=== PATIENT | male | born 1955 | race Caucasian/White ===

== ENCOUNTER 2019-11-06 08:37 | Emergency (ER) | payer SELFPAY ==
[2019-11-06] MEDS ORDERED: IPRATROPIUM BROM 0.5MG/2.5ML ONE (09:12)
[2019-11-06] MEDS ORDERED: METHYLPREDNISOLONE 40 MG INJ ONE (09:12)
[2019-11-06] MEDS ORDERED: ALBUTEROL 2.5 MG/3 ML NEB SOL ONE (09:12)
[2019-11-06 09:13] LABS: Absolute Lymphocytes (CBC) 1.4 K/uL (0.7-4.9); Basophils % 0.8 % (0-1.3); Hematocrit 47.2 % (39.6-49.0); Lymphocytes % 19.1 % (15.3-44.8); MPV 7.5 fL (7.6-11.3); RBC Red Blood Cell Count 4.44 M/uL (4.33-5.43)
--- NOTE | 2019-11-06 09:26 | RAD REPORT ---
EXAM DESCRIPTION: RAD - Chest Single View - 11/06/2019 9:17 am CLINICAL HISTORY: SOB Chest pain. COMPARISON: CHEST PA AND LAT 2 VIEW dated 12/08/2010; CHEST PA AND LAT 2 VIEW dated 08/25/2004 FINDINGS: Portable technique limits examination quality. Increased left basilar lung opacities are present suspicious for infiltrate/ pneumonia. The heart is normal in size. No displaced fractures.Followup films until clear is recommended.
[2019-11-06 09:38] LABS: ALT/SGPT 23 U/L (12-78); AST/SGOT 19 U/L (15-37); Albumin 3.7 g/dL (3.4-5.0); Alkaline Phosphatase 77 U/L (45-117); BUN Blood Urea Nitrogen 6 mg/dL (7-18); Bicarbonate 28 mmol/L (21-32); Bilirubin Direct 0.2 mg/dL (0-0.2); Bilirubin Total 0.5 mg/dL (0.2-1.0); Glucose Level 93 mg/dL (74-106); Magnesium 2.2 mg/dL (1.8-2.4); NT PRO-BNP 504 pg/mL (<125); Potassium 4.1 mmol/L (3.5-5.1); Protein, Total 7.1 g/dL (6.4-8.2); Sodium Level 136 mmol/L (136-145); Troponin (Emerg Dept Use Only) < 0.02 ng/mL (0.0-0.045)
--- NOTE | 2019-11-06 11:23 | EDPHYS ---
Physician Documentation [facility] Name: Randolph Mckeon Age: 64 yrs Sex: Male : 1955 Arrival Date: 11/06/2019 Time: 08:40 Bed 5 Private MD: Bill Leal ED Physician Severo Nielsen HPI: 11/05 08:55 This 64 yrs old Male presents to ER via Ambulatory with complaints of cp Breathing Difficulty. 08:55 The patient has shortness of breath at rest, with light activity. cp 08:55 Onset: The symptoms/episode began/occurred 3 month(s) ago. cp 08:55 Duration: The symptoms are intermittent. cp 08:55 The patient's shortness of breath is aggravated by exertion. Associated signs and cp symptoms: Pertinent negatives: chest pain, productive cough, diaphoresis, fever, hemoptysis, vomiting. Severity of symptoms: in the emergency department the symptoms are unchanged despite home interventions. Historical: - Allergies: 08:52 No Known Allergies; iw - Home Meds: 08:52 None [Active]; iw - PMHx: 08:52 None; iw - PSHx: 08:52 left foot; Hernia repair; iw - Immunization history:: Adult Immunizations not up to date. - Social history:: Smoking status: Patient reports the use of cigarette tobacco products, smokes one pack cigarettes per day. ROS: 09:00 Constitutional: Negative for body aches, chills, fever, poor PO intake. cp 09:00 Eyes: Negative for injury, pain, redness, and discharge. cp 09:00 Cardiovascular: Negative for chest pain, edema, palpitations. cp 09:00 Respiratory: Positive for shortness of breath, at rest. Negative for cough, hemoptysis, wheezing. 09:00 ENT: Negative for drainage from ear(s), ear pain, sore throat, difficulty swallowing, cp difficulty handling secretions. 09:00 Abdomen/GI: Negative for abdominal pain, nausea, vomiting, and diarrhea, constipation, black/tarry stool, rectal bleeding. 09:00 Back: Negative for pain at rest, pain with movement, radiated pain. 09:00 : Negative for urinary symptoms. 09:00 Skin: Negative for rash. 09:00 Neuro: Negative for altered mental status, dizziness, headache, syncope, weakness. 09:00 All other systems are negative. Exam: 09:05 Constitutional: The patient appears in no acute distress, alert, awake, cp non-diaphoretic, non-toxic, well developed, well nourished. 09:05 Head/Face: Normocephalic, atraumatic. cp 09:05 Eyes: Periorbital structures: appear normal, Conjunctiva: normal, no exudate, no injection, Sclera: no appreciated abnormality, Lids and lashes: appear normal, bilaterally. 09:05 ENT: External ear(s): are unremarkable, Ear canal(s): are normal, clear, TM's: bulging, is not appreciated, bilaterally, dullness, bilaterally, erythema, is not appreciated, bilaterally, Nose: is normal, Mouth: Lips: moist, Oral mucosa: moist, Posterior pharynx: is normal, airway is patent, no erythema, no exudate. 09:05 Neck: ROM/movement: is normal, is supple, without pain, no range of motions limitations, no nuchal rigidity. 09:05 Chest/axilla: Inspection: normal, Palpation: is normal, no crepitus, no tenderness. 09:05 Cardiovascular: Rate: normal, Rhythm: regular, Heart sounds: murmur, not appreciated, Edema: is not appreciated, JVD: is not appreciated. 09:05 Respiratory: the patient does not display signs of respiratory distress, Respirations: normal, no use of accessory muscles, no retractions, labored breathing, is not present, Breath sounds: decreased breath sounds, that are mild, throughout, stridor, is not appreciated, wheezing: that is mild, is heard diffusely. 09:05 Abdomen/GI: Inspection: abdomen appears normal, Palpation: abdomen is soft and non-tender, in all quadrants. 09:05 Back: pain, is absent, ROM is normal. 09:05 Skin: no rash present. 09:05 Neuro: Orientation: to person, place \T\ time. Mentation: is normal, Cerebellar function: is grossly normal, Motor: moves all fours, strength is normal, Sensation: is normal. 10:13 ECG was reviewed by the Attending Physician. cp Vital Signs: 08:50 BP 174 / 95; Pulse 97; Resp 18 S; Temp 98.2; Pulse Ox 100% on R/A; Weight 81.65 kg; iw Height 5 ft. 11 in. (180.34 cm); Pain 0/10; 09:33 BP 168 / 94; Pulse 92; Resp 16; Pulse Ox 96% on R/A; hb 10:10 BP 163 / 91; Pulse 95; Resp 18; Pulse Ox 95% on R/A; bp 11:04 BP 152 / 89; Pulse 96; Resp 17; Pulse Ox 94% ; bp 11:37 BP 159 / 86; Pulse 100; Resp 17; Temp 98.5; Pulse Ox 94% ; bp 08:50 Body Mass Index 25.10 (81.65 kg, 180.34 cm) iw MDM: 08:48 Patient medically screened. cp 09:00 Differential diagnosis: asthma, Bronchitis CHF exacerbation, Chronic Obstructive cp Pulmonary Disease pneumonia, Pneumothorax pulmonary edema, Pulmonary Embolism Unstable Angina. 11:21 Data reviewed: vital signs, nurses notes, lab test result(s), EKG, radiologic studies, cp plain films, and as a result, I will discharge patient. 11:21 Test interpretation: by ED physician or midlevel provider: ECG. 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 11:21 Response to treatment: the patient's symptoms have markedly improved after treatment, cp and as a result, I will discharge patient. 11/05 08:52 Order name: Basic Metabolic Panel; Complete Time: 09:48 cp 11/05 09:48 Interpretation: Normal except: BUN 6; GFR 89. cp 11/05 08:52 Order name: CBC with Diff cp 11/05 09:48 Interpretation: Normal except: MCV 106.3; MCH 36.4; MPV 7.5. cp 11/05 08:52 Order name: LFT's; Complete Time: 09:48 cp 11/05 08:52 Order name: Magnesium; Complete Time: 09:48 cp 11/05 08:52 Order name: NT PRO-BNP; Complete Time: 09:48 cp 11/05 09:48 Interpretation: Abnormal: NT PRO-BNP 504. 11/05 08:52 Order name: Troponin (emerg Dept Use Only); Complete Time: 09:48 cp 11/05 09:48 Interpretation: TROPED < 0.02; Reviewed. 11/05 08:52 Order name: XRAY Chest (1 view); Complete Time: 09:59 cp 11/05 08:52 Order name: EKG; Complete Time: 08:53 cp 11/05 08:52 Order name: Cardiac monitoring; Complete Time: 09:04 cp 11/05 08:52 Order name: EKG - Nurse/Tech; Complete Time: 10:10 cp 11/05 08:52 Order name: IV Saline Lock; Complete Time: 09:14 cp 11/05 10:16 Order name: D-Dimer; Complete Time: 11:15 cp 11/05 11:15 Interpretation: Reviewed. 11/05 08:52 Order name: Labs collected and sent; Complete Time: 09:14 11/05 08:52 Order name: O2 Per Protocol; Complete Time: 09:04 cp 11/05 08:52 Order name: O2 Sat Monitoring; Complete Time: 09:04 cp EC:13 Rate is 93 beats/min. Rhythm is regular. TN interval is normal. QRS interval is normal. cp QT interval is normal. Interpreted by me. Reviewed by me. Administered Medications: 09:10 Drug: Albuterol - atroVENT (3:1) (2.5 mg - 0.5 mg) 3 ml Route: Nebulizer; bp 10:09 Follow up: Response: Marked relief of symptoms bp 09:10 Drug: SOLU-Medrol 80 mg Route: IVP; Site: right forearm; bp 10:09 Follow up: Response: No adverse reaction bp Disposition: 14:13 Co-signature as Attending Physician, Severo Nielsen MD. rn Disposition: 11/06/19 11:22 Discharged to Home. Impression: Shortness of breath. - Condition is Stable. - Discharge Instructions: Shortness of Breath, Aspirin and Your Heart. - Prescriptions for Prednisone 20 mg Oral Tablet - take 2 tablet by ORAL route once daily for 5 days; 10 tablet. Zithromax Z- Se 250 mg Oral Tablet - take 1 tablet by ORAL route as directed for 5 days Day 1 - take two (2) tablets one time. Day 2, 3, 4 , 5 take one (1) tablet once daily.; 6 tablet. Albuterol Sulfate 90 mcg/actuation - inhale 1-2 puff by INHALATION route every 4-6 hours; 1 Inhaler. - Medication Reconciliation Form, Thank You Letter, Antibiotic Education, Prescription Opioid Use form. - Follow up: Bill Leal MD; When: 2 - 3 days; Reason: Recheck today's complaints. - Problem is new. - Symptoms have improved. Signatures: Dispatcher [employer] EDLeela Cartwright, RN RN iw Severo Nielsen MD MD rn Eligio Thomas PA PA cp Sanchez Sweet RN RN bp Corrections: (The following items were deleted from the chart) 10:00 09:57 Test interpretation: by ED physician or midlevel provider: plain radiologic cp studies, chest xray negative for infiltrates, cp 11:39 11:22 11/06/2019 11:22 Discharged to Home. Impression: Shortness of breath. Condition bp is Stable. Forms are Medication Reconciliation Form, Thank You Letter, Antibiotic Education, Prescription Opioid Use. Follow up: Bill Leal; When: 2 - 3 days; Reason: Recheck today's complaints. Problem is new. Symptoms have improved. cp
--- NOTE | 2019-11-06 11:23 | ER ---
Nurse's Notes [facility] Name: Randolph Mckeon Age: 64 yrs Sex: Male : 1955 Arrival Date: 11/06/2019 Time: 08:40 Bed 5 Private MD: Bill Leal Diagnosis: Shortness of breath Presentation: 11/05 08:50 Chief complaint: Patient states: has had diff breathing for 3 months, smokes 1 ppd, no iw hx of COPD, +cough, no fever. Coronavirus screen: The patient has NOT traveled to a country currently being monitored by the [facility] within the last 14 days. Proceed with normal triage procedures. The patient has NOT had contact with any known and/or suspected case of coronavirus. Proceed with normal triage procedures. Ebola Screen: Patient negative for fever greater than or equal to 101.5 degrees Fahrenheit, and additional compatible Ebola Virus Disease symptoms Patient denies exposure to infectious person. Patient denies travel to an Ebola-affected area in the 21 days before illness onset. No symptoms or risks identified at this time. Initial Sepsis Screen: Does the patient meet any 2 criteria? No. Patient's initial sepsis screen is negative. Does the patient have a suspected source of infection? No. Patient's initial sepsis screen is negative. Risk Assessment: Do you want to hurt yourself or someone else? Patient reports no desire to harm self or others. 08:50 Method Of Arrival: Ambulatory iw 08:50 Acuity: YANNICK 3 iw Triage Assessment: 08:50 General: Appears in no apparent distress. comfortable, Behavior is cooperative, bp appropriate for age, anxious. Pain: Denies pain. EENT: No deficits noted. Neuro: No deficits noted. Cardiovascular: No deficits noted. Respiratory: Reports shortness of breath Airway is patent Respiratory effort is even, unlabored, Onset: The symptoms/episode began/occurred at an unknown time. the patient has mild shortness of breath. GI: No signs and/or symptoms were reported involving the gastrointestinal system. : No signs and/or symptoms were reported regarding the genitourinary system. Derm: No deficits noted. Musculoskeletal: No deficits noted. Historical: - Allergies: 08:52 No Known Allergies; iw - Home Meds: 08:52 None [Active]; iw - PMHx: 08:52 None; iw - PSHx: 08:52 left foot; Hernia repair; iw - Immunization history:: Adult Immunizations not up to date. - Social history:: Smoking status: Patient reports the use of cigarette tobacco products, smokes one pack cigarettes per day. Screenin:02 Abuse screen: Denies threats or abuse. Denies injuries from another. Nutritional hb screening: No deficits noted. Tuberculosis screening: No symptoms or risk factors identified. Fall Risk None identified. Assessment: 08:50 General: SEE TRIAGE NOTE. Cardiovascular: Rhythm is sinus rhythm. Respiratory: Airway bp is patent Respiratory effort is even, unlabored, Respiratory pattern is regular, symmetrical, Breath sounds are coarse bilaterally. 10:10 Reassessment: ALL CURRENT ORDERS COMPLETED, NO ACUTE S/S NOTED AT THIS TIME. bp 10:25 Reassessment: ADD'L LABS DRAWN AND SENT. RESULTS PENDING. bp 11:05 Reassessment: PT RESP COARSE TO AUSCULTATION. RESULTS PENDING FOR FURTHER ORDERS. bp 11:38 Reassessment: PT D/C HOME AMBULATORY WITH FAMILY, DX WITH DYSPNEA. bp Vital Signs: 08:50 BP 174 / 95; Pulse 97; Resp 18 S; Temp 98.2; Pulse Ox 100% on R/A; Weight 81.65 kg; iw Height 5 ft. 11 in. (180.34 cm); Pain 0/10; 09:33 BP 168 / 94; Pulse 92; Resp 16; Pulse Ox 96% on R/A; hb 10:10 BP 163 / 91; Pulse 95; Resp 18; Pulse Ox 95% on R/A; bp 11:04 BP 152 / 89; Pulse 96; Resp 17; Pulse Ox 94% ; bp 11:37 BP 159 / 86; Pulse 100; Resp 17; Temp 98.5; Pulse Ox 94% ; bp 08:50 Body Mass Index 25.10 (81.65 kg, 180.34 cm) iw ED Course: 08:40 Patient arrived in ED. ag5 08:40 Bill Leal MD is Private Physician. ag5 08:45 Eligio Thomas PA is PHCP. cp 08:45 Severo Nielsen MD is Attending Physician. cp 08:52 Triage completed. iw 08:52 Arm band placed on. iw 09:03 Patient has correct armband on for positive identification. Bed in low position. Call bp light in reach. Side rails up X2. 09:04 Inserted saline lock: 20 gauge in right forearm, using aseptic technique. Blood bp collected. 09:14 Sanchez Sweet, RN is Primary Nurse. bp 09:19 XRAY Chest (1 view) In Process Unspecified. EDMS 11:22 Bill Leal MD is Referral Physician. cp 11:38 No provider procedures requiring assistance completed. IV discontinued, intact, bp bleeding controlled, No redness/swelling at site. Pressure dressing applied. Administered Medications: 09:10 Drug: Albuterol - atroVENT (3:1) (2.5 mg - 0.5 mg) 3 ml Route: Nebulizer; bp 10:09 Follow up: Response: Marked relief of symptoms bp 09:10 Drug: SOLU-Medrol 80 mg Route: IVP; Site: right forearm; bp 10:09 Follow up: Response: No adverse reaction bp Outcome: 11:22 Discharge ordered by MD. cp 11:38 Discharged to home ambulatory, with family. bp 11:38 Condition: stable 11:38 Discharge instructions given to patient, family, Instructed on discharge instructions, follow up and referral plans. medication usage, benefits of quitting smoking, Demonstrated understanding of instructions, follow-up care, medications, Prescriptions given X 3. 11:39 Patient left the ED. bp Signatures: Dispatcher [employer] EDLeela Cartwright RN RN iw Page, Corey, PA PA cp Baxter, Heather, Sanchez Cordero RN, RN RN Suha Sharp ag5
[2019-11-06 11:55] VITALS: O2SAT 94
[2019-11-06 11:56] VITALS: BP 159/86; TEMP 98.5
[2019-11-06 12:11] LABS: Blood Morphology Comment NOTED (NOT SEEN); Macrocytosis 2+; Platelet Estimate ADEQ; Urine White Blood Cell Casts OK
--- NOTE | 2019-11-06 14:11 | EKG ---
Test Date: 2019-11-06 Test Time: 10:04:09 [employer] Field Supervisor: DOROTHY MEASUREMENT RESULTS: Intervals: Rate: 93 MI: 160 QRSD: 98 QT: 366 QTc: 455 [place]: P: 77 MI: 160 QRS: 55 T: 65 INTERPRETIVE STATEMENTS: Normal sinus rhythm Incomplete right bundle branch block Borderline ECG Compared to ECG 12/08/2010 12:27:02 Incomplete right bundle-branch block now present Sinus bradycardia no longer present Electronically Signed On 11-06-19 14:10:21 CDT by Tarik Mota
== END 2019-11-06 11:39 | disposition home or self-care (01) ==
LOC: ER 08:37
DX: R06.02 Shortness of breath (principal); F17.210 Nicotine dependence, cigarettes, uncomplicated
CPT/HCPCS: 36415; 71045; 80048; 80076; 83735; 83880; 84484; 85025; 85379; 93005; 94640; 96374; 99285; J2920

== ENCOUNTER 2019-11-27 08:46 | Emergency (ER) | payer SELFPAY ==
[2019-11-27] MEDS ORDERED: ALBUTEROL 2.5 MG/3 ML NEB SOL ONE (09:09)
[2019-11-27] MEDS ORDERED: IPRATROPIUM BROM 0.5MG/2.5ML ONE (09:09)
[2019-11-27] MEDS ORDERED: METHYLPREDNISOLONE 125 MG INJ ONE (09:09)
[2019-11-27 09:29] LABS: Basophils % 0.5 % (0-1.3); Hematocrit 47.6 % (39.6-49.0); MPV 7.5 fL (7.6-11.3); RBC Red Blood Cell Count 4.55 M/uL (4.33-5.43)
[2019-11-27 09:31] LABS: Protime INR 0.97
--- NOTE | 2019-11-27 09:34 | RAD REPORT ---
EXAM DESCRIPTION: RAD - Chest Single View - 11/27/2019 9:23 am CLINICAL HISTORY: SOB Chest pain. COMPARISON: Chest Single View dated 11/06/2019; CHEST PA AND LAT 2 VIEW dated 12/08/2010; CHEST PA AND LAT 2 VIEW dated 08/25/2004 FINDINGS: Portable technique limits examination quality. Emphysematous changes are present. No focal infiltrate detected. The heart is normal in size. No disp laced fractures. IMPRESSION: Emphysema.
[2019-11-27 09:47] LABS: ALT/SGPT 23 U/L (12-78); AST/SGOT 12 U/L (15-37); Albumin 3.8 g/dL (3.4-5.0); Alkaline Phosphatase 74 U/L (45-117); BUN Blood Urea Nitrogen 6 mg/dL (7-18); Bicarbonate 33 mmol/L (21-32); Bilirubin Direct 0.1 mg/dL (0-0.2); Bilirubin Total 0.4 mg/dL (0.2-1.0); Glucose Level 111 mg/dL (74-106); Magnesium 1.9 mg/dL (1.8-2.4); NT PRO-BNP 262 pg/mL (<125); Potassium 4.7 mmol/L (3.5-5.1); Protein, Total 6.8 g/dL (6.4-8.2); Sodium Level 138 mmol/L (136-145); Troponin (Emerg Dept Use Only) < 0.02 ng/mL (0.0-0.045)
[2019-11-27] MEDS ORDERED: LEVALBUTEROL 1.25 MG/3 ML NEB ONE (11:34)
--- NOTE | 2019-11-27 11:54 | EDPHYS ---
Physician Documentation [facility] Name: Randolph Mckeon Age: 64 yrs Sex: Male : 1955 Arrival Date: 11/27/2019 Time: 08:47 Bed 20 Private MD: Bill Leal ED Physician Eligio Amador HPI: 11/26 09:06 This 64 yrs old Male presents to ER via Wheelchair with complaints of pm1 Shortness Of Breath. 09:06 The patient has shortness of breath with light activity. Onset: The symptoms/episode pm1 began/occurred 4 month(s) ago. Duration: The symptoms are continuous, and are unchanged since they started, Was seen here on 11/06/2019 and reports that he feels about the same since then. Followed up with his PCP Dr. Cooper and was prescribed blood pressure medications. Has an inhaler but has not been using it. 09:06 Associated signs and symptoms: Pertinent positives: non-productive cough, Pertinent pm1 negatives: chest pain, diaphoresis, dizziness, fever, nausea, vomiting. Severity of symptoms: in the emergency department the symptoms are unchanged Pain is currently a 0 / 10. Historical: - Allergies: 09:00 No Known Allergies; ph - PMHx: 09:00 Hypertension; COPD; ph - Immunization history:: Adult Immunizations unknown. - Social history:: Smoking status: Patient reports the use of cigarette tobacco products, smokes one pack cigarettes per day. ROS: 09:31 Constitutional: Negative for fever, chills, and weight loss, ENT: Negative for injury, pm1 pain, and discharge, Neck: Negative for injury, pain, and swelling, Cardiovascular: Negative for chest pain, palpitations, and edema. 09:31 Abdomen/GI: Negative for abdominal pain, nausea, vomiting, diarrhea, and constipation, Back: Negative for injury and pain, MS/Extremity: Negative for injury and deformity, Skin: Negative for injury, rash, and discoloration, Neuro: Negative for headache, weakness, numbness, tingling, and seizure. 09:31 Respiratory: Positive for cough, shortness of breath, Negative for sputum production. 09:31 All other systems are negative. Exam: 09:31 Constitutional: This is a well developed, well nourished patient who is awake, alert, pm1 and in no acute distress. Head/Face: Normocephalic, atraumatic. Neck: Trachea midline, no thyromegaly or masses palpated, and no cervical lymphadenopathy. Supple, full range of motion without nuchal rigidity, or vertebral point tenderness. No Meningismus. Chest/axilla: Normal chest wall appearance and motion. Nontender with no deformity. No lesions are appreciated. Cardiovascular: Regular rate and rhythm with a normal S1 and S2. No gallops, murmurs, or rubs. Normal PMI, no JVD. No pulse deficits. 09:31 Abdomen/GI: Soft, non-tender, with normal bowel sounds. No distension or tympany. No guarding or rebound. No evidence of tenderness throughout. Back: No spinal tenderness. No costovertebral tenderness. Full range of motion. Skin: Warm, dry with normal turgor. Normal color with no rashes, no lesions, and no evidence of cellulitis. MS/ Extremity: Pulses equal, no cyanosis. Neurovascular intact. Full, normal range of motion. 09:31 Respiratory: the patient does not display signs of respiratory distress, Respirations: no acute changes, is not noted, Breath sounds: wheezin:31 Neuro: Exam negative for acute changes, Orientation: is normal, Mentation: is normal, Motor: is normal, moves all fours. Vital Signs: 08:54 BP 192 / 104; Pulse 95; Resp 28; Temp 97.4; Pulse Ox 98% on R/A; Weight 88.45 kg; ph Height 5 ft. 11 in. (180.34 cm); Pain 0/10; 10:00 BP 178 / 109; Pulse 86; Resp 24; Pulse Ox 97% on R/A; ph 11:00 BP 195 / 104; Pulse 100; Resp 24; Pulse Ox 96% on R/A; ph 12:00 BP 179 / 108; Pulse 106; Resp 23; Temp 97.8; Pulse Ox 97% on R/A; ph 08:54 Body Mass Index 27.20 (88.45 kg, 180.34 cm) ph 11:00 pt states that he did not take BP medication this morning ph MDM: 08:50 Patient medically screened. pm1 10:15 Data reviewed: vital signs. pm1 11:25 Data interpreted: Pulse oximetry: on room air is 98 %. Interpretation: normal. pm1 11:51 ED course: Patient without pneumonia that was present in prior ER visit. Patient pm1 symptoms improved with breathing treatment and steroids in the ER. Therefore will discharge the patient to follow up with PCP and infirmary attendant . 11:51 Counseling: I had a detailed discussion with the patient and/or guardian regarding: the pm1 historical points, exam findings, and any diagnostic results supporting the discharge/admit diagnosis, lab results, radiology results, the need for outpatient follow up, for definitive care, a infirmary attendant, to return to the emergency department if symptoms worsen or persist or if there are any questions or concerns that arise at home. 11/26 08:58 Order name: Basic Metabolic Panel; Complete Time: 09:49 pm1 11/26 08:58 Order name: CBC with Diff; Complete Time: 09:30 pm1 11/26 08:58 Order name: LFT's; Complete Time: 09:49 pm1 11/26 08:58 Order name: Magnesium; Complete Time: 09:49 pm1 11/26 08:58 Order name: NT PRO-BNP; Complete Time: 09:49 pm1 11/26 08:58 Order name: PT-INR; Complete Time: 09:35 pm1 11/26 08:58 Order name: Troponin (emerg Dept Use Only); Complete Time: 09:49 pm1 11/26 08:58 Order name: XRAY Chest (1 view); Complete Time: 09:35 pm1 11/26 08:58 Order name: EKG; Complete Time: 08:58 pm1 11/26 09:31 Order name: Procalcitonin; Complete Time: 10:59 pm1 11/26 09:31 Order name: Lactate; Complete Time: 10:53 pm1 11/26 08:58 Order name: Cardiac monitoring; Complete Time: 09:11 pm1 11/26 08:58 Order name: EKG - Nurse/Tech; Complete Time: 09:19 pm1 11/26 08:58 Order name: IV Saline Lock; Complete Time: 09:11 pm1 11/26 08:58 Order name: Labs collected and sent; Complete Time: 09:11 pm1 11/26 08:58 Order name: O2 Per Protocol; Complete Time: 09:11 pm1 11/26 08:58 Order name: O2 Sat Monitoring; Complete Time: 09:11 pm1 Administered Medications: 09:10 Drug: SOLU-Medrol 125 mg Route: IVP; Site: right antecubital; ph 10:00 Follow up: Response: No adverse reaction ph 09:37 Drug: Albuterol - atroVENT (3:1) (2.5 mg - 0.5 mg) 3 ml Route: Nebulizer; ph 10:00 Follow up: Response: No adverse reaction ph 11:34 Drug: Xopenex 1.25 mg Route: Inhalation; ph 12:00 Follow up: Response: No adverse reaction ph Disposition: 13:21 Co-signature as Attending Physician, Eligio Amador MD I agree with the assessment and [facility] plan of care. 13:21 Co-signature as Attending Physician, Eligio Amador MD I agree with the assessment and [facility] plan of care. Disposition: 11/27/19 11:53 Discharged to Home. Impression: Chronic obstructive pulmonary disease with (acute) exacerbation - emphysema. - Condition is Stable. - Discharge Instructions: Chronic Obstructive Pulmonary Disease Exacerbation. - Prescriptions for Prednisone 20 mg Oral Tablet - take 3 tablet by ORAL route once daily for 5 days; 15 tablet. Zithromax Z- Se 250 mg Oral Tablet - take 1 tablet by ORAL route as directed for 5 days Day 1 - take two (2) tablets one time. Day 2, 3, 4 , 5 take one (1) tablet once daily.; 6 tablet. Albuterol Sulfate 90 mcg/actuation - inhale 1-2 puff by INHALATION route every 4-6 hours; 1 Inhaler. - Work release form, Medication Reconciliation Form, Thank You Letter, Antibiotic Education, Prescription Opioid Use form. - Follow up: Cooper Holt; When: 2 - 3 days; Reason: Recheck today's complaints, Continuance of care, Re-evaluation by your physician. - Problem is new. - Symptoms have improved. Signatures: Dispatcher [employer] EDEligio Angel MD MD cha Hall, Patricia, RN RN ph Dev Leger, HU DEALERSHIP MANAGER pm1 Corrections: (The following items were deleted from the chart) 12:47 11:53 11/27/2019 11:53 Discharged to Home. Impression: Chronic obstructive pulmonary ph disease with (acute) exacerbation - emphysema. Condition is Stable. Discharge Instructions: Chronic Obstructive Pulmonary Disease Exacerbation. Prescriptions for Prednisone 20 mg Oral Tablet - take 3 tablet by ORAL route once daily for 5 days; 15 tablet, Zithromax Z-Se 250 mg Oral Tablet - take 1 tablet by ORAL route as directed for 5 days Day 1 - take two (2) tablets one time. Day 2, 3, 4 , 5 take one (1) tablet once daily.; 6 tablet, Albuterol Sulfate 90 mcg/actuation - inhale 1-2 puff by INHALATION route every 4-6 hours; 1 Inhaler. and Forms are Medication Reconciliation Form, Thank You Letter, Antibiotic Education, Prescription Opioid Use. Follow up: Cooper Holt; When: 2 - 3 days; Reason: Recheck today's complaints, Continuance of care, Re-evaluation by your physician. Problem is new. Symptoms have improved. pm1
--- NOTE | 2019-11-27 11:54 | ER ---
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 Coronavirus screen: Patient reports a cough. Patient reports shortness of breath or difficulty breathing. Patient denies measured and/or subjective temperature greater than 100.4F prior to today's visit. Patient denies travel on a cruise ship or to a country the [facility] currently lists as an affected area. Patient denies contact with known and/or suspected case of COVID-19. Ebola Screen: No symptoms or risks identified at this time. Initial Sepsis Screen: Does the patient meet any 2 criteria? Does the patient have a suspected source of infection? Yes: Productive cough/pneumonia. Risk Assessment: Do you want to hurt yourself or someone else? Patient reports no desire to harm self or others. Onset of symptoms was November 27, 2019. 08:54 Method Of Arrival: Wheelchair ph 08:54 Acuity: YANNICK 2 ph Triage Assessment: 14:17 Respiratory: ph Historical: - Allergies: 09:00 No Known Allergies; ph - PMHx: 09:00 Hypertension; COPD; ph - Immunization history:: Adult Immunizations unknown. - Social history:: Smoking status: Patient reports the use of cigarette tobacco products, smokes one pack cigarettes per day. Screenin:01 Abuse screen: Denies threats or abuse. Denies injuries from another. Nutritional ph screening: No deficits noted. Tuberculosis screening: No symptoms or risk factors identified. Fall Risk None identified. Assessment: 09:30 General: Appears in no apparent distress. uncomfortable, Behavior is calm, cooperative, ph appropriate for age, Denies fever, chills. Pain: Denies pain. Neuro: Level of Consciousness is awake, alert, obeys commands, Oriented to person, place, time, situation. Cardiovascular: Rhythm is sinus rhythm. Respiratory: Reports shortness of breath at rest Airway is patent Respiratory effort is with nasal flaring, using tripod position, Respiratory pattern is tachypnea Breath sounds with wheezes in mediastinum, right upper lobe and left upper lobe. GI: No signs and/or symptoms were reported involving the gastrointestinal system. Derm: Skin is intact, Skin is diaphoretic, Skin is flushed. Musculoskeletal: Circulation, motion, and sensation intact. Range of motion: intact in all extremities. 10:30 Reassessment: Patient appears in no apparent distress at this time. Patient and/or ph family updated on plan of care and expected duration. Pain level reassessed. 11:30 Reassessment: Patient appears in no apparent distress at this time. Patient and/or ph family updated on plan of care and expected duration. Pain level reassessed. Pt reports that SOB has slightly improved, wheezing noted to have improved, pt remains tachypneic. 12:30 Reassessment: Patient appears in no apparent distress at this time. No changes from ph previously documented assessment. Patient and/or family updated on plan of care and expected duration. Pain level reassessed. Pt remains tachypneic but states that he feels okay going home, instructed pt to return to ED if symptoms worsen and to follow up w/ it telecom technician. Vital Signs: 08:54 BP 192 / 104; Pulse 95; Resp 28; Temp 97.4; Pulse Ox 98% on R/A; Weight 88.45 kg; ph Height 5 ft. 11 in. (180.34 cm); Pain 0/10; 10:00 BP 178 / 109; Pulse 86; Resp 24; Pulse Ox 97% on R/A; ph 11:00 BP 195 / 104; Pulse 100; Resp 24; Pulse Ox 96% on R/A; ph 12:00 BP 179 / 108; Pulse 106; Resp 23; Temp 97.8; Pulse Ox 97% on R/A; ph 08:54 Body Mass Index 27.20 (88.45 kg, 180.34 cm) ph 11:00 pt states that he did not take BP medication this morning ED Course: 08:47 Patient arrived in ED. mr 08:47 Bill Leal MD is Private Physician. mr 08:50 Marinas, Dev, PALLETISER OPERATOR is PHCP. pm1 08:50 Eligio Amador MD is Attending Physician. pm1 08:54 Akilah Rivers RN is Primary Nurse. ph 08:59 Triage completed. ph 09:01 Arm band placed on Patient placed in an exam room. ph 09:01 Patient has correct armband on for positive identification. Placed in gown. Bed in low ph position. Call light in reach. Side rails up X 1. Pulse ox on. NIBP on. Door closed. Noise minimized. 09:11 Initial lab(s) drawn, by me, sent to lab. Inserted saline lock: 18 gauge in right dh3 forearm, using aseptic technique. Blood collected. 09:24 XRAY Chest (1 view) In Process Unspecified. EDMS 11:53 Cooper Holt MD is Referral Physician. pm1 12:45 No provider procedures requiring assistance completed. IV discontinued, intact, ph bleeding controlled, No redness/swelling at site. Pressure dressing applied. Administered Medications: 09:10 Drug: SOLU-Medrol 125 mg Route: IVP; Site: right antecubital; ph 10:00 Follow up: Response: No adverse reaction ph 09:37 Drug: Albuterol - atroVENT (3:1) (2.5 mg - 0.5 mg) 3 ml Route: Nebulizer; ph 10:00 Follow up: Response: No adverse reaction ph 11:34 Drug: Xopenex 1.25 mg Route: Inhalation; ph 12:00 Follow up: Response: No adverse reaction ph Outcome: 11:53 Discharge ordered by MD. pm1 12:47 Patient left the ED. ph 12:47 Discharged to home ambulatory. ph 12:47 Condition: improved 12:47 Discharge instructions given to patient, Instructed on discharge instructions, follow up and referral plans. medication usage, Demonstrated understanding of instructions, follow-up care, medications, Prescriptions given X 3. Signatures: Dispatcher [employer] EDDE Nidhi Díaz Akilah Rivers, SAMEER RN ph Dev Leger, HU PALLETISER OPERATOR pm1 Lydia Pretty 3 Corrections: (The following items were deleted from the chart) 14:15 12:30 Reassessment: Patient appears in no apparent distress at this time. No changes ph from previously documented assessment. Patient and/or family updated on plan of care and expected duration. Pain level reassessed. ph
[2019-11-27 13:32] VITALS: BP 192/104; TEMP 97.4; O2SAT 98
--- NOTE | 2019-11-27 16:48 | EKG ---
Test Date: 2019-11-27 Test Time: 09:23:59 Container Maker: PH MEASUREMENT RESULTS: Intervals: Rate: 86 IA: 168 QRSD: 82 QT: 368 QTc: 440 [place]: P: 75 IA: 168 QRS: 56 T: 36 INTERPRETIVE STATEMENTS: Normal sinus rhythm Possible Left atrial enlargement Borderline ECG Compared to ECG 11/06/2019 10:04:09 Incomplete right bundle-branch block no longer present Electronically Signed On 11-27-19 16:47:18 CDT by John Marie
== END 2019-11-27 12:47 | disposition home or self-care (01) ==
LOC: ER 08:46
DX: J43.9 Emphysema, unspecified (principal); I10 Essential (primary) hypertension; F17.210 Nicotine dependence, cigarettes, uncomplicated
CPT/HCPCS: 36415; 71045; 80048; 80076; 83605; 83735; 83880; 84145; 84484; 85025; 85610; 93005; 94640; 96374; 99285; J2930

== ENCOUNTER 2020-10-26 16:06 | Inpatient (IN) | payer BC, SELFPAY ==
--- NOTE | 2020-10-26 17:09 | EDPHYS ---
Physician Documentation [facility] Name: Randolph Mkceon Age: 65 yrs Sex: Male : 1955 Arrival Date: 10/26/2020 Time: 16:06 Bed 8 Private MD: ED Physician Eligio Amador HPI: 10/26 16:45 This 65 yrs old Male presents to ER via EMS with complaints of Breathing kamar Difficulty. 16:45 The patient has shortness of breath at rest, with light activity. Onset: The kamar symptoms/episode began/occurred 2 day(s) ago. Duration: The symptoms are continuous, and are steadily getting worse. The patient's shortness of breath is aggravated by coughing, exertion, light activity, supine position. Associated signs and symptoms: Pertinent positives: non-productive cough, dizziness. Severity of symptoms: At their worst the symptoms were moderate in the emergency department the symptoms are unchanged. The patient has not experienced similar symptoms in the past. Historical: - Allergies: 16:21 No Known Allergies; bp - Home Meds: 16:21 Unable to obtain [Active]; bp - PMHx: 16:21 COPD; Hypertension; bp - Immunization history:: Adult Immunizations up to date. - Social history:: Smoking status: Patient denies any tobacco usage or history of. - Family history:: not pertinent. ROS: 16:45 Constitutional: Negative for fever, chills, and weight loss, Eyes: Negative for injury, kamar pain, redness, and discharge, ENT: Negative for injury, pain, and discharge, Neck: Negative for injury, pain, and swelling, Cardiovascular: Negative for chest pain, palpitations, and edema, Abdomen/GI: Negative for abdominal pain, nausea, vomiting, diarrhea, and constipation, Back: Negative for injury and pain, : Negative for injury, bleeding, discharge, and swelling, Skin: Negative for injury, rash, and discoloration, Neuro: Negative for headache, weakness, numbness, tingling, and seizure, Psych: Negative for depression, anxiety, suicide ideation, homicidal ideation, and hallucinations, Allergy/Immunology: Negative for hives, rash, and allergies, Endocrine: Negative for neck swelling, polydipsia, polyuria, polyphagia, and marked weight changes, Hematologic/Lymphatic: Negative for swollen nodes, abnormal bleeding, and unusual bruising. 16:45 Respiratory: Positive for cough, shortness of breath, at rest. wheezing, inspiratory, expiratory. Exam: 16:45 Constitutional: This is a well developed, well nourished patient who is awake, alert, kamar and in no acute distress. Head/Face: Normocephalic, atraumatic. Eyes: Pupils equal round and reactive to light, extra-ocular motions intact. Lids and lashes normal. Conjunctiva and sclera are non-icteric and not injected. Cornea within normal limits. Periorbital areas with no swelling, redness, or edema. ENT: Nares patent. No nasal discharge, no septal abnormalities noted. Tympanic membranes are normal and external auditory canals are clear. Oropharynx with no redness, swelling, or masses, exudates, or evidence of obstruction, uvula midline. Mucous membranes moist. Neck: Trachea midline, no thyromegaly or masses palpated, and no cervical lymphadenopathy. Supple, full range of motion without nuchal rigidity, or vertebral point tenderness. No Meningismus. Chest/axilla: Normal chest wall appearance and motion. Nontender with no deformity. No lesions are appreciated. Cardiovascular: Regular rate and rhythm with a normal S1 and S2. No gallops, murmurs, or rubs. Normal PMI, no JVD. No pulse deficits. Abdomen/GI: Soft, non-tender, with normal bowel sounds. No distension or tympany. No guarding or rebound. No evidence of tenderness throughout. Back: No spinal tenderness. No costovertebral tenderness. Full range of motion. Male : Normal genitalia with no discharge or lesions. Skin: Warm, dry with normal turgor. Normal color with no rashes, no lesions, and no evidence of cellulitis. Neuro: Awake and alert, GCS 15, oriented to person, place, time, and situation. Cranial nerves II-XII grossly intact. Motor strength 5/5 in all extremities. Sensory grossly intact. Cerebellar exam normal. Normal gait. Psych: Awake, alert, with orientation to person, place and time. Behavior, mood, and affect are within normal limits. 16:45 Respiratory: moderate respiratory distress is noted, Respirations: labored breathing, that is mild, Breath sounds: bronchial sounds, rhonchi, wheezing: inspiratory expiratory Respiratory rate: 18 16:45 Musculoskeletal/extremity: Extremities: swelling, ROM: full active range of motion, full passive range of motion, Circulation is intact in all extremities. Sensation intact. Compartment Syndrome exam of affected extremity: is normal. Weight bearing: able to fully bear weight, DVT Exam: no pain, no tenderness, negative Homans' sign noted on exam, no appreciated bluish discoloration, no erythema, no increased warmth, swelling. 17:08 ECG was reviewed by the Attending Physician. kamar Vital Signs: 16:11 BP 171 / 100; Pulse 102; Resp 16; Temp 98.6; Pulse Ox 100% on 15% Nebulizer Mask; bp 18:15 BP 142 / 97; Pulse 96; Resp 24; Pulse Ox 97% on 3 lpm NC; bp 20:00 BP 149 / 93; Pulse 98; Resp 22; Pulse Ox 100% ; ea 21:00 BP 123 / 73; Pulse 98; Resp 22; Pulse Ox 100% ; ea 22:00 BP 131 / 94; Pulse 107; Resp 27; Pulse Ox 97% ; rv 23:00 BP 138 / 81; Pulse 96; Resp 24; Pulse Ox 100% ; ea 10/27 22:49 BP 117 / 71; Pulse 98; Resp 20; Pulse Ox 98% on 2 lpm NC; ea MDM: 03 16:23 Patient medically screened. kamar 16:49 Differential diagnosis: asthma, Bronchitis Chronic Obstructive Pulmonary Disease kamar pneumonia, Pneumothorax pulmonary edema, Pulmonary Embolism reactive airway disease, Sepsis. Antibiotic administration: Zosyn. The patient's Wells Deep Vein Thrombosis Score was calculated as follows: Heart Rate >100 BPM (1.5 Pts) Total Score: 0-2 Pts- Low Risk. The patient's pulmonary embolism risk score was calculated as follows: the patients heart rate is greater than 100 beats per minute (1.5 Pts) Total Score: 0-2 points. This patient was found to be at low risk for a pulmonary embolism by using the Well's assessment criteria. Immunization status: Influenza vaccine: Data reviewed: vital signs, nurses notes, old medical records, lab test result(s), EKG, radiologic studies, plain films. Data interpreted: night monitor: rate is 102 beats/min, Pulse oximetry: on room air is 95 %. Test interpretation: by ED physician or midlevel provider: ECG, plain radiologic studies. Counseling: I had a detailed discussion with the patient and/or guardian regarding: the historical points, exam findings, and any diagnostic results supporting the discharge/admit diagnosis, lab results, radiology results, the need for further work-up and treatment in the hospital. 10/26 16:45 Order name: Basic Metabolic Panel [facility] 10/26 16:45 Order name: CBC with Diff [facility] 10/26 16:45 Order name: LFT's; Complete Time: 19:56 [facility] 10/26 16:45 Order name: Magnesium; Complete Time: 19:56 [facility] 10/26 16:45 Order name: NT PRO-BNP; Complete Time: 19:56 [facility] 10/26 16:45 Order name: PT-INR; Complete Time: 19:56 [facility] 10/26 16:45 Order name: Troponin (emerg Dept Use Only); Complete Time: 19:56 [facility] 10/26 16:46 Order name: Basic Metabolic Panel; Complete Time: 19:56 [facility] 10/26 16:46 Order name: CBC with Automated Diff; Complete Time: 19:56 [facility] 10/26 16:47 Order name: Blood Culture [facility] 10/26 19:58 Order name: Urine Osmolality [facility] 10/26 19:58 Order name: Osmolality, Serum; Complete Time: 22:10 [facility] 10/26 19:58 Order name: Urine Sodium Random; Complete Time: 01:20 [facility] 10/26 19:58 Order name: Osmolality, Urine [facility] 10/26 20:34 Order name: Alcohol Level; Complete Time: 22:10 [facility] 10/26 20:37 Order name: Uric Acid; Complete Time: 22:10 [facility] 10/26 20:37 Order name: TSH; Complete Time: 22:10 [facility] 10/26 20:37 Order name: Cortisol; Complete Time: 22:10 [facility] 10/26 21:26 Order name: SARS-COV-2 RT PCR; Complete Time: 22:10 [facility] 10/26 22:41 Order name: BMP la1 10/26 23:43 Order name: Basic Metabolic Panel; Complete Time: 01:19 [facility] 10/27 05:42 Order name: CBC with Automated Diff [facility] 10/27 09:05 Order name: Comprehensive Metabolic Panel [facility] 10/27 09:05 Order name: Phosphorus [facility] 10/27 09:05 Order name: Lipid Profile [facility] 10/27 09:05 Order name: Magnesium [facility] 10/27 09:57 Order name: Gram Stain--Aerobic Bottle [facility] 10/27 12:24 Order name: Gram Stain--Aerobic Bottle [facility] 10/26 16:45 Order name: XRAY Chest (1 view) [facility] 10/26 16:45 Order name: EKG; Complete Time: 16:47 kamar 10/26 16:45 Order name: Cardiac monitoring; Complete Time: 17:03 kamar 10/26 16:45 Order name: EKG - Nurse/Tech; Complete Time: 17:03 kamar 10/26 16:45 Order name: IV Saline Lock; Complete Time: 18:40 kamar 10/26 16:45 Order name: Labs collected and sent; Complete Time: 18:40 kamar 10/26 16:45 Order name: O2 Per Protocol; Complete Time: 16:59 kamar 10/26 16:45 Order name: O2 Sat Monitoring; Complete Time: 16:59 kamar 10/26 16:45 Order name: IV Saline Lock - Large Bore; Complete Time: 18:38 kamar 10/26 19:13 Order name: RAD; Complete Time: 19:56 [facility] 10/26 20:17 Order name: Seizure Precautions; Complete Time: 01:20 ea 10/26 20:37 Order name: Garza; Complete Time: 23:03 kamar 10/26 21:04 Order name: Misc. Order: REPEAT BMP AT 2300; Complete Time: 01:19 la1 10/27 17:49 Order name: Urinalysis [facility] 10/27 17:49 Order name: UR SODIUM [facility] 10/27 17:49 Order name: UR POTASSIUM [facility] 10/27 18:09 Order name: Basic Metabolic Panel [facility] 10/27 18:44 Order name: Urine Microscopic Only [facility] 10/27 21:58 Order name: Gram Stain--Anaerobic Bottle ED[facility] EC:08 Rate is 98 beats/min. Rhythm is regular. QRS [place] is Normal. AK interval is normal. QRS kamar interval is normal. QT interval is normal. No Q waves. T waves are Normal. No ST changes noted. Clinical impression: Abnormal EKG without significant change and No evidence of ischemia. Administered Medications: 18:34 Drug: NS 0.9% 1000 ml Route: IV; Rate: 75 ml/hr; Site: right forearm; ca1 22:29 Follow up: IV Status: Infusion continued ea 18:35 Drug: SOLU-Medrol 125 mg Route: IVP; Site: right forearm; ca1 22:30 Follow up: Response: No adverse reaction ea 18:39 Drug: Xopenex 3.75 mg Route: Inhalation; ca1 18:39 Drug: AtroVENT Aerosol 0.5 mg Route: Inhalation; ca1 18:39 Drug: Zosyn 3.375 grams Route: IVPB; Infused Over: 60 mins; Site: right forearm; ca1 22:29 Follow up: Response: No adverse reaction; IV Status: Completed infusion ea 20:23 Not Given (Duplicate Order): Banana Bag - (NS 0.9% 1000 ml, foLIC Acid 1 mg, Thiamine kamar 100 mg, Multivitamin 1 amp) IV at calculated rate once 20:52 Drug: NS 0.9% 500 ml Route: IV; Rate: bolus; Site: left hand; ea 22:29 Follow up: Response: No adverse reaction; IV Status: Completed infusion; IV Intake: ea 500ml 20:52 Drug: Thiamine 100 mg Route: IV; Rate: 1 bolus; Site: left hand; ea 22:29 Follow up: IV Status: Completed infusion ea 20:52 Drug: Banana Bag - (NS 0.9% 1000 ml, foLIC Acid 1 mg, Thiamine 100 mg, Multivitamin 1 ea amp) Route: IV; Rate: 100 ml/hr; Site: left hand; 22:29 Follow up: Response: No adverse reaction; IV Status: Completed infusion ea 21:15 Drug: Xopenex 2.5 mg Route: Inhalation; rv Disposition: 10/26/20 17:08 Hospitalization ordered by Chandler Nielsen for Inpatient Admission. Preliminary diagnosis are Chronic obstructive pulmonary disease with (acute) exacerbation, Tobacco abuse counseling, Tobacco use, Hypo-osmolality and hyponatremia, Alcohol abuse, Hyperkalemia. - Bed requested for Telemetry/MedSurg (Inpatient). - Status is Inpatient Admission. ea - Condition is Fair. - Problem is new. - Symptoms have improved. Signatures: Dispatcher [employer] EDMS Eligio Amador MD MD cha Attema, Lee, THIRD COOK-C THIRD COOK-Cla1 Cheryle Razo, RN SAMEER cg Sangeeta Mane RN RN ea Peltier, Brian RN Rogerio Hunt RN RN rv Shanice Agarwal RN RN ca1 Corrections: (The following items were deleted from the chart) 20:27 17:08 Hospitalization Ordered by Chandler Nielsen MD for Inpatient Admission. Preliminary kamar diagnosis is Chronic obstructive pulmonary disease with (acute) exacerbation; Tobacco abuse counseling; Tobacco use. Bed requested for Telemetry/MedSurg (Inpatient). Status is Inpatient Admission. Condition is Fair. Problem is new. Symptoms have improved. kamar 20:33 16:47 BLOOD CULTURE*+[id number].BRZ ordered. [facility] EDMS 20:47 20:27 10/26/2020 17:08 Hospitalization Ordered by Chandler Nielsen MD for Inpatient kamar Admission. Preliminary diagnosis is Chronic obstructive pulmonary disease with (acute) exacerbation; Tobacco abuse counseling; Tobacco use; Hypo-osmolality and hyponatremia; Alcohol abuse. Bed requested for Telemetry/MedSurg (Inpatient). Status is Inpatient Admission. Condition is Fair. Problem is new. Symptoms have improved. [facility] 22:50 20:47 10/26/2020 17:08 Hospitalization Ordered by Chandler Nielsen MD for Inpatient cg Admission. Preliminary diagnosis is Chronic obstructive pulmonary disease with (acute) exacerbation; Tobacco abuse counseling; Tobacco use; Hypo-osmolality and hyponatremia; Alcohol abuse; Hyperkalemia. Bed requested for Intensive Care Unit. Status is Inpatient Admission. Condition is Fair. Problem is new. Symptoms have improved. kamar 10/27 22:06 03 22:50 10/26/2020 17:08 Hospitalization Ordered by Chandler Nielsen MD for Inpatient cg Admission. Preliminary diagnosis is Chronic obstructive pulmonary disease with (acute) exacerbation; Tobacco abuse counseling; Tobacco use; Hypo-osmolality and hyponatremia; Alcohol abuse; Hyperkalemia. Bed requested for [facility] ER HOLD. Status is Inpatient Admission. Condition is Fair. Problem is new. Symptoms have improved. 10/27 22:50 22:06 10/26/2020 17:08 Hospitalization Ordered by Chandler Nielsen MD for Inpatient ea Admission. Preliminary diagnosis is Chronic obstructive pulmonary disease with (acute) exacerbation; Tobacco abuse counseling; Tobacco use; Hypo-osmolality and hyponatremia; Alcohol abuse; Hyperkalemia. Bed requested for Telemetry/MedSurg (Inpatient). Status is Inpatient Admission. Condition is Fair. Problem is new. Symptoms have improved. cg
--- NOTE | 2020-10-26 17:09 | ER ---
Nurse's Notes [facility] Name: Randolph Mckeon Age: 65 yrs Sex: Male : 1955 Arrival Date: 10/26/2020 Time: 16:06 Bed 8 Private MD: Diagnosis: Chronic obstructive pulmonary disease with (acute) exacerbation;Tobacco abuse counseling;Tobacco use;Hypo-osmolality and hyponatremia;Alcohol abuse;Hyperkalemia Presentation: 10/26 16:11 Chief complaint: EMS states: SOB. Coronavirus screen: At this time, the client does not bp indicate any symptoms associated with coronavirus-19. Ebola Screen: No symptoms or risks identified at this time. Initial Sepsis Screen: Does the patient meet any 2 criteria? No. Patient's initial sepsis screen is negative. Does the patient have a suspected source of infection? Yes: Productive cough/pneumonia. Risk Assessment: Do you want to hurt yourself or someone else? Patient reports no desire to harm self or others. Onset of symptoms is unknown. 16:11 Method Of Arrival: EMS: [facility] bp 16:11 Acuity: YANNICK 2 bp 16:11 Care prior to arrival: Medication(s) given: Albuterol Neb x 2. bp Triage Assessment: 16:11 General: Appears distressed, uncomfortable, unkempt, Behavior is cooperative, bp appropriate for age, anxious. Pain: Denies pain. EENT: No deficits noted. Neuro: Level of Consciousness is awake, alert, obeys commands, Oriented to person, place, time, situation, Appropriate for age. Cardiovascular: No deficits noted. Respiratory: Reports shortness of breath at rest Onset: The symptoms/episode began/occurred at an unknown time. the patient has moderate shortness of breath. GI: No signs and/or symptoms were reported involving the gastrointestinal system. : No signs and/or symptoms were reported regarding the genitourinary system. Derm: No deficits noted. Musculoskeletal: Swelling present in right leg and left leg. Historical: - Allergies: 16:21 No Known Allergies; bp - Home Meds: 16:21 Unable to obtain [Active]; bp - PMHx: 16:21 COPD; Hypertension; bp - Immunization history:: Adult Immunizations up to date. - Social history:: Smoking status: Patient denies any tobacco usage or history of. - Family history:: not pertinent. Screenin:30 Abuse screen: Denies threats or abuse. Denies injuries from another. Nutritional bp screening: No deficits noted. Tuberculosis screening: No symptoms or risk factors identified. Fall Risk None identified. Assessment: 16:15 General: SEE TRIAGE NOTE. bp 18:15 Cardiovascular: Rhythm is sinus rhythm. Respiratory: Airway is patent Respiratory bp effort is labored, Breath sounds with crackles bilaterally. 19:50 General: Appears in no apparent distress. Behavior is cooperative, quiet. Pain: Denies ea pain. Neuro: Level of Consciousness is obeys commands, Oriented to person. Cardiovascular: Patient's skin is warm and dry. 19:50 General: Appears unkempt. Respiratory: Airway is patent Respiratory effort is even, ea labored, Respiratory pattern is tachypnea. Derm: Skin is pink, warm \T\ dry. 21:50 Reassessment: Patient and/or family updated on plan of care and expected duration. Pain ea level reassessed. 23:24 Reassessment: Patient and/or family updated on plan of care and expected duration. Pain ea level reassessed. Pt resting with eyes closed, respirations even, tachypneic. Pt arouses with loud verbal stimulus. 10/27 22:47 Reassessment: Patient and/or family updated on plan of care and expected duration. Pain ea level reassessed. Patient is alert, oriented x 3, equal unlabored respirations, skin warm/dry/pink. Report called to receiving nurse. Pt admitted to second floor, pt left ED via stretcher per desktop technician. Pt tolerating well. Vital Signs: 10/26 16:11 BP 171 / 100; Pulse 102; Resp 16; Temp 98.6; Pulse Ox 100% on 15% Nebulizer Mask; bp 18:15 BP 142 / 97; Pulse 96; Resp 24; Pulse Ox 97% on 3 lpm NC; bp 20:00 BP 149 / 93; Pulse 98; Resp 22; Pulse Ox 100% ; ea 21:00 BP 123 / 73; Pulse 98; Resp 22; Pulse Ox 100% ; ea 22:00 BP 131 / 94; Pulse 107; Resp 27; Pulse Ox 97% ; rv 23:00 BP 138 / 81; Pulse 96; Resp 24; Pulse Ox 100% ; ea 10/27 22:49 BP 117 / 71; Pulse 98; Resp 20; Pulse Ox 98% on 2 lpm NC; ea ED Course: 10/26 16:06 Patient arrived in ED. am2 16:11 Sanchez Sweet, SAEMER is Primary Nurse. bp 16:11 Arm band placed on. bp 16:18 Triage completed. bp 16:23 Eligio Amador MD is Attending Physician. kamar 17:07 Chandler Nielsen MD is Hospitalizing Provider. kamar 18:29 Inserted saline lock: 20 gauge in right forearm, using aseptic technique. Blood mt collected. 18:30 Patient has correct armband on for positive identification. Bed in low position. Call bp light in reach. Side rails up X2. 18:30 First set of blood cultures drawn by me. mt 23:24 Patient admitted, IV remains in place. ea 23:24 No provider procedures requiring assistance completed. ea Administered Medications: 18:34 Drug: NS 0.9% 1000 ml Route: IV; Rate: 75 ml/hr; Site: right forearm; ca1 22:29 Follow up: IV Status: Infusion continued ea 18:35 Drug: SOLU-Medrol 125 mg Route: IVP; Site: right forearm; ca1 22:30 Follow up: Response: No adverse reaction ea 18:39 Drug: Xopenex 3.75 mg Route: Inhalation; ca1 18:39 Drug: AtroVENT Aerosol 0.5 mg Route: Inhalation; ca1 18:39 Drug: Zosyn 3.375 grams Route: IVPB; Infused Over: 60 mins; Site: right forearm; ca1 22:29 Follow up: Response: No adverse reaction; IV Status: Completed infusion ea 20:23 Not Given (Duplicate Order): Banana Bag - (NS 0.9% 1000 ml, foLIC Acid 1 mg, Thiamine kamar 100 mg, Multivitamin 1 amp) IV at calculated rate once 20:52 Drug: NS 0.9% 500 ml Route: IV; Rate: bolus; Site: left hand; ea 22:29 Follow up: Response: No adverse reaction; IV Status: Completed infusion; IV Intake: ea 500ml 20:52 Drug: Thiamine 100 mg Route: IV; Rate: 1 bolus; Site: left hand; ea 22:29 Follow up: IV Status: Completed infusion ea 20:52 Drug: Banana Bag - (NS 0.9% 1000 ml, foLIC Acid 1 mg, Thiamine 100 mg, Multivitamin 1 ea amp) Route: IV; Rate: 100 ml/hr; Site: left hand; 22:29 Follow up: Response: No adverse reaction; IV Status: Completed infusion ea 21:15 Drug: Xopenex 2.5 mg Route: Inhalation; rv Intake: 22:29 IV: 500ml; Total: 500ml. ea Outcome: 17:08 Decision to Hospitalize by Provider. kamar 23:24 Admitted to ER Hold. Please see [facility] for further documentation. ea 23:24 Condition: stable 23:24 Instructed on the need for admit. 10/27 22:50 Patient left the ED. ea Signatures: Robert Hines, RN RN Eligio Boo MD MD cha Moreno, Amanda am2 Thompson AleSangeeta Treviño mt RN RN Sanchez Salazar, RN RN Rogerio Rose, RN RN rv Shanice Agarwal RN RN ca1 Corrections: (The following items were deleted from the chart) 10/26 18:39 18:38 Inserted saline lock: 20 gauge in right forearm, using aseptic technique. Blood mt collected. mt 23:06 20:21 Patient : Time of 20:19 Pronounced by Eligio swan ea 23:28 21:00 BP 138 / 81; Pulse 96bpm; Resp 24bpm; Pulse Ox 100%; ea ea
[2020-10-26] MEDS ORDERED: IPRATROPIUM BROM 0.5MG/2.5ML ONE (18:43)
[2020-10-26] MEDS ORDERED: METHYLPREDNISOLONE 125 MG INJ ONE (18:43)
[2020-10-26] MEDS ORDERED: PIPER/TAZO/NS 3.375gm 3.375 GM/100 ML BAG ONE (18:43)
[2020-10-26] MEDS ORDERED: NA CHLORIDE 0.9% 1,000 ML ONE ×2 (18:43→20:42)
[2020-10-26] MEDS ORDERED: LEVALBUTEROL 1.25 MG/3 ML NEB ONE ×2 (18:43→21:32)
[2020-10-26 18:47] LABS: Absolute Lymphocytes (CBC) 0.5 K/uL (0.7-4.9); Basophils % 0.2 % (0-1.3); Hematocrit 48.2 % (39.6-49.0); MPV 7.7 fL (7.6-11.3); RBC Red Blood Cell Count 4.72 M/uL (4.33-5.43)
[2020-10-26 18:57] LABS: Protime INR 0.97
--- NOTE | 2020-10-26 19:12 | RAD REPORT ---
EXAM DESCRIPTION: RAD - Chest Single View - 10/26/2020 6:55 pm CLINICAL HISTORY: Cough;COPD COMPARISON: AP chest November 2019 TECHNIQUE: AP portable chest image was obtained 10/26/2020 6:55 pm . FINDINGS: Lung volumes are low. No peripheral mass or consolidation. Interstitial pattern is accentu ated by low lung volumes. No significant failure or volume overload. Heart and vasculature are normal . No measurable pleural effusion and no pneumothorax. No acute bony abnormality seen. No acute aortic finding. Air density below the right hemidiaphragm on 1 of the two views is believed to be colonic i nterposition between the liver and diaphragm. IMPRESSION: Limited portable study without acute cardiopulmonary finding. 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 No history that would indicate abdominal symptoms.
[2020-10-26 19:14] LABS: ALT/SGPT 47 U/L (12-78); Albumin 3.2 g/dL (3.4-5.0); Alkaline Phosphatase 92 U/L (45-117); BUN Blood Urea Nitrogen 5 mg/dL (7-18); Bicarbonate 32 mmol/L (21-32); Bilirubin Direct 0.4 mg/dL (0-0.2); Bilirubin Total 1.1 mg/dL (0.2-1.0); Glucose Level 109 mg/dL (74-106); NT PRO-BNP 2043 pg/mL (<125); Troponin (Emerg Dept Use Only) < 0.02 ng/mL (0.0-0.045)
[2020-10-26 19:16] LABS: AST/SGOT 60 U/L (15-37); Potassium 5.2 mmol/L (3.5-5.1)
[2020-10-26 19:17] LABS: Magnesium 1.9 mg/dL (1.8-2.4); Sodium Level 114 mmol/L (136-145)
[2020-10-26] MEDS ORDERED: MULTIVITAMINS 10 ML VIAL (INJ) IV ONE (20:42)
[2020-10-26] MEDS ORDERED: THIAMINE 200 MG/2 ML INJ ONE (20:42)
[2020-10-26] MEDS ORDERED: NA CHLORIDE 0.9% 500 ML ONE (20:42)
[2020-10-26] MEDS ORDERED: FOLIC ACID 5 MG/ML VIAL ONE (20:43)
[2020-10-26 21:40] LABS: Thyroid Stimulating Hormone 0.983 uIU/mL (0.360-3.740)
--- NOTE | 2020-10-26 22:18 | P.HP ---
Certification for Inpatient Patient admitted to: Inpatient With expected LOS: >2 Midnights Patient will require the following post-hospital care: None Practitioner: I am a practitioner with admitting privileges, knowledge of patient current condition, hospital course, and medical plan of care. Services: Services provided to patient in accordance with Admission requirements found in Title 42 Section 412.3 of the Code of Federal Regulations <Rob Cooper - Last Filed: 10/26/20 22:13> Patient History Date of Service: 10/26/20 Primary Care Provider: Dr. Leal Reason for admission: Hypontaremia, COPD exacerbation History of Present Illness: 65-year-old male with history of hypertension, COPD, alcohol abuse presents emergency room for shortness of breath. Patient reports increasing shortness of breath over the course of the last few days. At home the patient takes trilogy for his COPD, reports that he used to be on amlodipine but is not taking his medication for last few months. Patient also admits to drinking daily averaging approximately 1 box of wine every day or 2. Patient evaluated in the emergency department found to be significantly dyspneic, tachypneic with expiratory wheezing refractory to initial steroids, breathing treatments. Labs significant for sodium 114 potassium 5.2, chloride 77 serum osmolality 248 LFTs AST mildly elevated to 60 BNP 2043 chest x-ray significant for low lung volumes without significant overload pattern due to the significant hyponatremia case was discussed with nephrology while patient is in the emergency department recommended continuation of banana bag at 100 cc/hour and repeat BMP in 3 hr, this is currently pending. Due to significant hyponatremia, risk for alcohol withdrawal with seizures patient be admitted to the ICU for close monitoring. 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 - Family History Family History: Reviewed- Non-Contributory - Social History Smoking Status: Current every day smoker Counseled patient to stop smoking for: less than 10 minutes Smoking therapy provided: Yes Alcohol use: Yes CD- Drugs: No Caffeine use: Yes Place of Residence: Home <Rob Cooper - Last Filed: 10/26/20 22:13> Date of Service: 10/27/20 <Chandler Nielsen - Last Filed: 10/27/20 12:18> Review of Systems 10-point ROS is otherwise unremarkable Respiratory: Cough, Shortness of Breath, SOB with Excertion, Sputum, Wheezing, As per HPI <Rob Cooper - Last Filed: 10/26/20 22:13> Physical Examination - Physical Exam General: Alert, In no apparent distress, Oriented x3 HEENT: Atraumatic, PERRLA, Other, EOMI, Sclerae nonicteric Neck: Supple, 2+ carotid pulse no bruit, No LAD, Without JVD or thyroid abnormality Respiratory: Other (Dyspnea, tachypnea, expiratory wheezing) Cardiovascular: Regular rate/rhythm, Normal S1 S2 Gastrointestinal: Normal bowel sounds, No tenderness Musculoskeletal: No tenderness Integumentary: No rashes Neurological: Normal speech, Normal strength at 5/5 x4 extr, Normal tone, Normal affect - Studies Laboratory Data (last 24 hrs) 10/26/20 18:30: Uric Acid 3.0 L 10/26/20 18:30: PT 11.2, INR 0.97 10/26/20 18:30: WBC 7.50, Hgb 16.4, Hct 48.2, Plt Count 156 10/26/20 18:30: Sodium 114 L*, Potassium 5.2 H, BUN 5 L, Creatinine 0.64, Glucose 109 H, Magnesium 1.9, Total Bilirubin 1.1 H, AST 60 H, ALT 47, Alkaline Phosphatase 92 <Rob Cooper - Last Filed: 10/26/20 22:13> - Studies Laboratory Data (last 24 hrs) 10/26/20 18:30: Uric Acid 3.0 L 10/26/20 18:30: PT 11.2, INR 0.97 10/26/20 18:30: WBC 7.50, Hgb 16.4, Hct 48.2, Plt Count 156 10/26/20 18:30: Sodium 114 L*, Potassium 5.2 H, BUN 5 L, Creatinine 0.64, Glucose 109 H, Magnesium 1.9, Total Bilirubin 1.1 H, AST 60 H, ALT 47, Alkaline Phosphatase 92 <Chandler Nielsen - Last Filed: 10/27/20 12:18> Assessment and Plan - Plan Assessment Dyspnea secondary to COPD exacerbation Hyponatremia likely secondary to alcohol abuse Alcohol abuse Hypertension Tobacco abuse Plan Dyspnea secondary to COPD exacerbation: Continue with IV steroids, scheduled nebs, inhalers. Blood cultures obtained in the emergency department will follow up on these. Patient currently not requiring any supplemental oxygen, will check daily room air saturations. DVT prophylaxis Lovenox 40 mg subcutaneous once daily. Hyponatremia likely secondary to alcohol abuse: Case discussed with nephrology, continue with banana bag at 100 cc/hour at this time, repeat chemistry at 11:00 p.m. and will call nephrology with results for further instructions. Likely related to alcohol abuse and also likely chronic in nature. Appreciate further input from nephrology. Alcohol abuse: Patient reports drinking significant amount of wine daily, will continue with alcohol withdrawal scale q.4h p.r.n., p.r.n. Ativan. Patient reports he is not drinking in the past and does not have any withdrawal symptoms, provide schedule Ativan if patient begins to experience symptoms of alcohol withdrawal. Hypertension: Continue with Norvasc 10 mg p.o. daily. Tobacco abuse: Discussed need for tobacco cessation, provide patient with Nicoderm patch. Discharge Plan: Home Plan to discharge in: 72 Hours - Advance Directives Does patient have a Living Will: No Does patient have a Durable POA for Healthcare: No - Code Status/Comfort Care Code Status Assessed: Yes (Full code) Time Spent Managing Pts Care (In Minutes): 55 <Rob Cooper - Last Filed: 10/26/20 22:13> - Plan Plan of care reviewed as noted above by Rob Cooper. acute hypoxemic respiratory failure secondary to acute on chronic COPD exacerbation monitor for alcohol withdrawal <Chandler Nielsen - Last Filed: 10/27/20 12:18>
[2020-10-26 23:31] LABS: BUN Blood Urea Nitrogen 5 mg/dL (7-18); Bicarbonate 31 mmol/L (21-32); Glucose Level 132 mg/dL (74-106)
[2020-10-26 23:42] LABS: Potassium 4.4 mmol/L (3.5-5.1); Sodium Level 117 mmol/L (136-145)
[2020-10-26 23:45] VITALS: BMI 50.8
[2020-10-26] MEDS ORDERED: ONDANSETRON 4 MG/2 ML VIAL IV PRN (23:54)
[2020-10-26] MEDS ORDERED: LORazepam 2 MG/ML VIAL IV PRN (23:54)
[2020-10-26] MEDS ORDERED: FLUMAZENIL 0.1 MG/ML (5 mL VIAL) IV PRN (23:54)
[2020-10-27] MEDS ORDERED: IPRATROPIUM BROM 0.5MG/2.5ML ONE ×4 (00:42→14:45)
[2020-10-27] MEDS ORDERED: METHYLPREDNISOLONE 40 MG INJ ONE ×2 (00:43→09:06)
[2020-10-27] MEDS: IPRATROPIUM BROM 0.5MG/2.5ML NEB SCH ×4 (01:00→20:00)
[2020-10-27] MEDS: ALBUTEROL 2.5 MG/3 ML NEB SOL NEB SCH ×4 (01:00→20:00)
[2020-10-27] MEDS: METHYLPREDNISOLONE 40 MG INJ IV SCH ×3 (01:00→17:00)
[2020-10-27] MEDS ORDERED: ALBUTEROL 2.5 MG/3 ML NEB SOL ONE ×3 (01:10→14:45)
[2020-10-27 05:38] LABS: Absolute Lymphocytes (CBC) 0.1 K/uL (0.7-4.9); Basophils % 0.5 % (0-1.3); Hematocrit 44.6 % (39.6-49.0); Lymphocytes % 2.5 % (15.3-44.8); MPV 7.9 fL (7.6-11.3); RBC Red Blood Cell Count 4.29 M/uL (4.33-5.43)
[2020-10-27] MEDS: AMLODIPINE 10 MG TAB PO SCH (09:00)
[2020-10-27] MEDS: NICOTINE 21 MG/PAT TD SCH (09:00)
[2020-10-27] MEDS: FOLIC ACID 1 MG, MULTIVITAMINS INJ 10 ML, THIAMINE HCL 100 MG in NA CHLORIDE 0.9% 1,000 ML IV SCH (09:00)
[2020-10-27] MEDS: ENOXAPARIN 40 MG/0.4 ML SQ SCH (09:00)
[2020-10-27 09:05] LABS: ALT/SGPT 43 U/L (12-78); AST/SGOT 46 U/L (15-37); Albumin 2.9 g/dL (3.4-5.0); Alkaline Phosphatase 79 U/L (45-117); BUN Blood Urea Nitrogen 6 mg/dL (7-18); Bicarbonate 30 mmol/L (21-32); Bilirubin Total 0.7 mg/dL (0.2-1.0); Glucose Level 124 mg/dL (74-106); HDL Cholesterol 91 mg/dL (40-60); LDL Cholesterol, Calculated 18 (<130); Magnesium 1.9 mg/dL (1.8-2.4); Phosphorus 2.7 mg/dL (2.5-4.9); Potassium 4.4 mmol/L (3.5-5.1); Protein, Total 5.4 g/dL (6.4-8.2); Sodium Level 122 mmol/L (136-145)
[2020-10-27] MEDS ORDERED: NICOTINE 21 MG/PAT TD ONE (09:05)
[2020-10-27] MEDS ORDERED: AMLODIPINE 10 MG TAB ONE (09:05)
[2020-10-27] MEDS ORDERED: ENOXAPARIN 40 MG/0.4 ML SQ ONE (09:06)
[2020-10-27] MEDS ORDERED: MAGNESIUM SULFATE 1 gm IVPB 1 GM/100 ML BAG IV ONE ×2 (11:00→11:35)
[2020-10-27] MEDS: D5W 1,000 ML IV SCH (11:00)
--- NOTE | 2020-10-27 11:28 | CON ---
Date of Consultation: 10/27/2020 Additional Consulting Physician: Mr. Rivas, Nurse Practitioner. Reason For Consultation: Hyponatremia. History Of Present Illness: This is a pleasant 65-year-old gentleman with significant past medical h istory of COPD, hypertension, seizure, the patient came to the hospital because of altered mental sta tus and shortness of breath. Primary workup for the patient found to have COPD exacerbation and the patient also found to have hyponatremia. For that reason, we have been consulted. Upon presentation , sodium was 114. The patient was started on IV fluid, rates to 122. The patient apparently used to be on diuretic, has been stopped more than 2 months. The patient did not take any of his blood pres sure medications for almost a few weeks. The patient also mentioned that he used to have seizures, a dmitted to [facility] before for that, but never has been place on seizure medications . Reviewing the record for the patient back in November 2019, sodium within normal limits 138. The pat ient's workup; TSH within normal limits, urine sodium was on the lower side and uric acid 2. The pat ient admits that he is drinking 1 box of wine every 2-3 days. The patient denied taking any nonsteroidal. As I mentioned, no blood pressure medication or diuretic for at least a few weeks. Past Medical History: Includes; 1.COPD. 2.Hypertension. 3.Seizure. 4.Alcohol abuse. Past Surgical History: Includes hernia repair. Family History: Positive for hypertension. Social History: Active smoker, active alcohol. Denied drugs abuse. Review of Systems: Head and Neck: No red eye. No ear pain. GI: No nausea. No vomiting. : No polyuria. No dysuria. No hematuria. Department Traffic Freight Router: Not applicable. Respiratory: Has shortness of breath. Has cough. Cardiovascular: No chest pain. Endocrine: No polydipsia. Skin: No rash. Neuro: Has seizure history, no activity currently. Musculoskeletal: Generalized fatigue and weakness. Physical Examination: Vital Signs: When I saw the patient; blood pressure 152/87, earlier it was 108/61, pulse 105, afebri le. The patient had good urine output. Chest: Faint crackles bilateral. Heart: S1, S2. Regular. Abdomen: Soft, nontender. Extremities: No edema. Neurological: Alert, oriented x3. No focal. Laboratory Data: Back in November 2019; sodium 138. Yesterday, October 26 at 6 o'clock; sodium 114, potas sium 5.2, chloride 77, bicarb 32, BUN 5, creatinine 0.6, calcium 8.2, lactic acid 1.7, uric acid of 3 . Serum osmolality 248. Albumin 3.2. Then after at 10 o'clock, which was after 4 hours; sodium 117 , potassium 4.4, chloride 80, BUN 5, creatinine 0.6, calcium 7.6. Today in the morning around 8 o'cl ock, which is in the period of 14 hours; sodium 122, potassium 4.4, chloride 85, bicarb 30, BUN 6, cr eatinine 0.7, calcium 8. TSH 0.9, cortisol level 51. Urinalysis; urine osmolality 493, urine sodium of 30. Current Medications: The patient on include flumazenil, amlodipine 10, lorazepam, Zofran, banana bag . Assessment And Plan: 1.Hyponatremia secondary to beer potomania. Supported with low uric acid, low sodium in the urine. Acceptable correction on the last 14 hours. We need to slow it down to prevent the over correction for the patient. I am going to go ahead and change IV fluid to D5 at 50 mL and normal saline of 50 t o slow the correction. We will repeat lab in 6 hours from now. 2.Adrenal insufficiency/hypothyroidism has been ruled out. 3.Hypertension. I agree with amlodipine. We will follow up. 4.Seizure, stable. We will request the record. 5.Hypomagnesemia. We will supplement. Thank you Mr. Rivas for allowing us to participate in the care of your patient. Time spent examining the patient [id number], discussing with the patient, discussing with [facility] and ER with hospitalist 75 minutes. RIGO Voice ID: [id number] Report ID: [id number]
[2020-10-27] MEDS ORDERED: D5W 1,000 ML IV ONE (11:34)
--- NOTE | 2020-10-27 12:24 | P.PN ---
Subjective Date of Service: 10/27/20 Primary Care Provider: Dr. Leal Chief Complaint: Hypontaremia, COPD exacerbation Subjective: Improving (feeling slightly better, still with some SOB, wheezing, hypoxic) Review of Systems 10-point ROS is otherwise unremarkable Physical Examination - Vital Signs Temperature: 97.8 F Blood Pressure: 152/87 Pulse: 105 Respirations: 16 Pulse Ox (%): 95 - Studies Laboratory Data (last 24 hrs) 10/26/20 18:30: Uric Acid 3.0 L 10/26/20 18:30: PT 11.2, INR 0.97 10/26/20 18:30: WBC 7.50, Hgb 16.4, Hct 48.2, Plt Count 156 10/26/20 18:30: Sodium 114 L*, Potassium 5.2 H, BUN 5 L, Creatinine 0.64, Glucose 109 H, Magnesium 1.9, Total Bilirubin 1.1 H, AST 60 H, ALT 47, Alkaline Phosphatase 92 Assessment & Plan Physician Review Additional Text: Physical Exam General: alert, NAD HEENT: normal conjunctiva, sclera anicteric Pulm: mild labored breathing, diffuse expiratory wheeze CV: RRR, no murmur Abd: soft, NTND Ext: no rash, no edema Problem List: acute hypoxic rsspiratory failure secondary to acute on chronic COPD exacerbation Hyponatremia likely secondary to alcohol abuse Alcohol abuse Hypertension Tobacco abuse -continue IV steroids, nebs, inhalers. f/u cultures. daily room air sats. -nephrology consulted for assistance with hyponatremia - had normal sodium last year - on banana bag @100cc/hr -monitor for alcohol withdrawal - he stated he doesn't get withdrawal symptoms -continue home medications as appropriate -nicotine patch ordered -wean O2 as tolerated VTE: lovenox Code: full Dispo: anticipate dc home in ~2days Time Spent Managing Pts Care (In Minutes): 35
[2020-10-27] MEDS ORDERED: METHYLPREDNISOLONE 125 MG INJ ONE (17:32)
[2020-10-27 17:46] LABS: Urine Appearance CLEAR; Urine Bilirubin NEGATIVE (NEG); Urine Blood 3+ (NEG); Urine Color YELLOW; Urine Glucose TRACE (NEG); Urine Protein NEGATIVE (NEG); Urine Urobilinogen 0.2 mg/dL (0.2-1.0); Urine pH 6.5 (5.0-7.0)
[2020-10-27 17:49] LABS: Urine Microscopic Reflex ORDER UMIC
[2020-10-27 18:09] LABS: BUN Blood Urea Nitrogen 8 mg/dL (7-18); Bicarbonate 29 mmol/L (21-32); Glucose Level 168 mg/dL (74-106); Potassium 4.8 mmol/L (3.5-5.1); Sodium Level 124 mmol/L (136-145)
[2020-10-27 18:44] LABS: Urine Bacteria 20-50 /HPF (NONE SEEN)
[2020-10-28] MEDS: METHYLPREDNISOLONE 40 MG INJ IV SCH ×3 (00:39→17:00)
[2020-10-28] MEDS: IPRATROPIUM BROM 0.5MG/2.5ML NEB SCH ×4 (00:45→19:35)
[2020-10-28] MEDS: ALBUTEROL 2.5 MG/3 ML NEB SOL NEB SCH ×4 (00:45→19:35)
[2020-10-28 04:38] LABS: Absolute Lymphocytes (CBC) 0.2 K/uL (0.7-4.9); Basophils % 0.2 % (0-1.3); Hematocrit 45.6 % (39.6-49.0); Lymphocytes % 3.3 % (15.3-44.8); MPV 7.5 fL (7.6-11.3); RBC Red Blood Cell Count 4.34 M/uL (4.33-5.43)
[2020-10-28 04:53] LABS: ALT/SGPT 43 U/L (12-78); AST/SGOT 43 U/L (15-37); Albumin 3.1 g/dL (3.4-5.0); Alkaline Phosphatase 69 U/L (45-117); BUN Blood Urea Nitrogen 7 mg/dL (7-18); Bicarbonate 37 mmol/L (21-32); Bilirubin Total 0.5 mg/dL (0.2-1.0); Glucose Level 141 mg/dL (74-106); Magnesium 2.6 mg/dL (1.8-2.4); Phosphorus 2.6 mg/dL (2.5-4.9); Potassium 4.6 mmol/L (3.5-5.1); Sodium Level 131 mmol/L (136-145)
[2020-10-28] MEDS: D5W 1,000 ML IV SCH ×3 (05:41→17:31)
[2020-10-28 06:53] LABS: Blood Morphology Comment NOTED (NOT SEEN); Macrocytosis 1+; Platelet Estimate DECR
[2020-10-28] MEDS: FOLIC ACID 1 MG, MULTIVITAMINS INJ 10 ML, THIAMINE HCL 100 MG in NA CHLORIDE 0.9% 1,000 ML IV SCH (09:00)
[2020-10-28] MEDS: NICOTINE 21 MG/PAT TD SCH (11:33)
[2020-10-28] MEDS: ENOXAPARIN 40 MG/0.4 ML SQ SCH (11:33)
[2020-10-28] MEDS: AMLODIPINE 10 MG TAB PO SCH (11:34)
[2020-10-28 11:45] LABS: BUN Blood Urea Nitrogen 7 mg/dL (7-18); Bicarbonate 39 mmol/L (21-32); Glucose Level 122 mg/dL (74-106); Potassium 4.3 mmol/L (3.5-5.1); Sodium Level 132 mmol/L (136-145)
[2020-10-28] MEDS ORDERED: TAMSULOSIN 0.4 MG SR CAP PO ONE (12:14)
--- NOTE | 2020-10-28 12:16 | P.PN ---
Subjective Date of Service: 10/28/20 Primary Care Provider: Dr. Leal Chief Complaint: Hypontaremia, COPD exacerbation Subjective: Improving (feels he is breathing more comfortably, still with wheeze and unsteadiness with walking) Review of Systems 10-point ROS is otherwise unremarkable Physical Examination - Vital Signs Temperature: 98.4 F Blood Pressure: 152/71 Pulse: 91 Respirations: 18 Pulse Ox (%): 94 Assessment & Plan Physician Review Additional Text: Physical Exam General: alert, NAD HEENT: normal conjunctiva, sclera anicteric Pulm: mild labored breathing, diffuse expiratory wheeze, on 2L NC CV: RRR, no murmur Abd: soft, NTND Ext: no rash, trace edema villa in place Problem List: acute hypoxic rsspiratory failure secondary to acute on chronic COPD exacerbation Hyponatremia likely secondary to alcohol abuse Alcohol abuse Hypertension Tobacco abuse -continue IV steroids, nebs, inhalers. f/u cultures. daily room air sats. pulm consulted -nephrology consulted for assistance with hyponatremia - had normal sodium last year - on D5 now -monitor for alcohol withdrawal - he stated he doesn't get withdrawal symptoms -nicotine patch ordered -wean O2 as tolerated -patient not very forthcoming with past medical history / medications -does endorse some urinary symptoms - issues with starting/stopping stream, incontinence at times - over past few months, stopped taking a medication "a long time ago", unsure of what name -villa placed in ED, start flomax 3/8 - void trial possibly tomorrow VTE: lovenox Code: full Dispo: anticipate dc home in ~1-2days Time Spent Managing Pts Care (In Minutes): 35
[2020-10-28] MEDS ORDERED: INFLUENZA VACCINE (for 3y+) 0.5 ML DOSE IMVAC ONE (15:00)
--- NOTE | 2020-10-28 17:02 | P.CNS ---
Date of Consult: 10/28/20 Primary Care Provider: Dr. Leal Chief Complaint: Hypontaremia, COPD exacerbation History of Present Illness: patient is a cyst 65 years of age with a history of hypertension COPD alcohol abuse admitted to the hospital with progressive dyspnea the past 2-3 days he drinks a box of wine a week is compliant with his trilogy he is doing much better hypernatremia has been corrected patient is hypoxic continues to smoke Allergies No Known Allergies Allergy (Unverified 10/26/20 23:41) Home Medications: Albuterol Inhaler [Ventolin Inhaler] 2 puff IH Q6H PRN 10/28/20 Amlodipine [Norvasc] 10 mg PO DAILY 10/28/20 Fluticasone/Umeclidin/Vilanter [Trelegy Ellipta 100-62.5-25] 1 each IH DAILY 10/28/20 Prednisone [Sterapred Ds] 10 mg PO DAILY 10/28/20 Triamterene 37.5 mg PO DAILY 10/28/20 - Past Medical/Surgical History -: COPD -: Hypertension -: Alcohol abuse -: Hernia repair Psychosocial/ Personal History: 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 - Social History Smoking Status: Current every day smoker Alcohol use: Yes CD- Drugs: No Caffeine use: Yes Place of Residence: Home Review of Systems General: Weakness Respiratory: Shortness of Breath Physical Examination Temp Pulse Resp BP Pulse Ox 98.3 F 92 H 18 145/69 H 94 10/28/20 16:00 10/28/20 16:00 10/28/20 16:00 10/28/20 16:00 10/28/20 16:00 General: Alert, Oriented x3 Respiratory: Expiratory wheezes Cardiovascular: Regular rate/rhythm - Problems (1) COPD exacerbation Current Visit: Yes Status: Acute Plan: patient is 65 years of age with a history of COPD admitted with an exacerbation is still continues to smoke admitted with hyponatremia which is resolved vital signs stable patient is hypoxic is to continue with the trilogy at prednisone (2) Alcohol abuse Current Visit: Yes Status: Acute Plan: patient admitted with hypernatremia and S resolved continues to smoke and drink excessively no significant changes on his chest x-ray
--- NOTE | 2020-10-28 22:46 | PN ---
Date of Progress Note: 10/28/2020 Chief Complaint: Hyponatremia. History Of Present Illness: The patient is a 65-year-old man with past medical history of COPD, hypertension, seizure. The patient is admitted to the hospital for COPD exacerbation. He was found to have severe hyponatremia. Upon presentation, sodium level was 114. The patient subsequently was started on IV fluids and sodium level raised to 122. Recently, sodium stabilized and the patient was switched to hypotonic fluids to prevent overly rapid correction. Review of Systems: The patient is complaining of cough. Denies wheezing. Physical Examination: Lungs: Diminished breath sounds at bases. Heart: S1, S2. Abdomen: Soft, benign. Extremities: No edema. Impression And Plan: 1. Hypernatremia, hypoosmolar, multifactorial. The patient has beer potomania. The patient will continue fluid with IV infusion. Plan is to monitor electrolytes and adjust specific treatment. Workup is initiated to rule out adrenal insufficiency. 2. Hypertension. Continue amlodipine. 3. Hypomagnesemia. Continue supplementation. CHELO/NORA Voice ID: [id number] Report ID: [id number] MTDD
[2020-10-28 22:47] LABS: BUN Blood Urea Nitrogen 9 mg/dL (7-18); Bicarbonate 37 mmol/L (21-32); Glucose Level 140 mg/dL (74-106); Potassium 4.6 mmol/L (3.5-5.1); Sodium Level 127 mmol/L (136-145)
[2020-10-28] MEDS ORDERED: NA CHLORIDE 0.9% 1,000 ML IV SCH (23:45)
[2020-10-29] MEDS: METHYLPREDNISOLONE 40 MG INJ IV SCH ×3 (00:30→17:14)
[2020-10-29] MEDS: ALBUTEROL 2.5 MG/3 ML NEB SOL NEB SCH ×4 (02:15→19:52)
[2020-10-29] MEDS: IPRATROPIUM BROM 0.5MG/2.5ML NEB SCH ×4 (02:15→19:52)
[2020-10-29 06:34] LABS: Absolute Lymphocytes (CBC) 0.2 K/uL (0.7-4.9); Basophils % 0.1 % (0-1.3); Hematocrit 41.3 % (39.6-49.0); Lymphocytes % 4.2 % (15.3-44.8); MPV 7.5 fL (7.6-11.3); RBC Red Blood Cell Count 3.96 M/uL (4.33-5.43)
[2020-10-29 07:21] LABS: ALT/SGPT 48 U/L (12-78); AST/SGOT 39 U/L (15-37); Albumin 2.8 g/dL (3.4-5.0); Alkaline Phosphatase 56 U/L (45-117); BUN Blood Urea Nitrogen 8 mg/dL (7-18); Bicarbonate 37 mmol/L (21-32); Bilirubin Total 0.4 mg/dL (0.2-1.0); Glucose Level 132 mg/dL (74-106); Magnesium 2.4 mg/dL (1.8-2.4); Phosphorus 3.1 mg/dL (2.5-4.9); Potassium 4.4 mmol/L (3.5-5.1); Protein, Total 5.5 g/dL (6.4-8.2); Sodium Level 131 mmol/L (136-145)
[2020-10-29] MEDS: HOME MED 1 EA UNK (Fluticasone/Umeclidin/Vilanter [Trelegy Ellipta 100-62.5-25] Blst.W.Dev IH SCH (09:00)
[2020-10-29] MEDS: FOLIC ACID 1 MG, MULTIVITAMINS INJ 10 ML, THIAMINE HCL 100 MG in NA CHLORIDE 0.9% 1,000 ML IV SCH (09:00)
[2020-10-29] MEDS ORDERED: AMLODIPINE 10 MG TAB PO SCH (09:00)
[2020-10-29] MEDS: ENOXAPARIN 40 MG/0.4 ML SQ SCH (09:11)
[2020-10-29] MEDS: AMLODIPINE 10 MG TAB PO SCH (09:12)
[2020-10-29] MEDS: TAMSULOSIN 0.4 MG SR CAP PO SCH (09:12)
[2020-10-29] MEDS: NICOTINE 21 MG/PAT TD SCH (09:13)
[2020-10-29] MEDS ORDERED: NA CHLORIDE 0.9% 1,000 ML IV SCH (10:00)
[2020-10-29 12:22] LABS: Urine Appearance CLEAR; Urine Bilirubin NEGATIVE (NEG); Urine Blood 2+ (NEG); Urine Color YELLOW; Urine Glucose NEGATIVE (NEG); Urine Protein NEGATIVE (NEG); Urine Specific Gravity <=1.005 (1.005-1.030); Urine Urobilinogen 0.2 mg/dL (0.2-1.0)
[2020-10-29 12:26] LABS: Urine Microscopic Reflex ORDER UMIC
[2020-10-29 12:47] LABS: Urine Bacteria <20 /HPF (NONE SEEN); Urine RBC 20-50 /HPF (NONE SEEN)
--- NOTE | 2020-10-29 14:25 | P.PN ---
Subjective Date of Service: 10/29/20 Primary Care Provider: Dr. Leal Chief Complaint: Hypontaremia, COPD exacerbation Patient has no complain today. He is tolerating diet. He stated he ambulated in the hallway twice today. He desired to go home. Physical Examination - Vital Signs Temperature: 98.4 F Blood Pressure: 166/81 Pulse: 92 Respirations: 18 Pulse Ox (%): 95 - Physical Exam General: Alert, In no apparent distress HEENT: Mucous membr. moist/pink Neck: Supple Respiratory: Clear to auscultation bilaterally, Normal air movement Cardiovascular: No edema, Regular rate/rhythm, Normal S1 S2 Gastrointestinal: Normal bowel sounds, Soft and benign, Non-distended Musculoskeletal: No swelling, No tenderness Integumentary: No rashes Neurological: Normal strength at 5/5 x4 extr Assessment And Plan Physician Review Additional Text: Problem List: acute hypoxic rsspiratory failure secondary to acute on chronic COPD exacerbation Hyponatremia likely secondary to alcohol abuse Alcohol abuse Hypertension Tobacco abuse -continue nebs, inhalers. f/u cultures. daily room air sats. Transition to oral prednisone. -nephrology consulted for assistance with hyponatremia - sodium level improved. -monitor for alcohol withdrawal - he stated he doesn't get withdrawal symptoms -cultures are pending. -nicotine patch ordered -wean O2 as tolerated -villa placed in ED, start flomax 10/28. -Voiding trial prior to discharge. VTE: lovenox Code: full Dispo: Home with home health.
[2020-10-29 16:30] LABS: Urine Appearance CLEAR; Urine Bilirubin NEGATIVE (NEG); Urine Blood 2+ (NEG); Urine Color YELLOW; Urine Glucose TRACE (NEG); Urine Microscopic Reflex ORDER UMIC; Urine Protein NEGATIVE (NEG); Urine pH 7.5 (5.0-7.0)
[2020-10-29] MEDS: MAXZIDE (HCTZ 25/TRIAMTERENE 37.5MG) TAB PO SCH (17:13)
[2020-10-29 17:14] LABS: Urine Bacteria 20-50 /HPF (NONE SEEN); Urine RBC <5 /HPF (NONE SEEN)
--- NOTE | 2020-10-29 19:24 | PN ---
Date of Progress Note: 10/29/2020 Subjective: The patient was admitted with hyponatremia secondary to beer potomania. The patient was started on IV hydration. Sodium close to normal. The patient is feeling better. Objective: Vital Signs: Blood pressure 166/81, pulse of 92, afebrile. The patient had good urine o utput of 4500, negative of 900. Chest: Clear to auscultation. Heart: S1, S2 regular. Abdomen: Soft, nontender. Extremities: No edema. Neurologic: Alert. No focality. Laboratory Data: WBC 5.6, H and H 13.7/41.3, platelet of 137. Sodium 131, potassium 4.4, bicarb 37, BUN 8, creatinine 0.5, calcium 8.1, phosphorus 3.1, magnesium 2.4. Current Medications: The patient on include, 1.Albuterol. 2.Nicotine patch. 3.Flomax. 4.Amlodipine 10. 5.Flumazenil. 6.Breathing treatment. 7.Folic acid. 8.Solu-Medrol. Assessment And Plan: 1.Hyponatremia secondary to beer potomania, recovered, accurate correction. I am going to go ahead and discontinue normal saline. Continue banana bag. Continue fluid restriction. 2.Hypertension, not controlled. Add Inderal. 3.Alcohol intoxication, as by primary. 4.Chronic obstructive pulmonary disease with exacerbation as by Pulmonary. Time spent discussing with the patient, discussed with staff, face-to- face examining the patient, discussed with the other subspecialty including Pulmonary and hospitalist , 45 minutes. RIGO Voice ID: [id number] Report ID: [id number]
[2020-10-29] MEDS: PROPRANOLOL HCL 10 MG TAB PO SCH (21:26)
[2020-10-30] MEDS: METHYLPREDNISOLONE 40 MG INJ IV SCH ×2 (02:00→10:19)
[2020-10-30] MEDS: ALBUTEROL 2.5 MG/3 ML NEB SOL NEB SCH ×4 (02:24→19:40)
[2020-10-30] MEDS: IPRATROPIUM BROM 0.5MG/2.5ML NEB SCH ×2 (02:24→08:18)
[2020-10-30 03:37] LABS: Absolute Lymphocytes (CBC) 0.3 K/uL (0.7-4.9); Basophils % 0.1 % (0-1.3); Hematocrit 42.5 % (39.6-49.0); Lymphocytes % 5.5 % (15.3-44.8); MPV 7.1 fL (7.6-11.3)
[2020-10-30 03:45] LABS: Albumin 2.9 g/dL (3.4-5.0); BUN Blood Urea Nitrogen 12 mg/dL (7-18); Bicarbonate 37 mmol/L (21-32); Glucose Level 129 mg/dL (74-106); Phosphorus 4.5 mg/dL (2.5-4.9); Potassium 4.5 mmol/L (3.5-5.1); Sodium Level 131 mmol/L (136-145)
[2020-10-30] MEDS: FOLIC ACID 1 MG, MULTIVITAMINS INJ 10 ML, THIAMINE HCL 100 MG in NA CHLORIDE 0.9% 1,000 ML IV SCH (09:00)
[2020-10-30] MEDS: HOME MED 1 EA UNK (Fluticasone/Umeclidin/Vilanter [Trelegy Ellipta 100-62.5-25] Blst.W.Dev IH SCH (09:00)
[2020-10-30] MEDS: AMLODIPINE 10 MG TAB PO SCH (10:17)
[2020-10-30] MEDS: TAMSULOSIN 0.4 MG SR CAP PO SCH (10:18)
[2020-10-30] MEDS: PROPRANOLOL HCL 10 MG TAB PO SCH ×2 (10:18→22:14)
[2020-10-30] MEDS: MAXZIDE (HCTZ 25/TRIAMTERENE 37.5MG) TAB PO SCH (10:18)
[2020-10-30] MEDS: ENOXAPARIN 40 MG/0.4 ML SQ SCH (10:19)
[2020-10-30] MEDS: NICOTINE 21 MG/PAT TD SCH (10:21)
--- NOTE | 2020-10-30 10:49 | RAD REPORT ---
EXAM DESCRIPTION: US - Liver Only - 10/30/2020 9:52 am CLINICAL HISTORY: Alcohol liver disease Abdominal pain COMPARISON: No comparisons FINDINGS: The liver demonstrates diffuse fatty infiltration.No focal liver lesion or intrahepatic bi liary dilatation.No evidence of portal vein thrombosis. IMPRESSION: Fatty liver.
--- NOTE | 2020-10-30 11:42 | RAD REPORT ---
EXAM DESCRIPTION: RAD - Chest Single View - 10/30/2020 11:31 am CLINICAL HISTORY: COPD Chest pain. COMPARISON: Chest Single View dated 10/26/2020; Chest Single View dated 11/27/2019; Chest Single View da lata 11/06/2019; CHEST PA AND LAT 2 VIEW dated 12/08/2010; Liver Only dated 10/30/2020 FINDINGS: Portable technique limits examination quality. Left lung base is hazy likely related to a small infiltrate or pleural effusion. The lungs are otherw ise underinflated with mild vascular prominence. The heart is upper limit normal in size.
--- NOTE | 2020-10-30 12:04 | P.PN ---
Subjective Date of Service: 10/30/20 Primary Care Provider: Dr. Leal Chief Complaint: Hypontaremia, COPD exacerbation Patient has no complain today. He is tolerating diet. Patient able to stand and side stepping with physical therapy. He desaturated to 88% on room air at rest. Physical Examination - Vital Signs Temperature: 98.3 F Blood Pressure: 175/81 Pulse: 65 Respirations: 17 Pulse Ox (%): 97 - Physical Exam General: Alert, In no apparent distress HEENT: Mucous membr. moist/pink Neck: Supple Respiratory: Normal air movement, Expiratory wheezes (Bilateral) Cardiovascular: No edema, Regular rate/rhythm, Normal S1 S2 Gastrointestinal: Normal bowel sounds, Soft and benign, Non-distended, No tenderness Musculoskeletal: No swelling, No tenderness Integumentary: No rashes Neurological: Normal strength at 5/5 x4 extr, Cranial nerves 3-12 intact Assessment And Plan Physician Review Additional Text: Problem List: acute hypoxic rsspiratory failure secondary to acute on chronic COPD exacerbation Hyponatremia likely secondary to alcohol abuse Enterococcus bacteremia UTI. Alcohol abuse Hypertension Tobacco abuse -continue nebs, inhalers. f/u cultures. daily room air sats. -continue IV steroid. -nephrology consulted for assistance with hyponatremia - sodium level improved. -no symptoms or signs of alcohol withdrawal. -Blood culture: Enterococcus faecalis. -IV Levaquin -Repeat blood culture -follow urine culture result. -nicotine patch. -wean O2 as tolerated -villa placed in ED, continue flomax 10/28. Urology follow up as outpatient. -Voiding trial prior to discharge. -continue PT. VTE: lovenox Code: full Dispo: Home with home health.
--- NOTE | 2020-10-30 12:54 | P.PN ---
Subjective Date of Service: 10/30/20 Primary Care Provider: Dr. Leal Chief Complaint: Hypontaremia, COPD exacerbation Subjective: Improving (Patient is doing much better breathing has improved) Review of Systems General: Weakness Respiratory: Shortness of Breath Physical Examination - Vital Signs Temperature: 98.3 F Blood Pressure: 175/81 Pulse: 65 Respirations: 17 Pulse Ox (%): 97 - Physical Exam General: Alert, In no apparent distress, Oriented x3 Respiratory: Clear to auscultation bilaterally, Diminished Assessment & Plan - Problems (Diagnosis) (1) COPD exacerbation Current Visit: Yes Status: Acute Plan: Patient is doing much better Enterococcus bacteremia change to IV ampicillin labs reviewed hypernatremia corrected patient has a Garza catheter this could needed least 2 weeks of IV antibiotic blood pressure elevated he was placed a possible urinary retention to discuss with Urology regarding continued use of Garza catheter add Brovana change to a p.r.n. Atrovent blood pressure is still elevated (2) Alcohol abuse Current Visit: Yes Status: Acute Plan: Hypernatremia resolved
[2020-10-30] MEDS ORDERED: Levofloxacin 750mg IV 750 MG/150 ML BAG IV SCH (13:00)
[2020-10-30] MEDS: IPRATROPIUM BROM 0.5MG/2.5ML NEB PRN (13:10)
--- NOTE | 2020-10-30 13:46 | PN ---
Date of Progress Note: 10/30/2020 Subjective: The patient was admitted with hyponatremia secondary to beer potomania. The patient's a fter IV fluid kidney function stabilized, sodium normalized on the lower side. Physical Examination: Vital Signs: Blood pressure 178/81, pulse of 65, afebrile. Chest: Wheezing bilateral. Heart: S1, S2. Systolic murmur. Abdomen: Soft, nontender. Extremities: Trace edema. Neurologic: Alert. No focality. Laboratory Data: WBC 5.5, H and H 14.4/42.5. Sodium 131, potassium 4.5, bicarb 37, BUN 12, creatini ne 0.6, calcium 8.3, phosphorus 4.5. Current Medications: The patient on include Flomax, Lovenox, amlodipine 10, Inderal 10 b.i.d., loraz epam, thiamin, banana bag. Assessment And Plan: 1.Hyponatremia secondary to beer potomania. I am going to maintain the patient on current fluid and we will continue to monitor. I will get chest x-ray to evaluate the fluid status for the patient an d to decide if the patient needs a dose of Lasix. 2.Hypertension, not controlled. Yesterday, we added Inderal. I am going to start the patient on li sinopril and we will follow up. 3.Alcohol intoxication. Follow up with primary. 4.Chronic obstructive pulmonary disease exacerbation as by Pulmonary. ALEX/NORA Voice ID: [id number] Report ID: [id number]
[2020-10-30] MEDS ORDERED: AMPICILLIN SODIUM 1 GM/VIAL IVPB SCH (18:00)
[2020-10-30] MEDS: AMPICILLIN SODIUM 1 GM in NA CHLORIDE 0.9% 100 ML IVPB SCH (18:16)
[2020-10-30] MEDS: ARFORMOTEROL TARTRATE 15 MCG/2 ML VIAL.NEB NEB SCH (19:40)
[2020-10-30] MEDS: predniSONE 20 MG TAB PO SCH (22:14)
[2020-10-31] MEDS: AMPICILLIN SODIUM 1 GM in NA CHLORIDE 0.9% 100 ML IVPB SCH ×4 (01:16→16:30)
[2020-10-31] MEDS: ALBUTEROL 2.5 MG/3 ML NEB SOL NEB SCH ×4 (02:05→20:00)
[2020-10-31 03:51] LABS: Albumin 3.3 g/dL (3.4-5.0); BUN Blood Urea Nitrogen 11 mg/dL (7-18); Bicarbonate 40 mmol/L (21-32); Glucose Level 103 mg/dL (74-106); Phosphorus 3.8 mg/dL (2.5-4.9); Potassium 4.5 mmol/L (3.5-5.1); Sodium Level 131 mmol/L (136-145)
[2020-10-31] MEDS: Levofloxacin500mg IV 500 MG/100 ML BAG IV SCH (08:59)
[2020-10-31] MEDS: FOLIC ACID 1 MG, MULTIVITAMINS INJ 10 ML, THIAMINE HCL 100 MG in NA CHLORIDE 0.9% 1,000 ML IV SCH (08:59)
[2020-10-31] MEDS: HOME MED 1 EA UNK (Fluticasone/Umeclidin/Vilanter [Trelegy Ellipta 100-62.5-25] Blst.W.Dev IH SCH (09:00)
[2020-10-31] MEDS: MAXZIDE (HCTZ 25/TRIAMTERENE 37.5MG) TAB PO SCH (09:03)
[2020-10-31] MEDS: ENOXAPARIN 40 MG/0.4 ML SQ SCH (09:03)
[2020-10-31] MEDS: NICOTINE 21 MG/PAT TD SCH (09:03)
[2020-10-31] MEDS: AMLODIPINE 10 MG TAB PO SCH (09:04)
[2020-10-31] MEDS: predniSONE 20 MG TAB PO SCH ×2 (09:04→21:12)
[2020-10-31] MEDS: TAMSULOSIN 0.4 MG SR CAP PO SCH (09:04)
[2020-10-31] MEDS: lisinopriL 20 MG TAB PO SCH (09:04)
[2020-10-31] MEDS: PROPRANOLOL HCL 10 MG TAB PO SCH ×2 (09:06→21:12)
[2020-10-31] MEDS ORDERED: VANCOMYCIN/NS 1 gm 1 GM/250 ML BAG IVPB SCH (10:00)
[2020-10-31] MEDS: ARFORMOTEROL TARTRATE 15 MCG/2 ML VIAL.NEB NEB SCH ×2 (10:25→20:00)
[2020-10-31] MEDS ORDERED: VANCOMYCIN 2 GM in NA CHLORIDE 0.9% 500 ML IVPB SCH (11:00)
--- NOTE | 2020-10-31 12:03 | P.PN ---
Subjective Date of Service: 10/31/20 Primary Care Provider: Dr. Leal Chief Complaint: Hypontaremia, COPD exacerbation Patient has no complain today. He is tolerating diet. No symptoms or signs of alcohol withdrawal. Multiple Blood culture growing Staph hominis. Patient also has enterococcus ba cteremia and UTI. Physical Examination - Vital Signs Temperature: 96.8 F Blood Pressure: 139/86 Pulse: 71 Respirations: 20 Pulse Ox (%): 97 - Physical Exam General: Alert, In no apparent distress, Oriented x3 HEENT: Mucous membr. moist/pink Neck: JVD not distended Respiratory: Clear to auscultation bilaterally, Normal air movement Cardiovascular: No edema, Regular rate/rhythm, Normal S1 S2 Gastrointestinal: Soft and benign, Non-distended, No tenderness Musculoskeletal: No swelling, No tenderness Integumentary: No rashes Neurological: Normal speech, Cranial nerves 3-12 intact, Other (No focal motor deficit) - Studies Microbiology Data (last 24 hrs): 10/26/20 18:47 Blood - Blood Aerobic Blood Culture - Final Staph Hominis 10/26/20 18:47 Blood - Blood Blood Culture Gram Stain - Final 10/26/20 18:47 Blood - Blood Anaerobic Blood Culture - Final Staph Hominis 10/26/20 18:47 Blood - Blood Gram Stain - Final 10/26/20 18:30 Blood - Blood Aerobic Blood Culture - Final Staph Hominis Enterococcus Faecalis 10/26/20 18:30 Blood - Blood Blood Culture Gram Stain - Final 10/26/20 18:30 Blood - Blood Anaerobic Blood Culture - Final Staph Hominis Enterococcus Faecalis 10/26/20 18:30 Blood - Blood Gram Stain - Final Assessment And Plan Physician Review Additional Text: Problem List: acute hypoxic rsspiratory failure secondary to acute on chronic COPD exacerbation Hyponatremia likely secondary to alcohol abuse Enterococcus bacteremia Staph hominis bacteremia Enterococcus UTI Alcohol abuse Hypertension Tobacco abuse -continue nebs, inhalers. Daily room air sats. -continue IV steroid. -nephrology consulted for assistance with hyponatremia - sodium level improved. -no symptoms or signs of alcohol withdrawal. -continue IV Levaquin to cover staph hominis. IV Ampicillin to treat enterococcus. -Follow repeat blood culture. -ID consult -nicotine patch. -wean O2 as tolerated -villa placed in ED, continue flomax 3/8. Urology follow up as outpatient. -Voiding trial prior to discharge. -continue PT. VTE: lovenox Code: full Dispo: Home with home health.
--- NOTE | 2020-10-31 14:01 | P.CNS ---
Date of Consult: 10/31/20 Primary Care Provider: Dr. Leal Chief Complaint: Hypontaremia, COPD exacerbation History of Present Illness: The patient is a 65-year-old male with past medical history of hypertension, COPD, alcohol abuse who presented to the emergency room due to shortness of breath and COPD exacerbation. Patient states that he has had increasing shortness of breath the past few days. He is dose trilogy at home and manages COPD. Patient also abuses alcohol and reports that at home he drinks approximately 1-2 bottle of wine daily. In the ED the patient was found to be significantly hypoxic with expiratory wheezing refractory to initial steroids and breathing treatment. Blood cultures were taken and they grew Staph hominin the patient also grew Enterococcus faecali in his urine. Based off of the sensitivity testing the patient will continue on IV ampicillin and Levaquin. Patient denies nausea, vomiting, diarrhea, chest pain. He states he is still having some shortness of breath, and utilizing 2 L of oxygen via nasal cannula with q4hr nebulized breathing treatments. 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 - Social History Smoking Status: Current every day smoker Alcohol use: Yes CD- Drugs: No Caffeine use: Yes Place of Residence: Home Review of Systems 10-point ROS is otherwise unremarkable Physical Examination Temp Pulse Resp BP Pulse Ox 96.8 F 71 20 139/86 97 10/31/20 12:03 10/31/20 12:03 10/31/20 12:03 10/31/20 12:03 10/31/20 12:03 General: Alert, In no apparent distress HEENT: Atraumatic, Normocephalic Neck: Supple, 2+ carotid pulse no bruit Respiratory: Expiratory wheezes Cardiovascular: No edema, Regular rate/rhythm Gastrointestinal: Normal bowel sounds, Non-distended Musculoskeletal: No clubbing, No swelling Integumentary: No rashes, No breakdown, No significant lesion 10/26/20 18:47 Blood - Blood Aerobic Blood Culture - Final Staph Hominis 10/26/20 18:47 Blood - Blood Blood Culture Gram Stain - Final 10/26/20 18:47 Blood - Blood Anaerobic Blood Culture - Final Staph Hominis 10/26/20 18:47 Blood - Blood Gram Stain - Final 10/26/20 18:30 Blood - Blood Aerobic Blood Culture - Final Staph Hominis Enterococcus Faecalis 10/26/20 18:30 Blood - Blood Blood Culture Gram Stain - Final 10/26/20 18:30 Blood - Blood Anaerobic Blood Culture - Final Staph Hominis Enterococcus Faecalis 10/26/20 18:30 Blood - Blood Gram Stain - Final Conclusions/Impression: Assessment -bacteremia -UTI -COPD exacerbation Plan: -blood cultures grew Staph hominis sensitive to levaqin. Repeat blood cultures ordered today, continue antibiotic therapy 2 weeks after negative blood culture. Can place patient on p.o. ampicillin prior to discharge. -urine grew Enterococcus faecalis sensitive to ampicillin. -continue IV Levaquin and ampicillin. After negative blood culture continue Levaquin for 2 weeks. For UTI continue ampicillin for 7-10 days. -medical management per primary team -plan of care discussed with Dr. Vera Thank you for consultation
--- NOTE | 2020-10-31 19:35 | PN ---
Date of Progress Note: 10/31/2020 Subjective: The patient was admitted with hyponatremia, alcohol intoxication and was found to have b eer potomania. After hydration kidney function improved. Sodium normalized. Objective: Vital Signs: When I saw the patient, blood pressure 139/86, pulse of 71, afebrile. Chest: Clear to auscultation. Heart: S1, S2, regular. Abdomen: Soft, nontender. Extremities: No edema. Neurologic: Alert. No focality. Laboratory Data: WBC 5.5, H and H 14.4/42. Sodium 131, potassium 4.5, bicarb 40, BUN 11, creatinine 0.6, calcium 8.7, phosphorus 3.8, albumin 3.3. Current Medications: The patient on include, 1.Ampicillin. 2.Nicotine. 3.Flomax. 4.Lovenox. 5.Inderal. 6.Lisinopril. 7.Amlodipine. 8.Prednisone. Assessment And Plan: 1.Hyponatremia, secondary to beer potomania, recovered, resolved, stable. We will continue to monit or. 2.Hypertension, currently controlled, optimal. Continue current medication with lisinopril and Inde ral. 3.Urinary tract infection with urosepsis and bacteremia secondary to Enterococcus faecalis. Given t he sensitivity, I am going to go ahead and add Levaquin to cover. 4.Bacteremia, secondary to Staph hominis and Enterococcus faecalis, add Levaquin. We will follow up . Time spent examining the patient face to face, placing orders, discussing the case with nursing and discussing with the hospitalist 45 minutes. RIGO Voice ID: [id number] Report ID: [id number]
[2020-11-01] MEDS: AMPICILLIN SODIUM 1 GM in NA CHLORIDE 0.9% 100 ML IVPB SCH ×4 (00:14→18:53)
[2020-11-01] MEDS: ALBUTEROL 2.5 MG/3 ML NEB SOL NEB SCH ×4 (01:50→19:20)
[2020-11-01 06:27] LABS: Absolute Lymphocytes (CBC) 0.6 K/uL (0.7-4.9); Basophils % 0.1 % (0-1.3); Hematocrit 46.2 % (39.6-49.0); Lymphocytes % 8.2 % (15.3-44.8); MPV 7.2 fL (7.6-11.3); RBC Red Blood Cell Count 4.41 M/uL (4.33-5.43)
[2020-11-01 06:28] LABS: BUN Blood Urea Nitrogen 17 mg/dL (7-18); Bicarbonate 39 mmol/L (21-32); Glucose Level 117 mg/dL (74-106); Phosphorus 5.1 mg/dL (2.5-4.9); Potassium 4.4 mmol/L (3.5-5.1); Sodium Level 131 mmol/L (136-145)
[2020-11-01] MEDS: ARFORMOTEROL TARTRATE 15 MCG/2 ML VIAL.NEB NEB SCH ×2 (07:35→19:20)
[2020-11-01] MEDS: Levofloxacin500mg IV 500 MG/100 ML BAG IV SCH (08:00)
[2020-11-01] MEDS: HOME MED 1 EA UNK (Fluticasone/Umeclidin/Vilanter [Trelegy Ellipta 100-62.5-25] Blst.W.Dev IH SCH (09:00)
[2020-11-01 09:23] LABS: Blood Morphology Comment NOT SEEN (NOT SEEN); Platelet Estimate ADEQ; White Blood Cell Scan OK (OK)
[2020-11-01] MEDS: FOLIC ACID 1 MG, MULTIVITAMINS INJ 10 ML, THIAMINE HCL 100 MG in NA CHLORIDE 0.9% 1,000 ML IV SCH (09:58)
[2020-11-01] MEDS: PROPRANOLOL HCL 10 MG TAB PO SCH ×2 (09:59→21:01)
[2020-11-01] MEDS: lisinopriL 20 MG TAB PO SCH (09:59)
[2020-11-01] MEDS: MAXZIDE (HCTZ 25/TRIAMTERENE 37.5MG) TAB PO SCH (09:59)
[2020-11-01] MEDS: predniSONE 20 MG TAB PO SCH ×2 (10:00→21:01)
[2020-11-01] MEDS: NICOTINE 21 MG/PAT TD SCH (10:00)
[2020-11-01] MEDS: TAMSULOSIN 0.4 MG SR CAP PO SCH (10:00)
[2020-11-01] MEDS: AMLODIPINE 10 MG TAB PO SCH (10:00)
[2020-11-01] MEDS: ENOXAPARIN 40 MG/0.4 ML SQ SCH (10:01)
--- NOTE | 2020-11-01 14:01 | P.PN ---
Subjective Date of Service: 11/01/20 Primary Care Provider: Dr. Leal Chief Complaint: Hypontaremia, COPD exacerbation Subjective a 65 y/o man with HX of Alcohol abuse , admitted with COPD exacerbation and alcohol toxicity today sodium stable 131 will start salt tablet fluid restriction will dc HCTZ/triamterene Physical exam general: Awake and alert , NAD Neck; Supple, No elevated JVD hear: RRR, normal S1,2 no murmur or rub Chest: CTAB, no rales or wheezes Abdomen: Soft , Nt Extremities No edema or ulcer A/P Hyponatremia stable due to poor osmol intake fluid restriction will dc HCTZ will start salt tablets Alcohol toxicity monitor for withdrwala COPD exacerbation cot inhalers Bacteremia, secondary to Staph hominis and Enterococcus faecalis, Cont Abx Total time spent 45 min Physical Examination - Vital Signs Temperature: 97.2 F Blood Pressure: 109/65 Pulse: 71 Respirations: 19 Pulse Ox (%): 97
--- NOTE | 2020-11-01 14:42 | P.PN ---
Subjective Date of Service: 11/01/20 Primary Care Provider: Dr. Leal Chief Complaint: Hypontaremia, COPD exacerbation Patient seen and examine st bedside with no acute complaints. Repeat blood cultures show no growth as of yet. Remains afebrile with no leukocytosis. Review of Systems 10-point ROS is otherwise unremarkable Physical Examination - Vital Signs Temperature: 97.2 F Blood Pressure: 109/65 Pulse: 71 Respirations: 19 Pulse Ox (%): 97 - Physical Exam Other Physical/Emotional Findings: General: Alert, In no apparent distress. HEENT: Atraumatic, Normocephalic. Neck: Supple, 2+ carotid pulse no bruit. Respiratory: Expiratory wheezes. Cardiovascular: No edema, Regular rate/rhythm. Gastrointestinal: Normal bowel sounds, Non-distended. Musculoskeletal: No clubbing, No swelling. Integumentary: No rashes, No breakdown, No significant lesion Assessment And Plan - Plan Antibioitcs: levaqin start: 10/31 stop: 11/14 Indication: bacteremia Ampicillin start: 10/30 Stop: 11/06 Indication: UTI Assessment -bacteremia -UTI -COPD exacerbation Plan: -blood cultures grew Staph hominis sensitive to levaqin. Repeat blood cultures on 10/31 showed no growth, continue antibiotic therapy 2 weeks after negative blood culture. Can place patient on p.o. levaqin prior to discharge. -urine grew Enterococcus faecalis sensitive to ampicillin. -continue IV Levaquin and ampicillin. After negative blood culture continue Levaquin for 2 weeks. For UTI continue ampicillin for 7-10 days. -medical management per primary team -plan of care discussed with Dr. Vera Thank you for consultation Physician Review Additional Text: Problem List: acute hypoxic rsspiratory failure secondary to acute on chronic COPD exacerbation Hyponatremia likely secondary to alcohol abuse Enterococcus bacteremia Staph hominis bacteremia Enterococcus UTI Alcohol abuse Hypertension Tobacco abuse -continue nebs, inhalers. Daily room air sats. -continue IV steroid. -nephrology consulted for assistance with hyponatremia - sodium level improved. -no symptoms or signs of alcohol withdrawal. -continue IV Levaquin to cover staph hominis. IV Ampicillin to treat enterococcus. -Follow repeat blood culture. -ID consult -nicotine patch. -wean O2 as tolerated -villa placed in ED, continue flomax 10/28. Urology follow up as outpatient. -Voiding trial prior to discharge. -continue PT. VTE: lovenox Code: full Dispo: Home with home health.
--- NOTE | 2020-11-01 15:11 | P.PN ---
Subjective Date of Service: 11/01/20 Primary Care Provider: Dr. Leal Chief Complaint: Hypontaremia, COPD exacerbation Patient has no new complain He is tolerating diet. No symptoms or signs of alcohol withdrawal. Physical Examination - Vital Signs Temperature: 97.2 F Blood Pressure: 109/65 Pulse: 71 Respirations: 19 Pulse Ox (%): 97 - Physical Exam General: Alert, In no apparent distress HEENT: Mucous membr. moist/pink Respiratory: Clear to auscultation bilaterally, Normal air movement Cardiovascular: Regular rate/rhythm, Normal S1 S2, Edema (Bilateral lower extremities) Gastrointestinal: Soft and benign, Non-distended, No tenderness Musculoskeletal: No swelling Integumentary: No rashes Neurological: Normal strength at 5/5 x4 extr, Cranial nerves 3-12 intact Other Physical/Emotional Findings: General: Alert, In no apparent distress. HEENT: Atraumatic, Normocephalic. Neck: Supple, 2+ carotid pulse no bruit. Respiratory: Expiratory wheezes. Cardiovascular: No edema, Regular rate/rhythm. Gastrointestinal: Normal bowel sounds, Non-distended. Musculoskeletal: No clubbing, No swelling. Integumentary: No rashes, No breakdown, No significant lesion Assessment And Plan Physician Review Additional Text: Problem List: acute hypoxic rsspiratory failure secondary to acute on chronic COPD exacerbation Hyponatremia likely secondary to alcohol abuse Enterococcus bacteremia Staph hominis bacteremia Enterococcus UTI Alcohol abuse Hypertension Tobacco abuse BPH -continue nebs, inhalers. -continue oral steroid. -nephrology following for hyponatremia. Sodium level has been stable at 131 -no symptoms or signs of alcohol withdrawal. -continue IV Levaquin to cover staph hominis. IV Ampicillin to treat enterococcus. -Repeat blood culture: no growth to date. -ID is following. -nicotine patch. -wean O2 as tolerated -villa placed in ED, continue flomax 10/28. Urology follow up as outpatient. -Voiding trial in 2 weeks. -continue PT. VTE: lovenox Code: full Dispo: [facility] rehab.
[2020-11-01] MEDS: SODIUM CHLORIDE 1 GM TAB PO SCH (17:04)
[2020-11-01] MEDS: FOLIC ACID 1 MG TABLET PO SCH (17:04)
[2020-11-01] MEDS: THIAMINE HCL 100 MG TABLET PO SCH (17:05)
[2020-11-02] MEDS: ALBUTEROL 2.5 MG/3 ML NEB SOL NEB SCH ×4 (01:20→19:15)
[2020-11-02] MEDS: AMPICILLIN SODIUM 1 GM in NA CHLORIDE 0.9% 100 ML IVPB SCH ×4 (02:25→17:56)
[2020-11-02] MEDS: ARFORMOTEROL TARTRATE 15 MCG/2 ML VIAL.NEB NEB SCH ×2 (07:22→19:15)
[2020-11-02] MEDS: HOME MED 1 EA UNK (Fluticasone/Umeclidin/Vilanter [Trelegy Ellipta 100-62.5-25] Blst.W.Dev IH SCH (09:00)
[2020-11-02] MEDS: Levofloxacin500mg IV 500 MG/100 ML BAG IV SCH (10:22)
[2020-11-02] MEDS: AMLODIPINE 10 MG TAB PO SCH (10:23)
[2020-11-02] MEDS: PROPRANOLOL HCL 10 MG TAB PO SCH ×2 (10:24→21:08)
[2020-11-02] MEDS: THIAMINE HCL 100 MG TABLET PO SCH (10:24)
[2020-11-02] MEDS: NICOTINE 21 MG/PAT TD SCH ×2 (10:24→10:26)
[2020-11-02] MEDS: TAMSULOSIN 0.4 MG SR CAP PO SCH (10:24)
[2020-11-02] MEDS: SODIUM CHLORIDE 1 GM TAB PO SCH ×2 (10:25→17:55)
[2020-11-02] MEDS: FOLIC ACID 1 MG TABLET PO SCH ×2 (10:25→10:26)
[2020-11-02] MEDS: predniSONE 20 MG TAB PO SCH ×2 (10:25→21:08)
[2020-11-02] MEDS: lisinopriL 20 MG TAB PO SCH (10:25)
[2020-11-02] MEDS: ENOXAPARIN 40 MG/0.4 ML SQ SCH (10:26)
--- NOTE | 2020-11-02 12:30 | P.PN ---
Subjective Date of Service: 11/02/20 Primary Care Provider: Dr. Leal Chief Complaint: Hypontaremia, COPD exacerbation Patient has no new complain No symptoms or signs of alcohol withdrawal. He is tolerating physical therapy Physical Examination - Vital Signs Temperature: 97.1 F Blood Pressure: 117/74 Pulse: 74 Respirations: 18 Pulse Ox (%): 97 - Physical Exam General: Alert, In no apparent distress, Oriented x3 HEENT: Mucous membr. moist/pink Neck: JVD not distended Respiratory: Clear to auscultation bilaterally, Normal air movement Cardiovascular: No edema, Regular rate/rhythm, Normal S1 S2 Gastrointestinal: Soft and benign, Non-distended, No tenderness Musculoskeletal: No swelling, No tenderness Integumentary: No rashes Neurological: Normal strength at 5/5 x4 extr, Cranial nerves 3-12 intact Other Physical/Emotional Findings: General: Alert, In no apparent distress. HEENT: Atraumatic, Normocephalic. Neck: Supple, 2+ carotid pulse no bruit. Respiratory: Expiratory wheezes. Cardiovascular: No edema, Regular rate/rhythm. Gastrointestinal: Normal bowel sounds, Non-distended. Musculoskeletal: No clubbing, No swelling. Integumentary: No rashes, No breakdown, No significant lesion Assessment And Plan Physician Review Additional Text: Problem List: acute hypoxic rsspiratory failure secondary to acute on chronic COPD exacerbation Hyponatremia likely secondary to alcohol abuse Enterococcus bacteremia Staph hominis bacteremia Enterococcus UTI Alcohol abuse Hypertension Tobacco abuse BPH -patient is doing better. -continue nebs, inhalers. -continue oral steroid. -nephrology following for hyponatremia. Sodium level has been stable at 131 -no symptoms or signs of alcohol withdrawal. -continue IV Levaquin to cover staph hominis. IV Ampicillin to treat e nterococcus. -Repeat blood culture: no growth to date. -ID is following. -nicotine patch. -wean O2 as tolerated -villa placed in ED, continue flomax 10/28. Urology follow up as outpatient. -Voiding trial in 2 weeks. -continue PT. VTE: lovenox Code: full Dispo: Awaiting for placement in SNF rehab.
--- NOTE | 2020-11-02 17:50 | P.PN ---
Subjective Date of Service: 11/02/20 Primary Care Provider: Dr. Leal Chief Complaint: Hypontaremia, COPD exacerbation Subjective a 65 y/o man with HX of Alcohol abuse , admitted with COPD exacerbation and alcohol toxicity today sodium stable 131 cont salt tablets discharge plan as per primary team Physical exam general: Awake and alert , NAD Neck; Supple, No elevated JVD hear: RRR, normal S1,2 no murmur or rub Chest: CTAB, no rales or wheezes Abdomen: Soft , Nt Extremities No edema or ulcer A/P Hyponatremia stable due to poor osmol intake fluid restriction will dc HCTZ will start salt tablets Alcohol toxicity monitor for withdrawal COPD exacerbation cot inhalers Bacteremia, secondary to Staph hominis and Enterococcus faecalis, Cont Abx Total time spent 45 min Physical Examination - Vital Signs Temperature: 97.5 F Blood Pressure: 88/54 Pulse: 89 Respirations: 17 Pulse Ox (%): 93 - Physical Exam Other Physical/Emotional Findings: General: Alert, In no apparent distress. HEENT: Atraumatic, Normocephalic. Neck: Supple, 2+ carotid pulse no bruit. Respiratory: Expiratory wheezes. Cardiovascular: No edema, Regular rate/rhythm. Gastrointestinal: Normal bowel sounds, Non-distended. Musculoskeletal: No cl ubbing, No swelling. Integumentary: No rashes, No breakdown, No significant lesion
[2020-11-03] MEDS: AMPICILLIN SODIUM 1 GM in NA CHLORIDE 0.9% 100 ML IVPB SCH ×4 (00:09→17:02)
[2020-11-03] MEDS: ALBUTEROL 2.5 MG/3 ML NEB SOL NEB SCH ×5 (01:15→19:45)
[2020-11-03 06:14] LABS: Absolute Lymphocytes (CBC) 0.6 K/uL (0.7-4.9); Basophils % 0.5 % (0-1.3); Hematocrit 43.8 % (39.6-49.0); Lymphocytes % 7.8 % (15.3-44.8); MPV 7.2 fL (7.6-11.3); RBC Red Blood Cell Count 4.19 M/uL (4.33-5.43)
[2020-11-03] MEDS: ARFORMOTEROL TARTRATE 15 MCG/2 ML VIAL.NEB NEB SCH ×3 (06:30→19:45)
[2020-11-03 06:53] LABS: BUN Blood Urea Nitrogen 15 mg/dL (7-18); Bicarbonate 37 mmol/L (21-32); Glucose Level 120 mg/dL (74-106); Potassium 4.8 mmol/L (3.5-5.1); Sodium Level 134 mmol/L (136-145)
[2020-11-03] MEDS: HOME MED 1 EA UNK (Fluticasone/Umeclidin/Vilanter [Trelegy Ellipta 100-62.5-25] Blst.W.Dev IH SCH (09:00)
[2020-11-03] MEDS: TAMSULOSIN 0.4 MG SR CAP PO SCH ×2 (09:44→09:49)
[2020-11-03] MEDS: Levofloxacin500mg IV 500 MG/100 ML BAG IV SCH (09:44)
[2020-11-03] MEDS: THIAMINE HCL 100 MG TABLET PO SCH (09:45)
[2020-11-03] MEDS: ENOXAPARIN 40 MG/0.4 ML SQ SCH (09:45)
[2020-11-03] MEDS: SODIUM CHLORIDE 1 GM TAB PO SCH (09:46)
[2020-11-03] MEDS: predniSONE 20 MG TAB PO SCH ×2 (09:46→20:35)
[2020-11-03] MEDS: lisinopriL 20 MG TAB PO SCH (09:49)
[2020-11-03] MEDS: PROPRANOLOL HCL 10 MG TAB PO SCH ×2 (09:49→20:33)
[2020-11-03] MEDS: AMLODIPINE 10 MG TAB PO SCH (09:50)
--- NOTE | 2020-11-03 11:59 | P.PN ---
Subjective Date of Service: 11/03/20 Primary Care Provider: Dr. Leal Chief Complaint: Hypontaremia, COPD exacerbation Patient has no new complain. Physical Examination - Vital Signs Temperature: 97.1 F Blood Pressure: 115/68 Pulse: 85 Respirations: 18 Pulse Ox (%): 96 - Physical Exam General: Alert, In no apparent distress, Oriented x3 Neck: Supple, JVD not distended Respiratory: Clear to auscultation bilaterally, Normal air movement Cardiovascular: No edema, Regular rate/rhythm, Normal S1 S2 Gastrointestinal: Soft and benign, Non-distended, No tenderness Musculoskeletal: No swelling, No tenderness Integumentary: No rashes, No erythema Neurological: Other (No focal motor deficit) Urinary: Villa catheter Other Physical/Emotional Findings: General: Alert, In no apparent distress. HEENT: Atraumatic, Normocephalic. Neck: Supple, 2+ carotid pulse no bruit. Respiratory: Expiratory wheezes. Cardiovascular: No edema, Regular rate/rhythm. Gastrointestinal: Normal bowel sounds, Non-distended. Musculoskeletal: No clubbing, No swelling. Integumentary: No rashes, No breakdown, No significant lesion Assessment And Plan Physician Review Additional Text: Problem List: acute hypoxic rsspiratory failure secondary to acute on chronic COPD exacerbation Hyponatremia likely secondary to alcohol abuse Enterococcus bacteremia Staph hominis bacteremia Enterococcus UTI Alcohol abuse Hypertension Tobacco abuse BPH -clinically improved. -continue nebs, inhalers. -continue oral steroid. -nephrology following for hyponatremia. Sodium level improved to 136. -no symptoms or signs of alcohol withdrawal. -continue IV Levaquin to cover staph hominis. IV Ampicillin to treat enterococcus. -transition to oral antibiotics on discharged -Repeat blood culture: no growth to date. -ID is following. -nicotine patch. -wean O2 as tolerated -villa placed in ED, continue flomax 10/28. Urology follow up as outpatient. -Voiding trial in 2 weeks. -continue PT. VTE: lovenox Code: full Dispo: Awaiting for placement in SNF rehab.
--- NOTE | 2020-11-03 12:58 | P.PN ---
Subjective Date of Service: 11/03/20 Primary Care Provider: Dr. Leal Chief Complaint: Hypontaremia, COPD exacerbation Subjective a 65 y/o man with HX of Alcohol abuse , admitted with COPD exacerbation and alcohol toxicity today sodium improved to 134 will reduce salt to 1gm daily discharge plan as per primary team Physical exam general: Awake and alert , NAD Neck; Supple, No elevated JVD hear: RRR, normal S1,2 no murmur or rub Chest: CTAB, no rales or wheezes Abdomen: Soft , Nt Extremities No edema or ulcer A/P Hyponatremia stable due to poor osmol intake fluid restriction off HCTZ cont salt tablets Alcohol toxicity monitor for withdrawal COPD exacerbation cot inhalers Bacteremia, secondary to Staph hominis and Enterococcus faecalis, Cont Abx Total time spent 45 min Physical Examination - Vital Signs Temperature: 97.1 F Blood Pressure: 115/68 Pulse: 85 Respirations: 18 Pulse Ox (%): 96 - Physical Exam Other Physical/Emotional Findings: General: Alert, In no apparent distress. HEENT: Atraumatic, Normocephalic. Neck: Supple, 2+ carotid pulse no bruit. Respiratory: Expiratory wheezes. Cardiovascular: No edema, Regular rate/rhythm. Gastrointestinal: Normal bowel sounds, Non-distended. Musculoskeletal: No clubbing, No swelling. Integumentary: No rashes, No breakdown, No significant lesion
[2020-11-04] MEDS: AMPICILLIN SODIUM 1 GM in NA CHLORIDE 0.9% 100 ML IVPB SCH ×5 (00:07→23:31)
[2020-11-04] MEDS: ALBUTEROL 2.5 MG/3 ML NEB SOL NEB SCH ×4 (02:00→20:10)
[2020-11-04] MEDS: PROPRANOLOL HCL 10 MG TAB PO SCH ×2 (07:32→21:33)
[2020-11-04] MEDS: ENOXAPARIN 40 MG/0.4 ML SQ SCH (07:32)
[2020-11-04] MEDS: AMLODIPINE 10 MG TAB PO SCH (07:32)
[2020-11-04] MEDS: lisinopriL 20 MG TAB PO SCH (07:32)
[2020-11-04] MEDS: FOLIC ACID 1 MG TABLET PO SCH (07:32)
[2020-11-04] MEDS: THIAMINE HCL 100 MG TABLET PO SCH (07:33)
[2020-11-04] MEDS: Levofloxacin500mg IV 500 MG/100 ML BAG IV SCH (07:33)
[2020-11-04] MEDS: SODIUM CHLORIDE 1 GM TAB PO SCH (07:33)
[2020-11-04] MEDS: NICOTINE 21 MG/PAT TD SCH (07:33)
[2020-11-04] MEDS: TAMSULOSIN 0.4 MG SR CAP PO SCH (07:33)
[2020-11-04] MEDS: predniSONE 20 MG TAB PO SCH ×2 (07:34→21:33)
[2020-11-04] MEDS: HOME MED 1 EA UNK (Fluticasone/Umeclidin/Vilanter [Trelegy Ellipta 100-62.5-25] Blst.W.Dev IH SCH (09:00)
[2020-11-04] MEDS: ARFORMOTEROL TARTRATE 15 MCG/2 ML VIAL.NEB NEB SCH ×2 (09:40→20:10)
--- NOTE | 2020-11-04 15:00 | P.PN ---
Subjective Date of Service: 11/04/20 Primary Care Provider: Dr. Leal Chief Complaint: Hypontaremia, COPD exacerbation Patient has no new complain. Blood sugar levels within acceptable range. Patient maintained on 2 L oxygen by nasal cannula. Physical Examination - Vital Signs Temperature: 97.3 F Blood Pressure: 148/75 Pulse: 81 Respirations: 21 Pulse Ox (%): 98 - Physical Exam General: Alert, In no apparent distress HEENT: Mucous membr. moist/pink Neck: JVD not distended Respiratory: Clear to auscultation bilaterally, Normal air movement, Diminished Cardiovascular: No edema, Regular rate/rhythm, Normal S1 S2 Gastrointestinal: Normal bowel sounds, Soft and benign, Non-distended, No tenderness Musculoskeletal: No swelling, No tenderness Integumentary: No rashes Neurological: Normal strength at 5/5 x4 extr Other Physical/Emotional Findings: General: Alert, In no apparent distress. HEENT: Atraumatic, Normocephalic. Neck: Supple, 2+ carotid pulse no bruit. Respiratory: Expiratory wheezes. Cardiovascular: No edema, Regular rate/rhythm. Gastrointestinal: Normal bowel sounds, Non-distended. Musculoskeletal: No clubbing, No swelling. Integumentary: No rashes, No breakdown, No significant lesion Assessment And Plan Physician Review Additional Text: Problem List: acute hypoxic rsspiratory failure secondary to acute on chronic COPD exacerbation Hyponatremia likely secondary to alcohol abuse Enterococcus bacteremia Staph hominis bacteremia Enterococcus UTI Alcohol abuse Hypertension Tobacco abuse BPH -clinically improved. -continue nebs, inhalers. -continue oral steroid. -nephrology following for hyponatremia. Sodium level improved to 136. -no symptoms or signs of alcohol withdrawal. -continue IV Levaquin to cover staph hominis. IV Ampicillin to treat enterococcus. Discharged with oral Levaquin and oral ampicillin per ID recommendation. -Repeat blood culture: no growth to date. -ID is following. -nicotine patch. -wean O2 as tolerated -villa placed in ED, continue flomax 10/28. Urology follow up as outpatient. -Voiding trial in 2 weeks. -continue PT. VTE: lovenox Code: full Dispo: Awaiting for placement in SNF rehab.
[2020-11-04] MEDS ORDERED: NA CHLORIDE 0.9% 250 ML ONE (23:37)
[2020-11-05] MEDS: ALBUTEROL 2.5 MG/3 ML NEB SOL NEB SCH ×4 (01:25→20:40)
--- NOTE | 2020-11-05 02:58 | PN ---
Date of Progress Note: 11/04/2020 Chief Complaint: Hyponatremia and COPD exacerbation. History Of Present Illness: The patient is a 65-year-old man with history of alcohol abuse. He was admitted for COPD exacerbation and alcohol toxicity. The patient was found to have hyponatremia. So dium level has been improving gradually and yesterday was 134 and plan was reduce sodium chloride tab lets to 1 g a day. Review of Systems: Denies PND or orthopnea. Physical Examination: Lungs: Diminished breath sounds at bases. Heart: S1, S2. Abdomen: Soft, benign. Extremities: No edema. Impression And Plan: 1.Hyponatremia. Sodium level overall is improving. Fluid restriction was started. The patient can not take HCTZ due to risk of progressively worse hyponatremia. 2.Alcohol toxicity. Monitor for withdrawal. Continue to monitor magnesium and phosphorus. Magnesi um replacement. 3.Chronic obstructive pulmonary disease exacerbation, on antibiotics. 4.Bacteremia secondary to Staphylococcus hominis and Enterococcus faecalis. The patient will contin ue antibiotics. CHELO/MODL Voice ID: [id number] Report ID: [id number]
[2020-11-05] MEDS: AMPICILLIN SODIUM 1 GM in NA CHLORIDE 0.9% 100 ML IVPB SCH ×4 (05:02→23:27)
[2020-11-05 06:17] LABS: Absolute Lymphocytes (CBC) 0.7 K/uL (0.7-4.9); Basophils % 0.3 % (0-1.3); Hematocrit 41.9 % (39.6-49.0); Lymphocytes % 6.6 % (15.3-44.8); MPV 7.3 fL (7.6-11.3); RBC Red Blood Cell Count 3.97 M/uL (4.33-5.43)
[2020-11-05 06:31] LABS: BUN Blood Urea Nitrogen 14 mg/dL (7-18); Bicarbonate 35 mmol/L (21-32); Glucose Level 175 mg/dL (74-106); Magnesium 2.4 mg/dL (1.8-2.4); Potassium 4.4 mmol/L (3.5-5.1); Sodium Level 138 mmol/L (136-145)
[2020-11-05] MEDS: Levofloxacin500mg IV 500 MG/100 ML BAG IV SCH (07:55)
[2020-11-05] MEDS: THIAMINE HCL 100 MG TABLET PO SCH (07:56)
[2020-11-05] MEDS: NICOTINE 21 MG/PAT TD SCH (07:56)
[2020-11-05] MEDS: PROPRANOLOL HCL 10 MG TAB PO SCH ×2 (07:56→20:26)
[2020-11-05] MEDS: AMLODIPINE 10 MG TAB PO SCH (07:56)
[2020-11-05] MEDS: predniSONE 20 MG TAB PO SCH ×2 (07:56→20:27)
[2020-11-05] MEDS: lisinopriL 20 MG TAB PO SCH (07:57)
[2020-11-05] MEDS: ENOXAPARIN 40 MG/0.4 ML SQ SCH (07:57)
[2020-11-05] MEDS: FOLIC ACID 1 MG TABLET PO SCH (07:57)
[2020-11-05] MEDS: SODIUM CHLORIDE 1 GM TAB PO SCH (07:57)
[2020-11-05] MEDS: ARFORMOTEROL TARTRATE 15 MCG/2 ML VIAL.NEB NEB SCH ×2 (08:00→20:40)
[2020-11-05] MEDS: HOME MED 1 EA UNK (Fluticasone/Umeclidin/Vilanter [Trelegy Ellipta 100-62.5-25] Blst.W.Dev IH SCH (09:00)
--- NOTE | 2020-11-05 13:53 | P.PN ---
Subjective Date of Service: 11/05/20 Primary Care Provider: Dr. Leal Chief Complaint: Hypontaremia, COPD exacerbation Patient seen and examine st bedside with no acute complaints. He is stating he is feeling a little congested. Remains afebrile, no leukocytosis. Review of Systems 10-point ROS is otherwise unremarkable Physical Examination - Vital Signs Temperature: 97.3 F Blood Pressure: 114/61 Pulse: 98 Respirations: 20 Pulse Ox (%): 97 - Physical Exam Other Physical/Emotional Findings: General: Alert, In no apparent distress. HEENT: Atraumatic, Normocephalic. Neck: Supple, 2+ carotid pulse no bruit. Respiratory: Expiratory wheezes. Cardiovascular: No edema, Regular rate/rhythm. Gastrointestinal: Normal bowel sounds, Non-distended. Musculoskeletal: No clubbing, No swelling. Integumentary: No rashes, No breakdown, No significant lesion Assessment And Plan - Plan Antibioitcs: levaqin start: 10/31 stop: 11/14 Indication: bacteremia Ampicillin start: 10/30 Stop: 11/06 Indication: UTI Assessment -bacteremia -UTI -COPD exacerbation Plan: -blood cultures grew Staph hominis sensitive to levaqin. Repeat blood cultures on 10/31 showed no growth, continue antibiotic therapy 2 weeks after negative blood culture. Can place patient on p.o. levaqin prior to discharge. -urine grew Enterococcus faecalis sensitive to ampicillin. -continue IV Levaquin and ampicillin. After negative blood culture continue Levaquin for 2 weeks. For UTI continue ampicillin for 7-10 days. -medical management per primary team -plan of care discussed with Dr. Vera Thank you for consultation
--- NOTE | 2020-11-05 16:50 | P.PN ---
Subjective Date of Service: 11/05/20 Primary Care Provider: Dr. Leal Chief Complaint: Hypontaremia, COPD exacerbation Subjective: No new changes (doing well, still needing O2, with wheeze, otherwise without complaints) Review of Systems 10-point ROS is otherwise unremarkable Physical Examination - Vital Signs Temperature: 97.3 F Blood Pressure: 114/61 Pulse: 98 Respirations: 20 Pulse Ox (%): 97 - Physical Exam Other Physical/Emotional Findings: General: Alert, In no apparent distress. HEENT: Atraumatic, Normocephalic. Neck: Supple, 2+ carotid pulse no bruit. Respiratory: Expiratory wheezes. Cardiovascular: No edema, Regular rate/rhythm. Gastrointestinal: Normal bowel sounds, Non-distended. Musculoskeletal: No clubbing, No swelling. Integumentary: No rashes, No breakdown, No significant lesion Assessment & Plan Physician Review Additional Text: Physical Exam General: Alert, In no apparent distress HEENT: Mucous membr. moist/pink, sclera anicteric, normal conjunctiva Pulm: mild expiratory wheeze bilaterally, nonlabored respirations on O2 CV: RRR, no edema Abd: soft, NTND Ext: no edema, no rash Neuro: normal affect, str: 5/5 x 4 extremities Problem List: acute hypoxic rsspiratory failure secondary to acute on chronic COPD exacerbation Hyponatremia likely secondary to alcohol abuse Enterococcus bacteremia Staph hominis bacteremia Enterococcus UTI Alcohol abuse Hypertension Tobacco abuse BPH -clinically improved. with some mild wheeze this morning -continue nebs, inhalers. continue oral steroid. -wean O2 as tolerated -nephrology following for hyponatremia. Sodium level improved -no symptoms or signs of alcohol withdrawal. -continue IV Levaquin to cover staph hominis. IV Ampicillin to treat enter ococcus. Discharged with oral Levaquin and oral ampicillin per ID recommendation. -Repeat blood culture: no growth to date. ID following -Garza placed in ED, continue flomax 10/28. Urology follow up as outpatient. Voiding trial in 2 weeks. -continue PT VTE: lovenox Code: full Dispo: Awaiting for placement in SNF rehab. can discharge once approved Time Spent Managing Pts Care (In Minutes): 35
--- NOTE | 2020-11-06 02:02 | PN ---
Date of Progress Note: 11/05/2020 Chief Complaint: Hyponatremia, hypoosmolar state associated with COPD exacerbation. History Of Present Illness: The patient has multiple medical problems. He is a 65-year-old man with history of alcohol abuse. He was admitted for COPD exacerbation and alcohol toxicity. He was found to have hyponatremia. Sodium level was below 120. The patient had severe hyponatremia, which was t reated with fluid replacement. Currently, the patient is on sodium chloride tablets 1 g per day and fluid restriction. Sodium level has improved. Plan is to hold sodium chloride tablets and advance p .o. fluid intake. Review of Systems: Denies PND or orthopnea. Physical Examination: Lungs: Diminished breath sounds at bases. Heart: S1, S2. Abdomen: Soft, benign. Extremities: No edema. Impression And Plan: 1.Hyponatremia, hypoosmolar. Sodium level is improving gradually. Fluid restriction is adjusted. The patient cannot take HCTZ due to risk of progressively worse hyponatremia. Monitor magnesium and phosphorus level in view of alcohol toxicity history. Monitor for withdrawal. The patient will cont inue magnesium and phosphorus replacement. 2.Chronic obstructive pulmonary disease exacerbation, on antibiotics. 3.Bacteremia secondary to Staphylococcus hominis and Enterococcus faecalis. The patient will contin ue antibiotics. EB/MODL Voice ID: [id number] Report ID: [id number]
[2020-11-06] MEDS: ALBUTEROL 2.5 MG/3 ML NEB SOL NEB SCH ×4 (02:38→20:00)
[2020-11-06] MEDS: AMPICILLIN SODIUM 1 GM in NA CHLORIDE 0.9% 100 ML IVPB SCH ×3 (05:15→17:59)
[2020-11-06] MEDS ORDERED: NA CHLORIDE 0.9% 500 ML ONE (05:28)
[2020-11-06 06:29] LABS: BUN Blood Urea Nitrogen 13 mg/dL (7-18); Bicarbonate 37 mmol/L (21-32); Glucose Level 124 mg/dL (74-106); Magnesium 2.3 mg/dL (1.8-2.4); Potassium 4.7 mmol/L (3.5-5.1); Sodium Level 138 mmol/L (136-145)
[2020-11-06] MEDS: ARFORMOTEROL TARTRATE 15 MCG/2 ML VIAL.NEB NEB SCH ×2 (07:30→20:05)
[2020-11-06] MEDS: ENOXAPARIN 40 MG/0.4 ML SQ SCH (08:54)
[2020-11-06] MEDS: TAMSULOSIN 0.4 MG SR CAP PO SCH (08:54)
[2020-11-06] MEDS: Levofloxacin500mg IV 500 MG/100 ML BAG IV SCH (08:54)
[2020-11-06] MEDS: lisinopriL 20 MG TAB PO SCH (08:54)
[2020-11-06] MEDS: predniSONE 20 MG TAB PO SCH ×2 (08:54→21:44)
[2020-11-06] MEDS: THIAMINE HCL 100 MG TABLET PO SCH (08:55)
[2020-11-06] MEDS: PROPRANOLOL HCL 10 MG TAB PO SCH ×2 (08:55→21:44)
[2020-11-06] MEDS: FOLIC ACID 1 MG TABLET PO SCH (08:55)
[2020-11-06] MEDS: HOME MED 1 EA UNK (Fluticasone/Umeclidin/Vilanter [Trelegy Ellipta 100-62.5-25] Blst.W.Dev IH SCH (09:00)
[2020-11-06] MEDS: AMLODIPINE 10 MG TAB PO SCH (09:00)
[2020-11-06] MEDS: NICOTINE 21 MG/PAT TD SCH (09:00)
--- NOTE | 2020-11-06 11:50 | P.PN ---
Subjective Date of Service: 11/06/20 Primary Care Provider: Dr. Leal Chief Complaint: Hypontaremia, COPD exacerbation Patient seen and examine st bedside with no acute complaints. Still complains of SOB and dyspnea. States that at home he uses trilogy inhaler-please restart. Review of Systems 10-point ROS is otherwise unremarkable Physical Examination - Vital Signs Temperature: 97.4 F Blood Pressure: 154/77 Pulse: 82 Respirations: 18 Pulse Ox (%): 97 Assessment And Plan - Plan Physical Exam: General: Alert, In no apparent distress HEENT: Atraumatic, Normocephalic Neck: Supple, 2+ carotid pulse no bruit Respiratory: Expiratory wheezes Cardiovascular: No edema, Regular rate/rhythm Gastrointestinal: Normal bowel sounds, Non-distended Musculoskeletal: No clubbing, No swelling Integumentary: No rashes, No breakdown, No significant lesion Antibioitcs: levaqin start: 10/31 stop: 11/14 Indication: bacteremia Ampicillin start: 10/30 Stop: 11/06 Indication: UTI Assessment -bacteremia -UTI -COPD exacerbation Plan: -blood cultures grew Staph hominis sensitive to levaqin. Repeat blood cultures on 10/31 showed no growth, continue antibiotic therapy 2 weeks after negative blood culture. Can place patient on p.o. levaqin prior to discharge. -urine grew Enterococcus faecalis sensitive to ampicillin. -continue IV Levaquin and ampicillin. After negative blood culture continue Levaquin for 2 weeks. For UTI continue ampicillin for 7-10 days. -patient still complains of SOB-pulm following -medical management per primary team -plan of care discussed with Dr. Vera Thank you for consultation
--- NOTE | 2020-11-06 14:11 | P.PN ---
Subjective Date of Service: 11/06/20 Primary Care Provider: Dr. Leal Chief Complaint: Hypontaremia, COPD exacerbation Subjective: No new changes (doing well, breathing comfortably on 2L NC. still with occasional slight wheeze. has not had Trelegy inhaler) Review of Systems 10-point ROS is otherwise unremarkable Physical Examination - Vital Signs Temperature: 97.5 F Blood Pressure: 138/79 Pulse: 71 Respirations: 19 Pulse Ox (%): 98 Assessment & Plan Physician Review Additional Text: Physical Exam General: Alert, In no apparent distress HEENT: Mucous membr. moist/pink, sclera anicteric, normal conjunctiva Pulm: mild expiratory wheeze bilaterally, nonlabored respirations on 2L NC CV: RRR, no edema Abd: soft, NTND Ext: no edema, no rash Neuro: normal affect Problem List: acute hypoxic rsspiratory failure secondary to acute on chronic COPD exacerbation Hyponatremia likely secondary to alcohol abuse Enterococcus bacteremia Staph hominis bacteremia Enterococcus UTI Alcohol abuse Hypertension Tobacco abuse BPH -clinically improved. with some mild wheeze -continue nebs, inhalers. continue oral steroid. -wean O2 as tolerated -nephrology following for hyponatremia. Sodium level improved, avoid HCTZ -no symptoms or signs of alcohol withdrawal. -switch levaquin from IV to PO to cover staph hominis. IV Ampicillin to treat enterococcus. Discharge with oral Levaquin and oral ampicillin per ID recommendation. -Repeat blood culture: no growth to date. ID following -Garza placed in ED, continue flomax 10/28. Urology follow up as outpatient. Voiding trial in 2 weeks. -patient to have family member bring trelegy inhaler -continue PT VTE: lovenox Code: full Dispo: Awaiting for placement in SNF rehab. can discharge once approved Time Spent Managing Pts Care (In Minutes): 35
[2020-11-06] MEDS: IPRATROPIUM BROM 0.5MG/2.5ML NEB PRN (20:05)
--- NOTE | 2020-11-06 22:19 | PN ---
Date of Progress Note: 11/06/2020 Subjective: The patient was admitted with acute kidney injury secondary to prerenal, hyponatremia secondary to beer potomania. The patient had cellulitis and UTI. The patient was started on antibiotic, started on IV hydration after IV fluid, sodium had been normalized. Physical Examination: Vital Signs: When I saw the patient, blood pressure 124/75, pulse of 77, afebrile. Chest: Clear to auscultation. Heart: S1, S2. Systolic murmur. Abdomen: Soft, nontender. Extremities: Trace edema. Neurologic: Alert. No focality. Faint tremor at in Upper ext . Laboratory Data: sodium 138, potassium 4.7, bicarb 37, BUN 13, creatinine 0.5. Current Medications: Include, 1. Inderal. 2. Lisinopril. 3. Spironolactone. Assessment And Plan: 1. Hyponatremia secondary to beer potomania, recovered, resolved, off IV fluid. We will continue to monitor the patient. 2. Hypertension, controlled, optimal. Continue current treatment. 3. Hypokalemia. Status post supplement, resolved. 4. Alcohol intoxication. Continue current treatment. We will follow up with the primary. 5. Deconditioning. Continue PT, OT. time spent examined the patient face to face s discussed with the patient placed order discussing the case with other body team member including nurses , discussing with other specialist include a hospitalist 45 min RIGO Voice ID: [id number] Report ID: [id number] MTDD
[2020-11-06 22:32] LABS: Urine Appearance CLOUDY; Urine Bilirubin NEGATIVE (NEG); Urine Blood 3+ (NEG); Urine Color DK YELLOW; Urine Glucose NEGATIVE (NEG); Urine Protein 1+ (NEG)
[2020-11-06 22:36] LABS: Urine Microscopic Reflex ORDER UMIC
[2020-11-07] MEDS: ALBUTEROL 2.5 MG/3 ML NEB SOL NEB SCH ×4 (02:05→20:10)
[2020-11-07 02:07] LABS: Urine Bacteria <20 /HPF (NONE SEEN); Urine RBC >50 /HPF (NONE SEEN); Urine Urothelial Cells <5 /HPF (NONE SEEN)
[2020-11-07] MEDS: AMPICILLIN SODIUM 1 GM in NA CHLORIDE 0.9% 100 ML IVPB SCH ×5 (05:21→18:00)
[2020-11-07] MEDS: ENOXAPARIN 40 MG/0.4 ML SQ SCH ×2 (09:00→10:14)
[2020-11-07] MEDS: HOME MED 1 EA UNK (Fluticasone/Umeclidin/Vilanter [Trelegy Ellipta 100-62.5-25] Blst.W.Dev IH SCH (09:00)
[2020-11-07] MEDS: ARFORMOTEROL TARTRATE 15 MCG/2 ML VIAL.NEB NEB SCH ×2 (09:10→20:20)
[2020-11-07] MEDS: IPRATROPIUM BROM 0.5MG/2.5ML NEB PRN ×3 (09:10→20:10)
[2020-11-07] MEDS: levoFLOXacin 500 MG TAB PO SCH (10:13)
[2020-11-07] MEDS: TAMSULOSIN 0.4 MG SR CAP PO SCH (10:13)
[2020-11-07] MEDS: AMLODIPINE 10 MG TAB PO SCH (10:13)
[2020-11-07] MEDS: PROPRANOLOL HCL 10 MG TAB PO SCH ×2 (10:13→20:53)
[2020-11-07] MEDS: NICOTINE 21 MG/PAT TD SCH (10:13)
[2020-11-07] MEDS: lisinopriL 20 MG TAB PO SCH (10:14)
[2020-11-07] MEDS: THIAMINE HCL 100 MG TABLET PO SCH (10:14)
[2020-11-07] MEDS: FOLIC ACID 1 MG TABLET PO SCH (10:14)
[2020-11-07] MEDS: predniSONE 20 MG TAB PO SCH ×2 (10:14→20:54)
--- NOTE | 2020-11-07 11:23 | P.PN ---
Subjective Date of Service: 11/07/20 Primary Care Provider: Dr. Leal Chief Complaint: Hypontaremia, COPD exacerbation Patient seen and examine st bedside with no acute complaints.patient completed course of ampicillin for UTI on 11/06. repeat urine culture pending. Review of Systems 10-point ROS is otherwise unremarkable Physical Examination - Vital Signs Temperature: 97.7 F Blood Pressure: 133/79 Pulse: 75 Respirations: 18 Pulse Ox (%): 97 - Studies Laboratory Last Values WBC 7.50 K/uL (4.3-10.9) 10/26/20 18:30 RBC 4.72 M/uL (4.33-5.43) 10/26/20 18:30 Hgb 16.4 g/dL (13.6-17.9) 10/26/20 18:30 Hct 48.2 % (39.6-49.0) 10/26/20 18:30 MCV 102.0 fL (80-100) H 10/26/20 18:30 MCH 34.7 pg (27.0-35.0) 10/26/20 18:30 MCHC 34.1 g/dL (32.0-36.0) 10/26/20 18:30 RDW 14.5 % (12.1-15.2) 10/26/20 18:30 Plt Count 156 K/uL (152-406) 10/26/20 18:30 MPV 7.7 fL (7.6-11.3) 10/26/20 18:30 Neutrophils % 84.9 % (41.7-73.7) H 10/26/20 18:30 Lymphocytes % 7.0 % (15.3-44.8) L 10/26/20 18:30 Monocytes % 7.7 % (3.3-12.3) 10/26/20 18:30 Eosinophils % 0.2 % (0-4.4) 10/26/20 18:30 Basophils % 0.2 % (0-1.3) 10/26/20 18:30 Absolute Neutrophils 6.4 K/uL (1.8-8.0) 10/26/20 18:30 Absolute Lymphocytes 0.5 K/uL (0.7-4.9) L 10/26/20 18:30 Absolute Monocytes 0.6 K/uL (0.1-1.3) 10/26/20 18:30 Absolute Eosinophils 0.0 K/uL (0-0.5) 10/26/20 18:30 Absolute Basophils 0.0 K/uL (0-0.5) 10/26/20 18:30 PT 11.2 SECONDS (9.5-12.5) 10/26/20 18:30 INR 0.97 10/26/20 18:30 Sodium 114 mmol/L (136-145) L* 10/26/20 18:30 Potassium 5.2 mmol/L (3.5-5.1) H 10/26/20 18:30 Chloride 77 mmol/L (98-107) L* 10/26/20 18:30 Carbon Dioxide 32 mmol/L (21-32) 10/26/20 18:30 BUN 5 mg/dL (7-18) L 10/26/20 18:30 Creatinine 0.64 mg/dL (0.55-1.3) 10/26/20 18:30 Estimated GFR > 90 mL/min (=/>90) 10/26/20 18:30 Glucose 109 mg/dL (74-106) H 10/26/20 18:30 Serum Osmolality 248 mOsm/kg (280-301) L 10/26/20 20:22 Uric Acid 3.0 mg/dL (3.5-7.2) L 10/26/20 18:30 Calcium 8.2 mg/dL (8.5-10.1) L 10/26/20 18:30 Magnesium 1.9 mg/dL (1.8-2.4) 10/26/20 18:30 Total Bilirubin 1.1 mg/dL (0.2-1.0) H 10/26/20 18:30 Direct Bilirubin 0.4 mg/dL (0-0.2) H 10/26/20 18:30 AST 60 U/L (15-37) H 10/26/20 18:30 ALT 47 U/L (12-78) 10/26/20 18:30 Alkaline Phosphatase 92 U/L (45-117) 10/26/20 18:30 Rapid Troponin I < 0.02 ng/mL (0.0-0.045) 10/26/20 18:30 NT-Pro-B Natriuret Pep 2043 pg/mL (<125) H 10/26/20 18:30 Serum Total Protein 6.0 g/dL (6.4-8.2) L 10/26/20 18:30 Albumin 3.2 g/dL (3.4-5.0) L 10/26/20 18:30 Globulin 2.8 g/dL (2.3-3.5) 10/26/20 18:30 Albumin/Globulin Ratio 1.1 (1.1-1.8) 10/26/20 18:30 TSH 0.983 uIU/mL (0.360-3.740) 10/26/20 18:30 Cortisol 51.52 ug/dL (SEE COMMENT) 10/26/20 20:22 Plasma/Serum Alcohol < 10 mg/dL (<10) 10/26/20 18:30 SARS-CoV-2 RNA (RT-PCR) Negative (NEGATIVE) 10/26/20 18:36 Assessment And Plan - Plan Physical Exam: General: Alert, In no apparent distress HEENT: Atraumatic, Normocephalic Neck: Supple, 2+ carotid pulse no bruit Respiratory: Expiratory wheezes Cardiovascular: No edema, Regular rate/rhythm Gastrointestinal: Normal bowel sounds, Non-distended Musculoskeletal: No clubbing, No swelling Integumentary: No rashes, No breakdown, No significant lesion Antibioitcs: levaqin start: 10/31 stop: 11/14 Indication: bacteremia Ampicillin start: 10/30 Stop: 11/06 Indication: UTI Assessment -bacteremia -UTI -COPD exacerbation Plan: -blood cultures grew Staph hominis sensitive to levaqin. Repeat blood cultures on 10/31 showed no growth, continue antibiotic therapy 2 weeks after negative blood culture. Can place patient on p.o. levaqin prior to discharge. -urine grew Enterococcus faecalis sensitive to ampicillin. Ptient has completed course of antibiotic-repeat urine culture pending. -continue IV Levaquin and ampicillin. After negative blood culture continue Levaquin for 2 weeks. For UTI continue ampicillin for 7-10 days. -patient still complains of SOB-pulm following -medical management per primary team -plan of care discussed with Dr. Vera Thank you for consultation
--- NOTE | 2020-11-07 18:09 | P.PN ---
Subjective Date of Service: 11/07/20 Primary Care Provider: Dr. Leal Chief Complaint: Hypontaremia, COPD exacerbation Subjective: No new changes (with chas hematuria overnight, blood-tinged, denies any pain. otherwise feels the same. family still haven't dropped off trelegy inhaler) Review of Systems 10-point ROS is otherwise unremarkable Physical Examination - Vital Signs Temperature: 97.8 F Blood Pressure: 119/65 Pulse: 90 Respirations: 19 Pulse Ox (%): 95 - Physical Exam Other Physical/Emotional Findings: General: Alert, In no apparent distress. HEENT: Atraumatic, Normocephalic. Neck: Supple, 2+ carotid pulse no bruit. Respiratory: Expiratory wheezes. Cardiovascular: No edema, Regular rate/rhythm. Gastrointestinal: Normal bowel sounds, Non-distended. Musculoskeletal: No clubbing, No swelling. Integumentary: No rashes, No breakdown, No significant lesion Assessment & Plan Physician Review Additional Text: Physical Exam General: Alert, In no apparent distress HEENT: Mucous membr. moist/pink, sclera anicteric, normal conjunctiva Pulm: mild expiratory wheeze bilaterally, nonlabored respirations on 2L NC CV: RRR, no edema Abd: soft, NTND Ext: no edema, no rash Neuro: normal affect Villa in place, red tinged urine in bag, clear in catheter Problem List: acute hypoxic rsspiratory failure secondary to acute on chronic COPD exacerbation Hyponatremia likely secondary to alcohol abuse Enterococcus bacteremia Staph hominis bacteremia Enterococcus UTI Alcohol abuse Hypertension Tobacco abuse BPH -clinically improved. with some mild wheeze, continue nebs, inhalers. continue oral steroid. -wean O2 as tolerated -nephrology following for hyponatremia. Sodium level improved, avoid HCTZ -no symptoms or signs of alcohol withdrawal. -switch levaquin from IV to PO to cover staph hominis. IV Ampicillin to treat enterococcus. Discharge with oral Levaquin and oral ampicillin per ID recommendation. -Repeat blood culture: no growth to date. ID following -Villa placed in ED, continue flomax 10/28. Urology follow up as outpatient. Voiding trial in 2 weeks. -Hematuria - likely from villa/trauma vs UTI, clear urine in tubing, hold lovenox -patient to have family member bring trelegy inhaler -continue PT VTE: lovenox Code: full Dispo: Awaiting for placement in SNF rehab. can discharge once approved Time Spent Managing Pts Care (In Minutes): 35
--- NOTE | 2020-11-07 22:57 | P.PN ---
Subjective Date of Service: 11/08/20 Primary Care Provider: Dr. Leal Chief Complaint: Hypontaremia, COPD exacerbation Physical Examination - Vital Signs Temperature: 97.7 F Blood Pressure: 118/61 Pulse: 98 Respirations: 18 Pulse Ox (%): 98 - Physical Exam Other Physical/Emotional Findings: General: Alert, In no apparent distress. HEENT: Atraumatic, Normocephalic. Neck: Supple, 2+ carotid pulse no bruit. Respiratory: Expiratory wheezes. Cardiovascular: No edema, Regular rate/rhythm. Gastrointestinal: Normal bowel sounds, Non-distended. Musculoskeletal: No clubbing, No swelling. Integumentary: No rashes, No breakdown, No significant lesion Assessment And Plan - Plan # Hyponatremia Resolved [place] po fluid intake # Enterococcus UTI/bacteremia; Staph hominis bacteremia Cont antibiotics # Acute COPD exacerbation Improving Mngt per other services # Htn Cont current regimen Physician Review Additional Text: Physical Exam General: Alert, In no apparent distress HEENT: Mucous membr. moist/pink, sclera anicteric, normal conjunctiva Pulm: mild expiratory wheeze bilaterally, nonlabored respirations on 2L NC CV: RRR, no edema Abd: soft, NTND Ext: no edema, no rash Neuro: normal affect Villa in place, red tinged urine in bag, clear in catheter Problem List: acute hypoxic rsspiratory failure secondary to acute on chronic COPD exacerbat ion Hyponatremia likely secondary to alcohol abuse Enterococcus bacteremia Staph hominis bacteremia Enterococcus UTI Alcohol abuse Hypertension Tobacco abuse BPH -clinically improved. with some mild wheeze, continue nebs, inhalers. continue oral steroid. -wean O2 as tolerated -nephrology following for hyponatremia. Sodium level improved, avoid HCTZ -no symptoms or signs of alcohol withdrawal. -switch levaquin from IV to PO to cover staph hominis. IV Ampicillin to treat enterococcus. Discharge with oral Levaquin and oral ampicillin per ID recommendation. -Repeat blood culture: no growth to date. ID following -Villa placed in ED, continue flomax 10/28. Urology follow up as outpatient. Voiding trial in 2 weeks. -Hematuria - likely from villa/trauma vs UTI, clear urine in tubing, hold lovenox -patient to have family member bring trelegy inhaler -continue PT VTE: lovenox Code: full Dispo: Awaiting for placement in SNF rehab. can discharge once approved
[2020-11-08] MEDS: AMPICILLIN SODIUM 1 GM in NA CHLORIDE 0.9% 100 ML IVPB SCH ×4 (00:38→18:00)
[2020-11-08] MEDS: ALBUTEROL 2.5 MG/3 ML NEB SOL NEB SCH ×4 (02:07→19:40)
[2020-11-08 07:01] LABS: Absolute Lymphocytes (CBC) 1.1 K/uL (0.7-4.9); Basophils % 0.5 % (0-1.3); Hematocrit 40.5 % (39.6-49.0); Lymphocytes % 8.7 % (15.3-44.8)
[2020-11-08 07:20] LABS: ALT/SGPT 60 U/L (12-78); AST/SGOT 14 U/L (15-37); BUN Blood Urea Nitrogen 15 mg/dL (7-18); Bicarbonate 35 mmol/L (21-32); Bilirubin Total 0.2 mg/dL (0.2-1.0); Glucose Level 153 mg/dL (74-106); Magnesium 2.4 mg/dL (1.8-2.4); Potassium 4.6 mmol/L (3.5-5.1); Protein, Total 5.7 g/dL (6.4-8.2); Sodium Level 136 mmol/L (136-145)
[2020-11-08 07:23] LABS: Alkaline Phosphatase ND U/L (45-117)
[2020-11-08] MEDS: HOME MED 1 EA UNK (Fluticasone/Umeclidin/Vilanter [Trelegy Ellipta 100-62.5-25] Blst.W.Dev IH SCH (09:00)
[2020-11-08] MEDS: ARFORMOTEROL TARTRATE 15 MCG/2 ML VIAL.NEB NEB SCH ×2 (09:03→19:50)
[2020-11-08] MEDS: FOLIC ACID 1 MG TABLET PO SCH (10:18)
[2020-11-08] MEDS: levoFLOXacin 500 MG TAB PO SCH (10:18)
[2020-11-08] MEDS: lisinopriL 20 MG TAB PO SCH (10:18)
[2020-11-08] MEDS: THIAMINE HCL 100 MG TABLET PO SCH (10:18)
[2020-11-08] MEDS: AMLODIPINE 10 MG TAB PO SCH (10:18)
[2020-11-08] MEDS: TAMSULOSIN 0.4 MG SR CAP PO SCH (10:19)
[2020-11-08] MEDS: PROPRANOLOL HCL 10 MG TAB PO SCH ×2 (10:19→21:15)
[2020-11-08] MEDS: predniSONE 20 MG TAB PO SCH ×2 (10:19→21:15)
[2020-11-08] MEDS: NICOTINE 21 MG/PAT TD SCH (10:19)
--- NOTE | 2020-11-08 12:59 | P.PN ---
Subjective Date of Service: 11/09/20 Primary Care Provider: Dr. Leal Chief Complaint: Hypontaremia, COPD exacerbation Subjective: No new changes Physical Examination - Vital Signs Temperature: 97.1 F Blood Pressure: 111/69 Pulse: 87 Respirations: 16 Pulse Ox (%): 97 - Physical Exam General: In no apparent distress HEENT: Atraumatic, Normocephalic Neck: Supple, Without JVD or thyroid abnormality Respiratory: Clear to auscultation bilaterally Cardiovascular: No murmurs Gastrointestinal: Soft and benign, Non-distended Musculoskeletal: No clubbing Integumentary: No rashes Neurological: Normal tone Other Physical/Emotional Findings: General: Alert, In no apparent distress. HEENT: Atraumatic, Normocephalic. Neck: Supple, 2+ carotid pulse no bruit. Respiratory: Expiratory wheezes. Cardiovascular: No edema, Regular rate/rhythm. Gastrointestinal: Normal bowel sounds, Non-distended. Musculoskeletal: No clubbing, No swelling. Integumentary: No rashes, No breakdown, No significant lesion Assessment And Plan - Plan # Hyponatremia Resolved Cont liberal po fluid intake # Enterococcus UTI/bacteremia; Staph hominis bacteremia On antibiotics # Acute COPD exacerbation Improving Mngt per other services # Htn Cont current regimen # Dispo Ok to dc today F/u in renal clinic Physician Review Additional Text: Physical Exam General: Alert, In no apparent distress HEENT: Mucous membr. moist/pink, sclera anicteric, normal conjunctiva Pulm: mild expiratory wheeze bilaterally, nonlabored respirations on 2L NC CV: RRR, no edema Abd: soft, NTND Ext: no edema, no rash Neuro: normal affect Villa in place, red tinged urine in bag, clear in catheter Problem List: acute hypoxic rsspiratory failure secondary to acute on chronic COPD exacerbation Hyponatremia likely secondary to alcohol abuse Enterococcus bacteremia Staph hominis bacteremia Enterococcus UTI Alcohol abuse Hypertension Tobacco abuse BPH -clinically improved. with some mild wheeze, continue nebs, inhalers. continue oral steroid. -wean O2 as tolerated -nephrology following for hyponatremia. Sodium level improved, avoid HCTZ -no symptoms or signs of alcohol withdrawal. -switch levaquin from IV to PO to cover staph hominis. IV Ampicillin to treat enterococcus. Discharge with oral Levaquin and oral ampicillin per ID recommendation. -Repeat blood culture: no growth to date. ID following -Villa placed in ED, continue flomax 10/28. Urology follow up as outpatient. Voiding trial in 2 weeks. -Hematuria - likely from villa/trauma vs UTI, clear urine in tubing, hold lovenox -patient to have family member bring trelegy inhaler -continue PT VTE: lovenox Code: full Dispo: Awaiting for placement in SNF rehab. can discharge once approved
[2020-11-08] MEDS: IPRATROPIUM BROM 0.5MG/2.5ML NEB PRN ×2 (14:04→19:40)
--- NOTE | 2020-11-08 16:33 | P.PN ---
Subjective Date of Service: 11/08/20 Primary Care Provider: Dr. Leal Chief Complaint: Hypontaremia, COPD exacerbation Subjective: No new changes (Family brought trelegy inhaler, feels he is breathing a little bit better) Review of Systems 10-point ROS is otherwise unremarkable Physical Examination - Vital Signs Temperature: 97.1 F Blood Pressure: 111/69 Pulse: 87 Respirations: 16 Pulse Ox (%): 97 - Physical Exam Other Physical/Emotional Findings: General: Alert, In no apparent distress. HEENT: Atraumatic, Normocephalic. Neck: Supple, 2+ carotid pulse no bruit. Respiratory: Expiratory wheezes. Cardiovascular: No edema, Regular rate/rhythm. Gastrointestinal: Normal bowel sounds, Non-distended. Musculoskeletal: No clubbing, No swelling. Integumentary: No rashes, No breakdown, No significant lesion Assessment & Plan Physician Review Additional Text: Physical Exam General: Alert, In no apparent distress HEENT: Mucous membr. moist/pink, sclera anicteric, normal conjunctiva Pulm: mild expiratory wheeze bilaterally, nonlabored respirations on 2L NC CV: RRR, no edema Abd: soft, NTND Ext: no edema, no rash Villa in place, red tinged urine in bag Problem List: acute hypoxic rsspiratory failure secondary to acute on chronic COPD exacerbation Hyponatremia likely secondary to alcohol abuse Enterococcus bacteremia Staph hominis bacteremia Enterococcus UTI Alcohol abuse Hypertension Tobacco abuse BPH -clinically improved. with some mild wheeze, continue nebs, inhalers. continue oral steroid. -wean O2 as tolerated -nephrology following for hyponatremia. Sodium level improved, avoid HCTZ -no symptoms or signs of alcohol withdrawal. -switched levaquin from IV to PO to cover staph hominis. IV Ampicillin to treat enterococcus. Discharge with oral Levaquin and oral ampicillin per ID recommendation. -Repeat blood culture: no growth to date. ID following -Villa placed in ED, continue flomax 10/28. Urology follow up as outpatient. Voiding trial in 2 weeks. -Hematuria - likely from villa/trauma vs UTI, hold lovenox -continue home trelegy inhaler -continue PT VTE: lovenox Code: full Dispo: Awaiting for placement in SNF rehab. can discharge once approved patient unsafe to discharge home, very debilitated Time Spent Managing Pts Care (In Minutes): 35
[2020-11-09] MEDS: AMPICILLIN SODIUM 1 GM in NA CHLORIDE 0.9% 100 ML IVPB SCH ×4 (00:45→18:24)
[2020-11-09] MEDS: ALBUTEROL 2.5 MG/3 ML NEB SOL NEB SCH ×4 (02:30→19:50)
[2020-11-09 05:36] LABS: BUN Blood Urea Nitrogen 15 mg/dL (7-18); Bicarbonate 36 mmol/L (21-32); Glucose Level 130 mg/dL (74-106); Phosphorus 4.3 mg/dL (2.5-4.9); Potassium 4.8 mmol/L (3.5-5.1); Sodium Level 137 mmol/L (136-145)
[2020-11-09] MEDS: IPRATROPIUM BROM 0.5MG/2.5ML NEB PRN ×2 (08:15→13:35)
[2020-11-09] MEDS: ARFORMOTEROL TARTRATE 15 MCG/2 ML VIAL.NEB NEB SCH ×2 (08:15→19:50)
[2020-11-09] MEDS: HOME MED 1 EA UNK (Fluticasone/Umeclidin/Vilanter [Trelegy Ellipta 100-62.5-25] Blst.W.Dev IH SCH (09:00)
[2020-11-09] MEDS: AMLODIPINE 10 MG TAB PO SCH (10:02)
[2020-11-09] MEDS: NICOTINE 21 MG/PAT TD SCH (10:02)
[2020-11-09] MEDS: predniSONE 20 MG TAB PO SCH ×2 (10:02→20:54)
[2020-11-09] MEDS: FOLIC ACID 1 MG TABLET PO SCH (10:02)
[2020-11-09] MEDS: PROPRANOLOL HCL 10 MG TAB PO SCH ×2 (10:02→20:53)
[2020-11-09] MEDS: lisinopriL 20 MG TAB PO SCH (10:02)
[2020-11-09] MEDS: THIAMINE HCL 100 MG TABLET PO SCH (10:03)
[2020-11-09] MEDS: TAMSULOSIN 0.4 MG SR CAP PO SCH (10:03)
[2020-11-09] MEDS: levoFLOXacin 500 MG TAB PO SCH (10:03)
--- NOTE | 2020-11-09 13:31 | P.PN ---
Subjective Date of Service: 11/09/20 Primary Care Provider: Dr. Leal Chief Complaint: Hypontaremia, COPD exacerbation Subjective: No new changes (feels he is breathing better now that he has been using his Trelegy inhaler for 3 days Urine is clearing up, no longer blood- tinged) Review of Systems 10-point ROS is otherwise unremarkable Physical Examination - Vital Signs Temperature: 97.7 F Blood Pressure: 113/70 Pulse: 77 Respirations: 20 Pulse Ox (%): 96 - Physical Exam Other Physical/Emotional Findings: General: Alert, In no apparent distress. HEENT: Atraumatic, Normocephalic. Neck: Supple, 2+ carotid pulse no bruit. Respiratory: Expiratory wheezes. Cardiovascular: No edema, Regular rate/rhythm. Gastrointestinal: Normal bowel sounds, Non-distended. Musculoskeletal: No clubbing, No swelling. Integumentary: No rashes, No breakdown, No significant lesion Assessment & Plan Physician Review Additional Text: Physical Exam General: Alert, In no apparent distress HEENT: sclera anicteric, normal conjunctiva Pulm: mild expiratory wheeze bilaterally, nonlabored respirations on 2L NC CV: RRR, no edema Abd: soft, NTND Ext: no edema, no rash Villa in place, urine yellow, no blood seen Problem List: acute hypoxic rsspiratory failure secondary to acute on chronic COPD exacerbation Hyponatremia likely secondary to alcohol abuse Enterococcus bacteremia Staph hominis bacteremia Enterococcus UTI Alcohol abuse Hypertension Tobacco abuse BPH -clinically improved. with some mild wheeze, continue nebs, inhalers. continue oral steroid. -wean O2 as tolerated -nephrology following for hyponatremia. Sodium level improved, avoid HCTZ -no symptoms or signs of alcohol withdrawal. -continue Levaquin to cover staph hominis. IV Ampicillin to treat enterococcus. Discharge with oral Levaquin and oral ampicillin per ID recommendation. -Repeat blood culture: no growth to date. ID following -Villa placed in ED, continue flomax 10/28. Urology follow up as outpatient. Voiding trial in 2 weeks. -Hematuria - likely from villa/trauma vs UTI, resolved after holding Lovenox -continue home trelegy inhaler -continue PT VTE: SCDs Code: full Dispo: Awaiting for placement in SNF rehab. can discharge once approved patient unsafe to discharge home, very debilitated Time Spent Managing Pts Care (In Minutes): 35
[2020-11-10] MEDS: AMPICILLIN SODIUM 1 GM in NA CHLORIDE 0.9% 100 ML IVPB SCH ×4 (00:55→17:31)
[2020-11-10] MEDS: ALBUTEROL 2.5 MG/3 ML NEB SOL NEB SCH ×4 (02:05→19:15)
[2020-11-10] MEDS: IPRATROPIUM BROM 0.5MG/2.5ML NEB PRN (08:20)
[2020-11-10] MEDS: ARFORMOTEROL TARTRATE 15 MCG/2 ML VIAL.NEB NEB SCH ×2 (08:20→19:15)
[2020-11-10] MEDS: HOME MED 1 EA UNK (Fluticasone/Umeclidin/Vilanter [Trelegy Ellipta 100-62.5-25] Blst.W.Dev IH SCH (09:00)
[2020-11-10] MEDS: FOLIC ACID 1 MG TABLET PO SCH (09:39)
[2020-11-10] MEDS: TAMSULOSIN 0.4 MG SR CAP PO SCH (09:39)
[2020-11-10] MEDS: lisinopriL 20 MG TAB PO SCH (09:39)
[2020-11-10] MEDS: NICOTINE 21 MG/PAT TD SCH (09:39)
[2020-11-10] MEDS: levoFLOXacin 500 MG TAB PO SCH (09:39)
[2020-11-10] MEDS: PROPRANOLOL HCL 10 MG TAB PO SCH ×2 (09:40→20:55)
[2020-11-10] MEDS: predniSONE 20 MG TAB PO SCH ×2 (09:40→20:55)
[2020-11-10] MEDS: THIAMINE HCL 100 MG TABLET PO SCH (09:40)
[2020-11-10] MEDS: AMLODIPINE 10 MG TAB PO SCH (09:40)
--- NOTE | 2020-11-10 14:59 | P.PN ---
Subjective Date of Service: 11/10/20 Primary Care Provider: Dr. Leal Chief Complaint: Hypontaremia, COPD exacerbation Subjective: No new changes (no acute events. doing well. villa clear, breathing better) Review of Systems 10-point ROS is otherwise unremarkable Physical Examination - Vital Signs Temperature: 97.7 F Blood Pressure: 115/59 Pulse: 75 Respirations: 20 Pulse Ox (%): 98 - Physical Exam Other Physical/Emotional Findings: . Assessment & Plan Physician Review Additional Text: Physical Exam General: Alert, In no apparent distress HEENT: sclera anicteric, normal conjunctiva Pulm: mild expiratory wheeze bilaterally, nonlabored respirations on 2L NC CV: RRR, no edema Abd: soft, NTND Ext: no edema, no rash Villa in place, urine yellow Problem List: acute hypoxic rsspiratory failure secondary to acute on chronic COPD exacerbation Hyponatremia likely secondary to alcohol abuse Enterococcus bacteremia Staph hominis bacteremia Enterococcus UTI Alcohol abuse Hypertension Tobacco abuse BPH -clinically improved. with some mild wheeze, continue nebs, inhalers. continue oral steroid. -wean O2 as tolerated -nephrology was consulted for hyponatremia. Sodium level improved, avoid HCTZ / resolved -no symptoms or signs of alcohol withdrawal. -continue Levaquin to cover staph hominis. Ampicillin to treat enterococcus. Discharge with oral Levaquin and oral ampicillin per ID recommendation. 2 week course since negative culture -Villa placed in ED, continue flomax 10/28. Urology follow up as outpatient. Voiding trial in 2 weeks. -Hematuria - likely from villa/trauma vs UTI, resolved after holding Lovenox -continue home trelegy inhaler -continue PT VTE: SCDs Code: full Dispo: Awaiting for placement in SNF rehab. can discharge once approved patient unsafe to discharge home, very debilitated Time Spent Managing Pts Care (In Minutes): 35
[2020-11-11] MEDS: AMPICILLIN SODIUM 1 GM in NA CHLORIDE 0.9% 100 ML IVPB SCH ×2 (00:29→06:36)
[2020-11-11] MEDS: ALBUTEROL 2.5 MG/3 ML NEB SOL NEB SCH ×4 (02:05→19:25)
[2020-11-11] MEDS: ARFORMOTEROL TARTRATE 15 MCG/2 ML VIAL.NEB NEB SCH ×2 (08:30→19:25)
[2020-11-11] MEDS: HOME MED 1 EA UNK (Fluticasone/Umeclidin/Vilanter [Trelegy Ellipta 100-62.5-25] Blst.W.Dev IH SCH (09:00)
[2020-11-11] MEDS: NICOTINE 21 MG/PAT TD SCH (09:18)
[2020-11-11] MEDS: levoFLOXacin 500 MG TAB PO SCH (09:19)
[2020-11-11] MEDS: PROPRANOLOL HCL 10 MG TAB PO SCH ×2 (09:19→20:54)
[2020-11-11] MEDS: FOLIC ACID 1 MG TABLET PO SCH (09:19)
[2020-11-11] MEDS: THIAMINE HCL 100 MG TABLET PO SCH (09:19)
[2020-11-11] MEDS: TAMSULOSIN 0.4 MG SR CAP PO SCH (09:20)
[2020-11-11] MEDS: predniSONE 20 MG TAB PO SCH ×2 (09:20→20:55)
[2020-11-11] MEDS: lisinopriL 20 MG TAB PO SCH (09:20)
--- NOTE | 2020-11-11 12:08 | P.PN ---
Subjective Date of Service: 11/11/20 Primary Care Provider: Dr. Leal Chief Complaint: Hypontaremia, COPD exacerbation Patient seen and examine st bedside with no acute complaints. Repeat urine culture negative. Denies any acute complaints. Review of Systems 10-point ROS is otherwise unremarkable Physical Examination - Vital Signs Temperature: 97.6 F Blood Pressure: 123/76 Pulse: 91 Respirations: 18 Pulse Ox (%): 97 - Physical Exam Other Physical/Emotional Findings: . - Studies Laboratory Last Values WBC 7.50 K/uL (4.3-10.9) 10/26/20 18:30 RBC 4.72 M/uL (4.33-5.43) 10/26/20 18:30 Hgb 16.4 g/dL (13.6-17.9) 10/26/20 18:30 Hct 48.2 % (39.6-49.0) 10/26/20 18:30 MCV 102.0 fL (80-100) H 10/26/20 18:30 MCH 34.7 pg (27.0-35.0) 10/26/20 18:30 MCHC 34.1 g/dL (32.0-36.0) 10/26/20 18:30 RDW 14.5 % (12.1-15.2) 10/26/20 18:30 Plt Count 156 K/uL (152-406) 10/26/20 18:30 MPV 7.7 fL (7.6-11.3) 10/26/20 18:30 Neutrophils % 84.9 % (41.7-73.7) H 10/26/20 18:30 Lymphocytes % 7.0 % (15.3-44.8) L 10/26/20 18:30 Monocytes % 7.7 % (3.3-12.3) 10/26/20 18:30 Eosinophils % 0.2 % (0-4.4) 10/26/20 18:30 Basophils % 0.2 % (0-1.3) 10/26/20 18:30 Absolute Neutrophils 6.4 K/uL (1.8-8.0) 10/26/20 18:30 Absolute Lymphocytes 0.5 K/uL (0.7-4.9) L 10/26/20 18:30 Absolute Monocytes 0.6 K/uL (0.1-1.3) 10/26/20 18:30 Absolute Eosinophils 0.0 K/uL (0-0.5) 10/26/20 18:30 Absolute Basophils 0.0 K/uL (0-0.5) 10/26/20 18:30 PT 11.2 SECONDS (9.5-12.5) 10/26/20 18:30 INR 0.97 10/26/20 18:30 Sodium 114 mmol/L (136-145) L* 10/26/20 18:30 Potassium 5.2 mmol/L (3.5-5.1) H 10/26/20 18:30 Chloride 77 mmol/L (98-107) L* 10/26/20 18:30 Carbon Dioxide 32 mmol/L (21-32) 10/26/20 18:30 BUN 5 mg/dL (7-18) L 10/26/20 18:30 Creatinine 0.64 mg/dL (0.55-1.3) 10/26/20 18:30 Estimated GFR > 90 mL/min (=/>90) 10/26/20 18:30 Glucose 109 mg/dL (74-106) H 10/26/20 18:30 Serum Osmolality 248 mOsm/kg (280-301) L 10/26/20 20:22 Uric Acid 3.0 mg/dL (3.5-7.2) L 10/26/20 18:30 Calcium 8.2 mg/dL (8.5-10.1) L 10/26/20 18:30 Magnesium 1.9 mg/dL (1.8-2.4) 10/26/20 18:30 Total Bilirubin 1.1 mg/dL (0.2-1.0) H 10/26/20 18:30 Direct Bilirubin 0.4 mg/dL (0-0.2) H 10/26/20 18:30 AST 60 U/L (15-37) H 10/26/20 18:30 ALT 47 U/L (12-78) 10/26/20 18:30 Alkaline Phosphatase 92 U/L (45-117) 10/26/20 18:30 Rapid Troponin I < 0.02 ng/mL (0.0-0.045) 10/26/20 18:30 NT-Pro-B Natriuret Pep 2043 pg/mL (<125) H 10/26/20 18:30 Serum Total Protein 6.0 g/dL (6.4-8.2) L 10/26/20 18:30 Albumin 3.2 g/dL (3.4-5.0) L 10/26/20 18:30 Globulin 2.8 g/dL (2.3-3.5) 10/26/20 18:30 Albumin/Globulin Ratio 1.1 (1.1-1.8) 10/26/20 18:30 TSH 0.983 uIU/mL (0.360-3.740) 10/26/20 18:30 Cortisol 51.52 ug/dL (SEE COMMENT) 10/26/20 20:22 Plasma/Serum Alcohol < 10 mg/dL (<10) 10/26/20 18:30 SARS-CoV-2 RNA (RT-PCR) Negative (NEGATIVE) 10/26/20 18:36 Assessment And Plan - Plan Physical Exam: General: Alert, In no apparent distress HEENT: Atraumatic, Normocephalic Neck: Supple, 2+ carotid pulse no bruit Respiratory: Expiratory wheezes Cardiovascular: No edema, Regular rate/rhythm Gastrointestinal: Normal bowel sounds, Non-distended Musculoskeletal: No clubbing, No swelling Integumentary: No rashes, No breakdown, No significant lesion Antibioitcs: levaqin start: 10/31 stop: 11/14 Indication: bacteremia Ampicillin start: 10/30 Stop: 11/06 Indication: UTI Assessment -bacteremia -UTI -COPD exacerbation Plan: -blood cultures grew Staph hominis and Enterococcus faecalis sensitive to levaqin. Repeat blood cultures on 10/31 showed no growth, continue antibiotic therapy 2 weeks after negative blood culture. Can place patient on p.o. levaqin prior to discharge. -urine grew Enterococcus faecalis sensitive to ampicillin. Ptient has completed course of antibiotic-repeat urine culture pending. -continue IV Levaquin and ampicillin. After negative blood culture continue Levaquin for 2 weeks. For UTI continue ampicillin for 7-10 days. -patient still complains of SOB-pulm following -medical management per primary team -plan of care discussed with Dr. Vera Thank you for consultation
--- NOTE | 2020-11-11 16:55 | P.PN ---
Subjective Date of Service: 11/11/20 Primary Care Provider: Dr. Leal Chief Complaint: Hypontaremia, COPD exacerbation Subjective: No new changes (No significant new changes, patient stable, without complaints, no blood in urine) Review of Systems 10-point ROS is otherwise unremarkable Physical Examination - Vital Signs Temperature: 97.3 F Blood Pressure: 104/63 Pulse: 91 Respirations: 18 Pulse Ox (%): 95 - Physical Exam Other Physical/Emotional Findings: . Assessment & Plan Physician Review Additional Text: Physical Exam General: Alert, In no apparent distress HEENT: sclera anicteric, normal conjunctiva Pulm: mild expiratory wheeze bilaterally, nonlabored respirations on 2L NC CV: RRR, no edema Abd: soft, NTND Ext: no edema, no rash Villa in place, urine yellow Problem List: acute hypoxic rsspiratory failure secondary to acute on chronic COPD exacerbation Hyponatremia likely secondary to alcohol abuse Enterococcus bacteremia Staph hominis bacteremia Enterococcus UTI Alcohol abuse Hypertension Tobacco abuse BPH henaturia, resolved -clinically improved. continues with some mild wheeze, continue nebs, inhalers. continue oral steroid. -wean O2 as tolerated -nephrology was consulted for hyponatremia. Sodium level improved, avoid HCTZ / resolved -no symptoms or signs of alcohol withdrawal. -continue Levaquin to cover staph hominis/enterococcus. Discharge with oral Levaquin per ID recommendation. 2 week course since negative culture -Villa placed in ED, continue flomax 10/28. Urology follow up as outpatient. Voiding trial in 2 weeks. -Hematuria - villa/trauma vs recurrent / resistant UTI, Hgb stable, repeat UA, resolved after discontinuation of lovenox, continue SCDs -continue home trelegy inhaler -continue PT VTE: SCDs Code: full Dispo: Awaiting for placement in SNF rehab. can discharge once approved patient unsafe to discharge home, very debilitated although no insurance auth was obtained, pt would not have been discharged last week due to the new onset chas hematuria in setting of undergoing treatment for UTI and urinary retention. Time Spent Managing Pts Care (In Minutes): 35
[2020-11-11] MEDS: IPRATROPIUM BROM 0.5MG/2.5ML NEB PRN (19:25)
--- NOTE | 2020-11-11 22:16 | PN ---
Date of Progress Note: 11/11/2020 Chief Complaint: Hyponatremia, COPD exacerbation, urinary retention, bladder outlet obstruction. Subjective: The patient came to the hospital and was found to have severe hyponatremia. Subsequentl y, he was treated with IV fluids and sodium chloride tablet. Hypernatremia has improved and resolved . The patient has history of alcohol intake and magnesium level was evaluated, phosphorus was checke d, and the patient received replacement for electrolyte abnormalities. He was found to have enteroco ccus post UTI and Staph hominis bacteremia, and he remains on antibiotics. Review of Systems: Denies PND or orthopnea. Physical Examination: Lungs: Diminished breath sounds at bases. Heart: S1, S2. Abdomen: Soft, benign. Extremities: No edema. Impression And Plan: 1.Hypertension. Continue current medication. 2.Hyponatremia. Sodium level has improved and stabilized. 3.Acute chronic obstructive pulmonary disease exacerbation. Continue inhalers. 4.Enterococcus bacteremia and Staph hominis bacteremia. Continue antibiotics. 5.Bladder outlet obstruction. Plan is to remove catheter and check bladder ultrasound to rule out u rinary retention. CHELO/THIAGOL Voice ID: [id number] Report ID: [id number]
[2020-11-12] MEDS: IPRATROPIUM BROM 0.5MG/2.5ML NEB PRN (02:45)
[2020-11-12] MEDS: ALBUTEROL 2.5 MG/3 ML NEB SOL NEB SCH ×4 (02:45→19:40)
[2020-11-12] MEDS: ARFORMOTEROL TARTRATE 15 MCG/2 ML VIAL.NEB NEB SCH ×2 (07:52→19:40)
[2020-11-12] MEDS: HOME MED 1 EA UNK (Fluticasone/Umeclidin/Vilanter [Trelegy Ellipta 100-62.5-25] Blst.W.Dev IH SCH (09:00)
[2020-11-12] MEDS: NICOTINE 21 MG/PAT TD SCH (09:00)
[2020-11-12] MEDS: ENOXAPARIN 40 MG/0.4 ML SQ SCH (09:00)
[2020-11-12] MEDS: predniSONE 20 MG TAB PO SCH ×2 (09:33→20:49)
[2020-11-12] MEDS: lisinopriL 20 MG TAB PO SCH (09:33)
[2020-11-12] MEDS: PROPRANOLOL HCL 10 MG TAB PO SCH ×2 (09:33→20:49)
[2020-11-12] MEDS: THIAMINE HCL 100 MG TABLET PO SCH (09:33)
[2020-11-12] MEDS: FOLIC ACID 1 MG TABLET PO SCH (09:33)
[2020-11-12] MEDS: TAMSULOSIN 0.4 MG SR CAP PO SCH (09:34)
[2020-11-12] MEDS: levoFLOXacin 500 MG TAB PO SCH (09:34)
--- NOTE | 2020-11-12 10:53 | P.PN ---
Subjective Date of Service: 11/12/20 Primary Care Provider: Dr. Leal Chief Complaint: Hypontaremia, COPD exacerbation Patient seen and examine st bedside with no acute complaints. Awaiting repeat CBC. Normal vital signs. Review of Systems 10-point ROS is otherwise unremarkable Physical Examination - Vital Signs Temperature: 97.0 F Blood Pressure: 107/68 Pulse: 65 Respirations: 19 Pulse Ox (%): 96 - Physical Exam Other Physical/Emotional Findings: . - Studies Active Medications Albuterol Sulfate (Albuterol 2.5 Mg/3 Ml Neb Yudith) 2.5 mg NEB [id number] [facility] Last Admin: 11/12/20 07:52 Dose: 2.5 mg Documented by: Arformoterol Tartrate (Arformoterol Tartrate 15 Mcg/2 Ml Vial.Neb) 15 mcg NEB BIDRESP [facility] Last Admin: 11/12/20 07:52 Dose: 15 mcg Documented by: Enoxaparin Sodium (Enoxaparin 40 Mg/0.4 Ml) 40 mg SQ DAILY [facility] Last Admin: 11/12/20 09:00 Dose: 40 mg Documented by: Flumazenil (Flumazenil 0.1 Mg/Ml (5 Ml Vial)) 0.2 mg IV 1X PRN PRN Reason: RESP <8,STUPOROUS/UNAROUSABLE Folic Acid (Folic Acid 1 Mg Tablet) 1 mg PO DAILY [facility] Last Admin: 11/12/20 09:33 Dose: 1 mg Documented by: Home Med (Fluticasone/Umeclidin/Vilanter [Trelegy Ellipta 100-62.5-25]) 1 each IH DAILY [facility] Last Admin: 11/12/20 09:00 Dose: 1 each Documented by: Ipratropium [place] (Ipratropium Brom 0.5mg/2.5ml) 0.5 mg NEB Q6HP PRN PRN Reason: SHORTNESS OF BREATH Last Admin: 11/12/20 02:45 Dose: 0.5 mg Documented by: Levofloxacin (Levofloxacin 500 Mg Tab) 500 mg PO DAILY [facility]; Protocol Last Admin: 11/12/20 09:34 Dose: 500 mg Documented by: Lisinopril (Lisinopril 20 Mg Tab) 20 mg PO DAILY [facility] Last Admin: 11/12/20 09:33 Dose: 20 mg Documented by: Nicotine (Nicotine 21 Mg/Pat) 21 mg TD DAILY [facility] Last Admin: 11/12/20 09:00 Dose: 21 mg Documented by: Ondansetron HCl (Ondansetron 4 Mg/2 Ml Vial) 4 mg IV Q6HP PRN PRN Reason: NAUSEA / VOMITING Prednisone (Prednisone 20 Mg Tab) 20 mg PO BID [facility] Last Admin: 11/12/20 09:33 Dose: 20 mg Documented by: Propranolol HCl (Propranolol Hcl 10 Mg Tab) 10 mg PO BID [facility] Last Admin: 11/12/20 09:33 Dose: 10 mg Documented by: Tamsulosin HCl (Tamsulosin 0.4 Mg Sr Cap) 0.4 mg PO DAILY [facility] Last Admin: 11/12/20 09:34 Dose: 0.4 mg Documented by: Thiamine HCl (Thiamine Hcl 100 Mg Tablet) 100 mg PO DAILY [facility] Last Admin: 11/12/20 09:33 Dose: 100 mg Documented by: Assessment And Plan - Plan Physical Exam: General: Alert, In no apparent distress HEENT: Atraumatic, Normocephalic Neck: Supple, 2+ carotid pulse no bruit Respiratory: Expiratory wheezes Cardiovascular: No edema, Regular rate/rhythm Gastrointestinal: Normal bowel sounds, Non-distended Musculoskeletal: No clubbing, No swelling Integumentary: No rashes, No breakdown, No significant lesion Antibioitcs: levaqin start: 10/31 stop: 11/14 Indication: bacteremia Ampicillin start: 10/30 Stop: 11/06 Indication: UTI Assessment -bacteremia -UTI -COPD exacerbation Plan: -blood cultures grew Staph hominis and Enterococcus faecalis sensitive to levaqin. Repeat blood cultures on 10/31 showed no growth, continue antibiotic therapy 2 weeks after negative blood culture. Can place patient on p.o. levaqin prior to discharge. -urine grew Enterococcus faecalis sensitive to ampicillin. Ptient has completed course of antibiotic-repeat urine culture pending. -continue IV Levaquin and ampicillin. After negative blood culture continue Levaquin for 2 weeks. For UTI continue ampicillin for 7-10 days. -patient still complains of SOB-pulm following -medical management per primary team -plan of care discussed with Dr. Vera Thank you for consultation
[2020-11-12 11:27] LABS: Absolute Lymphocytes (CBC) 1.2 K/uL (0.7-4.9); Basophils % 0.3 % (0-1.3); Hematocrit 38.9 % (39.6-49.0); Lymphocytes % 10.6 % (15.3-44.8); MPV 7.4 fL (7.6-11.3); RBC Red Blood Cell Count 3.78 M/uL (4.33-5.43)
--- NOTE | 2020-11-12 14:57 | P.PN ---
Subjective Date of Service: 11/12/20 Primary Care Provider: Dr. Leal Chief Complaint: Hypontaremia, COPD exacerbation Patient has no new complain. Villa catheter is out. Patient states he is voiding without difficulty. Patient maintained on 2 L oxygen by nasal cannula. He stated he ambulated with physical therapy in the hallway today. Physical Examination - Vital Signs Temperature: 97.1 F Blood Pressure: 112/74 Pulse: 76 Respirations: 19 Pulse Ox (%): 97 - Physical Exam General: Alert, In no apparent distress HEENT: Mucous membr. moist/pink Neck: Supple, JVD not distended Respiratory: Diminished (Bilateral) Cardiovascular: No edema, Regular rate/rhythm, Normal S1 S2 Gastrointestinal: Soft and benign, Non-distended Musculoskeletal: No erythema Neurological: Normal strength at 5/5 x4 extr, Cranial nerves 3-12 intact Other Physical/Emotional Findings: . Assessment And Plan Physician Review Additional Text: Physical Exam General: Alert, In no apparent distress HEENT: sclera anicteric, normal conjunctiva Pulm: mild expiratory wheeze bilaterally, nonlabored respirations on 2L NC CV: RRR, no edema Abd: soft, NTND Ext: no edema, no rash Villa in place, urine yellow Problem List: acute hypoxic rsspiratory failure secondary to acute on chronic COPD exacerbation Hyponatremia likely secondary to alcohol abuse Enterococcus bacteremia Staph hominis bacteremia Enterococcus UTI Alcohol abuse Hypertension Tobacco abuse BPH henaturia, resolved -clinically improved. continue nebs, inhalers. continue oral steroid. -wean O2 as tolerated -nephrology was consulted for hyponatremia. Hyponatremia resolved, avoid HCTZ. -no symptoms or signs of alcohol withdrawal. -continue Levaquin to cover staph hominis/enterococcus. Discharge with oral Levaquin per ID recommendation. 2 week course since negative culture -Villa placed in ED, continue flomax 10/28. Villa catheter removed and patient is voiding without difficulty. Urology follow up as outpatient. -Hematuria - villa/trauma vs recurrent / resistant UTI, Hgb stable, repeat UA is negative. Hematuria has resolved. continue SCDs for DVT prophylaxis -continue home trelegy inhaler -continue PT VTE: SCDs Code: full Dispo: Awaiting for placement in SNF rehab. can discharge once approved
--- NOTE | 2020-11-12 16:11 | PN ---
Date of Progress Note: 11/12/2020 Subjective: The patient was admitted with acute kidney injury, hyponatremia, beer potomania, treated, recovered. Deconditioning. Waiting for placement. Physical Examination: Vital Signs: Blood pressure 112/74, pulse of 76, afebrile. Chest: Clear to auscultation. Heart: S1, S2. Regular. Abdomen: Soft, nontender. Extremity: Trace edema. Neuro: Alert. No focality. Laboratory Data: H and H 12.8/38.9. Sodium 137, potassium 4.8, bicarb 36, BUN 15, creatinine 0.6, calcium 8.2, phosphorus 4.3. Current Medications: The patient on include albuterol, nicotine patch, lisinopril, Inderal, folic acid, Zofran, prednisone, thiamin. Assessment And Plan: 1. Acute kidney injury secondary to prerenal, recovered, resolved. 2. Hypernatremia secondary to beer potomania, resolved. 3. Alcohol intoxication as by primary. 4. Deconditioning. Continue PT/OT. ALEX/NORA Voice ID: [id number] Report ID: [id number] [facility]
[2020-11-13] MEDS: ALBUTEROL 2.5 MG/3 ML NEB SOL NEB SCH ×4 (02:20→19:35)
[2020-11-13 05:54] LABS: BUN Blood Urea Nitrogen 21 mg/dL (7-18); Bicarbonate 34 mmol/L (21-32); Glucose Level 139 mg/dL (74-106); Magnesium 2.5 mg/dL (1.8-2.4); Potassium 4.7 mmol/L (3.5-5.1); Sodium Level 137 mmol/L (136-145)
[2020-11-13] MEDS: ARFORMOTEROL TARTRATE 15 MCG/2 ML VIAL.NEB NEB SCH ×2 (07:28→19:35)
[2020-11-13] MEDS: lisinopriL 20 MG TAB PO SCH (08:54)
[2020-11-13] MEDS: THIAMINE HCL 100 MG TABLET PO SCH (08:54)
[2020-11-13] MEDS: NICOTINE 21 MG/PAT TD SCH (08:54)
[2020-11-13] MEDS: FOLIC ACID 1 MG TABLET PO SCH (08:54)
[2020-11-13] MEDS: PROPRANOLOL HCL 10 MG TAB PO SCH ×2 (08:55→20:34)
[2020-11-13] MEDS: ENOXAPARIN 40 MG/0.4 ML SQ SCH (08:55)
[2020-11-13] MEDS: TAMSULOSIN 0.4 MG SR CAP PO SCH (08:55)
[2020-11-13] MEDS: levoFLOXacin 500 MG TAB PO SCH (08:55)
[2020-11-13] MEDS: predniSONE 20 MG TAB PO SCH ×2 (08:56→20:34)
[2020-11-13] MEDS: HOME MED 1 EA UNK (Fluticasone/Umeclidin/Vilanter [Trelegy Ellipta 100-62.5-25] Blst.W.Dev IH SCH (09:00)
--- NOTE | 2020-11-13 12:50 | PN ---
Date of Progress Note: 11/13/2020 Subjective: The patient was admitted with acute kidney injury, hyponatremia. Physical Examination: Vital Signs: Blood pressure 118/71, pulse of 86, afebrile. Chest: Clear to auscultation. Heart: S1, S2. Regular. Abdomen: Soft, nontender. Extremity: No edema. Neuro: Alert. No focality. Laboratory Data: WBC 11.8, H and H 12.8/38.9. Sodium 137, potassium 4.7, bicarb 34, BUN 21, creatinine 0.7, calcium 8.4, phosphorus 4, magnesium 2.5. Current Medications: The patient on include; 1. Lovenox. 2. Flomax. 3. Lisinopril. 4. Inderal. 5. Folic acid. 6. Prednisone. 7. Thiamin. Assessment And Plan: 1. Acute kidney injury secondary to prerenal, recovered, resolved. 2. Rhabdomyolysis, resolved. 3. Hyponatremia secondary to beer potomania, resolved. 4. Hypertension, controlled, optimal. Continue current medications. 5. Alcohol intoxication as by primary. 6. Deconditioning. Continue PT/OT. 7. Hypomagnesemia, status post supplement. time spent examined the patient face to face s discussed with the patient placed order discussing the case with other environmental field team member including nurses , discussing with other specialist include a hospitalist 45 min RIGO Voice ID: [id number] Report ID: [id number]
--- NOTE | 2020-11-13 14:19 | P.PN ---
Subjective Date of Service: 11/13/20 Primary Care Provider: Dr. Leal Chief Complaint: Hypontaremia, COPD exacerbation Patient seen and examine st bedside with no acute complaints. Slight leukocyosis-WBC of 11.8 on 10/15. Repeat CBC ordered-continue levaquin. Repeat UA ordered. Review of Systems 10-point ROS is otherwise unremarkable Physical Examination - Vital Signs Temperature: 97.4 F Blood Pressure: 108/63 Pulse: 80 Respirations: 20 Pulse Ox (%): 96 - Physical Exam Other Physical/Emotional Findings: . - Studies Laboratory Last Values WBC 7.50 K/uL (4.3-10.9) 10/26/20 18:30 RBC 4.72 M/uL (4.33-5.43) 10/26/20 18:30 Hgb 16.4 g/dL (13.6-17.9) 10/26/20 18:30 Hct 48.2 % (39.6-49.0) 10/26/20 18:30 MCV 102.0 fL (80-100) H 10/26/20 18:30 MCH 34.7 pg (27.0-35.0) 10/26/20 18:30 MCHC 34.1 g/dL (32.0-36.0) 10/26/20 18:30 RDW 14.5 % (12.1-15.2) 10/26/20 18:30 Plt Count 156 K/uL (152-406) 10/26/20 18:30 MPV 7.7 fL (7.6-11.3) 10/26/20 18:30 Neutrophils % 84.9 % (41.7-73.7) H 10/26/20 18:30 Lymphocytes % 7.0 % (15.3-44.8) L 10/26/20 18:30 Monocytes % 7.7 % (3.3-12.3) 10/26/20 18:30 Eosinophils % 0.2 % (0-4.4) 10/26/20 18:30 Basophils % 0.2 % (0-1.3) 10/26/20 18:30 Absolute Neutrophils 6.4 K/uL (1.8-8.0) 10/26/20 18:30 Absolute Lymphocytes 0.5 K/uL (0.7-4.9) L 10/26/20 18:30 Absolute Monocytes 0.6 K/uL (0.1-1.3) 10/26/20 18:30 Absolute Eosinophils 0.0 K/uL (0-0.5) 10/26/20 18:30 Absolute Basophils 0.0 K/uL (0-0.5) 10/26/20 18:30 PT 11.2 SECONDS (9.5-12.5) 10/26/20 18:30 INR 0.97 10/26/20 18:30 Sodium 114 mmol/L (136-145) L* 10/26/20 18:30 Potassium 5.2 mmol/L (3.5-5.1) H 10/26/20 18:30 Chloride 77 mmol/L (98-107) L* 10/26/20 18:30 Carbon Dioxide 32 mmol/L (21-32) 10/26/20 18:30 BUN 5 mg/dL (7-18) L 10/26/20 18:30 Creatinine 0.64 mg/dL (0.55-1.3) 10/26/20 18:30 Estimated GFR > 90 mL/min (=/>90) 10/26/20 18:30 Glucose 109 mg/dL (74-106) H 10/26/20 18:30 Serum Osmolality 248 mOsm/kg (280-301) L 10/26/20 20:22 Uric Acid 3.0 mg/dL (3.5-7.2) L 10/26/20 18:30 Calcium 8.2 mg/dL (8.5-10.1) L 10/26/20 18:30 Magnesium 1.9 mg/dL (1.8-2.4) 10/26/20 18:30 Total Bilirubin 1.1 mg/dL (0.2-1.0) H 10/26/20 18:30 Direct Bilirubin 0.4 mg/dL (0-0.2) H 10/26/20 18:30 AST 60 U/L (15-37) H 10/26/20 18:30 ALT 47 U/L (12-78) 10/26/20 18:30 Alkaline Phosphatase 92 U/L (45-117) 10/26/20 18:30 Rapid Troponin I < 0.02 ng/mL (0.0-0.045) 10/26/20 18:30 NT-Pro-B Natriuret Pep 2043 pg/mL (<125) H 10/26/20 18:30 Serum Total Protein 6.0 g/dL (6.4-8.2) L 10/26/20 18:30 Albumin 3.2 g/dL (3.4-5.0) L 10/26/20 18:30 Globulin 2.8 g/dL (2.3-3.5) 10/26/20 18:30 Albumin/Globulin Ratio 1.1 (1.1-1.8) 10/26/20 18:30 TSH 0.983 uIU/mL (0.360-3.740) 10/26/20 18:30 Cortisol 51.52 ug/dL (SEE COMMENT) 10/26/20 20:22 Plasma/Serum Alcohol < 10 mg/dL (<10) 10/26/20 18:30 SARS-CoV-2 RNA (RT-PCR) Negative (NEGATIVE) 10/26/20 18:36 Assessment And Plan - Plan Physical Exam: General: Alert, In no apparent distress HEENT: Atraumatic, Normocephalic Neck: Supple, 2+ carotid pulse no bruit Respiratory: Expiratory wheezes Cardiovascular: No edema, Regular rate/rhythm Gastrointestinal: Normal bowel sounds, Non-distended Musculoskeletal: No clubbing, No swelling Integumentary: No rashes, No breakdown, No significant lesion Antibioitcs: levaqin start: 10/31 stop: 11/14 Indication: bacteremia Ampicillin start: 10/30 Stop: 11/06 Indication: UTI Assessment -bacteremia -UTI -COPD exacerbation -macrocytic anemia Plan: -blood cultures grew Staph hominis and Enterococcus faecalis sensitive to levaqin. Repeat blood cultures on 10/31 showed no growth, continue antibiotic therapy 2 weeks after negative blood culture. Can place patient on p.o. levaqin prior to discharge. -urine grew Enterococcus faecalis sensitive to ampicillin. Patient has completed course of antibiotic-repeat urine culture pending. -continue IV Levaquin and ampicillin. After negative blood culture continue Levaquin for 2 weeks. -macrocytic anemia-likely due to alcohol use. Consider supplementation with B12 and folate. -patient still complains of SOB-pulm following -medical management per primary team -plan of care discussed with Dr. Vera Thank you for consultation
[2020-11-13 15:06] LABS: Absolute Lymphocytes (CBC) 0.7 K/uL (0.7-4.9); Basophils % 0.7 % (0-1.3); Hematocrit 40.5 % (39.6-49.0); Lymphocytes % 5.9 % (15.3-44.8); MPV 7.5 fL (7.6-11.3); RBC Red Blood Cell Count 3.91 M/uL (4.33-5.43)
[2020-11-13 15:31] LABS: BUN Blood Urea Nitrogen 18 mg/dL (7-18); Bicarbonate 36 mmol/L (21-32); Glucose Level 90 mg/dL (74-106); Potassium 5.5 mmol/L (3.5-5.1); Sodium Level 136 mmol/L (136-145)
--- NOTE | 2020-11-13 16:35 | P.DS ---
Admission Date: 10/26/20 Discharge Date: 11/13/20 Primary Care Provider: Dr. Leal Disposition: TRANSFER TO ASSISTED Discharge Condition: FAIR Reason for Admission: Hypontaremia, COPD exacerbation Consultations: Pulmonary-Dr. Holt. - Problems (1) Acute respiratory failure with hypoxia Current Visit: Yes Status: Acute (2) Gram-positive bacteremia Current Visit: Yes Status: Acute (3) BPH (benign prostatic hyperplasia) Current Visit: Yes Status: Acute (4) Acute urinary retention Current Visit: Yes Status: Acute (5) Alcohol abuse Current Visit: Yes Status: Acute (6) COPD exacerbation Current Visit: Yes Status: Acute (7) Hyponatremia Current Visit: Yes Status: Acute (8) Enterococcus UTI Current Visit: Yes Status: Acute Brief History of Present Illness: 65-year-old gentleman with a history of COPD, chronic alcohol abuse presented to the emergency department with a complaint of progressive shortness of breath and wheezing over 3 days duration. Patient reports noncompliance with his medications for a 3 months but stated he uses nebulizers without any improvement. Patient noted to be wheezing and dyspneic in the ED. Chest x-ray demonstrated low lung volumes. Blood work showed hyponatremia with a sodium of 114, BNP elevated. Alcohol level was less than 10. Patient diagnosis COPD exacerbation and hyponatremia and admitted for further management. Hospital Course: Patient admitted to the medical floor and started on banana bag for chronic alcoholism. He was also placed on CIWA for possible alcohol withdrawal. He was also treated for COPD exacerbation with IV steroids, antibiotics and scheduled nebs. Patient was seen by pulmonary-Dr. Holt who assisted with management. Who was eventually put on Brovana and his Trelegy continued during the hospital stay. Patient also seen by nephrology for hyponatremia. He was given normal saline briefly and then also put on sodium tablets. Patient sodium level improved significantly with these measures after which the normal saline and sodium tablets were discontinued. He also developed acute urinary retention. Patient reports prior history of terminal dribbing, hesitancy and poor stream suggesting BPH symptoms. He was placed on tamsulosin and Garza catheter inserted because he was unable to void. Garza catheter was removed 2 weeks after insertion. Patient is now able to void freely. He was debilitated from his illness and initially needed significant assistance with transfer. Patient seen by PT, he underwent PT session and now able to ambulate with support. His blood culture grew Staph hominis, urine culture enterococcus. Patient completed antibiotic treatment for both organisms. He was treated with ampicillin for the enterococcus and Levaquin for the Staph hominis. He completed more than 2 weeks of Levaquin. Patient has improved clinically. He did not experience any symptoms of alcohol withdrawal. He is deemed clinically stable for discharge. Patient has been accepted to skilled rehab. Vital Signs/Physical Exam: Temp Pulse Resp BP Pulse Ox 97.4 F 80 20 108/63 96 11/13/20 14:19 11/13/20 14:19 11/13/20 14:19 11/13/20 14:19 11/13/20 14:19 General: Alert, In no apparent distress, Oriented x3 HEENT: Mucous membr. moist/pink Neck: Supple Respiratory: Clear to auscultation bilaterally, Normal air movement Cardiovascular: No edema, Regular rate/rhythm, Normal S1 S2 Gastrointestinal: Normal bowel sounds, Soft and benign, Non-distended Musculoskeletal: No swelling, No tenderness Integumentary: No rashes Neurological: Normal strength at 5/5 x4 extr, Cranial nerves 3-12 intact Other Physical/Emotional Findings: . Laboratory Data at Discharge: WBC 11.70 K/uL (4.3-10.9) H 11/13/20 14:37 Hgb 13.3 g/dL (13.6-17.9) L 11/13/20 14:37 Hct 40.5 % (39.6-49.0) 11/13/20 14:37 Plt Count 201 K/uL (152-406) 11/13/20 14:37 PT 11.2 SECONDS (9.5-12.5) 10/26/20 18:30 INR 0.97 10/26/20 18:30 Sodium 136 mmol/L (136-145) 11/13/20 14:37 Potassium 5.5 mmol/L (3.5-5.1) H 11/13/20 14:37 BUN 18 mg/dL (7-18) 11/13/20 14:37 Creatinine 0.62 mg/dL (0.55-1.3) 11/13/20 14:37 Glucose 90 mg/dL (74-106) 11/13/20 14:37 Uric Acid 3.0 mg/dL (3.5-7.2) L 10/26/20 18:30 Phosphorus 4.0 mg/dL (2.5-4.9) 11/13/20 05:24 Magnesium 2.5 mg/dL (1.8-2.4) H 11/13/20 05:24 Total Bilirubin 0.2 mg/dL (0.2-1.0) 11/08/20 06:39 AST 14 U/L (15-37) L 11/08/20 06:39 ALT 60 U/L (12-78) 11/08/20 06:39 Alkaline Phosphatase ND 11/08/20 06:39 Triglycerides 59 mg/dL (<150) 10/27/20 08:18 Cholesterol 121 mg/dL (<200) 10/27/20 08:18 HDL Cholesterol 91 mg/dL (40-60) H 10/27/20 08:18 Cholesterol/HDL Ratio 1.33 10/27/20 08:18 Home Medications: Amlodipine [Norvasc*] 10 mg PO DAILY 10/28/20 Fluticasone/Umeclidin/Vilanter [Trelegy Ellipta 100-62.5-25] 1 each IH DAILY 10/28/20 Ampicillin Trihydrate [Omnipen Cap] 1,000 mg PO Q6H #56 cap 11/04/20 Arformoterol Tartrate [Brovana] 15 mcg NEB BIDRESP vial.neb 11/04/20 Ipratropium Neb [Atrovent*] 0.5 mg NEB Q6HP PRN amp 11/04/20 Nicotine [Nicoderm*] 21 mg TD DAILY patch.td24 11/04/20 Propranolol [Inderal*] 10 mg PO BID tab 11/04/20 Tamsulosin [Flomax*] 0.4 mg PO DAILY cap 11/04/20 Thiamine HCl [Vitamin B-1*] 100 mg PO DAILY tablet 11/04/20 lisinopriL [Prinivil*] 20 mg PO DAILY tab 11/04/20 Arformoterol Tartrate [Brovana] 15 mcg NEB BIDRESP vial.neb 11/13/20 New Medications: Ampicillin Trihydrate [Omnipen Cap] 1,000 mg PO Q6H #56 cap Diet: AHA Activity: Fall precautions Followup: NONE,NONE [Primary Care Provider] - Hayden Lea [ACTIVE - CAN ADMIT] - (Within 2 weeks.) Time spent managing pt's care (in minutes): 40
[2020-11-13] MEDS ORDERED: SOD POLYSTYREN SUL 15 GM/60 ML UCUP PO ONE (17:00)
[2020-11-13 20:35] VITALS: BP 117/72
[2020-11-13 21:11] VITALS: TEMP 97.8
[2020-11-14 02:15] VITALS: O2SAT 95
== END 2020-11-13 21:33 | DRG 190 ==
LOC: ER 16:06 → ERHOLD 21:13 → 2ND 10-27 23:32
PROVIDERS: ADMIT Hospitalist; ATTEND Internal Medicine
DX: J44.1 Chronic obstructive pulmonary disease with (acute) exacerbation (principal); J96.01 Acute respiratory failure with hypoxia; E87.1 Hypo-osmolality and hyponatremia; N39.0 Urinary tract infection, site not specified; R78.81 Bacteremia; N17.9 Acute kidney failure, unspecified; M62.82 Rhabdomyolysis; E87.0 Hyperosmolality and hypernatremia; F10.139 Alcohol abuse with withdrawal, unspecified; I10 Essential (primary) hypertension; E87.6 Hypokalemia; N40.0 Benign prostatic hyperplasia without lower urinary tract symptoms; D53.9 Nutritional anemia, unspecified; E83.42 Hypomagnesemia; F10.129 Alcohol abuse with intoxication, unspecified; F17.200 Nicotine dependence, unspecified, uncomplicated; B95.7 Other staphylococcus as the cause of diseases classified elsewhere; B95.2 Enterococcus as the cause of diseases classified elsewhere; R33.9 Retention of urine, unspecified; R31.9 Hematuria, unspecified; R56.9 Unspecified convulsions; Z71.6 Tobacco abuse counseling; Z91.14 Patient's other noncompliance with medication regimen; Z79.52 Long term (current) use of systemic steroids; Z79.899 Other long term (current) drug therapy; Z20.822 Contact with and (suspected) exposure to COVID-19
CPT/HCPCS: 36415; 71045; 76705; 80048; 80053; 80061; 80069; 80076; 80202; 80320; 81003; 81015; 82533; 82947; 83735; 83880; 83930; 83935; 84100; 84132; 84300; 84443; 84484; 84550; 85025; 85610; 87040; 87077; 87086; 87088; 87186; 87205; 93005; 94640; 97110; 97112; 97116; 97161; 97530; 99285; J0290; J1650; J2543; J2920; J2930; J3370; J3411; J3475; J7030; J7040; J7050; J7512; J7605; U0003

== ENCOUNTER 2021-07-12 15:42 | Inpatient (IN) | payer BC ==
[2021-07-12] MEDS ORDERED: LEVALBUTEROL 1.25 MG/3 ML NEB ONE ×3 (15:45→18:06)
[2021-07-12] MEDS ORDERED: ALBUTEROL 2.5 MG/3 ML NEB SOL ONE ×2 (15:47→21:49)
[2021-07-12] MEDS ORDERED: IPRATROPIUM BROM 0.5MG/2.5ML ONE ×2 (15:48→21:49)
[2021-07-12] MEDS ORDERED: METHYLPREDNISOLONE 125 MG INJ ONE (16:04)
[2021-07-12 16:19] LABS: Protime INR 1.04
[2021-07-12 16:26] LABS: Basophils % 0.4 % (0-1.3); Hematocrit 43.8 % (39.6-49.0); MPV 7.2 fL (7.6-11.3); RBC Red Blood Cell Count 4.42 M/uL (4.33-5.43)
[2021-07-12 16:32] LABS: ALT/SGPT 36 U/L (12-78); AST/SGOT 49 U/L (15-37); Albumin 3.8 g/dL (3.4-5.0); Alkaline Phosphatase 79 U/L (45-117); BUN Blood Urea Nitrogen 5 mg/dL (7-18); Bicarbonate 32 mmol/L (21-32); Bilirubin Direct 0.3 mg/dL (0-0.2); Bilirubin Total 0.7 mg/dL (0.2-1.0); Glucose Level 94 mg/dL (74-106); Protein, Total 6.8 g/dL (6.4-8.2)
[2021-07-12 16:35] LABS: NT PRO-BNP 507 pg/mL (<125); Sodium Level 115 mmol/L (136-145); Troponin (Emerg Dept Use Only) < 0.02 ng/mL (0.0-0.045)
[2021-07-12 16:46] LABS: SARS-COV-2 RT PCR NEGATIVE (NEGATIVE)
--- NOTE | 2021-07-12 17:11 | RAD REPORT ---
EXAM DESCRIPTION: RAD - Chest Single View - 07/12/2021 4:55 pm CLINICAL HISTORY: SOB Chest pain. COMPARISON: Chest Single View dated 10/30/2020; Chest Single View dated 10/26/2020; Chest Single View d ated 11/27/2019; Chest Single View dated 11/06/2019 FINDINGS: Portable technique limits examination quality. Mild bilateral pulmonary opacities are present most compatible with pulmonary edema and viral infecti on. The heart is size upper limit of normal in size. No displaced fractures.
--- NOTE | 2021-07-12 17:59 | ER ---
Nurse's Notes [facility] Name: Randolph Mckeon Age: 66 yrs Sex: Male : 1955 Arrival Date: 07/12/2021 Time: 15:45 Bed 20 [facility] MD: Diagnosis: Hypo-osmolality and hyponatremia;COPD/ Chronic obstructive pulmonary disease with (acute) exacerbation;Hypoxemia Presentation: 07/12 15:45 Chief complaint: Patient states: SOB that began today. HX of COPD. Coronavirus screen: ss Client denies travel out of the [place] in the last 14 days. Client presents with at least one sign or symptom that may indicate coronavirus-19. Standard/surgical mask placed on the client. Provider contacted for isolation considerations. Ebola Screen: Patient denies exposure to infectious person. Patient denies travel to an Ebola-affected area in the 21 days before illness onset. Initial Sepsis Screen: Does the patient meet any 2 criteria? RR > 20 per min. No. Patient's initial sepsis screen is negative. Does the patient have a suspected source of infection? No. Patient's initial sepsis screen is negative. Risk Assessment: Do you want to hurt yourself or someone else? Patient reports no desire to harm self or others. Onset of symptoms was July 12, 2021. 15:45 Method Of Arrival: Wheelchair 15:45 Acuity: YANNICK 3 ss Historical: - Allergies: 15:54 No Known Allergies; ss - Home Meds: 15:54 Albuterol Inhl [Active]; Trilogy INH [Active]; ss - PMHx: 15:54 COPD; Hypertension; ss - Immunization history:: Client reports having NOT received the Covid vaccine. - Social history:: Smoking status: Patient reports the use of cigarette tobacco products, smokes one pack cigarettes per day. Screenin:58 Abuse screen: Denies threats or abuse. Denies injuries from another. Nutritional sl2 screening: No deficits noted. Tuberculosis screening: No symptoms or risk factors identified. Never had TB. Possible symptoms: None Risk factors: None. Fall Risk None identified. No fall in past 12 months (0 pts). No secondary diagnosis (0 pts). No IV (0 pts). Ambulatory Aid- None/Bed Rest/Nurse Assist (0 pts). Gait- Normal/Bed Rest/Wheelchair (0 pts) Mental Status- Oriented to own ability (0 pts). Total Pedro Fall Scale indicates No Risk (0-24 pts). Assessment: 15:58 General: Appears uncomfortable, well developed, Behavior is cooperative, anxious, sl2 Reports shortness of breath. Pain: Denies pain. Neuro: No deficits noted. Cardiovascular: No deficits noted. Cardiovascular: Capillary refill < 3 seconds Rhythm is regular. Respiratory: Reports shortness of breath at rest on exertion cough that is non-productive, persistent states h/o of COPD Airway is patent Trachea midline Respiratory effort is even, unlabored, Respiratory pattern is regular, symmetrical, Breath sounds are diminished bilaterally. Breath sounds with wheezes bilaterally. GI: No deficits noted. No signs and/or symptoms were reported involving the gastrointestinal system. : No deficits noted. No signs and/or symptoms were reported regarding the genitourinary system. EENT: No deficits noted. No signs and/or symptoms were reported regarding the EENT system. Derm: No deficits noted. No signs and/or symptoms reported regarding the dermatologic system. Musculoskeletal: No deficits noted. No signs and/or symptoms reported regarding the musculoskeletal system. 18:40 Reassessment: Patient placed on BiPAP I = 12, E = 5, Rate = 12, FIO2 = 35. sl2 Vital Signs: 15:45 BP 190 / 95; Pulse 76; Resp 23; Temp 98.0(O); Pulse Ox 87% on R/A; Height 5 ft. 11 in. ss (180.34 cm); Pain 0/10; 16:20 BP 172 / 82; Pulse 79; Resp 18; Temp 98.2; Pulse Ox 97% on 4 lpm NC; sl2 17:15 BP 166 / 74; Pulse 95; Resp 24; Temp 98.4; Pulse Ox 95% on 4 lpm NC; sl2 17:45 BP 159 / 72; Pulse 77; Resp 22; Pulse Ox 96% on 4 lpm NC; sl2 17:45 BP 159 / 72; Pulse 80; Resp 18; Pulse Ox 96% on 4 lpm NC; sl2 18:15 BP 166 / 78; Pulse 81; Resp 18; Pulse Ox 96% on 4 lpm NC; sl2 19:15 BP 153 / 99; Pulse 78; Resp 18; Pulse Ox 97% on BiPAP; sl2 21:02 BP 148 / 83; Pulse 94; Resp 27; Temp 97.8; Pulse Ox 95% on 35% BiPAP; cc4 21:02 BP 148 / 83; Pulse 94; Resp 27; Temp 97.8(A); Pulse Ox 95% on 35% BiPAP; cc4 ED Course: 15:45 Patient arrived in ED. ds1 15:46 Eligio Thomas PA is PHCP. cp 15:46 Severo Nielsen MD is Attending Physician. cp 15:50 COVID swab sent to lab. Flu and/or RSV swab sent to lab. mh5 15:50 Patient has correct armband on for positive identification. Bed in low position. Call [facility] light in reach. Side rails up X 1. Warm blanket given. residential monitor on. Pulse ox on. NIBP on. 15:54 Triage completed. ss 15:54 Arm band placed on right wrist. ss 15:58 Velvet Sarmiento, RN is Primary Nurse. sl2 15:58 No provider procedures requiring assistance completed. 2 16:06 COVID-19/FLU A+B Sent. 5 16:06 Magnesium Sent. 5 16:06 NT PRO-BNP Sent. 5 16:06 CBC with Automated Diff Sent. 5 16:06 Liver (Hepatic) Function Sent. 5 16:06 Basic Metabolic Panel Sent. 5 16:06 Basic Metabolic Panel Sent. 5 16:06 CBC with Diff Sent. 5 16:06 LFT's Sent. 5 16:06 Magnesium Sent. 5 16:06 NT PRO-BNP Sent. 5 16:06 XRAY Chest (1 view) Sent. 5 16:07 PT-INR Sent. 5 16:07 Troponin (emerg Dept Use Only) Sent. 5 16:07 Initial lab(s) drawn, by al, sent to lab. Inserted saline lock: 18 gauge in right 5 forearm, using aseptic technique. Blood collected. 16:54 XRAY Chest (1 view) In Process Unspecified. EDMS 17:57 Timoteo Fischer is Hospitalizing Provider. cp 18:40 Garza cath inserted, using sterile technique, 16 Fr., by me, balloon inflated, to 5 gravity drainage. 19:14 BIPAP Sent. sl2 21:30 Patient admitted, IV remains in place. bb Administered Medications: 15:56 Drug: Albuterol - atroVENT (ipratropium) (3:1) (2.5 mg - 0.5 mg) 3 ml Route: Nebulizer; sl2 18:24 Follow up: Response: No adverse reaction sl2 16:05 Drug: SOLU-Medrol (methylPrednisoLONE) 125 mg Route: IVP; Site: right antecubital; sl2 18:23 Follow up: Response: No adverse reaction sl2 18:24 Follow up: Response: No adverse reaction sl2 17:55 CANCELLED (Physician Discretion): NS 0.9% 1000 ml IV at 75 ml/hr continuous cp 18:08 Drug: Xopenex (levalbuterol) (3) 1.25 mg Route: Inhalation; sl2 19:31 Follow up: Response: No adverse reaction sl2 18:08 Drug: Lasix (furosemide) 40 mg Route: IVP; Site: right antecubital; sl2 18:23 Follow up: Response: No adverse reaction sl2 19:31 Follow up: Response: No adverse reaction sl2 18:22 Drug: Magnesium Sulfate 1 grams Route: IVPB; Infused Over: 1 hrs; Site: right sl2 antecubital; 19:32 Follow up: Response: No adverse reaction; IV Status: Completed infusion; IV Intake: sl2 100ml 19:16 CANCELLED (Other Intervention Used): Banana Bag - (NS 0.9% 1000 ml, foLIC Acid 1 mg, la1 Thiamine 100 mg, Multivitamin 1 amp) IV at calculated rate once 20:46 Drug: Banana Bag - (NS 0.9% 1000 ml, foLIC Acid 1 mg, Thiamine 100 mg, Multivitamin 1 bb amp) Route: IV; Rate: 40 ml/hr; Site: right forearm; 21:29 Follow up: IV Status: Infusion continued upon admission bb 21:09 Drug: Thiamine 100 mg Route: IV; Rate: calculated rate; Site: right forearm; bb 21:29 Follow up: IV Status: Infusion continued upon admission bb 21:09 Drug: foLIC Acid 1 mg Route: IVPB; Site: right forearm; bb 21:29 Follow up: IV Status: Infusion continued upon admission bb Intake: 19:32 IV: 100ml; Total: 100ml. sl2 Output: 21:30 Urine: 1750ml (Garza); Total: 1750ml. bb Outcome: 17:59 Decision to Hospitalize by Provider. cp 21:29 Admitted to ICU accompanied by nurse, via stretcher, room 26, with oxygen, with chart, adán Report called to receiving RN 21:29 Condition: stable 21:29 Instructed on the need for admit. 21:30 Patient left the ED. adán Signatures: Dispatcher [employer] EDNY OmalleyNohemi rush ds1 Mely Langston RN RN bb Anna Delgado, RN RN ss Eligio Thomas PA PA Arin Kramer [facility] Terri Braga, RN RN cc4 Velvet Sarmiento, RN RN sl2 Rob Cooper [facility]
--- NOTE | 2021-07-12 18:00 | EDPHYS ---
Physician Documentation [facility] Name: Randolph Mckeon Age: 66 yrs Sex: Male : 1955 Arrival Date: 07/12/2021 Time: 15:45 Bed 20 Private MD: ED Physician Severo Nielsen HPI: 07/11 15:55 This 66 yrs old Male presents to ER via Wheelchair with complaints of COPD Exacerbation.cp 07/12 15:55 The patient or guardian reports cough, that is intermittent, difficulty breathing. cp 15:55 Onset: The symptoms/episode began/occurred today. Associated signs and symptoms: cp Pertinent positives: general weakness, Pertinent negatives: chest pain, diarrhea, fever, sore throat, vomiting. Severity of symptoms: in the emergency department the symptoms are unchanged despite home interventions. Historical: - Allergies: 15:54 No Known Allergies; ss - Home Meds: 15:54 Albuterol Inhl [Active]; Trilogy INH [Active]; ss - PMHx: 15:54 COPD; Hypertension; ss - Immunization history:: Client reports having NOT received the Covid vaccine. - Social history:: Smoking status: Patient reports the use of cigarette tobacco products, smokes one pack cigarettes per day. ROS: 15:58 Constitutional: Negative for body aches, chills, fever, poor PO intake. cp 15:58 Eyes: Negative for injury, pain, redness, and discharge. cp 15:58 ENT: Negative for ear pain, sore throat, difficulty swallowing, difficulty handling secretions. 15:58 Cardiovascular: Negative for chest pain, palpitations. 15:58 Respiratory: Positive for shortness of breath, at rest. wheezing. 15:58 Abdomen/GI: Negative for abdominal pain, nausea, vomiting, and diarrhea. 15:58 Neuro: Positive for weakness, Negative for altered mental status, headache, numbness. 15:58 All other systems are negative. Exam: 16:05 Constitutional: The patient appears alert, awake, non-diaphoretic, non-toxic, well cp developed, well nourished, in obvious distress, mildly distressed. 16:05 Head/Face: Normocephalic, atraumatic. cp 16:05 Eyes: Periorbital structures: appear normal, Pupils: equal, round, and reactive to light and accomodation, Extraocular movements: intact throughout, Conjunctiva: normal, no exudate, no injection, Sclera: no appreciated abnormality, Lids and lashes: appear normal, bilaterally. 16:05 ENT: External ear(s): are unremarkable, Nose: is normal, Mouth: Lips: moist, Oral mucosa: pink and intact, moist, Posterior pharynx: Airway: no evidence of obstruction, patent. 16:05 Neck: ROM/movement: is normal, is supple, without pain, no range of motions limitations, no meningismus, no nuchal rigidity. 16:05 Chest/axilla: Inspection: normal, Palpation: is normal, no crepitus, no tenderness. 16:05 Cardiovascular: Rate: normal, Rhythm: regular, Edema: ankle edema, that is mild, JVD: is not appreciated. 16:05 Respiratory: mild respiratory distress is noted, Respirations: labored breathing, that is mild, shallow respirations, that is mild, Breath sounds: stridor, is not appreciated, wheezing: that is moderate, is heard diffusely. 16:05 Abdomen/GI: Inspection: abdomen appears normal, Bowel sounds: active, all quadrants, Palpation: 16:05 Back: pain, is absent, ROM is normal. 16:05 Skin: cellulitis, is not appreciated, no rash present. 16:05 Neuro: Orientation: to person, place \T\ time. Mentation: is normal, Motor: moves all fours, general weakness with no focal deficits, Sensation: is normal, Gait: is unsteady. 21:18 ECG was reviewed by the Attending Physician. cp Vital Signs: 15:45 BP 190 / 95; Pulse 76; Resp 23; Temp 98.0(O); Pulse Ox 87% on R/A; Height 5 ft. 11 in. ss (180.34 cm); Pain 0/10; 16:20 BP 172 / 82; Pulse 79; Resp 18; Temp 98.2; Pulse Ox 97% on 4 lpm NC; sl2 17:15 BP 166 / 74; Pulse 95; Resp 24; Temp 98.4; Pulse Ox 95% on 4 lpm NC; sl2 17:45 BP 159 / 72; Pulse 77; Resp 22; Pulse Ox 96% on 4 lpm NC; sl2 17:45 BP 159 / 72; Pulse 80; Resp 18; Pulse Ox 96% on 4 lpm NC; sl2 18:15 BP 166 / 78; Pulse 81; Resp 18; Pulse Ox 96% on 4 lpm NC; sl2 19:15 BP 153 / 99; Pulse 78; Resp 18; Pulse Ox 97% on BiPAP; sl2 21:02 BP 148 / 83; Pulse 94; Resp 27; Temp 97.8; Pulse Ox 95% on 35% BiPAP; cc4 21:02 BP 148 / 83; Pulse 94; Resp 27; Temp 97.8(A); Pulse Ox 95% on 35% BiPAP; cc4 MDM: 15:49 Patient medically screened. cp 17:50 Physician consultation: nephrology consult wants patient to be given Lasix 40 mg now cp and repeat at 0000. Fluid restriction of 1200 and admit to ICU. 18:00 Data reviewed: vital signs, nurses notes, lab test result(s), EKG, radiologic studies, cp plain films. 18:00 Test interpretation: by ED physician or midlevel provider: ECG, plain radiologic cp studies. Counseling: I had a detailed discussion with the patient and/or guardian regarding: the historical points, exam findings, and any diagnostic results supporting the discharge/admit diagnosis, lab results, radiology results, the need for further work-up and treatment in the hospital. Physician consultation: Rob Cooper was called at 18:00, was contacted at 18:00, regarding admission, to the ICU, patient's condition. 07/12 15:49 Order name: Basic Metabolic Panel cp 07/12 15:49 Order name: CBC with Diff cp 07/12 15:49 Order name: LFT's cp 07/12 15:49 Order name: Magnesium cp 07/12 15:49 Order name: NT PRO-BNP cp 07/12 15:49 Order name: PT-INR; Complete Time: 16:40 cp 07/12 15:49 Order name: Troponin (emerg Dept Use Only); Complete Time: 16:40 cp 07/12 15:50 Order name: Basic Metabolic Panel; Complete Time: 16:40 EDMS 07/12 15:50 Order name: CBC with Automated Diff; Complete Time: 16:40 EDMS 07/12 15:50 Order name: Liver (Hepatic) Function; Complete Time: 16:40 EDMS 07/12 15:50 Order name: Magnesium; Complete Time: 16:40 EDMS 11/20 15:50 Order name: NT PRO-BNP; Complete Time: 16:40 EDMS 07/12 15:49 Order name: XRAY Chest (1 view); Complete Time: 17:52 cp 07/12 16:04 Order name: COVID-19/FLU A+B; Complete Time: 16:48 EDMS 07/12 16:48 Interpretation: Reviewed. 07/12 17:59 Order name: ABG; Complete Time: 19:13 07/12 17:59 Order name: Urine Osmolality; Complete Time: 20:48 la1 07/12 17:59 Order name: Osmolality, Serum; Complete Time: 20:48 la1 07/12 17:59 Order name: TSH; Complete Time: 20:48 la1 07/12 17:59 Order name: Cortisol; Complete Time: 20:48 la1 07/12 17:59 Order name: Urine Sodium Random; Complete Time: 19:13 la1 07/12 17:59 Order name: Urine Potassium Random; Complete Time: 19:[facility] 07/12 18:00 Order name: Uric Acid; Complete Time: 20:48 la 07/12 18:24 Order name: BIPAP 07/12 15:49 Order name: EKG; Complete Time: 15:50 07/12 15:49 Order name: Cardiac monitoring; Complete Time: 15:51 07/12 15:49 Order name: EKG - Nurse/Tech; Complete Time: 15:51 07/12 15:49 Order name: IV Saline Lock; Complete Time: 16:06 07/12 15:49 Order name: Labs collected and sent; Complete Time: 16:07 07/12 15:49 Order name: O2 Per Protocol; Complete Time: 15:51 cp 07/12 15:49 Order name: O2 Sat Monitoring; Complete Time: 15:51 07/12 17:56 Order name: Garza: to measure urine output; Complete Time: 18:24 07/12 18:20 Order name: CONS Physician Consult EDMS EC:18 Rate is 97 beats/min. Rhythm is regular. OK interval is normal. QRS interval is normal. cp QT interval is normal. T waves are Inverted in lead aVR. Interpreted by me. Reviewed by me. Administered Medications: 15:56 Drug: Albuterol - atroVENT (ipratropium) (3:1) (2.5 mg - 0.5 mg) 3 ml Route: Nebulizer; sl2 18:24 Follow up: Response: No adverse reaction sl2 16:05 Drug: SOLU-Medrol (methylPrednisoLONE) 125 mg Route: IVP; Site: right antecubital; sl2 18:23 Follow up: Response: No adverse reaction sl2 18:24 Follow up: Response: No adverse reaction sl2 17:55 CANCELLED (Physician Discretion): NS 0.9% 1000 ml IV at 75 ml/hr continuous cp 18:08 Drug: Xopenex (levalbuterol) (3) 1.25 mg Route: Inhalation; sl2 19:31 Follow up: Response: No adverse reaction sl2 18:08 Drug: Lasix (furosemide) 40 mg Route: IVP; Site: right antecubital; sl2 18:23 Follow up: Response: No adverse reaction sl2 19:31 Follow up: Response: No adverse reaction sl2 18:22 Drug: Magnesium Sulfate 1 grams Route: IVPB; Infused Over: 1 hrs; Site: right sl2 antecubital; 19:32 Follow up: Response: No adverse reaction; IV Status: Completed infusion; IV Intake: sl2 100ml 19:16 CANCELLED (Other Intervention Used): Banana Bag - (NS 0.9% 1000 ml, foLIC Acid 1 mg, la1 Thiamine 100 mg, Multivitamin 1 amp) IV at calculated rate once 20:46 Drug: Banana Bag - (NS 0.9% 1000 ml, foLIC Acid 1 mg, Thiamine 100 mg, Multivitamin 1 bb amp) Route: IV; Rate: 40 ml/hr; Site: right forearm; 21:29 Follow up: IV Status: Infusion continued upon admission bb 21:09 Drug: Thiamine 100 mg Route: IV; Rate: calculated rate; Site: right forearm; bb 21:29 Follow up: IV Status: Infusion continued upon admission bb 21:09 Drug: foLIC Acid 1 mg Route: IVPB; Site: right forearm; bb 21:29 Follow up: IV Status: Infusion continued upon admission bb Disposition: 07/13 07:56 Co-signature as Attending Physician, Severo Nielsen MD I agree with the assessment and rn plan of care. Attestation: The patient's history, exam findings, diagnostics, and a summary of any interventions or procedures was reviewed in detail with Eligio GANN. Disposition Summary: 07/12/21 17:59 Hospitalization Ordered Hospitalization Status: Inpatient Admission cp Provider: Timoteo Fischer cp Condition: Stable cp Problem: new cp Symptoms: have improved cp Bed/Room Type: Standard cp Location: [facility] ER HOLD(07/12/21 19:40) mw Room Assignment: ERHOLD-(07/12/21 19:40) Diagnosis - Hypo-osmolality and hyponatremia cp - COPD/ Chronic obstructive pulmonary disease with (acute) exacerbation cp - Hypoxemia cp Forms: - Medication Reconciliation Form cp - SBAR form cp Signatures: Dispatcher [employer] EDMS Carrie Swenson RN RN mw Ballard, Brenda RN RN Severo Montalvo MD MD rn Smirch, Shelby, RN RN ss Attema, Lee, [facility] Eligio Thomas PA PA cp Landell, Sophia, RN RN sl2 Corrections: (The following items were deleted from the chart) 07/12 16:04 15:50 Influenza Screen (A \T\ B)+BA.LAB.BRZ ordered. EDMS EDMS 16:04 15:50 CORONAVIRUS+MR.LAB.BRZ ordered. EDMS EDMS 17:55 16:47 NS 0.9% 1000 ml IV at 75 ml/hr continuous ordered. cp cp 19:16 19:16 Banana Bag - (Multivitamin 1 amp, NS 0.9% 1000 ml, Thiamine 100 mg, foLIC Acid 1 la1 mg) IV at calculated rate once ordered. la1 19:40 17:59 Intensive Care Unit cp mw 19:40 17:59 cp mw
[2021-07-12] MEDS ORDERED: FUROSEMIDE 20 MG/ 2ML VIAL ONE (18:06)
[2021-07-12] MEDS ORDERED: MAGNESIUM SULFATE 1 gm IVPB 1 GM/100 ML BAG IV ONE (18:16)
[2021-07-12 18:22] LABS: Arterial Blood Carboxyhemoglob 3.9 % (0-1.5); Blood Gas Oxyhemoglobin 89.7 % (94-97); Blood O2 Saturation 94.2 % (92-98.5)
--- NOTE | 2021-07-12 19:10 | P.HP ---
Certification for Inpatient Patient admitted to: Inpatient With expected LOS: >2 Midnights Patient will require the following post-hospital care: None Practitioner: I am a practitioner with admitting privileges, knowledge of patient current condition, hospital course, and medical plan of care. Services: Services provided to patient in accordance with Admission requirements found in Title 42 Section 412.3 of the Code of Federal Regulations Patient History Date of Service: 07/12/21 Primary Care Provider: Dr. Leal Reason for admission: Hyponatremia, COPD exacerbation History of Present Illness: 66-year-old male with history of COPD, BPH, alcohol abuse who has previously been treated for hyponatremia presents emergency department for shortness of breath. Patient reports breathing became much worse over the course of the last 24 hours. Patient does admit to smoking a pack per day and also drinking approximately half a gallon of wine per day. Patient was found to be hypoxic on room air with saturations in the high 80s still wheezing after multiple rounds of nebulizer treatments. Further evaluation revealed labs significant for sodium 115 potassium 5 chloride 75 CO2 32 BNP 507 ABG pH 7.33 PCO2 60.9 PO2 77.5 on oxygen patient was placed on BiPAP nephrology was consulted who recommended a dose of Lasix IV followed by fluid restriction with repeat labs in 6 hours. Will admit for hyponatremia, acute on chronic hypoxic hypercapnic respiratory failure Allergies No Known Allergies Allergy (Unverified 10/26/20 23:41) Home Medications: Amlodipine [Norvasc*] 10 mg PO DAILY 10/28/20 Fluticasone/Umeclidin/Vilanter [Trelegy Ellipta 100-62.5-25] 1 each IH DAILY 10/28/20 Ampicillin Trihydrate [Omnipen Cap] 1,000 mg PO Q6H #56 cap 11/04/20 Arformoterol Tartrate [Brovana] 15 mcg NEB BIDRESP vial.neb 11/04/20 Ipratropium Neb [Atrovent*] 0.5 mg NEB Q6HP PRN amp 11/04/20 Nicotine [Nicoderm*] 21 mg TD DAILY patch.td24 11/04/20 Propranolol [Inderal*] 10 mg PO BID tab 11/04/20 Tamsulosin [Flomax*] 0.4 mg PO DAILY cap 11/04/20 Thiamine HCl [Vitamin B-1*] 100 mg PO DAILY tablet 11/04/20 lisinopriL [Prinivil*] 20 mg PO DAILY tab 11/04/20 Arformoterol Tartrate [Brovana] 15 mcg NEB BIDRESP vial.neb 11/13/20 - Past Medical/Surgical History -: COPD -: Hypertension -: Alcohol abuse -: Hyponatremia -: Hernia repair Psychosocial/ Personal History: 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 - Family History Family History: Reviewed- Non-Contributory - Social History Smoking Status: Current every day smoker Counseled patient to stop smoking for: less than 10 minutes Smoking therapy provided: Yes Alcohol use: Yes CD- Drugs: No Caffeine use: Yes Place of Residence: Home Review of Systems 10-point ROS is otherwise unremarkable General: Weakness, Malaise Respiratory: Cough, Shortness of Breath, SOB with Excertion, Wheezing Physical Examination - Physical Exam General: Alert, In no apparent distress, Oriented x3, Disheveled, Obese HEENT: Atraumatic, PERRLA, Mucous membr. moist/pink, EOMI, Sclerae nonicteric Neck: Supple, 2+ carotid pulse no bruit, No LAD, Without JVD or thyroid abnormality Respiratory: Diminished, Expiratory wheezes Cardiovascular: Regular rate/rhythm, Normal S1 S2, Edema (1+ nonpitting edema bilateral lower extremities) Gastrointestinal: Normal bowel sounds, No tenderness Musculoskeletal: No tenderness Integumentary: No rashes Neurological: Normal gait, Normal speech, Normal strength at 5/5 x4 extr, Normal tone, Normal affect - Studies Laboratory Data (last 24 hrs) 07/12/21 16:00: PT 12.0, INR 1.04 07/12/21 16:00: WBC 7.30, Hgb 15.1, Hct 43.8, Plt Count 224 07/12/21 16:00: Sodium 115 L*, Potassium 5.0, BUN 5 L, Creatinine 0.60, Glucose 94, Magnesium 2.0 D, Total Bilirubin 0.7, AST 49 H, ALT 36, Alkaline Phosphatase 79 Assessment and Plan - Plan Assessment: Acute on chronic hypoxic hypercapnic respiratory failure secondary to COPD with exacerbation Hyponatremia Alcohol abuse Hypomagnesemia Plan: Acute on chronic hypoxic hypercapnic respiratory failure secondary to COPD with exacerbation: BiPAP at this time, scheduled nebs, IV steroids, ICS. Pulmonology consult in place. Supplemental oxygen as needed. Anticipate clinical improvement over the course the next 2 to 3 days. Hyponatremia: Case discussed with nephrology, recommendation was for initial dose of Lasix in the emergency department followed by fluid restriction, repeat labs in 6 hours and every 6 hours after that. Will work in conjunction with managing patient's sodium not to overcorrect. Seizure precautions. Admit to ICU until sodium improves and stabilizes Alcohol abuse: Patient reports to me that he drinks approximately half a gallon of wine per day last drink was this morning 07/12/2021. EtOH withdrawal assessments in place, as needed Ativan. Will provide with IV thiamine as well. Hypomagnesemia: Protocol in place. DVT PPX: Lovenox Code status: Full Discharge Plan: Home Plan to discharge in: Greater than 2 days - Advance Directives Does patient have a Living Will: No Does patient have a Durable POA for Healthcare: No - Code Status/Comfort Care Code Status Assessed: Yes (Full code) Critical Care: No Time Spent Managing Pts Care (In Minutes): 55
[2021-07-12 19:48] LABS: Uric Acid 3.5 mg/dL (3.5-7.2)
[2021-07-12] MEDS ORDERED: MULTIVITAMINS 10 ML VIAL (INJ) IV ONE (20:06)
[2021-07-12] MEDS ORDERED: NA CHLORIDE 0.9% 1,000 ML ONE (20:06)
[2021-07-12] MEDS ORDERED: THIAMINE 200 MG/2 ML INJ ONE ×2 (20:06→20:57)
[2021-07-12] MEDS ORDERED: FOLIC ACID 5 MG/ML VIAL ONE ×2 (20:07→20:59)
[2021-07-12] MEDS ORDERED: NA CHLORIDE 0.9% 50 ML ONE (21:00)
[2021-07-12] MEDS ORDERED: ONDANSETRON 4 MG/2 ML VIAL IV PRN (21:22)
[2021-07-12] MEDS: DULERA 200/5 (MOMETASONE/FORMOTEROL) INHALER IH SCH (21:22)
[2021-07-12] MEDS ORDERED: ACETAMINOPHEN 500 MG TAB PO PRN (21:22)
[2021-07-12] MEDS: IPRATROPIUM BROM 0.5MG/2.5ML NEB SCH (21:22)
[2021-07-12] MEDS: ALBUTEROL 2.5 MG/3 ML NEB SOL NEB SCH (21:36)
[2021-07-12] MEDS: NICOTINE 14 MG/PAT TD SCH (22:00)
[2021-07-12] MEDS ORDERED: NICOTINE 21 MG/PAT TD ONE (22:04)
[2021-07-13 00:22] LABS: Urine Appearance CLEAR (Clear); Urine Bilirubin NEGATIVE (Negative); Urine Blood 2+ (Negative); Urine Color YELLOW (Yellow); Urine Glucose NEGATIVE (Negative); Urine Specific Gravity <1.005 (1.005-1.030)
[2021-07-13 00:23] LABS: Urine Bacteria <20 /HPF (NONE SEEN); Urine Microscopic Reflex ORDER UMIC; Urine Protein NEGATIVE (Negative); Urine Urobilinogen 0.2 mg/dL (0.2-1.0)
[2021-07-13 01:15] LABS: BUN Blood Urea Nitrogen 5 mg/dL (7-18); Bicarbonate 33 mmol/L (21-32); Glucose Level 150 mg/dL (74-106); Potassium 4.8 mmol/L (3.5-5.1); Sodium Level 120 mmol/L (136-145)
[2021-07-13 01:23] LABS: Urine Blood 2+ (Negative); Urine Glucose Negative (Negative); Urine Protein Negative (Negative); Urine Specific Gravity <=1.005 (1.005-1.030)
[2021-07-13] MEDS ORDERED: IPRATROPIUM BROM 0.5MG/2.5ML ONE ×4 (02:12→20:00)
[2021-07-13] MEDS ORDERED: ALBUTEROL 2.5 MG/3 ML NEB SOL ONE ×2 (02:12→07:40)
[2021-07-13] MEDS: ALBUTEROL 2.5 MG/3 ML NEB SOL NEB SCH ×2 (02:15→07:44)
[2021-07-13] MEDS: IPRATROPIUM BROM 0.5MG/2.5ML NEB SCH ×4 (02:15→20:00)
[2021-07-13] MEDS ORDERED: METHYLPREDNISOLONE 40 MG INJ ONE ×3 (04:31→21:12)
[2021-07-13 04:34] LABS: Absolute Lymphocytes (CBC) 0.4 K/uL (0.7-4.9); Basophils % 0.1 % (0-1.3); Hematocrit 44.1 % (39.6-49.0); Lymphocytes % 5.6 % (15.3-44.8); RBC Red Blood Cell Count 4.41 M/uL (4.33-5.43)
[2021-07-13] MEDS: METHYLPREDNISOLONE 40 MG INJ IV SCH ×4 (04:34→21:14)
[2021-07-13 04:53] LABS: BUN Blood Urea Nitrogen 6 mg/dL (7-18); Bicarbonate 32 mmol/L (21-32); Glucose Level 144 mg/dL (74-106); Potassium 4.8 mmol/L (3.5-5.1)
[2021-07-13 04:55] LABS: Sodium Level 119 mmol/L (136-145)
[2021-07-13 05:01] LABS: Magnesium 2.1 mg/dL (1.8-2.4)
[2021-07-13] MEDS ORDERED: NACHLORIDE 0.45% 1,000 ML IV SCH ×2 (08:00→10:59)
[2021-07-13] MEDS ORDERED: THIAMINE HCL 100 MG TABLET ONE (08:23)
[2021-07-13] MEDS ORDERED: ENOXAPARIN 40 MG/0.4 ML SQ ONE (08:23)
[2021-07-13] MEDS ORDERED: NACHLORIDE 0.45% 1,000 ML IV ONE (08:24)
[2021-07-13] MEDS: ENOXAPARIN 40 MG/0.4 ML SQ SCH (08:26)
[2021-07-13] MEDS ORDERED: FOLIC ACID 1 MG, MULTIVITAMINS INJ 10 ML, THIAMINE HCL 100 MG in NA CHLORIDE 0.9% 1,000 ML IV SCH (09:00)
[2021-07-13] MEDS ORDERED: THIAMINE HCL 100 MG TABLET PO SCH (09:00)
[2021-07-13] MEDS: DULERA 200/5 (MOMETASONE/FORMOTEROL) INHALER IH SCH ×2 (10:24→21:14)
[2021-07-13] MEDS: NICOTINE 14 MG/PAT TD SCH (10:25)
--- NOTE | 2021-07-13 10:57 | P.CNS ---
Date of Consult: 07/13/21 Primary Care Provider: Dr. Leal Chief Complaint: Hyponatremia, COPD exacerbation History of Present Illness: Patient is 66 years of age with a history of COPD alcohol abuse was recently discharged admitted again worse to the preceding 24 hr he still continues to smoke and drink heavily was found to be hypoxic has oxygen at home is compliant with his therapy he is doing much better Patient was severely hyponatremia Allergies No Known Allergies Allergy (Unverified 10/26/20 23:41) Home Medications: Amlodipine [Norvasc*] 10 mg PO DAILY 10/28/20 Fluticasone/Umeclidin/Vilanter [Trelegy Ellipta 100-62.5-25] 1 each IH DAILY 10/28/20 Ampicillin Trihydrate [Omnipen Cap] 1,000 mg PO Q6H #56 cap 11/04/20 Arformoterol Tartrate [Brovana] 15 mcg NEB BIDRESP vial.neb 11/04/20 Ipratropium Neb [Atrovent*] 0.5 mg NEB Q6HP PRN amp 11/04/20 Nicotine [Nicoderm*] 21 mg TD DAILY patch.td24 11/04/20 Propranolol [Inderal*] 10 mg PO BID tab 11/04/20 Tamsulosin [Flomax*] 0.4 mg PO DAILY cap 11/04/20 Thiamine HCl [Vitamin B-1*] 100 mg PO DAILY tablet 11/04/20 lisinopriL [Prinivil*] 20 mg PO DAILY tab 11/04/20 Arformoterol Tartrate [Brovana] 15 mcg NEB BIDRESP vial.neb 11/13/20 - Past Medical/Surgical History -: COPD -: Hypertension -: Alcohol abuse -: Hyponatremia -: Hernia repair Psychosocial/ Personal History: 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 - Social History Smoking Status: Current every day smoker Alcohol use: Yes CD- Drugs: No Caffeine use: Yes Place of Residence: Home Review of Systems 10-point ROS is otherwise unremarkable General: Weakness Respiratory: Shortness of Breath Physical Examination Temp Pulse Resp BP Pulse Ox 98.2 F 97 H 20 135/90 95 07/13/21 04:00 07/13/21 04:00 07/13/21 04:00 07/13/21 04:00 07/13/21 04:00 General: Alert, In no apparent distress, Oriented x3 Respiratory: Expiratory wheezes Cardiovascular: Regular rate/rhythm Gastrointestinal: Normal bowel sounds, Soft and benign Laboratory Data (last 24 hrs) 07/12/21 19:00: Phosphorus 3.1 07/12/21 19:00: Uric Acid 3.5 07/12/21 16:00: PT 12.0, INR 1.04 07/12/21 16:00: WBC 7.30, Hgb 15.1, Hct 43.8, Plt Count 224 07/12/21 16:00: Sodium 115 L*, Potassium 5.0, BUN 5 L, Creatinine 0.60, Glucose 94, Magnesium 2.0 D, Total Bilirubin 0.7, AST 49 H, ALT 36, Alkaline Phosphatase 79 - Problems (1) Hyponatremia Current Visit: No Status: Acute Plan: Patient is 66 years of age admitted with yet again severe hyponatremia patient's thyroid function is normal serum cortisol level is elevated urine sodium is less than 20 his probably hypovolemic labs pending patient is an alcoholic increase IV fluids 2D echocardiogram with Doppler doubt a SIADH patent patient's urinary sodium is low serum osmolalities relatively low (2) COPD exacerbation Current Visit: No Status: Acute Plan: Patient has underlying presume severe COPD he is compliant with his inhalers at home oxygenation satisfactory mildly hypercapnic can Dc BiPAP titrate O2 to sat of 90%
[2021-07-13 12:30] LABS: Potassium 4.7 mmol/L (3.5-5.1)
[2021-07-13] MEDS ORDERED: D5W 1,000 ML IV SCH (13:00)
[2021-07-13] MEDS ORDERED: DESMOPRESSIN 4 MCG/ML AMP SQ ONE (13:00)
[2021-07-13] MEDS ORDERED: D5W 1,000 ML IV ONE ×2 (13:14→18:14)
[2021-07-13] MEDS: D5W 1,000 ML IV SCH ×3 (13:15→23:00)
--- NOTE | 2021-07-13 13:41 | P.PN ---
Subjective Date of Service: 07/13/21 Primary Care Provider: Dr. Leal Chief Complaint: Hyponatremia, COPD exacerbation Patient seen on BiPAP. He states his shortness of breath has improved. His sodium level also improving slowly. He denies any chest pain. No recorded fever. Physical Examination - Vital Signs Temperature: 98.8 F Blood Pressure: 147/73 Pulse: 97 Respirations: 24 Pulse Ox (%): 93 - Physical Exam General: Alert, In no apparent distress HEENT: Other (BiPAP) Neck: JVD not distended Respiratory: Diminished, Expiratory wheezes (Bilateral) Cardiovascular: No edema, Normal S1 S2, Other (Tachycardia) Gastrointestinal: Soft and benign, Non-distended, No tenderness Musculoskeletal: No swelling Integumentary: Other (Scattered bruises on bilateral upper and lower limbs) Neurological: Normal strength at 5/5 x4 extr, Cranial nerves 3-12 intact - Studies Laboratory Data (last 24 hrs) 07/12/21 19:00: Phosphorus 3.1 07/12/21 19:00: Uric Acid 3.5 07/12/21 16:00: PT 12.0, INR 1.04 07/12/21 16:00: WBC 7.30, Hgb 15.1, Hct 43.8, Plt Count 224 07/12/21 16:00: Sodium 115 L*, Potassium 5.0, BUN 5 L, Creatinine 0.60, Glucose 94, Magnesium 2.0 D, Total Bilirubin 0.7, AST 49 H, ALT 36, Alkaline Phosphatase 79 Assessment And Plan - Current Problems (Diagnosis) (1) Acute respiratory failure with hypoxia Current Visit: No Status: Acute (2) Alcohol abuse Current Visit: No Status: Acute (3) COPD exacerbation Current Visit: No Status: Acute (4) Hyponatremia Current Visit: No Status: Acute (5) Acute diastolic heart failure Current Visit: Yes Status: Acute (6) Hypertension Current Visit: Yes Status: Acute - Plan Nephrology is following for hyponatremia treatment. Wean off BiPAP as tolerated. Continue treatment for COPD exacerbation with IV steroids, scheduled bronchodilators, IV antibiotics. Checks x-ray shows possible vascular congestion.. Patient given a dose of IV Lasix in the ED. CIWA for alcohol withdrawal Start banana bag once hyponatremia is adequately controlled. IV Lasix as needed Pulmonary input appreciated.
[2021-07-13 16:17] LABS: BUN Blood Urea Nitrogen 12 mg/dL (7-18); Bicarbonate 33 mmol/L (21-32); Glucose Level 173 mg/dL (74-106); Potassium 4.7 mmol/L (3.5-5.1); Sodium Level 122 mmol/L (136-145)
[2021-07-13] MEDS ORDERED: ALBUMIN HUMAN 25% 0 ML IV ONE (18:13)
[2021-07-13] MEDS ORDERED: AMPICILLIN/SULBACTAM 3GM/VIAL ONE (18:13)
[2021-07-13 22:43] LABS: BUN Blood Urea Nitrogen 12 mg/dL (7-18); Bicarbonate 35 mmol/L (21-32); Glucose Level 148 mg/dL (74-106); Potassium 4.9 mmol/L (3.5-5.1); Sodium Level 123 mmol/L (136-145)
[2021-07-14] MEDS ORDERED: IPRATROPIUM BROM 0.5MG/2.5ML ONE ×4 (01:19→19:44)
[2021-07-14] MEDS: IPRATROPIUM BROM 0.5MG/2.5ML NEB SCH ×4 (01:25→19:45)
[2021-07-14] MEDS ORDERED: D5W 1,000 ML IV ONE (01:42)
[2021-07-14] MEDS: D5W 1,000 ML IV SCH (04:00)
[2021-07-14 05:14] LABS: Absolute Lymphocytes (CBC) 0.5 K/uL (0.7-4.9); Basophils % 0.3 % (0-1.3); Hematocrit 41.4 % (39.6-49.0); Lymphocytes % 4.5 % (15.3-44.8); RBC Red Blood Cell Count 4.08 M/uL (4.33-5.43)
[2021-07-14 05:34] LABS: Blood Morphology Comment NOTED (NOT SEEN); Platelet Estimate ADEQ
[2021-07-14 05:57] LABS: BUN Blood Urea Nitrogen 10 mg/dL (7-18); Bicarbonate 34 mmol/L (21-32); Glucose Level 148 mg/dL (74-106); Magnesium 2.3 mg/dL (1.8-2.4); Phosphorus 3.2 mg/dL (2.5-4.9); Potassium 5.1 mmol/L (3.5-5.1); Sodium Level 121 mmol/L (136-145)
[2021-07-14] MEDS ORDERED: ALBUTEROL 2.5 MG/3 ML NEB SOL ONE (08:07)
[2021-07-14] MEDS: ALBUTEROL 2.5 MG/3 ML NEB SOL NEB PRN ×2 (08:10→13:25)
[2021-07-14] MEDS ORDERED: METHYLPREDNISOLONE 40 MG INJ ONE ×2 (08:11→20:42)
[2021-07-14] MEDS ORDERED: THIAMINE 200 MG/2 ML INJ ONE (08:11)
[2021-07-14] MEDS ORDERED: ENOXAPARIN 40 MG/0.4 ML SQ ONE (08:12)
[2021-07-14] MEDS: ENOXAPARIN 40 MG/0.4 ML SQ SCH (08:28)
[2021-07-14] MEDS: NICOTINE 14 MG/PAT TD SCH (08:28)
[2021-07-14] MEDS: METHYLPREDNISOLONE 40 MG INJ IV SCH ×2 (08:29→21:00)
[2021-07-14] MEDS: THIAMINE 200 MG/2 ML INJ IVP SCH (08:30)
[2021-07-14] MEDS: DULERA 200/5 (MOMETASONE/FORMOTEROL) INHALER IH SCH ×2 (08:30→21:00)
[2021-07-14] MEDS ORDERED: D5W 1,000 ML IV SCH (08:30)
[2021-07-14] MEDS ORDERED: FOLIC ACID 5 MG/ML VIAL IVP SCH (09:00)
[2021-07-14] MEDS: PROPRANOLOL HCL 10 MG TAB PO SCH ×2 (09:23→21:00)
[2021-07-14] MEDS: NICOTINE 21 MG/PAT TD SCH (09:24)
[2021-07-14] MEDS ORDERED: TAMSULOSIN 0.4 MG SR CAP ONE (10:13)
[2021-07-14] MEDS ORDERED: AMLODIPINE 10 MG TAB ONE (10:13)
[2021-07-14] MEDS ORDERED: lisinopriL 20 MG TAB ONE (10:13)
[2021-07-14] MEDS: lisinopriL 20 MG TAB PO SCH (10:15)
[2021-07-14] MEDS: TAMSULOSIN 0.4 MG SR CAP PO SCH (10:16)
[2021-07-14] MEDS: AMLODIPINE 10 MG TAB PO SCH (10:16)
[2021-07-14] MEDS: FOLIC ACID 1 MG in NA CHLORIDE 0.9% 50 ML IV SCH (10:17)
[2021-07-14 12:12] LABS: BUN Blood Urea Nitrogen 9 mg/dL (7-18); Bicarbonate 36 mmol/L (21-32); Glucose Level 133 mg/dL (74-106); Potassium 4.8 mmol/L (3.5-5.1); Sodium Level 121 mmol/L (136-145)
--- NOTE | 2021-07-14 12:36 | CON ---
Date of Consultation: 07/13/2021 Chief Complaint: Hyponatremia, hypoosmolar. The patient was found to have severe hyponatremia. Sod ium level was 115. Nephrology consultation was requested. History Of Present Illness: The patient has multiple medical problems including history of COPD, BPH , alcohol abuse. The patient was previously treated for hyponatremia when he presented to the emerge ncy room for shortness of breath. The patient came to the hospital yesterday and reported difficulty with ambulation, he became short of breath, the patient is on BiPAP and he has history of alcohol ab use as well as tobacco abuse. He drinks approximately half a gallon of wine per day. The patient de nies nausea, vomiting, melena, hematemesis. Denies tremors or syncope. The patient was found to hav e hypoxemia, saturation was in high 80s. He had some wheezing and was treated with nebulizers and AB G was done showing pH 7.33, pCO2 of 60.9, pO2 was 77.5. He was placed on oxygen and subsequently on BiPAP. BNP was 507. Sodium level was 115. The patient received IV Lasix for volume control and flu id overload. The patient had lower extremity edema. Medications: Amlodipine, , NicoDerm, propranolol, fluticasone, tamsulosin, thiamine, lisin opril, Brovana. Past Medical History: COPD, hypertension, alcohol abuse, history of hyponatremia, . Family History: No kidney disease in the family. Social History: Tobacco, active tobacco smoker. Alcohol, active alcohol intake with significant fadumo unt of alcohol per day intake. Review of Systems: Respiratory: Cough, shortness of breath with wheezing. Genitourinary: Denies lower urinary tract symptoms. Extremities: Has lower extremity edema. Gastrointestinal: Denies nausea, vomiting, melena, hematemesis. Cardiovascular: Denies chest pain or palpitations. Physical Examination: General: Alert. The patient is not in acute distress. Eyes: Anicteric sclerae. EOMI. Ears, Nose, Mouth, and Throat: Oral mucosa moist. No pallor. Neck: Supple. No bruits. Lungs: Few wheezes. Heart: S1, S2. No pericardial friction or rub. GI: Abdomen obese, soft, nontender. Extremities: Edema slightly in the legs. Laboratory Data: Sodium on admission 115, potassium 5.0, BUN 5, creatinine 0.6, glucose 94, magnesiu m 2.0, 79. Impression: Hyponatremia, hypoosmolar, due to alcohol withdrawal assessment. Plan: 1.Hyponatremia. Plan is to monitor electrolytes and treatment. Accordingly, the patient was starte d on normal saline with . Continue to monitor urine electrolytes and BMP protei n intake. 2.Fluid overload. The patient rem Lasix. Monitor fluid balance. CHELO/MODL Voice ID: [id number] Report ID: [id number]
--- NOTE | 2021-07-14 14:51 | ECHO ---
HEIGHT: 5 ft 11 in WEIGHT: 280 lb 0 oz DATE OF STUDY: 07/14/[address]: Cooper Holt MD 2-DIMENSIONAL: YES M.MODE: YES DOPPLER: YES COLOR FLOW: YES TDS: YES PORTABLE: NO DEFINITY: NO BUBBLE STUDY: NO DIAGNOSIS: RESPIRATORY FAILURE CARDIAC HISTORY: CATHERIZATION: NO SURGERY: NO PROSTHETIC VALVE: NO PACEMAKER: NO MEASUREMENTS (cm) DIASTOLIC (NORMALS) SYSTOLIC (NORMALS) IVSd 1.1 (0.6-1.2) LA Diam 2.9 (1.9-4.0) LVEF 60-65% LVIDd 4.7 (3.5-5.7) LVIDs 2.4 (2.0-3.5) %FS 48% LVPWd 1.1 (0.6-1.2) Ao Diam 3.6 (2.0-3.7) 2 DIMENSIONAL ASSESSMENT: RIGHT ATRIUM: NORMAL LEFT ATRIUM: NORMAL RIGHT VENTRICLE: NORMAL LEFT VENTRICLE: NORMAL TRICUSPID VALVE: NORMAL MITRAL VALVE: NORMAL PULMONIC VALVE: NORMAL AORTIC VALVE: NORMAL PERICARDIAL EFFUSION: NONE AORTIC ROOT: NORMAL LEFT VENTRICULAR WALL MOTION: NORMAL DOPPLER/COLOR FLOW: NORMAL COMMENTS: NORMAL LEFT VENTRICULAR EJECTION FRACTION 60-65%. NORMAL WALL MOTION. TECHNOLOGIST: [place] BENITO
--- NOTE | 2021-07-14 17:01 | P.PN ---
Subjective Date of Service: 07/14/21 Primary Care Provider: Dr. Leal Chief Complaint: Hyponatremia, COPD exacerbation Patient weaned off BiPAP and tolerating oxygen by nasal cannula. Sodium level decreased slightly from yesterday. Patient reports intermittent shortness of breath. Physical Examination - Vital Signs Temperature: 98.3 F Blood Pressure: 120/62 Pulse: 61 Respirations: 20 Pulse Ox (%): 99 - Physical Exam General: Alert, In no apparent distress, Obese HEENT: Mucous membr. moist/pink Neck: JVD not distended Respiratory: Diminished, Expiratory wheezes (Bilateral) Cardiovascular: No edema, Regular rate/rhythm, Normal S1 S2 Gastrointestinal: Normal bowel sounds, Soft and benign, Non-distended, No tenderness Musculoskeletal: No swelling, No tenderness Integumentary: No rashes, No cyanosis Neurological: Normal speech, Normal strength at 5/5 x4 extr, Cranial nerves 3-12 intact Assessment And Plan - Current Problems (Diagnosis) (1) Acute respiratory failure with hypoxia Current Visit: No Status: Acute (2) Alcohol abuse Current Visit: No Status: Acute (3) COPD exacerbation Current Visit: No Status: Acute (4) Hyponatremia Current Visit: No Status: Acute (5) Acute diastolic heart failure Current Visit: Yes Status: Acute (6) Hypertension Current Visit: Yes Status: Acute - Plan Nephrology is following for hyponatremia treatment. Patient weaned off BiPAP. Continue treatment for COPD exacerbation with IV steroids, scheduled bronchodilators, IV antibiotics. Chest x-ray shows possible vascular congestion.. Patient given a dose of IV Lasix in the ED. Lasix on hold due to hyponatremia. Continue CIWA for alcohol withdrawal Start banana bag once hyponatremia is adequately controlled. Pulmonary is following.
[2021-07-14] MEDS ORDERED: LORazepam 2 MG/ML VIAL IV PRN (17:02)
[2021-07-14] MEDS ORDERED: FLUMAZENIL 0.1 MG/ML (5 mL VIAL) IV PRN (17:02)
[2021-07-14 17:03] LABS: BUN Blood Urea Nitrogen 10 mg/dL (7-18); Bicarbonate 38 mmol/L (21-32); Glucose Level 135 mg/dL (74-106); Potassium 5.3 mmol/L (3.5-5.1); Sodium Level 124 mmol/L (136-145)
[2021-07-14] MEDS ORDERED: LORazepam 2 MG/ML VIAL ONE ×2 (17:25→21:26)
[2021-07-14] MEDS: LORazepam 2 MG/ML VIAL IV SCH ×2 (17:28→22:00)
[2021-07-14] MEDS ORDERED: ARFORMOTEROL TARTRATE 15 MCG/2 ML VIAL.NEB ONE (19:44)
[2021-07-14] MEDS: ARFORMOTEROL TARTRATE 15 MCG/2 ML VIAL.NEB NEB SCH (19:45)
[2021-07-14 22:30] LABS: BUN Blood Urea Nitrogen 12 mg/dL (7-18); Bicarbonate 38 mmol/L (21-32); Glucose Level 160 mg/dL (74-106); Potassium 4.8 mmol/L (3.5-5.1); Sodium Level 125 mmol/L (136-145)
[2021-07-15] MEDS ORDERED: LORazepam 2 MG/ML VIAL ONE ×3 (01:03→21:51)
[2021-07-15] MEDS ORDERED: ALBUTEROL 2.5 MG/3 ML NEB SOL ONE (01:55)
[2021-07-15] MEDS: ALBUTEROL 2.5 MG/3 ML NEB SOL NEB PRN (01:55)
[2021-07-15] MEDS ORDERED: IPRATROPIUM BROM 0.5MG/2.5ML ONE ×4 (01:55→18:13)
[2021-07-15] MEDS: IPRATROPIUM BROM 0.5MG/2.5ML NEB SCH ×5 (01:55→20:00)
[2021-07-15] MEDS: LORazepam 2 MG/ML VIAL IV SCH ×3 (01:59→09:41)
--- NOTE | 2021-07-15 02:01 | PN ---
Date of Progress Note: 07/14/2021 Chief Complaint: Hyponatremia, hypo-osmolar. Subjective: Patient was found to have severe hyponatremia. On arrival to the hospital, sodium level was 115. The patient has multiple medical problems. He presented with complaints of shortness of b reath and generalized weakness. He had severe leg edema. He was started on BiPAP for hypoxemic resp iratory failure. SPO2 was in 80s. The patient had ABG which showed pH 7.3, pCO2 of 60.9, PO2 of 77. 5. BNP was 507. The patient received Lasix for congestive heart failure and fluid overload. He had electrolytes and it showed sodium of 115. The patient was started on protocol for alcohol withdrawa l and received banana bag as well. The patient has fluid overload and volume is in better control. He developed polyuria and received D DAVP to gradually correct sodium level and overly rapid correction. Sodium level has impr merary gradually. The patient required IV fluids with D5W. Review of Systems: Patient denies fever or chills. Objective: Lungs: Diminished breath sounds. Heart: S1, S2. Abdomen: Soft, benign extremities. Extremities: Edema present, overall improved. Lab Work: Chemistries on July 12 at 1600, sodium 115, potassium 5.0, chloride 75, BUN 5, creat inine 0.6, serum osmolality 237, calcium 8.5, uric acid 3.5, magnesium 2.0. Urine sodium 77 and urin e osmolality 193. BNP is 507. Impression And Plan: 1.Hyponatremia, hypo-osmolality. Sodium level is improving gradually. The patient will require tiffanie se monitoring of electrolytes and adjustment of fluid. Currently, he is off IV and urine output will be checked, and in case polyuria, he may require adjustment treatment in form of IV fluids with dext chaz, with hypotonic fluid, and with DDAVP. Recent sodium level is 124, potassium 5.3, chloride 88, BUN 10, creatinine 0.73, and test was done on July 14, at 1630. 2.Mild hyperkalemia, evaluate renal panel in 6 hours. Continue current treatment with thiamine for alcohol withdrawal. Further recommendation for alcohol withdrawal from primary team. 3.Sodium level is gradually improving. The patient is advancing with p.o. intake. Monitor renal pa kimberly and adjust treatment accordingly. Hyponatremia in this particular case is multiple an d contributory factor is low-salt diet and alcohol intake, which is as well as there is so me element of SIADH. CHELO/NORA Voice ID: [id number] Report ID: [id number]
[2021-07-15 04:33] LABS: Absolute Lymphocytes (CBC) 0.5 K/uL (0.7-4.9); Basophils % 0.3 % (0-1.3); Hematocrit 42.7 % (39.6-49.0); Lymphocytes % 6.7 % (15.3-44.8); MPV 6.9 fL (7.6-11.3); RBC Red Blood Cell Count 4.14 M/uL (4.33-5.43)
[2021-07-15 04:50] LABS: BUN Blood Urea Nitrogen 12 mg/dL (7-18); Bicarbonate 40 mmol/L (21-32); Glucose Level 128 mg/dL (74-106); Magnesium 2.6 mg/dL (1.8-2.4); Phosphorus 4.5 mg/dL (2.5-4.9); Potassium 5.5 mmol/L (3.5-5.1); Sodium Level 126 mmol/L (136-145)
--- NOTE | 2021-07-15 07:08 | P.PN ---
Subjective Date of Service: 07/15/21 Primary Care Provider: Dr. Leal Chief Complaint: Hyponatremia, COPD exacerbation Subjective: Other (In acute respi distress) Physical Examination - Vital Signs Temperature: 98.2 F Blood Pressure: 113/95 Pulse: 89 Respirations: 12 Pulse Ox (%): 93 - Physical Exam General: Other (appears as his stated age) HEENT: Normocephalic, Other (+bipap) Neck: Supple, JVD not distended Respiratory: Other (symmetric chest expansion) Cardiovascular: No rubs, No murmurs Gastrointestinal: Soft and benign Musculoskeletal: Swelling Integumentary: No warmth Neurological: Other (AMS) Lymphatics: No axilla or inguinal lymphadenopathy Urinary: Garza catheter External genitalia: Deferred Rectal: Deferred Assessment And Plan - Plan 1. Hyponatremia 2/2 high ADH state. Sodium level plateaued at 126. Tolvaptan 15 mg po x 1 now. 2. Hyperkalemia. Acidosis correction via bipap, shld improve serum K level. 3. Respiratory acidosis + metabolic acidosis. On bipap. F/u repeat ABG. 4. Acute respi failure 2/2 COPD exacerbation + diastolic CHF. Aggravated by ativan use. Respi support per other services. 5. Htn. Cont current BP med regimen. 6. Alcohol withdrawal. Mngt per primary team.
[2021-07-15] MEDS ORDERED: HOME MED 1 EA UNK (Fluticasone/Umeclidin/Vilanter [Trelegy Ellipta 100-62.5-25] Blst.W.Dev IH SCH (09:00)
[2021-07-15] MEDS: DULERA 200/5 (MOMETASONE/FORMOTEROL) INHALER IH SCH ×2 (09:00→20:45)
[2021-07-15] MEDS ORDERED: NICOTINE 21 MG/PAT TD ONE (09:33)
[2021-07-15] MEDS ORDERED: THIAMINE 200 MG/2 ML INJ ONE (09:33)
[2021-07-15] MEDS ORDERED: AMLODIPINE 10 MG TAB ONE (09:33)
[2021-07-15] MEDS ORDERED: METHYLPREDNISOLONE 40 MG INJ ONE ×3 (09:33→21:11)
[2021-07-15] MEDS ORDERED: lisinopriL 20 MG TAB ONE (09:33)
[2021-07-15] MEDS ORDERED: TAMSULOSIN 0.4 MG SR CAP ONE (09:33)
[2021-07-15] MEDS ORDERED: ENOXAPARIN 40 MG/0.4 ML SQ ONE (09:34)
[2021-07-15] MEDS: NICOTINE 21 MG/PAT TD SCH (09:38)
[2021-07-15] MEDS: PROPRANOLOL HCL 10 MG TAB PO SCH ×2 (09:39→20:44)
[2021-07-15] MEDS: AMLODIPINE 10 MG TAB PO SCH (09:39)
[2021-07-15] MEDS: THIAMINE 200 MG/2 ML INJ IVP SCH (09:39)
[2021-07-15] MEDS: TAMSULOSIN 0.4 MG SR CAP PO SCH (09:39)
[2021-07-15] MEDS: METHYLPREDNISOLONE 40 MG INJ IV SCH ×2 (09:40→20:45)
[2021-07-15] MEDS: ENOXAPARIN 40 MG/0.4 ML SQ SCH (09:40)
[2021-07-15] MEDS: lisinopriL 20 MG TAB PO SCH (09:40)
[2021-07-15] MEDS ORDERED: ARFORMOTEROL TARTRATE 15 MCG/2 ML VIAL.NEB ONE ×2 (09:40→18:13)
[2021-07-15] MEDS: ARFORMOTEROL TARTRATE 15 MCG/2 ML VIAL.NEB NEB SCH ×3 (09:42→20:00)
[2021-07-15 10:45] LABS: Arterial Blood Carboxyhemoglob 1.2 % (0-1.5); Blood Gas Oxyhemoglobin 95.6 % (94-97); Blood O2 Saturation 97.8 % (92-98.5)
[2021-07-15] MEDS: FOLIC ACID 1 MG in NA CHLORIDE 0.9% 50 ML IV SCH (11:05)
[2021-07-15 12:28] LABS: Arterial Blood Carboxyhemoglob 1.4 % (0-1.5); Blood Gas Oxyhemoglobin 86.4 % (94-97); Blood O2 Saturation 88.4 % (92-98.5)
--- NOTE | 2021-07-15 12:49 | P.PN ---
Subjective Date of Service: 07/15/21 Primary Care Provider: Dr. Leal Chief Complaint: Hyponatremia, COPD exacerbation Physical Examination - Vital Signs Temperature: 98.3 F Blood Pressure: 150/83 Pulse: 84 Respirations: 24 Pulse Ox (%): 96 Assessment & Plan - Problems (Diagnosis) (1) Hyponatremia Current Visit: No Status: Acute Plan: Patient is 66 years of age admitted with yet again severe hyponatremia patient's thyroid function is normal serum cortisol level is elevated urine sodium is less than 20 his probably hypovolemic labs pending patient is an alcoholic increase IV fluids 2D echocardiogram with Doppler doubt a SIADH patent patient's urinary sodium is low serum osmolalities relatively low (2) COPD exacerbation Current Visit: No Status: Acute Plan: Patient has underlying presume severe COPD he is compliant with his inhalers at home oxygenation satisfactory mildly hypercapnic can Dc BiPAP titrate O2 to sat of 90%
[2021-07-15 15:37] LABS: Arterial Blood Carboxyhemoglob 1.5 % (0-1.5); Blood Gas Oxyhemoglobin 90.6 % (94-97); Blood O2 Saturation 92.9 % (92-98.5)
--- NOTE | 2021-07-15 15:39 | P.PN ---
Date of Service: 07/15/21 Subjective: Slightly difficult to arouse this morning, nursing reports patient received Ativan 45 minutes prior to my arrival. States he has had some intermittent alcohol withdrawal symptoms last night/overnight. Gets agitated and pulls at lines/nasal cannula at times. Frequently pulling off his pulse oximeter ROS: 10 point ROS difficult to fully obtain Physical Exam General: Slightly difficult to arouse this morning, answers yes/no HEENT: Mucous membr. Dry Respiratory: Diminished, bilateral expiratory wheeze, crackles, on nasal cannula Cardiovascular: Regular rate/rhythm, trace to 1+ edema bilaterally Gastrointestinal: soft, nondistended Musculoskeletal: No swelling, No tenderness Integumentary: No rashes Problem List Acute hypoxemic respiratory failure with hypercarbia, secondary to COPD exacerbation and diastolic CHF exacerbation Acute on chronic COPD Acute on chronic diastolic CHF Hyponatremia History of alcohol abuse, with withdrawal symptoms Hypertension Nephrology is following for hyponatremia treatment. Considering tolvaptan for patient Patient was weaned off BiPAP yesterday, concern he may need to be placed back on BiPAP. Unclear if due to COPD versus overmedication from Ativan Continue treatment for COPD exacerbation with IV steroids, scheduled bronchodilators, IV antibiotics. Pulmonology consulted Chest x-ray shows possible vascular congestion.. Patient given a dose of IV Lasix in the ED. Lasix on hold due to hyponatremia. Continue CIWA for alcohol withdrawal. Discontinue scheduled Ativan, continue with PRN banana bag ordered Check ABG, likely needs BiPAP Dispo: continue ICU level of care, dc in a few days Time Spent Managing Pts Care (In Minutes): 35
[2021-07-15] MEDS ORDERED: TOLVAPTAN 15 MG TABLET PO ONE (16:00)
--- NOTE | 2021-07-15 16:18 | P.PN ---
Subjective Date of Service: 07/16/21 Primary Care Provider: Dr. Leal Chief Complaint: resp failure Subjective: Worsening (PT condition worseend today became unresponive and hypercapneic/ Receiving ativan) Patient's condition deteriorated developed significant hypercapnia was stabilized on BiPAP he is unresponsive blood gases have improved Review of Systems is unable to be obtained Physical Examination - Vital Signs Temperature: 98.3 F Blood Pressure: 150/83 Pulse: 84 Respirations: 24 Pulse Ox (%): 96 - Physical Exam General: Unresponsive Respiratory: Clear to auscultation bilaterally, Diminished Assessment & Plan - Problems (Diagnosis) (1) Hyponatremia Current Visit: No Status: Acute Plan: Hyponatremia is improving (2) COPD exacerbation Current Visit: No Status: Acute Plan: Respiratory failure be side effect of medication he became very hypercapnic stable on BiPAP labs reviewed
--- NOTE | 2021-07-15 16:45 | RAD REPORT ---
EXAM DESCRIPTION: RAD - Chest Single View - 07/15/2021 4:29 pm CLINICAL HISTORY: hypoxia, hypercarbia COMPARISON: Portable chest July 12 TECHNIQUE: AP portable chest image was obtained 07/15/2021 4:29 pm . FINDINGS: Lung volumes are low. Interstitial opacification is present similar to comparison. No dens e mass or consolidation. Low lung volumes accentuate lung markings. Left costophrenic angle blunting is more likely technical than any significant pleural fluid component. Heart and vasculature are normal. No pneumothorax. No acute bony abnormality seen. No acute aortic f indings suspected. IMPRESSION: Limited shallow inspiration film showing lung base atelectasis and a prominent interstit ial pattern matching comparison. No significant change from comparison.
[2021-07-15] MEDS: LORazepam 2 MG/ML VIAL IV PRN (21:45)
[2021-07-16] MEDS ORDERED: LORazepam 2 MG/ML VIAL ONE ×2 (00:03→05:09)
[2021-07-16] MEDS: LORazepam 2 MG/ML VIAL IV PRN ×2 (00:25→05:16)
[2021-07-16] MEDS ORDERED: IPRATROPIUM BROM 0.5MG/2.5ML ONE ×4 (02:14→19:29)
[2021-07-16] MEDS: IPRATROPIUM BROM 0.5MG/2.5ML NEB SCH ×4 (02:15→19:30)
[2021-07-16 05:16] VITALS: BMI 39.0
[2021-07-16 05:23] LABS: Absolute Lymphocytes (CBC) 0.5 K/uL (0.7-4.9); Basophils % 0.2 % (0-1.3); Hematocrit 45.4 % (39.6-49.0); Lymphocytes % 4.2 % (15.3-44.8); RBC Red Blood Cell Count 4.48 M/uL (4.33-5.43)
[2021-07-16 05:39] LABS: ALT/SGPT 38 U/L (12-78); AST/SGOT 49 U/L (15-37); Albumin 3.3 g/dL (3.4-5.0); Alkaline Phosphatase 62 U/L (45-117); BUN Blood Urea Nitrogen 13 mg/dL (7-18); Bicarbonate 40 mmol/L (21-32); Bilirubin Total 0.4 mg/dL (0.2-1.0); Glucose Level 116 mg/dL (74-106); Magnesium 2.4 mg/dL (1.8-2.4); Phosphorus 3.3 mg/dL (2.5-4.9); Potassium 4.9 mmol/L (3.5-5.1); Protein, Total 6.4 g/dL (6.4-8.2); Sodium Level 129 mmol/L (136-145)
[2021-07-16] MEDS ORDERED: FUROSEMIDE 40 MG/4 ML VIAL IV STA (06:07)
--- NOTE | 2021-07-16 06:08 | P.PN ---
Subjective Date of Service: 07/16/21 Primary Care Provider: Dr. Leal Chief Complaint: Hyponatremia, COPD exacerbation Subjective: Other (Reports able to eat more & drink more fluids.) Physical Examination - Vital Signs Temperature: 82 F Blood Pressure: 158/98 Pulse: 89 Respirations: 25 Pulse Ox (%): 99 - Physical Exam General: Other (Appears as his stated age) HEENT: Atraumatic, Normocephalic Neck: Supple, JVD not distended Respiratory: Other (Symmetric chest expansion) Cardiovascular: No rubs, No murmurs Gastrointestinal: Soft and benign Musculoskeletal: No clubbing Integumentary: No warmth Neurological: Other (+lethargy) Urinary: Other (No bladder distention) External genitalia: Deferred Rectal: Deferred Assessment And Plan - Plan 1. Hyponatremia 2/2 high ADH state. Sodium level improved to 129. Received Tolvaptan. Monitor. 2. Hyperkalemia. Improved. Acidosis correction via bipap, shld improve serum K level. Monitor. 3. Respiratory acidosis + metabolic acidosis. O2 support prn. Respi mngt per other services. 4. Acute respi failure 2/2 COPD exacerbation + diastolic CHF. Aggravated by ativan use. Respi support per other services. 5. Htn. Cont current BP med regimen. 6. Alcohol withdrawal. Mngt per primary team.
[2021-07-16] MEDS ORDERED: FUROSEMIDE 40 MG/4 ML VIAL ONE (06:14)
--- NOTE | 2021-07-16 08:15 | EKG ---
Test Date: 2021-07-12 Test Time: 21:08:35 Security Operations Manager: HAM MEASUREMENT RESULTS: Intervals: Rate: 97 SD: 190 QRSD: 88 QT: 362 QTc: 459 Milmay: P: 59 SD: 190 QRS: 32 T: 54 INTERPRETIVE STATEMENTS: Sinus rhythm with premature supraventricular complexes and premature ventricular complexes or fusion complexes Possible Left atrial enlargement RSR' or QR pattern in V1 suggests right ventricular conduction delay Anterior infarct, age undetermined Abnormal ECG Compared to ECG 10/26/2020 16:59:05 Atrial premature complex(es) now present Fusion complex(es) now present RSR' in V1 or V2 now present Myocardial infarct finding now present Electronically Signed On 07-16-21 08:04:37 STOCK LETTERER by John Marie
[2021-07-16] MEDS ORDERED: ARFORMOTEROL TARTRATE 15 MCG/2 ML VIAL.NEB ONE ×2 (08:22→19:29)
[2021-07-16] MEDS: ARFORMOTEROL TARTRATE 15 MCG/2 ML VIAL.NEB NEB SCH ×2 (08:24→19:30)
[2021-07-16] MEDS ORDERED: THIAMINE 200 MG/2 ML INJ ONE (08:49)
[2021-07-16] MEDS ORDERED: lisinopriL 10 MG TAB ONE (08:49)
[2021-07-16] MEDS ORDERED: AMLODIPINE 10 MG TAB ONE (08:49)
[2021-07-16] MEDS ORDERED: TAMSULOSIN 0.4 MG SR CAP ONE (08:49)
[2021-07-16] MEDS ORDERED: METHYLPREDNISOLONE 40 MG INJ ONE (08:49)
[2021-07-16] MEDS ORDERED: NICOTINE 21 MG/PAT TD ONE (08:49)
[2021-07-16] MEDS ORDERED: ENOXAPARIN 40 MG/0.4 ML SQ ONE (08:50)
[2021-07-16] MEDS ORDERED: lisinopriL 20 MG TAB ONE (08:53)
[2021-07-16] MEDS: NICOTINE 21 MG/PAT TD SCH (08:54)
[2021-07-16] MEDS: THIAMINE 200 MG/2 ML INJ IVP SCH (08:55)
[2021-07-16] MEDS: FOLIC ACID 1 MG in NA CHLORIDE 0.9% 50 ML IV SCH (08:55)
[2021-07-16] MEDS: TAMSULOSIN 0.4 MG SR CAP PO SCH (08:55)
[2021-07-16] MEDS: AMLODIPINE 10 MG TAB PO SCH (08:56)
[2021-07-16] MEDS: METHYLPREDNISOLONE 40 MG INJ IV SCH (08:56)
[2021-07-16] MEDS: lisinopriL 20 MG TAB PO SCH (08:56)
[2021-07-16] MEDS: ENOXAPARIN 40 MG/0.4 ML SQ SCH (08:57)
[2021-07-16] MEDS: DULERA 200/5 (MOMETASONE/FORMOTEROL) INHALER IH SCH ×2 (08:59→20:47)
[2021-07-16] MEDS: PROPRANOLOL HCL 10 MG TAB PO SCH ×2 (09:05→20:47)
--- NOTE | 2021-07-16 15:00 | P.PN ---
Date of Service: 07/16/21 Subjective: Patient alert and oriented this morning, requesting for the BiPAP to be taken off. States he is feeling better, more like his usual self Nursing staff report patient has been pulling at BiPAP mask and pulse oximeter overnight. Without confusion, he knows what he is doing, just does not want them on Denies pain, no nausea/vomiting, no new complaints ROS: 10 point ROS otherwise negative Physical Exam General: AAOx3, NAD HEENT: Mucous membr. Dry, BIPAP mask in place Respiratory: Bilateral expiratory wheeze, on BiPAP, mildly labored respirations Cardiovascular: Regular rate/rhythm, trace edema bilaterally in lower extremities Gastrointestinal: soft, nondistended, nontender Musculoskeletal: No swelling, No tenderness Integumentary: No rashes Problem List Acute hypoxemic respiratory failure with hypercarbia, secondary to COPD exacerbation and diastolic CHF exacerbation Acute on chronic COPD Acute on chronic diastolic CHF Hyponatremia History of alcohol abuse, with withdrawal symptoms Hypertension Nephrology is following for hyponatremia treatment. Tolvaptan ordered yesterday Patient was initially weaned off BiPAP, however he became more lethargic, and ABG was consistent with hypercarbia. Patient significant improvement after being on BiPAP Pulmonology consulted, will discuss further today. Suspect patient may be able to be transitioned to nasal cannula Continue treatment for COPD exacerbation: IV steroids, bronchodilators Chest x-ray shows possible vascular congestion.. Patient given a dose of IV Lasix in the ED. Lasix on hold due to hyponatremia. Continue CIWA for alcohol withdrawal. Discontinue scheduled Ativan on 07/15, continue with PRN Dispo: continue ICU level of care, possibly downgraded in the next 24 hours. Anticipate DC home in 2-3 days Time Spent Managing Pts Care (In Minutes): 35
[2021-07-16] MEDS ORDERED: LORazepam 2 MG/ML VIAL IV SCH (18:00)
[2021-07-16] MEDS: predniSONE 20 MG TAB PO SCH (20:47)
[2021-07-17] MEDS: IPRATROPIUM BROM 0.5MG/2.5ML NEB SCH ×4 (01:15→20:05)
[2021-07-17 06:19] LABS: Absolute Lymphocytes (CBC) 1.5 K/uL (0.7-4.9); Basophils % 0.3 % (0-1.3); Hematocrit 47.7 % (39.6-49.0); Lymphocytes % 18.4 % (15.3-44.8); MPV 6.9 fL (7.6-11.3); RBC Red Blood Cell Count 4.65 M/uL (4.33-5.43)
[2021-07-17 06:40] LABS: Albumin 3.3 g/dL (3.4-5.0); Bilirubin Total 0.4 mg/dL (0.2-1.0); Magnesium 2.5 mg/dL (1.8-2.4); Phosphorus 3.8 mg/dL (2.5-4.9); Potassium 4.2 mmol/L (3.5-5.1); Protein, Total 6.4 g/dL (6.4-8.2)
--- NOTE | 2021-07-17 06:41 | P.PN ---
Subjective Date of Service: 07/17/21 Primary Care Provider: Dr. Leal Chief Complaint: Hyponatremia, COPD exacerbation Subjective: No new changes Physical Examination - Vital Signs Temperature: 97.3 F Blood Pressure: 138/76 Pulse: 72 Respirations: 18 Pulse Ox (%): 99 - Physical Exam General: In no apparent distress HEENT: Atraumatic, Normocephalic Neck: Supple, JVD not distended Respiratory: Clear to auscultation bilaterally Cardiovascular: No rubs, No murmurs Gastrointestinal: Soft and benign, Non-distended Musculoskeletal: No clubbing Integumentary: No warmth Neurological: Normal speech, Normal tone Lymphatics: No axilla or inguinal lymphadenopathy Urinary: Other (No bladder distention) External genitalia: Deferred Rectal: Deferred Assessment And Plan - Plan 1. Hyponatremia 2/2 high ADH state. Sodium level improved to 133. Advised on maintainging adeq po solid food intake tid. No more fluid restriction. Plan to remove villa catheter tomorrow 2. Hyperkalemia. Improved. Acidosis correction via bipap, shld improve serum K level. Monitor. 3. Respiratory acidosis + metabolic acidosis. O2 support prn. Respi mngt per other services. F/u repeat ABG. 4. Acute respi failure 2/2 COPD exacerbation + diastolic CHF. Aggravated by ativan use. Respi support per other services. 5. Htn. Cont current BP med regimen. 6. Alcohol withdrawal. Mngt per primary team. 7. Debility. OOB w/ PT/OT
--- NOTE | 2021-07-17 06:44 | P.PN ---
Date of Service: 07/17/21 Subjective: Transferred out of ICU yesterday to telemetry No acute events Feels as though he is breathing better, labs are improving No new complaints Overnight does not like wearing BiPAP mask, and will remove it at times ROS: 10 point ROS otherwise negative Physical Exam General: AAOx3, NAD HEENT: Mucous membr. Dry, normal conjunctiva Respiratory: Bilateral expiratory wheeze, on 2 L nasal cannula, mildly labored respirations Cardiovascular: Regular rate/rhythm, trace edema bilaterally in lower extremities Gastrointestinal: soft, nondistended, nontender Musculoskeletal: No swelling, No tenderness Integumentary: No rashes Problem List Acute hypoxemic respiratory failure with hypercarbia, secondary to COPD exacerbation and diastolic CHF exacerbation Acute on chronic COPD Acute on chronic diastolic CHF Hyponatremia History of alcohol abuse, with withdrawal symptoms Hypertension Nephrology is following for hyponatremia treatment. Tolvaptan given on 07/15 Patient was initially weaned off BiPAP, however he became more lethargic, and ABG was consistent with hypercarbia. Patient significant improvement after being on BiPAP Unfortunately patient does not find a BiPAP mask comfortable and frequently takes it off. Pulmonology consulted Patient transitioned successfully to nasal cannula yesterday, BiPAP overnight with frequently pulling off of the mask. Suspect patient has some sleep apnea undiagnosed. Would likely benefit from noninvasive ventilator at home Discussed with pulmonology, will obtain room air ABG to evaluate if needs/qualifies for NIV Continue treatment for COPD exacerbation: steroids, bronchodilators Chest x-ray shows possible vascular congestion.. Patient given a dose of IV Lasix in the ED. Lasix on hold due to hyponatremia. Continue CIWA for alcohol withdrawal. Discontinued scheduled Ativan on 07/15, continue with PRN Dispo: Downgraded to medical floor on 07/16, anticipate will be ready for discharge home in the next 24-48 hours. The need to evaluate if he qualifie s/needs will need to be set up for a noninvasive ventilator Time Spent Managing Pts Care (In Minutes): 35
--- NOTE | 2021-07-17 07:13 | RAD REPORT ---
EXAM DESCRIPTION: Kira Single View07/17/2021 6:43 am CLINICAL HISTORY: Hypoxia COMPARISON: July 15, 2021 FINDINGS: A few areas of subsegmental atelectasis within the lung bases. There may be a minimal inte rstitial pulmonary edema present Upper lobes appear clear. Heart is borderline enlarged
[2021-07-17] MEDS: ARFORMOTEROL TARTRATE 15 MCG/2 ML VIAL.NEB NEB SCH ×2 (08:05→20:05)
[2021-07-17] MEDS: lisinopriL 20 MG TAB PO SCH (09:00)
[2021-07-17] MEDS: PROPRANOLOL HCL 10 MG TAB PO SCH ×2 (09:00→21:00)
[2021-07-17] MEDS: AMLODIPINE 10 MG TAB PO SCH (09:00)
[2021-07-17] MEDS: predniSONE 20 MG TAB PO SCH ×2 (09:15→21:01)
[2021-07-17] MEDS: FOLIC ACID 1 MG in NA CHLORIDE 0.9% 50 ML IV SCH (09:15)
[2021-07-17] MEDS: TAMSULOSIN 0.4 MG SR CAP PO SCH (09:15)
[2021-07-17] MEDS: NICOTINE 21 MG/PAT TD SCH (09:16)
[2021-07-17] MEDS: ENOXAPARIN 40 MG/0.4 ML SQ SCH (09:18)
[2021-07-17] MEDS: THIAMINE 200 MG/2 ML INJ IVP SCH (10:17)
[2021-07-17] MEDS ORDERED: MORPHINE 2 MG/ML SYR IV PRN (19:37)
[2021-07-18] MEDS: IPRATROPIUM BROM 0.5MG/2.5ML NEB SCH ×3 (02:05→13:50)
[2021-07-18 05:01] LABS: ALT/SGPT 37 U/L (12-78); AST/SGOT 16 U/L (15-37); Albumin 3.1 g/dL (3.4-5.0); Alkaline Phosphatase 46 U/L (45-117); BUN Blood Urea Nitrogen 18 mg/dL (7-18); Bicarbonate 40 mmol/L (21-32); Bilirubin Total 0.3 mg/dL (0.2-1.0); Glucose Level 119 mg/dL (74-106); Magnesium 2.2 mg/dL (1.8-2.4); Phosphorus 3.1 mg/dL (2.5-4.9); Potassium 4.8 mmol/L (3.5-5.1); Protein, Total 5.7 g/dL (6.4-8.2); Sodium Level 134 mmol/L (136-145)
--- NOTE | 2021-07-18 06:04 | P.PN ---
Subjective Date of Service: 07/18/21 Primary Care Provider: Dr. Leal Chief Complaint: Hyponatremia, COPD exacerbation Subjective: Other (Reports no SOB) Physical Examination - Vital Signs Temperature: 97.8 F Blood Pressure: 136/69 Pulse: 69 Respirations: 18 Pulse Ox (%): 96 - Physical Exam General: Other (Appears as his stated age) HEENT: Atraumatic, Normocephalic Neck: Supple, JVD not distended Respiratory: Other (Symmetric chest expansion) Cardiovascular: No rubs, No murmurs Gastrointestinal: Soft and benign, Non-distended Musculoskeletal: No clubbing Integumentary: No warmth Neurological: Normal speech, Normal tone Lymphatics: No axilla or inguinal lymphadenopathy Urinary: Other (No bladder distention) External genitalia: Deferred Rectal: Deferred Assessment And Plan - Plan 1. Hyponatremia 2/2 high ADH state. Sodium level improved to 134. Advised on maintainging adeq po solid food intake tid. No fluid restriction. Remove villa catheter today. 2. Hyperkalemia. Improved. Acidosis correction via bipap, shld improve serum K level. Monitor. 3. Respiratory acidosis + metabolic acidosis. O2 support prn. Respi mngt per other services. F/u repeat ABG. 4. Acute respi failure 2/2 COPD exacerbation + diastolic CHF. Aggravated by ativan use. Respi support per other services. 5. Htn. Cont current BP med regimen. 6. Alcohol withdrawal. Mngt per primary team. 7. Debility. OOB w/ PT/OT
--- NOTE | 2021-07-18 06:36 | P.PN ---
Date of Service: 07/18/21 Subjective: no acute events feels better. breathing more comfortably, on 2L NC BIPAP overnight ABG on room air done yesterday didnt ambulate further after yesterday morning - was feeling unsteady ROS: 10 point ROS otherwise negative Physical Exam General: AAOx3, NAD HEENT: Mucous membr. Dry, normal conjunctiva Respiratory: Bilateral expiratory wheeze, on 2 L nasal cannula, non labored respirations Cardiovascular: Regular rate/rhythm, trace edema bilaterally in lower extremities Gastrointestinal: soft, nondistended, nontender Musculoskeletal: No swelling, No tenderness Integumentary: No rashes Problem List Acute hypoxemic respiratory failure with hypercarbia, secondary to COPD exacerbation and diastolic CHF exacerbation Acute on chronic COPD Acute on chronic diastolic CHF Hyponatremia History of alcohol abuse, with withdrawal symptoms Hypertension Nephrology is following for hyponatremia treatment. Tolvaptan given on 07/15 Patient was initially weaned off BiPAP, however he became more lethargic, and ABG was consistent with hypercarbia. Patient significant improvement after being on BiPAP Unfortunately patient does not find a BiPAP mask comfortable and frequently takes it off. did better last night Pulmonology consulted Patient transitioned successfully to nasal cannula during day on 07/16. BiPAP overnight with frequently pulling off of the mask. Suspect patient has some sleep apnea undiagnosed. Would likely benefit from noninvasive ventilator at home Discussed with pulmonology, awaiting results of room air ABG to evaluate if needs/qualifies for NIV Continue treatment for COPD exacerbation: steroids, bronchodilators Chest x-ray shows possible vascular congestion.. Patient given a dose of IV Lasix in the ED. Lasix on hold due to hyponatremia. Continue CIWA for alcohol withdrawal. Discontinued scheduled Ativan on 07/15, continue with PRN dc villa catheter today PT ordered - patient reported some unsteadiness yesterday. Hasnt ambulated much since admission, and did have some BP measurements on lower end which may be contributing. will check orthostatics Dispo: Downgraded to medical floor on 07/16, anticipate will be ready for discharge home in the next 24-48 hours. The need to evaluate if he qualifies/needs will need to be set up for a noninvasive ventilator Time Spent Managing Pts Care (In Minutes): 35
[2021-07-18] MEDS: ALBUTEROL 2.5 MG/3 ML NEB SOL NEB PRN ×2 (07:35→13:50)
[2021-07-18] MEDS: ARFORMOTEROL TARTRATE 15 MCG/2 ML VIAL.NEB NEB SCH (07:35)
[2021-07-18] MEDS: PROPRANOLOL HCL 10 MG TAB PO SCH (09:00)
[2021-07-18] MEDS ORDERED: THIAMINE HCL 100 MG TABLET PO SCH (09:00)
[2021-07-18] MEDS: AMLODIPINE 10 MG TAB PO SCH (09:00)
[2021-07-18] MEDS: lisinopriL 20 MG TAB PO SCH (09:00)
[2021-07-18] MEDS ORDERED: FAMOTIDINE 20 MG TAB PO SCH (09:00)
[2021-07-18] MEDS ORDERED: FOLIC ACID 1 MG TABLET PO SCH (09:00)
[2021-07-18] MEDS: TAMSULOSIN 0.4 MG SR CAP PO SCH (09:13)
[2021-07-18] MEDS: predniSONE 20 MG TAB PO SCH (09:14)
[2021-07-18] MEDS: NICOTINE 21 MG/PAT TD SCH (09:14)
[2021-07-18] MEDS: ENOXAPARIN 40 MG/0.4 ML SQ SCH (09:16)
--- NOTE | 2021-07-18 10:29 | P.PN ---
Subjective Date of Service: 07/18/21 Primary Care Provider: Dr. Leal Chief Complaint: COPD exacerbation Patient is doing well his patient is doing well he is alert oriented responsive cooperative now wants to go home refusing to wear CPAP or BiPAP Review of Systems General: Weakness Respiratory: Shortness of Breath Physical Examination - Vital Signs Temperature: 97.6 F Blood Pressure: 117/63 Pulse: 87 Respirations: 20 Pulse Ox (%): 100 - Physical Exam General: Alert, Oriented x3 Respiratory: Expiratory wheezes Cardiovascular: No edema, Regular rate/rhythm Assessment & Plan - Problems (Diagnosis) (1) Hyponatremia Current Visit: No Status: Acute Plan: Resolved (2) COPD exacerbation Current Visit: No Status: Acute Plan: Patient is chronic respiratory patient has chronic respiratory failure he is doing much better plan to discharge home on low-dose prednisone 10 mg twice a day he has Trelegy and albuterol at home follow-up with me in 2 weeks refusing BiPAP
[2021-07-18 15:06] VITALS: O2SAT 95
--- NOTE | 2021-07-18 19:40 | P.DS ---
Admission Date: 07/12/21 Discharge Date: 07/18/21 Primary Care Provider: Dr. Leal Disposition: ROUTINE DISCHARGE Discharge Condition: FAIR Reason for Admission: COPD exacerbation Consultations: Pulmonology - Dr. Holt Nephrology - Dr. Payan Procedures: CXR (07/12): Mild bilateral pulmonary opacities are present most compatible with pulmonary edema and viral infection. The heart is size upper limit of normal in size. No displaced fractures. CXR (07/15): FINDINGS: Lung volumes are low. Interstitial opacification is present similar t o comparison. No dense mass or consolidation. Low lung volumes accentuate lung markings. Left costophrenic angle blunting is more likely technical than any significant pleural fluid component. Heart and vasculature are normal. No pneumothorax. No acute bony abnormality seen. No acute aortic findings suspected. IMPRESSION: Limited shallow inspiration film showing lung base atelectasis and a prominent interstitial pattern matching comparison. No significant change from comparison. CXR (07/17): FINDINGS: A few areas of subsegmental atelectasis within the lung bases. There may be a minimal interstitial pulmonary edema present Upper lobes appear clear. Heart is borderline enlarged Echo (07/14): normal LVEF: 50-65%. normal wall motion Problem List Acute Hyponatremia secondary to high ADH state Acute hypoxemic respiratory failure with hypercarbia, secondary to COPD exacerbation and diastolic CHF exacerbation Acute on chronic COPD Acute on chronic diastolic CHF History of alcohol abuse, with withdrawal symptoms Hypertension Brief History of Present Illness: Admitted for hyponatremia, acute on chronic hypoxic hypercapnic respiratory failure 66yo M, PMH: COPD, BPH, Alchol abuse, prior hyponatremia. Presented to ED with progressive SOB with sudden worsening over the last 24hrs. Patient does admit to smoking a pack per day and also drinking approximately half a gallon of wine per day. Patient was found to be hypoxic on room air with saturations in the high 8 0s still wheezing after multiple rounds of nebulizer treatments. Further evaluation revealed labs significant for sodium 115 potassium 5 chloride 75 CO2 32 BNP 507 ABG pH 7.33 PCO2 60.9 PO2 77.5 on oxygen patient was placed on BiPAP nephrology was consulted who recommended a dose of Lasix IV followed by fluid restriction with repeat labs in 6 hours. Hospital Course: Patient with significant hyponatremia, and required treatment with Lasix and eventual Samsca per nephrology recommendations. He had gradual improvement/correction of his hyponatremia. He initially had alcohol withdrawal symptoms and was given benzodiazepines. Possibility of the benzodiazepines/alcohol withdrawal, likely undiagnosed ELAINE, and severe chronic COPD led to patient being significantly hypercarbic. This improved significantly with the use of BiPAP. Pulmonology was consulted, patient continued with improvement. He is undergoing evaluation for noninvasive ventilator at home, but stated he would not use it and did not want 1. Pulmonology recommended that he follow-up in their office, to consider possibility of using a noninvasive ventilator in the near future. Patient did not ambulate much early in hospitalization secondary to hypoxia, withdrawal, medication. Once improved, he did report some unsteadiness in his gait. PT was consulted and he was able to walk ~40 feet with his walker. PT recommended some continued home PT if agreeable. Discharged home to resume medications as previously prescribed, as well as a taper with prednisone. Strongly advised to abstain from alcohol and smoking. Patient did not want any smoking cessation treatment. Vital Signs/Physical Exam: Physical Exam General: AAOx3, NAD HEENT: normal conjunctiva, sclera anicteric Respiratory: mild b/l expiratory wheeze. nonlabored respirations on 3L NC Cardiovascular: Regular rate/rhythm, trace edema bilaterally in lower extremities Gastrointestinal: soft, nondistended, nontender Musculoskeletal: No swelling, No tenderness Integumentary: No rashes Temp Pulse Resp BP Pulse Ox 98.2 F 73 20 136/67 100 07/18/21 16:00 07/18/21 16:00 07/18/21 16:00 07/18/21 12:00 07/18/21 16:00 Laboratory Data at Discharge: WBC 8.20 K/uL (4.3-10.9) D 07/17/21 06:02 Hgb 15.9 g/dL (13.6-17.9) 07/17/21 06:02 Hct 47.7 % (39.6-49.0) 07/17/21 06:02 Plt Count 197 K/uL (152-406) 07/17/21 06:02 PT 12.0 SECONDS (9.5-12.5) 07/12/21 16:00 INR 1.04 07/12/21 16:00 Sodium 134 mmol/L (136-145) L 07/18/21 04:17 Potassium 4.8 mmol/L (3.5-5.1) 07/18/21 04:17 BUN 18 mg/dL (7-18) 07/18/21 04:17 Creatinine 0.78 mg/dL (0.55-1.3) 07/18/21 04:17 Glucose 119 mg/dL (74-106) H 07/18/21 04:17 Uric Acid 3.5 mg/dL (3.5-7.2) 07/12/21 19:00 Phosphorus Cancelled 07/18/21 05:00 Magnesium Cancelled 07/18/21 05:00 Total Bilirubin 0.3 mg/dL (0.2-1.0) 07/18/21 04:17 AST 16 U/L (15-37) 07/18/21 04:17 ALT 37 U/L (12-78) 07/18/21 04:17 Alkaline Phosphatase 46 U/L (45-117) 07/18/21 04:17 Troponin I < 0.02 ng/mL (0.0-0.045) 07/17/21 19:58 Triglycerides 50 mg/dL (<150) 07/13/21 04:11 Cholesterol 135 mg/dL (<200) 07/13/21 04:11 HDL Cholesterol 70 mg/dL (40-60) H 07/13/21 04:11 Cholesterol/HDL Ratio 1.93 07/13/21 04:11 Home Medications: Amlodipine [Norvasc*] 10 mg PO DAILY 10/28/20 Fluticasone/Umeclidin/Vilanter [Trelegy Ellipta 100-62.5-25] 1 each IH DAILY 10/28/20 Arformoterol Tartrate [Brovana] 15 mcg NEB BIDRESP vial.neb 11/04/20 Ipratropium Neb [Atrovent*] 0.5 mg NEB Q6HP PRN amp 11/04/20 Nicotine [Nicoderm*] 21 mg TD DAILY patch.td24 11/04/20 Propranolol [Inderal*] 10 mg PO BID tab 11/04/20 Tamsulosin [Flomax*] 0.4 mg PO DAILY cap 11/04/20 Thiamine HCl [Vitamin B-1*] 100 mg PO DAILY tablet 11/04/20 lisinopriL [Prinivil*] 20 mg PO DAILY tab 11/04/20 Arformoterol Tartrate [Brovana] 15 mcg NEB BIDRESP vial.neb 11/13/20 predniSONE [Deltasone*] 10 mg PO SEECOM 14 Days #21 tab 07/18/21 New Medications: predniSONE [Deltasone*] 10 mg PO SEECOM 14 Days #21 tab Physician Discharge Instructions: Found to have low sodium and COPD exacerbation. Improved with correction of your sodium by removing some fluid. Breathing further improved with steroids, inhalers, and using BIPAP. You are discharged home to continue prednisone 10 mg twice daily for 1 week then 10 mg daily. Follow-up with Dr. Holt in 2 weeks Your CO2 (carbon dioxide) was noted to be significantly high and improved with B IPAP. This was due to your COPD and possibly undiagnosed sleep apnea. Please continue to consider using BIPAP if needed at home. Follow up with Dr. Holt. As discussed to lower your risk of further episodes of this, strongly recommend to stop drinking alcohol and stop smoking. Diet: AHA Activity: Ad kate Followup: NONE,NONE [Primary Care Provider] - Time spent managing pt's care (in minutes): 45
[2021-07-18 23:20] VITALS: BP 136/69; TEMP 97.8
== END 2021-07-18 16:06 | disposition home or self-care (01) | DRG 640 ==
LOC: ER 15:42 → ERHOLD 19:19 → 2ND 07-17 00:59
PROVIDERS: ADMIT Internal Medicine; ATTEND Internal Medicine
PROC: 5A09457 Assistance with Respiratory Ventilation, 24-96 Consecutive Hours, Continuous Positive Airway Pressure (ICD-10-PCS; principal; 2021-07-12)
DX: E87.1 Hypo-osmolality and hyponatremia (principal); J96.22 Acute and chronic respiratory failure with hypercapnia; J96.21 Acute and chronic respiratory failure with hypoxia; I50.33 Acute on chronic diastolic (congestive) heart failure; J44.1 Chronic obstructive pulmonary disease with (acute) exacerbation; F10.139 Alcohol abuse with withdrawal, unspecified; E87.4 Mixed disorder of acid-base balance; E83.42 Hypomagnesemia; I11.0 Hypertensive heart disease with heart failure; E87.5 Hyperkalemia; G47.30 Sleep apnea, unspecified; F17.210 Nicotine dependence, cigarettes, uncomplicated; Z20.822 Contact with and (suspected) exposure to COVID-19
CPT/HCPCS: 0240U; 36415; 51702; 71045; 80048; 80053; 80061; 80076; 81003; 81015; 82533; 82805; 83735; 83880; 83930; 83935; 84100; 84132; 84300; 84443; 84484; 84550; 85025; 85610; 87086; 87088; 93005; 93306; 94640; 94660; 94760; 97116; 97161; 97530; 99285; J0295; J1650; J1940; J2597; J2920; J2930; J3411; J3475; J7030; J7512; J7605; J7606; J8499; P9047

== ENCOUNTER 2021-11-11 07:52 | Inpatient (IN) | payer BC ==
[2021-11-11] MEDS ORDERED: LEVALBUTEROL 1.25 MG/3 ML NEB ONE (08:17)
[2021-11-11] MEDS ORDERED: MAGNESIUM SULFATE 1 gm IVPB 1 GM/100 ML BAG IV ONE (08:17)
[2021-11-11 08:39] LABS: Absolute Lymphocytes (CBC) 0.6 K/uL (0.7-4.9); Hematocrit 46.9 % (39.6-49.0); Lymphocytes % 5.6 % (15.3-44.8); MPV 6.9 fL (7.6-11.3); RBC Red Blood Cell Count 4.81 M/uL (4.33-5.43)
[2021-11-11 08:42] LABS: Protime INR 1.08
--- NOTE | 2021-11-11 08:46 | RAD REPORT ---
EXAM DESCRIPTION: RAD - Chest Single View - 11/11/2021 8:13 am CLINICAL HISTORY: DYSPNEA COMPARISON: Portable 07/17/2021 TECHNIQUE: AP portable chest image was obtained 11/11/2021 8:13 am . FINDINGS: Lung volumes are low. Bibasilar opacification is present similar to the prior study. This is more likely scarring and atelectasis rather than infiltrate. No dense consolidation suspected. Sig nificant failure or volume overload are not suspected. Heart and vasculature are normal. No measurable pleural effusion and no pneumothorax. No acute bony abnormality seen. No acute aortic findings suspected. IMPRESSION: Bibasilar lung opacification favored to be scarring or atelectasis rather than infiltrat e. No failure or volume overload suspected.
[2021-11-11 09:12] LABS: Blood Gas Oxyhemoglobin 90.6 % (94-97); Blood O2 Saturation 97.4 % (92-98.5)
[2021-11-11 09:22] LABS: SARS-COV-2 RT PCR NEGATIVE (NEGATIVE)
[2021-11-11 11:16] LABS: BUN Blood Urea Nitrogen 7 mg/dL (7-18); Bicarbonate 26 mmol/L (21-32); Glucose Level 108 mg/dL (74-106); NT PRO-BNP 520 pg/mL (<125); Potassium 4.9 mmol/L (3.5-5.1)
[2021-11-11 11:28] LABS: Sodium Level 114 mmol/L (136-145)
--- NOTE | 2021-11-11 11:31 | ER ---
Nurse's Notes [facility] Name: Randolph Mckeon Age: 66 yrs Sex: Male : 1955 Arrival Date: 11/11/2021 Time: 07:55 Bed 16 Private MD: Diagnosis: COPD/ Chronic obstructive pulmonary disease with (acute) exacerbation;Hypo-osmolality and hyponatremia Presentation: 11/11 07:56 Chief complaint: Patient states: pt presented ED with shortness of breath x 4days. [place] Coronavirus screen: Vaccine status: Patient reports being unvaccinated. Ebola Screen: Patient denies travel to an Ebola-affected area in the 21 days before illness onset. Initial Sepsis Screen: Does the patient meet any 2 criteria? RR > 20 per min. HR > 90 bpm. Yes Does the patient have a suspected source of infection? No. Patient's initial sepsis screen is negative. Risk Assessment: Do you want to hurt yourself or someone else? Patient reports no desire to harm self or others. Onset of symptoms was November 11, 2021. 07:56 Method Of Arrival: EMS: [facility] 07:56 Acuity: YANNICK 2 [place] Historical: - Allergies: 07:58 No Known Allergies; [place] - Home Meds: 07:58 Albuterol Inhl [Active]; Trilogy INH [Active]; [place] - PMHx: 07:58 COPD; Hypertension; [place] - PSHx: 07:58 None; [place]burn - Immunization history:: Adult Immunizations up to date. - Social history:: Smoking status: Patient reports the use of cigarette tobacco products, smokes one-half pack cigarettes per day. - Family history:: not pertinent. - Hospitalizations: : The patient was recently seen at [facility]. Screenin:09 Abuse screen: Denies threats or abuse. Denies injuries from another. Nutritional ic1 screening: No deficits noted. Tuberculosis screening: No symptoms or risk factors identified. Fall Risk No fall in past 12 months (0 pts). Secondary diagnosis (15 points) IV access (20 points). Ambulatory Aid- None/Bed Rest/Nurse Assist (0 pts). Gait- Weak (10 pts.). Mental Status- Oriented to own ability (0 pts). Total Pedro Fall Scale indicates Low Risk Score (25-44 pts). Side Rails Up X 2 Placed close to Nursing Station Frequent Obs/Assesments occuring Family Present and informed to notify staff if they need to leave bedside. Assessment: 08:09 General: Appears distressed, uncomfortable, Behavior is calm, cooperative, anxious. ic1 Pain: Denies pain. Neuro: Level of Consciousness is awake, alert, Oriented to person, place, situation. Cardiovascular: Denies chest pain, Rhythm is sinus tachycardia. Respiratory: Reports shortness of breath Airway is patent Trachea midline Respiratory effort is labored, Respiratory pattern is regular. GI: No deficits noted. : No deficits noted. EENT: No deficits noted. Derm: No deficits noted. Musculoskeletal: No deficits noted. 08:55 Reassessment: Patient states symptoms have not improved. Pt breathing unchanged from ic1 prior assessment. Pt appears to be posturing bue and ble. MD Morales notified and RT paged to place pt on bipap. Pt placed on non-rebreather until bipap is placed. O2 sats of 95%. . 09:06 Reassessment: Pt placed on bipap by RT. LOC decreased from arrival. RT at bedside ic1 obtaining ABG. 09:56 Reassessment: Pt clothing removed and placed in gown. Pt toleratd cleaning. Remains on ic1 bipap. MD at bedside re-evaluating. 19:30 General: Appears distressed, uncomfortable. Neuro: Level of Consciousness is confused, ke1 Oriented to none eyes closed , unable to speeak. Cardiovascular: Heart tones S1 S2 Capillary refill < 3 seconds. Respiratory: Patient placed on BiPAP: FiO2%: 40. GI: Abdomen is obese. : Garza in place. Derm: Skin redness groin area. Musculoskeletal: Range of motion: intact in all extremities. Vital Signs: 07:56 BP 199 / 98; Pulse 100; Resp 24; Pulse Ox 100% on 4 lpm NC; Weight 97.52 kg; Height 5 blackburn ft. 11 in. (180.34 cm); 08:09 BP 194 / 109; Pulse 96; Resp 22; Pulse Ox 98% on 4 lpm NC; ic1 08:45 BP 178 / 94; Pulse 96; Resp 26; Pulse Ox 95% on 4 lpm NC; ic1 09:22 BP 137 / 90; Pulse 89; Resp 20; Pulse Ox 100% on BiPAP; ic1 10:21 BP 177 / 73; Pulse 94; Resp 20; Temp 97.8(T); Pulse Ox 90% ; ic1 11:14 BP 166 / 84; Pulse 87; Resp 20; Pulse Ox 100% on BiPAP; ic1 07:56 Body Mass Index 29.99 (97.52 kg, 180.34 cm) ED Course: 07:55 Patient arrived in ED. ic1 07:56 Severo Nielsen MD is Attending Physician. rn 07:58 Triage completed. [place] 08:08 Sonali Verdin, SAMEER is Primary Nurse. ic1 08:09 No provider procedures requiring assistance completed. Inserted saline lock: 20 gauge ic1 in left hand, using aseptic technique. Blood collected. 08:09 Initial lab(s) drawn, by ED staff, sent to lab. EKG done, by ED staff, reviewed by [facility] Severo Nielsen MD COVID swab sent to lab. Flu and/or RSV swab sent to lab. 08:09 Patient has correct armband on for positive identification. Bed in low position. Call mh5 light in reach. Side rails up X2. Warm blanket given. monitor technician on. Pulse ox on. NIBP on. 08:11 BMP Sent. ic1 08:11 Basic Metabolic Panel Sent. ic1 08:13 XRAY CXR (1 view) In Process Unspecified. EDMS 08:22 Blood Culture Sent. ic1 08:22 Lactate Sent. ic1 09:55 Head of bed elevated. Turned to left side. Door closed. Lights dimmed. ic1 11:30 Juanita Giron MD is Hospitalizing Provider. rn 12:01 BIPAP Sent. ic1 20:19 Arm band placed on. ke1 20:20 Patient admitted, IV remains in place. ke1 Administered Medications: 08:21 Dru grams of (Magnesium Sulfate 1 grams, NS 0.9% 50 ml) Route: IVPB; Infused Over: ic1 1 hrs; Site: right hand; 08:22 Drug: Xopenex (levalbuterol) (3) 1.25 mg Route: Inhalation; ic1 12:01 Drug: NS 0.9% 1000 ml Route: IV; Rate: 75 ml/hr; Site: left hand; ic1 Outcome: 11:31 Decision to Hospitalize by Provider. rn 20:14 Admitted to ICU accompanied by nurse. ke1 20:18 Condition: stable ke1 20:18 Instructed on Patient unable to comprehend instructions 20:31 Patient left the ED. tw5 Signatures: Dispatcher [employer] EDSevero Moreira MD MD rn Martinez, Maria Mary Bhat tw5 Au-StagerAlysia RN RN ha Creggett, Iesha, RN RN ic1 Alva London RN RN ke1 Corrections: (The following items were deleted from the chart) 10:22 10:21 BP 177 / 73; Pulse 94bpm; Resp 20bpm; Pulse Ox 90%; ic1 ic1
--- NOTE | 2021-11-11 11:32 | EDPHYS ---
Physician Documentation [facility] Name: Randolph Mckeon Age: 66 yrs Sex: Male : 1955 Arrival Date: 11/11/2021 Time: 07:55 Bed 16 Private MD: ED Physician Severo Nielsen HPI: 11/11 08:04 This 66 yrs old Male presents to ER via EMS with complaints of dyspnea. rn 08:04 The patient has shortness of breath at rest, with light activity. Onset: The rn symptoms/episode began/occurred 4 day(s) ago. Duration: The symptoms are intermittent. The patient's shortness of breath is aggravated by coughing, exertion, light activity, is alleviated by inhaler, rest, application of supplemental oxygen. Associated signs and symptoms: Pertinent positives: non-productive cough, Pertinent negatives: fever, hemoptysis. Severity of symptoms: At their worst the symptoms were moderate in the emergency department the symptoms have improved. The patient has experienced similar episodes in the past. The patient has been recently seen by a physician:. Pt reports 4 days of sob, worse with exertion, improves for short period of time with albuterol, no fever, no hemoptysis. No chest pain. . Historical: - Allergies: 07:58 No Known Allergies; blackburn - Home Meds: 07:58 Albuterol Inhl [Active]; Trilogy INH [Active]; blackburn - PMHx: 07:58 COPD; Hypertension; blackburn - PSHx: 07:58 None; blackburn - Immunization history:: Adult Immunizations up to date. - Social history:: Smoking status: Patient reports the use of cigarette tobacco products, smokes one-half pack cigarettes per day. - Family history:: not pertinent. - Hospitalizations: : The patient was recently seen at [facility]. ROS: 08:04 Constitutional: Negative for fever, chills, and weight loss, Eyes: Negative for injury, rn pain, redness, and discharge, Neck: Negative for injury, pain, and swelling, Cardiovascular: Negative for chest pain, palpitations, + leg swelling Respiratory: + cough and sob Abdomen/GI: Negative for abdominal pain, nausea, vomiting, diarrhea, and constipation, Back: Negative for injury and pain, MS/Extremity: Negative for injury and deformity, Skin: Negative for injury, rash, and discoloration, Neuro: Negative for headache, numbness, tingling, and seizure. Exam: 08:04 Constitutional: Overweight male, flushed skin, mild tachypnea Head/Face: rn Normocephalic, atraumatic. Eyes: Periorbital areas with no swelling, redness, or edema. ENT: No stridor Cardiovascular: Regular rate and rhythm. No pulse deficits. Respiratory: + mild tachypnea with inspiratory and expiratory wheezing, no retractions. Abdomen/GI: soft, non-tender Skin: Warm, dry MS/ Extremity: Pulses equal, no cyanosis. Neurovascular intact. Full, normal range of motion. Equal circumference. 1+ edema bilateral lower ext Neuro: Awake and alert, GCS 15 Vital Signs: 07:56 BP 199 / 98; Pulse 100; Resp 24; Pulse Ox 100% on 4 lpm NC; Weight 97.52 kg; Height 5 blackburn ft. 11 in. (180.34 cm); 08:09 BP 194 / 109; Pulse 96; Resp 22; Pulse Ox 98% on 4 lpm NC; ic1 08:45 BP 178 / 94; Pulse 96; Resp 26; Pulse Ox 95% on 4 lpm NC; ic1 09:22 BP 137 / 90; Pulse 89; Resp 20; Pulse Ox 100% on BiPAP; ic1 10:21 BP 177 / 73; Pulse 94; Resp 20; Temp 97.8(T); Pulse Ox 90% ; ic1 11:14 BP 166 / 84; Pulse 87; Resp 20; Pulse Ox 100% on BiPAP; ic1 07:56 Body Mass Index 29.99 (97.52 kg, 180.34 cm) blackburn MDM: 07:56 Patient medically screened. rn 09:10 ED course: Called to bedside, patient with increased respiratory difficulty and rn cramping of upper extremities, is following commands, wheezing seems more severe and tachypneic. Placed on BIPAP and ABG ordered. . 10:49 ED course: Pt improving on BIPAP, much more alert and states feels better. . rn 11:29 Differential diagnosis: Anemia Anxiety Reaction Bronchitis Chronic Obstructive rn Pulmonary Disease Myocardial Infarction pneumonia, Pneumothorax pulmonary edema, reactive airway disease. Data reviewed: vital signs, nurses notes, lab test result(s), EKG, radiologic studies, plain films, and as a result, I will admit patient. Counseling: I had a detailed discussion with the patient and/or guardian regarding: the historical points, exam findings, and any diagnostic results supporting the discharge/admit diagnosis, lab results, radiology results, the need for further work-up and treatment in the hospital. Response to treatment: the patient's symptoms have markedly improved after treatment, and as a result, I will admit patient. 16:51 ED course: Notified by pharmacy that patient needs a more proximal IV for hypertonic rn saline that Dr. Payan ordered, RN placed 18g AC IV. Told her to check with Dr. Payan and pharmacy if ok to use. . 11/11 07:58 Order name: BMP rn 11/11 07:58 Order name: Blood Culture Adult (2) rn 11/11 07:58 Order name: CBC with Diff; Complete Time: 08:53 rn 11/11 07:58 Order name: NT PRO-BNP; Complete Time: 11:28 11/11 07:58 Order name: PT-INR; Complete Time: 08:53 rn 11/11 07:58 Order name: Ptt, Activated; Complete Time: 08:53 rn 11/11 07:58 Order name: Troponin High Sensitivity; Complete Time: 11:28 rn 11/11 07:58 Order name: COVID-19/FLU A+B (Document "Date of Onset" if Symptomatic); Complete Time: rn 09:35 11/11 07:58 Order name: Lactate; Complete Time: 10:48 rn 11/11 07:58 Order name: Basic Metabolic Panel; Complete Time: 11:28 EDRI 11/11 07:58 Order name: Blood Culture EDRI 11/11 08:58 Order name: ABG; Complete Time: 09:35 rn 11/11 13:02 Order name: NT PRO-BNP; Complete Time: 17:44 EDMS 11/11 13:02 Order name: Basic Metabolic Panel EDRI 11/11 07:58 Order name: XRAY CXR (1 view); Complete Time: 08:53 rn 11/11 13:02 Order name: Basic Metabolic Panel; Complete Time: 07:06 EDRI 11/11 13:02 Order name: Lipid Profile EDRI 11/11 13:02 Order name: Lipid Profile; Complete Time: 07:06 EDRI 11/11 13:03 Order name: CBC with Automated Diff EDRI 11/11 13:03 Order name: CBC with Automated Diff; Complete Time: 07:06 EDRI 11/11 13:03 Order name: Urinalysis [facility] 11/11 13:53 Order name: Hemoglobin A1c; Complete Time: 14:31 EDRI 11/11 14:38 Order name: ABG Arterial Blood Gas; Complete Time: 14:51 [facility] 11/11 14:49 Order name: Urine Drug Screen; Complete Time: 14:51 [facility] 11/11 16:19 Order name: Osmolality, Serum; Complete Time: 17:44 EDRI 11/11 16:23 Order name: Electrolytes; Complete Time: 17:44 EDRI 11/11 16:23 Order name: Uric Acid; Complete Time: 17:44 [facility] 11/11 16:23 Order name: Phosphorus; Complete Time: 17:44 [facility] 11/11 16:23 Order name: Albumin; Complete Time: 17:44 [facility] 11/11 16:23 Order name: Magnesium; Complete Time: 17:44 [facility] 11/11 07:58 Order name: EKG; Complete Time: 07:58 11/11 07:58 Order name: Cardiac monitoring; Complete Time: 08:08 rn 11/11 07:58 Order name: EKG - Nurse/Tech; Complete Time: 08:08 rn 11/11 07:58 Order name: IV Saline Lock; Complete Time: 08:11 rn 11/11 07:58 Order name: Labs collected and sent 11/11 07:58 Order name: O2 Per Protocol; Complete Time: 08:11 rn 11/11 07:58 Order name: O2 Sat Monitoring; Complete Time: 08:11 rn 11/11 08:16 Order name: Labs - recollect needed: recollect all labs; Complete Time: 08:26 11/11 08:58 Order name: BIPAP 11/11 12:59 Order name: CONS Physician Consult [facility] 11/11 13:03 Order name: Heart Healthy [facility] 11/11 15:32 Order name: Labs - recollect needed: recollect serum osmolality 11/11 20:30 Order name: CT; Complete Time: 07:06 EDMS Administered Medications: 08:21 Dru grams of (Magnesium Sulfate 1 grams, NS 0.9% 50 ml) Route: IVPB; Infused Over: ic1 1 hrs; Site: right hand; 08:22 Drug: Xopenex (levalbuterol) (3) 1.25 mg Route: Inhalation; ic1 12:01 Drug: NS 0.9% 1000 ml Route: IV; Rate: 75 ml/hr; Site: left hand; ic1 Disposition: 11:29 Critical Care:. rn Disposition Summary: 11/11/21 11:31 Hospitalization Ordered Hospitalization Status: Inpatient Admission rn Provider: Juanita Giron rn Condition: Stable rn Problem: an acute exacerbation rn Symptoms: have improved rn Bed/Room Type: Standard rn Location: Intensive Care Unit(11/11/21 19:50) cg Room Assignment: 5-(11/11/21 19:50) cg Diagnosis - COPD/ Chronic obstructive pulmonary disease with (acute) exacerbation rn - Hypo-osmolality and hyponatremia rn Forms: - Medication Reconciliation Form rn - SBAR form qa internship time excluding procedures: 11:29 Critical care time: Bedside Care: 35 minutes, Consultation: 5 minutes. Total time: 40 rn minutes Signatures: Dispatcher [employer] Jenny Jara Irene, RN RN iw Severo Nielsen MD MD rn Garcia, Cindy, RN RN cg CareyStageAlysia mckoy RN RN Sonali Grimaldo RN RN ic1 Corrections: (The following items were deleted from the chart) 14:37 11:31 Telemetry/MedSurg (Inpatient) rn iw 14:37 11:31 rn iw 19:50 14:37 BR ER HOLD iw cg 19:50 14:37 ERHOLD- cg
[2021-11-11] MEDS ORDERED: NA CHLORIDE 0.9% 1,000 ML ONE (11:59)
[2021-11-11] MEDS ORDERED: ACETAMINOPHEN 500 MG TAB PO PRN (12:58)
[2021-11-11] MEDS ORDERED: ONDANSETRON 4 MG/2 ML VIAL IV PRN (12:58)
[2021-11-11] MEDS ORDERED: ZOLPIDEM TARTRATE 5 MG TABLET PO PRN (12:58)
[2021-11-11] MEDS ORDERED: LABETALOL 20 MG/4ML SYRINGE IV PRN ×2 (13:05→15:24)
[2021-11-11] MEDS ORDERED: HYDROCODONE/APAP 5/325 MG TAB PO PRN (13:07)
[2021-11-11] MEDS ORDERED: GUAIFENESIN/DM 5 ML UCUP PO PRN (13:22)
--- NOTE | 2021-11-11 13:23 | P.HP ---
Certification for Inpatient With expected LOS: >2 Midnights Patient will require the following post-hospital care: None Practitioner: I am a practitioner with admitting privileges, knowledge of patient current condition, hospital course, and medical plan of care. Services: Services provided to patient in accordance with Admission requirements found in Title 42 Section 412.3 of the Code of Federal Regulations <Vern Preston - Last Filed: 11/11/21 16:00> Patient History Date of Service: 11/11/21 Reason for admission: SOB History of Present Illness: Patient is a 66-year-old male with a past medical history significant for COPD, hypertension, BPH, nicotine dependence, alcohol abuse who presents with complaint of shortness of breath has been ongoing for the past 4 days. Patient is currently confused and does not answer questions. Per medical record patient reported associated signs and symptoms of cough. Patient also indicated that he tried using his home medications but symptoms were not relieved appropriately. No other signs and symptoms were reported.. Symptoms are aggravated by exertion and relieved by nothing. Patient decided to present to the hospital due to worsening symptoms. 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 - Family History Family History: Reviewed- Non-Contributory - Social History Smoking Status: Current every day smoker Counseled patient to stop smoking for: more than 10 minutes Smoking therapy provided: Yes Patient receptive to therapy: No Alcohol use: Yes CD- Drugs: No Caffeine use: Yes <Vern Preston - Last Filed: 11/11/21 16:00> Date of Service: 11/12/21 <Juanita Giron - Last Filed: 11/13/21 08:14> Allergies No Known Allergies Allergy (Unverified 10/26/20 23:41) Home Medications: Amlodipine [Norvasc*] 10 mg PO DAILY 10/28/20 Fluticasone/Umeclidin/Vilanter [Trelegy Ellipta 100-62.5-25] 1 each IH DAILY 10/28/20 Arformoterol Tartrate [Brovana] 15 mcg NEB BIDRESP vial.neb 11/04/20 Ipratropium Neb [Atrovent*] 0.5 mg NEB Q6HP PRN amp 11/04/20 Nicotine [Nicoderm*] 21 mg TD DAILY patch.td24 11/04/20 Propranolol [Inderal*] 10 mg PO BID tab 11/04/20 Tamsulosin [Flomax*] 0.4 mg PO DAILY cap 11/04/20 Thiamine HCl [Vitamin B-1*] 100 mg PO DAILY tablet 11/04/20 lisinopriL [Prinivil*] 20 mg PO DAILY tab 11/04/20 Arformoterol Tartrate [Brovana] 15 mcg NEB BIDRESP vial.neb 11/13/20 predniSONE [Deltasone*] 10 mg PO SEECOM 14 Days #21 tab 07/18/21 Review of Systems is unable to be obtained <Vern Preston - Last Filed: 11/11/21 16:00> Physical Examination - Physical Exam General: Alert, Oriented x1 HEENT: PERRLA Neck: Supple Respiratory: Expiratory wheezes, Inspiratory wheezes Cardiovascular: Regular rate/rhythm, Edema Capillary refill: <2 Seconds Gastrointestinal: Normal bowel sounds Musculoskeletal: No clubbing, No tenderness Integumentary: Other (Scrotal excoriation ) Neurological: Normal strength at 5/5 x4 extr, Normal affect Lymphatics: No axilla or inguinal lymphadenopathy External genitalia: Other (Scrotal excoriation ) - Studies Laboratory Data (last 24 hrs) 11/11/21 10:30: Sodium 114 L*, Potassium 4.9, BUN 7, Creatinine 0.57, Glucose 108 H 11/11/21 08:27: PT 11.9, INR 1.08, APTT 37.1 H 11/11/21 08:27: WBC 11.50 H, Hgb 16.0, Hct 46.9, Plt Count 229 <Vern Preston - Last Filed: 11/11/21 16:00> - Studies Microbiology Data (last 24 hrs): 11/11/21 08:19 Blood - Blood Blood Culture Gram Stain - Final <Juanita Giron - Last Filed: 11/13/21 08:14> Assessment and Plan - Plan --Acute on chronic COPD exacerbation. Patient started on steroids, nebulizer treatment with albuterol and Atrovent. Continue BiPAP therapy. --Acute on chronic respiratory failure with hypoxia. Continue current treatment regimen. --Respiratory acidosis. Continue BiPAP therapy. --Hyponatremia. Likely secondary to alcohol abuse. Has a history of hyponatremia. Nephrology consulted. Will await further recommendation from industrial gas servicer.. --Acute encephalopathy. Patient alert and oriented x1. CT head pending. Continue supportive care. --Alcohol abuse. Patient placed on thiamine\multivitamin\folic acid and Ativan as needed. CIWA protocol. --Hypertensive urgency. Continue home medications and labetalol as needed. --Elevated BNP. Patient placed on Lasix. Continue supportive care. --BPH. Continue Flomax. --Nicotine dependence. Patient placed on tobacco cessation. Will be counseled on cessation when fully alert. --Class I obesity. Likely secondary to excess calories intake. Patient be counseled on diet and exercise therapy when appropriate. --DVT prophylaxis with Lovenox subQ. Discharge Plan: Home Plan to discharge in: 72 Hours - Advance Directives Does patient have a Living Will: No Does patient have a Durable POA for Healthcare: No - Code Status/Comfort Care Code Status Assessed: Yes Code Status: Full Code Critical Care: Yes <Vern Preston - Last Filed: 11/11/21 16:00> Date of Service: 11/12/21 Subjective: HPI as mentioned above Physical Examination: Vitals: Afebrile vital signs are stable Physical exam: Cardiovascular: Within normal limits. Lungs: Within normal limits Abdomen: Within normal limits Neuro: Awake, alert, oriented to person place and time Assessment: 1. COPD exacerbation 2. DTs Plan: 1. Continue with current plan of care as mentioned above <Juanita Giron - Last Filed: 11/13/21 08:14>
[2021-11-11] MEDS: LORazepam 2 MG/ML VIAL IV PRN (13:31)
[2021-11-11] MEDS: ALBUTEROL 2.5 MG/3 ML NEB SOL NEB SCH ×2 (14:06→19:30)
[2021-11-11] MEDS: IPRATROPIUM BROM 0.5MG/2.5ML NEB SCH ×2 (14:06→19:30)
--- NOTE | 2021-11-11 14:06 | P.CNS ---
Date of Consult: 11/11/21 Reason for Consult: Hyponatremia Requesting Physician: Severo Nielsen Chief Complaint: SOB History of Present Illness: 66M w/ PMHx of Htn, COPD, BPH, ETOH abuse, chronic cig smoker & obesity who p/w SOB & acute encephalopathy found to have hyponatremia w/ serum Na 114. He developed seizure in the ED & received hypertonic saline IV w/ resolution of seizure. Allergies No Known Allergies Allergy (Unverified 10/26/20 23:41) Home Medications: Amlodipine [Norvasc*] 10 mg PO DAILY 10/28/20 Fluticasone/Umeclidin/Vilanter [Trelegy Ellipta 100-62.5-25] 1 each IH DAILY 10/28/20 Arformoterol Tartrate [Brovana] 15 mcg NEB BIDRESP vial.neb 11/04/20 Ipratropium Neb [Atrovent*] 0.5 mg NEB Q6HP PRN amp 11/04/20 Nicotine [Nicoderm*] 21 mg TD DAILY patch.td24 11/04/20 Propranolol [Inderal*] 10 mg PO BID tab 11/04/20 Tamsulosin [Flomax*] 0.4 mg PO DAILY cap 11/04/20 Thiamine HCl [Vitamin B-1*] 100 mg PO DAILY tablet 11/04/20 lisinopriL [Prinivil*] 20 mg PO DAILY tab 11/04/20 Arformoterol Tartrate [Brovana] 15 mcg NEB BIDRESP vial.neb 11/13/20 predniSONE [Deltasone*] 10 mg PO SEECOM 14 Days #21 tab 07/18/21 - Past Medical/Surgical History -: COPD -: Hypertension -: Alcohol abuse -: Hyponatremia -: Hernia repair Psychosocial/ Personal History: 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 - Social History Smoking Status: Current every day smoker Alcohol use: Yes CD- Drugs: No Caffeine use: Yes Review of Systems Other: Unable to obtain d/t AMS Physical Examination General: Other (Appears acutely ill) HEENT: Atraumatic, Normocephalic, Other (+bipap) Neck: Supple, JVD not distended Respiratory: Other (symmetric chest expansion) Cardiovascular: No rubs, No murmurs Gastrointestinal: Soft and benign, No guarding Musculoskeletal: No clubbing, Swelling Integumentary: No warmth Neurological: Other (Obtunded) Lymphatics: No axilla or inguinal lymphadenopathy Urinary: Other (no bladder distention) External genitalia: Deferred Rectal: Deferred Laboratory Data (last 24 hrs) 11/11/21 10:30: Sodium 114 L*, Potassium 4.9, BUN 7, Creatinine 0.57, Glucose 108 H 11/11/21 08:27: PT 11.9, INR 1.08, APTT 37.1 H 11/11/21 08:27: WBC 11.50 H, Hgb 16.0, Hct 46.9, Plt Count 229 Conclusions/Impression: # Hypotonic, chronic, symptomatic, severe hyponatremia 2/2 low solute intake/beer potomania, prerenal state, & high ADH state from acute respiratory issues Serum Na on adm 114 BUN borderline low, serum uric acid not low, true SIADH or SLN unlikely Admit to ICU Serum osm 248, low F/u serum & urine osm, random urine Na + K, serum uric acid BNP chronically elevated. Avoid/minimize Na-containing IV fluid. Dc NS gtt. Resume IVF via LR gtt if urine Na low. Give tolvaptan when awake to swallow tab Add Ure-na po bid if po intake remains poor Received hypertonic saline today for seizure. If he develops another seizure, give another dose of hypertonic saline 3% 100 cc over 10 mins. Repeat dose up to 3x total as needed, to raise serum Na to 118-120 range. Insert PICC in case he needs hypertonic saline again Avoid/minimize Benzo Avoid Trazodone Monitor I/O Check lytes q4h # Acute respiratory failure probably 2/2 COPD exacerbation +/- CHF, aggravated by accelerated htn +Cig smoker, +obesity ABG on 11/11 showed primary respi acidosis Give lasix BiPAP prn BP control. SBP goal < 160. Labetalol 10 mg IV q4h prn & Hydralazine 10 mg IV q4h prn for SBP > 160. # Alcohol abuse +Fatty liver on imaging [facility] protocol # Htn IV labetalol prn, IV hydralazine prn as above Resume po BP meds once able to
[2021-11-11 14:37] LABS: Arterial Blood Carboxyhemoglob 4.1 % (0-1.5); Blood Gas Oxyhemoglobin 90.6 % (94-97); Blood O2 Saturation 95.5 % (92-98.5)
[2021-11-11 14:48] LABS: Barbiturates NEGATIVE (NEGATIVE); Benzodiazepines NEGATIVE (NEGATIVE); Cocaine NEGATIVE (NEGATIVE); METHAMPHETAM NEGATIVE (NEGATIVE); Methadone NEGATIVE (NEGATIVE); Opiates NEGATIVE (NEGATIVE); Phencyclidine NEGATIVE (NEGATIVE); THC Cannibis NEGATIVE (NEGATIVE)
[2021-11-11] MEDS ORDERED: FUROSEMIDE 20 MG/ 2ML VIAL ONE (15:00)
[2021-11-11] MEDS: FUROSEMIDE 20 MG/ 2ML VIAL IV SCH (15:18)
[2021-11-11] MEDS ORDERED: HYDRALAZINE HCL 20 MG/ML VIAL IV PRN (15:24)
[2021-11-11] MEDS ORDERED: NA CHLORIDE 3% 500 ML ONE (15:33)
[2021-11-11 16:21] LABS: Albumin 3.7 g/dL (3.4-5.0); Magnesium 1.9 mg/dL (1.8-2.4); Phosphorus 3.7 mg/dL (2.5-4.9); Uric Acid 5.2 mg/dL (3.5-7.2)
[2021-11-11] MEDS: METHYLPREDNISOLONE 40 MG INJ IV SCH (17:00)
[2021-11-11] MEDS ORDERED: HYDRALAZINE HCL 20 MG/ML VIAL ONE (17:08)
[2021-11-11] MEDS: NA CHLORIDE 3% 500 ML IV SCH ×4 (17:44→20:14)
[2021-11-11] MEDS ORDERED: NA CHLORIDE 3% 500 ML IV SCH (18:00)
[2021-11-11] MEDS ORDERED: IPRATROPIUM BROM 0.5MG/2.5ML ONE (19:33)
[2021-11-11] MEDS ORDERED: ALBUTEROL 2.5 MG/3 ML NEB SOL ONE (19:33)
--- NOTE | 2021-11-11 20:29 | RAD REPORT ---
EXAM DESCRIPTION: CT - Head Brain Wo Cont - 11/11/2021 7:55 pm CLINICAL HISTORY: Alteration of awareness/confusion COMPARISON: None TECHNIQUE: Computed axial tomography of the head was obtained. IV contrast was not requested. All CT scans are performed using dose optimization technique as appropriate and may include automated exposure control or mA/KV adjustment according to patient size. FINDINGS: An intracranial bleed is not seen . The ventricles are normal in caliber. No extra-axial fluid collection is noted. Mild to moderate cerebral atrophy. Beam hardening artifact limits evaluation of the posterior fossa Fluid within the sinuses/ mastoids is not seen. IMPRESSION: No acute intracranial abnormality is seen. If patient's symptoms persist MRI of the bra in would be recommended.
[2021-11-11] MEDS: NYSTATIN PWDR 100000 UNIT/GM TOP SCH (21:00)
[2021-11-11] MEDS: PROPRANOLOL HCL 10 MG TAB PO SCH (21:00)
[2021-11-11] MEDS ORDERED: NA CHLORIDE 3% 100 ML IV PRN (21:00)
[2021-11-11 21:54] LABS: Urine Appearance Clear (Clear); Urine Blood 3+ (Negative); Urine Color Yellow (Yellow); Urine Glucose Negative (Negative); Urine Protein 1+ (Negative); Urine Specific Gravity 1.025 (1.005-1.030)
[2021-11-11 21:57] LABS: Urine Bilirubin NEGATIVE (Negative); Urine Microscopic Reflex ORDER UMIC
[2021-11-11 22:08] LABS: Urine Bacteria <20 /HPF (NONE SEEN); Urine Mucus LIGHT /HPF (NONE SEEN); Urine RBC 20-50 /HPF (NONE SEEN)
[2021-11-11] MEDS ORDERED: D5W IV ONE (23:00)
[2021-11-11] MEDS ORDERED: THIAMINE HCL IV ONE (23:00)
[2021-11-11] MEDS ORDERED: THIAMINE 200 MG/2 ML INJ IVP STA (23:08)
[2021-11-11] MEDS ORDERED: THIAMINE 200 MG/2 ML INJ ONE (23:32)
[2021-11-12] MEDS ORDERED: D5W 1,000 ML IV SCH (01:00)
[2021-11-12] MEDS: ALBUTEROL 2.5 MG/3 ML NEB SOL NEB SCH ×4 (02:00→20:15)
[2021-11-12] MEDS: IPRATROPIUM BROM 0.5MG/2.5ML NEB SCH ×4 (02:00→20:15)
[2021-11-12] MEDS: METHYLPREDNISOLONE 40 MG INJ IV SCH ×3 (04:05→19:11)
[2021-11-12 04:56] LABS: Absolute Lymphocytes (CBC) 0.7 K/uL (0.7-4.9); Hematocrit 44.1 % (39.6-49.0); Lymphocytes % 6.5 % (15.3-44.8); MPV 7.3 fL (7.6-11.3); RBC Red Blood Cell Count 4.62 M/uL (4.33-5.43)
[2021-11-12 05:17] LABS: ALT/SGPT 28 U/L (12-78); AST/SGOT 25 U/L (15-37); Albumin 3.3 g/dL (3.4-5.0); Alkaline Phosphatase 83 U/L (45-117); BUN Blood Urea Nitrogen 10 mg/dL (7-18); Bicarbonate 33 mmol/L (21-32); Bilirubin Direct 0.3 mg/dL (0-0.2); Bilirubin Total 0.7 mg/dL (0.2-1.0); Glucose Level 96 mg/dL (74-106); HDL Cholesterol 55 mg/dL (40-60); LDL Cholesterol, Calculated 49 (<130); Magnesium 1.9 mg/dL (1.8-2.4); Phosphorus 3.6 mg/dL (2.5-4.9); Potassium 4.6 mmol/L (3.5-5.1); Protein, Total 5.9 g/dL (6.4-8.2); Sodium Level 120 mmol/L (136-145)
[2021-11-12] MEDS ORDERED: Ringers Lactate 1,000 ML IV SCH ×2 (07:00)
[2021-11-12] MEDS: ENOXAPARIN 40 MG/0.4 ML SQ SCH (08:49)
[2021-11-12] MEDS: PROPRANOLOL HCL 10 MG TAB PO SCH ×2 (08:49→21:00)
[2021-11-12] MEDS: AMLODIPINE 10 MG TAB PO SCH (08:49)
[2021-11-12] MEDS: FOLIC ACID 1 MG TABLET PO SCH (08:49)
[2021-11-12] MEDS: THIAMINE HCL 100 MG TABLET PO SCH (08:50)
[2021-11-12] MEDS: FUROSEMIDE 20 MG/ 2ML VIAL IV SCH ×2 (08:50→19:10)
[2021-11-12] MEDS: MULTIVITAMIN TAB PO SCH (08:50)
[2021-11-12] MEDS: TAMSULOSIN 0.4 MG SR CAP PO SCH (08:50)
[2021-11-12] MEDS: lisinopriL 20 MG TAB PO SCH (08:50)
[2021-11-12] MEDS: Fluticasone/Umeclidin/Vilanter [Trelegy Ellipta 100-62.5-25] Blst.W.Dev IH SCH (08:51)
[2021-11-12] MEDS: NYSTATIN PWDR 100000 UNIT/GM TOP SCH ×2 (09:21→21:20)
[2021-11-12] MEDS ORDERED: MAGNESIUM SULFATE 1 gm IVPB 1 GM/100 ML BAG IV ONE (11:25)
[2021-11-12] MEDS: NA CHLORIDE 0.9% 1,000 ML IV SCH (12:01)
--- NOTE | 2021-11-12 12:20 | PN ---
Date of Progress Note: 11/12/2021 Subjective: The patient was admitted with hyponatremia secondary to beer potomania. It was significant hyponatremia complicated with seizure. The patient mentioned that he also had seizure 2 weeks ago. The patient today more awake. The patient received hypertonic saline. Sodium has raised appropriately to 121, currently down to 120. The patient is fully awake. Physical Examination: Vital Signs: Blood pressure 113/56, pulse of 84, afebrile. The patient had urine output of 3200, negative of 2300. Chest: Clear to auscultation. Heart: S1, S2. Regular. Tachycardic. Abdomen: Soft, nontender. No organomegaly. No ascites. Extremity: Plus edema. Neuro: Alert, oriented x3. No focal. Laboratory Data: WBC 10.9, H and H 15.1/44.1, platelet of 199. Sodium 120, potassium 4.6, bicarb 33, chloride 83, BUN 10, creatinine 0.6, calcium 8.5, phosphorus 3.6, magnesium 1.9. Albumin 3.3. Corrected calcium is 9.1. Cortisol still pending. Urine electrolyte is still pending. Current Medications: The patient on include; 1. Nystatin. 2. Flomax. 3. Amlodipine 10 mg. 4. Lisinopril 20. 5. Inderal 10 b.i.d. 6. Ambien. 7. LR 75 per hour. 8. Multivitamin. Assessment And Plan: 1. Hyponatremia secondary to beer potomania, superimposed with prerenal, depletion. I am going to start the patient on normal saline at 75 per hour. We will repeat chemistry 4 hours after that and we will follow up the correction. I am going to go ahead and send for cortisol and TSH and follow up urine electrolyte. 2. Hypertension, controlled, optimal. Continue current medication. 3. Hypomagnesemia. We will supplement. 4. Alcohol intoxication as above. 5. Seizure secondary to hyponatremia, alcohol intoxication. We will follow up with primary. time spent exam the patient face to face, reviewing the date radiology and lab , placing order , discussing the case with nursing staff and with hospitalist 45 min RIGO Voice ID: [id number] Report ID: [id number] [facility] HE[facility] NETWORKMikki
[2021-11-12 12:43] LABS: Urine Appearance Clear (Clear); Urine Bilirubin Negative (Negative); Urine Blood 2+ (Negative); Urine Color Yellow (Yellow); Urine Glucose Negative (Negative); Urine Protein Negative (Negative)
[2021-11-12 12:44] LABS: Urine Microscopic Reflex ORDER UMIC
[2021-11-12 12:52] LABS: Urine Bacteria NONE SEEN /HPF (NONE SEEN); Urine RBC 20-50 /HPF (NONE SEEN)
--- NOTE | 2021-11-12 13:32 | RAD REPORT ---
EXAM DESCRIPTION: XR Chest, 1 View CLINICAL HISTORY: The patient is 66 years old and is Male; PICC placement TECHNIQUE: Frontal view of the chest. COMPARISON: No relevant prior studies available. FINDINGS: Lungs: Scattered interstitial and airspace opacities bilaterally. Pleural space: Blunting of the left costophrenic angle which may indicate left pleural effusion. No pneumothorax. Heart: Unremarkable. Mediastinum: Unremarkable. Bones/joints: Unremarkable. Tubes, lines and devices: Right PICC with tip in the SVC near the cavoatrial junction. IMPRESSION: 1. Right PICC with tip in the SVC near the cavoatrial junction. 2. Scattered interstitial and airspace opacities bilaterally. 3. Blunting of the left costophrenic angle which may indicate left pleural effusion. Electronically signed by: Aníbal Tse MD 11/12/2021 12:42 AM CDT Due to temporary technical issues with the PACS/Fluency reporting system, reports are being signed by the in house radiologist without review as a courtesy to ensure prompt reporting. The interpreting r adiologist is fully responsible for the content of the report.
[2021-11-12] MEDS ORDERED: PNEUMOCOCCAL VACCINE 0.5 ML IMVAC ONE (18:00)
[2021-11-12] MEDS ORDERED: INFLUENZA VACCINE (for 6+ mo) 0.5 ML DOSE IMVAC ONE (18:00)
[2021-11-12 20:04] LABS: BUN Blood Urea Nitrogen 16 mg/dL (7-18); Bicarbonate 35 mmol/L (21-32); Glucose Level 123 mg/dL (74-106); Sodium Level 121 mmol/L (136-145)
[2021-11-12 20:06] LABS: Potassium 4.9 mmol/L (3.5-5.1)
[2021-11-13] MEDS: METHYLPREDNISOLONE 40 MG INJ IV SCH ×3 (01:07→16:57)
[2021-11-13] MEDS: NA CHLORIDE 0.9% 1,000 ML IV SCH (01:07)
[2021-11-13] MEDS: ALBUTEROL 2.5 MG/3 ML NEB SOL NEB SCH ×4 (01:50→19:40)
[2021-11-13] MEDS: IPRATROPIUM BROM 0.5MG/2.5ML NEB SCH ×4 (01:50→19:40)
[2021-11-13 05:41] LABS: Albumin 3.4 g/dL (3.4-5.0); BUN Blood Urea Nitrogen 13 mg/dL (7-18); Bicarbonate 37 mmol/L (21-32); Glucose Level 132 mg/dL (74-106); Magnesium 2.1 mg/dL (1.8-2.4); Phosphorus 3.8 mg/dL (2.5-4.9); Potassium 4.9 mmol/L (3.5-5.1); Sodium Level 124 mmol/L (136-145); Thyroid Stimulating Hormone 0.665 uIU/mL (0.360-3.740)
--- NOTE | 2021-11-13 07:48 | EKG ---
Test Date: 2021-11-11 Test Time: 08:04:03 Carbon Lamp Cleaner: CRYSTAL MEASUREMENT RESULTS: Intervals: Rate: 98 IA: 216 QRSD: 94 QT: 356 QTc: 454 [place]: P: 68 IA: 216 QRS: 41 T: 61 INTERPRETIVE STATEMENTS: Sinus rhythm with 1st degree AV block with occasional premature ventricular complexes Right atrial enlargement Incomplete right bundle branch block Borderline ECG Compared to ECG 11/11/2021 07:59:17 Ventricular premature complex(es) now present First degree AV block now present Atrial premature complex(es) no longer present Aberrant conduction of supraventricular beat(s) no longer present Electronically Signed On 11-13-21 07:41:58 CDT by John Marie
--- NOTE | 2021-11-13 07:48 | EKG ---
Test Date: 2021-11-11 Test Time: 07:59:17 Die Cutter Diamond: CRYSTAL MEASUREMENT RESULTS: Intervals: Rate: 97 [place]: 202 QRSD: 94 QT: 354 QTc: 449 [place]: P: 61 [place]: 202 QRS: 31 T: 61 INTERPRETIVE STATEMENTS: Sinus rhythm with premature atrial complexes with aberrant conduction Possible Left atrial enlargement Incomplete right bundle branch block Borderline ECG Compared to ECG 07/17/2021 20:16:57 Sinus tachycardia no longer present Electronically Signed On 11-13-21 07:41:59 CDT by John Marie
[2021-11-13] MEDS: Fluticasone/Umeclidin/Vilanter [Trelegy Ellipta 100-62.5-25] Blst.W.Dev IH SCH (08:42)
[2021-11-13] MEDS: lisinopriL 20 MG TAB PO SCH (08:49)
[2021-11-13] MEDS: AMLODIPINE 10 MG TAB PO SCH (08:49)
[2021-11-13] MEDS: FOLIC ACID 1 MG TABLET PO SCH (08:50)
[2021-11-13] MEDS: PROPRANOLOL HCL 10 MG TAB PO SCH ×2 (08:50→20:18)
[2021-11-13] MEDS: ENOXAPARIN 40 MG/0.4 ML SQ SCH (08:50)
[2021-11-13] MEDS: MULTIVITAMIN TAB PO SCH (08:50)
[2021-11-13] MEDS: THIAMINE HCL 100 MG TABLET PO SCH (08:50)
[2021-11-13] MEDS: TAMSULOSIN 0.4 MG SR CAP PO SCH (08:50)
[2021-11-13] MEDS: NYSTATIN PWDR 100000 UNIT/GM TOP SCH ×2 (08:51→20:21)
[2021-11-13] MEDS: FUROSEMIDE 20 MG/ 2ML VIAL IV SCH ×2 (08:52→16:57)
--- NOTE | 2021-11-13 14:53 | PN ---
Date of Progress Note: 11/13/2021 Subjective: Patient was admitted with hyponatremia, seizure secondary to beer potomania. Patient up on arrival to the hospital sodium was 114. Patient was treated with hypertonic. Yesterday, we reach ed to 121, today up to 124. Patient is more awake. No tremor. Physical Examination: Vital Signs: Blood pressure 150/68, pulse of 96. Patient had good urine output of 3100, negative of 1200. Chest: Faint rales on the left base. Heart: S1, S2. Systolic murmur. Abdomen: Soft, nontender. Extremities: Venous stasis change both lower extremities. Laboratory Data: WBC 10.9, H and H 15.1/44.1. Sodium 124, potassium 4.9, bicarb 37, BUN 13, creatin ine 0.6, calcium 8.3. Phosphorus 3.8. Albumin 3.4. Current Medications: The patient is on include: 1.Nystatin. 2.Flomax. 3.Lovenox. 4.Amlodipine. 5.Lisinopril 20 daily. 6.Inderal. 7.Lasix 40 b.i.d. 8.Solu-Medrol. Assessment And Plan: 1.Severe hyponatremia complicated with seizure secondary to beer potomania, improving, appropriate r ise. I am going to go ahead and discontinue IV fluid. We will send for uric acid and chemistry. We will start the patient on salt tablet, continue current dose of Lasix and we will follow up improvem ent. Okay from the renal standpoint to be moved to the floor. 2.Hypertension, controlled, optimal. Continue current medication. 3.Hypomagnesemia. We will continue supplement. 4.Alcohol intoxication. Follow up with the primary. 5.Seizure secondary to alcohol intoxication/hyponatremia, recover. We will follow up with primary. 6.Slight over volume. Continue diuresis. Discontinue IV fluid. MA/MODL Voice ID: [id number] Report ID: [id number]
[2021-11-13] MEDS: SODIUM CHLORIDE 1 GM TAB PO SCH (16:57)
[2021-11-13] MEDS ORDERED: METHYLPREDNISOLONE 125 MG INJ IV SCH (18:00)
[2021-11-13] MEDS ORDERED: METHYLPREDNISOLONE 40 MG INJ IV ONE (20:00)
[2021-11-14] MEDS: LORazepam 2 MG/ML VIAL IV PRN (00:51)
[2021-11-14] MEDS: IPRATROPIUM BROM 0.5MG/2.5ML NEB SCH ×4 (02:00→20:00)
[2021-11-14] MEDS: ALBUTEROL 2.5 MG/3 ML NEB SOL NEB SCH ×4 (02:00→20:00)
[2021-11-14] MEDS ORDERED: METHYLPREDNISOLONE 125 MG INJ IV SCH (02:00)
[2021-11-14 05:51] LABS: Absolute Lymphocytes (CBC) 0.3 K/uL (0.7-4.9); Hematocrit 47.2 % (39.6-49.0); Lymphocytes % 4.6 % (15.3-44.8); MPV 7.5 fL (7.6-11.3); RBC Red Blood Cell Count 4.74 M/uL (4.33-5.43)
--- NOTE | 2021-11-14 06:02 | P.PN ---
Subjective Date of Service: 11/14/21 Chief Complaint: SOB Subjective: Other (reports he is feeling very weak.) Physical Examination - Vital Signs Temperature: 97.0 F Blood Pressure: 104/92 Pulse: 74 Respirations: 17 Pulse Ox (%): 96 - Physical Exam General: In no apparent distress HEENT: Atraumatic, Normocephalic Neck: Supple, JVD not distended Respiratory: Other (symmetric chest expansion) Cardiovascular: No rubs, No murmurs Gastrointestinal: Soft and benign, No guarding Musculoskeletal: No clubbing Integumentary: No warmth Neurological: Normal speech, Normal tone Lymphatics: No axilla or inguinal lymphadenopathy Urinary: Other (no bladder distention) External genitalia: Deferred Rectal: Deferred - Studies Microbiology Data (last 24 hrs): 11/11/21 08:19 Blood - Blood Blood Culture Gram Stain - Final Assessment And Plan - Plan # Hypotonic, chronic, symptomatic, severe hyponatremia 2/2 low solute intake/beer potomania, prerenal state, & high ADH state from acute respiratory issues Serum Na on adm 114, improved to 129 today BNP chronically elevated. Avoid/minimize Na-containing IV fluid or NaCl tabs. Give tolvaptan tomorrow if serum Na remains < 130 Add Ure-na po bid if po intake remains poor Received hypertonic saline for seizure Avoid/minimize Benzo Avoid Trazodone. May give ambien prn for insomnia. Monitor I/O Check lytes q4h # Acute respiratory failure probably 2/2 COPD exacerbation +/- CHF, aggravated by accelerated htn +Cig smoker, +obesity Repeat ABG on 11/14 showed primary chronic respi acidosis + metabolic alkalosis pH wnl. No indication for bicarb therapy. BiPAP prn BP control # Alcohol abuse +Fatty liver on imaging [facility] protocol # Htn BP controlled Continue current medication regimen
[2021-11-14 06:04] LABS: Albumin 3.2 g/dL (3.4-5.0); BUN Blood Urea Nitrogen 18 mg/dL (7-18); Glucose Level 137 mg/dL (74-106); Phosphorus 4.1 mg/dL (2.5-4.9); Sodium Level 128 mmol/L (136-145); Uric Acid 6.1 mg/dL (3.5-7.2)
[2021-11-14 06:05] LABS: Potassium 4.7 mmol/L (3.5-5.1)
[2021-11-14 06:06] LABS: Bicarbonate 43 mmol/L (21-32); Magnesium 2.2 mg/dL (1.8-2.4)
[2021-11-14 06:23] LABS: ALT/SGPT 31 U/L (12-78); Albumin 3.2 g/dL (3.4-5.0); Alkaline Phosphatase 68 U/L (45-117); BUN Blood Urea Nitrogen 18 mg/dL (7-18); Bilirubin Total 0.4 mg/dL (0.2-1.0); Glucose Level 137 mg/dL (74-106); NT PRO-BNP 511 pg/mL (<125); Sodium Level 129 mmol/L (136-145)
[2021-11-14 06:26] LABS: AST/SGOT 16 U/L (15-37); Potassium 4.7 mmol/L (3.5-5.1)
[2021-11-14 06:27] LABS: Magnesium 2.2 mg/dL (1.8-2.4)
[2021-11-14 06:29] LABS: Bicarbonate 42 mmol/L (21-32)
--- NOTE | 2021-11-14 07:24 | P.PN ---
Subjective Date of Service: 11/12/21 Patient still pretty tachypneic. Still requiring BiPAP at night. Mentation is improving. Continue to monitor closely Review of Systems 10-point ROS is otherwise unremarkable Physical Examination - Vital Signs Temperature: 97.0 F Blood Pressure: 152/91 Pulse: 74 Respirations: 20 Pulse Ox (%): 94 - Physical Exam General: Alert, In no apparent distress, Oriented x3 Respiratory: Diminished, Expiratory wheezes Cardiovascular: Regular rate/rhythm, Normal S1 S2, No murmurs Gastrointestinal: Normal bowel sounds, Soft and benign, Non-distended, No tenderness Musculoskeletal: No clubbing, No swelling, No tenderness Neurological: Normal speech, Normal tone, Normal affect Lymphatics: No axilla or inguinal lymphadenopathy - Studies Microbiology Data (last 24 hrs): 11/11/21 08:19 Blood - Blood Blood Culture Gram Stain - Final Medications List Reviewed: Yes Assessment & Plan - Problems (Diagnosis) (1) Acute exacerbation of COPD with asthma Current Visit: Yes Status: Acute (2) Acute diastolic heart failure Current Visit: No Status: Acute (3) Acute respiratory failure with hypoxia Current Visit: No Status: Acute (4) Alcohol abuse Current Visit: No Status: Acute (5) BPH (benign prostatic hyperplasia) Current Visit: No Status: Acute - Plan Plan: 1. Continue with albuterol and Atrovent nebs 2. Continue with IV steroids 3. BIPAP support 4. Pulmonary consultation if symptoms worsens 5. Librium as needed 6. Repeat chest x-ray in the morning 7. GI and DVT prophylaxis Discharge Plan: Home Plan to discharge in: Greater than 2 days - Advance Directives Does patient have a Living Will: No Does patient have a Durable POA for Healthcare: No - Code Status/Comfort Care Code Status: Full Code Critical Care: Yes Time Spent Managing PTS Care (In Minutes): 45
--- NOTE | 2021-11-14 07:26 | P.PN ---
Date of Service: 11/13/21 Subjective Patient is much more awake and alert. Oxygenation improved and he is down to 3 L. Review of Systems 10-point ROS is otherwise unremarkable Physical Examination - Vital Signs Reviewed - Physical Exam General: Alert, In no apparent distress, Oriented x3 Respiratory: Diminished, Expiratory wheezes Cardiovascular: Regular rate/rhythm, Normal S1 S2, No murmurs Gastrointestinal: Normal bowel sounds, Soft and benign, Non-distended, No tenderness Musculoskeletal: No clubbing, No swelling, No tenderness Neurological: Normal speech, Normal tone, Normal affect Assessment & Plan - Problems (Diagnosis) (1) Acute exacerbation of COPD with asthma Current Visit: Yes Status: Acute (2) Acute diastolic heart failure Current Visit: No Status: Acute (3) Acute respiratory failure with hypoxia Current Visit: No Status: Acute (4) Alcohol abuse Current Visit: No Status: Acute (5) BPH (benign prostatic hyperplasia) Current Visit: No Status: Acute - Plan 1. Continue with albuterol and Atrovent nebs 2. Continue with IV steroids 3. BIPAP support 4. Pulmonary consultation if symptoms worsens 5. Librium as needed 6. Repeat chest x-ray in the morning 7. GI and DVT prophylaxis Discharge Plan: Home Plan to discharge in: Greater than 2 days - Advance Directives Does patient have a Living Will: No Does patient have a Durable POA for Healthcare: No - Code Status/Comfort Care Code Status: Full Code Critical Care: Yes Time Spent Managing PTS Care (In Minutes): 45
--- NOTE | 2021-11-14 07:28 | P.PN ---
Date of Service: 11/14/21 Subjective Patient is feeling better. Weaned off of BiPAP support and on nasal cannula. Continue weaning down the oxygen. He does seem a little bit confused. Review of Systems 10-point ROS is otherwise unremarkable Physical Examination - Vital Signs Reviewed - Physical Exam General: Alert, In no apparent distress, Oriented x3 Respiratory: Diminished, Expiratory wheezes Cardiovascular: Regular rate/rhythm, Normal S1 S2, No murmurs Gastrointestinal: Normal bowel sounds, Soft and benign, Non-distended, No tenderness Musculoskeletal: No clubbing, No swelling, No tenderness Neurological: Normal speech, Normal tone, Normal affect Assessment & Plan - Problems (Diagnosis) (1) Acute exacerbation of COPD with asthma Current Visit: Yes Status: Acute (2) Acute diastolic heart failure Current Visit: No Status: Acute (3) Acute respiratory failure with hypoxia Current Visit: No Status: Acute (4) Alcohol abuse Current Visit: No Status: Acute (5) BPH (benign prostatic hyperplasia) Current Visit: No Status: Acute - Plan 1. Continue with albuterol and Atrovent nebs 2. Continue with IV steroids 3. BIPAP support prn; on 3L nasal cannula 4. Pulmonary consultation if symptoms worsens 5. Librium scheduled 6. GI and DVT prophylaxis Discharge Plan: Home Plan to discharge in: Greater than 2 days - Advance Directives Does patient have a Living Will: No Does patient have a Durable POA for Healthcare: No - Code Status/Comfort Care Code Status: Full Code Critical Care: Yes Time Spent Managing PTS Care (In Minutes): 45
--- NOTE | 2021-11-14 07:47 | RAD REPORT ---
EXAM DESCRIPTION: Kira Single View11/14/2021 6:33 am CLINICAL HISTORY: Chest pain COMPARISON: November 12, 2022 FINDINGS: Mild bibasilar atelectasis mildly improved. Upper lobes appear clear. Heart remains enlarg ed
[2021-11-14] MEDS: chlordiazePOXIDE HCl 5 MG CAP PO SCH ×3 (08:41→18:10)
[2021-11-14] MEDS: THIAMINE HCL 100 MG TABLET PO SCH ×2 (08:41→22:28)
[2021-11-14] MEDS: predniSONE 20 MG TAB PO SCH ×2 (08:42→22:27)
[2021-11-14] MEDS: ENOXAPARIN 40 MG/0.4 ML SQ SCH (08:42)
[2021-11-14] MEDS: lisinopriL 20 MG TAB PO SCH (08:43)
[2021-11-14] MEDS: AMLODIPINE 10 MG TAB PO SCH (08:43)
[2021-11-14] MEDS: TAMSULOSIN 0.4 MG SR CAP PO SCH (08:43)
[2021-11-14] MEDS: SODIUM CHLORIDE 1 GM TAB PO SCH ×2 (08:43→16:10)
[2021-11-14] MEDS: FOLIC ACID 1 MG TABLET PO SCH (08:43)
[2021-11-14] MEDS: MULTIVITAMIN TAB PO SCH (08:43)
[2021-11-14] MEDS: FUROSEMIDE 20 MG/ 2ML VIAL IV SCH (08:45)
[2021-11-14] MEDS: PROPRANOLOL HCL 10 MG TAB PO SCH ×2 (08:46→22:27)
[2021-11-14] MEDS: NYSTATIN PWDR 100000 UNIT/GM TOP SCH ×2 (08:52→22:29)
[2021-11-14] MEDS: Fluticasone/Umeclidin/Vilanter [Trelegy Ellipta 100-62.5-25] Blst.W.Dev IH SCH (09:00)
--- NOTE | 2021-11-14 10:30 | P.CNS ---
Date of Consult: 11/14/21 Reason for Consult: COPD exacerbation Chief Complaint: SOB History of Present Illness: Patient is 66 years of age well-known to ct history of COPD admitted with worsening dyspnea he still continues to smoke heavily mated with hypoxemia hypercarbia is doing much better Compliant with his inhalers Allergies No Known Allergies Allergy (Unverified 10/26/20 23:41) Home Medications: Amlodipine [Norvasc*] 10 mg PO DAILY 10/28/20 Fluticasone/Umeclidin/Vilanter [Trelegy Ellipta 100-62.5-25] 1 each IH DAILY 10/28/20 Arformoterol Tartrate [Brovana] 15 mcg NEB BIDRESP vial.neb 11/04/20 Ipratropium Neb [Atrovent*] 0.5 mg NEB Q6HP PRN amp 11/04/20 Nicotine [Nicoderm*] 21 mg TD DAILY patch.td24 11/04/20 Propranolol [Inderal*] 10 mg PO BID tab 11/04/20 Tamsulosin [Flomax*] 0.4 mg PO DAILY cap 11/04/20 Thiamine HCl [Vitamin B-1*] 100 mg PO DAILY tablet 11/04/20 lisinopriL [Prinivil*] 20 mg PO DAILY tab 11/04/20 Arformoterol Tartrate [Brovana] 15 mcg NEB BIDRESP vial.neb 11/13/20 predniSONE [Deltasone*] 10 mg PO SEECOM 14 Days #21 tab 07/18/21 - Past Medical/Surgical History Diabetic: No -: COPD -: Hypertension -: Alcohol abuse -: Hyponatremia -: Hernia repair Psychosocial/ Personal History: 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 - Social History Smoking Status: Current every day smoker Alcohol use: Yes CD- Drugs: No Caffeine use: Yes Review of Systems Respiratory: Cough, Shortness of Breath Physical Examination Temp Pulse Resp BP Pulse Ox 97.0 F 77 17 130/60 95 11/14/21 08:00 11/14/21 10:00 11/14/21 10:00 11/14/21 10:00 11/14/21 10:00 General: Alert, Oriented x3, Mild distress Respiratory: Expiratory wheezes Cardiovascular: Regular rate/rhythm, Normal S1 S2, Edema - Problems (1) COPD with exacerbation Current Visit: Yes Status: Acute Plan: Patient is 66 years of age well-known to me history of alcohol abuse smokes heavily admitted with an exacerbation hypoxemia hypercarbia vital signs oxygenation stable bicarbonate elevated doing a little better stable to be transferred to the floor change her to a combination of spironolactone and Diamox
[2021-11-14] MEDS: acetaZOLAMIDE 250 MG TAB PO SCH ×2 (12:02→22:28)
[2021-11-14 13:01] LABS: Blood Gas Oxyhemoglobin 63.4 % (94-97); Blood O2 Saturation 64.6 % (92-98.5)
[2021-11-14] MEDS: SPIRONOLACTONE 25 MG TABLET PO SCH (22:27)
[2021-11-15] MEDS: chlordiazePOXIDE HCl 5 MG CAP PO SCH ×4 (01:22→18:19)
[2021-11-15] MEDS: IPRATROPIUM BROM 0.5MG/2.5ML NEB SCH ×4 (01:30→19:45)
[2021-11-15] MEDS: ALBUTEROL 2.5 MG/3 ML NEB SOL NEB SCH ×4 (01:30→19:45)
[2021-11-15 06:00] LABS: Albumin 3.1 g/dL (3.4-5.0); BUN Blood Urea Nitrogen 24 mg/dL (7-18); Glucose Level 86 mg/dL (74-106); Magnesium 2.2 mg/dL (1.8-2.4); Potassium 3.9 mmol/L (3.5-5.1); Sodium Level 132 mmol/L (136-145)
[2021-11-15 06:01] LABS: Bicarbonate 42 mmol/L (21-32)
[2021-11-15] MEDS ORDERED: POTASSIUM CL SA 10 MEQ TAB PO ONE ×2 (09:00)
[2021-11-15] MEDS: Fluticasone/Umeclidin/Vilanter [Trelegy Ellipta 100-62.5-25] Blst.W.Dev IH SCH (09:00)
[2021-11-15] MEDS: SODIUM CHLORIDE 1 GM TAB PO SCH ×2 (09:00→17:00)
[2021-11-15] MEDS: FOLIC ACID 1 MG TABLET PO SCH (10:00)
[2021-11-15] MEDS: TAMSULOSIN 0.4 MG SR CAP PO SCH (10:00)
[2021-11-15] MEDS: acetaZOLAMIDE 250 MG TAB PO SCH ×2 (10:00→22:10)
[2021-11-15] MEDS: PROPRANOLOL HCL 10 MG TAB PO SCH ×2 (10:00→21:00)
[2021-11-15] MEDS: ENOXAPARIN 40 MG/0.4 ML SQ SCH (10:00)
[2021-11-15] MEDS: SPIRONOLACTONE 25 MG TABLET PO SCH ×2 (10:00→21:17)
[2021-11-15] MEDS: lisinopriL 20 MG TAB PO SCH (10:00)
[2021-11-15] MEDS: NYSTATIN PWDR 100000 UNIT/GM TOP SCH ×2 (10:00→20:12)
[2021-11-15] MEDS: MULTIVITAMIN TAB PO SCH (10:00)
[2021-11-15] MEDS: THIAMINE HCL 100 MG TABLET PO SCH ×2 (10:00→20:12)
[2021-11-15] MEDS: predniSONE 20 MG TAB PO SCH ×2 (10:00→20:12)
[2021-11-15] MEDS: AMLODIPINE 10 MG TAB PO SCH (10:00)
--- NOTE | 2021-11-15 17:56 | PN ---
Date of Progress Note: 11/15/2021 Subjective: The patient was admitted with alcohol intoxication, hyponatremia with seizure secondary to potomania. Physical Examination: Vital Signs: Blood pressure 124/66, pulse of 77, afebrile. The patient had good urine output of 350 0, negative of 1500. Chest: Faint rales bilateral base. Heart: S1, S2. Regular. Abdomen: Soft, nontender. Extremities: Trace edema. Neurologic: Alert, pleasantly confused. No focality. Mild tremor. Laboratory Data: WBC 6.4, H and H 15.5/47.2. Sodium 132, potassium 3.9, bicarb 42, BUN 24, creatini ne 0.7, calcium 8.5, phosphorus 3, magnesium 2.2, albumin 3.1, corrected calcium 9.3. Current Medications: The patient on include; 1.Amlodipine 10 mg. 2.Lisinopril 20. 3.Inderal 10 b.i.d. 4.Spironolactone. 5.Cholecalciferol. 6.Acetazolamide. 7.Zofran. 8.Hydrocodone. 9.Salt tablet. 10.KCl. 11.Multivitamin. Assessment And Plan: 1.Acute kidney injury secondary to prerenal, recovered, resolved. 2.Hyponatremia secondary to beer potomania. The patient improving significantly on current regimen. We will continue salt tablet and the diuresis. 3.Hypertension, controlled, optimal. I am going to continue current blood pressure medication and w e will follow up. 4.Hypokalemia, hypomagnesemia. The patient was started on spironolactone, currently normalized. ALEX/NORA Voice ID: [id number] Report ID: [id number]
[2021-11-15] MEDS ORDERED: NA CHLORIDE 0.9% 500 ML IV ONE (19:57)
[2021-11-16] MEDS: chlordiazePOXIDE HCl 5 MG CAP PO SCH ×5 (00:28→21:36)
[2021-11-16] MEDS: IPRATROPIUM BROM 0.5MG/2.5ML NEB SCH ×4 (01:45→20:20)
[2021-11-16] MEDS: ALBUTEROL 2.5 MG/3 ML NEB SOL NEB SCH ×4 (01:45→20:20)
[2021-11-16 05:03] LABS: BUN Blood Urea Nitrogen 20 mg/dL (7-18); Bicarbonate 40 mmol/L (21-32); Glucose Level 145 mg/dL (74-106); Magnesium 2.3 mg/dL (1.8-2.4); Phosphorus 2.2 mg/dL (2.5-4.9)
[2021-11-16 05:44] LABS: Potassium 4.5 mmol/L (3.5-5.1); Sodium Level 135 mmol/L (136-145)
[2021-11-16] MEDS: POTASS/SODIUM PHOSPHATE 1 PKT POWD.PACK PO SCH ×3 (06:15→09:59)
[2021-11-16] MEDS: ENOXAPARIN 40 MG/0.4 ML SQ SCH (08:44)
[2021-11-16] MEDS: acetaZOLAMIDE 250 MG TAB PO SCH ×2 (08:44→21:34)
[2021-11-16] MEDS: TAMSULOSIN 0.4 MG SR CAP PO SCH (08:44)
[2021-11-16] MEDS: THIAMINE HCL 100 MG TABLET PO SCH ×2 (08:44→21:34)
[2021-11-16] MEDS: SPIRONOLACTONE 25 MG TABLET PO SCH ×2 (08:44→21:35)
[2021-11-16] MEDS: AMLODIPINE 10 MG TAB PO SCH (08:45)
[2021-11-16] MEDS: NYSTATIN PWDR 100000 UNIT/GM TOP SCH ×2 (08:45→21:00)
[2021-11-16] MEDS: lisinopriL 20 MG TAB PO SCH (08:45)
[2021-11-16] MEDS: predniSONE 20 MG TAB PO SCH ×2 (08:45→21:36)
[2021-11-16] MEDS: FOLIC ACID 1 MG TABLET PO SCH (08:45)
[2021-11-16] MEDS: MULTIVITAMIN TAB PO SCH (08:45)
[2021-11-16] MEDS: SODIUM CHLORIDE 1 GM TAB PO SCH ×2 (08:46→17:00)
[2021-11-16] MEDS: Fluticasone/Umeclidin/Vilanter [Trelegy Ellipta 100-62.5-25] Blst.W.Dev IH SCH (08:46)
[2021-11-16] MEDS: PROPRANOLOL HCL 10 MG TAB PO SCH ×2 (08:50→21:00)
[2021-11-16] MEDS ORDERED: FUROSEMIDE 40 MG/4 ML VIAL IV ONE (13:41)
--- NOTE | 2021-11-16 13:58 | P.PN ---
Date of Service: 11/15/21 Subjective Patient is improving; clinical symptoms are better. Review of Systems 10-point ROS is otherwise unremarkable Physical Examination - Vital Signs Reviewed - Physical Exam General: Alert, In no apparent distress, Oriented x3 Respiratory: Clear bilaterally except for crackles Cardiovascular: Regular rate/rhythm, Normal S1 S2, No murmurs Gastrointestinal: Normal bowel sounds, Soft and benign, Non-distended, No tenderness Musculoskeletal: No clubbing, No swelling, No tenderness Neurological: no focal deficits Assessment & Plan - Problems (Diagnosis) (1) Acute exacerbation of COPD with asthma Current Visit: Yes Status: Acute (2) Acute diastolic heart failure Current Visit: No Status: Acute (3) Acute respiratory failure with hypoxia Current Visit: No Status: Acute (4) Alcohol abuse Current Visit: No Status: Acute (5) BPH (benign prostatic hyperplasia) Current Visit: No Status: Acute - Plan Continue with POC as mentioned below: 1. Continue with albuterol and Atrovent nebs 2. Continue with IV steroids 3. Wean on 3L nasal cannula 4. Pulmonary consultation if symptoms worsens 5. Librium scheduled 6. GI and DVT prophylaxis Discharge Plan: Home Plan to discharge in: Greater than 2 days - Advance Directives Does patient have a Living Will: No Does patient have a Durable POA for Healthcare: No - Code Status/Comfort Care Code Status: Full Code Critical Care: Yes Time Spent Managing PTS Care (In Minutes): 45
--- NOTE | 2021-11-16 14:13 | P.PN ---
Date of Service: 11/16/21 Subjective Patient is doing better. Patient needs to start getting out of bed and ambulating. Diuresed a little bit more by nephrology. Recent echocardiogram with no significant abnormalities. Possible diastolic heart failure. Continue with strict blood pressure control Review of Systems 10-point ROS is otherwise unremarkable Physical Examination - Vital Signs Reviewed - Physical Exam General: Alert, In no apparent distress, Oriented x3 Respiratory: Clear bilaterally except for crackles Cardiovascular: Regular rate/rhythm, Normal S1 S2, No murmurs Gastrointestinal: Normal bowel sounds, Soft and benign, Non-distended, No tenderness Musculoskeletal: No clubbing, No swelling, No tenderness Neurological: no focal deficits Assessment & Plan - Problems (Diagnosis) (1) Acute exacerbation of COPD with asthma Current Visit: Yes Status: Acute (2) Acute diastolic heart failure Current Visit: No Status: Acute (3) Acute respiratory failure with hypoxia Current Visit: No Status: Acute (4) Alcohol abuse Current Visit: No Status: Acute (5) BPH (benign prostatic hyperplasia) Current Visit: No Status: Acute - Plan Continue with POC as mentioned below: 1. Continue with albuterol and Atrovent nebs 2. Continue with IV steroids 3. Wean on 3L nasal cannula 4. Pulmonary consultation if symptoms worsens 5. Librium scheduled; decreased 3 times daily 6. Continue with strict blood pressure control 7. GI and DVT prophylaxis Discharge Plan: Home Plan to discharge in: Greater than 2 days - Advance Directives Does patient have a Living Will: No Does patient have a Durable POA for Healthcare: No - Code Status/Comfort Care Code Status: Full Code Critical Care: Yes Time Spent Managing PTS Care (In Minutes): 45
--- NOTE | 2021-11-16 16:13 | PN ---
Date of Progress Note: 11/16/2021 Subjective: The patient was admitted with alcohol intoxication. The patient had acute kidney injury secondary to prerenal, had severe hyponatremia with seizure. The patient was treated with hypertonic, then salt tablet, weaned from salt tablet yesterday. Physical Examination: Vital Signs: Blood pressure 123/70, pulse of 90, afebrile. The patient had good urine output, voiding. Chest: Crackles bilateral. Heart: S1, S2. Regular. Abdomen: Soft, nontender. Extremities: Plus edema. Neurologic: Alert. No focality. Laboratory Data: WBC 6.4, H and H 15.5/47.2. Sodium 135, potassium 4.5, bicarb 40, BUN 20, creatinine 0.8, calcium 8.4, phosphorus 2.2, magnesium 2.3, albumin 3, corrected calcium 9.2. Current Medications: The patient on include; 1. Albuterol. 2. Nystatin. 3. Lovenox. 4. Amlodipine 10. 5. Lisinopril 20. 6. Inderal. 7. Spironolactone 25 b.i.d. 8. Ambien. 9. tylenol 10. Ipratropium. 11. Prednisone. 12. KCl. Assessment And Plan: 1. Hyponatremia secondary to beer potomania, recovered, resolved. I am going to keep holding the salt tablet for the patient. We will go ahead and give a single dose of Lasix today to establish better volume control. 2. Hypertension, controlled, optimal with the presence of severe pulmonary hypertension, history of chronic obstructive pulmonary disease, obstructive sleep apnea, and hypokalemia. Continue spironolactone. 3. Metabolic alkalosis secondary to hypercapnic respiratory acidosis. The patient was started on Diamox. Continue spironolactone. 4. Edema secondary to body habit, pulmonary hypertension. Continue spironolactone, single dose of Lasix. 5. Hypertension, controlled, optimal. Continue current treatment. 6. Alcohol intoxication as by primary. ALEX/NORA Voice ID: [id number] Report ID: [id number] [facility] SYSTEM[facility]ik[facility]
[2021-11-17] MEDS: ALBUTEROL 2.5 MG/3 ML NEB SOL NEB SCH ×4 (01:35→19:25)
[2021-11-17] MEDS: IPRATROPIUM BROM 0.5MG/2.5ML NEB SCH ×4 (01:35→19:25)
[2021-11-17 03:45] LABS: Albumin 2.8 g/dL (3.4-5.0); Magnesium 2.3 mg/dL (1.8-2.4); Phosphorus 2.6 mg/dL (2.5-4.9)
[2021-11-17 05:08] VITALS: BMI 34.2
[2021-11-17] MEDS: chlordiazePOXIDE HCl 5 MG CAP PO SCH ×3 (05:45→22:25)
[2021-11-17] MEDS: SODIUM CHLORIDE 1 GM TAB PO SCH ×2 (08:00→17:00)
[2021-11-17] MEDS: Fluticasone/Umeclidin/Vilanter [Trelegy Ellipta 100-62.5-25] Blst.W.Dev IH SCH (09:00)
[2021-11-17] MEDS: lisinopriL 20 MG TAB PO SCH (09:00)
[2021-11-17] MEDS: PROPRANOLOL HCL 10 MG TAB PO SCH ×2 (09:00→22:02)
--- NOTE | 2021-11-17 09:06 | P.PN ---
Subjective Date of Service: 11/19/21 Chief Complaint: SOB Subjective: No new changes, Improving Physical Examination - Vital Signs Temperature: 97 F Blood Pressure: 100/55 Pulse: 95 Respirations: 16 Pulse Ox (%): 98 - Physical Exam General: Alert, Oriented x3 HEENT: Atraumatic, Normocephalic Neck: Supple Respiratory: Normal air movement Cardiovascular: Regular rate/rhythm, Normal S1 S2 Gastrointestinal: Soft and benign Neurological: Normal speech, Cranial nerves 3-12 intact - Studies Microbiology Data (last 24 hrs): 11/11/21 08:19 Blood - Blood Aerobic Blood Culture - Final 11/11/21 08:19 Blood - Blood Blood Culture Gram Stain - Final 11/11/21 08:19 Blood - Blood Anaerobic Blood Culture - Final No growth in 5 days. 11/11/21 08:00 Blood - Blood Aerobic Blood Culture - Final No growth in 5 days. 11/11/21 08:00 Blood - Blood Anaerobic Blood Culture - Final No growth in 5 days. Medications List Reviewed: Yes Assessment And Plan - Plan COPD Physical deconditioning Alcohol abuse Hypertension Plan: Presently patient is still significantly deconditioned. We will continue physical therapy. Continue alcohol withdrawal protocol management with Librium. We will continue to follow symptomatology. We will continue breathing treatment for respiratory issues. We will monitor vital signs per unit protocol and continue antihypertensive medications
[2021-11-17] MEDS: predniSONE 20 MG TAB PO SCH ×2 (10:00→20:39)
[2021-11-17] MEDS: AMLODIPINE 10 MG TAB PO SCH (10:00)
[2021-11-17] MEDS: TAMSULOSIN 0.4 MG SR CAP PO SCH (10:00)
[2021-11-17] MEDS: ENOXAPARIN 40 MG/0.4 ML SQ SCH (10:00)
[2021-11-17] MEDS: FOLIC ACID 1 MG TABLET PO SCH (10:00)
[2021-11-17] MEDS: MULTIVITAMIN TAB PO SCH (10:00)
[2021-11-17] MEDS: NYSTATIN PWDR 100000 UNIT/GM TOP SCH ×2 (10:00→20:40)
[2021-11-17] MEDS: acetaZOLAMIDE 250 MG TAB PO SCH ×2 (10:00→20:39)
[2021-11-17] MEDS: THIAMINE HCL 100 MG TABLET PO SCH ×2 (10:00→20:39)
[2021-11-17] MEDS: SPIRONOLACTONE 25 MG TABLET PO SCH ×2 (10:00→20:39)
[2021-11-18] MEDS: ALBUTEROL 2.5 MG/3 ML NEB SOL NEB SCH ×4 (01:30→20:10)
[2021-11-18] MEDS: IPRATROPIUM BROM 0.5MG/2.5ML NEB SCH ×4 (01:30→20:10)
--- NOTE | 2021-11-18 02:59 | PN ---
Date of Progress Note: 11/17/2021 Chief Complaint: Acute kidney injury. Subjective: The patient presented to the hospital with altered mental status and he was found to have a seizure. The patient was admitted for alcohol intoxication. He was found to have acute kidney injury, nonoliguric secondary to prerenal azotemia, complicated by severe hyponatremia with seizure. The patient was treated with hypertonic sodium chloride infusion. Subsequently, he was on sodium chloride tablet and completed sodium chloride tablet. Review of Systems: Denies new complaints. Physical Examination: Lungs: Clear to auscultation bilaterally. Heart: S1, S2. Abdomen: Soft, benign. Extremities: 1+ edema. Impression And Plan: 1. Hyponatremia, gradually improved with current treatment. The patient already completed sodium chloride tablet. Continue to monitor electrolytes. The patient will continue potassium supplements. 2. Hypertension, on lisinopril. Monitor renal function. Blood pressure is in acceptable control. The patient has complicated history of severe pulmonary hypertension, obstructive pulmonary disease, and obstructive sleep apnea. Continue spironolactone and monitor potassium and magnesium levels. 3. Metabolic alkalosis associated with hypercapnic respiratory acidosis in setting of hypoventilation syndrome. Hypercapnic respiratory acidosis as a primary disorder, he patient will have treatment with Diamox. 4. Edema. Adjust diuretics. Monitor electrolytes closely. EB/MODArnulfo Voice ID: [id number] Report ID: [id number] [facility]
[2021-11-18] MEDS: chlordiazePOXIDE HCl 5 MG CAP PO SCH ×3 (05:19→21:01)
--- NOTE | 2021-11-18 06:49 | P.PN ---
Subjective Date of Service: 11/19/21 Chief Complaint: SOB Subjective: No new changes, Improving Physical Examination - Vital Signs Temperature: 97.1 F Blood Pressure: 120/59 Pulse: 60 Respirations: 16 Pulse Ox (%): 97 - Physical Exam General: Alert, In no apparent distress, Oriented x3 HEENT: Normocephalic Respiratory: Expiratory wheezes Cardiovascular: Regular rate/rhythm, Normal S1 S2 Gastrointestinal: Soft and benign Neurological: Normal speech, Cranial nerves 3-12 intact - Studies Microbiology Data (last 24 hrs): 11/11/21 08:19 Blood - Blood Aerobic Blood Culture - Final 11/11/21 08:19 Blood - Blood Blood Culture Gram Stain - Final 11/11/21 08:19 Blood - Blood Anaerobic Blood Culture - Final No growth in 5 days. Medications List Reviewed: Yes Assessment And Plan - Plan COPD Physical deconditioning Alcohol abuse Hypertension Plan: patient is still significantly deconditioned. We will continue physical therapy as tolerated. Continue alcohol withdrawal protocol management with Librium. We will continue to follow symptomatology. We will continue breathing treatment for respiratory issues. We will monitor vital signs per unit protocol and continue antihypertensive medications Case management to assist with posthospitalization placement for rehabilitation.
[2021-11-18] MEDS: PROPRANOLOL HCL 10 MG TAB PO SCH ×2 (09:00→20:53)
[2021-11-18] MEDS: NYSTATIN PWDR 100000 UNIT/GM TOP SCH ×2 (09:00→20:54)
[2021-11-18] MEDS: AMLODIPINE 10 MG TAB PO SCH (09:00)
[2021-11-18] MEDS: lisinopriL 20 MG TAB PO SCH (09:00)
[2021-11-18] MEDS: Fluticasone/Umeclidin/Vilanter [Trelegy Ellipta 100-62.5-25] Blst.W.Dev IH SCH (09:00)
[2021-11-18] MEDS: SPIRONOLACTONE 25 MG TABLET PO SCH ×2 (09:55→20:52)
[2021-11-18] MEDS: ENOXAPARIN 40 MG/0.4 ML SQ SCH (09:55)
[2021-11-18] MEDS: THIAMINE HCL 100 MG TABLET PO SCH ×2 (09:56→20:52)
[2021-11-18] MEDS: MULTIVITAMIN TAB PO SCH (09:57)
[2021-11-18] MEDS: predniSONE 20 MG TAB PO SCH (09:57)
[2021-11-18] MEDS: acetaZOLAMIDE 250 MG TAB PO SCH ×2 (09:58→20:52)
[2021-11-18] MEDS: FOLIC ACID 1 MG TABLET PO SCH (09:58)
[2021-11-18] MEDS: TAMSULOSIN 0.4 MG SR CAP PO SCH (09:58)
--- NOTE | 2021-11-18 12:52 | P.PN ---
Subjective Date of Service: 11/18/21 Chief Complaint: COPD exacerbation Subjective: Improving (Patient is improving sickle therapy ordered) Review of Systems General: Weakness Respiratory: Shortness of Breath Physical Examination - Vital Signs Temperature: 97.1 F Blood Pressure: 120/62 Pulse: 72 Respirations: 20 Pulse Ox (%): 98 - Physical Exam General: Alert, Oriented x3, Mild distress Respiratory: Clear to auscultation bilaterally, Diminished Cardiovascular: No edema, Regular rate/rhythm - Studies Medications List Reviewed: Yes Assessment And Plan - Current Problems (Diagnosis) (1) COPD with exacerbation Current Visit: Yes Status: Acute Plan: Patient admitted with COPD exacerbation oxygenation and vital signs stable chemistries reviewed medication list reviewed discharge planning
--- NOTE | 2021-11-18 14:27 | PN ---
Date of Progress Note: 11/18/2021 Subjective: The patient was admitted with alcohol intoxication. The patient developed hyponatremia with beer potomania complicated with seizure. The patient managed with 3% and then salt tablet. Abraham t tablet has been discontinued for the last 4 days. Sodium maintained. Physical Examination: Vital Signs: Blood pressure 119/58, pulse of 65, afebrile. The patient had good urine output of 140 0. Chest: Decreased entry bilateral base. Heart: S1, S2. Regular. Abdomen: Morbidly obese. Could not appreciate any organomegaly. Extremities: Trace edema. Neuro: Alert. No focality. Laboratory Data: WBC 6.4, H and H 15.5/47.2. Sodium 137, potassium 4, bicarb 38, BUN 22, creatinine 0.9, calcium 8.6. Phosphorus 2.6, magnesium 2.3. Current Medications: The patient on include nystatin, albuterol, Lovenox, amlodipine 10, lisinopril 20, Inderal, spironolactone, chlordiazepoxide, acetazolamide. ABG; pH 7.55, CO2 75. Assessment And Plan: 1.Hyponatremia secondary to beer potomania, recovered, resolved. Keep holding normal salt tablet. 2.Contraction alkalosis secondary to over diuresis. I am going to hold the Lasix, hold the acetazol amide and we will give the patient 250 of normal saline. We will repeat the chest x-ray for better e valuation of the fluid status and we will follow up. 3.Hypertension, controlled optimal. Continue current medication. 4.Hypokalemia, resolved on spironolactone and on supplement. 5.Hypercapnic respiratory failure. We will follow up with Pulmonary. ALEX/THIAGOL Voice ID: [id number] Report ID: [id number]
[2021-11-18] MEDS: predniSONE 10 MG TAB PO SCH (20:53)
[2021-11-19] MEDS: IPRATROPIUM BROM 0.5MG/2.5ML NEB SCH ×4 (01:40→20:05)
[2021-11-19] MEDS: ALBUTEROL 2.5 MG/3 ML NEB SOL NEB SCH ×4 (01:40→20:05)
[2021-11-19] MEDS: chlordiazePOXIDE HCl 5 MG CAP PO SCH ×3 (05:21→22:30)
--- NOTE | 2021-11-19 08:05 | P.PN ---
Subjective Date of Service: 11/20/21 Chief Complaint: SOB Subjective: No new changes, Improving Physical Examination - Vital Signs Temperature: 97.1 F Blood Pressure: 120/59 Pulse: 60 Respirations: 16 Pulse Ox (%): 97 - Physical Exam General: Alert, In no apparent distress HEENT: Atraumatic, Normocephalic Respiratory: Clear to auscultation bilaterally Cardiovascular: Regular rate/rhythm, Normal S1 S2 Gastrointestinal: Soft and benign - Studies Medications List Reviewed: Yes Assessment And Plan - Plan COPD Physical deconditioning Alcohol abuse Hypertension Plan: Patient is still significantly deconditioned. We will continue physical therapy as tolerated. Continue alcohol withdrawal protocol management with Librium. We will continue to follow symptomatology. We will continue breathing treatment for respiratory issues. We will monitor vital signs per unit protocol and continue antihypertensive medications Case management to assist with posthospitalization placement for rehabilitation.
[2021-11-19] MEDS: TAMSULOSIN 0.4 MG SR CAP PO SCH (08:56)
[2021-11-19] MEDS: ENOXAPARIN 40 MG/0.4 ML SQ SCH (08:56)
[2021-11-19] MEDS: FOLIC ACID 1 MG TABLET PO SCH (08:56)
[2021-11-19] MEDS: acetaZOLAMIDE 250 MG TAB PO SCH ×2 (08:58→21:56)
[2021-11-19] MEDS: SPIRONOLACTONE 25 MG TABLET PO SCH ×2 (09:00→20:48)
[2021-11-19] MEDS: PROPRANOLOL HCL 10 MG TAB PO SCH ×2 (09:00→22:30)
[2021-11-19] MEDS: lisinopriL 20 MG TAB PO SCH (09:00)
[2021-11-19] MEDS: NYSTATIN PWDR 100000 UNIT/GM TOP SCH ×2 (09:00→20:48)
[2021-11-19] MEDS: Fluticasone/Umeclidin/Vilanter [Trelegy Ellipta 100-62.5-25] Blst.W.Dev IH SCH (09:00)
[2021-11-19] MEDS: AMLODIPINE 10 MG TAB PO SCH (09:00)
[2021-11-19] MEDS: MULTIVITAMIN TAB PO SCH (09:02)
[2021-11-19] MEDS: predniSONE 10 MG TAB PO SCH ×2 (09:02→20:47)
[2021-11-19] MEDS: THIAMINE HCL 100 MG TABLET PO SCH ×2 (09:07→20:50)
--- NOTE | 2021-11-19 13:04 | PN ---
Date of Progress Note: 11/19/2021 Subjective: The patient was admitted with hyponatremia complicated with seizure secondary to beer po tomania. The patient was started on hypertonic saline, then switched to salt tablet. Salt tablet wa s discontinued. The patient was given couple of dose of Lasix. The patient maintained very well. T he patient off salt tablet. Physical Examination: Vital Signs: Blood pressure 116/58, pulse of 59, afebrile. The patient had good urine output of 140 0, negative of 300. Chest: Clear to auscultation. Heart: S1, S2. Regular. Abdomen: Soft, nontender. Extremity: Trace edema. Neuro: Alert. No focality. No tremor. Laboratory Data: WBC 6.4, H and H 15.5/47.2. Sodium 137, potassium 4, bicarb 38, BUN 22, creatinine 0.9, calcium 8.6, phosphorus 2.6, magnesium 2.3, albumin 2.8. Corrected calcium is 9.5. Current Medications: The patient on include; 1.Nystatin. 2.Flomax. 3.Lovenox. 4.Amlodipine. 5.Lisinopril 20. 6.Inderal 10 b.i.d. 7.Spironolactone 25 b.i.d. 8.Tylenol. 9.Acetazolamide. 10.Folic acid. 11.Prednisone. 12.Thiamin. Assessment And Plan: 1.Hyponatremia secondary to beer potomania, recovered, resolved. 2.Hypomagnesemia, status post supplement, resolved. 3.Seizure secondary to hyponatremia. We will follow up with primary. 4.Alcohol intoxication as by primary. 5.Hypertension, controlled, optimal. Continue current treatment. 6.Deconditioning. Continue PT/OT. ALEX/MODL Voice ID: [id number] Report ID: [id number]
[2021-11-20] MEDS: IPRATROPIUM BROM 0.5MG/2.5ML NEB SCH ×4 (01:35→19:40)
[2021-11-20] MEDS: ALBUTEROL 2.5 MG/3 ML NEB SOL NEB SCH ×4 (01:35→19:40)
[2021-11-20] MEDS: chlordiazePOXIDE HCl 5 MG CAP PO SCH ×3 (05:04→22:52)
[2021-11-20] MEDS: SPIRONOLACTONE 25 MG TABLET PO SCH ×2 (08:44→21:00)
[2021-11-20] MEDS: acetaZOLAMIDE 250 MG TAB PO SCH (08:44)
[2021-11-20] MEDS: MULTIVITAMIN TAB PO SCH (08:44)
[2021-11-20] MEDS: AMLODIPINE 10 MG TAB PO SCH (08:44)
[2021-11-20] MEDS: THIAMINE HCL 100 MG TABLET PO SCH ×2 (08:44→21:04)
[2021-11-20] MEDS: PROPRANOLOL HCL 10 MG TAB PO SCH ×2 (08:45→21:00)
[2021-11-20] MEDS: predniSONE 10 MG TAB PO SCH ×2 (08:45→21:04)
[2021-11-20] MEDS: ENOXAPARIN 40 MG/0.4 ML SQ SCH (08:45)
[2021-11-20] MEDS: lisinopriL 20 MG TAB PO SCH (08:45)
[2021-11-20] MEDS: TAMSULOSIN 0.4 MG SR CAP PO SCH (08:46)
[2021-11-20] MEDS: FOLIC ACID 1 MG TABLET PO SCH (08:46)
[2021-11-20] MEDS: NYSTATIN PWDR 100000 UNIT/GM TOP SCH ×2 (08:46→21:00)
[2021-11-20] MEDS: Fluticasone/Umeclidin/Vilanter [Trelegy Ellipta 100-62.5-25] Blst.W.Dev IH SCH (08:47)
--- NOTE | 2021-11-20 15:26 | PN ---
Date of Progress Note: 11/20/2021 Subjective: The patient was admitted with hyponatremia secondary to beer potomania complicated with seizure. The patient was treated with hypertonic, then salt tablet, recovered, currently off salt ta blet for almost a week, maintaining good sodium level. The patient waiting for placement. Physical Examination: Vital Signs: Blood pressure 125/58, pulse of 84, afebrile. The patient had good urine output of 220 0. Chest: Clear to auscultation. Heart: S1, S2. Regular. Abdomen: Soft, nontender. Extremity: No edema. Only venous stasis change. Neurologic: Alert. No tremor. Laboratory Data: WBC 6.4, H and H 15.5/47.2. Sodium 137, potassium 4, bicarb 38, BUN 22, creatinine 0.9, calcium 8.6, phosphorus 2.6, magnesium 2.3, albumin 2.8. Corrected calcium is 9.5. Current Medications: The patient on include; 1.Flomax. 2.Lovenox. 3.Amlodipine. 4.Hydralazine. 5.Lisinopril 20 daily. 6.Inderal 10 b.i.d. 7.Spironolactone 25 b.i.d. 8.Acetazolamide. 9.Multivitamin. 10.Thiamin. Assessment And Plan: 1.Hyponatremia secondary to beer potomania, recovered, resolved. Keep current management of salt ta blet of hypertonic. We will continue to monitor the patient. 2.Hypertension, controlled, optimal. Continue current treatment. 3.Hypomagnesemia, status post supplement, resolved. 4.Seizure secondary to hyponatremia. We will follow up with primary. 5.Alcohol dependent, intoxication. We will follow up with primary. ALEX/NORA Voice ID: [id number] Report ID: [id number]
[2021-11-20] MEDS ORDERED: NA CHLORIDE 0.9% 500 ML IV ONE (21:09)
--- NOTE | 2021-11-20 21:52 | P.PN ---
Subjective Date of Service: 11/20/21 Chief Complaint: SOB Subjective: No new changes, Improving Physical Examination - Vital Signs Temperature: 97.1 F Blood Pressure: 120/59 Pulse: 60 Respirations: 16 Pulse Ox (%): 97 - Physical Exam General: Alert, Oriented x3 HEENT: Atraumatic, Normocephalic Neck: Supple Respiratory: Clear to auscultation bilaterally Cardiovascular: Regular rate/rhythm, Normal S1 S2 Gastrointestinal: Soft and benign - Studies Medications List Reviewed: Yes Assessment And Plan - Plan COPD Physical deconditioning Alcohol abuse Hypertension Plan: Patient is still significantly deconditioned. We will continue physical therapy as tolerated. Continue alcohol withdrawal protocol management with Librium. We will continue to follow symptomatology. We will continue breathing treatment for respiratory issues. We will monitor vital signs per unit protocol and continue antihypertensive medications Case management to assist with posthospitalization placement for rehabilitation.
[2021-11-21] MEDS: ALBUTEROL 2.5 MG/3 ML NEB SOL NEB SCH ×4 (01:30→19:45)
[2021-11-21] MEDS: IPRATROPIUM BROM 0.5MG/2.5ML NEB SCH ×4 (01:30→19:45)
[2021-11-21 05:06] LABS: Magnesium 2.3 mg/dL (1.8-2.4); Phosphorus 4.9 mg/dL (2.5-4.9); Potassium 5.5 mmol/L (3.5-5.1)
[2021-11-21] MEDS: chlordiazePOXIDE HCl 5 MG CAP PO SCH ×3 (05:32→22:39)
--- NOTE | 2021-11-21 07:26 | P.PN ---
Subjective Date of Service: 11/21/21 Chief Complaint: SOB Subjective: Other (No new complaints.) Physical Examination - Vital Signs Temperature: 97.9 F Blood Pressure: 126/60 Pulse: 83 Respirations: 19 Pulse Ox (%): 93 - Physical Exam General: In no apparent distress HEENT: Atraumatic, Normocephalic Neck: Supple, JVD not distended Respiratory: Clear to auscultation bilaterally Cardiovascular: No rubs, No murmurs Gastrointestinal: Soft and benign, No guarding Musculoskeletal: No clubbing, No warmth Neurological: Normal tone Urinary: Other (No bladder distention) External genitalia: Deferred Rectal: Deferred - Studies Medications List Reviewed: Yes Assessment And Plan - Plan # Hypotonic, chronic, symptomatic, severe hyponatremia 2/2 low solute intake/beer potomania, prerenal state, & high ADH state from acute respiratory issues Serum Na on adm 114, improved to 132 today BNP chronically elevated. Avoid/minimize Na-containing IV fluid or NaCl tabs. Advised on aded po solid food intake tid Avoid/minimize Benzo Avoid Trazodone. May give ambien prn for insomnia. # Hyperkalemia Lasix 80 mg IV x 1 # Acute respiratory failure probably 2/2 COPD exacerbation +/- CHF, aggravated by accelerated htn +Cig smoker, +obesity BiPAP prn BP control # Alcohol abuse +Fatty liver on imaging ETOH cessation advised # Htn BP controlled Continue current medication regimen
[2021-11-21] MEDS ORDERED: FUROSEMIDE 40 MG/4 ML VIAL IV ONE (08:32)
[2021-11-21] MEDS: Fluticasone/Umeclidin/Vilanter [Trelegy Ellipta 100-62.5-25] Blst.W.Dev IH SCH (09:00)
[2021-11-21] MEDS: PROPRANOLOL HCL 10 MG TAB PO SCH ×2 (10:00→22:38)
[2021-11-21] MEDS: predniSONE 10 MG TAB PO SCH (10:00)
[2021-11-21] MEDS: MULTIVITAMIN TAB PO SCH (10:00)
[2021-11-21] MEDS: SPIRONOLACTONE 25 MG TABLET PO SCH ×2 (10:01→22:38)
[2021-11-21] MEDS: lisinopriL 20 MG TAB PO SCH (10:01)
[2021-11-21] MEDS: FOLIC ACID 1 MG TABLET PO SCH (10:01)
[2021-11-21] MEDS: TAMSULOSIN 0.4 MG SR CAP PO SCH (10:01)
[2021-11-21] MEDS: AMLODIPINE 10 MG TAB PO SCH (10:01)
[2021-11-21] MEDS: THIAMINE HCL 100 MG TABLET PO SCH ×2 (10:02→22:55)
[2021-11-21] MEDS: ENOXAPARIN 40 MG/0.4 ML SQ SCH (10:02)
[2021-11-21] MEDS: NYSTATIN PWDR 100000 UNIT/GM TOP SCH ×2 (10:03→22:57)
--- NOTE | 2021-11-21 13:52 | P.PN ---
Subjective Date of Service: 11/21/21 Chief Complaint: SOB COPD exacerbation Subjective: Improving (Patient is improving condition stable planning to transfer to a [place] [facility]) Review of Systems General: Weakness Respiratory: Shortness of Breath Physical Examination - Vital Signs Temperature: 97.4 F Blood Pressure: 114/61 Pulse: 77 Respirations: 15 Pulse Ox (%): 94 - Physical Exam General: Alert, Oriented x3 Neck: Supple Respiratory: Clear to auscultation bilaterally, Diminished Cardiovascular: Regular rate/rhythm, Normal S1 S2 - Studies Medications List Reviewed: Yes Assessment And Plan - Current Problems (Diagnosis) (1) COPD with exacerbation Current Visit: Yes Status: Acute Plan: Patient admitted with COPD exacerbation doing well and to transfer back to the [place] [facility] labs all reviewed potassium mildly elevated probably from hemolysis vital signs stable oxygen requirements are also stable cultures are negative plan from for discharge as soon as we have acceptance from the [place] [facility] Covid test is also pending reduce dose of prednisone to 10 mg daily resume Trelegy at home
--- NOTE | 2021-11-21 14:33 | P.DS ---
Admission Date: 11/11/21 Discharge Date: 11/21/21 Disposition: TRANSFER TO [facility] Discharge Condition: FAIR Reason for Admission: SOB COPD exacerbation - Problems (1) COPD with exacerbation Current Visit: Yes Status: Acute Brief History of Present Illness: Patient is 66 years of age well-known to me history of COPD admitted with worsening dyspnea he still continues to smoke heavily mated with hypoxemia hypercarbia is doing much better Compliant with his inhalers Hospital Course: Patient did well during the course of his stay required intermittent BiPAP the time of discharge patient was stable see my today's progress note he is to follow-up with me in 2 weeks Vital Signs/Physical Exam: Temp Pulse Resp BP Pulse Ox 97.4 F 77 15 114/61 94 11/21/21 13:52 11/21/21 13:52 11/21/21 13:52 11/21/21 13:52 11/21/21 13:52 Laboratory Data at Discharge: WBC 6.40 K/uL (4.3-10.9) D 11/14/21 05:00 Hgb 15.5 g/dL (13.6-17.9) 11/14/21 05:00 Hct 47.2 % (39.6-49.0) 11/14/21 05:00 Plt Count 206 K/uL (152-406) 11/14/21 05:00 PT 11.9 SECONDS (9.5-12.5) 11/11/21 08:27 INR 1.08 11/11/21 08:27 APTT 37.1 SECONDS (24.3-36.9) H 11/11/21 08:27 Sodium 132 mmol/L (136-145) L 11/21/21 04:30 Potassium 5.5 mmol/L (3.5-5.1) H 11/21/21 04:30 BUN 32 mg/dL (7-18) H 11/21/21 04:30 Creatinine 1.18 mg/dL (0.55-1.3) 11/21/21 04:30 Glucose 124 mg/dL (74-106) H 11/21/21 04:30 Uric Acid 6.1 mg/dL (3.5-7.2) 11/14/21 05:00 Phosphorus 4.9 mg/dL (2.5-4.9) 11/21/21 04:30 Magnesium 2.3 mg/dL (1.8-2.4) 11/21/21 04:30 Total Bilirubin 0.4 mg/dL (0.2-1.0) 11/14/21 05:00 AST 16 U/L (15-37) 11/14/21 05:00 ALT 31 U/L (12-78) 11/14/21 05:00 Alkaline Phosphatase 68 U/L (45-117) 11/14/21 05:00 Triglycerides 74 mg/dL (<150) 11/12/21 04:39 Cholesterol 119 mg/dL (<200) 11/12/21 04:39 HDL Cholesterol 55 mg/dL (40-60) 11/12/21 04:39 Cholesterol/HDL Ratio 2.16 11/12/21 04:39 Home Medications: Amlodipine [Norvasc*] 10 mg PO DAILY 10/28/20 Fluticasone/Umeclidin/Vilanter [Trelegy Ellipta 100-62.5-25] 1 each IH DAILY 10/28/20 Arformoterol Tartrate [Brovana] 15 mcg NEB BIDRESP vial.neb 11/04/20 Ipratropium Neb [Atrovent*] 0.5 mg NEB Q6HP PRN amp 11/04/20 Nicotine [Nicoderm*] 21 mg TD DAILY patch.td24 11/04/20 Propranolol [Inderal*] 10 mg PO BID tab 11/04/20 Tamsulosin [Flomax*] 0.4 mg PO DAILY cap 11/04/20 Thiamine HCl [Vitamin B-1*] 100 mg PO DAILY tablet 11/04/20 lisinopriL [Prinivil*] 20 mg PO DAILY tab 11/04/20 predniSONE [Deltasone*] 10 mg PO SEECOM 14 Days #21 tab 07/18/21 Physician Discharge Instructions: Patient to follow-up with me in 2 weeks Diet: Regular Followup: NONE,NONE [Primary Care Provider] -
[2021-11-21 15:03] VITALS: O2SAT 94
[2021-11-21] MEDS ORDERED: NA CHLORIDE 0.9% 250 ML IV PRN (22:36)
[2021-11-21] MEDS ORDERED: ALBUTEROL 2.5 MG/3 ML NEB SOL NEB ONE (23:30)
[2021-11-21] MEDS ORDERED: NA CHLORIDE 0.9% 500 ML IV ONE (23:32)
[2021-11-22 00:06] VITALS: TEMP 97.6
[2021-11-22] MEDS: IPRATROPIUM BROM 0.5MG/2.5ML NEB SCH (02:00)
[2021-11-22] MEDS: ALBUTEROL 2.5 MG/3 ML NEB SOL NEB SCH (02:00)
[2021-11-22 06:17] VITALS: BP 96/54
[2021-11-22] MEDS ORDERED: predniSONE 10 MG TAB PO SCH (09:00)
== END 2021-11-22 02:30 | DRG 190 ==
LOC: ER 07:52 → ERHOLD 12:53 → 3RD-ICU 20:07 → 4TH 11-14 11:00 → 2ND 11-14 17:27
PROVIDERS: ADMIT Internal Medicine Nephrology; ATTEND Internal Medicine Sleep Medicine
PROC: 5A09557 Assistance with Respiratory Ventilation, Greater than 96 Consecutive Hours, Continuous Positive Airway Pressure (ICD-10-PCS; principal; 2021-11-11)
PROC: 02HV33Z Insertion of Infusion Device into Superior Vena Cava, Percutaneous Approach (ICD-10-PCS; 2021-11-11)
DX: J44.1 Chronic obstructive pulmonary disease with (acute) exacerbation (principal); J96.21 Acute and chronic respiratory failure with hypoxia; I50.31 Acute diastolic (congestive) heart failure; G93.40 Encephalopathy, unspecified; E87.1 Hypo-osmolality and hyponatremia; E87.2 Acidosis; N17.9 Acute kidney failure, unspecified; E87.3 Alkalosis; I11.0 Hypertensive heart disease with heart failure; N40.0 Benign prostatic hyperplasia without lower urinary tract symptoms; K76.0 Fatty (change of) liver, not elsewhere classified; I16.0 Hypertensive urgency; E83.42 Hypomagnesemia; E87.6 Hypokalemia; I27.20 Pulmonary hypertension, unspecified; J45.909 Unspecified asthma, uncomplicated; F17.210 Nicotine dependence, cigarettes, uncomplicated; F10.229 Alcohol dependence with intoxication, unspecified; E66.01 Morbid (severe) obesity due to excess calories; R56.9 Unspecified convulsions; Z68.34 Body mass index [BMI] 34.0-34.9, adult; Z79.899 Other long term (current) drug therapy; Z79.52 Long term (current) use of systemic steroids; Z23 Encounter for immunization; Z20.822 Contact with and (suspected) exposure to COVID-19
CPT/HCPCS: 0240U; 36415; 36569; 70450; 71045; 80048; 80051; 80053; 80061; 80069; 80076; 80307; 81003; 81015; 82040; 82533; 82805; 82947; 83036; 83605; 83735; 83880; 83930; 83935; 84100; 84132; 84145; 84295; 84300; 84443; 84484; 84550; 85025; 85610; 85730; 87040; 87086; 87088; 87205; 93005; 94660; 94760; 96374; 97110; 97116; 97161; 97530; 99285; J0360; J1650; J1940; J2920; J2930; J3411; J3475; J7030; J7040; J7050; J7131; J7512; U0003

== ENCOUNTER 2021-11-22 06:28 | Inpatient (IN) | payer BC ==
[2021-11-22 06:46] LABS: Arterial Blood Carboxyhemoglob 0.9 % (0-1.5); Blood Gas Oxyhemoglobin 89.6 % (94-97); Blood O2 Saturation 91.4 % (92-98.5)
[2021-11-22] MEDS ORDERED: IPRATROPIUM BROM 0.5MG/2.5ML ONE ×2 (06:48→06:50)
[2021-11-22] MEDS ORDERED: NA CHLORIDE 0.9% 1,000 ML ONE ×2 (06:48→07:41)
[2021-11-22] MEDS ORDERED: METHYLPREDNISOLONE 125 MG INJ ONE (06:48)
[2021-11-22] MEDS ORDERED: ALBUTEROL 2.5 MG/3 ML NEB SOL ONE ×2 (06:48→06:50)
[2021-11-22 07:15] LABS: Hematocrit 43.7 % (39.6-49.0); Lymphocytes % 8.8 % (15.3-44.8); MPV 7.6 fL (7.6-11.3); RBC Red Blood Cell Count 4.44 M/uL (4.33-5.43)
[2021-11-22 07:24] LABS: ALT/SGPT 24 U/L (12-78); AST/SGOT 5 U/L (15-37); Alkaline Phosphatase 51 U/L (45-117); BUN Blood Urea Nitrogen 51 mg/dL (7-18); Bicarbonate 33 mmol/L (21-32); Bilirubin Total 0.2 mg/dL (0.2-1.0); Glucose Level 168 mg/dL (74-106); Magnesium 2.1 mg/dL (1.8-2.4); NT PRO-BNP 328 pg/mL (<125); Potassium 4.6 mmol/L (3.5-5.1); Protein, Total 5.6 g/dL (6.4-8.2); Sodium Level 132 mmol/L (136-145); Troponin High Sensitivity 17.8 pg/mL (<58.9)
[2021-11-22 07:27] LABS: Bilirubin Direct < 0.1 mg/dL (0-0.2)
[2021-11-22 07:40] LABS: Protime INR 0.89
[2021-11-22] MEDS ORDERED: HYDROCORTISONE SUC 100 MG INJ ONE (07:41)
[2021-11-22] MEDS ORDERED: MAGNESIUM SULFATE 1 gm IVPB 1 GM/100 ML BAG IV ONE (07:41)
--- NOTE | 2021-11-22 08:05 | ER ---
Nurse's Notes [facility] Name: Randolph Mckeon Age: 66 yrs Sex: Male : 1955 Arrival Date: 11/22/2021 Time: 06:28 Bed 4 Private MD: Diagnosis: COPD/ Chronic obstructive pulmonary disease with (acute) exacerbation;Hypotension, unspecified;Hypoxemia Presentation: 11/22 06:28 Chief complaint: EMS states: "we were called out for hypoxia and low blood pressure. as6 when we got there pt was 88% RA and blood pressures of 90s over 60s". Coronavirus screen: Client presents with at least one sign or symptom that may indicate coronavirus-19. Standard/surgical mask placed on the client. Provider contacted for isolation considerations. Ebola Screen: No symptoms or risks identified at this time. Initial Sepsis Screen: Does the patient meet any 2 criteria? RR > 20 per min. Mean Arterial Pressure (MAP) < 65. Does the patient have a suspected source of infection? Yes: Productive cough/pneumonia. Risk Assessment: Do you want to hurt yourself or someone else? Patient reports no desire to harm self or others. Onset of symptoms was November 22, 2021. Care prior to arrival: Medication(s) given: Albuterol Neb x 1, Atrovent Neb x 1. 06:28 Method Of Arrival: EMS: [facility] as6 06:28 Acuity: YANNICK 2 as6 Historical: - PMHx: 06:35 COPD; Hypertension; as6 - Immunization history:: Adult Immunizations unknown. - Social history:: Smoking status: Patient/guardian denies using tobacco. Screenin:09 Abuse screen: Denies threats or abuse. Denies injuries from another. Nutritional as6 screening: No deficits noted. Tuberculosis screening: No symptoms or risk factors identified. Fall Risk Fall in past 12 months (25 points). Secondary diagnosis (15 points) dementia, IV access (20 points). Ambulatory Aid- None/Bed Rest/Nurse Assist (0 pts). Mental Status- Oriented to own ability (0 pts). Total Pedro Fall Scale indicates High Risk Score (45 or more points). Fall prevention measures have been instituted. Side Rails Up X 2 Frequent Obs/Assessments Occuring As available patient and family educated on Fall Prevention Program and Strategies. Assessment: 06:59 General: Appears uncomfortable, obese, unkempt, Behavior is cooperative, restless. as6 Pain: Denies pain. Neuro: Level of Consciousness is awake, alert, obeys commands, Oriented to person, place. Cardiovascular: Pulses are palpable in BLE. Respiratory: Airway is patent Trachea midline Respiratory effort is labored, Respiratory pattern is hyperventilation Patient placed on BiPAP: Breath sounds with wheezes bilaterally. Vital Signs: 06:24 BP 80 / 49; Pulse 100; Resp 22; jg9 06:28 BP 80 / 49; Pulse 106; Resp 31 S; Temp 98.5(O); Pulse Ox 97% on 3 lpm NC; Weight 81.65 as6 kg (R); Height 5 ft. 10 in. (177.80 cm) (R); Pain 0/10; 06:30 BP 81 / 50; Pulse 101; Resp 28; Pulse Ox 97% on BiPAP; jg9 07:02 BP 88 / 54; Pulse 100; Resp 27; Pulse Ox 97% on BiPAP; jg9 08:03 BP 104 / 61; Pulse 93; Resp 27; Pulse Ox 93% on BiPAP; jg9 09:00 BP 110 / 65; Pulse 92; Resp 26 S; Pulse Ox 94% on BiPAP; jg9 10:30 BP 102 / 57; Pulse 89; Resp 24 S; Pulse Ox 90% on BiPAP; jg9 06:28 Body Mass Index 25.83 (81.65 kg, 177.80 cm) as6 ED Course: 06:28 Patient arrived in ED. as6 06:31 Javier Brooks MD is Attending Physician. 7 06:35 Triage completed. as6 06:35 Arm band placed on. as6 06:43 Gerardo Chiang, SAMEER is Primary Nurse. as6 06:50 Initial lab(s) drawn, by me, sent to lab. First set of blood cultures drawn by me. as6 COVID swab sent to lab. Inserted saline lock: 20 gauge in left wrist, using aseptic technique. Blood collected. 06:51 Procalcitonin Sent. as6 06:51 Lactate Sent. as6 06:51 Basic Metabolic Panel Sent. as6 06:51 CBC with Diff Sent. as6 06:51 LFT's Sent. as6 06:51 Magnesium Sent. as6 06:51 NT PRO-BNP Sent. as6 06:51 PT-INR Sent. as6 06:51 Troponin HS Sent. as6 06:53 XRAY Chest (1 view) In Process Unspecified. EDMS 07:10 Placed in gown. Bed in low position. Call light in reach. Side rails up X2. Cardiac as6 monitor on. Pulse ox on. NIBP on. 07:15 Attending Physician role handed off by Javier Brooks MD rn 07:15 Severo Nielsen MD is Attending Physician. rn 07:22 Lab(s) recollected, by me, sent to lab. Second set of blood cultures drawn by me. dh3 Inserted saline lock: 20 gauge in left antecubital area, using aseptic technique. Blood collected. 08:04 Chandler Nielsen MD is Hospitalizing Provider. rn 08:09 Resting quietly. jg9 10:58 BIPAP Sent. jg9 10:59 No provider procedures requiring assistance completed. Patient admitted, IV remains in jg9 place. Administered Medications: 06:54 Drug: Albuterol 2.5 mg Route: Inhalation; as6 10:58 Follow up: Response: No adverse reaction jg9 06:54 Drug: AtroVENT (ipratropium) Aerosol 0.5 mg Route: Inhalation; as6 10:58 Follow up: Response: No adverse reaction jg9 06:54 Drug: NS 0.9% 1000 ml Route: IV; Rate: 125 ml/hr; Site: left hand; as6 06:54 Drug: SOLU-Medrol (methylPrednisoLONE) 125 mg Route: IVP; Site: left hand; as6 07:03 Follow up: Response: No adverse reaction blackburn 07:44 Drug: NS 0.9% 1000 ml Route: IV; Rate: 1000 ml; Site: left upper arm; blackburn 07:44 Drug: Magnesium Sulfate 1 grams Route: IVPB; Infused Over: 1 hrs; Site: left upper arm; blackbrun 10:57 Follow up: Response: No adverse reaction; IV Status: Completed infusion jg9 07:44 Drug: Solu-CORTEF (hyrdoCORTISONE) 100 mg Route: IVP; Site: left upper arm; blackburn 07:45 Follow up: Response: No adverse reaction blackburn Outcome: 08:05 Decision to Hospitalize by Provider. rn 11:00 Condition: improved jg9 11:34 Admitted to Tele accompanied by nurse, accompanied by tech, via stretcher, room 231, blackburn with oxygen, on monitor. 11:34 Instructed on the need for admit. 11:35 Patient left the ED. blackburn Signatures: Dispatcher [employer] EDMS Severo Nielsen MD MD rn Herrera, Deanna 3 Javier Brooks MD MD 7 Gerardo Chiang RN RN as6 Sushma Perez RN RN jg9 Au-StagerAlysia RN RN blackburn Corrections: (The following items were deleted from the chart) 08:09 07:04 BP 81 / 51; Pulse 101bpm; Resp 28bpm; Pulse Ox 97% BiPAP; blackburn jg9
--- NOTE | 2021-11-22 08:05 | EDPHYS ---
Physician Documentation [facility] Name: Randolph Mckeon Age: 66 yrs Sex: Male : 1955 Arrival Date: 11/22/2021 Time: 06:28 Bed 4 Private MD: ED Physician Severo Nielsen HPI: 11/22 06:39 This 66 yrs old Male presents to ER via EMS with complaints of Shortness of breath. mh7 06:39 The patient has shortness of breath at rest. Onset: The symptoms/episode began/occurred mh7 last night. Duration: The symptoms are continuous, and are steadily getting worse. The patient's shortness of breath is aggravated by nothing, is alleviated by nothing. Associated signs and symptoms: Pertinent negatives: chest pain, non-productive cough, productive cough, diaphoresis, dizziness, fever, hemoptysis, loss of consciousness, nausea, numbness in extremities, visual changes, vomiting. Severity of symptoms: At their worst the symptoms were moderate last night, in the emergency department the symptoms have improved moderately. The patient has been recently been admitted at [facility], was discharged yesterday. Historical: - PMHx: 06:35 COPD; Hypertension; as6 - Immunization history:: Adult Immunizations unknown. - Social history:: Smoking status: Patient/guardian denies using tobacco. ROS: 06:39 Constitutional: Negative for fever, chills, and weight loss, Eyes: Negative for injury, mh7 pain, redness, and discharge, ENT: Negative for injury, pain, and discharge, Neck: Negative for injury, pain, and swelling, Cardiovascular: Negative for chest pain, palpitations, and edema, Abdomen/GI: Negative for abdominal pain, nausea, vomiting, diarrhea, and constipation, Back: Negative for injury and pain, : Negative for injury, bleeding, discharge, and swelling, MS/Extremity: Negative for injury and deformity, Skin: Negative for injury, rash, and discoloration, Neuro: Negative for headache, weakness, numbness, tingling, and seizure, Psych: Negative for depression, anxiety, suicide ideation, homicidal ideation, and hallucinations, Allergy/Immunology: Negative for hives, rash, and allergies, Endocrine: Negative for neck swelling, polydipsia, polyuria, polyphagia, and marked weight changes, Hematologic/Lymphatic: Negative for swollen nodes, abnormal bleeding, and unusual bruising. Exam: 06:39 Head/Face: Normocephalic, atraumatic. Eyes: Pupils equal round and reactive to light, mh7 extra-ocular motions intact. Lids and lashes normal. Conjunctiva and sclera are non-icteric and not injected. Cornea within normal limits. Periorbital areas with no swelling, redness, or edema. Neck: Trachea midline, no thyromegaly or masses palpated, and no cervical lymphadenopathy. Supple, full range of motion without nuchal rigidity, or vertebral point tenderness. No Meningismus. Chest/axilla: Normal chest wall appearance and motion. Nontender with no deformity. No lesions are appreciated. 06:39 Abdomen/GI: Soft, non-tender, with normal bowel sounds. No distension or tympany. No guarding or rebound. No evidence of tenderness throughout. Back: No spinal tenderness. No costovertebral tenderness. Full range of motion. Skin: Warm, dry with normal turgor. Normal color with no rashes, no lesions, and no evidence of cellulitis. MS/ Extremity: Pulses equal, no cyanosis. Neurovascular intact. Full, normal range of motion. 06:39 Constitutional: The patient appears alert, awake, in obvious distress, mildly distressed. 06:39 Cardiovascular: Rate: tachycardic, Rhythm: regular, Pulses: no pulse deficits are appreciated, Heart sounds: normal, normal S1and S2, Edema: is not appreciated, JVD: is not appreciated. 06:39 Respiratory: mild respiratory distress is noted, Respirations: prolonged exhalation, that is moderate, tachypnea, that is mild, Breath sounds: rhonchi, that are moderate, are heard diffusely, wheezing: expiratory that is moderate, is heard diffusely, Respiratory rate: 30 06:39 Neuro: Orientation: appropriate for stated age, Mentation: appropriate for stated age, mh7 Memory: appropriate for stated age, Cranial nerves: grossly normal, Cerebellar function: is grossly normal, Motor: is normal, Sensation: is normal, Gait: not tested. seizure activity, is not displayed by the patient, Abnormal movements: there are no abnormal movements. Vital Signs: 06:24 BP 80 / 49; Pulse 100; Resp 22; jg9 06:28 BP 80 / 49; Pulse 106; Resp 31 S; Temp 98.5(O); Pulse Ox 97% on 3 lpm NC; Weight 81.65 as6 kg (R); Height 5 ft. 10 in. (177.80 cm) (R); Pain 0/10; 06:30 BP 81 / 50; Pulse 101; Resp 28; Pulse Ox 97% on BiPAP; jg9 07:02 BP 88 / 54; Pulse 100; Resp 27; Pulse Ox 97% on BiPAP; jg9 08:03 BP 104 / 61; Pulse 93; Resp 27; Pulse Ox 93% on BiPAP; jg9 09:00 BP 110 / 65; Pulse 92; Resp 26 S; Pulse Ox 94% on BiPAP; jg9 10:30 BP 102 / 57; Pulse 89; Resp 24 S; Pulse Ox 90% on BiPAP; jg9 06:28 Body Mass Index 25.83 (81.65 kg, 177.80 cm) as6 MDM: 07:03 Transition of care: After a detail discussion of the patient's case, care is 7 transferred to Chandler Nielsen MD. 07:21 Patient medically screened. rn 07:59 Differential diagnosis: Chronic Obstructive Pulmonary Disease pneumonia, Pneumothorax rn pulmonary edema, Sepsis. Data reviewed: vital signs, nurses notes, lab test result(s), EKG, radiologic studies. 08:04 Counseling: I had a detailed discussion with the patient and/or guardian regarding: the rn historical points, exam findings, and any diagnostic results supporting the discharge/admit diagnosis, lab results, radiology results, the need for further work-up and treatment in the hospital. Response to treatment: the patient's symptoms have mildly improved after treatment, and as a result, I will admit patient. Admission orders: after a detailed discussion of the patient's condition and case, the admit orders are written by me. 08:20 ED course: BP improving after IV fluid bolus and steroids.. rn 11/22 06:35 Order name: Basic Metabolic Panel; Complete Time: 07: [facility] 11/22 06:35 Order name: CBC with Diff; Complete Time: 07: [facility] 11/22 06:35 Order name: LFT's; Complete Time: 07: [facility] 11/22 06:35 Order name: Magnesium; Complete Time: 07: [facility] 11/22 06:35 Order name: NT PRO-BNP; Complete Time: 07:31 [facility] 11/22 06:35 Order name: PT-INR; Complete Time: 07:54 [facility] 11/22 06:35 Order name: Troponin HS; Complete Time: 07:31 [facility] 11/22 06:35 Order name: Arterial Blood Gas; Complete Time: 07:01 [facility] 11/22 06:37 Order name: Blood Culture Adult (2) [facility] 11/22 06:37 Order name: Lactate; Complete Time: 07:31 [facility] 11/22 06:37 Order name: Procalcitonin; Complete Time: 07:54 [facility] 11/22 06:51 Order name: COVID-19/FLU A+B (Document "Date of Onset" if Symptomatic); Complete Time: as6 19:05 02 09:35 Order name: Basic Metabolic Panel [facility] 11/22 09:35 Order name: Basic Metabolic Panel [facility] 11/22 06:35 Order name: XRAY Chest (1 view); Complete Time: 19:05 [facility] 11/22 06:35 Order name: EKG; Complete Time: 06:35 [facility] 11/22 06:35 Order name: BIPAP [facility] 11/22 09:33 Order name: CONS Physician Consult [facility] 11/22 09:35 Order name: Physical Therapy Consult [facility] 11/22 09:35 Order name: CBC with Automated Diff EDMS 11/22 09:35 Order name: CBC with Automated Diff MS 11/22 09:35 Order name: Magnesium EDMS 11/22 09:35 Order name: Magnesium MS 11/22 06:35 Order name: Cardiac monitoring; Complete Time: 06:36 [facility] 11/22 06:35 Order name: EKG - Nurse/Tech; Complete Time: 06:42 [facility] 11/22 06:35 Order name: IV Saline Lock; Complete Time: 06:42 [facility] 11/22 06:35 Order name: Labs collected and sent; Complete Time: 06:51 [facility] 11/22 06:35 Order name: O2 Per Protocol; Complete Time: 06:36 [facility] 11/22 06:35 Order name: O2 Sat Monitoring; Complete Time: 06:36 [facility] 11/22 07:09 Order name: Labs - recollect needed: hemolyzed and short; Complete Time: 07:31 04/02 09:35 Order name: Heart Healthy EDMO Administered Medications: 06:54 Drug: Albuterol 2.5 mg Route: Inhalation; as6 10:58 Follow up: Response: No adverse reaction jg9 06:54 Drug: AtroVENT (ipratropium) Aerosol 0.5 mg Route: Inhalation; as6 10:58 Follow up: Response: No adverse reaction jg9 06:54 Drug: NS 0.9% 1000 ml Route: IV; Rate: 125 ml/hr; Site: left hand; as6 06:54 Drug: SOLU-Medrol (methylPrednisoLONE) 125 mg Route: IVP; Site: left hand; as6 07:03 Follow up: Response: No adverse reaction [place] 07:44 Drug: NS 0.9% 1000 ml Route: IV; Rate: 1000 ml; Site: left upper arm; [place] 07:44 Drug: Magnesium Sulfate 1 grams Route: IVPB; Infused Over: 1 hrs; Site: left upper arm; [place] 10:57 Follow up: Response: No adverse reaction; IV Status: Completed infusion jg9 07:44 Drug: Solu-CORTEF (hyrdoCORTISONE) 100 mg Route: IVP; Site: left upper arm; [place] 07:45 Follow up: Response: No adverse reaction [place] Disposition: 08:04 Critical Care:. 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 Total time: 35 rn minutes Signatures: Dispatcher [employer] [facility] Severo Nielsen MD MD rn Botello, Elizabeth eb Holmes, Maurice, MD MD mh7 Gerardo Chiang RN RN as6 Alysia Sadler RN Sushma Schneider RN jg9 Corrections: (The following items were deleted from the chart) 10:49 08:05 rn eb
[2021-11-22 08:57] LABS: SARS-COV-2 RT PCR NEGATIVE (NEGATIVE)
--- NOTE | 2021-11-22 09:40 | P.HP ---
Certification for Inpatient Patient admitted to: Inpatient With expected LOS: >2 Midnights Practitioner: I am a practitioner with admitting privileges, knowledge of patient current condition, hospital course, and medical plan of care. Services: Services provided to patient in accordance with Admission requirements found in Title 42 Section 412.3 of the Code of Federal Regulations Patient History Date of Service: 11/22/21 Reason for admission: hypotension, hypoxia History of Present Illness: 66yo M, PMH: COPD, HTN who was recently discharged overnight to SNF returns to ED due to being found hypotensive and hypoxic at SNF. BP: 80/50. Patient states he feels ok, no significant change in breathing or how he feels compared to when he left the hospital. Denies any changes since discharge. Does seem to be mildly confused - denies having to wear O2. However, review of EMR shows patient was requiriing 3-3.5L NC on day of discharge. Unclear if patient was on room air or on oxygen at SNF. CXR without any acute findings. Lab work unchanged. ED physician requests admission for further management. Patient was placed on BIPAP in the ER. Allergies No Known Allergies Allergy (Unverified 10/26/20 23:41) Home Medications: Amlodipine [Norvasc*] 10 mg PO DAILY 10/28/20 Fluticasone/Umeclidin/Vilanter [Trelegy Ellipta 100-62.5-25] 1 each IH DAILY 10/28/20 Arformoterol Tartrate [Brovana] 15 mcg NEB BIDRESP vial.neb 11/04/20 Ipratropium Neb [Atrovent*] 0.5 mg NEB Q6HP PRN amp 11/04/20 Nicotine [Nicoderm*] 21 mg TD DAILY patch.td24 11/04/20 Propranolol [Inderal*] 10 mg PO BID tab 11/04/20 Tamsulosin [Flomax*] 0.4 mg PO DAILY cap 11/04/20 Thiamine HCl [Vitamin B-1*] 100 mg PO DAILY tablet 11/04/20 lisinopriL [Prinivil*] 20 mg PO DAILY tab 11/04/20 predniSONE [Deltasone*] 10 mg PO SEECOM 14 Days #21 tab 07/18/21 - Past Medical/Surgical History Diabetic: No -: COPD -: Hypertension -: Alcohol abuse -: Hyponatremia -: Hernia repair Psychosocial/ Personal History: 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 - Social History Smoking Status: Former smoker Alcohol use: Yes CD- Drugs: No Caffeine use: Yes Review of Systems 10-point ROS is otherwise unremarkable Physical Examination - Physical Exam General: Alert, In no apparent distress, Oriented x3 HEENT: Sclerae nonicteric Respiratory: Expiratory wheezes, Other (on BIPAP) Cardiovascular: No edema, Regular rate/rhythm Gastrointestinal: Soft and benign, Non-distended, No tenderness Musculoskeletal: No erythema Integumentary: No rashes, No significant lesion Neurological: Normal speech, Normal affect - Studies Laboratory Data (last 24 hrs) 11/22/21 07:22: PT 9.8, INR 0.89 11/22/21 06:44: WBC 11.3 H D, Hgb 14.3, Hct 43.7, Plt Count 174 11/22/21 06:44: Sodium 132 L, Potassium 4.6, BUN 51 H, Creatinine 1.43 H, Glucose 168 H, Magnesium 2.1, Total Bilirubin 0.2, AST 5 L, ALT 24, Alkaline Phosphatase 51 Assessment and Plan - Advance Directives Does patient have a Living Will: No Does patient have a Durable POA for Healthcare: No Physician Review Additional Text: Problem List acute on chronic hypoxemic respiratory failure secondary to COPD exacerbation Hypotension, h/o hypertension ELIANE Hyponatremia, chronic h/o alcohol dependence nicotine dependence BPH patient recently discharged overnight to SNF hypoxic and hypotensive, sent back to ED; BP: 80/50 suspect symptoms secondary to hypotension / volume depletion BP improving in ED with IV fluid Patient feels the same as when he was discharged, denies any distress hypoxic in 80s on oxygen; pulm consulted placed on BIPAP on ED, wean as tolerated to 3-4L NC he was wearing at discharge ELIANE, suspect prerenal / hypovolemia, s/p bolus in ED, monitor closely, hold anti-hypertensives, IVF as needed nephrology consulted continue home thiamine, flomax VTE: lovenox Code: full Dispo: anticipate dc back to SNF in 1-2 days Time Spent Managing Pts Care (In Minutes): 60
--- NOTE | 2021-11-22 10:04 | RAD REPORT ---
EXAM DESCRIPTION: RAD - Chest Single View - 11/22/2021 8:50 am CLINICAL HISTORY: SOB COMPARISON: Portable 11/14/2021, 11/12/2021 and 07/17/2021 TECHNIQUE: AP portable chest image was obtained 11/22/2021 8:50 am. FINDINGS: Lung volumes are low accentuating baseline interstitial pattern. Nodular density overlies the right lung base and right hemidiaphragm. This could be part of the lung base atelectasis process. Focal mass at the lung bases cannot be excluded. There has been variable appearance to the right zeyad g base on the multiple limited prior studies. Follow up two view chest exam is recommended when the p atient can have optimal inspiration. Alternatively, CT chest imaging can be performed. Heart and vasculature are normal. No measurable pleural effusion and no pneumothorax. No acute bony a bnormality seen. No acute aortic findings suspected. Right base findings telephoned to Dr Nielsen 9:59 a.m.. IMPRESSION: Nodular right lung base finding needs follow up with either two view chest or CT chest. No acute infiltrate or pulmonary edema.
--- NOTE | 2021-11-22 11:22 | P.CNS ---
Date of Consult: 11/22/21 Reason for Consult: renal failure Requesting Physician: Chandler Nielsen Chief Complaint: hypotension, hypoxia History of Present Illness: 66M w/ PMHx of Htn, COPD, & ETOH abuse who was dc yesterday from hospital after hospital stay for COPD exacerbation w/ hyponatremia, who was found hypotensive & hypoxic at the snf, now readmitted for further eval & mngt. He is referred to Nephrology for ELIANE w/ SCr on adm at 1.4. He received IV fluids & BP now stable. Allergies No Known Allergies Allergy (Unverified 10/26/20 23:41) Home Medications: Amlodipine [Norvasc*] 10 mg PO DAILY 10/28/20 Fluticasone/Umeclidin/Vilanter [Trelegy Ellipta 100-62.5-25] 1 each IH DAILY 10/28/20 Arformoterol Tartrate [Brovana] 15 mcg NEB BIDRESP vial.neb 11/04/20 Ipratropium Neb [Atrovent*] 0.5 mg NEB Q6HP PRN amp 11/04/20 Nicotine [Nicoderm*] 21 mg TD DAILY patch.td24 11/04/20 Propranolol [Inderal*] 10 mg PO BID tab 11/04/20 Tamsulosin [Flomax*] 0.4 mg PO DAILY cap 11/04/20 Thiamine HCl [Vitamin B-1*] 100 mg PO DAILY tablet 11/04/20 lisinopriL [Prinivil*] 20 mg PO DAILY tab 11/04/20 predniSONE [Deltasone*] 10 mg PO SEECOM 14 Days #21 tab 07/18/21 - Past Medical/Surgical History Diabetic: No -: COPD -: Hypertension -: Alcohol abuse -: Hyponatremia -: Hernia repair Psychosocial/ Personal History: 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 - Social History Smoking Status: Current every day smoker Alcohol use: Yes CD- Drugs: No Caffeine use: Yes Review of Systems General: Weakness Eyes: Unremarkable ENT: Unremarkable Respiratory: Shortness of Breath Cardiovascular: Other (hypotension) Gastrointestinal: Unremarkable Genitourinary: Unremarkable Musculoskeletal: Unremarkable Integumentary: Unremarkable Neurological: Confusion Lymphatics: Unremarkable Physical Examination General: In no apparent distress HEENT: Atraumatic, Normocephalic Neck: Supple, JVD not distended Respiratory: Other (symmetric chest expansion) Cardiovascular: No rubs, No murmurs Gastrointestinal: Soft and benign Musculoskeletal: No clubbing Integumentary: No warmth Neurological: Normal speech, Normal tone Lymphatics: No axilla or inguinal lymphadenopathy Urinary: Other (no bladder distention) External genitalia: Deferred Rectal: Deferred Laboratory Data (last 24 hrs) 11/22/21 07:22: PT 9.8, INR 0.89 11/22/21 06:44: WBC 11.3 H D, Hgb 14.3, Hct 43.7, Plt Count 174 11/22/21 06:44: Sodium 132 L, Potassium 4.6, BUN 51 H, Creatinine 1.43 H, Glucose 168 H, Magnesium 2.1, Total Bilirubin 0.2, AST 5 L, ALT 24, Alkaline Phosphatase 51 Conclusions/Impression: # ELIANE 2/2 hypotension/ischemic ATN +/- prerenal state Baseline SCr 0.6 to 0.9 as of 11/17/21 SCr 1.4 on adm F/u random urine chem & upcr IV/PO hydration # Hypotonic, chronic, symptomatic, severe hyponatremia 2/2 low solute intake/beer potomania, prerenal state, & high ADH state from acute respiratory issues Serum Na 132 on adm BNP chronically elevated. Avoid/minimize Na-containing IV fluid or NaCl tabs. Advised on adeq po solid food intake tid If po solid food intake is poor, add Ure-Na 30g po bid Avoid/minimize Benzo Avoid Trazodone. May give ambien prn for insomnia. [place] po fluid intake # Recurrent acute respiratory failure 2/2 COPD exacerbation +/- CHF +Cig smoker, +obesity BiPAP, O2 suppl prn # Hypotension likely 2/2 volume depletion BP improved w/ IV fluid Hold BP meds [place] po fluid intake Monitor # Alcohol abuse +Fatty liver on imaging ETOH cessation advised
[2021-11-22] MEDS: IPRATROPIUM BROM 0.5MG/2.5ML NEB SCH ×2 (14:16→20:00)
[2021-11-22] MEDS: ALBUTEROL 2.5 MG/3 ML NEB SOL NEB SCH ×2 (14:16→20:00)
[2021-11-22] MEDS: ENOXAPARIN 40 MG/0.4 ML SQ SCH (14:22)
[2021-11-22] MEDS: TAMSULOSIN 0.4 MG SR CAP PO SCH (14:22)
[2021-11-22 16:16] VITALS: BMI 25.8
[2021-11-22] MEDS: ARFORMOTEROL TARTRATE 15 MCG/2 ML VIAL.NEB NEB SCH (20:00)
[2021-11-22] MEDS: METHYLPREDNISOLONE 40 MG INJ IV SCH (20:44)
[2021-11-23] MEDS: ALBUTEROL 2.5 MG/3 ML NEB SOL NEB SCH ×4 (02:15→20:20)
[2021-11-23] MEDS: IPRATROPIUM BROM 0.5MG/2.5ML NEB SCH ×4 (02:15→20:20)
--- NOTE | 2021-11-23 05:34 | P.PN ---
Subjective Date of Service: 11/23/21 Chief Complaint: hypotension, hypoxia Subjective: No new changes Physical Examination - Vital Signs Temperature: 97.8 F Blood Pressure: 123/70 Pulse: 93 Respirations: 18 Pulse Ox (%): 91 - Physical Exam General: Other (appears as his stated age) HEENT: Atraumatic, Normocephalic Neck: Supple, JVD not distended Respiratory: Other (symmetric chest expansion) Cardiovascular: No rubs, No murmurs Gastrointestinal: Soft and benign, No guarding Musculoskeletal: No clubbing Integumentary: No warmth Neurological: Normal tone Urinary: Other (no bladder distention) External genitalia: Deferred Rectal: Deferred - Studies Laboratory Data (last 24 hrs) 11/22/21 07:22: PT 9.8, INR 0.89 11/22/21 06:44: WBC 11.3 H D, Hgb 14.3, Hct 43.7, Plt Count 174 11/22/21 06:44: Sodium 132 L, Potassium 4.6, BUN 51 H, Creatinine 1.43 H, Glucose 168 H, Magnesium 2.1, Total Bilirubin 0.2, AST 5 L, ALT 24, Alkaline Phosphatase 51 Assessment And Plan - Plan # ELIANE 2/2 hypotension/ischemic ATN +/- prerenal state Baseline SCr 0.6 to 0.9 as of 11/17/21 SCr 1.4 on adm, improved to 0.8 today Urine chem no longer prerenal +Min proteinuria 0.3g Dc IV fluid Encouraged [place] po fluid intake # Hypotonic, chronic, symptomatic, severe hyponatremia 2/2 low solute intake/beer potomania, prerenal state, & high ADH state from acute respiratory issues Serum Na 132 on adm BNP chronically elevated. Avoid/minimize Na-containing IV fluid or NaCl tabs. Advised on adeq po solid food intake tid If po solid food intake is poor, add Ure-Na 30g po bid Avoid/minimize Benzo Avoid Trazodone. May give ambien prn for insomnia. [place] po fluid intake # Borderline hyperkalemia Give Lasix 40 mg IV x 1 # Recurrent acute respiratory failure 2/2 COPD exacerbation +/- CHF +Cig smoker, +obesity ABG on 11/22 showed primary chronic respi acidosis, +hypoxia BiPAP, O2 suppl prn OOB several times daily Incentive spirometry q2h when awake # Hypotension likely 2/2 volume depletion BP improved w/ IV fluid Hold BP meds [place] po fluid intake Monitor # Alcohol abuse +Fatty liver on imaging ETOH cessation advised
[2021-11-23 06:00] LABS: Absolute Lymphocytes (CBC) 0.5 K/uL (0.7-4.9); Hematocrit 44.1 % (39.6-49.0); Lymphocytes % 4.6 % (15.3-44.8); MPV 7.5 fL (7.6-11.3); RBC Red Blood Cell Count 4.51 M/uL (4.33-5.43)
[2021-11-23 06:06] LABS: BUN Blood Urea Nitrogen 28 mg/dL (7-18); Bicarbonate 33 mmol/L (21-32); Glucose Level 143 mg/dL (74-106); Magnesium 2.4 mg/dL (1.8-2.4); Potassium 5.2 mmol/L (3.5-5.1); Sodium Level 137 mmol/L (136-145)
[2021-11-23 06:32] LABS: UR PROTEIN 6.5 mg/dL (<11.9); Urine Protein/Creatinine Ratio 0.3 ratio (<0.15)
--- NOTE | 2021-11-23 06:54 | P.PN ---
Date of Service: 11/23/21
[2021-11-23 06:58] LABS: Platelet Estimate ADEQ; White Blood Cell Scan OK (OK)
[2021-11-23 06:59] LABS: Blood Morphology Comment NOT SEEN (NOT SEEN)
[2021-11-23] MEDS: ARFORMOTEROL TARTRATE 15 MCG/2 ML VIAL.NEB NEB SCH ×2 (07:45→20:20)
[2021-11-23] MEDS ORDERED: INFLUENZA VACCINE (for 6+ mo) 0.5 ML DOSE IMVAC ONE (08:00)
[2021-11-23] MEDS ORDERED: PNEUMOCOCCAL VACCINE 0.5 ML IMVAC ONE (08:00)
[2021-11-23] MEDS: TAMSULOSIN 0.4 MG SR CAP PO SCH (08:30)
[2021-11-23] MEDS: NICOTINE 21 MG/PAT TD SCH (08:31)
[2021-11-23] MEDS: METHYLPREDNISOLONE 40 MG INJ IV SCH ×2 (08:31→20:32)
[2021-11-23] MEDS: THIAMINE HCL 100 MG TABLET PO SCH (08:31)
[2021-11-23] MEDS: ENOXAPARIN 40 MG/0.4 ML SQ SCH (08:32)
[2021-11-23] MEDS: HOME MED 1 EA UNK (Fluticasone/Umeclidin/Vilanter [Trelegy Ellipta 100-62.5-25] Blst.W.Dev IH SCH (08:32)
[2021-11-23] MEDS ORDERED: FUROSEMIDE 40 MG/4 ML VIAL IV STA (09:52)
[2021-11-23 12:06] LABS: BUN Blood Urea Nitrogen 25 mg/dL (7-18); Bicarbonate 35 mmol/L (21-32); Glucose Level 127 mg/dL (74-106); Potassium 5.3 mmol/L (3.5-5.1); Sodium Level 135 mmol/L (136-145)
--- NOTE | 2021-11-23 20:53 | P.PN ---
Subjective Date of Service: 11/23/21 Chief Complaint: COPD Subjective: Improving (Doign well no new complaints) Review of Systems Unremarkable Physical Examination - Vital Signs Temperature: 98.4 F Blood Pressure: 128/61 Pulse: 114 Respirations: 18 Pulse Ox (%): 90 - Physical Exam General: Alert, In no apparent distress, Oriented x3 Respiratory: Expiratory wheezes Cardiovascular: No edema, Normal pulses Assessment And Plan - Current Problems (Diagnosis) (1) COPD exacerbation Current Visit: No Status: Acute (2) SHAWANDA inhibitor nephrotoxicity Current Visit: Yes Status: Acute Plan: Stop Shawanda causing hyperkalemia and renal failure - Plan Readmission with COPD. Stable right now. Likely SHAWANDA nephrotoxicity/ Plan for DC am Avoid SHAWANDA. Replace with Norvasc/ Meds and las reiewed. Potassium elevated repeeat K/ Change to PO pred and pland for dischare am
[2021-11-23] MEDS: predniSONE 20 MG TAB PO SCH (20:55)
[2021-11-24] MEDS: IPRATROPIUM BROM 0.5MG/2.5ML NEB SCH ×4 (02:00→20:25)
[2021-11-24] MEDS: ALBUTEROL 2.5 MG/3 ML NEB SOL NEB SCH ×4 (02:00→20:25)
[2021-11-24] MEDS: ARFORMOTEROL TARTRATE 15 MCG/2 ML VIAL.NEB NEB SCH ×2 (08:49→20:25)
[2021-11-24] MEDS: HOME MED 1 EA UNK (Fluticasone/Umeclidin/Vilanter [Trelegy Ellipta 100-62.5-25] Blst.W.Dev IH SCH (09:00)
[2021-11-24] MEDS: NICOTINE 21 MG/PAT TD SCH (10:15)
[2021-11-24] MEDS: THIAMINE HCL 100 MG TABLET PO SCH (10:15)
[2021-11-24] MEDS: TAMSULOSIN 0.4 MG SR CAP PO SCH (10:15)
[2021-11-24] MEDS: ENOXAPARIN 40 MG/0.4 ML SQ SCH (10:15)
[2021-11-24] MEDS: predniSONE 20 MG TAB PO SCH ×2 (10:15→22:13)
--- NOTE | 2021-11-24 11:17 | EKG ---
Test Date: 2021-11-22 Test Time: 06:42:40 Clinical Assoc: MEASUREMENT RESULTS: Intervals: Rate: 103 SC: 160 QRSD: 88 QT: 338 QTc: 442 [place]: P: 62 SC: 160 QRS: 38 T: 54 INTERPRETIVE STATEMENTS: Sinus tachycardia with frequent premature ventricular complexes Otherwise normal ECG Compared to ECG 11/11/2021 08:04:03 Sinus rhythm no longer present First degree AV block no longer present Atrial abnormality no longer present Incomplete right bundle-branch block no longer present Electronically Signed On 11-24-21 11:12:56 CDT by John Marie
--- NOTE | 2021-11-24 14:25 | P.PN ---
Subjective Date of Service: 11/24/21 Chief Complaint: COPD Patient has no new complaint. He states he feels well. He is generally weak and needing assistance with transfers. Physical Examination - Vital Signs Temperature: 96.8 F Blood Pressure: 141/71 Pulse: 91 Respirations: 16 Pulse Ox (%): 95 Assessment And Plan - Plan Physical Exam General: Alert, Oriented x3, NAD HEENT: Sclerae nonicteric Neck: Supple, No LAD Respiratory: Clear to auscultation bilaterally, Normal air movement Cardiovascular: No edema, Regular rate/rhythm Gastrointestinal: Soft and benign, Non-distended. Integumentary: No rashes, No significant lesion Neurological: Normal speech, Normal strength at 5/5 x4 extr, Normal affect, mild hand tremors Problem List acute on chronic hypoxemic respiratory failure secondary to COPD exacerbation Hypotension, h/o hypertension ELIANE Hyponatremia, chronic h/o alcohol dependence nicotine dependence BPH Plan: Bounce back from SNF same day of discharge due to hypotension. Blood pressure has been stable since readmitted. Hypotension likely secondary to volume depletion with associated ELIANE. ELIANE resolved. hypoxic in 80s on oxygen on arrival. Status post BiPAP. Patient currently tolerating oxygen by nasal cannula. Pulmonary is following. nephrology is following continue home thiamine, flomax. Patient tolerating physical therapy. Continue PT He is stable for transfer back to SNF.
[2021-11-24 14:32] LABS: Potassium 4.7 mmol/L (3.5-5.1)
[2021-11-25] MEDS: ALBUTEROL 2.5 MG/3 ML NEB SOL NEB SCH ×4 (01:35→20:20)
[2021-11-25] MEDS: IPRATROPIUM BROM 0.5MG/2.5ML NEB SCH ×4 (01:35→20:20)
--- NOTE | 2021-11-25 02:17 | PN ---
Date of Progress Note: 11/24/2021 Chief Complaint: Acute kidney injury secondary to hypotension causing prerenal azotemia and ischemic ATN. Subjective: Renal function has improved. Serum creatinine baseline was ranging previously and from 0.6-0.9. On admission serum creatinine was up to 1.4, and has improved to 0.8. Review of Systems: The patient denies complaints. Objective: Lungs: Clear to auscultation bilaterally. Heart: S1, S2. Abdomen: Soft. Benign. Extremities: No edema. Impression And Plan: 1.Acute kidney injury secondary to prerenal azotemia, nonoliguric acute tubular necrosis. The patie nt was found to have hyponatremia with sodium of 132. This may be due to congestive heart failure. The patient may benefit from diuretic. Continue to monitor electrolytes. 2.Acute kidney injury has resolved. Monitor renal function and continue to avoid nonsteroidal anti- inflammatory medication. The patient was found to have severe hyponatremia due to low salt intake, b eer potomania, and congestive heart failure picture. The patient will continue p.o. fluid restrictio n. The patient was started on a high protein intake to facilitate treatment of hyponatremia. The axel nunn also has treatment with Ure-Na 30 g p.o. b.i.d. Plan is to avoid trazodone. The patient may h ave Ambien as needed for insomnia. As far as fluid intake, the patient currently is well hydrated an d he does not need p.o. fluid restriction. Hyponatremia primarily was due to low salt intake and t at this point is adjusted to avoid electrolyte deficits. The patient had beer potomania. Alcohol cessation was advised by Primary Team. The patient was found to have fatty liver on imaging, which is likely secondary to alcohol. EB/MODL Voice ID: [id number] Report ID: [id number]
[2021-11-25 05:46] LABS: Hematocrit 48.2 % (39.6-49.0); Lymphocytes % 11.9 % (15.3-44.8); MPV 7.6 fL (7.6-11.3); RBC Red Blood Cell Count 4.87 M/uL (4.33-5.43)
[2021-11-25 06:00] LABS: BUN Blood Urea Nitrogen 20 mg/dL (7-18); Bicarbonate 38 mmol/L (21-32); Glucose Level 98 mg/dL (74-106); Potassium 5.2 mmol/L (3.5-5.1); Sodium Level 134 mmol/L (136-145)
[2021-11-25] MEDS: ARFORMOTEROL TARTRATE 15 MCG/2 ML VIAL.NEB NEB SCH ×2 (08:48→20:20)
[2021-11-25] MEDS: HOME MED 1 EA UNK (Fluticasone/Umeclidin/Vilanter [Trelegy Ellipta 100-62.5-25] Blst.W.Dev IH SCH (09:00)
[2021-11-25] MEDS: NICOTINE 21 MG/PAT TD SCH (09:00)
[2021-11-25] MEDS: THIAMINE HCL 100 MG TABLET PO SCH (10:29)
[2021-11-25] MEDS: predniSONE 20 MG TAB PO SCH ×2 (10:29→20:54)
[2021-11-25] MEDS: TAMSULOSIN 0.4 MG SR CAP PO SCH (10:29)
[2021-11-25] MEDS: ENOXAPARIN 40 MG/0.4 ML SQ SCH (10:30)
--- NOTE | 2021-11-25 17:24 | PN ---
Date of Progress Note: 11/25/2021 Subjective: The patient was admitted with hyponatremia secondary to beer potomania, recovered, resol vanessa. The patient was transferred to [facility], developed hypotension, so for that reason, the pat ient transferred back. Physical Examination: Vital Signs: When I saw the patient; blood pressure 121/77, pulse of 91. Chest: Clear to auscultation. Heart: S1, S2. Regular. Abdomen: Soft, nontender. Extremity: Trace edema. Neurologic: Alert. No focal. Laboratory Data: WBC 8.4, H and H 15.9/48.2. Sodium 134, potassium 5.2, bicarb 38, BUN 20, creatini ne 0.8, calcium 8.9, magnesium 2.1. Assessment And Plan: 1.Hyponatremia secondary to beer potomania. Off salt tablet. We will continue to monitor. 2.Marginal hyperkalemia. No symptoms. We will monitor. 3.Hypotension, currently the patient off all blood pressure medications. Blood pressure has been st able. We will follow up. 4.Acute kidney injury secondary to prerenal, recovered, resolved. 5.Alcohol intoxication as by primary. 6.Hypotension, possible secondary to Flomax. I am going to go ahead and hold the Flomax and we will follow up. ALEX/NORA Voice ID: [id number] Report ID: [id number]
--- NOTE | 2021-11-25 19:30 | P.PN ---
Subjective Date of Service: 11/25/21 Chief Complaint: COPD Patient has no new complaint. He states he feels well. He walked about 150 feet with with a walker during physical therapy today. Physical Examination - Vital Signs Temperature: 97.7 F Blood Pressure: 117/70 Pulse: 89 Respirations: 20 Pulse Ox (%): 97 Assessment And Plan - Plan Physical Exam General: Alert, Oriented x3, NAD HEENT: Sclerae nonicteric Neck: Supple, No LAD Respiratory: Clear to auscultation bilaterally, Normal air movement Cardiovascular: No edema, Regular rate/rhythm Gastrointestinal: Soft and benign, Non-distended. Integumentary: No rashes, No significant lesion Neurological: Normal speech, Normal strength at 5/5 x4 extr, Normal affect, mild hand tremors Problem List acute on chronic hypoxemic respiratory failure secondary to COPD exacerbation Hypotension, h/o hypertension ELIANE Hyponatremia, chronic h/o alcohol dependence nicotine dependence BPH Plan: Blood pressure has been stable since readmitted. Hypotension likely secondary to volume depletion with associated ELIANE. ELIANE resolved. Hypoxic in 80s on oxygen on arrival. Status post BiPAP. Currently stable on oxygen by nasal cannula. Pulmonary is following. Nephrology is following. Continue home thiamine, flomax. Patient tolerating physical therapy and progressively improving in functional status. Continue PT He is stable for transfer back to SNF.
[2021-11-26] MEDS: IPRATROPIUM BROM 0.5MG/2.5ML NEB SCH ×3 (01:40→15:05)
[2021-11-26] MEDS: ALBUTEROL 2.5 MG/3 ML NEB SOL NEB SCH ×3 (01:40→15:05)
[2021-11-26 05:53] LABS: Absolute Lymphocytes (CBC) 1.1 K/uL (0.7-4.9); Hematocrit 43.9 % (39.6-49.0); MPV 7.2 fL (7.6-11.3); RBC Red Blood Cell Count 4.46 M/uL (4.33-5.43)
[2021-11-26 06:07] LABS: BUN Blood Urea Nitrogen 22 mg/dL (7-18); Bicarbonate 38 mmol/L (21-32); Glucose Level 115 mg/dL (74-106); Potassium 4.3 mmol/L (3.5-5.1); Sodium Level 136 mmol/L (136-145)
[2021-11-26] MEDS: ARFORMOTEROL TARTRATE 15 MCG/2 ML VIAL.NEB NEB SCH (08:08)
[2021-11-26] MEDS: NICOTINE 21 MG/PAT TD SCH (09:00)
[2021-11-26] MEDS: HOME MED 1 EA UNK (Fluticasone/Umeclidin/Vilanter [Trelegy Ellipta 100-62.5-25] Blst.W.Dev IH SCH (09:00)
[2021-11-26] MEDS: THIAMINE HCL 100 MG TABLET PO SCH (10:55)
[2021-11-26] MEDS: ENOXAPARIN 40 MG/0.4 ML SQ SCH (10:55)
[2021-11-26] MEDS: predniSONE 20 MG TAB PO SCH (10:55)
[2021-11-26 13:45] VITALS: BP 131/70; TEMP 97.6
--- NOTE | 2021-11-26 14:56 | P.DS ---
Admission Date: 11/22/21 Discharge Date: 11/26/21 Disposition: TRANSFER TO [facility] Discharge Condition: FAIR Reason for Admission: COPD Brief History of Present Illness: 66yo M, PMH: COPD, HTN who was recently discharged overnight to SNF returned to ED due to being found hypotensive and hypoxic at SNF. BP: 80/50. Patient stated he felt ok, no significant change in breathing or how he feels compared to when he left the hospital. Review of EMR showed patient was requiring 3-3.5L NC on day of discharge. Unclear if patient was on room air or on oxygen at SNF. CXR without any acute findings. Lab work unchanged. Patient was placed on BiPAP and admitted for further management. Hospital Course: Problem List Acute on chronic hypoxemic respiratory failure secondary to COPD exacerbation Hypotension, h/o hypertension ELIANE Hyponatremia, chronic h/o alcohol dependence nicotine dependence BPH Plan: Blood pressure was stable since readmission Hypotension likely secondary to volume depletion with associated ELIANE. ELIANE resolved. Hypoxic in 80s on oxygen on arrival. Status post BiPAP. Currently stable on oxygen by nasal cannula. Seen and evaluated by pulmonary and nephrology Continued home dose thiamine and flomax. Patient was awake and alert during the hospital stay. He tolerated physical therapy and he is progressively improving in functional status. He is stable for transfer back to SNF. Vital Signs/Physical Exam: Temp Pulse Resp BP Pulse Ox 97.6 F 82 18 131/70 98 11/26/21 12:00 11/26/21 12:00 11/26/21 12:00 11/26/21 12:00 11/26/21 12:00 General: Alert, In no apparent distress, Oriented x3 HEENT: Mucous membr. moist/pink Neck: Supple, JVD not distended Respiratory: Clear to auscultation bilaterally, Normal air movement, Diminished Cardiovascular: Regular rate/rhythm, Normal S1 S2 Capillary refill: <2 Seconds Gastrointestinal: Soft and benign, Non-distended, No tenderness Musculoskeletal: No swelling Integumentary: No rashes Neurological: Normal strength at 5/5 x4 extr Laboratory Data at Discharge: WBC 8.5 K/uL (4.3-10.9) 11/26/21 05:24 Hgb 14.4 g/dL (13.6-17.9) 11/26/21 05:24 Hct 43.9 % (39.6-49.0) 11/26/21 05:24 Plt Count 252 K/uL (152-406) 11/26/21 05:24 PT 9.8 SECONDS (9.5-12.5) 11/22/21 07:22 INR 0.89 11/22/21 07:22 Sodium 136 mmol/L (136-145) 11/26/21 05:24 Potassium 4.3 mmol/L (3.5-5.1) 11/26/21 05:24 BUN 22 mg/dL (7-18) H 11/26/21 05:24 Creatinine 0.78 mg/dL (0.55-1.3) 11/26/21 05:24 Glucose 115 mg/dL (74-106) H 11/26/21 05:24 Magnesium 2.1 mg/dL (1.8-2.4) 11/24/21 20:24 Total Bilirubin 0.2 mg/dL (0.2-1.0) 11/22/21 06:44 AST 5 U/L (15-37) L 11/22/21 06:44 ALT 24 U/L (12-78) 11/22/21 06:44 Alkaline Phosphatase 51 U/L (45-117) 11/22/21 06:44 Home Medications: Amlodipine [Norvasc*] 10 mg PO DAILY 10/28/20 Fluticasone/Umeclidin/Vilanter [Trelegy Ellipta 100-62.5-25] 1 each IH DAILY 10/28/20 Ipratropium Neb [Atrovent*] 0.5 mg NEB Q6HP PRN amp 11/04/20 Nicotine [Nicoderm*] 21 mg TD DAILY patch.td24 11/04/20 Propranolol [Inderal*] 10 mg PO BID tab 11/04/20 Tamsulosin [Flomax*] 0.4 mg PO DAILY cap 11/04/20 Thiamine HCl [Vitamin B-1*] 100 mg PO DAILY tablet 11/04/20 predniSONE [Deltasone*] 10 mg PO SEECOM 14 Days #21 tab 07/18/21 Amlodipine [Norvasc*] 10 mg PO DAILY #30 tab 11/23/21 New Medications: Amlodipine [Norvasc*] 10 mg PO DAILY #30 tab Physician Discharge Instructions: Patient to discontinue lisinopril and and on low-dose amlodipine instead Diet: ADA Activity: Ad kate Followup: NONE,NONE [Primary Care Provider] - Time spent managing pt's care (in minutes): 38
--- NOTE | 2021-11-26 15:00 | PN ---
Subjective: The patient doing well. No event. The patient had readmission because of hypotension. Physical Examination: Vital Signs: When I saw the patient; blood pressure 116/62, pulse of 93, afebrile. The patient had good urine output. Chest: Clear to auscultation. Heart: S1, S2 regular. Abdomen: Soft, nontender. Extremity: Trace edema. Neurologic: Alert. No focality. No tremor. Laboratory Data: Sodium 136, potassium 4.3, bicarb 38, BUN 22, creatinine 0.7. Current Medications: The patient on include albuterol, nicotine, Lovenox, prednisone, and thiamine. Assessment And Plan: 1.Hyponatremia secondary to beer potomania, resolved. Off Lasix. Off salt tablet. We will continu e to monitor. 2.Hyperkalemia, status post treatment, resolved. 3.Hypertension. The patient had hypotension yesterday. We discontinued Flomax. Blood pressure sta bilized. We will continue holding Flomax. Hold blood pressure medications. 4.Deconditioning as by primary. Continue PT/OT. 5.Alcohol intoxication. Follow up with primary. RIGO Voice ID: [id number] Report ID: [id number]
[2021-11-26 15:49] VITALS: O2SAT 94
== END 2021-11-26 17:53 | DRG 190 ==
LOC: ER 06:28 → ERHOLD 09:31 → 2ND 10:53
PROVIDERS: ADMIT Hospitalist; ATTEND Hospitalist
PROC: 5A09357 Assistance with Respiratory Ventilation, Less than 24 Consecutive Hours, Continuous Positive Airway Pressure (ICD-10-PCS; principal; 2021-11-22)
DX: J44.1 Chronic obstructive pulmonary disease with (acute) exacerbation (principal); J96.21 Acute and chronic respiratory failure with hypoxia; N17.0 Acute kidney failure with tubular necrosis; E87.1 Hypo-osmolality and hyponatremia; I95.9 Hypotension, unspecified; I10 Essential (primary) hypertension; N40.0 Benign prostatic hyperplasia without lower urinary tract symptoms; F10.21 Alcohol dependence, in remission; E86.9 Volume depletion, unspecified; E87.5 Hyperkalemia; L89.321 Pressure ulcer of left buttock, stage 1; F17.210 Nicotine dependence, cigarettes, uncomplicated; Z23 Encounter for immunization; Z20.822 Contact with and (suspected) exposure to COVID-19
CPT/HCPCS: 0240U; 36415; 71045; 80048; 80076; 82570; 82805; 83605; 83735; 83880; 83935; 84132; 84145; 84156; 84300; 84484; 85025; 85610; 87040; 90471; 90732; 93005; 94010; 94640; 94660; 94760; 97116; 97161; 97530; 99285; J1650; J1720; J1940; J2920; J2930; J3475; J7030; J7512; J7605; Q2035; U0003

== ENCOUNTER 2022-01-07 09:58 | Emergency (ER) | payer BC ==
[2022-01-07 12:03] LABS: Absolute Lymphocytes (CBC) 1.5 K/uL (0.7-4.9); Hematocrit 46.4 % (39.6-49.0); Lymphocytes % 19.5 % (15.3-44.8); MPV 7.7 fL (7.6-11.3); RBC Red Blood Cell Count 4.88 M/uL (4.33-5.43)
--- NOTE | 2022-01-07 12:04 | RAD REPORT ---
EXAM DESCRIPTION: Kira Single View01/07/2022 11:10 am CLINICAL HISTORY: Shortness of breath COMPARISON: 2020 FINDINGS: Chronic left basilar lung opacities. Colon abuts the right hemidiaphragm. Lungs appear clear of acute infiltrate. Heart probably is normal size
[2022-01-07 12:09] LABS: Protime INR 1.15
[2022-01-07 12:22] LABS: Albumin 3.7 g/dL (3.4-5.0); Bilirubin Direct 0.3 mg/dL (0-0.2); Bilirubin Total 1.1 mg/dL (0.2-1.0); Potassium 4.2 mmol/L (3.5-5.1); Protein, Total 6.8 g/dL (6.4-8.2); Troponin High Sensitivity 8.2 pg/mL (<58.9)
[2022-01-07] MEDS ORDERED: NA CHLORIDE 0.9% 250 ML ONE (12:49)
[2022-01-07] MEDS ORDERED: IPRATROPIUM BROM 0.5MG/2.5ML ONE (12:49)
[2022-01-07] MEDS ORDERED: METHYLPREDNISOLONE 125 MG INJ ONE (12:49)
[2022-01-07] MEDS ORDERED: ALBUTEROL 2.5 MG/3 ML NEB SOL ONE (12:49)
--- NOTE | 2022-01-07 13:40 | RAD REPORT ---
EXAM DESCRIPTION: CT - Head Brain Wo Cont - 01/07/2022 1:26 pm CLINICAL HISTORY: general weakness COMPARISON: Head Brain Wo Cont dated 11/11/2021 TECHNIQUE: All CT scans are performed using dose optimization technique as appropriate and may inclu de automated exposure control or mA/KV adjustment according to patient size. FINDINGS: No intracranial hemorrhage, hydrocephalus or extra-axial fluid collection.No areas of brai n edema or evidence of midline shift. Cerebral atrophy with chronic small vessel ischemic changes. The paranasal sinuses and mastoids are clear. The calvarium is intact. IMPRESSION: No acute intracranial abnormality.
[2022-01-07 15:16] LABS: Urine Blood Negative (Negative); Urine Glucose Negative (Negative); Urine Protein Trace (Negative)
--- NOTE | 2022-01-07 15:29 | EDPHYS ---
Physician Documentation [facility] Name: Randolph Mckeon Age: 66 yrs Sex: Male : 1955 Arrival Date: 01/07/2022 Time: 09:59 Bed 10 Private MD: Bill Leal ED Physician Song Herrera HPI: 01/07 11:15 This 66 yrs old Male presents to ER via Ambulatory with complaints of low sodium. cp 11:15 The patient's problem is reported as weakness, that is generalized. cp 11:15 Onset: The symptoms/episode began/occurred gradually. Duration: The episode is cp continuous. Associated signs and symptoms: Pertinent positives: shortness of breath, Pertinent negatives: abdominal pain, chest pain, confusion, diaphoresis, diarrhea, dizziness, headache, vomiting. Patient's baseline: Neuro: alert and fully oriented, Motor: no deficits, Ambulation: walks without assistance, Speech: normal, The patient has a previous history of hyponatremia. 11:15 Patient reports he was hospitalized here at [facility] several weeks ago for low sodium and cp is having similar symptoms. Historical: - Allergies: 10:06 No Known Allergies; ap3 - Home Meds: 10:06 amlodipine oral [Active]; Metoprolol Tartrate Oral [Active]; tamsulosin oral [Active]; ap3 - PMHx: 10:06 COPD; Hypertension; ap3 - Immunization history:: Client reports having NOT received the Covid vaccine. Pneumococcal vaccine is up to date, Flu vaccine is up to date. - Social history:: Smoking status: Patient reports the use of cigarette tobacco products, smokes one pack cigarettes per day. Patient uses alcohol, occasionally. ROS: 11:20 Constitutional: Negative for body aches, chills, fever, poor PO intake. cp 11:20 Eyes: Negative for injury, pain, redness, and discharge. cp 11:20 ENT: Negative for drainage from ear(s), ear pain, sore throat, difficulty swallowing, difficulty handling secretions. 11:20 Cardiovascular: Negative for chest pain, edema, palpitations. 11:20 Respiratory: Positive for shortness of breath, Negative for cough, wheezing. 11:20 Abdomen/GI: Negative for abdominal pain, nausea, vomiting, and diarrhea. 11:20 Neuro: Positive for weakness, Negative for altered mental status, dizziness, headache, syncope. 11:20 All other systems are negative. Exam: 11:25 Constitutional: The patient appears in no acute distress, alert, awake, cp non-diaphoretic, non-toxic, well developed, well nourished. 11:25 Head/Face: Normocephalic, atraumatic. cp 11:25 Eyes: Periorbital structures: appear normal, Pupils: equal, round, and reactive to light and accomodation, Extraocular movements: intact throughout, Conjunctiva: normal, no exudate, no injection, Sclera: no appreciated abnormality, Lids and lashes: appear normal, bilaterally. 11:25 ENT: External ear(s): are unremarkable, Nose: is normal, Mouth: Lips: moist, Oral mucosa: pink and intact, moist, Posterior pharynx: Airway: no evidence of obstruction, patent. 11:25 Neck: ROM/movement: is normal, is supple, without pain, no range of motions limitations. 11:25 Chest/axilla: Inspection: normal. 11:25 Cardiovascular: Rate: normal, Rhythm: regular, Edema: is not appreciated, JVD: is not appreciated. 11:25 Respiratory: the patient does not display signs of respiratory distress, Respirations: normal, no use of accessory muscles, no retractions, labored breathing, is not present, Breath sounds: are clear throughout, no decreased breath sounds, no stridor, no wheezing. 11:25 Abdomen/GI: Inspection: abdomen appears normal, Palpation: abdomen is soft and non-tender, in all quadrants. 11:25 Back: pain, is absent, ROM is normal. 11:25 Skin: cellulitis, is not appreciated, no rash present. 11:25 Neuro: Orientation: to person, place \T\ time. Mentation: able to follow commands, slow to respond, Motor: moves all fours, strength is normal, Sensation: no obvious gross deficits. 13:40 ECG was reviewed by the Attending Physician. cp 13:45 Radiologist reports: no acute findings cp Vital Signs: 10:04 BP 127 / 67; Pulse 60; Resp 17; Temp 97.7; Pulse Ox 95% on R/A; Weight 95.25 kg; Height ap3 5 ft. 11 in. (180.34 cm); 10:04 Body Mass Index 29.29 (95.25 kg, 180.34 cm) ap3 MDM: 11:30 Differential diagnosis: CVA, metabolic disorder, drug effects, UTI, electrolyte cp abnormality. 12:33 Patient medically screened. 15:28 Data reviewed: vital signs, nurses notes, lab test result(s), EKG, radiologic studies, cp CT scan, plain films. 15:28 Test interpretation: by ED physician or midlevel provider: ECG, plain radiologic cp studies. Counseling: I had a detailed discussion with the patient and/or guardian regarding: the historical points, exam findings, and any diagnostic results supporting the discharge/admit diagnosis, lab results, radiology results, the need for outpatient follow up, a family practitioner, to return to the emergency department if symptoms worsen or persist or if there are any questions or concerns that arise at home. Response to treatment: the patient's symptoms have markedly improved after treatment, and as a result, I will discharge patient. 01/07 10:50 Order name: Basic Metabolic Panel; Complete Time: 12:34 01/07 12:34 Interpretation: Normal except: NA 133; CL 97. 01/07 10:50 Order name: CBC with Diff; Complete Time: 12:34 01/07 15:24 Interpretation: Reviewed. 01/07 10:50 Order name: LFT's; Complete Time: 12:34 01/07 12:34 Interpretation: Normal except: AST 6; BILIT 1.1; BILID 0.3. 01/07 10:50 Order name: Magnesium; Complete Time: 12:34 cp 01/07 10:50 Order name: NT PRO-BNP; Complete Time: 12:34 01/07 12:35 Interpretation: NT PRO-BNP 339; Reviewed. 01/07 10:50 Order name: PT-INR; Complete Time: 12:34 cp 01/07 12:35 Interpretation: Normal except: PT 12.7. 01/07 10:50 Order name: Troponin HS; Complete Time: 12:34 cp 01/07 15:24 Interpretation: Reviewed. 01/07 10:50 Order name: XRAY Chest (1 view); Complete Time: 12:34 cp 01/07 12:36 Order name: Urine Microscopic Only; Complete Time: 14:09 cp 01/07 13:08 Order name: CT Head Brain wo Cont; Complete Time: 13:41 01/07 13:41 Interpretation: Report reviewed. 01/07 15:16 Order name: Urine Dipstick-Ancillary; Complete Time: 15:22 EDKS 01/07 15:22 Interpretation: Normal except: UPROT Trace; U NIT Positive; UESTR Trace. cp 01/07 15:45 Order name: Urine Culture EDKS 01/07 10:50 Order name: EKG; Complete Time: 10:50 cp 01/07 10:50 Order name: Cardiac monitoring; Complete Time: 12:51 cp 01/07 10:50 Order name: EKG - Nurse/Tech; Complete Time: 13:56 01/07 10:50 Order name: IV Saline Lock; Complete Time: 11:56 01/07 10:50 Order name: Labs collected and sent; Complete Time: 11:56 01/07 10:50 Order name: O2 Per Protocol; Complete Time: 12:50 01/07 10:50 Order name: O2 Sat Monitoring; Complete Time: 12:50 01/07 12:36 Order name: Urine Dipstick-Ancillary (obtain specimen); Complete Time: 15:18 cp EC:40 Rate is 58 beats/min. Rhythm is regular. OK interval is normal. QRS interval is normal. cp QT interval is normal. T waves are Inverted in lead aVR. Interpreted by me. Reviewed by me. Administered Medications: 12:48 Drug: SOLU-Medrol (methylPrednisoLONE) 125 mg Route: IVP; Site: right antecubital; ss 13:55 Follow up: Response: No adverse reaction ss 12:50 Drug: NS 0.9% 250 ml Route: IV; Rate: bolus; Site: right antecubital; ss 13:55 Follow up: IV Status: Completed infusion; IV Intake: 250ml ss 12:51 Drug: Albuterol 2.5 mg Route: Inhalation; ss 12:51 Drug: AtroVENT (ipratropium) Aerosol 0.5 mg Route: Inhalation; ss 15:35 Drug: Rocephin - (cefTRIAXone) 1 grams Route: IVPB; Infused Over: 30 mins; Site: right jb4 antecubital; 16:05 Follow up: Response: No adverse reaction; IV Status: Completed infusion jb4 Disposition: 17:04 Co-signature as Attending Physician, Song BOLTON was immediately available on-site ms3 in the Emergency Department for consultation in the care of the patient.. Disposition Summary: 01/07/22 15:28 Discharge Ordered Location: Home cp Problem: new cp Symptoms: have improved cp Condition: Stable cp Diagnosis - COPD/ Chronic obstructive pulmonary disease with (acute) exacerbation cp - UTI/ Urinary tract infection, site not specified cp Followup: cp - With: Bill Leal MD - When: 2 - 3 days - Reason: Recheck today's complaints Discharge Instructions: - Discharge Summary Sheet cp - Urinary Tract Infection, Adult cp - Chronic Obstructive Pulmonary Disease Exacerbation cp Forms: - Medication Reconciliation Form cp - Thank You Letter cp - Antibiotic Education cp - Prescription Opioid Use cp Prescriptions: - Prednisone 20 mg Oral Tablet - take 2 tablets by ORAL route once daily for 5 days; 10 tablet; Refills: 0, cp Product Selection Permitted - levofloxacin 500 mg Oral Tablet - take 1 tablet by ORAL route once daily for 10 days; 10 tablet; Refills: 0, cp Product Selection Permitted Signatures: Dispatcher [employer] EDMS Anna Delgado RN RN ss Eligio Thomas PA PA cp Nilson Harding RN RN jb4 Susan Watt RN RN ap3 Song Herrera DO DO ms3 Corrections: (The following items were deleted from the chart) 01/08 14:09 01/07 11:15 The patient has been recently been admitted at [facility], was discharged last week, diagnosed with hyponatremia, cp
--- NOTE | 2022-01-07 15:29 | ER ---
Nurse's Notes [facility] Name: Randolph Mckeon Age: 66 yrs Sex: Male : 1955 Arrival Date: 01/07/2022 Time: 09:59 Bed 10 Private MD: Bill Leal Diagnosis: COPD/ Chronic obstructive pulmonary disease with (acute) exacerbation;UTI/ Urinary tract infection, site not specified Presentation: 01/07 10:04 Chief complaint: Patient states: he was here a few weeks ago for low sodium, and ap3 reports feeling the same now as he did then. patient reports feeling weak, short of breath and just "unwell". Coronavirus screen: At this time, the client does not indicate any symptoms associated with coronavirus-19. Ebola Screen: No symptoms or risks identified at this time. Initial Sepsis Screen: Does the patient meet any 2 criteria? No. Patient's initial sepsis screen is negative. Does the patient have a suspected source of infection? No. Patient's initial sepsis screen is negative. Risk Assessment: Do you want to hurt yourself or someone else? Patient reports no desire to harm self or others. Onset of symptoms was January 07, 2022. 10:04 Method Of Arrival: Ambulatory ap3 10:04 Acuity: YANNICK 3 ap3 Triage Assessment: 10:06 General: Appears in no apparent distress. Behavior is calm, cooperative. Pain: Denies ap3 pain. Neuro: Level of Consciousness is awake, alert, obeys commands, Oriented to person, place, time, situation, Reports weakness in generalized. Cardiovascular: Patient's skin is warm and dry. Respiratory: Airway is patent Respiratory effort is even, unlabored. Historical: - Allergies: 10:06 No Known Allergies; ap3 - Home Meds: 10:06 amlodipine oral [Active]; Metoprolol Tartrate Oral [Active]; tamsulosin oral [Active]; ap3 - PMHx: 10:06 COPD; Hypertension; ap3 - Immunization history:: Client reports having NOT received the Covid vaccine. Pneumococcal vaccine is up to date, Flu vaccine is up to date. - Social history:: Smoking status: Patient reports the use of cigarette tobacco products, smokes one pack cigarettes per day. Patient uses alcohol, occasionally. Screenin:07 Abuse screen: Denies threats or abuse. Nutritional screening: No deficits noted. ap3 Tuberculosis screening: No symptoms or risk factors identified. 14:56 Fall Risk None identified. ss Assessment: 13:56 Reassessment: Patient appears in no apparent distress at this time. Patient and/or ss family updated on plan of care and expected duration. Pain level reassessed. Patient is alert, oriented x 3, equal unlabored respirations, skin warm/dry/pink. 14:56 Reassessment: awaiting for patient to provide urine sample. ss 16:18 Reassessment: Patient appears in no apparent distress at this time. Patient and/or jb4 family updated on plan of care and expected duration. Pain level reassessed. Patient is alert, oriented x 3, equal unlabored respirations, skin warm/dry/pink. Vital Signs: 10:04 BP 127 / 67; Pulse 60; Resp 17; Temp 97.7; Pulse Ox 95% on R/A; Weight 95.25 kg; Height ap3 5 ft. 11 in. (180.34 cm); 10:04 Body Mass Index 29.29 (95.25 kg, 180.34 cm) ap3 ED Course: 09:59 Patient arrived in ED. am2 09:59 Bill Leal MD is Private Physician. am2 10:05 Triage completed. ap3 10:07 Arm band placed on left wrist. ap3 10:08 Eligio Thomas PA is PHCP. cp 10:08 Song Herrera DO is Attending Physician. cp 11:09 XRAY Chest (1 view) In Process Unspecified. EDMS 11:56 Inserted saline lock: 22 gauge in right forearm, using aseptic technique. Blood zm collected. 11:56 Basic Metabolic Panel Sent. zm 11:56 CBC with Diff Sent. zm 11:56 LFT's Sent. zm 11:56 Magnesium Sent. zm 11:56 NT PRO-BNP Sent. zm 11:57 PT-INR Sent. zm 11:57 Troponin HS Sent. zm 12:39 Anna Delgado, SAMEER is Primary Nurse. ss 13:28 CT Head Brain wo Cont In Process Unspecified. EDMS 15:22 Urine Microscopic Only Sent. zm 15:28 Bill Leal MD is Referral Physician. cp 16:18 Patient has correct armband on for positive identification. Bed in low position. Call jb4 light in reach. 16:18 No provider procedures requiring assistance completed. IV discontinued, intact, jb4 bleeding controlled, No redness/swelling at site. Pressure dressing applied. Administered Medications: 12:48 Drug: SOLU-Medrol (methylPrednisoLONE) 125 mg Route: IVP; Site: right antecubital; ss 13:55 Follow up: Response: No adverse reaction ss 12:50 Drug: NS 0.9% 250 ml Route: IV; Rate: bolus; Site: right antecubital; ss 13:55 Follow up: IV Status: Completed infusion; IV Intake: 250ml ss 12:51 Drug: Albuterol 2.5 mg Route: Inhalation; ss 12:51 Drug: AtroVENT (ipratropium) Aerosol 0.5 mg Route: Inhalation; ss 15:35 Drug: Rocephin - (cefTRIAXone) 1 grams Route: IVPB; Infused Over: 30 mins; Site: right jb4 antecubital; 16:05 Follow up: Response: No adverse reaction; IV Status: Completed infusion jb4 Medication: 10:07 VIS not applicable for this client. ap3 Intake: 13:55 IV: 250ml; Total: 250ml. ss Outcome: 15:28 Discharge ordered by MD. cp 16:18 Discharged to home via wheelchair, with family. jb4 16:18 Condition: stable 16:18 Discharge instructions given to patient, Instructed on discharge instructions, follow up and referral plans. medication usage, Demonstrated understanding of instructions, follow-up care, medications, Prescriptions given X 2. 16:20 Patient left the ED. jb4 Addendum: 01/12/2022 08:46 Addendum: Culture Results: Positive urine culture. No further action required. Bacteria i w sensitive to prescribed antibiotic. Signatures: Dispatcher [employer] EDMS Leela Sanchez RN RN Anna Delgado RN RN ss Eligio Thomas PA PA cp Nilson Harding RN RN jb4 Susan Watts Amanda, RN RN ap3 Mirela Forrest
[2022-01-07] MEDS ORDERED: NA CHLORIDE 0.9% 50 ML ONE (15:31)
[2022-01-07] MEDS ORDERED: CEFTRIAXONE 1000 MG/VIAL ONE (15:31)
[2022-01-07 15:43] LABS: Urine Bacteria 20-50 /HPF (NONE SEEN); Urine RBC <5 /HPF (NONE SEEN)
[2022-01-07 16:32] VITALS: BP 127/67; TEMP 97.7; O2SAT 95
--- NOTE | 2022-01-08 07:38 | EKG ---
Test Date: 2022-01-07 Test Time: 13:37:56 Java Developer With Security Clearance: LUIS MEASUREMENT RESULTS: Intervals: Rate: 58 WY: 172 QRSD: 84 QT: 420 QTc: 412 [place]: P: 78 WY: 172 QRS: 50 T: 67 INTERPRETIVE STATEMENTS: Sinus bradycardia Biatrial enlargement Abnormal ECG Compared to ECG 11/22/2021 06:42:40 Atrial abnormality now present Sinus tachycardia no longer present Ventricular premature complex(es) no longer present Electronically Signed On 01-08-22 07:37:06 CDT by John Marie
== END 2022-01-07 16:20 | disposition home or self-care (01) ==
LOC: ER 09:58
DX: J44.1 Chronic obstructive pulmonary disease with (acute) exacerbation (principal); N39.0 Urinary tract infection, site not specified; I10 Essential (primary) hypertension; F17.210 Nicotine dependence, cigarettes, uncomplicated
CPT/HCPCS: 96365; 96367; 93005; 87088; 85025; 87086; 80048; 36415; 83735; 85610; 80076; 87077; 87186; 84484; 83880; 70450; 71045; 96375; 99284; J7050; J2930; 81003; 81015

== ENCOUNTER 2022-09-16 00:46 | Inpatient (IN) | payer OTHER, BC ==
[2022-09-16 01:15] LABS: Arterial Blood Carboxyhemoglob 4.8 % (0-1.5); Blood Gas Oxyhemoglobin 91.8 % (94-97); Blood O2 Saturation 97.6 % (92-98.5)
[2022-09-16] MEDS ORDERED: METHYLPREDNISOLONE 125 MG INJ ONE (01:37)
[2022-09-16] MEDS ORDERED: LEVALBUTEROL 1.25 MG/3 ML NEB ONE (01:37)
[2022-09-16] MEDS ORDERED: IPRATROPIUM BROM 0.5MG/2.5ML ONE ×2 (01:37→18:08)
[2022-09-16] MEDS ORDERED: MAGNESIUM SULFATE 1 gm IVPB 1 GM/100 ML BAG IV ONE (01:37)
[2022-09-16] MEDS ORDERED: NA CHLORIDE 0.9% 500 ML ONE ×2 (01:37→02:34)
[2022-09-16 01:52] LABS: Absolute Lymphocytes (CBC) 1.4 K/uL (0.7-4.9); Hematocrit 45.3 % (39.6-49.0); Lymphocytes % 12.7 % (15.3-44.8); MCV 89.1 fL (80-100); MPV 7.2 fL (7.6-11.3); RBC Red Blood Cell Count 5.08 M/uL (4.33-5.43)
[2022-09-16 01:56] LABS: Protime INR 0.99
[2022-09-16 01:57] LABS: Urine Blood Negative (Negative); Urine Glucose Negative (Negative); Urine Protein 2+ (Negative); Urine Specific Gravity 1.025 (1.005-1.030)
[2022-09-16 02:09] LABS: Albumin 3.9 g/dL (3.4-5.0); Bilirubin Total 0.9 mg/dL (0.2-1.0); Protein, Total 7.1 g/dL (6.4-8.2); Troponin High Sensitivity 8.4 pg/mL (<58.9)
--- NOTE | 2022-09-16 02:20 | EDPHYS ---
Physician Documentation [facility] Name: Randolph Mckeon Age: 67 yrs Sex: Male : 1955 Arrival Date: 09/16/2022 Time: 00:47 Bed 6 Private MD: ED Physician Severo Nielsen HPI: 09/16 01:22 This 67 yrs old Male presents to ER via EMS with complaints of Breathing Difficulty. rn 01:22 The patient has shortness of breath at rest. Onset: The symptoms/episode began/occurred rn today. Duration: The symptoms are continuous. The patient's shortness of breath is aggravated by coughing, exertion, is alleviated by application of supplemental oxygen. Associated signs and symptoms: Pertinent positives: non-productive cough, Pertinent negatives: chest pain, fever, hemoptysis. Severity of symptoms: At their worst the symptoms were moderate in the emergency department the symptoms are unchanged. The patient has experienced similar episodes in the past. The patient has not recently seen a physician. Historical: - Allergies: 01:05 No Known Allergies; kd3 - Home Meds: 01:05 tamsulosin Oral [Active]; Metoprolol Tartrate Oral [Active]; amlodipine [Active]; kd3 - PMHx: 01:05 COPD; Hypertension; kd3 - Immunization history:: Adult Immunizations unknown. - Social history:: Smoking status: Patient reports the use of cigarette tobacco products. - Family history:: not pertinent. - Hospitalizations: : No recent hospitalization is reported. ROS: 01:22 Constitutional: Negative for fever, chills, and weight loss, Eyes: Negative for injury, rn pain, redness, and discharge, Cardiovascular: Negative for chest pain, palpitations, and edema, Respiratory: Negative for pleuritic chest pain Abdomen/GI: Negative for abdominal pain, nausea, vomiting, diarrhea, and constipation, MS/Extremity: Negative for injury and deformity, Skin: Negative for injury, rash, and discoloration, Neuro: Negative for headache, weakness, numbness, tingling, and seizure. Exam: 01:22 Constitutional: This is a well developed, well nourished patient who is somnolent, rn with moderate resp distress and diaphoresis Head/Face: Normocephalic, atraumatic. ENT: NO stridor Cardiovascular: Regular rate and rhythm. No pulse deficits. Respiratory: + moderate tachypnea, with poor inspiratory air flow Abdomen/GI: Soft, non-tender Skin: Diaphoretic MS/ Extremity: Pulses equal, no cyanosis. Neuro: Somnolent, awakens to voice 01:50 ECG was reviewed by the Attending Physician. rn Vital Signs: 01:02 BP 178 / 93; Pulse 86; Resp 16; Temp 97.8(A); Pulse Ox 100% on BiPAP; kd3 01:41 BP 165 / 90; Pulse 78; Resp 19; Pulse Ox 100% on BiPAP; kd3 MDM: 00:51 Patient medically screened. rn 02:18 Differential diagnosis: Anemia Bronchitis Chronic Obstructive Pulmonary Disease rn Myocardial Infarction pneumonia, Pneumothorax pulmonary edema, reactive airway disease, Sepsis. Data reviewed: vital signs, nurses notes, lab test result(s), EKG, radiologic studies, plain films, and as a result, I will admit patient. Management of patient was discussed with the following: Hospitalist: Management and plan for admission discussed with hospitalist. Independent interpretation of the following test(s) in the Emergency Department X-Ray: My interpretation is CXR show interstitial prominence, no pneumonia. Care significantly affected by the following chronic conditions: Hypertension, Chronic Obstructive Pulmonary Disease. Counseling: I had a detailed discussion with the patient and/or guardian regarding: the historical points, exam findings, and any diagnostic results supporting the discharge/admit diagnosis, lab results, radiology results, the need for further work-up and treatment in the hospital. 09/16 00:55 Order name: Blood Culture Adult (2) rn 09/16 00:55 Order name: CBC with Diff; Complete Time: 02:17 rn 09/16 00:55 Order name: CMP; Complete Time: : rn 09/16 00:55 Order name: Lactate w/ 2H reflex if indic.; Complete Time: :17 rn 09/16 00:55 Order name: Protime (+inr); Complete Time: :17 rn 09/16 00:55 Order name: Ptt, Activated; Complete Time: :17 rn 09/16 00:55 Order name: Urine Culture rn 09/16 00:55 Order name: Urine Microscopic Only; Complete Time: 03:11 rn 09/16 00:55 Order name: ABG; Complete Time: 01:47 rn 09/16 00:55 Order name: COVID-19/FLU A+B; Complete Time: 02:39 rn 09/16 00:55 Order name: BNP; Complete Time: 02:17 rn 09/16 00:55 Order name: Troponin High Sensitivity; Complete Time: 02:17 rn 09/16 01:57 Order name: Urine Dipstick-Ancillary; Complete Time: 02:17 EDMS 09/16 04:00 Order name: ABG rn 09/16 00:55 Order name: Chest Single View XRAY rn 09/16 04:00 Order name: CT Head Brain wo Cont rn 09/16 04:08 Order name: Glucose, Ancillary Testing EDMS 09/16 05:30 Order name: UR POTASSIUM EDMS 09/16 05:30 Order name: UR SODIUM EDMS 09/16 05:39 Order name: Osmolality, Urine EDMS 09/16 05:40 Order name: Osmolality, Serum EDMS 09/16 05:44 Order name: Uric Acid EDMS 09/16 05:47 Order name: Basic Metabolic Panel EDMS 09/16 06:22 Order name: ABG Arterial Blood Gas EDMS 09/16 12:22 Order name: CT EDMS 09/16 13:08 Order name: Basic Metabolic Panel EDMS 09/16 18:47 Order name: Basic Metabolic Panel EDMS 09/16 00:55 Order name: EKG; Complete Time: 00:58 rn 09/16 00:55 Order name: Accucheck; Complete Time: 02:23 rn 09/16 00:55 Order name: Cardiac monitoring; Complete Time: 01:42 rn 09/16 00:55 Order name: Cath; Complete Time: 01:42 rn 09/16 00:55 Order name: EKG - Nurse/Tech; Complete Time: 01:42 rn 09/16 00:55 Order name: IV Saline Lock - Large Bore; Complete Time: 01:42 rn 09/16 00:55 Order name: Labs collected and sent; Complete Time: 01:43 rn 09/16 00:55 Order name: O2 Per Protocol; Complete Time: 01:43 rn 09/16 00:55 Order name: O2 Sat Monitoring; Complete Time: 01:43 rn 09/16 00:55 Order name: Urine Dipstick-Ancillary (obtain specimen); Complete Time: 02:07 rn 09/16 00:55 Order name: Vital Signs; Complete Time: 01:41 rn EC:50 Rate is 80 beats/min. Rhythm is regular. QRS [place] is Normal. UT interval is normal. QRS rn interval is normal. QT interval is normal. No Q waves. T waves are Normal. No ST changes noted. Clinical impression: NSR w/ Non-specific ST/T Changes. Interpreted by me. Reviewed by me. Administered Medications: 01:42 Drug: SOLU-Medrol (methylPrednisoLONE) 125 mg Route: IVP; Site: left antecubital; kd3 01:42 Drug: NS 0.9% 500 ml Route: IV; Rate: bolus; Site: left antecubital; kd3 02:22 Follow up: IV Status: Completed infusion; IV Intake: 500ml kd3 01:51 Drug: Xopenex (levalbuterol) (3) 1.25 mg Route: Inhalation; kd3 01:51 Drug: AtroVENT (ipratropium) Aerosol 0.5 mg Route: Inhalation; kd3 01:51 Drug: Magnesium Sulfate 1 grams Route: IVPB; Infused Over: 1 hrs; Site: left kd3 antecubital; 02:35 Drug: NS 0.9% 500 ml Route: IV; Rate: bolus; Site: left antecubital; kd3 Disposition: 02:18 Critical Care:. rn Disposition Summary: 09/16/22 02:20 Hospitalization Ordered Hospitalization Status: Inpatient Admission rn Provider: Timoteo Fischer rn Condition: Stable rn Problem: an acute exacerbation rn Symptoms: have improved rn Bed/Room Type: Standard rn Location: Telemetry/MedSurg (Inpatient)(09/16/22 20:29) cg Room Assignment: [facility](09/16/22 20:44) Diagnosis - COPD/ Chronic obstructive pulmonary disease with (acute) exacerbation rn - Hypoxemia rn - Hypo-osmolality and hyponatremia rn Forms: - Medication Reconciliation Form rn - SBAR form event planning intern time excluding procedures: 02:18 Critical care time: Bedside Care: 35 minutes, Consultation: 5 minutes. Total time: 40 rn minutes Signatures: Dispatcher [employer] EDMS Severo Nielsen MD MD rn Garcia, Cindy RN RN Emily Matamoros RN RN janeth3 Velvet Haynes PA-C PAEma sb4 Corrections: (The following items were deleted from the chart) 02:39 02:20 Telemetry/MedSurg (Inpatient) rn cg 02: 02:20 rn cg 20: 02:39 BR ER HOLD cg cg 20: 02: ERHOLD- cg cg 20: 20:29 cg cg
--- NOTE | 2022-09-16 02:20 | ER ---
Nurse's Notes [facility] Name: Randolph Mckeon Age: 67 yrs Sex: Male : 1955 Arrival Date: 09/16/2022 Time: 00:47 Bed 6 Private MD: Diagnosis: COPD/ Chronic obstructive pulmonary disease with (acute) exacerbation;Hypoxemia;Hypo-osmolality and hyponatremia Presentation: 09/16 01:02 Chief complaint: Patient states: PT is from home. The called for shortness of kd3 breath and says that "he has been like this for 3 hours". He is normally on home oxygen with a history of COPD. PT was in the low 70's on arrival. Albuterol/ Atrovent treatment and 125 of solu medrol given in route and pt improved to 91%. Ebola Screen: No symptoms or risks identified at this time. Initial Sepsis Screen: Does the patient meet any 2 criteria? No. Patient's initial sepsis screen is negative. Does the patient have a suspected source of infection? No. Patient's initial sepsis screen is negative. Risk Assessment: Do you want to hurt yourself or someone else? Patient reports no desire to harm self or others. Onset of symptoms was September 16, 2022. 01:02 Method Of Arrival: EMS: [facility] kd3 01:02 Acuity: YANNICK 3 kd3 Triage Assessment: 01:05 General: Appears uncomfortable, Behavior is listless. General: Behavior is. Pain: kd3 Denies pain. Neuro: Level of Consciousness is Oriented to person. Cardiovascular:. Respiratory: Reports shortness of breath Airway is patent Trachea midline Respiratory effort is labored, Respiratory pattern is symmetrical, Onset: The symptoms/episode began/occurred the patient has severe shortness of breath. Historical: - Allergies: 01:05 No Known Allergies; kd3 - Home Meds: 01:05 tamsulosin Oral [Active]; Metoprolol Tartrate Oral [Active]; amlodipine [Active]; kd3 - PMHx: 01:05 COPD; Hypertension; kd3 - Immunization history:: Adult Immunizations unknown. - Social history:: Smoking status: Patient reports the use of cigarette tobacco products. - Family history:: not pertinent. - Hospitalizations: : No recent hospitalization is reported. Screenin:[address] [facility] ED Fall Risk Assessment (Adult) History of falling in the last 3 months, kd3 including since admission No falls in past 3 months (0 pts) Confusion or Disorientation No (0 pts) Intoxicated or Sedated No (0 pts) Impaired Gait No (0 pts) Mobility Assist Device Used No (0 pt) Altered Elimination No (0 pt) Score/Fall Risk Level 0 - 2 = Low Risk. Abuse screen: Denies threats or abuse. Denies injuries from another. Nutritional screening: No deficits noted. Tuberculosis screening: No symptoms or risk factors identified. Assessment: 01:07 Cardiovascular: Rhythm is sinus rhythm. kd3 21:18 Reassessment: report given to SAMEER Talavera. mb9 Vital Signs: 01:02 BP 178 / 93; Pulse 86; Resp 16; Temp 97.8(A); Pulse Ox 100% on BiPAP; kd3 01:41 BP 165 / 90; Pulse 78; Resp 19; Pulse Ox 100% on BiPAP; kd3 ED Course: 00:47 Patient arrived in ED. ja2 00:51 Severo Nielsen MD is Attending Physician. rn 01:02 Emily Santos RN is Primary Nurse. kd3 01:05 Triage completed. kd3 01:05 Arm band placed on right wrist. kd3 01:11 Chest Single View XRAY In Process Unspecified. EDMS 01:42 Troponin High Sensitivity Sent. kd3 01:42 BNP Sent. kd3 01:42 COVID-19/FLU A+B Sent. kd3 01:43 Blood Culture Adult (2) Sent. kd3 01:43 CBC with Diff Sent. kd3 01:43 CMP Sent. kd3 01:43 Lactate w/ 2H reflex if indic. Sent. kd3 01:43 Protime (+inr) Sent. kd3 01:43 Ptt, Activated Sent. kd3 02:19 Timoteo Fischer is Hospitalizing Provider. rn 21:17 No provider procedures requiring assistance completed. Patient admitted, IV remains in mb9 place. Administered Medications: :42 Drug: SOLU-Medrol (methylPrednisoLONE) 125 mg Route: IVP; Site: left antecubital; kd3 01:42 Drug: NS 0.9% 500 ml Route: IV; Rate: bolus; Site: left antecubital; kd3 02:22 Follow up: IV Status: Completed infusion; IV Intake: 500ml kd3 01:51 Drug: Xopenex (levalbuterol) (3) 1.25 mg Route: Inhalation; kd3 01:51 Drug: AtroVENT (ipratropium) Aerosol 0.5 mg Route: Inhalation; kd3 01:51 Drug: Magnesium Sulfate 1 grams Route: IVPB; Infused Over: 1 hrs; Site: left kd3 antecubital; 02:35 Drug: NS 0.9% 500 ml Route: IV; Rate: bolus; Site: left antecubital; kd3 Intake: 02:22 IV: 500ml; Total: 500ml. kd3 Outcome: 02:20 Decision to Hospitalize by Provider. rn 20:31 Admitted to ER Hold. Please see [facility] for further documentation. 20:31 Condition: improved 20:31 Instructed on the need for admit, Demonstrated understanding of instructions. 21:18 Patient left the ED. mb9 Signatures: Dispatcher [employer] EDLatoya Leal RN RN kl Nieto, Roman, MD MD rn Alexander, Jessica ja2 Doucette, Kyli, RN RN kd3 Breneman, Mary Beth, RN RN mb9
[2022-09-16 02:24] LABS: SARS-COV-2 RT PCR NEGATIVE (NEGATIVE)
--- NOTE | 2022-09-16 02:40 | P.HP ---
Certification for Inpatient Patient admitted to: Inpatient With expected LOS: >2 Midnights Patient will require the following post-hospital care: None Practitioner: I am a practitioner with admitting privileges, knowledge of patient current condition, hospital course, and medical plan of care. Services: Services provided to patient in accordance with Admission requirements found in Title 42 Section 412.3 of the Code of Federal Regulations Patient History Date of Service: 09/16/22 Primary Care Provider: Laverne Reason for admission: COPD Exacerbation History of Present Illness: Patient is a 67-year-old male with history of morbid obesity, COPD, alcohol abuse, hypertension, and hyponatremia who was brought to the emergency department due to acute respiratory distress. Patient was found to have oxygen saturation of 70% on room air. He was placed on oxygen and given IV Solu-Medrol and bronchodilator treatment by EMS. ABG done in the ED demonstrated respiratory acidosis with pH of 7.3 and CO2 retention with PCO2 of 73. Patient put on BiPAP and given additional bronchodilator treatment, IV solumedrol, magnesium, and IV fluids. Chest x-ray showed "Prominent interstitial markings which may represent chronic changes and/or interstitial edema as well as Peribronchial thickening." He was also found to have a sodium of 118 and chloride of 73. Patient is admitted for further management. Allergies No Known Allergies Allergy (Verified 08/10/22 05:06) Home medications list reviewed: Yes Home Medications: Fluticasone/Umeclidin/Vilanter [Trelegy Ellipta 100-62.5-25] 1 each IH DAILY 10/28/20 Propranolol [Inderal*] 10 mg PO BID tab 11/04/20 Tamsulosin [Flomax*] 0.4 mg PO DAILY cap 11/04/20 Amlodipine [Norvasc*] 10 mg PO DAILY #30 tab 11/23/21 Albuterol Sulfate [Albuterol Sulfate Hfa] 2 inhaler IH Q4H PRN 08/10/22 - Past Medical/Surgical History Diabetic: No -: COPD -: Hypertension -: Alcohol abuse -: Hyponatremia -: Hernia repair Psychosocial/ Personal History: Patient is . He lives at [facility]. - Family History Family History: Reviewed- Non-Contributory - Social History Smoking Status: Current every day smoker Alcohol use: Yes CD- Drugs: No Caffeine use: Yes Place of Residence: [place] Review of Systems 10-point ROS is otherwise unremarkable Respiratory: Cough, Shortness of Breath Physical Examination - Vital Signs Temperature: 97.8 F Blood Pressure: 165/90 Pulse: 78 Respirations: 19 Pulse Ox (%): 100 (bipap) - Physical Exam General: Oriented x2, Confused HEENT: Atraumatic, PERRLA, EOMI, Sclerae nonicteric Neck: Supple, 2+ carotid pulse no bruit Respiratory: Expiratory wheezes Cardiovascular: Regular rate/rhythm, Normal S1 S2 Gastrointestinal: Normal bowel sounds, No tenderness Musculoskeletal: No tenderness Integumentary: No rashes Neurological: Abnormal speech, Abnormal affect - Studies Laboratory Data (last 24 hrs) 09/16/22 01:30: PT 10.9, INR 0.99, APTT 28.1 09/16/22 01:30: Sodium 118 L*, Potassium 4.0, BUN 6 L, Creatinine 0.69 L, Glucose 147 H, Total Bilirubin 0.9, AST 14 L, ALT 21, Alkaline Phosphatase 76 09/16/22 01:30: WBC 10.60, Hgb 15.4, Hct 45.3, Plt Count 232 Assessment and Plan - Problems (Diagnosis) (1) Acute respiratory failure with hypoxia and hypercapnia Current Visit: Yes Status: Acute (2) Alcohol abuse Current Visit: Yes Status: Chronic (3) COPD with exacerbation Current Visit: Yes Status: Acute (4) Hyponatremia Current Visit: Yes Status: Acute (5) Chronic diastolic heart failure Current Visit: Yes Status: Chronic (6) Hypertension Current Visit: Yes Status: Chronic Qualifiers: Hypertension type: primary hypertension Qualified Code(s): I10 - Essential (primary) hypertension (7) Metabolic encephalopathy Current Visit: Yes Status: Acute - Plan Patient is admitted for further management of acute on chronic hypoxic respiratory failure secondary to COPD. Continue BiPAP, titrate and wean to NC as tolerated. Known history of hyponatremia secondary to low solute intake/beer potomania. Has seized in the past and required hypertonic saline. Currently alert and oriented x 2, could be secondary to hyponatremia and/or hypercapnia. Head CT is pending. Check serum osmolality, urine osmolality, uric acid, urine sodium, urine potassium. BMP q6h. Nephrology consult. Watch for alcohol withdrawal and start CIWA as needed. Tobacco cessation. Nicoderm patch if needed. Monitor and replete electrolytes pre protocol. Reconcile and continue home medications. Lovenox for VTE prophylaxis. Full code. Discharge Plan: [facility] Plan to discharge in: Greater than 2 days - Advance Directives Does patient have a Living Will: No Does patient have a Durable POA for Healthcare: No - Code Status/Comfort Care Code Status Assessed: Yes Code Status: Full Code Physician Review: Patient Assessed, Agree with Above Assessment and Plan Critical Care: No Time Spent Managing Pts Care (In Minutes): 50
[2022-09-16 03:08] LABS: Renal Epithelial <5 /HPF (None Seen); Transitional Epithelial <5 /HPF (None Seen); Urine Bacteria None Seen /HPF (<20); Urine RBC <5 /HPF (None Seen)
[2022-09-16] MEDS ORDERED: ALBUTEROL 2.5 MG/3 ML NEB SOL NEB PRN (04:08)
[2022-09-16] MEDS ORDERED: ACETAMINOPHEN 500 MG TAB PO PRN (04:08)
[2022-09-16] MEDS ORDERED: ONDANSETRON 4 MG/2 ML VIAL IV PRN (04:08)
[2022-09-16 05:46] LABS: Potassium 4.5 mmol/L (3.5-5.1)
[2022-09-16 06:21] LABS: Arterial Blood Carboxyhemoglob 3.3 % (0-1.5); Blood Gas Oxyhemoglobin 90.8 % (94-97); Blood O2 Saturation 95.1 % (92-98.5)
[2022-09-16] MEDS: ENOXAPARIN 40 MG/0.4 ML SQ SCH (09:00)
[2022-09-16] MEDS ORDERED: ENOXAPARIN 40 MG/0.4 ML SQ ONE (12:15)
--- NOTE | 2022-09-16 12:22 | RAD REPORT ---
EXAM DESCRIPTION: CT Head Without Intravenous Contrast CLINICAL HISTORY: The patient is 67 years old and is Male; [facility] MAIN TECHNIQUE: Axial computed tomography images of the head/brain without intravenous contrast. Sagitt al and coronal reformatted images were created and reviewed. This CT exam was performed using one o r more of the following dose reduction techniques: automated exposure control, adjustment of the mA and/or kV according to patient size, and/or use of iterative reconstruction technique. COMPARISON: 01/07/2022 CT head without contrast FINDINGS: BRAIN: Moderate global cerebral atrophy with commensurate sulcal and ventricular enlarg ement. Microangiopathic white matter changes. No extra-axial fluid collection. No intracranial hemorrhage. No transtentorial herniation. No focal diaz-white matter differentiation abnormality. MIDLINE SHIFT: No midline shift. VENTRICLES: See above. BONES/JOINTS: Remote right nasal bone fracture. No fracture of the calvarium or visualized facial bones. SOFT TISSUES: Unremarkable. SINUSES: Unremarkable as visualized. No acute sinusitis. MASTOID AIR CELLS: Unremarkable as visualized. No mastoid effusion. IMPRESSION: 1. No acute intracranial abnormality. 2. Chronic and senescent changes. Electronically signed by: Jj George MD 09/16/2022 4:47 AM RU[employer] LEAGUE FOOTBALLER Due to temporary technical issues with the PACS/Fluency reporting system, reports are being signed by the in house radiologists without review as a courtesy to insure prompt reporting. The interpreting radiologist is fully responsible for the content of the report.
--- NOTE | 2022-09-16 12:35 | CON ---
Date of Consultation: 09/16/2022 Reason For Consultation: Hyponatremia. History Of Present Illness: This is a 67-year-old gentleman with significant past medical history of COPD, hypertension, seizure, alcohol abuse, recurrent hyponatremia. The patient came to the [facility] complaining from shortness of breath, found to have over volume and respiratory failure. The patie nt was placed on BiPAP. The patient denied taking any nonsteroidal. The patient is still taking his diuresis according to him. Past Medical History: Includes; 1.ETOH abuse. 2.COPD. 3.Hypertension. 4.Recurrent hyponatremia. Social History: Active smoker, active alcohol. Denied drug abuse. Allergies: NO KNOWN DRUGS ALLERGY. Past Surgical History: Noncontributory. Home Medications: Include Lasix, amlodipine, breathing treatment, nicotine, Flomax, lisinopril. Current Medications: In the hospital include Tylenol, albuterol, Zofran, Solu-Medrol. Review of Systems: Head and Neck: No red eye. No ear pain. GI: No nausea. No vomiting. : No polyuria. No dysuria. No hematuria. Loop Tender: Not applicable. Respiratory: Has shortness of breath. Cardiovascular: No chest pain. Endocrine: No polydipsia. Skin: No rash. Physical Examination: Vital Signs: When I saw the patient; blood pressure of 165/90, pulse of 78. Chest: Crackles bilateral. Heart: S1, S2. Systolic murmur. Abdomen: Soft, nontender. Extremities: Trace edema. Neurologic: Alert. No focality. Laboratory Data: Hemoglobin 16.4. Sodium 128, potassium 4.5, bicarb of 33, creatinine 0.7, BUN of 7 , calcium 8.1. ABG; pH 7.32, CO2 of 69, O2 86. Assessment And Plan: 1.Hyponatremia, mostly dilutional secondary to over volume. The patient had echocardiogram before w ith normal ejection fraction, but currently urine sodium elevated in the effect of diuresis and his u saul acid is low. I am going to go ahead and start the patient on Lasix and we will monitor the patie nt. We will repeat TSH and cortisol and we will follow up. We will place the patient on fluid restr iction. 2.Acidosis secondary to hypercapnic respiratory failure. Continue BiPAP. Follow up with Pulmonary. 3.Hypertension, controlled. We will utilize blood pressure for more diuresis. 4.Respiratory failure secondary to over volume/chronic obstructive pulmonary disease exacerbation. We will follow up with Pulmonary. We will try to establish better volume control with diuresis. Thank you, Dr. Fischer for allowing us to participate in the care of your patient. Time spent examining the patient [id number], reviewing the data and Radiology, placing order, discu ssing the case with the patient, discussing the case with the sales team leader including ER and hospitalis t more than 65 minutes. RIGO Voice ID: [id number] Report ID: [id number]
[2022-09-16 12:59] LABS: Potassium 4.8 mmol/L (3.5-5.1)
--- NOTE | 2022-09-16 13:07 | RAD REPORT ---
EXAM DESCRIPTION: RAD - Chest Single View - 09/16/2022 1:09 am CLINICAL HISTORY: The patient is 67 years old and is Male; COPD TECHNIQUE: Frontal view of the chest. COMPARISON: No relevant prior studies available. FINDINGS: Lungs: Prominent interstitial markings which may represent chronic changes and/or inters titial edema. Peribronchial thickening. Pleural space: Unremarkable. No pneumothorax. Heart: Unremarkable. Mediastinum: Unremarkable. Bones/joints: Unremarkable. IMPRESSION: 1. Prominent interstitial markings which may represent chronic changes and/or intersti tial edema. 2. Peribronchial thickening. Electronically signed by: Aníbal Tse MD 09/16/2022 1:19 AM HOTEL DIRECTOR Due to temporary technical issues with the PACS/Fluency reporting system, reports are being signed by the in house radiologists without review as a courtesy to insure prompt reporting. The interpreting radiologist is fully responsible for the content of the report.
[2022-09-16] MEDS: FUROSEMIDE 40 MG/4 ML VIAL IV SCH (17:00)
[2022-09-16] MEDS ORDERED: FUROSEMIDE 40 MG/4 ML VIAL ONE (17:13)
[2022-09-16] MEDS ORDERED: ALBUTEROL 2.5 MG/3 ML NEB SOL ONE (18:07)
[2022-09-16] MEDS: ALBUTEROL 2.5 MG/3 ML NEB SOL NEB PRN (18:12)
[2022-09-16] MEDS: IPRATROPIUM BROM 0.5MG/2.5ML NEB PRN (18:12)
[2022-09-16 18:27] LABS: Potassium 4.4 mmol/L (3.5-5.1)
--- NOTE | 2022-09-16 18:31 | P.PN ---
Date of Service: 09/16/22 Patient seen and examined. He is awake and alert. He is weaning off BiPAP to oxygen by nasal cannula. Overall clinically improved. Diagnosis: COPD exacerbation. Metabolic alkalosis Hyponatremia Hypochloremia Plan: Nephrology input appreciated. Patient started on IV Lasix. Monitor electrolytes closely. Patient weaned off BiPAP. Bronchodilators. Wean oxygen as tolerated.
[2022-09-17 00:58] LABS: Potassium 4.4 mmol/L (3.5-5.1)
[2022-09-17] MEDS: IPRATROPIUM BROM 0.5MG/2.5ML NEB PRN ×4 (01:10→19:25)
[2022-09-17] MEDS: ALBUTEROL 2.5 MG/3 ML NEB SOL NEB PRN ×4 (01:10→19:25)
[2022-09-17 03:57] LABS: Absolute Lymphocytes (CBC) 1.1 K/uL (0.7-4.9); Hematocrit 41.9 % (39.6-49.0); Lymphocytes % 6.5 % (15.3-44.8); MCV 90.3 fL (80-100); MPV 7.7 fL (7.6-11.3); RBC Red Blood Cell Count 4.64 M/uL (4.33-5.43)
[2022-09-17 04:11] LABS: Albumin 3.5 g/dL (3.4-5.0); Magnesium 2.3 mg/dL (1.6-2.4); Phosphorus 2.8 mg/dL (2.5-4.9); Potassium 4.1 mmol/L (3.5-5.1)
[2022-09-17 05:49] LABS: UR SODIUM < 15 mmol/L (27-287)
[2022-09-17 05:54] LABS: Specific Gravity 1.007 (1.005-1.030); Urine Bacteria <20 /HPF (<20); Urine Bilirubin NEGATIVE (Negative); Urine Blood Negative (Negative); Urine Clarity Clear (Clear); Urine Color Light-Yellow (Yellow); Urine Glucose NEGATIVE (Negative); Urine Protein NEGATIVE (Negative); Urine RBC None Seen /HPF (None Seen); Urine Urobilinogen Normal (Normal)
[2022-09-17] MEDS: FUROSEMIDE 40 MG/4 ML VIAL IV SCH (08:33)
[2022-09-17] MEDS: ENOXAPARIN 40 MG/0.4 ML SQ SCH (08:34)
--- NOTE | 2022-09-17 11:19 | PN ---
Date of Progress Note: 09/17/2022 Subjective: The patient was admitted with over volume, COPD exacerbation, severe hyponatremia. The patient was started on diuresis. The patient today more awake. Shortness of breath has been subside d. Physical Examination: Vital Signs: Blood pressure 154/79, pulse of 67, afebrile. The patient had good urine output. Chest: Still crackles bilateral more prominent on the left. Heart: S1, S2. Systolic murmur. Abdomen: Morbidly obese. Could not appreciate any organomegaly. Extremities: No ulcer. Trace edema. Neurologic: Alert. No focality. Laboratory Data: Chest x-ray, cardiomegaly. Hemoglobin 13.9, WBC 17.3. Sodium 130, potassium 4.1, bicarb 38, BUN 14, creatinine 0.8. Calcium 8.6, magnesium 2.8, phosphorus 2.8. Urinalysis, urine so dium less than 15. Current Medications: The patient on Lasix 40 b.i.d., Lovenox, Tylenol, Zofran. Assessment And Plan: 1.Hyponatremia, dilutional, looked to me acute with recurrent hyponatremia. We have over correction of 12 point and less than 24 hours. I am going to go ahead and hold the Lasix. We will start the p atient on D5. We will monitor the patient. 2.Hypertension, controlled, optimal. Continue current treatment. 3.Respiratory failure secondary to COPD/cardiorenal, currently normal volume with over correction. I am going to switch and place the patient on D5. 4.Acidosis secondary to hypercapnic respiratory failure. Acidosis has been resolved. 5.Alcohol intoxication, as by the primary. ALEX/THIAGOL Voice ID: [id number] Report ID: [id number]
[2022-09-17] MEDS: D5W 1,000 ML IV SCH (13:23)
--- NOTE | 2022-09-17 16:02 | P.PN ---
Subjective Date of Service: 09/17/22 Primary Care Provider: Laverne Chief Complaint: COPD Exacerbation Patient has clinically improved and currently tolerating 2 L of oxygen by nasal cannula. He has no new complain. Physical Examination - Vital Signs Temperature: 98.0 F Blood Pressure: 132/73 Pulse: 85 Respirations: 18 Pulse Ox (%): 95 Assessment And Plan - Current Problems (Diagnosis) (1) Metabolic alkalosis Current Visit: Yes Status: Acute (2) Acute respiratory failure with hypoxia and hypercapnia Current Visit: Yes Status: Acute (3) COPD with exacerbation Current Visit: Yes Status: Acute (4) Hyponatremia Current Visit: Yes Status: Acute (5) Metabolic encephalopathy Current Visit: Yes Status: Acute (6) Chronic diastolic heart failure Current Visit: Yes Status: Chronic - Plan Physical Exam General: Oriented x3, not in acute distress Neck: Supple, no elevated JVD. Respiratory: Clear to auscultation bilaterally. Diminished breath sounds Cardiovascular: Regular rate/rhythm, Normal S1 S2 Gastrointestinal: Normal bowel sounds, No tenderness Musculoskeletal: No tenderness Integumentary: No rashes Neurological: No focal motor deficit. Plan: Patient rapidly improved with treatment for COPD over 24 hours. Currently tolerating oxygen by nasal cannula. Continue bronchodilators. Added p.o. prednisone. Seen by nephrology and patient started on IV Lasix. Metabolic alkalosis, hyponatremia and hypochloremia management per nephrology. Patient was just discharged from rehab. PT consult. Monitor intake and output.
[2022-09-17] MEDS: predniSONE 20 MG TAB PO SCH (17:49)
[2022-09-17] MEDS: TAMSULOSIN 0.4 MG SR CAP PO SCH (17:49)
[2022-09-17] MEDS: PROPRANOLOL HCL 10 MG TAB PO SCH (21:52)
[2022-09-18] MEDS: D5W 1,000 ML IV SCH ×2 (00:20→02:23)
[2022-09-18] MEDS: IPRATROPIUM BROM 0.5MG/2.5ML NEB PRN ×2 (02:15→08:40)
[2022-09-18] MEDS: ALBUTEROL 2.5 MG/3 ML NEB SOL NEB PRN ×2 (02:15→08:40)
[2022-09-18 03:40] LABS: Hematocrit 41.1 % (39.6-49.0); Lymphocytes % 7.1 % (15.3-44.8); MCV 92.5 fL (80-100); MPV 7.6 fL (7.6-11.3); RBC Red Blood Cell Count 4.45 M/uL (4.33-5.43)
[2022-09-18 03:53] LABS: Albumin 3.2 g/dL (3.4-5.0); Phosphorus 3.9 mg/dL (2.5-4.9); Potassium 4.4 mmol/L (3.5-5.1)
[2022-09-18] MEDS: PROPRANOLOL HCL 10 MG TAB PO SCH ×2 (08:53→20:44)
[2022-09-18] MEDS: predniSONE 20 MG TAB PO SCH (08:53)
[2022-09-18] MEDS: TAMSULOSIN 0.4 MG SR CAP PO SCH (08:53)
[2022-09-18] MEDS: ENOXAPARIN 40 MG/0.4 ML SQ SCH (08:53)
--- NOTE | 2022-09-18 12:22 | P.CNS ---
Date of Consult: 09/18/22 Primary Care Provider: Laverne Chief Complaint: COPD Exacerbation History of Present Illness: Patient is 67 years of age and alcoholic heavy smoker COPD recurrent admissions for hyponatremia brought again here for with respiratory distress he was mildly hyponatremic hypoxic bicarbonate is also elevated stable right now slight cough and congestion Allergies No Known Allergies Allergy (Verified 09/16/22 22:13) Home Medications: Fluticasone/Umeclidin/Vilanter [Trelegy Ellipta 100-62.5-25] 1 each IH DAILY 10/28/20 Propranolol [Inderal*] 10 mg PO BID tab 11/04/20 Tamsulosin [Flomax*] 0.4 mg PO DAILY cap 11/04/20 Albuterol Sulfate [Albuterol Sulfate Hfa] 2 inhaler IH Q4H PRN 08/10/22 - Past Medical/Surgical History Diabetic: No -: COPD -: Hypertension -: Alcohol abuse -: Hyponatremia -: Hernia repair Psychosocial/ Personal History: Patient is . He lives at [facility]. - Social History Smoking Status: Current every day smoker Alcohol use: Yes CD- Drugs: No Caffeine use: Yes Place of Residence: [place] Review of Systems 10-point ROS is otherwise unremarkable General: Weakness Respiratory: Cough, Shortness of Breath Physical Examination Temp Pulse Resp BP Pulse Ox 98.5 F 77 18 125/65 97 09/18/22 08:53 09/18/22 08:53 09/18/22 08:53 09/18/22 08:53 09/18/22 08:53 General: Alert, Oriented x3 Respiratory: Expiratory wheezes Cardiovascular: No edema, Regular rate/rhythm, Normal S1 S2 - Problems (1) COPD with exacerbation Current Visit: Yes Status: Acute Plan: Patient is 67 years of age recurrent hospital admission he has underlying COPD heavy smoker alcoholic history of chronic hyponatremia seen by nephrology bicarb is elevated secondary to his CO2 retention hypoxic hypercarbic white count mildly elevated I suspect is from the steroids chest x-ray low lung volumes patient has refused to quit drinking and smoking is currently stable for discharge probably do better off of some Diamox daily
--- NOTE | 2022-09-18 12:39 | P.PN ---
Subjective Date of Service: 09/18/22 Primary Care Provider: Laverne Chief Complaint: COPD Exacerbation Subjective: No new changes Physical Examination - Vital Signs Temperature: 98.5 F Blood Pressure: 125/65 Pulse: 77 Respirations: 18 Pulse Ox (%): 97 - Physical Exam General: Other (chronically ill appearing) HEENT: Atraumatic, Normocephalic Neck: Supple Respiratory: Other (symmetric chest expansion) Cardiovascular: No rubs, No murmurs Gastrointestinal: Soft and benign, No guarding Musculoskeletal: Swelling (BLE) Integumentary: No warmth Neurological: Normal tone Urinary: Other (No bladder distention) External genitalia: Deferred Rectal: Deferred - Studies Microbiology Data (last 24 hrs): 09/16/22 01:53 Catheterized Urine [place] Count - Final No growth. 09/16/22 01:53 Catheterized Urine - Final No growth. Assessment And Plan - Plan # Hypotonic, chronic, symptomatic, severe hyponatremia 2/2 low solute intake/beer potomania, prerenal state, & high ADH state from acute respiratory issues Serum Na 129 Repeat urine chem on 09/18 +high BNP chronically elevated. Avoid/minimize Na-containing IV fluid or NaCl tabs. Advised on adeq po solid food intake tid If po solid food intake is poor, add Ure-Na 30g po bid Avoid/minimize Benzo Avoid Trazodone. May give ambien prn for insomnia. [place] po fluid intake # Recurrent acute respiratory failure 2/2 COPD exacerbation +/- CHF +Cig smoker, +obesity ABG on 09/16 showed primary chronic respi acidosis BiPAP, O2 suppl prn OOB several times daily Incentive spirometry q2h when awake # Htn Cont current med regimen Physician Review: Patient Assessed, Agree with Above Assessment and Plan
[2022-09-18] MEDS: THIAMINE HCL 100 MG TABLET PO SCH ×2 (13:06→20:44)
--- NOTE | 2022-09-18 13:23 | EKG ---
Test Date: 2022-09-16 Test Time: 00:54:32 Hot Bread Baker: LIAN MEASUREMENT RESULTS: Intervals: Rate: 80 MO: 200 QRSD: 90 QT: 392 QTc: 452 [place]: P: 68 MO: 200 QRS: 52 T: 62 INTERPRETIVE STATEMENTS: Normal sinus rhythm Possible Left atrial enlargement RSR' or QR pattern in V1 suggests right ventricular conduction delay Borderline ECG Compared to ECG 08/09/2022 13:06:42 RSR' in V1 or V2 now present Sinus tachycardia no longer present Incomplete right bundle-branch block no longer present Myocardial infarct finding no longer present Electronically Signed On 09-18-22 13:17:59 JAVA GOLDEN GATE DEVELOPER by Curtis Sotelo
[2022-09-18] MEDS: IPRATROPIUM BROM 0.5MG/2.5ML NEB SCH ×2 (13:44→20:40)
--- NOTE | 2022-09-18 17:32 | P.PN ---
Subjective Date of Service: 09/18/22 Primary Care Provider: Laverne Chief Complaint: COPD Exacerbation Patient is doing much better today. He denies any shortness of breath. Oxygen saturation is stable on 2 L oxygen by nasal cannula. Physical Examination - Vital Signs Temperature: 98.4 F Blood Pressure: 134/74 Pulse: 83 Respirations: 18 Pulse Ox (%): 94 - Studies Microbiology Data (last 24 hrs): 09/16/22 01:53 Catheterized Urine [place] Count - Final No growth. 09/16/22 01:53 Catheterized Urine - Final No growth. Assessment And Plan - Current Problems (Diagnosis) (1) Metabolic alkalosis Current Visit: Yes Status: Acute (2) Acute respiratory failure with hypoxia and hypercapnia Current Visit: Yes Status: Acute (3) COPD with exacerbation Current Visit: Yes Status: Acute (4) Hyponatremia Current Visit: Yes Status: Acute (5) Metabolic encephalopathy Current Visit: Yes Status: Acute (6) Chronic diastolic heart failure Current Visit: Yes Status: Chronic - Plan Physical Exam General: Oriented x3, not in acute distress Neck: Supple, no elevated JVD. Respiratory: Clear to auscultation bilaterally. Diminished breath sounds Cardiovascular: Regular rate/rhythm, Normal S1 S2 Gastrointestinal: Normal bowel sounds, No tenderness Musculoskeletal: No tenderness Integumentary: No rashes Neurological: No focal motor deficit. Plan: Patient rapidly improved with treatment for COPD over 24 hours. Hyponatremia improved, sodium stable around 130. Currently tolerating oxygen by nasal cannula. Wean oxygen to maintain SaO2 between 90 to 92% Continue bronchodilators. Continue p.o. prednisone. Nephrology is following. Lasix discontinued. Patient being hydrated with normal saline Metabolic alkalosis, hyponatremia and hypochloremia management per nephrology. Patient was just discharged from rehab. Patient evaluated by PT who recommended skilled rehab. Social service consulted to evaluate his eligibility for skilled rehab. Monitor intake and output.
[2022-09-18] MEDS: NICOTINE 21 MG/PAT TD SCH (21:00)
[2022-09-19] MEDS: IPRATROPIUM BROM 0.5MG/2.5ML NEB SCH ×4 (01:15→20:20)
[2022-09-19] MEDS: D5W 1,000 ML IV SCH ×2 (03:00→17:41)
[2022-09-19 05:04] LABS: Absolute Lymphocytes (CBC) 1.9 K/uL (0.7-4.9); Lymphocytes % 13.7 % (15.3-44.8); MCV 92.2 fL (80-100); MPV 7.7 fL (7.6-11.3); RBC Red Blood Cell Count 4.23 M/uL (4.33-5.43)
[2022-09-19 05:38] LABS: Albumin 3.2 g/dL (3.4-5.0); Magnesium 2.1 mg/dL (1.6-2.4); Phosphorus 3.7 mg/dL (2.5-4.9); Potassium 4.3 mmol/L (3.5-5.1)
[2022-09-19] MEDS: ENOXAPARIN 40 MG/0.4 ML SQ SCH (08:11)
[2022-09-19] MEDS: TAMSULOSIN 0.4 MG SR CAP PO SCH (08:13)
[2022-09-19] MEDS: THIAMINE HCL 100 MG TABLET PO SCH ×2 (08:13→20:38)
[2022-09-19] MEDS: predniSONE 20 MG TAB PO SCH (08:13)
[2022-09-19] MEDS: NICOTINE 21 MG/PAT TD SCH (08:14)
[2022-09-19] MEDS: PROPRANOLOL HCL 10 MG TAB PO SCH ×2 (09:00→20:38)
--- NOTE | 2022-09-19 13:15 | P.PN ---
Subjective Date of Service: 09/19/22 Primary Care Provider: Laverne Chief Complaint: COPD Exacerbation Patient denies any complaint He denies any shortness of breath. He is not orthopneic. Physical Examination - Vital Signs Temperature: 98.5 F Blood Pressure: 131/68 Pulse: 79 Respirations: 18 Pulse Ox (%): 97 - Studies Microbiology Data (last 24 hrs): 09/16/22 01:53 Catheterized Urine [place] Count - Final No growth. 09/16/22 01:53 Catheterized Urine - Final No growth. Assessment And Plan - Current Problems (Diagnosis) (1) Metabolic alkalosis Current Visit: Yes Status: Acute (2) Acute respiratory failure with hypoxia and hypercapnia Current Visit: Yes Status: Acute (3) COPD with exacerbation Current Visit: Yes Status: Acute (4) Hyponatremia Current Visit: Yes Status: Acute (5) Metabolic encephalopathy Current Visit: Yes Status: Acute (6) Chronic diastolic heart failure Current Visit: Yes Status: Chronic - Plan Physical Exam General: Oriented x3, not in acute distress Neck: Supple, no elevated JVD. Respiratory: Mild scattered bilateral rhonchi, diminished breath sounds Cardiovascular: Regular rate/rhythm, Normal S1 S2 Gastrointestinal: Normal bowel sounds, No tenderness Musculoskeletal: No tenderness Integumentary: No rashes Neurological: No focal motor deficit. Plan: Patient rapidly improved with treatment for COPD over 24 hours. Hyponatremia improved, sodium stable around 129. Currently tolerating oxygen by nasal cannula. Wean oxygen to maintain SaO2 between 90 to 92% Continue bronchodilators. Continue p.o. prednisone. Nephrology is following. Lasix discontinued. Metabolic alkalosis, hyponatremia and hypochloremia management per nephrology. Patient was just discharged from rehab. Patient evaluated by PT who recommended skilled rehab. Social service consulted to evaluate his eligibility for skilled rehab. Monitor intake and output.
--- NOTE | 2022-09-19 14:19 | P.PN ---
Subjective Date of Service: 09/19/22 Primary Care Provider: Laverne Chief Complaint: COPD Exacerbation Subjective: No new changes Physical Examination - Vital Signs Temperature: 98.5 F Blood Pressure: 131/68 Pulse: 79 Respirations: 18 Pulse Ox (%): 97 - Physical Exam General: Other (appears as his stated age) HEENT: Atraumatic, Normocephalic Neck: Supple Respiratory: Other (symmetric chest expansion) Cardiovascular: No rubs, No murmurs Gastrointestinal: Soft and benign Musculoskeletal: Swelling Integumentary: No warmth Neurological: Normal tone Urinary: Other (no bladder distention) External genitalia: Deferred Rectal: Deferred Assessment And Plan - Plan # Hypotonic, chronic, symptomatic, severe hyponatremia 2/2 low solute intak e/beer potomania, prerenal state, & high ADH state from acute respiratory issues Serum Na remains at 129 Repeat urine chem on 09/18 +high BNP chronically elevated. Avoid/minimize Na-containing IV fluid or NaCl tabs. Advised on adeq po solid food intake tid If po solid food intake is poor, add Ure-Na 30g po bid Avoid/minimize Benzo Avoid Trazodone. May give ambien prn for insomnia. [place] po fluid intake # Recurrent acute respiratory failure 2/2 COPD exacerbation +/- CHF +Cig smoker, +obesity ABG on 09/16 showed primary chronic respi acidosis BiPAP, O2 suppl prn OOB several times daily Incentive spirometry q2h when awake # Htn Cont current med regimen Physician Review: Patient Assessed, Agree with Above Assessment and Plan
[2022-09-19] MEDS: ALBUTEROL 2.5 MG/3 ML NEB SOL NEB PRN (20:20)
[2022-09-19] MEDS: DIPHENHYDRAMINE 25 MG TAB/CAP PO PRN (20:39)
--- NOTE | 2022-09-19 22:11 | RAD REPORT ---
EXAM DESCRIPTION: [place] Single View09/19/2022 9:56 pm CLINICAL HISTORY: Shortness of breath COMPARISON: September 16, 2022 FINDINGS: A few areas of subsegmental atelectasis within the lung bases. Upper lobes appear clear The heart appears borderline enlarged
[2022-09-19 22:12] LABS: Arterial Blood Carboxyhemoglob 1.3 % (0-1.5); Blood Gas Oxyhemoglobin 94.5 % (94-97); Blood O2 Saturation 96.9 % (92-98.5)
[2022-09-19] MEDS ORDERED: FUROSEMIDE 20 MG/ 2ML VIAL IV ONE (22:37)
[2022-09-20] MEDS: IPRATROPIUM BROM 0.5MG/2.5ML NEB SCH ×4 (02:00→19:50)
[2022-09-20 04:29] LABS: Albumin 3.1 g/dL (3.4-5.0); Magnesium 2.2 mg/dL (1.6-2.4); Phosphorus 3.2 mg/dL (2.5-4.9); Potassium 4.6 mmol/L (3.5-5.1)
[2022-09-20] MEDS: THIAMINE HCL 100 MG TABLET PO SCH ×2 (09:25→22:29)
[2022-09-20] MEDS: NICOTINE 21 MG/PAT TD SCH (09:25)
[2022-09-20] MEDS: predniSONE 20 MG TAB PO SCH (09:26)
[2022-09-20] MEDS: ENOXAPARIN 40 MG/0.4 ML SQ SCH (09:26)
[2022-09-20] MEDS: PROPRANOLOL HCL 10 MG TAB PO SCH ×2 (09:26→22:28)
[2022-09-20] MEDS: TAMSULOSIN 0.4 MG SR CAP PO SCH (09:26)
[2022-09-20] MEDS: ALBUTEROL 2.5 MG/3 ML NEB SOL NEB PRN ×2 (09:47→19:50)
--- NOTE | 2022-09-20 10:54 | P.PN ---
Subjective Date of Service: 09/20/22 Primary Care Provider: Laverne Chief Complaint: COPD Exacerbation Patient reports shortness of breath last night. He was placed on BiPAP. Repeat chest x-ray last night was unremarkable. He denies any shortness of breath. He is not orthopneic. Physical Examination - Vital Signs Temperature: 98.5 F Blood Pressure: 131/65 Pulse: 79 Respirations: 18 Pulse Ox (%): 97 Assessment And Plan - Current Problems (Diagnosis) (1) Metabolic alkalosis Current Visit: Yes Status: Acute (2) Acute respiratory failure with hypoxia and hypercapnia Current Visit: Yes Status: Acute (3) COPD with exacerbation Current Visit: Yes Status: Acute (4) Hyponatremia Current Visit: Yes Status: Acute (5) Metabolic encephalopathy Current Visit: Yes Status: Acute (6) Chronic diastolic heart failure Current Visit: Yes Status: Chronic - Plan Physical Exam General: Oriented x3, not in acute distress Neck: Supple, no elevated JVD. Respiratory: Mild scattered bilateral rhonchi, diminished breath sounds Cardiovascular: Regular rate/rhythm, Normal S1 S2 Gastrointestinal: Normal bowel sounds, No tenderness Musculoskeletal: No tenderness Integumentary: No rashes Neurological: No focal motor deficit. Plan: Patient ended up on BiPAP last night. Currently doing well and saturating at 97%. Wean off BIPAP to oxygen by nasal cannula. Maintain SaO2 between 90 to 92% Hyponatremia improved, sodium stable around 129. Continue bronchodilators. Continue p.o. prednisone. Nephrology is following. Lasix discontinued. Metabolic alkalosis, hyponatremia and hypochloremia management per nephrology. IV fluid discontinued due to dyspnea last night. Chest x-ray unremarkable. Patient evaluated by PT who recommended skilled rehab. Social service consulted to evaluate his eligibility for skilled rehab.
--- NOTE | 2022-09-20 15:52 | P.PN ---
Subjective Date of Service: 09/20/22 Primary Care Provider: Laverne Chief Complaint: COPD Exacerbation Subjective: Other (Had increased SOB last night. Much more comfortable looking today.) Physical Examination - Vital Signs Temperature: 98.3 F Blood Pressure: 108/61 Pulse: 76 Respirations: 20 Pulse Ox (%): 90 - Physical Exam General: Other (chronically ill appearing) HEENT: Atraumatic, Normocephalic Neck: Supple Respiratory: Other (symmetric chest expansion) Cardiovascular: No rubs, No murmurs Gastrointestinal: Soft and benign, No guarding Musculoskeletal: No clubbing, Swelling Integumentary: No warmth Neurological: Normal tone Urinary: Other (No bladder distention) External genitalia: Deferred Rectal: Deferred Assessment And Plan - Plan # Hypotonic, chronic, symptomatic, severe hyponatremia 2/2 low solute intake/beer potomania, prerenal state, & high ADH state from acute respiratory issues Serum Na remains at 129 Repeat urine chem on 09/18 +high BNP chronically elevated. Avoid/minimize Na-containing IV fluid or NaCl tabs. Start Dmeclocycline 150 mg po bid, plan moth exterminator. Monitor BUN & LFT. Advised on adeq po solid food intake tid If po solid food intake is poor, add Ure-Na 30g po bid Avoid/minimize Benzo Avoid Trazodone. May give ambien prn for insomnia. [place] po fluid intake # Recurrent acute respiratory failure 2/2 COPD exacerbation +/- CHF +Cig smoker, +obesity ABG on 09/16 showed primary chronic respi acidosis BiPAP, O2 suppl prn OOB several times daily Incentive spirometry q2h when awake # Htn Cont current med regimen Physician Review: Patient Assessed, Agree with Above Assessment and Plan
[2022-09-20] MEDS: DEMECLOCYCLINE HCL 150 MG TABLET PO SCH ×2 (16:09→22:28)
[2022-09-20] MEDS: DIPHENHYDRAMINE 25 MG TAB/CAP PO PRN (22:28)
[2022-09-21] MEDS: IPRATROPIUM BROM 0.5MG/2.5ML NEB SCH ×4 (02:00→19:20)
[2022-09-21 05:04] LABS: Albumin 2.8 g/dL (3.4-5.0); Magnesium 2.2 mg/dL (1.6-2.4); Potassium 4.5 mmol/L (3.5-5.1)
[2022-09-21 06:33] VITALS: BMI 29.8
[2022-09-21] MEDS: NICOTINE 21 MG/PAT TD SCH (08:41)
[2022-09-21] MEDS: ENOXAPARIN 40 MG/0.4 ML SQ SCH (08:42)
[2022-09-21] MEDS: PROPRANOLOL HCL 10 MG TAB PO SCH ×2 (08:43→20:05)
[2022-09-21] MEDS: THIAMINE HCL 100 MG TABLET PO SCH ×2 (08:43→20:05)
[2022-09-21] MEDS: TAMSULOSIN 0.4 MG SR CAP PO SCH (08:43)
[2022-09-21] MEDS: predniSONE 20 MG TAB PO SCH (08:43)
[2022-09-21] MEDS: DEMECLOCYCLINE HCL 150 MG TABLET PO SCH ×3 (08:43→20:05)
--- NOTE | 2022-09-21 14:29 | P.PN ---
Subjective Date of Service: 09/21/22 Primary Care Provider: Laverne Chief Complaint: COPD Exacerbation Patient has no new complain. He is currently maintained on 3 L oxygen by nasal cannula. Physical Examination - Vital Signs Temperature: 98.2 F Blood Pressure: 124/58 Pulse: 75 Respirations: 18 Pulse Ox (%): 94 - Studies Microbiology Data (last 24 hrs): 09/16/22 01:41 Blood - Blood Aerobic Blood Culture - Final No growth in 5 days. 09/16/22 01:41 Blood - Blood Anaerobic Blood Culture - Final No growth in 5 days. 09/16/22 01:30 Blood - Blood Aerobic Blood Culture - Final No growth in 5 days. 09/16/22 01:30 Blood - Blood Anaerobic Blood Culture - Final No growth in 5 days. Assessment And Plan - Current Problems (Diagnosis) (1) Metabolic alkalosis Current Visit: Yes Status: Acute (2) Acute respiratory failure with hypoxia and hypercapnia Current Visit: Yes Status: Acute (3) COPD with exacerbation Current Visit: Yes Status: Acute (4) Hyponatremia Current Visit: Yes Status: Acute (5) Metabolic encephalopathy Current Visit: Yes Status: Acute (6) Chronic diastolic heart failure Current Visit: Yes Status: Chronic - Plan Physical Exam General: Oriented x3, not in acute distress Neck: Supple, no elevated JVD. Respiratory: Mild scattered bilateral rhonchi, diminished breath sounds Cardiovascular: Regular rate/rhythm, Normal S1 S2 Gastrointestinal: Normal bowel sounds, No tenderness Musculoskeletal: No tenderness Integumentary: No rashes Neurological: No focal motor deficit. Plan: Stable on oxygen by nasal cannula Titrate oxygen to maintain SaO2 between 90 to 92% Hyponatremia improved. Continue bronchodilators. Continue p.o. prednisone. Nephrology is following. Lasix discontinued. Metabolic alkalosis, hyponatremia and hypochloremia management per nephrology. Repeat chest x-ray 09/19 unremarkable. Hypochloremia and hyponatremia appears to be chronic. Patient evaluated by PT who recommended rehab. Social service consulted to evaluate for inpatient rehab.
--- NOTE | 2022-09-21 20:19 | P.PN ---
Date of Service: 09/22/22 Subjective: ROS: A complete review of systems was performed and is negative except as mentioned above Physical Exam: Gen: alert, oriented HEENT: normal conjunctiva, sclera anicteric CV: regular rate & rhythm, no edema Pulm: bilateral wheeze, on NC Abd: soft, non-tender, non-distended Neuro: arousable, moves all extremities vitals reviewed Problem List Acute respiratory failure with hypoxia and hypercapnia Metabolic alkalosis Metabolic encephalopathy acute on chronic COPD with exacerbation acute on chronic hyponatremia Chronic diastolic CHF HTN weaned off bipap, now stable on oxygen by nasal cannula; pulm consulted Titrate oxygen to maintain SaO2 between 90 to 92% Hyponatremia, hypochloremia, metabolic alkalosis improving nephrology consulted; h/o alcohol dependence, suspect secondary to low solute intake/beer potomaina, prerenal, and high ADH state secondary to acute respiratory issues recommend avoidance/minimizing salt tabs / Na containing fluid, chronically elevated BNP Started Dmeclocycline 150 mg po bid, 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 Monitor BUN & LFT. avoid trazodone; give ambien if needed for insomnia hypochloremia, chronic Continue bronchodilators. Continue p.o. prednisone. Nephrology is following. Lasix discontinued. Patient evaluated by PT who recommended rehab. VTE: lovenox Code: full Dispo: Social service consulted to evaluate for inpatient rehab.
--- NOTE | 2022-09-21 22:53 | PN ---
Date of Progress Note: 09/21/2022 Chief Complaint: Hyponatremia, severe. Subjective: Patient denies complaints today. Denies fever, chills, nausea, vomiting. Physical Examination: Lungs: Clear to auscultation bilaterally. Heart: S1, S2. Abdomen: Soft. Extremities: Slight edema in both ankles. Impression And Plan: 1.Hyponatremia. Patient presented to the hospital with severe hyponatremia. Sodium level was 119. Patient has history of beer potomania developed hyponatremia secondary to low solute intake. Patien t was found to have prerenal state and high ADH related state in setting of acute respiratory issues. Patient currently is on demeclocycline 150 mg twice a day. Sodium level has been stable over last 48 hours. Patient was advised to consume solid food with protein intake. Recommendation was previou sly made to avoid trazodone. Patient was treated with IV fluids at this point due to elevated BNP. Plan is to avoid IV infusion, sodium chloride tablet due to the risk of congestive heart failure exac erbation and worsening of the anasarca. 2.Hypertension. Continue current regimen. EB/MODL Voice ID: [id number] Report ID: [id number]
[2022-09-22] MEDS: IPRATROPIUM BROM 0.5MG/2.5ML NEB SCH ×3 (01:30→13:59)
[2022-09-22 03:59] LABS: Lymphocytes % 10.8 % (15.3-44.8); MCV 92.1 fL (80-100); MPV 7.8 fL (7.6-11.3); RBC Red Blood Cell Count 3.91 M/uL (4.33-5.43)
[2022-09-22 04:13] LABS: Potassium 4.7 mmol/L (3.5-5.1)
[2022-09-22] MEDS: DEMECLOCYCLINE HCL 150 MG TABLET PO SCH ×2 (09:57→14:43)
[2022-09-22] MEDS: ENOXAPARIN 40 MG/0.4 ML SQ SCH (09:57)
[2022-09-22] MEDS: THIAMINE HCL 100 MG TABLET PO SCH (09:57)
[2022-09-22] MEDS: NICOTINE 21 MG/PAT TD SCH (09:58)
[2022-09-22] MEDS: predniSONE 20 MG TAB PO SCH (09:58)
[2022-09-22] MEDS: PROPRANOLOL HCL 10 MG TAB PO SCH (09:58)
[2022-09-22] MEDS: TAMSULOSIN 0.4 MG SR CAP PO SCH (10:01)
[2022-09-22 14:38] VITALS: O2SAT 94
[2022-09-22 16:22] VITALS: BP 126/66; TEMP 97.3
--- NOTE | 2022-09-22 17:18 | P.DS ---
Admission Date: 09/16/22 Discharge Date: 09/22/22 Primary Care Provider: Laverne Disposition: TRANSFER TO INPATIENT REHAB Reason for Admission: COPD Exacerbation Consultations: Pulmonology Nephrology - Ora Lew Brief History of Present Illness: 67-year-old male with history of morbid obesity, COPD, alcohol abuse, hypertension, and hyponatremia who was brought to the emergency department due to acute respiratory distress. Patient was found to have oxygen saturation of 70% on room air. He was placed on oxygen and given IV Solu-Medrol and bronchodilator treatment by EMS. ABG done in the ED demonstrated respiratory acidosis with pH of 7.3 and CO2 retention with PCO2 of 73. Patient put on BiPAP and given additional bronchodilator treatment, IV solumedrol, magnesium, and IV fluids. Chest x-ray showed "Prominent interstitial markings which may represent chronic changes and/or interstitial edema as well as Peribronchial thickening." He was also found to have a sodium of 118 and chloride of 73. Patient is admitted for further management. Hospital Course: Problem List Acute respiratory failure with hypoxia and hypercapnia acute on chronic COPD with exacerbation Metabolic alkalosis Metabolic encephalopathy acute on chronic hyponatremia Chronic diastolic CHF HTN Patient improved with increased fluid intake, prednisone, bonrchodilators, and oxygen supplementation. Pulmonology and Nephrology consulted. Hyponatremia had further improvement after initiation of demeclcycline - to continue for foreseeable future. Rehab to consult Nephrology to continue assistance. 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 Monitor BUN & LFT. avoid trazodone; give ambien if needed for insomnia Patient was evaluated by PT/OT and recommended to continue working at inpatient rehab. Deemed stable for discharge to inpatient rehab. Vital Signs/Physical Exam: Temp Pulse Resp BP Pulse Ox 97.3 F 68 14 126/66 93 09/22/22 16:00 09/22/22 16:00 09/22/22 16:00 09/22/22 16:00 09/22/22 16:00 General: Alert, In no apparent distress HEENT: EOMI, Sclerae nonicteric Respiratory: Diminished Cardiovascular: Regular rate/rhythm, Edema (trace) Gastrointestinal: Soft and benign, Non-distended, No tenderness Musculoskeletal: No tenderness Integumentary: No rashes, No significant lesion Neurological: Normal speech, Normal affect Laboratory Data at Discharge: WBC 8.80 K/uL (4.3-10.9) 09/22/22 03:25 Hgb 11.7 g/dL (13.6-17.9) L 09/22/22 03:25 Hct 36.0 % (39.6-49.0) L 09/22/22 03:25 Plt Count 104 K/uL (152-406) L 09/22/22 03:25 PT 10.9 SECONDS (9.5-12.5) 09/16/22 01:30 INR 0.99 09/16/22 01:30 APTT 28.1 SECONDS (24.3-36.9) 09/16/22 01:30 Sodium 134 mmol/L (136-145) L 09/22/22 03:25 Potassium 4.7 mmol/L (3.5-5.1) 09/22/22 03:25 BUN 14 mg/dL (7-18) 09/22/22 03:25 Creatinine 0.54 mg/dL (0.70-1.30) L 09/22/22 03:25 Glucose 106 mg/dL (74-106) 09/22/22 03:25 Uric Acid 4.4 mg/dL (3.5-7.2) 09/16/22 05:17 Phosphorus 3.0 mg/dL (2.5-4.9) 09/21/22 03:02 Magnesium 2.2 mg/dL (1.6-2.4) 09/21/22 03:02 Total Bilirubin 0.9 mg/dL (0.2-1.0) 09/16/22 01:30 AST 14 U/L (15-37) L 09/16/22 01:30 ALT 21 U/L (16-61) 09/16/22 01:30 Alkaline Phosphatase 76 U/L (45-117) 09/16/22 01:30 Home Medications: Fluticasone/Umeclidin/Vilanter [Trelegy Ellipta 100-62.5-25] 1 each IH DAILY 03/08/21 Propranolol [Inderal*] 10 mg PO BID tab 11/04/20 Tamsulosin [Flomax*] 0.4 mg PO DAILY cap 11/04/20 Albuterol Sulfate [Albuterol Sulfate Hfa] 2 inhaler IH Q4H PRN 08/10/22 Time spent managing pt's care (in minutes): 45
--- NOTE | 2022-09-23 00:17 | PN ---
Date of Progress Note: 09/22/2022 Chief Complaint: Hyponatremia, severe. Subjective: The patient has multiple medical problems and he presented to the hospital because of ge neralized weakness and he was found to have severe hyponatremia. Review of Systems: Today he denies fever, chills, nausea, or vomiting. Physical Examination: Lungs: Clear to auscultation bilaterally. Heart: S1, S2. Abdomen: Soft. Extremities: Slight edema in both ankles. Impression And Plan: 1.Hyponatremia. The patient presented to the hospital with severe hyponatremia. Sodium level was 1 19. The patient has history of beer potomania and developed hyponatremia secondary to low solute int wilfredo and poor water intake. The patient was found to have prerenal state and high ADH related state i n setting of acute respiratory issue. The patient currently is on demeclocycline 150 mg twice a day. Sodium level has stabilized over last 48 hours. The patient was advised to consume solid foods wit h adequate protein intake. Recommendation was previously made to avoid trazodone. The patient was t reated with IV fluids at this point and due to elevated BNP, IV fluids were stopped and patient will continue sodium chloride tablet. The patient will avoid sodium chloride tablet due to risk of conges tive heart failure exacerbation and worsening of anasarca. 2.Hypertension. Continue current regimen. CHELO/MODL Voice ID: [id number] Report ID: [id number]
== END 2022-09-22 16:57 | DRG 640 ==
LOC: ER 00:46 → ERHOLD 02:34 → 4TH 21:12
PROVIDERS: ADMIT Internal Medicine; ATTEND Hospitalist
PROC: 5A09557 Assistance with Respiratory Ventilation, Greater than 96 Consecutive Hours, Continuous Positive Airway Pressure (ICD-10-PCS; principal; 2022-09-16)
DX: E87.1 Hypo-osmolality and hyponatremia (principal); G93.41 Metabolic encephalopathy; J96.01 Acute respiratory failure with hypoxia; J96.02 Acute respiratory failure with hypercapnia; J44.1 Chronic obstructive pulmonary disease with (acute) exacerbation; I50.32 Chronic diastolic (congestive) heart failure; E87.4 Mixed disorder of acid-base balance; I11.0 Hypertensive heart disease with heart failure; E87.8 Other disorders of electrolyte and fluid balance, not elsewhere classified; E66.9 Obesity, unspecified; F10.129 Alcohol abuse with intoxication, unspecified; F17.210 Nicotine dependence, cigarettes, uncomplicated; Z68.29 Body mass index [BMI] 29.0-29.9, adult; Z79.899 Other long term (current) drug therapy; Z20.822 Contact with and (suspected) exposure to COVID-19
CPT/HCPCS: 0240U; 36415; 70450; 71045; 80048; 80053; 80069; 81001; 81003; 81015; 82805; 82947; 83605; 83735; 83880; 83930; 83935; 84132; 84300; 84484; 84550; 85025; 85610; 85730; 87040; 87086; 87088; 93005; 94640; 94660; 94760; 96361; 96374; 96375; 97116; 97161; 97530; 99285; J1650; J1940; J2930; J3475; J7040; J7512; J7613; J7614; J7644

== ENCOUNTER 2022-09-22 13:16 | Inpatient (IN) | payer OTHER, BC ==
[2022-09-22] MEDS ORDERED: ALBUTEROL INHALER 60 PUFF/8 GM IH PRN (18:39)
[2022-09-22] MEDS ORDERED: DIPHENHYDRAMINE 25 MG TAB/CAP PO PRN (18:53)
[2022-09-22] MEDS ORDERED: HOME MED 1 EA UNK [ALBUTEROL INHALER 60 PUFF/8 GM] IH PRN (19:01)
[2022-09-22] MEDS: PROPRANOLOL HCL 10 MG TAB PO SCH (21:05)
[2022-09-22] MEDS: DEMECLOCYCLINE HCL 150 MG TABLET PO SCH (21:05)
[2022-09-22] MEDS: APIXABAN 2.5 MG TABLET PO SCH (21:05)
[2022-09-22] MEDS: THIAMINE HCL 100 MG TABLET PO SCH (21:05)
[2022-09-23 00:17] LABS: Specific Gravity < 1.005 (1.005-1.030); Urine Bacteria <20 /HPF (<20); Urine Bilirubin NEGATIVE (Negative); Urine Blood Trace (Negative); Urine Clarity Clear (Clear); Urine Color Colorless (Yellow); Urine Glucose NEGATIVE (Negative); Urine Protein NEGATIVE (Negative); Urine RBC <5 /HPF (None Seen); Urine Urobilinogen Normal (Normal); Urine pH 6.5 (5.0-7.0)
[2022-09-23 05:39] LABS: Absolute Lymphocytes (CBC) 1.4 K/uL (0.7-4.9); Hematocrit 35.7 % (39.6-49.0); Lymphocytes % 24.7 % (15.3-44.8); MCV 91.9 fL (80-100); MPV 7.5 fL (7.6-11.3); RBC Red Blood Cell Count 3.89 M/uL (4.33-5.43)
[2022-09-23 05:55] LABS: Albumin 2.6 g/dL (3.4-5.0); Magnesium 2.1 mg/dL (1.6-2.4); Potassium 4.4 mmol/L (3.5-5.1); Prealbumin 11.2 mg/dL (20-40)
[2022-09-23] MEDS: TRELEGY ELLIPTA IH SCH (08:00)
[2022-09-23] MEDS: ALBUTEROL 2.5 MG/3 ML NEB SOL NEB PRN ×4 (08:35→19:40)
[2022-09-23] MEDS: IPRATROPIUM BROM 0.5MG/2.5ML NEB PRN ×4 (08:35→19:40)
[2022-09-23] MEDS: THIAMINE HCL 100 MG TABLET PO SCH ×2 (08:55→20:11)
[2022-09-23] MEDS: APIXABAN 2.5 MG TABLET PO SCH ×2 (08:55→20:11)
[2022-09-23] MEDS: NICOTINE 21 MG/PAT TD SCH (08:55)
[2022-09-23] MEDS: predniSONE 20 MG TAB PO SCH (08:56)
[2022-09-23] MEDS: PROPRANOLOL HCL 10 MG TAB PO SCH ×2 (08:56→20:10)
[2022-09-23] MEDS: TAMSULOSIN 0.4 MG SR CAP PO SCH (08:56)
[2022-09-23] MEDS: DEMECLOCYCLINE HCL 150 MG TABLET PO SCH ×3 (09:56→20:11)
[2022-09-23] MEDS: guaiFENesin 100 MG/5 ML UCUP PO PRN (20:12)
--- NOTE | 2022-09-23 20:44 | HP ---
Date of Admission: 09/22/2022 Time Of Service: 12 noon. Chief Complaint: Very short of breath and now much improved. History Of Present Illness: Mr. Mckeon is a 67-year-old patient with multiple medical problems inclu ding chronic obstructive pulmonary disease, alcohol abuse, hypertension, who came to [facility] with acute respiratory distress on 09/16/2022. He had oxygen saturation of 70% on room air and p H of 7.3 on ABG with CO2 retention. He was treated with BiPAP, IV Solu-Medrol, bronchodilators, magn esium, and subsequent nebulizer treatment. His imaging studies showed pulmonary interstitial marking s which may represent chronic changes or interstitial edema, as well as peribronchial thickening. Hi s sodium was down to 118, chloride 73. It was felt that he was retaining free water, likely related to his chronic alcohol use and he was managed for that. He also was confused with altered mental sta tus and had a CT scan of the head which was done. The CT scan showed no acute ischemic or hemorrhagi c change and the etiology for his altered mental status was noted to be metabolic given his significa nt electrolyte abnormalities, hypoxia, and hypercapnia. The patient also was diagnosed with respirat ory acidosis and again put on ventilation, which did help to improve his course. It should be noted that his respiratory rate on the when he came in was 38 and by the dropped to 30 and his wh ite blood cell count improved from 17,000 on the , until the , it was 13,700, and then, on , 8800. Due to his hospitalization, respiratory distress, altered mental status with metabolic encephalopathy. The patient became significantly debilitated and required moderate assistance for b ed mobilization, transfers, and performing activities of daily living, in addition to ambulating. As a result of his multiple medical problems requiring physician attendance on a daily basis along with aggressive physical, occupational, and speech therapy, it was determined that he would be a more rachel ropriate candidate for inpatient rehabilitation instead of going to a snf facility with a lower level of care. Therefore, he was admitted to the inpatient rehabilitation unit. Past Medical History: COPD, hypertension, alcohol abuse, hyponatremia. Past Surgical History: Hernia repair. Allergies: NO KNOWN DRUG ALLERGIES. Medications: At home, Trelegy Ellipta 100/62.5/25 one inhaled daily, Inderal 10 mg daily, Flomax 0.4 mg daily, Norvasc 10 mg daily, albuterol nebulizer 2 puffs every 4 hours as needed. Family History: Noncontributory. Social History: The patient smokes cigarettes daily. He currently resides in a local intermediate. Drinks alcohol as well. Review of Systems: Aside from shortness of breath, some fatigue with ambulation, improving confusion. He has no very re cent fevers or chills. No rash. No psychiatric issues. No active dermatological complaints. Physical Examination: Vital Signs: Blood pressure 124/65, pulse of 69, respiratory rate 18, temperature 97, oxygen saturat ion 95% on 2 L. General: Mr. Mckeon is resting comfortably. He is in no acute distress. Does have some mild bruisi ng of the arms where he has had multiple IVs in place. Otherwise, he is atraumatic. Sclerae anicter ic. Oropharynx is moist. Neck: Supple. Chest: Clear. Abdomen: Soft but moderately obese. Extremities: No significant edema, cyanosis, or clubbing. Neurologic: Alert and oriented to situation and person. He does follow commands with no significant difficulty. Cranial nerves show no focal deficits. Motor, mild diffuse weakness 4+ upper lower ext remities. Sensation, stocking-glove loss to light touch, temperature. Reflexes depressed in upper a nd lower extremities. Coordination is slow, but intact. Laboratory Studies: White blood cell count 5.6, hemoglobin 11.7, platelets 117. His INR 0.99. Alia ria blood gas on , pH 7.4, PCO2 58, PO2 93.5. Sodium 134, potassium 4.4, chloride 92, carbon di oxide 40, BUN 12, creatinine 0.55, glucose 91, calcium 8.4, albumin 2.6. Pre-albumin 11.2. Imaging Studies: His chest x-ray from 09/19/2022 showed a few areas of segmental atelectasis with matthew ng base, upper lobes were clear. Heart appears borderline enlarged. Current Level Of Functioning: Currently, Mr. Mckeon was able to ambulate 250 feet with 5 standing br eaks to improve tolerance with the rolling walker also covered 150 feet in a wheelchair with bilatera l lower extremities. He did perform functional ambulation again with the occupational therapist 250 feet with contact guard assistance of a rolling walker with 3 rest breaks. Did donning and doffing o f clothes independently. Rehabilitation And Medical Assessment And Plan: Mr. Mckeon is a 67-year-old patient admitted to the rehabilitation unit with a metabolic encephalopathy that is resolving. He has multiple medical probl ems. He came with acute respiratory failure and that is now significantly improved. He has CO2 rete ntion that has improved. He had hypoxia that has much improved. He had hyponatremia that is also im proving and he has history of alcohol abuse. He is not having any evidence of alcohol withdrawal and he did receive thiamine and folic acid and is currently on 200 mg twice daily of thiamine. His rehabilitation impairment category 03, brain dysfunction nontraumatic, and his rehabilitation imp airment group is nontraumatic 02.1. His etiologic diagnosis is metabolic encephalopathy and active c omorbidities are the acute respiratory failure, COPD, hypertension, hypoxic hypercapnia, metabolic en cephalopathy, obesity, and diastolic congestive heart failure. Plan: 1.He left physical and occupational therapy 3-1/2 hours, 5 of 7 days. 2.Will have Eliquis 2.5 mg twice daily for DVT prophylaxis. 3.Continue nebulizers for respiratory failure which is improving. 4.Continue Inderal as stated. 5.Continue Flomax for benign prostatic hypertrophy. 6.Continue thiamine for alcohol withdrawal. Active Comorbidities Present On Admission: As noted above, the comorbidities include COPD, hypertens ion, metabolic encephalopathy, congestive heart failure, acute respiratory failure which are now stab ly managed. Impact Of Comorbidities: Given the patient's alcohol history, he has a possibility of an alcohol wit hdrawal event such as a seizure. He will be watched for. He will have thiamine, folic acid, and alba zodiazepines if appropriate. He did receive BiPAP when he came in initially. At this point, he is ventilating well. If need be t hat can be reinstituted. His blood pressure also will be managed actively. Risk for deep vein throm bosis also managed actively. Rehab Plan: As noted, he will have 3-1/2 hours of physical and occupational therapy 5 of 7 days. Th e patient has a good understanding of reason for admission to the inpatient rehabilitation unit. He has a great potential to make improvement in the disciplines of both physical and occupational therap y to become independent with his ADLs and transfers, mobilization, as well as his cognition and speec h. If need be, additional services will be requested, such as respiratory, nutritional, wound care, and psychiatric. Given his complex medical condition and his state of functioning, it was determined that he would best be served as in inpatient rehabilitation unit rather than on lower level of care. Barriers To Discharge: No significant barriers to discharge. Length Of Stay: 10 days. Disposition: Expected to be home. Prognosis: Good. Rehabilitation Goals: To become independent with upper and lower body dressing. Transferring to celina wer, toilet, and ambulating at least 250 feet with modified independence and to independent, up and d own at least 10 steps with modified independent to independent. I acknowledge that I have personally performed a full physical examination on Mr. Mckeon within 24 ho urs of his admission to the inpatient rehabilitation unit and determined that he is able to tolerate the above course of treatment at the level of intensity required for the period of time as designated . A detailed individualized plan for his care will be completed by hospital day #4 based on his pre-admission screen, admission history and physical and therapy evaluations. EL Voice ID: [id number]
[2022-09-24] MEDS: ALBUTEROL 2.5 MG/3 ML NEB SOL NEB PRN ×3 (01:20→19:10)
[2022-09-24] MEDS: IPRATROPIUM BROM 0.5MG/2.5ML NEB PRN ×3 (01:20→19:10)
[2022-09-24 05:46] LABS: Absolute Lymphocytes (CBC) 1.8 K/uL (0.7-4.9); Hematocrit 36.7 % (39.6-49.0); Lymphocytes % 25.1 % (15.3-44.8); MCV 91.4 fL (80-100); MPV 7.4 fL (7.6-11.3); RBC Red Blood Cell Count 4.01 M/uL (4.33-5.43)
[2022-09-24 06:09] LABS: Albumin 2.7 g/dL (3.4-5.0); Magnesium 2.1 mg/dL (1.6-2.4); Potassium 4.2 mmol/L (3.5-5.1); Prealbumin 15.2 mg/dL (20-40)
[2022-09-24] MEDS: APIXABAN 2.5 MG TABLET PO SCH ×2 (07:38→19:52)
[2022-09-24] MEDS: PROPRANOLOL HCL 10 MG TAB PO SCH ×2 (07:38→19:52)
[2022-09-24] MEDS: NICOTINE 21 MG/PAT TD SCH (07:40)
[2022-09-24] MEDS: TAMSULOSIN 0.4 MG SR CAP PO SCH (07:41)
[2022-09-24] MEDS: THIAMINE HCL 100 MG TABLET PO SCH ×2 (07:41→19:52)
[2022-09-24] MEDS: predniSONE 20 MG TAB PO SCH (07:41)
[2022-09-24] MEDS: TRELEGY ELLIPTA IH SCH (07:41)
--- NOTE | 2022-09-24 08:54 | P.RH.PN ---
Estimated Length of Stay: 10 Expected Discharge Date: 10/02/22 Discharge Disposition Plan: Home Family Support: Yes Senior Care Goal: Mobility, Transfers, Self Care Vital Signs: Last Vital Signs Temp 97.7 F 09/24/22 07:09 Pulse 60 09/24/22 07:38 Resp 17 09/24/22 07:09 BP 130/71 09/24/22 07:38 Pulse Ox 97 09/24/22 07:09 Laboratory: Laboratory Last Values WBC 7.00 K/uL (4.3-10.9) 09/24/22 05:16 RBC 4.01 M/uL (4.33-5.43) L 09/24/22 05:16 Hgb 12.3 g/dL (13.6-17.9) L 09/24/22 05:16 Hct 36.7 % (39.6-49.0) L 09/24/22 05:16 MCV 91.4 fL (80-100) 09/24/22 05:16 MCH 30.6 pg (27.0-35.0) 09/24/22 05:16 MCHC 33.5 g/dL (32.0-36.0) 09/24/22 05:16 RDW 14.1 % (12.1-15.2) 09/24/22 05:16 Plt Count 136 K/uL (152-406) L 09/24/22 05:16 MPV 7.4 fL (7.6-11.3) L 09/24/22 05:16 Total Counted Cancelled 09/23/22 05:15 Neutrophils % 58.6 % (41.7-73.7) 09/24/22 05:16 Lymphocytes % 25.1 % (15.3-44.8) 09/24/22 05:16 Monocytes % 14.2 % (3.3-12.3) H 09/24/22 05:16 Eosinophils % 1.4 % (0-4.4) 09/24/22 05:16 Basophils % 0.7 % (0-1.3) 09/24/22 05:16 Megakaryocytes % Cancelled 09/23/22 05:15 Absolute Neutrophils 4.1 K/uL (1.8-8.0) 09/24/22 05:16 Segmented Neutrophils Cancelled 09/23/22 05:15 Band Neutrophils Cancelled 09/23/22 05:15 Absolute Lymphocytes 1.8 K/uL (0.7-4.9) 09/24/22 05:16 Lymphocytes Cancelled 09/23/22 05:15 Monocytes Cancelled 09/23/22 05:15 Absolute Monocytes 1.0 K/uL (0.1-1.3) 09/24/22 05:16 Eosinophils Cancelled 09/23/22 05:15 Absolute Eosinophils 0.1 K/uL (0-0.5) 09/24/22 05:16 Basophils Cancelled 09/23/22 05:15 Absolute Basophils 0.1 K/uL (0-0.5) 09/24/22 05:16 Metamyelocytes Cancelled 09/23/22 05:15 Myelocytes Cancelled 09/23/22 05:15 Promyelocytes Cancelled 09/23/22 05:15 Nucleated RBCs Cancelled 09/23/22 05:15 Hypersegmented Neuts Cancelled 09/23/22 05:15 Hypogranular Neuts Cancelled 09/23/22 05:15 Atypical Lymphocytes Cancelled 09/23/22 05:15 Reactive Lymphocytes Cancelled 09/23/22 05:15 Lymphoblasts Cancelled 09/23/22 05:15 Blast Cells Cancelled 09/23/22 05:15 Immature Blood Cells Cancelled 09/23/22 05:15 Plasma Cells Cancelled 09/23/22 05:15 Smudge Cells Cancelled 09/23/22 05:15 Toxic Granulation Cancelled 09/23/22 05:15 Dohle Bodies Cancelled 09/23/22 05:15 Pelger-Huet Cells Cancelled 09/23/22 05:15 Luis Rods Cancelled 09/23/22 05:15 Platelet Estimate Cancelled 09/23/22 05:15 Clumped Platelets Cancelled 09/23/22 05:15 Giant Platelets Cancelled 09/23/22 05:15 Polychromasia Cancelled 09/23/22 05:15 Hypochromasia Cancelled 09/23/22 05:15 Poikilocytosis Cancelled 09/23/22 05:15 Basophilic Stippling Cancelled 09/23/22 05:15 Anisocytosis Cancelled 09/23/22 05:15 Microcytosis Cancelled 09/23/22 05:15 Macrocytosis Cancelled 09/23/22 05:15 Spherocytes Cancelled 09/23/22 05:15 Sickle Cells Cancelled 09/23/22 05:15 Target Cells Cancelled 09/23/22 05:15 Tear Drop Cells Cancelled 09/23/22 05:15 Ovalocytes Cancelled 09/23/22 05:15 Stomatocytes Cancelled 09/23/22 05:15 Garcia-Lakeline Bodies Cancelled 09/23/22 05:15 Burnham Cells Cancelled 09/23/22 05:15 Spur Cells Cancelled 09/23/22 05:15 Rouleaux Cancelled 09/23/22 05:15 Cold Agglutinates Cancelled 09/23/22 05:15 Other Red Blood Cells Cancelled 09/23/22 05:15 Unidentified Cells Cancelled 09/23/22 05:15 Schistocytes Cancelled 09/23/22 05:15 Morphology Comment Cancelled 09/23/22 05:15 Sodium 135 mmol/L (136-145) L 09/24/22 05:16 Potassium 4.2 mmol/L (3.5-5.1) 09/24/22 05:16 Chloride 91 mmol/L (98-107) L 09/24/22 05:16 Carbon Dioxide 40 mmol/L (21-32) H 09/24/22 05:16 Anion Gap 8.2 mEq/L (5.0-15.0) 09/24/22 05:16 BUN 14 mg/dL (7-18) 09/24/22 05:16 Creatinine 0.61 mg/dL (0.70-1.30) L 09/24/22 05:16 Est GFR (CKD-EPI) 107 ml/min (=/>90) 09/24/22 05:16 Glucose 100 mg/dL (74-106) 09/24/22 05:16 Calcium 8.9 mg/dL (8.5-10.1) 09/24/22 05:16 Magnesium 2.1 mg/dL (1.6-2.4) 09/24/22 05:16 Albumin 2.7 g/dL (3.4-5.0) L 09/24/22 05:16 Prealbumin 15.2 mg/dL (20-40) L 09/24/22 05:16 Urine Color Colorless (Yellow) 09/22/22 23:30 Urine Clarity Clear (Clear) 09/22/22 23:30 Urine pH 6.5 (5.0-7.0) 09/22/22 23:30 Ur Specific [place] < 1.005 (1.005-1.030) L 09/22/22 23:30 Glucose (UA)(Auto) Negative (Negative) 09/22/22 23:30 Urine Ketones Negative (Negative) 09/22/22 23:30 Urine Blood Trace (Negative) H 09/22/22 23:30 Urine Nitrite Negative (Negative) 09/22/22 23:30 Urine Bilirubin Negative (Negative) 09/22/22 23:30 Urine Urobilinogen Normal (Normal) 09/22/22 23:30 Ur Leukocyte Esterase 25 Teddy/uL (Negative) H 09/22/22 23:30 Urine RBC <5 /HPF (None Seen) 09/22/22 23:30 Urine Red Cell Clumps Cancelled 09/22/22 21:10 Urine WBC <5 /HPF (<5) 09/22/22 23:30 Urine WBC Clumps Cancelled 09/22/22 21:10 Ur Squamous Epith Cells None seen /HPF (None Seen) 09/22/22 23:30 U Non-Squamous Epi Cells Cancelled 09/22/22 21:10 Ur Transition Epith Cell Cancelled 09/22/22 21:10 Ur Renal Epithelial Cell Cancelled 09/22/22 21:10 Calcium Carbonate Cryst Cancelled 09/22/22 21:10 Calcium Oxalate Crystal Cancelled 09/22/22 21:10 Leucine Crystals Cancelled 09/22/22 21:10 Cystine Crystals Cancelled 09/22/22 21:10 Uric Acid Crystals Cancelled 09/22/22 21:10 Triple Phos Crystals Cancelled 09/22/22 21:10 Tyrosine Crystals Cancelled 09/22/22 21:10 Unidentified Crystals Cancelled 09/22/22 21:10 Amorphous Crystals Cancelled 09/22/22 21:10 Urine Bacteria <20 /HPF (<20) 09/22/22 23:30 Hyaline Casts Cancelled 09/22/22 21:10 Granular Casts Cancelled 09/22/22 21:10 Waxy Casts Cancelled 09/22/22 21:10 RBC Casts Cancelled 09/22/22 21:10 WBC Casts Cancelled 09/22/22 21:10 Urine Mucus Cancelled 09/22/22 21:10 Urine Trichomonas Cancelled 09/22/22 21:10 Ur Yeast w Hyphae Cancelled 09/22/22 21:10 Urine Yeast (Budding) Cancelled 09/22/22 21:10 Urine Sperm Cancelled 09/22/22 21:10 Ur Oval Fat Bodies Cancelled 09/22/22 21:10 Urine Culture Reflexed Not needed 09/22/22 23:30 Urine Total Protein Negative (Negative) 09/22/22 23:30 Urine Ascorbic Acid Cancelled 09/22/22 21:10 Urine Fat Cancelled 09/22/22 21:10 SARS-CoV-2 Rap RNA(RT-PCR) Negative (NEGATIVE) 09/23/22 04:30 Weight: 220 lb 4.8 oz Wound Present: No Closed Surgical Incision Present: No Negative Pressure Wound Therapy Present: No Physician Update: His labs were reviewed and are stable. Mild generalized weakness. Walking 250' with CGA. Minimum assistance with ADLs. Summary: Patient's care plan and rn long term care goals have been reviewed and revised as necessary. Please see the Rehabilitation Signature page for all necessary signatures.
[2022-09-24] MEDS: DEMECLOCYCLINE HCL 150 MG TABLET PO SCH ×3 (10:09→19:53)
[2022-09-24] MEDS: guaiFENesin 100 MG/5 ML UCUP PO PRN (15:17)
[2022-09-24] MEDS: ENSURE ENLIVE 237 ML CAN PO SCH (19:53)
[2022-09-25] MEDS ORDERED: FE SULF/FA/VIT B COMP & C TAB PO SCH (08:00)
[2022-09-25] MEDS: TRELEGY ELLIPTA IH SCH (08:00)
[2022-09-25] MEDS: APIXABAN 2.5 MG TABLET PO SCH ×2 (09:20→19:55)
[2022-09-25] MEDS: THIAMINE HCL 100 MG TABLET PO SCH ×2 (09:20→19:56)
[2022-09-25] MEDS: PROPRANOLOL HCL 10 MG TAB PO SCH ×2 (09:20→19:56)
[2022-09-25] MEDS: TAMSULOSIN 0.4 MG SR CAP PO SCH (09:20)
[2022-09-25] MEDS: predniSONE 20 MG TAB PO SCH (09:21)
[2022-09-25] MEDS: NICOTINE 21 MG/PAT TD SCH (09:21)
[2022-09-25] MEDS: ENSURE ENLIVE 237 ML CAN PO SCH ×2 (09:23→19:56)
[2022-09-25] MEDS: DEMECLOCYCLINE HCL 150 MG TABLET PO SCH ×2 (09:49→16:12)
[2022-09-25] MEDS: ALBUTEROL 2.5 MG/3 ML NEB SOL NEB PRN ×2 (14:18→20:35)
[2022-09-25] MEDS: IPRATROPIUM BROM 0.5MG/2.5ML NEB PRN ×2 (14:18→20:35)
[2022-09-25] MEDS: guaiFENesin 100 MG/5 ML UCUP PO PRN (20:30)
[2022-09-26] MEDS: ACETAMINOPHEN 500 MG TAB PO PRN ×2 (01:26→10:21)
[2022-09-26] MEDS: TRELEGY ELLIPTA IH SCH (08:00)
[2022-09-26] MEDS: guaiFENesin 100 MG/5 ML UCUP PO PRN (08:09)
[2022-09-26] MEDS: APIXABAN 2.5 MG TABLET PO SCH ×2 (08:17→19:29)
[2022-09-26] MEDS: PROPRANOLOL HCL 10 MG TAB PO SCH ×2 (08:17→19:30)
[2022-09-26] MEDS: TAMSULOSIN 0.4 MG SR CAP PO SCH (08:17)
[2022-09-26] MEDS: predniSONE 20 MG TAB PO SCH (08:17)
[2022-09-26] MEDS: NICOTINE 21 MG/PAT TD SCH (08:18)
[2022-09-26] MEDS: ENSURE ENLIVE 237 ML CAN PO SCH ×2 (08:18→19:30)
[2022-09-26] MEDS: THIAMINE HCL 100 MG TABLET PO SCH ×2 (08:19→19:29)
[2022-09-26] MEDS: IPRATROPIUM BROM 0.5MG/2.5ML NEB PRN ×3 (09:10→20:55)
[2022-09-26] MEDS: ALBUTEROL 2.5 MG/3 ML NEB SOL NEB PRN ×3 (09:10→20:55)
[2022-09-26] MEDS: LIDOCAINE 4% PATCH TOP SCH (10:21)
[2022-09-27] MEDS: TRELEGY ELLIPTA IH SCH (08:00)
[2022-09-27] MEDS: LIDOCAINE 4% PATCH TOP SCH (08:13)
[2022-09-27] MEDS: APIXABAN 2.5 MG TABLET PO SCH ×2 (08:14→19:24)
[2022-09-27] MEDS: NICOTINE 21 MG/PAT TD SCH (08:14)
[2022-09-27] MEDS: PROPRANOLOL HCL 10 MG TAB PO SCH ×2 (08:17→19:24)
[2022-09-27] MEDS: predniSONE 20 MG TAB PO SCH (08:17)
[2022-09-27] MEDS: THIAMINE HCL 100 MG TABLET PO SCH ×2 (08:17→19:24)
[2022-09-27] MEDS: TAMSULOSIN 0.4 MG SR CAP PO SCH (08:17)
[2022-09-27] MEDS: ALBUTEROL 2.5 MG/3 ML NEB SOL NEB PRN ×3 (09:03→20:27)
[2022-09-27] MEDS: IPRATROPIUM BROM 0.5MG/2.5ML NEB PRN ×3 (09:03→19:20)
[2022-09-27] MEDS: ENSURE ENLIVE 237 ML CAN PO SCH ×2 (09:11→19:24)
[2022-09-28] MEDS: TAMSULOSIN 0.4 MG SR CAP PO SCH (07:13)
[2022-09-28] MEDS: APIXABAN 2.5 MG TABLET PO SCH ×2 (07:13→19:29)
[2022-09-28] MEDS: ACETAMINOPHEN 500 MG TAB PO PRN (07:13)
[2022-09-28] MEDS: THIAMINE HCL 100 MG TABLET PO SCH ×2 (07:14→19:29)
[2022-09-28] MEDS: TRELEGY ELLIPTA IH SCH (07:15)
[2022-09-28] MEDS: LIDOCAINE 4% PATCH TOP SCH (08:40)
[2022-09-28] MEDS: PROPRANOLOL HCL 10 MG TAB PO SCH ×2 (08:40→19:29)
[2022-09-28] MEDS: NICOTINE 21 MG/PAT TD SCH (08:40)
[2022-09-28] MEDS: predniSONE 20 MG TAB PO SCH (08:41)
[2022-09-28] MEDS: ENSURE ENLIVE 237 ML CAN PO SCH ×2 (09:00→19:30)
[2022-09-28] MEDS: ALBUTEROL 2.5 MG/3 ML NEB SOL NEB PRN (12:45)
[2022-09-28] MEDS: IPRATROPIUM BROM 0.5MG/2.5ML NEB PRN (12:45)
--- NOTE | 2022-09-29 01:17 | PN ---
Date of Progress Note: 09/28/2022 [facility]-Pt[facility] Progress Note Visit Time Of Service: 12 p.m. Subjective: Mr. Mckeon reports doing well. He denies any significant problems such as pain and any issues of type of alcohol withdrawal symptoms such as tachycardia, confusion, or disorientation. He has no issues with bowel movements and urination. No other complaints. Review of Systems: No fevers, chills, nausea, vomiting, myalgias, arthralgias, rash, or weight change. Physical Examination: Vital Signs: Blood pressure 132/64, pulse 62, respiratory rate 16, temperature 97.4, and oxygen satu ration 98% on room air. Weight 217 pounds, height 5 feet 11 inches, BMI 30.3. General: Mr. Mckeon is in bed, in the Pain Therapy sessions. He has no complaints. HEENT: He is normocephalic, atraumatic. Sclerae anicteric. Oropharynx is pink and moist. Neck: Supple. Chest: Clear. Heart: Regular. Extremities: No edema or cyanosis. Neurologic: No focal findings in terms of motor, coordination, or sensory examination. Laboratory Studies: No new laboratory studies. X-ray/imaging: No new x-ray or imaging. Medications: Tylenol 500 mg every 4 hours, albuterol nebulizer 2.5 mg every 6 hours, Eliquis 2.5 mg twice daily, Benadryl 50 mg at bedtime, guaifenesin 200 mg 4 times daily as needed for cough, ipratro pium nebulizer 0.5 mg every 6 hours as needed, lidocaine patch to the right knee daily, nicotine patc h 21 mg daily, Ensure Enlive 237 mL twice daily, prednisone 10 mg daily, Inderal 10 mg twice daily, F huong 0.4 mg daily, and thiamine 200 mg twice daily. Current Level Of Functioning: Currently, Mr. Mckeon was able to ambulate on multiple surfaces both i nside and outside the hospital. He did cover 500 feet twice, another 175 feet twice and 125 feet twi ce with standby assistance with emphasis on upright posture. He did have 2 L of oxygen via nasal can nula and did take some rest breaks. He also ascended and descended 15 steps twice with both handrail s independently and mobilized a wheelchair 200 feet with upper extremity strength for stamina and did that independently. He completed shower, dressing, toileting, and hygiene independently and use of the toilet again independently and the urinal independently as well and he did have 2 L of oxygen by nasal cannula with 96% above oxygenation. All ADLs completed during this session and again doing neela quate with 2 L of oxygen above 96% saturation. Assessment: Mr. Mckeon is a 67-year-old patient is in the rehabilitation unit with metabolic encepha lopathy that is resolving very well. He has debility, also resolving very well. He had hypoxia and hypercapnia that has not resolved. He had hyponatremia resolving and also alcohol abuse and he has n ot had any evidence of withdrawal and he is on thiamine and folic acid. His diastolic congestive hea rt failure is very well managed at this point. No evidence of any exacerbation. Plan: 1.Continue physical and occupational therapy as noted for 3.5 hours, 5 to 7 days. 2.Continue Eliquis 2.5 mg twice daily for DVT prophylaxis. 3.Continue with Flomax for prostatic hypertrophy. 4.Continue with thiamine for alcohol withdrawal. 5.Continue with nebulizers for COPD. 6.Continue oxygen 2 L via nasal cannula. Comorbidities That Continue To Impact Rehabilitation: At this point, his comorbid conditions are sta ble and well managed and do not inhibit his ability to excel in therapy and do very well with the goa l of independence for his ability to perform upper and lower body dressing, transferring, showering, toileting, and ambulating over 500 feet independently up and down 15 steps i ndependently. LB/MODL Voice ID: [id number] Report ID: [id number]
[2022-09-29] MEDS: LIDOCAINE 4% PATCH TOP SCH (07:35)
[2022-09-29] MEDS: NICOTINE 21 MG/PAT TD SCH (07:54)
[2022-09-29] MEDS: ENSURE ENLIVE 237 ML CAN PO SCH ×2 (07:55→19:47)
[2022-09-29] MEDS: PROPRANOLOL HCL 10 MG TAB PO SCH ×2 (07:57→19:47)
[2022-09-29] MEDS: TAMSULOSIN 0.4 MG SR CAP PO SCH (07:57)
[2022-09-29] MEDS: THIAMINE HCL 100 MG TABLET PO SCH ×2 (07:57→19:47)
[2022-09-29] MEDS: APIXABAN 2.5 MG TABLET PO SCH ×2 (07:57→19:47)
[2022-09-29] MEDS: predniSONE 10 MG TAB PO SCH (07:58)
[2022-09-29] MEDS: TRELEGY ELLIPTA IH SCH (07:58)
[2022-09-29] MEDS: ALBUTEROL 2.5 MG/3 ML NEB SOL NEB PRN (09:30)
[2022-09-29] MEDS: IPRATROPIUM BROM 0.5MG/2.5ML NEB PRN (09:30)
--- NOTE | 2022-09-29 21:29 | PN ---
Date of Progress Note: 09/29/2022 Time Of Service: 12:30 p.m. Subjective: Mr. Mckeon is doing well. He has no new complaints except there is some mild pain in th e right lateral knee and a pain patch is helping him with that. He was ambulating at the time I saw the patient. Review of Systems: No fevers, chills, nausea, vomiting. Again, mild pain at the corner of his right knee that is manage d and he actually had walked over 250 feet at that time. Physical Examination: Vital Signs: Blood pressure 125/62, pulse 70, respiratory rate of 16, temperature 97.6, oxygen satur ation 96%. He had 2 L via nasal cannula while ambulating. General: Mr. Mckeon is normocephalic, atraumatic. HEENT: Sclerae anicteric. Oropharynx is pink and moist. Neck: Supple. Chest: Clear. Heart: Regular. Extremities: Show no edema, cyanosis, or clubbing. Neurological: Has no focal neurological deficits. Laboratory Studies: No new laboratory studies. X-ray imaging: No new x-ray imaging. Medications: Remain unchanged. As noted, he has 2.5 mg Eliquis twice daily for DVT prophylaxis. Ba s nicotine patch and thiamine along with Inderal as well. Current Level Of Functioning: Today, he ambulated 500 feet twice, another 350 feet once, another 100 feet once with standby assistance using a rolling walker. He ascended and descended 15 steps twice with bilateral handrails independently. He self mobilized wheelchair 250 feet with upper extremities to improve strength. He made excellent progress with physical and occupational therapy towards independence with upper bod y and lower body dressing, transferring to toilet and tub along with showering, performing activities of daily living, and ambulates now over 500 feet with independence, up and down 15 steps with indepe ndence. Assessment: Mr. Mckeon is a 67-year-old patient in the rehabilitation unit with metabolic encephalop athy, which has resolved very well. He has also debility and is resolving very well. He had hypoxia and hypercapnia that has also resolved. Hyponatremia has resolved. He has no evidence of alcohol w ithdrawal and he is being treated for that. Plan: 1.Continue with physical and occupational therapy 3-1/2 hours 5-7 days. 2.Eliquis 2.5 mg twice daily for DVT prophylaxis. 3.Flomax for prostate hypertrophy. 4.Thiamine and folic acid for alcohol withdrawal. 5.Nebulizers for COPD. He also has 2 L of oxygen for his COPD. Comorbidities That Continue To Impact His Rehabilitation: At this point, he has no comorbidities marnie t stop him from thriving and doing very well. He does have some right knee pain managed with a pain patch. LB/MODL Voice ID: [id number] Report ID: [id number]
[2022-09-30] MEDS: NICOTINE 21 MG/PAT TD SCH (06:55)
[2022-09-30] MEDS: LIDOCAINE 4% PATCH TOP SCH (06:56)
[2022-09-30] MEDS: APIXABAN 2.5 MG TABLET PO SCH (07:33)
[2022-09-30] MEDS: TAMSULOSIN 0.4 MG SR CAP PO SCH (07:33)
[2022-09-30] MEDS: PROPRANOLOL HCL 10 MG TAB PO SCH (07:33)
[2022-09-30] MEDS: THIAMINE HCL 100 MG TABLET PO SCH (07:33)
[2022-09-30] MEDS: predniSONE 10 MG TAB PO SCH (07:33)
[2022-09-30] MEDS: ENSURE ENLIVE 237 ML CAN PO SCH (07:34)
[2022-09-30 07:35] VITALS: BP 118/70
[2022-09-30] MEDS: TRELEGY ELLIPTA IH SCH (07:35)
[2022-09-30 07:36] VITALS: TEMP 97.6
[2022-09-30 09:52] VITALS: O2SAT 99
[2022-09-30] MEDS: ALBUTEROL 2.5 MG/3 ML NEB SOL NEB PRN (11:35)
[2022-09-30] MEDS: IPRATROPIUM BROM 0.5MG/2.5ML NEB PRN (11:35)
== END 2022-09-30 15:15 | disposition home health service (06) | DRG 947 ==
LOC: 5TH 17:13
PROVIDERS: ADMIT Psychiatry & Neurology Neurology with Special Qualifications in Child Neurology; ATTEND Psychiatry & Neurology Neurology with Special Qualifications in Child Neurology
DX: R53.81 Other malaise (principal); G93.41 Metabolic encephalopathy; J96.02 Acute respiratory failure with hypercapnia; J96.01 Acute respiratory failure with hypoxia; E87.1 Hypo-osmolality and hyponatremia; J44.9 Chronic obstructive pulmonary disease, unspecified; F10.10 Alcohol abuse, uncomplicated; I10 Essential (primary) hypertension; F17.210 Nicotine dependence, cigarettes, uncomplicated; I11.0 Hypertensive heart disease with heart failure; I50.9 Heart failure, unspecified; Z20.822 Contact with and (suspected) exposure to COVID-19
CPT/HCPCS: 36415; 80048; 81001; 82040; 83735; 84134; 85025; 92523; 94640; 97110; 97112; 97116; 97124; 97162; 97165; 97530; 97542; J2001; J7512; J7613; J7644; U0003

== ENCOUNTER 2022-10-20 10:14 | Emergency (ER) | payer OTHER, BC ==
[2022-10-20 12:03] LABS: Absolute Lymphocytes (CBC) 1.4 K/uL (0.7-4.9); Hematocrit 41.9 % (39.6-49.0); Lymphocytes % 8.3 % (15.3-44.8); MCV 91.9 fL (80-100); RBC Red Blood Cell Count 4.56 M/uL (4.33-5.43)
--- NOTE | 2022-10-20 12:10 | RAD REPORT ---
EXAM DESCRIPTION: US - Extrem Venous W Compress Mitchel - 10/20/2022 11:14 am CLINICAL HISTORY: Swelling COMPARISON: None. TECHNIQUE: Real-time sonographic evaluation of the bilateral lower extremity deep venous systems was performed. FINDINGS: Normal compressibility, flow augmentation, phasic flow and spontaneous flow is identified in both the left and right lower extremity deep venous systems. No intraluminal filling defects seen. IMPRESSION: No DVT in either lower extremity.
--- NOTE | 2022-10-20 12:14 | RAD REPORT ---
EXAM DESCRIPTION: RADChest Single View10/20/2022 11:28 am CLINICAL HISTORY: SOB COMPARISON: Chest Single View dated 09/19/2022; Chest Single View dated 09/16/2022; Chest Single View dated 08/11/2022; Chest Single View dated 08/09/2022 TECHNIQUE: Portable AP view of the chest. FINDINGS: Developing left basilar streaky airspace opacities. No pneumothorax or effusion. The cardi omediastinal contours are unremarkable. IMPRESSION: Left basilar developing streaky opacities, could reflect early pneumonia.
[2022-10-20 12:19] LABS: Potassium 4.1 mmol/L (3.5-5.1)
[2022-10-20] MEDS ORDERED: CEFTRIAXONE 1000 MG/VIAL ONE (13:09)
--- NOTE | 2022-10-20 13:38 | EDPHYS ---
Physician Documentation [facility] Name: Randolph Mckeon Age: 67 yrs Sex: Male : 1955 Arrival Date: 10/20/2022 Time: 10:16 Bed 17 Private MD: ED Physician Song Herrera HPI: 10/20 10:36 This 67 yrs old Male presents to ER via Wheelchair with complaints of Breathing jmm Difficulty, Leg Swelling. 10:36 The patient has shortness of breath at rest. Onset: The symptoms/episode began/occurred jmm gradually, today. Is a 67-year-old male with history of COPD and hypertension the presents emerged department with complaints of lower extremity swelling and difficulty breathing. Patient was recently released from the hospital due to hyponatremia and difficulty breathing about a week ago. Denies fever. Denies abdominal pain. Denies chest pain. Historical: - Allergies: 10:34 No Known Allergies; vg1 - Home Meds: 10:34 Amlodipine [Active]; tamsulosin Oral [Active]; Lasix Oral [Active]; vg1 - PMHx: 10:34 COPD; Hypertension; vg1 - Immunization history:: Client reports having NOT received the Covid vaccine. - Social history:: Smoking status: Patient reports the use of cigarette tobacco products, smokes one pack cigarettes per day. ROS: 10:36 Constitutional: Negative for fever, chills, and weight loss, Cardiovascular: Negative jmm for chest pain, palpitations, and edema. 10:36 Respiratory: Positive for shortness of breath. 10:36 MS/extremity: Positive for swelling. 10:36 All other systems are negative. Exam: 10:36 Constitutional: This is a well developed, well nourished patient who is awake, alert, jmm and in no acute distress. Head/Face: atraumatic. Eyes: EOMI, no conjunctival erythema appreciated ENT: Moist Mucus Membranes Neck: Trachea midline, Supple Chest/axilla: Normal chest wall appearance and motion. Cardiovascular: Regular rate and rhythm. No edema appreciated Respiratory: Normal respirations, no respiratory distress appreciated Abdomen/GI: Non distended Back: Normal ROM Skin: General appearance color normal 10:36 Musculoskeletal/extremity: Edema noted bilaterally, full dorsalis pedis pulse, compartments are soft, neurovascular intact. 10:36 Skin: Appearance: Color: normal in color. 10:36 Neuro: Orientation: is normal, Mentation: is normal, Memory: is normal. 10:36 Psych: Behavior/mood is pleasant, cooperative. Vital Signs: 10:30 BP 124 / 63; Pulse 69; Resp 24; Temp 98.4(TE); Pulse Ox 94% on R/A; Weight 100.24 kg; vg1 Height 5 ft. 11 in. (180.34 cm); Pain 3/10; 11:57 BP 117 / 64; Pulse 76; Resp 18; Pulse Ox 95% ; ko1 13:40 BP 120 / 77; Pulse 84; Resp 20; Pulse Ox 95% on R/A; ko1 10:30 Body Mass Index 30.82 (100.24 kg, 180.34 cm) vg1 MDM: 10:36 Patient medically screened. m 13:36 Differential diagnosis: pneumonia, copd, acute mi. Data reviewed: vital signs, nurses [facility] notes, lab test result(s), radiologic studies. 16:33 ED course: Patient is alert nontoxic in appearance in the ED. No signs respiratory jm distress. Will treat with oral antibiotics. Patient otherwise given strict return precautions. patient understood and agrees with the plan of care. . 10/20 10:37 Order name: Basic Metabolic Panel; Complete Time: 12:19 [facility] 10/20 10:37 Order name: CBC with Diff; Complete Time: 12:08 [facility] 10/20 10:37 Order name: NT PRO-BNP; Complete Time: 12:19 [facility] 10/20 10:37 Order name: Troponin HS; Complete Time: 12:19 [facility] 10/20 10:37 Order name: XRAY Chest (1 view); Complete Time: 12:17 [facility] 10/20 10:37 Order name: EKG; Complete Time: 10:38 [facility] 10/20 10:37 Order name: Cardiac monitoring; Complete Time: 11:40 [facility] 10/20 10:37 Order name: EKG - Nurse/Tech; Complete Time: 11:53 [facility] 10/20 10:37 Order name: IV Saline Lock; Complete Time: 11:52 [facility] 10/20 10:37 Order name: Labs collected and sent; Complete Time: 11:52 [facility] 10/20 10:37 Order name: O2 Per Protocol; Complete Time: 11:40 [facility] 10/20 10:37 Order name: O2 Sat Monitoring; Complete Time: 11:40 [facility] 10/20 10:37 Order name: US Extremity Venous W Compression Mitchel; Complete Time: 12:17 [facility] 10/20 12:18 Order name: Lactate w/ 2H reflex if indic.; Complete Time: 13:22 [facility] 10/20 12:18 Order name: Blood Culture Adult (2) [facility] Administered Medications: 13:11 Drug: Rocephin (cefTRIAXone) 1 grams Route: IV; Rate: calculated rate; Site: right ko1 forearm; 13:35 Follow up: Response: No adverse reaction ko1 13:38 Drug: LevaQUIN (levofloxacin) 750 mg Route: PO; ko1 Disposition: 13:47 Co-signature as Attending Physician, Song Herrera DO I was immediately available on-site ms3 in the Emergency Department for consultation in the care of the patient. Disposition Summary: 10/20/22 13:37 Discharge Ordered Location: Home [facility] Condition: Stable [facility] Diagnosis - Edema, unspecified jmm - Pneumonia [facility] Followup: [facility] - With: Private Physician - When: 2 - 3 days - Reason: Recheck today's complaints, Continuance of care, Re-evaluation by your physician Discharge Instructions: - Discharge Summary Sheet jmm - Community-Acquired Pneumonia, Adult jm - Peripheral Edema jm - Hospital-Acquired Pneumonia [facility] Forms: - Medication Reconciliation Form [facility] - Thank You Letter m - Antibiotic Education jmm - Prescription Opioid Use [facility] Prescriptions: - levofloxacin 750 mg Oral Tablet - take 1 tablet by ORAL route once daily 9 days Take your first dose tomorrow. [facility] You were given your daily dose in the Emergency Room.; 9 tablet; Refills: 0, Product Selection Permitted Signatures: Dispatcher [employer] EDArian Jenkins PA PA jmm Garcia, Victoria, RN RN vg1 Song Herrera DO DO ms3 Uzma Tidwell RN RN ko1
--- NOTE | 2022-10-20 13:38 | ER ---
Nurse's Notes [facility] Name: Randolph Mckeon Age: 67 yrs Sex: Male : 1955 Arrival Date: 10/20/2022 Time: 10:16 Bed 17 Private MD: Diagnosis: Edema, unspecified;Pneumonia Presentation: 10/20 10:30 Chief complaint: Patient states: Was told by home health nurse to come to ED due to vg1 auscultating lungs and heard 'wheezing'. Pt stated SOB, swelling SINDY legs, and gain 4lbs in a week. Denies chest pain. Coronavirus screen: Vaccine status: Patient reports being unvaccinated. Client denies travel out of the [place] in the last 14 days. Ebola Screen: Patient negative for fever greater than or equal to 101.5 degrees Fahrenheit, and additional compatible Ebola Virus Disease symptoms. Initial Sepsis Screen: Does the patient meet any 2 criteria? RR > 20 per min. Does the patient have a suspected source of infection? No. Patient's initial sepsis screen is negative. Risk Assessment: Do you want to hurt yourself or someone else? Patient reports no desire to harm self or others. Onset of symptoms was October 20, 2022. 10:30 Method Of Arrival: Wheelchair vg1 10:30 Acuity: YANNICK 3 vg1 Triage Assessment: 10:34 General: Appears in no apparent distress. uncomfortable, Behavior is calm, cooperative. vg1 Pain: Complains of pain in right leg and left leg Pain currently is 3 out of 10 on a pain scale. Neuro: Level of Consciousness is awake, alert, obeys commands, Oriented to person, place, time, situation. Respiratory: Reports shortness of breath at rest on exertion Onset: The symptoms/episode began/occurred gradually, the patient has mild shortness of breath. Historical: - Allergies: 10:34 No Known Allergies; vg1 - Home Meds: 10:34 Amlodipine [Active]; tamsulosin Oral [Active]; Lasix Oral [Active]; vg1 - PMHx: 10:34 COPD; Hypertension; vg1 - Immunization history:: Client reports having NOT received the Covid vaccine. - Social history:: Smoking status: Patient reports the use of cigarette tobacco products, smokes one pack cigarettes per day. Screenin:[facility] ED Fall Risk Assessment (Adult) History of falling in the last 3 months, vg1 including since admission No falls in past 3 months (0 pts) Confusion or Disorientation No (0 pts) Intoxicated or Sedated No (0 pts) Impaired Gait Yes (1 pt) Mobility Assist Device Used Yes (1 pt) Altered Elimination No (0 pt) Score/Fall Risk Level 0 - 2 = Low Risk Oriented to surroundings, Maintained a safe environment, Educated pt \T\ family on fall prevention, incl call for assistance when getting out of bed, Assessed \T\ reinforced patient's understanding of fall precautions. Abuse screen: Denies threats or abuse. Denies injuries from another. Nutritional screening: No deficits noted. Tuberculosis screening: No symptoms or risk factors identified. Assessment: 11:55 General: Appears in no apparent distress. comfortable, Behavior is calm, cooperative, ko1 appropriate for age. Pain: Denies pain. Neuro: No deficits noted. Cardiovascular: Rhythm is regular Parent/caregiver reports patient has had shortness of breath. Respiratory: Airway is patent Respiratory effort is even, labored, Respiratory pattern is tachypnea Breath sounds with crackles bilaterally. Breath sounds with wheezes bilaterally. GI: No deficits noted. : No deficits noted. EENT: No deficits noted. Derm: No deficits noted. Musculoskeletal: No deficits noted. Vital Signs: 10:30 BP 124 / 63; Pulse 69; Resp 24; Temp 98.4(TE); Pulse Ox 94% on R/A; Weight 100.24 kg; vg1 Height 5 ft. 11 in. (180.34 cm); Pain 3/10; 11:57 BP 117 / 64; Pulse 76; Resp 18; Pulse Ox 95% ; ko1 13:40 BP 120 / 77; Pulse 84; Resp 20; Pulse Ox 95% on R/A; ko1 10:30 Body Mass Index 30.82 (100.24 kg, 180.34 cm) vg1 ED Course: 10:16 Patient arrived in ED. am2 10:17 Arian Ramos PA is PHCP. belkis 10:17 Song Herrera DO is Attending Physician. jmm 10:34 Triage completed. vg1 10:34 Arm band placed on. vg1 11:16 US Extremity Venous W Compression Sindy In Process Unspecified. EDMS 11:29 XRAY Chest (1 view) In Process Unspecified. EDMS 11:39 Uzma Tidwell, RN is Primary Nurse. ko1 11:52 Basic Metabolic Panel Sent. ko1 11:52 CBC with Diff Sent. ko1 11:52 NT PRO-BNP Sent. ko1 11:52 Troponin HS Sent. ko1 11:53 Inserted saline lock: 20 gauge in right forearm, using aseptic technique. Blood ss collected. 11:55 Patient has correct armband on for positive identification. Bed in low position. Call ko1 light in reach. Side rails up X 1. Client placed on continuous cardiac and pulse oximetry monitoring. NIBP monitoring applied. site monitor on. Warm blanket given. Pillow given. 11:55 No provider procedures requiring assistance completed. ko1 12:55 Lactate w/ 2H reflex if indic. Sent. ko1 12:55 Blood Culture Adult (2) Sent. ko1 13:51 IV discontinued, intact, bleeding controlled, No redness/swelling at site. Pressure ko1 dressing applied. Administered Medications: 13:11 Drug: Rocephin (cefTRIAXone) 1 grams Route: IV; Rate: calculated rate; Site: right ko1 forearm; 13:35 Follow up: Response: No adverse reaction ko1 13:38 Drug: LevaQUIN (levofloxacin) 750 mg Route: PO; ko1 Medication: 10:36 VIS not applicable for this client. vg1 Outcome: 13:37 Discharge ordered by . hemant 13:51 Discharged to home ambulatory, with family. ko1 13:51 Condition: improved 13:51 Discharge instructions given to patient, family, Instructed on discharge instructions, follow up and referral plans. medication usage, Demonstrated understanding of instructions, follow-up care, medications, Prescriptions given X 1. 13:52 Patient left the ED. ko1 Signatures: Dispatcher [employer] EDMS Arian Ramos PA PA jmm Smirch, Shelby, Susan Garcia RN, Victoria, RN RN vg1 Uzma Tidwell, RN RN ko1
[2022-10-20] MEDS ORDERED: levoFLOXacin 750 MG TAB ONE (13:41)
[2022-10-20 14:54] VITALS: TEMP 98.4
[2022-10-20 15:04] VITALS: O2SAT 95
[2022-10-20 15:09] VITALS: BP 120/77
--- NOTE | 2022-10-21 11:17 | EKG ---
Test Date: 2022-10-20 Test Time: 11:55:41 Fixed Route Bus Operator: CASEY Rich MEASUREMENT RESULTS: Intervals: Rate: 73 PA: 166 QRSD: 94 QT: 384 QTc: 423 [place]: P: 35 PA: 166 QRS: 45 T: 64 INTERPRETIVE STATEMENTS: Normal sinus rhythm Normal ECG Compared to ECG 09/16/2022 00:54:32 No significant changes Electronically Signed On 10-21-22 11:15:28 EPITAXIAL REACTOR OPERATOR by Curtis Sotelo
== END 2022-10-20 13:52 | disposition home or self-care (01) ==
LOC: ER 10:14
DX: J18.9 Pneumonia, unspecified organism (principal); R60.9 Edema, unspecified; I10 Essential (primary) hypertension; J44.9 Chronic obstructive pulmonary disease, unspecified; F17.210 Nicotine dependence, cigarettes, uncomplicated
CPT/HCPCS: 36415; 71045; 80048; 83605; 83880; 84484; 85025; 87040; 93005; 93970

== ENCOUNTER 2022-10-27 09:11 | Inpatient (IN) | payer OTHER, BC ==
[2022-10-27 10:05] LABS: Hematocrit 40.7 % (39.6-49.0); Lymphocytes % 6.6 % (15.3-44.8); MCV 91.6 fL (80-100); MPV 7.5 fL (7.6-11.3); RBC Red Blood Cell Count 4.44 M/uL (4.33-5.43)
[2022-10-27 10:10] LABS: Protime INR 1.07
[2022-10-27] MEDS ORDERED: IPRATROPIUM BROM 0.5MG/2.5ML ONE (10:15)
[2022-10-27] MEDS ORDERED: NA CHLORIDE 0.9% 1,000 ML ONE (10:15)
[2022-10-27] MEDS ORDERED: LEVALBUTEROL 1.25 MG/3 ML NEB ONE (10:15)
[2022-10-27] MEDS ORDERED: METHYLPREDNISOLONE 125 MG INJ ONE (10:15)
[2022-10-27] MEDS ORDERED: FAMOTIDINE 20 MG/2 ML VIAL IV ONE (10:16)
[2022-10-27 10:42] LABS: SARS-COV-2 RT PCR NEGATIVE (NEGATIVE)
[2022-10-27 10:47] LABS: Albumin 3.6 g/dL (3.4-5.0); Bilirubin Direct 0.2 mg/dL (0-0.2); Bilirubin Total 0.6 mg/dL (0.2-1.0); Magnesium 2.2 mg/dL (1.6-2.4); Potassium 4.2 mmol/L (3.5-5.1); Protein, Total 7.2 g/dL (6.4-8.2); Troponin High Sensitivity 5.5 pg/mL (<58.9)
[2022-10-27] MEDS ORDERED: Levofloxacin500mg IV 500 MG/100 ML BAG IV ONE (10:58)
[2022-10-27] MEDS ORDERED: ENOXAPARIN 40 MG/0.4 ML SQ ONE (10:58)
--- NOTE | 2022-10-27 11:11 | RAD REPORT ---
EXAM DESCRIPTION: Kira Single View10/27/2022 10:30 am CLINICAL HISTORY: Chest pain COMPARISON: October 12, 2022 FINDINGS: Mild bibasilar lung opacities Upper lobes appear clear. Heart is mildly enlarged IMPRESSION: Mild bibasilar lung opacities may represent atelectasis or pneumonia
[2022-10-27 12:11] LABS: Blood Gas Oxyhemoglobin 89.6 % (94-97); Blood O2 Saturation 93.4 % (92-98.5)
[2022-10-27] MEDS ORDERED: ACETAMINOPHEN 325 MG TABLET PO PRN (13:52)
[2022-10-27] MEDS ORDERED: ONDANSETRON 4 MG/2 ML VIAL IV PRN (13:55)
[2022-10-27] MEDS: IPRATROPIUM BROM 0.5MG/2.5ML NEB SCH ×2 (14:00→19:50)
[2022-10-27] MEDS: ALBUTEROL 2.5 MG/3 ML NEB SOL NEB SCH ×2 (14:00→19:50)
--- NOTE | 2022-10-27 14:22 | P.HP ---
Certification for Inpatient Patient admitted to: Inpatient With expected LOS: >2 Midnights Patient will require the following post-hospital care: None Practitioner: I am a practitioner with admitting privileges, knowledge of patient current condition, hospital course, and medical plan of care. Services: Services provided to patient in accordance with Admission requirements found in Title 42 Section 412.3 of the Code of Federal Regulations Patient History Date of Service: 10/27/22 Reason for admission: Shortness of breath History of Present Illness: Patient is a 67-year-old male with a past medical history significant for COPD, hypertension, BPH, nicotine dependence, alcohol abuse who presents with complaint of shortness of breath that has been ongoing for the past 5 days. Patient reported that he was discharged from the hospital last week with antibiotics after being treated for pneumonia. Patient reports compliance with discharge medication. Patient reported that he is on home O2 therapy at 2 L/min as needed. Patient reported that he has been having shortness of breath since when he was discharged from the hospital and shortness of breath became worse yesterday. Patient reported associated signs and symptoms of lightheadedness, chest tightness, bilateral lower extremity edema and cough. Patient denies any other signs or symptoms. Symptoms are aggravated or relieved by nothing. Patient decided to present to the hospital due to worsening symptoms. Allergies No Known Allergies Allergy (Verified 09/28/22 15:22) Home Medications: Fluticasone/Umeclidin/Vilanter [Trelegy Ellipta 100-62.5-25] 1 each IH DAILY 10/28/20 Propranolol [Inderal*] 10 mg PO BID tab 11/04/20 Tamsulosin [Flomax*] 0.4 mg PO DAILY cap 11/04/20 Albuterol Sulfate [Albuterol Sulfate Hfa] 2 inhaler IH Q4H PRN 08/10/22 Lidocaine 4% Patch [Lidoderm 5% Patch*] 1 patch TOP DAILY patch 09/30/22 Thiamine HCl [Vitamin B-1*] 200 mg PO BID #60 09/30/22 Trelegy Ellipta 100-62.5-25 1 inh IH DAILY 09/30/22 predniSONE [Deltasone*] 10 mg PO DAILY #30 tab 09/30/22 - Past Medical/Surgical History Diabetic: No -: COPD -: Hypertension -: Alcohol abuse -: Hyponatremia -: Hernia repair Psychosocial/ Personal History: Patient is . He lives at [facility]. - Family History Father -: Heart disease Brother -: Lung disease - Social History Smoking Status: Current every day smoker Counseled patient to stop smoking for: less than 10 minutes Smoking therapy provided: Yes Patient receptive to therapy: Yes Alcohol use: Yes CD- Drugs: No Caffeine use: Yes Place of Residence: Home Review of Systems General: Unremarkable Eyes: Unremarkable ENT: Unremarkable Respiratory: Cough, Shortness of Breath, Other (Chest tightness) Cardiovascular: Light Headedness Gastrointestinal: Unremarkable Genitourinary: Unremarkable Musculoskeletal: Pedal edema Integumentary: Unremarkable Neurological: Unremarkable Lymphatics: Unremarkable Physical Examination - Physical Exam General: Alert, In no apparent distress, Oriented x3 HEENT: Atraumatic, Normocephalic, PERRLA, Mucous membr. moist/pink, EOMI, Sclerae nonicteric Neck: Supple, 2+ carotid pulse no bruit, No LAD, Without JVD or thyroid abnormality Respiratory: Diminished Cardiovascular: Normal pulses, Normal S1 S2, Edema Capillary refill: <2 Seconds Gastrointestinal: Normal bowel sounds, Soft and benign, No tenderness Musculoskeletal: No clubbing, No contractures, No erythema, No tenderness Integumentary: No rashes, No significant lesion, No warmth Neurological: Normal speech, Normal tone, Normal affect Lymphatics: No axilla or inguinal lymphadenopathy - Studies Laboratory Data (last 24 hrs) 10/27/22 09:50: PT 11.8, INR 1.07 10/27/22 09:50: WBC 14.60 H, Hgb 13.3 L, Hct 40.7, Plt Count 302 10/27/22 09:50: Sodium 135 L, Potassium 4.2, BUN 11, Creatinine 0.93, Glucose 118 H, Magnesium 2.2, Total Bilirubin 0.6, AST 6 L, ALT 16, Alkaline Phosphatase 80 Assessment and Plan - Plan .--Acute on chronic COPD exacerbation. Patient started on nebulizer treatment with albuterol and Atrovent. Continue O2 therapy. --Pneumonia. Noted on imaging. Continue antibiotics and current treatment regimen. Pulmonology consulted. Will await further recommendations. --Acute on chronic respiratory failure with hypoxia. Continue current treatment regimen. Further management per production superintendent. --Alcohol abuse. Patient placed on thiamine\multivitamin\folic acid and Ativan as needed. CIWA protocol. --- Leukocytosis. Likely secondary to pneumonia. Blood cultures pending. Continue antibiotics. --BPH. Continue home medication. --Nicotine dependence. Patient placed on tobacco cessation and counseled on tobacco cessation --Class I obesity. Likely secondary to excess calories intake. Patient be counseled on diet and exercise therapy when appropriate. --DVT prophylaxis with Lovenox subQ. Discharge Plan: Home Plan to discharge in: Greater than 2 days - Advance Directives Does patient have a Living Will: No Does patient have a Durable POA for Healthcare: No - Code Status/Comfort Care Code Status Assessed: Yes Physician Review: Patient Assessed, Agree with Above Assessment and Plan Critical Care: No
[2022-10-27] MEDS: ENOXAPARIN 40 MG/0.4 ML SQ SCH (15:00)
[2022-10-27 16:18] LABS: Magnesium 1.9 mg/dL (1.6-2.4); Phosphorus 2.3 mg/dL (2.5-4.9); Thyroid Stimulating Hormone 0.42 uIU/mL (0.358-3.740)
--- NOTE | 2022-10-27 17:31 | EKG ---
Test Date: 2022-10-27 Test Time: 09:41:33 Apple Peeler Operator: SHERI MEASUREMENT RESULTS: Intervals: Rate: 68 MS: 170 QRSD: 92 QT: 388 QTc: 412 [place]: P: 31 MS: 170 QRS: 32 T: 53 INTERPRETIVE STATEMENTS: Normal sinus rhythm Normal ECG Compared to ECG 10/20/2022 11:55:41 No significant changes Electronically Signed On 10-27-22 17:30:41 FRONT END LOADER OPERATOR by Curtis Sotelo
[2022-10-27] MEDS: NICOTINE 21 MG/PAT TD SCH (18:57)
[2022-10-27] MEDS ORDERED: LORazepam 2 MG/ML VIAL IV PRN (19:31)
[2022-10-27 19:57] LABS: Specific Gravity 1.017 (1.005-1.030); Urine Bacteria None Seen /HPF (<20); Urine Bilirubin NEGATIVE (Negative); Urine Blood Negative (Negative); Urine Clarity Clear (Clear); Urine Color Light-Yellow (Yellow); Urine Glucose NEGATIVE (Negative); Urine Mucus Slight /HPF (None Seen); Urine Protein TRACE (Negative); Urine RBC <5 /HPF (None Seen); Urine Urobilinogen Normal (Normal); Urine pH 5.5 (5.0-7.0)
[2022-10-27 22:40] VITALS: BMI 31.3
[2022-10-27] MEDS: HYDROCODONE/APAP 5/325 MG TAB PO PRN (22:43)
[2022-10-28] MEDS: IPRATROPIUM BROM 0.5MG/2.5ML NEB SCH ×4 (01:35→21:03)
[2022-10-28] MEDS: ALBUTEROL 2.5 MG/3 ML NEB SOL NEB SCH ×4 (01:35→21:03)
[2022-10-28 06:14] LABS: Absolute Lymphocytes (CBC) 0.9 K/uL (0.7-4.9); Lymphocytes % 5.7 % (15.3-44.8); MCV 90.9 fL (80-100); MPV 7.2 fL (7.6-11.3); RBC Red Blood Cell Count 3.96 M/uL (4.33-5.43)
[2022-10-28 06:33] LABS: Potassium 3.9 mmol/L (3.5-5.1)
[2022-10-28] MEDS: NICOTINE 21 MG/PAT TD SCH (08:20)
[2022-10-28] MEDS: MULTIVITAMIN TAB PO SCH (08:21)
[2022-10-28] MEDS: FOLIC ACID 1 MG TABLET PO SCH (08:21)
[2022-10-28] MEDS: THIAMINE HCL 100 MG TABLET PO SCH (08:21)
[2022-10-28] MEDS: ENOXAPARIN 40 MG/0.4 ML SQ SCH (08:21)
[2022-10-28] MEDS: ASPIRIN 81 MG CHEWABLE TABLET PO SCH (08:21)
[2022-10-28] MEDS ORDERED: LORAZEPAM 1 MG TABLET PO PRN (08:31)
[2022-10-28] MEDS ORDERED: POTASSIUM CL SA 10 MEQ TAB PO ONE (09:00)
[2022-10-28] MEDS: predniSONE 20 MG TAB PO SCH ×2 (09:08→20:21)
--- NOTE | 2022-10-28 12:08 | P.CNS ---
Date of Consult: 10/28/22 Reason for Consult: COPD exacerbation Chief Complaint: Shortness of breath History of Present Illness: Patient is 67 years of age recurrent hospital admissions active smoker alcoholic admitted with worsening dyspnea hypoxic hypercapnic denies any fever chills compliant with his inhalers Allergies No Known Allergies Allergy (Verified 09/28/22 15:22) Home Medications: Fluticasone/Umeclidin/Vilanter [Trelegy Ellipta 100-62.5-25] 1 each IH DAILY 10/28/20 Propranolol [Inderal*] 10 mg PO BID tab 11/04/20 Tamsulosin [Flomax*] 0.4 mg PO DAILY cap 11/04/20 Albuterol Sulfate [Albuterol Sulfate Hfa] 2 inhaler IH Q4H PRN 08/10/22 Lidocaine 4% Patch [Lidoderm 5% Patch*] 1 patch TOP DAILY patch 09/30/22 Thiamine HCl [Vitamin B-1*] 200 mg PO BID #60 09/30/22 Trelegy Ellipta 100-62.5-25 1 inh IH DAILY 09/30/22 predniSONE [Deltasone*] 10 mg PO DAILY #30 tab 09/30/22 - Past Medical/Surgical History Diabetic: No -: COPD -: Hypertension -: Alcohol abuse -: Hyponatremia -: Hernia repair Psychosocial/ Personal History: Patient is . He lives at [facility]. - Family History Father Medical History: Heart disease Brother Medical History: Lung disease - Social History Smoking Status: Current every day smoker Alcohol use: Yes CD- Drugs: No Caffeine use: Yes Place of Residence: Home Review of Systems 10-point ROS is otherwise unremarkable General: Weakness Respiratory: Cough, Shortness of Breath Physical Examination Temp Pulse Resp BP Pulse Ox 97.7 F 89 16 123/69 95 10/28/22 08:00 10/28/22 08:00 10/28/22 08:00 10/28/22 08:00 10/28/22 08:00 General: Alert, In no apparent distress, Oriented x3 Respiratory: Clear to auscultation bilaterally, Diminished, Friction rub Cardiovascular: Regular rate/rhythm, Normal S1 S2 - Problems (1) Chronic respiratory failure with hypoxia and hypercapnia Current Visit: Yes Status: Acute Plan: Patient has chronic respiratory failure secondary to COPD continues to smoke hypoxic hypercarbic and will benefit from a noninvasive ventilator to prevent hospital admissions White count is mildly elevated chest x-ray shows some i nterstitial changes COPD currently his vital signs are stable have started him on steroids plan to discharge tomorrow on prednisone 10 mg twice a day for a week then 10 mg once a day levofloxacin continue with Trelegy counseled again to stop drinking stable for discharge
--- NOTE | 2022-10-28 12:15 | RAD REPORT ---
EXAM DESCRIPTION: RAD - Chest Single View - 10/28/2022 11:05 am CLINICAL HISTORY: pneumonia Chest pain. COMPARISON: Chest Single View dated 10/27/2022; Chest Single View dated 10/20/2022; Chest Single View d ated 09/19/2022; Chest Single View dated 09/16/2022 FINDINGS: Portable technique limits examination quality. Bibasilar lung opacities are again seen, which have progressed somewhat in the right base. The heart is normal in size. No displaced fractures. IMPRESSION: Mild worsening has occurred of bibasilar lung opacities, particularly on the right.
[2022-10-28] MEDS: levoFLOXacin 750 MG TAB PO SCH (13:21)
[2022-10-29] MEDS: IPRATROPIUM BROM 0.5MG/2.5ML NEB SCH ×4 (02:18→19:40)
[2022-10-29] MEDS: ALBUTEROL 2.5 MG/3 ML NEB SOL NEB SCH ×4 (02:18→19:40)
[2022-10-29 06:45] LABS: Absolute Lymphocytes (CBC) 0.9 K/uL (0.7-4.9); Hematocrit 38.6 % (39.6-49.0); Lymphocytes % 6.6 % (15.3-44.8); MCV 92.5 fL (80-100); MPV 7.7 fL (7.6-11.3); RBC Red Blood Cell Count 4.17 M/uL (4.33-5.43)
--- NOTE | 2022-10-29 08:00 | RAD REPORT ---
EXAM DESCRIPTION: RADChest Single View10/29/2022 5:37 am CLINICAL HISTORY: pneumonia COMPARISON: Chest Single View dated 10/28/2022; Chest Single View dated 10/27/2022; Chest Single View da lata 10/20/2022; Chest Single View dated 09/19/2022 TECHNIQUE: Portable AP view of the chest. FINDINGS: The lungs are clear.Stable mild left more than right basilar atelectasis. No pneumothorax or effusion. The cardiomediastinal contours are unremarkable. IMPRESSION: No acute cardiopulmonary process.
[2022-10-29 08:43] LABS: Albumin 3.3 g/dL (3.4-5.0); Bilirubin Total 0.2 mg/dL (0.2-1.0); Magnesium 2.4 mg/dL (1.6-2.4); Potassium 4.5 mmol/L (3.5-5.1); Protein, Total 6.4 g/dL (6.4-8.2)
[2022-10-29] MEDS: NICOTINE 21 MG/PAT TD SCH (09:00)
[2022-10-29] MEDS: MULTIVITAMIN TAB PO SCH (09:00)
[2022-10-29] MEDS: predniSONE 20 MG TAB PO SCH ×2 (09:00→21:10)
[2022-10-29] MEDS: ENOXAPARIN 40 MG/0.4 ML SQ SCH (09:00)
[2022-10-29] MEDS: ASPIRIN 81 MG CHEWABLE TABLET PO SCH (09:00)
[2022-10-29] MEDS: FOLIC ACID 1 MG TABLET PO SCH (09:00)
[2022-10-29] MEDS: THIAMINE HCL 100 MG TABLET PO SCH (09:00)
[2022-10-29] MEDS: levoFLOXacin 750 MG TAB PO SCH (09:00)
[2022-10-29] MEDS ORDERED: BUPIVACAINE 0.25% PF 10 ML VIAL ONE (14:17)
[2022-10-29] MEDS ORDERED: LIDOCAINE 1% W/EPI 1:100,000 10 ML VIAL ONE (14:17)
[2022-10-29] MEDS ORDERED: Ringers Lactate 1,000 ML IV ONE (14:58)
[2022-10-29] MEDS ORDERED: CEFAZOLIN SODIUM 2 GM/VIAL ONE (15:06)
[2022-10-29] MEDS ORDERED: LIDOCAINE 2% MPF 5 ML VIAL ONE (16:07)
[2022-10-29] MEDS ORDERED: propofoL 200 MG/20 ML VIAL IV ONE (16:07)
[2022-10-29] MEDS ORDERED: MIDAZOLAM HCL 2 MG/2 ML INJ ONE (16:08)
[2022-10-29] MEDS ORDERED: LIDOCAINE 1.5% W/EPI AMP 5 ML ONE (16:12)
--- NOTE | 2022-10-29 16:47 | CON ---
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 He was discharged from the hospital last week with antibiotics being prescribed for pneumonia. He was taki ng medications and presented back to the hospital with similar symptoms of lightheadedness, chest tig htness, bilateral lower extremity edema, cough, and as such he was admitted with the above-stated com plaints. During his admission and treatment at the hospital, he was found to have a significant larg e left lower extremity lesion and concerning for skin cancer. As such, I was consulted to see the axel nunn for this issue. Past Medical History: Significant for COPD, hypertension, BPH, nicotine dependence, alcohol abuse, h yponatremia. Past Surgical History: Includes hernia repair. Social History: He lives at [facility]. He is . He smokes cigarettes actively still. He drinks alcohol recreationally. Review of Systems: Ten-point review of systems other than HPI, denies. Physical Examination: General: At the time of my examination; he is awake, alert, oriented. Psychiatric: Appropriate, conversive. HEENT: He is normocephalic. Sclerae anicteric. Mucous membranes moist. Oropharynx clear. Neck: Supple without JVD. Chest: Expansion and excursion. Cardiovascular: Regular rate and rhythm. Pulmonary: Clear to auscultation bilaterally. Abdomen: Soft. Extremities: Focused examination of left lower extremity shows that he has a left lower extremity sk in lesion approximately 0.5 cm in size. It is exophytic, concerning for a malignancy, possibly basal cell cancer. There are no other skin changes associated. Laboratory Data: He had a laboratory exam, which revealed a white blood cell count of 14.1, hemoglob in 12.4, hematocrit 38.6, platelet count was 186. His coags showed a PT 11.8, INR 1.07. His chemistry technical officer ry was 137 sodium, potassium 4.5, chloride 97, carbon dioxide 39, BUN was 14, creatinine 0.8, glucose is 122, AST 5, ALT 14, alkaline phosphatase is 66. His troponin high sensitivity was 5.5. He had s erology, which showed negative influenza and COVID negative. Assessment And Plan: This is a 67-year-old male, who presents with a skin lesion of the lower extrem ity concerning for skin cancer. I have explained the risks, benefits, and alternatives of wide local excision of the skin lesion including, but not limited to bleeding, infection, damage to surrounding tissues, injury to nerves, need for ongoing wound care, possible need for additional surgery to get additional margins. The patient agrees to proceed as indicated. Thank you for this interesting consult. KATHERIN/NORA Voice ID: [id number] Report ID: [id number]
--- NOTE | 2022-10-29 16:54 | P.OP ---
Preoperative diagnosis: LEFT Lower Extremity Skin Cancer Postoperative diagnosis: LEFT Lower Extremity Skin Cancer Primary procedure: Wide local excision of LEFT Lower Extremity Skin Cancer Anesthesia: MAC + Local Estimated blood loss: <2cc Specimen: skin lesion - Findings: 3cm x 2 cm skin cancer Complications: None Transferred to: Recovery Room Condition: Good
--- NOTE | 2022-10-29 17:11 | OP ---
Date of Procedure: 10/29/2022 Surgeon: Maciej Wright MD, Preoperative Diagnosis: LEFT lower extremity skin cancer. Postoperative Diagnosis: LEFT lower extremity skin cancer. Procedure Performed: Wide local excision of left lower extremity skin cancer. Anesthesia: MAC plus local with 1% lidocaine with epinephrine and 1.5% lidocaine with epinephrine. Specimen: Skin lesion of left lower extremity consistent with skin cancer. Short stitch, superior, long lateral. Findings: A 3 cm x 2 cm skin cancer of the left lower extremity. Complications: None. Disposition: The patient was transferred to the recovery room in good condition. Procedure In Detail: After informed consent was obtained, the patient was brought to the operating r oom, prepped and draped in the usual sterile fashion after adequate anesthesia was achieved. I kris cated an area with a 1 cm margin circumferentially around 3 cm x 2 cm lesion of the left lower extrem ity. I elongated an elliptical type fashion the superior and inferior ends of this to allow for more of elliptical appearance. I then anesthetized the area with lidocaine with epinephrine as described above circumferentially around. I then used a 15 blade down to dissect down through subcutaneous ti ssues into the adipose plane. I then dissected circumferentially and removed this in its entirety af ter placing a marking stitch short superior, long lateral. It was sent off for pathologic examinatio n. At this point, the area was copiously irrigated. Hemostasis was achieved with electrocautery. I then reapproximated loosely the superior and inferior ends using 2-0 nylon suture, but the middle po rtion of the incision was left partially open and packed with Vashe-soaked Kerlix and a sterile dress ing placed over top. The patient tolerated the procedure well without evidence of complication and t ransferred to PACU in good condition. All counts were correct at the end of the case. TK/MODL Voice ID: [id number] Report ID: [id number]
[2022-10-30] MEDS: IPRATROPIUM BROM 0.5MG/2.5ML NEB SCH ×2 (01:55→08:00)
[2022-10-30] MEDS: ALBUTEROL 2.5 MG/3 ML NEB SOL NEB SCH ×2 (01:55→08:00)
[2022-10-30] MEDS: HYDROCODONE/APAP 5/325 MG TAB PO PRN (08:24)
[2022-10-30] MEDS: NICOTINE 21 MG/PAT TD SCH (08:25)
[2022-10-30] MEDS: THIAMINE HCL 100 MG TABLET PO SCH (08:25)
[2022-10-30] MEDS: ASPIRIN 81 MG CHEWABLE TABLET PO SCH (08:25)
[2022-10-30] MEDS: ENOXAPARIN 40 MG/0.4 ML SQ SCH (08:25)
[2022-10-30] MEDS: levoFLOXacin 750 MG TAB PO SCH (08:25)
[2022-10-30] MEDS: MULTIVITAMIN TAB PO SCH (08:25)
[2022-10-30] MEDS: FOLIC ACID 1 MG TABLET PO SCH (08:25)
[2022-10-30] MEDS: predniSONE 20 MG TAB PO SCH (08:26)
[2022-10-30 08:44] VITALS: BP 112/73; TEMP 96.9
[2022-10-30 09:26] VITALS: O2SAT 97
--- NOTE | 2022-10-30 10:43 | P.PN ---
Subjective Date of Service: 10/28/22 Subjective: No new changes, No C/O voiced, Improving Review of Systems 10-point ROS is otherwise unremarkable Physical Examination - Vital Signs Temperature: 96.9 F Blood Pressure: 112/73 Pulse: 89 Respirations: 18 Pulse Ox (%): 97 - Physical Exam General: Alert, In no apparent distress, Oriented x3 Respiratory: Diminished Cardiovascular: Regular rate/rhythm, Normal S1 S2, No murmurs Gastrointestinal: Normal bowel sounds, Soft and benign, Non-distended, No tenderness Musculoskeletal: No clubbing, No swelling, No tenderness Neurological: Sensation intact, Cranial nerves 3-12 intact - Studies Medications List Reviewed: Yes Assessment & Plan - Problems (Diagnosis) (1) Acute respiratory failure with hypoxia and hypercapnia Current Visit: No Status: Acute (2) BPH (benign prostatic hyperplasia) Current Visit: No Status: Acute (3) COPD with exacerbation Current Visit: No Status: Acute (4) Chronic respiratory failure Current Visit: No Status: Acute (5) Alcohol abuse Current Visit: No Status: Chronic (6) Chronic diastolic heart failure Current Visit: No Status: Chronic (7) Hypertension Current Visit: No Status: Chronic Qualifiers: Hypertension type: primary hypertension Qualified Code(s): I10 - Essential (primary) hypertension - Advance Directives Does patient have a Living Will: No Does patient have a Durable POA for Healthcare: No Physician Review: Patient Assessed, Agree with Above Assessment and Plan
== END 2022-10-30 12:15 | disposition home health service (06) | DRG 193 ==
LOC: ER 09:11 → ERHOLD 13:51 → 4TH 18:07
PROVIDERS: ADMIT Hospitalist; ATTEND Hospitalist
PROC: 0HBLXZZ Excision of Left Lower Leg Skin, External Approach (ICD-10-PCS; principal; 2022-10-29 15:00)
DX: J18.9 Pneumonia, unspecified organism (principal); J96.21 Acute and chronic respiratory failure with hypoxia; J96.22 Acute and chronic respiratory failure with hypercapnia; J44.1 Chronic obstructive pulmonary disease with (acute) exacerbation; J44.0 Chronic obstructive pulmonary disease with (acute) lower respiratory infection; I50.32 Chronic diastolic (congestive) heart failure; I11.0 Hypertensive heart disease with heart failure; F10.10 Alcohol abuse, uncomplicated; N40.0 Benign prostatic hyperplasia without lower urinary tract symptoms; C44.92 Squamous cell carcinoma of skin, unspecified; E66.9 Obesity, unspecified; F17.200 Nicotine dependence, unspecified, uncomplicated; Z63.5 Disruption of family by separation and divorce; Z99.81 Dependence on supplemental oxygen; Z79.52 Long term (current) use of systemic steroids; Z68.31 Body mass index [BMI] 31.0-31.9, adult; Z79.899 Other long term (current) drug therapy; Z20.822 Contact with and (suspected) exposure to COVID-19
CPT/HCPCS: 0240U; 36415; 71045; 80048; 80053; 80076; 81001; 82805; 83605; 83735; 83880; 84100; 84439; 84443; 84484; 85025; 85610; 87040; 88305; 93005; 96361; 96365; 96366; 96372; 96375; 99285; J1650; J2001; J2250; J2704; J2930; J7030; J7120; J7512; J7613; J7614; J7644

== ENCOUNTER 2022-11-10 13:13 | Observation (INO) | payer OTHER, BC ==
[2022-11-10] MEDS ORDERED: IPRATROPIUM BROM 0.5MG/2.5ML ONE ×2 (13:43→20:19)
[2022-11-10] MEDS ORDERED: METHYLPREDNISOLONE 125 MG INJ ONE (13:43)
[2022-11-10] MEDS ORDERED: LEVALBUTEROL 1.25 MG/3 ML NEB ONE ×2 (13:43→16:46)
[2022-11-10] MEDS ORDERED: NA CHLORIDE 0.9% 1,000 ML ONE (13:44)
[2022-11-10] MEDS ORDERED: Levofloxacin500mg IV 500 MG/100 ML BAG IV ONE (13:44)
[2022-11-10 14:19] LABS: Absolute Lymphocytes (CBC) 1.6 K/uL (0.7-4.9); Hematocrit 40.4 % (39.6-49.0); Lymphocytes % 8.6 % (15.3-44.8); MCV 92.9 fL (80-100); MPV 7.4 fL (7.6-11.3); Protime INR 1.06; RBC Red Blood Cell Count 4.35 M/uL (4.33-5.43)
[2022-11-10 14:21] LABS: Specific Gravity 1.008 (1.005-1.030); Urine Bilirubin NEGATIVE (Negative); Urine Blood Negative (Negative); Urine Clarity Clear (Clear); Urine Color Colorless (Yellow); Urine Glucose NEGATIVE (Negative); Urine Protein NEGATIVE (Negative); Urine Urobilinogen Normal (Normal); Urine pH 7.5 (5.0-7.0)
[2022-11-10 14:45] LABS: Potassium 4.1 mEq/L (3.5-5.1)
[2022-11-10 14:46] LABS: Albumin 3.4 g/dL (3.4-5.0); Bilirubin Direct 0.2 mg/dL (0-0.2); Magnesium 2.1; Protein, Total 6.8 g/dL (6.4-8.2); Troponin High Sensitivity 6.1 (<58.9)
--- NOTE | 2022-11-10 15:30 | RAD REPORT ---
EXAM DESCRIPTION: US - Extrem Venous W Compress Mitchel - 11/10/2022 3:23 pm CLINICAL HISTORY: Pain;Swelling Bilateral leg edema and swelling. COMPARISON: <Comparisons> TECHNIQUE: Real-time sonographic interrogation of the left and right lower extremity deep venous sys tems was performed. FINDINGS: Normal compressibility, flow augmentation, phasic flow and spontaneous flow is identified in both the left and right lower extremity deep venous systems. IMPRESSION: No sonographic evidence of left or right lower extremity deep venous thrombosis.
--- NOTE | 2022-11-10 15:58 | ER ---
Nurse's Notes [facility] Name: Randolph Mckeon Age: 67 yrs Sex: Male : 1955 Arrival Date: 11/10/2022 Time: 13:16 Bed 14 Private MD: Diagnosis: COPD/ Chronic obstructive pulmonary disease with (acute) exacerbation;Dyspnea;Hypoxemia Presentation: 11/10 13:24 Chief complaint: EMS states: picked patient up from home for difficulty breathing that kr3 is worse than normal, home health also wanted someone to check the wound on the left lower limb as he had a cyst removed last week. Coronavirus screen: Vaccine status: Patient reports being unvaccinated. Ebola Screen: Patient denies travel to an Ebola-affected area in the 21 days before illness onset. Initial Sepsis Screen: Does the patient meet any 2 criteria? No. Patient's initial sepsis screen is negative. Does the patient have a suspected source of infection? No. Patient's initial sepsis screen is negative. Risk Assessment: Do you want to hurt yourself or someone else? Patient reports no desire to harm self or others. Onset of symptoms was November 10, 2022. 13:24 Method Of Arrival: EMS kr3 13:24 Acuity: YANNICK 3 kr3 Triage Assessment: 13:31 General: Appears in no apparent distress. comfortable, Behavior is calm, cooperative, kr3 appropriate for age. Pain:. Neuro: Level of Consciousness is awake, alert, obeys commands, Oriented to person, place, time, situation. Cardiovascular: Patient's skin is warm and dry. Respiratory: Airway is patent Respiratory effort is even, unlabored, Respiratory pattern is regular, symmetrical. GI: No signs and/or symptoms were reported involving the gastrointestinal system. : No signs and/or symptoms were reported regarding the genitourinary system. Derm: No signs and/or symptoms reported regarding the dermatologic system. Musculoskeletal: No signs and/or symptoms reported regarding the musculoskeletal system. Historical: - Allergies: 13:30 No Known Allergies; kr3 - Home Meds: 13:30 Amlodipine [Active]; Lasix Oral [Active]; Metoprolol Tartrate Oral [Active]; kr3 - PMHx: 13:30 COPD; Hypertension; Pneumonia; kr3 - PSHx: 13:30 cyst removal on lower left limb; kr3 - Immunization history:: Adult Immunizations up to date. - Social history:: Smoking status: Patient reports the use of cigarette tobacco products, smokes one pack cigarettes per day. - Family history:: not pertinent. Screenin:07 [facility] ED Fall Risk Assessment (Adult) History of falling in the last 3 months, kr3 including since admission No falls in past 3 months (0 pts) Confusion or Disorientation No (0 pts) Intoxicated or Sedated No (0 pts) Impaired Gait No (0 pts) Mobility Assist Device Used No (0 pt) Altered Elimination No (0 pt) Score/Fall Risk Level 0 - 2 = Low Risk Oriented to surroundings, Maintained a safe environment, Educated pt \T\ family on fall prevention, incl call for assistance when getting out of bed, Assessed \T\ reinforced patient's understanding of fall precautions, Hourly rounding (assess needs \T\ fall precautionary measures) done. Abuse screen: Denies threats or abuse. Nutritional screening: No deficits noted. Tuberculosis screening: No symptoms or risk factors identified. Assessment: 14:30 Reassessment: Patient appears in no apparent distress at this time. Patient and/or kr3 family updated on plan of care and expected duration. Pain level reassessed. 15:30 Reassessment: Patient appears in no apparent distress at this time. Patient and/or kr3 family updated on plan of care and expected duration. Pain level reassessed. 16:30 Reassessment: Patient appears in no apparent distress at this time. Patient and/or kr3 family updated on plan of care and expected duration. Pain level reassessed. 17:30 Reassessment: Patient appears in no apparent distress at this time. Patient and/or kr3 family updated on plan of care and expected duration. Pain level reassessed. 18:30 Reassessment: Patient appears in no apparent distress at this time. Patient and/or kr3 family updated on plan of care and expected duration. Pain level reassessed. Vital Signs: 13:24 BP 119 / 76; Pulse 82; Resp 24; Temp 98.9; Pulse Ox 98% on 1.5 lpm NC; Weight 99.79 kg; kr3 Height 5 ft. 11 in. ; 16:30 BP 98 / 68; Pulse 86; Resp 20; Pulse Ox 99% on 2 lpm NC; kr3 17:30 BP 126 / 81; Pulse 89; Resp 20; Pulse Ox 97% 2 lpm ; kr3 18:30 BP 123 / 77; Pulse 86; Resp 20; Pulse Ox 95% on 2 lpm NC; kr3 21:30 BP 138 / 74; Pulse 83; Resp 18; Pulse Ox 97% on 2 lpm NC; ll3 13:24 Body Mass Index 30.68 (99.79 kg, 180.34 cm) kr3 ED Course: 13:16 Patient arrived in ED. kamar 13:17 Eligio Amador MD is Attending Physician. kamar 13:23 Dyana Gonzalez, SAMEER is Primary Nurse. kr3 13:30 Triage completed. kr3 13:30 Placed in gown. Bed in low position. Call light in reach. kr3 13:32 Arm band placed on right wrist. Patient placed in an exam room, on a stretcher. kr3 14:17 Inserted saline lock: 20 gauge in right forearm, using aseptic technique. ,using kr3 aseptic technique. completed by RN student from Blood collected. 15:25 US Extremity Venous W Compression Mitchel In Process Unspecified. EDMS 15:47 XRAY Chest (1 view) In Process Unspecified. EDMS 15:56 Juanita Giron MD is Hospitalizing Provider. kamar 16:09 Hospitalizing Provider role handed off by Juanita Giron MD kamar 16:09 Timoteo Fischer is Hospitalizing Provider. kamar 19:08 No provider procedures requiring assistance completed. kr3 22:08 Patient admitted, IV remains in place. ll3 Administered Medications: 15:10 Drug: Levalbuterol Inhalation 3.75 mg Route: Inhalation; kr3 19:36 Follow up: Response: No adverse reaction kr3 15:20 Drug: MethylPrednisoLONE IVP 125 mg Route: IVP; Site: right antecubital; kr3 19:36 Follow up: Response: No adverse reaction kr3 16:00 Drug: levofloxacin IVPB 500 mg Volume: 100 ml; Route: IVPB; Infused Over: 60 mins; kr3 Site: right antecubital; 19:36 Follow up: Response: No adverse reaction; IV Status: Completed infusion; IV Intake: kr3 100ml 16:35 Drug: Ipratropium Inhalation Aerosol 0.5 mg Route: Inhalation; kr3 19:36 Follow up: Response: No adverse reaction kr3 17:07 Drug: NS 0.9% IV 1000 ml Route: IV; Rate: 125 ml/hr; Site: right antecubital; kr3 19:35 Follow up: Response: No adverse reaction; IV Status: Completed infusion; IV Intake: kr3 100ml 17:07 Drug: Levalbuterol Inhalation 2.5 mg Route: Inhalation; kr3 19:37 Follow up: Response: No adverse reaction kr3 18:11 Drug: Cefepime IVPB 2 grams Route: IVPB; Rate: 200 ml/hr; Infused Over: 30 mins; Site: iw right forearm; Medication: 19:09 VIS not applicable for this client. kr3 Intake: 19:35 IV: 100ml; Total: 100ml. kr3 19:36 IV: 100ml; Total: 200ml. kr3 Outcome: 15:57 Decision to Hospitalize by Provider. [facility] 19:08 Admitted to kr3 19:08 Admitted to Med/surg 19:08 Condition: stable 19:08 Condition: stable 19:08 Instructed on the need for admit. 22:08 Admitted to Tele accompanied by tech, via wheelchair, room 406, with chart, Report ll3 called to SAMEER Suarez 22:08 Condition: stable 22:08 Instructed on the need for admit, Demonstrated understanding of instructions. 22:08 Patient left the ED. ll3 Signatures: Dispatcher [employer] EDEligio Angel MD MD cha Williams, Irene, RN Santy Small RN RN ll3 Dyana Gonzalez RN RN kr3 Corrections: (The following items were deleted from the chart) 14:18 14:17 Inserted saline lock: 20 gauge in right forearm, using aseptic technique. Blood kr3 collected. kr3
--- NOTE | 2022-11-10 15:58 | EDPHYS ---
Physician Documentation [facility] Name: Randolph Mckeon Age: 67 yrs Sex: Male : 1955 Arrival Date: 11/10/2022 Time: 13:16 Bed 14 Private MD: ED Physician Eligio Amador HPI: 11/10 15:38 This 67 yrs old Male presents to ER via EMS with complaints of copd kamar exacerbation, hypoxia, worsening. 15:38 The patient has shortness of breath at rest, with light activity. Onset: The kamar symptoms/episode began/occurred 2 day(s) ago. Duration: The symptoms are continuous, and are steadily getting worse. The patient's shortness of breath has no apparent modifying factors. The patient or guardian reports airway noise, cough, difficulty breathing, flu symptoms, arthralgias, low-grade fever, myalgias. Modifying factors: The symptoms are alleviated by nothing. the symptoms are aggravated by activity, lying flat, talking. Associated signs and symptoms: The patient has no apparent associated signs or symptoms. Associated signs and symptoms: Pertinent positives: non-productive cough, dizziness. Severity of symptoms: At their worst the symptoms were mild moderate in the emergency department the symptoms are unchanged. The patient or guardian reports hoarse voice. The patient or guardian reports. Historical: - Allergies: 13:30 No Known Allergies; kr3 - Home Meds: 13:30 Amlodipine [Active]; Lasix Oral [Active]; Metoprolol Tartrate Oral [Active]; kr3 - PMHx: 13:30 COPD; Hypertension; Pneumonia; kr3 - PSHx: 13:30 cyst removal on lower left limb; kr3 - Immunization history:: Adult Immunizations up to date. - Social history:: Smoking status: Patient reports the use of cigarette tobacco products, smokes one pack cigarettes per day. - Family history:: not pertinent. ROS: 15:38 Constitutional: Negative for fever, chills, and weight loss, Eyes: Negative for injury, kamar pain, redness, and discharge, ENT: Negative for injury, pain, and discharge, Neck: Negative for injury, pain, and swelling, Cardiovascular: Negative for chest pain, palpitations, and edema, Abdomen/GI: Negative for abdominal pain, nausea, vomiting, diarrhea, and constipation, Back: Negative for injury and pain, : Negative for injury, bleeding, discharge, and swelling, MS/Extremity: Negative for injury and deformity, Skin: Negative for injury, rash, and discoloration, Neuro: Negative for headache, weakness, numbness, tingling, and seizure, Psych: Negative for depression, anxiety, suicide ideation, homicidal ideation, and hallucinations, Allergy/Immunology: Negative for hives, rash, and allergies, Endocrine: Negative for neck swelling, polydipsia, polyuria, polyphagia, and marked weight changes, Hematologic/Lymphatic: Negative for swollen nodes, abnormal bleeding, and unusual bruising. 15:38 Cardiovascular: Positive for palpitations. 15:38 Respiratory: Positive for cough, "sounds productive", dyspnea on exertion, shortness of breath, at rest. wheezing, inspiratory, expiratory. 15:38 MS/extremity: Negative for swelling, tenderness. Exam: 15:38 Constitutional: This is a well developed, well nourished patient who is awake, alert, kamar and in no acute distress. Head/Face: Normocephalic, atraumatic. Eyes: Pupils equal round and reactive to light, extra-ocular motions intact. Lids and lashes normal. Conjunctiva and sclera are non-icteric and not injected. Cornea within normal limits. Periorbital areas with no swelling, redness, or edema. ENT: Nares patent. No nasal discharge, no septal abnormalities noted. Tympanic membranes are normal and external auditory canals are clear. Oropharynx with no redness, swelling, or masses, exudates, or evidence of obstruction, uvula midline. Mucous membranes moist. Neck: Trachea midline, no thyromegaly or masses palpated, and no cervical lymphadenopathy. Supple, full range of motion without nuchal rigidity, or vertebral point tenderness. No Meningismus. Chest/axilla: Normal chest wall appearance and motion. Nontender with no deformity. No lesions are appreciated. Cardiovascular: Regular rate and rhythm with a normal S1 and S2. No gallops, murmurs, or rubs. Normal PMI, no JVD. No pulse deficits. Abdomen/GI: Soft, non-tender, with normal bowel sounds. No distension or tympany. No guarding or rebound. No evidence of tenderness throughout. Back: No spinal tenderness. No costovertebral tenderness. Full range of motion. Male : Normal genitalia with no discharge or lesions. Skin: Warm, dry with normal turgor. Normal color with no rashes, no lesions, and no evidence of cellulitis. MS/ Extremity: Pulses equal, no cyanosis. Neurovascular intact. Full, normal range of motion. Neuro: Awake and alert, GCS 15, oriented to person, place, time, and situation. Cranial nerves II-XII grossly intact. Motor strength 5/5 in all extremities. Sensory grossly intact. Cerebellar exam normal. Normal gait. Psych: Awake, alert, with orientation to person, place and time. Behavior, mood, and affect are within normal limits. 15:38 Respiratory: mild respiratory distress is noted, moderate respiratory distress is noted, Respirations: labored breathing, that is mild, Breath sounds: bronchial sounds, that are mild, decreased breath sounds, that are moderate, rhonchi, that are mild, stridor, is not appreciated, wheezing: inspiratory expiratory is heard diffusely. 15:57 ECG was reviewed by the Attending Physician. [facility] Vital Signs: 13:24 BP 119 / 76; Pulse 82; Resp 24; Temp 98.9; Pulse Ox 98% on 1.5 lpm NC; Weight 99.79 kg; kr3 Height 5 ft. 11 in. ; 16:30 BP 98 / 68; Pulse 86; Resp 20; Pulse Ox 99% on 2 lpm NC; kr3 17:30 BP 126 / 81; Pulse 89; Resp 20; Pulse Ox 97% 2 lpm ; kr3 18:30 BP 123 / 77; Pulse 86; Resp 20; Pulse Ox 95% on 2 lpm NC; kr3 21:30 BP 138 / 74; Pulse 83; Resp 18; Pulse Ox 97% on 2 lpm NC; ll3 13:24 Body Mass Index 30.68 (99.79 kg, 180.34 cm) kr3 MDM: 13:16 Patient medically screened. kamar 13:17 Patient medically screened. [facility] 15:38 Differential diagnosis: Anemia asthma, Bronchitis CHF exacerbation, Chronic Obstructive kamar Pulmonary Disease bronchitis, flu, URI, pneumonia, pulmonary edema, Pulmonary Embolism reactive airway disease, Sepsis Unstable Angina. Antibiotic administration: Maxipime and Levaquin given. Differential Diagnosis: Obstructed Airway Bronchitis Influenza Upper Respiratory Infection Sinusitis Pharyngitis Asthma Exacerbation Viral Syndrome Pneumonia. Immunization status: Pneumococcal vaccine: within last 5 years. Influenza vaccine: within last 5 years. Data reviewed: vital signs, nurses notes, lab test result(s), EKG, radiologic studies, plain films. Consideration of Admission/Observation Patient was admitted/placed on observation. I considered the following discharge prescriptions or medication management in the emergency department Medications were administered in the Emergency Department. See MAR. Independent interpretation of the following test(s) in the Emergency Department EKG: See my EKG interpretation above. Test considered but Not performed: CT: ct chest ro pe. Care significantly affected by the following chronic conditions: Diabetes, Hypertension, Chronic Obstructive Pulmonary Disease. Counseling: I had a detailed discussion with the patient and/or guardian regarding: the historical points, exam findings, and any diagnostic results supporting the discharge/admit diagnosis, the presence of at least one elevated blood pressure reading (>120/80) during this emergency department visit, lab results, the need for further work-up and treatment in the hospital. 11/10 13:20 Order name: Basic Metabolic Panel; Complete Time: 19:34 kamar 11/10 13:20 Order name: CBC with Diff; Complete Time: 15:34 kamar 11/10 13:20 Order name: LFT's; Complete Time: 19:34 kamar 11/10 13:20 Order name: Magnesium; Complete Time: 19:34 kamar 11/10 13:20 Order name: NT PRO-BNP; Complete Time: 19:34 kamar 11/10 13:20 Order name: PT-INR; Complete Time: 15:34 kamar 11/10 13:20 Order name: Troponin HS; Complete Time: 19:34 kamar 11/10 13:20 Order name: Blood Culture Adult (2) [facility] 11/10 13:20 Order name: Lipase; Complete Time: 19:34 kamar 11/10 13:20 Order name: Lactate w/ 2H reflex if indic.; Complete Time: 19:34 kamar 11/10 13:20 Order name: Urinalysis (UA w/ reflexes); Complete Time: 15:34 kamar 11/10 15:35 Order name: ABG; Complete Time: 19:34 kamar 11/10 16:59 Order name: SARS RAPID; Complete Time: 19:34 kr3 11/10 18:20 Order name: Magnesium EDMS 11/10 18:20 Order name: Phosphorus EDMS 11/10 18:20 Order name: Urinalysis w/ reflexes EDMS 11/10 18:20 Order name: Basic Metabolic Panel EDNM 11/10 18:20 Order name: Basic Metabolic Panel EDNM 11/10 18:20 Order name: CBC with Automated Diff EDMS 11/10 18:20 Order name: CBC with Automated Diff EDMS 11/10 13:20 Order name: XRAY Chest (1 view); Complete Time: 19:34 [facility] 11/10 13:42 Order name: US Extremity Venous W Compression Mitchel; Complete Time: 15:34 [facility] 11/10 13:20 Order name: EKG; Complete Time: 13:21 [facility] 11/10 18:20 Order name: Heart Healthy EDNM 11/10 13:20 Order name: Cardiac monitoring; Complete Time: 14:52 [facility] 11/10 13:20 Order name: EKG - Nurse/Tech; Complete Time: 14:52 [facility] 11/10 13:20 Order name: IV Saline Lock; Complete Time: 14:52 [facility] 11/10 13:20 Order name: Labs collected and sent; Complete Time: 14:52 [facility] 11/10 13:20 Order name: O2 Per Protocol; Complete Time: 14:52 [facility] 11/10 13:20 Order name: O2 Sat Monitoring; Complete Time: 14:52 [facility] EC:57 Rate is 81 beats/min. Rhythm is regular. QRS [place] is Normal. PA interval is normal. QRS kamar interval is normal. QT interval is normal. No Q waves. T waves are Normal. No ST changes noted. Clinical impression: NSR w/ Non-specific ST/T Changes and No evidence of ischemia. Interpreted by me. Reviewed by me. Administered Medications: 15:10 Drug: Levalbuterol Inhalation 3.75 mg Route: Inhalation; kr3 19:36 Follow up: Response: No adverse reaction kr3 15:20 Drug: MethylPrednisoLONE IVP 125 mg Route: IVP; Site: right antecubital; kr3 19:36 Follow up: Response: No adverse reaction kr3 16:00 Drug: levofloxacin IVPB 500 mg Volume: 100 ml; Route: IVPB; Infused Over: 60 mins; kr3 Site: right antecubital; 19:36 Follow up: Response: No adverse reaction; IV Status: Completed infusion; IV Intake: kr3 100ml 16:35 Drug: Ipratropium Inhalation Aerosol 0.5 mg Route: Inhalation; kr3 19:36 Follow up: Response: No adverse reaction kr3 17:07 Drug: NS 0.9% IV 1000 ml Route: IV; Rate: 125 ml/hr; Site: right antecubital; kr3 19:35 Follow up: Response: No adverse reaction; IV Status: Completed infusion; IV Intake: kr3 100ml 17:07 Drug: Levalbuterol Inhalation 2.5 mg Route: Inhalation; kr3 19:37 Follow up: Response: No adverse reaction kr3 18:11 Drug: Cefepime IVPB 2 grams Route: IVPB; Rate: 200 ml/hr; Infused Over: 30 mins; Site: iw right forearm; Disposition Summary: 11/10/22 15:57 Hospitalization Ordered Hospitalization Status: Inpatient Admission kmaar Location: Telemetry/MedSurg (Inpatient) kamar Condition: Fair kamar Problem: new kamar Symptoms: have improved kamar Bed/Room Type: Standard kamar Provider: Timoteo Fischer(11/10/22 16:09) kamar Room Assignment: [facility](11/10/22 20:14) cg Diagnosis - COPD/ Chronic obstructive pulmonary disease with (acute) exacerbation kamar - Dyspnea kamar - Hypoxemia kamar Forms: - Medication Reconciliation Form kamar - SBAR form kamar Signatures: Dispatcher [employer] EDEligio Angel MD MD cha Williams, Irene, RN RN iw Cheryle Razo RN RN cg Dyana Gonzalez RN RN carol ann3 Velvet Haynes PA-C PA-C sb4 Corrections: (The following items were deleted from the chart) 16:09 15:57 Juanita Giron cha kamar 20:14 15:57 kamar
[2022-11-10 16:00] LABS: Arterial Blood Carboxyhemoglob 3.9 % (0-1.5); Blood Gas Oxyhemoglobin 91.6 % (94-97); Blood O2 Saturation 96.5 % (92-98.5)
--- NOTE | 2022-11-10 16:00 | RAD REPORT ---
EXAM DESCRIPTION: RAD - Chest Single View - 11/10/2022 3:45 pm CLINICAL HISTORY: COPD Chest pain. COMPARISON: <Comparisons> FINDINGS: Portable technique limits examination quality. Mild atelectasis is present both lung bases. The lungs are otherwise clear. The heart is normal in si ze. No displaced fractures.
[2022-11-10] MEDS ORDERED: NA CHLORIDE 0.9% 100 ML ONE (16:46)
[2022-11-10] MEDS ORDERED: CEFEPIME 2 GM VIAL ONE (16:46)
[2022-11-10 17:40] LABS: SARS-CoV-2 Antigen Rapid Res Negative (Negative)
[2022-11-10] MEDS ORDERED: ACETAMINOPHEN 325 MG TABLET PO PRN (18:09)
[2022-11-10] MEDS ORDERED: HYDROCODONE/APAP 10/325 TAB PO PRN (18:09)
[2022-11-10] MEDS ORDERED: ONDANSETRON 4 MG/2 ML VIAL IV PRN (18:13)
--- NOTE | 2022-11-10 18:22 | P.HP ---
Certification for Inpatient Patient admitted to: Inpatient With expected LOS: >2 Midnights Patient will require the following post-hospital care: None Practitioner: I am a practitioner with admitting privileges, knowledge of patient current condition, hospital course, and medical plan of care. Services: Services provided to patient in accordance with Admission requirements found in Title 42 Section 412.3 of the Code of Federal Regulations Patient History Date of Service: 11/10/22 Reason for admission: Shortness of breath and left lower extremity wound. History of Present Illness: Patient is a 67-year-old male with a past medical history significant for COPD, hypertension, nicotine dependence who presents with complaint of shortness of breath and left lower extremity wound with possible infection. Patient reported that he has been having shortness of breath for the past 2 days. Patient reported that she recently had a cyst removed from his left lower extremity and home health nurse has been performing wound care on the wound. Patient reported that home health nurse informed him to go to the ER due to possibility of infection on left lower extremity wound.. Patient reported associated signs and symptoms of cough, dizziness, headache and chest tightness. Patient denies any other signs and symptoms. Symptoms are aggravated or relieved by nothing. Patient decided to present to the hospital for medical evaluation. Of note, patient uses home O2 therapy at night and as needed. Allergies No Known Allergies Allergy (Verified 09/28/22 15:22) Home Medications: Fluticasone/Umeclidin/Vilanter [Trelegy Ellipta 100-62.5-25] 1 each IH DAILY 10/28/20 Propranolol [Inderal*] 10 mg PO BID tab 11/04/20 Tamsulosin [Flomax*] 0.4 mg PO DAILY cap 11/04/20 Albuterol Sulfate [Albuterol Sulfate Hfa] 2 inhaler IH Q4H PRN 08/10/22 Lidocaine 4% Patch [Lidoderm 5% Patch*] 1 patch TOP DAILY patch 09/30/22 Thiamine HCl [Vitamin B-1*] 200 mg PO BID #60 09/30/22 Trelegy Ellipta 100-62.5-25 1 inh IH DAILY 09/30/22 predniSONE [Deltasone*] 10 mg PO DAILY #30 tab 09/30/22 Albuterol Neb [Proventil 0.083% Neb Soln] 2.5 mg NEB [id number] #60 amp 10/30/22 Hydrocodone 5/APAP 325 [[place] 5/325*] 1 tab PO Q6H PRN #30 tab 10/30/22 Ipratropium Neb [Atrovent*] 0.5 mg NEB [id number] #60 amp 10/30/22 Thiamine HCl [Vitamin B-1*] 100 mg PO DAILY #30 tab 10/30/22 levoFLOXacin [Levaquin*] 750 mg PO DAILY #5 tab 10/30/22 predniSONE [Prednisone*] 20 mg PO BID #11 tab 10/30/22 - Past Medical/Surgical History Diabetic: No -: COPD -: Hypertension -: Alcohol abuse -: Hyponatremia -: Hernia repair Psychosocial/ Personal History: Patient is . He lives at [facility]. - Family History Father -: Heart disease Brother -: Lung disease - Social History Smoking Status: Heavy Tobacco smoker (>10 cigarettes/day) Counseled patient to stop smoking for: less than 10 minutes Smoking therapy provided: Yes Patient receptive to therapy: Yes Alcohol use: Yes CD- Drugs: No Caffeine use: Yes Place of Residence: Home Review of Systems General: Unremarkable Eyes: Unremarkable ENT: Unremarkable Respiratory: Cough, Shortness of Breath, Other (Chest tightness) Cardiovascular: Unremarkable Gastrointestinal: Unremarkable Genitourinary: Unremarkable Musculoskeletal: Unremarkable Integumentary: Other (LLE wound) Neurological: Other (Headache, dizziness) Lymphatics: Unremarkable Physical Examination - Physical Exam General: Alert, In no apparent distress, Oriented x3, Cooperative HEENT: Atraumatic, PERRLA, Mucous membr. moist/pink, EOMI, Sclerae nonicteric Neck: Supple, 2+ carotid pulse no bruit, No LAD, Without JVD or thyroid abnormality Respiratory: Diminished, Expiratory wheezes Cardiovascular: No edema, Regular rate/rhythm, Normal S1 S2 Capillary refill: <2 Seconds Gastrointestinal: Normal bowel sounds, Soft and benign, Non-distended, No tenderness Musculoskeletal: No clubbing, No tenderness Integumentary: No rashes, Other (LLE wound) Neurological: Normal speech, Normal tone, Normal affect Lymphatics: No axilla or inguinal lymphadenopathy - Studies Laboratory Data (last 24 hrs) 11/10/22 14:00: PT 11.7, INR 1.06 11/10/22 14:00: WBC 18.60 H, Hgb 13.5 L, Hct 40.4, Plt Count 253 11/10/22 14:00: Sodium 132 L, Potassium 4.1, BUN 14, Creatinine 0.99, Glucose 109 H, Magnesium 2.1, Total Bilirubin 1.0, AST 5 L, ALT 13 L, Alkaline Phosphatase 60, Lipase 63 Assessment and Plan - Plan --Acute on chronic COPD exacerbation. Chest Xray indicates Mild atelectasis is present both lung bases. The lungs are otherwise clear. The heart is normal in size. No displaced fractures Patient placed on steroids, neb treatment with albuterol\Atrovent. Continue O2 therapy. --Acute on chronic respiratory failure with hypoxia. Continue current treatment regimen. --Left lower extremity wound infection. Doppler ultrasound negative for DVT. Wound care consult initiated. Wound cultures pending. Patient placed on antibiotics. --Acute pain. We will manage pain with current pain medication regimen. --Hypertension. Stable. Continue home medications. -- Leukocytosis. WBC- 18.6. Likely steroid-induced versus left lower extremity wound infection. Blood cultures and wound cultures pending. Continue antibiotics. We will continue to monitor WBC. -- Headache. Tylenol as needed. --Anemia of chronic disease. H&H stable. We will continue monitor hemoglobin and transfuse if less than 7.0. -- BPH. Continue home medication. --Nicotine dependence. Patient placed on nicotine patch and counseled on tobacco cessation. ----DVT prophylaxis with Lovenox subQ. Discharge Plan: Home Plan to discharge in: Greater than 2 days - Advance Directives Does patient have a Living Will: No Does patient have a Durable POA for Healthcare: No - Code Status/Comfort Care Code Status Assessed: Yes Physician Review: Patient Assessed, Agree with Above Assessment and Plan Critical Care: No
[2022-11-10 20:09] LABS: Phosphorus 2.8 mg/dL (2.5-4.9)
[2022-11-10] MEDS: IPRATROPIUM BROM 0.5MG/2.5ML NEB SCH (20:15)
[2022-11-10] MEDS: ALBUTEROL 2.5 MG/3 ML NEB SOL NEB SCH (20:15)
[2022-11-10] MEDS ORDERED: ALBUTEROL 2.5 MG/3 ML NEB SOL ONE (20:19)
[2022-11-10] MEDS: VANCOMYCIN 1.75 GM in NA CHLORIDE 0.9% 500 ML IVPB SCH (23:19)
[2022-11-10] MEDS: ENOXAPARIN 40 MG/0.4 ML SQ SCH (23:20)
[2022-11-10 23:52] VITALS: BMI 30.7
[2022-11-11] MEDS: CEFEPIME 1 GM in NA CHLORIDE 0.9% 100 ML IV SCH ×2 (01:11→07:52)
[2022-11-11] MEDS: METHYLPREDNISOLONE 40 MG INJ IV SCH ×2 (01:11→07:55)
[2022-11-11] MEDS: IPRATROPIUM BROM 0.5MG/2.5ML NEB SCH ×2 (02:50→08:33)
[2022-11-11] MEDS: ALBUTEROL 2.5 MG/3 ML NEB SOL NEB SCH ×2 (02:50→08:33)
[2022-11-11 07:10] LABS: Absolute Lymphocytes (CBC) 0.6 K/uL (0.7-4.9); Hematocrit 37.1 % (39.6-49.0); Lymphocytes % 4.6 % (15.3-44.8); MCV 93.9 fL (80-100); MPV 7.4 fL (7.6-11.3); RBC Red Blood Cell Count 3.95 M/uL (4.33-5.43)
[2022-11-11 07:25] LABS: Potassium 4.6 mEq/L (3.5-5.1)
[2022-11-11] MEDS: VANCOMYCIN 1.75 GM in NA CHLORIDE 0.9% 500 ML IVPB SCH (07:52)
[2022-11-11] MEDS: ENOXAPARIN 40 MG/0.4 ML SQ SCH (07:53)
[2022-11-11 08:28] LABS: Blood Morphology Comment NOT SEEN (NOT SEEN); Platelet Estimate ADEQ; White Blood Cell Scan OK (OK)
[2022-11-11] MEDS ORDERED: NICOTINE 21 MG/PAT TD SCH (09:00)
[2022-11-11] MEDS ORDERED: ASPIRIN 81 MG CHEWABLE TABLET PO SCH (09:00)
[2022-11-11 10:00] VITALS: O2SAT 98
[2022-11-11 12:11] VITALS: BP 121/58; TEMP 96.9
--- NOTE | 2022-11-11 12:41 | P.DS ---
Admission Date: 11/10/22 Discharge Date: 11/11/22 Disposition: DC HOME/HOME HEALTH CARE Discharge Condition: FAIR Reason for Admission: Shortness of breath and left lower extremity wound. - Problems (1) Wound of left lower extremity Current Visit: Yes Status: Acute (2) COPD exacerbation Current Visit: No Status: Acute (3) COPD with exacerbation Current Visit: No Status: Acute (4) Chronic respiratory failure with hypoxia and hypercapnia Current Visit: No Status: Acute (5) Chronic diastolic heart failure Current Visit: No Status: Chronic Brief History of Present Illness: Patient is a 67-year-old male with a past medical history significant for COPD, hypertension, nicotine dependence who presents with complaint of shortness of breath and left lower extremity wound with possible infection. Patient reported shortness of breath for 2 days. Patient reported that he recently had a cyst removed from his left lower extremity and home health nurse has been performing wound care on the wound. Patient reported that home health nurse informed him to go to the ER due to possibility of infection on left lower extremity wound.. Patient reported associated signs and symptoms of cough, dizziness, headache and chest tightness. Chest x-ray on presentation showed mild bilateral atelectasis. Patient was hospitalized for further management. Hospital Course: Patient admitted and started on IV antibiotics. Wound was evaluated by wound care team team and noted wound is clean, no cellulitis and no concern for infection. He was given routine bronchodilators and started on IV steroid. Patient noted to be at baseline respiratory carias. He is discharged with oral prednisone for COPD. Wound care team recommended patient to continue previous wound care. Vital Signs/Physical Exam: Temp Pulse Resp BP Pulse Ox 96.9 F 86 19 121/58 L 97 11/11/22 12:00 11/11/22 12:00 11/11/22 12:00 11/11/22 12:00 11/11/22 12:00 General: Alert, In no apparent distress, Oriented x3 HEENT: Mucous membr. moist/pink Neck: JVD not distended Respiratory: Clear to auscultation bilaterally, Normal air movement Cardiovascular: No edema, Regular rate/rhythm, Normal S1 S2 Gastrointestinal: Normal bowel sounds, Soft and benign, Non-distended Musculoskeletal: No swelling Integumentary: Other (Sutured wound-left leg, central portion gaped wound packed, no surrounding erythema.) Laboratory Data at Discharge: WBC 12.40 thou/uL (4.3-10.9) H 11/11/22 06:59 Hgb 12.1 g/dL (13.6-17.9) L D 11/11/22 06:59 Hct 37.1 % (39.6-49.0) L 11/11/22 06:59 Plt Count 180 thou/uL (152-406) D 11/11/22 06:59 PT 11.7 SECONDS (9.5-12.5) 11/10/22 14:00 INR 1.06 11/10/22 14:00 Sodium 134 mEq/L (136-145) L 11/11/22 06:59 Potassium 4.6 mEq/L (3.5-5.1) 11/11/22 06:59 BUN 15 mg/dL (7-18) 11/11/22 06:59 Creatinine 0.81 mg/dL (0.70-1.30) 11/11/22 06:59 Glucose 194 mg/dL (74-106) H 11/11/22 06:59 Phosphorus 2.8 mg/dL (2.5-4.9) 11/10/22 19:32 Magnesium 2.0 11/10/22 19:32 Total Bilirubin 1.0 mg/dL (0.2-1.0) 11/10/22 14:00 AST 5 U/L (15-37) L 11/10/22 14:00 ALT 13 U/L (16-61) L 11/10/22 14:00 Alkaline Phosphatase 60 U/L (45-117) 11/10/22 14:00 Lipase 63 U/L (13-75) 11/10/22 14:00 Home Medications: Fluticasone/Umeclidin/Vilanter [Trelegy Ellipta 100-62.5-25] 1 each IH DAILY 10/28/20 Propranolol [Inderal*] 10 mg PO BID tab 11/04/20 Tamsulosin [Flomax*] 0.4 mg PO DAILY cap 11/04/20 Albuterol Sulfate [Albuterol Sulfate Hfa] 2 inhaler IH Q4H PRN 08/10/22 Lidocaine 4% Patch [Lidoderm 5% Patch*] 1 patch TOP DAILY patch 09/30/22 Trelegy Ellipta 100-62.5-25 1 inh IH DAILY 09/30/22 Albuterol Neb [Proventil 0.083% Neb Soln] 2.5 mg NEB [id number] #60 amp 10/30/22 Hydrocodone 5/APAP 325 [[place] 5/325*] 1 tab PO Q6H PRN #30 tab 10/30/22 Ipratropium Neb [Atrovent*] 0.5 mg NEB [id number] #60 amp 10/30/22 Thiamine HCl [Vitamin B-1*] 100 mg PO DAILY #30 tab 10/30/22 predniSONE [Deltasone] 20 mg PO DAILY #5 tab 11/11/22 New Medications: predniSONE [Deltasone] 20 mg PO DAILY #5 tab Diet: AHA Activity: Ad kate Followup: NONE,NONE [Primary Care Provider] - 1 Week
--- NOTE | 2022-11-11 17:24 | EKG ---
Test Date: 2022-11-10 Test Time: 14:02:48 Group Therapy Counselor: FLORA MEASUREMENT RESULTS: Intervals: Rate: 81 NH: 164 QRSD: 76 QT: 334 QTc: 387 [place]: P: 59 NH: 164 QRS: 26 T: 57 INTERPRETIVE STATEMENTS: Sinus rhythm with marked sinus arrhythmia Possible Left atrial enlargement Borderline ECG Compared to ECG 10/27/2022 09:41:33 No significant changes Electronically Signed On 11-11-22 17:21:42 CDT by Curtis Sotelo
== END 2022-11-11 15:31 | disposition home or self-care (01) ==
LOC: ER 13:13 → ERHOLD 18:08 → INTOOBSV 18:08 → 4TH 20:30
PROVIDERS: ADMIT Internal Medicine; ATTEND Internal Medicine
DX: J44.1 Chronic obstructive pulmonary disease with (acute) exacerbation (principal); J98.11 Atelectasis; J96.22 Acute and chronic respiratory failure with hypercapnia; J96.21 Acute and chronic respiratory failure with hypoxia; I50.32 Chronic diastolic (congestive) heart failure; S81.802A Unspecified open wound, left lower leg, initial encounter; L08.9 Local infection of the skin and subcutaneous tissue, unspecified; X58.XXXA Exposure to other specified factors, initial encounter; I10 Essential (primary) hypertension; D72.829 Elevated white blood cell count, unspecified; R51.9 Headache, unspecified; D63.1 Anemia in chronic kidney disease; N40.0 Benign prostatic hyperplasia without lower urinary tract symptoms; F17.210 Nicotine dependence, cigarettes, uncomplicated; Z71.6 Tobacco abuse counseling; Z20.822 Contact with and (suspected) exposure to COVID-19; Z98.890 Other specified postprocedural states
CPT/HCPCS: 93005; 87040 ×2; 85025 ×2; 80048 ×2; 36415 ×2; 83735 ×2; 84100; 85610; 80076; 83605; 81003; 84484; 83690; 83880; 71045; 93970; 94640; 82805; 87811; J7614 ×2; J7613 ×3; J7644 ×4; J1650 ×2; J0692 ×3; J2930; J7040 ×2; J7030; J2920 ×2; G0378

== ENCOUNTER 2022-12-18 19:45 | Emergency (ER) | payer OTHER, BC ==
[2022-12-18] MEDS ORDERED: ACETAMINOPHEN 500 MG TAB ONE (20:22)
[2022-12-18] MEDS ORDERED: IBUPROFEN 400 MG TAB ONE (20:23)
[2022-12-18] MEDS ORDERED: NA CHLORIDE 0.9% 1,000 ML ONE (20:23)
[2022-12-18] MEDS ORDERED: ALBUTEROL 2.5 MG/3 ML NEB SOL ONE ×2 (20:23→22:34)
[2022-12-18] MEDS ORDERED: IPRATROPIUM BROM 0.5MG/2.5ML ONE ×2 (20:23→22:35)
[2022-12-18 20:35] LABS: Arterial Blood Carboxyhemoglob 3.2 % (0-1.5); Blood Gas Oxyhemoglobin 89.4 % (94-97); Blood O2 Saturation 93.4 % (92-98.5)
--- NOTE | 2022-12-18 20:37 | RAD REPORT ---
EXAM DESCRIPTION: Kira Single View12/18/2022 8:28 pm CLINICAL HISTORY: Shortness of breath COMPARISON: November 24, 2022 FINDINGS: Lingular atelectasis unchanged. Elevation left hemidiaphragm Right lung appears clear. Heart is mildly enlarged
[2022-12-18 20:58] LABS: Absolute Lymphocytes (CBC) 1.2 K/uL (0.7-4.9); Hematocrit 36.1 % (39.6-49.0); Lymphocytes % 8.9 % (15.3-44.8); MCV 89.9 fL (80-100); MPV 7.6 fL (7.6-11.3); RBC Red Blood Cell Count 4.01 M/uL (4.33-5.43)
[2022-12-18 21:02] LABS: Protime INR 1.25
[2022-12-18 21:12] LABS: Albumin 2.9 g/dL (3.4-5.0); Bilirubin Direct 0.1 mg/dL (0-0.2); Bilirubin Total 0.3 mg/dL (0.2-1.0); Magnesium 1.8 mg/dL (1.6-2.4); Potassium 4.2 mEq/L (3.5-5.1); Protein, Total 6.8 g/dL (6.4-8.2); Troponin High Sensitivity 5.9 pg/mL (<58.9)
[2022-12-18] MEDS ORDERED: NA CHLORIDE 0.9% 100 ML ONE (21:26)
[2022-12-18] MEDS ORDERED: VANCOMYCIN 1 GM/VIAL ONE (21:26)
[2022-12-18] MEDS ORDERED: NA CHLORIDE 0.9% 250 ML ONE (21:26)
[2022-12-18] MEDS ORDERED: PIPERACIL/TAZO 3.375 GM VIAL IV ONE (21:27)
--- NOTE | 2022-12-19 00:38 | EDPHYS ---
Physician Documentation [facility] Name: Randolph Mckeon Age: 67 yrs Sex: Male : 1955 Arrival Date: 12/18/2022 Time: 19:45 Bed 7 Private MD: ED Physician Jose Ye HPI: 12/19 00:39 This 67 yrs old Male presents to ER via EMS with complaints of dyspnea. sp4 12/18 20:05 67-year-old male presents with EMS for complaint of worsening shortness of breath since sp4 this morning, patient has history of COPD, active smoker, oxygen dependent at home 2 L [id number].. 22:13 . sp4 22:26 . sp4 22:31 67-year-old male with past medical history of COPD, hypertension, BPH, tobacco use, sp4 diastolic heart failure, alcohol abuse presents to the emergency department with complaint of worsening dyspnea associated with wheezing. EMS administered Solu-Medrol and albuterol nebulized prior to arrival. Patient is febrile on presentation. Patient reported generalized weakness, worsening dyspnea at home but denied fever. . Patient was admitted here on 11/24/2022 for diarrhea, inguinal hernia, COPD, chronic respiratory failure with hypercapnia, and bilateral lower extremity wounds. Admitting physician was Dr. Timoteo Fischer.. Occasions include fluticasone, propranolol, tamsulosin, albuterol, Trelegy, albuterol, hydrocodone, ipratropium, thiamine, prednisone. Historical: - Allergies: 20:04 No Known Allergies; jb4 - Home Meds: 20:04 Amlodipine [Active]; Lasix Oral [Active]; Metoprolol Tartrate Oral [Active]; tamsulosin jb4 Oral [Active]; - PMHx: 20:04 COPD; Hypertension; Pneumonia; jb4 - PSHx: 20:04 cyst removal on lower left limb; jb4 - Immunization history:: Adult Immunizations up to date. - Social history:: Smoking status: Patient reports the use of cigarette tobacco products. - Family history:: not pertinent. ROS: 22:31 Constitutional: Negative for fever, chills, and weight loss, positive reported sp4 generalized weakness, dyspnea, fatigue Eyes: Negative for injury, pain, redness, and discharge, ENT: Negative for injury, pain, and discharge, Neck: Negative for injury, pain, and swelling, Cardiovascular: Negative for chest pain, palpitations, and edema, Respiratory: Positive for shortness of breath, wheezing, dyspnea, oxygen dependence, negative pleuritic chest pain Abdomen/GI: Negative for abdominal pain, nausea, vomiting, diarrhea, and constipation, Back: Negative for injury and pain, : Negative for injury, bleeding, discharge, and swelling, MS/Extremity: Negative for injury and deformity, Skin: Negative for injury, rash, and discoloration, Neuro: Negative for headache, weakness, numbness, tingling, and seizure, Psych: Negative for depression, anxiety, Allergy/Immunology: Negative for hives, rash, and allergies Endocrine: Negative for neck swelling, polydipsia, polyuria, polyphagia, and weight changes Hematologic/Lymphatic: Negative for swollen nodes, abnormal bleeding, and unusual bruising Exam: 21:09 ECG was reviewed by the Attending Physician. EKG time 2056. sp4 22:31 Constitutional: This is a well developed, well nourished patient who is awake, alert, sp4 patient has chronic ill appearance, but nontoxic, acute dyspnea, on oxygen with active breathing treatment, generalized physical debility and multiple bilateral lower extremities skin ulcers. Head/Face: Normocephalic, atraumatic. Eyes: Pupils equal round and reactive to light, extra-ocular motions intact. Lids and lashes normal. Conjunctiva and sclera are not injected. Cornea within normal limits. Periorbital areas with no swelling, redness, or edema. ENT: Nares patent. No nasal discharge, no septal abnormalities noted. Tympanic membranes are normal and external auditory canals are clear. Oropharynx with no redness, swelling, or masses, exudates, or evidence of obstruction, uvula midline. Mucous membranes moist. Neck: Trachea midline, no thyromegaly or masses palpated, and no cervical lymphadenopathy. Supple, full range of motion without nuchal rigidity, or vertebral point tenderness. No Meningismus. Chest/axilla: Normal chest wall appearance and motion. Nontender with no deformity. No lesions are appreciated. Cardiovascular: Regular rate and rhythm with a normal S1 and S2. No gallops, murmurs, or rubs. Normal PMI, no JVD. No pulse deficits. Respiratory: Lungs have equal breath sounds bilaterally, patient has bilateral expiratory wheezes, dyspnea, tachypnea, mild respiratory distress. Breath sounds are not diminished, negative crackles Abdomen/GI: Soft, non-tender, with normal bowel sounds. No distension or tympany. No guarding or rebound. No evidence of tenderness throughout. Back: No spinal tenderness. No costovertebral tenderness. Skin: Warm, dry with normal turgor. Normal color with no rashes, no lesions, and no evidence of cellulitis. MS/ Extremity: Pulses equal, no cyanosis. Neurovascular intact. Full, normal range of motion. Neuro: Awake and alert, GCS 15, oriented to person, place, time, and situation. Cranial nerves II-XII grossly intact. Motor strength 5/5 in all extremities. Sensory grossly intact. Psych: Awake, alert, with orientation to person, place and time. Behavior, mood, and affect are within normal limits Vital Signs: 20:05 BP 129 / 70; Pulse 80; Resp 26; Temp 101; Pulse Ox 100% on Nebulizer Mask; Weight 97.07 jb4 kg (R); Height 5 ft. 11 in. (R); Pain 0/10; 21:42 BP 95 / 59; Pulse 79; Resp 28; Temp 98.7(O); Pulse Ox 94% on 2 lpm NC; jb4 22:25 BP 96 / 62; Pulse 76; Resp 28; Pulse Ox 94% on 2 lpm NC; jb4 23:45 BP 92 / 60; Pulse 74; Resp 26; Pulse Ox 95% on 2 lpm NC; jb4 12/19 00:30 BP 102 / 72; Pulse 73; Resp 28; Pulse Ox 94% on 2 lpm NC; jb4 02:00 BP 119 / 66; Pulse 73; Resp 23; Temp 97.6(TE); Pulse Ox 100% on Nebulizer Mask; jb4 12/18 20:05 Body Mass Index 29.85 (97.07 kg, 180.34 cm) 4 12/18 20:05 Pain Scale: Adult jb4 MDM: 12/18 20:36 Patient medically screened. sp4 22:31 Data reviewed: vital signs, nurses notes, EMS record, old medical records, lab test sp4 result(s), EKG, radiologic studies, CT scan, plain films. 12/19 00:36 Differential Diagnosis altered mental status, sepsis, flu. Consideration of sp4 Admission/Observation Patient was admitted/placed on observation. Escalation of care including admission/observation considered. Management of patient was discussed with the following: Door Tender: [facility] admitting hospitalist. ED course: Patient CT chest has revealed aneurysmal dilatation of ascending thoracic aorta measuring 4.2 x 4.3 cm, extensive calcification of aortic valve, no evidence of aortic dissection, moderate to severe compressive atelectasis at the left lung base moderate size left pleural fluid collection with secondary compressive atelectasis in the left lower lung field, pleural calcification on the left consistent with loculated left pleural effusion with secondary compressive atelectasis. At this time secondary to loculated pleural effusion patient warrants transfer for higher level of care.. 12/18 20:06 Order name: BMP; Complete Time: 22:22 [facility] 12/18 20:06 Order name: Blood Culture Adult (2) [facility] 12/18 20:06 Order name: CBC with Diff; Complete Time: 22:22 [facility] 12/18 20:06 Order name: CPK; Complete Time: 22:22 [facility] 12/18 20:06 Order name: D-Dimer; Complete Time: 22:22 [facility] 12/18 20:06 Order name: Hepatic Function; Complete Time: 22:22 [facility] 12/18 20:06 Order name: Lipase; Complete Time: 22:22 [facility] 12/18 20:06 Order name: Magnesium; Complete Time: 22:22 [facility] 12/18 20:06 Order name: NT PRO-BNP; Complete Time: 22:22 [facility] 12/18 20:06 Order name: PT-INR; Complete Time: 22:22 [facility] 12/18 20:06 Order name: Ptt, Activated; Complete Time: 22:22 [facility] 12/18 20:06 Order name: Troponin HS; Complete Time: 22:22 [facility] 12/18 20:06 Order name: ABG; Complete Time: 20:48 12/18 20:08 Order name: Procalcitonin; Complete Time: 22:22 [facility] 12/18 20:08 Order name: Lactate w/ 2H reflex if indic.; Complete Time: 22:22 [facility] 12/18 20:09 Order name: COVID-19 SARS RT PCR; Complete Time: 22:22 [facility] 12/18 20:09 Order name: Influenza Screen (a \T\ B); Complete Time: 22:22 [facility] 12/18 20:06 Order name: XRAY CXR (1 view); Complete Time: 20:48 [facility] 12/18 22:26 Order name: CT Chest W/ Con [facility] 12/18 20:06 Order name: Call RT [facility] 12/18 20:06 Order name: EKG; Complete Time: 20:07 [facility] 12/18 20:06 Order name: Cardiac monitoring; Complete Time: 20:17 [facility] 12/18 20:06 Order name: EKG - Nurse/Tech; Complete Time: 21:00 [facility] 12/18 20:06 Order name: IV Saline Lock; Complete Time: 20:51 [facility] 12/18 20:06 Order name: Labs collected and sent; Complete Time: 20:51 [facility] 12/18 20:06 Order name: O2 Per Protocol; Complete Time: 20:17 [facility] 12/18 20:06 Order name: O2 Sat Monitoring; Complete Time: 20:17 EC/28 21:09 Rate is 79 beats/min. Rhythm is regular, Normal Sinus Rhythm. QRS [place] is Normal. ID sp4 interval is normal. QRS interval is normal. QT interval is normal. T waves are Normal. No ST changes noted. Clinical impression: No evidence of ischemia. Interpreted by me. Administered Medications: 20:30 Drug: DuoNeb Nebulize (3:1) (2.5 mg - 0.5 mg) 3 ml Route: Nebulizer; 4 20:30 Drug: Acetaminophen PO 1000 mg Route: PO; jb4 21:30 Follow up: Response: No adverse reaction; Marked relief of symptoms jb4 20:30 Drug: Ibuprofen PO 800 mg Route: PO; jb4 21:30 Follow up: Response: No adverse reaction; Marked relief of symptoms 4 20:30 Drug: NS 0.9% IV 1000 ml Route: IV; Rate: 125 ml/hr; Site: right forearm; jb4 12/19 02:41 Follow up: IV Status: Infusion continued upon transfer 4 12/18 20:39 Not Given (Patient Refused): Ondansetron IVP 4 mg IVP once; over 2 minutes jb4 21:42 Drug: Piperacillin-Tazobactam IVPB 3.375 grams Route: IVPB; Infused Over: 60 mins; jb4 Site: right forearm; 22:42 Follow up: Response: No adverse reaction; IV Status: Completed infusion; IV Intake: jb4 100ml 21:42 Drug: vancoMYCIN IVPB 1 grams Route: IVPB; Infused Over: 2 hrs; Site: left forearm; jb4 23:42 Follow up: Response: No adverse reaction; IV Status: Completed infusion; IV Intake: jb4 250ml 22:30 Drug: DuoNeb Nebulize (3:1) (2.5 mg - 0.5 mg) 3 ml Route: Nebulizer; as6 23:00 Follow up: Response: No adverse reaction; Marked relief of symptoms jb4 12/19 01:22 Drug: DuoNeb Nebulize (3:1) (2.5 mg - 0.5 mg) 3 ml Route: Nebulizer; jb4 02:40 Follow up: Response: No adverse reaction; Marked relief of symptoms jb4 01:34 Drug: Albumin IVPB 50 grams Volume: 100 ml; Route: IVPB; Site: right forearm; jb4 02:40 Follow up: IV Status: Infusion continued upon transfer jb4 Disposition Summary: 12/19/22 00:37 Transfer Ordered Transfer Location: [facility] sp4 Reason: Higher level of care sp4 Condition: Fair sp4 Problem: new sp4 Symptoms: have improved sp4 Accepting Physician: [facility] admitting hospitalist(12/19/22 02:44) jb4 Diagnosis - COPD with acute exacerbation, hypoxemia, hypercarbia, loculated left pleural sp4 effusion, left lung empyema, small pericardial effusion, Forms: - Medication Reconciliation Form sp4 - SBAR form sp4 Signatures: Dispatcher [employer] EDRob Prescott, SENIOR RESEARCH ASSOCIATE-C SENIOR RESEARCH ASSOCIATE-Cla1 Nilson Harding RN RN jb4 Gerardo Chiang RN RN as6 Jose Ye MD MD sp4 Corrections: (The following items were deleted from the chart) 00:37 [facility] admitting hospitalist sp4 jb4
--- NOTE | 2022-12-19 00:38 | ER ---
Nurse's Notes [facility] Name: Randolph Mckeon Age: 67 yrs Sex: Male : 1955 Arrival Date: 12/18/2022 Time: 19:45 Bed 7 Private MD: Diagnosis: COPD with acute exacerbation, hypoxemia, hypercarbia, loculated left pleural effusion, left lung empyema, small pericardial effusion, Presentation: 12/18 20:02 Chief complaint: EMS states: Pt was here 3 weeks ago for pneumonia. Today called EMS jb4 for SOB. 90% on RA upon EMS arrival. Was given A:A 1:1 and 125mg of Solu-Medrol ia 20g RFA. Coronavirus screen: Client presents with at least one sign or symptom that may indicate coronavirus-19. Provider contacted for isolation considerations. Ebola Screen: No symptoms or risks identified at this time. Initial Sepsis Screen: Does the patient meet any 2 criteria? RR > 20 per min. Temp <36.0*C (96.8*F)) or > 38.3*C (100.9*F). Yes Does the patient have a suspected source of infection? Yes: Skin breakdown/wound. Risk Assessment: Do you want to hurt yourself or someone else? Patient reports no desire to harm self or others. Onset of symptoms was December 18, 2022. Transition of care: patient was not received from another setting of care. 20:02 Method Of Arrival: EMS: [facility] jb4 20:02 Acuity: YANNICK 3 jb4 Historical: - Allergies: 20:04 No Known Allergies; jb4 - Home Meds: 20:04 Amlodipine [Active]; Lasix Oral [Active]; Metoprolol Tartrate Oral [Active]; tamsulosin jb4 Oral [Active]; - PMHx: 20:04 COPD; Hypertension; Pneumonia; jb4 - PSHx: 20:04 cyst removal on lower left limb; jb4 - Immunization history:: Adult Immunizations up to date. - Social history:: Smoking status: Patient reports the use of cigarette tobacco products. - Family history:: not pertinent. Screenin:00 [facility] ED Fall Risk Assessment (Adult) History of falling in the last 3 months, jb4 including since admission No falls in past 3 months (0 pts) Confusion or Disorientation No (0 pts) Score/Fall Risk Level 0 - 2 = Low Risk Oriented to surroundings, Maintained a safe environment. Abuse screen: Denies threats or abuse. Nutritional screening: No deficits noted. Tuberculosis screening: No symptoms or risk factors identified. Assessment: 20:00 General: Appears in no apparent distress. uncomfortable, Behavior is calm, cooperative. jb4 Pain: Denies pain. Neuro: Level of Consciousness is awake, alert, obeys commands, Oriented to person, place, time, situation. Cardiovascular: Patient's skin is warm and dry. Respiratory: Airway is patent Respiratory effort is even, labored, Respiratory pattern is symmetrical, tachypnea. GI: No signs and/or symptoms were reported involving the gastrointestinal system. : No signs and/or symptoms were reported regarding the genitourinary system. EENT: No signs and/or symptoms were reported regarding the EENT system. Derm: Skin is intact, Skin is pink, warm \T\ dry. 21:45 Reassessment: Patient appears in no apparent distress at this time. Patient and/or jb4 family updated on plan of care and expected duration. Pain level reassessed. Respiratory: Airway is patent Respiratory effort is even, labored, Respiratory pattern is symmetrical, tachypnea. 23:00 Reassessment: Patient appears in no apparent distress at this time. No changes from jb4 previously documented assessment. Patient and/or family updated on plan of care and expected duration. Pain level reassessed. 12/19 00:00 Reassessment: Pt resting in bed with no s/s of pain or distress noted. Respirations are jb4 tachypneic and unlabored. 01:01 Reassessment: Patient appears in no apparent distress at this time. No changes from jb4 previously documented assessment. Patient and/or family updated on plan of care and expected duration. Pain level reassessed. Vital Signs: 12/18 20:05 BP 129 / 70; Pulse 80; Resp 26; Temp 101; Pulse Ox 100% on Nebulizer Mask; Weight 97.07 jb4 kg (R); Height 5 ft. 11 in. (R); Pain 0/10; 21:42 BP 95 / 59; Pulse 79; Resp 28; Temp 98.7(O); Pulse Ox 94% on 2 lpm NC; jb4 22:25 BP 96 / 62; Pulse 76; Resp 28; Pulse Ox 94% on 2 lpm NC; jb4 23:45 BP 92 / 60; Pulse 74; Resp 26; Pulse Ox 95% on 2 lpm NC; jb4 12/19 00:30 BP 102 / 72; Pulse 73; Resp 28; Pulse Ox 94% on 2 lpm NC; jb4 02:00 BP 119 / 66; Pulse 73; Resp 23; Temp 97.6(TE); Pulse Ox 100% on Nebulizer Mask; jb4 12/18 20:05 Body Mass Index 29.85 (97.07 kg, 180.34 cm) jb4 12/18 20:05 Pain Scale: Adult jb4 ED Course: 12/18 20:00 Patient has correct armband on for positive identification. Bed in low position. Call jb4 light in reach. Side rails up X 1. Client placed on continuous cardiac and pulse oximetry monitoring. NIBP monitoring applied. 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 20:02 Patient arrived in ED. jb4 20:04 Triage completed. jb4 20:04 Jose Ye MD is Attending Physician. sp4 20:07 Arm band placed on right wrist. jb4 20:30 XRAY CXR (1 view) In Process Unspecified. EDMS 21:05 Inserted saline lock: 18 gauge in left forearm, using aseptic technique. Blood jb4 collected. 21:05 First set of blood cultures drawn by tx. jb4 21:30 Nilson Harding, SAMEER is Primary Nurse. jb4 23:34 CT Chest W/ Con In Process Unspecified. EDMS 12/19 00:18 Initiated transfer to [facility], spoke with Cierra Diaz. wm 01:27 Pt accepted for transfer by Dr. Spaulding \T\ 0104 per Cierra Diaz. wm 02:43 No provider procedures requiring assistance completed. Patient transferred, IV remains jb4 in place. Administered Medications: 12/18 20:30 Drug: DuoNeb Nebulize (3:1) (2.5 mg - 0.5 mg) 3 ml Route: Nebulizer; jb4 20:30 Drug: Acetaminophen PO 1000 mg Route: PO; jb4 21:30 Follow up: Response: No adverse reaction; Marked relief of symptoms jb4 20:30 Drug: Ibuprofen PO 800 mg Route: PO; jb4 21:30 Follow up: Response: No adverse reaction; Marked relief of symptoms jb4 20:30 Drug: NS 0.9% IV 1000 ml Route: IV; Rate: 125 ml/hr; Site: right forearm; jb4 12/19 02:41 Follow up: IV Status: Infusion continued upon transfer jb4 12/18 20:39 Not Given (Patient Refused): Ondansetron IVP 4 mg IVP once; over 2 minutes jb4 21:42 Drug: Piperacillin-Tazobactam IVPB 3.375 grams Route: IVPB; Infused Over: 60 mins; jb4 Site: right forearm; 22:42 Follow up: Response: No adverse reaction; IV Status: Completed infusion; IV Intake: jb4 100ml 21:42 Drug: vancoMYCIN IVPB 1 grams Route: IVPB; Infused Over: 2 hrs; Site: left forearm; jb4 23:42 Follow up: Response: No adverse reaction; IV Status: Completed infusion; IV Intake: jb4 250ml 22:30 Drug: DuoNeb Nebulize (3:1) (2.5 mg - 0.5 mg) 3 ml Route: Nebulizer; as6 23:00 Follow up: Response: No adverse reaction; Marked relief of symptoms jb4 12/19 01:22 Drug: DuoNeb Nebulize (3:1) (2.5 mg - 0.5 mg) 3 ml Route: Nebulizer; jb4 02:40 Follow up: Response: No adverse reaction; Marked relief of symptoms jb4 01:34 Drug: Albumin IVPB 50 grams Volume: 100 ml; Route: IVPB; Site: right forearm; jb4 02:40 Follow up: IV Status: Infusion continued upon transfer jb4 Medication: 02:44 VIS not applicable for this client. jb4 Intake: 12/18 22:42 IV: 100ml; Total: 100ml. jb4 23:42 IV: 250ml; Total: 350ml. jb4 Outcome: 12/19 00:37 ER care complete, transfer ordered by MD. flores 02:43 Transferred by ground EMS to [facility], Transfer form completed. jb4 X-rays sent w/ patient. 02:43 Condition: stable 02:43 Discharge instructions given to patient, Instructed on the need for transfer, Demonstrated understanding of instructions. 02:44 Patient left the ED. jb4 Signatures: Dispatcher [employer] EDMS Nilson Harding RN RN jb4 Eileen Nagel Ashby, RN RN as6 Jose Ye MD MD sp4 Corrections: (The following items were deleted from the chart) 12/18 20:07 20:02 Initial Sepsis Screen: Does the patient meet any 2 criteria? Temp <36.0*C jb4 (96.8*F)) or > 38.3*C (100.9*F). Yes jb4
[2022-12-19] MEDS ORDERED: IPRATROPIUM BROM 0.5MG/2.5ML ONE (01:22)
[2022-12-19] MEDS ORDERED: ALBUTEROL 2.5 MG/3 ML NEB SOL ONE (01:25)
[2022-12-19] MEDS ORDERED: ALBUMIN HUMAN 25% 200 ML IV ONE (01:30)
[2022-12-19 02:57] VITALS: BP 119/66; TEMP 97.6; O2SAT 100
--- NOTE | 2022-12-19 15:18 | EKG ---
Test Date: 2022-12-18 Test Time: 20:57:29 Applications Support Lead: MEASUREMENT RESULTS: Intervals: Rate: 79 NE: 182 QRSD: 94 QT: 370 QTc: 424 Strang: P: 49 NE: 182 QRS: 20 T: 49 INTERPRETIVE STATEMENTS: Normal sinus rhythm Nonspecific T wave abnormality Abnormal ECG Compared to ECG 11/10/2022 14:02:48 T-wave abnormality now present Sinus arrhythmia no longer present Electronically Signed On 12-19-22 15:17:09 CDT by Curtis Sotelo
--- NOTE | 2022-12-20 15:54 | RAD REPORT ---
EXAM DESCRIPTION: CT - Thorax W/ Con - 12/19/2022 7:29 am CLINICAL HISTORY: COPD.. TECHNIQUE: 5 mm axial images of the thorax were obtained with intravenous contrast. Coronal and sagi ttal reformatted images were obtained. COMPARISON: None. DOSE OPTIMIZATION: This facility uses dose optimization techniques as appropriate to perform exams, i ncluding at least one of the following techniques: 1. Automated exposure control. 2. Adjustment of the mA and/or kV according to patient size (this includes techniques or standardized protocols for targeted exams where dose is matched to the indication/reason for exam, i.e. extremiti es or head). 3. Use of iterative reconstructive technique. FINDINGS: Lung Zaidi: There are no acute infiltrates. There is mild dependent atelectasis in the right lung base. There is moderately severe compressive atelectasis in the left lung base. Mediastinal Structures: There is aneurysmal dilatation of the ascending thoracic aorta measuring 4.2 x 4.3 cm. There are extensive calcifications about the aortic valve. There is no evidence of aortic dissection. There is mild atherosclerotic disease about the thoracic aorta. There is a small pericardial effusion. There is evidence of coronary arterial disease. Pleural Space: There is a moderate-sized loculated left pleural fluid collection with secondary compr essive atelectasis of the left lower lung field. There are pleural calcifications on the left. Axillae: Normal. Upper Abdomen: No significant abnormality. Bony Structures: No suspicious lesions. IMPRESSION: 1. Extensive aortic valve calcifications with aneurysmal dilatation of the ascending tho racic aorta. Consider aortic valve stenosis. 2. Small pericardial effusion. 3. Coronary arterial disease. 4. Moderate-sized loculated pleural fluid collection on the left with secondary compressive atelectas is. Electronically signed by: Christiano Tovar MD 12/18/2022 11:55 PM CDT Due to temporary technical issues with the PACS/Fluency reporting system, reports are being signed by the in house radiologists without review as a courtesy to insure prompt reporting. The interpreting radiologist is fully responsible for the content of the report.
== END 2022-12-19 02:44 | disposition short-term general hospital (02) ==
LOC: ER 19:45
DX: J44.1 Chronic obstructive pulmonary disease with (acute) exacerbation (principal); R09.02 Hypoxemia; R06.89 Other abnormalities of breathing; J90 Pleural effusion, not elsewhere classified; I31.39 Other pericardial effusion (noninflammatory); J86.9 Pyothorax without fistula; I10 Essential (primary) hypertension; F17.210 Nicotine dependence, cigarettes, uncomplicated; Z20.822 Contact with and (suspected) exposure to COVID-19; Z99.81 Dependence on supplemental oxygen
CPT/HCPCS: 93005; 87040 ×2; 85025; 80048; 36415; 83735; 82550; 85610; 85379; 80076; 83605; 85730; 84484; 83690; 84145; 83880; 87804 ×2; 71260; 71045; 82805; U0003; Q9967; J2543; J7613 ×3; J7644 ×3; P9047; J7050; J7030; 94640; 99285

== ENCOUNTER 2022-12-31 14:33 | Emergency (ER) | payer OTHER, BC ==
--- OUTSIDE RECORDS SUMMARY | 2022-12-31 14:37 | XMS REPORT | Continuity of Care Document ---
:1955 Author Organization [facility] t Address [address] [place] [address] [place] [id number] Care Team Providers Name Role Phone ADRIAN OROPEZA Attending Clinician Unavailable Jasson ZULUAGA, Wesley Matias Attending Clinician Stacey Oneil MD Attending Clinician Jose Enrique ZULUAGA, Adrian Quinones Attending Clinician [phone] WESLEY MENDOZA Attending Clinician Unavailable Lucas Klein MD Attending Clinician Sheikh MARGARETH, Keo Patton Attending Clinician KEO MADSEN Attending Clinician Unavailable WESLEY MENDOZA Admitting Clinician Unavailable Payers Payer Name Policy Type Policy Number Effective Date Expiration Date S regan MEDICARE A B [id number] 2022 00:00:00 BCBS INDEMNITY NM [id number] 2022 OS 00:00:00 MEDICARE PART A [id number] 2022 \\T\\ B - MEDICARE 00:00:00 PAR PLAN - [id number] 2022 INDEMNITY - BCBS 00:00:00 Problems Condition Condition Condition Status Onset Resolution Last Treating Co mments Source Name Details Category Date Date Treatment Clinician Date COPD COPD Disease Recurre [facility]ce 12-28 Audrey kes on on 00:00: Medical 00 Center Colon Colon Disease Active [facility] polyp polyp -08 [facility] Shortness Shortness Disease Active [facility] of breath of breath 12-19 [facility] 00:00: Medical Center Allergies, Adverse Reactions, Alerts Allergy Allergy Status Severity Reaction(s) Onset Inactive Treating Comm ents Source Name Type Date Date Clinician NO KNOWN Allergy Active [facility] Social History Social Habit Start Date Stop Date Quantity Comments Source History of tobacco Passive smoker [facility] use [facility] History [facility] Transport Non-Med Medical Center Alcohol intake 2022-12-25 2022-12-25 Ex-drinker [facility] 00:[facility]00 00:00:00 (finding) Medical Center Exposure to 2022-12-09 2022-12-[address] [facility] SARS-CoV-2 (event) 00:00:00 03:57:00 Med[facility] Tobacco use and 2022-12-19 2022-12-19 Sm[address] [facility] exposure 00:00:00 00:00:00 non-user Medical Center Cigarettes smoked 2022-12-19 2022-12-[address] [facility] current (pack per 00:00:00 00:00:00 Medical Center day) - Reported Cigarette 2022-12-19 2022-12-[address] [facility] pack-years 00:00:00 00:00:00 Medical Center History [facility] 2022-12-19 2022-12-[address] [facility] Transport Med 00:00:00 00:00:[address] History [facility] 2022-12-19 2022-12-[address] [facility] Housing Unable to 00:00:00 00:00:00 Medical Center Pay History [facility] 2022-12-19 2022-12-[address] [facility] Housing Places 00:00:00 00:00:00 Medical Ce nter Lived History [facility] 2022-12-19 2022-12-[address] [facility] Housing Homeless 00:00:00 00:00:00 Medical Center Last Year Sex Assigned At [address] Audrey kes 00:00:00 00:00:00 Medical Center Smoking Status Start Date Stop Date Source Smokes tobacco daily 2022-12-19 00:00:00 [facility] Medications Ordered Filled Start Stop Current Ordering Indication Dosage Frequency Signature Comments Components Source Medication Medication Date Date Medication? Clinician (SIG) Name Name amLODIPine 2022-0 Yes 5mg QD Take 1 [facility] (NORVASC) 5 5-08 tablet (5 [facility] MG tablet 12:54: mg total) Med ical 02 by mouth Center in the morning. tamsulosin 2022-0 Yes .4mg QD Take 1 [facility] (FLOMAX) 5-08 capsule [facility] 0.4 mg Cap 12:54: (0.4 mg Medi [place] 24 hr 02 total) by Center capsule mouth in the morning. potassium 2022-0 Yes 10meq QD Take 1 [facility] chloride 5-08 tablet (10 [facility] (KLOR-CON-M 12:54: mEq total) Medical ) 10 MEQ CR 02 by mouth Cent er tablet in the morning. fluticasone 0 Yes Inhale by C [facility] -umeclidin- 5-08 mouth via [facility] es vilanter 12:54: inhaler. Medic al (Trelegy 02 Center Ellipta) 200-62.5-25 mcg DsDv propranoloL 2022-0 2022- No 10mg Q.5D Take [address] (INDERAL) 5-08 05-08 tablet (10 [facility] 10 MG 10:58: 00:00 mg total) Medica l tablet 47 :00 by mouth Center in the morning and 1 tablet (10 mg total) before bedtime. albuterol 2022-0 2022- No 1.25mg Take [address] (ACCUNEB) -08 05-08 (1.25 mg [facility]ukes 1.25 mg/3 10:58: 00:00 total) by Me dical mL 47 :00 nebulizati [address] [facility] nebulizer on every 6 solution (six) hours as needed for Wheezing. metoprolol 2022-0 Yes 12.5mg Q.5D Take 0.[address] tartrate 5-08 tablets [facility] (LOPRESSOR) 00:00: (12.5 mg Me dical 25 MG 00 total) by Center tablet mouth in the morning and 0.5 tablets (12.5 mg total) before bedtime. apixaban 2022-0 Yes 5mg Q.5D Take [address] (ELIQUIS) 5 5-08 tablet (5 [facility] mg Tab 00:00: mg total) Medica l tablet 00 by mouth Center in the morning and 1 tablet (5 mg total) before bedtime. albuterol 3-0 Yes 1.25mg Take [address] (ACCUNEB) 5-08 (1.25 mg [facility] 1.25 mg/3 00:00: total) by Med ical mL 00 nebulizati Center nebulizer on every 6 solution (six) hours as needed for Wheezing. amLODIPine 2023-0 Yes 5mg QD Take 1 [facility] (NORVASC) 5 5-01 tablet (5 [facility] MG tablet 15:55: mg total) Med ical 45 by mouth Center in the morning. tamsulosin 2023-0 Yes .4mg QD Take 1 [facility] (FLOMAX) 5- capsule [facility] 0.4 mg Cap 15:55: (0.4 mg Medi [place] 24 hr 45 total) by Center capsule mouth in the morning. potassium 3-0 Yes 10meq QD Take 1 [facility] chloride 5-01 tablet (10 [facility] (KLOR-CON-M 15:55: mEq total) Medical ) 10 MEQ CR 45 by mouth Cent er tablet in the morning. propranoloL 2023-0 Yes 10mg Q.5D Take [address] (INDERAL) 5-01 tablet (10 Luke s 10 MG 15:55: mg total) Medical tablet 45 by mouth Center in the morning and 1 tablet (10 mg total) before bedtime. fluticasone 2022-0 Yes Inhale by C HI [facility] -umeclidin- 5 mouth via [place] vilanter 15:55: inhaler. Medic al (Trelegy 45 Center Ellipta) 200-62.5-25 mcg DsDv albuterol 2022-0 Yes 1.25mg Take [address] (ACCUNEB) 5-01 (1.25 mg [facility]ukes 1.25 mg/3 15:55: total) by Med ical mL 45 nebulizati Center nebulizer on every 6 solution (six) hours as needed for Wheezing. Vital Signs Vital Name Observation Time Observation Value Comments Source HEIGHT 2022-12-19 06:46:00 180.3 cm WEIGHT 2022-12-19 06:46:00 97.7 kg HEIGHT 2022-12-19 06:46:00 180.3 cm WEIGHT 2022-12-19 06:46:00 97.7 kg HEIGHT 2022-12-19 06:46:00 180.3 cm WEIGHT 2022-12-19 06:46:00 97.7 kg Systolic blood 2022-12-28 11:00:00 115 mm[Hg] [facility] Diastolic blood 2022-12-28 11:00:00 74 mm[Hg] [facility] Heart rate 2022-12-28 11:00:00 65 /min [facility] Body temperature 2022-12-28 11:00:[address] [facility] Respiratory rate 2022-12-28 11:00:00 20 /min [facility] Oxygen saturation in 2022-12-28 11:00:00 100 /min [facility] Arterial blood by Medical Ce nter Pulse oximetry Systolic blood 2022-12-28 07:00:00 117 mm[Hg] [facility] Diastolic blood 2022-12-28 07:00:00 65 mm[Hg] [facility] Heart rate 2022-12-28 07:00:00 62 /min [facility] Body temperature 2022-12-28 07:00:[address] [facility] Respiratory rate 2022-12-28 07:00:00 20 /min [facility] Oxygen saturation in 2022-12-28 07:00:00 98 /min [facility] Arterial blood by Medical Ce nter Pulse oximetry Body height 2022-12-19 06:46:00 180.3 cm [facility] Body weight 2022-12-19 06:46:00 97.7 kg [facility] BMI 2022-12-19 06:46:00 30.04 kg/m2 [facility] Procedures Procedure Date / Time Performed Performing Clinician Sourc e CBC W/PLT COUNT & AUTO 2022-12-28 04:14:00 Adrian Oropeza [facility] DIFFERENTIAL [facility] MAGNESIUM 2022-12-28 04:14:00 Adrian Oropeza [facility] BASIC METABOLIC PANEL 2022-12-28 04:14:00 Jose Enrique, [facility] CBC W/PLT COUNT & AUTO 2022-12-28 04:14:00 Jose Enrique, [facility] S alessia [facility] HIGH SENSITIVITY 2022-12-27 00:19:00 Jose Enrique, [facility] s TROPONIN I [facility] BASIC METABOLIC PANEL 2022-12-27 00:19:00 Jose Enrique, [facility] CBC W/PLT COUNT & AUTO 2022-12-27 00:19:00 Jose Enrique, [facility] S [facility] MAGNESIUM 2022-12-27 00:19:00 Jose Enrique, [facility] TSH/FREE T4 IF INDICATED 2022-12-27 00:19:00 Jose Enrique, [facility] CBC W/PLT COUNT & AUTO 2022-12-27 00:19:00 Jose Enrique, [facility] S [facility] HIGH SENSITIVITY 2022-12-26 13:48:00 Jose Enrique, [facility] s TROPONIN I [facility] ECG 12-LEAD 2022-12-26 12:37:14 Unknown, Hl7 [facility] ECG 12-LEAD 2022-12-26 12:37:14 Unknown, 7 [facility] ECG 12-LEAD 2022-12-26 12:36:52 Jose Enrique, [facility] ECG 12-LEAD 2022-12-26 12:36:52 Unknown, Hl7 [facility] ECG 12-LEAD 2022-12-26 12:36:52 Unknown, 7 [facility] CBC W/PLT COUNT & AUTO 2022-12-26 02:27:00 Jose Enrique, [facility] S [facility] BASIC METABOLIC PANEL 2022-12-26 02:27:00 Jose Enrique, [facility] MAGNESIUM 2022-12-26 02:27:00 Jose Enrique, [facility] CBC W/PLT COUNT & AUTO 2022-12-26 02:27:00 Jose Enrique, [facility] S t [facility] REPORT OF PROCEDURE - 2022-12-25 14:41:41 Sheikh [facility] ENDOSCOPY [facility] TISSUE EXAM 2022-12-25 14:10:00 Sheikh [facility] COLONOSCOPY, WITH 2022-12-25 13:28:00 Madsen [facility] POLYPECTOMY [facility] CBC W/PLT COUNT & AUTO 2022-12-25 04:11:00 Jose Enrique, [facility] S t [facility] BASIC METABOLIC PANEL 2022-12-25 04:11:00 Jose Enrique, [facility] MAGNESIUM 2022-12-25 04:11:00 [facility], [facility] CBC W/PLT COUNT & AUTO 2022-12-25 04:11:00 [facility], [facility] S [facility] POCT-GLUCOSE METER 2022-12-24 12:01:00 [facility], [facility] CBC W/PLT COUNT & AUTO 2022-12-24 03:55:00 Jose Enrique, [facility] S t [facility] BASIC METABOLIC PANEL 2022-12-24 03:55:00 [facility], [facility] MAGNESIUM 2022-12-24 03:55:00 Jose Enrique, [facility] CBC W/PLT COUNT & AUTO 2022-12-24 03:55:00 Jose Enrique, [facility] S t [facility] CBC W/PLT COUNT & AUTO 2022-12-23 04:33:00 Jose Enrique, [facility] S t [facility] BASIC METABOLIC PANEL 2022-12-23 04:33:00 Jose Enrique, [facility] MAGNESIUM 2022-12-23 04:33:00 Jose Enrique, [facility] CBC W/PLT COUNT & AUTO 2022-12-23 04:33:00 Jose Enrique, [facility] P.E.T./CT SKULL BASE TO 2022-12-22 16:11:00 ThadStacey [facility] MID-THIGH [facility] POCT-GLUCOSE METER 2022-12-22 13:52:00 [facility], [facility] US CHEST 2022-12-22 11:37:00 [facility], [facility] CBC W/PLT COUNT & AUTO 2022-12-22 03:04:00 [facility], [facility] BASIC METABOLIC PANEL 2022-12-22 03:04:00 [facility], [facility] MAGNESIUM 2022-12-22 03:04:00 [facility], [facility] CBC W/PLT COUNT & AUTO 2022-12-22 03:04:00 [facility], [facility] PROTHROMBIN TIME/INR 2022-12-21 14:29:00 Rubia Brooks [facility] 2D ECHO W/ DOPPLER 2022-12-21 12:19:12 Wesley Mendoza [facility] (CW/PW/COLOR) [facility] CBC W/PLT COUNT & AUTO 2022-12-21 08:40:00 [facility], [facility] CBC W/PLT COUNT & AUTO 2022-12-21 08:40:00 [facility], [facility] BASIC METABOLIC PANEL 2022-12-21 08:40:00 [facility], [facility] MAGNESIUM 2022-12-21 08:40:00 [facility] VANCOMYCIN LEVEL, TROUGH 2022-12-20 09:34:00 Chalo, [facility] MRSA SCREEN 2022-12-19 12:58:00 Chalo, [facility] XR CHEST 1 VIEW PORTABLE 2022-12-19 12:50:[address] [facility] / BEDSIDE Medical [facility] ABORH, MANUAL 2022-12-19 06:31:00 Francis, Sindy Arlen [facility] TYPE AND SCREEN, 2022-12-19 06:03:00 Wesley Mendoza [facility] AUTOMATED [facility] CBC W/PLT COUNT & AUTO 2022-12-19 06:03:00 Wesley Mendoza [facility] DIFFERENTIAL [facility] VANCOMYCIN LEVEL, RANDOM 2022-12-19 06:03:[address] [facility] CBC W/PLT COUNT & AUTO 2022-12-19 06:03:00 Wesley Mendoza [facility] DIFFERENTIAL [facility] BASIC METABOLIC PANEL 2022-12-19 06:03:00 Wesley Mendoza [facility] MAGNESIUM 2022-12-19 06:03:[address] [facility] PHOSPHORUS 2022-12-19 06:03:[address] [facility] OSMOLALITY, SERUM 2022-12-19 06:03:00 Wesley Mendoza [facility] EKG-SCANNED 2022-12-19 00:00:00 Provider, Default [facility] es [facility] Plan of Care Planned Activity Planned Date Details Comments Source Future Scheduled 2032-12-25 Screening for malignant [facility] Test 00:00:00 neoplasm of colon Medical Ce nter (procedure) [code = 008893278] Future Scheduled 2032-12-25 Screening for malignant [facility] Test 00:00:00 neoplasm of colon Medical Ce nter (procedure) [code = 591715043] Future Scheduled 2032-12-25 Screening for malignant [facility] Test 00:00:00 neoplasm of colon Medical Ce nter (procedure) [code = 820093732] Future Scheduled 2032-12-25 Screening for malignant [facility] Test 00:00:00 neoplasm of colon Medical Ce nter (procedure) [code = 803643850] Future Scheduled 2022-08-[address] [facility] Test 00:00:00 (12+) [code = Medical Center DEPRESSION SCREENING (12+)] Future Scheduled 2022-08-23 FALLS RISK SCREENING [facility] Test 00:00:00 [code = FALLS RISK Medical C enter SCREENING] Future Scheduled 2022-08-[address] [facility] Test 00:00:00 (12+) [code = Medical Center DEPRESSION SCREENING (12+)] Future Scheduled 2022-08-23 FALLS RISK SCREENING [facility] Test 00:00:00 [code = FALLS RISK Medical C enter SCREENING] Future Scheduled [address] [facility] Test 00:00:00 aneurysm screening Medical C enter (procedure) [code = 406775690] Future Scheduled [address] [facility] Test 00:00:00 aneurysm screening Medical C enter (procedure) [code = 014754751] Future Scheduled 2022-02-20 Medicare IPPE (WELCOME [facility] 00:00:00 TO MEDICARE) [code = Medical Center Medicare IPPE (WELCOME TO MEDICARE)] Future Scheduled 2022-02-20 Medicare IPPE (WELCOME [facility] 00:00:00 TO MEDICARE) [code = Medical Center Medicare IPPE (WELCOME TO MEDICARE)] Future Scheduled 2007 Screening for malignant [facility] Test 00:00:00 neoplasm of lung Medical Gerardo ter (procedure) [code = 166832251] Future Scheduled 2007 SHINGLES VACCINES ([address] [facility] Test 00:00:00 2) [code = [facility] VACCINES (1 of 2)] Future Scheduled 2007 Screening for malignant [facility] Test 00:00:00 neoplasm of lung Medical Gerardo ter (procedure) [code = 903826779] Future Scheduled 2007 SHINGLES VACCINES ([address] [facility] Test 00:00:00 2) [code = [facility] VACCINES (1 of 2)] Future Scheduled 1992 Lipid panel (procedure) [facility] Test 00:00:00 [code = 53210440] Medical Ce nter Future Scheduled 1992 Lipid panel (procedure) [facility] Test 00:00:00 [code = 86809202] Medical Ce nter Future Scheduled 1976 DTAP/TDAP/TD VACCINES [facility] 00:00:00 (1 - Tdap) [code = Medical C enter DTAP/TDAP/TD VACCINES (1 - Tdap)] Future Scheduled 1976 DTAP/TDAP/TD VACCINES [facility] 00:00:00 (1 - Tdap) [code = Medical C enter DTAP/TDAP/TD VACCINES (1 - Tdap)] Future Scheduled 1975 HEPATITIS C SCREENING [facility] 00:00:00 [code = HEPATITIS C Medical Center SCREENING] Future Scheduled 1975 HEPATITIS C SCRE[facility]ING [facility] 00:00:00 [code = HEPATITIS C Medical Center SCREENING] Future Scheduled [address] [facility] Test 00:00:00 Counseling and Medical Cente r Screening (12+) [code = Tobacco Cessation Counseling and Screening (12+)] Future Scheduled [address] [facility] Test 00:00:00 Counseling and Medical Cente r Screening (12+) [code = Tobacco Cessation Counseling and Screening (12+)] Future Scheduled 1957 COVID-19 VACCINE (#1) [facility] 00:00:00 [code = COVID-[address] VACCINE (#1)] Future Scheduled 1955 COVID-19 VACCINE (#1) [facility] 00:00:00 [code = COVID-[address] VACCINE (#1)] Future Scheduled 1957 CT Colonography (combo) [facility] Test 00:00:00 [code = CT Colonography [facility] Center (combo)] Future Scheduled 1957 Screening for malignant [facility] Test 00:00:00 neoplasm of colon Medical Ce nter (procedure) [code = 002497789] Future Scheduled 1957 Screening for malignant [facility] Test 00:00:00 neoplasm of colon Medical Ce nter (procedure) [code = 703546502] Future Scheduled 1955 Sigmoidoscopy [code = [facility] 00:00:00 Sigmoidoscopy] Medical Cente r Future Scheduled 1957 CT Colonography (combo) [facility] Test 00:00:00 [code = CT Colonography Medi [facility] Center (combo)] Future Scheduled 1957 Screening for malignant [facility] Test 00:00:00 neoplasm of colon Medical Ce nter (procedure) [code = 034955319] Future Scheduled 1957 Screening for malignant [facility] Test 00:00:00 neoplasm of colon Medical Ce nter (procedure) [code = 435549966] Future Scheduled 1955 Sigmoidoscopy [code = [facility] 00:00:00 Sigmoidoscopy] Medical Cente r Encounters Start End Encounter Admission Attending Care Care Encounter Source Date/Time Date/Time Type Type Clinicians Facility Department ID 2022-12-19 2022-12-28 Inpatient ER [facility] [id number] [facility] 03:40:00 12:53:00 [facility] 2022-12-19 2022-12-28 [facility] Wesley Mendoza [facility] [id number] 03:40:00 12:53:00 Encounter Stacey Oneil [facility] 2022-12-26 2022-12-26 Orders [facility] [id number] 00:00:00 00:00:00 [facility] 2022-12-26 2022-12-26 Orders [facility] [id number] 00:00:00 00:00:00 [facility] 2022-12-25 2022-12-25 Anesthesia Latoya [facility] [id number] 13:28:00 14:53:00 Event [facility] 2022-12-25 2022-12-25 Anesthesia Latoya [facility] [id number] 13:28:00 14:53:00 Event [facility] 2022-12-25 2022-12-25 Surgery Sheikh [facility] [id number] 13:00:00 14:00:00 [facility] 2022-12-25 2022-12-25 Surgery Sheikh [facility] [id number] 13:00:00 14:00:00 [facility] 2022-12-252022-12-25 Outpatient SAMANTHA MADSEN [facility] [id number] [facility] 08:24:33 08:24:33 KEO bee of Medicin e 2022-12-19 2022-12-19 Travel [facility] [id number] [facility] 00:[facility]00 00:00:00 [facility] 2022-12-19 2022-12-19 Travel [facility] [id number] [facility] 00:[facility] 00:00:00 [facility] Results Test Description Test Time Test Comments Results Result Comments Source Tissue Exam 2022-12-28 13:49:30 Test Item Value Reference Range Interpretation Comme nts Case Report (test code = 104) Surgical Pathology Report Case: [id number] Authorizing Provider: Keo Madsen MD Collected: 12/25/2022 02:10 PM Ordering Location: [address] Received: 12/25/2022 04:33 PM Service Pathologist: Triston Armstrong MD Specimens: A) - Polyp, Colon - Transverse, polyp via hot snare B) - Polyp, Colon - Sigmoid, polyp via hot snare C) - Rectal, polyp via hot snare DIAGNOSIS (test code = 3220) b4xusTZjMJMhx2cdIFGdoNDvFtCkZjTzApSlUb p fjPTtYStszePaYTsuuNdrLZNfAGWbMX7qxIfjkH b2sVfcDITgflQ3tUAgPKwjr8apFPH5h7keqswhY ZNmRIfdFc1jpVKoyUleJnOiQISdUDy3iO15VBVb tR2tdIBvPXg5CIXaoDUpgbAbUpHmUXCjwPGnbMD 8LEKdLA9ffbqeIVlmLHlrWDUhtzE9XWNsxIApM0 DpREBkTB8ijjwxLGH5JNivKHKgYST8XfAcAEIau 2Fxtkx6LiAcnLTyBXmxiLGprznjfxBoXPCxNJBT YA5HLJOODrZSZ6IHCrKFHPVNP6jZYKJCSN4ZLBr fhMMkOZNlMiGdUDKBSDqOGkSBLEHNG32XSFAyxn piMXCwEo4qZ06DZ53cJZEDG27CLEWmVSKPPNtNS YVLG70ZRgjtSICknNTiKT7INLDKEZQAAXQQYZ7R UUCsgVOdHHJoicUOTqRELDISDA4iCZJEDPqHTIX RY74DGdsvHVFcaMKhLH4QTNXWIA4EPYlAU0YOVD TEBH0RUSBykMYunEkxsyXbDYxdq4XbKWcfROBdH F0hjYpbCVGnJN9wCAWnT0bkmC9wqcn9RhQgRTKy RgX6ZIPlgoA2Mjf1USNfZJxfk4vch7MoEXStLRm 4sDwwDwNsCXHhf5iatyGoQkOqZJBwVXQtMLHpcZ VwX694z0pwa0hmofLauNB1DCPxPKE8XZfdrjAjb gY6OXhicVEgCuX2PDgsbnGwHYfrriYhuhIdQio8 UDAdF143MYZ6pUdsk3upZRR4RCVoIWYjNuEuQh2 ieWMjD745BYOqHEFEZIHxqPq6ZSPqchKotcQvgX UQl091P948v2sjQXGofrCteTfCgnasj9vaN204J TIvoEQwzvBbQuYrPRTecAJelLS5FSMdSQ7bkdbq IJekVUhfQSVlcrX5EDNsgXQqF3QtZBUoQV2aehn gPWD4TRkhNYGjGDB9FkXlTPSmo6Tgetx5ViIscr 3fxp38RAR7t3JciWkaCZP2CIP8FeRrHr4giQShA MOtTB9qOiYpkODlYVZgsp06zAxlAPifBHM6FKNy sjJls8Ubg3nnAoOpehMsO8xmP7TxCLLxPFPfNTZ jTuAwuzCkm0Rid2SrgWCoxLv3q5vwFWVzJRSvwP pfq8iiXHN5WSOjfWEfR9mkoI1qBZCcKV2nxkxjs 4wbEAtpRXiyWNAwcRL2zeI9XJPbmTHmK2WbbX7h EHXvKTamCXKgugc6UwLsLu1gtTKfpHxgZLdkZtg wYWdlXHBnbmNvbnRccGduZGVjXHBsYWluXHBsYW luXGYwXGZzMjRccWxcbGFuZzEwMzNcaGljaFxmM BvyHvNeQDJvCVelI0mdBmOfMwEtKqt7FQNnbPDj TVSuVnp6DZSxrFYrSZLJnUwnxX0sWMChnQgmeG8 mvSA8PEMshaXkoCATpL5iQZFRjG5uTuH5JVMgFn o1XFD3DuPyjGYrnK1= COMMENT (test code = 3356) w8ocqKGsWOIfwRFuBPUtBMrkonZjVQQacHBxM9Y snpcoSZqaPP7hBP4tdYiawEEohONaBJLgNoPsb5 fzy199lYLej3xoPPFSnjjgpBu8pVnwA29aj1R9X pxtC34vgHYqJQR9BECcJVHdvTZdWLIdYMX2RMAn gTOgU6ksTSJeNQ7abmgzZSifGBksNOBalIW6JWL eoPEgX2NuMUVjBFezKHBxksb0CoTtDm7xeVKekX gfOLszVSBjLUTvUVstNJDqIxIxQH1xu6Tez9J4U DAqhV1stRH9MQEencM1sEC3XYHlLRwdVFO6 CPT Code(s) (test code = 2522) a9wosZFvKTSmxVTbLILvETffhfLsFQNvjZSh Z3B drpykGSqvPR7xKA2hjXohxRFqoCKnBLCzIsFlp1 bjd299dZMfh4sbXLKOmhkimUe1jVzqP17bi6C4I jflT10uwMYzBBM1HTEoVIIpvIDnLDNoNCY2IJEr vVNvN3wgCLBjXA1silufGKzpJNfvKLVdwNT9ERZ bbATpD7YhWXKnFGinFKOraov0YxOhWo9ijSKisB ihIVotLHHuAKQfXOwlSTKlMfOmFHbyZAJ3P9zuL XJ9 GROSS DESCRIPTION (test code = b3yqrJDjWZUwnJFWZNUmKILlWF5fnHivhNp4 cGd [id number]) qOKCjxqK2rSGqVBjub5xxRVW2u4rrguKTDxgjWQ VtHQ4bMIkaIPJwSS0zJfMyOBOuDhWmHRKflUNpa sSbRhUsQJPoeIUupAH9NONlTH0lithrXVtpNJtt BRXxkgI6QBAglRUsS9LxEUZaHR8aqbxmWHZ3CDE NFnavSk9bgJSjhOvyGuXtKzNzTHMsGGVoAHAqqW tzXMDcROn2dJ4SWbdtL43dq4I2Ppb4LCRnWAPsN 0WgQS1pOZOyaDUvQ86LZlmxFCU4TTEUQfqdSsre mKzpw5FdyVHfTCPuZBmgrEHmQJScFWJpKQcsCyN JNlPvCnW4Afh2AJZ4PyT5CLc9EUJQKQIgQJA4XG atAoY3GPp9HASrTE4iCWzcmKPwKHtcVdcsFWlgA 389MCzfQHTiX3GaY9EzONliVsJiHUfnTQIiALTn XVjkDTLdE7ECXWXrWNA6Wef2PIZiXHz1LPcpE5C KVPXhEZF7MDR4AyIaEhS0PBt7KXLUYy0vYoT0PL U2MAK0LUP7TMDbYSputIWdTWtqm5LrEbGbNVDwE KfboqD2XBBxjcTuLQrkgRjusB2eXzHbWdUTTkGR o5z7hYzcS35fh87nMWWDgqPyz1ObdzFoOJEttgE EIlunZHGqCJ7SZSBkRNagXICsEpOkvHJjZ9weQB CzQ59uf9SEt9WdZQ7EKVz4glVgmnqxyA7jGHMgh uBbHXopS7WyHEXpAvZcCdIhSLo8HWEcgO2lEd9i mZPvoI1foFPaDYrlFDQ5nKGcELTjsRwsjwHcrgB fUA3mFGVcRZDcC3SdDXFhL95eYJIboS1jKRSkYG 9mHVViy1a2vAflI23fe22ykEfiETHgFNi5UvUaJ R8pmeWax0OzTbhfnGU7TzJrt16ppQI9tsUqHeNt BKZaekCxb7I9KUOvl4K9RGQxldRekNOpdNWdVIV ziHIahbverDVccZ8sKD3jHTOyZJgyEUmoGVM7KK B2YAGkmTUtz5qmilygd0gfG2rpPDDfJTR4Vm7gz HYmDNJojjK3p0NwTKoaSJVkThpeAQKcCIllbWTv JW2BNAKsZjOyWAEuE6vzUMYfDW6LJCNtICzxuwM cPP8SPTCxiLTOSNW7ON3cVHchBWDwR8ShP4Ejyg I1UTKwpgGBOugfUftwvNpin9XcdDPzCTUsHGjmp ZYtNGCrTLIhPXglLeNDNfQmYmG2Lrk4NZC2QeG8 LCi3OLLDQyMwTqLfIzEeMMc8HmJxSVa4IOq0TKe WDgO5Bxm4Nlq2GmScQAG6NgGxFJp0KVKmKSujbu YbCDkhJqebLIvuY90ijONhWMhtXuGkLAfefHgsI XYaRHL9RA1BNb7cAZ1ugCAsOZOjhG2aDC2cQ4bm dV8iJYjeUDRdZPavwPJkRXZRJanuiWFhsoxflVX lfAlemwBmVHFwvMLVSWL4QZ8iWFSOOlazcMAyNP LceRldHUbfeC4yBDLzDcZcLUKiE4tsCmArUJ6LL AVgLGvozmYzRBIkH3BhrbRrXBehMBDovc1qqUba YRboWrZxMVShf9v0rYPvPIXzXU53C9DawgImLRn gbWVkaWNhbCByZWNvcmQgbnVtYmVyIGFuZCIgcG 2hvRAfTMHvrF2eMVX9UnXdRBweTVOfuDupz7myG UAxi0EjcMLmW89ta2cbkCFck6OfDaK8VR9oi99r dMC0nISbgPOvSxUhQ65cegGgaIDrj6DmdD3tFUP qIZDhUMRkDMPeeAMspwXqwxHqmNQopADtdH6jua Qti28kZUuzmBYbHUKhGSQrlSJhsXP0JFOavD7rg B53nbSdaaQLZW7iuBHrIX7KADBmWQwssScfNMEt FLMGHspwKPYxXGocf6DcRJrfnEnuZOSzCqPdHTi rF4NoYJUgHiXqQPcvIZSmT43ws3VUl9Kph6voeK gps8ZpeTNlHH9ndHSyCI7Eu5axWHMhsIExSFT0F Zlxl9hyJGohMVM3OMMqZuTrZVQySS9GGdMsROb6 Avk9YKEvFDl0RXd0CF7OOpBkPEMmBPBgCaS9NaY uXXf7HAstQQ8IGBadXXxzOeP6TEC7QGfeMqEhHZ AsVpWiBRVfBYAdDFwduJYxNM5tlTnbGREqHCXpC FL4GJDmgEIDj7LtSPSpRYaVWvUWEXB5URkysHCo ZB9UDXZigkPtMPtdeWycnF6wrZFgF9jfKmVmWgt lcGljTmVzdERvYzEgDQpcbHRycGFyXGxpbjBccm usGUsyYmYrGBDwsFCNl6BrMGMZGdeahtLlGBBfo cLJSzyrIyQaGCDgF5hjKjIjLTmFYNYwyIGyJYFb zjJrv0PaUQhfqdPfIINbhYWaYQtepJthyGH2ySV muFBvBS7mSRRqIXCtL3BfWWJjQ76aFEHhcW9uMC SdEY8dRWTuDRD6XRmowY1biGFyFkunqNY6ZjTkc 63rfOK4dcZeKiWqCCBmuwSoCUJcnNvhFEVtkQjv OD9jDDC8dsdyRhTkGfDjcLHzPbkafGOhJilzO76 gQXLbYSFjkBm2fHRvJFF9HZ5th42myOY4aIAosF FpYpBfH84vvaHhPkWrLNuqTPOjiNssTFhdQPbhw 0NcCIxnZEZfPUNbXVW1zJCxg0WnN4xzJU5koDBd ZR85nTSjcWmaz7JkmQv3xPCmTOFcTZCwwCcdn9K 6KMMwiqHWDjfrXFRvJTxMAOY0uP0gWPQwMWR5BR IltiCAZwOjJwCLsZYljDSbQTKyIXnpJU57c2dlJ RVtCCaODrvlDCBep8k0eWafaS8yYHNhP9JoCF2p EUCihgkmjZZsMHU2hC9rHWBmSFXbvjOJDupvEHB qVLwRgY1tCJYnTsgvusbjLRTEOYdXB5WDODurPI TaCYhhH0NrDOQqdXSgGW9KRSAcfqFUWpcyPIUhA ZXyeWZHm3FcZZWKAhsfXfCgLcBiWsJUJuzpaHta ViWmvJHmGnQ4BUUecJElPEB1BG2tcIhmLFYuI7P nS1BvcnJ2DUNjszMMKlohBNOzQF0MhT== MICROSCOPIC DESCRIPTION (test code = t8sysWUdXSXesYChRDNrENtdupExNJ BxfCTtX8I 3371) apovoZWscDK8kNO2vzRueeSOenAFuYWXjIdOsj3 aap223zMMjh9umYYBDbjtayHa2mLwoT38wi2Q5F zufG19quGNcWNJ1VHEyAKNyhIPmZNGhHKW5LQVn uAPiS0srWURrYW3habufCRxzZZgfLUSzxYQ7XKP gxGMqS6WwQBYkUBztXAMoelr6CiYeJu4bcRFatZ yuCFpqOWRaRXSoGRrbZTRvAwPqYEhcxb9vY66af WMgYXNzZXNzbWVudCBzdWJzdGFudGlhdGVzIHRo XSTpEr18HSTyxBScde8xcIUvMDklFUO9 Gross assessment was performed at (test [facility] enter, code = 2777) Department of Pathology, [address] [place] [address], Technical component was performed at [facility] er, (test code = 2778) Department of Pathology, [address] [place] [address], Professional component was performed at [facility] enter, (test code = 2779) Department of Pathology, [address] [place] [address], [facility] [id number] 13:49:30Surgical Pathology Report Case: [id number] Authorizing Provider: Keo Madsen MD Collected: 12/25/2022 02:10 PM Ordering Location: [address] Received: 12/25/2022 04:33 PM Service Pathologist: Triston Armstrong MD Specimens: A) - Polyp, Colon - Transverse, polyp via hot snare B) - Polyp,Colon - Sigmoid, polyp via hot snare C) - Rectal, polyp via hot snare A. COLON, TRANSVERSE, POLYPECTOMY: - TUBULAR ADENOMAB. COLON, SIGMOID, POLYPECTOMY: -TUBULAR ADENOMAC. RECTUM, POLYPECTOMY: -TUBULOVILLOUS ADENOMA Signing Pathologist Direct Phone Line: [phone] signed by Triston Armstrong MD on 12/28/2022 at 1:49 PMEndoscopy report was reviewed. [id number]. Polyp, Colon - TransverseReceived in formalin labeled with patient's name, medical record number and "polyp, colon- transverse biopsy" consists of 2 loo soft tissue fragment measuring up to 1.3 cm in greatest dimension, which are submitted in toto in A1.B. Polyp, Colon - SigmoidReceived in formalin labeled with patient's name, medical record number and" polyp, colon-sigmoid biopsy" consists of 3 loo soft tissue fragment measuring upto 0.9 cm in greatest dimension, which are submitted in toto in B1.C. RectalReceived in formalin labeled with patient name, medical record number and "rectal polyp biopsy" consists of a loo sessile polyp measuring 1.3 x 0.9 x 0.9 cm, and multiple loo soft tissue fragments. The polyp is inked green andthe specimen is entirely submitted as follows:Section code:C1: Smaller fragmentsC2: 1 polyp, inked green, serial sectioned LAYLA Bowling (ASCP) Microscopic assessment substantiates the above diagnosis. [facility], Department of Pathology, [address] [place] [address], [facility], [address] [place] [address], [facility], [address] [place] [address], [place] [address], BJODE METABOLIC [id number] 04:54:17 Test Item Value Reference Range Interpretation Comments SODIUM (BEAKER) 139 meq/L 136-145 (test code = 381) POTASSIUM 4.7 meq/L 3.5-5.1 (BEAKER) (test code = 379) CHLORIDE (BEAKER) 97 meq/L 98-107 L (test code = 382) CO2 (BEAKER) 35 meq/L 22-29 H (test code = 355) BLOOD UREA 13 mg/dL 7-21 NITROGEN (BEAKER) (test code = 354) CREATININE 0.72 mg/dL 0.57-1.25 (BEAKER) (test code = 358) GLUCOSE RANDOM 98 mg/dL 70-105 (BEAKER) (test code = 652) CALCIUM (BEAKER) 9.2 mg/dL 8.4-10.2 (test code = 697) EGFR (BEAKER) 101 Interpretatio n of eGFR (test code = mL/min/1.73 values Stage De scription 1092) sq m Result G1 Ally l or high >=90 G2 Mildly decreased 60-89 G3a Mildl y to moderately 45-5 9 G3b Moderately to s everely 30-44 G4 Severl y decreased 15-29 G5 Kidney failure <15Reported eGF R is based on the CKD-EPI 2020 equation that d oes not use a race coefficientEsti mated GFR is not as accur ate as Creatinine Mariann bosch in predicting glom erular filtration rate . Estimated GFR is not appl icable for dialysis patien ts Bookkeeping Assistant ID - [id number] 04:54:17 Test Item Value Reference Range Interpretation Comments MAGNESIUM (BEAKER) (test code = 1.8 mg/dL 1.6-2.6 627) Bookkeeping Assistant ID - MARCOCBC W/PLT COUNT & AUTO [id number] 04:36:31 Test Item Value Reference Range Interpretation Comments WHITE BLOOD CELL COUNT (BEAKER) 12.6 K/ L 3.5-10.5 H (test code = 775) RED BLOOD CELL COUNT (BEAKER) 3.80 M/ L 4.63-6.08 L (test code = 761) HEMOGLOBIN (BEAKER) (test code = 11.4 GM/DL 13.7-17.5 L 410) HEMATOCRIT (BEAKER) (test code = 36.3 % 40.1-51.0 L 411) MEAN CORPUSCULAR VOLUME (BEAKER) 96 fL 79-92 H (test code = 753) MEAN CORPUSCULAR HEMOGLOBIN 30.0 pg 25.7-32.2 (BEAKER) (test code = 751) MEAN CORPUSCULAR HEMOGLOBIN CONC 31.4 GM/DL 32.3-36.5 L (BEAKER) (test code = 752) RED CELL DISTRIBUTION WIDTH 13.7 % 11.6-14.4 (BEAKER) (test code = 412) PLATELET COUNT (BEAKER) (test 229 K/CU MM 150-450 code = 756) MEAN PLATELET VOLUME (BEAKER) 9.2 fL 9.4-12.4 L (test code = 754) NUCLEATED RED BLOOD CELLS 0 /100 WBC 0-0 (BEAKER) (test code = 413) NEUTROPHILS RELATIVE PERCENT 74 % (BEAKER) (test code = 429) LYMPHOCYTES RELATIVE PERCENT 13 % (BEAKER) (test code = 430) MONOCYTES RELATIVE PERCENT 10 % (BEAKER) (test code = 431) EOSINOPHILS RELATIVE PERCENT 2 % (BEAKER) (test code = 432) BASOPHILS RELATIVE PERCENT 0 % (BEAKER) (test code = 437) NEUTROPHILS ABSOLUTE COUNT 9.35 K/ L 1.78-5.38 H (BEAKER) (test code = 670) LYMPHOCYTES ABSOLUTE COUNT 1.65 K/ L 1.32-3.57 (BEAKER) (test code = 414) MONOCYTES ABSOLUTE COUNT (BEAKER) 1.25 K/ L 0.30-0.82 H (test code = 415) EOSINOPHILS ABSOLUTE COUNT 0.19 K/ L 0.04-0.54 (BEAKER) (test code = 416) BASOPHILS ABSOLUTE COUNT (BEAKER) 0.05 K/ L 0.01-0.08 (test code = 417) IMMATURE GRANULOCYTES-RELATIVE 1.00 % 0.00-1.00 PERCENT (BEAKER) (test code = 2801) TSH/FREE T4 IF [id number] 01:46:24 Test Item Value Reference Range Interpretation Comments THYROID STIMULATING HORMONE 1.450 uIU/mL 0.350-4.940 (BEAKER) (test code = 772) Bookkeeping Assistant ID - BSHIGH SENSITIVITY TROPONIN [id number] 01:25:31 Test Item Value Reference Range Interpretation Comments HIGH SENSITIVITY TROPONIN I (test 62 pg/ml <=35 H code = 0996575) Bookkeeping Assistant ID - BSThe INSTALLER [employer] STAT High Sensitivity Troponin-I results should be used in conjunctionwith other diagnostic information such as ECG, clinical observations and information, and patient symptoms to aid in the diagnosis of SC.BASIC METABOLIC [id number] 01:20:36 Test Item Value Reference Range Interpretation Comments SODIUM (BEAKER) 137 meq/L 136-145 (test code = 381) POTASSIUM 4.4 meq/L 3.5-5.1 (BEAKER) (test code = 379) CHLORIDE (BEAKER) 96 meq/L 98-107 L (test code = 382) CO2 (BEAKER) 37 meq/L 22-29 H (test code = 355) BLOOD UREA 14 mg/dL 7-21 NITROGEN (BEAKER) (test code = 354) CREATININE 0.86 mg/dL 0.57-1.25 (BEAKER) (test code = 358) GLUCOSE RANDOM 102 mg/dL 70-105 (BEAKER) (test code = 652) CALCIUM (BEAKER) 8.7 mg/dL 8.4-10.2 (test code = 697) EGFR (BEAKER) 97 Interpretatio n of eGFR (test code = mL/min/1.73 values Stage De scription 1092) sq m Result G1 Ally l or high >=90 G2 Mildly decreased 60-89 G3a Mildl y to moderately 45-5 9 G3b Moderately to s everely 30-44 G4 Severl y decreased 15-29 G5 Kidney failure <15Reported eGF R is based on the CKD-EPI 2021 equation that d oes not use a race coefficientEsti mated GFR is not as accur ate as Creatinine Mariann bosch in predicting glom erular filtration rate . Estimated GFR is not appl icable for dialysis patien ts Bookkeeping Assistant ID - [id number] 01:20:36 Test Item Value Reference Range Interpretation Comments MAGNESIUM (BEAKER) (test code = 1.9 mg/dL 1.6-2.6 627) Bookkeeping Assistant ID - BSCBC W/PLT COUNT & AUTO [id number] 00:30:47 Test Item Value Reference Range Interpretation Comments WHITE BLOOD CELL COUNT (BEAKER) 13.0 K/ L 3.5-10.5 H (test code = 775) RED BLOOD CELL COUNT (BEAKER) 4.44 M/ L 4.63-6.08 L (test code = 761) HEMOGLOBIN (BEAKER) (test code = 12.9 GM/DL 13.7-17.5 L 410) HEMATOCRIT (BEAKER) (test code = 41.4 % 40.1-51.0 411) MEAN CORPUSCULAR VOLUME (BEAKER) 93 fL 79-92 H (test code = 753) MEAN CORPUSCULAR HEMOGLOBIN 29.1 pg 25.7-32.2 (BEAKER) (test code = 751) MEAN CORPUSCULAR HEMOGLOBIN CONC 31.2 GM/DL 32.3-36.5 L (BEAKER) (test code = 752) RED CELL DISTRIBUTION WIDTH 13.5 % 11.6-14.4 (BEAKER) (test code = 412) PLATELET COUNT (BEAKER) (test 294 K/CU MM 150-450 code = 756) MEAN PLATELET VOLUME (BEAKER) 8.8 fL 9.4-12.4 L (test code = 754) NUCLEATED RED BLOOD CELLS 0 /100 WBC 0-0 (BEAKER) (test code = 413) NEUTROPHILS RELATIVE PERCENT 67 % (BEAKER) (test code = 429) LYMPHOCYTES RELATIVE PERCENT 21 % (BEAKER) (test code = 430) MONOCYTES RELATIVE PERCENT 9 % (BEAKER) (test code = 431) EOSINOPHILS RELATIVE PERCENT 1 % (BEAKER) (test code = 432) BASOPHILS RELATIVE PERCENT 0 % (BEAKER) (test code = 437) NEUTROPHILS ABSOLUTE COUNT 8.74 K/ L 1.78-5.38 H (BEAKER) (test code = 670) LYMPHOCYTES ABSOLUTE COUNT 2.67 K/ L 1.32-3.57 (BEAKER) (test code = 414) MONOCYTES ABSOLUTE COUNT (BEAKER) 1.21 K/ L 0.30-0.82 H (test code = 415) EOSINOPHILS ABSOLUTE COUNT 0.17 K/ L 0.04-0.54 (BEAKER) (test code = 416) BASOPHILS ABSOLUTE COUNT (BEAKER) 0.05 K/ L 0.01-0.08 (test code = 417) IMMATURE GRANULOCYTES-RELATIVE 1.20 % 0.00-1.00 H PERCENT (BEAKER) (test code = 2801) HIGH SENSITIVITY TROPONIN [id number] 14:26:01 Test Item Value Reference Range Interpretation Comments HIGH SENSITIVITY TROPONIN I (test 84 pg/ml <=35 H code = 8041271) Bookkeeping Assistant ID - BSThe INSTALLER [employer] STAT High Sensitivity Troponin-I results should be used in conjunctionwith other diagnostic information such as ECG, clinical observations and information, and patient symptoms to aid in the diagnosis of SC.BASIC METABOLIC [id number] 03:40:20 Test Item Value Reference Range Interpretation Comments SODIUM (BEAKER) 139 meq/L 136-145 (test code = 381) POTASSIUM 4.4 meq/L 3.5-5.1 (BEAKER) (test code = 379) CHLORIDE (BEAKER) 98 meq/L 98-107 (test code = 382) CO2 (BEAKER) 39 meq/L 22-29 H (test code = 355) BLOOD UREA 11 mg/dL 7-21 NITROGEN (BEAKER) (test code = 354) CREATININE 0.71 mg/dL 0.57-1.25 (BEAKER) (test code = 358) GLUCOSE RANDOM 111 mg/dL 70-105 H (BEAKER) (test code = 652) CALCIUM (BEAKER) 8.9 mg/dL 8.4-10.2 (test code = 697) EGFR (BEAKER) 102 Interpretatio n of eGFR (test code = mL/min/1.73 values Stage De scription 1092) sq m Result G1 Ally l or high >=90 G2 Mildly decreased 60-89 G3a Mildl y to moderately 45-5 9 G3b Moderately to s everely 30-44 G4 Severl y decreased 15-29 G5 Kidney failure <15Reported eGF R is based on the CKD-EPI 2020 equation that d oes not use a race coefficientEsti mated GFR is not as accur ate as Creatinine Mariann bosch in predicting glom erular filtration rate . Estimated GFR is not appl icable for dialysis patien ts Bookkeeping Assistant ID - [id number] 03:40:20 Test Item Value Reference Range Interpretation Comments MAGNESIUM (BEAKER) (test code = 2.0 mg/dL 1.6-2.6 627) Bookkeeping Assistant ID - BSCBC W/PLT COUNT & AUTO [id number] 02:36:41 Test Item Value Reference Range Interpretation Comments WHITE BLOOD CELL COUNT (BEAKER) 10.6 K/ L 3.5-10.5 H (test code = 775) RED BLOOD CELL COUNT (BEAKER) 3.83 M/ L 4.63-6.08 L (test code = 761) HEMOGLOBIN (BEAKER) (test code = 11.5 GM/DL 13.7-17.5 L 410) HEMATOCRIT (BEAKER) (test code = 36.0 % 40.1-51.0 L 411) MEAN CORPUSCULAR VOLUME (BEAKER) 94 fL 79-92 H (test code = 753) MEAN CORPUSCULAR HEMOGLOBIN 30.0 pg 25.7-32.2 (BEAKER) (test code = 751) MEAN CORPUSCULAR HEMOGLOBIN CONC 31.9 GM/DL 32.3-36.5 L (BEAKER) (test code = 752) RED CELL DISTRIBUTION WIDTH 13.3 % 11.6-14.4 (BEAKER) (test code = 412) PLATELET COUNT (BEAKER) (test 292 K/CU MM 150-450 code = 756) MEAN PLATELET VOLUME (BEAKER) 8.5 fL 9.4-12.4 L (test code = 754) NUCLEATED RED BLOOD CELLS 0 /100 WBC 0-0 (BEAKER) (test code = 413) NEUTROPHILS RELATIVE PERCENT 71 % (BEAKER) (test code = 429) LYMPHOCYTES RELATIVE PERCENT 18 % (BEAKER) (test code = 430) MONOCYTES RELATIVE PERCENT 9 % (BEAKER) (test code = 431) EOSINOPHILS RELATIVE PERCENT 1 % (BEAKER) (test code = 432) BASOPHILS RELATIVE PERCENT 0 % (BEAKER) (test code = 437) NEUTROPHILS ABSOLUTE COUNT 7.47 K/ L 1.78-5.38 H (BEAKER) (test code = 670) LYMPHOCYTES ABSOLUTE COUNT 1.91 K/ L 1.32-3.57 (BEAKER) (test code = 414) MONOCYTES ABSOLUTE COUNT (BEAKER) 0.94 K/ L 0.30-0.82 H (test code = 415) EOSINOPHILS ABSOLUTE COUNT 0.10 K/ L 0.04-0.54 (BEAKER) (test code = 416) BASOPHILS ABSOLUTE COUNT (BEAKER) 0.03 K/ L 0.01-0.08 (test code = 417) IMMATURE GRANULOCYTES-RELATIVE 1.20 % 0.00-1.00 H PERCENT (BEAKER) (test code = 2801) [id number] 05:25:43 Test Item Value Reference Range Interpretation Comments MAGNESIUM (BEAKER) (test code = 2.1 mg/dL 1.6-2.6 627) Bookkeeping Assistant ID - MMBASIC METABOLIC [id number] 05:25:42 Test Item Value Reference Range Interpretation Comments SODIUM (BEAKER) 137 meq/L 136-145 (test code = 381) POTASSIUM 4.4 meq/L 3.5-5.1 (BEAKER) (test code = 379) CHLORIDE (BEAKER) 96 meq/L 98-107 L (test code = 382) CO2 (BEAKER) 33 meq/L 22-29 H (test code = 355) BLOOD UREA 8 mg/dL 7-21 NITROGEN (BEAKER) (test code = 354) CREATININE 0.73 mg/dL 0.57-1.25 (BEAKER) (test code = 358) GLUCOSE RANDOM 78 mg/dL 70-105 (BEAKER) (test code = 652) CALCIUM (BEAKER) 9.9 mg/dL 8.4-10.2 (test code = 697) EGFR (BEAKER) 101 Interpretatio n of eGFR (test code = mL/min/1.73 values Stage De scription 1092) sq m Result G1 Ally l or high >=90 G2 Mildly decreased 60-89 G3a Mildl y to moderately 45-5 9 G3b Moderately to s everely 30-44 G4 Severl y decreased 15-29 G5 Kidney failure <15Reported eGF R is based on the CKD-EPI 2021 equation that d oes not use a race coefficientEsti mated GFR is not as accur ate as Creatinine Mariann bosch in predicting glom erular filtration rate . Estimated GFR is not appl icable for dialysis patien ts Bookkeeping Assistant ID - MMCBC W/PLT COUNT & AUTO [id number] 05:11:30 Test Item Value Reference Range Interpretation Comments WHITE BLOOD CELL COUNT (BEAKER) 11.2 K/ L 3.5-10.5 H (test code = 775) RED BLOOD CELL COUNT (BEAKER) 4.64 M/ L 4.63-6.08 (test code = 761) HEMOGLOBIN (BEAKER) (test code = 13.5 GM/DL 13.7-17.5 L 410) HEMATOCRIT (BEAKER) (test code = 43.2 % 40.1-51.0 411) MEAN CORPUSCULAR VOLUME (BEAKER) 93 fL 79-92 H (test code = 753) MEAN CORPUSCULAR HEMOGLOBIN 29.1 pg 25.7-32.2 (BEAKER) (test code = 751) MEAN CORPUSCULAR HEMOGLOBIN CONC 31.3 GM/DL 32.3-36.5 L (BEAKER) (test code = 752) RED CELL DISTRIBUTION WIDTH 13.1 % 11.6-14.4 (BEAKER) (test code = 412) PLATELET COUNT (BEAKER) (test 415 K/CU MM 150-450 code = 756) MEAN PLATELET VOLUME (BEAKER) 9.0 fL 9.4-12.4 L (test code = 754) NUCLEATED RED BLOOD CELLS 0 /100 WBC 0-0 (BEAKER) (test code = 413) NEUTROPHILS RELATIVE PERCENT 63 % (BEAKER) (test code = 429) LYMPHOCYTES RELATIVE PERCENT 26 % (BEAKER) (test code = 430) MONOCYTES RELATIVE PERCENT 8 % (BEAKER) (test code = 431) EOSINOPHILS RELATIVE PERCENT 1 % (BEAKER) (test code = 432) BASOPHILS RELATIVE PERCENT 0 % (BEAKER) (test code = 437) NEUTROPHILS ABSOLUTE COUNT 7.09 K/ L 1.78-5.38 H (BEAKER) (test code = 670) LYMPHOCYTES ABSOLUTE COUNT 2.89 K/ L 1.32-3.57 (BEAKER) (test code = 414) MONOCYTES ABSOLUTE COUNT (BEAKER) 0.91 K/ L 0.30-0.82 H (test code = 415) EOSINOPHILS ABSOLUTE COUNT 0.12 K/ L 0.04-0.54 (BEAKER) (test code = 416) BASOPHILS ABSOLUTE COUNT (BEAKER) 0.05 K/ L 0.01-0.08 (test code = 417) IMMATURE GRANULOCYTES-RELATIVE 1.60 % 0.00-1.00 H PERCENT (BEAKER) (test code = 2801) POC-Glucose [id number] 12:12:31 Test Item Value Reference Range Interpretation Comments POC-Glucose Meter (test 114 mg/dL 70-110 H : TE STED AT [facility] code = 1538) [address] [facility], [address]: Bookkeeping Assistant/Techni jordyn ID = [id number] for Tyree Bernal ie Lab Interpretation (test Abnormal code = 32516-5) [facility]-Glucose [id number] 12:12:31 Test Item Value Reference Range Interpretation Comments POC-Glucose Meter (test 114 mg/dL 70-110 H : TE STED AT [facility] code = 1538) [address] [facility], [address]: Bookkeeping Assistant/Techni jordyn ID = [id number] for GabeTameka lrss ie Lab Interpretation (test Abnormal code = 20083-0) [facility]-GLUCOSE [id number] 12:12:31 Test Item Value Reference Range Interpretation Comments POC-GLUCOSE METER 114 mg/dL 70-110 H : TESTED A T [facility] [address] (BEAKER) (test [facility] = [facility], 1538) [address]: Bookkeeping Assistant/Techni jordyn ID = [id number] for Jorgito Adrienne rodriguez BASIC METABOLIC [id number] 04:44:44 Test Item Value Reference Range Interpretation Comments SODIUM (BEAKER) 139 meq/L 136-145 (test code = 381) POTASSIUM 4.6 meq/L 3.5-5.1 (BEAKER) (test code = 379) CHLORIDE (BEAKER) 96 meq/L 98-107 L (test code = 382) CO2 (BEAKER) 36 meq/L 22-29 H (test code = 355) BLOOD UREA 11 mg/dL 7-21 NITROGEN (BEAKER) (test code = 354) CREATININE 0.69 mg/dL 0.57-1.25 (BEAKER) (test code = 358) GLUCOSE RANDOM 84 mg/dL 70-105 (BEAKER) (test code = 652) CALCIUM (BEAKER) 9.2 mg/dL 8.4-10.2 (test code = 697) EGFR (BEAKER) 102 Interpretatio n of eGFR (test code = mL/min/1.73 values Stage De scription 1092) sq m Result G1 Ally l or high >=90 G2 Mildly decreased 60-89 G3a Mildl y to moderately 45-5 9 G3b Moderately to s everely 30-44 G4 Severl y decreased 15-29 G5 Kidney failure <15Reported eGF R is based on the CKD-EPI 2021 equation that d oes not use a race coefficientEsti mated GFR is not as accur ate as Creatinine Mariann bosch in predicting glom erular filtration rate . Estimated GFR is not appl icable for dialysis patien ts Bookkeeping Assistant ID - [id number] 04:44:44 Test Item Value Reference Range Interpretation Comments MAGNESIUM (BEAKER) (test code = 2.1 mg/dL 1.6-2.6 627) Bookkeeping Assistant ID - [facility] W/PLT COUNT & AUTO [id number] 04:17:52 Test Item Value Reference Range Interpretation Comments WHITE BLOOD CELL COUNT (BEAKER) 11.5 K/ L 3.5-10.5 H (test code = 775) RED BLOOD CELL COUNT (BEAKER) 4.11 M/ L 4.63-6.08 L (test code = 761) HEMOGLOBIN (BEAKER) (test code = 12.3 GM/DL 13.7-17.5 L 410) HEMATOCRIT (BEAKER) (test code = 38.7 % 40.1-51.0 L 411) MEAN CORPUSCULAR VOLUME (BEAKER) 94 fL 79-92 H (test code = 753) MEAN CORPUSCULAR HEMOGLOBIN 29.9 pg 25.7-32.2 (BEAKER) (test code = 751) MEAN CORPUSCULAR HEMOGLOBIN CONC 31.8 GM/DL 32.3-36.5 L (BEAKER) (test code = 752) RED CELL DISTRIBUTION WIDTH 13.0 % 11.6-14.4 (BEAKER) (test code = 412) PLATELET COUNT (BEAKER) (test 383 K/CU MM 150-450 code = 756) MEAN PLATELET VOLUME (BEAKER) 8.8 fL 9.4-12.4 L (test code = 754) NUCLEATED RED BLOOD CELLS 0 /100 WBC 0-0 (BEAKER) (test code = 413) NEUTROPHILS RELATIVE PERCENT 65 % (BEAKER) (test code = 429) LYMPHOCYTES RELATIVE PERCENT 22 % (BEAKER) (test code = 430) MONOCYTES RELATIVE PERCENT 10 % (BEAKER) (test code = 431) EOSINOPHILS RELATIVE PERCENT 1 % (BEAKER) (test code = 432) BASOPHILS RELATIVE PERCENT 1 % (BEAKER) (test code = 437) NEUTROPHILS ABSOLUTE COUNT 7.41 K/ L 1.78-5.38 H (BEAKER) (test code = 670) LYMPHOCYTES ABSOLUTE COUNT 2.56 K/ L 1.32-3.57 (BEAKER) (test code = 414) MONOCYTES ABSOLUTE COUNT (BEAKER) 1.12 K/ L 0.30-0.82 H (test code = 415) EOSINOPHILS ABSOLUTE COUNT 0.14 K/ L 0.04-0.54 (BEAKER) (test code = 416) BASOPHILS ABSOLUTE COUNT (BEAKER) 0.06 K/ L 0.01-0.08 (test code = 417) IMMATURE GRANULOCYTES-RELATIVE 1.50 % 0.00-1.00 H PERCENT (BEAKER) (test code = 2801) U/S, [id number] 15:17:00Laterality?->LeftReason for exam:->Known left plefLabs to be Ordered:->CytologyLabs to be Ordered:- >Glucose+LDH+ProteinLabs to be Ordered:->Body Fluid Culture (w/Gram Stain, C\\T\\S)Labs to be Ordered:->Cell CountLabs to be Ordered:->Fungal Culture [facility] : 1955 Sex: MFINAL REPORT Ultrasound of the chest CLINICAL HISTORY: Evaluate pleural effusionfor thoracentesis. DISCUSSION: Sonographic evaluation of the left chest was performed to evaluate for possible thoracentesis. Only a trace amount of left-sided pleural effusion is identified. IMPRESSION:Minimal left-sided pleural effusion, insufficient for safe thoracentesis. Signed: Ede Richards MDReport Verified Date/Time: 12/23/2022 15:17:37 Reading Location: [facility] [id number] Ultrasound Reading Room BASIC METABOLIC [id number] 08:42:27 Test Item Value Reference Range Interpretation Comments SODIUM (BEAKER) 139 meq/L 136-145 (test code = 381) POTASSIUM 4.7 meq/L 3.5-5.1 Specimen slight ly (BEAKER) (test hemolyzed code = 379) CHLORIDE (BEAKER) 97 meq/L 98-107 L (test code = 382) CO2 (BEAKER) > meq/L 22-29 HH (test code = 355) BLOOD UREA 15 mg/dL 7-21 NITROGEN (BEAKER) (test code = 354) CREATININE 0.79 mg/dL 0.57-1.25 Specimen slight ly (BEAKER) (test hemolyzed code = 358) GLUCOSE RANDOM 96 mg/dL 70-105 (BEAKER) (test code = 652) CALCIUM (BEAKER) 8.6 mg/dL 8.4-10.2 (test code = 697) EGFR (BEAKER) 99 Interpretatio n of eGFR (test code = mL/min/1.73 values Stage De scription 1092) sq m Result G1 Ally l or high >=90 G2 Mildly decreased 60-89 G3a Mild ly to moderately 45-5 9 G3b Moderately to s everely 30-44 G4 Severl y decreased 15-29 G5 Kidney failure <15Reported eGF R is based on the CKD-EPI 2020 equation that d oes not use a race coefficientEsti mated GFR is not as accur ate as Creatinine Mariann bosch in predicting glom erular filtration rate . Estimated GFR is not appl icable for dialysis patien ts [id number] 08:36:30 Test Item Value Reference Range Interpretation Comments MAGNESIUM (BEAKER) 2.1 mg/dL 1.6-2.6 Specimen slightly (test code = 627) hemolyzed CBC W/PLT COUNT & AUTO [id number] 04:56:56 Test Item Value Reference Range Interpretation Comments WHITE BLOOD CELL COUNT (BEAKER) 10.9 K/ L 3.5-10.5 H (test code = 775) RED BLOOD CELL COUNT (BEAKER) 3.99 M/ L 4.63-6.08 L (test code = 761) HEMOGLOBIN (BEAKER) (test code = 11.8 GM/DL 13.7-17.5 L 410) HEMATOCRIT (BEAKER) (test code = 37.9 % 40.1-51.0 L 411) MEAN CORPUSCULAR VOLUME (BEAKER) 95 fL 79-92 H (test code = 753) MEAN CORPUSCULAR HEMOGLOBIN 29.6 pg 25.7-32.2 (BEAKER) (test code = 751) MEAN CORPUSCULAR HEMOGLOBIN CONC 31.1 GM/DL 32.3-36.5 L (BEAKER) (test code = 752) RED CELL DISTRIBUTION WIDTH 12.6 % 11.6-14.4 (BEAKER) (test code = 412) PLATELET COUNT (BEAKER) (test 369 K/CU MM 150-450 code = 756) MEAN PLATELET VOLUME (BEAKER) 8.7 fL 9.4-12.4 L (test code = 754) NUCLEATED RED BLOOD CELLS 0 /100 WBC 0-0 (BEAKER) (test code = 413) NEUTROPHILS RELATIVE PERCENT 66 % (BEAKER) (test code = 429) LYMPHOCYTES RELATIVE PERCENT 21 % (BEAKER) (test code = 430) MONOCYTES RELATIVE PERCENT 10 % (BEAKER) (test code = 431) EOSINOPHILS RELATIVE PERCENT 1 % (BEAKER) (test code = 432) BASOPHILS RELATIVE PERCENT 0 % (BEAKER) (test code = 437) NEUTROPHILS ABSOLUTE COUNT 7.28 K/ L 1.78-5.38 H (BEAKER) (test code = 670) LYMPHOCYTES ABSOLUTE COUNT 2.26 K/ L 1.32-3.57 (BEAKER) (test code = 414) MONOCYTES ABSOLUTE COUNT (BEAKER) 1.10 K/ L 0.30-0.82 H (test code = 415) EOSINOPHILS ABSOLUTE COUNT 0.11 K/ L 0.04-0.54 (BEAKER) (test code = 416) BASOPHILS ABSOLUTE COUNT (BEAKER) 0.03 K/ L 0.01-0.08 (test code = 417) IMMATURE GRANULOCYTES-RELATIVE 1.50 % 0.00-1.00 H PERCENT (ANSELMO) (test code = 2801) PET/CT, SKULL BASE TO MID-THIGH [id number] 19:39:00Reason for Exam:->To rule out mesothelioma [facility] 1955 Sex: MFINAL REPORT EXAMINATION: FDG-PET/CT, 12/19/2022 3:40 AM CLINICAL HISTORY: 67-year-old male, rule out mesothelioma. COMPARISON: No recent study available for comparison. TECHNIQUE:Radiopharmaceutical: F-18 FluorodeoxyglucoseAdministered activity: 12.0 mCiRoute of administration: Intr avenously via the left antecubital veinLocalization time: 105 minutesScan extent: Skull base to the proximal thighsAdditional imaging: NoneSerum blood glucose: 138 mg/dlCPT Code: 40663 FINDINGS:Head and Neck: No suspicious FDG avid cervical lymph nodes. Chest: No suspicious FDG avid thoracic lymph nodes. There are atelectatic changes within the lingula and right lung base. There is a small left-sidedpleural effusion associated with low-level uptake. Abdomen and Pelvis: Left kidney is absent. There is an approximately 4.2 cm photopenic hypodense lesion arising from/abutting the upper pole of the right kidney. No suspicious focal FDG avid hepatic or adrenal lesion. No suspicious FDG avid abdominal or pelvic lymph nodes. There is an approximately 1.1 cm soft tissue nodularity along the right posterolateral aspect of the rectum associated with intense uptake SUV 8.5. Musculoskeletal: Nonspecific mild diffuse uptake within the marrow with SUV 4.8 (above hepatic uptake SUV 3.7). This limits evaluation for underlying lesions if any. IMPRESSION: 1. FDG avid soft tissue nodule along the right posterolateral aspect of the rectum, recommend further assessment with a colonoscopy.2. Small left-sided exudative pleural effusion. Signed: Ted Guillen Verified Date/Time: 12/22/2022 19:39:47 POCT-GLUCOSE [id number] 14:04:02 Test Item Value Reference Range Interpretation Comments POC-GLUCOSE METER 138 mg/dL 70-110 H : TESTED A T BSC 6720 (BEAKER) (test code = KENNA Olga [facility], 1538) [address]38[address]: Bookkeeping Assistant/Techni jordyn ID = [id number] for Nyla Perla MRSA [id number] 09:59:55 Test Item Value Reference Range Interpretation Comments Result (test code = 6463-4) [facility] [id number] 09:59:55 Test Item Value Reference Range Interpretation Comments Result (test code = 6463-4) No [facility] [id number] 09:59:55 Test Item Value Reference Range Interpretation Comments CULTURE (BEAKER) (test code No MRSA isolated = 1095) [id number] 04:05:59 Test Item Value Reference Range Interpretation Comments MAGNESIUM (BEAKER) (test code = 2.1 mg/dL 1.6-2.6 627) Bookkeeping Assistant ID - OSCAR WBASIC METABOLIC [id number] 04:05:58 Test Item Value Reference Range Interpretation Comments SODIUM (BEAKER) 139 meq/L 136-145 (test code = 381) POTASSIUM 4.3 meq/L 3.5-5.1 (BEAKER) (test code = 379) CHLORIDE (BEAKER) 95 meq/L 98-107 L (test code = 382) CO2 (BEAKER) 38 meq/L 22-29 H (test code = 355) BLOOD UREA 11 mg/dL 7-21 NITROGEN (BEAKER) (test code = 354) CREATININE 0.72 mg/dL 0.57-1.25 (BEAKER) (test code = 358) GLUCOSE RANDOM 91 mg/dL 70-105 (BEAKER) (test code = 652) CALCIUM (BEAKER) 9.9 mg/dL 8.4-10.2 (test code = 697) EGFR (BEAKER) 101 Interpretatio n of eGFR (test code = mL/min/1.73 values Stage De scription 1092) sq m Result G1 Ally l or high >=90 G2 Mildly decreased 60-89 G3a Mildl y to moderately 45-5 9 G3b Moderately to s everely 30-44 G4 Severl y decreased 15-29 G5 Kidney failure <15Reported eGF R is based on the CKD-EPI 2020 equation that d oes not use a race coefficientEsti mated GFR is not as accur ate as Creatinine Mariann hiro in predicting glom erular filtration rate . Estimated GFR is not appl icable for dialysis patien ts Bookkeeping Assistant ID - OSCAR WCBC W/PLT COUNT & AUTO [id number] 03:46:41 Test Item Value Reference Range Interpretation Comments WHITE BLOOD CELL COUNT (BEAKER) 9.7 K/ L 3.5-10.5 (test code = 775) RED BLOOD CELL COUNT (BEAKER) 4.16 M/ L 4.63-6.08 L (test code = 761) HEMOGLOBIN (BEAKER) (test code = 12.2 GM/DL 13.7-17.5 L 410) HEMATOCRIT (BEAKER) (test code = 39.4 % 40.1-51.0 L 411) MEAN CORPUSCULAR VOLUME (BEAKER) 95 fL 79-92 H (test code = 753) MEAN CORPUSCULAR HEMOGLOBIN 29.3 pg 25.7-32.2 (BEAKER) (test code = 751) MEAN CORPUSCULAR HEMOGLOBIN CONC 31.0 GM/DL 32.3-36.5 L (BEAKER) (test code = 752) RED CELL DISTRIBUTION WIDTH 12.4 % 11.6-14.4 (BEAKER) (test code = 412) PLATELET COUNT (BEAKER) (test 400 K/CU MM 150-450 code = 756) MEAN PLATELET VOLUME (BEAKER) 8.8 fL 9.4-12.4 L (test code = 754) NUCLEATED RED BLOOD CELLS 0 /100 WBC 0-0 (BEAKER) (test code = 413) NEUTROPHILS RELATIVE PERCENT 72 % (BEAKER) (test code = 429) LYMPHOCYTES RELATIVE PERCENT 17 % (BEAKER) (test code = 430) MONOCYTES RELATIVE PERCENT 10 % (BEAKER) (test code = 431) EOSINOPHILS RELATIVE PERCENT 0 % (BEAKER) (test code = 432) BASOPHILS RELATIVE PERCENT 0 % (BEAKER) (test code = 437) NEUTROPHILS ABSOLUTE COUNT 7.00 K/ L 1.78-5.38 H (BEAKER) (test code = 670) LYMPHOCYTES ABSOLUTE COUNT 1.60 K/ L 1.32-3.57 (BEAKER) (test code = 414) MONOCYTES ABSOLUTE COUNT (BEAKER) 0.96 K/ L 0.30-0.82 H (test code = 415) EOSINOPHILS ABSOLUTE COUNT 0.03 K/ L 0.04-0.54 L (BEAKER) (test code = 416) BASOPHILS ABSOLUTE COUNT (BEAKER) 0.02 K/ L 0.01-0.08 (test code = 417) IMMATURE GRANULOCYTES-RELATIVE 1.10 % 0.00-1.00 H PERCENT (BEAKER) (test code = 2801) 2D Echo W/Doppler(CW/PW/Color)2022-12-21 16:31:48Ejection [facility]SLEH [facility](CW/PW/Color)2022-12-21 16:31:48Ejection FractionSLEH ECHO [facility]LAB [id number] 14:53:12 Test Item Value Reference Range Interpretation Comments PROTIME (BEAKER) (test code = 13.8 seconds 11.9-14.2 759) INR (BEAKER) (test code = 370) 1.12 <=5.90 RECOMMENDED COUMADIN/WARFARIN INR THERAPY RANGESSTANDARD DOSE: 2.0 - 3.0 Includes: PROPHYLAXIS for venous thrombosis, systemic embolization; TREATMENT for venous thrombosis and/or pulmonary embolus.HIGH RISK: Target INR is 2.5-3.5 for patients with mechanical heart valves.[id number] 13:28:03 Test Item Value Reference Range Interpretation Comments MAGNESIUM (BEAKER) (test code = 2.0 mg/dL 1.6-2.6 627) Bookkeeping Assistant ID - JSBASI METABOLIC [id number] 13:28:02 Test Item Value Reference Range Interpretation Comments SODIUM (BEAKER) 139 meq/L 136-145 (test code = 381) POTASSIUM 4.1 meq/L 3.5-5.1 (BEAKER) (test code = 379) CHLORIDE (BEAKER) 97 meq/L 98-107 L (test code = 382) CO2 (BEAKER) 36 meq/L 22-29 H (test code = 355) BLOOD UREA 13 mg/dL 7-21 NITROGEN (BEAKER) (test code = 354) CREATININE 0.79 mg/dL 0.57-1.25 (BEAKER) (test code = 358) GLUCOSE RANDOM 118 mg/dL 70-105 H (BEAKER) (test code = 652) CALCIUM (BEAKER) 9.1 mg/dL 8.4-10.2 (test code = 697) EGFR (BEAKER) 99 Interpretatio n of eGFR (test code = mL/min/1.73 values Stage De scription 1092) sq m Result G1 Ally l or high >=90 G2 Mildly decreased 60-89 G3a Mildl y to moderately 45-5 9 G3b Moderately to s everely 30-44 G4 Severl y decreased 15-29 G5 Kidney failure <15Reported eGF R is based on the CKD-EPI 2020 equation that d oes not use a race coefficientEsti mated GFR is not as accur ate as Creatinine Mariann bosch in predicting glom erular filtration rate . Estimated GFR is not appl icable for dialysis patien ts Bookkeeping Assistant ID - JSCBC W/PLT COUNT & AUTO [id number] 08:50:17 Test Item Value Reference Range Interpretation Comments WHITE BLOOD CELL COUNT (BEAKER) 9.5 K/ L 3.5-10.5 (test code = 775) RED BLOOD CELL COUNT (BEAKER) 4.00 M/ L 4.63-6.08 L (test code = 761) HEMOGLOBIN (BEAKER) (test code = 11.8 GM/DL 13.7-17.5 L 410) HEMATOCRIT (BEAKER) (test code = 38.4 % 40.1-51.0 L 411) MEAN CORPUSCULAR VOLUME (BEAKER) 96 fL 79-92 H (test code = 753) MEAN CORPUSCULAR HEMOGLOBIN 29.5 pg 25.7-32.2 (BEAKER) (test code = 751) MEAN CORPUSCULAR HEMOGLOBIN CONC 30.7 GM/DL 32.3-36.5 L (BEAKER) (test code = 752) RED CELL DISTRIBUTION WIDTH 12.6 % 11.6-14.4 (BEAKER) (test code = 412) PLATELET COUNT (BEAKER) (test 363 K/CU MM 150-450 code = 756) MEAN PLATELET VOLUME (BEAKER) 8.6 fL 9.4-12.4 L (test code = 754) NUCLEATED RED BLOOD CELLS 0 /100 WBC 0-0 (BEAKER) (test code = 413) NEUTROPHILS RELATIVE PERCENT 72 % (BEAKER) (test code = 429) LYMPHOCYTES RELATIVE PERCENT 18 % (BEAKER) (test code = 430) MONOCYTES RELATIVE PERCENT 8 % (BEAKER) (test code = 431) EOSINOPHILS RELATIVE PERCENT 1 % (BEAKER) (test code = 432) BASOPHILS RELATIVE PERCENT 0 % (BEAKER) (test code = 437) NEUTROPHILS ABSOLUTE COUNT 6.86 K/ L 1.78-5.38 H (BEAKER) (test code = 670) LYMPHOCYTES ABSOLUTE COUNT 1.75 K/ L 1.32-3.57 (BEAKER) (test code = 414) MONOCYTES ABSOLUTE COUNT (BEAKER) 0.75 K/ L 0.30-0.82 (test code = 415) EOSINOPHILS ABSOLUTE COUNT 0.05 K/ L 0.04-0.54 (BEAKER) (test code = 416) BASOPHILS ABSOLUTE COUNT (BEAKER) 0.03 K/ L 0.01-0.08 (test code = 417) IMMATURE GRANULOCYTES-RELATIVE 0.90 % 0.00-1.00 PERCENT (BEAKER) (test code = 2801) VANCOMYCIN LEVEL, [id number] 11:00:53 Test Item Value Reference Range Interpretation Comments VANCOMYCIN TROUGH (BEAKER) (test 15.2 ug/mL 10.0-20.0 code = 522) Bookkeeping Assistant ID - EDRAD, CHEST, 1 VIEW, NON [id number] 13:55:00Reason for exam:- >evaluate reported loculated pleural effusion, leftShould this be performed at the bedside?->Yes [facility] : 1955 Sex: MFINAL REPORT EXAMINATION: RAD, CHEST, 1 VIEW, NON DEPT. INDICATION: [id number] with left loculated pleural effusion. COMPARISON: None. FINDINGS:The cardiac silhouette is normal in size. The thoracic vasculature is within normal limits. Mild bibasilar atelectasis. Small left pleural effusion. No pneumothorax. No acute osseous abnormality. Visualized soft tissues are unremarkable. IMPRESSION:Small left pleural effusion. Signed: Rubia Lipscomb [facility] Verified Date/Time: 12/19/2022 13:55:56 Reading Location: [facility] C013X Ortho Consult Reading Room OSMOLALITY, [id number] 07:27:48 Test Item Value Reference Range Interpretation Comments OSMOLALITY, SERUM (BEAKER) (test 282 mOsm/kg 275-295 code = 615) BASIC METABOLIC [id number] 07:16:16 Test Item Value Reference Range Interpretation Comments SODIUM (BEAKER) 133 meq/L 136-145 L (test code = 381) POTASSIUM 4.1 meq/L 3.5-5.1 (BEAKER) (test code = 379) CHLORIDE (BEAKER) 91 meq/L 98-107 L (test code = 382) CO2 (BEAKER) 32 meq/L 22-29 H (test code = 355) BLOOD UREA 12 mg/dL 7-21 NITROGEN (BEAKER) (test code = 354) CREATININE 0.92 mg/dL 0.57-1.25 (BEAKER) (test code = 358) GLUCOSE RANDOM 201 mg/dL 70-105 H (BEAKER) (test code = 652) CALCIUM (BEAKER) 9.4 mg/dL 8.4-10.2 (test code = 697) EGFR (BEAKER) 93 Interpretatio n of eGFR (test code = mL/min/1.73 values Stage De scription 1092) sq m Result G1 Ally l or high >=90 G2 Mildly decreased 60-89 G3a Mildl y to moderately 45-5 9 G3b Moderately to s everely 30-44 G4 Severl y decreased 15-29 G5 Kidne y failure <15Reported eGF R is based on the CKD-EPI 202 equation that d oes not use a race coefficientEsti mated GFR is not as accur ate as Creatinine Mariann hiro in predicting glom erular filtration rate . Estimated GFR is not appl icable for dialysis patien ts Bookkeeping Assistant ID - [id number] 07:16:16 Test Item Value Reference Range Interpretation Comments MAGNESIUM (BEAKER) (test code = 1.9 mg/dL 1.6-2.6 627) Bookkeeping Assistant ID - [id number] 07:16:16 Test Item Value Reference Range Interpretation Comments PHOSPHORUS (BEAKER) (test code = 4.2 mg/dL 2.3-4.7 604) Bookkeeping Assistant ID - MMVANCOMYCIN LEVEL, [id number] 07:15:55 Test Item Value Reference Range Interpretation Comments VANCOMYCIN RANDOM (BEAKER) (test 9.4 ug/mL code = 523) Reference Range: No NormalsOperator ID - MMCBC W/PLT COUNT & AUTO [id number] 06:38:56 Test Item Value Reference Range Interpretation Comments WHITE BLOOD CELL COUNT (BEAKER) 7.6 K/ L 3.5-10.5 (test code = 775) RED BLOOD CELL COUNT (BEAKER) 3.59 M/ L 4.63-6.08 L (test code = 761) HEMOGLOBIN (BEAKER) (test code = 10.7 GM/DL 13.7-17.5 L 410) HEMATOCRIT (BEAKER) (test code = 32.8 % 40.1-51.0 L 411) MEAN CORPUSCULAR VOLUME (BEAKER) 91 fL 79-92 (test code = 753) MEAN CORPUSCULAR HEMOGLOBIN 29.8 pg 25.7-32.2 (BEAKER) (test code = 751) MEAN CORPUSCULAR HEMOGLOBIN CONC 32.6 GM/DL 32.3-36.5 (BEAKER) (test code = 752) RED CELL DISTRIBUTION WIDTH 12.6 % 11.6-14.4 (BEAKER) (test code = 412) PLATELET COUNT (BEAKER) (test 337 K/CU MM 150-450 code = 756) MEAN PLATELET VOLUME (BEAKER) 9.1 fL 9.4-12.4 L (test code = 754) NUCLEATED RED BLOOD CELLS 0 /100 WBC 0-0 (BEAKER) (test code = 413) NEUTROPHILS RELATIVE PERCENT 91 % (BEAKER) (test code = 429) LYMPHOCYTES RELATIVE PERCENT 7 % (BEAKER) (test code = 430) MONOCYTES RELATIVE PERCENT 2 % (BEAKER) (test code = 431) EOSINOPHILS RELATIVE PERCENT 0 % (BEAKER) (test code = 432) BASOPHILS RELATIVE PERCENT 0 % (BEAKER) (test code = 437) NEUTROPHILS ABSOLUTE COUNT 6.95 K/ L 1.78-5.38 H (BEAKER) (test code = 670) LYMPHOCYTES ABSOLUTE COUNT 0.51 K/ L 1.32-3.57 L (BEAKER) (test code = 414) MONOCYTES ABSOLUTE COUNT (BEAKER) 0.12 K/ L 0.30-0.82 L (test code = 415) EOSINOPHILS ABSOLUTE COUNT 0.00 K/ L 0.04-0.54 L (BEAKER) (test code = 416) BASOPHILS ABSOLUTE COUNT (BEAKER) 0.01 K/ L 0.01-0.08 (test code = 417) IMMATURE GRANULOCYTES-RELATIVE 0.50 % 0.00-1.00 PERCENT (BEAKER) (test code = 6671)
[2022-12-31] MEDS ORDERED: METHYLPREDNISOLONE 125 MG INJ ONE (15:01)
[2022-12-31 15:05] LABS: Absolute Lymphocytes (CBC) 1.6 K/uL (0.7-4.9); Hematocrit 38.4 % (39.6-49.0); Lymphocytes % 15.5 % (15.3-44.8); MCV 91.7 fL (80-100); MPV 7.9 fL (7.6-11.3); RBC Red Blood Cell Count 4.18 M/uL (4.33-5.43)
--- NOTE | 2022-12-31 15:50 | RAD REPORT ---
EXAM DESCRIPTION: RAD - Chest Single View - 12/31/2022 3:27 pm CLINICAL HISTORY: COPD COMPARISON: Chest Single View dated 12/18/2022; Chest Single View dated 11/24/2022; Chest Single View d ated 11/10/2022; Chest Single View dated 10/29/2022; Thorax W/ Con dated 12/18/2022 FINDINGS: Lines: None. Lungs: Similar elevation of left hemidiaphragm and likely underlying atelectasis. Mild prominence of the pulmonary interstitium. Pleural: Known left pleural effusion is unchanged. Cardiac: The heart size is within normal limits. Mediastinum: Within normal limits. Bones: No acute fractures. Other: None IMPRESSION: No acute cardiopulmonary disease. Known loculated left pleural effusion and likely under lying atelectasis is not significantly changed.
[2022-12-31 16:25] LABS: Albumin 3.1 g/dL (3.4-5.0); Bilirubin Total 0.3 mg/dL (0.2-1.0); Potassium 3.8 mEq/L (3.5-5.1); Protein, Total 6.4 g/dL (6.4-8.2); Troponin High Sensitivity 7.4 pg/mL (<58.9)
--- NOTE | 2022-12-31 17:27 | RAD REPORT ---
EXAM DESCRIPTION: CT - Chest Abdomen W Con - 12/31/2022 4:58 pm CLINICAL HISTORY: Chest and abdomen pain. pleural effusion COMPARISON: Thorax W/ Con dated 12/18/2022; Abdomen Pelvis W Contrast dated 11/24/2022; Stone Protoco l dated 08/11/2022 TECHNIQUE: Approximately 100 mL nonionic IV contrast was administered to the patient. CT scan of the chest and abdomen was obtained with IV contrast. All CT scans are performed using dose optimization technique as appropriate and may include automated exposure control or mA/KV adjustment according to patient size. FINDINGS: The lungs are clear.Small left pleural effusion. Pleural-based calcifications in the left lower lung may be from prior pleurodesis. Basilar scarring.No intrathoracic adenopathy.Aortic valve c alcifications. Ectatic descending thoracic aorta Too small characterize low-density lesion left hepatic lobe is likely benign. Gallbladder is unremark able. The spleen is unremarkable. The right adrenal glands unremarkable. The left adrenal gland has a small myelolipoma. No bowel obstruction, free air, free fluid or abscess. Normal appendix. No pathologic lymphadenopath y in the abdomen or pelvis. Right upper pole renal cyst. Right lower pole renal cyst. Absent left kid janette. No hydronephrosis. Moderate stool in the colon. Atherosclerosis. No worrisome osseous finding. IMPRESSION: Small left pleural effusion without significant change compared with 12/18/2022. No new acute findings identified.
--- NOTE | 2022-12-31 18:56 | EDPHYS ---
Physician Documentation [facility] Name: Randolph Mckeon Age: 67 yrs Sex: Male : 1955 Arrival Date: 12/31/2022 Time: 14:33 Bed 18 Private MD: ED Physician Gurpreet Arshad HPI: 12/31 16:13 This 67 yrs old Male presents to ER via EMS with complaints of Shortness Of Breath. rt 16:13 Patient was seen here in the ED about 2 weeks ago, diagnosed with a loculated pleural rt effusion and subsequently sent to [facility] for further evaluation where he was admitted for about 9 days per his report. States that he did an ultrasound there which revealed a loculated pleural effusion which was not big enough to drain, states that since discharge on Wednesday, he had significantly worsening dyspnea. Denies chest pain. Denies other acute complaints at this time. Symptoms are moderate severity, no other aggravating or alleviating factors.. Historical: - Allergies: 14:36 No Known Allergies; ll1 - PMHx: 14:36 COPD; Hypertension; Pneumonia; CHF; ll1 - PSHx: 14:36 cyst removal on lower left limb; ll1 - Immunization history:: Adult Immunizations up to date. - Social history:: Smoking status: Patient reports the use of cigarette tobacco products, smokes one-half pack cigarettes per day. - Family history:: not pertinent. ROS: 16:13 Constitutional: Negative for fever, chills, and weight loss, Eyes: Negative for injury, rt pain, redness, and discharge, Cardiovascular: Negative for chest pain, palpitations, and edema, Abdomen/GI: Negative for abdominal pain, nausea, vomiting, diarrhea, and constipation, Skin: Negative for injury, rash, and discoloration, Neuro: Negative for headache, weakness, numbness, tingling, and seizure, Psych: Negative for depression, anxiety, suicide ideation, homicidal ideation, and hallucinations. 16:13 Respiratory: Positive for cough, shortness of breath. Exam: 16:13 Constitutional: This is a well developed, well nourished patient who is awake, alert, rt and in no acute distress. Head/Face: Normocephalic, atraumatic. Chest/axilla: Normal chest wall appearance and motion. Nontender with no deformity. No lesions are appreciated. Cardiovascular: Regular rate and rhythm with a normal S1 and S2. No gallops, murmurs, or rubs. Normal PMI, no JVD. No pulse deficits. Abdomen/GI: Soft, non-tender, with normal bowel sounds. No distension or tympany. No guarding or rebound. No evidence of tenderness throughout. Skin: Warm, dry with normal turgor. Normal color with no rashes, no lesions, and no evidence of cellulitis. MS/ Extremity: Pulses equal, no cyanosis. Neurovascular intact. Full, normal range of motion. Neuro: Awake and alert, GCS 15, oriented to person, place, time, and situation. Cranial nerves II-XII grossly intact. Motor strength 5/5 in all extremities. Sensory grossly intact. Cerebellar exam normal. Normal gait. Psych: Awake, alert, with orientation to person, place and time. Behavior, mood, and affect are within normal limits. 16:13 Respiratory: Wheezes heard on the left lung mccartney, no respiratory distress. Vital Signs: 14:37 BP 109 / 67; Pulse 66; Resp 20; Temp 97.7; Pulse Ox 95% on R/A; ll1 15:43 BP 127 / 57; Pulse 67; Pulse Ox 99% on R/A; ll1 16:30 BP 127 / 91; Pulse 86; ll1 18:44 BP 109 / 63; Pulse 57; Resp 18; Pulse Ox 99% ; ll1 MDM: 14:37 Patient medically screened. rt 19:10 Differential diagnosis: Pneumonia, pneumothorax, CHF, pleural effusion. Data reviewed: rt vital signs, nurses notes, lab test result(s), EKG, radiologic studies. Consideration of Admission/Observation Escalation of care including admission/observation considered. Discussed the case with shipping and receiving clerk on-call, states that he knows the patient well, states that as the effusion is not worsening, that he has no hypoxia, no indications for admission to the hospital, we will follow-up patient as an outpatient.. Management of patient was discussed with the following: Healthcare Consultant: pulmonology. I considered the following discharge prescriptions or medication management in the emergency department Medications were administered in the Emergency Department. See MAR. Counseling: I had a detailed discussion with the patient and/or guardian regarding: the historical points, exam findings, and any diagnostic results supporting the discharge/admit diagnosis, lab results, radiology results, the need for outpatient follow up. 12/31 14:40 Order name: CBC with Diff; Complete Time: 15:53 rt 12/31 14:40 Order name: CMP; Complete Time: 16:28 rt 12/31 14:40 Order name: Troponin High Sensitivity; Complete Time: 16:28 rt 12/31 14:40 Order name: BNP; Complete Time: 16:28 rt 12/31 14:40 Order name: Chest Single View XRAY; Complete Time: 15:53 rt 12/31 16:08 Order name: CT Chest Abdomen W/ Contrast; Complete Time: 17:28 rt 12/31 15:07 Order name: Labs - recollect needed: green top please; Complete Time: 15:21 em1 Administered Medications: 15:02 Drug: MethylPrednisoLONE IVP 125 mg Route: IVP; Site: right antecubital; ll1 15:56 Follow up: Response: No adverse reaction ll1 Disposition Summary: 12/31/22 18:55 Discharge Ordered Location: Home rt Problem: an ongoing problem rt Symptoms: are unchanged rt Condition: Stable rt Diagnosis - Pleural effusion, not elsewhere classified rt Followup: rt - With: Cooper Holt MD - When: 2 - 3 days - Reason: Discharge Instructions: - Discharge Summary Sheet rt - Pleural Effusion rt Forms: - Medication Reconciliation Form rt - Thank You Letter rt - Antibiotic Education rt - Prescription Opioid Use rt Signatures: Dispatcher [employer] Javier García em1 La Peters, RN RN ll1 Gurpreet Arshad MD MD rt
--- NOTE | 2022-12-31 18:56 | ER ---
Nurse's Notes [facility] Name: Randolph Mckeon Age: 67 yrs Sex: Male : 1955 Arrival Date: 12/31/2022 Time: 14:33 Bed 18 Private MD: Diagnosis: Pleural effusion, not elsewhere classified Presentation: 12/31 14:35 Chief complaint: Patient states: SOB started today. Released Wednesday from hospital in [address] for pneumonia. EMS states: [facility]SS. Coronavirus screen: Client denies travel out of the [place] in the last 14 days. At this time, the client does not indicate any symptoms associated with coronavirus-19. Ebola Screen: Patient denies travel to an Ebola-affected area in the 21 days before illness onset. Initial Sepsis Screen: Does the patient meet any 2 criteria? No. Patient's initial sepsis screen is negative. Does the patient have a suspected source of infection? Yes: Productive cough/pneumonia. Risk Assessment: Do you want to hurt yourself or someone else? Patient reports no desire to harm self or others. Onset of symptoms was December 31, 2022. 14:35 Method Of Arrival: EMS [facility] 14:35 Acuity: YANNICK 3 [facility] Triage Assessment: 14:36 General: Appears uncomfortable, ill, Behavior is calm, cooperative, appropriate for [facility] age. Pain: Denies pain. Respiratory: Reports shortness of breath on exertion Onset: The symptoms/episode began/occurred yesterday, the patient has mild shortness of breath. Historical: - Allergies: 14:36 No Known Allergies; ll1 - PMHx: 14:36 COPD; Hypertension; Pneumonia; CHF; ll1 - PSHx: 14:36 cyst removal on lower left limb; ll1 - Immunization history:: Adult Immunizations up to date. - Social history:: Smoking status: Patient reports the use of cigarette tobacco products, smokes one-half pack cigarettes per day. - Family history:: not pertinent. Screenin:41 [facility] ED Fall Risk Assessment (Adult) Score/Fall Risk Level 0 - 2 = Low Risk [facility] Oriented to surroundings, Maintained a safe environment, Educated pt \T\ family on fall prevention, incl call for assistance when getting out of bed, Hourly rounding (assess needs \T\ fall precautionary measures) done. Abuse screen: Denies threats or abuse. Nutritional screening: No deficits noted. Tuberculosis screening: No symptoms or risk factors identified. Assessment: 15:02 Reassessment: No changes from previously documented assessment. Patient and/or family ll1 updated on plan of care and expected duration. Pain level reassessed. Patient is alert, oriented x 3, equal unlabored respirations, skin warm/dry/pink. 15:21 Reassessment: No changes from previously documented assessment. Patient and/or family ll1 updated on plan of care and expected duration. Pain level reassessed. 15:41 Respiratory: Airway is patent Respiratory effort is even, unlabored, Breath sounds with ll1 wheezes in left posterior upper lobe. 15:57 Reassessment: No changes from previously documented assessment. labs being re drawn ll1 again by lab. 17:04 Reassessment: No changes from previously documented assessment. back from CT. ll1 18:55 Reassessment: No changes from previously documented assessment. Patient and/or family kd3 updated on plan of care and expected duration. Pain level reassessed. Patient is alert, oriented x 3, equal unlabored respirations, skin warm/dry/pink. 19:20 Cardiovascular: Rhythm is regular. kd3 Vital Signs: 14:37 BP 109 / 67; Pulse 66; Resp 20; Temp 97.7; Pulse Ox 95% on R/A; ll1 15:43 BP 127 / 57; Pulse 67; Pulse Ox 99% on R/A; ll1 16:30 BP 127 / 91; Pulse 86; ll1 18:44 BP 109 / 63; Pulse 57; Resp 18; Pulse Ox 99% ; ll1 ED Course: 14:34 Patient arrived in ED. ll1 14:36 Triage completed. ll1 14:37 Gurpreet Arshad MD is Attending Physician. rt 14:37 Arm band placed on Patient placed in an exam room, on a stretcher. ll1 14:43 La Peters, SAMEER is Primary Nurse. ll1 14:55 Inserted saline lock: 20 gauge in right antecubital area, using aseptic technique. ll1 Blood collected. 15:29 Chest Single View XRAY In Process Unspecified. EDMS 15:41 Patient has correct armband on for positive identification. Bed in low position. Call ll1 light in reach. Side rails up X 1. Client placed on continuous cardiac and pulse oximetry monitoring. NIBP monitoring applied. 15:42 No provider procedures requiring assistance completed. ll1 17:00 CT Chest Abdomen W/ Contrast In Process Unspecified. EDMS 18:55 Cooper Holt MD is Referral Physician. rt 19:21 IV discontinued, intact, bleeding controlled, No redness/swelling at site. Pressure kd3 dressing applied. Administered Medications: 15:02 Drug: MethylPrednisoLONE IVP 125 mg Route: IVP; Site: right antecubital; ll1 15:56 Follow up: Response: No adverse reaction ll1 Medication: 15:42 VIS not applicable for this client. ll1 Outcome: 18:55 Discharge ordered by MD. rt 19:20 Discharged to home via wheelchair. kd3 19:20 Condition: stable 19:20 Discharge instructions given to patient, Instructed on discharge instructions, follow up and referral plans. Demonstrated understanding of instructions, follow-up care. 19:21 Patient left the ED. kd3 Signatures: Dispatcher [employer] EDNC La Peters RN RN ll1 Emily Santos RN RN kd3 Gurpreet Arshad MD MD rt Corrections: (The following items were deleted from the chart) 14:38 14:35 Chief complaint: Patient states: SOB started today. Released Wednesday from hospital [facility] in [place]. EMS states: [facility]
[2022-12-31 19:41] VITALS: TEMP 97.7
[2022-12-31 19:46] VITALS: O2SAT 99
[2022-12-31 19:48] VITALS: BP 109/63
== END 2022-12-31 19:21 | disposition home or self-care (01) ==
LOC: ER 14:33
DX: J90 Pleural effusion, not elsewhere classified (principal); I50.9 Heart failure, unspecified; I10 Essential (primary) hypertension; J44.9 Chronic obstructive pulmonary disease, unspecified; F17.210 Nicotine dependence, cigarettes, uncomplicated
CPT/HCPCS: 85025; 36415; 84484; 80053; 83880; 74160; 71260; 71045; 96374; 99284; Q9967; J2930

== ENCOUNTER 2023-02-22 12:17 | Observation (INO) | payer OTHER, BC ==
--- OUTSIDE RECORDS SUMMARY | 2023-02-22 12:21 | XMS REPORT | Continuity of Care Document ---
:1955 Author Organization [facility] t Address [address] [facility] [address] [place] [id number] Care Team Providers Name Role Phone ADRIAN OROPEZA Attending Clinician Unavailable Jasson ZULUAGA, Wesley Matias Attending Clinician Thad ZULUAGA, Stacey Attending Clinician Jose Enrique ZULUAGA, Adrian Quinones Attending Clinician [phone] Latoya ZULUAGA, Lucas Attending Clinician Sheikh MARGARETH, Keo Patton Attending Clinician WESLEY MENDOZA Admitting Clinician Unavailable Payers Payer Name Policy Type Policy Number Effective Date Expiration Date jaswantce MEDICARE A B [id number] 2022 00:00:00 [place] [id number] 2022 OS 00:00:00 Problems Condition Condition Condition Status Onset Resolution Last Treating Co mments Source Name Details Category Date Date Treatment Clinician Date COPD COPD Disease Recurre [facility]ce 12-28 Audrey kes on on 00:00: Medical 00 [place] Colon Colon Disease Active [facility] polyp [facility] 00 [place] Shortness Shortness Disease Active [facility] breath of breath -[facility] 00:00: Medical 00 Center Allergies, Adverse Reactions, Alerts Allergy Allergy Status Severity Reaction(s) Onset Inactive Treating Comm ents Source Name Type Date Date Clinician NO KNOWN Allergy Active [facility] Social History Social Habit Start Date Stop Date Quantity Comments Source History of tobacco Passive smoker [facility] use [facility] History [facility]-Med Medical [facility] Alcohol intake 2022-12-25 2022-12-25 Ex-drinker [facility] 00:[facility]00 00:00:00 (finding) Medical Center Exposure to 2022-12-09 2022-12-[address] [facility] SARS-CoV-2 (event) 00:00:00 03:57:00 Medica [facility] Cigarettes smoked 2022-12-19 2022-12-[address] [facility] current (pack per 00:00:00 00:00:00 Medical Center day) - Reported Cigarette 2022-12-19 2022-12-[address] [facility] pack-years 00:00:00 00:00:00 Medical Center Tobacco use and 2022-12-19 2022-12-[address] [facility] exposure 00:00:00 00:00:00 non-user Medical Center History [facility] 2022-12-19 2022-12-[address] [facility] Transport Med 00:00:00 00:00:[address] History [facility] 2022-12-19 2022-12-[address] [facility] Housing Unable to 00:00:00 00:00:00 Medical Center Pay History [facility] 2022-12-19 2022-12-[address] [facility] Housing Places 00:00:00 00:00:00 Medical Ce nter Lived History [facility] 2022-12-19 2022-12-[address] [facility] Housing Homeless 00:00:00 00:00:00 Medical Center Last Year Sex Assigned At [address] [facility] kes 00:00:00 00:00:00 Medical Center Smoking Status Start Date Stop Date Source Smokes tobacco daily 2022-12-19 00:00:00 [facility] Medications Ordered Filled Start Stop Current Ordering Indication Dosage Frequency Signature Comments Components Source Medication Medication Date Date Medication? Clinician (SIG) Name Name amLODIPine Yes 5mg QD Take 1 [facility] [...] Cent er tablet in the morning. fluticasone 2022-0 Yes Inhale by C HI [...] by Me dical mL 47 :00 nebulizati [place] nebulizer on every 6 solution (six) hours as needed for Wheezing. metoprolol 2022-0 Yes 12.5mg Q.5D Take 0.[address] tartrate 5-08 tablets [facility] (LOPRESSOR) 00:00: (12.5 mg Me dical 25 MG 00 total) by Center tablet mouth in the morning and 0.5 tablets (12.5 mg total) before bedtime. apixaban 3-0 Yes 5mg Q.5D Take [address] [...] solution (six) hours as needed for Wheezing. propranoloL 2022-0 Yes 10mg Q.5D Take [address] [...] 1.25mg Take [address] (ACCUNEB) - (1.25 mg [facility] 1.25 mg/3 15:55: total) by Med ical mL 45 nebulizati Center nebulizer on every 6 solution (six) hours as needed for Wheezing. amLODIPine 2022-0 Yes 5mg QD Take 1 [facility] (NORVASC) 5 - tablet (5 [facility] MG tablet 15:55: [...] mouth Cent er tablet in the morning. Vital Signs Vital Name Observation Time Observation Value Comments Source HEIGHT 2022-12-19 06:46:00 180.3 cm WEIGHT 2022-12-19 06:46:00 97.7 kg HEIGHT 2022-12-19 06:46:00 180.3 cm WEIGHT 2022-12-19 06:46:00 97.7 kg Systolic blood 2022-12-28 11:00:00 115 mm[Hg] [facility] pressure [facility] Center Diastolic blood 2022-12-28 11:00:00 74 mm[Hg] [facility] Heart rate 2022-12-28 11:00:00 65 /min [facility] Body temperature 2022-12-28 11:00:00 36.28 Mirian [facility] Respiratory rate 2022-12-28 11:00:00 20 /min [facility] Oxygen saturation in 2022-12-28 11:00:00 100 /min [facility] Arterial blood by Medical Ce nter Pulse oximetry Systolic blood 2022-12-28 07:00:00 117 mm[Hg] [facility] Diastolic blood 2022-12-28 07:00:00 65 mm[Hg] [facility] Heart rate 2022-12-28 07:00:00 62 /min [facility] Body temperature 2022-12-28 07:00:00 36.61 [facility] Respiratory rate 2022-12-28 07:00:00 20 /min [facility] Oxygen saturation in 2022-12-28 07:00:00 98 /min [facility] Arterial blood by Medical Ce nter Pulse oximetry Body height 2022-12-19 06:46:00 180.3 cm [facility] Body weight 2022-12-19 06:46:00 97.7 kg [facility] BMI 2022-12-19 06:46:00 30.04 kg/m2 [facility] Procedures Procedure Date / Time Performed Performing Clinician Sour e CBC W/PLT COUNT & AUTO 2022-12-28 04:14:00 Jose Enrique, [facility] MAGNESIUM 2022-12-28 04:14:[address] [facility] BASIC METABOLIC PANEL 2022-12-28 04:14:[address] [facility] CBC W/PLT COUNT & AUTO 2022-12-28 04:14:00 Jose Enrique [facility] HIGH SENSITIVITY 2022-12-27 00:19:00 [facility] s TROPONIN I [facility] BASIC METABOLIC PANEL 2022-12-27 00:19:00 [facility] AUTO 2022-12-27 00:19:00 Jose Enrique, [facility] S t [facility] MAGNESIUM 2022-12-27 00:19:00 Jose Enrique, [facility] TSH/FREE T4 IF INDICATED 2022-12-27 00:19:00 Jose Enrique, [facility] CBC W/PLT COUNT & AUTO 2022-12-27 00:19:00 Jose Enrique, Adrian [facility] S alessia [facility] HIGH SENSITIVITY 2022-12-26 13:48:00 Jose Enrique, [facility] s TROPONIN I [facility] ECG 12-LEAD 2022-12-26 12:37:14 Unknown, H[facility] ECG 12-LEAD 2022-12-26 12:36:52 Jose Enrique, [facility] ECG 12-LEAD 2022-12-26 12:36:52 Unknown, Hl7 [facility] CBC W/PLT COUNT & AUTO 2022-12-26 02:27:00 Jose Enrique, [facility] S [facility] BASIC METABOLIC PANEL 2022-12-26 02:27:00 Jose Enrique, [facility] MAGNESIUM 2022-12-26 02:27:00 Jose Enrique, [facility] CBC W/PLT COUNT & AUTO 2022-12-26 02:27:00 Jose Enrique, [facility] S alessia [facility] REPORT OF PROCEDURE - 2022-12-25 14:41:41 Keo Heredia [facility] ENDOSCOPY [facility] TISSUE EXAM 2022-12-25 14:10:00 Keo Heredia [facility] COLONOSCOPY, WITH 2022-12-25 13:28:[address] [facility] POLYPECTOMY [facility] CBC W/PLT COUNT & AUTO 2022-12-25 04:11:00 Jose Enrique, [facility] S t [facility] BASIC METABOLIC PANEL 2022-12-25 04:11:00 Jose Enrique, [facility] MAGNESIUM 2022-12-25 04:11:00 Jose Enrique, [facility] CBC W/PLT COUNT & AUTO 2022-12-25 04:11:00 Jose Enrique, [facility] Layla [facility] POCT-GLUCOSE METER 2022-12-24 12:01:00 Jose Enrique, [facility] CBC W/PLT COUNT & AUTO 2022-12-24 03:55:00 Jose Enrique, [facility] BASIC METABOLIC PANEL 2022-12-24 03:55:00 Jose Enrique, [facility] MAGNESIUM 2022-12-24 03:55:00 Jose Enrique, [facility] CBC W/PLT COUNT & AUTO 2022-12-24 03:55:00 [facility], [facility] CBC W/PLT COUNT & AUTO 2022-12-23 04:33:00 Jose Enrique, [facility] BASIC METABOLIC PANEL 2022-12-23 04:33:00 Jose Enrique, [facility] MAGNESIUM 2022-12-23 04:33:00 [facility], [facility] CBC W/PLT COUNT & AUTO 2022-12-23 04:33:00 [facility], [facility] P.E.T./CT SKULL BASE TO 2022-12-22 16:11:00 ThadStacey [facility] MID-THIGH [facility] POCT-GLUCOSE METER 2022-12-22 13:52:00 Jose Enrique, [facility] US CHEST 2022-12-22 11:37:00 Jose Enrique, [facility] CBC W/PLT COUNT & AUTO 2022-12-22 03:04:00 Jose Enrique, [facility] BASIC METABOLIC PANEL 2022-12-22 03:04:00 Jose Enrique, [facility] MAGNESIUM 2022-12-22 03:04:00 Jose Enrique, [facility] CBC W/PLT COUNT & AUTO 2022-12-22 03:04:00 Jose Enrique, [facility] PROTHROMBIN TIME/INR 2022-12-21 14:29:00 Rubia Brooks [facility] 2D ECHO W/ DOPPLER 2022-12-21 12:19:12 Wesley Mendoza [facility] (CW/PW/COLOR) [facility] CBC W/PLT COUNT & AUTO 2022-12-21 08:40:00 Jose Enrique, [facility] CBC W/PLT COUNT & AUTO 2022-12-21 08:40:00 [facility], [facility] BASIC METABOLIC PANEL 2022-12-21 08:40:00 [facility], [facility] MAGNESIUM 2022-12-21 08:40:00 [facility], [facility] VANCOMYCIN LEVEL, TROUGH 2022-12-20 09:34:00 Chalo, [facility] MRSA SCREEN 2022-12-19 12:58:00 Chalo [facility] XR CHEST 1 VIEW PORTABLE 2022-12-19 12:50:[address] [facility] ABORH, MANUAL 2022-12-19 06:31:00 Sindy Blanco [facility] TYPE AND SCREEN, 2022-12-19 06:03:00 Wesley Mendoza [facility] AUTOMATED [facility] CBC W/PLT COUNT & AUTO 2022-12-19 06:03:00 Wesley Mendoza [facility] VANCOMYCIN LEVEL, RANDOM 2022-12-19 06:03:00 Wesley Mendoza [facility] CBC W/PLT COUNT & AUTO 2022-12-19 06:03:00 Wesley Mendoza [facility] BASIC METABOLIC PANEL 2022-12-19 06:03:00 Wesley Mendoza [facility] MAGNESIUM 2022-12-19 06:03:00 Wesley Mendoza [facility] PHOSPHORUS 2022-12-19 06:03:00 Wesley Mendoza [facility] OSMOLALITY, SERUM 2022-12-19 06:03:00 Wesley Mendoza [facility] S t [facility] EKG-SCANNED 2022-12-19 00:00:00 Provider, Jarek [facility] es Scanning [facility] Plan of Care Planned Activity Planned Date Details Comments Source Future Scheduled 2032-12-25 Screening for malignant [facility] Test 00:00:00 neoplasm of colon Medical Ce nter (procedure) [code = 802931261] Future Scheduled 2032-12-25 Screening for malignant [facility] Test 00:00:00 neoplasm of colon Medical Ce nter (procedure) [code = 137080322] Future Scheduled 2032-12-25 Screening for malignant [facility] Test 00:00:00 neoplasm of colon Medical Ce nter (procedure) [code = 944508739] Future Scheduled 2032-12-25 Screening for malignant [facility] Test 00:00:00 neoplasm of colon Medical Ce nter (procedure) [code = 750046710] Future Scheduled 2022-08-[address] [...] screening Medical C enter (procedure) [code = 890650466] Future Scheduled [address] [facility] Test 00:00:00 aneurysm screening Medical C enter (procedure) [code = 172673540] Future Scheduled 2022-02-20 Medicare IPPE (WELCOME C [...] lung Medical Gerardo ter (procedure) [code = 835352488] Future Scheduled 2007 SHINGLES VACCINES ([address] [facility] Test 00:00:00 2) [code = SHINGLES Medical Center VACCINES (1 of 2)] Future Scheduled 2007 Screening for malignant [facility] Test 00:00:00 neoplasm of lung Medical Gerardo ter (procedure) [code = 769386250] Future Scheduled 2007 SHINGLES VACCINES ([address] [facility] Test 00:00:00 2) [code = SHINGLES [facility] Center VACCINES (1 of 2)] Future Scheduled 1992 Lipid panel (procedure) [facility] Test 00:00:00 [code = 16542493] Medical Ce nter Future Scheduled 1992 Lipid panel (procedure) [facility] Test 00:00:00 [code = 40670229] Medical Ce nter Future Scheduled 1976 DTAP/TDAP/TD [...] Test 00:00:00 [code = CT Colon[facility] (combo)] Future Scheduled 1957 Screening for malignant [facility] Test 00:00:00 neoplasm of colon Medical Ce nter (procedure) [code = 914648798] Future Scheduled 1957 Screening for malignant [facility] Test 00:00:00 neoplasm of colon Medical Ce nter (procedure) [code = 534425037] Future Scheduled 1955 Sigmoidoscopy [code = [facility] Test 00:00:00 Sigmoidoscopy] Medical Cente r Future Scheduled 1957 CT Colonography (combo) [facility] Test 00:00:00 [code = CT Colon[facility] (combo)] Future Scheduled 1957 Screening for malignant [facility] Test 00:00:00 neoplasm of colon Medical Ce nter (procedure) [code = 400221837] Future Scheduled 1957 Screening for malignant [facility] Test 00:00:00 neoplasm of colon Medical Ce nter (procedure) [code = 502034589] Future Scheduled 1955 Sigmoidoscopy [code = [facility] Test 00:00:00 Sigmoidoscopy] Medical Cente r Encounters Start End Encounter Admission Attending Care Care Encounter Source Date/Time Date/Time Type Type Clinicians Facility Department ID 2022-12-19 2022-12-28 Inpatient ER [facility] [id number] [facility] 03:40:00 12:53:00 ADRIAN 2022-12-19 2022-12-[address] [facility] [id number] 03:40[facility]00 12:53:00 [facility]22-[facility]-26 2022-12-[address] [facility] [id number] 00:00:00 00:00:[address] [facility] 2022-12-25 2022-12-25 An[address]hesia Klein, [facility] [id number] 13:28:00 14:53:[address] [facility] 2022-12-25 2022-12-25 [facility] [id number] 13:00:00 14:00:00 Keo Patton [facility] 2022-12-19 2022-12-19 Travel [facility] [id number] [facility] 00:[facility]:00 [facility] Results Test Description Test Time Test Comments Results Result Comments Source Tissue Exam 2022-12-28 13:49:30 Test Item Value Reference Range Interpretation Comme nts Case Report (test code = 104) Surgical Pathology Report Case: [id number] Authorizing Provider: Keo Heredia MD Collected: 12/25/2022 02:10 PM Ordering Location: [address] Received: 12/25/2022 04:33 PM Service Pathologist: Triston Armstrong MD Specimens: A) - Polyp, Colon - Transverse, polyp via hot snare B) - Polyp, Colon - Sigmoid, polyp via hot snare C) - Rectal, polyp via hot snare DIAGNOSIS (test code = 3220) r5ycsJKoZJRmf7nxHFDkdXBdXbKdHkImXyVhVp p jgGTjDEynfsQnJBakiUlaLEXfBUZnWZ4dgXhsqY g4oPqeIEKdmoL2hMQqCOojc6gbMPB0m7jtyqpwQ UGdDWnfIw0qiZYrnJzoLnEgJIJjLMd0eH10RIEd mF9nyQZgHDs0HPBpaLDeiyYmWmUrOYQasPJnuPH 7AIXcPZ5knubjGWuvDEbfTSDyqsE8ILDlqJUgZ7 IyYVAsIS0jsnjiYEV4WEnfFGAoVZG9ChZnKHSyp 4Vtlna0GcClmZEaBTvlcCApouvnjeBvYLRjYOAP VB9AATTNMhRUK1LEDqNTLRCML1jRCZHZCR2TJPx wtMXwLORpBlWwBYHIJFdDQtWVGOIUR65GTQUfew zuFEAhCf6kZ56XV38uHTATE75UUPSrMGPYRHlQR PTIC54JEubqOEHxjSQcEP3FJEVDXUUXGICAXB9V YHXowSYmKCVopiGWSaKOVSFELC6uKTXWOIjCIAE LO47WZmccFKFpaEHkNN1LKSEUOZ6IGLmUV3GELZ QUQC9UAZMzwFEcmCltjcViMNdne4HiKColJGByL I7lmTvuLYTwMR2mLLXtB2abyE7amnm8MyPkAOMp JbE4VSTethS8Lki5DYEqCXmfv6ztf0EoXUUeOYl 7aMptHhVvDPSzf7eqzwNzXoIvOQIgNNEjECBtbF YoB991s3dax4giflRxgDP8BXFjWMQ2BRpkxtKoa dT9SOsjcTIxBtX0WTvdtrVmGBunukYlhiHxOzk9 JFZbY607LTZ6zGijw1vtJFO2ZUFrMUMqVeXaEq5 emTKnM140LSYcUHDKQVOnuHy3XCApqoAwuqFwuL UWj642F537t1esAOPmzyUkqGxSyazwl7pbQ439O CSjhMPlwjHdYtXnZVYazYRlhAQ7EKGjGM0fnmto KMqyFPvxHLOqtgD4NHGweOQfO2DeUUSlLS1nljq gWJT0INnxFIUeYFL8FqXwYLMav3Pttyn4ZoHxub 9ogd10KJQ1k8PpfQtnVGX1CTP7GfZnZa3eaMYdC XYnRD9sGuWigYFaLSQjvh31cUhiMLvzRTA1UMPi guChm3Ord7wjEjAeecUaK2yoV6SiIRZtALHtCDL sCoLgfuJlo4Dfz4YxjXRwuHx8q3rqJEClQFWfuY tre1peOWW2JAWewEIbB6nkoO2jCUKaXB7iwyhyr 5ryQDtcVFdeLPJcjJL2kxI2VNVrvLHiB7FphB3h QSRpTPrkKLFjduz7KsYgOa9kdJXjbHwpVKtfGam wYWdlXHBnbmNvbnRccGduZGVjXHBsYWluXHBsYW luXGYwXGZzMjRccWxcbGFuZzEwMzNcaGljaFxmM IokUhMwSEXyOOztS0tlQcKyVpZtSns9OUTtjMBt XBZzTky8UPFjpBDuZQWByWiwoE8sUQOtlJtxjB6 puOU2LFEoxeOujIKZoU3pNUFRtU9lLaH8ULKpLn t8KTH6DhYooETxoB7= COMMENT (test code = 3359) t2lokJRsXMJhsWEsJUXpVIevrsLrTMDjmSIcY4W zdvfuAWmhUK5mGC7xfYayoYUqcYTrHHNeBzJhb1 ryt119fTOni7kkRSRYxlwrnZb6hMizC44tf6U6I nchS04lvMVaPLJ7HCHqPFIitXZzMQUhDLS7XNZc eWAeQ4cxVCUmBX1ldevyGVnnTOivKOHglTZ0PDL xwAImV6WkJLKwOYasGLKyhvh7NnOnKg6yiGBsqO lmFQehZXIfUTEpENfcIFKnLxFyFT0ts0Fkz2P7L RPzfH0oaMM1JPOprlF8mMV0KYUqBUymNBM0 CPT Code(s) (test code = 3357) f9mecAVnGQRfeVFvEGVgVEgsfuAdOCAprCBz Z3B yubkbJBioIS8oXE7utZqriVFngQKaYQMdYvDrn6 mac173xBBpa8flVOAXqdogkMp4lGlpY69fk9E2B tlaB13kbCOtXLN2JGTqTEPikWAwETVsTHN3APQa aNYsH5peHYOoMR9wiobjAVghKTmdQYOcdTR0PXL tcPBeN1VqWWHsDCfwXDSslfk7XlGvHh2lwAHftH kjIHtnBCTeCLQvXPbvMDQpFqGpABajUJA5F5hqQ XJ9 GROSS DESCRIPTION (test code = t7qmuZLjDHGrwJYHYDLhNLSfRE9hrEihiOj4 cGd [id number]) jVNJijlS7jASgFIafm0gnBSM9j1typdDEYlulGE DgLK1kFBquAKPeLA0nSlYrDKToYoIcLXXyfDYhq pAoJaWdWVBsuFNwqYI2EHOgMJ2vjvbqMMlnUYcz SHNfukU3SCZsnXBsW9BnKLJpHV9pfztdHXO3UNK RFkuqXs2ioLNqkZbtIaPfJeOcYCPtUZQqCXWglS puNWNyZQw8gV6WRwodU60nt6A8Bdn8PRSnAOWpE 5SlQN2wSZIbtQNlK79LXmjhZCY1PZSEKkpgYpfq yElgt4RllBExAAJzQBqpoFDnJFIyIGWiRUkpFiF GMrKiMvM6Ppp0TNG0GzN0KHi7GXKRJKPqAQN1KW xvYgW7GFg2GWArHI4aVAblxYAyJBtlAdmyQMbbU 355MWekJHTtL6McN5GaAZqoWvLlZMjeUXCdIUXa INfcWXHzE1SZQCHwUBW4Gzp5MNWpZCz0TDzeT5A OXHEnGOD6OVB0ZqIrEtP8VKc2LBEOHv8iMyU1GL S5KKD9ZZM3KUGlMDoerLOtGJnpy5UfYgUdNDEnC SrpveK6UPQsysIdFIdsfLsiqP7zVdHyKbPVTlCQ o8g6kHtqO84jd86oPBLSmqNvn5TudvHfRWQuwkQ FUhyyJUWoPX0EJFPhAWhsIWYcHpKrrXRzZ2mlHD NtB81yv2ZKw2XhDD9ROIm9fyXwkuzmyT3zAIQmy mRcDJgnN7FySGWwHnVsRgPdGLv5XZPycV6pDn4s vCFpuP4aqXYxUHfqUFJ1qZVzEBKruAqnirDyrjD gGO7vNKNnQEVsU8JcFXTfL40cDREexV5fUSTmMU 8oVSHvg7q7lHosB04iv87dzPgbJWTcGIl9ArAaG C4orrKiv0McObyzcPA4JcFqe72emTF2niRrVjJa CDHnpuHsd5N2ENDjx5J4AMOxgvDdjQFfyEAiAXM atAPcyrfoaHVwvD8uIF7fBILpCPxbJXqyZGN4JP I3FXDklETuv3xuqsxqb9wtY6jsBEEaPFL9Ed7yl KNiNCTygvW9r9AcKDzbWICqNxdaYILxGEagbCOv MF4RHSPmZuVnKQLwX4rpZMPpDQ7YJZDcWGrwrgM uVR4WZZMwbVMZKAP9ZM3mQPanIJCtU4HoS5Htvz H4AXGwmoVUHagvRlmgyUisq3SzkAAlTKKzMIqzm GWaMPFxHDIyFHeaNzRCWmQpBwJ7Dvn7JMB1FdE6 HZx7YPJOCnCdDpJuGbPzTUj4RpSbUOs2ZGo7WYo JGjD5Yzj7Xmu5QdDsWMQ8ZoTeYYp3HQOeJOtjoi KhNWtcJvqcZRlyW69ezTYoSJudTcOkKXyfmLbwL NKiWIM2OE4LCy0uRD8jxJDsLHXmcY3gXF1sV8kb pX7wLTvzLMYgAHsuuKSxPFYNFypcvARwimnxiZX mpVvdtkKnICRikBPBDTW1DY1pQZDBZmyogLGbYH DrkRpeMYumsO8oJJOlBsEkETNcU8grSgZoUM6LF AUtXWxhliRnYBYbY7IadxMnLWapIEPmar7ucTgi WIoeNvLcUSFlb4f7hDDnTDWkBH81Q4LavlYxDAo gbWVkaWNhbCByZWNvcmQgbnVtYmVyIGFuZCIgcG 5hzIWgAJQrzO5qMWK1UxImHIwbPXSrhHhft5duG BBvs3MhnSSnV99pu9gpiYWxe0LjOxA2MI9hi34h qFP2uXApbZCqGoMhH75ljgEtzKYms0DpqU0eBNR gPOXzPKNaTIIuyHZtjoGkzuBtiLYhgVFgeL8cse Wdz38bGGfnnNLlPTPeZXDyuHFtpTA8NYBneG0im B98mxAyfwLGYM2ynPAwDN2WTVZwKWfqtBcgNSYt TPIFKgllAPQlEWztg4DeMUxbpYagPJQkFuToSUd kV3GrXQLhMyQlXXrfMOQpG86cr8CIy0Gyo7krwJ wyd4MnrZFhVR3xbDLqEG7Af9nmSYWjmSIhHIY6B Rlid0yhLOsuXGA6VPEjAzZaZMTvDW0CWyJpAZy8 Vcm2ZSHzVHz2BQz0QV4EFfKfIAVcDPXjWaX5NeP kEJw4PFwuNE6ZLDfyRAtsPfJ7QRJ0ODzaKuObMK SyMcFnTZLdOGZrLCszjDZmJK6zaHqePJDvCIPkZ EU9BQHibIQMz1FtXINxRVoECbWBEKF8URmalLXn VZ9KPHKlziJdHFspsRpigQ9faKPxA7xsMtAvEol lcGljTmVzdERvYzEgDQpcbHRycGFyXGxpbjBccm kxXDejCfLyCTRlxYFGt3AfZKQRRirmucKuKNImi pNSEgpjAhTfEYUoK7sjGmSmNIlSLIKusVIwGDFm iqUom4IbHCjtsrKqXRDvoGSbRGyjoGvouGG2wIG ezJTsES3tXYJjFTAzG8DbBCJxP12aBRNbrD3bSI WgSJ6fKLBsBDD9GAmtaM4wjJKnPrwhuOH6XiQly 77feIB4rgUrPdJnCKHqxhVuGAMynTngYSGugBsn DC3rKFN6phvuFjBjVsCxfPUzSuwecABnRqvaM19 uDGHuZQDueAa5tUJbCOY0PV4fl69inVW5zGAswO BxPbSsK14oseOnSwKkWIouMUEffDyaEJzvQJmuh 0NhXKzqSVBrGNPpHTJ1rLXvl8HnZ4jjEU7mrVJw QY75vOJfiUamw1VldXc6oPJpHPWmBHAzsZfqv1O 7RRBceuZUNgtxYFDqLVoDQDM9oV2nDCCeONE4QB LljvBASyBsJtONaANyuYTtWDYgJTruWE70u7anV JCxGEuWLtfvPVUms3y8cJelgF4xTZAuQ7ExEM9k KGOsqvbudUMaFFB4sZ5yUCExPZBlaiCOZfcfUWV bNPdBvI0uGZCcGrurwwjsUPHLKVoAK6UBNZalRB UnUKfnE0LiJRYzwSSlQG8UIKFhgoMFVxksAQTjF FDnfHDIt8OlQQASDljvSdCqOnIbQiVHOtfjqNct QjTwySTbKwI8RZXozVWlBRE9ZS7hhNspEZIqO4O cI3TwpvU0TAEmiiBTWdywRGRxEV4LfY== MICROSCOPIC DESCRIPTION (test code = o8qldUUyVQPnzLOcBBRgQBfvfeJoRI AunHXmY3O 3371) elutrSRyhFM6sWZ8ekQwxpVMksFCoPPBwPvOsu0 vsq115fNGms8odABEIvbsxwTm9oPfkR10ic3I0M ykyV43xxIXhVUC6MJNhISGhnHOxLZWcGKO7ZFPf xODcC2nmAEMfDU6uesspUWwgGQrcVDCxiXG6RRZ gnQWjU2WjIVNvVJwqJYZnbsh0HaFiRq7udZLsjZ kiDDzhHKWyGPXiCCfjANWmOsJfXAtcas5eV83se WMgYXNzZXNzbWVudCBzdWJzdGFudGlhdGVzIHRo ZDBuDs81APMtyMLhmt8njVSrPUogDVD0 Gross assessment was performed at ([facility], code = 2777) Department of Pathology, [address] [place] [id number], Technical component was performed at [facility] er, (test code = 2778) Department of Pathology, [address] [place] [id number], Professional component was performed at [facility] enter, (test code = 2779) Department of Pathology, [address] [place] [id number], [facility] [id number] 13:49:30Surgical Pathology Report Case: [id number] Authorizing Provider: Keo Heredia MD Collected: 12/25/2022 02:10 PM Ordering Location: [address] Received: 12/25/2022 04:33 PM Service Pathologist: Triston Armstrong MD Specimens: A) - Polyp, Colon - Transverse, polyp via hot snare B) - Polyp,Colon - Sigmoid, polyp via hot snare C) - Rectal, polyp via hot snare A. COLON, TRANSVERSE, POLYPECTOMY: - TUBULAR ADENOMAB. COLON, SIGMOID, POLYPECTOMY: -TUBULAR ADENOMAC. RECTUM, POLYPECTOMY: -TUBULOVILLOUS ADENOMA Signing Pathologist Direct Phone Line: [phone] signed by Triston Armstrong MD on 12/28/2022 at 1:49 PMEndoscopy report was reviewed. [id number]. Polyp, Colon - TransverseReceived in formalin labeled with patient's name, medical record number and "polyp, colon- transverse biopsy"consists of 2 loo soft tissue fragment measuring up to 1.3 cm in greatest dimension, which are submitted in toto in A1.B. Polyp, Colon - SigmoidReceived in formalin labeled with patient's name, medicalrecord number and" polyp, colon-sigmoid biopsy" consists of 3 loo soft tissue fragment measuring up to 0.9 cm in greatest dimension, which are submitted in toto in B1.C. RectalReceived in formalin labeled with patient name, medical record number and "rectal polyp biopsy" consists of a loo sessile polyp measuring 1.3 x 0.9 x 0.9 cm, and multiple loo soft tissue fragments. The polyp is inked green and the specimen is entirely submitted as follows:Section code:C1: Smaller fragmentsC2: 1 polyp, inked green, serial sectioned LAYLA Bowling (ASCP) Microscopic assessment substantiates the above diagnosis. [facility], Department of Pathology, [address] [place] [address], [facility], [address] [place] [address], [facility], [facility], [address] [place] [address], ITTFY MET[employer]IC [id number] 04:54:17 Test Item Value Reference Range Interpretation [...] not appl icable for dialysis patien ts Web Application Tester ID - [id number] 04:54:17 Test Item Value Reference Range Interpretation Comments MAGNESIUM (BEAKER) (test code = 1.8 mg/dL 1.6-2.6 627) Web Application Tester ID - MARCOCBC W/PLT COUNT & AUTO [id number] 04:36:31 Test Item Value Reference Range Interpretation [...] (test code = 2801) TSH/FREE T4 IF [id number] 01:46:24 Test Item Value Reference Range Interpretation Comments THYROID STIMULATING HORMONE 1.450 uIU/mL 0.350-4.940 (BEAKER) (test code = 772) Web Application Tester ID - BSHIGH SENSITIVITY TROPONIN [id number] 01:25:31 Test Item Value Reference Range Interpretation Comments HIGH SENSITIVITY TROPONIN I (test 62 pg/ml <=35 H code = 1853269) Web Application Tester ID - BSThe LEATHER STITCHER STAT High Sensitivity Troponin-I results should be used in conjunctionwith other diagnostic information such as ECG, clinical observations and information, and patient symptoms to aid in the diagnosis of LA.BASIC METABOLIC [id number] 01:20:36 Test Item Value Reference Range Interpretation [...] not appl icable for dialysis patien ts Web Application Tester ID - [id number] 01:20:36 Test Item Value Reference Range Interpretation Comments MAGNESIUM (BEAKER) (test code = 1.9 mg/dL 1.6-2.6 627) Web Application Tester ID - BSCBC W/PLT COUNT & AUTO [id number] 00:30:47 Test Item Value Reference Range Interpretation [...] (test code = 2801) HIGH SENSITIVITY TROPONIN [id number] 14:26:01 Test Item Value Reference Range Interpretation Comments HIGH SENSITIVITY TROPONIN I (test 84 pg/ml <=35 H code = 0281158) Web Application Tester ID - BSThe LEATHER STITCHER STAT High Sensitivity Troponin-I results should be used in conjunctionwith other diagnostic information such as ECG, clinical observations and information, and patient symptoms to aid in the diagnosis of LA.BASIC METABOLIC [id number] 03:40:20 Test Item Value Reference Range Interpretation [...] not appl icable for dialysis patien ts Web Application Tester ID - [id number] 03:40:20 Test Item Value Reference Range Interpretation Comments MAGNESIUM (BEAKER) (test code = 2.0 mg/dL 1.6-2.6 627) Web Application Tester ID - BSCBC W/PLT COUNT & AUTO [id number] 02:36:41 Test Item Value Reference Range Interpretation [...] H PERCENT (BEAKER) (test code = 2801) [id number] 05:25:43 Test Item Value Reference Range Interpretation Comments MAGNESIUM (BEAKER) (test code = 2.1 mg/dL 1.6-2.6 627) Web Application Tester ID - MMBASIC METABOLIC [id number] 05:25:42 Test Item Value Reference Range Interpretation [...] not appl icable for dialysis patien ts Web Application Tester ID - MMCBC W/PLT COUNT & AUTO [id number] 05:11:30 Test Item Value Reference Range Interpretation [...] PERCENT (BEAKER) (test code = 2801) POC-Glucose [id number] 12:12:31 Test Item Value Reference Range Interpretation Comments POC-Glucose Meter (test 114 mg/dL 70-110 H : TE STED AT [facility] code = 1538) [address] [facility], [address]: Web Application Tester/Techni jordyn ID = [id number] for Tyree Bernal ie Lab Interpretation (test Abnormal code = 30661-6) [facility]-Glucose [id number] 12:12:31 Test Item Value Reference Range Interpretation Comments POC-Glucose Meter (test 114 mg/dL 70-110 H : TE STED AT [facility] code = 1538) [address] [facility], 7[address] 30: Web Application Tester/Techni jordyn ID = [id number] for Tyree Bernal ie Lab Interpretation (test Abnormal code = 96910-6) [facility]-GLUCOSE [id number] 12:12:31 Test Item Value Reference Range Interpretation Comments POC-GLUCOSE METER 114 mg/dL 70-110 H : TESTED A T [facility] 6720 (BEAKER) (test code = [facility] Olga [facility], 1538) [address]: Web Application Tester/Techni jordyn ID = [id number] for Adrienne Man BASIC METABOLIC [id number] 04:44:44 Test Item Value Reference Range Interpretation [...] not appl icable for dialysis patien ts Web Application Tester ID - [id number] 04:44:44 Test Item Value Reference Range Interpretation Comments MAGNESIUM (BEAKER) (test code = 2.1 mg/dL 1.6-2.6 627) Web Application Tester ID - MMCBC W/PLT COUNT & AUTO [id number] 04:17:52 Test Item Value Reference Range Interpretation [...] PERCENT (BEAKER) (test code = 2801) U/S, [id number] 15:17:00Laterality?->LeftReason for exam:->Known left plefLabs to be Ordered:->CytologyLabs to be Ordered:- >Glucose+LDH+ProteinLabs to be Ordered:->Body Fluid Culture (w/Gram Stain, C\\T\\S)Labs to be Ordered:->Cell CountLabs to be Ordered:->Fungal Culture [facility] 1955 Sex: MFINAL REPORT Ultrasound of the chest CLINICAL HISTORY: Evaluate pleural effusionfor thoracentesis. DISCUSSION: Sonographic evaluation of the left chest was performed to evaluate for possible thoracentesis. Only a trace amount of left-sided pleural effusion is identified. IMPRESSION:Minimal left-sided pleural effusion, insufficient for safe thoracentesis. Signed: Ede Richards MDReport Verified Date/Time: 12/23/2022 15:17:37 Reading Location: [address] Ultrasound Reading Room BASI METABOLIC [id number] 08:42:27 Test Item Value Reference Range Interpretation [...] is not appl icable for dialysis patien edwin [id number] 08:36:30 Test Item Value Reference Range Interpretation Comments MAGNESIUM (BEAKER) 2.1 mg/dL 1.6-2.6 Specimen slightly (test code = 627) hemolyzed CBC W/PLT COUNT & AUTO [id number] 04:56:56 Test Item Value Reference Range Interpretation [...] H PERCENT (BEAKER) (test code = 2801) PET/CT, SKULL BASE TO MID-THIGH [id number] 19:39:00Reason for Exam:->To rule out mesothelioma [facility] 1955 Sex: MFINAL REPORT EXAMINATION: FDG-PET/CT, 12/19/2022 3:40 AM CLINICAL HISTORY: 67-year-old male, rule out mesothelioma. COMPARISON: No recent study available for comparison. TECHNIQUE:Radiopharmaceutical: F-18 FluorodeoxyglucoseAdministered activity: 12.0 mCiRoute of administration: Intr avenously via the left antecubital veinLocalization time: 105 minutesScan extent: Skull base to the proximal thighsAdditional imaging: NoneSerum blood glucose: 138 mg/dlCPT Code: 57161 FINDINGS:Head and Neck: No suspicious FDG avid [...] left-sided exudative pleural effusion. Signed: Ted Guillen MDReport Verified Date/Time: 12/22/2022 19:39:47 POCT-GLUCOSE [id number] 14:04:02 Test Item Value Reference Range Interpretation Comments POC-GLUCOSE METER 138 mg/dL 70-110 H : TESTED A T [facility] 6720 (BEAKER) (test code = [facility], 1538) [address]: Web Application Tester/Techni jordyn ID = [id number] for Nyla Perla MRSA [id number] 09:59:55 Test Item Value Reference Range Interpretation Comments Result (test code = 6463-4) No MRSA isolated [facility] [id number] 09:59:55 Test Item Value Reference Range Interpretation Comments Result (test code = 6463-4) No MRSA isolated [facility] [id number] 09:59:55 Test Item Value Reference Range Interpretation Comments CULTURE (BEAKER) (test code No MRSA isolated = 1095) [id number] 04:05:59 Test Item Value Reference Range Interpretation Comments MAGNESIUM (BEAKER) (test code = 2.1 mg/dL 1.6-2.6 627) Web Application Tester ID - OSCAR WBASIC METABOLIC [id number] 04:05:58 Test Item Value Reference Range Interpretation [...] not appl icable for dialysis patien ts Web Application Tester ID - OSCAR WCBC W/PLT COUNT & AUTO [id number] 03:46:41 Test Item Value Reference Range Interpretation [...] Echo W/Doppler(CW/PW/Color)2022-12-21 16:31:48Ejection FractionSLEH ECHO [facility] Echo W/Doppler(CW/PW/Color)2022-12-21 16:31:48Ejection FractionSLE ECHO [id number] 14:53:12 Test Item Value Reference Range Interpretation Comments PROTIME (BEAKER) (test code = 13.8 seconds 11.9-14.2 759) INR (BEAKER) (test code = 370) 1.12 <=5.90 RECOMMENDED COUMADIN/WARFARIN INR THERAPY RANGESSTANDARD DOSE: 2.0 - 3.0 Includes: PROPHYLAXIS for venous thrombosis, systemic embolization; TREATMENT for venous thrombosis and/or pulmonary embolus.HIGH RISK: Target INR is 2.5-3.5 for patients with mechanical heart valves.[id number] 13:28:03 Test Item Value Reference Range Interpretation Comments MAGNESIUM (BEAKER) (test code = 2.0 mg/dL 1.6-2.6 627) Web Application Tester ID - JSBASIC METABOLIC [id number] 13:28:02 Test Item Value Reference Range Interpretation [...] not appl icable for dialysis patien ts Web Application Tester ID - JSCBC W/PLT COUNT & AUTO [id number] 08:50:17 Test Item Value Reference Range Interpretation [...] (BEAKER) (test code = 2801) VANCOMYCIN LEVEL, [id number] 11:00:53 Test Item Value Reference Range Interpretation Comments VANCOMYCIN TROUGH (BEAKER) (test 15.2 ug/mL 10.0-20.0 code = 522) Web Application Tester ID - EDRAD, CHEST, 1 VIEW, NON [id number] 13:55:00Reason for exam:- >evaluate reported loculated pleural effusion, leftShould this be performed at the bedside?->Yes [facility] 1955 Sex: MFINAL REPORT EXAMINATION: RAD, CHEST, 1 VIEW, NON DEPT. INDICATION: 67-year-old male with left loculated pleural effusion. COMPARISON: None. FINDINGS:The cardiac silhouette is normal in size. The thoracic vasculature is within normal limits. Mild bibasilar atelectasis. Small left pleural effusion. No pneumothorax. No acute osseous abnormality. Visualized soft tissues are unremarkable. IMPRESSION:Small left pleural effusion. Signed: Rubia [facility] Verified Date/Time: 12/19/2022 13:55:56 Reading Location: [facility] C013X Ortho Consult Reading Room OSMOLALITY, [id number] 07:27:48 Test Item Value Reference Range Interpretation Comments OSMOLALITY, SERUM (BEAKER) (test 282 mOsm/kg 275-295 code = 615) BASIC METABOLIC [id number] 07:16:16 Test Item Value Reference Range Interpretation [...] not appl icable for dialysis patien ts Web Application Tester ID - [id number] 07:16:16 Test Item Value Reference Range Interpretation Comments MAGNESIUM (BEAKER) (test code = 1.9 mg/dL 1.6-2.6 627) Web Application Tester ID - [id number] 07:16:16 Test Item Value Reference Range Interpretation Comments PHOSPHORUS (BEAKER) (test code = 4.2 mg/dL 2.3-4.7 604) Web Application Tester ID - MMVANCOMYCIN LEVEL, [id number] 07:15:55 Test Item Value Reference Range Interpretation Comments VANCOMYCIN RANDOM (BEAKER) (test 9.4 ug/mL code = 523) Reference Range: No NormalsOperator ID - MMCBC W/PLT COUNT & AUTO [id number] 06:38:56 Test Item Value Reference Range Interpretation [...] % 0.00-1.00 PERCENT (BEAKER) (test code = 1811)
[2023-02-22 12:57] LABS: Absolute Lymphocytes (CBC) 2.3 K/uL (0.7-4.9); Lymphocytes % 16.6 % (15.3-44.8); MCV 88.9 fL (80-100); MPV 8.9 fL (7.6-11.3); RBC Red Blood Cell Count 4.84 M/uL (4.33-5.43)
[2023-02-22 13:23] LABS: Albumin 3.9 g/dL (3.4-5.0); Bilirubin Direct 0.2 mg/dL (0-0.2); Bilirubin Indirect, Calculated 0.7 mg/dL (0.2-0.8); Bilirubin Total 0.9 mg/dL (0.2-1.0); Magnesium 2.2 mg/dL (1.6-2.4); Potassium 3.8 mEq/L (3.5-5.1); Protein, Total 7.2 g/dL (6.4-8.2); Thyroid Stimulating Hormone 1.16 uIU/mL (0.358-3.740); Troponin High Sensitivity 8.6 pg/mL (<58.9)
--- NOTE | 2023-02-22 13:45 | RAD REPORT ---
EXAM DESCRIPTION: RAD - Chest Single View - 02/22/2023 1:33 pm CLINICAL HISTORY: bradycardia Chest pain. COMPARISON: Chest Single View dated 12/31/2022; Chest Single View dated 12/18/2022; Chest Single View dated 11/24/2022; Chest Single View dated 11/10/2022 FINDINGS: Portable technique limits examination quality. Mild interstitial pulmonary edema seen. Small left pleural effusion. The heart is mildly enlarged in size. No displaced fractures. IMPRESSION: Mild CHF.
--- NOTE | 2023-02-22 14:03 | EDPHYS ---
Physician Documentation [facility] Name: Randolph Mckeon Age: 67 yrs Sex: Male : 1955 Arrival Date: 02/22/2023 Time: 12:17 Bed 2 Private MD: ED Physician Gurpreet Arshad HPI: 02/22 13:10 This 67 yrs old Male presents to ER via EMS with complaints of low heart rate. rt 13:10 Patient presents to the ED with reported low heart rates. Patient reports having rt lightheadedness today as well as a chest tightness. Patient states that he checked his heart rate this morning, noted that it was 37 bpm. Of note, the patient had a stress test yesterday. He denies other acute complaints at this time. Patient does take metoprolol. Symptoms are moderate severity, no other aggravating or alleviating factors.. Historical: - Allergies: 12:24 No Known Allergies; kc6 - PMHx: 12:24 CHF; COPD; Hypertension; Pneumonia; kc6 - PSHx: 12:24 cyst removal on lower left limb; kc6 - Immunization history:: Client reports having NOT received the Covid vaccine. Flu vaccine is not up to date. - Social history:: Smoking status: Patient reports the use of cigarette tobacco products, smokes one pack cigarettes per day. - Family history:: not pertinent. ROS: 13:10 Constitutional: Negative for fever, chills, and weight loss, Eyes: Negative for injury, rt pain, redness, and discharge, Respiratory: Negative for shortness of breath, cough, wheezing, and pleuritic chest pain, Abdomen/GI: Negative for abdominal pain, nausea, vomiting, diarrhea, and constipation, MS/Extremity: Negative for injury and deformity, Skin: Negative for injury, rash, and discoloration, Psych: Negative for depression, anxiety, suicide ideation, homicidal ideation, and hallucinations. 13:10 Cardiovascular: Positive for Chest tightness, negative for over pain, deep. 13:10 Neuro: Positive for near syncope, Negative for altered mental status. Exam: 13:10 Constitutional: This is a well developed, well nourished patient who is awake, alert, rt and in no acute distress. Head/Face: Normocephalic, atraumatic. Chest/axilla: Normal chest wall appearance and motion. Nontender with no deformity. No lesions are appreciated. Cardiovascular: Regular rate and rhythm with a normal S1 and S2. No gallops, murmurs, or rubs. Normal PMI, no JVD. No pulse deficits. Respiratory: Lungs have equal breath sounds bilaterally, clear to auscultation and percussion. No rales, rhonchi or wheezes noted. No increased work of breathing, no retractions or nasal flaring. Abdomen/GI: Soft, non-tender, with normal bowel sounds. No distension or tympany. No guarding or rebound. No evidence of tenderness throughout. Skin: Warm, dry with normal turgor. Normal color with no rashes, no lesions, and no evidence of cellulitis. MS/ Extremity: Pulses equal, no cyanosis. Neurovascular intact. Full, normal range of motion. Neuro: Awake and alert, GCS 15, oriented to person, place, time, and situation. Cranial nerves II-XII grossly intact. Motor strength 5/5 in all extremities. Sensory grossly intact. Cerebellar exam normal. Normal gait. Psych: Awake, alert, with orientation to person, place and time. Behavior, mood, and affect are within normal limits. 13:10 ECG was reviewed by the Attending Physician. Vital Signs: 12:22 BP 126 / 60; Pulse 63; Resp 21 S; Temp 98(O); Pulse Ox 99% on R/A; Weight 99.79 kg (R); kc6 Height 5 ft. 11 in. (R); Pain 0/10; 13:19 BP 122 / 58; Pulse 63; Resp 21; Pulse Ox 96% on R/A; kc6 14:25 BP 103 / 59; Pulse 66; Resp 16 S; Pulse Ox 99% on R/A; kc6 16:20 BP 109 / 64; Pulse 63; Resp 18 S; Pulse Ox 93% on R/A; kc6 12:22 Body Mass Index 30.68 (99.79 kg, 180.34 cm) [facility] 12:22 Pain Scale: Adult kc6 MDM: 12:19 Patient medically screened. rt 14:03 Differential Diagnosis Bradycardia due to beta-sloan, heart block, electrolyte rt disturbance, hypothyroidism. Data reviewed: vital signs, nurses notes, lab test result(s), EKG, radiologic studies. Consideration of Admission/Observation Patient was admitted/placed on observation. Management of patient was discussed with the following: Lead Athlete: Recommends holding metoprolol and observation in the hospital. Counseling: I had a detailed discussion with the patient and/or guardian regarding: the historical points, exam findings, and any diagnostic results supporting the discharge/admit diagnosis, lab results, the need for further work-up and treatment in the hospital. 02/22 12:27 Order name: Basic Metabolic Panel; Complete Time: 13:40 rt 02/22 12:27 Order name: CBC with Diff; Complete Time: 13:40 rt 02/22 12:27 Order name: LFT's; Complete Time: 13:40 rt 02/22 12:27 Order name: Magnesium; Complete Time: 13:40 rt 02/22 12:27 Order name: NT PRO-BNP; Complete Time: 13:40 rt 02/22 12:27 Order name: Troponin HS; Complete Time: 13:40 rt 02/22 12:27 Order name: TSH; Complete Time: 13:40 rt 02/22 14:49 Order name: Magnesium EDTX 02/22 14:49 Order name: Phosphorus EDMS 02/22 14:49 Order name: T4 Free EDMS 02/22 14:49 Order name: Thyroid Stimulating Hormone EDMS 02/22 14:49 Order name: Urinalysis w/ reflexes EDMS 02/22 14:49 Order name: Basic Metabolic Panel EDMS 02/22 14:49 Order name: Basic Metabolic Panel EDMS 02/22 14:49 Order name: CBC with Automated Diff EDMS 02/22 14:49 Order name: CBC with Automated Diff EDMS 02/22 14:49 Order name: NT PRO-BNP EDMS 02/22 14:49 Order name: NT PRO-BNP EDMS 02/22 12:27 Order name: XRAY Chest (1 view); Complete Time: 13:49 rt 02/22 12:27 Order name: EKG; Complete Time: 12:28 rt 02/22 14:49 Order name: Heart Healthy EDMS 02/22 12:27 Order name: Cardiac monitoring; Complete Time: 12:34 rt 02/22 12:27 Order name: EKG - Nurse/Tech; Complete Time: 12:34 rt 02/22 12:27 Order name: IV Saline Lock; Complete Time: 12:34 rt 02/22 12:27 Order name: Labs collected and sent; Complete Time: 12:34 rt 02/22 12:27 Order name: O2 Per Protocol; Complete Time: :34 rt 02/22 12:27 Order name: O2 Sat Monitoring; Complete Time: :34 rt EC:10 Rate is 63 beats/min. Rhythm is regular, Sinus Rhythm with Has PVC every third rt heartbeat. QRS [place] is Normal. [place] interval is normal. QRS interval is normal. QT interval is normal. No Q waves. Interpreted by me. Administered Medications: No medications were administered Disposition Summary: 02/22/23 14:02 Hospitalization Ordered Hospitalization Status: Observation rt Provider: Timoteo Fischer rt Location: Telemetry/MedSurg (observation) rt Condition: Stable rt Problem: new rt Symptoms: have improved rt Bed/Room Type: Standard rt Room Assignment: 405(02/22/23 15:30) dw Diagnosis - Symptomatic Bradycardia rt Forms: - Medication Reconciliation Form rt - SBAR form rt Signatures: Dispatcher [employer] Sally Aleman RN RN Rosemarie Burgess RN RN kc6 Gurpreet Arshad MD MD rt Corrections: (The following items were deleted from the chart) 15:30 14:02 rt dw
--- NOTE | 2023-02-22 14:03 | ER ---
Nurse's Notes [facility] Name: Randolph Mckeon Age: 67 yrs Sex: Male : 1955 Arrival Date: 02/22/2023 Time: 12:17 Bed 2 Private MD: Diagnosis: Symptomatic Bradycardia Presentation: 02/22 12:22 Chief complaint: EMS states: pt checked his heart rate via pulse ox today and noticed kc6 it was in the 40's. pt denies \E\chest pain, reports feeling lightheaded. pt states he had a stress test done yesterday, results pending. Coronavirus screen: At this time, the client does not indicate any symptoms associated with coronavirus-19. Ebola Screen: No symptoms or risks identified at this time. Initial Sepsis Screen: Does the patient meet any 2 criteria? No. Patient's initial sepsis screen is negative. Does the patient have a suspected source of infection? No. Patient's initial sepsis screen is negative. Risk Assessment: Do you want to hurt yourself or someone else? Patient reports no desire to harm self or others. Onset of symptoms was February 22, 2023. 12:22 Method Of Arrival: EMS: [facility] kc6 12:22 Acuity: YANNICK 3 kc6 Triage Assessment: 12:24 General: Appears in no apparent distress. comfortable, Behavior is calm, cooperative, kc6 appropriate for age. Pain: Denies pain. Neuro: Reports dizziness, lightheadedness. Cardiovascular: Heart tones S1 S2 present Capillary refill < 3 seconds. Respiratory: Airway is patent Trachea midline Respiratory effort is even, unlabored, Respiratory pattern is regular, symmetrical. GI: No signs and/or symptoms were reported involving the gastrointestinal system. : No signs and/or symptoms were reported regarding the genitourinary system. Derm: No signs and/or symptoms reported regarding the dermatologic system. Skin is intact, Skin is pink, warm \T\ dry. Musculoskeletal: No signs and/or symptoms reported regarding the musculoskeletal system. Circulation, motion, and sensation intact. Capillary refill < 3 seconds, Range of motion: intact in all extremities. Historical: - Allergies: 12:24 No Known Allergies; kc6 - PMHx: 12:24 CHF; COPD; Hypertension; Pneumonia; kc6 - PSHx: 12:24 cyst removal on lower left limb; kc6 - Immunization history:: Client reports having NOT received the Covid vaccine. Flu vaccine is not up to date. - Social history:: Smoking status: Patient reports the use of cigarette tobacco products, smokes one pack cigarettes per day. - Family history:: not pertinent. Screenin:26 [facility] ED Fall Risk Assessment (Adult) History of falling in the last 3 months, kc6 including since admission No falls in past 3 months (0 pts) Confusion or Disorientation No (0 pts) Intoxicated or Sedated No (0 pts) Impaired Gait No (0 pts) Mobility Assist Device Used No (0 pt) Altered Elimination No (0 pt) Score/Fall Risk Level 0 - 2 = Low Risk Oriented to surroundings, Maintained a safe environment, Educated pt \T\ family on fall prevention, incl call for assistance when getting out of bed, Assessed \T\ reinforced patient's understanding of fall precautions, Hourly rounding (assess needs \T\ fall precautionary measures) done. Abuse screen: Denies threats or abuse. Denies injuries from another. Nutritional screening: No deficits noted. Tuberculosis screening: No symptoms or risk factors identified. Assessment: 12:24 Reassessment: please see triage assessment. kc6 13:24 Reassessment: Patient appears in no apparent distress at this time. No changes from kc6 previously documented assessment. Patient and/or family updated on plan of care and expected duration. Pain level reassessed. Patient is alert, oriented x 3, equal unlabored respirations, skin warm/dry/pink. 14:25 Reassessment: Patient appears in no apparent distress at this time. No changes from kc6 previously documented assessment. Patient and/or family updated on plan of care and expected duration. Pain level reassessed. Patient is alert, oriented x 3, equal unlabored respirations, skin warm/dry/pink. 15:25 Reassessment: Patient appears in no apparent distress at this time. No changes from kc6 previously documented assessment. Patient and/or family updated on plan of care and expected duration. Pain level reassessed. Patient is alert, oriented x 3, equal unlabored respirations, skin warm/dry/pink. 16:20 Reassessment: Patient appears in no apparent distress at this time. No changes from kc6 previously documented assessment. Patient and/or family updated on plan of care and expected duration. Pain level reassessed. Patient is alert, oriented x 3, equal unlabored respirations, skin warm/dry/pink. Vital Signs: 12:22 BP 126 / 60; Pulse 63; Resp 21 S; Temp 98(O); Pulse Ox 99% on R/A; Weight 99.79 kg (R); kc6 Height 5 ft. 11 in. (R); Pain 0/10; 13:19 BP 122 / 58; Pulse 63; Resp 21; Pulse Ox 96% on R/A; kc6 14:25 BP 103 / 59; Pulse 66; Resp 16 S; Pulse Ox 99% on R/A; kc6 16:20 BP 109 / 64; Pulse 63; Resp 18 S; Pulse Ox 93% on R/A; kc6 12:22 Body Mass Index 30.68 (99.79 kg, 180.34 cm) kc6 12:22 Pain Scale: Adult [facility] ED Course: 12:18 Patient arrived in ED. em1 12:19 Gurpreet Arshad MD is Attending Physician. rt 12:24 Triage completed. kc6 12:24 Arm band placed on. kc6 12:25 Maintain EMS IV. Dressing intact. Good blood return noted. Site clean \T\ dry. Gauge \T\ sean 6 site: 22G L Wrsit. 12:26 Patient has correct armband on for positive identification. Bed in low position. Call [facility] light in reach. Side rails up X 1. 12:34 Rosemarie Whaley RN is Primary Nurse. kc 13:35 XRAY Chest (1 view) In Process Unspecified. EDMS 14:02 Timoteo Fischer is Hospitalizing Provider. rt 16:45 No provider procedures requiring assistance completed. Patient admitted, IV remains in [facility] place. Administered Medications: No medications were administered Medication: 16:46 VIS not applicable for this client. kc Outcome: 14:02 Decision to Hospitalize by Provider. rt 16:45 Admitted to Med/surg accompanied by tech, via wheelchair, room 405, with chart, Report kc called to SAMEER Albarran 16:45 Condition: stable 16:45 Instructed on the need for admit. 16:46 Patient left the ED. [facility] Signatures: Dispatcher [employer] EDMS Javier Forrest em1 Rosemarie Whaley RN RN kc Turkington, Gurpreet, MD MD rt
[2023-02-22] MEDS ORDERED: ACETAMINOPHEN 325 MG TABLET PO PRN (14:39)
[2023-02-22] MEDS ORDERED: HYDROCODONE/APAP 10/325 TAB PO PRN (14:39)
[2023-02-22] MEDS ORDERED: ONDANSETRON 4 MG/2 ML VIAL IV PRN (14:46)
--- NOTE | 2023-02-22 15:05 | P.HP ---
Certification for Inpatient Patient admitted to: Observation With expected LOS: <2 Midnights Patient will require the following post-hospital care: None Practitioner: I am a practitioner with admitting privileges, knowledge of patient current condition, hospital course, and medical plan of care. Services: Services provided to patient in accordance with Admission requirements found in Title 42 Section 412.3 of the Code of Federal Regulations Patient History Date of Service: 02/22/23 Reason for admission: Dizziness History of Present Illness: Patient is a 67-year-old male with a past medical history significant for COPD, hypertension, nicotine dependence, paroxysmal A-fib who presents with complaint of dizziness that has been ongoing for the past 4 days. Patient reported that he normally feels dizzy whenever he gets up or changes position. Patient reported associated signs and symptoms of near syncope, headache, cough, chest tightness and palpitations. Patient denies any other signs and symptoms. Symptoms are aggravated or relieved by nothing. Patient decided to present to the hospital for medical evaluation. Of note, patient reported that when he checked his pulse oximetry, his heart rate was 37. Allergies No Known Allergies Allergy (Verified 09/28/22 15:22) Home Medications: Fluticasone/Umeclidin/Vilanter [Trelegy Ellipta 100-62.5-25] 1 each IH DAILY 10/28/20 Propranolol [Inderal*] 10 mg PO BID tab 11/04/20 Tamsulosin [Flomax*] 0.4 mg PO DAILY cap 11/04/20 Albuterol Sulfate [Albuterol Sulfate Hfa] 2 inhaler IH Q4H PRN 08/10/22 Lidocaine 4% Patch [Lidoderm 5% Patch*] 1 patch TOP DAILY patch 09/30/22 Trelegy Ellipta 100-62.5-25 1 inh IH DAILY 09/30/22 Albuterol Neb [Proventil 0.083% Neb Soln] 2.5 mg NEB [id number] #60 amp 10/30/22 Hydrocodone 5/APAP 325 [[place] 5/325*] 1 tab PO Q6H PRN #30 tab 10/30/22 Ipratropium Neb [Atrovent*] 0.5 mg NEB [id number] #60 amp 10/30/22 Thiamine HCl [Vitamin B-1*] 100 mg PO DAILY #30 tab 10/30/22 Amlodipine [Norvasc] 10 mg PO DAILY 02/22/23 Apixaban [Eliquis] 5 mg PO BID 02/22/23 Furosemide [Lasix] 80 mg PO DAILY 02/22/23 Metoprolol Tartrate 25 mg PO DAILY 02/22/23 Potassium Chloride 20 meq PO DAILY 02/22/23 Spironolactone 25 mg PO DAILY 02/22/23 predniSONE [Prednisone*] 10 mg PO DAILY 02/22/23 - Past Medical/Surgical History Diabetic: No -: COPD -: Hypertension -: Alcohol abuse -: Hyponatremia -: Diastolic CHF -: Hernia repair -: left leg wound Psychosocial/ Personal History: Patient is . He lives at home and has home health. - Family History Father -: Heart disease Brother -: Lung disease - Social History Smoking Status: Current every day smoker Smoking therapy provided: Yes Patient receptive to therapy: Yes Alcohol use: Yes CD- Drugs: No Caffeine use: Yes Place of Residence: Home Review of Systems General: Unremarkable Eyes: Unremarkable ENT: Unremarkable Respiratory: Cough Cardiovascular: Chest Pain, Palpitations Gastrointestinal: Unremarkable Genitourinary: Unremarkable Musculoskeletal: Unremarkable Integumentary: Unremarkable Neurological: Other (Dizziness, GALLEGOS, Near Syncope) Physical Examination - Physical Exam General: Alert, In no apparent distress, Oriented x3, Cooperative HEENT: Atraumatic, PERRLA, Mucous membr. moist/pink, EOMI, Sclerae nonicteric Neck: Supple, 2+ carotid pulse no bruit, No LAD, Without JVD or thyroid abnormality Respiratory: Diminished Cardiovascular: No edema, Normal S1 S2 Capillary refill: <2 Seconds Gastrointestinal: Normal bowel sounds, Non-distended, No tenderness Musculoskeletal: No clubbing, No swelling, No tenderness Integumentary: No rashes Neurological: Normal speech, Normal strength at 5/5 x4 extr, Normal tone, Normal affect Lymphatics: No axilla or inguinal lymphadenopathy - Studies Laboratory Data (last 24 hrs) 02/22/23 12:33: WBC 14.00 H, Hgb 13.6, Hct 43.0, Plt Count 219 02/22/23 12:33: Sodium 137, Potassium 3.8, BUN 24 H, Creatinine 1.10, Glucose 96, Magnesium 2.2, Total Bilirubin 0.9, AST 11 L, ALT 17, Alkaline Phosphatase 60 Assessment and Plan - Plan --Symptomatic bradycardia. Nursing Technician consulted. Patient reported that he had a carotid Doppler done in the oil field pipeline supervisor office. Cardiology indicated no need for echocardiogram. Recommended to hold off on metoprolol and observe pat ient overnight. Telemetry to monitor for any malignant arrhythmia. Will await further recommendation from oil field pipeline supervisor. -- Acute on chronic diastolic CHF exacerbation. Chest x-ray indicates mild CHF. BNP-796. Continue diuresis with Lasix. Daily weight and strict I/O. --COPD. Stable. Continue home medications. --Hypertension. Patient currently hypotensive. We will hold off on BP meds. . -- Leukocytosis. WBC- 14.00 . Likely steroid-induced. We will continue to monitor WBC. -- Headache. Tylenol as needed. -- BPH. Continue home medication. --Nicotine dependence. Patient placed on nicotine patch and counseled on tobacco cessation. --Paroxysmal atrial fibrillation. Continue Eliquis. --DVT prophylaxis with Eliquis Discharge Plan: Home Plan to discharge in: 48 Hours - Advance Directives Does patient have a Living Will: No Does patient have a Durable POA for Healthcare: No - Code Status/Comfort Care Code Status Assessed: Yes Physician Review: Patient Assessed, Agree with Above Assessment and Plan Critical Care: No
[2023-02-22 15:55] LABS: Thyroid Stimulating Hormone 0.805 uIU/mL (0.358-3.740)
[2023-02-22 16:20] LABS: Magnesium 2.1 mg/dL (1.6-2.4)
[2023-02-22] MEDS: FUROSEMIDE 40 MG/4 ML VIAL IV SCH (17:09)
[2023-02-22 17:36] VITALS: BMI 30.7
[2023-02-22 18:12] LABS: Specific Gravity 1.009 (1.005-1.030); Urine Bilirubin NEGATIVE (Negative); Urine Blood Negative (Negative); Urine Clarity Clear (Clear); Urine Color Light-Yellow (Yellow); Urine Glucose NEGATIVE (Negative); Urine Protein NEGATIVE (Negative); Urine Urobilinogen Normal (Normal); Urine pH 5.5 (5.0-7.0)
[2023-02-22] MEDS: IPRATROPIUM BROM 0.5MG/2.5ML NEB SCH (19:45)
[2023-02-22] MEDS: ALBUTEROL 2.5 MG/3 ML NEB SOL NEB SCH (19:45)
[2023-02-22] MEDS: APIXABAN 5 MG TABLET PO SCH (21:20)
[2023-02-23] MEDS: ALBUTEROL 2.5 MG/3 ML NEB SOL NEB SCH ×3 (01:20→14:25)
[2023-02-23] MEDS: IPRATROPIUM BROM 0.5MG/2.5ML NEB SCH ×3 (01:20→14:25)
[2023-02-23 05:47] LABS: Absolute Lymphocytes (CBC) 1.7 K/uL (0.7-4.9); Hematocrit 39.7 % (39.6-49.0); Lymphocytes % 17.4 % (15.3-44.8); MCV 88.3 fL (80-100); MPV 8.4 fL (7.6-11.3); RBC Red Blood Cell Count 4.49 M/uL (4.33-5.43)
[2023-02-23 06:06] LABS: Potassium 3.7 mEq/L (3.5-5.1)
--- NOTE | 2023-02-23 07:41 | P.PN ---
Date of Service: 02/23/23 Subjective: HR between 30-40s yesterday, improving (60s) intermittently feels lightheaded after getting up; Recently had metoprolol changed in last ~1 month no chest pain, breathing slowly improving ROS: 10 point ROS as noted above, otherwise negative Physical Exam: GEN: Alert, oriented, NAD HEENT: Normal conjunctiva, sclera anicteric CV: Regular rate and rhythm, trace-1+ edema Pulm: Nonlabored respirations on 2L NC at rest, diminished at bases b/l ABD: Soft, nontender, nondistended MSK: No joint tenderness Integumentary: No rashes Neuro: Normal speech, normal affect vitals reviewed Problem List: Bradycardia Acute on chronic diastolic CHF exacerbation COPD Hypertension Headache BPH Nicotine dependence Paroxysmal A-fib Bradycardia Recently seen at [facility] ~1 month ago Patient reported that he had a carotid Doppler done in the exercise equipment repair technician office; +Stress test done last Wednesday. Cardiology indicated no need for echocardiogram. Legal Associate consulted hold off on metoprolol monitor on telemetry Acute on chronic diastolic CHF exacerbation only uses oxygen at home during the night CXR (02/22): mild CHF BNP: 796 Continue Lasix nebs as needed Leukocytosis likely steroid-induced. - improved COPD Stable. Continue home medications Hypertension. Patient currently hypotensive. We will hold off on BP meds. Headache. Tylenol as needed. BPH. Continue home medication - flomax Nicotine dependence. Patient placed on nicotine patch and counseled on tobacco cessation. Paroxysmal A-fib Continue Eliquis. VTE: Home eliquis Code: Full Dispo: Home
[2023-02-23] MEDS: FUROSEMIDE 40 MG/4 ML VIAL IV SCH ×2 (08:53→16:42)
[2023-02-23] MEDS: APIXABAN 5 MG TABLET PO SCH (08:54)
[2023-02-23] MEDS ORDERED: POTASSIUM CL SA 10 MEQ TAB PO ONE (09:00)
[2023-02-23] MEDS ORDERED: ENOXAPARIN 40 MG/0.4 ML SQ SCH (09:00)
[2023-02-23] MEDS ORDERED: TRELEGY ELLIPTA IH SCH (09:00)
[2023-02-23] MEDS ORDERED: ASPIRIN 81 MG CHEWABLE TABLET PO SCH (09:00)
[2023-02-23] MEDS ORDERED: NICOTINE 21 MG/PAT TD SCH (09:00)
[2023-02-23] MEDS ORDERED: TAMSULOSIN 0.4 MG SR CAP PO SCH (09:00)
[2023-02-23 10:23] VITALS: O2SAT 95
[2023-02-23 12:49] VITALS: BP 109/65; TEMP 97.7
--- NOTE | 2023-02-23 16:13 | P.DS ---
Admission Date: 02/22/23 Discharge Date: 02/23/23 Disposition: ROUTINE DISCHARGE Discharge Condition: GOOD Reason for Admission: Dizziness Consultations: Cardiology - Dr. Sotelo Brief History of Present Illness: 67yo M, PMH: COPD, HTN, CHF, paroxysmal Afib, nicotine dependence. Presented to ED due to dizziness/lightheadedness that has been ongoing for the past 4 days. Symptoms occurred 15-20 feet after getting up from sitting or laying position. Severe enough to feel as though he was almost going to pass out. Symptoms are aggravated or relieved by nothing. Patient decided to present to the hospital for medical evaluation. Of note, patient reported that when he checked his pulse oximetry, his heart rate was 37. Hospital Course: Problem List: Bradycardia Acute on chronic diastolic CHF exacerbation COPD, chronic Hypertension Headache BPH Nicotine dependence Paroxysmal A-fib Patient presented with lightheadedness and heart rate down to the 30s. Labwork was rather unremarkable, Chest x-ray noted some slight pulmonary edema consistent with mild CHF exacerbation. His metoprolol was discontinued and he was monitored on telemetry. He did well, was feeling better, and his heart rate was stable in the 60s. Blood pressure was low-normal ~100-120 systolic. If he feels lightheaded again, to check his blood pressure, if remaining low 100s, to stop amlodipine and follow up with his doctor. Cardiology, Dr. Sotelo was consulted and evaluated the patient. Patient was deemed stable for discharge home. He was instructed to show up to Dr. Sotelo's office tomorrow morning (02/24) for a 9am appointment to see Dr. Sotelo and get his echocardiogram done. Dr. Sotelo recommended stopping metoprolol. Otherwise continue home medications as previously prescribed. Physical Exam: GEN: Alert, oriented, NAD HEENT: Normal conjunctiva, sclera anicteric CV: Regular rate and rhythm, trace edema Pulm: Nonlabored respirations at rest, diminished at bases b/l ABD: Soft, nontender, nondistended Neuro: Normal speech, normal affect Vital Signs/Physical Exam: Temp Pulse Resp BP Pulse Ox 97.7 F 64 16 109/65 94 02/23/23 12:00 02/23/23 12:00 02/23/23 12:00 02/23/23 12:00 02/23/23 12:00 Laboratory Data at Discharge: WBC 9.60 thou/uL (4.3-10.9) 02/23/23 05:32 Hgb 12.8 g/dL (13.6-17.9) L 02/23/23 05:32 Hct 39.7 % (39.6-49.0) 02/23/23 05:32 Plt Count 190 thou/uL (152-406) 02/23/23 05:32 Sodium 135 mEq/L (136-145) L 02/23/23 05:32 Potassium 3.7 mEq/L (3.5-5.1) 02/23/23 05:32 BUN 26 mg/dL (7-18) H 02/23/23 05:32 Creatinine 1.01 mg/dL (0.70-1.30) 02/23/23 05:32 Glucose 112 mg/dL (74-106) H 02/23/23 05:32 Phosphorus 4.0 mg/dL (2.5-4.9) 02/22/23 15:18 Magnesium 2.1 mg/dL (1.6-2.4) 02/22/23 15:18 Total Bilirubin 0.9 mg/dL (0.2-1.0) 02/22/23 12:33 AST 11 U/L (15-37) L 02/22/23 12:33 ALT 17 U/L (16-61) 02/22/23 12:33 Alkaline Phosphatase 60 U/L (45-117) 02/22/23 12:33 Home Medications: Tamsulosin [Flomax*] 0.4 mg PO DAILY cap 11/04/20 Trelegy Ellipta 100-62.5-25 1 inh IH DAILY 09/30/22 Amlodipine [Norvasc*] 10 mg PO DAILY 02/22/23 Apixaban [Eliquis] 5 mg PO BID 02/22/23 Furosemide [Lasix] 80 mg PO DAILY 02/22/23 Potassium Chloride 20 meq PO DAILY 02/22/23 Spironolactone 25 mg PO DAILY 02/22/23 predniSONE [Prednisone*] 10 mg PO DAILY 02/22/23 Physician Discharge Instructions: Patient presented with lightheadedness and heart rate down to the 30s. Labwork was rather unremarkable, Chest x-ray noted some slight pulmonary edema consistent with mild CHF exacerbation. His metoprolol was discontinued and he was monitored on telemetry. He did well, was feeling better, and his heart rate was stable in the 60s. Blood pressure was low-normal ~100-120 systolic. If he feels lightheaded again, to check his blood pressure, if remaining low 100s, to stop amlodipine and follow up with his doctor. Cardiology, Dr. Sotelo was consulted and evaluated the patient. Patient was deemed stable for discharge home. He was instructed to show up to Dr. Sotelo's office tomorrow morning (02/24) for a 9am appointment to see Dr. Sotelo and get his echocardiogram done. Dr. Sotelo recommended stopping metoprolol. Otherwise continue home medications as previously prescribed. Followup: NONE,NONE [Primary Care Provider] - Curtis Sotelo MD [ACTIVE - CAN ADMIT] - (you have a scheduled apointment with the at 9am tomorrow 02/24) Time spent managing pt's care (in minutes): 45
--- NOTE | 2023-02-23 16:16 | CON ---
Date of Consultation: 02/23/2023 Reason For Consultation: Near syncope. History Of Present Illness: A 67-year-old male with history of COPD, hypertension, paroxysmal atrial fibrillation, presented with dizziness and near syncope. He was on metoprolol, was some bradycardic , heart rate as low as mid 30s and blood pressure was low. Since hospitalization, no further dizzy e pisodes. We stopped the metoprolol and his heart rate went up nicely. The patient, however, was com plaining of having intermittent chest pain. No active chest pain at this moment, and his heart enzym es are negative. He had a stress test in my office this past Wednesday and I do not have access to the results yet. Past Medical History: As outlined above in the HPI. Medications: Refer to reconciliation sheet for detailed list. Allergies: NO KNOWN DRUG ALLERGIES. Family History: No premature coronary artery disease or cancer. Social History: He is an active smoker. Does not drink or use any drugs. Review of Systems: All systems reviewed and they were negative except what mentioned in HPI. Physical Examination: Vital Signs: Reviewed. Head and Neck: Pupils are equal, reactive to light. Intact eye movements. No JVD. No cervical lym phadenopathy. Neck is supple. Thyroid is not enlarged. Lungs: Clear to auscultation bilaterally. No rhonchi, rales, or crackles. No accessory muscle use. Heart: Regular rate and rhythm. No extra sounds. Abdomen: Soft, nontender. Bowel sounds positive. No organomegaly. No masses or hernia. No rigidi ty or rebound. Extremities: No edema, clubbing, cyanosis. Intact pulses. Skin: No rash. Neurologic: Alert, awake, oriented x3. No acute focal deficits appreciated. Lymph Nodes: No cervical or axillary lymphadenopathy. Investigations: BUN is 26, creatinine 1. Hemoglobin is 12.8. Assessment/recommendation: 1.Bradycardia likely due to metoprolol. This was stopped and his heart rate is back up and he is as ymptomatic. I will continue Eliquis. If we need to restart beta-sloan, it has to be on a much low er dose, and if he does not tolerate that in the future, especially if goes into atrial fibrillation, then he will need a pacemaker as a backup. 2.Congestive heart failure, chronic and he is euvolemic. Please discontinue IV Lasix and put him on oral 40 mg daily and monitor. In fact, since he has been chest pain free, patient can be released a nd have him follow up with me in the office tomorrow. We will go over the stress test results and ma ke a plan accordingly, but please check 1 troponin before his discharge. 3.Active smoker. He was counseled to quit . SR/MODL Voice ID: [id number] Report ID: [id number]
--- NOTE | 2023-02-24 12:36 | EKG ---
Test Date: 2023-02-22 Test Time: 12:38:10 Open Die Inspector: AM MEASUREMENT RESULTS: Intervals: Rate: 65 MI: 186 QRSD: 86 QT: 400 QTc: 416 [place]: P: 49 MI: 186 QRS: 47 T: 44 INTERPRETIVE STATEMENTS: Sinus rhythm with premature atrial complexes with aberrant conduction Otherwise normal ECG Compared to ECG 12/18/2022 20:57:29 Atrial premature complex(es) now present Aberrant conduction of supraventricular beat(s) now present T-wave abnormality no longer present Electronically Signed On 02-24-23 12:33:39 CDT by Curtis Sotelo
== END 2023-02-23 17:27 | disposition home or self-care (01) ==
LOC: ER 12:17 → ERHOLD 14:38 → 4TH 16:20
PROVIDERS: ADMIT Internal Medicine; ATTEND Hospitalist
DX: R00.1 Bradycardia, unspecified (principal); I50.33 Acute on chronic diastolic (congestive) heart failure; I48.0 Paroxysmal atrial fibrillation; J44.9 Chronic obstructive pulmonary disease, unspecified; I10 Essential (primary) hypertension; F17.210 Nicotine dependence, cigarettes, uncomplicated; D72.829 Elevated white blood cell count, unspecified; R51.9 Headache, unspecified; N40.0 Benign prostatic hyperplasia without lower urinary tract symptoms
CPT/HCPCS: 85025 ×2; 80048 ×2; 36415; 83735 ×2; 84100; 80076; 84443 ×2; 81003; 84484; 84439; 83880 ×2; 71045; 94760; 99285; J1940 ×3; J7613 ×4; J7644 ×4; 93005; G0378

== ENCOUNTER 2023-06-09 12:17 | Observation (INO) | payer OTHER, BC ==
--- OUTSIDE RECORDS SUMMARY | 2023-06-09 12:25 | XMS REPORT | Continuity of Care Document ---
:1955 Author Organization [facility] t Address [address] [place] [address] [place] [id number] Care Team Providers Name Role Phone ADRIAN OROPEZA Attending Clinician Unavailable Jasson ZULUAGA, Wesley Matias Attending Clinician Thad ZULUAGA, Stacey Attending Clinician Jose Enrique ZULUAGA, Adrian Quinones Attending Clinician [phone] Latoya ZULUAGA, Lucas Attending Clinician Sheikh MARGARETH, Keo Patton Attending Clinician WESLEY MENDOZA Admitting Clinician Unavailable Payers Payer Name Policy Type Policy Number Effective Date Expiration Date S regan MEDICARE A B [id number] 2022 00:00:00 [place] [id number] 2022 OS 00:00:00 Problems Condition Condition Condition Status Onset Resolution Last Treating Co mments Source Name Details Category Date Date Treatment Clinician Date COPD COPD Disease Recurre [facility] exacerb[facility] nce 12-28 Audrey kes on on 00:00: Medical 00 [place] Colon Colon Disease Active [facility] polyp polyp -08 [facility] 00 [place] Shortness Shortness Disease Active [facility] of breath of breath -29 [facility] 00:00: Medical 00 Center Allergies, Adverse Reactions, Alerts Allergy Allergy Status Severity Reaction(s) Onset Inactive Treating Comm ents Source Name Type Date Date Clinician NO KNOWN Allergy Active [facility] Social History Social Habit Start Date Stop Date Quantity Comments Source History of tobacco Passive smoker [facility] use [facility] Center History [facility] Transport Non-Med Medical Center Alcohol intake 2022-12-25 2022-12-25 Ex-drinker [facility] 00:[facility]00 00:00:00 (finding) Medical Center Exposure to 2022-12-09 2022-12-[address] [facility] SARS-CoV-2 (event) 00:00:00 03:57:00 Medica [facility] Cigarettes smoked 2022-12-19 2022-12-[address] [facility] current (pack per 00:00:00 00:00:00 Medical Center day) - Reported Cigarette 2022-12-19 2022-12-[address] [facility] pack-years 00:00:00 00:00:00 Medical Center Tobacco use and 2022-12-19 2022-12-[address] [facility] exposure 00:00:00 00:00:00 non-user Medical Center History [facility] 2022-12-19 2022-12-[address] [facility] Transport Med 00:00:00 00:00:[address] History [facility] 2022-12-19 2022-12-[address] [facility] Housing Unable to 00:00:00 00:00:00 Medical Center Pay History [facility] 2022-12-19 2022-12-[address] [facility] Housing Places 00:00:00 00:00:00 Medical Ce nter Lived History [facility] 2022-12-19 2022-12-[address] [facility] Housing Homeless 00:00:00 00:00:00 Medical Center Last Year Sex Assigned At [address] Aud[facility] kes 00:00:00 00:00:00 Medical Center Smoking Status Start Date Stop Date Source Smokes tobacco daily 2022-12-19 00:00:00 [facility] Medications Ordered Filled Start Stop Current [...] Center capsule mouth in the morning. potassium 2023-0 Yes 10meq QD Take 1 [facility] chloride 5-08 tablet (10 [facility] (KLOR-CON-M 12:54: mEq total) Medical ) 10 MEQ CR 02 by mouth Cent er tablet in the morning. fluticasone 2023-0 Yes Inhale by [facility] -umeclidin- 5-08 mouth via Sandy es vilanter 12:54: inhaler. Medic al (Trelegy 02 [place] Ellipta) 200-62.5-25 mcg DsDv amLODIPine 2023-0 Yes 5mg QD Take 1 [...] Center capsule mouth in the morning. potassium 2023-0 Yes 10meq QD Take 1 [facility] chloride 5-08 tablet (10 [facility] (KLOR-CON-M 12:54: mEq total) Medical ) 10 MEQ CR 02 by mouth Cent er tablet in the morning. fluticasone 2023-0 Yes Inhale by [facility] -umeclidin- 5-08 mouth via [facility] vilanter 12:54: inhaler. Medic al (Trelegy 02 [place] Ellipta) 200-62.5-25 mcg DsDv albuterol 2023-0 2023- No 1.25mg Take [address] (ACCUNEB) 12-28 05-08 (1.25 mg [facility] 1.25 mg/3 10:58: 00:00 total) by Ga dical mL 47 :00 nebulizati Center nebulizer on every 6 solution (six) hours as needed for Wheezing. propranoloL 2023-0 2023- No 10mg Q.5D Take [address] (INDERAL) 5-08 05-08 tablet (10 Sandy es 10 MG 10:58: 00:00 mg total) Medica l tablet 47 :00 by mouth Center in the morning and 1 tablet (10 mg total) before bedtime. albuterol 2023-0 2023- No 1.25mg Take [address] (ACCUNEB) 5-08 05-08 (1.25 mg [facility] 1.25 mg/3 10:58: 00:00 total) by Me dical mL 47 :00 nebulizati Center nebulizer on every 6 solution (six) hours as needed for Wheezing. propranoloL 2023-0 2023- No 10mg Q.5D Take [address] (INDERAL) 5-08 05-08 tablet (10 [facility] es 10 MG 10:58: 00:00 mg total) Medica l tablet 47 :00 by mouth Center in the morning and 1 tablet (10 mg total) before bedtime. metoprolol 2023-0 Yes 12.5mg Q.5D Take 0.[address] tartrate 5-08 tablets [facility] (LOPRESSOR) 00:00: (12.5 mg Me dical 25 MG 00 total) by Center tablet mouth in the morning and 0.5 tablets (12.5 mg total) before bedtime. apixaban 2023-0 Yes 5mg Q.5D Take [address] [...] (six) hours as needed for Wheezing. metoprolol 2023-0 Yes 12.5mg Q.5D Take 0.[address] tartrate 5-08 tablets [facility] (LOPRESSOR) 00:00: (12.5 mg Me dical 25 MG 00 total) by Center tablet mouth in the morning and 0.5 tablets (12.5 mg total) before bedtime. apixaban 2023-0 Yes 5mg Q.5D Take [address] (ELIQUIS) 5 5-08 tablet (5 [facility] mg Tab 00:00: mg total) Medica l tablet 00 by mouth Center in the morning and 1 tablet (5 mg total) before bedtime. albuterol 2022-0 Yes 1.25mg Take [address] (ACCUNEB) 5-08 (1.25 mg [facility] 1.25 mg/3 00:00: total) by Med ical mL 00 nebulizati Center nebulizer on every 6 solution (six) hours as needed for Wheezing. amLODIPine 3-0 Yes 5mg QD Take 1 [facility]I S [...] QD Take 1 [facility] t chloride 5- tablet (10 [facility] (KLOR-CON-M 15:55: mEq total) Medical ) 10 MEQ CR 45 by mouth Cent er tablet in the morning. propranoloL 2022-0 Yes 10mg Q.5D Take [address] (INDERAL) 5- tablet (10 Luke s 10 MG 15:55: mg total) Medical tablet 45 by mouth Center in the morning and 1 tablet (10 mg total) before bedtime. fluticasone 2022-0 Yes Inhale by C [facility] -umeclidin- 12-21 mouth via [place] [facility] vilanter 15:55: inhaler. [...] kg Systolic blood 2022-12-28 11:00:00 115 mm[Hg] [facility] Diastolic blood 2022-12-28 11:00:00 74 mm[Hg] [facility] Heart rate 2022-12-28 11:00:00 65 /min [facility] Body temperature 2022-12-28 11:00:00 36.28 Mirian [facility] Respiratory rate 2022-12-28 11:00:00 20 /min [facility] Oxygen saturation in 2022-12-28 11:00:00 100 /min [facility] Arterial blood by Medical Ce nter Pulse oximetry Systolic blood 2022-12-28 07:00:00 117 mm[Hg] [facility] Diastolic blood 2022-12-28 07:00:00 65 mm[Hg] [facility] Heart rate 2022-12-28 07:00:00 62 /min [facility] Body temperature 2022-12-28 07:00:00 36.61 Mirian [facility] Respiratory rate 2022-12-28 07:00:00 20 /min [facility] Oxygen saturation in 2022-12-28 07:00:00 98 /min [facility] Arterial blood by Medical Ce nter Pulse oximetry Body height 2022-12-19 06:46:00 180.3 cm [facility] Body weight 2022-12-19 06:46:00 97.7 kg [facility] BMI 2022-12-19 06:46:00 30.04 kg/m2 [facility] Procedures Procedure Date / Time Performed Performing Clinician Sour e CBC W/PLT COUNT & AUTO 2022-12-28 04:14:00 Jose Enrique [facility] DIFFERENTIAL [facility] MAGNESIUM 2022-12-28 04:14:00 Jose Enrique [facility] BASIC METABOLIC PANEL 2022-12-28 04:14:00 [facility] CBC W/PLT COUNT & AUTO 2022-12-28 04:14:00 Jose Enrique, [facility] S t [facility] HIGH SENSITIVITY 2022-12-27 00:19:00 Jose Enrique, [facility] s TROPONIN I [facility] BASIC METABOLIC PANEL 2022-12-27 00:19:00 Jose Enrique, [facility] CBC W/PLT COUNT & AUTO 2022-12-27 00:19:00 Jose Enrique, [facility] S t [facility] MAGNESIUM 2022-12-27 00:19:00 Jose Enrique, [facility] TSH/FREE T4 IF INDICATED 2022-12-27 00:19:00 Jose Enrique, [facility] CBC W/PLT COUNT & AUTO 2022-12-27 00:19:00 Jose Enrique, [facility] S [facility] HIGH SENSITIVITY 2022-12-26 13:48:00 Jose Enrique, [facility] s TROPONIN I [facility] ECG 12-LEAD 2022-12-26 12:37:14 Unknown, [facility] ECG 12-LEAD 2022-12-26 12:36:52 Jose Enrique, [facility] ECG 12-LEAD 2022-12-26 12:36:52 Unknown, [facility] CBC W/PLT COUNT & AUTO 2022-12-26 02:27:00 Jose Enrique, [facility] S [facility] BASIC METABOLIC PANEL 2022-12-26 02:27:00 Jose Enrique, [facility] MAGNESIUM 2022-12-26 02:27:00 Jose Enrique, [facility] CBC W/PLT COUNT & AUTO 2022-12-26 02:27:00 Jose Enrique, [facility] S [facility] REPORT OF PROCEDURE - 2022-12-25 14:41:41 Keo Heredia [facility] TISSUE EXAM 2022-12-25 14:10:00 Heredia, [facility] COLONOSCOPY, WITH 2022-12-25 13:28:00 Sheikh [facility] POLYPECTOMY [facility] CBC W/PLT COUNT & AUTO 2022-12-25 04:11:00 [facility], [facility] BASIC METABOLIC PANEL 2022-12-25 04:11:00 [facility], [facility] MAGNESIUM 2022-12-25 04:11:00 [facility], [facility] CBC W/PLT COUNT & AUTO 2022-12-25 04:11:00 [facility], [facility] POCT-GLUCOSE METER 2022-12-24 12:01:00 [facility], [facility] CBC W/PLT COUNT & AUTO 2022-12-24 03:55:00 [facility], [facility] BASIC METABOLIC PANEL 2022-12-24 03:55:00 [facility], [facility] MAGNESIUM 2022-12-24 03:55:00 [facility], [facility] CBC W/PLT COUNT & AUTO 2022-12-24 03:55:00 [facility], [facility] CBC W/PLT COUNT & AUTO 2022-12-23 04:33:00 [facility], [facility] BASIC METABOLIC PANEL 2022-12-23 04:33:00 [facility], [facility] MAGNESIUM 2022-12-23 04:33:00 [facility], [facility] CBC W/PLT COUNT & AUTO 2022-12-23 04:33:00 [facility], [facility] P.E.T./CT SKULL BASE TO 2022-12-22 16:11:00 Stacey Oneil [facility] MID-THIGH [facility] POCT-GLUCOSE METER 2022-12-22 13:52:00 Jose Enrique, [facility] US CHEST 2022-12-22 11:37:00 Jose Enrique, [facility] CBC W/PLT COUNT & AUTO 2022-12-22 03:04:00 Jose Enrique, [facility] BASIC METABOLIC PANEL 2022-12-22 03:04:00 Jose Enrique, [facility] MAGNESIUM 2022-12-22 03:04:00 Jose Enrique, [facility] CBC W/PLT COUNT & AUTO 2022-12-22 03:04:00 Jose Enrique, [facility] PROTHROMBIN TIME/INR 2022-12-21 14:29:00 Rubia Brooks [facility] 2D ECHO W/ DOPPLER 2022-12-21 12:19:12 Wesley Mendoza [facility] (CW/PW/COLOR) [facility] 2D ECHO W/ DOPPLER 2022-12-21 12:19:12 Wesley Mendoza [facility] (CW/PW/COLOR) [facility] CBC W/PLT COUNT & AUTO 2022-12-21 08:40:00 Jose Enrique, [facility] CBC W/PLT COUNT & AUTO 2022-12-21 08:40:00 Jose Enrique, [facility] BASIC METABOLIC PANEL 2022-12-21 08:40:00 [facility], [facility] MAGNESIUM 2022-12-21 08:40:00 [facility], [facility] VANCOMYCIN LEVEL, TROUGH 2022-12-20 09:34:00 Chalo, [facility] MRSA SCREEN 2022-12-19 12:58:[address] [facility] XR CHEST 1 VIEW PORTABLE 2022-12-19 12:50:00 Inocente Sebastian [facility] / BEDSIDE Medical [place] ABORH, MANUAL 2022-12-19 06:31:00 Sindy Blacno [facility] TYPE AND SCREEN, 2022-12-19 06:03:00 Wesley Mendoza [facility] CBC W/PLT COUNT & AUTO 2022-12-19 06:03:00 Wesley Mendoza [facility] VANCOMYCIN LEVEL, RANDOM 2022-12-19 06:03:00 Wesley Mendoza [facility] CBC W/PLT COUNT & AUTO 2022-12-19 06:03:00 Wesley Mendoza [facility] BASIC METABOLIC PANEL 2022-12-19 06:03:00 Wesley Mendoza [facility] MAGNESIUM 2022-12-19 06:03:00 Wesley Mendoza [facility] PHOSPHORUS 2022-12-19 06:03:00 Wesley Mendoza [facility] OSMOLALITY, SERUM 2022-12-19 06:03:00 Wesley Mendoza [facility] S [facility] EKG-SCANNED 2022-12-19 00:00:00 Provider, Jarek [facility]3] es [facility] Plan of Care Planned Activity Planned Date Details Comments Source Future Scheduled 2032-12-25 Screening for malignant [facility] Test 00:00:00 neoplasm of colon Medical Ce nter (procedure) [code = 984931742] Future Scheduled 2032-12-25 Screening for malignant [facility] Test 00:00:00 neoplasm of colon Medical Ce nter (procedure) [code = 448909844] Future Scheduled 2032-12-25 Screening for malignant [facility] Test 00:00:00 neoplasm of colon Medical Ce nter (procedure) [code = 462771309] Future Scheduled 2032-12-25 Screening for malignant [facility] Test 00:00:00 neoplasm of colon Medical Ce nter (procedure) [code = 273899688] Future Scheduled 2032-12-25 Screening for malignant [facility] Test 00:00:00 neoplasm of colon Medical Ce nter (procedure) [code = 492674446] Future Scheduled 2032-12-25 Screening for malignant [facility] Test 00:00:00 neoplasm of colon Medical Ce nter (procedure) [code = 136308829] Future Scheduled 2023-04-23 Influenza Vaccine (#1) [facility] 00:00:00 [code = Influenza Medical Ce nter Vaccine (#1)] Future Scheduled 2023-02-[address] [facility] Test 00:00:00 WELLNESS (YEAR 2 or Medical Center FIRST YEAR if no IPPE) [code = MEDICARE ANNUAL WELLNESS (YEAR 2 or FIRST YEAR if no IPPE)] Future Scheduled 2022-08-[address] [...] screening Medical C enter (procedure) [code = 618882603] Future Scheduled [address] [facility] Test 00:00:00 aneurysm screening Medical C enter (procedure) [code = 717729062] Future Scheduled [address] [facility] Test 00:00:00 aneurysm screening Medical C enter (procedure) [code = 575612790] Future Scheduled 2022-02-20 Medicare IPPE (WELCOME C [...] lung Medical [facility] (procedure) [code = 681895214] Future Scheduled 2007 SHINGLES VACCINES ([address] [facility] Test 00:00:00 2) [code = SHINGLES Medical Center VACCINES (1 of 2)] Future Scheduled 2007 Screening for malignant [facility] Test 00:00:00 neoplasm of lung Medical Gerardo ter (procedure) [code = 512389624] Future Scheduled 2007 SHINGLES VACCINES ([address] [facility] Test 00:00:00 2) [code = SHINGLES Medical Center VACCINES (1 of 2)] Future Scheduled 2007 Screening for malignant [facility] Test 00:00:00 neoplasm of lung Medical Gerardo ter (procedure) [code = 014080887] Future Scheduled 2007 SHINGLES VACCINES ([address] [facility] Test 00:00:00 2) [code = SHINGLES Medical Center VACCINES (1 of 2)] Future Scheduled 1992 Lipid panel (procedure) [facility] Test 00:00:00 [code = 65436927] Medical Ce nter Future Scheduled 1992 Lipid panel (procedure) [facility] Test 00:00:00 [code = 99405757] Medical Ce nter Future Scheduled 1976 DTAP/TDAP/TD [...] Lukes Test 00:00:00 [code = HEPATITIS C [facility] SCREENING] Future Scheduled 1969 Tobacco Cessation [...] [facility]ukes Test 00:00:00 [code = CT Colonography [facility] (combo)] Future Scheduled 1957 Screening for malignant [facility] Test 00:00:00 neoplasm of colon Medical Ce nter (procedure) [code = 792611354] Future Scheduled 1957 Screening for malignant [facility] Test 00:00:00 neoplasm of colon Medical Ce nter (procedure) [code = 509267887] Future Scheduled 1955 Sigmoidoscopy [code = [facility] 00:[facility]:00 Sigmoidoscopy] Medical Cente r Future Scheduled 1957 CT Colonography (combo) [facility] Test 00:00:00 [code = CT Colonography Medi [facility] (combo)] Future Scheduled 1957 Screening for malignant [facility] Test 00:00:00 neoplasm of colon Medical Ce nter (procedure) [code = 029894809] Future Scheduled 1957 Screening for malignant [facility] Test 00:00:00 neoplasm of colon Medical Ce nter (procedure) [code = 514967163] Future Scheduled 1955 Sigmoidoscopy [code = [facility] Test 00:00:00 Sigmoidoscopy] Medical Cente r Future Scheduled 1957 CT Colonography (combo) [facility] Test 00:00:00 [code = CT Colonography [facility] (combo)] Future Scheduled 1957 Screening for malignant [facility] Test 00:00:00 neoplasm of colon Medical Ce nter (procedure) [code = 288929637] Future Scheduled 1957 Screening for malignant [facility] Test 00:00:00 neoplasm of colon Medical Ce nter (procedure) [code = 881215112] Future Scheduled 1955 Sigmoidoscopy [code = [facility] 00:00:00 Sigmoidoscopy] Medical Cente r Encounters Start End Encounter Admission Attending Care Care Encounter Source Date/Time Date/Time Type Type Clinicians Facility Department ID 2022-12-19 2022-12-28 Inpatient ER [facility] [id number] [facility] 03:40:00 12:53:00 [facility] 2022-12-19 2022-12-28 Hospital ER Wesley Mendoza [facility] [id number] [facility] [facility] 03:40:00 12:53:[address] [facility] 2022-12-26 2022-12-26 Orders [facility] [id number] 00:00:00 00:00:00 Only [facility] 2022-12-25 2022-12-25 Anesthesia Latoya [facility] [id number] 13:28:00 14:53:00 Event Lucas [facility] 2022-12-25 2022-12-25 Surgery Sheikh [facility] [id number] 13:00:00 14:00:00 Keoyoandy Patton [facility] 2022-12-19 2022-12-19 Travel [facility] [id number] [facility] 00:00:00 00:00:00 [facility] Results Test Description Test Time Test Comments Results Result Comments Source Tissue Exam 2022-12-28 13:49:30 Test Item Value Reference Range Interpretation Comme nts Case Report (test code = 104) Surgical Pathology Report Case: [id number] Authorizing Provider: Keo Heredia MD Collected: 12/25/2022 02:10 PM Ordering Location: [address] Received: 12/25/2022 04:33 PM Service Pathologist: Triston Armstrong MD Specimens: A) - Polyp, Colon - Transverse, polyp via hot snare B) - Polyp, Colon - Sigmoid, polyp via hot snare C) - Rectal, polyp via hot snare DIAGNOSIS (test code = 3220) [id number]yIaGpUxCdCzOq p rlDQxZWwfhzKbNXlefQxdRAAqPRXwBM0ghFsrzI z5yPacOJDiwlM4cTZdIAzhn3rtQKI6a3glsdqrE BZhHYrvTf6yiVFrkHbdDpFcPDOhOIp7iY12AMQl sY1fvNQhDWs3HFSqkRDscdYdKpYgQLLuyEHriVD 2PHOiVX3hparfOHhbXUxlEAHceoI2BDPbxIPoS7 XhOFRhHU2vchfuBLK5CJgcICKbUVB9FpZpCWJhx 4Cxqmm0GrDjsOOjIVbssANadkjixpKyDPRbKKQI GW3QXYKEEbXWH2HWOdSZXYNNR2zYIVOAYD5TGPy qySNgZXItXcTjCAIIOKiMToDXZHMHK19OQCQttm eyKBFaFm0aO15JM33aJMSRK48DCPIqRZYLXKxDZ PFTQ29DKujaAXCocWDuRL4SVTPVMGDDVALXEO4W NLOczKYwPLRujhGSAbROENLTUJ9aZKUSRJhISUH LL51TDvvnBOEhtPZzVT8LFDWRXI4RXDiPQ0EMXK OPCE0ZYOSsvKWhgQuhlfPiFFolr7AzJQthNKSwS A2duGulVQDdFH6uSDUpQ4utlI3itfs4DjPpEMHl JvU2AAHctsN1Btv2TVAeYYuaq0iho1FhICRqCVy 7aLdmMfSzZBDpn8mteeSeMpFnWLFoZDZxUXBeyP QyA339s7jac3ukitDieSK0VGNaWQJ3ZTkadqRdl xX1LDjbqMLjWaI6MYviocViAExkvdXhjoOhOlq8 BNDfR436TSO5cMbbs2yxVFI5AZWhOTKzAfGwXj6 whRBwT702YPPrYRSUXKUilNp5KIDbkeJdhgNpbH RVj158W314t9xiWVQzqcTivPrWtaurr9hvT197D FFdwPBserFbWvNfTDWyuMBiiDA4ZSTtIW1jrksk AZetJFykWLLqmsG8QDBceOFvF0YyELFyCV5bhkb xXSX4PMslOISxUCU4QsUmHLSsj1Ywgow6AvMtea 6fvy30VDC1s6AviHfoDPY7NTT9DpIaYh3byCBhG OXwAF1rPuXroKGmEDZtzf36qCviVZgcHSV6DWVp leVqf1Icd0nuDbRgfyUqX2uiV6QkFFUoNIEsOHG sJoMtuwAau6Xlk3NacDSveXe2s6ohULJjEDDxoB xdx6tfFSU5ZCEsdXWqF6grrU5vZRVjCX2qezshx 7slCVonKPhyZQGktYN4gkA9CEKsfVJhE9XqwE0x LGWqNIvrAJFnbxk7PfYuDn1lxDDjuSrwATyvSjj wYWdlXHBnbmNvbnRccGduZGVjXHBsYWluXHBsYW luXGYwXGZzMjRccWxcbGFuZzEwMzNcaGljaFxmM JvcWpPfTCMjZXqeN4taFtNnBjYhFhu9NJHleHMl SMZcQwp5PJAkrKSpZGXWwAsuqK1eGQGpwOupuP2 irBQ5SEIqqmMjlRFAaK1tXFAXcC6xUaQ3VASeZc e0AZP4JtKrzFXvaB2= COMMENT (test code = 3358) k5zxkOJmUJThlYGaJLVxATpwofDlCGAklJGgA7W zuownHNrvVQ9aTX2fpCfusXBkcKIgHYWlLlEmf1 wve958hNCuy2btTGZSivrckKl9zRjaL37zy2T6A lxsV32luHWoILD4MPErMHJgtJYxBEDdATE5JYSe xPZeQ1fgOEDbKL0uzizyUNdaRBcbHTYcpLP7EHM ouPNwZ4HhKATrSHfrWFOzhap3PgWtEj5geDBclB kgZFbnCACfLXTlCYpeOHLzWrYaFK9ij1Nut8F9D DKdzO2ccDJ6PXRmdjZ1mCP3WWTjULbuGNU2 CPT Code(s) (test code = 4090) o8nqrQQkWVFbbWVfHBNhNElsuaHiUTUkhVDq Z3B rugteCAwpKM9mLM1ilExsoURjqLHrPEPhLbQux0 ixq773sMDoy8zoSBEEhymodYw3mSouH31zu0W4V gwiS87wyPFiIUS7KZWkMTUclFSuJPSxJCQ0QSCu kWKnT6uoMASgMP4rgxmwIKbfARwyHULobHO5WGB xgUToD1HhGKSxWQwnENRtdfo4UpNyOf6ygYGobX ydHFhiVCHaEHNgDLosKHZaDhHpBNirAAA0N5pyX XJ9 GROSS DESCRIPTION (test code = [id number]QhyuAh6 d [id number]) eJBPtsuB9hPZqFTiss7opRYX1d5avaqVMDsnfOF FdHO2nBYwsDSRyVH1pSjIdUNFqHyHmOIIfkKFxp vGbZnGmBEQvmDAfvPR6LHGsNZ2vfhkmMFztNXcv ZDTjixC5HFHesYExN8IwAOEdRX6gzibfCZM6VBK FGwmySf7iySBoxZmjLlXwHlFbKPXcWTJtRJEqnS nzICWgJPc4mE4ZLazfD09pp9Q7Grm4UCDxHQPrW 9FtGK7cWODjiCBwN77UGerzPKV1OBWTHiycOylf uSirt2QktYZtGKGzBLmpiOOpYVJaUOMfNThpTxL PCmTlIqV8Oqu1UWI5RxJ5EHk6JFVZYOHeUGZ1IU whJuG2MEx8BDQqSJ3sHKvubQIkOWouZxwaAZzuQ 236HZkgHLUzD9AwV3JvBBeyGgAlKCaiPDAbWNIv YIolUSGrP9ICADSuKTJ5Eac1FHNnDBc6ROaoT1I XTUCgQDK0PRS1GlXcNrF4WVb3UGNYSe1lToV1SW K4ACE7CMC9CGYiTUjkdPWmSGmtn3JgLfXgPJSpE XnztoA4NSLwqeJmFRoaoGdpyD2nBaKeIlOGCqBO o0t3aRlzL98ya28uXEYAjjQyp6KimfIbKVHeauU VLkmiZXBnFV9NLWZmUYilKZVmCdMoySLlN4ovWV VdS24ya7ZLw5HpNN9UZMq6ibJdzotnoJ7tTIHoe rJtRXihO2PyDHDrOyIbLyNdKAm0KBGbmQ4kAa2e nISobR9muPZeERmyKCD5yXPdSZCcvPzncpSjzfC oMJ5bLCSoVNZaX3MnUELoX46jISUdfI2bMTIeIY 6mTEMdv0m9xViqM27kw52tsOxyZTDfDBi0SnJnI K9bmsCfn8XtBreinIH6WdSda73ztNJ5nmOfPvUb AULeauHsb5P1EHSzv3U9XCHuckLtxDXdxHXxDLF idGQcsbcfuQEvuQ6wUK1mVEYgZGydRHehCEM4LN G2GUSmzXTqj6fqzfsbx2kqV7paREDvPPS9Xw2gj CFuYWTmhkJ5z4BaMLzsIZIfKpfdLGGwYAxffRFt XH3FQZYxPgRbZRReS0ayHUJcBB8BCXHtDFuvdmO pKB9OZNBznMGJLJE4WG5tUXiqBEEpN8MoH7Seae L9UJXiuaYWZcceXmgbaXqzg1TfcTDjCOWxADatd WDkKFZjHUIgATgyBkIIKaRbFrY3Yff0UUV5RbA8 PKc8AGUJDeJxZfHyWcYmHKx3IcEdBHb7HWp1CQd TZkN2Sdt3Qbb3XcMyLJP7GpOzGEb3JQZwAYgkkd PxATukMtacSCxnI80lhAMaSIotIzNiZDxqsHnpF BVxXPJ7OK4BJc0wFF8jxJWvQLTyfL4vXF7wJ0na sT3sKTtiQUEfEFkuhNPhJNIPXkrwdPPdkxwexRH oiFyxdvJfNPVhkCKIJDY2KB7hZZYFKsrfuFBjOQ LvvMpgPGstnM9nTGEkKfCrLKOhR9qcQkXbNH1PG PObKUukulLfYIBnU6WdsrYxUJoyTLFizs8tpSqk LZpjJsAfCIXdb7y7aPDkEQKtYN66Z3RvpxYrARf gbWVkaWNhbCByZWNvcmQgbnVtYmVyIGFuZCIgcG 3kcKOtTPOniZ1qSBD6TpItCOpfUBYreRcnf9vpC GHkp2DwjMEsK36gb3yyaCRpv0JiVbR1WQ7ep39a pVL9mJAyiGCnYsDnL51tlqTeaMMyw1YzzQ1cIXI hNGVoPSBhFTEcvCSlvmYferVzxJWhjQVczJ0eyw Iyx45hAKjyuMMvXOGuRKVerZSojLD8LXPzfD3tw S91gkRvhdLJXQ5xjGEwJI5LZYFkIHbjrXmvKXDb JXVODvdvVYWgKIinw6CbUZpfpChsMOBoQhRyGLv dV7MoVFYhFzBiOVezCOXmX45uz0STr7Pyv2qfiA wws7SomHZxJF0dfCBkCQ0Oq7ygEXOdfMIcKBG3X Tpca5fgTOayIQY7ZRTeHyWfBXTuSO8BVzQgETz1 Fsx8VOBeBKw3RNx0OV6ATfYvTDQoMMIsQxD3QkE bRZq9ZGuxFJ8NTVacVSzeNwN6FDT4DMheFzTxJT XnQdJdJLPlDNVdNTupaHNfDH2geXcoJAMyRLGfO SO6RMFncKMHe1WvPQIdUOkVEjFPGDV3GJgiaLSr CG4NQOHlykEyJYxspLrwcS1teGQwW5sxHqDxZgh lcGljTmVzdERvYzEgDQpcbHRycGFyXGxpbjBccm ugLZssLiUpJIAppIHSq6OcIYKGMitqxkKsYESid qOSPpaeMeYnGLMyV3mdAcJeNNbCKZNsdHAiUJYc clLli6HxIAgoduByGJHyiGGpVMakbKlouXM5nRK inOIcLT8lBCQgRHXtQ8BrFHEyO36pQCKaeJ9aSE MkUY0fFPYsUFL0UZqazQ6czLIdXjzwaJJ2QsAbm 06nhNH1rwBcHfOjCWAnhnGkBOGnsUqwXBNjkCqc IX5pGZM6nrnjUkUzFcBzkJLaFrjvpENlUjydG38 qTQZkMFJcnYu6eCKdSUE1EB2mz20xfMN6oTPtiT VaTlPtD97xaiSnWbBdNJgsSCHfkYmnXKefQIcbi 1PfKPrcDZOqWBWbKDX5dSMwa9EvP5iyIU5unZRk IC95vVOtfRehh1TltNe4nLGbZSArIHCnrLyxk8P 3IRFuasJVCjdmTQZeHCwFOPI2mF0nEBOoEEE9OK TreqKHSpLhQtZVwCEirYMnEFTuQBseJV26k6tjC NFgADdSJksjKTIdo3k2lOvpaW0dYSIqF5ArAV0u IBPnyclrxSQrHVQ9cR0xRUVmOFYdxlRTLfuaXEC pRWqGkG2vXBRsRelingvoAWGSEQnGO2HRSNviAS ZeOJcnI6XiVXRpoERtQZ1XRCTzjnDMAnpkTIPsY WQdsMJDo0YrNGEMMlcfVwZhUrGoKwURXnsjeBoc EhDnbJPtQiY5JYYmqMRbJNH4CW7joAybYWEgN5I mW6DavdX3HURfpuCRCzggPKHpAV1RhH== MICROSCOPIC DESCRIPTION (test code = u8aekXXuGDBiuJUcISYfIJtxzqHnRT TwyCUhM8K 3371) daremLHkuEP4aJR9fyUcnePPpiUWuKHLmDbDww4 kbs090wSXcl5efFQAXojdrnGq8xLesJ26rk9H2R tswZ57skBEmCCV5VZXwQQPenOUjPYVjIKV5SCYp dXKmN4wiKGZhXY1ccllkORzuYQhzCVAywGP2KIY dqPNxN0LtAWMpSFpqKCBqwcm7NwUxBw8zdWDswT qkRErhQTBnSQRhBZubWAHcAkMtJYveii9xB39wb WMgYXNzZXNzbWVudCBzdWJzdGFudGlhdGVzIHRo YVGdSi73VPDftZEwio3jlTAtOLorZLV2 Gross assessment was performed at (test [facility] enter, code = 2777) Department of Pathology, [address] [place] [address], Technical component was performed at [facility] er, (test code = 2778) Department of Pathology, [address] [place] [address] 19[address], Professional component was performed at [facility] enter, (test code = 2779) Department of Pathology, [address] [place] [address], [facility] HospitalTissue [id number] 13:49:30 Test Item Value Reference Range Interpretation Comments Case Report (test code Surgical Pathology = 104) Report Case: [id number] Authorizing Provider: Keo Heredia MD Collected: 12/25/2022 02:10 PM Ordering Location: [address] Received: 12/25/2022 04:33 PM Service Pathologist: Triston Armstrong MD Specimens: A) - Polyp, Colon - Transverse, polyp via hot snare B) - Polyp, Colon - Sigmoid, polyp via hot snare C) - Rectal, polyp via hot snare DIAGNOSIS (test code = x3aegJFtCOUfh6qaMPHttS 3220) FuZzEwMzNcZnRuYmpcdWMx IHtccnRmMVxlcGljMTAyMD EvSV1owZertAo1kInaEOVd tzR3iGEhHLalo2uvYPA5r3 nobtwvDTTjKGghKo3xrWNg lOfyXbLnAAHjGOk9fE17LK YvcD6tnKJyFHd4JRMgdTFr ytWnFjLfIXNsfFEzvKJ3ZJ DfQA9uaerkRElgUXwlRINd zqQ5ZBHoxQTgI9JgGVFaAO 0rpjvwVNX7KBqdEXOeKRC2 QcYfFRJzt9Gvkbj4UeJxbA FyZFxwbGFpblxmczIwIEEu JURUNU0JLSFKKtAML6BAEa TJSFRBZ3dXMQQZKS1KRWij cGFyXHRhYiAtVFVCVUxBUi KNQTBJI01VPEHnmbjlETFt Xw8yD16HM97mZUCWE95OIN NgPZFOKDaOQJQFK16MHuvk RUMvyTQzON4QVUUSUMXZPD WGWJ8VMOUpqQRlHESpcrMB OuKHGPJRPX9jKLZQXQpDXV ERS45DTssfHFZgoZSwOB8T ZVVWNE7BVYgGM3YCYYCCOO 5PTUFccGFyfXtccnRmMVxz j1YqKGfxRPPlKK2epDqdFY WaEW2eBKBeX8vifS4lgmm8 FuLeLWRaQdG7MLHcvtR6De s8XXXbNWcxc4lhd5CiIIUx DWd4rSpbZvHpVQWyn6kzsm BcZmNoYXJzZXQwIEFyaWFs E297j9jvc1lizxJnzAV6IV HmVZF4DGyinrPhwwI2ODof jSOvCsE6OWdnwcPoFKemrr IhteFeSap5CLLcQ417IQL4 xLdie1vfHKT8VCZqXJGxEn UyYa1isFFrL287ZGQeDBTU MALxyOu3FCErefSnydKmjV XTw620W981m4psMJInysPc rWqMdfyme5rgJ575BVRipF VydzEyMjQwXHBhcGVyaDE1 BVJcKK4rlxsjHCqeJQbeTJ CoptP9AIMxzDPeE6CmYSGg XW9dklwcIBQ1HOqsKFNaQJ K6XlPgKMPeg9Hykdw6VzBw km3mns04ZVM4m6SqnUkxPS O3MQN0MvFuAv4zlYLfTEZq LF9rRhNakQXsZLLxhc86lY quHFvzOOL1QMQkhfUvl3Ti z4efReLtucRlZ0qxH2WcQG HwCJZbZRUpIrSjqeEel1Md f7CfjCUlzPw0w6iqUACfMJ NrkRfrx3poACR9HKJyqIAg D2wkfZ2iQQUmFD9yaghfa5 vnROlsHDdoQLPobJE9ehD4 XYWndXCnF2ZwyJ3mNIFeAY flDJLjukp4DsBxOk9faLKv eTcyMFxzYmtwYWdlXHBnbm NvbnRccGduZGVjXHBsYWlu XHBsYWluXGYwXGZzMjRccW xcbGFuZzEwMzNcaGljaFxm VXsrIaYvPWExTNzzG2sqDg YrKlLeHnx9OUUjaRCyDWOz Hgf1RPHygKKzUXADhIbxlG 8fKGZwbTmuyP3pkIE9EJNm hyDgtNORoM2eZRINwI9nHt D1PUPsUfe3JKS9UqXlaCSi fX0= COMMENT (test code = a3qpmWEoGHEadQWwHEJdRI 3359) oxzxJzROGdeOZdZ1Idhyzv MHlaFR1bVA5ixIbhiNLoeR WnGCZxXfCdw3hnv981pCPt n7ydTYMHxshucBn7zEnjX6 1ph7A2JrcpB94wuPIoHRE6 AFViUQCfzQHsRDNnTOT4ZN AkfQJmH4kfKFGoST0phkku BFlmOHzwEYFfnZT1WHNduL PmK1BwSTMdLBagWPUfglt9 JzAoBn8zyWXwgVcmPDewNR IoVDIsDIwnXPLdLpGsNK7t p2Vue9K8TMMwzW6puZM1MJ KnpkR0hAF4PEGzWJmtYQH5 CPT Code(s) (test code w7nduCFoXQAabUFrRFLaJF = 3357) pmviNpTNGhsSOtU5Rodkkl TThpRZ5qQZ8npRutcOTsjV EfWPOrLqUny5ymy239mRTq z3ilCNKTbvywvQz0kRqfF4 2wf2Y9PbayU28jaPIlKRU9 XKMmFFMenUBmHZRaEAH5JS HatTTpX8flWPCwGO8jinhj DWhmCPkoWMQnhJC5GTPmqK WjI2UmBFYsKVziLIEehws9 LmKqYl0syVTxnTrkHXicZN JkXHBsYWluXGZzMjAgODgz HXF1N5tjITK6 GROSS DESCRIPTION (test e6zmeKCqYQMnhUEHGZSlMH code = [id number]) YrKA6qsMbofTj5cZsgPZFi lrW0fCMkWUess4sqNTG8h3 ztueIADkbgQRBhUQ5mQOmb JSXtXX3rWzPcGLBhHuRhTO BhcGVydzEyMjQwXHBhcGVy kPS8AKJnIB8scojmYPefKV boXPIfozL2MBCuuCDlH0Me JROnAP9mrjhvKBA9RXIURa qhDi5nxLLbbUwyAzEdYqIb YXJzZXQwXGZuaWwgQXJpYW l9bG9NAtgmB65sv2D6Iah5 ASHbAMAgK2YlVO7jPQLspH DaT75RYlstUUG3DUVKZyds BrszwJnto5JwkKObPLCtLJ xcaWQgNTEwMDAgXFxkYiBP CeJxTmC1Jxp9DKP2TnN7DZ f2RBYAOOMoXRU8WAdkZlH7 ABs4OGQvGN8bXMpqbKOmFT xcTksaDAjxK703ZEduUHRs Q4OnQ0NgNJvpUuCbJRynWF UoNDOmUBzbHRTgH6QCRFYu IJL4Ipc5WTSgHPw5WSxwP6 VWASUpRLJ4KMJ5QdDrTuZ4 IXz8THSBLi8oPvU3ZMB3YP K2GIG3MCQgSHeqxGNeHDbw a7DbAhFqJOPzPGjjuaC2EM AuatYtVXuwbJkpgS4fUeVd ZdYCCuSEg0f4aPfqA84gk6 1hOMQGmnMnj5KldqVwMZRw viSQEbqbFJNvNZ0PMRNwJI vwLYFyAtBepHUvA6vbUSBi J48kf4ENm9ClAD5OSMz2ti LneytvbZ0iOMNuisNsSNse D1OnLVElJpYyWeHeOIa4GU VotE2gCs6bmHYreO2ekHSj WDntVMQ2iBReIVTgfAddaa SdzmXvJP9sVCVbRTSzM1Lh HOPnY77bSWNlkV7sVMBpUQ 5jXDFkp1w0oIofE78xy50g pQhyVGHgURf0DpTkYD9sov Lwi6PdWxpmtAR5LcSse61f iAG4xmJvJtViTZSznpSns0 V6KWTof2W4SZNhhnRrdMFl dCBtZWFzdXJpbmcgdXAgdG 8gHO7kCLMrNQufBGfvBOO8 KPQ8TPZvzUMzg4dewlfrk1 vxJ3tpDWCkTOK0Ee8vsVRf YSNlsgV3a9JnHDtfDJOuMq xtPKBaVBeziZOsZW0FEXSl YzLmXJSwO0vgMMBlZC7GGL UvNHxiqtPiFU8FKPUidUZK QPF0VE3uOJauFBOpZ5XhQ0 WvnhV7UKTgguYNCpvcRxbh uKqmv9YqyCAsDREaXWyprP QgNTEwMDIgXFxkYiBPVlIg XkC5Ccp4KQN2CjT4WXd8DX QHFwOgXaYfLsTfUPu7McQe LCa9YPi7DLjWFeU8Shc2Cw h7EuWwZYB7TeEuABe5KBWc XFxzcyAzIFxcZmwgXFxuY3 1ccGFyZFxzYjEwNVxlcGlj JQAzMUV8FE2JXk7xTW2keI JqZMDplT8zOA0gY6gfkL6s ZFxwYXIgDQpccGFyZCANCl xwbGFpblxsdHJjaFxmczIy PAWtzYMZTKS7NF5jKNWIDm lhmOIaOBXuqWyfQOvymG7h MVAmHuSdCFPsB6dyMkYqPQ 9VDPArGQtvbzMrBZTaD2Ao hxVnODqsMGMcnb3pjGoeOB uaFgHvGIZeu2b9ePSgLEAd PU42Y5OsrxCnFDvciIYnoI NhbCByZWNvcmQgbnVtYmVy KXNqCVVvnS5kkYEoKRLnjT 5yDMJ6ClAeDJucWFWssWdt r9rdETWqz9MxtQYaK41kx7 sxoHNds2YbErP3TM3aw92n sOZ0xUWrzVTeWzDmY31ada VhbIVzy0ErbM6mGNCbUTHd IDAuOSBjbSBpbiBncmVhdG TkzOJxvL2ijdLzy03iEZgo pPIiVENkSNLdvTHllNG2UP XsaJ2sgF57qtOtkfBHUT7y aYSzBY4UPUAjBVermRkxMW RsNBPFDvwgNIHfXOayq4Oj MFxlcGljWHNhMzAgDQpcY2 VmKRDuOaAqPLjtELNzK26q z7LJl7Idj5mqfKuzd0WoeA ZdRB4heBOtCC7Lb3dyKXDs wKPvLMD1UQisi8exUXjqWB C5CCLqLjOhVELeYA9XXlIk RDm3Xlt7INLeIRp3ZTi1NP 6PQvXnDATyWEXmHwS7XrMh TNk8NJmtBJ7UOHdlPKmjSw X5AHM9FAdqItCxHWShMfNu UUKzESRtMJnfaEOwVT0nwP dgJMAqFKGrRVB4FVZfaFNR k4IjRRBqOFxZDyYFXDM3GV vhzMEmRT6JUEUggeCkRUcq aBtmsK3ivANyI4bvDhJvNg xlcGljTmVzdERvYzEgDQpc bHRycGFyXGxpbjBccmluMF atRiWsHZHzsFVPj7GvDPYG ClxmczIwXHBhciANClxzYj MsSDYhQ0peDqSzWBgZOVGw dGQpJJQoceOvm6WbVXmuyn BsYWJlbGVkIHdpdGggcGF0 lLYosYUqHT9cAGMvWIIoJ0 BmTFHxT35jVAMmuS0sONDa ZC7mSUSvWNY9CNsdmR2xzI ScWjxsbPR5VeVsg95dmHJ6 cyBvZiBhIHRhbiBzZXNzaW cqGLQquKtsTV3qMSI4ujkx ZyAxLjMgeCAwLjkgeCAwLj opY09kPEXrHVPtzVp2vZTz NLT4GM3nd53ztRX0fKXndC VqIrMiI77ckvPlAnAdMNlo QJQpvIfqVUwcJIymm3KeNH kwBHWuJNWsPTH2eNQva6Hd T2aiRT5bsJSwCV70uCKwsV xsm9CulPb3iYFrNFGnBWDq uIdiz1M7UOUtnrCZHaspKV QjNCxCXFO9fF4jZHWcTLX0 XHBhciANCkMxOiBTbWFsbG UwHOVqLSvaLY34z3vmMVWa FCuCWxqsNXDcn7q7cVgnnJ 4rMVCnV6ZjTK9eOPMbtogg uEEvHAQ8tJ6eOZVzQIWbab ZDKoekJRTnHOiDnV7zQGSf RcfrcvbcEPTGARbYH0HPZS saNGGsMMrdU1UnBQDpwTSf ZU6QSSSnjaHEXfsyGPVmRF LdqWCCi4PsXYWHXmvrQyFs ZnMyMiANClxlcGljTmVzdE MwBuG4DSKpzEHgFNJ2OM6n hKiiFQCvY7OyO1UjopS6NT IgpnIQUpnjFNQvPN1YfA== MICROSCOPIC DESCRIPTION v0jvuTKoWKFrbYDxYQRdQE (test code = 3371) mczmItOPWkdWLnW2Ksbzyw EBigGM4dGA6urEibtVEqhN PcJIZaLrCes4vli253oPFa c2qhGTVClucqaPr1hXjkP2 3wm5F9WnmsG14hlCRdXUF3 EQZaRFPbsBDuIIOfICP1TM VwaGImC0pgKSSiQU7awegz LVmiBTkdZRLdaPL2TQWjjU EwB4HeYTHwYFpjMJHgoji8 SvKnSr6mfWQgvKbwREvcEV JkXHBsYWluXGZzMjAgTWlj ed4xG23prDPrCIGvYKFwoV VudCBzdWJzdGFudGlhdGVz ZUXxPVFqOp13ABHduDZoic 4jbJSaNUfeEWY7 Gross assessment was [facility] performed at ([facility], = 2777) Department of Pathology, [address] [place] [address], Technical component was [facility] performed at ([facility], = 2778) Department of Pathology, [address] [place] [address], Professional component [facility] was performed at ([facility], code = 2779) Department of Pathology, [address] [place] [address], [facility] [id number] 13:49:30Surgical Pathology Report Case: [id number] Authorizing Provider: Keo Heredia MD Collected: 12/25/2022 02:10 PM Ordering Location: [address] Received: 12/25/2022 04:33 PM Service Pathologist: Triston Armstrong MD Specimens: A) - Polyp, Colon - Transverse, polyp via hot snare B) - Polyp, Colon - Sigmoid, polyp via hot snare C) - Rectal, polyp via hot snare A. COLON, TRANSVERSE, POLYPECTOMY: - TUBULAR ADENOMAB. COLON, SIGMOID, POLYPECTOMY: -TUBULAR ADENOMAC. RECTUM, POLYPECTOMY: -TUBULOVILLOUS ADENOMA Signing Pathologist Direct Phone Line: [phone] signed by Triston Armstrong MD on 12/28/2022 at 1:49 PMEndoscopy report was reviewed. [id number]. Polyp, Colon - TransverseReceived in formalin labeled [...] (ASCP) Microscopic assessment substantiates the above diagnosis. [facility], Department of Pathology, [address] [place] [address], [facility] [place]ology, [address] [place] [address], [facility] [place], Department of Pathology, [address] [place] [address], DHWFJ METABOLIC [id number] 04:54:17 Test Item Value Reference Range Interpretation [...] not appl icable for dialysis patien ts Inspector Exhaust Emissions ID - [id number] 04:54:17 Test Item Value Reference Range Interpretation Comments MAGNESIUM (BEAKER) (test code = 1.8 mg/dL 1.6-2.6 627) Inspector Exhaust Emissions ID - MARCOCBC W/PLT COUNT & AUTO [id number] 04:36:31 Test Item Value Reference Range Interpretation [...] (test code = 2801) TSH/FREE T4 IF [id number] 01:46:24 Test Item Value Reference Range Interpretation Comments THYROID STIMULATING HORMONE 1.450 uIU/mL 0.350-4.940 (BEAKER) (test code = 772) Inspector Exhaust Emissions ID - BSHIGH SENSITIVITY TROPONIN [id number] 01:25:31 Test Item Value Reference Range Interpretation Comments HIGH SENSITIVITY TROPONIN I (test 62 pg/ml <=35 H code = 8720840) Inspector Exhaust Emissions ID - BSThe ONLINE MERCHANT STAT High Sensitivity Troponin-I results should be used in conjunctionwith other diagnostic information such as ECG, clinical observations and information, and patient symptoms to aid in the diagnosis of MT.BASIC METABOLIC [id number] 01:20:36 Test Item Value Reference Range Interpretation [...] not appl icable for dialysis patien ts Inspector Exhaust Emissions ID - [id number] 01:20:36 Test Item Value Reference Range Interpretation Comments MAGNESIUM (BEAKER) (test code = 1.9 mg/dL 1.6-2.6 627) Inspector Exhaust Emissions ID - BSCBC W/PLT COUNT & AUTO [id number] 00:30:47 Test Item Value Reference Range Interpretation [...] (test code = 2801) HIGH SENSITIVITY TROPONIN [id number] 14:26:01 Test Item Value Reference Range Interpretation Comments HIGH SENSITIVITY TROPONIN I (test 84 pg/ml <=35 H code = 6482357) Inspector Exhaust Emissions ID - BSThe ONLINE MERCHANT STAT High Sensitivity Troponin-I results should be used in conjunctionwith other diagnostic information such as ECG, clinical observations and information, and patient symptoms to aid in the diagnosis of MT.BASIC METABOLIC [id number] 03:40:20 Test Item Value Reference Range Interpretation [...] not appl icable for dialysis patien ts Inspector Exhaust Emissions ID - [id number] 03:40:20 Test Item Value Reference Range Interpretation Comments MAGNESIUM (BEAKER) (test code = 2.0 mg/dL 1.6-2.6 627) Inspector Exhaust Emissions ID - BSCBC W/PLT COUNT & AUTO [id number] 02:36:41 Test Item Value Reference Range Interpretation [...] H PERCENT (BEAKER) (test code = 2801) [id number] 05:25:43 Test Item Value Reference Range Interpretation Comments MAGNESIUM (BEAKER) (test code = 2.1 mg/dL 1.6-2.6 627) Inspector Exhaust Emissions ID - MMBASIC METABOLIC [id number] 05:25:42 Test Item Value Reference Range Interpretation [...] not appl icable for dialysis patien ts Inspector Exhaust Emissions ID - MMCBC W/PLT COUNT & AUTO [id number] 05:11:30 Test Item Value Reference Range Interpretation [...] PERCENT (BEAKER) (test code = 2801) POC-Glucose [id number] 12:12:31 Test Item Value Reference Range Interpretation Comments POC-Glucose Meter (test 114 mg/dL 70-110 H : TE STED AT [facility] code = 1538) [address] [place] [address], [facility] 30: Inspector Exhaust Emissions/Techni jordyn ID = [id number] for Tyree Bernal ie Lab Interpretation (test Abnormal code = 82046-5) [facility]-Glucose [id number] 12:12:31 Test Item Value Reference Range Interpretation Comments POC-Glucose Meter (test 114 mg/dL 70-110 H : TE STED AT [facility] code = 1538) [address] [place] [address], [facility] 30: Inspector Exhaust Emissions/Techni jordyn ID = [id number] for Tyree Bernal ie Lab Interpretation (test Abnormal code = 57986-5) [facility]-Glucose [id number] 12:12:31 Test Item Value Reference Range Interpretation Comments POC-Glucose Meter (test 114 mg/dL 70-110 H : TE STED AT [facility] code = 1538) [address] [place] [place], [address]: Inspector Exhaust Emissions/Techni jordyn ID = [id number] for Tyree Bernal ie Lab Interpretation (test Abnormal code = 91118-7) [facility] [id number] 12:12:31 Test Item Value Reference Range Interpretation Comments POC-GLUCOSE METER 114 mg/dL 70-110 H : TESTED A T [facility] 6720 (BEAKER) (test code = [address] [place], 1538) [address]: Inspector Exhaust Emissions/Techni jordyn ID = [id number] for Adrienne Man BASIC METABOLIC [id number] 04:44:44 Test Item Value Reference Range Interpretation [...] not appl icable for dialysis patien ts Inspector Exhaust Emissions ID - [id number] 04:44:44 Test Item Value Reference Range Interpretation Comments MAGNESIUM (BEAKER) (test code = 2.1 mg/dL 1.6-2.6 627) Inspector Exhaust Emissions ID - MMCBC W/PLT COUNT & AUTO [id number] 04:17:52 Test Item Value Reference Range Interpretation [...] PERCENT (BEAKER) (test code = 2801) U/S, [id number] 15:17:00Laterality?->LeftReason for exam:->Known left plefLabs to be Ordered:->CytologyLabs to be Ordered:- >Glucose+LDH+ProteinLabs to be Ordered:->Body Fluid Culture (w/Gram Stain, C\\T\\S)Labs to be Ordered:->Cell CountLabs to be Ordered:->Fungal Culture [facility] 1955 Sex: MFINAL REPORT Ultrasound of the chest CLINICAL HISTORY: Evaluate pleural effusionfor thoracentesis. DISCUSSION: Sonographic evaluation of the left chest was performed to evaluate for possible thoracentesis. Only a trace amount of left-sided pleural effusion is identified. IMPRESSION:Minimal left-sided pleural effusion, insufficient for safe thoracentesis. Signed: Ede Richards Verified Date/Time: 12/23/2022 15:17:37 Reading Location: [address] Ultrasound Reading Room [facility] METABOLIC [id number] 08:42:27 Test Item Value Reference Range Interpretation [...] not appl icable for dialysis patien ts [id number] 08:36:30 Test Item Value Reference Range Interpretation Comments MAGNESIUM (BEAKER) 2.1 mg/dL 1.6-2.6 Specimen slightly (test code = 627) hemolyzed CBC W/PLT COUNT & AUTO [id number] 04:56:56 Test Item Value Reference Range Interpretation [...] = 2801) PET/CT, SKULL BASE TO MID-THIGH [id number] 19:39:00Reason for Exam:->To rule out mesothelioma [facility] 1955 Sex: MFINAL REPORT EXAMINATION: FDG-PET/CT, 12/19/2022 3:40 AM CLINICAL HISTORY: 67-year-old male, rule out mesothelioma. COMPARISON: No recent study available for comparison. TECHNIQUE:Radiopharmaceutical: F-18 FluorodeoxyglucoseAdministered activity: 12.0 mCiRoute of administration: Int ravenously via the left antecubital veinLocalization time: 105 minutesScan extent: Skull base to theproximal thighsAdditional imaging: NoneSerum blood glucose: 138 mg/dlCPT Code: 09804 FINDINGS:Head and Neck: No suspicious FDG avid cervical lymph nodes. Chest: No suspicious FDG avid thoracic lymph nodes. There are atelectatic changes within the lingula and right lung base. There is a small left-sided pleural effusion associated with low-level uptake. Abdomen and Pelvis: Left kidney is absent. Thereis an approximately 4.2 cm photopenic hypodense lesion arising from/abutting the upper pole of the right kidney. No suspicious focal FDG avid hepatic or adrenal lesion. No suspicious FDG avid abdominalor pelvic lymph nodes. There is an approximately [...] Small left-sided exudative pleural effusion. Signed: Ted Guilleneport Verified Date/Time: 12/22/2022 19:39:47 POCT-GLUCOSE [id number] 14:04:02 Test Item Value Reference Range Interpretation Comments POC-GLUCOSE METER 138 mg/dL 70-110 H : TESTED A T [facility] 6720 (BEAKER) (test code = [place], 1538) [address]: Inspector Exhaust Emissions/Techni jordyn ID = [id number] for Nyla Perla MRSA [id number] 09:59:55 Test Item Value Reference Range Interpretation Comments Result (test code = 6463-4) No MRSA isolated [facility] [id number] 09:59:55 Test Item Value Reference Range Interpretation Comments Result (test code = 6463-4) No [facility] isolated [facility] [id number] 09:59:55 Test Item Value Reference Range Interpretation Comments Result (test code = 6463-4) No MRSA isolated [facility] [id number] 09:59:55 Test Item Value Reference Range Interpretation Comments CULTURE (BEAKER) (test code No MRSA isolated = 1095) [id number] 04:05:59 Test Item Value Reference Range Interpretation Comments MAGNESIUM (BEAKER) (test code = 2.1 mg/dL 1.6-2.6 627) Inspector Exhaust Emissions ID - [facility] WBASIC METABOLIC [id number] 04:05:58 Test Item Value Reference Range Interpretation [...] not appl icable for dialysis patien ts Inspector Exhaust Emissions ID - [facility] WCBC W/PLT COUNT & AUTO [id number] 03:46:41 Test Item Value Reference Range Interpretation [...] [facility] W/Doppler(CW/PW/Color) 2022-12-21 16:31:48Ejection [facility]/[id number] 14:53:12 Test Item Value Reference Range Interpretation Comments PROTIME (BEAKER) (test code = 13.8 seconds 11.9-14.2 759) INR (BEAKER) (test code = 370) 1.12 <=5.90 RECOMMENDED COUMADIN/WARFARIN INR THERAPY RANGESSTANDARD DOSE: 2.0 - 3.0 Includes: PROPHYLAXIS for venous thrombosis, systemic embolization; TREATMENT for venous thrombosis and/or pulmonary embolus.HIGH RISK: Target INR is 2.5-3.5 for patients with mechanical heart valves.[id number] 13:28:03 Test Item Value Reference Range Interpretation Comments MAGNESIUM (BEAKER) (test code = 2.0 mg/dL 1.6-2.6 627) Inspector Exhaust Emissions ID - [facility] METABOLIC [id number] 13:28:02 Test Item Value Reference Range Interpretation [...] (test code = 697) EGFR (BEAKER) 99 Interpretati on of eGFR (test code = mL/min/1.73 values [...] not appl icable for dialysis patien ts Inspector Exhaust Emissions ID - JSCBC W/PLT COUNT & AUTO [id number] 08:50:17 Test Item Value Reference Range Interpretation [...] (BEAKER) (test code = 2801) VANCOMYCIN LEVEL, [id number] 11:00:53 Test Item Value Reference Range Interpretation Comments VANCOMYCIN TROUGH (BEAKER) (test 15.2 ug/mL 10.0-20.0 code = 522) Inspector Exhaust Emissions ID - EDRAD, CHEST, 1 VIEW, NON [id number] 13:55:00Reason for exam:- >evaluate reported loculated pleural effusion, leftShould this be performed at the bedside?->Yes [facility] DOB: 1955 Sex: MFINAL REPORT EXAMINATION: RAD, CHEST, 1 VIEW, NON DEPT. INDICATION: 67-year-old male with left loculated pleural effusion. COMPARISON: None. FINDINGS:The cardiac silhouette is normal in size. The thoracic vasculature is within normal limits. Mild bibasilar atelectasis. Small left pleural effusion. No pneumothorax. No acute osseous abnormality. Visualized soft tissues are unremarkable. IMPRESSION:Small left pleural effusion. Signed: Rubia Lipscomb Verified Date/Time: 12/19/2022 13:55:56 Reading Location: [address] Ortho Consult Reading Room OSMOLALITY, [id number] 07:27:48 Test Item Value Reference Range Interpretation Comments OSMOLALITY, SERUM (BEAKER) (test 282 mOsm/kg 275-295 code = 615) BASIC METABOLIC [id number] 07:16:16 Test Item Value Reference Range Interpretation [...] not appl icable for dialysis patien ts Inspector Exhaust Emissions ID - [id number] 07:16:16 Test Item Value Reference Range Interpretation Comments MAGNESIUM (BEAKER) (test code = 1.9 mg/dL 1.6-2.6 627) Inspector Exhaust Emissions ID - [id number] 07:16:16 Test Item Value Reference Range Interpretation Comments PHOSPHORUS (BEAKER) (test code = 4.2 mg/dL 2.3-4.7 604) Inspector Exhaust Emissions ID - MMVANCOMYCIN LEVEL, [id number] 07:15:55 Test Item Value Reference Range Interpretation Comments VANCOMYCIN RANDOM (BEAKER) (test 9.4 ug/mL code = 523) Reference Range: No NormalsOperator ID - MMCBC W/PLT COUNT & AUTO [id number] 06:38:56 Test Item Value Reference Range Interpretation [...] % 0.00-1.00 PERCENT (BEAKER) (test code = 3743)
[2023-06-09] MEDS ORDERED: MAGNESIUM SULFATE 1 gm IVPB 1 GM/100 ML BAG IV ONE (12:56)
[2023-06-09] MEDS ORDERED: IPRATROPIUM BROM 0.5MG/2.5ML ONE (12:56)
[2023-06-09] MEDS ORDERED: ALBUTEROL 2.5 MG/3 ML NEB SOL ONE (12:56)
[2023-06-09] MEDS ORDERED: METHYLPREDNISOLONE 125 MG INJ ONE (12:56)
[2023-06-09 12:57] LABS: Absolute Lymphocytes (CBC) 0.9 K/uL (0.7-4.9); Hematocrit 41.9 % (39.6-49.0); Lymphocytes % 6.9 % (15.3-44.8); MCV 89.2 fL (80-100); MPV 7.6 fL (7.6-11.3); Platelets 198 thou/uL (152-406)
[2023-06-09 13:15] LABS: Potassium 3.1 mEq/L (3.5-5.1)
--- NOTE | 2023-06-09 14:02 | RAD REPORT ---
EXAM DESCRIPTION: RADChest Single View06/09/2023 1:30 pm CLINICAL HISTORY: Cough;Congestion COMPARISON: Chest Single View dated 05/17/2023; Chest Single View dated 02/22/2023; Chest Single View d ated 12/31/2022; Chest Single View dated 12/18/2022; Chest Abdomen W Con dated 12/31/2022 TECHNIQUE: Portable AP view of the chest. FINDINGS: Stable left airspace opacity with possible small effusion. Gas filled structure underneath the right hemidiaphragm linear to transposition of the colon, not significantly. No pneumothorax or other sizable effusion. The cardiomediastinal contours are unremarkable. IMPRESSION: Stable left basilar space opacity, may relate to atelectasis or pneumonia.
--- NOTE | 2023-06-09 14:45 | EDPHYS ---
Physician Documentation [facility] Name: Randolph Mckeon Age: 68 yrs Sex: Male : 1955 Arrival Date: 06/09/2023 Time: 12:17 Bed 2 Private MD: ED Physician Dejah Ibarra HPI: 06/09 14:58 This 68 yrs old Male presents to ER via Ambulatory with complaints of COPD kb Exacerbation, Shortness Of Breath. 14:58 The patient has shortness of breath at rest. Onset: The symptoms/episode began/occurred kb 3 day(s) ago. Duration: The symptoms are continuous. The patient's shortness of breath is aggravated by exertion. Associated signs and symptoms: Pertinent positives: non-productive cough, Pertinent negatives: chest pain, fever. Severity of symptoms: At their worst the symptoms were moderate in the emergency department the symptoms are unchanged. The patient has not experienced similar symptoms in the past. The patient has not recently seen a physician. Pt reports increased shortness of breath, wheezing and cough 3 days ago. Denies fever. Historical: - Allergies: 12:29 No Known Allergies; mb9 - Home Meds: 12:29 Lasix Oral [Active]; Amlodipine [Active]; Metoprolol Tartrate Oral [Active]; tamsulosin mb9 Oral [Active]; - PMHx: 12:29 Atrial fibrillation; CHF; COPD; Hypertension; Pneumonia; mb9 - PSHx: 12:29 cyst removal on lower left limb; mb9 - Immunization history:: Adult Immunizations up to date. - Social history:: Smoking status: Patient reports the use of cigarette tobacco products, smokes one pack cigarettes per day. ROS: 14:57 Constitutional: Negative for fever, chills, and weight loss, kb 14:57 Respiratory: Positive for cough, shortness of breath, wheezing, 14:57 All other systems are negative, Exam: 14:57 Constitutional: This is a well developed, well nourished patient who is awake, alert, kb and in no acute distress. Head/Face: Normocephalic, atraumatic. ENT: Moist Mucous membranes Cardiovascular: Regular rate Abdomen/GI: Soft, non-tender. No distention Skin: Warm, dry with normal turgor. Normal color. MS/ Extremity: Pulses equal, no cyanosis. Neurovascular intact. Full, normal range of motion. Neuro: Awake and alert, GCS 15, oriented to person, place, time, and situation. Moves all extremities. Normal gait. 14:57 Respiratory: mild respiratory distress is noted, Respirations: labored breathing, that is mild, Breath sounds: wheezing: expiratory that is mild, that is moderate, is scattered, Vital Signs: 12:27 BP 135 / 60; Pulse 56; Resp 18; Temp 98.4; Pulse Ox 91% on R/A; Weight 131.54 kg; mb9 Height 5 ft. 11 in. ; 13:00 BP 122 / 64; Pulse 52; Resp 19; Pulse Ox 96% on 2 lpm NC; ko1 13:30 BP 128 / 78; Pulse 52; Resp 18; Pulse Ox 89% on R/A; nj1 14:30 BP 130 / 64; Pulse 51; Pulse Ox 97% on 2 lpm NC; nj1 15:42 BP 121 / 62; Pulse 51; Resp 16; Pulse Ox 95% ; ko1 16:45 BP 127 / 58; Pulse 51; Resp 18; Pulse Ox 96% ; ko1 18:15 BP 129 / 92; Pulse 50; Resp 22; Pulse Ox 95% on 2 lpm NC; nj1 19:48 BP 135 / 67; Pulse 50; Resp 20; Pulse Ox 96% ; bp 12:27 Body Mass Index 40.45 (131.54 kg, 180.34 cm) mb9 MDM: 12:29 Patient medically screened. kb 14:58 Data reviewed: vital signs, nurses notes. kb 15:01 Differential diagnosis: Bronchitis Chronic Obstructive Pulmonary Disease pneumonia, kb pulmonary edema. Consideration of Admission/Observation Patient was admitted/placed on observation. Escalation of care including admission/observation considered. Management of patient was discussed with the following: Hospitalist: Hospitalist team, pt admitted under Dr Fischer. Counseling: I had a detailed discussion with the patient and/or guardian regarding the historical points, exam findings, and any diagnostic results supporting the discharge/admit diagnosis, lab results, radiology results, the need for further work-up and treatment in the hospital. ED course: Discussed inpatient vs outpatient treatment with pt. Pt states he doesn't feel comfortable going home and requests he be admitted. . 06/09 12:34 Order name: CBC with Diff; Complete Time: 13:11 kb 06/09 12:34 Order name: Basic Metabolic Panel; Complete Time: 13:17 kb 06/09 12:34 Order name: Flu; Complete Time: 13:30 kb 06/09 12:34 Order name: COVID-19 SARS RT PCR; Complete Time: 13:41 kb 06/09 13:11 Order name: Chest Single View XRAY; Complete Time: 14:06 kb 06/09 12:34 Order name: IV Start; Complete Time: 12:51 kb Administered Medications: 12:57 Drug: MethylPrednisoLONE IVP 125 mg IVP once Route: IVP; Site: right forearm; ko1 15:43 Follow up: Response: No adverse reaction ko1 12:57 Drug: Magnesium Sulfate IVPB 1 grams IVPB once over 1 hrs Route: IVPB; Infused Over: 1 ko1 hrs; Site: right forearm; 14:00 Follow up: Response: No adverse reaction; IV Status: Completed infusion nj1 15:43 Follow up: Response: No adverse reaction ko1 12:57 Drug: Albuterol Inhalation 2.5 mg Inhalation once Route: Inhalation; ko1 15:42 Follow up: Response: No adverse reaction ko1 12:57 Drug: Ipratropium Inhalation Aerosol 0.5 mg Inhalation once Route: Inhalation; ko1 15:42 Follow up: Response: No adverse reaction ko1 Disposition Summary: 06/09/23 14:45 Hospitalization Ordered Notes: Hospitalization Status: Observation kb Provider: Timoteo Fischer Location: Telemetry/MedSurg (observation) kb Condition: Stable kb Problem: new kb Symptoms: are unchanged kb Bed/Room Type: [facility] Room Assignment: 209(06/09/23 18:12) bd Diagnosis - COPD/ Chronic obstructive pulmonary disease with (acute) exacerbation kb Forms: - Medication Reconciliation Form kb - SBAR form kb - Leadership Thank You Letter kb Signatures: Dispatcher [employer] Yolande Samuel FNP-C FNP-Jenny Dangelo Kathy RN RN ko1 Nidhi Amaya RN RN mb9 Ally Huynh RN nj1 Corrections: (The following items were deleted from the chart) 18:12 14:45 kb bd
--- NOTE | 2023-06-09 14:45 | ER ---
Nurse's Notes [facility] Name: Randolph Mckeon Age: 68 yrs Sex: Male : 1955 Arrival Date: 06/09/2023 Time: 12:17 Bed 2 Private MD: Diagnosis: COPD/ Chronic obstructive pulmonary disease with (acute) exacerbation Presentation: 06/09 12:27 Chief complaint: Patient states: "I was here 2 weeks ago for my COPD exacerbation. The mb9 past few days, I've been feeling more weak, coughing a lot more, sore all over, and wheezing more.". Coronavirus screen: Vaccine status: Patient reports receiving the 2nd dose of the covid vaccine. Ebola Screen: No symptoms or risks identified at this time. Initial Sepsis Screen: Does the patient meet any 2 criteria? No. Patient's initial sepsis screen is negative. Does the patient have a suspected source of infection? No. Patient's initial sepsis screen is negative. Risk Assessment: Do you want to hurt yourself or someone else? Patient reports no desire to harm self or others. Onset of symptoms was June 09, 2023. 12:27 Method Of Arrival: Ambulatory mb9 12:27 Acuity: YANNICK 3 mb9 Triage Assessment: 12:31 General: Appears uncomfortable, Behavior is calm, cooperative. Pain: Complains of pain mb9 in entire body Pain does not radiate. Pain currently is 5 out of 10 on a pain scale. Quality of pain is described as aching. Neuro: Yusuf Agitation-Sedation Scale (RASS): 0 - Alert and Calm Level of Consciousness is awake, alert, obeys commands, Oriented to person, place, time, situation, Appropriate for age. Cardiovascular: Patient's skin is warm and dry. Respiratory: Reports shortness of breath cough that is Breath sounds with wheezes bilaterally. Respiratory: Onset: The symptoms/episode began/occurred yesterday, the patient has mild shortness of breath. GI: No signs and/or symptoms were reported involving the gastrointestinal system. Derm: Skin is pink, warm \\T\\ dry. Musculoskeletal: Range of motion: intact in all extremities. Historical: - Allergies: 12:29 No Known Allergies; mb9 - Home Meds: 12:29 Lasix Oral [Active]; Amlodipine [Active]; Metoprolol Tartrate Oral [Active]; tamsulosin mb9 Oral [Active]; - PMHx: 12:29 Atrial fibrillation; CHF; COPD; Hypertension; Pneumonia; mb9 - PSHx: 12:29 cyst removal on lower left limb; mb9 - Immunization history:: Adult Immunizations up to date. - Social history:: Smoking status: Patient reports the use of cigarette tobacco products, smokes one pack cigarettes per day. Screenin:00 [facility] ED Fall Risk Assessment (Adult) History of falling in the last 3 months, ko1 including since admission No falls in past 3 months (0 pts) Confusion or Disorientation No (0 pts) Intoxicated or Sedated No (0 pts) Impaired Gait No (0 pts) Mobility Assist Device Used No (0 pt) Altered Elimination No (0 pt) Score/Fall Risk Level 0 - 2 = Low Risk Oriented to surroundings, Maintained a safe environment, Educated pt \\T\\ family on fall prevention, incl call for assistance when getting out of bed, Assessed \\T\\ reinforced patient's understanding of fall precautions, Provided non-skid footwear, Hourly rounding (assess needs \\T\\ fall precautionary measures) done, Used ambulatory aids as needed (educated on \\T\\ assisted with), Used gait belt as appropriate. Abuse screen: Denies threats or abuse. Denies injuries from another. Nutritional screening: No deficits noted. Tuberculosis screening: No symptoms or risk factors identified. Assessment: 13:00 General: Appears in no apparent distress. uncomfortable, Behavior is cooperative, ko1 appropriate for age. Pain: Denies pain. Neuro: No deficits noted. Cardiovascular: Rhythm is regular. Respiratory: Airway is patent Respiratory effort is even, labored, Breath sounds are diminished bilaterally. GI: No deficits noted. : No deficits noted. EENT: No deficits noted. Derm: No deficits noted. Musculoskeletal: No deficits noted. 13:00 Respiratory: Reports wears 2l NC at home. ko1 18:15 Reassessment: Patient appears in no apparent distress at this time. Patient and/or nj1 family updated on plan of care and expected duration. Pain level reassessed. Patient is alert, oriented x 3, equal unlabored respirations, skin warm/dry/pink. 18:55 Reassessment: Unsuccessful attempt to call report at this time. Nurse Ryan to call nj1 back for it. Vital Signs: 12:27 BP 135 / 60; Pulse 56; Resp 18; Temp 98.4; Pulse Ox 91% on R/A; Weight 131.54 kg; mb9 Height 5 ft. 11 in. ; 13:00 BP 122 / 64; Pulse 52; Resp 19; Pulse Ox 96% on 2 lpm NC; ko1 13:30 BP 128 / 78; Pulse 52; Resp 18; Pulse Ox 89% on R/A; nj1 14:30 BP 130 / 64; Pulse 51; Pulse Ox 97% on 2 lpm NC; nj1 15:42 BP 121 / 62; Pulse 51; Resp 16; Pulse Ox 95% ; ko1 16:45 BP 127 / 58; Pulse 51; Resp 18; Pulse Ox 96% ; ko1 18:15 BP 129 / 92; Pulse 50; Resp 22; Pulse Ox 95% on 2 lpm NC; nj1 19:48 BP 135 / 67; Pulse 50; Resp 20; Pulse Ox 96% ; bp 12:27 Body Mass Index 40.45 (131.54 kg, 180.34 cm) mb9 ED Course: 12:19 Patient arrived in ED. mg5 12:27 Arm band placed on. mb9 12:29 Triage completed. mb9 12:29 Yolande Hansen FNP-C is [facility]. kb 12:29 Dejah Ibarra MD is Attending Physician. kb 12:37 Uzma Tidwell, SAMEER is Primary Nurse. ko1 12:51 Basic Metabolic Panel Sent. ds4 12:51 CBC with Diff Sent. ds4 12:51 Inserted saline lock: 22 gauge in right forearm, using aseptic technique. Blood ds4 collected. 12:57 COVID-19 SARS RT PCR Sent. ko1 12:57 Flu Sent. ko1 12:57 Basic Metabolic Panel Sent. ko1 12:57 CBC with Diff Sent. ko1 13:00 Patient has correct armband on for positive identification. Bed in low position. Call ko1 light in reach. Side rails up X2. Pulse ox on. NIBP on. Door closed. Noise minimized. Lights dimmed. Warm blanket given. 13:32 Chest Single View XRAY In Process Unspecified. EDMS 14:45 Timoteo Fischer is Hospitalizing Provider. kb 16:45 Provided Education on: na. ko1 16:45 No provider procedures requiring assistance completed. Patient admitted, IV remains in ko1 place. Administered Medications: 12:57 Drug: MethylPrednisoLONE IVP 125 mg IVP once Route: IVP; Site: right forearm; ko1 15:43 Follow up: Response: No adverse reaction ko1 12:57 Drug: Magnesium Sulfate IVPB 1 grams IVPB once over 1 hrs Route: IVPB; Infused Over: 1 ko1 hrs; Site: right forearm; 14:00 Follow up: Response: No adverse reaction; IV Status: Completed infusion nj1 15:43 Follow up: Response: No adverse reaction ko1 12:57 Drug: Albuterol Inhalation 2.5 mg Inhalation once Route: Inhalation; ko1 15:42 Follow up: Response: No adverse reaction ko1 12:57 Drug: Ipratropium Inhalation Aerosol 0.5 mg Inhalation once Route: Inhalation; ko1 15:42 Follow up: Response: No adverse reaction ko1 Medication: 16:45 VIS not applicable for this client. ko1 Outcome: 14:45 Decision to Hospitalize by Provider. kb 19:47 Admitted to Tele accompanied by tech, via stretcher, room 219, with oxygen, with chart, bp Report called to NANCI 19:47 Condition: stable 19:47 Instructed on the need for admit, 20:14 Patient left the ED. bp Signatures: Dispatcher [employer] EDMS Yolande Hansen, BENZENE WASHER OPERATOR-C BENZENE WASHER OPERATOR-Ckb Estevan Miller ds4 Sanchez Sweet, RN RN bp Uzma Tidwell, RN RN ko1 Nidhi Amaya RN RN mb9 Ally Huynh RN RN nj1 Lisa Croft mg5 Corrections: (The following items were deleted from the chart) 18:55 18:15 BP 129 / 92; Pulse 104bpm; Resp 22bpm; Pulse Ox 95% 2 lpm Nasal Cannula; nj1 nj1
--- NOTE | 2023-06-09 17:42 | P.HP ---
Certification for Inpatient Patient admitted to: Observation With expected LOS: <2 Midnights Practitioner: I am a practitioner with admitting privileges, knowledge of patient current condition, hospital course, and medical plan of care. Services: Services provided to patient in accordance with Admission requirements found in Title 42 Section 412.3 of the Code of Federal Regulations Patient History Date of Service: 06/09/23 Reason for admission: Shortness of breath History of Present Illness: 68-year-old gentleman with a history of COPD, current smoker, chronic respiratory failure on home oxygen, multiple hospitalizations for COPD exacerbation presented to the emergency department with a complaint of progressive shortness of breath of 3 days duration. Patient reported associated nonproductive cough. He reports being compliant with his Lasix. He uses nebulizers without much improvement and therefore presented to the ED. patient was given nebulizer treatment with partial improvement in her shortness of breath. He was still wheezing during my examination. Chest x-ray demonstrated stable bibasilar opacities which could be atelectasis. He has mild leukocytosis, does not meet criteria for sepsis. Patient is hospitalized for further management. Allergies No Known Allergies Allergy (Verified 02/22/23 17:15) Home Medications: Tamsulosin [Flomax*] 0.4 mg PO DAILY cap 11/04/20 Trelegy Ellipta 100-62.5-25 1 inh IH DAILY 09/30/22 Amlodipine [Norvasc*] 10 mg PO DAILY 02/22/23 Apixaban [Eliquis] 5 mg PO BID 02/22/23 Furosemide [Lasix] 80 mg PO DAILY 02/22/23 Potassium Chloride 20 meq PO DAILY 02/22/23 Spironolactone 25 mg PO DAILY 02/22/23 predniSONE [Prednisone*] 10 mg PO DAILY 02/22/23 Azithromycin 250 mg PO DAILY 15 Days #15 tab 05/20/23 Roflumilast [Daliresp*] 500 mcg PO DAILY 30 Days #30 tab 05/20/23 - Past Medical/Surgical History Diabetic: No -: COPD -: Hypertension -: Alcohol abuse -: Hyponatremia -: Diastolic CHF -: Pneumonia -: Hernia repair -: left leg wound -: Left foot cancer removal Psychosocial/ Personal History: Patient is . He lives at home and has home health. - Family History Father -: Heart disease Brother -: Lung disease - Social History Alcohol use: Yes CD- Drugs: No Caffeine use: Yes Review of Systems Other: Patient denied any chest pain, he denied any abdominal pain, he denied any fever, he denied any palpitation. Except as documented, all other systems reviewed and negative. Physical Examination - Physical Exam General: Alert, In no apparent distress, Oriented x3, Obese HEENT: Atraumatic, Mucous membr. moist/pink, Sclerae nonicteric Neck: Supple, JVD not distended Respiratory: Diminished (Bilateral), Expiratory wheezes Cardiovascular: No edema, Regular rate/rhythm, Normal S1 S2 Gastrointestinal: Normal bowel sounds, Soft and benign, Non-distended, No tenderness Musculoskeletal: No swelling, No tenderness Integumentary: No rashes, No cyanosis Neurological: Normal speech, Normal strength at 5/5 x4 extr, Cranial nerves 3-12 intact Lymphatics: No axilla or inguinal lymphadenopathy - Studies Laboratory Data (last 24 hrs) 06/09/23 06/09/23 12:49 12:49 WBC 13.00 H Hgb 14.0 Hct 41.9 Plt Count 198 Sodium 137 Potassium 3.1 L BUN 13 Creatinine 1.00 Glucose 127 H Microbiology Data (last 24 hrs): 06/09/23 12:50 Nasopharnyx Influenza Type A Antigen Screen - Final 06/09/23 12:50 Nasopharnyx Influenza Type B Antigen Screen - Final Assessment and Plan - Problems (Diagnosis) (1) Chronic respiratory failure with hypoxia Current Visit: Yes Status: Acute (2) Tobacco use Current Visit: Yes Status: Acute (3) Acute exacerbation of COPD with asthma Current Visit: No Status: Acute (4) Hypertension Current Visit: No Status: Chronic Qualifiers: Hypertension type: primary hypertension Qualified Code(s): I10 - Essential (primary) hypertension (5) Chronic diastolic heart failure Current Visit: No Status: Chronic - Plan Place patient on observation. Treat COPD exacerbation with scheduled neb treatments. IV Solu-Medrol No indication for antibiotics Continue home dose Lasix Consults pulmonary. Monitor renal function. Continue home antihypertensives. - Advance Directives Does patient have a Living Will: No Does patient have a Durable POA for Healthcare: No
[2023-06-09] MEDS ORDERED: ONDANSETRON 4 MG/2 ML VIAL IV PRN (20:24)
[2023-06-09] MEDS ORDERED: ACETAMINOPHEN 500 MG TAB PO PRN (20:24)
[2023-06-09] MEDS: ALBUTEROL 2.5 MG/3 ML NEB SOL NEB SCH (21:40)
[2023-06-09] MEDS: IPRATROPIUM BROM 0.5MG/2.5ML NEB SCH (21:40)
[2023-06-09] MEDS: METHYLPREDNISOLONE 40 MG INJ IV SCH (22:23)
[2023-06-09] MEDS: APIXABAN 5 MG TABLET PO SCH (22:23)
[2023-06-10] MEDS: IPRATROPIUM BROM 0.5MG/2.5ML NEB SCH ×4 (02:25→19:58)
[2023-06-10] MEDS: ALBUTEROL 2.5 MG/3 ML NEB SOL NEB SCH ×4 (02:25→19:58)
[2023-06-10 03:11] LABS: Absolute Lymphocytes (CBC) 0.5 K/uL (0.7-4.9); Hematocrit 37.5 % (39.6-49.0); Lymphocytes % 4.8 % (15.3-44.8); MCV 88.8 fL (80-100); MPV 8.4 fL (7.6-11.3); Platelets 207 thou/uL (152-406); RBC Red Blood Cell Count 4.23 M/uL (4.33-5.43)
[2023-06-10 03:37] LABS: Magnesium 2.3 mg/dL (1.6-2.4); Phosphorus 2.1 mg/dL (2.5-4.9); Potassium 3.3 mEq/L (3.5-5.1)
[2023-06-10] MEDS ORDERED: POTASSIUM CL SA 10 MEQ TAB PO ONE (07:05)
[2023-06-10] MEDS: METHYLPREDNISOLONE 40 MG INJ IV SCH ×3 (07:21→16:58)
[2023-06-10] MEDS: POTASS/SODIUM PHOSPHATE 1 PKT POWD.PACK PO SCH ×3 (08:11→09:12)
[2023-06-10] MEDS: APIXABAN 5 MG TABLET PO SCH ×2 (08:12→20:27)
[2023-06-10] MEDS: ROFLUMILAST 500 MCG TABLET PO SCH (08:12)
[2023-06-10] MEDS: TAMSULOSIN 0.4 MG SR CAP PO SCH (08:13)
[2023-06-10] MEDS: SPIRONOLACTONE 25 MG TABLET PO SCH (08:15)
[2023-06-10] MEDS: TRELEGY ELLIPTA IH SCH (09:00)
[2023-06-10] MEDS ORDERED: FUROSEMIDE 40 MG TABLET PO SCH (09:00)
--- NOTE | 2023-06-10 11:41 | P.CNS ---
Date of Consult: 06/10/23 Reason for Consult: COPD exacerbation Chief Complaint: Shortness of breath History of Present Illness: Kidney 68 years of age recurrent hospitalizations for exacerbation he still continues to smoke he was doing fine and got worse over the past 4 days has a pr oductive cough Allergies No Known Allergies Allergy (Verified 02/22/23 17:15) Home Medications: Tamsulosin [Flomax*] 0.4 mg PO DAILY cap 11/04/20 Trelegy Ellipta 100-62.5-25 1 inh IH DAILY 09/30/22 Amlodipine [Norvasc*] 10 mg PO DAILY 02/22/23 Apixaban [Eliquis] 5 mg PO BID 02/22/23 Furosemide [Lasix] 80 mg PO DAILY 02/22/23 Potassium Chloride 20 meq PO DAILY 02/22/23 Spironolactone 25 mg PO DAILY 02/22/23 predniSONE [Prednisone*] 10 mg PO DAILY 02/22/23 Azithromycin 250 mg PO DAILY 15 Days #15 tab 05/20/23 Roflumilast [Daliresp*] 500 mcg PO DAILY 30 Days #30 tab 05/20/23 - Past Medical/Surgical History Diabetic: No -: COPD -: Hypertension -: Alcohol abuse -: Hyponatremia -: Diastolic CHF -: Pneumonia -: Hernia repair -: left leg wound -: Left foot cancer removal Psychosocial/ Personal History: Patient is . He lives at home and has home health. - Family History Father Medical History: Heart disease Brother Medical History: Lung disease - Social History Smoking Status: Current every day smoker Alcohol use: Yes CD- Drugs: No Caffeine use: Yes Review of Systems 10-point ROS is otherwise unremarkable General: Weakness Respiratory: Cough, Shortness of Breath Physical Examination Temp Pulse Resp BP Pulse Ox 98.2 F 88 23 H 117/66 94 06/10/23 08:00 06/10/23 08:15 06/10/23 08:00 06/10/23 08:15 06/10/23 08:00 General: Alert, Oriented x3, Mild distress Respiratory: Expiratory wheezes Cardiovascular: No edema, Regular rate/rhythm, Normal S1 S2 Gastrointestinal: Normal bowel sounds, Soft and benign Laboratory Data (last 24 hrs) 06/09/23 06/09/23 12:49 12:49 WBC 13.00 H Hgb 14.0 Hct 41.9 Plt Count 198 Sodium 137 Potassium 3.1 L BUN 13 Creatinine 1.00 Glucose 127 H - Problems (1) COPD exacerbation Current Visit: No Status: Acute Plan: Patient is 68 years of age recurrent hospitalizations for COPD exacerbations continue to smoke just recently given a course of antibiotics patient has a productive cough x-ray shows COPD changes Labs reviewed mild anemia normal white count mild hyponatremia hypokalemia patient is on maximum bronchodilator therapy reduce the dose of Lasix chair sputum
[2023-06-10 13:48] LABS: Calcium Oxalate Crystals- Ur Few /HPF (None Seen); Specific Gravity 1.021 (1.005-1.030); Urine Bacteria None Seen /HPF (<20); Urine Bilirubin NEGATIVE (Negative); Urine Blood Negative (Negative); Urine Clarity Turbid (Clear); Urine Color Light-Yellow (Yellow); Urine Glucose 2+ (Negative); Urine Mucus Slight /HPF (None Seen); Urine Protein NEGATIVE (Negative); Urine RBC <5 /HPF (None Seen); Urine Urobilinogen Normal (Normal)
--- NOTE | 2023-06-10 14:16 | P.PN ---
Subjective Date of Service: 06/10/23 Chief Complaint: Shortness of breath Patient states he feels better. He is maintained on 2 L oxygen by nasal cannula which is his baseline. He could not ambulate 1 lap in the hallway due to shortness of breath. Patient reported to have been wheezing after ambulating. Physical Examination - Vital Signs Temperature: 98.2 F Blood Pressure: 117/66 Pulse: 88 Respirations: 23 Pulse Ox (%): 94 - Studies Microbiology Data (last 24 hrs): 06/09/23 12:50 Nasopharnyx Influenza Type A Antigen Screen - Final 06/09/23 12:50 Nasopharnyx Influenza Type B Antigen Screen - Final Assessment And Plan - Current Problems (Diagnosis) (1) Chronic respiratory failure with hypoxia Current Visit: Yes Status: Acute (2) Tobacco use Current Visit: Yes Status: Acute (3) Acute exacerbation of COPD with asthma Current Visit: No Status: Acute (4) Hypertension Current Visit: No Status: Chronic Qualifiers: Hypertension type: primary hypertension Qualified Code(s): I10 - Essential (primary) hypertension (5) Chronic diastolic heart failure Current Visit: No Status: Chronic - Plan Physical Exam General: Alert, In no apparent distress. Neck: Supple, JVD not distended Respiratory: Diminished, mild expiratory wheezes Cardiovascular: No edema, Regular rate/rhythm, Normal S1 S2 Gastrointestinal: Normal bowel sounds, Soft and benign, Non-distended, No tenderness Musculoskeletal: No swelling, No tenderness Integumentary: No rashes, No cyanosis Neurological: Normal speech, Normal strength at 5/5 x4 extr, Cranial nerves 3-12 intact Plan: Acute COPD exacerbation/chronic respiratory failure with hypoxia Pulmonary input appreciated Continue scheduled neb treatments. IV Solu-Medrol Antibiotics Continue Aldactone Continue Daliresp. Trial of Protonix for possible GERD. Chronic diastolic heart failure Continue home dose Lasix. Monitor renal function Essential hypertension Continue home antihypertensives. Tobacco use Smoking cessation advised. DVT prophylaxis: Patient is on Eliquis.
[2023-06-10] MEDS: levoFLOXacin 750 MG TAB PO SCH (14:53)
[2023-06-10] MEDS: PANTOPRAZOLE 40MG TABLET PO SCH (16:58)
[2023-06-10 23:39] VITALS: BMI 33.0
[2023-06-11] MEDS: IPRATROPIUM BROM 0.5MG/2.5ML NEB SCH ×2 (00:31→07:50)
[2023-06-11] MEDS: ALBUTEROL 2.5 MG/3 ML NEB SOL NEB SCH ×2 (00:31→07:50)
[2023-06-11] MEDS: METHYLPREDNISOLONE 40 MG INJ IV SCH ×2 (01:05→05:09)
[2023-06-11] MEDS ORDERED: POTASSIUM CL SA 10 MEQ TAB PO ONE (07:23)
[2023-06-11] MEDS ORDERED: FUROSEMIDE 40 MG TABLET PO SCH (09:00)
[2023-06-11] MEDS: TRELEGY ELLIPTA IH SCH (09:00)
[2023-06-11] MEDS: ROFLUMILAST 500 MCG TABLET PO SCH (09:06)
[2023-06-11] MEDS: SPIRONOLACTONE 25 MG TABLET PO SCH (09:06)
[2023-06-11] MEDS: APIXABAN 5 MG TABLET PO SCH (09:07)
[2023-06-11] MEDS: TAMSULOSIN 0.4 MG SR CAP PO SCH (09:07)
[2023-06-11] MEDS: PANTOPRAZOLE 40MG TABLET PO SCH (09:07)
[2023-06-11] MEDS: levoFLOXacin 750 MG TAB PO SCH (09:07)
[2023-06-11 09:08] VITALS: BP 146/70
[2023-06-11 10:15] VITALS: TEMP 96.9
--- NOTE | 2023-06-11 10:15 | P.DS ---
Admission Date: 06/09/23 Discharge Date: 06/11/23 Disposition: DC HOME/HOME HEALTH CARE Discharge Condition: CRITICAL Reason for Admission: Shortness of breath - Problems (1) Chronic respiratory failure with hypoxia Status: Acute (2) Tobacco use Status: Acute (3) Acute exacerbation of COPD with asthma Status: Acute (4) Hypertension Status: Chronic Qualifiers: Hypertension type: primary hypertension Qualified Code(s): I10 - Essential (primary) hypertension (5) Chronic diastolic heart failure Status: Chronic Brief History of Present Illness: 68-year-old gentleman with a history of COPD, current smoker, chronic respiratory failure on home oxygen, multiple hospitalizations for COPD exacerbation presented to the emergency department with a complaint of progressive shortness of breath of 3 days duration. Patient reported associated nonproductive cough. He reports being compliant with his Lasix. He uses nebulizers without much improvement and therefore presented to the ED. patient was given nebulizer treatment with partial improvement in her shortness of breath. He was still wheezing during my examination. Chest x-ray demonstrated stable bibasilar opacities which could be atelectasis. He has mild leukocytosis, does not meet criteria for sepsis. Patient is hospitalized for further management. Hospital Course: Patient admitted to the medical floor and the following medical problems addressed: Acute COPD exacerbation/chronic respiratory failure with hypoxia Patient was seen and evaluated by pulmonary. Scheduled nebulizer treatment Also placed on IV Solu-Medrol and antibiotics Continued home dose Aldactone Continued home dose Daliresp and Trelegy. Patient placed on Protonix for possible GERD. He has clinically improved and appears to be at baseline. He is discharged with prednisone taper. He is also prescribed home nebulizer treatments Chronic diastolic heart failure Continued home dose Lasix. Patient appears euvolemic and compensated for CHF. Essential hypertension Continued home antihypertensives. Tobacco use Smoking cessation advised. Vital Signs/Physical Exam: Temp Pulse Resp BP Pulse Ox 96.9 F 105 H 20 146/70 H 93 06/11/23 08:00 06/11/23 09:07 06/11/23 08:00 06/11/23 09:07 06/11/23 08:00 General: Alert, In no apparent distress, Oriented x3 HEENT: Mucous membr. moist/pink Neck: Supple, JVD not distended Respiratory: Normal air movement, Expiratory wheezes (Mild scattered expiratory wheezes.) Cardiovascular: No edema, Regular rate/rhythm, Normal S1 S2 Gastrointestinal: Normal bowel sounds, Soft and benign, Non-distended, No tenderness Musculoskeletal: No tenderness Integumentary: No cyanosis Neurological: Normal strength at 5/5 x4 extr Laboratory Data at Discharge: WBC 9.40 thou/uL (4.3-10.9) 06/10/23 01:52 Hgb 12.7 g/dL (13.6-17.9) L D 06/10/23 01:52 Hct 37.5 % (39.6-49.0) L 06/10/23 01:52 Plt Count 207 thou/uL (152-406) 06/10/23 01:52 Sodium 135 mEq/L (136-145) L 06/10/23 01:52 Potassium 3.3 mEq/L (3.5-5.1) L 06/10/23 01:52 BUN 15 mg/dL (7-18) 06/10/23 01:52 Creatinine 0.91 mg/dL (0.70-1.30) 06/10/23 01:52 Glucose 241 mg/dL (74-106) H 06/10/23 01:52 Phosphorus 2.1 mg/dL (2.5-4.9) L 06/10/23 01:52 Magnesium 2.3 mg/dL (1.6-2.4) 06/10/23 01:52 Home Medications: Tamsulosin [Flomax*] 0.4 mg PO DAILY cap 11/04/20 Trelegy Ellipta 100-62.5-25 1 inh IH DAILY 09/30/22 Amlodipine [Norvasc*] 10 mg PO DAILY 02/22/23 Apixaban [Eliquis] 5 mg PO BID 02/22/23 Furosemide [Lasix] 80 mg PO DAILY 02/22/23 Potassium Chloride 20 meq PO DAILY 02/22/23 Spironolactone 25 mg PO DAILY 02/22/23 predniSONE [Prednisone*] 10 mg PO DAILY 02/22/23 Azithromycin 250 mg PO DAILY 15 Days #15 tab 05/20/23 Roflumilast [Daliresp*] 500 mcg PO DAILY 30 Days #30 tab 05/20/23 Ipratropium/Albuterol Sulfate [Iprat-Albut 0.5-3(2.5) mg/3 ml] 3 ml IH Q6H PRN #120 amp 06/11/23 Pantoprazole [Protonix Tab*] 40 mg PO BIDAC #60 tab 06/11/23 levoFLOXacin [Levaquin*] 750 mg PO DAILY #5 tab 06/11/23 predniSONE [Deltasone*] 10 mg PO DAILY #30 tab 06/11/23 New Medications: predniSONE [Deltasone*] 10 mg PO DAILY #30 tab Ipratropium/Albuterol Sulfate [Iprat-Albut 0.5-3(2.5) mg/3 ml] 3 ml IH Q6H PRN #120 amp PRN Reason: Shortness Of Breath levoFLOXacin [Levaquin*] 750 mg PO DAILY #5 tab Pantoprazole [Protonix Tab*] 40 mg PO BIDAC #60 tab Physician Discharge Instructions: Resume normal activity Diet: AHA Followup: Cooper Holt MD [ACTIVE - CAN ADMIT] - 1-2 Weeks Time spent managing pt's care (in minutes): 33
[2023-06-11 12:24] VITALS: O2SAT 95
== END 2023-06-11 11:45 | disposition home health service (06) ==
LOC: ER 12:17 → ERHOLD 17:29 → 2ND 18:38
PROVIDERS: ADMIT Internal Medicine; ATTEND Internal Medicine
DX: J96.11 Chronic respiratory failure with hypoxia (principal); J44.1 Chronic obstructive pulmonary disease with (acute) exacerbation; E87.6 Hypokalemia; I10 Essential (primary) hypertension; F17.210 Nicotine dependence, cigarettes, uncomplicated; R05.9 Cough, unspecified; D72.829 Elevated white blood cell count, unspecified; I50.32 Chronic diastolic (congestive) heart failure; D64.9 Anemia, unspecified; E87.1 Hypo-osmolality and hyponatremia; J45.909 Unspecified asthma, uncomplicated; Z82.49 Family history of ischemic heart disease and other diseases of the circulatory system; Z83.6 Family history of other diseases of the respiratory system; Z99.81 Dependence on supplemental oxygen; Z20.822 Contact with and (suspected) exposure to COVID-19
CPT/HCPCS: 96365; 85025 ×2; 81001; 80048 ×2; 36415; 83735; 84100; 87635; 87804 ×2; 71045; 94640; 94760 ×6; 96375; 99285; J3475; J7613 ×8; J7644 ×8; J2930; J2920 ×6; G0378

== ENCOUNTER 2023-06-28 12:22 | Inpatient (IN) | payer OTHER, BC ==
--- OUTSIDE RECORDS SUMMARY | 2023-06-28 12:27 | XMS REPORT | Continuity of Care Document ---
:1955 Author Organization [facility] t Address [address] [place] [id number] [place] [id number] Care Team Providers Name Role Phone ADRIAN OROPEZA Attending Clinician Unavailable Jasson ZULUAGA, Wesley Matias Attending Clinician Thad ZULUAGA, Stacey Attending Clinician Jose Enrique ZULUAGA, Adrian Quinones Attending Clinician [phone] Latoya ZULUAGA, Lcuas Attending Clinician Sheikh MARGARETH, Keo Patton Attending Clinician WESLEY MENDOZA Admitting Clinician Unavailable Payers Payer Name Policy Type Policy Number Effective Date Expiration Date S regan MEDICARE A B [id number] 2022 00:00:00 BCBS INDEMNITY [place] [id number] 2022 OS 00:00:00 Problems Condition Condition Condition Status Onset Resolution Last Treating Co mments Source Name Details Category Date Date Treatment Clinician Date COPD COPD Disease Recurre [facility]ce 12-28 [facility] on on 00:00: [facility] Colon Colon Disease Active [facility] Shortness Shortness Disease Active [facility] breath of breath -29 [facility] 00:00: Medical 00 Center Allergies, Adverse Reactions, Alerts Allergy Allergy Status Severity Reaction(s) Onset Inactive Treating Comm ents Source Name Type Date Date Clinician NO KNOWN Allergy Active [facility] Social History Social Habit Start Date Stop Date Quantity Comments Source History of tobacco Passive smoker [facility] use [facility] History [facility]-Med [facility] Alcohol intake 2022-12-25 2022-12-25 Ex-drinker [facility] 00:[facility] 00:00:00 (finding) Medical Center Exposure to 2022-12-09 2022-12-[address] [facility] SARS-CoV-2 (event) 00:00:00 03:57:00 Medica Center Tobacco use and 2022-12-19 2022-12-[address] [facility] exposure 00:00:00 00:00:00 non-user Medical Center Cigarettes smoked 2022-12-19 2022-12-[address] [facility] current (pack per 00:00:00 00:00:00 Medical Center day) - Reported Cigarette 2022-12-19 2022-12-[address] [facility] pack-years 00:00:00 00:00:00 Medical Center History [facility] 2022-12-19 2022-12-[address] [facility] Transport Med 00:00:00 00:00:[address] History [facility] 2022-12-19 2022-12-[address] [facility] Housing Unable to 00:00:00 00:00:00 Medical Center Pay History [facility] 2022-12-19 2022-12-[address] [facility] Housing Places 00:00:00 00:00:00 Medical Ce nter Lived History [facility] 2022-12-19 2022-12-[address] [facility] Housing Homeless 00:00:00 00:00:00 Medical Center Last Year Sex Assigned At [address] [address] [facility] 00:00:00 00:00:00 Medical Center Smoking Status Start Date Stop Date Source Smokes tobacco daily 2022-12-19 00:00:00 [place] [facility] Medications Ordered Filled Start Stop Current Ordering Indication Dosage Frequency Signature Comments Components Source Medication Medication Date Date Medication? Clinician (SIG) Name Name potassium Yes 10meq QD Take 1 [facility] chloride 5-08 tablet (10 [facility] (KLOR-CON-M 12:54: mEq total) Medical ) 10 MEQ CR 02 by mouth Cent er tablet in the morning. fluticasone 2023-0 Yes Inhale by [facility] -umeclidin- 5-08 mouth via [facility] vilanter 12:54: inhaler. Medic al (Trelegy 02 Center Ellipta) 200-62.5-25 mcg DsDv amLODIPine 2023-0 Yes [...] (Trelegy 02 Center Ellipta) 200-62.5-25 mcg DsDv amLODIPine 2023-0 Yes [...] (Trelegy 02 Center Ellipta) 200-62.5-25 mcg DsDv amLODIPine 2023-0 Yes [...] Cent er tablet in the morning. fluticasone 3-0 Yes Inhale by [facility] -umeclidin- 5-08 mouth via [facility] vil[facility]ter 12:54: inhaler. Medic al (Trelegy 02 Center Ellipta) 200-62.5-25 mcg DsDv amLODIPine 3-0 Yes 5mg QD Take 1 [...] by Center capsule mouth in the morning. propranoloL 2023-0 2023- No 10mg Q.5D Take [address] (INDERAL) - 05-08 tablet (10 [facility] 10 MG 10:58: 00:00 mg total) Medica l tablet 47 :00 by mouth Center in the morning and 1 tablet (10 mg total) before bedtime. albuterol 2023-0 2023- No 1.25mg Take [address] (ACCUNEB) 12-28-08 (1.25 mg [facility] 1.25 mg/3 10:58: 00:00 total) by Pa dical mL 47 :00 nebulizati Center nebulizer on every 6 solution (six) hours as needed for Wheezing. propranoloL 2023-0 2023- No 10mg Q.5D Take [address] (INDERAL) -08 05-08 tablet (10 [facility] 10 MG 10:58: 00:00 mg total) Medica l tablet 47 :00 by mouth Center in the morning and 1 tablet (10 mg total) before bedtime. albuterol 2022-0 3- No 1.25mg Take [address] (ACCUNEB) 12-28-08 (1.25 mg [facility] 1.25 mg/3 10:58: 00:00 total) by Me dical mL 47 :00 nebulizati Center nebulizer on every 6 solution (six) hours as needed for Wheezing. propranoloL 2022-0 2022- No 10mg Q.5D Take [address] (INDERAL) 12-28 05-08 tablet (10 [facility] 10 MG 10:58: 00:00 mg total) Medica l tablet 47 :00 by mouth Center in the morning and 1 tablet (10 mg total) before bedtime. albuterol 2022-0 2022- No 1.25mg Take [address] (ACCUNEB) 12-28-08 (1.25 mg [facility] 1.25 mg/3 10:58: 00:00 total) by Me dical mL 47 :00 nebulizati Center nebulizer on every 6 solution (six) hours as needed for Wheezing. propranoloL 2022-0 2022- No 10mg Q.5D Take [address] (INDERAL) 12-28-08 tablet (10 [facility] 10 MG 10:58: 00:00 mg total) Medica l tablet 47 :00 by mouth Center in the morning and 1 tablet (10 mg total) before bedtime. albuterol 2022-0 2022- No 1.25mg Take [address] (ACCUNEB) 12-28-08 (1.25 mg [facility] 1.25 mg/3 10:58: 00:00 total) by Me dical mL 47 :00 nebulizati Center nebulizer on every 6 solution (six) hours as needed for Wheezing. metoprolol 3-0 Yes 12.5mg Q.5D Take 0.5 C HI [...] tablet (5 mg total) before bedtime. albuterol 2023-0 Yes 1.25mg Take [address] [...] tablet (5 mg total) before bedtime. albuterol 2023-0 Yes 1.25mg Take [address] [...] tablet (5 mg total) before bedtime. albuterol 2023-0 Yes 1.25mg Take [address] [...] tablet (5 mg total) before bedtime. albuterol 2023-0 Yes 1.25mg Take [address] [...] by mouth Center in the morning. tamsulosin 3-0 Yes .4mg QD Take 1 [facility] (FLOMAX) 5-01 capsule [facility] 0.4 mg Cap 15:55: (0.4 [...] tablet (10 mg total) before bedtime. fluticasone 2023-0 Yes Inhale by [facility] -umeclidin- 5 mouth via [facility] vil[facility]ter 15:55: inhaler. Medic al (Trelegy 45 Center Ellipta) 200-62.5-25 mcg DsDv albuterol Yes 1.25mg Take [address] (ACCUNEB) 5 (1.25 mg [facility] 1.25 mg/3 15:55: total) by Med ica mL 45 nebulizati Center nebulizer on every 6 solution (six) hours as needed for Wheezing. Vital Signs Vital Name Observation Time Observation Value Comments Source HEIGHT 2022-12-19 06:46:00 180.3 cm WEIGHT 2022-12-19 06:46:00 97.7 kg HEIGHT 2022-12-19 06:46:00 180.3 cm WEIGHT 2022-12-19 06:46:00 97.7 kg HEIGHT 2022-12-19 06:46:00 180.3 cm WEIGHT 2022-12-19 06:46:00 97.7 kg Systolic blood 2022-12-28 11:00:00 115 mm[Hg] [facility] Diastolic blood 2022-12-28 11:00:00 74 mm[Hg] [facility] Heart rate 2022-12-28 11:00:00 65 /min [facility] Body temperature 2022-12-28 11:00:00 36.28 Mirian [place] [facility] Respiratory rate 2022-12-28 11:00:00 20 /min [place] [facility] Oxygen saturation in 2022-12-28 11:00:00 100 /min [facility] Arterial blood by Medical Ce nter Pulse oximetry Systolic blood 2022-12-28 07:00:00 117 mm[Hg] [facility] Diastolic blood 2022-12-28 07:00:00 65 mm[Hg] [facility] Heart rate 2022-12-28 07:00:00 62 /min [facility] Body temperature 2022-12-28 07:00:00 36.61 Mirian [place] [facility] Respiratory rate 2022-12-28 07:00:00 20 /min [place] [facility] Oxygen saturation in 2022-12-28 07:00:00 98 /min [facility] Arterial blood by Medical Ce nter Pulse oximetry Body height 2022-12-19 06:46:00 180.3 cm [facility] Body weight 2022-12-19 06:46:00 97.7 kg [facility] BMI 2022-12-19 06:46:00 30.04 kg/m2 [facility] Procedures Procedure Date / Time Performed Performing Clinician Sour e CBC W/PLT COUNT & AUTO 2022-12-28 04:14:00 Jose Enrique, [facility] S t [facility] MAGNESIUM 2022-12-28 04:14:00 Jose Enrique, [facility] BASIC METABOLIC PANEL 2022-12-28 04:14:00 Jose Enrique, [facility] CBC W/PLT COUNT & AUTO 2022-12-28 04:14:00 [facility], [facility] S [facility] HIGH SENSITIVITY 2022-12-27 00:19:00 Jose Enrique, [facility] TROPONIN I [facility] BASIC METABOLIC PANEL 2022-12-27 00:19:00 Jose Enrique, [facility] CBC W/PLT COUNT & AUTO 2022-12-27 00:19:00 Jose Enrique, [facility] S [facility] MAGNESIUM 2022-12-27 00:19:00 [facility], [facility] TSH/FREE T4 IF INDICATED 2022-12-27 00:19:00 Jose Enrique, [facility] CBC W/PLT COUNT & AUTO 2022-12-27 00:19:00 Jose Enrique, [facility] S [facility] HIGH SENSITIVITY 2022-12-26 13:48:00 Jose Enrique, [facility] TROPONIN I [facility] ECG 12-LEAD 2022-12-26 12:37:14 Unknown, Hl7 Doctor [facility] ECG 12-LEAD 2022-12-26 12:37:14 Unknown, Hl7 Doctor [facility] ECG 12-LEAD 2022-12-26 12:36:52 Jose Enrique, [facility] ECG 12-LEAD 2022-12-26 12:36:52 Unknown, Hl7 [facility] ECG 12-LEAD 2022-12-26 12:36:52 Unknown, Hl7 Doctor [facility] CBC W/PLT COUNT & AUTO 2022-12-26 02:27:00 Jose Enrique, [facility] BASIC METABOLIC PANEL 2022-12-26 02:27:00 Jose Enrique, [facility] MAGNESIUM 2022-12-26 02:27:00 Jose Enrique, [facility] CBC W/PLT COUNT & AUTO 2022-12-26 02:27:00 Jose Enrique, [facility] REPORT OF PROCEDURE - 2022-12-25 14:41:41 Sheikh [facility] ENDOSCOPY [facility] TISSUE EXAM 2022-12-25 14:10:[address] [facility] COLONOSCOPY, WITH 2022-12-25 13:28:00 Sheikh [facility] POLYPECTOMY [facility] CBC W/PLT COUNT & AUTO 2022-12-25 04:11:00 Jose Enrique [facility] BASIC METABOLIC PANEL 2022-12-25 04:11:00 Jose Enrique, [facility] MAGNESIUM 2022-12-25 04:11:00 Jose Enrique [facility] CBC W/PLT COUNT & AUTO 2022-12-25 04:11:00 Jose Enrique, [facility] POCT-GLUCOSE METER 2022-12-24 12:01:00 Jose Enrique, [facility] CBC W/PLT COUNT & AUTO 2022-12-24 03:55:00 Jose Enrique, [facility] BASIC METABOLIC PANEL 2022-12-24 03:55:00 Jose Enrique, [facility] MAGNESIUM 2022-12-24 03:55:00 Jose Enrique, [facility] CBC W/PLT COUNT & AUTO 2022-12-24 03:55:00 Jose Enrique, [facility] CBC W/PLT COUNT & AUTO 2022-12-23 04:33:00 Jose Enrique, [facility] BASIC METABOLIC PANEL 2022-12-23 04:33:00 Jose Enrique, [facility] MAGNESIUM 2022-12-23 04:33:00 Jose Enrique, [facility] CBC W/PLT COUNT & AUTO 2022-12-23 04:33:00 [facility], [facility] P.E.T./CT SKULL BASE TO 2022-12-22 16:11:00 Stacey Oneil [facility] MID-THIGH [facility] POCT-GLUCOSE METER 2022-12-22 13:52:00 Jose Enrique, [facility] US CHEST 2022-12-22 11:37:00 [facility], [facility] CBC W/PLT COUNT & AUTO 2022-12-22 03:04:00 [facility], [facility] BASIC METABOLIC PANEL 2022-12-22 03:04:00 [facility], [facility] MAGNESIUM 2022-12-22 03:04:00 [facility], [facility] CBC W/PLT COUNT & AUTO 2022-12-22 03:04:00 Jose Enrique, [facility] PROTHROMBIN TIME/INR 2022-12-21 14:29:00 Rubia Brooks [facility] 2D ECHO W/ DOPPLER 2022-12-21 12:19:12 Wesley Mendoza [facility] (CW/PW/COLOR) [facility] 2D ECHO W/ DOPPLER 2022-12-21 12:19:12 Wesley Mendoza [facility] (CW/PW/COLOR) [facility] CBC W/PLT COUNT & AUTO 2022-12-21 08:40:00 Jose Enrique, [facility] S [facility] DIFFERENTIAL [facility] CBC W/PLT COUNT & AUTO 2022-12-21 08:40:00 Jose Enrique, [facility] DIFFERENTIAL [facility] BASIC METABOLIC PANEL 2022-12-21 08:40:00 Jose Enrique, [facility] MAGNESIUM 2022-12-21 08:40:00 Jose Enrique, [facility] VANCOMYCIN LEVEL, TROUGH 2022-12-20 09:34:00 Chalo, [facility] MRSA SCREEN 2022-12-19 12:58:00 Chalo, [facility] XR CHEST 1 VIEW PORTABLE 2022-12-19 12:50:00 Inocente Sebastian [facility] / BEDSIDE Medical Center ABORH, MANUAL 2022-12-19 06:31:00 Sindy Blanco [place] [facility] TYPE AND SCREEN, 2022-12-19 06:03:00 Wesley Mendoza [facility] CBC W/PLT COUNT & AUTO 2022-12-19 06:03:00 Wesley Mendoza [facility] VANCOMYCIN LEVEL, RANDOM 2022-12-19 06:03:00 Wesley Mendoza [place] [facility] CBC W/PLT COUNT & AUTO 2022-12-19 06:03:00 Wesley Mendoza [facility] BASIC METABOLIC PANEL 2022-12-19 06:03:00 Wesley Mendoza [facility] MAGNESIUM 2022-12-19 06:03:00 Wesley Mendoza [place] [facility] PHOSPHORUS 2022-12-19 06:03:00 Wesley Mendoza [place] [facility] OSMOLALITY, SERUM 2022-12-19 06:03:00 Wesley Mendoza [facility] EKG-SCANNED 2022-12-19 00:00:00 Provider, Default [facility] es [facility] Plan of Care Planned Activity Planned Date Details Comments Source Future Scheduled 2032-12-25 Screening for malignant [facility] Test 00:00:00 neoplasm of colon Medical Ce nter (procedure) [code = 449240295] Future Scheduled 2032-12-25 Screening for malignant [facility] Test 00:00:00 neoplasm of colon Medical Ce nter (procedure) [code = 182239527] Future Scheduled 2032-12-25 Screening for malignant [facility] Test 00:00:00 neoplasm of colon Medical Ce nter (procedure) [code = 739158220] Future Scheduled 2032-12-25 Screening for malignant [facility] Test 00:00:00 neoplasm of colon Medical Ce nter (procedure) [code = 575993720] Future Scheduled 2032-12-25 Screening for malignant [facility] Test 00:00:00 neoplasm of colon Medical Ce nter (procedure) [code = 673396366] Future Scheduled 2032-12-25 Screening for malignant [facility] Test 00:00:00 neoplasm of colon Medical Ce nter (procedure) [code = 034980438] Future Scheduled 2032-12-25 Screening for malignant [facility] Test 00:00:00 neoplasm of colon Medical Ce nter (procedure) [code = 595754428] Future Scheduled 2032-12-25 Screening for malignant [facility] Test 00:00:00 neoplasm of colon Medical Ce nter (procedure) [code = 109525285] Future Scheduled 2032-12-25 Screening for malignant [facility] Test 00:00:00 neoplasm of colon Medical Ce nter (procedure) [code = 793512674] Future Scheduled 2032-12-25 Screening for malignant [facility] Test 00:00:00 neoplasm of colon Medical Ce nter (procedure) [code = 940320556] Future Scheduled 2023-04-23 Influenza Vaccine (#1) [facility] 00:00:00 [code = Influenza Medical Ce nter Vaccine (#1)] Future Scheduled 2023-04-23 Influenza Vaccine (#1) [facility] 00:00:00 [code = Influenza Medical Ce nter Vaccine (#1)] Future Scheduled 2023-04-23 Influenza Vaccine (#1) [facility] 00:00:00 [code = Influenza Medical Ce nter Vaccine (#1)] Future Scheduled 2023-02-[address] [facility] Test 00:00:00 WELLNESS (YEAR 2 or Medical Center FIRST YEAR if no IPPE) [code = MEDICARE ANNUAL WELLNESS (YEAR 2 or FIRST YEAR if no IPPE)] Future Scheduled 2023-02-[address] [facility] Test 00:00:00 WELLNESS (YEAR 2 or Medical Center FIRST YEAR if no IPPE) [code = MEDICARE ANNUAL WELLNESS (YEAR 2 or FIRST YEAR if no IPPE)] Future Scheduled 2023-02-[address] [...] screening Medical C enter (procedure) [code = 979430300] Future Scheduled [address] [facility] Test 00:00:00 aneurysm screening Medical C enter (procedure) [code = 089610861] Future Scheduled [address] [facility] Test 00:00:00 aneurysm screening Medical C enter (procedure) [code = 449773259] Future Scheduled [address] [facility] Test 00:00:00 aneurysm screening Medical C enter (procedure) [code = 044906816] Future Scheduled [address] [facility] Test 00:00:00 aneurysm screening Medical C enter (procedure) [code = 861656624] Future Scheduled 2022-02-20 Medicare IPPE (WELCOME [facility] 00:00:00 TO MEDICARE) [code = Medical Center Medicare IPPE (WELCOME TO MEDICARE)] Future Scheduled 2022-02-20 Medicare IPPE (WELCOME [facility] 00:00:00 TO MEDICARE) [code = Medical Center Medicare IPPE (WELCOME TO MEDICARE)] Future Scheduled 2007 Screening for malignant [facility] Test 00:00:00 neoplasm of lung Medical Gre[facility] ter (procedure) [code = 011099522] Future Scheduled 2007 SHINGLES VACCINES ([address] [facility] Test 00:00:00 2) [facility] Future Scheduled 2007 Screening for malignant [facility] Test 00:00:00 neoplasm of lung Medical Gerardo ter (procedure) [code = 625360740] Future Scheduled 2007 SHINGLES VACCINES ([address] [facility] Test 00:00:00 2) [code = SHINGLES [facility] VACCINES (1 of 2)] Future Scheduled 2007 Screening for malignant [facility] Test 00:00:00 neoplasm of lung Medical Gerardo ter (procedure) [code = 046217937] Future Scheduled 2007 SHINGLES VACCINES ([address] [facility] Test 00:00:00 2) [code = SHINGLES [facility] VACCINES (1 of 2)] Future Scheduled 2007 Screening for malignant [facility] Test 00:00:00 neoplasm of lung Medical Gerardo ter (procedure) [code = 354845020] Future Scheduled 2007 SHINGLES VACCINES ([address] [facility] Test 00:00:00 2) [code = SHINGLES Medical Center VACCINES (1 of 2)] Future Scheduled 2007 Screening for malignant [facility] Test 00:00:00 neoplasm of lung Medical Gerardo ter (procedure) [code = 913835297] Future Scheduled 2007 SHINGLES VACCINES ([address] [facility] Test 00:00:00 2) [code = SHINGLES Medical Center VACCINES (1 of 2)] Future Scheduled 1992 Lipid panel (procedure) [facility] Test 00:00:00 [code = 67801112] Medical Ce nter Future Scheduled 1992 Lipid panel (procedure) [facility] Test 00:00:00 [code = 08969273] Medical Ce nter Future Scheduled 1976 DTAP/TDAP/TD [...] colon Medical Ce nter (procedure) [code = 071902112] Future Scheduled 1957 Screening for malignant [facility] Test 00:00:00 neoplasm of colon Medical Ce nter (procedure) [code = 388175158] Future Scheduled 1955 Sigmoidoscopy [code = [facility] Sigmoidoscopy] Medical Cente r Future Scheduled 1957 CT Colonography (combo) [facility] Test 00:00:00 [code = CT Colon[facility] (combo)] Future Scheduled 1957 Screening for malignant [facility] Test 00:00:00 neoplasm of colon Medical Ce nter (procedure) [code = 302916546] Future Scheduled 1957 Screening for malignant [facility] Test 00:00:00 neoplasm of colon Medical Ce nter (procedure) [code = 759174834] Future Scheduled 1955 Sigmoidoscopy [code = [facility] 00:00:00 Sigmoidoscopy] Medical Cente r Future Scheduled 1957 CT Colonography (combo) [facility] Test 00:00:00 [code = CT Colon[facility] (combo)] Future Scheduled 1957 Screening for malignant [facility] Test 00:00:00 neoplasm of colon Medical Ce nter (procedure) [code = 770617315] Future Scheduled 1957 Screening for malignant [facility] Test 00:00:00 neoplasm of colon Medical Ce nter (procedure) [code = 690771429] Future Scheduled 1955 Sigmoidoscopy [code = [facility] 00:00:00 Sigmoidoscopy] Medical Cente r Future Scheduled 1957 CT Colonography (combo) [facility] Test 00:00:00 [code = CT Colonography [facility] (combo)] Future Scheduled 1957 Screening for malignant [facility] Test 00:00:00 neoplasm of colon Medical Ce nter (procedure) [code = 250910036] Future Scheduled 1957 Screening for malignant [facility] Test 00:00:00 neoplasm of colon Medical Ce nter (procedure) [code = 631997695] Future Scheduled 1955 Sigmoidoscopy [code = [facility] 00:00:00 Sigmoidoscopy] Medical Cente r Future Scheduled 1957 CT Colonography (combo) [facility] Test 00:00:00 [code = CT Colonography Medi [facility] (combo)] Future Scheduled 1957 Screening for malignant [facility] Test 00:00:00 neoplasm of colon Medical Ce nter (procedure) [code = 815258132] Future Scheduled 1957 Screening for malignant [facility] Test 00:00:00 neoplasm of colon Medical Ce nter (procedure) [code = 186269798] Future Scheduled 1955 Sigmoidoscopy [code = [facility] 00:00:00 Sigmoidoscopy] Medical Melvie r Encounters Start End Encounter Admission Attending Care Care Encounter Source Date/Time Date/Time Type Type Clinicians Facility Department ID 2022-12-19 2022-12-28 Inpatient ER [facility] [id number] [facility] 03:40:00 12:53:00 [facility] 2022-12-19 2022-12-28 [facility] Jasson Wesleyphyllis Matias [facility] [id number] 03:40[facility] 12:53:00 Encounter Stacey Oneil [facility] 2022-12-19 2022-12-28 [facility] MendozaWesley [facility] [id number] 03:40:00 12:53:00 Encounter Stacey Oneil [facility] 2022-12-26 2022-12-26 Orders [facility] [id number] 00:00:00 00:00:00 Only [facility] 2022-12-26 2022-12-26 Orders [facility] [id number] 00:00:00 00:00:00 Only [facility] 2022-12-25 2022-12-25 Anesthesia [facility] [id number] 13:28:00 14:53:00 Event [facility] 2022-12-25 2022-12-25 Anesthesia [facility] [id number] 13:28:00 14:53:00 Event [facility] 2022-12-25 2022-12-25 Surgery [facility] [id number] 13:00:00 14:00:00 [facility] 2022-12-25 2022-12-25 [facility] [id number] 13:00:00 14:00:00 [facility] 2022-12-19 2022-12-19 Travel [facility] [id number] [facility] 00:[facility]:00 [facility] 2022-12-19 2022-12-19 Travel [facility] [id number] [facility] 00:[facility]:00 [facility] Results Test Description Test Time Test Comments Results Result Comments Source Tissue Exam 2022-12-28 13:49:30 Test Item Value Reference Range Interpretation Comme nts Case Report (test code = 104) Surgical Pathology Report Case: [id number] Authorizing Provider: Keo Heredia MD Collected: 12/25/2022 02:10 PM Ordering Location: [address] Received: 12/25/2022 04:33 PM Service Pathologist: Triston Armstrong MD Specimens: A) - Polyp, Colon - Transverse, polyp via hot snare B) - Polyp, Colon - Sigmoid, polyp via hot snare C) - Rectal, polyp via hot snare DIAGNOSIS (test code = 3220) [id number] p cyYSwFUgrdoUxPJxcoLmxXRSmTHFtLZ3vcKktbN f6rPeqYMEwblB3tQIbJKhze9gjJDU3f4uvfudhR AQzTNjoGy6veRCfoRpaXrDfIGWjZNp9eF83JIEo cX6bqKKuMFa5HMOsvEBvixLuKpQbNJNuuWHhaAZ 5JJWwJT8janreGRniWQxoGQWsiqY1QETehXAbY8 ZfFKDtPC2exfqrPXS7OCsdDNDgQZD3QyMsKILpd 0Mpmtp9JrPwcSWaMJoemNQmgibiywIfFARwNDAX KL1NWMOSQxJUR7ZVTnSRYFKUR5gSXJWGQE5OJWx rvDQeJSHmKqZnIVCVYDvMUiTOZUZQO06WFDVupe ogEMIiPb8hB16HQ06yGSHRD29DOBMmEVTWVJrWJ UGBD60WQlpvXRMoiUUaJA9HCFGDPWOMGOBPFU7K YMRrcWDrIIAiosPKCaGEKNPIZU9kKTWLANxSTJY LD68DPnjtQSIkgPIgPQ2BHOXXND1QFAnKG8NRBS HPPD7GKEGqrICtvHzkieOwEWfyx8MoSDgrGMTjB P8kjQulKKKqAN2fQDFgY8ydeL6lcqx1FlWfTAAc YdZ3DEQuyuT0Rmf7RMSuCRpfx8mra9ZuIMScUBr 8wDbeOyYhJSUom5ttgvQoQiMdDURsSOYvDLDblG FlX730l2emx9hnjuNuiKB6IKKeIST9NMlknbMyy qI6DOjgbAVaJyQ8AGiwuoFtYVoxvaKjmyYbXjv5 EIXtK787FQX5uFydf4heCCJ4YWYpIETlLtLdNu2 zfPNgX487UWUrICTUYIKzoBe3IFPfycLxddEwkV FAh551C792v7sbUQYokgSoeQwQviwal0xzL911R IPalGIzxlVbRmJmUUEdiWPkwFB1KLVmWQ8vrwpf UCpvJSlfCYJjicW8KGUlqSFwP6EnQRHzOM5mjyl tSYT3CExcWGNrZAJ5ZkEjKXBeo0Tfqip1LoMzkm 1ejb84DDF1v2IboJrhKYN6RLV0XqEjBz6wrQMqG GHvYW9eMxUxtTJpLLCivb87eChtFOcvVAL5XWSs cdMpl2Dca6axGxSkxnAvI7gzB7DeMPZoADIwTWE fRfKbgjGsc9Vkx6JvhXOwhZc8n9esRFKkFTPvgH cvs6elXPI3OHXjeIZbX6ginQ2nXHFvES6bigndq 9clCHpnPDeqHOLcaZT8vuJ9HEEubCPjM6UqsL5f DPMxYHpmLTFspsu3DtIyLm0dnQKefTmfCYxdSqw wYWdlXHBnbmNvbnRccGduZGVjXHBsYWluXHBsYW luXGYwXGZzMjRccWxcbGFuZzEwMzNcaGljaFxmM CzgClTxZXBiGEfqS5smDqCeHsYfEat8LPRviOSp HTRaQqk8XYLcoTGpGPJRmFsaxJ1rFCQvnTpngK0 wkKE1OZXpkoOpnXMLrF4gPNXLiI8hWfH5IRLkBb n0OLR7OsNtzEWobG0= COMMENT (test code = 3359) i0uqmDPgQXEztZRcWXTqQEqohrSeYEGmaTFsI3U ycvgjEQsxVY9bMO6ijDqorZJrgIThQTVjLpFit3 qpw981sFYqh9jnXZDOmmvivDe6xNbaD15ft6O9S ltpB85nzWEnUMN1VWEjPMSaqLQyYCGeWJY6BXDh tSRcY0mdVCJuED1ssxnmNTdcLDogFOQzdXZ2MOT dzSJhW9IsKCQvXZpmTNUxlvl2HaCzJc8dsTUqtE liZLonGZTcBEVkCYglYCGzWuUdVG3qs4Hzi2Z6Z IYwrI3hpRE0IUMkuoS2cAU3VLLiKXdxGKD2 CPT Code(s) (test code = 3357) o9gvaXEeMLCtpJCnBZIcDTttbfIsRLKfhFKu Z3B knhkiUOazUW9lXZ3lyZeonMKwaUIvFRAlSzWrd5 ttn527wKMuh8kzPQYKpiyszUi9uRifX14yr4D0P dvoN35yjBXzCQL6XDHjSZFwgWMvMEHtGCL0HLRv mBVyL6epHQGyPZ7wrkhvZTisJWtwRSLxgXA8IZC jqFOaF7AwIOFtZIduGAGnzey1CxKbPf5prEHxmE uyFAslXWWeURBaOHgeQFCxBxRqLHyyYEU3B9gvD XJ9 GROSS DESCRIPTION (test code = z8uwbLUiTYOogBKPXFNmFJUvEF8arKjalPh6 d [id number]) yXQLpgzW5bFZkPKzvh4nyXKZ5y7qzzdPNLmspKI KgZI9vXEnxZGCqAQ0dBrVqCKSxWkQcKMLqtUMmh zUcNlHaVUOdkLVchSN9AORqHD1jzdqzIYhkOFtx VRRqdoT6ALOyrNVsJ9RuPHRtYK4aixcbHSM6TMZ KEuusWn5yySWnsRvdGhRhLzDqTGLlAUEfQRLczL wvSVKdAPz2rH0ZDilgU30wd6N0Fin1BKKaYTQoR 9HnUW3zELHgjIQyS93TRuabPQV6PMONNbxfCcqj xFvgx4WdxTKvJLVyFYowoNCbJHJhYUBdPVjfLjP LBfTxGvY5Mrr8ZBZ1ZaS0CTo0MEMSMBSvPCA6WC geQsV8YRy9HHEpQV9aUNxmqCEfGVbrLnelINvsV 361IZmxSSFsY0YbT4IcPWquRlKdWErmWCRjFEQs ZLerROCsO0OBXAYcRNR3Ala5TCWuDCg2UNdlE8V ANLKgHIA4STL3JlMvBgR9PSt3FIIBRm2bYwY4ZB Z7MEX6UKV6ZFLeXGyvxNLvOEkiu9PzZpHiOTMlB KxidfY6FPIlfuLeXCodkZtamL3vDzCaUvOMPuBL n8y8zVopG40zr95gDBWUdoLpb9EcaxDmIDUnwhB FPnpqUUUmTR6SNBCzYVduLDTnDgMxyZZzN3quWS NbV66gm9WNf6FaHM8RSLv1bvHydilylW5tNCFrb hBcEQukY7VgDIEkEoVlWtIjUOc4DPEjqK3kYv0h eTCvwS1vaCYcXZboCDO6oZEqVGXvlXqyowNvkiN tYH5lBZIkRIZhU2ZmLJIoO64tBONdwI7dCCTlJM 4uCUFib3q7pIhcJ77ps98uzZhcUHZjJPk0HaAjV U1wpxXsg3XlIlbgxWI7FuSse02kdLI2rwFvNxOh VQTcaxCry3E7JCPii8N6KWQikrEagJBrcVTeMKO kmNPtacediCTmxE0xCE5kZQSwMAdrTXrlXMJ1QP E9SOIhyATsm2vtxfvvj6srH9yqJORgOFB1Nm7go XYsLXCgekR3y1ZmMQotPLDfYlcyKJFvROfavNYe OT2ZBGCqSkEeOSTxY0pvJAVpKL1YXFJsCMpaxnJ hVD2ZFWHgfZJAYWH6SR7eWAeiNUHmQ3AuB6Munu W9FWJbzkYXIvndIrosmHhqq6MetBImAYRvSKaad SZwVZInCHLhSWyhSpMQQwZfZmZ3Gxm9YJI2YrT5 GMh2DWUQJeEpGwHfPqOmMSi1ZcLfHPp7TOo9CVx LBeR9Rod8Qvi0WsVwOLH0NpZfEPc0GWUxFLslsr MtCPrkEyeuPVhuO48hyREhILkiVdAfYHdwoWltF WKqFZE0EX2TLs7cVZ5liLVnSCCxlB2bRK7dH2ad oZ2qJDvbVAPeGHfmzLWzQGBFOgmfuLCcipsufOX ydRppycRqDSZxeUZPVWP3DS7uSOHDPvaomBNyUN HcfPblPCcizT5lHBZrWlLoZJMjF9lkTaHtBH7ZL DKoGNyhxcBiYKRiX9RbinUwCBdhMYPmsb3gsEgw QPhqEpLlLWFqm4i1gBGaDAMaVT25X2KevhHlMRh gbWVkaWNhbCByZWNvcmQgbnVtYmVyIGFuZCIgcG 2cmXMiLNWmhW5wUXI5DvKoIKgvOJWsdZpvs2kmI YHtb5BnqOScI59gh4fevLDdb2OlLgA8ZE7xr52n eHE3aPVniNIlHhNvI16zrvXbpXXwr9XwgT7tCQA zJRZbLHCoQXYlaWOdfoHdtcYohQTofICdnO5wsb Hqq43aQHylaCWhSXThLHLmiVDldBF5QKDzpT0fz I23soMrybLJTB0gnEYhYY2LBVWaKFgloCztVYMx FQHUEmyiFULoYBkru7EaIEctwVdrYMToJeSjTBf fL7LsFISbNcMvRRkvRIEmT97dx6CJh9Ngg6sfsF wla5DopSEiKD3wwZKbGK5Ee1olBITkeRXmOTX9Y Onxh6meIMbqYYO4PZPqToMdCLZqEI8TYkLnFOr0 Mtg7MWAvVWz6HVz6MD3SUgNpHIPtTYEbNrB4NyO xPFr8ISzeLH3PMYalWWukYbX9XTF8JCsqIfUqIH PaDsMaPNRqWTEhUAzdsRGiYE6yrQgdGEZvBUVnI MM8AKBpjHMUu3PrRSVaKTmKZwHEAKP7MZcsgQYu XW0ZLCLkhoWvUGczsJrtcR3nrFUvY6loWqQmUem lcGljTmVzdERvYzEgDQpcbHRycGFyXGxpbjBccm gnCFjjOhDrHRNrjQMQc9MbICZELamzgpGjRVSba gFWIclhUqSuFDSmB9beRmAiAQkSWTKsbPBtGMCf jbCgu0WjMNvswlSjTBVtdVQvVEfdoYyuzWA6cOX ylSRiNK1xTCSrKPOyW6YqHURxP86aASTukR4wPP BfOE4yUZGcGQV1EVmqrG0kgXUkLrhzoGG2AcZuf 85xmRB0xqKhKcFsMAYeabHhZXNinJgbVELktFkz FE9zUCG2dzjiWgVkHqTvvBUiJeuofQXdEyjlL59 bXBWlDHYaxZe4hALgHAS1HV4mj08xwXJ9dDOrhU TwDbEiB62yjpWpDlItISyiRWZmiEoqOVebGMfbs 3BbVCosYDBkLCByYKW1oHHpo7BaM7juXZ7uxTYk QS11pHEayWifi1GnqJv0iNNeWSDrCBIgsOwmd5P 2RDVupeXZCsqrZUFuVOjOYPS4oY7hSUEfAMU4CW MuzbQLZgEgAaBKfIKitYYqTLEpDBawIM15x6miI CPkOHcBOhdePBHci9f4cZsptI9ePOQmX6LpDA0s YLEybbrctYLaGDL6yZ6dQBLxYDCzyxTBWaqhAIP vRLrOjP9eUASvUorodaitIYVGLNpVS7JEVXleYQ AfWLswL4XtHSYvxEQlCM5XPRLuprFQSktvNJTcI KZwwWAWt8DsSRTTUescMjTfKwNfXkAMOpwpeDjz HdMtoILpYeI1OUGagDCfXOB7KF6zsIyjQMWwN3G hA3QlgjA6KBOgooVZEfjjKPOvEA7AzT== MICROSCOPIC DESCRIPTION (test code = w3rikEBdHFDavXInZLWhZRgqhyGvBA NwbHRwZ3B 3371) hthmiTDbkQG5eWT5pjXejxWUgyJAlDRSuSpJzz3 ueu640mJWlo3kxKLMLgutatKh5oSpvA06my0I6G nkmY85riBNeRHQ4LJZxRXPotFHrJJAeDZV5BXYl bOLyJ2ebVVVdFY7gpwtkTEorLRzlQGEhxSV1QEU ejDSyF9EvLQNjFGpaQJUbqtw2XoQzZu5wzLSmpA hlNNlrEDGvUCDpDWvrIBIpPiMzUMcczv9tY95cx WMgYXNzZXNzbWVudCBzdWJzdGFudGlhdGVzIHRo HLTrRp51UJDijOPboy7lsZEcTCefUJI6 Gross assessment was performed at (test [facility] enter, code = 2777) Department of Pathology, [address] [place] [id number], Technical component was performed at [facility] er, (test code = 2778) Department of Pathology, [address] [place] [id number], Professional component was performed at [facility] enter, (test code = 2779) Department of Pathology, [address] [place] [id number], [place] [facility] [id number] 13:49:30 Test Item Value Reference Range Interpretation Comments Case Report (test code Surgical Pathology = 104) Report Case: [id number] Authorizing Provider: Keo Heredia MD Collected: 12/25/2022 02:10 PM Ordering Location: [address] Received: 12/25/2022 04:33 PM Service Pathologist: Triston Armstrong MD Specimens: A) - Polyp, Colon - Transverse, polyp via hot snare B) - Polyp, Colon - Sigmoid, polyp via hot snare C) - Rectal, polyp via hot snare DIAGNOSIS (test code = [id number] 3220) FuZzEwMzNcZnRuYmpcdWMx IHtccnRmMVxlcGljMTAyMD OjYC5rzTqjjEn6iFaeKRKg nkG4oEKoHIfzq0npRHI4t5 blvadwFUDfUTaeYo1zaHJa wZvsEmYySSHzDIa1bS76NE LwxG9jkGDmKLw0HLYbsVBj xkHqYwNtLCZhyKFgoVQ8KE NcVH1xpfbxIIreVTfjFEMe jzK5CGCmlCLpA9KfNNBoAT 6elcjuFNF0QElaIIPkTDF9 RmNrRQNug2Evexu5YoTcnX FyZFxwbGFpblxmczIwIEEu SPVTNU9ZENRRZwQJN9UCZg YSKPDWS9aDCRMNKT8MBEhs cGFyXHRhYiAtVFVCVUxBUi RCWVPSZ31GPDWraedlAJXv Ks5xZ95AQ84tLHSMK05CYK FuRXDUDLePYGQWS78FBaug YXCgvTLdCD4BRBUKIKLWWW YKLK1PWPTvgDJxQWVuzuUP KoZBAAEKXA3xWVQOGYiGIR MMR96DYubcHAMeaGQrAP4G GUURWL1QZUjMW5SKYXUQGY 5PTUFccGFyfXtccnRmMVxz j0IlVBvbYYDuLE8ovIauLC OoAN7zDGRnV3jgxH2htwb7 RuVaOSAfYuT6ZTAgxuA3To q7NKQbFQcms2yjk1JiTJGr ZNp6cUxzYkMaZULao7ysss BcZmNoYXJzZXQwIEFyaWFs Q742z1ecq5ztqcSvlSU3OG KtYVZ5FEuzqmCauiO6DUka qRHfFpA8OWtfpjTtFYncpn QqtnCaZqj5DBJzF861RGZ5 rBqik0reKHV3JLYcXIGxFs JlUc3mqEFcJ088ZHMpCXTD IXWlkCr5WLWhwtJblkUfpG TLt315K688s1vlLZYlqbLq aIzVjsomh8qeV919GBLqzT VydzEyMjQwXHBhcGVyaDE1 KWEiDB6acfwuRKneJNjzGE ZuwoK7RSTuxYVxE1SsKICj UH8ksvonVZL7DWiyFPHcWI L8JhJuMUWjo6Liwwu4MyQk ed7mkq50EVX9q9SmvMncPV R3WLQ3UdViUj5ziTYnLYJc TE1qGoEmpVFsBRYswd94hB hmPRmbVYG7ETCrbsHnl7Tw d5pcOfFvueDzN3rnZ6JcKM RoKJApTVQuReYbjeEuv4Dk f0DrbDIknAv9j8gpIPQwCD LgtRgyg9znMPO4BDUbwQHu X3dqyD3dGPTuAY4urwinm7 zsNRdfUMilHJGneYG0fgQ2 LZWwcZEhV4CgoU4rFFFfYI rnUBNeiuy9QiEwNz6skLZx eTcyMFxzYmtwYWdlXHBnbm NvbnRccGduZGVjXHBsYWlu XHBsYWluXGYwXGZzMjRccW xcbGFuZzEwMzNcaGljaFxm DYgmRnOnDWPnVJgxC5lgFf NxWgRiIeo7AFIcfEGaDHCx Pqz4AOTnwJZkNFFAsZvwyI 9zYYLtkAcweY0fzBD3MLAm gtIksPAHwC0nBSZUlA9eRg F5TGYfTkt7LYG2LrTxxOMk fX0= COMMENT (test code = r9rjyMZyCEQetPLhAJQdFO 9749) dolnExGAVgnYThU8Arkccp DUwpYM3hAE2iiGrhoIOuyE EwYSOfCdZdu5gah604zILz m1bgVQARolqrrEb9hVopG7 7th4N0BarhZ73ovWGqABW4 ZBGsWVFbrVRnLODzRHL2VV IohWDmW0fnEWTdEI5bgipm TIwuERmrCFXxgCI3XKEocD UeT1XsJWRoARdlUQXatya7 OuMnOf1ocZDghZeuADyaJV EuBKMuBQkhKQJfRxZpIZ4h f4Mus8K0EYXifA8xaAW9JS QwseG8rAD4NPEwUAlhEZC2 CPT Code(s) (test code s7lhnDUgOHDkhDWoWPZtPH = 3357) irbmLoVHMexKYbT0Byowmd EOouLD8kND4qqJmgpQNtiD GpCRAuHtQgt6gqp868cABx f4kfXWOJaqyxyKx6bUogW0 6zt2O3PycoR15tqUShWTY3 ITHvSHVciSYaXTEoAQX8GA VxnHKrT5awZEVkVD9ihssg HMtuGQkzSHTilPD0QMMjpT MbL2KnLCReHBhnGKAkqle4 AgNeMd2biHRomYglBGbwBL JkXHBsYWluXGZzMjAgODgz FAZ3K9bdYXS3 GROSS DESCRIPTION (test o1ibjHWsVTGelDNMJZBiVV code = [id number]) TeZC7ptQxkfLn0uRvvYXAn nzJ4zUOqOUaht4ynYKP0f1 sasnZMBmjdWNUlEI8yQVqs UZUtWE2kLiQqXOSeMzRnRX BhcGVydzEyMjQwXHBhcGVy iST9HYMhHP8eyhdvKDsePB jnHRAjuvF5HTBpuWFmJ6Qk UXJpXS1jcmqiOKL7VYWDUu mdId6jpAEskEapNiCzQsUm YXJzZXQwXGZuaWwgQXJpYW p7rR8ODpfbB58al5I5Neu2 QVVoRZDsV6HhGM2kYUUzbU SaZ72GVqkbYJC6YPCUUqpb VqvgtBnmq1FjwRJaUCTwJL xcaWQgNTEwMDAgXFxkYiBP LaAzBrE2Krl0EQH6VxX1LD b1OOSQOWPgFRZ7AMxkArF6 BVm7SZWsUC7iMHmnqGNgHF raMpgyFYlgF468IDcjPMOf Q3IpF5GaBYzbEySkFDwiQS RpUIFzBVesSPSfY8LQFVDh OXK0Wcz8IVHvPRu4YRgsA1 EEGLYjUGL3XUS6UqMaOaE5 CCi6PUEIHc5xMfH8ONE5XD T5EAI7KZRzCBpyrOFoPOak j5LbTiSbAXRpETolbiZ6GI VaapRnTXddtQtqqF7pOqXd CoBACkMKd4r0rRmvH68iz2 5jIWJEcgRuu7VzpuChAXWu ojDHLpglIXEoKY2GZLNePD bxFYInJuLnzBLgZ1aoUTIa E81ye5AXr7KkGK0JRGb4fs FlxvcndE1aTYMnevVgICcz I0LsEYTePgKpAjRyGNs6EZ ClyT7fNl8sbHGejI6thQDq ORfzCZN6yHHtGFRrbWxuzy MybrJvTD6nLVAiPRLpH7Dv ZUHmW84rWBPicG3cPJEyXN 1hQMPoa1v4hPtkY32rp91e pOvrQVZmJEf4RsQkHM3frp Bjr2HrQlgxkQA2KfKng80m yJZ9wbWxJlRdFJPysyOex3 N7QPHxg5R3URPfckYzdVQg dCBtZWFzdXJpbmcgdXAgdG 1kBV7zERXlYEkmMBkeQMA7 JDS1IYJndGPgv5hzdwbwk0 ncD3skADUiKUK4Bu0srOOa PMYcmzG7t7BhDZmuFAXyYf qcWAMfLTnxbERoXB2QHLTs LyByEIBiW3dbPEHtUP8DEC PfKQijcwRyNS0GLCIzkVFD WTB4UT6wIJteJSQxU7SyO9 GaipS9ROLdhyMGAymqIfpu vCfte5XooKXzDWUoCQtkfB QgNTEwMDIgXFxkYiBPVlIg WfD6Cxj0PAR0VhJ0TOa5KV DEBpQlAgHgJuLqHWl2MgBt PPh4TOp8NCoLOlH9Hsx6Ba c6UtEeOVK3LjDbXUo5LDTc XFxzcyAzIFxcZmwgXFxuY3 1ccGFyZFxzYjEwNVxlcGlj KQPeZTT2LR7GRn5tEC0fkC LpRQDefS2gYU2kQ4xnrO3m ZFxwYXIgDQpccGFyZCANCl xwbGFpblxsdHJjaFxmczIy THEtqOCGVDH0AP3yNQELFp bgjNDsEWTmoZyiYUvrvU6k EYMxNuSdUHPxS7uwAzHpFM 2JMWTbSXwrfyBqJYLeL8Fa naTsAHpwRBXwpa8clXasYV tfGlQxQOGbv8f6cPOaWEEn GA43J3OybnPjOOepkHOrfG NhbCByZWNvcmQgbnVtYmVy QIIsCEFkrX4jdUDfSJBdgU 2nKLS3IcRkZPknSHTtmFsz x3kwXGYup5JjbDTrB96my3 xydAZwy6JdRgY9JP9gn31x gEQ4wBUtdUXvWbOlG03rdy KjtSOaj0OrmO9rARZlQYNn IDAuOSBjbSBpbiBncmVhdG UuhOIypI8wbdVvz35zVAem xTPmMZGyJIEvrLHcvZP8LF TuxA5yuM48ysIgeaFKKU5q iYXdXL6XAEFmYUmyfJiwWA VlSIYHGylzUZMsXBkbj1Gn MFxlcGljWHNhMzAgDQpcY2 OyGUVxUoBhDKwfCYVaO16w x3NIu5Zdd4aldAbyn9BsmO LvAS2qiTVfYJ2Ky5ffFUMp lCYgIYI1CJtbf4ioPDocCC E2HSMrRnGuBBJrJZ4XQbHn SJn8Tdu2VXXaWVo9AFa2OP 6AGfVpQBItTBTnTdS7HnTx UNb8FSauGO7AZYbbBXxbXx W8GTN2ZJcmWgInETRfSmTy BAPtWUYtTOnquNBkPT0jaS jqOOVmKEZpBTX7GRDfuSCF x4BmYPHdUAvKSlHEJNV6TH pfiKAqZY4TPIWbrtExMYex pMcikB7yvREyO2fkDfQvOe xlcGljTmVzdERvYzEgDQpc bHRycGFyXGxpbjBccmluMF qjLvJhQDVxxYMNx0PpXPXA ClxmczIwXHBhciANClxzYj VyMFPmS1feMqMcZXhTWDZi zTBxPINtmuHrt6JhRYyykz BsYWJlbGVkIHdpdGggcGF0 wFKbqQQwJG8nDWRmHHRsC3 VxARBjC39sOWKpjR8nNQJx TB6hGAXmTRJ0AReblC0byU UmQygleGU3MpEha74ysXR0 cyBvZiBhIHRhbiBzZXNzaW zwHWCmzQokVZ4rGOO6eiss ZyAxLjMgeCAwLjkgeCAwLj ymY77jJAMpBGOzoQa5dIQh YNP0PC4bh03btZK8xUOagI PlHzPjX75yfyJbHnNtFGok KYSxpMssWEvjRJebi8PaDM rlJMXwKWSoIFN6dBVmm6Iu F8riFE1uyQYjAQ45xJHgvV sqg6NicVl1xOWoLXKkHUHf vHvlp2M2XWRblqGOReqmQL WsRYhVEZK0oD3iLTZkQCA0 XHBhciANCkMxOiBTbWFsbG QxBFNtJZvdUG44p4baMNQf INtBCryfTJAqu0o7rJducK 7tIALlF4LtVR0pVSLfuysa gGIfSPV8eV5hNYMcRWQcia QBItzqTEArJQpHnY3sGNAg NsupdeofPVZQAVeKX3JKTR bwWBScFDyxN0DaUZQlgZAr XB0ICWKsggPDNynmVWVgLU NquZHIc8FkXSWXTefgCvUb ZnMyMiANClxlcGljTmVzdE UvPfU6MXYhpZDdQCN7AU1o gXeeGRYnH7WuA3NmxaP3AE KgnbKXPltlLYEyYY6ZzF== MICROSCOPIC DESCRIPTION k8bazWGoQVUrpDRgNAIeXN (test code = 3371) lpykAeWSXvrHHrA0Rmbhlt QVozBO8iGC3tcDywzEUvmY OzKHXfArGeu0xvj506xYNc c6kmHGRAmyrjwNz7xPajZ1 3kh4T2YanrQ63mlFAdCHD9 WLZbIROtpVNgDPQkABC1TI CykOPaD2nzFPFsJT7pgnqv ZQyhDQxtRASsrTK5LUTmmN MzR7NbHMNqHIpyALRpsmn5 KgMeAw3ceMKepSvvCJavVS JkXHBsYWluXGZzMjAgTWlj rd7iX21alKFbHUMzLXRapV VudCBzdWJzdGFudGlhdGVz FVMvRGUsMe71CYLptAIrup 7aoMVoERxqWUG4 Gross assessment was [facility] performed at (test code Medical Center, = 2777) Department of Pathology, [address] [place] [address], [place] [address], Technical component was [facility] performed at ([facility], = 2778) Department of Pathology, [address] [place] [address], Professional component [facility] was performed at ([facility], code = 2779) Department of Pathology, [address] [place] [address], [place] [facility] [id number] 13:49:30 Test Item Value Reference Range Interpretation Comments Case Report (test code Surgical Pathology = 104) Report Case: [id number] Authorizing Provider: Keo Heredia MD Collected: 12/25/2022 02:10 PM Ordering Location: [address] Received: 12/25/2022 04:33 PM Service Pathologist: Triston Armstrong MD Specimens: A) - Polyp, Colon - Transverse, polyp via hot snare B) - Polyp, Colon - Sigmoid, polyp via hot snare C) - Rectal, polyp via hot snare DIAGNOSIS (test code = [id number] 3220) FuZzEwMzNcZnRuYmpcdWMx IHtccnRmMVxlcGljMTAyMD MjIX3okAcmwRj6fBfnBBNh naK7kSZcWIbmo3siKBD9q5 hkcxfxBGQuLJsrGe3fiWRm dDhzIsPtNFJfQTk0jD08IK MqhS1rtABdQUr4DQVffBMt alTrBdIjOPEcoCVeeQI7BF YrLG6lnyagNEeyBPkvICCz hlQ3QTLyhLFdZ1YfLTXuRB 1rcgppGDQ4NJcxCMTeIYM5 HmSoQFDag3Uastg8LyLdrW FyZFxwbGFpblxmczIwIEEu FWFMGL8HJKQBYzQEF7RKGz NAAMHSY1aXOIBSLA4LPEsn cGFyXHRhYiAtVFVCVUxBUi XNHOULH31SGKBjlaczTCUm Ry1nV18FA99bVADDY86DSE XzRBSESBvMDAZFJ33MFqzb VQUprQPaRP6ZHJCIBYUDPD VGCV4XJLBmkQXnSWVunrEQ AbKCXGDDKZ2oJWIGCQtVYL JDU31TTtkfVPRnmSBnCX9I WRDXJL1WTVgDR1IHWXGHNQ 5PTUFccGFyfXtccnRmMVxz r6NmPWlcBXQmJY2ceLxsXT QuWS7xQMNoQ4azqM8zjpo0 OdQiUEArFlE3AQYmprB9Th i5MRXrXMkjy0bso8VzXZHv TCx6eGsvNwNpLCOvg6rmkj BcZmNoYXJzZXQwIEFyaWFs G393o0vvg3oxisYilVU7EU XnDLH8UBorgmKfeoP6BIzd bGOxLjP1JJpeleAeGYuozp GuvxAmUuh6ODFvU144ZIN3 iJdai2yfSVN3RVVwWRYcGv UkEw3gqTJhO964GMBkKXQN SDHeqGh2RPFxxiIkorKvzH NBr249S017h0igHMUlbgPp fDgBohodt3moH857EESclO VydzEyMjQwXHBhcGVyaDE1 MOGhPY9sdzokIGyeEDlfNT InrdL6RSAipZCtA0FiTBWc LZ4hruknXSE3KEqaMXOzLN Y5DsMpQEBba6Uclmt4AqVc rn3lqs74DQD5p5NuqTwjNY Y3UKU6VfWwZs8bxXGmBVAd PK7bWiEojYJvXPRzzs49xY mhSYacPUS6KVGpraAso3Au t9tpGyRdhsGaN4ucO9AwYN QkGPUcHKAeZqZmziKrk8Ll u1DzhZQqzGd8v4pwGTFeTH GszFcob6eqQOK3EFQceSKu L3bpkC4nWAUsNX4hiicnk8 ofLRbbFRjfOEMkjAR5zhP7 POWjyHAuG6PafK2zKRCxYL fjMRPfwsq7XaJoZe2hhDRw eTcyMFxzYmtwYWdlXHBnbm NvbnRccGduZGVjXHBsYWlu XHBsYWluXGYwXGZzMjRccW xcbGFuZzEwMzNcaGljaFxm ZAwhBoOfAKUeUQgdF7jjBo TySmLdTrv6VNCqaLOsGMTe Wyc3WUMzrZSgZRWIuHpyfP 3dTRUzdPxfgX7mzKW2UQLz huIklRXBrC6dYDNUhI8bRf K3TTQtZjc2QRP2ZlKlsFIp fX0= COMMENT (test code = q7wzjHKlMUZzvFYcDGUhJU 6729) uuhtJkDHGhlCWnB9Bcekmm BDkiTF0dNM2vvVsrcWQcnK YlCSWxNdPve2xtt262eRVg z0joAKKHzwqqdNa3kJtxL4 2kv3M6LqnuX07keHGjBJM7 YUFoYQCchYXcVGJhQOP5XN KlrXTnH8fpTWLnJE1igtik ZKkzIPpuYVVphPI6OIYnqQ LzB3OyVNMtXJxjALJpisa5 ErZvOr7ddJMhuQuaCRvcUO IuYIKaWNxmQDShUhOpOV1e u4Pal8R4DIFbrK4pvPZ1MT JaitS7oYJ9ALNoELvgYZT7 CPT Code(s) (test code m3ibdNKxSADuiOVcDABuBT = 4347) zzjaGcFOXgzVGpN8Ofknwp QGurUH1dUM9plDrxkMGdzH MhKGDzRbHhl5ctx853lFJd w3qbCEHVxawfnDv5pWmuT2 4ie1G5TposT74xoNBnHTS9 OWUrWRXxkBLwUNDsKPR8WM CstLQmU1bmMDCyES1rbddf OJomBIwjUEStzZC6YGZlbY KuY7HcFISxFQzuXNEhsct4 TxLqGt1jjDXmzKwtPRjqKI JkXHBsYWluXGZzMjAgODgz FZZ4L6vqHXC9 GROSS DESCRIPTION (test b7lovATyMLLwgCLOZKHyNW code = [id number]) PyHI5kdTflzFc7pCvjGUTr tjF8sJSeZHkuc0wlFJZ8f1 nbolYPDdrnEBHpXS7cSUlr ODJrIK2cKsSeAEJlHyXuIR BhcGVydzEyMjQwXHBhcGVy aWO9UBHaWE4qjwvtUHkgOX vwGXYmezQ7LLQmrWTtB3Oh PDUwPK6sqkwmQWZ5KDMSBy neUx7ssSDojEaxJeKwWrBi YXJzZXQwXGZuaWwgQXJpYW q4xC0LJipeI85wk2L8Awh1 YZGoKBHdK6HxOQ6wITUlbC GoE19RGyfuGVS2ARAZKoku EplpdPtbn9VpuLRgGALiXP xcaWQgNTEwMDAgXFxkYiBP SlJmWcX5Okv0NYR7TlB3XG q5HFJBSZIrGJO6DBueWoN7 IZu9HPUhMI2jEZhpeEThPY anXwgyQFsiD607KGzdIFEt K3QoQ0EvCEtfXnQkSHmsRI GhACOgWOarXIWiR2EQMJTn AWZ3Ogd7WRIbMOs2HVvpK6 MGNVKtOFP8LUK8WiXdRxI5 AOt9KSGZNl1wCkD4PKL6TT D0CFI7DVGzROyyiIQnXKvl f2GyWvXeLSOlGJnsiyI9FM BpraCnJJfvnTtshJ9gTzYx DfVXWfTEn7a0yAumE55jw9 9gCTAIrwVhg4IhjoSkFTGm ucXVFuhdZXRmPD5CJKZnLI gpHWUgIzEluGSlJ2rqFAIr L94ps6ZTv9LaKI9RHGd1km KipbjwvA5wXSIdfmJpEVrs O4XwJLXpXeQjMfMdWFh1ZJ FvlZ8yQj9vkIKysP0tbKWg ZNwiZLP8rFFvXUWunRqdef ArwsCpVJ5aFEGjIFGyB4Yx WUGtD54jNNXcwB0cDAYbLS 2sIVFom9w4zNyyJ71mt87a fBbhBCLaIJz6GxQhMT2uda Wtu5AjPeqytOP7WjBdy85s yIQ6daBzWpXjONFmctOlr1 J1VGDya8I1JSAegmCbvPAp dCBtZWFzdXJpbmcgdXAgdG 9cLT2iSYMiPVetOSpoBUW6 USH7RURphUPhy0hpsykks3 xbD8reJQCfVQJ2Ul5wyRRx TMMftcW8u5WrGAsgAUPuGf emQHBzLEqhuKVaGB1HJOYn JrGfLEFaH8zcGZUlAR5DFJ FuXSbnntFhAO3BCHRdqMRC LFU9UW8uTXfxUMYoI9TfG9 IuirS6ZVWmzuEMTzucYmkm mItkv1UhmMDoCWNrHKmmkT QgNTEwMDIgXFxkYiBPVlIg ZvX0Gyy4XAY4KrV6CTd1OR GQLkQlJwPuVjGjPNz3BlHp PJv5IFh2BYuOBxL0Ziy8Vz w3WgSpIRY3KsFgYXl8CUWp XFxzcyAzIFxcZmwgXFxuY3 1ccGFyZFxzYjEwNVxlcGlj CTWlGBV1BS4TMv4sBD7cwL IqWWQcjJ7bLB7sM8ivtY3n ZFxwYXIgDQpccGFyZCANCl xwbGFpblxsdHJjaFxmczIy XTWlbZGRNCK2TK0wKJGHTy mvzGKoOJPctMvpIKbcmJ2n EMEiRkGjZLCoT9ldZbGyXY 8ZUXEwWLwfjhHuAYXnV0Xr yrAvGTmuDZDfgn3oeFcmPS xaXpExQLYom8u4hXAxMNPk FF13M9GgwkWnXCwqnQYkmB NhbCByZWNvcmQgbnVtYmVy PXQxLTNvzO2naBSxSEOppD 6hLES3LwHuFVcyKAMksEhe f0udSDTmu5QaeFScD47hx2 fdwCIli6YqKfW6SH9ua28s uJI9bMIasSJdVdIkV41qiq XxfHFph7UovK0jGYZqKJQk IDAuOSBjbSBpbiBncmVhdG MksAIsoJ9rgyMpy04bGNau cPHvLUOdGPEpeZVvjMK4RH KmgY7mdR42gaPsagSZCQ0b xXViNF8XSZLwLPzycNmoVW SoNCGTBkcdGMTlZArwr3Gc MFxlcGljWHNhMzAgDQpcY2 ArXCSrCcOtYLhtVPTiR63p j6ZLj4Rre1xurHtcz5JfbW CrGL3ofSZmEZ2Ag7ytYYFv lZCnLYH5GKrgr8iiVJztUH K8ESRsLcVkZQPyBU0OMlIh WXf1Gqm4XNJiLNa7OEa6VY 1IEwCpKJSvGZVlMtJ6PsDn CMp8WLoyQL5KRQqrQNtzJx F5UEL9FWklGjEzTWXfAqXs UGRnVUDuQMditECfGE7tvN umKPKeOBZuTXZ1GZFanZHI k6HfOXRtDKtQCxGSCTZ5FR lgiHRrRG5OCYFsztNvRPrg bCvrmQ1gmNDfY1rtXzLzCf xlcGljTmVzdERvYzEgDQpc bHRycGFyXGxpbjBccmluMF nxOmFsMKLpiVXUh7DxBFGK ClxmczIwXHBhciANClxzYj ZuMSZkO2fcOcSxEPjSXPHm oOZqFQRlcjZqd4LhNPxttb BsYWJlbGVkIHdpdGggcGF0 yDPniBYbFW7lANGkLUOzJ1 IkITArS42jRAQpfN8sAYYu FG1yYGLxGCD7SXprvK7usC DoTxqcuSS0WjXkq22bzSC8 cyBvZiBhIHRhbiBzZXNzaW tbNCThcVbfNT1nJAT3qqiy ZyAxLjMgeCAwLjkgeCAwLj hyE99fZVIqXGSxaZs1pZFx TON8OC7yd99ftBW0sUVjxV RpMcMjK67wtaUjVzMdQEou JPDbwBmoXLvbRIjlf3EnMN auHARvULVpKRC6nQGha0Pg E7esIL1zkUFaMQ51zUDerB yvm4RemKw6tOArADNuEZDb tOfqy1Z3ABAqpxPSMlhrJO YqFVbLRIU0kS5uBDGiYPI7 XHBhciANCkMxOiBTbWFsbG NkJOBuNKzaLE68x3nkRZKn RWbXBunpKOWuw6k1pRiabN 3aMDQjA5BxYT7bFYSgoqjt tLXuQHW0aR9qVAKjHCLvgr YRWjyrURYxJNuUyE6eHELr HdicifxwLJDEUFyPZ2NOSA oxNIJyAQnnP8HpEJEfzBPk WA6XXQBhvpLQEgzuHOEdME UvaYNVc0KpMARHSixuRqFh ZnMyMiANClxlcGljTmVzdE LbBjI9KDTzqJQtSDA1YV6p fEtiKWYmN7UdN3HczvG6CQ ZlukONZyliPMDdEM0TqJ== MICROSCOPIC DESCRIPTION h4pcrPMgKBUnxJEpLDZnNH (test code = 3371) egecPyMGKdnBFtN1Cwyocf KPynEO6jVT7qtFjzsGUjsG SjBTRsPcCfz2qij220lJFl w3fbDMTJncrowJk3vDxzT0 6xj6N9VkamS20lwTXbVOI3 ZMUwNKXeiATrJQLtBKV2PP AljQXjA2yiZEKxNY6htypy MGzlOMxqBWUkaJW8PSEixP EoH9SoNKZcSXasWFRgpjn4 DrNxXd5liQBcsXrbNOnwOG JkXHBsYWluXGZzMjAgTWlj iy6kY24giMDkADJePQSkdA VudCBzdWJzdGFudGlhdGVz WBOdENOmRe46ADIsmBZonu 7phKZoWUkxRZH9 Gross assessment was [facility] performed at ([facility], = 2777) Department of Pathology, [address] [place] [address], Technical component was [facility] performed at ([facility], = 2778) Department of Pathology, [address] [place] [address], Professional component [facility] was performed at ([facility], code = 2779) Department of Pathology, [address] [place] [address], [facility] [id number] 13:49:30 Test Item Value Reference Range Interpretation Comments Case Report (test code Surgical Pathology = 104) Report Case: [id number] Authorizing Provider: Keo Heredia MD Collected: 12/25/2022 02:10 PM Ordering Location: [address] Received: 12/25/2022 04:33 PM Service Pathologist: Triston Armstrong MD Specimens: A) - Polyp, Colon - Transverse, polyp via hot snare B) - Polyp, Colon - Sigmoid, polyp via hot snare C) - Rectal, polyp via hot snare DIAGNOSIS (test code = [id number] 3220) FuZzEwMzNcZnRuYmpcdWMx IHtccnRmMVxlcGljMTAyMD OfPD0exDpcpGl0qMdeYTFg heN7sNYhTWyqo0ykMEY0y2 otzgarFFPhFOoeBc8otVXr oBjvLrYxAGZkOTg5wB07XA DjvQ4tgGNySOc1VWUlaQOq lsJlJcUvSJRkpEKzyRQ1FV GjNR6msmtvWXqaNZblNINg sqW8HINiaCEsO9AlRJBxZT 8tecwhELZ1YZesUKUmQZE7 IwSkQWBti3Wjyrg0FwTnqX FyZFxwbGFpblxmczIwIEEu UPMCRZ4RXWKKKkBDX7TGDk QPQSZZC4zXPFCNBY0SKLhl cGFyXHRhYiAtVFVCVUxBUi JXLYFFM98FGRMqnhmgJXNk Nu1rZ18EB29jETDDA62FPI ZjAUPOMHcGKYAXD07RBpry HRRwkEXaTQ8JFFWRNZMSJJ FTNU0LFQBewSAzCWSnkrCO VqJPLBXRVM4fKZPIMIbFXJ JVD15VKohkCCCwiFPjQD0P AOBGTV7BVFmKV6UDZHBLYK 5PTUFccGFyfXtccnRmMVxz p5BmSHjiMUOeYE2jbPkyZK EvNR3eSLJwP1llgV5aqco3 RhRhFBPgAdU1PTEaetA8Jt c3XGPkQDilo7mlm8IrJFCe YXn4bFalUiXcAEPvx7jqja BcZmNoYXJzZXQwIEFyaWFs E674w6jxi2qgvcGbiVE4TF NzNMS8PWmejbYkwqJ8BSdj mGJaVyZ1FUttwhFdLQibkb ZeqtWnLlm4PVUrT367DYG7 eCrwa9vaEBM3FKSqPPRqIb GpBk0hoEOiI454SGLtYVWS AAWxrTd4KEBfbaWhyfWohX SYr611P465n4fjBGBokwAa vGlKyizxt5pnD461HHSefM VydzEyMjQwXHBhcGVyaDE1 GGGtPR2qqdyjOMfeZDcnMB YmdcB1DJKffHIeO6IxJUCp CV5iazwrPQQ8QJrcHORpWC D3IsPaYGNbf0Ykoov4PjYk ro1epn42PTA7t5MmmWvrHR R3KWM6TtDyUq6lnGFjLHHc SQ5xJePizHJuRMIzxx23lG lxVZdhYFY3ZVLfklZdq6Td d7sjJqSnkzTmC9vyS4BpBF VjTWYeYUQgSlActsQno6Os l0XccEJlyDe4u5wrTAMxCI NsfQema3yjSMP2DTPtdQHc G6stxR6qPVBmGI3onaovr8 olUPsdBIdrKFZvyCY2syB6 NUWouQZtY4KkeQ2vFEUqTD lsLIUzynt1VnZdKi8nbKSq eTcyMFxzYmtwYWdlXHBnbm NvbnRccGduZGVjXHBsYWlu XHBsYWluXGYwXGZzMjRccW xcbGFuZzEwMzNcaGljaFxm ACtxNtQzRXXdTWtpD2tuWk KgWqQzYwh8ZOBhwVXdFKAf Jqe6KIGsbBPhJEDYqBlamI 7eAOQmlYbqtM8uzCM0KFRh uhRwkJDExM8dVZLEiU1wKs M8OZHxEjj5QFO9ZzZxkSIb fX0= COMMENT (test code = g5yjuLBrRNHyoXBnOHCaFE 3356) vlbcRzPCIatRGxP4Beztkd GLfuVS1mVO1yaCoarTBntY OwNCKbNmCqn1ayg246aIRs j5wvSYLDaygcdEo2nTjrK8 7wn6J5LgfrG52yrDUnDAM0 DOWcCQMlkVGaHKNrPYC2YP TleASnI9sbSESfHO0ldsav GBozLLgaNNDdtCL3FXRbeB TsE6VqENGgVXtiRQJkcbp8 MnXfEw9xzMSpfFvnDJxvHK SxBGMrGKriXIGuBoExMF9j o5Apk0S6TYWewX0ozBA6WD QaoxD3mSV9JQLnDTwpFZG8 CPT Code(s) (test code x9oxuKQiPZSfnFUiHMTqBJ = 335) csvkOdSNZmtILwV0Uhfkws YZbzYA3sOR7ksLrwaXWrgJ TiTLFwBzDiv0ixn729gUEt v6waAQCUujwigWa0fHycU8 0lw4G5AfljP26vtCMgJPI7 NQFvSKMfbBBwCUFcYLR3XG RnvXVqG9wnGPDbHG1zkbbh NSetNPxaKKPruXU2VYCbnY OcY8KwBLNtBBmkDPMnofs0 CuIpSf0gtVYbdHeoNTlsLM JkXHBsYWluXGZzMjAgODgz GFF1V6ydWAB7 GROSS DESCRIPTION (test b6qiySOmLOWaqNPXMGRaDS code = [id number]) SwXC4sdJpggUy2vAptAVQj xyB5gVTbPKidm5juNIE2a8 ycwySVSenrBYQcBP2fGXad YYXxOW9dYqUlITArBiGdKB BhcGVydzEyMjQwXHBhcGVy rDX4DVSoGL2qbqaqOTwzCM rkLIEtbvP0AKIkmMCwG8Ep HWOgJC8wzradTOG3JGMUOb hyUs5njWLpvHuuUcExXiZl YXJzZXQwXGZuaWwgQXJpYW d2uV4ZKjqaZ38ck3H1Mjh4 WHGpGHHuM2LtTU9gQYOjvP JtJ98MAmobIPD2GGKSQoed MjciuVybc3YneVOpXDIcKW xcaWQgNTEwMDAgXFxkYiBP CcDhQjA9Zog0HZF0OuI6HS r4FHUWLNBaHWJ2VUdzFsX5 ZCl9OSAbFV9oEJsokHNuBA lzRjuuETygA861TQhfETYo H0VfS9LrKDqhCiSdIJvaJT IwRZBtECjwJBNbZ3UDQWXr BDJ5Wew0SIWiEWq0LNefI2 XDIRTvPIQ0OXC6OyPzRuU2 VCb1WVDWEn2bBiJ2IVU5QP K8ZGB4HFUgXQbyaRZuEXgh r1UmKwEjKBVvWRpvvgV0XS TlovQaBEmpqUgauP9xIwFt LtDULqRYi8h1cYqtS41wy1 2hYRJRwvDis9GdlqOzILCg tlELVmokKWJbLY6YLZKlXA vbXKTsKlXpjSNxP8pbGAJg L06zs8DJd8ZlPN0VXPu8gs MuqvctpN2vSOZwtzFvAYkl R0LbBQVaTwIyTvQsJCb2FR YtwA2xJq1ocFVwgF8rqYVz ETriYPD5yQWrXLLpcUveqc GhyqIpTD8mKOXvCRSgW7Gd AXHzH08fRPCblD4yMVHlFW 1rLEXdt8z1aWnhC86uy48n hZujMHYiMIs5BqTcMQ9col Wfu1JfJfljaZJ4PiUjy01a qLC3byXpJdKlKFTapoXsa4 C1XNCam6J4HRPpxrMabPJq dCBtZWFzdXJpbmcgdXAgdG 6kGX4gLVMbJRxuVQwdRVX1 DOE8WSNlwAFzr6apmcbig0 axY5xbQMRiQBG3Te7skPIa ELOthvE2a3IvRSgcMYDgIf xeIHGzIHimuUMvCM2TSAWy TpUuGVJkG4mzPXBuJD9NCI HvDJeuwzUlOT8CDPYfgEGD YIS9VG7kVKjfDWMzE7PkU2 LaalF1OZJswqMAKrdlKnge oHzbo4JdfOQcUQTqMGrpiE QgNTEwMDIgXFxkYiBPVlIg BrY3Kzx4IAR9RxA7GHl5WV FBFmAwGvQcWkDwAAb7HmDk MNc0NVy5GKrRFtU0Bmi4Yq d5NvFvDBO3GlFgINs7HFZz XFxzcyAzIFxcZmwgXFxuY3 1ccGFyZFxzYjEwNVxlcGlj GAQeSLL5QP9IOo6sWK1bkB EeXXGjcO7iGA8vI0monD8x ZFxwYXIgDQpccGFyZCANCl xwbGFpblxsdHJjaFxmczIy VRJrvLRENQC4JL9vOPVUSm kxmDQuCDAjlHerPQmxxU5f IITuTsYtHQUwD0lkMeTpTD 7RVTMnIDmkkoJfFGYtU5Kc ldUuCFqhFXKons0ueZlcSP zzTnUcKSUea2u3lCHyNAGb PB47C9XdjwSvMFglyIXlxT NhbCByZWNvcmQgbnVtYmVy PITpHPPmoO5xyIDsLQKvbX 3oBDQ6QwMxIJumIPWciFuw f2ppOGHll7JutSNlG74wu5 sykSJyv5MdTzJ7GB5hb60l fLR4uJVmcMBqHtDzY83lla OzvFGqj9SepX3hCVBrBLGh IDAuOSBjbSBpbiBncmVhdG VnkYEmfF6lcdQae68oUDvl gSXoKQDqGQVpaGJwbYT4LA YmoI0biB02ggMcxxBXGF7l sBCiXW4IGQTyEYlmjOixUR LvWOPKKkifYYEuSXacz6Fg MFxlcGljWHNhMzAgDQpcY2 PuAOXuRdHdOAjdEAPeG30z r7LTr7Cpf8swlUxvy3XilP QmZR0cbOZpZX5Nq8mzUQEo dBBpRFV7SPnwb2vfIDmdCA N6REBnDsDfHKEiAW8ABpRn MSz8Bnw0ULJcZWg7YTp4PY 0GJeBeONCfKNIvGiH6DdHe GUe4VZwgOL2JBDaoXQjgSz A0KUL9ZIemBqWaUMQhRnPk DPZhHLTbXDqmxVNxJG0syC dkSRFfPREfHQN9TOPckATE z1ShMPNzIXyKWdHNOKK2RZ vwgDFxTW5KSEChtcHlRNlp lQyuuN2hvSRmE3xuEhTjGo xlcGljTmVzdERvYzEgDQpc bHRycGFyXGxpbjBccmluMF nsItDpZBHirHNTi9GhSOIR ClxmczIwXHBhciANClxzYj ZzWOLsW3ijSqJsKHxMZHAm bNTgZPUcglLrw1WkTQvxld BsYWJlbGVkIHdpdGggcGF0 xVNbiVDtQA8rCXJqWGJuQ5 VnUYXyR33iYABctP1hMLPu VY9yUPFzBVK4EEdecN6veA RxGctiiPL0EjTxv78thXQ6 cyBvZiBhIHRhbiBzZXNzaW rrSMSoaWthRP4aLMD5twpt ZyAxLjMgeCAwLjkgeCAwLj egE63pJYHeNRFegRp2kETi NLT2NB6jc62trJT9cGInvE ZdUgGbG31uysNhQbClVKzk UDIybTtfXPywWPhvj6WmNV ezFIIvXCIaQCV8yVZok7Tc F5goFG7jlZNuCC78mZKjkM dxj1DypQc2rULzNAEzPLXc zGbhb3B5STVocwGKVoqcNL YxJRsQBGZ6pQ2tCSLgTBX0 XHBhciANCkMxOiBTbWFsbG JuBIFwBHznYH03r0ryQMQy QNnJEstcDQAbh6e2lOyrpE 7oULLhD9PnNI2rVXJzaqtt mJHuFBW5rP2hAWXuODWsuj HSKflzWCBdYJyYhM4hBXNr QjyhnnnbAHMAEYgWN5EMFJ skBQHzXFbpH5EzUCRjzACf UL8EPAGfznEBQojlDPYrPE DvlAXAx8XqMMPUYmuaCtFi ZnMyMiANClxlcGljTmVzdE PpWuS5VRWhuHSjRBG6JP4e nFtdONVsU9ZzV0HujyC9FE IaodWLJwutPANoTH7JjD== MICROSCOPIC DESCRIPTION p8tjcOPgGFJfvPUhZBIlQK (test code = 3371) xmvpPwOKAqoJYsZ8Xihuam KIvgQN2zXJ3afLtkzNZadZ YnETHdAeLjg4slk508eHOy f0ikOLBYrrgkdDs7hUwyN1 2wn7I5QugdT39anKPmIUG5 KFQmJGBgjWBoCFKbHIH9RH UcqKVsM9flXOTwDL3cewpv NZsqTCzyHXFfyCD8LKIwdL QuL0TqBKKaASwvPOHdwao2 MlVkYw6wuOMuxSfwYUkvWC JkXHBsYWluXGZzMjAgTWlj vh5zG64gcAZlYUKhNYSvhP VudCBzdWJzdGFudGlhdGVz UVRjDDYzUl51GRHzuLLisv 8rlXTeEEchTKL5 Gross assessment was [facility] performed at ([facility], = 2777) Department of Pathology, [address] [place] [address], Technical component was [facility] performed at ([facility], = 2778) Department of Pathology, [address] [place] [address], Professional component [facility] was performed at ([facility], code = 2779) Department of Pathology, [address] [place] [address], [place] campusTISSUE [id number] 13:49:30Surgical Pathology Report Case: [id number] Authorizing Provider: Keo Heredia MD Collected: 12/25/2022 02:10 PM Ordering Location: [address] Received: 12/25/2022 04:33 PM Service Pathologist: Triston Armstrong MD Specimens: A) - Polyp, Colon - Transverse, polyp via hot snare B) - Polyp, Colon - Sigmoid, polyp via hot snare C) - Rectal, polyp via hot snare A. COLON, TRANSVERSE, POLYPECTOMY: - TUBULAR ADENOMAB. COLON, SIGMOID, POLYPECTOMY: -TUBULAR ADENOMAC. RECTUM, POLYPECTOMY: -TUBULOVILLOUS ADENOMA Signing Pathologist Direct Phone Line: [phone] signed by Triston Armstrong MD on 12/28/2022 at 1:49 PMEndoscopy report was reviewed. [id number]. Polyp, Colon - TransverseReceived in formalin labeled [...] 3 loo soft tissue fragment measuring up to0.9 cm in greatest dimension, which are submitted [...] Bowling (ASCP) Microscopic assessment substantiates the above diagnosis.[facility], Department of Pathology, [address] [place] [address], [facility]zb[facility], Department of Pathology, [address] [place] [address], [facility]muhxSilver [facility], Department of Pathology, [address] [place] [address], PIKDM METABOLIC [id number] 04:54:17 Test Item Value Reference Range Interpretation [...] eGFR (test code = mL/min/1.73 values Stage D escription 1092) sq m Result G1 Ally l [...] not appl icable for dialysis patien ts Human Resources Assistant ID - [id number] 04:54:17 Test Item Value Reference Range Interpretation Comments MAGNESIUM (BEAKER) (test code = 1.8 mg/dL 1.6-2.6 627) Human Resources Assistant ID - MARCOCBC W/PLT COUNT & AUTO [id number] 04:36:31 Test Item Value Reference Range Interpretation [...] (test code = 2801) TSH/FREE T4 IF [id number] 01:46:24 Test Item Value Reference Range Interpretation Comments THYROID STIMULATING HORMONE 1.450 uIU/mL 0.350-4.940 (BEAKER) (test code = 772) Human Resources Assistant ID - BSHIGH SENSITIVITY TROPONIN [id number] 01:25:31 Test Item Value Reference Range Interpretation Comments HIGH SENSITIVITY TROPONIN I (test 62 pg/ml <=35 H code = 0275126) Human Resources Assistant ID - BSThe DBAS STAT High Sensitivity Troponin-I results should be used in conjunctionwith other diagnostic information such as ECG, clinical observations and information, and patient symptoms to aid in the diagnosis of ME.BASIC METABOLIC [id number] 01:20:36 Test Item Value Reference Range Interpretation [...] G3b Moderately to s everely 30-44 G4 Sever ly decreased 15-29 G5 Kidney failure <15Repo rted eGFR is based on the CKD-EPI 2020 equation t hat does not use a race coefficientEsti mated GFR is not as accur ate as Creatinine Mariann hiro in predicting glom erular filtration rate . Estimated GFR is not appl icable for dialysis patien ts Human Resources Assistant ID - [id number] 01:20:36 Test Item Value Reference Range Interpretation Comments MAGNESIUM (BEAKER) (test code = 1.9 mg/dL 1.6-2.6 627) Human Resources Assistant ID - BSCBC W/PLT COUNT & AUTO [id number] 00:30:47 Test Item Value Reference Range Interpretation [...] (test code = 2801) HIGH SENSITIVITY TROPONIN [id number] 14:26:01 Test Item Value Reference Range Interpretation Comments HIGH SENSITIVITY TROPONIN I (test 84 pg/ml <=35 H code = 0712713) Human Resources Assistant ID - BSThe DBAS STAT High Sensitivity Troponin-I results should be used in conjunctionwith other diagnostic information such as ECG, clinical observations and information, and patient symptoms to aid in the diagnosis of ME.BASIC METABOLIC [id number] 03:40:20 Test Item Value Reference Range Interpretation [...] not appl icable for dialysis patien ts Human Resources Assistant ID - [id number] 03:40:20 Test Item Value Reference Range Interpretation Comments MAGNESIUM (BEAKER) (test code = 2.0 mg/dL 1.6-2.6 627) Human Resources Assistant ID - BSCBC W/PLT COUNT & AUTO [id number] 02:36:41 Test Item Value Reference Range Interpretation [...] H PERCENT (BEAKER) (test code = 2801) [id number] 05:25:43 Test Item Value Reference Range Interpretation Comments MAGNESIUM (BEAKER) (test code = 2.1 mg/dL 1.6-2.6 627) Human Resources Assistant ID - MMBASIC METABOLIC [id number] 05:25:42 Test Item Value Reference Range Interpretation [...] not as accur ate as Creatinine Mariann ihro in predicting glom erular filtration rate . Estimated GFR is not appl icable for dialysis patien ts Human Resources Assistant ID - MMCBC W/PLT COUNT & AUTO [id number] 05:11:30 Test Item Value Reference Range Interpretation [...] PERCENT (BEAKER) (test code = 2801) POC-Glucose [id number] 12:12:31 Test Item Value Reference Range Interpretation Comments POC-Glucose Meter (test 114 mg/dL 70-110 H : TE STED AT [facility] code = 1538) [address] [place] [address], [facility] 30: Human Resources Assistant/Techni jordyn ID = [id number] for Tyree Bernal ie Lab Interpretation (test Abnormal code = 00562-7) [place] campusPOC-Glucose [id number] 12:12:31 Test Item Value Reference Range Interpretation Comments POC-Glucose Meter (test 114 mg/dL 70-110 H : TE STED AT [facility] code = 1538) [address] [place] [address], 770 30: Human Resources Assistant/Techni jordyn ID = [id number] for Tyree Bernal ie Lab Interpretation (test Abnormal code = 63824-3) [facility]-Glucose [id number] 12:12:31 Test Item Value Reference Range Interpretation Comments POC-Glucose Meter (test 114 mg/dL 70-110 H : TE STED AT [facility] code = 1538) [address] [facility], 770 30: Human Resources Assistant/Techni jordyn ID = [id number] for Tyree Bernal ie Lab Interpretation (test Abnormal code = 65747-5) [facility]-Glucose [id number] 12:12:31 Test Item Value Reference Range Interpretation Comments POC-Glucose Meter (test 114 mg/dL 70-110 H : TE STED AT [facility] code = 1538) [address] [facility], 770 30: Human Resources Assistant/Techni jordyn ID = [id number] for Tyree Bernal ie Lab Interpretation (test Abnormal code = 44166-2) [facility]-Glucose [id number] 12:12:31 Test Item Value Reference Range Interpretation Comments POC-Glucose Meter (test 114 mg/dL 70-110 H : TE STED AT [facility] code = 1538) [address] [place] [address], 770 30: Human Resources Assistant/Techni jordyn ID = [id number] for Tyree Bernal ie Lab Interpretation (test Abnormal code = 93409-6) [facility]-GLUCOSE [id number] 12:12:31 Test Item Value Reference Range Interpretation Comments POC-GLUCOSE METER 114 mg/dL 70-110 H : TESTED A T [facility] [address] (BEAKER) (test code = KENNA Espinoza [facility], 1538) [address]: Human Resources Assistant/Techni jordyn ID = [id number] for Adrienne Man BASIC METABOLIC [id number] 04:44:44 Test Item Value Reference Range Interpretation [...] not appl icable for dialysis patien ts Human Resources Assistant ID - [id number] 04:44:44 Test Item Value Reference Range Interpretation Comments MAGNESIUM (BEAKER) (test code = 2.1 mg/dL 1.6-2.6 627) Human Resources Assistant ID - MMCBC W/PLT COUNT & AUTO [id number] 04:17:52 Test Item Value Reference Range Interpretation [...] PERCENT (BEAKER) (test code = 2801) U/S, [id number] 15:17:00Laterality?->LeftReason for exam:->Known left plefLabs to be Ordered:->CytologyLabs to be Ordered:- >Glucose+LDH+ProteinLabs to be Ordered:->Body Fluid Culture (w/Gram Stain, C\\T\\S)Labs to be Ordered:->Cell CountLabs to be Ordered:->Fungal Culture [facility] 1955 Sex: MFINAL REPORT Ultrasound of the chest CLINICAL HISTORY: Evaluate pleural effusionfor thoracentesis. DISCUSSION: Sonographic evaluation of the left chest was performed to evaluate for possible thoracentesis. Only a trace amount of left-sided pleural effusion is identified. IMPRESSION:Minimal left-sided pleural effusion, insufficient for safe thoracentesis. Signed: Ede Richards Verified Date/Time: 12/23/2022 15:17:37 Reading Location: [place] [id number] Ultrasound Reading Room BASI METABOLIC [id number] 08:42:27 Test Item Value Reference Range Interpretation [...] not appl icable for dialysis patien ts [id number] 08:36:30 Test Item Value Reference Range Interpretation Comments MAGNESIUM (BEAKER) 2.1 mg/dL 1.6-2.6 Specimen slightly (test code = 627) hemolyzed CBC W/PLT COUNT & AUTO [id number] 04:56:56 Test Item Value Reference Range Interpretation [...] = 2801) PET/CT, SKULL BASE TO MID-THIGH [id number] 19:39:00Reason for Exam:->To rule out mesothelioma [facility] : 1955 Sex: MFINAL REPORT EXAMINATION: FDG-PET/CT, 12/19/2022 3:40 AM CLINICAL HISTORY: 67-year-old male, rule out mesothelioma. COMPARISON: No recent study available for comparison. TECHNIQUE:Radiopharmaceutical: F-18 FluorodeoxyglucoseAdministered activity: 12.0 mCiRoute of administration: Int ravenously via the left antecubital veinLocalization time: 105 minutesScan extent: Skull base to theproximal thighsAdditional imaging: NoneSerum blood glucose: 138 mg/dlCPT Code: 78230 FINDINGS:Head and Neck: No suspicious FDG avid [...] Guillen MDReport Verified Date/Time: 12/22/2022 19:39:47 POCT-GLUCOSE [id number] 14:04:02 Test Item Value Reference Range Interpretation Comments POC-GLUCOSE METER 138 mg/dL 70-110 H : TESTED A T [facility] [address] ([facility]) (test code = [facility], 1538) [address]: Human Resources Assistant/Techni jordyn ID = [id number] for Nyla Perla MRSA [id number] 09:59:55 Test Item Value Reference Range Interpretation Comments Result (test code = 6463-4) No MRSA isolated [place] campusMRSA [id number] 09:59:55 Test Item Value Reference Range Interpretation Comments Result (test code = 6463-4) No [facility] [id number] 09:59:55 Test Item Value Reference Range Interpretation Comments Result (test code = 6463-4) No [facility] [id number] 09:59:55 Test Item Value Reference Range Interpretation Comments Result (test code = 6463-4) No MRSA isolated [place] campusMRSA [id number] 09:59:55 Test Item Value Reference Range Interpretation Comments Result (test code = 6463-4) No MRSA isolated [place] campusMRSA [id number] 09:59:55 Test Item Value Reference Range Interpretation Comments CULTURE (BEAKER) (test code No MRSA isolated = 1095) [id number] 04:05:59 Test Item Value Reference Range Interpretation Comments MAGNESIUM (BEAKER) (test code = 2.1 mg/dL 1.6-2.6 627) Human Resources Assistant ID - OSCAR WBASIC METABOLIC [id number] 04:05:58 Test Item Value Reference Range Interpretation [...] not appl icable for dialysis patien ts Human Resources Assistant ID - OSCAR WCBC W/PLT COUNT & AUTO [id number] 03:46:41 Test Item Value Reference Range Interpretation [...] 2D Echo W/Doppler(CW/PW/Color)2022-12-21 16:31:48Ejection FractionSLEH ECHO [facility] W/Doppler(CW/PW/Color)2022-12-21 16:31:48Ejection FractionSLEH ECHO [facility]LAB [facility] Echo W/Doppler(CW/PW/Color) 2022-12-21 16:31:48Ejection FractionSLEH ECHO [facility] Echo W/Doppler(CW/PW/Color)2022-12-21 16:31:48Ejection FractionSLEH ECHO [facility] Echo W/Doppler(CW/PW/Color)2022-12-21 16:31:48Ejection FractionSLE ECHO [facility] CountyPROTHROMBIN TIME/[id number] 14:53:12 Test Item Value Reference Range Interpretation Comments PROTIME (BEAKER) (test code = 13.8 seconds 11.9-14.2 759) INR (BEAKER) (test code = 370) 1.12 <=5.90 RECOMMENDED COUMADIN/WARFARIN INR THERAPY RANGESSTANDARD DOSE: 2.0 - 3.0 Includes: PROPHYLAXIS for venous thrombosis, systemic embolization; TREATMENT for venous thrombosis and/or pulmonary embolus.HIGH RISK: Target INR is 2.5-3.5 for patients with mechanical heart valves.[id number] 13:28:03 Test Item Value Reference Range Interpretation Comments MAGNESIUM (BEAKER) (test code = 2.0 mg/dL 1.6-2.6 627) Human Resources Assistant ID - JSBASIC METABOLIC [id number] 13:28:02 Test Item Value Reference Range Interpretation [...] not appl icable for dialysis patien ts Human Resources Assistant ID - JSCBC W/PLT COUNT & AUTO [id number] 08:50:17 Test Item Value Reference Range Interpretation [...] (BEAKER) (test code = 2801) VANCOMYCIN LEVEL, [id number] 11:00:53 Test Item Value Reference Range Interpretation Comments VANCOMYCIN TROUGH (BEAKER) (test 15.2 ug/mL 10.0-20.0 code = 522) Human Resources Assistant ID - EDRAD, CHEST, 1 VIEW, NON [id number] 13:55:00Reason for exam:- >evaluate reported loculated pleural effusion, leftShould this be performed at the bedside?->Yes [facility] : 1955 Sex: MFINAL [...] IMPRESSION:Small left pleural effusion. Signed: Rubia Lipscomb MDReport Verified Date/Time: 12/19/2022 13:55:56 Reading Location: [facility] B1 C013X Ortho Consult Reading Room OSMOLALITY, [id number] 07:27:48 Test Item Value Reference Range Interpretation Comments OSMOLALITY, SERUM (BEAKER) (test 282 mOsm/kg 275-295 code = 615) BASIC METABOLIC [id number] 07:16:16 Test Item Value Reference Range Interpretation [...] not appl icable for dialysis patien ts Human Resources Assistant ID - [id number] 07:16:16 Test Item Value Reference Range Interpretation Comments MAGNESIUM (BEAKER) (test code = 1.9 mg/dL 1.6-2.6 627) Human Resources Assistant ID - [id number] 07:16:16 Test Item Value Reference Range Interpretation Comments PHOSPHORUS (BEAKER) (test code = 4.2 mg/dL 2.3-4.7 604) Human Resources Assistant ID - MMVANCOMYCIN LEVEL, [id number] 07:15:55 Test Item Value Reference Range Interpretation Comments VANCOMYCIN RANDOM (BEAKER) (test 9.4 ug/mL code = 523) Reference Range: No NormalsOperator ID - MMCBC W/PLT COUNT & AUTO [id number] 06:38:56 Test Item Value Reference Range Interpretation [...] % 0.00-1.00 PERCENT (BEAKER) (test code = 6961)
[2023-06-28 13:35] LABS: Absolute Lymphocytes (CBC) 1.5 K/uL (0.7-4.9); Hematocrit 43.7 % (39.6-49.0); Lymphocytes % 11.6 % (15.3-44.8); MPV 7.3 fL (7.6-11.3); Platelets 260 thou/uL (152-406); RBC Red Blood Cell Count 4.85 M/uL (4.33-5.43)
[2023-06-28] MEDS ORDERED: AZITHROMYCIN 500 MG INJ IVPB ONE (13:45)
[2023-06-28] MEDS ORDERED: ALBUTEROL 2.5 MG/3 ML NEB SOL ONE (13:45)
[2023-06-28] MEDS ORDERED: METHYLPREDNISOLONE 125 MG INJ ONE (13:45)
[2023-06-28] MEDS ORDERED: CEFTRIAXONE 1000 MG/VIAL ONE (13:45)
[2023-06-28] MEDS ORDERED: NA CHLORIDE 0.9% 250 ML ONE (13:45)
[2023-06-28] MEDS ORDERED: IPRATROPIUM BROM 0.5MG/2.5ML ONE ×2 (13:45→21:19)
[2023-06-28] MEDS ORDERED: NA CHLORIDE 0.9% 50 ML ONE (13:46)
[2023-06-28 13:50] LABS: Protime INR 1.22
[2023-06-28 13:55] LABS: Albumin 3.7 g/dL (3.4-5.0); Bilirubin Total 0.6 mg/dL (0.2-1.0); Potassium 3.4 mEq/L (3.5-5.1); Protein, Total 7.7 g/dL (6.4-8.2)
--- NOTE | 2023-06-28 14:20 | RAD REPORT ---
EXAM DESCRIPTION: RADChest Single View06/28/2023 1:45 pm CLINICAL HISTORY: COPD COMPARISON: Chest Single View dated 06/09/2023; Chest Single View dated 05/17/2023; Chest Single View dated 02/22/2023; Chest Single View dated 12/31/2022 TECHNIQUE: Portable AP view of the chest. FINDINGS: The lungs are clear apart from stable bibasilar streaky atelectasis. No pneumothorax or e ffusion. The cardiomediastinal contours are unremarkable. IMPRESSION: No acute cardiopulmonary process.
--- NOTE | 2023-06-28 14:35 | ER ---
Nurse's Notes [facility] Name: Randolph Mckeon Age: 68 yrs Sex: Male : 1955 Arrival Date: 06/28/2023 Time: 12:22 Bed 5 Private MD: Diagnosis: COPD/ Chronic obstructive pulmonary disease with (acute) exacerbation Presentation: 06/28 12:37 Chief complaint: Patient states: SOB since yesterday , hx of COPD , + cough , iw productive, no fever. Coronavirus screen: At this time, the client does not indicate any symptoms associated with coronavirus-19. Ebola Screen: Patient negative for fever greater than or equal to 101.5 degrees Fahrenheit, and additional compatible Ebola Virus Disease symptoms Patient denies exposure to infectious person. Patient denies travel to an Ebola-affected area in the 21 days before illness onset. No symptoms or risks identified at this time. Initial Sepsis Screen: Does the patient meet any 2 criteria? No. Patient's initial sepsis screen is negative. Does the patient have a suspected source of infection? No. Patient's initial sepsis screen is negative. Risk Assessment: Do you want to hurt yourself or someone else? Patient reports no desire to harm self or others. Onset of symptoms was June 27, 2023. 12:37 Method Of Arrival: Wheelchair iw 12:37 Acuity: YANNICK 3 iw Triage Assessment: 13:55 General: Appears in no apparent distress. comfortable, Behavior is calm, cooperative. cm10 Pain: Denies pain. EENT: No deficits noted. No signs and/or symptoms were reported regarding the EENT system. Neuro: No deficits noted. Yusuf Agitation-Sedation Scale (RASS): 0 - Alert and Calm Level of Consciousness is awake, alert, obeys commands, Oriented to person, place, time, situation. Cardiovascular: No deficits noted. Patient's skin is warm and dry. Rhythm is regular. Respiratory: No deficits noted. Reports shortness of breath Airway is patent Respiratory effort is even, unlabored, Respiratory pattern is regular, symmetrical, Breath sounds are diminished bilaterally. GI: No deficits noted. No signs and/or symptoms were reported involving the gastrointestinal system. : No deficits noted. No signs and/or symptoms were reported regarding the genitourinary system. Derm: No deficits noted. No signs and/or symptoms reported regarding the dermatologic system. Skin is intact, Skin is pink, warm \T\ dry. Musculoskeletal: No deficits noted. No signs and/or symptoms reported regarding the musculoskeletal system. Range of motion: intact in all extremities. Historical: - Allergies: 12:38 No Known Allergies; iw - PMHx: 12:38 Atrial fibrillation; CHF; COPD; COPD; Hypertension; Pneumonia; iw - PSHx: 12:38 cyst removal on lower left limb; iw - Immunization history:: Client reports having NOT received the Covid vaccine. - Social history:: Smoking status: Patient reports the use of cigarette tobacco products. Screenin:56 [facility] ED Fall Risk Assessment (Adult) History of falling in the last 3 months, cm10 including since admission No falls in past 3 months (0 pts) Confusion or Disorientation No (0 pts) Intoxicated or Sedated No (0 pts) Impaired Gait No (0 pts) Mobility Assist Device Used No (0 pt) Altered Elimination No (0 pt) Score/Fall Risk Level 0 - 2 = Low Risk Oriented to surroundings, Maintained a safe environment, Hourly rounding (assess needs \T\ fall precautionary measures) done. Abuse screen: Denies threats or abuse. Denies injuries from another. Nutritional screening: No deficits noted. Tuberculosis screening: No symptoms or risk factors identified. Assessment: 15:45 Reassessment: Patient appears in no apparent distress at this time. Patient and/or cm10 family updated on plan of care and expected duration. Pain level reassessed. Patient is alert, oriented x 3, equal unlabored respirations, skin warm/dry/pink. Patient states feeling better. Patient states symptoms have improved. 17:38 Reassessment: No changes from previously documented assessment. given food tray. O2 2L ll1 NC applied. Vital Signs: 12:37 BP 114 / 72; Pulse 117; Resp 23; Temp 98.2; Pulse Ox 91% on R/A; iw 14:03 BP 127 / 79; Pulse 111; Resp 18; Pulse Ox 100% ; mb9 15:35 Pulse Ox 88% on R/A; ll1 15:38 Pulse Ox 95% on 2 lpm NC; ll1 19:25 BP 126 / 82; Pulse 113; Resp 19; Pulse Ox 96% ; jj7 19:30 BP 129 / 77; Pulse 115; Pulse Ox 96% ; km8 ED Course: 12:25 Patient arrived in ED. mg5 12:25 Romie Briceno MD is Attending Physician. ec2 12:38 Triage completed. iw 12:39 Arm band placed on. iw 13:14 Salome Forrest, RN is Primary Nurse. cm10 13:20 Initial lab(s) drawn, by me, sent to lab. First set of blood cultures drawn by me. cm10 Inserted saline lock: 18 gauge in right forearm, using aseptic technique. Blood collected. 13:26 CBC with Diff Sent. cm10 13:26 CMP Sent. cm10 13:26 Lactate w/ 2H reflex if indic. Sent. cm10 13:26 Protime (+inr) Sent. cm10 13:26 Ptt, Activated Sent. cm10 13:28 EKG done, by ED staff, reviewed by Romie Briceno MD. ls5 13:45 Second set of blood cultures drawn. cm10 13:46 Chest Single View XRAY In Process Unspecified. EDMS 13:56 Patient has correct armband on for positive identification. Placed in gown. Bed in low cm10 position. Call light in reach. Side rails up X2. Provided Education on: ER process and procedures. . Client placed on continuous cardiac and pulse oximetry monitoring. NIBP monitoring applied. ekg monitor on. Pulse ox on. Door closed. Lights dimmed. Warm blanket given. Pillow given. 14:34 Timoteo Fischer is Hospitalizing Provider. ec2 19:33 No provider procedures requiring assistance completed. Patient admitted, IV remains in jj7 place. Administered Medications: 13:40 Drug: DuoNeb Nebulize (3:1) (2.5 mg - 0.5 mg) 3 ml Nebulizer once Route: Nebulizer; cm10 14:40 Follow up: Response: No adverse reaction cm10 13:45 Drug: MethylPrednisoLONE IVP 125 mg IVP once Route: IVP; Site: right forearm; cm10 14:02 Follow up: Response: No adverse reaction cm10 13:46 Drug: Rocephin IV 1 grams IV at calculated rate once; Given slow IV push per pharmacy cm10 instructions Route: IV; Rate: calculated rate; Site: right antecubital; 14:02 Follow up: Response: No adverse reaction; IV Status: Completed infusion; IV Intake: [id number] 14:02 Drug: AZITHromycin IVPB 500 mg IVPB once over 1 hrs; (mix in 250 mL NS) Route: IVPB; cm10 Infused Over: 1 hrs; Site: right forearm; 19:37 Follow up: IV Status: Completed infusion gama Medication: 13:56 VIS not applicable for this client. cm10 Intake: 14:02 IV: 50ml; Total: 50ml. cm10 Outcome: 14:34 Decision to Hospitalize by Provider. ec2 19:31 Admitted to Med/surg accompanied by tech, via wheelchair, room 205, Report called to gama LOWE RN 19:31 Condition: good 20:03 Patient left the ED. gama Signatures: Dispatcher [employer] EDLeela Cartwright, SAMEER ESTRELLA iw La Peters RN RN ll1 Merlin Loaiza RN RN Nidhi Bell RN RN mb9 Thad Escobedo ls5 Salome Forrest RN RN cm10 Lisa Croft mg5 Romie Briceno MD MD ec2 Linda Cordero RN RN km8
--- NOTE | 2023-06-28 14:35 | EDPHYS ---
Physician Documentation [facility] Name: Randolph Mckeon Age: 68 yrs Sex: Male : 1955 Arrival Date: 06/28/2023 Time: 12:22 Bed 5 Private MD: ED Physician Romie Briceno HPI: 06/28 12:46 This 68 yrs old Male presents to ER via Wheelchair with complaints of COPD. ec2 12:46 Patient arrives today due to concern for progressive shortness of breath. States that ec2 the symptoms have been worsening since yesterday. Patient reports productive cough. Denies any fevers or chills, denies any nausea or vomiting. Reports that he had some diarrhea yesterday that had resolved. Patient has been using his albuterol frequently. Patient states that he was seen 2 weeks ago for COPD exacerbation and was discharged on 5 days of antibiotics.. Historical: - Allergies: 12:38 No Known Allergies; iw - PMHx: 12:38 Atrial fibrillation; CHF; COPD; COPD; Hypertension; Pneumonia; iw - PSHx: 12:38 cyst removal on lower left limb; iw - Immunization history:: Client reports having NOT received the Covid vaccine. - Social history:: Smoking status: Patient reports the use of cigarette tobacco products. ROS: 12:46 Constitutional: as per hpi ec2 Exam: 12:46 Constitutional: GEN: NAD Head: atraumatic Eyes: EOMI Ears: External ears are ec2 normal. CV: Tachycardia LUNGS: Mild tachypnea, scattered wheezes noted throughout ABD: non-distended SKIN: no evidence of rashes MSK: no evidence of trauma NEURO: moves all extremities equally Vital Signs: 12:37 BP 114 / 72; Pulse 117; Resp 23; Temp 98.2; Pulse Ox 91% on R/A; iw 14:03 BP 127 / 79; Pulse 111; Resp 18; Pulse Ox 100% ; mb9 15:35 Pulse Ox 88% on R/A; ll1 15:38 Pulse Ox 95% on 2 lpm NC; ll1 19:25 BP 126 / 82; Pulse 113; Resp 19; Pulse Ox 96% ; jj7 19:30 BP 129 / 77; Pulse 115; Pulse Ox 96% ; km8 MDM: 12:25 Patient medically screened. ec2 12:46 ED course: Patient arrives today due to concern for progressive shortness of breath. ec2 Examination remarkable for tachycardic individual with slight tachypnea along with scattered wheezes. Will obtain a septic work-up and empirically treat with antibiotic coverage. Currently considering pneumonia, COPD exacerbation, viral process.. 13:52 ED course: EKG independently reviewed and interpreted by me, shows sinus tachycardia, ec2 rate of 111, no acute ST segment elevations, nonconcerning intervals. . 14:23 Data reviewed: vital signs. ED course: CBC is remarkable for leukocytosis of 12.4, no ec2 evidence of anemia, metabolic profile with slight hypokalemia with a potassium of 3.4, renal dysfunction noted with a GFR of 77. Chest x-ray shows no acute intrathoracic process. . 14:23 ED course: Patient with improved respiratory status after interventions. Presentation ec2 consistent with sepsis secondary to COPD exacerbation. Will admit the patient for continue antibiotic coverage and COPD management.. 06/28 12:46 Order name: Blood Culture Adult (2) ec2 06/28 12:46 Order name: CBC with Diff; Complete Time: 14:22 ec2 06/28 12:46 Order name: CMP; Complete Time: 14:22 ec2 06/28 12:46 Order name: Lactate w/ 2H reflex if indic.; Complete Time: 14:22 ec2 06/28 12:46 Order name: Protime (+inr); Complete Time: 14:22 ec2 06/28 12:46 Order name: Ptt, Activated; Complete Time: 14:22 ec2 06/28 12:47 Order name: Influenza Screen (a \T\ B); Complete Time: 14:35 ec2 06/28 12:47 Order name: COVID-19 SARS RT PCR; Complete Time: 14:31 ec2 06/28 15:57 Order name: Lactate w/ 2H reflex if indic. EDMS 06/28 15:57 Order name: Basic Metabolic Panel EDMS 06/28 15:57 Order name: Basic Metabolic Panel EDMS 06/28 15:57 Order name: Basic Metabolic Panel EDMS 06/28 15:57 Order name: Basic Metabolic Panel EDMS 06/28 15:57 Order name: Basic Metabolic Panel EDMS 06/28 15:57 Order name: Basic Metabolic Panel EDMS 06/28 15:57 Order name: CBC with Automated Diff EDMS 06/28 15:57 Order name: CBC with Automated Diff EDMS 06/28 15:57 Order name: CBC with Automated Diff EDMS 06/28 15:57 Order name: CBC with Automated Diff EDMS 06/28 15:57 Order name: CBC with Automated Diff EDMS 06/28 15:57 Order name: CBC with Automated Diff EDMS 06/28 15:57 Order name: Magnesium EDMS 06/28 15:57 Order name: Magnesium EDMS 06/28 15:57 Order name: Magnesium EDMS 06/28 15:57 Order name: Magnesium EDMS 06/28 15:57 Order name: Magnesium EDMS 06/28 15:57 Order name: Magnesium EDMS 06/28 15:57 Order name: Phosphorus EDMS 06/28 15:57 Order name: Phosphorus EDMS 06/28 15:57 Order name: Phosphorus EDMS 06/28 15:57 Order name: Urinalysis w/ reflexes EDMS 06/28 15:58 Order name: Phosphorus EDMS 06/28 15:58 Order name: Phosphorus EDMS 06/28 15:58 Order name: Phosphorus EDMS 06/28 12:46 Order name: Chest Single View XRAY; Complete Time: 14:22 ec2 06/28 12:46 Order name: EKG; Complete Time: 12:46 ec2 06/28 12:46 Order name: Cardiac monitoring; Complete Time: 13:26 ec2 06/28 12:46 Order name: EKG - Nurse/Tech; Complete Time: 13:27 ec2 06/28 12:46 Order name: IV Saline Lock - Large Bore; Complete Time: 13:25 ec2 06/28 12:46 Order name: Labs collected and sent; Complete Time: 13:25 ec2 06/28 12:46 Order name: O2 Per Protocol; Complete Time: 13:26 ec2 06/28 12:46 Order name: O2 Sat Monitoring; Complete Time: 13:26 ec2 06/28 12:46 Order name: Vital Signs; Complete Time: 13:26 ec2 Administered Medications: 13:40 Drug: DuoNeb Nebulize (3:1) (2.5 mg - 0.5 mg) 3 ml Nebulizer once Route: Nebulizer; cm10 14:40 Follow up: Response: No adverse reaction cm10 13:45 Drug: MethylPrednisoLONE IVP 125 mg IVP once Route: IVP; Site: right forearm; cm10 14:02 Follow up: Response: No adverse reaction cm10 13:46 Drug: Rocephin IV 1 grams IV at calculated rate once; Given slow IV push per pharmacy cm10 instructions Route: IV; Rate: calculated rate; Site: right antecubital; 14:02 Follow up: Response: No adverse reaction; IV Status: Completed infusion; IV Intake: [id number] 14:02 Drug: AZITHromycin IVPB 500 mg IVPB once over 1 hrs; (mix in 250 mL NS) Route: IVPB; cm10 Infused Over: 1 hrs; Site: right forearm; 19:37 Follow up: IV Status: Completed infusion jj7 Disposition: 14:23 Critical Care:. ec2 Disposition Summary: 06/28/23 14:34 Hospitalization Ordered Notes: Hospitalization Status: Inpatient Admission ec2 Provider: Timoteo Fischer Location: Telemetry/[facility] (Inpatient) ec2 Condition: Stable ec2 Problem: an acute exacerbation ec2 Symptoms: have improved ec2 Bed/Room Type: Standard ec2 Room Assignment: 205(06/28/23 18:36) bd Diagnosis - COPD/ Chronic obstructive pulmonary disease with (acute) exacerbation ec2 Forms: - Medication Reconciliation Form ec2 - SBAR form ec2 - Leadership Thank You Letter ec2 Critical care time excluding procedures: 14:23 Critical care time: Bedside Care: 30 minutes, Consultation: 5 minutes. Total time: 35 ec2 minutes Signatures: Dispatcher [employer] EDJenny Campos Irene, RN RN iw Martinez, Clarissa, RN RN 10 Romie Briceno MD MD ec2 Merlin Loaiza RN jj7 Corrections: (The following items were deleted from the chart) 18:36 14:34 ec2 bd
[2023-06-28] MEDS ORDERED: ALBUTEROL 2.5 MG/3 ML NEB SOL NEB PRN (15:49)
--- NOTE | 2023-06-28 16:01 | P.HP ---
Certification for Inpatient Patient admitted to: Inpatient With expected LOS: >2 Midnights Patient will require the following post-hospital care: None Practitioner: I am a practitioner with admitting privileges, knowledge of patient current condition, hospital course, and medical plan of care. Services: Services provided to patient in accordance with Admission requirements found in Title 42 Section 412.3 of the Code of Federal Regulations Patient History Date of Service: 06/28/23 Reason for admission: COPD exacerbation History of Present Illness: Randolph Mckeon is a 68 year old male with Pmhx COPD, Afib, CHF, HTN, PNA, and stroke who presents to the ED with c/o COPD exacerbation. He reports this exacerbation has onset was two weeks ago with productive cough and worsening symptoms yesterday. He reports being admitted for COPD exacerbation two weeks ago and being discharge on PO antibiotics. He does continue to smoke but has cut back some. On examination he is on RA sating 89%, in no acute distress, currently not coughing. He reports abdominal soreness from coughing but no chest pain. Initial vitals: BP 114 / 72; Pulse 117; Resp 23; Temp 98.2; Pulse Ox 91% on R/A. Significant labs WBC 13, Lactic 1.6 repeat pending, other labs unremarkable. CXR reports "The lungs are clear apart from stable bibasilar streaky atelectasis. No pneumothorax or effusion. The cardiomediastinal contours are unremarkable" Randolph will be admitted to hospitalist service for further treatment and evaluation. Allergies No Known Allergies Allergy (Verified 02/22/23 17:15) Home Medications: Tamsulosin [Flomax*] 0.4 mg PO DAILY cap 11/04/20 Trelegy Ellipta 100-62.5-25 1 inh IH DAILY 09/30/22 Amlodipine [Norvasc*] 10 mg PO DAILY 02/22/23 Apixaban [Eliquis] 5 mg PO BID 02/22/23 Furosemide [Lasix] 80 mg PO DAILY 02/22/23 Potassium Chloride 20 meq PO DAILY 02/22/23 Spironolactone 25 mg PO DAILY 02/22/23 predniSONE [Prednisone*] 10 mg PO DAILY 02/22/23 Azithromycin 250 mg PO DAILY 15 Days #15 tab 05/20/23 Roflumilast [Daliresp*] 500 mcg PO DAILY 30 Days #30 tab 05/20/23 Ipratropium/Albuterol Sulfate [Iprat-Albut 0.5-3(2.5) mg/3 ml] 3 ml IH Q6H PRN #120 amp 06/11/23 Pantoprazole [Protonix Tab*] 40 mg PO BIDAC #60 tab 06/11/23 levoFLOXacin [Levaquin*] 750 mg PO DAILY #5 tab 06/11/23 predniSONE [Deltasone*] 10 mg PO DAILY #30 tab 06/11/23 - Past Medical/Surgical History Diabetic: No -: COPD -: Hypertension -: Alcohol abuse -: Hyponatremia -: Diastolic CHF -: Pneumonia -: Hernia repair -: left leg wound -: Left foot cancer removal Psychosocial/ Personal History: Patient is . He lives at home and has home health. - Family History Father -: Heart disease Brother -: Lung disease - Social History Alcohol use: Yes CD- Drugs: No Caffeine use: Yes Review of Systems General: Weakness Respiratory: Cough, Shortness of Breath, Sputum Gastrointestinal: Abdominal Pain (sore from coughing), Diarrhea Neurological: Other (lightheadedness) Physical Examination - Physical Exam General: Alert, In no apparent distress, Oriented x3 HEENT: Atraumatic, Normocephalic, PERRLA Neck: Supple, 2+ carotid pulse no bruit, JVD not distended Respiratory: Normal air movement, Expiratory wheezes Cardiovascular: No edema, Normal S1 S2, Irregular heart rate/rhythm Capillary refill: <2 Seconds Gastrointestinal: Normal bowel sounds, Soft and benign Musculoskeletal: No clubbing, No swelling, No contractures Integumentary: No rashes, No breakdown, No significant lesion Neurological: Normal speech, Normal strength at 5/5 x4 extr, Normal tone - Studies Laboratory Data (last 24 hrs) 06/28/23 06/28/23 06/28/23 13:20 13:20 13:20 WBC 12.90 H Hgb 14.6 Hct 43.7 Plt Count 260 PT 13.4 H INR 1.22 APTT 42.1 H Sodium 136 Potassium 3.4 L BUN 13 Creatinine 1.06 Glucose 107 H Total Bilirubin 0.6 AST 8 L ALT 19 Alkaline Phosphatase 69 Microbiology Data (last 24 hrs): 06/28/23 13:45 Nasopharnyx Influenza Type A Antigen Screen - Final 06/28/23 13:45 Nasopharnyx Influenza Type B Antigen Screen - Final Assessment and Plan - Plan Assessment and Plan Sepsis 2/2 COPD exacerbation Leukocytosis WBC 13, Pulse 117; Resp 23 mag pending CXR: The lungs are clear apart from stable bibasilar streaky atelectasis. No pneumothorax or effusion. The cardiomediastinal contours are unremarkable o2 protocol steroids azithromycin and cefipime nebs AFib restart home medications H/o CHF monitor h/o HTN restart home medications H/o CVA Restart home medications Substance abuse continues to smoke Refused a nicotine patch educated the need for cessation DVT ppx: heparin Full code LOS 2-3 days Discharge Plan: Home Plan to discharge in: 48 Hours - Advance Directives Does patient have a Living Will: No Does patient have a Durable POA for Healthcare: No Time Spent Managing Pts Care (In Minutes): 55
[2023-06-28] MEDS: HEPARIN 5000 UNIT/ML 1 ML VIAL SQ SCH (17:00)
[2023-06-28] MEDS: IPRATROPIUM BROM 0.5MG/2.5ML NEB SCH (20:00)
[2023-06-28 20:15] VITALS: BMI 30.8
[2023-06-29] MEDS: IPRATROPIUM BROM 0.5MG/2.5ML NEB SCH ×4 (02:00→19:30)
[2023-06-29] MEDS: HEPARIN 5000 UNIT/ML 1 ML VIAL SQ SCH (02:40)
[2023-06-29 03:13] LABS: Absolute Lymphocytes (CBC) 0.5 K/uL (0.7-4.9); Hematocrit 36.5 % (39.6-49.0); Lymphocytes % 6.9 % (15.3-44.8); MCV 88.5 fL (80-100); MPV 7.4 fL (7.6-11.3); Platelets 237 thou/uL (152-406); RBC Red Blood Cell Count 4.12 M/uL (4.33-5.43)
[2023-06-29 03:32] LABS: Magnesium 2.1 mg/dL (1.6-2.4); Phosphorus 2.8 mg/dL (2.5-4.9)
[2023-06-29 04:30] LABS: Blood Morphology Comment NOT SEEN (NOT SEEN); Platelet Estimate ADEQ
[2023-06-29] MEDS ORDERED: AZITHROMYCIN IV 500 MG in NA CHLORIDE 0.9% 250 ML IVPB SCH (09:00)
[2023-06-29] MEDS ORDERED: CEFTRIAXONE 1,000 MG in NA CHLORIDE 0.9% 50 ML IVPB SCH (09:00)
[2023-06-29] MEDS ORDERED: AMLODIPINE 10 MG TAB PO SCH (09:00)
[2023-06-29] MEDS ORDERED: FUROSEMIDE 40 MG TABLET PO SCH (09:00)
--- NOTE | 2023-06-29 09:06 | P.PN ---
Date of Service: 06/29/23 Subjective: Still feeling short of breath/congested Mild improvement overnight ROS: 10 point ROS as noted above, otherwise negative Physical exam GEN: Alert, oriented, NAD HEENT: Normal conjunctiva, sclera anicteric CV: Regular rate and rhythm, no edema Pulm: Expiratory wheezing noted, nonlabored respirations on nasal cannula at 2 L ABD: Soft, nontender, nondistended MSK: No joint tenderness Integumentary: No rashes Neuro: Normal speech, normal affect Vitals reviewed Problem List Acute on chronic hypoxic respiratory failure secondary to COPD exacerbation-on chronic home O2 at night, on chronic steroids Atrial fibrillation on chronic anticoagulation Chronic diastolic congestive heart failure Hypertension History of CVA Tobacco abuse Acute on chronic hypoxic respiratory failure secondary to COPD exacerbation-on chronic home O2 at night, on chronic steroids Pulmonology to see patient Continue nebs, steroids, ICS Has home O2 but typically only uses at night On prednisone 10 mg daily at home Currently requiring continuous nasal cannula oxygen Still with moderate expiratory wheezing, shortness of breath Atrial fibrillation on chronic anticoagulation Home medications continued Chronic diastolic congestive heart failure Appears compensated at this time, continue Lasix, other home medications Hypertension History of CVA Home medications continued Tobacco abuse Counseled on need for cessation, declined NicoDerm patch VTE: Heparin Code: Full Dispo: 24 to 48 hours Time Spent Managing Pts Care (In Minutes): 35
[2023-06-29] MEDS: ARFORMOTEROL TARTRATE 15 MCG/2 ML VIAL.NEB NEB SCH ×2 (09:15→19:30)
[2023-06-29] MEDS: predniSONE 20 MG TAB PO SCH ×2 (09:54→20:25)
[2023-06-29] MEDS: levoFLOXacin 750 MG TAB PO SCH (09:54)
[2023-06-29] MEDS: ROFLUMILAST 500 MCG TABLET PO SCH (09:54)
[2023-06-29] MEDS: SPIRONOLACTONE 25 MG TABLET PO SCH (09:54)
[2023-06-29] MEDS: APIXABAN 5 MG TABLET PO SCH ×2 (09:54→20:25)
--- NOTE | 2023-06-29 11:53 | P.CNS ---
Date of Consult: 06/29/23 Reason for Consult: COPD exacerbation Chief Complaint: COPD exacerbation History of Present Illness: Patient is 68 years of age with a history of COPD recurrent exacerbation past 3 days started complaining of cough congestion productive of yellow sputum and d oes take trilogy at home no change in his medication feels a lot better since admission Allergies No Known Allergies Allergy (Verified 02/22/23 17:15) Home Medications: Trelegy Ellipta 100-62.5-25 1 inh IH DAILY 09/30/22 Amlodipine [Norvasc*] 10 mg PO DAILY 02/22/23 Apixaban [Eliquis] 5 mg PO BID 02/22/23 Furosemide [Lasix] 80 mg PO DAILY 02/22/23 Spironolactone 25 mg PO DAILY 02/22/23 Roflumilast [Daliresp*] 500 mcg PO DAILY 30 Days #30 tab 05/20/23 Ipratropium/Albuterol Sulfate [Iprat-Albut 0.5-3(2.5) mg/3 ml] 3 ml IH Q6H PRN #120 amp 06/11/23 predniSONE [Deltasone*] 10 mg PO DAILY #30 tab 06/11/23 Tamsulosin [Flomax*] 0.4 mg PO BEDTIME 06/29/23 - Past Medical/Surgical History Diabetic: No -: COPD -: Hypertension -: Alcohol abuse -: Hyponatremia -: Diastolic CHF -: Pneumonia -: Hernia repair -: left leg wound -: Left foot cancer removal Psychosocial/ Personal History: Patient is . He lives at home and has home health. - Family History Father Medical History: Heart disease Brother Medical History: Lung disease - Social History Smoking Status: Current every day smoker Alcohol use: Yes CD- Drugs: No Caffeine use: No Place of Residence: Home Review of Systems Unremarkable Physical Examination Temp Pulse Resp BP Pulse Ox 97.2 F 75 18 118/66 97 06/29/23 08:00 06/29/23 08:00 06/29/23 08:00 06/29/23 08:00 06/29/23 08:00 General: Alert, In no apparent distress, Oriented x3 Neck: Supple Respiratory: Clear to auscultation bilaterally, Diminished Cardiovascular: Regular rate/rhythm, Normal S1 S2 Gastrointestinal: Normal bowel sounds, Soft and benign Musculoskeletal: No clubbing, No swelling Laboratory Data (last 24 hrs) 06/28/23 06/28/23 06/28/23 13:20 13:20 13:20 WBC 12.90 H Hgb 14.6 Hct 43.7 Plt Count 260 PT 13.4 H INR 1.22 APTT 42.1 H Sodium 136 Potassium 3.4 L BUN 13 Creatinine 1.06 Glucose 107 H Total Bilirubin 0.6 AST 8 L ALT 19 Alkaline Phosphatase 69 - Problems (1) COPD exacerbation Current Visit: Yes Status: Acute Plan: Patient is 68 years of age recurrent hospital admission admitted with COPD exacerbation he is quit drinking alcohol is sick for the past 3 days chest x-ray is clear there is no evidence of pneumonia labs reviewed white count is now normal oxygenation satisfactory resume some of his home medications changed to p.o. antibiotics p.o. prednisone ambulate plan for discharge blood pressure slightly low echocardiogram in 2020 shows normal ejection fraction DC Lasix DC amlodipine continue with spironolactone add bronchodilators possible discharge a.m. if still continues to smoke
[2023-06-29 12:41] LABS: Specific Gravity 1.013 (1.005-1.030); Urine Bacteria None Seen /HPF (<20); Urine Bilirubin NEGATIVE (Negative); Urine Blood Negative (Negative); Urine Clarity Turbid (Clear); Urine Color Light-Yellow (Yellow); Urine Glucose NEGATIVE (Negative); Urine Protein NEGATIVE (Negative); Urine RBC <5 /HPF (None Seen); Urine Urobilinogen Normal (Normal)
[2023-06-29] MEDS ORDERED: METHYLPREDNISOLONE 40 MG INJ IV SCH (17:00)
[2023-06-30] MEDS: IPRATROPIUM BROM 0.5MG/2.5ML NEB SCH ×3 (01:45→13:55)
[2023-06-30 03:00] LABS: Absolute Lymphocytes (CBC) 0.5 K/uL (0.7-4.9); Hematocrit 35.8 % (39.6-49.0); Lymphocytes % 4.8 % (15.3-44.8); MCV 88.9 fL (80-100); MPV 7.3 fL (7.6-11.3); Platelets 239 thou/uL (152-406); RBC Red Blood Cell Count 4.03 M/uL (4.33-5.43)
[2023-06-30 03:12] LABS: Magnesium 1.8 mg/dL (1.6-2.4); Phosphorus 2.8 mg/dL (2.5-4.9); Potassium 3.9 mEq/L (3.5-5.1)
[2023-06-30] MEDS ORDERED: MAGNESIUM SULFATE 1 gm IVPB 1 GM/100 ML BAG IV ONE (04:22)
[2023-06-30] MEDS: ARFORMOTEROL TARTRATE 15 MCG/2 ML VIAL.NEB NEB SCH (08:25)
[2023-06-30] MEDS ORDERED: POTASSIUM CL SA 10 MEQ TAB PO SCH (09:00)
[2023-06-30] MEDS: APIXABAN 5 MG TABLET PO SCH (09:10)
[2023-06-30] MEDS: predniSONE 20 MG TAB PO SCH (09:10)
[2023-06-30] MEDS: ROFLUMILAST 500 MCG TABLET PO SCH (09:10)
[2023-06-30] MEDS: SPIRONOLACTONE 25 MG TABLET PO SCH (09:11)
[2023-06-30] MEDS: levoFLOXacin 750 MG TAB PO SCH (09:11)
[2023-06-30 09:12] VITALS: BP 127/70
[2023-06-30 10:15] VITALS: TEMP 97.9
--- NOTE | 2023-06-30 10:16 | P.DS ---
Admission Date: 06/28/23 Discharge Date: 06/30/23 Disposition: ROUTINE DISCHARGE Discharge Condition: GOOD Reason for Admission: COPD exacerbation Consultations: Pulmonology Brief History of Present Illness: Randolph Mckeon is a 68 year old male with Pmhx COPD, Afib, CHF, HTN, PNA, and stroke who presents to the ED with c/o COPD exacerbation. He reports this exacerbation has onset was two weeks ago with productive cough and worsening symptoms yesterday. He reports being admitted for COPD exacerbation two weeks ago and being discharge on PO antibiotics. He does continue to smoke but has cut back some. On examination he is on RA sating 89%, in no acute distress, currently not coughing. He reports abdominal soreness from coughing but no chest pain. Hospital Course: Problem List Acute on chronic hypoxic respiratory failure secondary to COPD exacerbation-on chronic home O2 at night, on chronic steroids Atrial fibrillation on chronic anticoagulation Chronic diastolic congestive heart failure Hypertension History of CVA Tobacco abuse Patient were admitted to the hospital for a COPD exacerbation and treated with steroids, antibiotics, nebulizer treatments, and inhalers. His breathing has improved and he were seen by his lung doctor Dr. Holt who made some recommendations for additional medications including prednisone 10mg PO twice daily for 5 days and augmentin 875mg twice daily for five days. Please follow up with your primary care doctor and your lung doctor in the next 1-2 weeks. Please stop smoking/using tobacco product. Continue your other home medications as prescribed. Vital Signs/Physical Exam: Temp Pulse Resp BP Pulse Ox 97.5 F 84 18 127/70 94 06/30/23 04:00 06/30/23 09:11 06/30/23 04:00 06/30/23 09:11 06/30/23 04:00 General: Alert, In no apparent distress, Oriented x3 HEENT: Atraumatic, PERRLA, EOMI Neck: Supple, JVD not distended Respiratory: Normal air movement, Diminished Cardiovascular: No edema, Regular rate/rhythm, Normal S1 S2 Capillary refill: <2 Seconds Gastrointestinal: Normal bowel sounds, No tenderness Musculoskeletal: No tenderness Integumentary: No rashes Neurological: Normal speech, Normal tone, Normal affect Laboratory Data at Discharge: WBC 10.80 thou/uL (4.3-10.9) 06/30/23 02:33 Hgb 12.1 g/dL (13.6-17.9) L 06/30/23 02:33 Hct 35.8 % (39.6-49.0) L 06/30/23 02:33 Plt Count 239 thou/uL (152-406) 06/30/23 02:33 PT 13.4 SECONDS (9.5-12.5) H 06/28/23 13:20 INR 1.22 06/28/23 13:20 APTT 42.1 SECONDS (24.3-36.9) H 06/28/23 13:20 Sodium Cancelled 06/30/23 05:00 Potassium Cancelled 06/30/23 05:00 BUN Cancelled 06/30/23 05:00 Creatinine Cancelled 06/30/23 05:00 Glucose Cancelled 06/30/23 05:00 Phosphorus 2.8 mg/dL (2.5-4.9) 06/30/23 02:33 Magnesium 1.8 mg/dL (1.6-2.4) 06/30/23 02:33 Total Bilirubin 0.6 mg/dL (0.2-1.0) 06/28/23 13:20 AST 8 U/L (15-37) L 06/28/23 13:20 ALT 19 U/L (16-61) 06/28/23 13:20 Alkaline Phosphatase 69 U/L (45-117) 06/28/23 13:20 Home Medications: Trelelibrado Ellipta 100-62.5-25 1 inh IH DAILY 09/30/22 Amlodipine [Norvasc*] 10 mg PO DAILY 02/22/23 Apixaban [Eliquis] 5 mg PO BID 02/22/23 Furosemide [Lasix] 80 mg PO DAILY 02/22/23 Spironolactone 25 mg PO DAILY 02/22/23 Roflumilast [Daliresp*] 500 mcg PO DAILY 30 Days #30 tab 05/20/23 Ipratropium/Albuterol Sulfate [Iprat-Albut 0.5-3(2.5) mg/3 ml] 3 ml IH Q6H PRN #120 amp 06/11/23 predniSONE [Deltasone*] 10 mg PO DAILY #30 tab 06/11/23 Tamsulosin [Flomax*] 0.4 mg PO BEDTIME 06/29/23 Amox/Clavulanate [Augmentin 875-125 Tab] 875 mg PO BID 5 Days #10 tab 06/30/23 Furosemide 80 mg PO DAILY #30 tab 06/30/23 Tamsulosin HCl 0.4 mg PO DAILY #30 cap 06/30/23 predniSONE [Deltasone*] 10 mg PO BID 5 Days #10 tab 06/30/23 New Medications: Amox/Clavulanate [Augmentin 875-125 Tab] 875 mg PO BID 5 Days #10 tab predniSONE [Deltasone*] 10 mg PO BID 5 Days #10 tab Furosemide 80 mg PO DAILY #30 tab Tamsulosin HCl 0.4 mg PO DAILY #30 cap Physician Discharge Instructions: You were admitted to the hospital for a COPD exacerbation and treated with steroids, antibiotics, nebulizer treatments, and inhalers. Your breathing has improved and you were seen by your lung doctor Dr. Holt who made some recomm endations for medications including prednisone 10mg PO twice daily for 5 days and augmentin 875mg twice daily for five days. Please follow up with your primary care doctor and your lung doctor in the next 1-2 weeks. Please stop smoking/using tobacco product. Diet: AHA Activity: Ad kate Followup: Cooper Holt MD [ACTIVE - CAN ADMIT] - 1 Week Meaghan Chisholm DO [Primary Care Provider] - 1-2 Weeks Time spent managing pt's care (in minutes): 35
--- NOTE | 2023-06-30 11:51 | P.PN ---
Subjective Date of Service: 06/30/23 Chief Complaint: COPD exacerbation Subjective: Improving (Patient is doing well still congested to cough up any sputum) Review of Systems General: Weakness Respiratory: Cough, Hemoptysis Physical Examination - Vital Signs Temperature: 97.9 F Blood Pressure: 127/70 Pulse: 84 Respirations: 20 Pulse Ox (%): 97 - Physical Exam General: Alert, Oriented x3 Neck: Supple Respiratory: Rhonchi/gurgles Cardiovascular: No edema, Normal pulses, Regular rate/rhythm - Studies Microbiology Data (last 24 hrs): 06/28/23 13:45 Blood - Blood Gram Stain - Final Assessment And Plan - Current Problems (Diagnosis) (1) COPD exacerbation Current Visit: Yes Status: Acute Plan: Patient is 68 years of age admitted with recurrent COPD exacerbation has some chest congestion and able to cough up any sputum Labs reviewed no evidence of any infection or bronchitis patient can be discharged home on prednisone 10 twice daily in addition to an antibiotic continue with his inhalers and Daliresp patient has quit drinking although he continues to smoke
[2023-06-30 14:47] VITALS: O2SAT 95
== END 2023-06-30 14:35 | disposition home health service (06) | DRG 871 ==
LOC: ER 12:22 → ERHOLD 15:50 → 2ND 19:33
PROVIDERS: ADMIT Internal Medicine; ATTEND Hospitalist
DX: A41.9 Sepsis, unspecified organism (principal); J96.21 Acute and chronic respiratory failure with hypoxia; J44.1 Chronic obstructive pulmonary disease with (acute) exacerbation; I50.32 Chronic diastolic (congestive) heart failure; I11.0 Hypertensive heart disease with heart failure; I48.91 Unspecified atrial fibrillation; F17.210 Nicotine dependence, cigarettes, uncomplicated; Z63.5 Disruption of family by separation and divorce; Z11.52 Encounter for screening for COVID-19; Z86.73 Personal history of transient ischemic attack (TIA), and cerebral infarction without residual deficits; Z79.01 Long term (current) use of anticoagulants; Z99.81 Dependence on supplemental oxygen; Z79.52 Long term (current) use of systemic steroids; Z79.899 Other long term (current) drug therapy; Z28.310 Unvaccinated for COVID-19
CPT/HCPCS: 36415; 71045; 80048; 80053; 81001; 83605; 83735; 84100; 85025; 85610; 85730; 87040; 87077; 87186; 87205; 87635; 87804; 93005; 94640; 99285; J0696; J1644; J2930; J3475; J7050; J7512; J7605; J7613; J7644

== ENCOUNTER 2023-07-25 08:18 | Inpatient (IN) | payer OTHER, BC ==
--- OUTSIDE RECORDS SUMMARY | 2023-07-25 08:24 | XMS REPORT | Continuity of Care Document ---
:1955 Author Organization [facility] t Address [address] [place] [address] [place] [id number] Care Team Providers Name Role Phone ADRIAN OROPEZA Attending Clinician Unavailable Jasson ZULUAGA, Wesley Matias Attending Clinician Thad ZULUAGA, Stacey Attending Clinician Jose Enrique ZULUAGA, Adrian Quinones Attending Clinician [phone] Latoya ZULUAGA, Lucas Attending Clinician Sheikh MARGARETH, Keo Patton Attending Clinician WESLEY MENDOZA Admitting Clinician Unavailable Payers Payer Name Policy Type Policy Number Effective Date Expiration Date S regan MEDICARE A B [id number] 2022 00:00:00 [place] [id number] 2022 OS 00:00:00 Problems Condition Condition Condition Status Onset Resolution Last Treating Co mments Source Name Details Category Date Date Treatment Clinician Date COPD COPD Disease Recurre [facility] exacerb[facility] nce 12-28 Audrey kes on on 00:00: Medical 00 [place] Colon Colon Disease Active [facility] polyp [facility] -[facility] 00[facility]: [facility] 00 [place] Shortness Shortness Disease Active [facility] breath of breath -29 [facility] 00:00: Medical 00 Center Allergies, Adverse Reactions, Alerts Allergy Allergy Status Severity Reaction(s) Onset Inactive Treating Comm ents Source Name Type Date Date Clinician NO KNOWN Allergy Active [facility] Social History Social Habit Start Date Stop Date Quantity Comments Source Sexual orientation 2022-12-[address] [facility] 04:05:03 (finding) Medical Center History of tobacco Passive smoker [facility] use [facility] Center History [facility] Transport Non-Med Medical Center Alcohol intake 2022-12-25 2022-12-25 Ex-drinker [facility] 00:[facility]00 00:00:00 (finding) Medical Center History of Social 2022-12-25 2022-12-[address] [facility] function 00:00:00 00:00:00 Medical Center Exposure to 2022-12-09 2022-12-[address] [facility] SARS-CoV-2 (event) 00:00:00 03:57:00 Medica l Center Tobacco use and 2022-12-19 2022-12-[address] [facility] exposure 00:00:00 00:00:00 non-user Medical Center History [facility] 2022-12-19 2022-12-[address] [facility] Transport Med - In 00:00:00 00:00:00 Medica l the past 12 months, Luz espinoza has lack of transportation kept you from medical appointments or from getting medications? History [facility] Housing 2022-12-19 2022-12-[address] [facility] Unable to Pay - In 00:00:00 00:00:00 Medica l the last 12 months, Luz espinoza was there a time when you were not able to pay the mortgage or rent on time? History [facility] Housing 2022-12-19 2022-12-[address] [facility] Places Lived 00:00:00 00:00:00 Medical Center History [facility] Housing 2022-12-19 2022-12-[address] [facility] Homeless Last Year - 00:00:00 00:00:00 [place] In the last 12 Center months, was there a time when you did not have a steady place to sleep or slept in a care home (including now)? Cigarettes smoked 2022-12-19 2022-12-[address] [facility] current (pack per 00:00:00 00:00:00 Medical day) - Reported Center Cigarette pack-years 2022-12-19 2022-12-[address] [facility] 00:00:00 00:00:00 Medical Center Sex Ass[birth year] At [birth year] [facility] 00:00:00 00:00:00 Medical Center Smoking Status Start Date Stop Date Source Smokes tobacco daily 2022-12-19 00:00:00 [facility] Medications Ordered Filled Start Stop Current Ordering Indication Dosage Frequency Signature Comments Components Source Medication Medication Date Date Medication? Clinician (SIG) Name Name fluticasone 3-0 Yes Inhale by C [facility] -umeclidin- 5-08 mouth via [place] [facility] vilanter 12:54: inhaler. Medic al (Trelegy 02 [place] Ellipta) 200-62.5-25 mcg DsDv amLODIPine 3-0 Yes [...] vilanter 12:54: inhaler. Medic al (Trelegy 02 [place] Ellip) 200-62.5-25 mcg DsDv amLODIPine 2023-0 Yes 5mg [...] vilanter 12:54: inhaler. Medic al (Trelegy 02 [place] Ellip) 200-62.5-25 mcg DsDv amLODIPine 2023-0 Yes 5mg QD Take 1 [facility] (NORVASC) 5 5-08 tablet (5 Sanyd es MG tablet 12:54: mg total) Med [...] Cent er tablet in the morning. propranoloL 3-0 2023- No 10mg Q.5D Take 1 [facility]I [...] by Me dical mL 47 :00 nebulizati [place] nebulizer on every 6 solution (six) hours [...] by Me dical mL 47 :00 nebulizati [place] nebulizer on every 6 solution (six) hours as needed for Wheezing. propranoloL 2023-0 2023- No 10mg Q.5D Take [address] (INDERAL) 5- 05-08 tablet (10 [place] 10 MG 10:58: 00:00 mg total) Medica l tablet 47 :00 by mouth Center in the morning and 1 tablet (10 mg total) before bedtime. albuterol 2023-0 2023- No 1.25mg Take [address] (ACCUNEB) - 05-08 (1.25 mg [facility] 1.25 mg/3 10:58: [...] (six) hours as needed for Wheezing. propranoloL 3-0 3- No 10mg Q.5D Take [address] (INDERAL) - 05-08 tablet (10 [facility] 10 MG 10:58: 00:00 mg total) Medica l tablet 47 :00 by mouth Center in the morning and 1 tablet (10 mg total) before bedtime. albuterol 2023-0 3- No 1.25mg Take 3 mLs CHI [...] Cent er tablet in the morning. propranoloL 3-0 Yes 10mg Q.5D Take [address] [...] 1.25mg Take [address] (ACCUNEB) 12-21 (1.25 mg [facility] 1.25 mg/3 15:55: total) [...] Health Diastolic blood 2022-12-28 11:00:00 74 mm[Hg] [facility] S t [facility] Heart rate 2022-12-28 11:00:00 65 /min [facility] Body temperature 2022-12-28 11:00:00 36.28 Mirian [facility] Respiratory rate 2022-12-28 11:00:00 20 /min [facility] Oxygen saturation in 2022-12-28 11:00:00 100 /min [facility] Arterial blood by Medical Ce nter Pulse oximetry Systolic blood 2022-12-28 07:00:00 117 mm[Hg] [facility] Diastolic blood 2022-12-28 07:00:00 65 mm[Hg] [facility] Heart rate 2022-12-28 07:00:00 62 /min [facility] Body temperature 2022-12-28 07:00:00 36.61 Mirian [facility] Respiratory rate 2022-12-28 07:00:00 20 /min [facility] Oxygen saturation in 2022-12-28 07:00:00 98 /min [facility] Arterial blood by Medical Ce nter Pulse oximetry Body height 2022-12-19 06:46:00 180.3 cm [facility] Body weight 2022-12-19 06:46:00 97.7 kg [facility] BMI 2022-12-19 06:46:00 30.04 kg/m2 [facility] Procedures Procedure Date / Time Performed Performing Clinician Sour e CBC W/PLT COUNT & AUTO 2022-12-28 04:14:00 Jose Enrique, [facility] MAGNESIUM 2022-12-28 04:14:00 Jose Enrique, [facility] BASIC METABOLIC PANEL 2022-12-28 04:14:00 Jose Enrique, [facility] CBC W/PLT COUNT & AUTO 2022-12-28 04:14:00 Jose Enrique [facility] HIGH SENSITIVITY 2022-12-27 00:19:00 Jose Enrique [facility] s TROPONIN I [facility] BASIC METABOLIC PANEL 2022-12-27 00:19:00 Jose Enrique, [facility] CBC W/PLT COUNT & AUTO 2022-12-27 00:19:00 Jose Enrique, [facility] 2022-12-27 00:19:00 Jose Enrique, [facility] TSH/FREE T4 IF INDICATED 2022-12-27 00:19:00 Jose Enrique, [facility] CBC W/PLT COUNT & AUTO 2022-12-27 00:19:00 Jose Enrique, [facility] S t [facility] HIGH SENSITIVITY 2022-12-26 13:48:00 Jose Enrique, [facility] s TROPONIN I [facility] ECG 12-LEAD 2022-12-26 12:37:14 Unknown, Hl7 [facility] ECG 12-LEAD 2022-12-26 12:37:14 Unknown, Hl7 [facility] ECG 12-LEAD 2022-12-26 12:36:52 Jose Enrique, [facility] ECG 12-LEAD 2022-12-26 12:36:52 Unknown, Hl7 [facility] ECG 12-LEAD 2022-12-26 12:36:52 Unknown, Hl7 [facility] CBC W/PLT COUNT & AUTO 2022-12-26 02:27:00 Jose Enrique, [facility] S t [facility] BASIC METABOLIC PANEL 2022-12-26 02:27:00 Jose Enrique, [facility] MAGNESIUM 2022-12-26 02:27:00 Jose Enrique, [facility] CBC W/PLT COUNT & AUTO 2022-12-26 02:27:00 Jose Enrique, [facility] S t [facility] REPORT OF PROCEDURE - 2022-12-25 14:41:41 Keo Heredia [facility] ENDOSCOPY [facility] TISSUE EXAM 2022-12-25 14:10:00 Keo Heredia [facility] COLONOSCOPY, WITH 2022-12-25 13:28:00 Keo Heredia [facility] POLYPECTOMY [facility] CBC W/PLT COUNT & AUTO 2022-12-25 04:11:00 Jose Enrique, [facility] BASIC METABOLIC PANEL 2022-12-25 04:11:00 Jose Enrique, [facility] MAGNESIUM 2022-12-25 04:11:00 Jose Enrique, [facility] CBC W/PLT COUNT & AUTO 2022-12-25 04:11:00 Jose Enrique, [facility] POCT-GLUCOSE METER 2022-12-24 12:01:00 Jose Enrique, [facility] CBC W/PLT COUNT & AUTO 2022-12-24 03:55:00 Jose Enrique, [facility] BASIC METABOLIC PANEL 2022-12-24 03:55:00 Jose Enrique, [facility] MAGNESIUM 2022-12-24 03:55:00 Jose Enrique, [facility] CBC W/PLT COUNT & AUTO 2022-12-24 03:55:00 Jose Enrique, [facility] CBC W/PLT COUNT & AUTO 2022-12-23 04:33:00 [facility], [facility] BASIC METABOLIC PANEL 2022-12-23 04:33:00 [facility], [facility] MAGNESIUM 2022-12-23 04:33:00 [facility], [facility] CBC W/PLT COUNT & AUTO 2022-12-23 04:33:00 Jose Enrique, [facility] P.E.T./CT SKULL BASE TO 2022-12-22 16:11:00 Stacey Oneil [facility] MID-THIGH [facility] POCT-GLUCOSE METER 2022-12-22 13:52:00 Jose Enrique, [facility] US CHEST 2022-12-22 11:37:00 Jose Enrique, [facility] CBC W/PLT COUNT & AUTO 2022-12-22 03:04:00 Jose Enrique, [facility] BASIC METABOLIC PANEL 2022-12-22 03:04:00 Jose Enrique, [facility] MAGNESIUM 2022-12-22 03:04:00 Jose Enrique, [facility] CBC W/PLT COUNT & AUTO 2022-12-22 03:04:00 [facility], [facility] PROTHROMBIN TIME/INR 2022-12-21 14:29:00 Rubia Brooks [facility] 2D ECHO W/ DOPPLER 2022-12-21 12:19:12 Wesley Mendoza [facility] (CW/PW/COLOR) [facility] 2D ECHO W/ DOPPLER 2022-12-21 12:19:12 Wesley Mendoza [facility] (CW/PW/COLOR) [facility] CBC W/PLT COUNT & AUTO 2022-12-21 08:40:00 [facility], [facility] CBC W/PLT COUNT & AUTO 2022-12-21 08:40:00 [facility], [facility] BASIC METABOLIC PANEL 2022-12-21 08:40:00 [facility], [facility] MAGNESIUM 2022-12-21 08:40:00 [facility] VANCOMYCIN LEVEL, TROUGH 2022-12-20 09:34:00 Chalo [facility] MRSA SCREEN 2022-12-19 12:58:00 Chalo [facility] XR CHEST 1 VIEW PORTABLE 2022-12-19 12:50:[address] [facility] / BEDSIDE Medical [facility] ABORH, MANUAL 2022-12-19 06:31:00 Sindy Blanco [facility] TYPE AND SCREEN, 2022-12-19 06:03:00 Wesley Mendoza [facility] AUTOMATED [facility] CBC W/PLT COUNT & AUTO 2022-12-19 06:03:00 Wesley Mendoza [facility] VANCOMYCIN LEVEL, RANDOM 2022-12-19 06:03:00 Wesley Mendoza [facility] CBC W/PLT COUNT & AUTO 2022-12-19 06:03:00 Wesley Mendoza [facility] BASIC METABOLIC PANEL 2022-12-19 06:03:00 Wesley Mendoza [facility] MAGNESIUM 2022-12-19 06:03:00 Wesley Mendoza [facility] PHOSPHORUS 2022-12-19 06:03:00 Wesley Mendoza [facility] OSMOLALITY, SERUM 2022-12-19 06:03:00 Wesley Mendoza [facility] EKG-SCANNED 2022-12-19 00:00:00 [facility] Plan of Care Planned Activity Planned Date Details Comments Source Future Scheduled 2032-12-25 Screening for malignant [facility] Test 00:00:00 neoplasm of colon Medical Ce nter (procedure) [code = 755103587] Future Scheduled 2032-12-25 Screening for malignant [facility] Test 00:00:00 neoplasm of colon Medical Ce nter (procedure) [code = 401348318] Future Scheduled 2032-12-25 Screening for malignant [facility] Test 00:00:00 neoplasm of colon Medical Ce nter (procedure) [code = 566915583] Future Scheduled 2032-12-25 Screening for malignant [facility] Test 00:00:00 neoplasm of colon Medical Ce nter (procedure) [code = 358614348] Future Scheduled 2032-12-25 Screening for malignant [facility] Test 00:00:00 neoplasm of colon Medical Ce nter (procedure) [code = 505994745] Future Scheduled 2032-12-25 Screening for malignant [facility] Test 00:00:00 neoplasm of colon Medical Ce nter (procedure) [code = 889741760] Future Scheduled 2032-12-25 Screening for malignant [facility] Test 00:00:00 neoplasm of colon Medical Ce nter (procedure) [code = 742944224] Future Scheduled 2032-12-25 Screening for malignant [facility] Test 00:00:00 neoplasm of colon Medical Ce nter (procedure) [code = 473040390] Future Scheduled 2032-12-25 Screening for malignant [facility] Test 00:00:00 neoplasm of colon Medical Ce nter (procedure) [code = 884285002] Future Scheduled 2032-12-25 Screening for malignant [facility] Test 00:00:00 neoplasm of colon Medical Ce nter (procedure) [code = 009814705] Future Scheduled 2032-12-25 Screening for malignant [facility] Test 00:00:00 neoplasm of colon Medical Ce nter (procedure) [code = 034272012] Future Scheduled 2032-12-25 Screening for malignant [facility] Test 00:00:00 neoplasm of colon Medical Ce nter (procedure) [code = 868618486] Future Scheduled 2023-04-23 Influenza Vaccine (#1) C [...] screening Medical C enter (procedure) [code = 669315619] Future Scheduled [address] [facility] Test 00:00:00 aneurysm screening Medical C enter (procedure) [code = 278933508] Future Scheduled [address] [facility] Test 00:00:00 aneurysm screening Medical C enter (procedure) [code = 010553892] Future Scheduled [address] [facility] Test 00:00:00 aneurysm screening Medical C enter (procedure) [code = 620608620] Future Scheduled [address] [facility] Test 00:00:00 aneurysm screening Medical C enter (procedure) [code = 781298162] Future Scheduled [address] [facility] Test 00:00:00 aneurysm screening Medical C enter (procedure) [code = 321134555] Future Scheduled 2022-02-20 Medicare IPPE (WELCOME [facility] 00:00:00 TO MEDICARE) [code = Medical Center Medicare IPPE (WELCOME TO MEDICARE)] Future Scheduled 2022-02-20 Medicare IPPE (WELCOME [facility] 00:00:00 TO MEDICARE) [code = Medical Center Medicare IPPE (WELCOME TO MEDICARE)] Future Scheduled 2021-11-15 PNEUMOCOCCAL 65+ YRS ([address] [facility] Test 00:00:00 - PCV) [code = [facility] PNEUMOCOCCAL 65+ YRS (2 - PCV)] Future Scheduled 2007 Screening for malignant [facility] Test 00:00:00 neoplasm of lung Medical Gerardo ter (procedure) [code = 638754195] Future Scheduled 2007 SHINGLES VACCINES ([address] [facility] 00[facility]00[facility]00 [facility] Future Scheduled 2007 Screening for malignant [facility] Test 00:00:00 neoplasm of lung Medical Gerardo ter (procedure) [code = 289022346] Future Scheduled 2007 SHINGLES VACCINES ([address] [facility] Test 00:00[facility]00 [facility])] Future Scheduled 2007 Screening for malignant [facility] Test 00:00:00 neoplasm of lung Medical [facility] (procedure) [code = 536737822] Future Scheduled 2007 SHINGLES VACCINES ([address] [facility] 00:00:00 2) [facility] Future Scheduled 2007 Screening for malignant [facility] Test 00:00:00 neoplasm of lung Medical Gerardo [facility] (procedure) [code = 496125125] Future Scheduled 2007 SHINGLES VACCINES ([address] [facility] 00:00[facility]00 [facility] Future Scheduled 2007 Screening for malignant [facility] Test 00:00:00 neoplasm of lung Medical Gerardo ter (procedure) [code = 928959768] Future Scheduled 2007 SHINGLES VACCINES ([address] [facility] Test 00:00:00 2) [facility])] Future Scheduled 2007 Screening for malignant [facility] Test 00:00:00 neoplasm of lung Medical [facility] (procedure) [code = 307286394] Future Scheduled 2007 SHINGLES VACCINES ([address] [facility] 00:00:00 2) [facility])] Future Scheduled 1992 Lipid panel (procedure) [facility] 00:00:00 [code = 56998535] Medical Ce nter Future Scheduled 1992 Lipid panel (procedure) [facility] Test 00:00:00 [code = 35414057] Medical Ce nter Future Scheduled 1976 DTAP/TDAP/TD [...] [facility] Test 00:00:00 [code = CT Colonography [facility] (combo)] Future Scheduled 1957 Screening for malignant [facility] Test 00:00:00 neoplasm of colon Medical Ce nter (procedure) [code = 355035873] Future Scheduled 1957 Screening for malignant [facility] Test 00:00:00 neoplasm of colon Medical Ce nter (procedure) [code = 410379431] Future Scheduled 1955 Sigmoidoscopy [code = [facility] Sigmoidoscopy] Medical Cente r Future Scheduled 1957 CT Colonography (combo) [facility] Test 00:00:00 [code = [facility] Colonography [facility] [place] [facility] (combo)] Future Scheduled 1957 Screening for malignant [facility] Test 00:00:00 neoplasm of colon Medical Ce nter (procedure) [code = 416832280] Future Scheduled 1957 Screening for malignant [facility] Test 00:00:00 neoplasm of colon Medical Ce nter (procedure) [code = 539865420] Future Scheduled 1955 Sigmoidoscopy [code = [facility] 00:00:00 Sigmoidoscopy] Medical Cente r Future Scheduled 1957 CT Colonography (combo) [facility] Test 00:00:00 [code = CT Colonography [facility] [place] [facility] (combo)] Future Scheduled 1957 Screening for malignant [facility] Test 00:00:00 neoplasm of colon Medical Ce nter (procedure) [code = 436163843] Future Scheduled 1957 Screening for malignant [facility] Test 00:00:00 neoplasm of colon Medical Ce nter (procedure) [code = 612885514] Future Scheduled 1955 Sigmoidoscopy [code = [facility] 00:00:00 Sigmoidoscopy] Medical Cente r Future Scheduled 1957 CT Colonography (combo) [facility] Test 00:00:00 [code = CT Colonography [facility] [place] [facility] (combo)] Future Scheduled 1957 Screening for malignant [facility] Test 00:00:00 neoplasm of colon Medical Ce nter (procedure) [code = 577840502] Future Scheduled 1957 Screening for malignant [facility] Test 00:00:00 neoplasm of colon Medical Ce nter (procedure) [code = 531246912] Future Scheduled 1955 Sigmoidoscopy [code = [facility] 00:00:00 Sigmoidoscopy] Medical Cente r Future Scheduled 1957 CT Colonography (combo) [facility] Test 00:00:00 [code = CT Colonography [facility] [place] [facility] (combo)] Future Scheduled [address] Screening for malignant [facility] Test 00:00:00 neoplasm of colon Medical Ce nter (procedure) [code = 989651145] Future Scheduled 1957 Screening for malignant [facility] Test 00:00:00 neoplasm of colon Medical Ce nter (procedure) [code = 285482017] Future Scheduled 1955 Sigmoidoscopy [code = [facility] 00:00:00 Sigmoidoscopy] Medical Cente r Future Scheduled 1957 CT Colonography (combo) [facility] Test 00:00:00 [code = CT Colonography [facility] (combo)] Future Scheduled 1957 Screening for malignant [facility] Test 00:00:00 neoplasm of colon Medical Ce nter (procedure) [code = 522374025] Future Scheduled 1957 Screening for malignant [facility] Test 00:00:00 neoplasm of colon Medical Ce nter (procedure) [code = 721929219] Future Scheduled 1955 Sigmoidoscopy [code = [facility] 00:00:00 Sigmoidoscopy] Medical Melvie r Encounters Start End Encounter Admission Attending Care Care Encounter Source Date/Time Date/Time Type Type Clinicians Facility Department ID 2022-12-19 2022-12-28 Inpatient ER [facility] [id number] [facility] 03:40:00 12:53:00 [facility] 2022-12-19 2022-12-28 [facility] Wesley Mendozassa [facility] [id number] 03:40:00 12:53:00 Encounter Stacey Oneil Jose Enrique, [facility] 2022-12-19 2022-12-28 [facility] Wesley Mendoza oPlly [facility] [id number] 03:40:00 12:53:00 Encounter Stacey Oneil Jose Enrique, [facility] 2022-12-26 2022-12-26 Orders [facility] [id number] 00:00:00 00:00:00 [facility] 2022-12-26 2022-12-26 Orders [facility] [id number] 00:00:00 00:00:00 [facility] 2022-12-25 2022-12-[id number] 13:28:00 14:53:00 Event [facility] 2022-12-25 2022-12-25 [facility] [id number] 13:28:00 14:53:00 Event [facility] 2022-12-25 2022-12-25 Surgery Sheikh [facility] [id number] 13:00:00 14:00:00 [facility] 2022-12-25 2022-12-25 Surgery Sheikh [facility] [id number] 13:00:00 14:00:00 [facility] 2022-12-19 2022-12-19 Travel [facility] [id number] [facility] 00:[facility]:00 [facility] 2022-12-19 2022-12-19 Travel [facility] [id number] [facility] 00:[facility]:00 [facility] Results Test Description Test Time Test Comments Results Result Comments Source Tissue Exam 2022-12-28 13:49:30 Test Item Value Reference Range Interpretation Comme nts Case Report (test code = 104) Surgical Pathology Report Case: [id number] Authorizing Provider: Keo Heredia MD Collected: 12/25/2022 02:10 PM Ordering Location: [address] Received: 12/25/2022 04:33 PM Service Pathologist: Triston Armstrong MD Specimens: A) - Polyp, Colon - Transverse, polyp via hot snare B) - Polyp, Colon - Sigmoid, polyp via hot snare C) - Rectal, polyp via hot snare DIAGNOSIS (test code = 3220) f7banRHqGPNzt3euETHpnRDsAuCaJpMpUgQiDo p fsLYnRFsydcIuTWlshDdoRNAmBSLrJM2wkOrgsT r0kZtiBSPccjE1pRXfAYgxy0ioYRQ9w8ndsntuM LSoLQsdTb6oxUSuyJhuTbLxXKVqZOf3mO11RWTf uU8kkRZvGWp3VTEboTFrxmSkWbFdWJDtaOZsmPK 8AMHqHJ8yabdlZFziWEaxOWYatrZ1XEKobFPgB8 ObXZHyBI2hwzzsYQW7WUcfNVUqYTL3ZhWqQGKrp 3Elexl5IkUikLAgBXapdZKzfcklqtRkRAHfNQZB EY4OOHWOVcUYT7YPMoXFFWXUQ2sAJDQJMO2BZPf hvKJhXCFwVyZrIXKEBLcYLwBDNEJUY52EDZDckc owWYTaZa4uH08NO16fMLGRF29KQNVrODFOPBpSB AMOX77AYcjgKIWzwWZkXO1GGQEAGIYYVRYHRU0M HFQpuBMnTNKofiQTLoUXTUOYLK6yXPNRUQkRTCS DD99TSfiuLQOanDYvRV4RRRBDXE7IJReVN1YQDL CDEZ8ZYNShvBDfuIdveeNhOSqsh8FqBYoxYVEoN N6iyKgjVCRlUR3eSXJsL5tyyQ0bnsj5IhMsIKFf JhF4YJMitqS2Qyt7JEPmGUmti2jnw0QjFSHnKHk 0mGkkWjBpCRIsl7skjaFtJxCmAZTfBSAgTNSrdR PrY529h6joo4jfnxMsvKA8QSTcFSD7ZZqkihXts yV4YGmfuHSkZdV5ZYcopiZsGWehebDgvnEcCth0 DAQkB178KGI9pXivk2yfUIN1VYQiSABhWaOtPh7 lwVDjO477UHZxNIHJXFCkpGj0HORfgeMwzrQizQ NUp423D654d0awQYZgeeJfzFhBfgnvf7yrD445T WKidTDqfkEmDwDjIMVpeKFgkJE4ZTKyKS3xausv OQdoGWkyKUXqbwY9HERxuDTrC8DhANAtZJ3komi iQBG8SFhcCOQdLVE4EjMaAWJqf0Tsniu4XlVycg 7dpf92UZO3h9RciZhcVNE2HNB8QcAbBl4phCPyH CObDO4hLiZlqUWlZXCoqf89xIrzHTfiIMD9BDMw ruClh9Vrj1ueAuTpniGsO3qiS1TcPZSzSVBpCIH yMhRjmgCqf9Ffq6PtuXCzjLs9v6fzZDNrDYSbrD yuc1caBIO1PQRokXQgH3cugG0eQHFvKZ6tdmply 9ciCOdyAAqbZOFfbNJ7cmZ6UUBnvXBhA9TvbS0g QGGqVIkaMAKuhbv6JzHdPu6ylOWqtHdeWMmsXex wYWdlXHBnbmNvbnRccGduZGVjXHBsYWluXHBsYW luXGYwXGZzMjRccWxcbGFuZzEwMzNcaGljaFxmM MvqGoXyVNJuJMeaR9bjHnLkMlUeQws2NUQpvSUl JCFtIpg2AMCcdGWrNGKJlOxptB2xMUNypFgwgU7 vjSE3MYDvvoLoqDODrR6iLVBZqV7qNkQ3OCJdLz b5APX1FpXidCCnfW4= COMMENT (test code = 3359) z9bsbZLiWEPojVGqJGXlFHzczxJkHHWpySLaR3B zarcrSJsiRW2vQI1gnEaldZFxqTIlWDOjAjXfl0 nzj849aYIdl3iqCBVPzlicmXq3cCsrL86ci7X2I hhyO89dbWExWQX5EQMyCKXdlBPwLULvVXI6IMKy aRWvQ1spJLRgVD4ghemwOMoxYFbqSXUlkOE9ZPG ghNOnJ7MoDGAvWXjbAPYopvh5DvEdNv0hkCYksM unJLezSTImMZKbXCgvJBCoKjZkQE5cl3Wfu2X8R HEkiZ5msEY8ATCbooW4wZF4XXMtCEfkAGV1 CPT Code(s) (test code = 3357) t1hvxZJqVNQckQDyEVYeIUjgcaNxCVNxlDZi Z3B xzyddAEjyBJ3lTR1qhMgnePSgiFEeZYNaLeJoj7 dpy891eJQew6xyBSWHlbaiqLx2bOnvE79pn5K8J kifU28zbIWeQRO1JQFtYIIwoRYqBKUrYXX7VRRh lXAvE9kqKSIvGJ7rlrqlMTenQJpnZCJgoLJ6QBK xsOHrW2SyOXJdXJouRXAzwbj5KjOeYx1jkVFgmU psSLddHQIrFDBsAWoxXARrWoGkGJqbBJB3Y6rvJ XJ9 GROSS DESCRIPTION (test code = x8rvtSXjMXLykAOWFDDsJBOySJ2xdDflgSo0 [facility] [id number]) wWCGtofU6vWYmIUryr1ytMZL1s4njodSCGrmfLP VuAQ0fFDnbGJFoLN1iAeBlAQKuZwMiWYQenDZow bEzSaVgFEThvNHhtIH5FLMeZS9tjvqaQNocPUtq ZHBkkwQ4TCNdgNErM4QmSPRrQB5lncdlXPD9AEA DKfxeLx5auNFcgVrmXlMpJiSgIJWsIYViXOSrxG duWUPpWXk3tT9AQwomY20be8B7Jfi9WEUfIVRoX 0BfAY6gXITkrOMoO60UAhreGPU4QOUTUdvyNekl kUdbk3LkaEEoCAPlQYtpeAJfMDMhWMRuGXcbFzJ IPtSrOhS8Xvn5YVS5PfI4RLx8BRFRTMXxCLE9EA dzFpO6ORv6DGLwUG6wTBjykBAmPIxwNpoqKRmeI 585QItcLWKeF4IeC5OdWQnbKvNzVObgYFTnVYNf WJkaLQCfN8KOPDIbOII9Qzc2WNHyLEn9SRuoU0S FHYVtANO2ABP2OwBuQiC8RIr4CFWOIv2tVvH4ZI O0JVN2WQY0BMVzPXgczAJbHLill2GzOoIfEXQlP HprgxK9MCEiufNhNZxyqYcklA6tQtNkDiAKElPF n1r1zAitU33ng20pKBPHoxKsr2CckiAzJOQuxtC SCbswFDAcBC4FOYQmDBrkVLLsMqCfoGXzH7hbSZ XnH90qq7WKg2JpBQ4QOQe5qgJjhxekyW6kYNXzr wJeOJszO8JhGXDgIuQkWmMrSRt0EEKnoR4fXf5s qLIjnH8dmCWtUUpkAFK4kSEcILShiMedfvXrefJ bPH6yGEGsWNIlH0PiZMOiD43vKUBxvQ4zVKCxIA 5kJUYxs3d2tHnyN25gz86qkZbaLWAbZVc5UvAsO H2daeGjz1LtJflmiGM2LwGjj84yzQY6uaQmWrZg DMQzhaJeb9B2VMFum3M2AWMzcaXqzNVptKYaNGX rjPRsirwgiLHujA0vPP2vHJBaNJlsXFdkRIG9CB Q1PIYeiVVro6zreprnh0vcR3qxULJeEQW9Kt2ud YDwGFTzwlY1c9EuUGhlSMDhLzgqPKKnDCvyiVEl HW3HTEIhCxZtFVJsU0vvUATvGK3RPWYvJVjtkzB tOV1UAPQegZVXFTA7UK0pVMlqKDNoL3GqH9Usdx T5KXKywgVNBtzgPjruwThga1VppSTbBAAgPMbvq RKgJERcZLYqHKigHtFEEhPsRmW7Kpj7PUN7NgB5 ZCv3KEQKFyGhQrUmAaLxLQx8XzWbRQz1DOr9RBz YQeE1Qut2Wbu9SoYpJKZ2GiPoJPz7TEMfIBxyee JiVOejZdlxPIfvM00pnLSnVAdaJkScCBsbfGulE NJqEOT9NX1QVj4wZL4soDMcEUMpiR1rBK6yZ8ct iD8rNMmxKEPtZNnqfRNiDNOLUctbcZLafkpwgMM rnCrijqGdGTMbgUHFKKF8RZ4wRQMWOilzhIVxUQ LroHkwLLolnF4tMWHpEkZyGYVtJ5tfRrOvMZ9ZI RVaFUketmYgMISgI1JmweWwSYbaREBfmr5ehPqf GFifZfKaBMQgk2i3sGAgDGXfPV18Y7QuluBxQMd gbWVkaWNhbCByZWNvcmQgbnVtYmVyIGFuZCIgcG 7zaAGnTIUsvD5yLDD9AlKqIKmsHEMicHrmy0bjH JRki1WkqBPkO14jh2tkzCDzr1CdItU1QV6lj47p pBG4mZNcaUXlIeLtU70scyNfeKHjj3HhsR3pVZA uUUKhCBKkYMGacUSwxdNragJjfZYflOLkoU9tvj Rfq95wCLkszWXhJAImCYPsbOObqLM1PDZsnU4nl E95prJkwrWHMN0qqEWyUC9DIFRkWCjfbBmwDQDk ETSAGduxRHUtVNodk6RvULrovQvbFIKbQsNgZHh aF6KeHHXtPsJkWEqhRNCaP28ui8LNw7Klz2dwtJ pdt4KpaGTkAA7jyZMgFA9Wj6lsJDWdvKEcVJZ2P Uscn5fsREzcYRP1NXKeUfYaHBGyOY0BGhPzKUs9 Thl4BSQcRPr2GBf7RO8YDmGoENByTCDrYbE5AcU dHSv2JUatDN4IJOvqDDqxSfJ0YNF5QMurCoBaSU PjNpJrJLMiRESgZIoqlYUnAV2htKzgKMTfENWuL SP3SIFpiUATb0TxFCAjMStYTaWBNOF3ZBydwAVf AU2MTOVyltYoEYmtsMbcwQ5jkIFeD7fcFoFlKkh lcGljTmVzdERvYzEgDQpcbHRycGFyXGxpbjBccm wqPIugUgMhCXZynJGIo6CkRENPInfxouKuWGIej kMWMmxuNmNxTIZwD9bxGxCoYXzLFPGqjXSiHPTj zgYwl8PaGNaxnpHoMSEbcGMqRCdirWpmhHH3lOC njPCoXH7rARYnBXKwF9PkGGAvX82nRSYrrI2tZY UuFW8uRMIiQII7VOxpcA9sxPMgRxrftAR9NaUsy 38mtMZ9jjBfGnRxAJKmfnUqHHUsdWskSMQftYhq RD7qVLI0vcxpGaMkQpGxqLAoNubgoFZqDdofS99 aGRScIXYauRf4nUOnMND3RS5to45ibUJ4jGAedM YhBvCdS05fjjQpMwSnOMnvHWTlvSwjIJqcQVbqz 8XjTHwgKDKnZTYyVOP3fTLze3TbH6vjBI2xnUWy WD01cSSzqAkmp3PiqLx8pNWmCHSdITLpwUhmk0D 8SQKzijLZGxirBCVeXEwULYL9sX5bLEOgMVW1JM YecbWFZlZdZyJMkIElvUBmMGGuBKxuWI19i3iaB XZqAFiEXjhvAKZml5n4bCjaiE4cMAGyL8WzZJ3m XLPhyexkzPMxECT1nI8kQKAlNJIqnsOIQosbMAE rJDpPwS4lSEGxAhgxavczFJGOVJxZF5FCGDceJV NrCWqnH0ZlREKgcHJvPZ6ZEIIhjkRPSgviRDWjE CHadMGDk8RvYPUUJckiPbPfKkWkCpDNBroxhZfc WrKfvLLjLsY3PASwmLOfDPE2YH0idYghDJQnE6N dR2ByunN8NYAstnJJPetpIPLbHJ9OhS== MICROSCOPIC DESCRIPTION (test code = q8txuDPcHVHekUWwHOEpKZnryhLbRL [place] [address]) hmfdwNAhtTM1eSM5nsCvjnAXkzRFjMWWaZbSfn5 hep620mFSnu9ppVFVDtfjdtGp1pOqnQ60er4C7Z ulyT94ycKEpRTT5NYYiGYUadJFcBHUeLKG8SCQt mFKjT6sxMZFjJT3ogspgBPlzLKagPEEoeKA1VER uoZVdO6QcLUSqLXepKCLmdre6JjKsGi6rfKXakR wuFNdbZCHgRCNbRKuqZWMeQoYuMPaoyf4dF18al WMgYXNzZXNzbWVudCBzdWJzdGFudGlhdGVzIHRo QGDgVd00KSRhxCIvha0tqWMnEZswWFF1 Gross assessment was performed at (test [facility] enter, code = 2777) Department of Pathology, [address] [place] [address], Technical component was performed at [facility] er, (test code = 2778) Department of Pathology, [address] [place] [address], Professional component was performed at [facility] enter, (test code = 2779) Department of Pathology, [address] [place] [address], [facility] [id number] 13:49:30 Test Item Value Reference Range Interpretation Comments Case Report (test code Surgical Pathology = 104) Report Case: [id number] Authorizing Provider: Keo Heredia MD Collected: 12/25/2022 02:10 PM Ordering Location: [address] Received: 12/25/2022 04:33 PM Service Pathologist: Triston Armstrong MD Specimens: A) - Polyp, Colon - Transverse, polyp via hot snare B) - Polyp, Colon - Sigmoid, polyp via hot snare C) - Rectal, polyp via hot snare DIAGNOSIS (test code = [id number] 3220) FuZzEwMzNcZnRuYmpcdWMx IHtccnRmMVxlcGljMTAyMD RrKG8arZxzsOd4iQhrPYZq txM3uUXeUVeln3oxHQR2v6 xaqrnaQGCqNXapJl9twTXd qPqvVwDiNFXaGOv8hC81LQ UtzG1lcPMgMBp4WDOwsCZm lwWiQgYeCSXolPVgeOT7XG WxOD5fvmjjPIobPGxuJNWy kiR9AOOgyOKwS7QhRNPdFW 1lpqloPBB7LThlKISaHYN2 BfYpRUEzi6Gliyr6QfQaoA FyZFxwbGFpblxmczIwIEEu MSTUUI8IWBVFPgIGP3XTEo XVLSLJA6bCIWUZXT1AIFpe cGFyXHRhYiAtVFVCVUxBUi GZFVGUJ79VPDQtrcanMPCw Ks8vD70OX16oXOADJ53FMJ BbYHCUDDsFJLGXA22REngp ZQJqzTZwPP1UQWEKWKDNAB MBUI6OXUNdfYKnTYPghtSP RaFCWUXYXP6vTFFBRCwRWH FLO89BVdojFUCfsSAaUP2E CLNIRJ2SBUzRK2XZFRHTGD 5PTUFccGFyfXtccnRmMVxz p0FrCDuiWAKaAM4whZlxOH LfAK5jAINbB6xpeS2uytr5 LsUvTZDyGoI8WRUokuO7Gk h0DGMuGQmzk4rhf3FqBRZe KWc8fUcaWfOxKFSis8eitz BcZmNoYXJzZXQwIEFyaWFs O082n4hmd2bcrdTkwBI5KU OkCJD5UDpucbEkqiJ1HUpc dSEcVhD6DRphhrCtGBhloi WmulUpEpn2ZBWiM082THO8 mXfmf8rhJFK1XOSkZXClOe ZoEf8lvOOnH563LIQvWUCW DXZvhPd5VCQwfsYezmTxcD EDq565T350h0pkJGUfwvTa fJcPsiaux0dkI636EZTpzC VydzEyMjQwXHBhcGVyaDE1 TENvPT2rymwzIPgvSPmpGA BcghL1WRIbhZWrT5OkGGTj BG9tielfKWM3AOqqDQEaDG S6LhAwDXHyz7Efdde9MbXn vo5ako03XNV9x7XlpRtlZI U8RSG4NrXvFt9rvCFcIFAd BF5eOhWgyYLqZZEyed62xJ rlQCdwHOT4HWTokkHjn2Fd k5ghYpMstwUvP0osO9StIO ZiLBHoNORoPjBlquTtp8Yv y6UyaBAprGn3t1toKTUiKJ XutImod8ejEON3RKHjcSGy L8scbN0xWQSxUY6jjnjdd3 pcTImcTFahTZMdjRH0usQ7 HXVtnQSkF5ZhdX3tXEXkGG hyVHJzhta2AuJhZs7idEOc eTcyMFxzYmtwYWdlXHBnbm NvbnRccGduZGVjXHBsYWlu XHBsYWluXGYwXGZzMjRccW xcbGFuZzEwMzNcaGljaFxm RQptGsWbNZAhZTdaF8rhQg CpNxZuSkf5ZHHdaHMgSCJk Qjc4KTOowJMjVTYNbJclrV 2gOJYiyYnnuV8hhON3YZBd paXriLQFcT0bCZPWfS7jGx K3FXIaJwg6LNM7XiXcyHRc fX0= COMMENT (test code = k3eudKFzUMQdiVXoDBObTA 0455) edsyIsETVrePAlW8Qnmyho QLfiEN7rPK6dyYxsaFXntE WgZWVgPpWhw6clz117qQTf u4vfRKYVuijpjYk8rKjgT1 8mr5W0SjitA21udVOaXWI0 TOIeXTBemYRkLIFeLPU2MQ CfsWDeS8jtXIToKS4spcba KXrzQJzeXROoaVO6WGZniQ McT0ZaAUTuLAblPMOdswz4 HqLzUo9ffOKecBzxTPqkLG ThECGbJIuoEDRvJkAgMD9w m5Udz0T7KEBhuO8pxOX5CL LyvpG2pEW8DZQlSJspLSA2 CPT Code(s) (test code q2htdMAnBPLhcFOoSPQnFZ = 3357) omsuTzGFUlvVLkF3Fdbbyv NEcrGE8uGZ5diCfgrZEpgK BuWVRkAxYxx7dwd590sPGh j7zvWIGZmigqiNt1gAkjU9 3xi4V6GkqwN53paOKfNOF0 FQTnRKKjvEKcCXEqYID1VP BvpNIsV8cnVYSzHI1ulvub KXzlHAfaTJIgmVR3GPTieI GfY5UqISNjBGewHOUkjhs3 YrIiAr3ucLQzyTuyBWwvXL JkXHBsYWluXGZzMjAgODgz MPF1Q4vmNDJ3 GROSS DESCRIPTION (test a1abjTMfQSOwaEDQLNUlIV code = [id number]) BgZD7roRxkdOd1lPohNESj tsY6mTFfCRcdm9wzNNF0t4 ibtzERAifsZEReDE2lJIua TOYyKG2qCpMeOQJfWsSnTE BhcGVydzEyMjQwXHBhcGVy jGE9VBExMW6inntmAJalFT pfIYVyxxG3KZDigJTfG4Lc YLZiVI5luhtcLDQ0QJUIHm rnKl6qjUQyjXbiWyMjTyRm YXJzZXQwXGZuaWwgQXJpYW g2gL6KVxbqC31un0V9Aaf8 QSPmPDHyF1TqPO3sXSHabM IuT46TOwqsIFH7TJUBDvrx OojabSoaq0JcqWGaAHQlWA xcaWQgNTEwMDAgXFxkYiBP TjFkOjT6Vci4TTG0LeP6BM z1NYACZRMwGLH1KHpxYdJ8 OGd2BADoDR2uJAbiwKXrDZ smSqvcIIujH616AOrfVNVd C2KkF3GvTMbnJeNvXMamDL OsCIFbUGxjQHLdA1VFLGKi SND8Xxc2WDVnBTl2MWowF0 THWVRqSWU0PUP5AgTlQiQ4 JVq1TYRHJr5qQeS9IEW2SP A3QVF5PLAvGMwrgMQtCTbx h7CsXeNuWSJgQQmartJ3ER XxgzGbOOqfkRkgmB1pEfUm NbJNCuECd2g6eYhqB72cb3 1rJENFcwUkg0KndfQnCKHu ihTSZnlpRJTxKU4PAZNiNZ npBIPrUgFzgORjU7viNNHa K31au5RHh9GcIH0AGQx4xc TcgtfrmD2qLIPwvgAcJHpo X1BsDGEwUhStBwXoRVf2XF TfqD6qIb8qbANxrF2dpUXl XGevUJT2mGMcNXHgzHrvip MwmbTzFG1iASMwLVXkR0Xh UCEeU28dTRKiiM6fQIUaUF 2tVHPsm9x0wCmjU08qo78g cCegAUFpLHb1KaLmTP1oul Zan3DeFoovhCL4UaPha95r hZS8hzXcNuZbZTRysgHnx1 Q5JPYoh0I8AUTachNxwODb dCBtZWFzdXJpbmcgdXAgdG 4oXN3zZZHtELphXGobKQI2 DCP3UGZpeXCye5dotmdfa0 lwB7xmXOUcVOI3Sq4cfHEg RMXtdcT7s4JaUJhiVWGxAy nqAJAhEQathLVvFT8FTAVr TrRsGGEhB9tfGQQkBE6KLT TdHVovjeQvYX4FVKAqgMCE FSN6FG1kWQutVNTxY7AqQ4 OfyfT2ZJYgofYDQcigTiyh lSiaw2NlfXCpEYUbVQuqnT QgNTEwMDIgXFxkYiBPVlIg ImA3Wgh8XLF4RgG9YPo9WU JWXrToCkSpVqJjGMj4PrFw MJf2JRp6QVmEBvV8Dwj5Jz g2WvKaAPS9TmTlBBt7MXOv XFxzcyAzIFxcZmwgXFxuY3 1ccGFyZFxzYjEwNVxlcGlj BFBcSXS4YC4YTc5nUS9kdZ XrAFXmnF6wBG4cX3yxeY4j ZFxwYXIgDQpccGFyZCANCl xwbGFpblxsdHJjaFxmczIy VXAwyHHGLFM3AA8cQSKJVe hqjPKlLGZumUxzTIfcjK5k HWHmAxEcNCGrD5ldDbWuJC 1JFDUyQHkenpSpBALaS2Zp taJfRNnoBFEtrd7dzSfhCU fwTeWcFEHdt3r4rABoIFJw BF83Z2ExfgJbZApcpRZotU NhbCByZWNvcmQgbnVtYmVy ZAYyPGGpgZ7uaBXtWQKhnJ 3cOZI6TwYqLZudORJfpVev u7ujUJIbp9KifQOiO45dx8 eneQNrt9AeMrC2EP1ch95s cJP3lLKalSKwVkUkJ22zuz DcaMSfh1XpsO0uIKHuGKIn IDAuOSBjbSBpbiBncmVhdG FatKYusY5rmcYjz34tHHjj qJPdQKQxMSCjlKLkdJJ5YZ JybC4geN13beEbkfGPPU4d iKQgYF1DNIRdGDfuwXrcNU NbYGWEYtjyLWPxLAvvg2Xr MFxlcGljWHNhMzAgDQpcY2 GuRPJzJiCuSHggQDAoT07p c0CNv0Ual0ugdGjvp1SqkA IvCM2erWUfDA4Ay2btVUQp eVQaRAT8MSvfm3gaYFujZB H6PXEjJdGzOFRxXP4PXcXd YDk3Rzm2JASwVHo5BOe7ZA 7GOvCuZZFsSRScUfI8QsUe ZCp5JMviFK0NONgfHGbjVc M7NFS2AVtzJcTcABDtEtEx XIPaAOVhBUbgoYJpEZ9dqP pjFOLcLYIoDUI9TAQakIUA e1PmIVFdYTwXZwTKQJV3AF lxpJApRI6KWGIekvYkLIqa uQxyjE5qrYJlN2fsTvOaMd xlcGljTmVzdERvYzEgDQpc bHRycGFyXGxpbjBccmluMF mwJxMyKDKoxZBIx1CcHAVA ClxmczIwXHBhciANClxzYj EnAJGdW7miBgOhJZmACFLf vTAjPJVhmiVpr2MjDNipdn BsYWJlbGVkIHdpdGggcGF0 wPTquIWmDU6qMXRzQCJfZ8 BqDWJwC71iJPQtqT9dGCTy CW5xXUQdSNT6GCbpcN9bmC FqSjzwoMW1TsVhr61sqHQ4 cyBvZiBhIHRhbiBzZXNzaW ocPNNluImpEG1dPJW5rpfy ZyAxLjMgeCAwLjkgeCAwLj atY43rMVIfJRFanBw2yAVv ASL2DY3ib18lhMD8gNGvjR QiDiLgJ33dyiOaUtDoXDyj MEMfxPqxAZgkSPkwx7XeIA eqUIDlFWWgVQK5eEJxj6Ik I9bvFS5bvYIaNZ27sOEleS sgl1ZseGz8hIIfESCjLWLb rTldp0E2CCUmrdMLSffpSN KgSEoUZLP0uQ1dACHlLBD2 XHBhciANCkMxOiBTbWFsbG MsTQOrVVvoIM48m4zcVEBn HNmVPlofVVNro3e7fMasiK 6uHNJtW0ZyVA2uYUYeenrt mIGcRHZ1iZ6hNPUuWHVhpp INFjroLUJaSHjUpV9hCUUp KljixvhgKPMALHlPR6METI lwTMRmWOviG3AdKIGstSIa SH7HBZXwqyJRWbhnGNDxJQ HofMCUr7NqUMCAIgyeFqLl ZnMyMiANClxlcGljTmVzdE IrAeZ7DUPomGFyXCU8VI1t bDihYHHyT2HqI9PnvoL7OA UeroYVVukcKAKsRO6VdE== MICROSCOPIC DESCRIPTION y8vuuGGePHJhaKSqQXVgTK (test code = 3371) ityaSvLJDmpAMeB1Rabjbw KNbyVV3rDV7uoUlvfPBhpW LyIUEhFuTtc7vhe100yXCm k8lwXXIHhbjkcLk3lTnoF4 3zx8O0CxreT06bgROrQTY2 AWFyHOAujGMwEMFtSHM8NX JcjZRgL8ijRUEnHL2cxjnd YMobZOkwZLLiyXE4OFSsvO WxL4FwTLWfHHbyZOVdfpg6 DoUtVh6ufCGizIhxQKpsQB JkXHBsYWluXGZzMjAgTWlj wt7kQ44hkNYrGYCbUCSutZ VudCBzdWJzdGFudGlhdGVz QOQyAPIqKh14SAXozQXzjw 4oaUFpLJgdDGM7 Gross assessment was [facility] performed at ([facility], = 2777) Department of Pathology, [address] [place] [address], Technical component was [facility] performed at ([facility], = 2778) Department of Pathology, [address] [place] [address], Professional component [facility] was performed at ([facility], code = 2779) Department of Pathology, [address] [place] [address], [facility] [id number] 13:49:30 Test Item Value Reference Range Interpretation Comments Case Report (test code Surgical Pathology = 104) Report Case: [id number] Authorizing Provider: Keo Heredia MD Collected: 12/25/2022 02:10 PM Ordering Location: [address] Received: 12/25/2022 04:33 PM Service Pathologist: Triston Armstrong MD Specimens: A) - Polyp, Colon - Transverse, polyp via hot snare B) - Polyp, Colon - Sigmoid, polyp via hot snare C) - Rectal, polyp via hot snare DIAGNOSIS (test code = [id number] 3220) FuZzEwMzNcZnRuYmpcdWMx IHtccnRmMVxlcGljMTAyMD OxVJ8brMgobJn7uGrrHLDx xrB6bUMhXKgcb9ytUTH1p4 jqvxfmXMWhSWkhJa1asBYs eGigZqWjUMGeGYg4dA15XM TxeN6hbLLzZOd6NAZduGLr elNsYtAyNELglRFgcFM6HQ LbUM8axjxiZBwiDUnbJRWf qtP0JKQdaLUzB1AkNNCvQE 4hpejlJOW5WRpzJNCmPVZ6 KtFqGLRlq4Kqsgc9QsXjlI FyZFxwbGFpblxmczIwIEEu QDFOPK3NLLSSWqSGM1ENSs EOXQWNU3kIRBMSYN1PXUyc cGFyXHRhYiAtVFVCVUxBUi YDSDQPV93EHQYqboqjRIGm Jl5uL57KA56iWLLSJ68VTS UnZIFKSVcZXXBGZ14MXpgt KUGroWNrPX7YSERBEACQQA UKRB0YSAByoBYvZOVsafCB SzQEJQMVGZ3aWAAUAMoRZJ UIU10KLlvnOPHnlJBdVC8W VLMCVN6TXYwXX7FWXKENMG 5PTUFccGFyfXtccnRmMVxz i2SqRLxxUKSiNE4mlUehJF QlMU4mUQMxW9zjtE5ofvp3 PlFeVFYnRyU0WESupyN0Yh l9KFXyQWsxu3ttg9XcZYNz YFc4wMqkVlXsNJSxv1buol BcZmNoYXJzZXQwIEFyaWFs X075m4njw3ksmyYgwAK6DE JzFKK7WXjwoiBxmzK6ZKca aESmHuQ5ETvnylIvCLnfvv HzjmAmMim6CMMhA550ZCW8 bLslz5kbBHI5WEGySTObYn WqMx4vnCIzC900GHKmWFTW AWAyjWt6AHKmatRzatYqlI IAv207E045g7gqAANkdeBd kGxAjthcy5dnA047QZXdsG VydzEyMjQwXHBhcGVyaDE1 GVZmTF1ypivdVRtlVAqpXI DqjjC2JTAlgEHlT8KwKDNt CK5yofgrRUV9IPufNEFbYU I9QoJcGQTtk2Cdepi9ShIb dw6otv83HNR2q5JfpQzpSM K1SLN9YsYcAy9zlNNeLMSf NE4nObJzdLLwARZskj82eI fvGUmhTYM4KGWolhIkz3Tl u7ejRrXmgpSlT3twQ3IoYY KxGXJaXLEiKqWzfdXtx4Yh c8IzrXJmaBx5s3uuJLFsXE CwbMwuh1jlHEX4GPKuoRXb U2cetE1kZIEsIK9ohrgfs1 dsWGosHDjtGNCttPK1ppQ3 XYJfiSOxD7FppR0xKXSwMM kdXFPtafu6FuEeFp7gdDSb eTcyMFxzYmtwYWdlXHBnbm NvbnRccGduZGVjXHBsYWlu XHBsYWluXGYwXGZzMjRccW xcbGFuZzEwMzNcaGljaFxm UFslJmJgNFLtVZemV3lqPy LbTxBiDxk5MIPlhGVjOQKu Fmo0QXMauNGaLJTTpQxvbT 9uIGZxdCykvM2nuQA8JTCi wlEvhLLHpA1rRVFIpS7jJa C8CHGtZje2EVR1LcWvjXTm fX0= COMMENT (test code = a4fkeHZdEEMvpFUkLQMaUL 3358) vyesJuIUFojAYeE7Ntnmow RGpjEV8tJZ0gsXdzeJWioG JuHEEpUdMme9rgk739gLRz a2ieQMCVdmyyvTs3qCnaY4 2zm2K8PzsjC11mgNQzQNX2 RUGaZRJngTFnPSUpRSN9FR YbgRVpP3kfDMXrPJ9gawxt JRxuRMtmBFGmbVJ3SWYanW QkC8WlZRAhALjuXRKevic9 VwAiXa8qcDBiqRqwMGfkTY WwKONkJTulMWLhMqAcUQ9r b8Vla3Z3VJJkzF6znUP1GY LiqtW8uVO3JMWcHIugYYE6 CPT Code(s) (test code v7paeJVoQWKwvAEgPEOhUB = 3356) lhtuPvELSeuCMiR4Ycvtxw HNthHZ1xDW4rqJhfiIQfgM AxJZNrYfUrv6ekf232bZEv y4auOLUUfmxxrWv5iSenZ9 5tv0B7KgghS20zgHNnDOD9 TKGlOAHwoMOhAEShMCS2JM AlySZoZ8kzNWEdAR6fhjfh PHwzJLznTDLmxTZ7XLEciU BkI9FyODRrYTnwNOOqqsp3 CqZgMt7atXXjzVpyAMogAP JkXHBsYWluXGZzMjAgODgz DIP4X8xxCWI4 GROSS DESCRIPTION (test j4mouFSnRJFvzATFZWTjYG code = [id number]) KoVL3xvPsjpMj9sSbaKLXh lnZ3qKCoIUhys7vmYXH2u0 szotHPEnpvBQAuCH4jMXxq FYTzEL5tEhSvAVRdQrQuSS BhcGVydzEyMjQwXHBhcGVy sHE0CSMcAN8siwvtRNvqBH ukKSRfowD1VEOwmVUhR2Sc IGGnQP5mudmzBXU3OJJDCl ewBj5hxSRegYdvNnIsOmRd YXJzZXQwXGZuaWwgQXJpYW k3yE2TJlelW55ux1M7Nwh3 QWLsFACeN0PpFQ3hDNZbhX AsB27HDebwRYB5UIUWMmya TsiuhKgdi8WbfLFyFMRfNV xcaWQgNTEwMDAgXFxkYiBP ZpUkWnF5Pic0MSN2ZfX5QE g9RMYWMTCzSCV6JWkwJrG5 XSw6AEJoFH7dVQaerTRaMQ stZjouUCdxW342MMxiAIKz W3TlV0OiJMylZzHvWOttMT FcIZQjDCiqPDOpR5KRYKCt VRB6Emn7HCDsTGk3LGvcD7 IWHWUeHNO9BQL4ZsOyOsF9 ATy5BFTFDl4uYnX2OUD3AT A4DMA6RWMwSHqfuNKjFOpk x8MbJgScMWGdYTqvsvX0UV CifcReFAbteEimmT9qVaHg KvNHKtFJy5t8bKkiO02wm3 0jQKMBblLer2NjmoIfGCLd edUZHlntRPGoSB8OCQRySL xsIPLgKeNsePCnM7roVEMm D43el2BZs3ShJA7FTLy3mq PemudmoA7vLBMvkzMiQSfm V5JyFLAnPqUbIyWqSJy2SC KpiD8iUr6hqKLueF9bhXXp WGdrCBF1hPUhFVZdzYyjbl BvnwRkQF2iPHKxCGIkM4Gy DVUsF94xLDQdlZ4jXWCeBJ 3dIEWol3m4oYyyA13is89d jRimAZTtWSt2CeCtJA7sxq Pko8IaComsuUN1BtWek34x hAK5hmHmTrOhJCXiajPgq0 H4CNFnj6Q5SLIqjiBmwSUp dCBtZWFzdXJpbmcgdXAgdG 4zFQ0nBNLaELnbFEycFVF0 BPZ4HBPyxIYtw5lrusbdu9 bjY9rcAAXgPNT4Ko1qxHSl XQSinxZ1o6IgEUfaHXLcHh hzTPAfGYizcHYyOJ0NBDNr QiZmABBsM2rqZXCvDZ0ATC IvYOcqwgAvNL4FRSIaqIAU DQJ0MJ7sPKgmHJTzL4WzM4 JsnaO0BZCstiBBLiliWwnu xGrjz1PwyNAkTFWqBMohmJ QgNTEwMDIgXFxkYiBPVlIg EdS5Coh7MJS1LfM4BZc4WJ WYQvGaPgCjWiIzXMn4LyBi LMg7BJm5OWcBAcB2Mce1Nw t4EvZoFDH5PyTuKWd3QFLy XFxzcyAzIFxcZmwgXFxuY3 1ccGFyZFxzYjEwNVxlcGlj DJTkSAN0WN7PYf4xZC1ktA BgTVRpvK0gWQ5qK9wwrW8k ZFxwYXIgDQpccGFyZCANCl xwbGFpblxsdHJjaFxmczIy TVMxxUYJIUH4QB6aRIIIFp ckuJFzZQNprNgpDXqvgM9t MHSqLdJrRGIvK2ghDfMfNX 9RVWVeWXragjZrMDPpS2Hz lsZmHLdrNGYdnl8rgZnqMD anJkIwVIRre7r6vJOkVSMm HJ90S1WqfbTqOGrcsDAhgT NhbCByZWNvcmQgbnVtYmVy BWUaUMIdhS4usLWqRFWocK 8gIAI8XfKdYOnlEWHxeKgs k6gvDXGed6YmhAKmT68hl0 bazFVmh2GvFdQ6RT1gp53k oSF4oCPpaBJxUwZqF49lfa VegEVcx3XxvL0xIMGtOXDq IDAuOSBjbSBpbiBncmVhdG GbnNYquQ2cuhZqo57cNYei sCJjOZYqWGQayUQxoPM9KB PyoC7uqR53ujLwylXHRP8q hFKnWH0YUIBqUYhdjJlnNP UnWEVBMshmYQMqFVzec4Wd MFxlcGljWHNhMzAgDQpcY2 VlRSLrAqFmRXpiIAOoC22d b0GAm4Tmv0elcTwyy7UrnW RsOU8dwRJqVA1Pd6xnTIVb jFEgKPQ3HUiqj7ehEVyaFY L7HLYfGdApDZIfXX7MKlWk HCb9Zzi1ZTDmOVo2PIq3OL 3WDwLhYGZdLRZsQaH2GnWj VLa4VYpcGQ1ZPHcaSGspYu U6FSV6ZYwmOuCqEEGeZlZv KRNnATOfZLuajPRsNE0bnX jySOIdVSMpLNY8YWVsiHHZ b8JcJRAeLIwJFvNREEL5MY nteSAyVC3DHVHxajPyNMmk gVuyvK1sbFNdU1ifCmEoNy xlcGljTmVzdERvYzEgDQpc bHRycGFyXGxpbjBccmluMF oiVfOwRWBpgNFNc7LzRTNE ClxmczIwXHBhciANClxzYj OtYUIkA4viHyFdXWlLQQQd yOWnSVHakqVti3MqCSzolr BsYWJlbGVkIHdpdGggcGF0 oFGydPArGF7dQBClKLFbH9 LmDCQnA03bKKYdtD5sSFEt WD2rTCQwHNB4NHncmD3lgI AlSgldzRY8YgQni03sxJG0 cyBvZiBhIHRhbiBzZXNzaW jjHENgfWtmHX9wNUI9kccp ZyAxLjMgeCAwLjkgeCAwLj hdZ41fYSVfUQJhcCb1lYOn STR1QU7vk14buUM1oCCjzP OfOeLoK35odkZbEdAiCLwd LIDlcFexBIklAGrfh4VnTR gzERFyFAWaDQJ1gGPnm9Hk V5icNX0wqRRsAJ39gCOoaD wor6KhgAj9gEGoSIUbPRGt mDzwk2N8RQKfpaWASinrEL LlMSkWQQN5cW0kTGNyWPQ9 XHBhciANCkMxOiBTbWFsbG CbNDWlEDpdMO18n5oaIPDo WFcNYdbiTMUuh6z6qCspbW 8fJVKdH2LoQV0rRWWlpffa hQPwJOA0nK4lHKGfNLAgvm EQNygmFHTkLUeHfS1lZGYu JubblbvhUSSSJQhOX7FXOX wdFAAeMVhuT7FaGLSzrBFs UN3HMHVgmhWWRgnbCXQhKH LtiDMYr9UoGHIHLfljYbJd ZnMyMiANClxlcGljTmVzdE HnQjX3LTCjtLBcMOM0CF1d zNzkHPDxP3IpY7VykzY5FW GoffGVAjxpXVNnKQ0EmU== MICROSCOPIC DESCRIPTION p0ewmTUsFPJdoXOeMQFwPP (test code = 3371) byvhTuRXZwdITcN9Dkidzo JHhcYY4hER6nmIeydCKvcQ PpWOJaHmIed8bkt789sWMj p0mzWAKBcrhltVh0kQsrH0 1eh4C1ZfvlL16yoLXuPGC1 RIDqJKMkkGIqYQCxAMY9DM NdbLUmE9nyMRPpLW5ipjsy NLckZJogHVZcuRV5KXLrpJ BgQ1JgCOCyDQbhYFMbcvv8 SaObAt9bwAMujJihPQioOO JkXHBsYWluXGZzMjAgTWlj vy8jR02pdZUlOLAaQNBjbK VudCBzdWJzdGFudGlhdGVz NBYjSWIjZx85UMBijYRail 5isLVrMQucULA7 Gross assessment was [facility] performed at ([facility], = 2777) Department of Pathology, [address] [place] [address], Technical component was [facility] performed at ([facility], = 2778) Department of Pathology, [address] [place], [place] [id number], Professional component [facility] was performed at ([facility], code = 2779) Department of Pathology, [address] [place] [address], [facility] [id number] 13:49:30 Test Item Value Reference Range Interpretation Comments Case Report (test code Surgical Pathology = 104) Report Case: [id number] Authorizing Provider: Keo Heredia MD Collected: 12/25/2022 02:10 PM Ordering Location: [address] Received: 12/25/2022 04:33 PM Service Pathologist: Triston Armstrong MD Specimens: A) - Polyp, Colon - Transverse, polyp via hot snare B) - Polyp, Colon - Sigmoid, polyp via hot snare C) - Rectal, polyp via hot snare DIAGNOSIS (test code = [id number]) FuZzEwMzNcZnRuYmpcdWMx IHtccnRmMVxlcGljMTAyMD TnRR5nzTyglZc7xGnuCECr knJ4hUPnFPqsf7gvZVJ8x5 tboybfGLVzZNhoUt0huYMm fFntKfXeTJAzYXh2rG88OU PbqB2bpXCmJNh0EGZpeGUf ybDbByXrDMBimGVxuWK0QS PxJM5dirrwZHikORjpYUUb pfC8WBNkrXFeB0CeMYVsWE 5jaxnaNBU1XErdEGUwFZB5 SgCjJGSfb3Mabqn2JlNndN FyZFxwbGFpblxmczIwIEEu RKBVTY6VCDGBPgAJT4UPNv HCFHKJO0pLKGEUTO7SIBwl cGFyXHRhYiAtVFVCVUxBUi IWMBMMY43GHXShisllKQTh Zl7rM72RX00hZOIMN37OKF BcVONGMBxKWRIXK18XAvhp PMTceVSnNS2SRBOJCTMQCX VQWT0CMQBfsKWvVNBetcLR CoJBOVSKGG5uNTUQYQzLDP NNW24UAaulOWAbpQLuJQ7V BXAGST8PSHvPM8UOEMUGDB 5PTUFccGFyfXtccnRmMVxz z4FyHXhnZEFdDZ0koGxbUF EaOV5iSLIgO4kcoH3aomv6 GlEeLZUyNaF4WHBywgM5Aa p2WWPxQLigg8wru5HpWSFb ESw1qYynSvGqWEAsm1rjvl BcZmNoYXJzZXQwIEFyaWFs D641f0jqb2wgwmMonQA2YU AoESX2TXiwktMfnpN5TFpq iAQtZzM3YJifcvDlROvnlm ZoabLqKes7YRXuZ203TOA4 gDqcv2bfERU9DVCdQIZkWh YlWk7nmQDuI415HBLhPCNA TIGhoWn8BPBnilSdkcDxqE DFm099J382q5qtEZXkwmYx lZsFnrkdg3xkG457DZWqlS VydzEyMjQwXHBhcGVyaDE1 UIAlBR6bhvfiRVcjTEmvIB MvyaL6IRFddUOyR2TgZRGo BI4ghfbfYWR9DNmyEMXjEQ T6MtJcKTOpl0Yjpzw6ZkNh tc3mtg93PLF6i6ZpcVdsDG Q9VQB1AuByMa9fbHJbRFZa SP9lNfQesQOrDMSifh00oP ybQWpcIBC0LTGckcYnw7Nl d3xvHmKgkpTwQ6jwG9UeLJ YtCOKdGVVmAzHalbHvc6Ew x9LesGLgxOk9o1drZPOeMM SysCxvh8lnBPO6XFBpuSCq R6apyH5iTTByYR1rmswgm0 khSDncAJepCCCdgXG9uaO0 ATBarRXaM9QdeW1nWLSlPB jdXSRiwwo8RaGdUn4mwUFm eTcyMFxzYmtwYWdlXHBnbm NvbnRccGduZGVjXHBsYWlu XHBsYWluXGYwXGZzMjRccW xcbGFuZzEwMzNcaGljaFxm YRncEuJcCZWzFHkrN9tmDu HfRjGxEau6LSOndKSiOSTs Ntw3ZQPnqFShIEWTtHnnwU 5qZZWbvPsazR3ktAK8ZCXa pdKqpETGoY6cXWZPlN3gIk W1PNRsNdp9BQC1EkIipHGh fX0= COMMENT (test code = m6cijIHzOSPzgKCgHQIpHL 3359) bewdRxTVEsgCUmR9Eyotua CZunNY5bOP3mvPgfsFCgkD EhBCFnWaCrw2zgi199fDBd n7ogVQCRblukyRk9tNrpZ9 9kc2V1HcmrY52vmHPzPMK8 ZMBtAACgoXLvSUGzSPR6FT YcbXQbU2cyXLZtBN6ooqrf GPhfCXmwZVFalNN5FGTsjW UdO1HmWUZcKVeiTWFrvjy9 GtIqUp6xwAYvuRhdUJjtXD CaYGLiDBfvJRXiBlHmNC5a r6Ufk6L9BAFsmA0qjGU8WY RxtzU5sXU7YYLxSFhjBGG8 CPT Code(s) (test code x7bztSDjFZYqxIUdOTJeVS = 3357) hvuuOmPDBrbVWbG8Nsknrv AXkgKI9iLR0tyEhiyKKkzA RpDSFnGjYzc9qtx350hIFr q5hkDEEOljirjFu2dHmjW3 8ad8U7ZayzG23lhWYbIHV1 KMMwCPGboNCtRKDoTUL6YO TzmBYqS1olQHZkZN6nyryo WSyeAUxyOCUlgVL6YTHcuV KfJ3PiIDOxVQogWGFpbsi0 KiFiWu8svUXiaUkrBCxjOR JkXHBsYWluXGZzMjAgODgz NIZ9N8okXVG3 GROSS DESCRIPTION (test d5rpwTLlGUGeyPGNLXFuRK code = [id number]) SxSJ6hgCevvWt3uDghGOIj yaN5zEEfXIowi6fdHGZ2c7 ujxhUCNfgmNNMdUK1tXEqa NQEzXE4bJwIlUNJbTiXdPQ BhcGVydzEyMjQwXHBhcGVy fER3DJRfRE9giqhkRDflYD boRXFsgyF7VBOslXBdF3Cr ORJuFS3jieleLSY0RWFNDi geXe4lgIVybUvgBfUhBkAr YXJzZXQwXGZuaWwgQXJpYW i5cS8HXjhyU84li8V2Sas2 QSYsJGTwA8LnLH9eWWDbkO WfV37TVtiiLIH3JDWDBtbe XkkcfXlzo3OoyTUxICOwOM xcaWQgNTEwMDAgXFxkYiBP WxUdQiR0Jfo9DSA5EjY3QG o0HXGUKQYsMNV5CLfwDeX5 AQe3BEWkFC9eMXllsYXuSA reTxmbNIrbM036QSpaYOEz F5OwV4BzQCjbAaLqYLjyHL RhRUBqECjpYXFiY7UOXNBc ALW9Buq8SGMzHAw6JNrhL1 YORQObYAB1UGF1IxQgDgK4 GWc7LWVBVi0iOaG1TKV9EO E7UIB3OMKpAVwmvNMeYRgh f0TwNoTqVSKaIEhtsbL6EV KwuaIrCYqbcLtolQ8rUaYb SvVKRnRUh3q7uFfgX88or3 3tJNWBvwJcl0BtkhPoCLHe qxMZHqyiXZEsQD3XWFPlTB roVABjEbBgxYAjZ3jaXRUp N00iz8TXc0YtVF6NGVb5el RsvsrqlA9nLWWqslJwHGvr B2MkQSDkZdVcJvRaHSu0JI AfnS8fIe4aqCBexC3ppAJw TKovPXT3nFYmUWCgzLifte LqrjNtNJ0iWTBjRSLsK7Zf FXZhK69iDWGhaW9dUZEdVK 2qKXAxt2c8lCyvC50tx21v bDwwFWNeSUm6OwJeKT5yhm Gkz8StHtbupPX3LvDcq43m sEM9woQnTnRuHQRrdwNwy6 U2ZOMvq6B2HMQyvcJtoJJz dCBtZWFzdXJpbmcgdXAgdG 4aIF6bAQTySBepVJxcCLA2 BFR5ZOGbzKBpk1sljiufy5 haO6wdACMdEUY3Cm3tlDWf CRKlelH6c4MmFLuaDXPqKi pqTMSqLGptlKUcGH8QIJQh UfYvGYWkZ0rbLINaPY1NBV GrXBwloxSmXR7LBAEymASU KZK2EP8nWWloPGVrT3JvC5 MhtlT9HUHukvPSEwliMdha tFtem1TphELyCOSkVTrosO QgNTEwMDIgXFxkYiBPVlIg XsC5Ahz8QAD4MsS5TKb8DY EINmJqYdRoBcWpYNf4DdFp XNe8GFe3KIzWPzW8Atk8Kf m7XxKrQSA7HjFkTHf2ORMu XFxzcyAzIFxcZmwgXFxuY3 1ccGFyZFxzYjEwNVxlcGlj WVIkJJW5MD1LPc5pLC6jrM JdHAAqlY2jIL8pJ3hzjP7j ZFxwYXIgDQpccGFyZCANCl xwbGFpblxsdHJjaFxmczIy EPCzfWZYEWI8NI3uYKMSKy wubXTtXUOelIcsSOfusJ3u ZZOnAqFaHWAfE7qjJhWnRY 7WHEFwNKeqfkNvSURhF2Sy wpIsLFzxGEEgxi8jjDiqHK tgKcCpXYRkj3q2iRPlHMNs OS62M4VfqgHyEUnfwWLsqY NhbCByZWNvcmQgbnVtYmVy OAPoJNBihR8yvFBpDBSmcE 5wYHY4YsLbKQumBOZmrObn b8rgBGAam9HhdTAzS41ua3 sxyBBbf5IhAxO0HK2hh67q tUP8uIUwhSByDoZxB84aaa SetJYcm6GmhZ3cRQIzVDZf IDAuOSBjbSBpbiBncmVhdG ZohFAzrA4rrtMqb82aMXxu qBMtVOMxYLWpwLXkwUY2IL BryK2poE97hfDmazMXYR5x qIYaIA1NQDLuBWgwaJysCX AhVMQTDoljIUDiBVsqf7Hj MFxlcGljWHNhMzAgDQpcY2 TxWKMaPmMuCDksFUVqQ40k o4HYb2Qti3vwpJyne8FdpT RtXI9afITePN1Dm5wwAXWd zFXsGNZ5PRvqs2rgLMkoHH I6JILoBbKwXHKgHL9OQyVp HYh8Jcu7WOIiBIe1QIb4AY 6LOaVcTEJwJMCzXmM8NvNn AZa8DWnnFP5ICKtjBEkpHw P8VUR1QLoeZnQqMXHuZfAg JKUuOMCpPVczmCVbQN9fsB sgICHjRAPbDHQ8OGXewIRB g8HaTXCyYIlCHsHVDIN9KC tjtENwVG6MAYYbpgPxFAko rImopD2otSCyR3koWmZzQg xlcGljTmVzdERvYzEgDQpc bHRycGFyXGxpbjBccmluMF dzPaGePXYoyTBFf2NkVUQX ClxmczIwXHBhciANClxzYj JzFGMpO3jwErXhBVjCKTQl lKHaKBEiojZvo2VtSJkwct BsYWJlbGVkIHdpdGggcGF0 uZDyjDJiBP1wLXDqTXIdM9 JlUGJdZ08dNWMwxR3cWMCy UE6vXUVjSBP4AJioiD8ooO TvHazadVX2CsOxe44dpQP9 cyBvZiBhIHRhbiBzZXNzaW plBQTdoRuyUY7vGWZ6vfiq ZyAxLjMgeCAwLjkgeCAwLj vgI72zVBMnKUDkkJa4hQKb HXG6QG2kq71kvJQ3cPOquH YjWeRcX07yccUnDhMiJLac ODKtiOckCPcbHZrcp6ObXX czTJGiZYWeOUG7tZNnz8Yi O2nvPG3mqMTgWL79rRVheW xpn9MhoIe1uLTvLRSkROYs gZcxk1F8FHJghwYUXuviXS AcCXxXTJG6nN5fWIGtKDG9 XHBhciANCkMxOiBTbWFsbG RnQUUeZAlzBS94z7faFLWn HOeAUnzxNYUwk9f1wOtfdE 7bVYPgV9IxJL9yIODfyupg sUMkKKG1bQ5kPBGwNQSzmj SPFzzhMAPhWPuNvN1fCHYg LevlrgmwKVGPYOoPI6KNWV cqTPAgFPxbF7PlFCWgpNLh HY0OTRGmlaKGJtfjVKNaQA YdfBWNr9TfMTSJUaeqClLe ZnMyMiANClxlcGljTmVzdE JdLnR3WXJdyRKuGRA6KW5f kNlbOFRkE3MhL1FibrM6HA RluzNLLpstYDNlZZ8GvD== MICROSCOPIC DESCRIPTION s7pbuCArIMWfeYMoTAJjJN (test code = 3371) wpnrBaMHNfsRHhM4Eprfsz STuvSU2bIS4iqOafzQZhkD QzQCNrZmHkr3tml386vXWl e7xuOOZVcesakWk0kIndO7 1xy9D7WvzgU69qaREjDIZ1 YTYbCEFshERdIEVfYBY8AC UahDHiM2kfVJHqVN3kjctu QGbaQCgmZDLuwCE7QEOwmP GqQ1HjUAHkQTkyWGCgpmg0 QkKnVs6isYZqnBbbANmnIB JkXHBsYWluXGZzMjAgTWlj rq9dJ45yeOBzSOTaUGTpjV VudCBzdWJzdGFudGlhdGVz XUNjDWHiXx80PJOmjYBaad 3raOFbCPfiARC1 Gross assessment was [facility] performed at ([facility], = 2777) Department of Pathology, [address] [place] [address] 93173, Technical component was [facility] performed at ([facility], = 2778) Department of Pathology, [address] [place] [address] 91478, Professional component [facility] was performed at ([facility], code = 2779) Department of Pathology, [address] [place] [address] 88695, [facility] HospitalTissue [id number] 13:49:30 Test Item Value Reference Range Interpretation Comments Case Report (test code Surgical Pathology = 104) Report Case: [id number] Authorizing Provider: Keo Heredia MD Collected: 12/25/2022 02:10 PM Ordering Location: [address] Received: 12/25/2022 04:33 PM Service Pathologist: Triston Armstrong MD Specimens: A) - Polyp, Colon - Transverse, polyp via hot snare B) - Polyp, Colon - Sigmoid, polyp via hot snare C) - Rectal, polyp via hot snare DIAGNOSIS (test code = [id number] 3220) FuZzEwMzNcZnRuYmpcdWMx IHtccnRmMVxlcGljMTAyMD EpUK4ngTyzaKp3wQedMAJw xeV1nHBuLSnpu6tbAZC6a4 ccdfebIZJeOAdsIk4pkXRg yPbrAeKnMDJbSFo1bZ27RB WsmL8ynIFeTFh7RQCseDWf nvQhWrElOTZnkDAprMD2QF ZsKA8orrenUXmzCRhnMIDj dcC1NNLruDCpV1SjHXIhLB 7dmxugOYP8VQrhKDEfRVJ0 MdReWVBfp6Wuqzw5NmOmsQ FyZFxwbGFpblxmczIwIEEu BDUQIU2VCOPAToMZT4WNUd DIMMPTT8tFNFRTXU8GHSih cGFyXHRhYiAtVFVCVUxBUi FFPCWTZ16UOLAdugdpZTSo Pm3rC96RB67wKAAUB04MUM QaOUVFUTqARQLFU48YInmb BYPnzCBoMW1IXYXCTUMGYR JUWE1OPPOguYTbLLRlzsXW FyVPJISAHL3oKABTGMhJYG FKA88KEkbaBENvbVXkCP5J DGUKPF0OGXqSD6IZDFXMLP 5PTUFccGFyfXtccnRmMVxz q5PfHHyyOMSpUT7mcKusOX VgFN0yOJMnH4nffC3umsp4 XnSkZZJjQkB7UELxtvP3Im c3WGNmKCwxt4cyt2BpUCAc EMg0yDxuKhFsASIwh5rzsz BcZmNoYXJzZXQwIEFyaWFs J504h8rwr4ynicVziPV5QP ZjNII1SXqcooNwnqP6YLoq qQWwBzE3QXekblUkTWjykx YluqLwApe9RENmY167FIG7 cDuwj6ajMKB1KHGyOTJhDn HnTs0mtGZnB553HLUvGQCL ZJDyqNv2CVQjdxKqpbVftO STj759F996h0zjKJFrmrBo bEsJnyhtb1kiH307ZZTykB VydzEyMjQwXHBhcGVyaDE1 IAPlQY6qqgpyYKscUZchKW SwdzI8TPBodDUpE6XxZPAg AA8wrndrTTO6FWzhRJUsSU C0ZoWfCTWlz0Yunez1WlXr qw9bkk60KWJ4o4JpwIqwMS A5DQO4QeDeUk9keTWhNHEz JT1iTiCqbCPdCSKrjb87yP usHUngQSH9TDVksnWtt8Vn t7mkAbQdcaXaK2iwB5RwHN PgKPHuNRTqIlDozwYfz7No c6UajODwwCn3d8cnFOZbOL BkdDfcq1yfDKE3MFKqzGJs I7auiY2nXEYqCD6fmbtcu1 laXGgbVDmoKUQvyPM1drR1 UVIplFMiK3CicY9sCPPiSZ xySRWzqfd3GqToHw0yiJJe eTcyMFxzYmtwYWdlXHBnbm NvbnRccGduZGVjXHBsYWlu XHBsYWluXGYwXGZzMjRccW xcbGFuZzEwMzNcaGljaFxm ZZbtIxRuWXUcLLypO1ngEx SrKlUnZio1AMNhvSJwDJGz Rum2GMQstUDdREQNlWuzkT 4wSJMgxLricY6jsEA8LPBj ebTgrLXAjK2xIWRAoR9xAj M5ZTYiBzy4HEG4KlDtcQBv fX0= COMMENT (test code = s0pihQMjWQQzdPBnFEIfXL 3359) nucmVzBNHsrMOyZ8Leiqnw ANpxKK0oTR6aoXxebJMjsT YwLFHlCcDzm6jvk557eVNj n5xsIJWMrhlywOu1tFfkI7 5jt0D1DdyvZ95bnWPkEDW2 DPBiJACynFMbEWXsSRC7FV FmoCTpT6gnNWSsIZ6qbmtc PRrlIPdqEXQbdGF0FXSuoY WxS4LuGSVjIFmuCFVtpgh9 WvAgYe8tsWPzxEtwYAlbTG StCVHaSMhkQSBwWsSaNI5w r8Mgf9X8XROppG4esRM3LY EyiyE9eFU6YLSnCLwjHGC7 CPT Code(s) (test code j7uctCOrDITozBClHAIaVK = 3357) mvowRbVZWzpJOqR5Iwakoh YHxrWG2vQT6weBcirVBhjU NhENCoOsSlr4ucr640pODp l2hnIOOAufzuxCl9bSemN5 9pf4X3ObzqG20scLRmNAO1 NUDsXNVgaMBtTIMxFXV7ZA JbtBOtF9ytMUYdRV0osxns CGskAFzwFEYnyPT8XJQnhI VfI9BcQOOzGUqhIPRiwrq5 CiRfWe4twXQwpUhlNKspRF JkXHBsYWluXGZzMjAgODgz JNJ2W4klEVJ4 GROSS DESCRIPTION (test k7pphWKeLUIdaMDDHFBkWR code = [id number]) JfIG2dqKpqrUd6wSovLMGp cgS0eZHfVLcsj3cwWDC4a7 horoEDXitdGPHuEE5bKKmu ANLcTZ5fFiFqAQCiLrXwBI BhcGVydzEyMjQwXHBhcGVy iKP5PPUiWX1vtbjlUZqvOB ohAYUtkdN7IMGnwJYiC2Bs CAOmPC3yanxoMSI9CTRDDl ggEa0gxFPhkGzuLfGaLxFi YXJzZXQwXGZuaWwgQXJpYW w0nO5BEphqI57mw2F2Bky7 CCBvFVXwS5KeBE6nIOKphR HbH92OSqmdGOY6RVNOKmix BlskyWaoi4AfsDQmVXIgCK xcaWQgNTEwMDAgXFxkYiBP LkJfCnW5Mwb8AAN3MuY8BS f0EZEIVUQwUKB2JNixLzA3 ZAt1CUQuGO1oRLxirCCyKS pjQsjjFMdeX535XVrmEBVl O5NkP3PhTTysFrMfWYuvXX UbNWDnGLgbELCkC8TTABIz SVG8Hny1FAOwYDo4YLwfG8 WWVWDnKSC5LUA3YeBnHzH8 XHr0MASBIe8pSiQ0TBQ0NA A6QVI2EJZyFAtdjGNeUPae c8OtDpXaLBZhSSurxsD3LF PjefQiMIpdpEyolI2oFkWr EmIIHqCKp8f6nBklD18rc0 7sUPANtnAde8UifiNfYKFy yzRYJvljYJDnYP4MPFQdAS ktDVPcGjPgwGGcE6taNANh H50xq8BRe6QsIH4TBZe4db FfogctvV2tZSFlulFlCZdd L8VwQGSuOdHqBrMoDUx8NH ZflT3yDv2jtWKlyW3pgJVv IIdtSYM7ySRpGIUvjYnnjo YozzVfQG2dYCZiVSKeY8Lg ZDWsD81tXTPgbI9rUNMtBF 8cWIYbm8x6dOdwC74pb34g uEmbCNFeMSr9KxNxZJ3nzx Ciq5ArAfxiuCS4RqRth38o yOI8uiMuRkDfGPZmzqBqc4 T8OVVjn8L7RIOymrNlcXTz dCBtZWFzdXJpbmcgdXAgdG 1qVO9fLJGfYBfqDQrqNEX3 QPW8NVQnwVYcv9csoexna3 yvM3imQJAdWNN9Zo5maVJu ZWZrynE4l0MaBZwwWPDxGb ssRXIcYGbsmHMlAA7VXAWf KtJnZBSnH2nnUWPcEV4SLO XxUHdaaiJlVR2WKNBlzTMP PCF8SX7gTGboQCRjC2ByK6 MsbfM7CGNzbuGFCfxjBmmn wSgza3VjxIFwDEQtMWovqZ QgNTEwMDIgXFxkYiBPVlIg QfX9Clw0YQD0ZrG5PVc0DU DQNnOxSdDkLlSsXMq3UuWf ERg0PPz1OTzZJyO9Jif2Wx c1XmTtHNC4DlTbGXs4BUJo XFxzcyAzIFxcZmwgXFxuY3 1ccGFyZFxzYjEwNVxlcGlj BUTaOUI1NA5HFk7rNJ8rkA WzEBCtvJ7qLO9vD3zoxV7w ZFxwYXIgDQpccGFyZCANCl xwbGFpblxsdHJjaFxmczIy PAYgtIZTIUC1RM6gEMSBVi dehHHgWZHfyCjzVDlkwS3u HOXyRjQeCQLnB2ktJzMhZR 0FDEAxLQfmaaOoLXNuE7Rr tzSdXEooYREobo8sjKgdCW dqHkKyIDBzd2x0aMTkAPNs SA03H0IictCaCFjgcCCdvA NhbCByZWNvcmQgbnVtYmVy ZGTtFZMmbF8sqIZiCIPibB 8bRBF5QlPzTBhvOLPztCjy a6dtBZUmp0YglDMpE66ja7 nklJCyl5CfVkN9CY6sa34x uUZ7jXVdoJJwGkUcB87zkx RzfEIcb9BteP9sLRFnJNFv IDAuOSBjbSBpbiBncmVhdG AaaGBxoT4wceUwm29iEMvt dVWfSNCkKSExoAQhgVC3MZ PzpK4htG78pbHdlkCGDP1d sLQrKA3YPQFbPCahfGegZD CfGNUUApagLAVdLWfpo0Ds MFxlcGljWHNhMzAgDQpcY2 VsRVUbXlYiFMzjIKPaG63s i7TOa0Cjj6nqdXaoj2CovK NeIW7wcXCzKZ6Vn2pgLWQa hJHzSJX1IPlsk9peHRrgHU T5NGZdUtPyBCAxKP0GJjHo XCs0Igk7SAUaSHj9FXr9PZ 5XKqCdYDGfTFXeTrM6GoVw HBn1EKkwPJ2OGTjoCPhqAd X3IMZ7MWxgFkOrGQJwJrIe ZLLzAETzXTvtlFIcCH3gfF dxHKYrUTYcWAK4YUKhqOJF r3SpSAFpTKnGDkGGTFJ8NA ybiLUbDD1QNXNseqCiOZyc lIydyU0xsJNzI3duThBsGd xlcGljTmVzdERvYzEgDQpc bHRycGFyXGxpbjBccmluMF yqEeGoBGPrhEVGl8CzOUWU ClxmczIwXHBhciANClxzYj PhHKTmA7dqRuWrAYkVXNUe zUYoJCWgcnCyi9AmQDhygm BsYWJlbGVkIHdpdGggcGF0 wHYymRAhIW8cPSSgWRFtY9 HzVZBzU73lZWRwaK3mNHQy CA4lLGMeLOJ9IDrukH7jaR PlWkijzVL5GzHel13osSM5 cyBvZiBhIHRhbiBzZXNzaW qvPNRlwAslDI6aOHJ3eqjn ZyAxLjMgeCAwLjkgeCAwLj qyP63wPZTqCXBorLm8hUYh MRE7JT6dd66cwSI5lPVqkL ChSuWwK83jlzMmMtBhOPme YDUjkQncYFcvDSxow3FbJS eySICtRNWmFZD4sFNsw8Nz H9snMC6arIKdHX93iXAznN bwj9AfdLr2dUBmSTCgXFUg lRflr8Q6WKYtnnBRKdlbLV AfIEyDUTB8tH6aFREfRWL4 XHBhciANCkMxOiBTbWFsbG HtWRIwWPlsVZ82n6cyYTOg FTaGEeaySQLha0z6bOzthE 6wLZDhS9LtBK1hJSKobeom xXCiUWX4sG8mRKLeQGVyly LGPtsxYARtXKaCrG3rXRBv XkoyyvfyKTPYYHuBU7KOYQ rkIINqXGkcJ2NaCJKzbJCm OF9JCWFzxlUDPzpdJYEwZX KnvAOCu1BjRNGAXxegKgUk ZnMyMiANClxlcGljTmVzdE XvDtJ6IGMehKKeLZH0TH4a vIbbKUQwT7NdH6JqoiK6FD PfgiYZAqhrCKXkDD1VkC== MICROSCOPIC DESCRIPTION v8ecvYVsNVTfdDVgHPDhEO (test code = 3371) ucwtEoZOSdsELjV2Uzench XZviKK4oXT3clXjezGHasH OmLWWhXxVei8fvl884xINa l2jfMJYXwbfdiPx1nJzbT8 0cw1W5LxvcL51geSUaYAI6 TAKvWDPbiVItLQDyWNT2MZ TrpRCdV9deQZBiZO9mtwwj UEltYAcgJFWxbED9CXXkmT AlU5FqPWAmFUqbXFQfdji5 VjUqMa7vcFCncMqzDJscTU JkXHBsYWluXGZzMjAgTWlj gd8aE41ibHZkMANoAGRsyP VudCBzdWJzdGFudGlhdGVz FAKcNPQhDq97ZHPucDGgls 9ofBGtZEsoFQU0 Gross assessment was [facility] performed at ([facility], = 2777) Department of Pathology, [address] [place] [address] 19984, Technical component was [facility] performed at ([facility], = 2778) Department of Pathology, [address] [place] [address] 90407, Professional component [facility] was performed at ([facility], code = 2779) Department of Pathology, [address] [place] [address] 68846, [facility] HospitalTISSUE [id number] 13:49:30Surgical Pathology Report Case: [id number] Authorizing Provider: Keo Heredia MD Collected: 12/25/2022 02:10 PM Ordering Location: [address] Received: 12/25/2022 04:33 PM Service Pathologist: Triston Armstrong MD Specimens: A) - Polyp, Colon - Transverse, polyp via hot snare B) - Polyp, Colon - Sigmoid, polyp via hot snare C) - Rectal, polyp via hot snare A. COLON, TRANSVERSE, POLYPECTOMY: - TUBULAR ADENOMAB. COLON, SIGMOID, POLYPECTOMY: -TUBULAR ADENOMAC. RECTUM, POLYPECTOMY: -TUBULOVILLOUS ADENOMA Signing Pathologist Direct Phone Line: [phone] signed by Triston Armstrong MD on 12/28/2022 at 1:49 PMEndoscopy report was reviewed. [id number]. Polyp, Colon - TransverseReceivedin formalin labeled with patient's name, medical record [...] polyp biopsy" consists of a loo sessile polypmeasuring 1.3 x 0.9 x 0.9 cm, and multiple loo soft tissue fragments. The polyp is inked green and the specimen is entirely submitted as follows:Section code:C1: Smaller fragmentsC2: 1 polyp, inked green, serial sectioned LAYLA Bowling (ASCP) Microscopic assessment substantiates the above diagnosis. [facility], Department of Pathology, [address] [place] [address] 53784, [facility], [facility] of [facility]ology, [address] [place] [address] 23268, [facility], [facility] of [facility]ology, [address] [place] [address] 20885, [employer] MET[employer]OLIC [id number] 04:54:17 Test Item Value Reference Range Interpretation [...] not appl icable for dialysis patien ts Roll Grinder Operator ID - [id number] 04:54:17 Test Item Value Reference Range Interpretation Comments MAGNESIUM (BEAKER) (test code = 1.8 mg/dL 1.6-2.6 627) Roll Grinder Operator ID - MARCOCBC W/PLT COUNT & AUTO [id number] 04:36:31 Test Item Value Reference Range Interpretation [...] 0.00-1.00 PERCENT (BEAKER) (test code = 2801) ECG 12 [id number] 07:54:05Ventricular Rate 86 BPMAtrial Rate 83 BPMQRS Duration 100 msQ-T Interval 362 msQTC Calculation(Bazett) 433 msR [place] 25 degreesT [place] 48 degrees Atrial fibrillation with premature ventricular or aberrantly conducted complexesNonspecific T wave abnormalityAbnormal ECGNo previous ECGs availableConfirmed by Altaf Rouse ([id number]) on 12/27/2022 7:54:04 AM [facility] HospitalTSH/FREE T4 IF [id number] 01:46:24 Test Item Value Reference Range Interpretation Comments THYROID STIMULATING HORMONE 1.450 uIU/mL 0.350-4.940 (BEAKER) (test code = 772) Roll Grinder Operator ID - BSHIGH SENSITIVITY TROPONIN [id number] 01:25:31 Test Item Value Reference Range Interpretation Comments HIGH SENSITIVITY TROPONIN I (test 62 pg/ml <=35 H code = 3159479) Roll Grinder Operator ID - BSThe LOOM OVERHAULER STAT High Sensitivity Troponin-I results should be used in conjunctionwith other diagnostic information such as ECG, clinical observations and information, and patient symptoms to aid in the diagnosis of ID.BASIC METABOLIC [id number] 01:20:36 Test Item Value Reference Range Interpretation [...] not appl icable for dialysis patien ts Roll Grinder Operator ID - [id number] 01:20:36 Test Item Value Reference Range Interpretation Comments MAGNESIUM (BEAKER) (test code = 1.9 mg/dL 1.6-2.6 627) Roll Grinder Operator ID - BSCBC W/PLT COUNT & AUTO [id number] 00:30:47 Test Item Value Reference Range Interpretation [...] (test code = 2801) HIGH SENSITIVITY TROPONIN [id number] 14:26:01 Test Item Value Reference Range Interpretation Comments HIGH SENSITIVITY TROPONIN I (test 84 pg/ml <=35 H code = 2806199) Roll Grinder Operator ID - BSThe LOOM OVERHAULER STAT High Sensitivity Troponin-I results should be used in conjunctionwith other diagnostic information such as ECG, clinical observations and information, and patient symptoms to aid in the diagnosis of ID.BASIC METABOLIC [id number] 03:40:20 Test Item Value Reference Range Interpretation [...] not appl icable for dialysis patien ts Roll Grinder Operator ID - [id number] 03:40:20 Test Item Value Reference Range Interpretation Comments MAGNESIUM (BEAKER) (test code = 2.0 mg/dL 1.6-2.6 627) Roll Grinder Operator ID - BSCBC W/PLT COUNT & AUTO [id number] 02:36:41 Test Item Value Reference Range Interpretation [...] H PERCENT (BEAKER) (test code = 2801) [id number] 05:25:43 Test Item Value Reference Range Interpretation Comments MAGNESIUM (BEAKER) (test code = 2.1 mg/dL 1.6-2.6 627) Roll Grinder Operator ID - MMBASIC METABOLIC [id number] 05:25:42 Test Item Value Reference Range Interpretation [...] not appl icable for dialysis patien ts Roll Grinder Operator ID - MMCBC W/PLT COUNT & AUTO [id number] 05:11:30 Test Item Value Reference Range Interpretation [...] PERCENT (BEAKER) (test code = 2801) POC-Glucose [id number] 12:12:31 Test Item Value Reference Range Interpretation Comments POC-Glucose Meter (test 114 mg/dL 70-110 H : TE STED AT [facility] code = 1538) [address] [place] [address], [facility] 30: Roll Grinder Operator/Techni jordyn ID = [id number] for Tyree Bernal ie Lab Interpretation (test Abnormal code = 43989-5) [facility]-Glucose [id number] 12:12:31 Test Item Value Reference Range Interpretation Comments POC-Glucose Meter (test 114 mg/dL 70-110 H : TE STED AT [facility] code = 1538) [address] [place] [address], [facility] 30: Roll Grinder Operator/Techni jordyn ID = [id number] for Tyree Bernal ie Lab Interpretation (test Abnormal code = 77791-2) [facility]-Glucose [id number] 12:12:31 Test Item Value Reference Range Interpretation Comments POC-Glucose Meter (test 114 mg/dL 70-110 H : TE STED AT [facility] code = 1538) [address] [place] [address], [facility] 30: Roll Grinder Operator/Techni jordyn ID = [id number] for Tyree Bernal ie Lab Interpretation (test Abnormal code = 46859-9) [facility]-Glucose [id number] 12:12:31 Test Item Value Reference Range Interpretation Comments POC-Glucose Meter (test 114 mg/dL 70-110 H : TE STED AT [facility] code = 1538) [address] [facility], 770 30: Roll Grinder Operator/Techni jordyn ID = [id number] for Tyree Bernal ie Lab Interpretation (test Abnormal code = 24466-7) [facility]-Glucose [id number] 12:12:31 Test Item Value Reference Range Interpretation Comments POC-Glucose Meter (test 114 mg/dL 70-110 H : TE STED AT [facility] code = 1538) [address] [facility], 770 30: Roll Grinder Operator/Techni jordyn ID = [id number] for Gabe Tyree ie Lab Interpretation (test Abnormal code = 95749-0) [facility]-Glucose [id number] 12:12:31 Test Item Value Reference Range Interpretation Comments POC-Glucose Meter (test 114 mg/dL 70-110 H : TE STED AT [facility] code = 1538) [address] [facility], 770 30: Roll Grinder Operator/Techni jordyn ID = [id number] for Tyree Bernal ie Lab Interpretation (test Abnormal code = 73398-9) [facility]-GLUCOSE [id number] 12:12:31 Test Item Value Reference Range Interpretation Comments POC-GLUCOSE METER 114 mg/dL 70-110 H : TESTED A T [facility] 6720 (BEAKER) (test code = [facility] Olga [facility], 1538) [address]: Roll Grinder Operator/Techni jordyn ID = [id number] for Jorgito barriosTameka floresssie BASIC METABOLIC [id number] 04:44:44 Test Item Value Reference Range Interpretation [...] not appl icable for dialysis patien ts Roll Grinder Operator ID - [id number] 04:44:44 Test Item Value Reference Range Interpretation Comments MAGNESIUM (BEAKER) (test code = 2.1 mg/dL 1.6-2.6 627) Roll Grinder Operator ID - MMCBC W/PLT COUNT & AUTO [id number] 04:17:52 Test Item Value Reference Range Interpretation [...] PERCENT (BEAKER) (test code = 2801) U/S, [id number] 15:17:00Laterality?->LeftReason for exam:->Known left plefLabs to be Ordered:->CytologyLabs to be Ordered:- >Glucose+LDH+ProteinLabs to be Ordered:->Body Fluid Culture (w/Gram Stain, C\\T\\S)Labs to be Ordered:->Cell CountLabs to be Ordered:->Fungal Culture [facility] : 1955 Sex: MFINAL REPORT Ultrasound of the chest CLINICAL HISTORY: Evaluate pleural effusionfor thoracentesis. DISCUSSION: Sonographic evaluation of the left chest was performed to evaluate for possible thoracentesis. Only a trace amount of left-sided pleural effusion is identified. IMPRESSION:Minimal left-sided pleural effusion, insufficient for safe thoracentesis. Signed: Ede Richards Verified Date/Time: 12/23/2022 15:17:37 Reading Location: [address] Ultrasound Reading Room [facility] [id number] 15:17:00FINAL REPORT Ultrasound of the chest CLINICAL HISTORY: Evaluate pleural effusion for thoracentesis. DISCUSSION: Sonographic evaluation of the left chest was performed to evaluate for possible thoracentesis. Only a trace amount of left- sided pleural effusion is identified. IMPRESSION:Minimal left-sided pleural effusion, insufficient for safe thoracentesis. Signed: Ede Richards Verified Date/Time: 12/23/2022 15:17:37 Reading Location: [address] [facility]trasound [facility] [id number] 08:42:27 Test Item Value Reference Range Interpretation [...] not appl icable for dialysis patien ts [id number] 08:36:30 Test Item Value Reference Range Interpretation Comments MAGNESIUM (BEAKER) 2.1 mg/dL 1.6-2.6 Specimen slightly (test code = 627) hemolyzed CBC W/PLT COUNT & AUTO [id number] 04:56:56 Test Item Value Reference Range Interpretation [...] = 2801) PET/CT, SKULL BASE TO MID-THIGH [id number] 19:39:00Reason for Exam:->To rule out mesothelioma [facility] : 1955 Sex: MFINAL REPORT EXAMINATION: FDG-PET/CT, 12/19/2022 3:40 AM CLINICAL HISTORY: 67-year-old male, rule out mesothelioma. COMPARISON: No recent study available for comparison. TECHNIQUE:Radiopharmaceutical: F-18 FluorodeoxyglucoseAdministered activity: 12.0 mCiRoute of administration: Intr avenously via the left antecubital veinLocalization time: 105 minutesScan extent: Skull base to the proximal thighsAdditional imaging: NoneSerum blood glucose: 138 mg/dlCPT Code: 70270 FINDINGS:Head and Neck: No suspicious FDG avid [...] left-sided exudative pleural effusion. Signed: Ted Guillen [facility] Verified Date/Time: 12/22/2022 19:39:47 RACTIVE MEDIA DIRECTOR.E.T./CT skull base to mid-thigh [id number] 19:39:00FINAL REPORT EXAMINATION: FDG-PET/CT, 12/19/2022 3:40 AM CLINICAL HISTORY: 67-year-old male, rule out mesothelioma. COMPARISON: No recent study available for comparison. TECHNIQUE:Radiopharmaceutical: F-18 FluorodeoxyglucoseAdministered activity: 12.0 mCiRoute of administration: Int ravenously via the left antecubital veinLocalization time: 105 minutesScan extent: Skull base to theproximal thighsAdditional imaging: NoneSerum blood glucose: 138 mg/dlCPT Code: 50703 FINDINGS:Head and Neck: No suspicious FDG avid [...] Signed: Ted Guillen Verified Date/Time: 12/22/2022 19:39:47 [facility] [id number] 14:04:02 Test Item Value Reference Range Interpretation Comments POC-GLUCOSE METER 138 mg/dL 70-110 H : TESTED A T [facility] 6720 (BEAKER) (test code = KENNA Espinoza [facility], 1538) [address]: Roll Grinder Operator/Techni jordyn ID = [id number] for Nyla Perla MRSA [id number] 09:59:55 Test Item Value Reference Range Interpretation Comments Result (test code = 6463-4) No [facility] [id number] 09:59:55 Test Item Value Reference Range Interpretation Comments Result (test code = 6463-4) No [facility] [id number] 09:59:55 Test Item Value Reference Range Interpretation Comments Result (test code = 6463-4) No [facility] [id number] 09:59:55 Test Item Value Reference Range Interpretation Comments Result (test code = 6463-4) No MRSA isolated [facility] [id number] 09:59:55 Test Item Value Reference Range Interpretation Comments Result (test code = 6463-4) No [facility] [id number] 09:59:55 Test Item Value Reference Range Interpretation Comments Result (test code = 6463-4) No MRSA isolated [facility] [id number] 09:59:55 Test Item Value Reference Range Interpretation Comments CULTURE (BEAKER) (test code No MRSA isolated = 1095) [id number] 04:05:59 Test Item Value Reference Range Interpretation Comments MAGNESIUM (BEAKER) (test code = 2.1 mg/dL 1.6-2.6 627) Roll Grinder Operator ID - OSCAR WBASIC METABOLIC [id number] 04:05:58 Test Item Value Reference Range Interpretation [...] not appl icable for dialysis patien ts Roll Grinder Operator ID - OSCAR WCBC W/PLT COUNT & AUTO [id number] 03:46:41 Test Item Value Reference Range Interpretation [...] 2D Echo W/Doppler(CW/PW/Color)2022-12-21 16:31:48Ejection FractionSLEH ECHO [facility] W/Doppler(CW/PW/Color)2022-12-21 16:31:48Ejection FractionSLEH ECHO [facility] Echo W/Doppler(CW/PW/Color) 2022-12-21 16:31:48Ejection FractionSLEH ECHO [facility] Echo W/Doppler(CW/PW/Color)2022-12-21 16:31:48Ejection FractionSLEH ECHO [facility] W/Doppler(CW/PW/Color)2022-12-21 16:31:48Ejection FractionSLE [facility]CHO [facility] W/Doppler(CW/PW/Color) 2022-12-21 16:31:48Ejection FractionSLE ECHO [facility]LAB [facility] ManchesterPROTHROMBIN TIME/[id number] 14:53:12 Test Item Value Reference Range Interpretation Comments PROTIME (BEAKER) (test code = 13.8 seconds 11.9-14.2 759) INR (BEAKER) (test code = 370) 1.12 <=5.90 RECOMMENDED COUMADIN/WARFARIN INR THERAPY RANGESSTANDARD DOSE: 2.0 - 3.0 Includes: PROPHYLAXIS for venous thrombosis, systemic embolization; TREATMENT for venous thrombosis and/or pulmonary embolus.HIGH RISK: Target INR is 2.5-3.5 for patients with mechanical heart valves.[id number] 13:28:03 Test Item Value Reference Range Interpretation Comments MAGNESIUM (BEAKER) (test code = 2.0 mg/dL 1.6-2.6 627) Roll Grinder Operator ID - JSBASIC METABOLIC [id number] 13:28:02 Test Item Value Reference Range Interpretation [...] eGF R is based on the CKD-EPI 1 equation that d oes not use a race coefficientEsti mated GFR is not as accur ate as Creatinine Mariann hiro in predicting glom erular filtration rate . Estimated GFR is not appl icable for dialysis patien ts Roll Grinder Operator ID - JSCBC W/PLT COUNT & AUTO [id number] 08:50:17 Test Item Value Reference Range Interpretation [...] (BEAKER) (test code = 2801) VANCOMYCIN LEVEL, [id number] 11:00:53 Test Item Value Reference Range Interpretation Comments VANCOMYCIN TROUGH (BEAKER) (test 15.2 ug/mL 10.0-20.0 code = 522) Roll Grinder Operator ID - EDRAD, CHEST, 1 VIEW, NON [id number] 13:55:00Reason for exam:- >evaluate reported loculated pleural effusion, leftShould this be performed at the bedside?->Yes [facility] : 1955 Sex: MFINAL [...] [place] Verified Date/Time: 12/19/2022 13:55:56 Reading Location: [facility] [facility] Ortho Consult Reading Room XR chest 1 view portable / [id number] 13:55:00FINAL REPORT EXAMINATION: RAD, CHEST, 1 VIEW, NON DEPT. INDICATION: [id number] with left loculated pleural effusion. COMPARISON: None. FINDINGS:The cardiac silhouette is normal in size. The thoracic vasculature is within normal limits. Mild bibasilar atelectasis. Small left p leural effusion. No pneumothorax. No acute osseous abnormality. Visualized soft tissues are unremarkable. IMPRESSION:Small left pleural effusion. Signed: Rubia Lipscomb Verified Date/Time: 12/19/2022 13:55:56 Reading Location: [address] Ortho Consult Reading [facility] [id number] 07:27:48 Test Item Value Reference Range Interpretation Comments OSMOLALITY, SERUM (BEAKER) (test 282 mOsm/kg 275-295 code = 615) BASIC METABOLIC [id number] 07:16:16 Test Item Value Reference Range Interpretation [...] not appl icable for dialysis patien ts Roll Grinder Operator ID - [id number] 07:16:16 Test Item Value Reference Range Interpretation Comments MAGNESIUM (BEAKER) (test code = 1.9 mg/dL 1.6-2.6 627) Roll Grinder Operator ID - [id number] 07:16:16 Test Item Value Reference Range Interpretation Comments PHOSPHORUS (BEAKER) (test code = 4.2 mg/dL 2.3-4.7 604) 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
[2023-07-25 09:07] LABS: Absolute Lymphocytes (CBC) 0.7 K/uL (0.7-4.9); Hematocrit 41.6 % (39.6-49.0); Lymphocytes % 7.3 % (15.3-44.8); MCV 88.7 fL (80-100); MPV 8.1 fL (7.6-11.3); Platelets 233 thou/uL (152-406); RBC Red Blood Cell Count 4.69 M/uL (4.33-5.43)
[2023-07-25 09:08] LABS: Protime INR 1.85
--- NOTE | 2023-07-25 09:09 | ER ---
Nurse's Notes [facility] Name: Randolph Mckeon Age: 68 yrs Sex: Male : 1955 Arrival Date: 07/25/2023 Time: 08:18 Bed 7 Private MD: Diagnosis: COPD/ Chronic obstructive pulmonary disease with (acute) exacerbation;Dyspnea;Insomnia due to medical condition;Tobacco abuse counseling;Tobacco use;Hypokalemia Presentation: 07/25 08:31 Chief complaint: Patient states: Hx of COPD with SOB, SOB worse since yesterday and pt aa5 also reports cough. 08:31 Coronavirus screen: cough unrelated to allergies, shortness of breath. Ebola Screen: aa5 Patient denies travel to an Ebola-affected area in the 21 days before illness onset. Initial Sepsis Screen: Does the patient meet any 2 criteria? HR > 90 bpm. Does the patient have a suspected source of infection? No. Patient's initial sepsis screen is negative. Risk Assessment: Do you want to hurt yourself or someone else? Patient reports no desire to harm self or others. Onset of symptoms was July 24, 2023. 08:31 Acuity: YANNICK 3 aa5 08:31 Method Of Arrival: Wheelchair aa5 Triage Assessment: 08:40 Respiratory: Reports shortness of breath. rs5 08:40 General: Appears in no apparent distress. uncomfortable, Behavior is calm, cooperative. rs5 Respiratory: Onset: The symptoms/episode began/occurred yesterday, the patient has mild shortness of breath. Historical: - Allergies: 08:44 No Known Allergies; aa5 - PMHx: 08:44 Atrial fibrillation; CHF; COPD; Hypertension; Pneumonia; aa5 - PSHx: 08:44 cyst removal on lower left limb; aa5 - Immunization history:: Adult Immunizations unknown. - Social history:: Smoking status: Patient reports the use of cigarette tobacco products, smokes one-half pack cigarettes per day. Screenin:35 [facility] ED Fall Risk Assessment (Adult) History of falling in the last 3 months, rs5 including since admission No falls in past 3 months (0 pts) Confusion or Disorientation No (0 pts) Intoxicated or Sedated No (0 pts) Impaired Gait No (0 pts) Mobility Assist Device Used Yes (1 pt) Altered Elimination No (0 pt) Score/Fall Risk Level 0 - 2 = Low Risk Oriented to surroundings, Maintained a safe environment. Abuse screen: Denies threats or abuse. Nutritional screening: No deficits noted. Tuberculosis screening: No symptoms or risk factors identified. Assessment: 08:35 General: Appears in no apparent distress. uncomfortable, Behavior is calm, cooperative. rs5 Pain: Denies pain. Neuro: Level of Consciousness is awake, alert, obeys commands, Oriented to person, place, time, situation. Cardiovascular: Denies chest pain, Heart tones S1 S2 present Rhythm is regular. Respiratory: Airway is patent Respiratory effort is even, unlabored, Breath sounds with wheezes bilaterally. Parent/caregiver reports the patient having shortness of breath at rest cough that is non-productive. 08:35 GI: Abdomen is round non-distended, Bowel sounds present X 4 quads. Abd is soft and non rs5 tender X 4 quads. : No signs and/or symptoms were reported regarding the genitourinary system. EENT: No signs and/or symptoms were reported regarding the EENT system. Derm: Skin is intact, Skin is pink, warm \T\ dry. Musculoskeletal: Range of motion: intact in all extremities. 09:50 Reassessment: Patient and/or family updated on plan of care and expected duration. Pain rs5 level reassessed. Patient is alert, oriented x 3, equal unlabored respirations, skin warm/dry/pink. Patient states feeling better. Patient states symptoms have improved. 10:44 Reassessment: No changes from previously documented assessment. rs5 Vital Signs: 08:31 BP 107 / 67; Pulse 96; Resp 20 S; Temp 97.7(O); Pulse Ox 99% on R/A; Weight 99.79 kg aa5 (R); Height 5 ft. 11 in. (R); 08:40 BP 115 / 65; Pulse 98; Resp 18; Temp 98.3; Pulse Ox 98% on R/A; rs5 09:20 BP 112 / 66; Pulse 91; Resp 19; Pulse Ox 98% on R/A; rs5 10:42 BP 114 / 69; Pulse 92; Resp 19; Pulse Ox 98% on R/A; rs5 08:31 Body Mass Index 30.68 (99.79 kg, 180.34 cm) aa5 ED Course: 08:19 Patient arrived in ED. rg4 08:21 Eligio Amador MD is Attending Physician. kamar 08:31 Arm band placed on Patient placed in an exam room, on a stretcher. aa5 08:34 Kenneth Miller RN is Primary Nurse. rs5 08:35 Patient has correct armband on for positive identification. Bed in low position. Call rs5 light in reach. Side rails up X2. 08:40 Inserted saline lock: 20 gauge in right forearm, using aseptic technique. rs5 08:42 XRAY Chest (1 view) In Process Unspecified. EDMS 08:46 Triage completed. aa5 09:08 Demetri Rizo MD is Hospitalizing Provider. kamar 09:20 Inserted saline lock: 22 gauge in left forearm, using aseptic technique. rs5 09:56 Juanita Giron MD is Hospitalizing Provider. kamar 10:52 No provider procedures requiring assistance completed. Patient admitted, IV remains in rs5 place. Administered Medications: 09:30 Drug: NS 0.9% IV 500 ml IV at bolus once Route: IV; Rate: bolus; Site: right rs5 antecubital; 09:45 Follow up: Response: No adverse reaction rs5 09:30 Drug: NS 0.9% IV 1000 ml IV at 125 ml/hr continuous Route: IV; Rate: 125 ml/hr; Site: rs5 right antecubital; 09:45 Follow up: Response: No adverse reaction rs5 09:30 Drug: MethylPrednisoLONE IVP 125 mg IVP once Route: IVP; Site: right antecubital; rs5 09:45 Follow up: Response: No adverse reaction rs5 09:30 Drug: Levalbuterol Inhalation 3.75 mg Inhalation once Route: Inhalation; rs5 09:45 Follow up: Response: No adverse reaction rs5 09:30 Drug: Ipratropium Inhalation Aerosol 0.5 mg Inhalation once Route: Inhalation; rs5 09:45 Follow up: Response: No adverse reaction rs5 09:30 Drug: Magnesium Sulfate IVPB 2 grams IVPB once over 2 hrs Route: IVPB; Infused Over: 2 rs5 hrs; Site: right antecubital; 09:45 Follow up: Response: No adverse reaction rs5 09:30 Drug: Famotidine IVP 20 mg IVP once; dilute with 10 mL 0.9% NaCl; give over 2 minutes rs5 Route: IVP; Site: right antecubital; 09:45 Follow up: Response: No adverse reaction rs5 09:30 Drug: predniSONE PO 60 mg PO once Route: PO; rs5 10:05 Follow up: Response: No adverse reaction rs5 09:45 Drug: Rocephin IV 1 grams IV at per protocol once; Given slow IV push per pharmacy rs5 instructions Route: IV; Rate: per protocol; Site: left forearm; 10:05 Follow up: Response: No adverse reaction rs5 09:45 Drug: AZITHromycin PO 500 mg PO once Route: PO; rs5 10:15 Follow up: Response: No adverse reaction rs5 10:25 Drug: Potassium PO Effervescent Tablet 50 mEq PO once; dissolve in 4 ounces of water or rs5 juice Route: PO; 10:55 Follow up: Response: No adverse reaction rs5 10:25 Drug: NS 0.9% with KCl IV 20 mEq/L 1000 ml IV at 100 ml/hr continuous Route: IV; Rate: rs5 100 ml/hr; Site: left forearm; 10:45 Follow up: Response: No adverse reaction rs5 Medication: 10:44 VIS not applicable for this client. rs5 Outcome: 09:09 Decision to Hospitalize by Provider. kamar 10:52 Admitted to ER Hold. Please see [facility] for further documentation. rs5 10:52 Condition: stable 10:52 Instructed on the need for admit, Demonstrated understanding of instructions, 16:10 Patient left the ED. mb9 Signatures: Dispatcher [employer] Eligio Menjivar MD MD cha Calderon, Audri RN RN [id number] Ruby [id number] Nidhi Amaya RN RN mb9 Kenneth Miller RN RN rs5 Corrections: (The following items were deleted from the chart) 10:44 08:35 Respiratory: Airway is patent Respiratory effort is even, unlabored, Breath rs5 sounds with wheezes bilaterally. rs5
--- NOTE | 2023-07-25 09:09 | EDPHYS ---
Physician Documentation [facility] Name: Randolph Mckeon Age: 68 yrs Sex: Male : 1955 Arrival Date: 07/25/2023 Time: 08:18 Bed 7 Private MD: ED Physician Eligio Amador HPI: 07/25 09:03 This 68 yrs old Male presents to ER via Wheelchair with complaints of kamar Breathing Difficulty. 09:03 The patient has shortness of breath at rest, with light activity. Onset: The kamar symptoms/episode began/occurred 3 day(s) ago. Duration: The symptoms are continuous, and are steadily getting worse. The patient's shortness of breath has no apparent modifying factors. Associated signs and symptoms: Pertinent positives: non-productive cough. Severity of symptoms: At their worst the symptoms were mild moderate in the emergency department the symptoms are unchanged. The patient has experienced similar episodes in the past, multiple times. Historical: - Allergies: 08:44 No Known Allergies; aa5 - PMHx: 08:44 Atrial fibrillation; CHF; COPD; Hypertension; Pneumonia; aa5 - PSHx: 08:44 cyst removal on lower left limb; aa5 - Immunization history:: Adult Immunizations unknown. - Social history:: Smoking status: Patient reports the use of cigarette tobacco products, smokes one-half pack cigarettes per day. ROS: 09:04 Constitutional: Negative for fever, chills, and weight loss, Eyes: Negative for injury, kamar pain, redness, and discharge, ENT: Negative for injury, pain, and discharge, Neck: Negative for injury, pain, and swelling, Cardiovascular: Negative for chest pain, palpitations, and edema, Abdomen/GI: Negative for abdominal pain, nausea, vomiting, diarrhea, and constipation, Back: Negative for injury and pain, : Negative for injury, bleeding, discharge, and swelling, MS/Extremity: Negative for injury and deformity, Skin: Negative for injury, rash, and discoloration, Neuro: Negative for headache, weakness, numbness, tingling, and seizure, Psych: Negative for depression, anxiety, suicide ideation, homicidal ideation, and hallucinations, Allergy/Immunology: Negative for hives, rash, and allergies, Endocrine: Negative for neck swelling, polydipsia, polyuria, polyphagia, and marked weight changes, Hematologic/Lymphatic: Negative for swollen nodes, abnormal bleeding, and unusual bruising, 09:04 Cardiovascular: Positive for palpitations, 09:04 Respiratory: Positive for cough, "sounds productive", dyspnea on exertion, wheezing, inspiratory, expiratory, 09:04 MS/extremity: Negative for acute changes, Exam: 09:04 Constitutional: This is a well developed, well nourished patient who is awake, alert, kamar and in no acute distress. Head/Face: Normocephalic, atraumatic. Eyes: Pupils equal round and reactive to light, extra-ocular motions intact. Lids and lashes normal. Conjunctiva and sclera are non-icteric and not injected. Cornea within normal limits. Periorbital areas with no swelling, redness, or edema. ENT: Nares patent. No nasal discharge, no septal abnormalities noted. Tympanic membranes are normal and external auditory canals are clear. Oropharynx with no redness, swelling, or masses, exudates, or evidence of obstruction, uvula midline. Mucous membranes moist. Neck: Trachea midline, no thyromegaly or masses palpated, and no cervical lymphadenopathy. Supple, full range of motion without nuchal rigidity, or vertebral point tenderness. No Meningismus. Chest/axilla: Normal chest wall appearance and motion. Nontender with no deformity. No lesions are appreciated. Cardiovascular: Regular rate and rhythm with a normal S1 and S2. No gallops, murmurs, or rubs. Normal PMI, no JVD. No pulse deficits. Abdomen/GI: Soft, non-tender, with normal bowel sounds. No distension or tympany. No guarding or rebound. No evidence of tenderness throughout. Back: No spinal tenderness. No costovertebral tenderness. Full range of motion. Male : Normal genitalia with no discharge or lesions. Skin: Warm, dry with normal turgor. Normal color with no rashes, no lesions, and no evidence of cellulitis. MS/ Extremity: Pulses equal, no cyanosis. Neurovascular intact. Full, normal range of motion. Neuro: Awake and alert, GCS 15, oriented to person, place, time, and situation. Cranial nerves II-XII grossly intact. Motor strength 5/5 in all extremities. Sensory grossly intact. Cerebellar exam normal. Normal gait. Psych: Awake, alert, with orientation to person, place and time. Behavior, mood, and affect are within normal limits. 09:04 Respiratory: moderate respiratory distress is noted, Respirations: no acute changes, labored breathing, that is moderate, Breath sounds: bronchial sounds, rhonchi, + upper airway congestion. wheezing: inspiratory expiratory Respiratory rate: 22 Vital Signs: 08:31 BP 107 / 67; Pulse 96; Resp 20 S; Temp 97.7(O); Pulse Ox 99% on R/A; Weight 99.79 kg aa5 (R); Height 5 ft. 11 in. (R); 08:40 BP 115 / 65; Pulse 98; Resp 18; Temp 98.3; Pulse Ox 98% on R/A; rs5 09:20 BP 112 / 66; Pulse 91; Resp 19; Pulse Ox 98% on R/A; rs5 10:42 BP 114 / 69; Pulse 92; Resp 19; Pulse Ox 98% on R/A; rs5 08:31 Body Mass Index 30.68 (99.79 kg, 180.34 cm) aa5 MDM: 08:21 Patient medically screened. kamar 09:04 Differential diagnosis: Bronchitis CHF exacerbation, reactive airway, CHF, URI, kamar pneumonia, Pneumothorax pulmonary edema, Pulmonary Embolism reactive airway disease, Unstable Angina. Antibiotic administration: Rocephin and Zithromax given. Differential Diagnosis: Obstructed Airway Bronchitis Influenza Upper Respiratory Infection Sinusitis Asthma Exacerbation Viral Syndrome Pneumonia. Immunization status: Pneumococcal vaccine: within last 5 years. Influenza vaccine: within last 5 years. Data reviewed: vital signs, nurses notes, lab test result(s), EKG, radiologic studies, plain films. Consideration of Admission/Observation Patient was admitted/placed on observation. Escalation of care including admission/observation considered. I considered the following discharge prescriptions or medication management in the emergency department Medications were administered in the Emergency Department. See MAR. Independent interpretation of the following test(s) in the Emergency Department EKG: See my EKG interpretation above. Test considered but Not performed: CT: no ct chest ro pe. Historians other than the Patient: pt well informed. Care significantly affected by the following chronic conditions: Hypertension, Chronic Obstructive Pulmonary Disease, Obesity, a fib , pna. Counseling: I had a detailed discussion with the patient and/or guardian regarding the historical points, exam findings, and any diagnostic results supporting the discharge/admit diagnosis, lab results, radiology results, the need for further work-up and treatment in the hospital. 07/25 08:22 Order name: Basic Metabolic Panel; Complete Time: 09:48 [facility] 07/25 08:22 Order name: CBC with Diff [facility] 07/25 08:22 Order name: LFT's; Complete Time: 09:48 [facility] 07/25 08:22 Order name: Magnesium; Complete Time: 09:48 [facility] 07/25 08:22 Order name: NT PRO-BNP; Complete Time: 09:48 [facility] 07/25 08:22 Order name: PT-INR; Complete Time: 09:27 [facility] 07/25 08:22 Order name: Troponin HS; Complete Time: 09:48 [facility] 07/25 08:47 Order name: Blood Culture Adult (2) [facility] 07/25 08:47 Order name: Lactate w/ 2H reflex if indic.; Complete Time: 09:48 [facility] 07/25 08:47 Order name: SARS RAPID; Complete Time: 09:29 [facility] 07/25 08:48 Order name: Flu; Complete Time: 09:29 [facility] 07/25 10:55 Order name: CBC Smear Scan [facility] 07/25 12:16 Order name: Lactate Sepsis 2 HR Follow-up [facility] 07/25 08:22 Order name: XRAY Chest (1 view) [facility] 07/25 08:22 Order name: EKG; Complete Time: 08:22 [facility] 07/25 09:14 Order name: CONS Physician Consult [facility] 07/25 08:22 Order name: Cardiac monitoring; Complete Time: 08:44 [facility] 07/25 08:22 Order name: EKG - Nurse/Tech; Complete Time: 08:55 [facility] 07/25 08:22 Order name: IV Saline Lock; Complete Time: 08:44 [facility] 07/25 08:22 Order name: Labs collected and sent; Complete Time: 08:44 [facility] 07/25 08:22 Order name: O2 Per Protocol; Complete Time: 08:44 [facility] 07/25 08:22 Order name: O2 Sat Monitoring; Complete Time: 08:44 [facility] Administered Medications: 09:30 Drug: NS 0.9% IV 500 ml IV at bolus once Route: IV; Rate: bolus; Site: right rs5 antecubital; 09:45 Follow up: Response: No adverse reaction rs5 09:30 Drug: NS 0.9% IV 1000 ml IV at 125 ml/hr continuous Route: IV; Rate: 125 ml/hr; Site: rs5 right antecubital; 09:45 Follow up: Response: No adverse reaction rs5 09:30 Drug: MethylPrednisoLONE IVP 125 mg IVP once Route: IVP; Site: right antecubital; rs5 09:45 Follow up: Response: No adverse reaction rs5 09:30 Drug: Levalbuterol Inhalation 3.75 mg Inhalation once Route: Inhalation; rs5 09:45 Follow up: Response: No adverse reaction rs5 09:30 Drug: Ipratropium Inhalation Aerosol 0.5 mg Inhalation once Route: Inhalation; rs5 09:45 Follow up: Response: No adverse reaction rs5 09:30 Drug: Magnesium Sulfate IVPB 2 grams IVPB once over 2 hrs Route: IVPB; Infused Over: 2 rs5 hrs; Site: right antecubital; :45 Follow up: Response: No adverse reaction rs5 09:30 Drug: Famotidine IVP 20 mg IVP once; dilute with 10 mL 0.9% NaCl; give over 2 minutes rs5 Route: IVP; Site: right antecubital; 09:45 Follow up: Response: No adverse reaction rs5 09:30 Drug: predniSONE PO 60 mg PO once Route: PO; rs5 10:05 Follow up: Response: No adverse reaction rs5 09:45 Drug: Rocephin IV 1 grams IV at per protocol once; Given slow IV push per pharmacy rs5 instructions Route: IV; Rate: per protocol; Site: left forearm; 10:05 Follow up: Response: No adverse reaction rs5 09:45 Drug: AZITHromycin PO 500 mg PO once Route: PO; rs5 10:15 Follow up: Response: No adverse reaction rs5 10:25 Drug: Potassium PO Effervescent Tablet 50 mEq PO once; dissolve in 4 ounces of water or rs5 juice Route: PO; 10:55 Follow up: Response: No adverse reaction rs5 10:25 Drug: NS 0.9% with KCl IV 20 mEq/L 1000 ml IV at 100 ml/hr continuous Route: IV; Rate: rs5 100 ml/hr; Site: left forearm; 10:45 Follow up: Response: No adverse reaction rs5 Disposition Summary: 07/25/23 09:09 Hospitalization Ordered Notes: Hospitalization Status: Inpatient Admission kamar Location: Telemetry/[facility] (Inpatient) kamar Condition: Stable kamar Problem: new kamar Symptoms: have improved kamar Bed/Room Type: Standard kamar Provider: Juanita Giron(07/25/23 09:57) kamar Room Assignment: 202(07/25/23 14:56) Diagnosis - COPD/ Chronic obstructive pulmonary disease with (acute) exacerbation kamar - Dyspnea kamar - Insomnia due to medical condition kamar - Tobacco abuse counseling kamar - Tobacco use kamar - Hypokalemia kamar Forms: - Medication Reconciliation Form kamar - SBAR form kamar - Leadership Thank You Letter kamar Signatures: Dispatcher [employer] Sally Aleman RN RN dw Anderson, Corey, MD MD cha Calderon, Audri, RN RN aa5 Kenneth Miller RN RN rs5 Corrections: (The following items were deleted from the chart) 09:57 09:09 Demetri Rizo cha [facility] 14:56 09:09 kamar [place]
[2023-07-25] MEDS ORDERED: METHYLPREDNISOLONE 125 MG INJ ONE ×2 (09:12→15:08)
[2023-07-25] MEDS ORDERED: predniSONE 20 MG TAB ONE (09:12)
[2023-07-25] MEDS ORDERED: IPRATROPIUM BROM 0.5MG/2.5ML ONE (09:13)
[2023-07-25] MEDS ORDERED: LEVALBUTEROL 1.25 MG/3 ML NEB ONE (09:13)
[2023-07-25] MEDS ORDERED: FAMOTIDINE 20 MG/2 ML VIAL IV ONE (09:13)
[2023-07-25] MEDS ORDERED: NA CHLORIDE 0.9% 500 ML ONE (09:13)
[2023-07-25] MEDS ORDERED: NA CHLORIDE 0.9% 1,000 ML ONE (09:14)
[2023-07-25] MEDS ORDERED: Magnesium Sulfate 2gm IVPB 2 G/50 ML BAG IV ONE (09:14)
[2023-07-25 09:27] LABS: SARS-CoV-2 Antigen Rapid Res Negative (Negative)
[2023-07-25 09:37] LABS: Albumin 3.8 g/dL (3.4-5.0); Bilirubin Direct 0.1 mg/dL (0-0.2); Bilirubin Indirect, Calculated 0.5 mg/dL (0.2-0.8); Bilirubin Total 0.6 mg/dL (0.2-1.0); Magnesium 1.8 mg/dL (1.6-2.4); Potassium 2.8 mEq/L (3.5-5.1); Protein, Total 7.3 g/dL (6.4-8.2); Troponin High Sensitivity 14.6 pg/mL (<58.9)
[2023-07-25] MEDS ORDERED: AZITHROMYCIN 250 MG TAB ONE (10:00)
[2023-07-25] MEDS ORDERED: CEFTRIAXONE 1000 MG/VIAL ONE (10:01)
--- NOTE | 2023-07-25 10:21 | P.HP ---
Certification for Inpatient Patient admitted to: Inpatient With expected LOS: <2 Midnights Patient will require the following post-hospital care: None Practitioner: I am a practitioner with admitting privileges, knowledge of patient current condition, hospital course, and medical plan of care. Services: Services provided to patient in accordance with Admission requirements found in Title 42 Section 412.3 of the Code of Federal Regulations Patient History Date of Service: 07/25/23 Reason for admission: shortness of breath History of Present Illness: 68 year old male with Pmhx COPD, Afib, CHF, HTN, PNA, and stroke who presents to the ED with c/o COPD exacerbation. He denies being treated with outpatient antibiotics or steroids in the last week. He reports this exacerbation has onset was one week with reported shortness of breath, productive cough, yellow sputum worse over the last 24 hours. No reported fever, chest pain, edema, dizziness, NVD. He reports prior admisson for COPD exacerbation, he sees Dr Holt. He does continue to smoke. Plan to admit for acute hypoxic hypercarbic respiratory failure secondary COPD exacerbation, dyspnea, tobacco use, pulmonary consult to see. Allergies No Known Allergies Allergy (Verified 02/22/23 17:15) Home Medications: Tate Peña 100-62.5-25 1 inh IH DAILY 09/30/22 Amlodipine [Norvasc*] 10 mg PO DAILY 02/22/23 Apixaban [Eliquis] 5 mg PO BID 02/22/23 Furosemide [Lasix] 80 mg PO DAILY 02/22/23 Spironolactone 25 mg PO DAILY 02/22/23 Roflumilast [Daliresp*] 500 mcg PO DAILY 30 Days #30 tab 05/20/23 Ipratropium/Albuterol Sulfate [Iprat-Albut 0.5-3(2.5) mg/3 ml] 3 ml IH Q6H PRN #120 amp 06/11/23 predniSONE [Deltasone*] 10 mg PO DAILY #30 tab 06/11/23 Tamsulosin [Flomax*] 0.4 mg PO BEDTIME 06/29/23 Amox/Clavulanate [Augmentin 875-125 Tab] 875 mg PO BID 5 Days #10 tab 06/30/23 Furosemide 80 mg PO DAILY #30 tab 06/30/23 Tamsulosin HCl 0.4 mg PO DAILY #30 cap 06/30/23 predniSONE [Deltasone*] 10 mg PO BID 5 Days #10 tab 06/30/23 - Past Medical/Surgical History Diabetic: No -: COPD -: Hypertension -: Alcohol abuse -: Hyponatremia -: Diastolic CHF -: Pneumonia -: Hernia repair -: left leg wound -: Left foot cancer removal Psychosocial/ Personal History: Patient is . He lives at home and has home health. - Family History Father -: Heart disease Brother -: Lung disease - Social History Alcohol use: Yes CD- Drugs: No Caffeine use: No Review of Systems per HPI Physical Examination - Physical Exam General: Alert, In no apparent distress, Oriented x3 HEENT: Atraumatic, Normocephalic, PERRLA Neck: Supple, 2+ carotid pulse no bruit Respiratory: Normal air movement, Expiratory wheezes Cardiovascular: No edema, Normal pulses, Normal S1 S2 Capillary refill: <2 Seconds Gastrointestinal: Normal bowel sounds, Soft and benign Musculoskeletal: No clubbing, No swelling Integumentary: No rashes, No breakdown Neurological: Normal speech, Normal strength at 5/5 x4 extr - Studies Laboratory Data (last 24 hrs) 07/25/23 07/25/23 07/25/23 08:45 08:45 08:45 WBC 10.30 Hgb 13.6 Hct 41.6 Plt Count 233 PT 20.3 H INR 1.85 Sodium 136 Potassium 2.8 L BUN 7 Creatinine 1.00 Glucose 119 H Magnesium 1.8 Total Bilirubin 0.6 AST 8 L ALT 17 Alkaline Phosphatase 68 Microbiology Data (last 24 hrs): 07/25/23 08:50 Nasopharnyx Influenza Type A Antigen Screen - Final 07/25/23 08:50 Nasopharnyx Influenza Type B Antigen Screen - Final Assessment and Plan - Plan Assessment plan Acute hypoxic hypercarbic respiratory failure secondary to COPD exacerbation Current Visit: Yes Status: Acute Solu-Medrol, nebs, IV antibiotics, ceftriaxone, azithromycin CBC no leukocytosis early left shift 85.6, Pulmonary consult Chest x-ray pending report Acute on chronic kidney injury likely secondary from diuretic use BUN 7, creatinine 1.00 Trend kidney function lactic acidosis Elevated lactic 2.6 CO2 elevated 36, trend lactic Gentle IV fluids secondary to heart failure history Hypokalemia likely secondary to albuterol use Trend electrolytes replace as needed, repeat BMP Tobacco use Current Visit: Yes Status: Acute Educate on tobacco cessation Hypertension Current Visit: No Status: Chronic Resume appropriate home medications, telemetry, History chronic heart failure chronic diastolic heart failure Current Visit: No Status: Chronic Daily weight, IO Lasix Troponin normal 14.6 elevated BNP 203 EKG sinus rhythm rate [address] elevation Full code Cardiac diet DVT Eliquis Plan to discharge home 48 hours. Discharge Plan: Home Plan to discharge in: 48 Hours - Advance Directives Does patient have a Living Will: No Does patient have a Durable POA for Healthcare: No - Code Status/Comfort Care Code Status: Full Code Physician Review: Patient Assessed, Agree with Above Assessment and Plan Critical Care: No Time Spent Managing Pts Care (In Minutes): 55
--- NOTE | 2023-07-25 10:35 | RAD REPORT ---
EXAM DESCRIPTION: [facility]ira Single View07/25/2023 8:40 am CLINICAL HISTORY: Shortness of breath COMPARISON: June 28, 2023 FINDINGS: Haziness left base unchanged. Most of this represents epicardial fat. Few areas of subsegm ental atelectasis are present. There may be a small left pleural effusion Remainder of the lungs appear clear of acute infiltrate. Heart is normal size
[2023-07-25] MEDS ORDERED: KCL 20 MEQ/100 mL IVPB 100 ML IV ONE ×2 (10:38→15:09)
[2023-07-25] MEDS ORDERED: POTASSIUM 25 MEQ EFFERV TAB ONE (10:38)
[2023-07-25] MEDS ORDERED: ONDANSETRON 4 MG/2 ML VIAL IV PRN ×2 (10:43→14:16)
[2023-07-25] MEDS ORDERED: ACETAMINOPHEN 500 MG TAB PO PRN ×2 (10:43→14:16)
[2023-07-25 10:55] LABS: Blood Morphology Comment NOT SEEN (NOT SEEN); Platelet Estimate ADEQ; White Blood Cell Scan OK (OK)
[2023-07-25 11:00] VITALS: BMI 30.7
[2023-07-25] MEDS ORDERED: METHYLPREDNISOLONE 125 MG INJ IV SCH (12:00)
[2023-07-25] MEDS: ARFORMOTEROL TARTRATE 15 MCG/2 ML VIAL.NEB NEB SCH ×2 (12:11→19:52)
--- NOTE | 2023-07-25 12:14 | P.CNS ---
Date of Consult: 07/25/23 Reason for Consult: COPD exacerbation Chief Complaint: shortness of breath History of Present Illness: Patient is 68 years of age recurrent admissions for COPD exacerbation by my office last week and he was doing well and got worse past 2 days more shortness of breath denies any cough phlegm currently he is compliant with his inhalers including Trelegy and steroid Allergies No Known Allergies Allergy (Verified 02/22/23 17:15) Home Medications: Trelegy Ellipta 100-62.5-25 1 inh IH DAILY 09/30/22 Amlodipine [Norvasc*] 10 mg PO DAILY 02/22/23 Apixaban [Eliquis] 5 mg PO BID 02/22/23 Furosemide [Lasix] 80 mg PO DAILY 02/22/23 Spironolactone 25 mg PO DAILY 02/22/23 Roflumilast [Daliresp*] 500 mcg PO DAILY 30 Days #30 tab 05/20/23 Ipratropium/Albuterol Sulfate [Iprat-Albut 0.5-3(2.5) mg/3 ml] 3 ml IH Q6H PRN #120 amp 06/11/23 predniSONE [Deltasone*] 10 mg PO DAILY #30 tab 06/11/23 Tamsulosin [Flomax*] 0.4 mg PO BEDTIME 06/29/23 Amox/Clavulanate [Augmentin 875-125 Tab] 875 mg PO BID 5 Days #10 tab 06/30/23 Furosemide 80 mg PO DAILY #30 tab 06/30/23 Tamsulosin HCl 0.4 mg PO DAILY #30 cap 06/30/23 predniSONE [Deltasone*] 10 mg PO BID 5 Days #10 tab 06/30/23 - Past Medical/Surgical History Diabetic: No -: COPD -: Hypertension -: Alcohol abuse -: Hyponatremia -: Diastolic CHF -: Pneumonia -: Hernia repair -: left leg wound -: Left foot cancer removal Psychosocial/ Personal History: Patient is . He lives at home and has home health. - Family History Father Medical History: Heart disease Brother Medical History: Lung disease - Social History Smoking Status: Current every day smoker Alcohol use: Yes CD- Drugs: No Caffeine use: No Review of Systems 10-point ROS is otherwise unremarkable Physical Examination General: Alert, Oriented x3 Neck: Supple Respiratory: Clear to auscultation bilaterally, Diminished Cardiovascular: No edema, Regular rate/rhythm, Normal S1 S2 Laboratory Data (last 24 hrs) 07/25/23 07/25/23 07/25/23 08:45 08:45 08:45 WBC 10.30 Hgb 13.6 Hct 41.6 Plt Count 233 PT 20.3 H INR 1.85 Sodium 136 Potassium 2.8 L BUN 7 Creatinine 1.00 Glucose 119 H Magnesium 1.8 Total Bilirubin 0.6 AST 8 L ALT 17 Alkaline Phosphatase 68 - Problems (1) COPD exacerbation Current Visit: Yes Status: Acute Plan: Patient is 68 years of age admitted with COPD exacerbation current admission denies alcohol abuse pliant with his trilogy steroids and Daliresp x-ray shows some interstitial changes evidence of pneumonia already anticoagulated. Patient is on Eliquis she of diastolic heart failure his BNP is normal new with Rocephin doubt infection add p.o. Zithromax to prevent recurrent exacerbations
[2023-07-25] MEDS: POTASSIUM CL SA 10 MEQ TAB PO SCH ×2 (12:24→20:11)
[2023-07-25] MEDS ORDERED: ROFLUMILAST 500 MCG TABLET PO SCH (13:00)
[2023-07-25] MEDS ORDERED: METHYLPREDNISOLONE 40 MG INJ ONE (13:17)
[2023-07-25] MEDS: NS KCL 20MEQ 20 MEQ/1,000 ML BAG IV SCH ×2 (14:16→17:10)
[2023-07-25] MEDS: METHYLPREDNISOLONE 125 MG INJ IV SCH ×2 (14:16→17:15)
[2023-07-25] MEDS ORDERED: POTASSIUM CL SA 10 MEQ TAB PO ONE (15:08)
[2023-07-25] MEDS: FUROSEMIDE 40 MG/4 ML VIAL IV SCH (17:09)
[2023-07-25] MEDS: ALBUTEROL 2.5 MG/3 ML NEB SOL NEB PRN (19:50)
[2023-07-25] MEDS: IPRATROPIUM BROM 0.5MG/2.5ML NEB PRN (19:50)
[2023-07-25] MEDS: APIXABAN 5 MG TABLET PO SCH (20:07)
[2023-07-25] MEDS: TAMSULOSIN 0.4 MG SR CAP PO SCH (20:07)
[2023-07-25] MEDS: POTASSIUM 25 MEQ EFFERV TAB PO SCH (20:07)
[2023-07-25] MEDS: FAMOTIDINE 20 MG/2 ML VIAL IV SCH (20:09)
[2023-07-25 20:32] LABS: Potassium 3.7 mEq/L (3.5-5.1); Troponin High Sensitivity 7.1 pg/mL (<58.9)
[2023-07-26] MEDS: METHYLPREDNISOLONE 125 MG INJ IV SCH ×5 (01:15→23:19)
[2023-07-26] MEDS: NS KCL 20MEQ 20 MEQ/1,000 ML BAG IV SCH ×4 (03:17→23:19)
[2023-07-26 03:19] LABS: Absolute Lymphocytes (CBC) 0.4 K/uL (0.7-4.9); Hematocrit 35.5 % (39.6-49.0); Lymphocytes % 4.9 % (15.3-44.8); MCV 88.8 fL (80-100); MPV 8.2 fL (7.6-11.3); Platelets 207 thou/uL (152-406)
[2023-07-26 03:50] LABS: Magnesium 2.4 mg/dL (1.6-2.4); Potassium 3.8 mEq/L (3.5-5.1)
[2023-07-26] MEDS: ARFORMOTEROL TARTRATE 15 MCG/2 ML VIAL.NEB NEB SCH ×2 (07:25→20:30)
[2023-07-26] MEDS ORDERED: PNEUMOCOCCAL VACCINE 0.5 ML IMVAC ONE (08:00)
[2023-07-26] MEDS ORDERED: CEFTRIAXONE 1,000 MG in NA CHLORIDE 0.9% 50 ML IVPB SCH ×4 (09:00)
[2023-07-26] MEDS ORDERED: AZITHROMYCIN IV 500 MG in NA CHLORIDE 0.9% 250 ML IVPB SCH (09:00)
[2023-07-26] MEDS: TRELEGY ELLIPTA IH SCH (09:00)
--- NOTE | 2023-07-26 09:07 | P.PN ---
Subjective Date of Service: 07/26/23 Chief Complaint: shortness of breath Subjective: No new changes, Improving, Doing well Patient is alert and oriented x3 Patient is on oxygen 2 L via nasal cannula, SPO2 96% Patient denies any new complaints Discussed care with the patient's nurse <Jordan Pollack - Last Filed: 07/26/23 09:15> Date of Service: 07/26/23 <Juanjo Blanco - Last Filed: 07/26/23 18:11> Review of Systems 10-point ROS is otherwise unremarkable <Jordan Pollack - Last Filed: 07/26/23 09:15> Physical Examination - Vital Signs Temperature: 98.3 F Blood Pressure: 99/72 Pulse: 94 Respirations: 18 Pulse Ox (%): 98 - Physical Exam General: Alert, In no apparent distress, Oriented x3 HEENT: Atraumatic, PERRLA Neck: Supple, 2+ carotid pulse no bruit Respiratory: Clear to auscultation bilaterally, Other (On oxygen via nasal cannula, short of breath with mild exertion) Cardiovascular: No edema, Normal pulses, Normal S1 S2 Capillary refill: <2 Seconds Gastrointestinal: Normal bowel sounds, Soft and benign Musculoskeletal: No clubbing, No swelling Integumentary: No rashes, No breakdown Neurological: Normal speech, Normal tone, Normal affect - Studies Laboratory Data (last 24 hrs) 07/25/23 07/25/23 07/25/23 08:45 08:45 08:45 WBC 10.30 Hgb 13.6 Hct 41.6 Plt Count 233 PT 20.3 H INR 1.85 Sodium 136 Potassium 2.8 L BUN 7 Creatinine 1.00 Glucose 119 H Magnesium 1.8 Total Bilirubin 0.6 AST 8 L ALT 17 Alkaline Phosphatase 68 Microbiology Data (last 24 hrs): 07/25/23 08:50 Nasopharnyx Influenza Type A Antigen Screen - Final 07/25/23 08:50 Nasopharnyx Influenza Type B Antigen Screen - Final <Jordan Pollack - Last Filed: 07/26/23 09:15> Assessment And Plan - Current Problems (Diagnosis) (1) Nicotine dependence Current Visit: Yes Status: Chronic Qualifiers: Nicotine product type: cigarettes (2) Cigarette nicotine dependence Current Visit: Yes Status: Chronic (3) COPD exacerbation Current Visit: Yes Status: Chronic (4) Acute respiratory failure with hypoxia Current Visit: No Status: Acute (5) Acute respiratory failure with hypoxia and hypercapnia Current Visit: No Status: Acute (6) Hypertension Current Visit: No Status: Chronic Qualifiers: Hypertension type: primary hypertension Qualified Code(s): I10 - Essential (primary) hypertension (7) Atrial fibrillation Current Visit: Yes Status: Acute (8) Chronic diastolic heart failure Current Visit: No Status: Chronic (9) Hypokalemia Current Visit: Yes Status: Acute - Plan Assessment plan Acute hypoxic hypercarbic respiratory failure secondary to COPD exacerbation Current Visit: Yes Status: Acute Solu-Medrol, nebs, IV antibiotics, ceftriaxone, azithromycin CBC no leukocytosis Pulmonary consult Chest x-ray Hypokalemia likely secondary to albuterol use Trend electrolytes replace as needed, repeat BMP Today's potassium 3.8, receiving IV potassium replacement. Tobacco use Current Visit: Yes Status: Acute Educate on tobacco cessation Hypertension Current Visit: No Status: Chronic Resume appropriate home medications, telemetry, Atrial fibrillation Chronic, controlled rate and anticoagulated on Eliquis 5 mg p.o. twice daily Denies any palpitation, chest discomfort. Continue the current management. History chronic heart failure chronic diastolic heart failure Current Visit: No Status: Chronic Daily weight, IO Lasix Troponin normal 14.6 elevated BNP 264 EKG sinus rhythm rate [address] elevation. Discharge Plan: Home Plan to discharge in: 24 Hours - Code Status/Comfort Care Code Status Assessed: Yes (full code) Code Status: Full Code Physician Review: Patient Assessed, Agree with Above Assessment and Plan Critical Care: No Time Spent Managing PTS Care (In Minutes): 35 (minutes) <Jordan Pollack - Last Filed: 07/26/23 09:15> Physician Review Additional Text: 07/26/23 18:02 Pt seen and examined. I agree with the note by the OUTSEWER. Pt is getting abx, steroid and duonebs for COPD exacerbation. He is still wheezing. senior quality manager ordered hospital bed. Pulm is following. Pt was advised to quit smoking. <Juanjo Blanco - Last Filed: 07/26/23 18:11>
[2023-07-26] MEDS: SPIRONOLACTONE 25 MG TABLET PO SCH (10:04)
[2023-07-26] MEDS: ASPIRIN EC 81 MG TAB PO SCH (10:05)
[2023-07-26] MEDS: AMLODIPINE 10 MG TAB PO SCH (10:05)
[2023-07-26] MEDS: AZITHROMYCIN 250 MG TAB PO SCH (10:05)
[2023-07-26] MEDS: ROFLUMILAST 500 MCG TABLET PO SCH (10:06)
[2023-07-26] MEDS: APIXABAN 5 MG TABLET PO SCH ×2 (10:06→20:51)
[2023-07-26] MEDS: FAMOTIDINE 20 MG/2 ML VIAL IV SCH ×2 (10:07→20:51)
[2023-07-26] MEDS: FUROSEMIDE 40 MG/4 ML VIAL IV SCH ×2 (10:07→17:15)
[2023-07-26] MEDS: POTASSIUM 25 MEQ EFFERV TAB PO SCH ×2 (10:07→20:51)
[2023-07-26] MEDS: POTASSIUM CL SA 10 MEQ TAB PO SCH ×2 (11:07→20:50)
[2023-07-26] MEDS: TAMSULOSIN 0.4 MG SR CAP PO SCH (20:51)
[2023-07-26] MEDS: ALPRAZOLAM 0.25 MG TABLET PO PRN (21:01)
[2023-07-27] MEDS: ALBUTEROL 2.5 MG/3 ML NEB SOL NEB PRN (01:19)
[2023-07-27] MEDS: IPRATROPIUM BROM 0.5MG/2.5ML NEB PRN (01:19)
[2023-07-27 04:03] LABS: Absolute Lymphocytes (CBC) 0.3 K/uL (0.7-4.9); Hematocrit 35.8 % (39.6-49.0); Lymphocytes % 2.3 % (15.3-44.8); MCV 90.2 fL (80-100); MPV 8.2 fL (7.6-11.3); Platelets 198 thou/uL (152-406); RBC Red Blood Cell Count 3.96 M/uL (4.33-5.43)
[2023-07-27 04:23] LABS: Magnesium 2.3 mg/dL (1.6-2.4); Phosphorus 2.4 mg/dL (2.5-4.9); Potassium 4.6 mEq/L (3.5-5.1)
[2023-07-27] MEDS: NS KCL 20MEQ 20 MEQ/1,000 ML BAG IV SCH (06:16)
[2023-07-27] MEDS: METHYLPREDNISOLONE 125 MG INJ IV SCH (06:33)
[2023-07-27] MEDS: IPRATROPIUM BROM 0.5MG/2.5ML NEB SCH ×3 (07:31→20:18)
[2023-07-27] MEDS: ARFORMOTEROL TARTRATE 15 MCG/2 ML VIAL.NEB NEB SCH ×2 (07:31→20:15)
--- NOTE | 2023-07-27 08:50 | P.PN ---
Subjective Date of Service: 07/27/23 Chief Complaint: shortness of breath Subjective: Tolerating diet, Worsening Patient is alert and oriented x3 Patient is on oxygen 2 L via nasal cannula, Patient is in mild respiratory distress, bilateral expiratory wheezing, tachypnea 24/min Discussed care with the patient's nurse, respiratory therapist <PollackJordan rivera - Last Filed: 07/27/23 17:50> Date of Service: 07/27/23 <Avi Blancorob Rhonda - Last Filed: 07/27/23 18:09> Review of Systems 10-point ROS is otherwise unremarkable <Jordan Pollack - Last Filed: 07/27/23 17:50> Physical Examination - Vital Signs Temperature: 97.7 F Blood Pressure: 132/70 Pulse: 98 Respirations: 17 Pulse Ox (%): 92 - Physical Exam General: Alert, Oriented x3, Moderate distress HEENT: Atraumatic, Normocephalic Neck: Supple, 2+ carotid pulse no bruit Respiratory: Diminished (At the bases), Expiratory wheezes (Bilateral), Other (In mild distress) Cardiovascular: No edema, Normal pulses, Normal S1 S2 Capillary refill: <2 Seconds Gastrointestinal: Normal bowel sounds, Soft and benign Musculoskeletal: No clubbing, No swelling, No contractures Integumentary: No rashes, No breakdown Neurological: Normal speech, Normal affect <PollackDeisyphyllis - Last Filed: 07/27/23 17:50> Assessment And Plan - Current Problems (Diagnosis) (1) Nicotine dependence Current Visit: Yes Status: Chronic Qualifiers: Nicotine product type: cigarettes (2) Cigarette nicotine dependence Current Visit: Yes Status: Chronic (3) COPD exacerbation Current Visit: Yes Status: Chronic (4) Acute respiratory failure with hypoxia Current Visit: No Status: Acute (5) Acute respiratory failure with hypoxia and hypercapnia Current Visit: No Status: Acute (6) Hypertension Current Visit: No Status: Chronic Qualifiers: Hypertension type: primary hypertension Qualified Code(s): I10 - Essential (primary) hypertension (7) Atrial fibrillation Current Visit: Yes Status: Acute (8) Chronic diastolic heart failure Current Visit: No Status: Chronic (9) Hypokalemia Current Visit: Yes Status: Acute - Plan Assessment plan Acute hypoxic hypercarbic respiratory failure secondary to COPD exacerbation Current Visit: Yes Status: Acute -Mild respiratory distress this morning, tachypneic bilateral expiratory wheezes. -Ordered scheduled bronchodilators -Continue Solu-Medrol, nebs, IV antibiotics, ceftriaxone, azithromycin -CBC 14.3 mild leukocytosis -Pulmonary follow-up -Chest x-ray ordered Hypokalemia likely secondary to albuterol use -Normal now , potassium 4.6 today . -Continue to trend electrolytes replace as needed, repeat BMP Tobacco use Current Visit: Yes Status: Acute Educate on tobacco cessation Hypertension Current Visit: No Status: Chronic Resume appropriate home medications, telemetry, Atrial fibrillation Chronic, controlled rate and anticoagulated on Eliquis 5 mg p.o. twice daily Denies any palpitation, chest discomfort. Continue the current management. History chronic heart failure chronic diastolic heart failure Current Visit: No Status: Chronic Daily weight, IO Lasix Troponin normal 14.6 elevated BNP 264 EKG sinus rhythm rate [address] elevation. Discharge Plan: Home Plan to discharge in: 24 Hours - Code Status/Comfort Care Code Status Assessed: Yes (full code) Code Status: Full Code Physician Review: Patient Assessed, Agree with Above Assessment and Plan Critical Care: No Time Spent Managing PTS Care (In Minutes): 35 (minutes) <Jordan Pollack - Last Filed: 07/27/23 17:50> Physician Review Additional Text: 07/27/23 18:09 Pt seen and examined. I agree withe note by the GLASS UNLOADING EQUIPMENT TENDER. Pt is still wheezingthis am. He refused to be discharged despite clearance for discharge from Pulm. Will keep him overnight <Juanjo Blanco - Last Filed: 07/27/23 18:09>
[2023-07-27] MEDS: POTASSIUM CL SA 10 MEQ TAB PO SCH ×2 (09:00→21:04)
[2023-07-27] MEDS: TRELEGY ELLIPTA IH SCH (09:00)
[2023-07-27] MEDS: POTASSIUM 25 MEQ EFFERV TAB PO SCH ×2 (09:00→21:02)
[2023-07-27] MEDS: AMLODIPINE 10 MG TAB PO SCH (09:12)
[2023-07-27] MEDS: APIXABAN 5 MG TABLET PO SCH ×2 (09:12→21:03)
[2023-07-27] MEDS: AZITHROMYCIN 250 MG TAB PO SCH (09:12)
[2023-07-27] MEDS: SPIRONOLACTONE 25 MG TABLET PO SCH (09:12)
[2023-07-27] MEDS: ROFLUMILAST 500 MCG TABLET PO SCH (09:13)
[2023-07-27] MEDS: ASPIRIN EC 81 MG TAB PO SCH (09:13)
[2023-07-27] MEDS: FUROSEMIDE 40 MG TABLET PO SCH (09:22)
[2023-07-27] MEDS: POTASS/SODIUM PHOSPHATE 1 PKT POWD.PACK PO SCH ×3 (09:23→11:24)
[2023-07-27] MEDS: predniSONE 20 MG TAB PO SCH ×2 (09:25→21:03)
--- NOTE | 2023-07-27 09:55 | RAD REPORT ---
EXAM DESCRIPTION: RADChest Single View07/27/2023 9:44 am CLINICAL HISTORY: Tachypnea COMPARISON: Chest Single View dated 07/25/2023; Chest Single View dated 06/28/2023; Chest Single View dated 06/09/2023; Chest Single View dated 05/17/2023 TECHNIQUE: Portable AP view of the chest. FINDINGS: Stable left basilar airspace opacity, likely combination of prominent epicardial fat and a telectasis. Medial right basilar atelectasis. Stable mild left costophrenic angle blunting, may relat e to pleural thickening or trace effusion. No pneumothorax or sizable effusion. The cardiomediastina l contours are unremarkable. IMPRESSION: No acute cardiopulmonary process. Findings as above.
--- NOTE | 2023-07-27 12:12 | P.PN ---
Subjective Date of Service: 07/27/23 Chief Complaint: COPD exacerbation Complaining of shortness of breath chest congestion no significant improvement Review of Systems General: Weakness Respiratory: Cough, Shortness of Breath Physical Examination - Vital Signs Temperature: 97.7 F Blood Pressure: 132/70 Pulse: 98 Respirations: 17 Pulse Ox (%): 92 - Physical Exam General: Alert, Oriented x3, Moderate distress Respiratory: Diminished, Expiratory wheezes Cardiovascular: No edema, Regular rate/rhythm, Normal S1 S2 Assessment And Plan - Current Problems (Diagnosis) (1) COPD exacerbation Current Visit: Yes Status: Chronic Plan: 68 years of age with a history of recurrent COPD exacerbation denies alcohol abuse still continues to smoke have diastolic heart failure DC IV fluids p.o. prednisone Zithromax Daliresp is making him tachycardic we will DC t patient may qualify for a noninvasive ventilator Labs reviewed p.o. prednisone audiogram ordered Physician Review: Patient Assessed, Agree with Above Assessment and Plan
[2023-07-27] MEDS ORDERED: ALBUTEROL 2.5 MG/3 ML NEB SOL NEB SCH (13:00)
[2023-07-27 13:12] LABS: Blood Gas Oxyhemoglobin 60.8 % (94-97)
[2023-07-27 13:13] LABS: Arterial Blood Carboxyhemoglob 0.9 % (0-1.5)
--- NOTE | 2023-07-27 13:36 | EKG ---
Test Date: 2023-07-25 Test Time: 08:50:37 Cloth Bleaching Range Tender: STEPHANIE MEASUREMENT RESULTS: Intervals: Rate: 96 NH: 172 QRSD: 94 QT: 368 QTc: 464 [place]: P: 59 NH: 172 QRS: 46 T: 64 INTERPRETIVE STATEMENTS: Sinus rhythm with marked sinus arrhythmia with occasional premature ventricular complexes Otherwise normal ECG Compared to ECG 06/28/2023 13:24:57 Ventricular premature complex(es) now present Sinus tachycardia no longer present Electronically Signed On 07-27-23 13:29:15 TOP CAGER by Curtis Sotelo
--- NOTE | 2023-07-27 14:54 | P.DS ---
Admission Date: 07/25/23 Discharge Date: 07/27/23 Reason for Admission: COPD exacerbation - Problems (1) Nicotine dependence Current Visit: Yes Status: Chronic Qualifiers: Nicotine product type: cigarettes (2) Cigarette nicotine dependence Current Visit: Yes Status: Chronic (3) COPD exacerbation Current Visit: Yes Status: Chronic (4) Acute respiratory failure with hypoxia Current Visit: No Status: Acute (5) Acute respiratory failure with hypoxia and hypercapnia Current Visit: No Status: Acute (6) Hypertension Current Visit: No Status: Chronic Qualifiers: Hypertension type: primary hypertension Qualified Code(s): I10 - Essential (primary) hypertension (7) Atrial fibrillation Current Visit: Yes Status: Acute (8) Chronic diastolic heart failure Current Visit: No Status: Chronic (9) Hypokalemia Current Visit: Yes Status: Acute Brief History of Present Illness: Date of admission: 07/25/23 Reason for admission: shortness of breath History of Present Illness: 68 year old male with Pmhx COPD, Afib, CHF, HTN, PNA, and stroke who presents to the ED with c/o COPD exacerbation. He denies being treated with outpatient antibiotics or steroids in the last week. He reports this exacerbation has onset was one week with reported shortness of breath, productive cough, yellow sputum worse over the last 24 hours. No reported fever, chest pain, edema, dizziness, NVD. He reports prior admisson for COPD exacerbation, he sees Dr Holt. He does continue to smoke. Plan to admit for acute hypoxic hypercarbic respiratory failure secondary COPD exacerbation, dyspnea, tobacco use, pulmonary consult to see. Hospital Course: Mr. Mckeon is a pleasant 68 year old male with a past medical history significant for COPD, A-fib, CHF, hypertension, pneumonia, and stroke who was admitted to the [facility] on 07/25/2020 COPD exacerbation. Patient was admitted and treated with IV antibiotics, steroid, bronchodilators and steroids. On 07/27/2023, patient was seen on morning rounds and deemed medically stable for discharge. Patient was discharged with instructions to schedule follow-up appointments with patient. The patient and family members were given the opportunity to ask questions and reported no further questions. Follow-ups PCP1 week Metal Window Screen Assembler Dr. Ferris 2 weeks <Jordan Pollack - Last Filed: 07/27/23 15:28> Admission Date: 07/25/23 Discharge Date: 07/27/23 Hospital Course: Pt seen and examined. I agree withe note by the MANAGER AEROSPACE. <Juanjo Blanco Rhonda - Last Filed: 07/27/23 18:28> Disposition: ROUTINE DISCHARGE Discharge Condition: GOOD Vital Signs/Physical Exam: Temp Pulse Resp BP Pulse Ox 97.7 F 98 H 17 132/70 92 07/27/23 12:12 07/27/23 12:12 07/27/23 12:12 07/27/23 12:12 07/27/23 12:12 General: Alert, Oriented x3 HEENT: Atraumatic Neck: Supple, 2+ carotid pulse no bruit Respiratory: Clear to auscultation bilaterally, Normal air movement Cardiovascular: No edema, Normal pulses Capillary refill: <2 Seconds Gastrointestinal: Normal bowel sounds, Soft and benign Musculoskeletal: No clubbing, No swelling Integumentary: No rashes, No breakdown Neurological: Normal speech, Normal affect Laboratory Data at Discharge: WBC 14.30 thou/uL (4.3-10.9) H 07/27/23 03:23 Hgb 11.9 g/dL (13.6-17.9) L 07/27/23 03:23 Hct 35.8 % (39.6-49.0) L 07/27/23 03:23 Plt Count 198 thou/uL (152-406) 07/27/23 03:23 PT 20.3 SECONDS (9.5-12.5) H 07/25/23 08:45 INR 1.85 07/25/23 08:45 Sodium 137 mEq/L (136-145) 07/27/23 03:23 Potassium 4.6 mEq/L (3.5-5.1) D 07/27/23 03:23 BUN 16 mg/dL (7-18) 07/27/23 03:23 Creatinine 0.94 mg/dL (0.70-1.30) 07/27/23 03:23 Glucose 220 mg/dL (74-106) H 07/27/23 03:23 Phosphorus 2.4 mg/dL (2.5-4.9) L 07/27/23 03:23 Magnesium 2.3 mg/dL (1.6-2.4) 07/27/23 03:23 Total Bilirubin 0.6 mg/dL (0.2-1.0) 07/25/23 08:45 AST 8 U/L (15-37) L 07/25/23 08:45 ALT 17 U/L (16-61) 07/25/23 08:45 Alkaline Phosphatase 68 U/L (45-117) 07/25/23 08:45 <Jordan Pollack - Last Filed: 07/27/23 15:28> Vital Signs/Physical Exam: Temp Pulse Resp BP Pulse Ox 97.7 F 98 H 17 132/70 92 07/27/23 17:50 07/27/23 17:50 07/27/23 17:50 07/27/23 17:50 07/27/23 17:50 Laboratory Data at Discharge: WBC 14.30 thou/uL (4.3-10.9) H 07/27/23 03:23 Hgb 11.9 g/dL (13.6-17.9) L 07/27/23 03:23 Hct 35.8 % (39.6-49.0) L 07/27/23 03:23 Plt Count 198 thou/uL (152-406) 07/27/23 03:23 PT 20.3 SECONDS (9.5-12.5) H 07/25/23 08:45 INR 1.85 07/25/23 08:45 Sodium 137 mEq/L (136-145) 07/27/23 03:23 Potassium 4.6 mEq/L (3.5-5.1) D 07/27/23 03:23 BUN 16 mg/dL (7-18) 07/27/23 03:23 Creatinine 0.94 mg/dL (0.70-1.30) 07/27/23 03:23 Glucose 220 mg/dL (74-106) H 07/27/23 03:23 Phosphorus 2.4 mg/dL (2.5-4.9) L 07/27/23 03:23 Magnesium 2.3 mg/dL (1.6-2.4) 07/27/23 03:23 Total Bilirubin 0.6 mg/dL (0.2-1.0) 07/25/23 08:45 AST 8 U/L (15-37) L 07/25/23 08:45 ALT 17 U/L (16-61) 07/25/23 08:45 Alkaline Phosphatase 68 U/L (45-117) 07/25/23 08:45 <Juanjo Blanco - Last Filed: 07/27/23 18:28> Diet: Regular Activity: Ad kate Time spent managing pt's care (in minutes): 55 (minutes) <Jordan Pollack - Last Filed: 07/27/23 15:28> <Juanjo Blanco - Last Filed: 07/27/23 18:28> Home Medications: Trelegy Ellipta 100-62.5-25 1 inh IH DAILY 09/30/22 Amlodipine [Norvasc*] 10 mg PO DAILY 02/22/23 Apixaban [Eliquis] 5 mg PO BID 02/22/23 Spironolactone 25 mg PO DAILY 02/22/23 Roflumilast [Daliresp*] 500 mcg PO DAILY 30 Days #30 tab 05/20/23 Ipratropium/Albuterol Sulfate [Iprat-Albut 0.5-3(2.5) mg/3 ml] 3 ml IH Q6H PRN #120 amp 06/11/23 Tamsulosin [Flomax*] 0.4 mg PO BEDTIME 06/29/23 Amox/Clavulanate [Augmentin 875-125 Tab*] 875 mg PO BID 5 Days #10 tab 06/30/23 Furosemide 80 mg PO DAILY #30 tab 06/30/23 Tamsulosin HCl 0.4 mg PO DAILY #30 cap 06/30/23 predniSONE [Deltasone*] 10 mg PO BID 5 Days #10 tab 06/30/23 Physician Discharge Instructions: Mr. Mckeon is a pleasant 68 year old male with a past medical history significant for COPD, A-fib, CHF, hypertension, pneumonia, and stroke who was admitted to the [facility] on 07/25/2020 COPD exacerbation. Patient was admitted and treated with IV antibiotics, steroid, bronchodilators and steroids. On 07/27/2023, patient was seen on morning rounds and deemed medically stable for discharge home. Patient was discharged with instructions to schedule follow-up appointments with patient. . The patient and family members were given the opportunity to ask questions and reported no further questions. Follow-ups PCP1 week Metal Window Screen Assembler Dr. Ferris 2 weeks Followup: Demetri Rizo MD [Primary Care Provider] - Cooper Holt MD [ACTIVE - CAN ADMIT] -
[2023-07-27] MEDS: TAMSULOSIN 0.4 MG SR CAP PO SCH (21:00)
[2023-07-27] MEDS: ALPRAZOLAM 0.25 MG TABLET PO PRN (21:05)
[2023-07-27 22:39] VITALS: O2SAT 98
[2023-07-28] MEDS: IPRATROPIUM BROM 0.5MG/2.5ML NEB SCH ×2 (02:19→07:59)
[2023-07-28 02:48] LABS: Absolute Lymphocytes (CBC) 0.5 K/uL (0.7-4.9); Hematocrit 36.5 % (39.6-49.0); Lymphocytes % 3.6 % (15.3-44.8); MCV 90.1 fL (80-100); MPV 7.7 fL (7.6-11.3); Platelets 227 thou/uL (152-406); RBC Red Blood Cell Count 4.06 M/uL (4.33-5.43)
[2023-07-28 04:53] LABS: Magnesium 2.7 mg/dL (1.6-2.4); Potassium 4.7 mEq/L (3.5-5.1)
[2023-07-28] MEDS: ARFORMOTEROL TARTRATE 15 MCG/2 ML VIAL.NEB NEB SCH (07:59)
[2023-07-28] MEDS: POTASSIUM 25 MEQ EFFERV TAB PO SCH (09:00)
[2023-07-28] MEDS: POTASSIUM CL SA 10 MEQ TAB PO SCH (09:00)
[2023-07-28] MEDS: TRELEGY ELLIPTA IH SCH (09:00)
[2023-07-28] MEDS: AMLODIPINE 10 MG TAB PO SCH (09:51)
[2023-07-28] MEDS: SPIRONOLACTONE 25 MG TABLET PO SCH (09:51)
[2023-07-28] MEDS: APIXABAN 5 MG TABLET PO SCH (09:51)
[2023-07-28] MEDS: ASPIRIN EC 81 MG TAB PO SCH (09:51)
[2023-07-28] MEDS: FUROSEMIDE 40 MG TABLET PO SCH (09:52)
[2023-07-28] MEDS: AZITHROMYCIN 250 MG TAB PO SCH (09:52)
[2023-07-28] MEDS: predniSONE 20 MG TAB PO SCH (09:52)
[2023-07-28] MEDS: ROFLUMILAST 500 MCG TABLET PO SCH (09:52)
--- NOTE | 2023-07-28 11:09 | P.DS ---
Admission Date: 07/25/23 Discharge Date: 07/28/23 Reason for Admission: shortness of breath - Problems (1) Nicotine dependence Status: Chronic Qualifiers: Nicotine product type: cigarettes (2) Cigarette nicotine dependence Status: Chronic (3) COPD exacerbation Status: Chronic (4) Acute respiratory failure with hypoxia Status: Acute (5) Acute respiratory failure with hypoxia and hypercapnia Status: Acute (6) Hypertension Status: Chronic Qualifiers: Hypertension type: primary hypertension Qualified Code(s): I10 - Essential (primary) hypertension (7) Atrial fibrillation Status: Acute (8) Chronic diastolic heart failure Status: Chronic (9) Hypokalemia Status: Acute Brief History of Present Illness: Date of admission: 07/25/23 Reason for admission: shortness of breath History of Present Illness: 68 year old male with Pmhx COPD, Afib, CHF, HTN, PNA, and stroke who presents to the ED with c/o COPD exacerbation. He denies being treated with outpatient antibiotics or steroids in the last week. He reports this exacerbation has onset was one week with reported shortness of breath, productive cough, yellow sputum worse over the last 24 hours. No reported fever, chest pain, edema, d izziness, NVD. He reports prior admisson for COPD exacerbation, he sees Dr Holt. He does continue to smoke. Plan to admit for acute hypoxic hypercarbic respiratory failure secondary COPD exacerbation, dyspnea, tobacco use, pulmonary consult to see. Hospital Course: Mr. Mckeon is a pleasant 68 year old male with a past medical history signifi cant for COPD, A-fib, CHF, hypertension, pneumonia, and stroke who was admitted to the [facility] on 07/25/2020 COPD exacerbation. Patient was admitted and treated with IV antibiotics, steroid, bronchodilators and steroids. On 07/27/2023, patient was seen on morning rounds and deemed medically stable for discharge. Patient was discharged with instructions to schedule follow-up appointments with patient. The patient and family members were given the opportunity to ask questions and reported no further questions. Follow-ups PCP1 week Rag Grader Dr. Ferris 2 weeks <Jordan Pollack - Last Filed: 07/28/23 11:07> Admission Date: 07/25/23 Discharge Date: 07/28/23 Hospital Course: Pt seen and examined. I agree with the note by the TECHNOLOGY DIRECTOR. Will continue prednisone taper and duoneb at home. <Juanjo Blanco Rhonda - Last Filed: 07/28/23 15:31> Disposition: ROUTINE DISCHARGE Discharge Condition: GOOD Vital Signs/Physical Exam: Temp Pulse Resp BP Pulse Ox 97.4 F 75 20 158/71 H 98 07/28/23 08:00 07/28/23 09:52 07/28/23 08:00 07/28/23 09:52 07/28/23 08:00 General: Alert, Oriented x3 HEENT: Atraumatic, Normocephalic Neck: Supple, 2+ carotid pulse no bruit Respiratory: Clear to auscultation bilaterally, Normal air movement, Expiratory wheezes Cardiovascular: No edema, Normal pulses Capillary refill: <2 Seconds Gastrointestinal: Normal bowel sounds, Hypoactive, Soft and benign Musculoskeletal: No clubbing, No swelling Neurological: Normal gait, Normal speech Lymphatics: No axilla or inguinal lymphadenopathy Laboratory Data at Discharge: WBC 13.90 thou/uL (4.3-10.9) H 07/28/23 02:30 Hgb 11.8 g/dL (13.6-17.9) L 07/28/23 02:30 Hct 36.5 % (39.6-49.0) L 07/28/23 02:30 Plt Count 227 thou/uL (152-406) 07/28/23 02:30 PT 20.3 SECONDS (9.5-12.5) H 07/25/23 08:45 INR 1.85 07/25/23 08:45 Sodium 138 mEq/L (136-145) 07/28/23 02:30 Potassium 4.7 mEq/L (3.5-5.1) 07/28/23 02:30 BUN 20 mg/dL (7-18) H 07/28/23 02:30 Creatinine 0.83 mg/dL (0.70-1.30) 07/28/23 02:30 Glucose 149 mg/dL (74-106) H 07/28/23 02:30 Phosphorus 2.4 mg/dL (2.5-4.9) L 07/27/23 03:23 Magnesium 2.7 mg/dL (1.6-2.4) H 07/28/23 02:30 Total Bilirubin 0.6 mg/dL (0.2-1.0) 07/25/23 08:45 AST 8 U/L (15-37) L 07/25/23 08:45 ALT 17 U/L (16-61) 07/25/23 08:45 Alkaline Phosphatase 68 U/L (45-117) 07/25/23 08:45 <Jordan Pollack - Last Filed: 07/28/23 11:07> Vital Signs/Physical Exam: Temp Pulse Resp BP Pulse Ox 97.9 F 93 H 20 138/84 96 07/28/23 12:00 07/28/23 12:00 07/28/23 12:00 07/28/23 12:00 07/28/23 12:00 Laboratory Data at Discharge: WBC 13.90 thou/uL (4.3-10.9) H 07/28/23 02:30 Hgb 11.8 g/dL (13.6-17.9) L 07/28/23 02:30 Hct 36.5 % (39.6-49.0) L 07/28/23 02:30 Plt Count 227 thou/uL (152-406) 07/28/23 02:30 PT 20.3 SECONDS (9.5-12.5) H 07/25/23 08:45 INR 1.85 07/25/23 08:45 Sodium 138 mEq/L (136-145) 07/28/23 02:30 Potassium 4.7 mEq/L (3.5-5.1) 07/28/23 02:30 BUN 20 mg/dL (7-18) H 07/28/23 02:30 Creatinine 0.83 mg/dL (0.70-1.30) 07/28/23 02:30 Glucose 149 mg/dL (74-106) H 07/28/23 02:30 Phosphorus 2.4 mg/dL (2.5-4.9) L 07/27/23 03:23 Magnesium 2.7 mg/dL (1.6-2.4) H 07/28/23 02:30 Total Bilirubin 0.6 mg/dL (0.2-1.0) 07/25/23 08:45 AST 8 U/L (15-37) L 07/25/23 08:45 ALT 17 U/L (16-61) 07/25/23 08:45 Alkaline Phosphatase 68 U/L (45-117) 07/25/23 08:45 <Juanjo Blanco - Last Filed: 07/28/23 15:31> Diet: Regular Activity: Ad kate Physician Review: Patient Assessed, Agree with Above Assessment and Plan Time spent managing pt's care (in minutes): 55 (minutes) <Jordan Pollack - Last Filed: 07/28/23 11:07> <Juanjo Blanco - Last Filed: 07/28/23 15:31> Home Medications: Trelegy Ellipta 100-62.5-25 1 inh IH DAILY 09/30/22 Amlodipine [Norvasc*] 10 mg PO DAILY 02/22/23 Apixaban [Eliquis] 5 mg PO BID 02/22/23 Spironolactone 25 mg PO DAILY 02/22/23 Roflumilast [Daliresp*] 500 mcg PO DAILY 30 Days #30 tab 05/20/23 Ipratropium/Albuterol Sulfate [Iprat-Albut 0.5-3(2.5) mg/3 ml] 3 ml IH Q6H PRN #120 amp 06/11/23 Tamsulosin [Flomax*] 0.4 mg PO BEDTIME 06/29/23 Amox/Clavulanate [Augmentin 875-125 Tab*] 875 mg PO BID 5 Days #10 tab 06/30/23 Furosemide 80 mg PO DAILY #30 tab 06/30/23 Tamsulosin HCl 0.4 mg PO DAILY #30 cap 06/30/23 Prednisolone, Micronized [Prednisolone] 10 mg PO DAILY 12 Days #30 tab 07/28/23 New Medications: Prednisolone, Micronized [Prednisolone] 10 mg PO DAILY 12 Days #30 tab Physician Discharge Instructions: Mr. Mckeon is a pleasant 68 year old male with a past medical history significant for COPD, A-fib, CHF, hypertension, pneumonia, and stroke who was admitted to the [facility] on 07/25/2020 COPD exacerbation. Patient was admitted and treated with IV antibiotics, steroid, bronchodilators a nd steroids. On 07/27/2023, patient was seen on morning rounds and deemed medically stable for discharge home. Patient was discharged with instructions to schedule follow-up appointments with patient. .Discharging with a prescription for prednisone tapering dose, send the prescription to the pharmacy. The patient was given the opportunity to ask questions and reported no further questions. Follow-ups PCP1 week Rag Grader Dr. Ferris 2 weeks Followup: Cooper Holt MD [ACTIVE - CAN ADMIT] - Demetri Rizo MD [Primary Care Provider] -
[2023-07-28 13:05] VITALS: BP 138/84; TEMP 97.9
== END 2023-07-28 12:30 | disposition home health service (06) | DRG 190 ==
LOC: ER 08:18 → ERHOLD 09:43 → 2ND 15:33
PROVIDERS: ADMIT Hospitalist; ATTEND Hospitalist
DX: J44.1 Chronic obstructive pulmonary disease with (acute) exacerbation (principal); J96.01 Acute respiratory failure with hypoxia; J96.02 Acute respiratory failure with hypercapnia; I50.32 Chronic diastolic (congestive) heart failure; N17.9 Acute kidney failure, unspecified; E87.20 Acidosis, unspecified; I11.0 Hypertensive heart disease with heart failure; I48.91 Unspecified atrial fibrillation; E87.6 Hypokalemia; G47.01 Insomnia due to medical condition; F17.210 Nicotine dependence, cigarettes, uncomplicated; Z71.6 Tobacco abuse counseling; Z63.5 Disruption of family by separation and divorce; Z11.52 Encounter for screening for COVID-19; Z79.01 Long term (current) use of anticoagulants; Z79.52 Long term (current) use of systemic steroids; Z79.899 Other long term (current) drug therapy
CPT/HCPCS: 36415; 71045; 80048; 80076; 82805; 83605; 83735; 83880; 84100; 84145; 84484; 85025; 85610; 87040; 87804; 87811; 93005; 94760; 99285; J0696; J1940; J2920; J2930; J3475; J3480; J7030; J7040; J7512; J7605; J7613; J7614; J7644

== ENCOUNTER 2023-08-18 03:13 | Inpatient (IN) | payer OTHER, BC ==
[2023-08-18] MEDS ORDERED: IPRATROPIUM BROM 0.5MG/2.5ML ONE (03:52)
[2023-08-18] MEDS ORDERED: CEFTRIAXONE 1000 MG/VIAL ONE ×2 (03:52→08:21)
[2023-08-18] MEDS ORDERED: ONDANSETRON 4 MG/2 ML VIAL ONE (03:53)
[2023-08-18] MEDS ORDERED: ASPIRIN 325 MG TAB ONE (03:53)
[2023-08-18] MEDS ORDERED: METHYLPREDNISOLONE 125 MG INJ ONE (03:53)
[2023-08-18] MEDS ORDERED: AZITHROMYCIN 250 MG TAB ONE (03:53)
[2023-08-18] MEDS ORDERED: NA CHLORIDE 0.9% 50 ML ONE (03:53)
[2023-08-18 04:03] LABS: Protime INR 1.09
[2023-08-18 04:04] LABS: Absolute Lymphocytes (CBC) 1.7 K/uL (0.7-4.9); Hematocrit 37.9 % (39.6-49.0); Lymphocytes % 20.5 % (15.3-44.8); MCV 88.7 fL (80-100); MPV 7.9 fL (7.6-11.3); Platelets 218 thou/uL (152-406); RBC Red Blood Cell Count 4.27 M/uL (4.33-5.43)
[2023-08-18 04:16] LABS: Albumin 3.4 g/dL (3.4-5.0); Bilirubin Direct 0.1 mg/dL (0-0.2); Bilirubin Indirect, Calculated 0.4 mg/dL (0.2-0.8); Bilirubin Total 0.5 mg/dL (0.2-1.0); Magnesium 2.4 mg/dL (1.6-2.4); Potassium 3.1 mEq/L (3.5-5.1); Protein, Total 6.4 g/dL (6.4-8.2); Troponin High Sensitivity 10.2 pg/mL (<58.9)
--- NOTE | 2023-08-18 05:38 | ER ---
Nurse's Notes [facility] Name: Randolph Mckeon Age: 68 yrs Sex: Male : 1955 Arrival Date: 08/18/2023 Time: 03:13 Bed 4 Private MD: Diagnosis: COPD/ Chronic obstructive pulmonary disease with (acute) exacerbation;Acute bronchitis, unspecified;Tobacco use Presentation: 08/18 03:17 Chief complaint: EMS states: started feeling sick morning of August 16, has been rv using Albuterol treatment at home with no relief. wheezing and oxygen saturation of 88% on RA. denies CP. Coronavirus screen: At this time, the client does not indicate any symptoms associated with coronavirus-19. Ebola Screen: No symptoms or risks identified at this time. Initial Sepsis Screen: Does the patient meet any 2 criteria? No. Patient's initial sepsis screen is negative. Does the patient have a suspected source of infection? No. Patient's initial sepsis screen is negative. Risk Assessment: Do you want to hurt yourself or someone else? Patient reports no desire to harm self or others. Onset of symptoms. 03:17 Method Of Arrival: EMS: [facility] rv 03:17 Acuity: YANNICK 2 rv Triage Assessment: 03:20 General: Appears uncomfortable, Behavior is calm, cooperative. Pain: Denies pain. rv Neuro: Level of Consciousness is awake, alert, obeys commands, Oriented to person, place, time, situation. Cardiovascular: Capillary refill < 3 seconds Patient's skin is warm and dry. Respiratory: Airway is patent Respiratory effort is labored, Respiratory pattern is tachypnea Breath sounds with wheezes bilaterally. GI: No signs and/or symptoms were reported involving the gastrointestinal system. : No signs and/or symptoms were reported regarding the genitourinary system. Derm: Skin is intact. Historical: - Allergies: 03:19 No Known Allergies; rv - Home Meds: 03:19 Amlodipine [Active]; rv - PMHx: 03:19 Atrial fibrillation; CHF; COPD; Hypertension; Pneumonia; rv - PSHx: 03:19 cyst removal on lower left limb; rv - Immunization history:: Adult Immunizations up to date. - Social history:: Smoking status: Patient reports the use of cigarette tobacco products, smokes one pack cigarettes per day. - Family history:: not pertinent. Screenin:21 [facility] ED Fall Risk Assessment (Adult) History of falling in the last 3 months, rv including since admission No falls in past 3 months (0 pts) Score/Fall Risk Level 0 - 2 = Low Risk Oriented to surroundings, Maintained a safe environment, Educated pt \T\ family on fall prevention, incl call for assistance when getting out of bed, Assessed \T\ reinforced patient's understanding of fall precautions. Abuse screen: Denies threats or abuse. Denies injuries from another. Nutritional screening: No deficits noted. Tuberculosis screening: No symptoms or risk factors identified. Assessment: 03:25 General: see triage assesment. jw7 04:25 Reassessment: Patient appears in no apparent distress at this time. No changes from jw7 previously documented assessment. Patient and/or family updated on plan of care and expected duration. Pain level reassessed. Patient is alert, oriented x 3, equal unlabored respirations, skin warm/dry/pink. 05:30 Reassessment: Patient and/or family updated on plan of care and expected duration. Pain rv level reassessed. Patient is alert, oriented x 3, equal unlabored respirations, skin warm/dry/pink. 06:30 Reassessment: Patient and/or family updated on plan of care and expected duration. Pain rv level reassessed. Patient is alert, oriented x 3, equal unlabored respirations, skin warm/dry/pink. 15:30 Reassessment: attempted to call report and the nurse who is getting the patient is on ko1 the phone getting report on a [facility] lab technician patient coming to her. She will call me back once the other patient is up and settled. 16:10 Reassessment: attempted to call report, no answer at [phone] or [phone]. ko1 16:23 Reassessment: attempted to call report, nurse just got patient from [facility] lab technician and will ko1 call me back when they are settled. Vital Signs: 03:17 BP 131 / 63; Pulse 50; Resp 22; Temp 98; Pulse Ox 99% on 15 lpm Nebulizer Mask; Weight rv 80 kg; Height 5 ft. 11 in. ; 03:30 BP 112 / 52; Pulse 46; Resp 24 S; Pulse Ox 93% ; jw7 04:30 BP 134 / 63; Pulse 101; Resp 25 S; Pulse Ox 94% ; jw7 05:00 BP 129 / 64; Pulse 100; Resp 18; Pulse Ox 95% on 2 lpm NC; rv 05:30 BP 121 / 63; Pulse 102; Resp 19; Pulse Ox 95% on 2 lpm NC; rv 06:00 BP 117 / 63; Pulse 100; Resp 21; Pulse Ox 95% on 2 lpm NC; rv 06:30 BP 121 / 60; Pulse 102; Resp 21; Pulse Ox 95% on 2 lpm NC; rv 03:17 Body Mass Index 24.60 (80.00 kg, 180.34 cm) rv ED Course: 03:17 Patient arrived in ED. rv 03:19 Triage completed. rv 03:20 Arm band placed on right wrist. rv 03:21 Jose Ye MD is Attending Physician. sp4 03:21 Patient has correct armband on for positive identification. Client placed on continuous rv cardiac and pulse oximetry monitoring. NIBP monitoring applied. 03:21 No provider procedures requiring assistance completed. rv 03:33 XRAY CXR (1 view) In Process Unspecified. EDMS 03:48 Rogerio Albert, SAMEER is Primary Nurse. rv 05:36 Roel Teran MD is Hospitalizing Provider. sp4 15:41 Primary Nurse role handed off by Rogerio Albert RN ko1 15:41 Uzma Tidwell, SAMEER is Primary Nurse. ko1 16:25 Provided Education on: admit. ko1 16:25 Patient admitted, IV remains in place. ko1 Administered Medications: 04:01 Not Given (not availablee): dextromethorphan-guaifenesinliquid 10 mg-100 mg/5 ml 10 ml rv PO once 04:01 Drug: Ondansetron IVP 4 mg IVP once; over 2 minutes Route: IVP; Site: left forearm; rv 04:49 Follow up: Response: No adverse reaction rv 04:01 Drug: AZITHromycin PO 500 mg PO once Route: PO; rv 04:48 Follow up: Response: No adverse reaction rv 04:02 Drug: Aspirin PO 325 mg PO once Route: PO; rv 04:49 Follow up: Response: No adverse reaction rv 04:02 Drug: Ipratropium Inhalation Aerosol 0.5 mg Inhalation once; Every 20 min for a total rv of 3 treatments x3 Route: Inhalation; 04:02 Drug: MethylPrednisoLONE IVP 125 mg IVP once Route: IVP; Site: left forearm; rv 04:49 Follow up: Response: No adverse reaction rv 04:06 Drug: Rocephin - Rocephin (cefTRIAXone) IVPB 1 grams IVPB once over 30 mins; (mix in 50 rv mL NS) Route: IVPB; Infused Over: 30 mins; Site: left forearm; 04:48 Follow up: Response: No adverse reaction; IV Status: Completed infusion; IV Intake: 50mlrv 04:32 Drug: Ipratropium Inhalation Aerosol 0.5 mg Inhalation once; Every 20 min for a total rv of 3 treatments x3 Route: Inhalation; 04:49 Drug: Ipratropium Inhalation Aerosol 0.5 mg Inhalation once; Every 20 min for a total rv of 3 treatments x3 Route: Inhalation; Medication: 03:21 VIS not applicable for this client. rv Intake: 04:48 IV: 50ml; Total: 50ml. rv Outcome: 05:37 Decision to Hospitalize by Provider. sp4 16:24 Admitted to Tele accompanied by sai jarrett 409, with chart, shukri 16:24 Condition: stable 16:24 Instructed on the need for admit, Demonstrated understanding of 17:02 Admitted to Tele Report called to teresa watt 17:10 Patient left the ED. iw Signatures: Dispatcher [employer] Leela Alba RN RN iw Rogerio Albert RN RN Shea Hahn RN RN jw7 Oliver, Kathy, RN RN ko1 Potepalov, Sergey, MD MD sp4 Corrections: (The following items were deleted from the chart) 04:59 04:57 BP 112 / 52; Pulse 46bpm; Resp 24bpm; Spontaneous; Pulse Ox 93%; jw7 jw7 16:24 15:30 Reassessment: attempted to call report and the nurse who is getting the patient shukri is on the phone getting report on another ED patient coming to her. She will call me back once the other patient is up and settled, shukri
--- NOTE | 2023-08-18 05:38 | EDPHYS ---
Physician Documentation [facility] Name: Randolph Mckoen Age: 68 yrs Sex: Male : 1955 Arrival Date: 08/18/2023 Time: 03:13 Bed 4 Private MD: ED Physician Jose Ye HPI: 08/18 03:24 This 68 yrs old Male presents to ER via EMS with complaints of dyspnea . sp4 04:44 8-year-old male with past medical history of COPD presents with acute worsening of sp4 shortness of breath, cough, feeling unwell, generalized weakness. Patient was admitted here 08/21/2023 through 07/28/2023. Patient was managed for nicotine dependence, COPD exacerbation, acute respiratory failure with hypoxia, hypercapnia, hypertension, atrial fibrillation, chronic diastolic heart failure, hypokalemia. Patient has history of COPD, atrial fibrillation, CHF, hypertension, pneumonia, history of stroke oxygen dependent at night. Patient continues to use tobacco. Patient was managed with IV antibiotics, steroids, bronchodilators. Patient's leaf stripper is Dr. Holt. . Patient's medications include Trelegy, amlodipine 10 mg daily, Trelegy Ellipta 100/62.5/21 also apixaban 5 mg p.o. twice daily, spironolactone 25 mg p.o. daily, Daliresp 500 daily, ipratropium albuterol nebulized, tamsulosin daily, Lasix 80 mg daily, and periodic p.o. steroids. Historical: - Allergies: 03:19 No Known Allergies; rv - Home Meds: 03:19 Amlodipine [Active]; rv - PMHx: 03:19 Atrial fibrillation; CHF; COPD; Hypertension; Pneumonia; rv - PSHx: 03:19 cyst removal on lower left limb; rv - Immunization history:: Adult Immunizations up to date. - Social history:: Smoking status: Patient reports the use of cigarette tobacco products, smokes one pack cigarettes per day. - Family history:: not pertinent. ROS: 04:44 Constitutional: Positive dyspnea, positive generalized weakness, positive shortness of sp4 breath, positive cough , positive feeling unwell. Eyes: Negative for injury, pain, redness, and discharge, 04:44 All other systems are negative, Exam: 04:44 Constitutional: This is a well developed, well nourished patient who is awake, alert, sp4 patient is elderly debilitated male, nebulized albuterol on arrival, he was physically deconditioned. Head/Face: Normocephalic, atraumatic. Eyes: Pupils equal round and reactive to light, extra-ocular motions intact. Lids and lashes normal. Conjunctiva and sclera are not injected. Cornea within normal limits. Periorbital areas with no swelling, redness, or edema. ENT: Nares patent. No nasal discharge, no septal abnormalities noted. Tympanic membranes are normal and external auditory canals are clear. Oropharynx with no redness, swelling, or masses, exudates, or evidence of obstruction, uvula midline. Mucous membranes moist. Neck: Trachea midline, no thyromegaly or masses palpated, and no cervical lymphadenopathy. Supple, full range of motion without nuchal rigidity, or vertebral point tenderness. Chest/axilla: Normal chest wall appearance and motion. Nontender with no deformity. No lesions are appreciated. Cardiovascular: Regular rate and rhythm with a normal S1 and S2. No gallops, murmurs, or rubs. Normal PMI, no JVD. No pulse deficits. Respiratory: Lungs have equal breath sounds bilaterally, bilateral expiratory wheezes all lung mccartney, dyspnea, tachypnea, accessory muscle use on arrival Abdomen/GI: Soft, non-tender, with normal bowel sounds. No distension or tympany. No guarding or rebound. No evidence of tenderness throughout. Back: No spinal tenderness. No costovertebral tenderness. Skin: Warm, dry with normal turgor. Normal color with no rashes, no lesions, and no evidence of cellulitis. MS/ Extremity: Pulses equal, no cyanosis. Neurovascular intact. Full, normal range of motion. Neuro: Awake and alert, GCS 15, oriented to person, place, time, and situation. Cranial nerves II-XII grossly intact. Motor strength 5/5 in all extremities. Sensory grossly intact. Psych: Awake, alert, with orientation to person, place and time. Behavior, mood, and affect are within normal limits 04:44 ECG was reviewed by the Attending Physician. There is sinus rhythm at a rate of 94 with sp4 multiple PVCs unifocal PVCs in a bigeminy pattern. Otherwise unremarkable EKG. Vital Signs: 03:17 BP 131 / 63; Pulse 50; Resp 22; Temp 98; Pulse Ox 99% on 15 lpm Nebulizer Mask; Weight rv 80 kg; Height 5 ft. 11 in. ; 03:30 BP 112 / 52; Pulse 46; Resp 24 S; Pulse Ox 93% ; jw7 04:30 BP 134 / 63; Pulse 101; Resp 25 S; Pulse Ox 94% ; jw7 05:00 BP 129 / 64; Pulse 100; Resp 18; Pulse Ox 95% on 2 lpm NC; rv 05:30 BP 121 / 63; Pulse 102; Resp 19; Pulse Ox 95% on 2 lpm NC; rv 06:00 BP 117 / 63; Pulse 100; Resp 21; Pulse Ox 95% on 2 lpm NC; rv 06:30 BP 121 / 60; Pulse 102; Resp 21; Pulse Ox 95% on 2 lpm NC; rv 03:17 Body Mass Index 24.60 (80.00 kg, 180.34 cm) rv MDM: 03:34 Patient medically screened. sp4 05:34 Differential Diagnosis altered mental status, sepsis, flu. Data reviewed: vital signs, sp4 nurses notes. Data reviewed: EMS record, old medical records, lab test result(s), EKG, radiologic studies, plain films. Consideration of Admission/Observation Patient was admitted/placed on observation. Escalation of care including admission/observation considered. ED course: Patient was given all necessary medications in ER, patient has moderate exacerbation of COPD, will admit for further management. 05:39 ED course: X ray - CLINICAL INDICATION: The patient is 68 years old and is Male; CHEST sp4 PAIN Bed Name: 4 TECHNIQUE: Frontal view of the chest. COMPARISON: No relevant prior studies available. FINDINGS: LUNGS: Relatively low lung volumes bilaterally with no discrete focal consolidation, allowing for lordotic positioning. PLEURAL SPACE: No appreciable pleural effusion or pneumothorax. MEDIASTINUM: Unremarkable cardiomediastinal contour. BONES/JOINTS: No acute osseous abnormality. IMPRESSION: Relatively low lung volumes bilaterally with no acute chest findings, allowing for lordotic positioning. 08/18 03:22 Order name: BMP; Complete Time: 04:41 sp4 08/18 03:22 Order name: Blood Culture Adult (2) sp4 08/18 03:22 Order name: CBC with Diff; Complete Time: 04:41 sp4 08/18 03:22 Order name: CPK; Complete Time: 04:41 sp4 08/18 03:22 Order name: Hepatic Function; Complete Time: 04:41 sp4 08/18 03:22 Order name: Lipase; Complete Time: 04:41 08/18 03:22 Order name: Magnesium; Complete Time: 04:41 08/18 03:22 Order name: NT PRO-BNP; Complete Time: 04:41 sp4 08/18 03:22 Order name: PT-INR; Complete Time: 04:41 08/18 03:22 Order name: Ptt, Activated; Complete Time: 04:41 08/18 03:22 Order name: Troponin HS; Complete Time: 04:41 08/18 04:43 Order name: COVID-19 SARS RT PCR; Complete Time: 05:33 08/18 04:43 Order name: Influenza Screen (a \T\ B); Complete Time: 05:33 4 08/18 06:03 Order name: Basic Metabolic Panel EDMS 08/18 06:03 Order name: Basic Metabolic Panel EDMS 08/18 06:03 Order name: CBC with Automated Diff EDMS 08/18 06:03 Order name: CBC with Automated Diff EDMS 08/18 06:03 Order name: Magnesium EDMS 08/18 06:03 Order name: Magnesium EDMS 08/18 06:04 Order name: Procalcitonin EDMS 08/18 03:22 Order name: XRAY CXR (1 view) [facility] 08/18 03:22 Order name: EKG; Complete Time: 03:23 08/18 03:22 Order name: Cardiac monitoring; Complete Time: 03:49 08/18 03:22 Order name: EKG - Nurse/Tech; Complete Time: 03:49 08/18 03:22 Order name: IV Saline Lock; Complete Time: 03:49 08/18 03:22 Order name: Labs collected and sent; Complete Time: 03:49 08/18 03:22 Order name: O2 Per Protocol; Complete Time: 03:49 08/18 03:22 Order name: O2 Sat Monitoring; Complete Time: 03:49 EC:44 Rate is 94 beats/min. Rhythm is regular, Sinus Rhythm with Unifocal PVCs. QRS Mascot is sp4 Normal. DE interval is normal. QRS interval is normal. QT interval is normal. No Q waves. T waves are Normal. No ST changes noted. Clinical impression: No evidence of ischemia. Interpreted by me. Reviewed by me. Administered Medications: 04:01 Not Given (not availablee): dextromethorphan-guaifenesinliquid 10 mg-100 mg/5 ml 10 ml rv PO once 04:01 Drug: Ondansetron IVP 4 mg IVP once; over 2 minutes Route: IVP; Site: left forearm; rv 04:49 Follow up: Response: No adverse reaction rv 04:01 Drug: AZITHromycin PO 500 mg PO once Route: PO; rv 04:48 Follow up: Response: No adverse reaction rv 04:02 Drug: Aspirin PO 325 mg PO once Route: PO; rv 04:49 Follow up: Response: No adverse reaction rv 04:02 Drug: Ipratropium Inhalation Aerosol 0.5 mg Inhalation once; Every 20 min for a total rv of 3 treatments x3 Route: Inhalation; 04:02 Drug: MethylPrednisoLONE IVP 125 mg IVP once Route: IVP; Site: left forearm; rv 04:49 Follow up: Response: No adverse reaction rv 04:06 Drug: Rocephin - Rocephin (cefTRIAXone) IVPB 1 grams IVPB once over 30 mins; (mix in 50 rv mL NS) Route: IVPB; Infused Over: 30 mins; Site: left forearm; 04:48 Follow up: Response: No adverse reaction; IV Status: Completed infusion; IV Intake: 50mlrv 04:32 Drug: Ipratropium Inhalation Aerosol 0.5 mg Inhalation once; Every 20 min for a total rv of 3 treatments x3 Route: Inhalation; 04:49 Drug: Ipratropium Inhalation Aerosol 0.5 mg Inhalation once; Every 20 min for a total rv of 3 treatments x3 Route: Inhalation; Disposition Summary: 08/18/23 05:37 Hospitalization Ordered Notes: Hospitalization Status: Inpatient Admission sp4 Provider: Roel Teran spRita Condition: Stable sp4 Problem: new sp4 Symptoms: have improved sp4 Bed/Room Type: Standard sp4 Location: Telemetry/MedSurg (Inpatient)(08/18/23 15:14) [facility] [place] Room Assignment: [facility](08/18/23 15:14) [facility] [place] Diagnosis - COPD/ Chronic obstructive pulmonary disease with (acute) exacerbation sp4 - Acute bronchitis, unspecified sp4 - Tobacco use sp4 Forms: - Medication Reconciliation Form sp4 - SBAR form sp4 - Leadership Thank You Letter sp4 Signatures: Dispatcher [employer] Rogerio Heath, RN RN rv Chanel Christiansen RN RN kb3 Jose Ye MD MD sp4 Ale Andrade mc5 Corrections: (The following items were deleted from the chart) 10:30 05:37 Telemetry/MedSurg (Inpatient) sp4 kb3 10:30 05:37 sp4 kb3 15:14 10:30 [facility] ER HOLD kb3 mc5 15:14 10:30 ERHOLD- kb3 mc5
[2023-08-18] MEDS ORDERED: ONDANSETRON 4 MG/2 ML VIAL IV PRN (05:56)
--- NOTE | 2023-08-18 06:10 | P.HP ---
Certification for Inpatient Patient admitted to: Observation Practitioner: I am a practitioner with admitting privileges, knowledge of patient current condition, hospital course, and medical plan of care. Services: Services provided to patient in accordance with Admission requirements found in Title 42 Section 412.3 of the Code of Federal Regulations Patient History Date of Service: 08/18/23 Reason for admission: COPD exacerbation History of Present Illness: 68-year-old male with history of multiple medical problems including hypertension, hyperlipidemia, COPD, chronic respiratory failure, chronic diastolic heart failure Presented to the emergency department with complaints of shortness of breath. Symptoms started today morning. Associated with wheezing. Denies chest pain, palpitations. Has dry cough. Denies fever or chills. Patient has history of COPD, chronic hypoxic respiratory failure, on home oxygen-2 L/min Patient received albuterol inhalation in the ED with some relief. Tested for COVID-19, influenza which were negative. Allergies No Known Allergies Allergy (Verified 02/22/23 17:15) Home Medications: Trelegy Ellipta 100-62.5-25 1 inh IH DAILY 09/30/22 Amlodipine [Norvasc*] 10 mg PO DAILY 02/22/23 Apixaban [Eliquis] 5 mg PO BID 02/22/23 Spironolactone 25 mg PO DAILY 02/22/23 Roflumilast [Daliresp*] 500 mcg PO DAILY 30 Days #30 tab 05/20/23 Ipratropium/Albuterol Sulfate [Iprat-Albut 0.5-3(2.5) mg/3 ml] 3 ml IH Q6H PRN #120 amp 06/11/23 Tamsulosin [Flomax*] 0.4 mg PO BEDTIME 06/29/23 Amox/Clavulanate [Augmentin 875-125 Tab*] 875 mg PO BID 5 Days #10 tab 06/30/23 Furosemide 80 mg PO DAILY #30 tab 06/30/23 Tamsulosin HCl 0.4 mg PO DAILY #30 cap 06/30/23 Prednisolone, Micronized [Prednisolone] 10 mg PO DAILY 12 Days #30 tab 07/28/23 - Past Medical/Surgical History Diabetic: No -: COPD -: Hypertension -: Alcohol abuse -: Hyponatremia -: Diastolic CHF -: Pneumonia -: Hernia repair -: left leg wound -: Left foot cancer removal Psychosocial/ Personal History: Patient is . He lives at home and has home health. - Family History Father -: Heart disease Brother -: Lung disease - Social History Alcohol use: Yes CD- Drugs: No Caffeine use: No Review of Systems General: Unremarkable Eyes: Unremarkable ENT: Unremarkable Respiratory: Cough, Shortness of Breath Cardiovascular: Unremarkable Gastrointestinal: Unremarkable Genitourinary: Unremarkable Musculoskeletal: Unremarkable Integumentary: Unremarkable Neurological: Unremarkable Physical Examination - Physical Exam General: Alert, Oriented x3 HEENT: Normocephalic, PERRLA Neck: Supple, JVD not distended Respiratory: Expiratory wheezes Cardiovascular: No edema, Regular rate/rhythm, Normal S1 S2 Gastrointestinal: Soft and benign, Non-distended, No tenderness Musculoskeletal: No swelling, No erythema Integumentary: No rashes, No erythema Neurological: Normal speech - Studies Laboratory Data (last 24 hrs) 08/18/23 08/18/23 08/18/23 03:35 03:35 03:35 WBC 8.10 Hgb 12.3 L Hct 37.9 L Plt Count 218 PT 12.0 INR 1.09 APTT 36.2 Sodium 134 L Potassium 3.1 L BUN 20 H Creatinine 1.00 Glucose 94 Magnesium 2.4 Total Bilirubin 0.5 AST 10 L ALT 19 Alkaline Phosphatase 57 Lipase 42 Microbiology Data (last 24 hrs): 08/18/23 04:45 Nasopharnyx Influenza Type A Antigen Screen - Final 08/18/23 04:45 Nasopharnyx Influenza Type B Antigen Screen - Final Assessment and Plan - Problems (Diagnosis) (1) COPD exacerbation Current Visit: No Status: Acute (2) BPH (benign prostatic hyperplasia) Current Visit: No Status: Acute (3) Hypertension Current Visit: No Status: Chronic Qualifiers: (4) Chronic diastolic heart failure Current Visit: No Status: Chronic (5) Chronic respiratory failure Current Visit: No Status: Acute (6) Tobacco use Current Visit: No Status: Acute (7) Hypokalemia Current Visit: No Status: Acute - Advance Directives Does patient have a Living Will: No Does patient have a Durable POA for Healthcare: No Assessment & Plan - Problems (Diagnosis) (1) COPD exacerbation Current Visit: No Status: Acute (2) BPH (benign prostatic hyperplasia) Current Visit: No Status: Acute (3) Hypertension Current Visit: No Status: Chronic Qualifiers: (4) Chronic diastolic heart failure Current Visit: No Status: Chronic (5) Chronic respiratory failure Current Visit: No Status: Acute (6) Tobacco use Current Visit: No Status: Acute (7) Hypokalemia Current Visit: No Status: Acute - Plan ASSESSMENT Acute exacerbation of COPD Chronic hypoxic respiratory failure Hypokalemia Hypertension Chronic diastolic heart failure BPH Chronic tobacco abuse Obesity PLAN Patient will be placed in observation Monitor the patient on telemetry Vitals per unit routine, pulse ox every 6 hours Continue supplemental oxygen-currently at 2 L/min Start the patient on IV ceftriaxone, IV Zithromax, IV Solu-Medrol Albuterol and Atrovent nebulization Check serum procalcitonin level Replace potassium Lovenox for DVT prophylaxis Obtain home medications, review and reconcile when available Further management will be based on hospital course. Discussed findings and treatment plan with the patient and answered all his questions - Advance Directives Does patient have a Living Will: No Does patient have a Durable POA for Healthcare: No
[2023-08-18 06:57] VITALS: BMI 24.5
[2023-08-18] MEDS ORDERED: POTASSIUM CL 40 MEQ in NA CHLORIDE 0.9% 500 ML IV ONE (07:00)
[2023-08-18] MEDS ORDERED: PNEUMOCOCCAL VACCINE 0.5 ML IMVAC ONE (08:00)
[2023-08-18] MEDS ORDERED: INFLUENZA VACCINE (for 6+ mo) 0.5 ML DOSE IMVAC ONE (08:00)
[2023-08-18] MEDS ORDERED: AZITHROMYCIN 500 MG INJ IVPB ONE (08:19)
[2023-08-18] MEDS ORDERED: METHYLPREDNISOLONE 40 MG INJ ONE (08:19)
[2023-08-18] MEDS ORDERED: NA CHLORIDE 0.9% 250 ML ONE (08:20)
[2023-08-18] MEDS ORDERED: ENOXAPARIN 40 MG/0.4 ML SQ ONE (08:20)
[2023-08-18] MEDS: CEFTRIAXONE 1,000 MG in NA CHLORIDE 0.9% 50 ML IVPB SCH (08:27)
[2023-08-18] MEDS: METHYLPREDNISOLONE 40 MG INJ IV SCH ×2 (08:27→17:19)
[2023-08-18] MEDS: AZITHROMYCIN IV 500 MG in NA CHLORIDE 0.9% 250 ML IVPB SCH (08:27)
[2023-08-18] MEDS ORDERED: ENOXAPARIN 40 MG/0.4 ML SQ SCH (09:00)
[2023-08-18] MEDS: ALBUTEROL 2.5 MG/3 ML NEB SOL NEB SCH ×3 (09:27→20:21)
[2023-08-18] MEDS: IPRATROPIUM BROM 0.5MG/2.5ML NEB SCH ×3 (09:27→20:21)
--- NOTE | 2023-08-18 11:42 | RAD REPORT ---
EXAM DESCRIPTION: RAD - Chest Single View - 08/18/2023 3:31 am CLINICAL HISTORY: The patient is 68 years old and is Male; CHEST PAIN Bed Name: 4 TECHNIQUE: Frontal view of the chest. COMPARISON: No relevant prior studies available. FINDINGS: LUNGS: Relatively low lung volumes bilaterally with no discrete focal consolidation, all owing for lordotic positioning. PLEURAL SPACE: No appreciable pleural effusion or pneumothorax. MEDIASTINUM: Unremarkable cardiomediastinal contour. BONES/JOINTS: No acute osseous abnormality. IMPRESSION: Relatively low lung volumes bilaterally with no acute chest findings, allowing for lordo tic positioning. Electronically signed by: Jj George MD 08/18/2023 04:57 AM METAL P[employer]CH PRESS OPERATOR Due to temporary technical issues with the PACS/Fluency reporting system, reports are being signed by the in house radiologist without review as a courtesy to ensure prompt reporting. The interpreting r adiologist is fully responsible for the content of the report.
--- NOTE | 2023-08-18 17:12 | P.PN ---
Date of Service: 08/18/23 Patient seen and examined. States he feels much better. He reports improvement in shortness of breath. Examination revealed scattered wheezes. Plan: Continue bronchodilators, IV steroid and antibiotics. Add IV Lasix.
[2023-08-18] MEDS: carvediloL 12.5 MG TAB PO SCH (20:40)
[2023-08-18] MEDS: APIXABAN 5 MG TABLET PO SCH (20:40)
[2023-08-19] MEDS: IPRATROPIUM BROM 0.5MG/2.5ML NEB SCH ×4 (01:17→19:41)
[2023-08-19] MEDS: ALBUTEROL 2.5 MG/3 ML NEB SOL NEB SCH ×4 (01:17→19:41)
[2023-08-19] MEDS: METHYLPREDNISOLONE 40 MG INJ IV SCH ×3 (01:18→16:00)
[2023-08-19 02:12] LABS: Absolute Lymphocytes (CBC) 0.5 K/uL (0.7-4.9); Hematocrit 34.7 % (39.6-49.0); Lymphocytes % 5.5 % (15.3-44.8); MCV 89.2 fL (80-100); MPV 7.9 fL (7.6-11.3); Platelets 220 thou/uL (152-406); RBC Red Blood Cell Count 3.89 M/uL (4.33-5.43)
[2023-08-19 02:26] LABS: Magnesium 2.4 mg/dL (1.6-2.4); Potassium 4.3 mEq/L (3.5-5.1)
[2023-08-19 03:27] LABS: Blood Morphology Comment NOT SEEN (NOT SEEN); Platelet Estimate ADEQ
[2023-08-19] MEDS: carvediloL 12.5 MG TAB PO SCH ×2 (05:38→17:01)
[2023-08-19] MEDS: ROFLUMILAST 500 MCG TABLET PO SCH (08:46)
[2023-08-19] MEDS: SPIRONOLACTONE 25 MG TABLET PO SCH (08:46)
[2023-08-19] MEDS: APIXABAN 5 MG TABLET PO SCH ×2 (08:46→20:16)
[2023-08-19] MEDS: CEFTRIAXONE 1,000 MG in NA CHLORIDE 0.9% 50 ML IVPB SCH (08:47)
[2023-08-19] MEDS: TAMSULOSIN 0.4 MG SR CAP PO SCH (08:47)
[2023-08-19] MEDS: AZITHROMYCIN IV 500 MG in NA CHLORIDE 0.9% 250 ML IVPB SCH (08:48)
[2023-08-19] MEDS ORDERED: TRELEGY ELLIPTA IH SCH (09:00)
[2023-08-19] MEDS ORDERED: FUROSEMIDE 40 MG/4 ML VIAL IV SCH (09:00)
--- NOTE | 2023-08-19 13:24 | EKG ---
Test Date: 2023-08-18 Test Time: 03:24:54 Insert Molding Operator: RV MEASUREMENT RESULTS: Intervals: Rate: 94 OH: QRSD: 158 QT: 362 QTc: 452 [place]: P: OH: QRS: 61 T: -72 INTERPRETIVE STATEMENTS: Sinus with frequent PVCs. Nonspecific intraventricular block Abnormal ECG Electronically Signed On 08-19-23 13:21:30 OPERATIONS MANAGEMENT TRAINEE by Curtis Sotelo
--- NOTE | 2023-08-19 14:44 | P.PN ---
Subjective Date of Service: 08/19/23 Chief Complaint: COPD exacerbation Patient reports some improvement in his shortness of breath but states he is not back to baseline. He is maintained on baseline oxygen 2 L by nasal cannula. Physical Examination - Vital Signs Temperature: 98.5 F Blood Pressure: 120/56 Pulse: 76 Respirations: 20 Pulse Ox (%): 94 - Studies Laboratory Data (last 24 hrs) 08/19/23 08/19/23 08/18/23 01:53 01:53 19:45 WBC 9.50 Hgb 11.3 L D Hct 34.7 L Plt Count 220 Sodium 136 Potassium 4.3 D BUN 18 Creatinine 0.99 Glucose 183 H Magnesium 2.4 2.2 Assessment And Plan - Plan Physical Exam General: Alert, Oriented x3, NAD Neck: JVD not distended Respiratory: Mild scattered expiratory wheezes, no crackles. Cardiovascular: No edema, Regular rate/rhythm, Normal S1 S2 Gastrointestinal: Soft and benign, Non-distended, No tenderness Musculoskeletal: No swelling, No erythema Integumentary: No rashes, No erythema Neurological: Normal speech no focal motor deficits. Assessment and plan COPD exacerbation/acute on chronic respiratory failure with hypoxia Clinically improved and currently tolerating baseline oxygen. Continue scheduled bronchodilators, IV steroids. IV antibiotics. Continue home dose Daliresp Pulmonary consult. Chronic diastolic heart failure Stable. Continue home dose Lasix. Tobacco use Smoking cessation advised. PVCs/bigeminy's/Chronic persistent atrial fibrillation Monitor and optimize electrolytes-potassium and magnesium. Continue cardiac monitoring Patient started on oral Coreg. Continue Eliquis for A-fib anticoagulation. DVT prophylaxis: Eliquis
[2023-08-19] MEDS: NICOTINE 21 MG/PAT TD SCH (15:07)
[2023-08-19] MEDS: DULERA 200/5 (MOMETASONE/FORMOTEROL) INHALER IH SCH (20:14)
[2023-08-20] MEDS: ALBUTEROL 2.5 MG/3 ML NEB SOL NEB SCH ×2 (01:07→07:30)
[2023-08-20] MEDS: IPRATROPIUM BROM 0.5MG/2.5ML NEB SCH ×2 (01:07→07:30)
[2023-08-20] MEDS: METHYLPREDNISOLONE 40 MG INJ IV SCH ×2 (02:09→08:15)
[2023-08-20 04:42] VITALS: TEMP 97.4
[2023-08-20] MEDS: carvediloL 12.5 MG TAB PO SCH (05:50)
[2023-08-20 07:10] LABS: Absolute Lymphocytes (CBC) 0.4 K/uL (0.7-4.9); Hematocrit 36.2 % (39.6-49.0); Lymphocytes % 4.6 % (15.3-44.8); MCV 89.8 fL (80-100); MPV 7.9 fL (7.6-11.3); Platelets 217 thou/uL (152-406); RBC Red Blood Cell Count 4.03 M/uL (4.33-5.43)
[2023-08-20 07:27] LABS: Potassium 4.7 mEq/L (3.5-5.1)
[2023-08-20] MEDS: CEFTRIAXONE 1,000 MG in NA CHLORIDE 0.9% 50 ML IVPB SCH (08:14)
[2023-08-20] MEDS: AZITHROMYCIN IV 500 MG in NA CHLORIDE 0.9% 250 ML IVPB SCH (08:15)
[2023-08-20] MEDS: NICOTINE 21 MG/PAT TD SCH (08:15)
[2023-08-20] MEDS: ROFLUMILAST 500 MCG TABLET PO SCH (08:17)
[2023-08-20] MEDS: APIXABAN 5 MG TABLET PO SCH (08:17)
[2023-08-20] MEDS: TAMSULOSIN 0.4 MG SR CAP PO SCH (08:17)
[2023-08-20] MEDS: DULERA 200/5 (MOMETASONE/FORMOTEROL) INHALER IH SCH (08:17)
[2023-08-20] MEDS: SPIRONOLACTONE 25 MG TABLET PO SCH (08:18)
[2023-08-20 08:23] VITALS: BP 128/67
[2023-08-20] MEDS ORDERED: FUROSEMIDE 40 MG TABLET PO SCH (09:00)
[2023-08-20] MEDS ORDERED: HOME MED 1 EA UNK (Furosemide [Furosemide] 80 MG Tablet) PO SCH (09:00)
[2023-08-20 11:28] VITALS: O2SAT 95
--- NOTE | 2023-08-20 12:42 | P.DS ---
Admission Date: 08/19/23 Discharge Date: 08/20/23 Disposition: ROUTINE DISCHARGE Discharge Condition: GOOD Reason for Admission: COPD exacerbation Brief History of Present Illness: 68-year-old male with history of multiple medical problems including hypertension, hyperlipidemia, COPD, chronic respiratory failure, chronic diastolic heart failure Presented to the emergency department with complaints of shortness of breath. Symptoms started today morning. Associated with wheezing. Denies chest pain, palpitations. Has dry cough. Denies fever or chills. Patient has history of COPD, chronic hypoxic respiratory failure, on home oxyge n-2 L/min Patient received albuterol inhalation in the ED with some relief. Tested for COVID-19, influenza which were negative. Hospital Course: COPD exacerbation/acute on chronic respiratory failure with hypoxia Clinically improved with bronchodilators, IV steroid and IV antibiotics. Continued home dose Daliresp. Respiratory status has improved to baseline Chronic diastolic heart failure Stable. Continued home dose Lasix. Tobacco use Smoking cessation advised. PVCs/bigeminy's/Chronic persistent atrial fibrillation Patient started on oral Coreg. Continued Eliquis for A-fib anticoagulation. Vital Signs/Physical Exam: Temp Pulse Resp BP Pulse Ox 97.4 F 64 18 128/67 94 08/20/23 08:00 08/20/23 08:18 08/20/23 08:00 08/20/23 08:18 08/20/23 08:00 General: Alert, In no apparent distress, Oriented x3 HEENT: Mucous membr. moist/pink Neck: Supple, JVD not distended Respiratory: Clear to auscultation bilaterally, Normal air movement Cardiovascular: No edema, Normal S1 S2, Irregular heart rate/rhythm Gastrointestinal: Soft and benign, Non-distended, No tenderness Musculoskeletal: No swelling Integumentary: No rashes, No cyanosis Neurological: Normal strength at 5/5 x4 extr Laboratory Data at Discharge: WBC 9.60 thou/uL (4.3-10.9) 08/20/23 06:52 Hgb 11.8 g/dL (13.6-17.9) L 08/20/23 06:52 Hct 36.2 % (39.6-49.0) L 08/20/23 06:52 Plt Count 217 thou/uL (152-406) 08/20/23 06:52 PT 12.0 SECONDS (9.5-12.5) 08/18/23 03:35 INR 1.09 08/18/23 03:35 APTT 36.2 SECONDS (24.3-36.9) 08/18/23 03:35 Sodium 136 mEq/L (136-145) 08/20/23 06:52 Potassium 4.7 mEq/L (3.5-5.1) 08/20/23 06:52 BUN 18 mg/dL (7-18) 08/20/23 06:52 Creatinine 0.71 mg/dL (0.70-1.30) 08/20/23 06:52 Glucose 139 mg/dL (74-106) H 08/20/23 06:52 Magnesium 2.4 mg/dL (1.6-2.4) 08/19/23 01:53 Total Bilirubin 0.5 mg/dL (0.2-1.0) 08/18/23 03:35 AST 10 U/L (15-37) L 08/18/23 03:35 ALT 19 U/L (16-61) 08/18/23 03:35 Alkaline Phosphatase 57 U/L (45-117) 08/18/23 03:35 Lipase 42 U/L (13-75) 08/18/23 03:35 Home Medications: Amlodipine [Norvasc*] 10 mg PO DAILY 02/22/23 Apixaban [Eliquis] 5 mg PO BID 02/22/23 Spironolactone 25 mg PO DAILY 02/22/23 Roflumilast [Daliresp*] 500 mcg PO DAILY 30 Days #30 tab 05/20/23 Tamsulosin [Flomax*] 0.4 mg PO BEDTIME 06/29/23 Furosemide 80 mg PO DAILY #30 tab 06/30/23 Fluticasone/Umeclidin/Vilanter [Trelegy Ellipta 100-62.5-25] 1 each IH DAILY #1 inh 08/20/23 Ipratropium/Albuterol Sulfate [Iprat-Albut 0.5-3(2.5) mg/3 ml] 3 ml IH Q6H PRN #120 amp 08/20/23 predniSONE [Deltasone*] 10 mg PO DAILY #30 tab 08/20/23 New Medications: predniSONE [Deltasone*] 10 mg PO DAILY #30 tab Ipratropium/Albuterol Sulfate [Iprat-Albut 0.5-3(2.5) mg/3 ml] 3 ml IH Q6H PRN #120 amp PRN Reason: Shortness Of Breath Fluticasone/Umeclidin/Vilanter [Trelegy Ellipta 100-62.5-25] 1 each IH DAILY #1 inh Diet: AHA Followup: NONE,NONE [Primary Care Provider] - 1-2 Weeks (call to schedule an appointment) Time spent managing pt's care (in minutes): 36
== END 2023-08-20 11:17 | disposition home health service (06) | DRG 190 ==
LOC: ER 03:13 → ERHOLD 05:56 → 4TH 15:26 → OBSVTOIN 08-19 12:09
PROVIDERS: ADMIT Family Medicine; ATTEND Internal Medicine
DX: J44.1 Chronic obstructive pulmonary disease with (acute) exacerbation (principal); J96.21 Acute and chronic respiratory failure with hypoxia; I48.19 Other persistent atrial fibrillation; I50.32 Chronic diastolic (congestive) heart failure; Z99.81 Dependence on supplemental oxygen; Z72.0 Tobacco use; I11.0 Hypertensive heart disease with heart failure; Z79.01 Long term (current) use of anticoagulants; E78.5 Hyperlipidemia, unspecified; F10.10 Alcohol abuse, uncomplicated; Z85.9 Personal history of malignant neoplasm, unspecified; N40.0 Benign prostatic hyperplasia without lower urinary tract symptoms; E87.6 Hypokalemia; E66.9 Obesity, unspecified; Z68.24 Body mass index [BMI] 24.0-24.9, adult; I49.3 Ventricular premature depolarization; R00.8 Other abnormalities of heart beat
CPT/HCPCS: 36415; 71045; 80048; 80076; 82550; 83690; 83735; 83880; 84145; 84484; 85025; 85610; 85730; 87040; 87635; 87804; 93005; 94760; 96365; 96375; 99285; G0378; J0696; J1650; J1940; J2405; J2920; J2930; J3480; J3535; J7040; J7050; J7613; J7644

== ENCOUNTER 2023-10-26 21:56 | Inpatient (IN) | payer OTHER, BC ==
[2023-10-26] MEDS ORDERED: CEFTRIAXONE 1000 MG/VIAL ONE (22:19)
[2023-10-26] MEDS ORDERED: IPRATROPIUM BROM 0.5MG/2.5ML ONE (22:19)
[2023-10-26] MEDS ORDERED: ALBUTEROL 2.5 MG/3 ML NEB SOL ONE (22:19)
[2023-10-26] MEDS ORDERED: FUROSEMIDE 40 MG/4 ML VIAL ONE (22:20)
[2023-10-26] MEDS ORDERED: CODEINE 30MG/APAP 300MG TAB ONE (22:20)
[2023-10-26] MEDS ORDERED: NA CHLORIDE 0.9% 50 ML ONE (22:20)
[2023-10-26] MEDS ORDERED: METHYLPREDNISOLONE 125 MG INJ ONE (22:20)
--- NOTE | 2023-10-26 22:40 | RAD REPORT ---
[facility] CLINICAL HISTORY: CHEST PAIN COMPARISON: Chest Single View dated 08/27/2023; Chest Single View dated 08/22/2023; Chest Single View dated 08/18/2023; Chest Single View dated 07/27/2023 TECHNIQUE: Portable AP view of the chest. FINDINGS: Decreased inspiratory effort somewhat limits evaluation. The lungs are clear. No pneumoth orax or effusion. The cardiomediastinal contours are unremarkable. IMPRESSION: No acute cardiopulmonary process.
[2023-10-26 22:53] LABS: Arterial Blood Carboxyhemoglob 3.4 % (0-1.5); Blood Gas Oxyhemoglobin 93.1 % (94-97); Blood O2 Saturation 97.9 % (92-98.5)
[2023-10-26 22:55] LABS: Absolute Eosinophils 0.1 K/uL (0-0.5); Absolute Lymphocytes (CBC) 0.9 K/uL (0.7-4.9); Absolute Monocytes 0.6 K/uL (0.1-1.3); Absolute Neutrophil 6.7 K/uL (1.8-8.0); Basophils % 0.5 % (0-1.3); Eosinophils % 1.6 % (0-4.4); Hematocrit 32.9 % (39.6-49.0); Hemoglobin 10.8 g/dL (13.6-17.9); Lymphocytes % 10.4 % (15.3-44.8); MCH 27.7 pg (27.0-35.0); MCHC 32.9 g/dL (32.0-36.0); MCV 84.3 fL (80-100); MPV 7.5 fL (7.6-11.3); Monocytes % 7.2 % (3.3-12.3); Neutrophils % 80.3 % (41.7-73.7); Nucleated Red Blood Cells % 0.1 % (0-0); Platelets 246 thou/uL (152-406); Red Cell Distribution Width 14.7 % (12.1-15.2)
[2023-10-26 23:11] LABS: PT Prothrombin Time 15.6 SECONDS (9.5-12.5); PTT, Activated Partial Thromb 38.1 SECONDS (24.3-36.9); Protime INR 1.43
[2023-10-26 23:18] LABS: Albumin 3.1 g/dL (3.4-5.0); Anion Gap 8.1 mEq/L (5.0-15.0); Bilirubin Direct 0.1 mg/dL (0-0.2); Bilirubin Indirect, Calculated 0.4 mg/dL (0.2-0.8); Bilirubin Total 0.5 mg/dL (0.2-1.0); Magnesium 1.9 mg/dL (1.6-2.4); Potassium 3.1 mEq/L (3.5-5.1); Protein, Total 6.1 g/dL (6.4-8.2)
--- NOTE | 2023-10-27 00:53 | ER ---
Nurse's Notes [facility] Name: Randolph Mckeon Age: 68 yrs Sex: Male : 1955 Arrival Date: 10/26/2023 Time: 21:56 Bed 4 Private MD: Diagnosis: COPD/ Chronic obstructive pulmonary disease with (acute) exacerbation;Respiratory distress with hypercarbia. Respiratory acidosis Presentation: 10/25 22:02 Chief complaint: Patient states: Pt reports COPD exacerbation. 90% on RA initially, was jb4 give a Duo neb 1:1 and 125 solumedrol and now sats 92% on RA. Coronavirus screen: At this time, the client does not indicate any symptoms associated with coronavirus-19. Ebola Screen: No symptoms or risks identified at this time. Risk Assessment: Do you want to hurt yourself or someone else? Patient reports no desire to harm self or others. Onset of symptoms was October 26, 2023. Transition of care: patient was not received from another setting of care. 22:02 Method Of Arrival: EMS: [facility] jb4 22:02 Acuity: YANNICK 3 jb4 22:07 Initial Sepsis Screen: Does the patient meet any 2 criteria? RR > 20 per min. HR > 90 jb4 bpm. Does the patient have a suspected source of infection? No. Patient's initial sepsis screen is negative. Historical: - Allergies: 22:05 No Known Allergies; jb4 - PMHx: 22:05 COPD; Hypertension; Pneumonia; CHF; Atrial fibrillation; jb4 - PSHx: 22:05 cyst removal on lower left limb; jb4 - Social history:: Smoking status: Patient reports the use of cigarette tobacco products, smokes one-half pack cigarettes per day. - Family history:: not pertinent. Screenin:05 [facility] ED Fall Risk Assessment (Adult) History of falling in the last 3 months, jj7 including since admission No falls in past 3 months (0 pts) Confusion or Disorientation No (0 pts) Intoxicated or Sedated No (0 pts) Impaired Gait No (0 pts) Mobility Assist Device Used No (0 pt) Altered Elimination No (0 pt) Score/Fall Risk Level 0 - 2 = Low Risk Oriented to surroundings, Maintained a safe environment, Educated pt \T\ family on fall prevention, incl call for assistance when getting out of bed. Abuse screen: Denies threats or abuse. Nutritional screening: No deficits noted. Tuberculosis screening: No symptoms or risk factors identified. Assessment: 22:05 General: Appears in no apparent distress. uncomfortable, Behavior is calm, cooperative, jj7 appropriate for age. Pain: Denies pain. Respiratory: Reports shortness of breath at rest on exertion since FOR 3 WEEKS Airway is patent Trachea midline Respiratory effort is even, Respiratory pattern is regular. 10/26 02:54 Reassessment: FAX RECEIVED BY [facility] ON 2ND FLOOR. PT WILL BE BROUGHT UP IN 30 jj7 MINUTES. Vital Signs: 10/25 22:07 BP 124 / 56; Pulse 93; Resp 26; Temp 98.8(O); Pulse Ox 100% on Nebulizer Mask; jb4 23:05 BP 128 / 69; Pulse 100; Resp 16; Pulse Ox 100% on Nebulizer Mask; jj7 10/26 00:00 BP 122 / 70; Pulse 102; Resp 23; Pulse Ox 85% ; jj7 01:00 BP 106 / 81; Pulse 108; Resp 23; Pulse Ox 90% ; jj7 02:00 BP 115 / 77; Pulse 97; Resp 24; Pulse Ox 98% on 2 lpm NC; jj7 02:59 BP 131 / 81; Pulse 96; Resp 22; Pulse Ox 96% on 2 lpm NC; Pain 0/10; jj7 03:23 BP 108 / 74; Pulse 94; Resp 22; Pulse Ox 95% ; jj7 02:59 Pain Scale: Adult jj7 [place] Coma Score: 01:55 Eye Response: spontaneous(4). Motor Response: obeys commands(6). Verbal Response: sp4 oriented(5). Total: 15. ED Course: 10/25 22:01 Patient arrived in ED. jb4 22:02 Jose Ye MD is Attending Physician. sp4 22:03 Triage completed. jb4 22:05 Arm band placed on right wrist. jb4 22:05 Patient has correct armband on for positive identification. Placed in gown. Bed in low jj7 position. Call light in reach. Side rails up X2. Client placed on continuous cardiac and pulse oximetry monitoring. NIBP monitoring applied. cafeteria monitor on. Pulse ox on. 22:15 XRAY CXR (1 view) In Process Unspecified. EDMS 22:25 Maintain EMS IV. Dressing intact. Good blood return noted. Site clean \T\ dry. Gauge \T\ jj 7 site: 20g left rg. 22:52 ABG Sent. jj7 22:52 BMP Sent. jj7 22:52 Blood Culture Adult (2) Sent. jj7 22:52 CBC with Diff Sent. jj7 22:52 CPK Sent. jj7 22:52 Hepatic Function Sent. jj7 22:52 Lipase Sent. jj7 22:52 Magnesium Sent. jj7 22:52 NT PRO-BNP Sent. jj7 22:52 PT-INR Sent. jj7 22:52 Ptt, Activated Sent. jj7 22:52 Troponin HS Sent. jj7 10/26 00:52 Pedro Lugo MD is Hospitalizing Provider. sp4 Administered Medications: 10/25 22:20 Drug: Ipratropium Inhalation Aerosol 0.5 mg Inhalation once; Every 20 min for a total jj7 of 3 treatments x3 Route: Inhalation; 22:22 Drug: Albuterol Inhalation 2.5 mg Inhalation every 20 minutes x3 Route: Inhalation; jj7 22:24 Drug: Acetaminophen-Codeine PO (300 mg-30 mg) 2 tabs PO once; RASS on ADMIN: Combtv4, jj7 Very Agttd3, Agttd2, Rstlss1, AlertClm0, Drwsy-1, Lt Sdtn-2, Mod Sdtn-3, Dp Sdtn-4, UnArsble-5 Route: PO; 23:30 Follow up: Response: Marked relief of symptoms jj7 22:30 Drug: Furosemide IVP 40 mg IVP once; give over 2 minutes Route: IVP; Site: left forearm;jj7 22:45 Follow up: Response: Marked relief of symptoms jj7 22:30 Drug: MethylPrednisoLONE IVP 125 mg IVP once Route: IVP; Site: left forearm; jj7 22:39 Drug: Rocephin - Rocephin (cefTRIAXone) IVPB 1 grams IVPB once over 30 mins; (mix in 50 jj7 mL NS) Route: IVPB; Infused Over: 30 mins; Site: left forearm; 23:10 Follow up: IV Status: Completed infusion jj7 22:58 Drug: Ipratropium Inhalation Aerosol 0.5 mg Inhalation once; Every 20 min for a total jj7 of 3 treatments x3 Route: Inhalation; 22:58 Drug: Albuterol Inhalation 2.5 mg Inhalation every 20 minutes x3 Route: Inhalation; jj7 23:20 Drug: Ipratropium Inhalation Aerosol 0.5 mg Inhalation once; Every 20 min for a total jj7 of 3 treatments x3 Route: Inhalation; 23:20 Drug: Albuterol Inhalation 2.5 mg Inhalation every 20 minutes x3 Route: Inhalation; jj7 10/26 01:30 Drug: Potassium Chloride PO 40 mEq PO once Route: PO; lg3 02:49 Follow up: Response: No adverse reaction jj7 Medication: 10/25 22:05 VIS not applicable for this client. jj7 Outcome: 10/26 00:52 Decision to Hospitalize by Provider. sp4 03:31 Patient left the ED. jb4 Signatures: Dispatcher [employer] EDNilson Mckeon RN RN jb4 Gabbi Ojeda RN RN lg3 Merlin Loaiza RN RN jj7 Jose Ye MD MD sp4
--- NOTE | 2023-10-27 00:53 | EDPHYS ---
Physician Documentation [facility] Name: Randolph Mckeon Age: 68 yrs Sex: Male : 1955 Arrival Date: 10/26/2023 Time: 21:56 Bed 4 Private MD: ED Physician Jose Ye HPI: 10/25 22:02 This 68 yrs old Male presents to ER via Unassigned with complaints of COPD sp4 exacerbation . 10/26 01:55 68-year-old male active smoker with history of COPD hypertension pneumonia CHF A-fib sp4 presents with acute worsening of his dyspnea associated with persistent cough. With EMS. Historical: - Allergies: 10/25 22:05 No Known Allergies; jb4 - PMHx: 22:05 COPD; Hypertension; Pneumonia; CHF; Atrial fibrillation; jb4 - PSHx: 22:05 cyst removal on lower left limb; jb4 - Social history:: Smoking status: Patient reports the use of cigarette tobacco products, smokes one-half pack cigarettes per day. - Family history:: not pertinent. ROS: 10/26 01:55 Constitutional: Negative for fever, chills, and weight loss, positive dyspnea, positive sp4 cough All other systems are negative, Exam: 00:59 ECG was reviewed by the Attending Physician. EKG time 215 there is normal sinus rhythm sp4 at the rate of 90 01:55 Constitutional: This is a well developed, well nourished patient who is awake, alert, sp4 dyspnea, tachypnea, signs of physical deconditioning, Head/Face: Normocephalic, atraumatic. Eyes: Pupils equal round and reactive to light, extra-ocular motions intact. Lids and lashes normal. Conjunctiva and sclera are not injected. Cornea within normal limits. Periorbital areas with no swelling, redness, or edema. ENT: Nares patent. No nasal discharge, no septal abnormalities noted. Tympanic membranes are normal and external auditory canals are clear. Oropharynx with no redness, swelling, or masses, exudates, or evidence of obstruction, uvula midline. Mucous membranes moist. Neck: Trachea midline, no thyromegaly or masses palpated, and no cervical lymphadenopathy. Supple, full range of motion without nuchal rigidity, or vertebral point tenderness. Chest/axilla: Normal chest wall appearance and motion. Nontender with no deformity. No lesions are appreciated. Cardiovascular: Regular rate and rhythm with a normal S1 and S2. No gallops, murmurs, or rubs. Normal PMI, no JVD. No pulse deficits. Respiratory: Lungs have equal breath sounds bilaterally, positive bilateral wheezing, positive expiratory wheezing in all lung [place], positive dyspnea, positive tachypnea , no retractions Abdomen/GI: Soft, with normal bowel sounds. No distension or tympany. No guarding or rebound. No evidence of tenderness throughout. Back: No spinal tenderness. No costovertebral tenderness. Skin: Warm, dry with normal turgor. Normal color with no rashes, no lesions, and no evidence of cellulitis. MS/ Extremity: Pulses equal, no cyanosis. Neurovascular intact. Full, normal range of motion. Neuro: Awake and alert, GCS 15, oriented to person, place, time, and situation. Cranial nerves II-XII grossly intact. Motor strength 5/5 in all extremities. Sensory grossly intact. Psych: Awake, alert, with orientation to person, place and time. Behavior, mood, and affect are within normal limits Vital Signs: 10/25 22:07 BP 124 / 56; Pulse 93; Resp 26; Temp 98.8(O); Pulse Ox 100% on Nebulizer Mask; 4 23:05 BP 128 / 69; Pulse 100; Resp 16; Pulse Ox 100% on Nebulizer Mask; j7 10/26 00:00 BP 122 / 70; Pulse 102; Resp 23; Pulse Ox 85% ; j7 01:00 BP 106 / 81; Pulse 108; Resp 23; Pulse Ox 90% ; j7 02:00 BP 115 / 77; Pulse 97; Resp 24; Pulse Ox 98% on 2 lpm NC; j7 02:59 BP 131 / 81; Pulse 96; Resp 22; Pulse Ox 96% on 2 lpm NC; Pain 0/10; j7 03:23 BP 108 / 74; Pulse 94; Resp 22; Pulse Ox 95% ; j7 02:59 Pain Scale: Adult [facility] [place] Coma Score: 01:55 Eye Response: spontaneous(4). Motor Response: obeys commands(6). Verbal Response: sp4 oriented(5). Total: 15. MDM: 10/25 22:04 Patient medically screened. sp4 10/26 01:55 Differential Diagnosis altered mental status, sepsis, flu, COPD exacerbation, sp4 pneumonia. Data reviewed: vital signs, nurses notes, EMS record, old medical records, lab test result(s), EKG, radiologic studies, plain films. Consideration of Admission/Observation Patient was admitted/placed on observation. Escalation of care including admission/observation considered. Management of patient was discussed with the following: Hospitalist: Brittney ZULUAGA . [facility] CLINICAL HISTORY: CHEST PAIN COMPARISON: Chest Single View dated 08/27/2023; Chest Single View dated 08/22/2023; Chest Single View dated 08/18/2023; Chest Single View dated 07/27/2023 TECHNIQUE: Portable AP view of the chest. FINDINGS: Decreased inspiratory effort somewhat limits evaluation. The lungs are clear. No pneumothorax or effusion. The cardiomediastinal contours are unremarkable. IMPRESSION: No acute cardiopulmonary process. . ED course: There is COPD exacerbation. Patient warrants admission for COPD exacerbation. 10/25 22:03 Order name: BMP; Complete Time: 00:50 [facility] 10/25 22:03 Order name: Blood Culture Adult (2) [facility] 10/25 22:03 Order name: CBC with Diff; Complete Time: 00:50 [facility] 10/25 22:03 Order name: CPK; Complete Time: 00:50 [facility] 10/25 22:03 Order name: Hepatic Function; Complete Time: 00:50 [facility] 10/25 22:03 Order name: Lipase; Complete Time: 00:50 [facility] 10/25 22:03 Order name: Magnesium; Complete Time: 00:50 [facility] 10/25 22:03 Order name: NT PRO-BNP; Complete Time: 00:50 [facility] 10/25 22:03 Order name: PT-INR; Complete Time: 00:50 [facility] 10/25 22:03 Order name: Ptt, Activated; Complete Time: 00:50 [facility] 10/25 22:03 Order name: Troponin HS; Complete Time: 00:50 [facility] 10/25 22:03 Order name: ABG; Complete Time: 00:50 [facility] 10/26 02:39 Order name: ABG Arterial Blood Gas [facility] 10/25 22:03 Order name: XRAY CXR (1 view); Complete Time: 00:50 sp4 10/25 23:01 Order name: ARTERIAL BLOOD GAS EDMS 10/25 22:03 Order name: Call RT; Complete Time: : sp4 10/25 22:03 Order name: EKG; Complete Time: 22: sp4 10/25 22:03 Order name: Cardiac monitoring; Complete Time: 22: sp4 10/25 22:03 Order name: EKG - Nurse/Tech; Complete Time: : sp4 10/25 22:03 Order name: IV Saline Lock; Complete Time: : sp4 10/25 22:03 Order name: Labs collected and sent; Complete Time: 22: sp4 10/25 22:03 Order name: O2 Per Protocol; Complete Time: : sp4 10/25 22:03 Order name: O2 Sat Monitoring; Complete Time: : sp EC:59 Rate is 90 beats/min. Rhythm is regular, Normal Sinus Rhythm. QRS [place] is Normal. HI sp4 interval is normal. QRS interval is normal. QT interval is normal. No Q waves. T waves are Normal. No ST changes noted. Clinical impression: No evidence of ischemia. Interpreted by me. Reviewed by me. Administered Medications: 10/25 22:20 Drug: Ipratropium Inhalation Aerosol 0.5 mg Inhalation once; Every 20 min for a total jj7 of 3 treatments x3 Route: Inhalation; 22:22 Drug: Albuterol Inhalation 2.5 mg Inhalation every 20 minutes x3 Route: Inhalation; jj7 22:24 Drug: Acetaminophen-Codeine PO (300 mg-30 mg) 2 tabs PO once; RASS on ADMIN: Combtv4, jj7 Very Agttd3, Agttd2, Rstlss1, AlertClm0, Drwsy-1, Lt Sdtn-2, Mod Sdtn-3, Dp Sdtn-4, UnArsble-5 Route: PO; 23:30 Follow up: Response: Marked relief of symptoms jj7 22:30 Drug: Furosemide IVP 40 mg IVP once; give over 2 minutes Route: IVP; Site: left forearm;jj7 22:45 Follow up: Response: Marked relief of symptoms jj7 22:30 Drug: MethylPrednisoLONE IVP 125 mg IVP once Route: IVP; Site: left forearm; jj7 22:39 Drug: Rocephin - Rocephin (cefTRIAXone) IVPB 1 grams IVPB once over 30 mins; (mix in 50 jj7 mL NS) Route: IVPB; Infused Over: 30 mins; Site: left forearm; 23:10 Follow up: IV Status: Completed infusion jj7 22:58 Drug: Ipratropium Inhalation Aerosol 0.5 mg Inhalation once; Every 20 min for a total jj7 of 3 treatments x3 Route: Inhalation; 22:58 Drug: Albuterol Inhalation 2.5 mg Inhalation every 20 minutes x3 Route: Inhalation; jj7 23:20 Drug: Ipratropium Inhalation Aerosol 0.5 mg Inhalation once; Every 20 min for a total jj7 of 3 treatments x3 Route: Inhalation; 23:20 Drug: Albuterol Inhalation 2.5 mg Inhalation every 20 minutes x3 Route: Inhalation; jj7 10/26 01:30 Drug: Potassium Chloride PO 40 mEq PO once Route: PO; lg3 02:49 Follow up: Response: No adverse reaction jj7 Disposition Summary: 10/27/23 00:52 Hospitalization Ordered Notes: Hospitalization Status: Inpatient Admission sp4 Provider: Pedro Lugo sp4 Location: Telemetry/[facility]Sur (Inpatient) sp4 Condition: Fair sp4 Problem: new sp4 Symptoms: have improved sp4 Bed/Room Type: Standard sp4 Room Assignment: 216(10/27/23 02:25) jb4 Diagnosis - COPD/ Chronic obstructive pulmonary disease with (acute) exacerbation sp4 - Respiratory distress with hypercarbia. Respiratory acidosis sp4 Forms: - Medication Reconciliation Form sp4 - SBAR form sp4 - Leadership Thank You Letter sp4 Signatures: Dispatcher [employer] Nilson Meredith RN RN jb4 Gabbi Ojeda RN RN lg3 Merlin Loaiza RN RN jj7 Jose Ye MD MD sp4 Corrections: (The following items were deleted from the chart) 02:24 00:52 sp4 lg3 02:25 02:24 216 lg3 jb4
[2023-10-27] MEDS ORDERED: POTASSIUM CL SA 10 MEQ TAB PO ONE (01:25)
[2023-10-27] MEDS ORDERED: ACETAMINOPHEN 325 MG TABLET PO PRN (01:39)
[2023-10-27] MEDS ORDERED: ONDANSETRON 4 MG/2 ML VIAL IV PRN (01:39)
[2023-10-27] MEDS ORDERED: ALPRAZOLAM 0.25 MG TABLET PO PRN (01:39)
[2023-10-27] MEDS ORDERED: MAGNESIUM HYDROXIDE 8% 30 ML PO PRN (01:39)
[2023-10-27 02:38] LABS: Arterial Blood Carboxyhemoglob 2.6 % (0-1.5); Blood Gas Oxyhemoglobin 89.4 % (94-97); Blood Gas THB 11.9 g/dl (12-18); Blood O2 Saturation 93.3 % (92-98.5)
--- NOTE | 2023-10-27 02:58 | P.HP ---
Certification for Inpatient Patient admitted to: Observation With expected LOS: <2 Midnights Practitioner: I am a practitioner with admitting privileges, knowledge of patient current condition, hospital course, and medical plan of care. Services: Services provided to patient in accordance with Admission requirements found in Title 42 Section 412.3 of the Code of Federal Regulations Patient History Date of Service: 10/27/23 Reason for admission: Shortness of breath, COPD exacerbation. History of Present Illness: 68-year-old male patient with medical history significant for hypertension, benign prostatic hypertrophy, hyperlipidemia, history of COPD who follows up with pulmonary physician who was evaluated for episode of COPD exacerbation. He complains of cough and shortness of breath and imaging studies done in the ED was not overtly concerning for pneumonia. He was started on steroid therapy and breathing treatment and he was admitted for in hospital care. Allergies No Known Allergies Allergy (Verified 08/24/23 01:59) Home Medications: Amlodipine [Norvasc*] 10 mg PO DAILY 02/22/23 Apixaban [Eliquis] 5 mg PO BID 02/22/23 Spironolactone 25 mg PO DAILY 02/22/23 Roflumilast [Daliresp*] 500 mcg PO DAILY 30 Days #30 tab 05/20/23 Tamsulosin [Flomax*] 0.4 mg PO BEDTIME 06/29/23 Fluticasone/Umeclidin/Vilanter [Trelegy Ellipta 100-62.5-25] 1 each IH DAILY #1 inh 08/20/23 Ipratropium/Albuterol Sulfate [Iprat-Albut 0.5-3(2.5) mg/3 ml] 3 ml IH Q6H PRN #120 amp 08/20/23 predniSONE [Deltasone*] 10 mg PO DAILY #30 tab 08/20/23 Albuterol Inhaler [Ventolin Inhaler*] 2 puff IH Q6H PRN #2 inhaler 08/27/23 Nebulizer 1 each MC ONCE #1 ea 08/27/23 acetaZOLAMIDE [Diamox] 250 mg PO BID #60 tab 08/27/23 - Past Medical/Surgical History Diabetic: No -: COPD -: Hypertension -: Alcohol abuse -: Hyponatremia -: Diastolic CHF -: Pneumonia -: A-fibon chronic anticoagulation -: Hernia repair -: left leg wound -: Left foot cancer removal Psychosocial/ Personal History: Patient is . He lives at home and has home health. - Family History Father -: Heart disease Brother -: Lung disease - Social History Alcohol use: No CD- Drugs: No Caffeine use: No Review of Systems General: Malaise Eyes: Unremarkable ENT: Unremarkable Respiratory: Unremarkable Cardiovascular: Unremarkable Gastrointestinal: Unremarkable Genitourinary: Unremarkable Musculoskeletal: Unremarkable Integumentary: Unremarkable Neurological: Unremarkable Lymphatics: Unremarkable Physical Examination - Physical Exam General: Alert, Oriented x3 HEENT: Atraumatic Neck: Supple Respiratory: Diminished Cardiovascular: Regular rate/rhythm, Normal S1 S2 Gastrointestinal: Soft and benign Musculoskeletal: No swelling Neurological: Normal speech, Normal strength at 5/5 x4 extr - Studies Laboratory Data (last 24 hrs) 10/26/23 10/26/23 10/26/23 22:25 22:25 22:25 WBC 8.40 Hgb 10.8 L Hct 32.9 L Plt Count 246 PT 15.6 H INR 1.43 APTT 38.1 H Sodium 137 Potassium 3.1 L BUN 15 Creatinine 1.18 Glucose 124 H Magnesium 1.9 Total Bilirubin 0.5 AST 12 L ALT 16 Alkaline Phosphatase 78 Lipase 26 Assessment and Plan - Plan COPD exacerbation: Deemed partially due to smoke inhalation as patient is actively smoking and suspicion for underlying pneumonia. Will continue empiric antibiotic therapy with Rocephin and azithromycin. Will continue steroid therapy for management of inflammation. Will continue to discourage smoking. Patient will be started on nicotine patch for nicotine withdrawal. As needed breathing treatment with DuoNeb to be continued. Home inhalational therapy for COPD management will be continued. Respiratory failure with hypercapnia: pH is low at 7.3 and pCO2 is elevated at 66. Will have on as needed BiPAP/CPAP for management. History of hypertension: We will monitor vital signs per unit protocol continue outpatient antihypertensive medications. History of benign prostatic hypertrophy: Will continue tamsulosin dose. Prophylaxis: Lovenox for DVT prophylaxis CODE STATUS: Full code Disposition: We will treat his COPD exacerbation and he will be discharged once deemed clinically stable for outpatient therapy. - Advance Directives Does patient have a Living Will: No Does patient have a Durable POA for Healthcare: No
[2023-10-27] MEDS: METHYLPREDNISOLONE 40 MG INJ IV SCH (04:36)
[2023-10-27 04:49] VITALS: BMI 29.2
--- NOTE | 2023-10-27 04:56 | P.PN ---
Subjective Date of Service: 10/27/23 Chief Complaint: Shortness of breath, COPD exacerbation. 2 L on nasal cannula satting 90% Physical Exam General: Alert, Oriented x3 HEENT: Atraumatic Neck: Supple Respiratory: Diminished, equal unlabored Cardiovascular: Regular rate/rhythm, Normal S1 S2 Gastrointestinal: Soft and benign Musculoskeletal: No swelling Neurological: Normal speech, Normal strength at 5/5 x4 extr <TimboZonia vazquez - Last Filed: 10/27/23 17:38> Date of Service: 10/27/23 <Juanita Gironl - Last Filed: 10/29/23 16:18> Review of Systems HPI <ChetanZonia - Last Filed: 10/27/23 17:38> Physical Examination - Vital Signs Temperature: 98.8 F Blood Pressure: 108/74 Pulse: 94 Respirations: 22 - Studies Laboratory Data (last 24 hrs) 10/26/23 10/26/23 10/26/23 22:25 22:25 22:25 WBC 8.40 Hgb 10.8 L Hct 32.9 L Plt Count 246 PT 15.6 H INR 1.43 APTT 38.1 H Sodium 137 Potassium 3.1 L BUN 15 Creatinine 1.18 Glucose 124 H Magnesium 1.9 Total Bilirubin 0.5 AST 12 L ALT 16 Alkaline Phosphatase 78 Lipase 26 <ChetanZonia - Last Filed: 10/27/23 17:38> Assessment And Plan - Plan - Plan COPD exacerbation: Acute hypoxic respiratory failure with hypercapnia Tobacco use Deemed partially due to smoke inhalation as patient is actively smoking and suspicion for underlying pneumonia. Will continue empiric antibiotic therapy with Rocephin and azithromycin. Will continue steroid therapy for management of inflammation. Will continue to discourage smoking. Patient will be started on nicotine patch for nicotine withdrawal. As needed breathing treatment with DuoNeb to be continued. Home inhalational therapy for COPD management will be continued. ABG pH is low at 7.3 and pCO2 is elevated at 66. Will have on as needed BiPAP/CPAP for management. Educated on tobacco cessation Blood cultures pending report Hypokalemia Trend electrolytes replace as needed Atrial fibrillation on chronic anticoagulation Resume home Eliquis History of hypertension: We will monitor vital signs per unit protocol continue outpatient antihypertensive medications. History of benign prostatic hypertrophy: Will continue tamsulosin dose. Prophylaxis: Eliquis CODE STATUS: Full code Disposition: Plan to discharge home with home health Discharge Plan: Home - Code Status/Comfort Care Code Status: Full Code Critical Care: No Time Spent Managing PTS Care (In Minutes): 35 <Zonia Benton - Last Filed: 10/27/23 17:38> Date of Service: 10/27/23 Patient seen and examined. Patient clinically remains short of breath. Continue with nebs and steroids. Continue with BiPAP support as needed. Patient with home oxygen and arrange for discharge planning over the next few days. <Juanita Giron - Last Filed: 10/29/23 16:18>
[2023-10-27 05:50] LABS: Arterial Blood Carboxyhemoglob 2.5 % (0-1.5); Blood Gas Oxyhemoglobin 90.6 % (94-97); Blood O2 Saturation 93.3 % (92-98.5)
[2023-10-27 05:51] LABS: Blood Gas THB 11.9 g/dl (12-18)
[2023-10-27 09:45] LABS: Anion Gap 7.3 mEq/L (5.0-15.0); Magnesium 1.9 mg/dL (1.6-2.4); Potassium 4.3 mEq/L (3.5-5.1)
[2023-10-27] MEDS: ENOXAPARIN 40 MG/0.4 ML SQ SCH (10:04)
[2023-10-27 10:53] LABS: Arterial Blood Carboxyhemoglob 1.9 % (0-1.5); Blood Gas Oxyhemoglobin 94.2 % (94-97); Blood Gas THB 11.9 g/dl (12-18); Blood O2 Saturation 97.4 % (92-98.5)
[2023-10-27] MEDS: IPRATROPIUM BROM 0.5MG/2.5ML NEB PRN (15:35)
[2023-10-27] MEDS: ALBUTEROL 2.5 MG/3 ML NEB SOL NEB PRN (15:35)
[2023-10-27] MEDS: acetaZOLAMIDE 250 MG TAB PO SCH (20:57)
[2023-10-27] MEDS: TAMSULOSIN 0.4 MG SR CAP PO SCH (20:57)
[2023-10-27] MEDS: APIXABAN 5 MG TABLET PO SCH (20:57)
[2023-10-28 05:39] LABS: Anion Gap 7.3 mEq/L (5.0-15.0); Magnesium 2.1 mg/dL (1.6-2.4); Potassium 4.3 mEq/L (3.5-5.1)
--- NOTE | 2023-10-28 07:55 | P.PN ---
Subjective Date of Service: 10/28/23 Chief Complaint: Shortness of breath, COPD exacerbation. 2 L on nasal cannula satting 90%, shortness of breath with exertion, Plan to return home with home health, has rolling walker at home independent prior Physical Exam General: Alert, Oriented x3 HEENT: Atraumatic Neck: Supple Respiratory: Diminished, equal unlabored, productive Cardiovascular: Regular rate/rhythm, Normal S1 S2 Gastrointestinal: Soft and benign Musculoskeletal: No swelling Neurological: Normal speech, Normal strength at 5/5 x4 extr <Zonia Benton - Last Filed: 10/28/23 15:45> Date of Service: 10/28/23 <Juanita Gironl - Last Filed: 10/29/23 16:19> Review of Systems Per HPI <Zonia Benton - Last Filed: 10/28/23 15:45> Physical Examination - Vital Signs Temperature: 98.1 F Blood Pressure: 140/73 Pulse: 77 Respirations: 20 Pulse Ox (%): 94 <Zonia Benton - Last Filed: 10/28/23 15:45> Assessment And Plan - Plan - Plan COPD exacerbation: Acute hypoxic respiratory failure with hypercapnia Tobacco use Deemed partially due to smoke inhalation as patient is actively smoking and suspicion for underlying pneumonia. Will continue empiric antibiotic therapy with Rocephin and azithromycin. Will continue steroid therapy for management of inflammation. Will continue to discourage smoking. Patient will be started on nicotine patch for nicotine withdrawal. As needed breathing treatment with DuoNeb to be continued. Home inhalational therapy for COPD management will be continued. ABG pH is low at 7.3 and pCO2 is elevated at 66. Will have on as needed BiPAP/CPAP for management. Educated on tobacco cessation Blood cultures pending report Resume home trilogy, Pulmonary consult Hypokalemia improved Trend electrolytes replace as needed Atrial fibrillation on chronic anticoagulation Resume home Eliquis Microcytic anemia 10.8, 32 point Trend H&H History of hypertension: We will monitor vital signs per unit protocol continue outpatient antihypertensive medications. History of benign prostatic hypertrophy: Will continue tamsulosin dose. Prophylaxis: Eliquis CODE STATUS: Full code Disposition: Plan to discharge home with home health Discharge Plan: Home - Code Status/Comfort Care Code Status: Full Code Critical Care: No Time Spent Managing PTS Care (In Minutes): 35 <Zonia Benton - Last Filed: 10/28/23 15:45> Date of Service: 10/28/23 Patient seen and examined. Patient clinically doing better. Family at bedside. Patient respiratory status has improved. Continue with nebs and steroids. Continue with BiPAP support as needed. Patient with home oxygen and arrange for discharge planning over the next few days. <Juanita Giron - Last Filed: 10/29/23 16:19>
[2023-10-28] MEDS: Fluticasone/Umeclidin/Vilanter [Trelegy Ellipta 100-62.5-25] Blst.W.Dev IH SCH (09:00)
[2023-10-28] MEDS: SPIRONOLACTONE 25 MG TABLET PO SCH (11:16)
[2023-10-28] MEDS: ROFLUMILAST 500 MCG TABLET PO SCH (11:16)
[2023-10-28] MEDS: AMLODIPINE 10 MG TAB PO SCH (11:16)
--- NOTE | 2023-10-28 14:19 | EKG ---
Test Date: 2023-10-26 Test Time: 21:56:07 Supervisor Electric: RV MEASUREMENT RESULTS: Intervals: Rate: 90 WV: 192 QRSD: 94 QT: 348 QTc: 425 Logan: P: 58 WV: 192 QRS: 23 T: 51 INTERPRETIVE STATEMENTS: Normal sinus rhythm Incomplete right bundle branch block Borderline ECG Compared to ECG 08/27/2023 15:24:32 Incomplete right bundle-branch block now present Atrial fibrillation no longer present ST (T wave) deviation no longer present Electronically Signed On 10-28-23 14:14:05 [employer] by Curtis Sotelo
[2023-10-29 07:08] LABS: Anion Gap 6.3 mEq/L (5.0-15.0); Magnesium 2.2 mg/dL (1.6-2.4); Potassium 4.3 mEq/L (3.5-5.1)
--- NOTE | 2023-10-29 08:22 | P.PN ---
Subjective Date of Service: 10/29/23 Chief Complaint: Shortness of breath, COPD exacerbation. 2 L on nasal cannula satting 90%, shortness of breath with exertion, productive cough Plan to return home with home health, has rolling walker at home independent prior Physical Exam General: Alert, Oriented x3 HEENT: Atraumatic Neck: Supple Respiratory: Diminished, equal unlabored, productive Cardiovascular: Regular rate/rhythm, Normal S1 S2 Gastrointestinal: Soft and benign Musculoskeletal: No swelling Neurological: Normal speech, Normal strength at 5/5 x4 extr <Zonia Benton - Last Filed: 10/29/23 08:19> Date of Service: 10/29/23 <Juanita Gironl - Last Filed: 10/29/23 16:20> Review of Systems Per HPI <Zonia Benton - Last Filed: 10/29/23 08:19> Physical Examination - Vital Signs Temperature: 96.9 F Blood Pressure: 119/72 Pulse: 86 Respirations: 20 Pulse Ox (%): 0 <Zonia Benton - Last Filed: 10/29/23 08:19> Assessment And Plan - Plan - Plan COPD exacerbation: Acute hypoxic respiratory failure with hypercapnia Tobacco use Deemed partially due to smoke inhalation as patient is actively smoking and suspicion for underlying pneumonia. Will continue empiric antibiotic therapy with Rocephin and azithromycin. Will continue steroid therapy for management of inflammation. Will continue to discourage smoking. Patient will be started on nicotine patch for nicotine withdrawal. As needed breathing treatment with DuoNeb to be continued. Home inhalational therapy for COPD management will be continued. ABG pH is low at 7.3 and pCO2 is elevated at 66. Will have on as needed BiPAP/CPAP for management. Educated on tobacco cessation Blood cultures pending report Resume home trilogy, Pulmonary consult Hypokalemia improved Trend electrolytes replace as needed Atrial fibrillation on chronic anticoagulation Resume home Eliquis Microcytic anemia 10.8, 32 point Trend H&H History of hypertension: We will monitor vital signs per unit protocol continue outpatient antihypertensive medications. History of benign prostatic hypertrophy: Will continue tamsulosin dose. Prophylaxis: Eliquis CODE STATUS: Full code Disposition: Plan to discharge home with home health Discharge Plan: Home - Code Status/Comfort Care Code Status: Full Code Critical Care: No Time Spent Managing PTS Care (In Minutes): 35 <Zonia Benton Last Filed: 10/29/23 08:19> Date of Service: 10/29/23 Patient seen and examined. Patient clinically doing better. Patient states his respirations are little worse today. Arranging for discharge planning. Anticipate discharge in the morning. <Junaita Giron - Last Filed: 10/29/23 16:20>
--- NOTE | 2023-10-29 08:42 | P.CNS ---
Date of Consult: 10/29/23 Reason for Consult: COPD exacerbation Chief Complaint: Shortness of breath, COPD exacerbation. History of Present Illness: Patient is 68 years of age recurrent hospital admissions for COPD exacerbation patient has now resumed smoking is noncompliant with his NIV at home sick for the past 4 days worsening shortness of breath dyspnea eyes any cough fever sputum or chills Allergies No Known Allergies Allergy (Verified 10/27/23 03:53) Home Medications: Amlodipine [Norvasc*] 10 mg PO DAILY 02/22/23 Apixaban [Eliquis] 5 mg PO BID 02/22/23 Spironolactone 25 mg PO DAILY 02/22/23 Roflumilast [Daliresp*] 500 mcg PO DAILY 30 Days #30 tab 05/20/23 Tamsulosin [Flomax*] 0.4 mg PO BEDTIME 06/29/23 Fluticasone/Umeclidin/Vilanter [Trelegy Ellipta 100-62.5-25] 1 each IH DAILY #1 inh 08/20/23 Ipratropium/Albuterol Sulfate [Iprat-Albut 0.5-3(2.5) mg/3 ml] 3 ml IH Q6H PRN #120 amp 08/20/23 predniSONE [Deltasone*] 10 mg PO DAILY #30 tab 08/20/23 Albuterol Inhaler [Ventolin Inhaler*] 2 puff IH Q6H PRN #2 inhaler 08/27/23 Nebulizer 1 each MC ONCE #1 ea 08/27/23 acetaZOLAMIDE [Diamox] 250 mg PO BID #60 tab 08/27/23 - Past Medical/Surgical History Diabetic: No -: COPD -: Hypertension -: Alcohol abuse -: Hyponatremia -: Diastolic CHF -: Pneumonia -: A-fibon chronic anticoagulation -: Hernia repair -: left leg wound -: Left foot cancer removal Psychosocial/ Personal History: Patient is . He lives at home and has home health. - Family History Father Medical History: Heart disease Brother Medical History: Lung disease - Social History Smoking Status: Current every day smoker Alcohol use: No CD- Drugs: No Caffeine use: No Place of Residence: Home Review of Systems 10-point ROS is otherwise unremarkable General: Weakness Respiratory: Cough, Shortness of Breath Physical Examination Temp Pulse Resp BP Pulse Ox 96.9 F 86 20 119/72 0 L 10/29/23 08:21 10/29/23 08:21 10/29/23 08:21 10/29/23 08:21 10/29/23 08:21 General: Alert, Mild distress Respiratory: Expiratory wheezes Cardiovascular: No edema, Regular rate/rhythm, Normal S1 S2 Gastrointestinal: Normal bowel sounds, Soft and benign Musculoskeletal: No clubbing, No swelling Integumentary: No rashes, No breakdown - Problems (1) Acute and chronic respiratory failure Current Visit: Yes Status: Acute Plan: Patient is 68 years of age with a history of terminal COPD recurrent hospital admissions patient has resumed smoking noncompliant with NIV he has audible wheezing chest x-ray is clear labs all reviewed trial of BiPAP while in the hospital have advised the patient to use his NIV I will be returned continue with bronchodilator therapy home medications possible discharge a.m. Qualifiers: Respiratory failure complication: hypoxia and hypercapnia Qualified Code(s): J96.21 - Acute and chronic respiratory failure with hypoxia; J96.22 - Acute and chronic respiratory failure with hypercapnia
[2023-10-29 09:03] LABS: Absolute Lymphocytes (CBC) 0.8 K/uL (0.7-4.9); Absolute Monocytes 0.9 K/uL (0.1-1.3); Absolute Neutrophil 10.2 K/uL (1.8-8.0); Hematocrit 35.7 % (39.6-49.0); Hemoglobin 11.4 g/dL (13.6-17.9); Lymphocytes % 6.5 % (15.3-44.8); MCH 27.2 pg (27.0-35.0); MCV 84.8 fL (80-100); MPV 7.8 fL (7.6-11.3); Monocytes % 7.6 % (3.3-12.3); Neutrophils % 85.9 % (41.7-73.7); Platelets 276 thou/uL (152-406); RBC Red Blood Cell Count 4.21 M/uL (4.33-5.43); Red Cell Distribution Width 14.7 % (12.1-15.2)
[2023-10-29 09:42] LABS: Blood Morphology Comment NOT SEEN (NOT SEEN); Platelet Estimate ADEQ; White Blood Cell Scan OK (OK)
[2023-10-29] MEDS: FUROSEMIDE 20 MG/ 2ML VIAL IV ONE (11:04)
[2023-10-29] MEDS: ALBUTEROL 2.5 MG/3 ML NEB SOL NEB SCH (13:18)
[2023-10-29] MEDS: IPRATROPIUM BROM 0.5MG/2.5ML NEB SCH (13:18)
[2023-10-29] MEDS: FUROSEMIDE 20 MG/ 2ML VIAL IV SCH (17:21)
[2023-10-30 04:20] VITALS: O2SAT 94
--- NOTE | 2023-10-30 06:59 | P.DS ---
Admission Date: 10/28/23 Discharge Date: 10/30/23 Disposition: ROUTINE DISCHARGE Discharge Condition: GOOD Reason for Admission: Shortness of breath, COPD exacerbation. Brief History of Present Illness: 68-year-old male patient with medical history significant for hypertension, benign prostatic hypertrophy, hyperlipidemia, history of COPD who follows up with pulmonary physician who was evaluated for episode of COPD exacerbation. He complains of cough and shortness of breath and imaging studies done in the ED was not overtly concerning for pneumonia. He was started on steroid therapy and breathing treatment and he was admitted f or in hospital care. Physical Exam General: Alert, Oriented x3 HEENT: Atraumatic Neck: Supple Respiratory: Diminished, equal unlabored, productive Cardiovascular: Regular rate/rhythm, Normal S1 S2 Gastrointestinal: Soft and benign Musculoskeletal: No swelling Neurological: Normal speech, Normal strength at 5/5 x4 extr Hospital Course: 68 year old male year with medical history significant for hypertension, benign prostatic hypertrophy, hyperlipidemia, history of COPD presented with Was noted to have COPD exacerbation. Was evaluated by pulmonary. Condition improved with steroids, nebulizers, oxygen, BiPAP. Condition improved on treatment plan, Patient tolerating diet, stable for discharge to home with follow-up appointment with primary care physician, follow-up with pulmonary after discharge. PROBLEM: COPD exacerbation Acute respiratory failure with hypercapnia Continue home medicines as previously prescribed GOAL: Clear understanding of disease process INSTRUCTIONS: -Follow-up with PCP in 1 to 2 weeks -Please call Dr. Giron at [phone] if any questions regarding hospital stay -Please call nursing station at [phone] if any nursing or medication questions -Return to the emergency room if symptoms worsen Diet: ADA, low sodium Activity: Fall precautions Vital Signs/Physical Exam: Temp Pulse Resp BP Pulse Ox 96.3 F L 64 20 117/65 96 10/30/23 04:00 10/30/23 04:00 10/30/23 04:00 10/30/23 04:00 10/30/23 04:00 Laboratory Data at Discharge: WBC 11.90 thou/uL (4.3-10.9) H 10/29/23 06:22 Hgb 11.4 g/dL (13.6-17.9) L 10/29/23 06:22 Hct 35.7 % (39.6-49.0) L 10/29/23 06:22 Plt Count 276 thou/uL (152-406) 10/29/23 06:22 PT 15.6 SECONDS (9.5-12.5) H 10/26/23 22:25 INR 1.43 10/26/23 22:25 APTT 38.1 SECONDS (24.3-36.9) H 10/26/23 22:25 Sodium 138 mEq/L (136-145) 10/29/23 06:22 Potassium 4.3 mEq/L (3.5-5.1) 10/29/23 06:22 BUN 17 mg/dL (7-18) 10/29/23 06:22 Creatinine 0.76 mg/dL (0.70-1.30) 10/29/23 06:22 Glucose 142 mg/dL (74-106) H 10/29/23 06:22 Magnesium 2.2 mg/dL (1.6-2.4) 10/29/23 06:22 Total Bilirubin 0.5 mg/dL (0.2-1.0) 10/26/23 22:25 AST 12 U/L (15-37) L 10/26/23 22:25 ALT 16 U/L (16-61) 10/26/23 22:25 Alkaline Phosphatase 78 U/L (45-117) 10/26/23 22:25 Lipase 26 U/L (13-75) 10/26/23 22:25 Home Medications: Amlodipine [Norvasc*] 10 mg PO DAILY 02/22/23 Apixaban [Eliquis] 5 mg PO BID 02/22/23 Spironolactone 25 mg PO DAILY 02/22/23 Roflumilast [Daliresp*] 500 mcg PO DAILY 30 Days #30 tab 05/20/23 Tamsulosin [Flomax*] 0.4 mg PO BEDTIME 06/29/23 Fluticasone/Umeclidin/Vilanter [Trelegy Ellipta 100-62.5-25] 1 each IH DAILY #1 inh 08/20/23 Ipratropium/Albuterol Sulfate [Iprat-Albut 0.5-3(2.5) mg/3 ml] 3 ml IH Q6H PRN #120 amp 08/20/23 predniSONE [Deltasone*] 10 mg PO DAILY #30 tab 08/20/23 Albuterol Inhaler [Ventolin Inhaler*] 2 puff IH Q6H PRN #2 inhaler 08/27/23 Nebulizer 1 each MC ONCE #1 ea 08/27/23 acetaZOLAMIDE [Diamox] 250 mg PO BID #60 tab 08/27/23 Physician Discharge Instructions: [facility] ([facility]) P:[phone] F:[phone] Efax:[phone] Followup: Meaghan Chisholm DO [Primary Care Provider] -
[2023-10-30 09:13] VITALS: BP 106/58; TEMP 98.1
[2023-10-30 09:18] LABS: Absolute Lymphocytes (CBC) 0.7 K/uL (0.7-4.9); Absolute Monocytes 0.6 K/uL (0.1-1.3); Absolute Neutrophil 11.2 K/uL (1.8-8.0); Basophils % 0.2 % (0-1.3); Hematocrit 38.7 % (39.6-49.0); Hemoglobin 12.3 g/dL (13.6-17.9); Lymphocytes % 5.5 % (15.3-44.8); MCH 27.1 pg (27.0-35.0); MCHC 31.8 g/dL (32.0-36.0); MCV 85.2 fL (80-100); MPV 7.7 fL (7.6-11.3); Monocytes % 4.7 % (3.3-12.3); Neutrophils % 89.6 % (41.7-73.7); Platelets 307 thou/uL (152-406); RBC Red Blood Cell Count 4.54 M/uL (4.33-5.43); Red Cell Distribution Width 14.8 % (12.1-15.2)
[2023-10-30 09:39] LABS: Anion Gap 5.4 mEq/L (5.0-15.0); Magnesium 2.2 mg/dL (1.6-2.4); Potassium 4.4 mEq/L (3.5-5.1)
== END 2023-10-30 11:35 | disposition home health service (06) | DRG 189 ==
LOC: ER 21:56 → ERHOLD 10-27 01:39 → 2ND 10-27 02:49 → OBSVTOIN 10-28 12:11 → 4TH 10-28 15:11
PROVIDERS: ADMIT Internal Medicine Nephrology; ATTEND Hospitalist
PROC: 4A033R1 Measurement of Arterial Saturation, Peripheral, Percutaneous Approach (ICD-10-PCS; 2023-10-28)
PROC: 5A09357 Assistance with Respiratory Ventilation, Less than 24 Consecutive Hours, Continuous Positive Airway Pressure (ICD-10-PCS; principal; 2023-10-29)
DX: J96.22 Acute and chronic respiratory failure with hypercapnia (principal); J44.1 Chronic obstructive pulmonary disease with (acute) exacerbation; E87.29 Other acidosis; R78.81 Bacteremia; I50.32 Chronic diastolic (congestive) heart failure; I11.0 Hypertensive heart disease with heart failure; J96.21 Acute and chronic respiratory failure with hypoxia; I48.91 Unspecified atrial fibrillation; E78.5 Hyperlipidemia, unspecified; D50.9 Iron deficiency anemia, unspecified; E87.6 Hypokalemia; N40.0 Benign prostatic hyperplasia without lower urinary tract symptoms; F17.210 Nicotine dependence, cigarettes, uncomplicated; B95.4 Other streptococcus as the cause of diseases classified elsewhere; Z63.5 Disruption of family by separation and divorce; Z79.52 Long term (current) use of systemic steroids; Z79.01 Long term (current) use of anticoagulants; Z79.899 Other long term (current) drug therapy; Z91.148 Patient's other noncompliance with medication regimen for other reason
CPT/HCPCS: 36415; 36600; 71045; 80048; 80076; 82550; 82805; 83690; 83735; 83880; 84484; 85025; 85610; 85730; 87040; 87077; 87186; 87205; 93005; 94640; 94660; 96365; 96375; 97116; 97161; 99285; G0378; J0696; J1650; J1940; J2920; J2930; J7613; J7644

== ENCOUNTER 2023-11-11 15:49 | Inpatient (IN) | payer OTHER, BC ==
[2023-11-11] MEDS ORDERED: IPRATROPIUM BROM 0.5MG/2.5ML ONE (17:13)
[2023-11-11] MEDS ORDERED: LEVALBUTEROL 1.25 MG/3 ML NEB ONE ×2 (17:13→18:13)
[2023-11-11] MEDS ORDERED: METHYLPREDNISOLONE 125 MG INJ ONE (17:13)
[2023-11-11] MEDS ORDERED: Levofloxacin500mg IV 500 MG/100 ML BAG IV ONE (17:14)
[2023-11-11] MEDS ORDERED: Magnesium Sulfate 2gm IVPB 2 G/50 ML BAG IV ONE (17:14)
[2023-11-11] MEDS ORDERED: FAMOTIDINE 20 MG/2 ML VIAL IV ONE (17:14)
--- NOTE | 2023-11-11 17:20 | RAD REPORT ---
EXAM DESCRIPTION: Kira Single View11/11/2023 5:06 pm CLINICAL HISTORY: Chest pain COMPARISON: October 26, 2023 FINDINGS: Mild chronic appearing interstitial lung opacities. The lungs appear clear of acute infiltrate. The heart is normal size IMPRESSION: No acute abnormalities displayed
--- NOTE | 2023-11-11 17:23 | ER ---
Nurse's Notes [facility] Name: Randolph Mckeon Age: 68 yrs Sex: Male : 1955 Arrival Date: 11/11/2023 Time: 15:49 Bed 18 Private MD: Diagnosis: Acute and chronic respiratory failure with hypoxia;Tobacco abuse counseling;Tobacco use;Edema, unspecified;Paroxysmal atrial fibrillation;retirement (current) use of anticoagulants;COPD/ Chronic obstructive pulmonary disease with (acute) exacerbation;Elevated white blood cell count;Hypo-osmolality and hyponatremia-129;Anemia, unspecified Presentation: 11/10 16:04 Chief complaint: Patient states: Pt arrived from his follow up visit after being kd3 discharged from the hospital for COPD exacerbation. Pt reportedly was in the 60's for O2 sat on room air and brought to ED. Pt brought back from the lobby right away, was noted to be 68% on room air with audible wheezing. pt placed on non rebreather mask, RT paged, EKG done. 16:06 Coronavirus screen: unknown. Ebola Screen: No symptoms or risks identified at this kd3 time. Initial Sepsis Screen: Does the patient meet any 2 criteria? RR > 20 per min. HR > 90 bpm. Does the patient have a suspected source of infection? No. Patient's initial sepsis screen is negative. Risk Assessment: Do you want to hurt yourself or someone else? Patient reports no desire to harm self or others. Onset of symptoms was November 11, 2023. 16:06 Method Of Arrival: Wheelchair kd3 16:06 Acuity: YANNICK 2 kd3 Triage Assessment: 16:08 General: Appears distressed, ill, Behavior is calm, cooperative. Pain: Denies pain. kd3 Respiratory: Reports shortness of breath Onset: The symptoms/episode began/occurred today, the patient has severe shortness of breath. Historical: - PMHx: 16:08 Atrial fibrillation; CHF; COPD; Hypertension; Hypertension; Pneumonia; kd3 - PSHx: 16:08 cyst removal on lower left limb; kd3 - Immunization history:: Adult Immunizations up to date. - Social history:: Smoking status: Patient reports the use of cigarette tobacco products, smokes one-half pack cigarettes per day. Screenin:10 [facility] ED Fall Risk Assessment (Adult) History of falling in the last 3 months, bp including since admission No falls in past 3 months (0 pts). Abuse screen: Denies threats or abuse. Denies injuries from another. Nutritional screening: No deficits noted. Tuberculosis screening: No symptoms or risk factors identified. Assessment: 16:10 General: Appears distressed, ill, Behavior is calm, cooperative, appropriate for age. bp Cardiovascular: Rhythm is sinus tachycardia. Respiratory: Airway is patent Respiratory effort is labored, Breath sounds with wheezes bilaterally. 16:14 Reassessment: BIPAP SETTINGS 14/6 FIO2 45% RATE 16. bp 20:00 Reassessment: Patient appears in no apparent distress at this time. Resting/sleeping. nj1 Vital Signs: 16:06 BP 135 / 88; Pulse 106; Resp 27; Temp 98.1(TE); Pulse Ox 95% on Non-rebreather mask; kd3 Weight 95.25 kg; Height 5 ft. 11 in. ; 20:00 BP 131 / 73; Pulse 93; Resp 24; Pulse Ox 95% on BiPAP; nj1 21:22 BP 130 / 68; Pulse 87; Resp 20; Pulse Ox 97% on BiPAP; nj1 16:06 Body Mass Index 29.29 (95.25 kg, 180.34 cm) kd3 ED Course: 15:50 Patient arrived in ED. mg5 16:07 Sanchez Sweet, SAMEER is Primary Nurse. bp 16:08 Triage completed. kd3 16:08 Arm band placed on right wrist. kd3 16:10 Eligio Amador MD is Attending Physician. kamar 16:10 Patient has correct armband on for positive identification. bp 16:49 XRAY Chest (1 view) Sent. bp 16:58 Inserted saline lock: 22 gauge in right wrist, using aseptic technique. Blood collected.bp 17:08 XRAY Chest (1 view) In Process Unspecified. EDMS 17:20 Juanjo Blanco MD is Hospitalizing Provider. kamar 17:49 SARS RAPID Sent. bp 17:49 Flu Sent. bp 21:19 Cleaned of incontinence. Linen changed. mb9 Administered Medications: 16:45 Drug: MethylPrednisoLONE IVP 125 mg IVP once Route: IVP; Site: right wrist; bp 16:45 Drug: Levalbuterol Inhalation 3.75 mg Inhalation once Route: Inhalation; bp 16:45 Drug: Ipratropium Inhalation Aerosol 0.5 mg Inhalation once Route: Inhalation; bp 16:45 Drug: levofloxacin IVPB 500 mg 100 ml IVPB once over 60 mins Volume: 100 ml; Route: bp IVPB; Infused Over: 60 mins; Site: right wrist; 16:45 Drug: Famotidine IVP 20 mg IVP once; dilute with 10 mL 0.9% NaCl; give over 2 minutes bp Route: IVP; Site: right wrist; 16:45 Drug: Magnesium Sulfate IVPB 2 grams IVPB once over 2 hrs Route: IVPB; Infused Over: 2 bp hrs; Site: right wrist; 18:15 Drug: Levalbuterol Inhalation 2.5 mg Inhalation once Route: Inhalation; bp Medication: 16:10 VIS not applicable for this client. bp Outcome: 17:22 Decision to Hospitalize by Provider. kamar 22:13 Patient left the ED. nj1 Signatures: Dispatcher [employer] EDMS Eligio Amador MD MD cha Peltier, Brian, RN RN Emily Wright RN RN kd3 Nidhi Amaya RN RN mb9 Ally Huynh RN RN nj1 Lisa Croft mg5 Corrections: (The following items were deleted from the chart) 16:08 16:04 Chief complaint: Patient states: Pt arrived from his follow up visit after being kd3 discharged from the hospital for COPD exacerbation. Pt reportedly was in the 60's for O2 sat on room air and brought to ED. Pt brought back from the lobby right away, was noted to be 68% on room air with audible wheezing. kd3 16:15 16:14 Reassessment: BIPAP 14/6 FIO2 45% bp bp
--- NOTE | 2023-11-11 17:23 | EDPHYS ---
Physician Documentation [facility] Name: Randolph Mckeon Age: 68 yrs Sex: Male : 1955 Arrival Date: 11/11/2023 Time: 15:49 Bed 18 Private MD: ED Physician Eligio Amador HPI: 11/10 16:23 This 68 yrs old Male presents to ER via Wheelchair with complaints of kamar Breathing Difficulty. 16:23 The patient has shortness of breath at rest, with light activity. Onset: The kamar symptoms/episode began/occurred just prior to arrival, today. Duration: The symptoms are continuous, and are steadily getting worse. The patient's shortness of breath has no apparent modifying factors. Associated signs and symptoms: Pertinent positives: non-productive cough. Severity of symptoms: At their worst the symptoms were moderate in the emergency department the symptoms are unchanged. The patient has experienced similar episodes in the past, multiple times. Historical: - PMHx: 16:08 Atrial fibrillation; CHF; COPD; Hypertension; Hypertension; Pneumonia; kd3 - PSHx: 16:08 cyst removal on lower left limb; kd3 - Immunization history:: Adult Immunizations up to date. - Social history:: Smoking status: Patient reports the use of cigarette tobacco products, smokes one-half pack cigarettes per day. ROS: 16:24 Constitutional: Negative for fever, chills, and weight loss, Eyes: Negative for injury, kamar pain, redness, and discharge, ENT: Negative for injury, pain, and discharge, Neck: Negative for injury, pain, and swelling, Cardiovascular: Negative for chest pain, palpitations, and edema, Abdomen/GI: Negative for abdominal pain, nausea, vomiting, diarrhea, and constipation, Back: Negative for injury and pain, : Negative for injury, bleeding, discharge, and swelling, Skin: Negative for injury, rash, and discoloration, Neuro: Negative for headache, weakness, numbness, tingling, and seizure, Psych: Negative for depression, anxiety, suicide ideation, homicidal ideation, and hallucinations, Allergy/Immunology: Negative for hives, rash, and allergies, Endocrine: Negative for neck swelling, polydipsia, polyuria, polyphagia, and marked weight changes, Hematologic/Lymphatic: Negative for swollen nodes, abnormal bleeding, and unusual bruising, 16:24 Respiratory: Positive for cough, shortness of breath, wheezing, expiratory, 16:24 MS/extremity: Positive for swelling, of the right leg and left leg, Exam: 16:24 Constitutional: This is a well developed, well nourished patient who is awake, alert, kamar and in no acute distress. Head/Face: Normocephalic, atraumatic. Eyes: Pupils equal round and reactive to light, extra-ocular motions intact. Lids and lashes normal. Conjunctiva and sclera are non-icteric and not injected. Cornea within normal limits. Periorbital areas with no swelling, redness, or edema. ENT: Nares patent. No nasal discharge, no septal abnormalities noted. Tympanic membranes are normal and external auditory canals are clear. Oropharynx with no redness, swelling, or masses, exudates, or evidence of obstruction, uvula midline. Mucous membranes moist. Neck: Trachea midline, no thyromegaly or masses palpated, and no cervical lymphadenopathy. Supple, full range of motion without nuchal rigidity, or vertebral point tenderness. No Meningismus. Chest/axilla: Normal chest wall appearance and motion. Nontender with no deformity. No lesions are appreciated. Abdomen/GI: Soft, non-tender, with normal bowel sounds. No distension or tympany. No guarding or rebound. No evidence of tenderness throughout. Back: No spinal tenderness. No costovertebral tenderness. Full range of motion. Male : Normal genitalia with no discharge or lesions. Skin: Warm, dry with normal turgor. Normal color with no rashes, no lesions, and no evidence of cellulitis. Neuro: Awake and alert, GCS 15, oriented to person, place, time, and situation. Cranial nerves II-XII grossly intact. Motor strength 5/5 in all extremities. Sensory grossly intact. Cerebellar exam normal. Normal gait. Psych: Awake, alert, with orientation to person, place and time. Behavior, mood, and affect are within normal limits. 16:24 Cardiovascular: Rate: tachycardic, actual rate is 106 bpm, Rhythm: regular, Pulses: Pulses are 4+ in bilateral radial, brachial, femoral, popliteal, posterior tibial and and dorsalis pedis arteries.. Heart sounds: normal, Edema: 2+ edema to level of left midcalf and right midcalf, JVD: is not appreciated, 16:24 ECG was reviewed by the Attending Physician. Vital Signs: 16:06 BP 135 / 88; Pulse 106; Resp 27; Temp 98.1(TE); Pulse Ox 95% on Non-rebreather mask; kd3 Weight 95.25 kg; Height 5 ft. 11 in. ; 20:00 BP 131 / 73; Pulse 93; Resp 24; Pulse Ox 95% on BiPAP; nj1 21:22 BP 130 / 68; Pulse 87; Resp 20; Pulse Ox 97% on BiPAP; nj1 16:06 Body Mass Index 29.29 (95.25 kg, 180.34 cm) kd3 MDM: 16:10 Patient medically screened. [facility] 16:26 Differential diagnosis: Anxiety Reaction asthma, Bronchitis CHF exacerbation, Chronic kamar Obstructive Pulmonary Disease Myocardial Infarction pneumonia, pulmonary edema, Pulmonary Embolism reactive airway disease, Sepsis Unstable Angina. Antibiotic administration: Levaquin given. Immunization status: Pneumococcal vaccine: within last 5 years. Influenza vaccine: within last 5 years. Data reviewed: vital signs, nurses notes, lab test result(s), EKG, radiologic studies, plain films. Consideration of Admission/Observation Patient was admitted/placed on observation. Escalation of care including admission/observation considered. I considered the following discharge prescriptions or medication management in the emergency department Medications were administered in the Emergency Department. See MAR. Independent interpretation of the following test(s) in the Emergency Department EKG: See my EKG interpretation above. Test considered but Not performed: CT: NO CT CHEST. 11/10 16:13 Order name: Basic Metabolic Panel; Complete Time: 17:42 [facility] 11/10 16:13 Order name: CBC with Diff; Complete Time: 17:42 [facility] 11/10 16:13 Order name: LFT's; Complete Time: 17:42 [facility] 11/10 16:13 Order name: Magnesium; Complete Time: 17:42 [facility] 11/10 16:13 Order name: NT PRO-BNP; Complete Time: 17:42 [facility] 11/10 16:13 Order name: PT-INR; Complete Time: 17:42 [facility] 11/10 16:13 Order name: Troponin HS; Complete Time: 17:42 [facility] 11/10 16:13 Order name: Blood Culture Adult (2) [facility] 11/10 16:13 Order name: Flu [facility] 11/10 16:13 Order name: SARS RAPID [facility] 11/10 16:13 Order name: Lactate w/ 2H reflex if indic.; Complete Time: 17:42 [facility] 11/10 19:54 Order name: Basic Metabolic Panel EDMS 11/10 19:54 Order name: Basic Metabolic Panel EDMS 11/10 19:54 Order name: Basic Metabolic Panel EDMS 11/10 19:54 Order name: Basic Metabolic Panel EDMS 11/10 19:54 Order name: CBC with Automated Diff EDMS 11/10 19:55 Order name: CBC with Automated Diff EDMS 11/10 19:55 Order name: CBC with Automated Diff EDMS 11/10 19:55 Order name: CBC with Automated Diff EDMS 11/10 16:02 Order name: BIPAP ld1 11/10 16:13 Order name: XRAY Chest (1 view); Complete Time: 17:42 [facility] 11/10 16:13 Order name: EKG; Complete Time: 16:14 [facility] 11/10 16:13 Order name: Cardiac monitoring; Complete Time: 16:16 [facility] 11/10 16:13 Order name: EKG - Nurse/Tech; Complete Time: 16:16 [facility] 11/10 16:13 Order name: IV Saline Lock; Complete Time: 17:49 [facility] 11/10 16:13 Order name: Labs collected and sent; Complete Time: 17:49 [facility] 11/10 16:13 Order name: O2 Per Protocol; Complete Time: 16:16 [facility] 11/10 16:13 Order name: O2 Sat Monitoring; Complete Time: 16:16 [facility] 11/10 17:17 Order name: IV Saline Lock - Large Bore; Complete Time: 17:47 [facility] EC:24 Rate is 100 beats/min. Rhythm is regular. QRS [place] is Normal. SD interval is normal. [facility] QRS interval is normal. QT interval is normal. No Q waves. T waves are Normal. No ST changes noted. Clinical impression: NSR w/ Non-specific ST/T Changes and No evidence of ischemia. Interpreted by me. Reviewed by me. Administered Medications: 16:45 Drug: MethylPrednisoLONE IVP 125 mg IVP once Route: IVP; Site: right wrist; bp 16:45 Drug: Levalbuterol Inhalation 3.75 mg Inhalation once Route: Inhalation; bp 16:45 Drug: Ipratropium Inhalation Aerosol 0.5 mg Inhalation once Route: Inhalation; bp 16:45 Drug: levofloxacin IVPB 500 mg 100 ml IVPB once over 60 mins Volume: 100 ml; Route: bp IVPB; Infused Over: 60 mins; Site: right wrist; 16:45 Drug: Famotidine IVP 20 mg IVP once; dilute with 10 mL 0.9% NaCl; give over 2 minutes bp Route: IVP; Site: right wrist; 16:45 Drug: Magnesium Sulfate IVPB 2 grams IVPB once over 2 hrs Route: IVPB; Infused Over: 2 bp hrs; Site: right wrist; 18:15 Drug: Levalbuterol Inhalation 2.5 mg Inhalation once Route: Inhalation; bp Disposition Summary: 11/11/23 17:22 Hospitalization Ordered Notes: Hospitalization Status: Inpatient Admission kamar Provider: Juanjo Blanco cha Location: Telemetry/MedSurg (Inpatient) kamar Condition: Fair kamar Problem: new kamar Symptoms: have improved kamar Bed/Room Type: Standard kamar Room Assignment: 411(11/11/23 20:37) rv1 Diagnosis - Acute and chronic respiratory failure with hypoxia kamar - Tobacco abuse counseling kamar - Tobacco use kamar - Edema, unspecified kamar - Paroxysmal atrial fibrillation 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
[2023-11-11 17:29] LABS: Absolute Eosinophils 0.1 K/uL (0-0.5); Absolute Lymphocytes (CBC) 0.9 K/uL (0.7-4.9); Absolute Monocytes 1.3 K/uL (0.1-1.3); Absolute Neutrophil 12.3 K/uL (1.8-8.0); Basophils % 0.2 % (0-1.3); Eosinophils % 0.4 % (0-4.4); Hematocrit 34.2 % (39.6-49.0); Lymphocytes % 6.1 % (15.3-44.8); MCH 26.8 pg (27.0-35.0); MCHC 32.1 g/dL (32.0-36.0); MCV 83.6 fL (80-100); MPV 7.5 fL (7.6-11.3); Monocytes % 9.2 % (3.3-12.3); Neutrophils % 84.1 % (41.7-73.7); Nucleated Red Blood Cells % 0.1 % (0-0); Platelets 230 thou/uL (152-406); Red Cell Distribution Width 14.9 % (12.1-15.2)
[2023-11-11 17:30] LABS: PT Prothrombin Time 15.9 SECONDS (9.5-12.5); Protime INR 1.46
[2023-11-11 17:32] LABS: Albumin 2.9 g/dL (3.4-5.0); Albumin/Globulin Ratio 0.9 (1.1-1.8); Anion Gap 8.7 mEq/L (5.0-15.0); Bilirubin Direct 0.4 mg/dL (0-0.2); Bilirubin Indirect, Calculated 0.7 mg/dL (0.2-0.8); Bilirubin Total 1.1 mg/dL (0.2-1.0); Globulin 3.4 g/dL (2.3-3.5); Magnesium 2.1 mg/dL (1.6-2.4); Potassium 4.7 mEq/L (3.5-5.1); Protein, Total 6.3 g/dL (6.4-8.2); Troponin High Sensitivity 33.7 pg/mL (<58.9)
[2023-11-11 17:58] LABS: SARS-CoV-2 Antigen CONTROL BLUE LINE VIS/BG OK; SARS-CoV-2 Antigen Rapid Res Negative (Negative)
[2023-11-11] MEDS ORDERED: ONDANSETRON 4 MG/2 ML VIAL IV PRN (19:50)
[2023-11-11] MEDS ORDERED: MAGNESIUM HYDROXIDE 8% 30 ML PO PRN (19:50)
[2023-11-11] MEDS ORDERED: ACETAMINOPHEN 500 MG TAB PO PRN (19:50)
[2023-11-11] MEDS ORDERED: ALPRAZOLAM 0.25 MG TABLET PO PRN (19:50)
--- NOTE | 2023-11-11 22:42 | P.HP ---
Certification for Inpatient Patient admitted to: Inpatient With expected LOS: >2 Midnights Practitioner: I am a practitioner with admitting privileges, knowledge of patient current condition, hospital course, and medical plan of care. Services: Services provided to patient in accordance with Admission requirements found in Title 42 Section 412.3 of the Code of Federal Regulations Patient History Date of Service: 11/12/23 Reason for admission: COPD exacerbation, Respiratory failure History of Present Illness: 68-year-old male patient with medical history significant for COPD, hypertension, hyperlipidemia, CHF and benign prostatic hypertrophy who came to the ED with complaint of shortness of breath and cough productive of sputum. He was evaluated in the ED and found to have hypoxia and was started on BiPAP therapy for respiratory issues. He was admitted for inpatient care for suspicion for COPD exacerbation. Antibiotic therapy with Levaquin and Solu- Medrol was given in the ED. No overt complaint of chest pain, fever, chills reported. Allergies No Known Allergies Allergy (Verified 10/27/23 03:53) Home medications list reviewed: Yes Home Medications: Amlodipine [Norvasc*] 10 mg PO DAILY 02/22/23 Apixaban [Eliquis] 5 mg PO BID 02/22/23 Spironolactone 25 mg PO DAILY 02/22/23 Roflumilast [Daliresp*] 500 mcg PO DAILY 30 Days #30 tab 05/20/23 Tamsulosin [Flomax*] 0.4 mg PO BEDTIME 06/29/23 Fluticasone/Umeclidin/Vilanter [Trelegy Ellipta 100-62.5-25] 1 each IH DAILY #1 inh 08/20/23 Ipratropium/Albuterol Sulfate [Iprat-Albut 0.5-3(2.5) mg/3 ml] 3 ml IH Q6H PRN #120 amp 08/20/23 predniSONE [Deltasone*] 10 mg PO DAILY #30 tab 08/20/23 Albuterol Inhaler [Ventolin Inhaler*] 2 puff IH Q6H PRN #2 inhaler 08/27/23 Nebulizer 1 each MC ONCE #1 ea 08/27/23 acetaZOLAMIDE [Diamox*] 250 mg PO BID #60 tab 08/27/23 - Past Medical/Surgical History Diabetic: No -: COPD -: Hypertension -: Alcohol abuse -: Hyponatremia -: Diastolic CHF -: Pneumonia -: A-fibon chronic anticoagulation -: Hernia repair -: left leg wound -: Left foot cancer removal Psychosocial/ Personal History: Patient is . He lives at home and has home health. - Family History Father -: Heart disease Brother -: Lung disease - Social History Alcohol use: No CD- Drugs: No Caffeine use: No Review of Systems General: Malaise Eyes: Unremarkable ENT: Unremarkable Respiratory: Cough, Shortness of Breath Cardiovascular: Unremarkable Gastrointestinal: Unremarkable Genitourinary: Unremarkable Musculoskeletal: Unremarkable Integumentary: Unremarkable Neurological: Unremarkable Lymphatics: Unremarkable Physical Examination - Vital Signs Temperature: 98.1 F Blood Pressure: 130/68 Pulse: 98 Respirations: 20 Pulse Ox (%): 100 - Physical Exam General: Alert, Oriented x3 HEENT: Atraumatic Neck: Supple Respiratory: Diminished, Expiratory wheezes Cardiovascular: Regular rate/rhythm, Normal S1 S2 Gastrointestinal: Soft and benign Musculoskeletal: No swelling Neurological: Normal speech, Normal strength at 5/5 x4 extr - Studies Laboratory Data (last 24 hrs) 11/11/23 11/11/23 11/11/23 17:00 17:00 17:00 WBC 14.60 H Hgb 11.0 L Hct 34.2 L Plt Count 230 PT 15.9 H INR 1.46 Sodium 129 L Potassium 4.7 BUN 8 Creatinine 0.81 Glucose 106 Magnesium 2.1 Total Bilirubin 1.1 H AST 8 L ALT 14 L Alkaline Phosphatase 65 Microbiology Data (last 24 hrs): 11/11/23 17:25 Nasopharnyx Influenza Type A Antigen Screen - Final 11/11/23 17:25 Nasopharnyx Influenza Type B Antigen Screen - Final Assessment and Plan - Plan COPD with exacerbation: Deemed infectious in etiology. Empiric antibiotic therapy with Levaquin to be continued for Solu-Medrol, DuoNeb therapy to be continued. Continue supplemental oxygen and BiPAP. Follow clinical symptomatology closely Hypertension: We will monitor vital signs per unit protocol and continue antihypertensive medication as prescribed outpatient Chronic atrial fibrillation: Continue anticoagulant with Eliquis and rate control medication. Hyperlipidemia: Continue statin therapy. Benign prostatic hypertrophy: Continue tamsulosin therapy. Hyponatremia: Sodium is low at 129. There may be component of SIADH from pulmonary issue. Will follow trend of sodium level on daily labs. Prophylaxis: Eliquis to be continued for anticoagulation for A-fib and DVT prophylaxis. CODE STATUS: Full code. Disposition: We will treat his respiratory issues and he will be discharged once deemed clinically stable. - Advance Directives Does patient have a Living Will: No Does patient have a Durable POA for Healthcare: No
[2023-11-12 01:54] VITALS: BMI 29.2
--- NOTE | 2023-11-12 06:40 | P.PN ---
Subjective Date of Service: 11/12/23 Chief Complaint: COPD exacerbation, Respiratory failure Admitted for COPD PD exacerbation, on BiPAP - Physical Exam General: Alert, Oriented x3 HEENT: Atraumatic Neck: Supple Respiratory: Diminished, Expiratory wheezes Cardiovascular: Regular rate/rhythm, Normal S1 S2 Gastrointestinal: Soft and benign Musculoskeletal: No swelling Neurological: Normal speech, Normal strength at 5/5 x4 extr <Zonia Benton - Last Filed: 11/12/23 06:35> Date of Service: 11/12/23 <FrancisDayannarossy Ellis - Last Filed: 11/12/23 13:06> Review of Systems per HPI <Zonia Benton - Last Filed: 11/12/23 06:35> Physical Examination - Vital Signs Temperature: 98.1 F Blood Pressure: 130/68 Pulse: 98 Respirations: 20 Pulse Ox (%): 100 - Studies Laboratory Data (last 24 hrs) 11/11/23 11/11/23 11/11/23 17:00 17:00 17:00 WBC 14.60 H Hgb 11.0 L Hct 34.2 L Plt Count 230 PT 15.9 H INR 1.46 Sodium 129 L Potassium 4.7 BUN 8 Creatinine 0.81 Glucose 106 Magnesium 2.1 Total Bilirubin 1.1 H AST 8 L ALT 14 L Alkaline Phosphatase 65 Microbiology Data (last 24 hrs): 11/11/23 17:25 Nasopharnyx Influenza Type A Antigen Screen - Final 11/11/23 17:25 Nasopharnyx Influenza Type B Antigen Screen - Final <Zonia Benton - Last Filed: 11/12/23 06:35> - Studies Laboratory Data (last 24 hrs) 11/12/23 11/12/23 11/11/23 06:10 06:10 17:00 WBC 4.60 Hgb 10.6 L Hct 32.6 L Plt Count 186 PT 15.9 H INR 1.46 Sodium 132 L Potassium 5.0 BUN 9 Creatinine 0.66 L Glucose 168 H Magnesium Total Bilirubin AST ALT Alkaline Phosphatase 11/11/23 11/11/23 17:00 17:00 WBC 14.60 H Hgb 11.0 L Hct 34.2 L Plt Count 230 PT INR Sodium 129 L Potassium 4.7 BUN 8 Creatinine 0.81 Glucose 106 Magnesium 2.1 Total Bilirubin 1.1 H AST 8 L ALT 14 L Alkaline Phosphatase 65 Microbiology Data (last 24 hrs): 11/11/23 17:00 Blood - Blood Blood Culture Gram Stain - Final 11/11/23 16:45 Blood - Blood Blood Culture Gram Stain - Final 11/11/23 16:45 Blood - Blood Gram Stain - Final 11/11/23 17:25 Nasopharnyx Influenza Type A Antigen Screen - Final 11/11/23 17:25 Nasopharnyx Influenza Type B Antigen Screen - Final <Juanjo Blanco - Last Filed: 11/12/23 13:06> Assessment And Plan - Plan Assessment and Plan Acute hypoxic respiratory failure secondary to COPD exacerbation COPD with exacerbation: Deemed infectious in etiology. Empiric antibiotic therapy with Levaquin to be continued for Solu-Medrol, DuoNeb therapy to be continued. Continue supplemental oxygen and BiPAP. Follow clinical symptomatology closely Hypertension: We will monitor vital signs per unit protocol and continue antihypertensive medication as prescribed outpatient Chronic atrial fibrillation: Continue anticoagulant with Eliquis and rate control medication. Hyperlipidemia: Continue statin therapy. Benign prostatic hypertrophy: Continue tamsulosin therapy. Hyponatremia: Sodium is low at 129. There may be component of SIADH from pulmonary issue. Will follow trend of sodium level on daily labs. Prophylaxis: Eliquis to be continued for anticoagulation for A-fib and DVT prophylaxis. CODE STATUS: Full code. Disposition: We will treat his respiratory issues and he will be discharged once deemed clinically stable. Home: Discharge Plan: Home Critical Care: No Time Spent Managing PTS Care (In Minutes): 35 <Zonia Benton - Last Filed: 11/12/23 06:35> - Plan Pt seen and examined. I agree with the note by the MILLER APPRENTICE. Will continue solumedrol, duoneb, levaquin, oxygen and prn BIPAP. Will continue home meds for other chronic medical problems. <Juanjo Blanco - Last Filed: 11/12/23 13:06>
[2023-11-12] MEDS: Levofloxacin500mg IV 500 MG/100 ML BAG IV SCH (06:50)
[2023-11-12 07:11] LABS: Absolute Lymphocytes (CBC) 0.3 K/uL (0.7-4.9); Absolute Monocytes 0.1 K/uL (0.1-1.3); Absolute Neutrophil 4.1 K/uL (1.8-8.0); Basophils % 0.1 % (0-1.3); Hematocrit 32.6 % (39.6-49.0); Hemoglobin 10.6 g/dL (13.6-17.9); Lymphocytes % 7.5 % (15.3-44.8); MCH 26.7 pg (27.0-35.0); MCHC 32.3 g/dL (32.0-36.0); MCV 82.7 fL (80-100); MPV 7.4 fL (7.6-11.3); Monocytes % 3.2 % (3.3-12.3); Neutrophils % 89.2 % (41.7-73.7); Nucleated Red Blood Cells % 0.1 % (0-0); Platelets 186 thou/uL (152-406); RBC Red Blood Cell Count 3.95 M/uL (4.33-5.43); Red Cell Distribution Width 14.9 % (12.1-15.2)
[2023-11-12] MEDS: APIXABAN 5 MG TABLET PO SCH (08:49)
[2023-11-12] MEDS: METHYLPREDNISOLONE 40 MG INJ IV SCH (08:52)
[2023-11-12] MEDS: ENOXAPARIN 40 MG/0.4 ML SQ SCH (08:52)
[2023-11-12 09:24] LABS: Blood Morphology Comment NOT SEEN (NOT SEEN); Platelet Estimate ADEQ; White Blood Cell Scan OK (OK)
[2023-11-12] MEDS: INFLUENZA VACCINE (for 6+ mo) 0.5 ML DOSE IMVAC ONE (12:00)
[2023-11-12] MEDS: ALBUTEROL 2.5 MG/3 ML NEB SOL NEB PRN (20:03)
[2023-11-12] MEDS: IPRATROPIUM BROM 0.5MG/2.5ML NEB PRN (20:03)
--- NOTE | 2023-11-13 07:40 | P.PN ---
Subjective Date of Service: 11/13/23 Chief Complaint: COPD exacerbation, Respiratory failure Admitted for COPD PD exacerbation, shortness of breath improved - Physical Exam General: Alert, Oriented x3 HEENT: Atraumatic Neck: Supple Respiratory: Diminished, Expiratory wheezes Cardiovascular: Regular rate/rhythm, Normal S1 S2 Gastrointestinal: Soft and benign Musculoskeletal: No swelling Neurological: Normal speech, Normal strength at 5/5 x4 extr Review of Systems per HPI Physical Examination - Vital Signs Temperature: 98 F Blood Pressure: 110/49 Pulse: 86 Respirations: 18 Pulse Ox (%): 91 - Studies Microbiology Data (last 24 hrs): 11/11/23 17:00 Blood - Blood Blood Culture Gram Stain - Final 11/11/23 16:45 Blood - Blood Blood Culture Gram Stain - Final 11/11/23 16:45 Blood - Blood Gram Stain - Final Assessment And Plan - Plan Assessment and Plan Acute hypoxic respiratory failure secondary to COPD exacerbation COPD with exacerbation: Deemed infectious in etiology. Empiric antibiotic therapy with Levaquin to be continued for Solu-Medrol, DuoNeb therapy to be continued. Continue supplemental oxygen and BiPAp-transition to nasal cannula Follow clinical symptomatology closely Pulmonary consulted Hypertension: We will monitor vital signs per unit protocol and continue antihypertensive medication as prescribed outpatient Chronic atrial fibrillation: Continue anticoagulant with Eliquis and rate control medication. Hyperlipidemia: Continue statin therapy. Benign prostatic hypertrophy: Continue tamsulosin therapy. Hyponatremia: improved Sodium is low at 129. 132, 137 There may be component of SIADH from pulmonary issue. Will follow trend of sodium level on daily labs. Prophylaxis: Eliquis to be continued for anticoagulation for A-fib and DVT prophylaxis. CODE STATUS: Full code. Disposition: We will treat his respiratory issues and he will be discharged once deemed clinically stable. Home: Discharge Plan: Home Critical Care: No Time Spent Managing PTS Care (In Minutes): 35
[2023-11-13 09:24] VITALS: O2SAT 94
--- NOTE | 2023-11-13 10:35 | P.DS ---
Admission Date: 11/12/23 Discharge Date: 11/13/23 Reason for Admission: COPD exacerbation, Respiratory failure Brief History of Present Illness: 68-year-old male patient with medical history significant for COPD, hypertension, hyperlipidemia, CHF and benign prostatic hypertrophy who came to the ED with complaint of shortness of breath and cough productive of sputum. He was evaluated in the ED and found to have hypoxia and was started on BiPAP therapy for respiratory issues. He was admitted for inpatient care for suspicion for COPD exacerbation. Antibiotic therapy with Levaquin and Solu- Medrol was given in the ED. No overt complaint of chest pain, fever, chills reported. - Physical Exam General: Alert, Oriented x3 HEENT: Atraumatic Neck: Supple Respiratory: Diminished, equal unlabored Cardiovascular: Regular rate/rhythm, Normal S1 S2 Gastrointestinal: Soft and benign Musculoskeletal: No swelling Neurological: Normal speech, Normal strength at 5/5 x4 extr Hospital Course: 68 year old male year with medical history significant for hypertension, benign prostatic hypertrophy, hyperlipidemia, history of COPD presented with Was noted to have COPD exacerbation. Was evaluated by pulmonary. Condition improved with steroids, nebulizers, oxygen, BiPAP. Condition improved on treatment plan, Patient tolerating diet, stable for discharge to home with follow-up appointment with primary care physician, follow-up with pulmonary after discharge. PROBLEM: COPD exacerbation Acute respiratory failure with hypercapnia Discharge home on prednisone, Levaquin Follow-up with pulmonary in 1 week patient has home 02, and portable 02 for prn needs Continue home medicines as previously prescribed GOAL: Clear understanding of disease process INSTRUCTIONS: -Follow-up with PCP in 1 to 2 weeks -Please call if any questions regarding hospital stay -Please call nursing station at [phone] if any nursing or medication questions -Return to the emergency room if symptoms worsen Diet: ADA, low sodium Activity: Fall precautions <Zonia Benton - Last Filed: 11/13/23 10:36> Admission Date: 11/12/23 Discharge Date: 11/13/23 Hospital Course: Pt seen and examined. I agree with the note by the PACKING CLERK. Pt was admitted for COPD exacerbation. Will continue prednisone taper and levaquin. Follow up with PCP and Production Control Specialist. Ok to discharge pt. <Juanjo Blanco - Last Filed: 11/13/23 17:10> Disposition: ROUTINE DISCHARGE Discharge Condition: GOOD Vital Signs/Physical Exam: Temp Pulse Resp BP Pulse Ox 98 F 86 18 110/49 L 91 11/13/23 07:39 11/13/23 07:39 11/13/23 07:39 11/13/23 07:39 11/13/23 07:39 Laboratory Data at Discharge: WBC 11.60 thou/uL (4.3-10.9) H 11/13/23 03:18 Hgb 10.6 g/dL (13.6-17.9) L 11/13/23 03:18 Hct 32.8 % (39.6-49.0) L 11/13/23 03:18 Plt Count 233 thou/uL (152-406) 11/13/23 03:18 PT 15.9 SECONDS (9.5-12.5) H 11/11/23 17:00 INR 1.46 11/11/23 17:00 Sodium 137 mEq/L (136-145) D 11/13/23 03:18 Potassium 4.7 mEq/L (3.5-5.1) 11/13/23 03:18 BUN 17 mg/dL (7-18) 11/13/23 03:18 Creatinine 0.82 mg/dL (0.70-1.30) 11/13/23 03:18 Glucose 229 mg/dL (74-106) H 11/13/23 03:18 Magnesium 2.1 mg/dL (1.6-2.4) 11/11/23 17:00 Total Bilirubin 1.1 mg/dL (0.2-1.0) H 11/11/23 17:00 AST 8 U/L (15-37) L 11/11/23 17:00 ALT 14 U/L (16-61) L 11/11/23 17:00 Alkaline Phosphatase 65 U/L (45-117) 11/11/23 17:00 <Zonia Benton - Last Filed: 11/13/23 10:36> Vital Signs/Physical Exam: Temp Pulse Resp BP Pulse Ox 97.6 F 83 24 H 119/57 L 90 L 11/13/23 12:00 11/13/23 12:00 11/13/23 12:00 11/13/23 12:00 11/13/23 12:00 Laboratory Data at Discharge: WBC Cancelled 11/13/23 03:18 Hgb Cancelled 11/13/23 03:18 Hct Cancelled 11/13/23 03:18 Plt Count Cancelled 11/13/23 03:18 PT 15.9 SECONDS (9.5-12.5) H 11/11/23 17:00 INR 1.46 11/11/23 17:00 Sodium Cancelled 11/13/23 03:18 Potassium Cancelled 11/13/23 03:18 BUN Cancelled 11/13/23 03:18 Creatinine Cancelled 11/13/23 03:18 Glucose Cancelled 11/13/23 03:18 Magnesium 2.1 mg/dL (1.6-2.4) 11/11/23 17:00 Total Bilirubin 1.1 mg/dL (0.2-1.0) H 11/11/23 17:00 AST 8 U/L (15-37) L 11/11/23 17:00 ALT 14 U/L (16-61) L 11/11/23 17:00 Alkaline Phosphatase 65 U/L (45-117) 11/11/23 17:00 <Juanjo Blanco - Last Filed: 11/13/23 17:10> Diet: AHA Activity: Fall precautions Time spent managing pt's care (in minutes): 55 <Zonia Benton - Last Filed: 11/13/23 10:36> <Juanjo Blanco - Last Filed: 11/13/23 17:10> Home Medications: Amlodipine [Norvasc*] 10 mg PO DAILY 02/22/23 Apixaban [Eliquis] 5 mg PO BID 02/22/23 Spironolactone 25 mg PO DAILY 02/22/23 Roflumilast [Daliresp*] 500 mcg PO DAILY 30 Days #30 tab 05/20/23 Tamsulosin [Flomax*] 0.4 mg PO DAILY 06/29/23 Fluticasone/Umeclidin/Vilanter [Trelegy Ellipta 100-62.5-25] 1 each IH DAILY #1 inh 08/20/23 Ipratropium/Albuterol Sulfate [Iprat-Albut 0.5-3(2.5) mg/3 ml] 3 ml IH Q6H PRN #120 amp 08/20/23 Albuterol Inhaler [Ventolin Inhaler*] 2 puff IH Q6H PRN #2 inhaler 08/27/23 Nebulizer 1 each MC ONCE #1 ea 08/27/23 acetaZOLAMIDE [Diamox*] 250 mg PO BID #60 tab 08/27/23 Albuterol Neb [Proventil 0.083% Neb Soln] 2.5 mg NEB Q6HP PRN amp 11/13/23 levoFLOXacin [Levaquin] 750 mg PO DAILY 5 Days #5 tab 11/13/23 predniSONE [Deltasone*] 10 mg PO DAILY #30 tab 11/13/23 New Medications: predniSONE [Deltasone*] 10 mg PO DAILY #30 tab levoFLOXacin [Levaquin] 750 mg PO DAILY 5 Days #5 tab Physician Discharge Instructions: 68 year old male year with medical history significant for hypertension, benign prostatic hypertrophy, hyperlipidemia, history of COPD presented with Was noted to have COPD exacerbation. Was evaluated by pulmonary. Condition improved with steroids, nebulizers, oxygen, BiPAP. Condition improved on treatment plan, Patient tolerating diet, stable for discharge to home with follow-up appointment with primary care physician, follow-up with pulmonary after discharge. PROBLEM: COPD exacerbation Acute respiratory failure with hypercapnia Discharge home on prednisone, Levaquin Follow-up with pulmonary in 1 week patient has home 02, and portable 02 for prn needs Continue home medicines as previously prescribed GOAL: Clear understanding of disease process INSTRUCTIONS: -Follow-up with PCP in 1 to 2 weeks -Please call Dr. Giron if any questions regarding hospital stay -Please call nursing station at [phone] if any nursing or medication questions -Return to the emergency room if symptoms worsen Diet: ADA, low sodium Activity: Fall precautions Followup: Cooper Holt MD [ACTIVE - CAN ADMIT] - Meaghan Cihsholm MD [Primary Care Provider] -
[2023-11-13 12:44] VITALS: BP 119/57; TEMP 97.6
--- NOTE | 2023-11-15 14:30 | EKG ---
Test Date: 2023-11-11 Test Time: 15:58:08 Turntable Worker: [place] MEASUREMENT RESULTS: Intervals: Rate: 100 WV: 190 QRSD: 94 QT: 334 QTc: 430 [place]: P: 61 WV: 190 QRS: 31 T: 56 INTERPRETIVE STATEMENTS: Normal sinus rhythm Possible Left atrial enlargement Borderline ECG Compared to ECG 10/26/2023 21:56:07 Incomplete right bundle-branch block no longer present Electronically Signed On 11-15-23 14:17:40 CDT by Curtis Sotelo
== END 2023-11-13 14:01 | disposition home health service (06) | DRG 189 ==
LOC: ER 15:49 → ERHOLD 19:50 → 4TH 21:56 → OBSVTOIN 11-12 09:42
PROVIDERS: ADMIT Internal Medicine Nephrology; ATTEND Hospitalist
PROC: 5A09457 Assistance with Respiratory Ventilation, 24-96 Consecutive Hours, Continuous Positive Airway Pressure (ICD-10-PCS; principal; 2023-11-11)
DX: J96.02 Acute respiratory failure with hypercapnia (principal); J44.1 Chronic obstructive pulmonary disease with (acute) exacerbation; E22.2 Syndrome of inappropriate secretion of antidiuretic hormone; I48.20 Chronic atrial fibrillation, unspecified; I50.32 Chronic diastolic (congestive) heart failure; I11.0 Hypertensive heart disease with heart failure; J96.01 Acute respiratory failure with hypoxia; E78.5 Hyperlipidemia, unspecified; N40.0 Benign prostatic hyperplasia without lower urinary tract symptoms; Z63.5 Disruption of family by separation and divorce; Z11.52 Encounter for screening for COVID-19; Z79.01 Long term (current) use of anticoagulants; Z79.52 Long term (current) use of systemic steroids; Z79.899 Other long term (current) drug therapy
CPT/HCPCS: 36415; 71045; 80048; 80076; 83605; 83735; 83880; 84484; 85025; 85610; 87040; 87077; 87186; 87205; 87804; 87811; 93005; 94640; 94660; 94760; 96374; 96375; 99285; G0378; J1650; J2920; J2930; J3475; J7613; J7614; J7644

== ENCOUNTER 2023-11-16 10:39 | Inpatient (IN) | payer OTHER, BC ==
[2023-11-16 11:23] LABS: Absolute Basophils 0.1 K/uL (0-0.5); Absolute Lymphocytes (CBC) 0.8 K/uL (0.7-4.9); Absolute Monocytes 1.1 K/uL (0.1-1.3); Absolute Neutrophil 19.7 K/uL (1.8-8.0); Basophils % 0.2 % (0-1.3); Eosinophils % 0.2 % (0-4.4); Hematocrit 37.9 % (39.6-49.0); Hemoglobin 12.3 g/dL (13.6-17.9); Lymphocytes % 3.6 % (15.3-44.8); MCH 26.4 pg (27.0-35.0); MCHC 32.4 g/dL (32.0-36.0); MCV 81.6 fL (80-100); MPV 7.6 fL (7.6-11.3); Monocytes % 5.3 % (3.3-12.3); Neutrophils % 90.7 % (41.7-73.7); Nucleated Red Blood Cells % 0.1 % (0-0); Platelets 257 thou/uL (152-406); RBC Red Blood Cell Count 4.65 M/uL (4.33-5.43); Red Cell Distribution Width 14.6 % (12.1-15.2)
[2023-11-16 11:45] LABS: Albumin 3.1 g/dL (3.4-5.0); Albumin/Globulin Ratio 0.9 (1.1-1.8); Anion Gap 11.3 mEq/L (5.0-15.0); Bilirubin Total 0.6 mg/dL (0.2-1.0); Globulin 3.6 g/dL (2.3-3.5); Magnesium 2.4 mg/dL (1.6-2.4); Potassium 4.3 mEq/L (3.5-5.1); Protein, Total 6.7 g/dL (6.4-8.2); Troponin High Sensitivity 26.2 pg/mL (<58.9)
[2023-11-16 11:58] LABS: Platelet Estimate ADEQ; White Blood Cell Scan OK (OK)
[2023-11-16 11:59] LABS: Blood Morphology Comment NOTED (NOT SEEN); Hypochromasia 1+
--- NOTE | 2023-11-16 12:22 | RAD REPORT ---
EXAM DESCRIPTION: CT - Abdomen Pelvis W Contrast - 11/16/2023 11:46 am CLINICAL HISTORY: Abdominal pain COMPARISON: 2022 TECHNIQUE: Computed axial tomography of the abdomen pelvis was obtained. 100 cc Isovue-300 was admin istered intravenously. Oral contrast was not requested which limits evaluation of bowel and appendix All CT scans are performed using dose optimization technique as appropriate and may include automated exposure control or mA/KV adjustment according to patient size. FINDINGS: Stomach is dilated. Marked dilatation of small bowel which extends into a left inguinal hernia. The exiting loop of small bowel from the inguinal hernia is decompressed. Right inguinal hernia repair No free air. Liver, spleen, pancreas and adrenals unremarkable. Right renal cyst. Left kidney is absent. Trace amount of ascites IMPRESSION: Left inguinal hernia obstructs small bowel. Small bowel is markedly dilated
--- NOTE | 2023-11-16 12:36 | RAD REPORT ---
EXAM DESCRIPTION: Kira Single View11/16/2023 12:27 pm CLINICAL HISTORY: Abdominal pain COMPARISON: November 11, 2023 FINDINGS: Areas of scarring are present within the lung bases. Upper lobes are clear. Heart is normal size IMPRESSION: No acute abnormalities displayed
[2023-11-16] MEDS ORDERED: ONDANSETRON 4 MG/2 ML VIAL ONE (13:07)
[2023-11-16] MEDS ORDERED: FENTANYL CITR 100 MCG/2 ML ONE (13:07)
[2023-11-16] MEDS ORDERED: PIPERACIL/TAZO 3.375 GM VIAL IV ONE (13:08)
[2023-11-16] MEDS ORDERED: NA CHLORIDE 0.9% 100 ML ONE (13:08)
[2023-11-16 13:31] LABS: Specific Gravity > 1.030 (1.005-1.030); Sqamous Epithelial <5 /HPF (None Seen); Urine Bacteria None Seen /HPF (<20); Urine Bilirubin NEGATIVE (Negative); Urine Blood Negative (Negative); Urine Clarity Turbid (Clear); Urine Color Yellow (Yellow); Urine Culture Reflex Order NOT NEEDED; Urine Glucose NEGATIVE (Negative); Urine Ketones 1+ (Negative); Urine Microscopic Reflex YN ORDER UMIC; Urine Mucus Slight /HPF (None Seen); Urine Nitrite NEGATIVE (Negative); Urine Protein 1+ (Negative); Urine Urobilinogen 1+ (Normal); Urine WBC <5 /HPF (<5); Urine pH 6.5 (5.0-7.0)
--- NOTE | 2023-11-16 13:52 | EDPHYS ---
Physician Documentation [facility] Name: Randolph Mckeon Age: 68 yrs Sex: Male : 1955 Arrival Date: 11/16/2023 Time: 10:39 Bed 17 Private MD: ED Physician Gurpreet Arshad HPI: 11/15 11:26 This 68 yrs old Male presents to ER via EMS with complaints of Abdominal Pain. rt 11:26 Patient presents to the ED with abdominal swelling, bilateral extremity swelling as rt well as abdominal pain for the past 3 days since he is left the hospital after he admitted for COPD. Reports continued shortness of breath. Denies chest pain. Denies other acute complaints, symptoms are moderate in severity, no other aggravating or alleviating factors.. Historical: - Allergies: 10:56 No Known Allergies; nj1 - PMHx: 10:56 Atrial fibrillation; CHF; COPD; Hypertension; Pneumonia; nj1 - PSHx: 10:56 cyst removal on lower left limb; nj1 - Immunization history:: Client reports having NOT received the Covid vaccine. - Social history:: Smoking status: Patient reports the use of cigarette tobacco products, smokes one-half pack cigarettes per day. - Family history:: not pertinent. ROS: 11:26 Constitutional: Negative for fever, chills, and weight loss, Cardiovascular: Negative rt for chest pain, palpitations, and edema, MS/Extremity: Negative for injury and deformity, Skin: Negative for injury, rash, and discoloration, Neuro: Negative for headache, weakness, numbness, tingling, and seizure, 11:26 Respiratory: Positive for shortness of breath, Negative for cough, 11:26 Abdomen/GI: Positive for abdominal pain, Abdominal swelling, Exam: 11:26 Constitutional: This is a well developed, well nourished patient who is awake, alert, rt and in no acute distress. Head/Face: Normocephalic, atraumatic. Chest/axilla: Normal chest wall appearance and motion. Nontender with no deformity. No lesions are appreciated. Cardiovascular: Regular rate and rhythm with a normal S1 and S2. No gallops, murmurs, or rubs. Normal PMI, no JVD. No pulse deficits. Respiratory: Lungs have equal breath sounds bilaterally, clear to auscultation and percussion. No rales, rhonchi or wheezes noted. No increased work of breathing, no retractions or nasal flaring. MS/ Extremity: Pulses equal, no cyanosis. Neurovascular intact. Full, normal range of motion. Neuro: Awake and alert, GCS 15, oriented to person, place, time, and situation. Cranial nerves II-XII grossly intact. Motor strength 5/5 in all extremities. Sensory grossly intact. Cerebellar exam normal. Normal gait. 11:26 ECG was reviewed by the Attending Physician. 11:26 Abdomen/GI: Edema with mild tenderness diffusely on abdomen, 11:26 Musculoskeletal/extremity: Bilateral lower extremity edema, 3+. Vital Signs: 10:45 BP 121 / 83; Pulse 102; Resp 20; Temp 97.7(TE); Pulse Ox 98% on 2 lpm NC; Weight 95.25 nj1 kg; Height 5 ft. 11 in. ; Pain 5/10; 12:59 BP 127 / 80; Pulse 103; Resp 18; Pulse Ox 96% on 2 lpm NC; nj1 14:03 Pulse 106; Resp 19; Pulse Ox 94% on 2 lpm NC; nj1 14:46 BP 114 / 74; Pulse 106; Resp 19; Temp 97.5(TE); Pulse Ox 94% on 2 lpm NC; nj1 10:45 Body Mass Index 29.29 (95.25 kg, 180.34 cm) nj1 10:45 Pain Scale: Adult nj1 MDM: 10:45 Patient medically screened. rt 14:38 Differential Diagnosis No obstruction, ascites. Data reviewed: vital signs, nurses rt notes, lab test result(s), EKG, radiologic studies. Consideration of Admission/Observation Patient was admitted/placed on observation. Management of patient was discussed with the following: Hospitalist: Agrees to admit. Claim Rep: Discussed with general surgery on-call who will evaluate patient.. I considered the following discharge prescriptions or medication management in the emergency department Medications were administered in the Emergency Department. See MAR. Independent interpretation of the following test(s) in the Emergency Department CT Scan: My interpretation is Bowel obstruction seen on my interpretation of CT scan images. Counseling: I had a detailed discussion with the patient and/or guardian regarding the historical points, exam findings, and any diagnostic results supporting the discharge/admit diagnosis, lab results, radiology results, the need for further work-up and treatment in the hospital. ED course: Patient's initial presentation is not thought to be due to infectious etiology. No clear signs of infection currently, will give Zosyn empirically.. 11/15 10:46 Order name: CBC with Diff; Complete Time: 12:51 rt 11/15 10:46 Order name: CMP; Complete Time: 12:51 rt 11/15 10:46 Order name: Lipase; Complete Time: 12:51 rt 11/15 10:46 Order name: Urinalysis w/ reflexes; Complete Time: 14:15 rt 11/15 10:46 Order name: Magnesium; Complete Time: 12:51 rt 11/15 10:46 Order name: NT PRO-BNP; Complete Time: 12:51 rt 11/15 10:46 Order name: Troponin HS; Complete Time: 12:51 rt 11/15 11:59 Order name: CBC Smear Scan; Complete Time: 12:51 EDMS 11/15 13:26 Order name: Blood Culture Adult (2) rt 11/15 13:26 Order name: Lactate w/ 2H reflex if indic.; Complete Time: 14:33 rt 11/15 13:26 Order name: Protime (+inr); Complete Time: 14:33 rt 11/15 13:26 Order name: Ptt, Activated; Complete Time: 14:33 rt 11/15 10:46 Order name: CT Abd/Pelvis - IV Contrast Only; Complete Time: 12:51 rt 11/15 10:46 Order name: XRAY Chest (1 view); Complete Time: 12:51 rt 11/15 10:46 Order name: EKG; Complete Time: 10:46 rt 11/15 10:46 Order name: IV Saline Lock; Complete Time: 11:22 rt 11/15 10:46 Order name: Labs collected and sent; Complete Time: 11:22 rt 11/15 10:46 Order name: Cardiac monitoring; Complete Time: 11:07 rt 11/15 10:46 Order name: EKG - Nurse/Tech; Complete Time: 11:07 rt 11/15 10:46 Order name: O2 Per Protocol; Complete Time: 10:53 rt 11/15 10:46 Order name: O2 Sat Monitoring; Complete Time: 10:53 rt 11/15 13:26 Order name: Accucheck; Complete Time: 14:01 rt 11/15 13:26 Order name: IV Saline Lock - Large Bore; Complete Time: 14:00 rt 11/15 13: Order name: Vital Signs; Complete Time: 14:00 rt EC:26 Rate is 106 beats/min. Rhythm is regular, Sinus tachycardia with Unifocal PVCs. QRS rt [place] is Normal. [place] interval is normal. QRS interval is normal. QT interval is normal. No Q waves. Administered Medications: 13:15 Drug: Ondansetron IVP 4 mg IVP once; over 2 minutes Route: IVP; Site: right forearm; nj1 13:45 Follow up: Response: No adverse reaction; Nausea is decreased nj1 13:17 Drug: fentaNYL (PF) IVP 100 mcg IVP once Route: IVP; Site: right forearm; nj1 13:45 Follow up: Response: No adverse reaction; Pain is decreased nj1 13:20 Drug: Piperacillin-Tazobactam IVPB 3.375 grams IVPB once over 60 mins; (mix in NS 100 nj1 mL) Route: IVPB; Infused Over: 60 mins; Site: right forearm; 13:50 Follow up: Response: No adverse reaction; IV Status: Completed infusion; IV Intake: nj1 100ml Disposition Summary: 11/16/23 13:51 Hospitalization Ordered Notes: Hospitalization Status: Inpatient Admission rt Provider: Chandler Nielsen rt [facility] rt Condition: Stable rt Problem: new rt Symptoms: have improved rt Bed/Room Type: Standard rt Room Assignment: 401(11/16/23 14:20) bd Diagnosis - Small bowel obstruction secondary to left inguinal hernia rt - Leukocytosis rt Forms: - Medication Reconciliation Form rt - SBAR form rt - Leadership Thank You Letter rt Signatures: Dispatcher [employer] EDMS Jenny Li bd Rob Cooper, FUR LINER-C FUR LINER-Cla1 Gurpreet Arshad MD MD rt Ally Huynh RN RN nj1 Corrections: (The following items were deleted from the chart) 14:20 13:51 rt bd
--- NOTE | 2023-11-16 13:52 | ER ---
Nurse's Notes [facility] Name: Randolph Mckeon Age: 68 yrs Sex: Male : 1955 Arrival Date: 11/16/2023 Time: 10:39 Bed 17 Private MD: Diagnosis: Small bowel obstruction secondary to left inguinal hernia;Leukocytosis Presentation: 11/15 10:45 Chief complaint: Patient states: Diffuse abdominal pain since yesterday, along with nj1 some vomiting, denies diarrhea/fever. 10:45 Coronavirus screen: Vaccine status: Patient reports being unvaccinated. Ebola Screen: nj1 Patient denies travel to an Ebola-affected area in the 21 days before illness onset. Initial Sepsis Screen: Does the patient meet any 2 criteria? HR > 90 bpm. No. Patient's initial sepsis screen is negative. Does the patient have a suspected source of infection? No. Patient's initial sepsis screen is negative. Risk Assessment: Do you want to hurt yourself or someone else? Patient reports no desire to harm self or others. Onset of symptoms was November 15, 2023. 10:45 Method Of Arrival: EMS: [facility] 10:45 Acuity: YANNICK 3 nj1 Historical: - Allergies: 10:56 No Known Allergies; nj1 - PMHx: 10:56 Atrial fibrillation; CHF; COPD; Hypertension; Pneumonia; nj1 - PSHx: 10:56 cyst removal on lower left limb; nj1 - Immunization history:: Client reports having NOT received the Covid vaccine. - Social history:: Smoking status: Patient reports the use of cigarette tobacco products, smokes one-half pack cigarettes per day. - Family history:: not pertinent. Screenin:59 [facility] ED Fall Risk Assessment (Adult) History of falling in the last 3 months, nj1 including since admission No falls in past 3 months (0 pts) Confusion or Disorientation No (0 pts) Intoxicated or Sedated No (0 pts) Impaired Gait Yes (1 pt) Mobility Assist Device Used Yes (1 pt) Altered Elimination No (0 pt) Score/Fall Risk Level 0 - 2 = Low Risk Oriented to surroundings, Maintained a safe environment, Hourly rounding (assess needs \T\ fall precautionary measures) done. Abuse screen: Denies threats or abuse. Denies injuries from another. Nutritional screening: No deficits noted. Tuberculosis screening: No symptoms or risk factors identified. Assessment: 10:50 General: Appears in no apparent distress. comfortable, Behavior is calm, cooperative, nj1 appropriate for age. Pain: Complains of pain in abdomen Pain currently is 5 out of 10 on a pain scale. Neuro: Level of Consciousness is awake, alert, obeys commands, Oriented to person, place, time, situation. Cardiovascular: Patient's skin is warm and dry. Respiratory: Airway is patent Respiratory effort is even, unlabored. GI: Abdomen is round Reports lower abdominal pain, upper abdominal pain, vomiting, since yesterday Patient currently denies diarrhea, nausea. 12:58 Reassessment: Patient appears in no apparent distress at this time. Patient and/or nj1 family updated on plan of care and expected duration. Pain level reassessed. Patient is alert, oriented x 3, equal unlabored respirations, skin warm/dry/pink. GI: Reports nausea. 13:45 Reassessment: Patient appears in no apparent distress at this time. Patient and/or nj1 family updated on plan of care and expected duration. Pain level reassessed. Patient is alert, oriented x 3, equal unlabored respirations, skin warm/dry/pink. Pt resting, states pain medicine has help, wakes up upon my arrival to room. Vital Signs: 10:45 BP 121 / 83; Pulse 102; Resp 20; Temp 97.7(TE); Pulse Ox 98% on 2 lpm NC; Weight 95.25 nj1 kg; Height 5 ft. 11 in. ; Pain 5/10; 12:59 BP 127 / 80; Pulse 103; Resp 18; Pulse Ox 96% on 2 lpm NC; nj1 14:03 Pulse 106; Resp 19; Pulse Ox 94% on 2 lpm NC; nj1 14:46 BP 114 / 74; Pulse 106; Resp 19; Temp 97.5(TE); Pulse Ox 94% on 2 lpm NC; nj1 10:45 Body Mass Index 29.29 (95.25 kg, 180.34 cm) nj1 10:45 Pain Scale: Adult [facility] ED Course: 10:43 Patient arrived in ED. nj1 10:45 Gurpreet Arshad MD is Attending Physician. rt 10:53 Ally Huynh RN is Primary Nurse. nj1 10:56 Triage completed. nj1 10:56 Arm band placed on right wrist. nj1 10:58 Patient has correct armband on for positive identification. Bed in low position. Call nj1 light in reach. Side rails up X 1. Provided Education on: call light, fall precautions. 11:22 CBC with Diff Sent. em1 11:22 CMP Sent. em1 11:22 Lipase Sent. em1 11:22 Initial lab(s) drawn, by ak, sent to lab. Inserted saline lock: 22 gauge in right em1 forearm, using aseptic technique. Blood collected. 11:48 CT Abd/Pelvis - IV Contrast Only In Process Unspecified. EDMS 12:29 XRAY Chest (1 view) In Process Unspecified. EDMS 12:50 Head of bed elevated. Boost up in bed. nj1 13:45 Inserted saline lock: 22 gauge in left wrist, using aseptic technique. Blood collected. nj1 13:51 Chandler Nielsen MD is Hospitalizing Provider. rt 16:30 No provider procedures requiring assistance completed. nj1 16:30 Patient admitted, IV remains in place. nj1 Administered Medications: 13:15 Drug: Ondansetron IVP 4 mg IVP once; over 2 minutes Route: IVP; Site: right forearm; nj1 13:45 Follow up: Response: No adverse reaction; Nausea is decreased nj1 13:17 Drug: fentaNYL (PF) IVP 100 mcg IVP once Route: IVP; Site: right forearm; nj1 13:45 Follow up: Response: No adverse reaction; Pain is decreased nj1 13:20 Drug: Piperacillin-Tazobactam IVPB 3.375 grams IVPB once over 60 mins; (mix in NS 100 nj1 mL) Route: IVPB; Infused Over: 60 mins; Site: right forearm; 13:50 Follow up: Response: No adverse reaction; IV Status: Completed infusion; IV Intake: nj1 100ml Medication: 16:30 VIS not applicable for this client. nj1 Intake: 13:50 IV: 100ml; Total: 100ml. nj1 Outcome: 13:51 Decision to Hospitalize by Provider. rt 15:36 Patient left the ED. nj1 16:30 Admitted to Tele accompanied by tech, via stretcher, with oxygen, nj1 16:30 Condition: stable 16:30 Instructed on the need for admit, nj1 Signatures: Dispatcher [employer] Javier García em1 Gurpreet Arshad MD MD rt Ally Huynh, RN RN nj1 Corrections: (The following items were deleted from the chart) 13:10 12:59 Pulse 103bpm; Resp 18bpm; Pulse Ox 96% 2 lpm Nasal Cannula; nj1 nj1 14:49 10:45 BP 121 / 83; Pulse 102bpm; Resp 20bpm; Pulse Ox 98% 2 lpm Nasal Cannula; Temp nj1 36.5F Temporal; 95.25 kg; Height 5 ft. 11 in.; BMI: 29.2; Pain 5/10, Adult; nj1 15:38 15:37 Response: No adverse reaction; IV Status: Completed infusion; IV Intake: 100ml [id number]
[2023-11-16 14:33] LABS: PT Prothrombin Time 18.4 SECONDS (9.5-12.5); Protime INR 1.7
--- NOTE | 2023-11-16 14:49 | P.HP ---
Certification for Inpatient Patient admitted to: Inpatient With expected LOS: >2 Midnights Patient will require the following post-hospital care: None Practitioner: I am a practitioner with admitting privileges, knowledge of patient current condition, hospital course, and medical plan of care. Services: Services provided to patient in accordance with Admission requirements found in Title 42 Section 412.3 of the Code of Federal Regulations Patient History Date of Service: 11/16/23 Reason for admission: Small bowel obstruction History of Present Illness: 68-year-old male with history of COPD on chronic steroids/home O2, hypertension, hyperlipidemia, chronic diastolic congestive heart failure, atrial fibrillation on chronic anticoagulation presents to the emergency department with chief complaint of abdominal pain. He reports his pain began yesterday and has become worse associated with distention, vomiting. Last episode of vomiting was this morning 11/15. Last bowel movement was 3 to 4 days ago, he has been passing gas since this morning. He was evaluated in the emergency department his labs are significant for leukocytosis with a white blood cell count of 21.8 hemoglobin 12.3 hematocrit 37.9 sodium 130 chloride [address] abdomen pelvis was performed which demonstrated small bowel obstruction secondary to left inguinal hernia, hernia was reduced by ED physician and general surgery has been consulted. Surgery request cardiology clearance. Patient to be admitted to the hospital service for further evaluation and management of small bowel obstruction secondary to left inguinal hernia Of note blood cultures from previous hospitalization from 11/11 to 11/12 were reviewed, 4/4 positive for strep mitis, these were sensitive to levofloxacin which patient was prescribed at that time. Patient denies fever/chills at home. Repeat blood cultures ordered today and patient will get antibioticsZosyn Allergies No Known Allergies Allergy (Verified 11/12/23 14:18) Home Medications: Amlodipine [Norvasc*] 10 mg PO DAILY 02/22/23 Apixaban [Eliquis] 5 mg PO BID 02/22/23 Spironolactone 25 mg PO DAILY 02/22/23 Roflumilast [Daliresp*] 500 mcg PO DAILY 30 Days #30 tab 05/20/23 Tamsulosin [Flomax*] 0.4 mg PO DAILY 06/29/23 Fluticasone/Umeclidin/Vilanter [Trelegy Ellipta 100-62.5-25] 1 each IH DAILY #1 inh 08/20/23 Ipratropium/Albuterol Sulfate [Iprat-Albut 0.5-3(2.5) mg/3 ml] 3 ml IH Q6H PRN #120 amp 08/20/23 Albuterol Inhaler [Ventolin Inhaler*] 2 puff IH Q6H PRN #2 inhaler 08/27/23 Nebulizer 1 each MC ONCE #1 ea 08/27/23 acetaZOLAMIDE [Diamox*] 250 mg PO BID #60 tab 08/27/23 Albuterol Neb [Proventil 0.083% Neb Soln] 2.5 mg NEB Q6HP PRN amp 11/13/23 levoFLOXacin [Levaquin] 750 mg PO DAILY 5 Days #5 tab 11/13/23 predniSONE [Deltasone*] 10 mg PO DAILY #30 tab 11/13/23 - Past Medical/Surgical History Diabetic: No -: COPD on chronic home O2/steroids -: Hypertension -: Alcohol abuse -: Hyponatremia -: Diastolic CHF -: Pneumonia -: A-fibon chronic anticoagulation -: Hernia repair -: left leg wound -: Left foot cancer removal Psychosocial/ Personal History: Patient is . He lives at home and has home health. - Family History Father -: Heart disease Brother -: Lung disease - Social History Smoking Status: Current every day smoker Alcohol use: No CD- Drugs: No Caffeine use: No Place of Residence: Home Review of Systems 10-point ROS is otherwise unremarkable Gastrointestinal: Nausea, Vomiting, Abdominal Pain Physical Examination - Physical Exam General: Alert, In no apparent distress, Oriented x3 HEENT: Atraumatic, PERRLA, Mucous membr. moist/pink Neck: Supple, 2+ carotid pulse no bruit, No LAD Respiratory: Clear to auscultation bilaterally, Normal air movement Cardiovascular: Normal S1 S2, Irregular heart rate/rhythm (A-fib rate around 100) Gastrointestinal: Hypoactive, Soft and benign, Distended Musculoskeletal: No tenderness Integumentary: No rashes Neurological: Normal speech, Normal strength at 5/5 x4 extr, Normal tone, Normal affect - Studies Laboratory Data (last 24 hrs) 11/16/23 11/16/23 11/16/23 13:45 11:17 11:17 WBC 21.80 H Hgb 12.3 L Hct 37.9 L Plt Count 257 PT 18.4 H INR 1.70 APTT 33.0 Sodium 130 L Potassium 4.3 BUN 26 H Creatinine 1.03 Glucose 121 H Magnesium 2.4 Total Bilirubin 0.6 AST 20 ALT 21 Alkaline Phosphatase 70 Lipase 22 Assessment and Plan - Plan Assessment: Small bowel obstruction secondary left inguinal hernia-reduced in ED SIRS criteria/leukocytosis Recent positive blood cultures Chronic diastolic congestive heart failure COPD on chronic home O2/steroids Atrial fibrillation on chronic anticoagulation therapy Hypertension Tobacco use disorder Plan: Small bowel obstruction secondary left inguinal hernia-reduced in ED SIRS criteria/leukocytosis Recent positive blood cultures Blood cultures from 11/12 positive for strep mitis 11/24 Patient was prescribed Levaquin at this time which it is sensitive to Blood cultures repeated today 11/15 Continue antibioticsZosyn General surgery consulted-request cardiology perioperative assessment Cardiology consulted Lactate pending No definitive source of infection noted at this time Chronic diastolic congestive heart failure Does not appear overloaded Will give gentle IV fluids Monitor volume status closely COPD on chronic home O2/steroids Hold oral medications, as needed nebulizer treatments, supplemental oxygen Atrial fibrillation on chronic anticoagulation therapy Last dose of Eliquis morning of 11/14 Hold Eliquis, SCDs for today, will give dose of therapeutic Lovenox tonight if not having surgery Hypertension Hold oral medications for now restart when appropriate Tobacco use disorder Counseled on need for cessation DVT PPX: SCD Code status: Full Discharge Plan: Home Plan to discharge in: Greater than 2 days - Advance Directives Does patient have a Living Will: No Does patient have a Durable POA for Healthcare: No - Code Status/Comfort Care Code Status Assessed: Yes (Full code) Critical Care: No Time Spent Managing Pts Care (In Minutes): 70
[2023-11-16] MEDS: MORPHINE 2 MG/ML SYR IV PRN (16:50)
[2023-11-16] MEDS: NA CHLORIDE 0.9% 1,000 ML IV SCH (16:50)
--- NOTE | 2023-11-16 17:00 | EKG ---
Test Date: 2023-11-16 Test Time: 10:54:29 Field Secretary: DOROTHY MEASUREMENT RESULTS: Intervals: Rate: 106 MA: 170 QRSD: 78 QT: 340 QTc: 451 Imperial: P: 66 MA: 170 QRS: 53 T: 63 INTERPRETIVE STATEMENTS: Sinus tachycardia with frequent premature ventricular complexes Biatrial enlargement Early repolarization Abnormal ECG Compared to ECG 11/11/2023 15:58:08 Ventricular premature complex(es) now present Early repolarization now present Sinus rhythm no longer present Electronically Signed On 11-16-23 16:59:34 CDT by Curtis Sotelo
[2023-11-16] MEDS: PIPER TAZO 3.375 GM in NA CHLORIDE 0.9% 100 ML IV SCH (20:05)
--- NOTE | 2023-11-16 21:00 | CON ---
Date of Consultation: 11/16/2023 Reason For Consultation: Cardiac preoperative risk assessment. History Of Present Illness: 68-year-old male, history of COPD, hypertension, dyslipidemia, diastolic heart failure, AFib, on anticoagulation, presented with abdominal pain, nausea and vomiting and had findings suggestive of small bowel obstruction. I was asked to assess his cardiac risk preoperativel y for possible intraabdominal surgery for small bowel obstruction. The patient is patient of my prac becca and he had a stress test, end of February last year, as well as an echo and no abnormalities. Denie s having any chest pain. He is active without any chest pain. Can do more than 4 METs without any l imitations. Denies having any chest pain at the present time. Past Medical History: As outlined above in the HPI. Medications: Refer to reconciliation sheet for detailed list. Allergies: NO KNOWN DRUG ALLERGIES. Family History: No premature coronary artery disease or cancer. Social History: Active smoker. Does not drink or use any drugs. Review of Systems: All systems were reviewed, they were negative except what was mentioned in the HPI. Physical Examination: Vital Signs: Reviewed. Head and Neck: Pupils are equal, reactive to light. Intact eye movements. No JVD. No cervical lym phadenopathy. Neck is supple. Thyroid is not enlarged. Lungs: Clear to auscultation bilaterally. No rhonchi, wheezing, or crackles. No accessory muscle u se. Heart: Irregularly irregular. No extra sounds. Abdomen: Soft, nontender. Bowel sounds positive. No organomegaly. No masses or hernia. No rigidi ty or rebound. Extremities: 1+ edema bilaterally. No clubbing or cyanosis. Intact pulses. Skin: No rash or nodule. Neurologic: Alert, awake, oriented x3. No acute focal deficits appreciated. Investigations: BUN 26, creatinine 1.03. NT-proBNP is 511. Troponin is 26, and hemoglobin is 12.3, [place] [address]. Assessment And Recommendations: 1.Cardiac preoperative risk assessment. The patient is well known to me. A stress test within the past year is negative and normal ejection fraction and no major cardiac valvular disease. He is at l ow cardiac risk to proceed and this surgery is rather emergent. No further cardiac workup is recomme nded before the surgery if the surgery is deemed to be necessary. 2.Atrial fibrillation, controlled rate. Continue home medications. 3.Small bowel obstruction, wide-spectrum antibiotics and Surgery on board. Likely will need an inte rvention. I will monitor the patient with you postoperatively. /NORA Voice ID: [id number] Report ID: [id number]
--- NOTE | 2023-11-17 04:32 | CON ---
Date of Consultation: 11/16/2023 Reason For Service: Incarcerated recurrent left inguinal hernia with small bowel obstruction. History Of Present Illness: This is a case of a 68-year-old patient with history of COPD, on chronic O2 and chronic steroid; hypertension; hyperlipidemia; congestive heart failure; atrial fibrillation, on anticoagulation, who comes to us with small bowel obstruction. They believe the point of that wa s the left inguinal region. The ER physician reduced that as much as he can, and then called me to s if it is possible to fix this hernia at the same time the patient was admitted with small bowel ob struction. The person stated that he had that hernia repaired many years ago, at least more than 20 years ago, the left side came back. He has not been able to fix that and then noticed in the last da y swelling of his abdomen with nausea consistent with the findings that we have, small bowel obstruct ion. He feels better after reduction, still some tissue present in that area, cannot rule out small bowel. The patient had extensive cardiac history, so cardiac clearance has been requested to help us to guess a little better his outcome after and also he is on blood thinners, which is going to be he ld for the next few hours. Allergies: NONE. Medications: Include Eliquis; Norvasc; Flomax; Ventolin; Diamox; Proventil; Levaquin; Deltasone, whi ch is prednisone. Past Medical History: Includes COPD, on chronic O2 and the patient on chronic steroids; hypertension ; alcohol abuse; hyponatremia; diastolic congestive heart failure; history of pneumonia; atrial fibri llation, on anticoagulation. Past Surgical History: Previous surgeries as above include bilateral inguinal hernia repair and he h as some kind of cancer removed from the left foot. Social History: He smokes. He was advised the importance of smoking cessation. He does not use alc ohol. Family History: Includes heart disease and lung disease. Review of Systems: Nausea; abdominal pain; left inguinal pain when he came initially, got better after the reduction, bu t is still present, the bulging in that area although less. Physical Examination: General: The patient is awake, alert, oriented x3. HEENT: Pupils are equal and reactive. Anicteric. Neck: Supple. Chest: Clear. Heart: S1, S2. Abdomen: Soft and depressible, softly distended. In the left inguinal region, the patient has a lef t inguinal hernia, recurrent. There is no guarding or rebound, but there is some tissue still presen t in that region, even though after reduced by the ER physician. Neurological: Normal speech. Laboratory Data: Blood work shows WBC count of 21.8, hemoglobin 12.3, platelets of 257. INR of 1.7. Chloride 73, creatinine is 1.03, glucose 121. CAT scan of the abdomen and pelvis, interpreted by Mikki Gallagher as left inguinal hernia, obstructing the small bowel with small bowel dilatation. Assessment: 68-year-old patient with multiple medical problems, on anticoagulation with incarcerated left inguinal hernia causing small bowel obstruction. Plan: The patient was admitted to the hospital, started IV hydration. Cardiac clearance has been re quested. We could also hold the blood thinners and then he will go for repair of recurrent left ingu inal hernia with possible mesh, possible bowel resection, possible laparotomy depends on findings. H e understands the benefits, alternatives, and risks, which include, but not limited to, infection, bl eeding, damage to adjacent structures, anesthesia complication, pneumonias, congestive heart failure, nonhealing wounds, abscess, infection, seroma, FL, even . He ate, so we are going to keep the patient n.p.o. after midnight. JUDY/NORA Voice ID: [id number] Report ID: [id number]
[2023-11-17] MEDS: ONDANSETRON 4 MG/2 ML VIAL IV PRN (05:44)
[2023-11-17 07:02] LABS: Absolute Eosinophils 0.1 K/uL (0-0.5); Absolute Lymphocytes (CBC) 0.6 K/uL (0.7-4.9); Absolute Monocytes 0.9 K/uL (0.1-1.3); Absolute Neutrophil 9.4 K/uL (1.8-8.0); Basophils % 0.3 % (0-1.3); Eosinophils % 0.8 % (0-4.4); Hematocrit 32.1 % (39.6-49.0); Hemoglobin 10.4 g/dL (13.6-17.9); Lymphocytes % 5.3 % (15.3-44.8); MCH 26.7 pg (27.0-35.0); MCHC 32.4 g/dL (32.0-36.0); MCV 82.2 fL (80-100); MPV 7.3 fL (7.6-11.3); Neutrophils % 85.6 % (41.7-73.7); Platelets 240 thou/uL (152-406); RBC Red Blood Cell Count 3.91 M/uL (4.33-5.43); Red Cell Distribution Width 15.2 % (12.1-15.2)
[2023-11-17 07:22] LABS: Albumin 2.5 g/dL (3.4-5.0); Anion Gap 7.5 mEq/L (5.0-15.0); Bilirubin Total 0.5 mg/dL (0.2-1.0); Potassium 4.5 mEq/L (3.5-5.1); Protein, Total 5.5 g/dL (6.4-8.2)
[2023-11-17 07:23] LABS: Albumin/Globulin Ratio 0.8 (1.1-1.8)
--- NOTE | 2023-11-17 09:33 | RAD REPORT ---
EXAM DESCRIPTION: RAD - Abdomen 1 View (KUB) - 11/17/2023 6:06 am CLINICAL HISTORY: eval bowel gas/sbo COMPARISON: Abdomen Pelvis W Contrast dated 11/16/2023 TECHNIQUE: Single AP view of the abdomen. FINDINGS: Marked distention of the stomach and central abdominal small bowel. Most prominent gas-beverley led small bowel loops in the left flank measures up to 6.3 cm in caliber. Moderate stool burden along the ascending colon. No suspicious calcifications. No significant bony abnormality. IMPRESSION: Dilated stomach and central abdominal small bowel loops, suggesting persistent obstructi on.
--- NOTE | 2023-11-17 11:53 | P.PN ---
Date of Service: 11/17/23 Subjective: Still with abdominal pain Denies vomiting No acute events overnight ROS: 10 point ROS as noted above, otherwise negative Physical exam GEN: Alert, oriented, NAD HEENT: Normal conjunctiva, sclera anicteric CV: Regular rate and rhythm, no edema Pulm: Nonlabored respirations on room air ABD: Soft, nontender, mildly distended, mild generalized abdominal tenderness MSK: No joint tenderness Integumentary: No rashes Neuro: Normal speech, normal affect Vitals reviewed Assessment: Small bowel obstruction secondary left inguinal hernia-reduced in ED SIRS criteria/leukocytosis Recent positive blood cultures Chronic diastolic congestive heart failure COPD on chronic home O2/steroids Atrial fibrillation on chronic anticoagulation therapy Hypertension Tobacco use disorder Plan: Small bowel obstruction secondary left inguinal hernia-reduced in ED SIRS criteria/leukocytosis Recent positive blood cultures Blood cultures from 11/12 positive for strep mitis 11/24 Patient was prescribed Levaquin at this time which it is sensitive to Blood cultures repeated today 11/15-pending Continue antibioticsZosyn Lactate WNL Seen by cardiology prior to surgery for clearance Plan for surgical intervention this afternoon Chronic diastolic congestive heart failure Does not appear overloaded Will give gentle IV fluids Monitor volume status closely COPD on chronic home O2/steroids Hold oral medications, as needed nebulizer treatments, supplemental oxygen Atrial fibrillation on chronic anticoagulation therapy Last dose of Eliquis morning of 11/14 Hold Heriberto Martinez for now Discuss further with general surgery after surgical intervention to determine when appropriate to restart anticoagulation Hypertension Hold oral medications for now restart when appropriate Tobacco use disorder Counseled on need for cessation DVT PPX: SCD Code status: Full Discharge Plan: Home Plan to discharge in: Greater than 2 days Time Spent Managing Pts Care (In Minutes): 35
[2023-11-17] MEDS: NA CHLORIDE 0.9% 500 ML IV ONE (12:32)
--- NOTE | 2023-11-17 13:03 | PN ---
Date of Progress Note: 11/17/2023 Subjective: Seen by bedside. Doing clinically well. No chest pain. Review of Systems: No chest pain, shortness of breath, orthopnea, cough. No nausea, vomiting, diarrhea. All other syst ems reviewed, they are negative. Physical Examination: Vital Signs: Reviewed. Head and Neck: Pupils are equal, reactive to light. Intact eye movements. No JVD. No cervical lym phadenopathy. Neck is supple. Thyroid is not enlarged. Lungs: Clear to auscultation bilaterally. No rhonchi, wheezing, or crackles. No accessory muscle u se. Heart: Regular rate and rhythm. No extra sounds. Abdomen: Soft, nontender. Bowel sounds positive. No organomegaly. No masses or hernia. No rigidi ty or rebound. Extremities: No edema, clubbing, or cyanosis. Intact pulses. Skin: No rash. No ulcers. Neuro: Alert, awake, oriented x3. No acute focal deficits appreciated. Investigations: BUN 18, creatinine 0.77, and hemoglobin is 10.4. Assessment/recommendations: 1.Small bowel obstruction. From the cardiac perspective, he is at low cardiac risk for surgery to mahin costello and I will monitor the patient clinically afterwards. 2.Atrial fibrillation. Condition is controlled. Continue current management. 3.Hypertension. Blood pressure is controlled. Continue current therapy. SR/MODL Voice ID: [id number] Report ID: [id number]
[2023-11-17] MEDS ORDERED: FENTANYL CITR 100 MCG/2 ML ONE (13:06)
[2023-11-17] MEDS ORDERED: MIDAZOLAM HCL 2 MG/2 ML INJ ONE (13:06)
[2023-11-17] MEDS ORDERED: LIDOCAINE 2% MPF 5 ML VIAL ONE (13:06)
[2023-11-17] MEDS ORDERED: dexAMETHasone 10 MG/ML VIAL ONE ×2 (13:06→15:21)
[2023-11-17] MEDS ORDERED: ONDANSETRON 4 MG/2 ML VIAL ONE (13:06)
[2023-11-17] MEDS ORDERED: propofoL 200 MG/20 ML VIAL IV ONE (13:06)
[2023-11-17] MEDS ORDERED: KETOROLAC 30 MG/ML INJ ONE (13:06)
[2023-11-17] MEDS: Ringers Lactate 1,000 ML IV ONE ×2 (13:30→15:46)
[2023-11-17] MEDS: SUCCINYLCHOLINE 20 MG/ML (10 ML) IV ONE (13:38)
[2023-11-17] MEDS: HYDROCORTISONE SUC 250 MG INJ ONE (14:02)
[2023-11-17] MEDS ORDERED: NS 0.9% VIAL 10 ML ONE (14:42)
[2023-11-17] MEDS ORDERED: VECURONIUM 10 MG/VIAL IV ONE (14:42)
[2023-11-17] MEDS ORDERED: EPINEPHRINE 1 MG/ML VIAL ONE (15:20)
[2023-11-17] MEDS: SUGAMMADEX SODIUM 200 MG/2 ML VIAL IV ONE (15:41)
--- NOTE | 2023-11-17 16:29 | P.BOP ---
Preoperative diagnosis: small bowel obstruction, incarcerated left inguinal hernia, COPD, CHF Postoperative diagnosis: same Primary procedure: 1. Exploratory laparotomy, 2. small bowel resection with anastomosis Secondary procedure: 3. open repair of strangulated left inguinal hernia Estimated blood loss: <100cc Specimen: small bowel Findings: non viable small bowel Anesthesia: General Complications: None Drain(s): SILVESTRE drain Transferred to: Recovery Room Condition: Good
--- NOTE | 2023-11-17 17:02 | RAD REPORT ---
EXAM DESCRIPTION: RAD - Abdomen 1 View (KUB) - 11/17/2023 4:53 pm CLINICAL HISTORY: Device placement/nasogastric tube placement FINDINGS: Nasogastric tube has its tip at the junction of the distal stomach/proximal duodenum
[2023-11-17] MEDS ORDERED: NA CHLORIDE 0.9% 100 ML ONE (18:27)
[2023-11-17] MEDS ORDERED: PIPERACIL/TAZO 3.375 GM VIAL IV ONE (18:27)
[2023-11-17] MEDS ORDERED: NA CHLORIDE 0.9% 1,000 ML ONE (18:28)
[2023-11-17] MEDS: NA CHLORIDE 0.9% 1,000 ML IV SCH (19:00)
--- NOTE | 2023-11-18 01:54 | OP ---
Date of Procedure: 11/17/2023 Surgeon: Laron Forrest MD Preoperative Diagnoses: Small bowel obstruction, incarcerated left inguinal hernia, chronic obstruct shaina pulmonary disease, congestive heart failure. Postoperative Diagnoses: Small bowel obstruction, incarcerated left inguinal hernia, chronic obstruc tive pulmonary disease, congestive heart failure. Procedures: Exploratory laparotomy, small bowel resection with anastomosis, open repair of strangula lata left inguinal hernia. Estimated Blood Loss: Less than 100 cc. Specimen: Small bowel. Findings: Nonviable small bowel and also a left inguinal hernia, recurrent. Complications: None. Drains: SILVESTRE #10. Indications: This is a case of a 68-year-old patient who comes to us with incarcerated left inguinal hernia and small bowel obstruction. The patient has extensive history includes COPD, congestive hea rt failure, is still smoking, on O2 dependence, so we asked medical doctor to evaluate the patient an d also the Cardiology. Once we have clearance, we explained to the patient the need for repair of in carcerated left inguinal hernia with possible laparotomy, possible resection with benefits, alternati ves, and risks including, but not limited to infection, bleeding, damage to adjacent structures, anes thesia complication, recurrence, LA, and even . He also understands this may not relieve the sy mptoms. He might need more than one surgical intervention. He understood the importance of losing w eight. The importance of smoking consult was given. He signed a consent. Description Of Procedure: The patient was brought to the operating room, placed in supine position, anesthesia was done without complication. Left inguinal region and abdomen were prepped and draped i n usual sterile fashion after time-out was called. After that, an incision was made in the left ingu inal region. Incision was carried down to Marya fascia until we went to the external aponeurosis. When we opened that area, we noticed the patient to have this incarcerated tissue, not only his fat t issue, but also intestines and we noticed that intestines not to be viable. We tried to get it, but that intestines were tracked with adhesions in that region. The problem has been there for some time . This was just the cause of the obstruction now. I have it worse. So, we did not to force intesti vic through that area. They did not want to reduce neither. So, I have to then at that moment obtai n an instrument for a laparotomy. An infraumbilical incision was make. Laparotomy was done. Fascia was opened. Now, we investigate the area and with the help of external pressure from the inguinal r egion and small pulling from inside, we were able to reduce the intestines and then, we noticed the p atient to have a very distended bowel before the obstruction, collapsed bowel after the obstruction w ith that nonviable tissue, so we obtained proximal and distal control and resected the intestines and the mesentery was ligated with the help of LigaSure. After that to help us with the closure, we mad e an enterotomy in the proximal part, then we suctioned that area and ran the bowel. Once the bowel was collapsed, then we make an enterotomy on the distal part, and then fired a LINDSAY 80 in between. In spected the area. No bleeding. I then closed the enterotomy with TA60. Excellent anastomosis in be tween, flow comes from proximal to distal nicely. No bleeding. Silk was placed at the base of the s uture line. The mesentery was closed with 3-0 chromic. Bowel was placed back in and profuse irrigat ion of the abdomen. We noticed the patient to have constipation with some stool felt in the small zoe wel, probably another mechanism that triggers this. Profuse irrigation of the abdomen was done. We proceeded to close the deep inguinal ring with the help of Prolene making sure we protected spermatic cord structures and also protect the iliac vessels. We also closed external oblique aponeurosis howard ing sure the nerves were protected with 2-0 Prolene; first with #1 Prolene, then 2-0 Prolene, then Sc arpa fascia with 3-0 chromic and skin with ilda. Once we have that, we went back to the abdomen, making sure the NG tube was in place properly. Once again, obtaining instrument count and sponge cou nt correct, checked once again the viability of the rest of the bowel. Anastomosis intake intact wit h no bleeding. SILVESTRE drain was left in the area of the pelvis exiting to the right lower quadrant and a fter that, we proceeded then to close the laparotomy with #2 nylon in a running fashion, with 3-0 chr omic and 0 chromic and the subcutaneous tissue and the skin with ilda. Sponge count and instrumen t counts were correct. Patient tolerated the procedure well. Patient sent to the ICU in stable cond ition. HM/MODL Voice ID: [id number] Report ID: [id number]
[2023-11-18] MEDS: MORPHINE 4 MG/ML SYR IV PRN (03:13)
[2023-11-18 04:53] LABS: Absolute Lymphocytes (CBC) 0.2 K/uL (0.7-4.9); Absolute Monocytes 0.4 K/uL (0.1-1.3); Basophils % 0.1 % (0-1.3); Hematocrit 30.9 % (39.6-49.0); Lymphocytes % 2.1 % (15.3-44.8); MCHC 32.5 g/dL (32.0-36.0); MCV 83.2 fL (80-100); MPV 7.2 fL (7.6-11.3); Monocytes % 4.2 % (3.3-12.3); Platelets 236 thou/uL (152-406); RBC Red Blood Cell Count 3.71 M/uL (4.33-5.43); Red Cell Distribution Width 14.9 % (12.1-15.2)
[2023-11-18 05:02] LABS: Albumin 2.3 g/dL (3.4-5.0); Albumin/Globulin Ratio 0.8 (1.1-1.8); Anion Gap 7.1 mEq/L (5.0-15.0); Bilirubin Total 0.5 mg/dL (0.2-1.0); Globulin 2.9 g/dL (2.3-3.5); Potassium 5.1 mEq/L (3.5-5.1); Protein, Total 5.2 g/dL (6.4-8.2)
[2023-11-18 05:03] LABS: Neutrophils % 93.6 % (41.7-73.7)
[2023-11-18] MEDS ORDERED: IPRATROPIUM BROM 0.5MG/2.5ML ONE ×2 (09:36→20:48)
[2023-11-18] MEDS ORDERED: ALBUTEROL 2.5 MG/3 ML NEB SOL ONE ×3 (09:36→20:48)
[2023-11-18] MEDS: IPRATROPIUM BROM 0.5MG/2.5ML NEB PRN (09:46)
[2023-11-18] MEDS: ALBUTEROL 2.5 MG/3 ML NEB SOL NEB PRN (09:46)
--- NOTE | 2023-11-18 11:41 | P.PN ---
Date of Service: 11/18/23 Subjective: S/P surgery 11/16 Still with some pain but improved ROS: 10 point ROS as noted above, otherwise negative Physical exam GEN: Alert, oriented, NAD HEENT: Normal conjunctiva, sclera anicteric, NGT in place CV: Regular rate and rhythm, no edema Pulm: Nonlabored respirations on room air ABD: Soft, mild tenderness, abd binder in place MSK: No joint tenderness Integumentary: No rashes Neuro: Normal speech, normal affect Vitals reviewed Assessment: Small bowel obstruction, incarcerated left inguinal hernia S/P Exploratory laparotomy, small bowel resection with anastomosis and open repair of strangulated left inguinal hernia 11/16 SIRS criteria/leukocytosis Recent positive blood cultures Chronic diastolic congestive heart failure COPD on chronic home O2/steroids Atrial fibrillation on chronic anticoagulation therapy Hypertension Tobacco use disorder Plan: Small bowel obstruction, incarcerated left inguinal hernia S/P Exploratory laparotomy, small bowel resection with anastomosis and open repair of strangulated left inguinal hernia 11/16 SIRS criteria/leukocytosis NGT in place to LIWS, NPO Abdominal binder in place General surgery to advise for diet Recent positive blood cultures Blood cultures from 11/12 positive for strep mitis 11/24 Patient was prescribed Levaquin at this time which it is sensitive to Blood cultures repeated 11/15-No growth in 24 hours Continue antibioticsZosyn Lactate WNL Seen by cardiology prior to surgery for clearance Chronic diastolic congestive heart failure Does not appear overloaded Will give gentle IV fluids Monitor volume status closely COPD on chronic home O2/steroids Hold oral medications, as needed nebulizer treatments, supplemental oxygen Atrial fibrillation on chronic anticoagulation therapy Last dose of Eliquis morning of 11/14 Hold ADDISON Martinezs for now Discuss further with general surgery to determine when appropriate to restart anticoagulation Hypertension Hold oral medications for now restart when appropriate Tobacco use disorder Counseled on need for cessation DVT PPX: SCD Code status: Full Discharge Plan: Home Plan to discharge in: Greater than 2 days Time Spent Managing Pts Care (In Minutes): 35
[2023-11-18] MEDS ORDERED: HYDROMORPHONE HCL 1 MG/ML INJ ONE ×3 (13:02→20:39)
[2023-11-18] MEDS: HYDROMORPHONE HCL 1 MG/ML INJ IV PRN (13:10)
[2023-11-18] MEDS: NA CHLORIDE 0.9% 1,000 ML IV SCH (13:11)
--- NOTE | 2023-11-18 13:12 | P.PN ---
Subjective Date of Service: 11/18/23 Chief Complaint: Small bowel obstruction Subjective: New changes (Patient is S/P lapratomy for small bowel obstruction, tolerated procedure well) Review of Systems 10-point ROS is otherwise unremarkable Physical Examination - Vital Signs Temperature: 98.0 F Blood Pressure: 104/75 Pulse: 90 Respirations: 20 Pulse Ox (%): 96 - Physical Exam General: Alert, Oriented x3 HEENT: Atraumatic Neck: Supple Respiratory: Clear to auscultation bilaterally Cardiovascular: No edema, Normal S1 S2 Gastrointestinal: Normal bowel sounds Assessment And Plan - Current Problems (Diagnosis) (1) Atrial fibrillation Current Visit: No Status: Acute Plan: Patient is currently in sinus rhythm. continue to monitor on tele also patient will need to be re started on Eliquis 5 mg BID once ok with surgical team. (2) Chronic diastolic heart failure Current Visit: No Status: Chronic Plan: currently euvolemic on exam, will monitor volume status on daily basis, continue gentle hydration. (3) Hypertension Current Visit: No Status: Chronic Plan: once patient is able to take PO, please start patient back on Spirnolactone 25 mg daily. He also used to be on Norvasc 10 mg daily (we will continue to monitor). Qualifiers:
[2023-11-18] MEDS: ALBUTEROL 2.5 MG/3 ML NEB SOL NEB SCH (13:34)
[2023-11-18] MEDS ORDERED: NA CHLORIDE 0.9% 1,000 ML ONE (15:00)
--- NOTE | 2023-11-18 15:36 | PN ---
Date of Progress Note: 11/18/2023 Diagnosis: Status post laparotomy and small bowel resection, anastomosis, repair of left inguinal he rnia. Subjective: Patient is doing well. Awake and alert. No nausea. No vomiting. NG tube is still put ting about 1000 cc. Objective: Chest: Clear. Abdomen: Soft and depressible. Bowel sounds negative. SILVESTRE drain clear. Extremities: Good capillary refill. Plan: Continue ICU. Continue antibiotics. Rehab for out of bed to chair. Incentive spirometry. HM/MODL Voice ID: [id number] Report ID: [id number]
[2023-11-18] MEDS ORDERED: ENOXAPARIN 40 MG/0.4 ML SQ ONE (17:07)
[2023-11-18] MEDS ORDERED: NA CHLORIDE 0.9% 100 ML ONE (17:07)
[2023-11-18] MEDS ORDERED: PIPERACIL/TAZO 3.375 GM VIAL IV ONE (17:08)
[2023-11-18] MEDS: ENOXAPARIN 40 MG/0.4 ML SQ ONE (17:13)
[2023-11-18] MEDS: IPRATROPIUM BROM 0.5MG/2.5ML NEB SCH (20:55)
[2023-11-19] MEDS ORDERED: PIPERACIL/TAZO 3.375 GM VIAL IV ONE (00:23)
[2023-11-19] MEDS ORDERED: NA CHLORIDE 0.9% 100 ML ONE (00:23)
[2023-11-19] MEDS ORDERED: ALBUTEROL 2.5 MG/3 ML NEB SOL ONE ×2 (01:46→07:49)
[2023-11-19] MEDS ORDERED: IPRATROPIUM BROM 0.5MG/2.5ML ONE ×2 (01:46→07:49)
[2023-11-19 05:35] VITALS: BMI 29.2
[2023-11-19 05:40] LABS: Absolute Lymphocytes (CBC) 0.7 K/uL (0.7-4.9); Absolute Monocytes 0.9 K/uL (0.1-1.3); Absolute Neutrophil 6.4 K/uL (1.8-8.0); Basophils % 0.2 % (0-1.3); Eosinophils % 0.3 % (0-4.4); Hematocrit 29.8 % (39.6-49.0); Hemoglobin 9.3 g/dL (13.6-17.9); Lymphocytes % 8.7 % (15.3-44.8); MCH 26.3 pg (27.0-35.0); MCHC 31.2 g/dL (32.0-36.0); MCV 84.3 fL (80-100); MPV 7.1 fL (7.6-11.3); Monocytes % 10.9 % (3.3-12.3); Neutrophils % 79.9 % (41.7-73.7); Platelets 250 thou/uL (152-406); RBC Red Blood Cell Count 3.53 M/uL (4.33-5.43); Red Cell Distribution Width 14.6 % (12.1-15.2)
[2023-11-19 06:23] LABS: ALT/SGPT 15 U/L (16-61); AST/SGOT 11 U/L (15-37); Albumin 2.3 g/dL (3.4-5.0); Albumin/Globulin Ratio 0.7 (1.1-1.8); Alkaline Phosphatase 42 U/L (45-117); BUN Blood Urea Nitrogen 13 mg/dL (7-18); Bilirubin Total 0.4 mg/dL (0.2-1.0); Globulin 3.1 g/dL (2.3-3.5); Glomerular Filtration Rate 103 ml/min (=/>90); Glucose Level 104 mg/dL (74-106); Potassium 3.7 mEq/L (3.5-5.1); Protein, Total 5.4 g/dL (6.4-8.2); Sodium Level 143 mEq/L (136-145)
[2023-11-19 06:24] LABS: Bicarbonate > 45 mEq/L (21-32)
--- NOTE | 2023-11-19 08:11 | RAD REPORT ---
EXAM DESCRIPTION: RAD - Chest Single View - 11/19/2023 8:01 am CLINICAL HISTORY: cough, S/P abd surgery Chest pain. COMPARISON: <Comparisons> FINDINGS: Portable technique limits examination quality. Mild to moderate atelectasis is present in both lung bases. Small left pleural effusions, greater on the left. The heart is normal in size. No displaced fractures.Enteric tube descends in the abdomen. IMPRESSION: Bibasilar subsegmental atelectasis is present, greater on the left. Small bilateral pleu ral effusions, also greater on the left.
[2023-11-19] MEDS: KCL 20 MEQ/100 mL IVPB 20 MEQ/100 ML BAG IV SCH (08:14)
--- NOTE | 2023-11-19 09:36 | PN ---
Date of Progress Note: 11/19/2023 Diagnoses: Small bowel obstruction, status post laparotomy, bowel resection. Subjective: The patient is doing well. No complaint. No nausea, no vomiting, started passing gas. The patient wants the NG tube out and I agree. Objective: Chest: Clear. Abdomen: Soft and depressible. Bowel sounds starting to show up. Midline is intact. Extremities: Good capillary refill. No calf tenderness. Laboratory Data: The blood work was reviewed. Plan: Out of bed, discontinue Garza, discontinue NG tube. Move to the floor if okay with medicine. Concerning diet, still believe this is too soon at this moment to get a full diet. He wants some ju st Jell-O, so we are going to give water and Jell-O. In the meantime, we are going to start clear li quid diet tomorrow if he continues to progress. JUDY/NORA Voice ID: [id number] Report ID: [id number]
[2023-11-19] MEDS ORDERED: HYDROMORPHONE HCL 1 MG/ML INJ ONE (11:55)
--- NOTE | 2023-11-19 12:31 | P.PN ---
Date of Service: 11/19/23 Subjective: Doing well this morning requesting clear liquids ROS: 10 point ROS as noted above, otherwise negative Physical exam GEN: Alert, oriented, NAD HEENT: Normal conjunctiva, sclera anicteric, NGT in place CV: Regular rate and rhythm, no edema Pulm: Nonlabored respirations on room air ABD: Soft, mild tenderness, abd binder in place MSK: No joint tenderness Integumentary: No rashes Neuro: Normal speech, normal affect Vitals reviewed Assessment: Small bowel obstruction, incarcerated left inguinal hernia S/P Exploratory laparotomy, small bowel resection with anastomosis and open repair of strangulated left inguinal hernia 11/16 SIRS criteria/leukocytosis Recent positive blood cultures Chronic diastolic congestive heart failure COPD on chronic home O2/steroids Atrial fibrillation on chronic anticoagulation therapy Hypertension Tobacco use disorder Plan: Small bowel obstruction, incarcerated left inguinal hernia S/P Exploratory laparotomy, small bowel resection with anastomosis and open repair of strangulated left inguinal hernia 11/16 SIRS criteria/leukocytosis NGT in place to LIWS, NPO Abdominal binder in place General surgery plans on advancing to clears 11/19 Recent positive blood cultures Blood cultures from 11/12 positive for strep mitis 11/24 Patient was prescribed Levaquin at this time which it is sensitive to Blood cultures repeated 11/15-No growth in 24 hours Continue antibioticsZosyn Lactate WNL Seen by cardiology prior to surgery for clearance Plan on downgrade, DC NGT today Chronic diastolic congestive heart failure Does not appear overloaded Will give gentle IV fluids Monitor volume status closely COPD on chronic home O2/steroids Hold oral medications, as needed nebulizer treatments, supplemental oxygen Atrial fibrillation on chronic anticoagulation therapy Last dose of Eliquis morning of 11/14 Start eliquis tonight Hypertension Blood pressure soft Will resume when appropriate Tobacco use disorder Counseled on need for cessation DVT PPX: Eliquis Code status: Full Discharge Plan: Home Plan to discharge in: Greater than 2 days Time Spent Managing Pts Care (In Minutes): 35
[2023-11-19] MEDS: ROFLUMILAST 500 MCG TABLET PO SCH (13:00)
[2023-11-19] MEDS: TAMSULOSIN 0.4 MG SR CAP PO SCH (13:00)
[2023-11-19] MEDS: METOPROLOL TARTRATE 5 MG/5 ML INJ IV STA ×2 (15:06→16:55)
[2023-11-19] MEDS: NA CHLORIDE 0.9% 1,000 ML IV SCH (18:21)
[2023-11-19] MEDS: AMIODARONE HCL 150 MG in D5W 100 ML IV STA (18:31)
[2023-11-19] MEDS: AMIODARONE HCL 900 MG in Dextrose 5%-Water 482 ML IV SCH (18:50)
[2023-11-19] MEDS: LEVALBUTEROL 0.63 MG/3 ML NEB NEB SCH (20:26)
[2023-11-19] MEDS: APIXABAN 5 MG TABLET PO SCH (21:38)
[2023-11-20 03:47] LABS: Absolute Basophils 0.1 K/uL (0-0.5); Absolute Eosinophils 0.1 K/uL (0-0.5); Absolute Neutrophil 7.5 K/uL (1.8-8.0); Basophils % 0.7 % (0-1.3); Eosinophils % 0.8 % (0-4.4); Hematocrit 30.2 % (39.6-49.0); Hemoglobin 9.6 g/dL (13.6-17.9); Lymphocytes % 10.8 % (15.3-44.8); MCH 26.4 pg (27.0-35.0); MCHC 31.7 g/dL (32.0-36.0); MCV 83.4 fL (80-100); MPV 7.5 fL (7.6-11.3); Monocytes % 10.2 % (3.3-12.3); Neutrophils % 77.5 % (41.7-73.7); Platelets 280 thou/uL (152-406); RBC Red Blood Cell Count 3.62 M/uL (4.33-5.43); Red Cell Distribution Width 14.6 % (12.1-15.2)
[2023-11-20 04:13] LABS: Albumin 2.2 g/dL (3.4-5.0); Albumin/Globulin Ratio 0.7 (1.1-1.8); Bilirubin Total 0.6 mg/dL (0.2-1.0); Globulin 3.1 g/dL (2.3-3.5); Potassium 3.3 mEq/L (3.5-5.1); Protein, Total 5.3 g/dL (6.4-8.2)
[2023-11-20 04:14] LABS: Anion Gap 6.3 mEq/L (5.0-15.0)
[2023-11-20] MEDS: KCL 20 MEQ/100 mL IVPB 20 MEQ/100 ML BAG IV SCH (07:02)
[2023-11-20] MEDS: POTASSIUM CL SA 10 MEQ TAB PO ONE (10:40)
--- NOTE | 2023-11-20 11:35 | P.PN ---
Date of Service: 11/20/23 Subjective: C/O some abd pain had BM this morning Went in to AF RVR yesterday ROS: 10 point ROS as noted above, otherwise negative Physical exam GEN: Alert, oriented, NAD HEENT: Normal conjunctiva, sclera anicteric, NGT in place CV: Afib rate 100s, no edema Pulm: Nonlabored respirations on room air ABD: Soft, mild tenderness, abd binder in place, SILVESTRE drain in place MSK: No joint tenderness Integumentary: No rashes Neuro: Normal speech, normal affect Vitals reviewed Assessment: Small bowel obstruction, incarcerated left inguinal hernia S/P Exploratory laparotomy, small bowel resection with anastomosis and open repair of strangulated left inguinal hernia 11/16 SIRS criteria/leukocytosis Recent positive blood cultures Chronic diastolic congestive heart failure COPD on chronic home O2/steroids Atrial fibrillation on chronic anticoagulation therapy Hypertension Tobacco use disorder Plan: Small bowel obstruction, incarcerated left inguinal hernia S/P Exploratory laparotomy, small bowel resection with anastomosis and open repair of strangulated left inguinal hernia 11/16 SIRS criteria/leukocytosis NGT removed 11/18 General surgery plans on advancing to clears 11/19 Recent positive blood cultures Blood cultures from 11/12 positive for strep mitis 11/24 Patient was prescribed Levaquin at this time which it is sensitive to Blood cultures repeated 11/15-No growth in 24 hours Continue antibioticsZosyn Lactate WNL Seen by cardiology prior to surgery for clearance Chronic diastolic congestive heart failure Does not appear overloaded Will give gentle IV fluids Monitor volume status closely COPD on chronic home O2/steroids Hold oral medications, as needed nebulizer treatments, supplemental oxygen Atrial fibrillation on chronic anticoagulation therapy-with RVR Back on eliquis stared on amiodarone 11/18 evening rate improved plan to transition to oral amiodarone monitor LFTs Hypertension Blood pressure soft Will resume when appropriate Tobacco use disorder Counseled on need for cessation DVT PPX: Eliquis Code status: Full Discharge Plan: Home Plan to discharge in: Greater than 2 days Time Spent Managing Pts Care (In Minutes): 35
--- NOTE | 2023-11-20 13:05 | PN ---
Date of Progress Note: 11/20/2023 Diagnoses: Status post bowel resection and anastomosis, congestive heart failure, inguinal hernia re pair. Subjective: The patient is doing better. He is now on the floor. He tolerated some sip of water an d some Jell-O yesterday, so we are going to advance him today to clear liquid diet. Objective: Vital Signs: Afebrile. Chest: Clear. Obviously, he is oxygen dependent. Abdomen: Soft and depressible. Bowel sounds are positive. Incisions are intact. Extremities: Good capillary refill. Laboratory Data: WBC count came down from 21 to 9. Platelets of 280. Plan: Out of bed is important. Incentive spirometry. Continue cardiac management. Continue antibi otics. We are going to advance diet slowly. We are going to go formally to a clear liquid diet. We are going to advance to full liquids, see if he can tolerate clear liquids for lunch. HM/MODL Voice ID: [id number] Report ID: [id number]
[2023-11-20 17:35] LABS: Anion Gap 4.7 mEq/L (5.0-15.0); Potassium 3.7 mEq/L (3.5-5.1)
[2023-11-20] MEDS: AMIODARONE HCL 200 MG TAB PO SCH (21:36)
[2023-11-21 04:38] LABS: Absolute Basophils 0.1 K/uL (0-0.5); Absolute Eosinophils 0.2 K/uL (0-0.5); Absolute Monocytes 0.7 K/uL (0.1-1.3); Basophils % 0.7 % (0-1.3); Hematocrit 30.2 % (39.6-49.0); Hemoglobin 9.7 g/dL (13.6-17.9); Lymphocytes % 11.2 % (15.3-44.8); MCH 26.5 pg (27.0-35.0); MCV 82.7 fL (80-100); MPV 7.5 fL (7.6-11.3); Monocytes % 8.2 % (3.3-12.3); Neutrophils % 77.9 % (41.7-73.7); Platelets 298 thou/uL (152-406); RBC Red Blood Cell Count 3.65 M/uL (4.33-5.43); Red Cell Distribution Width 14.8 % (12.1-15.2)
[2023-11-21 04:57] LABS: Albumin 2.1 g/dL (3.4-5.0); Albumin/Globulin Ratio 0.7 (1.1-1.8); Anion Gap 6.6 mEq/L (5.0-15.0); Bilirubin Total 0.5 mg/dL (0.2-1.0); Globulin 2.9 g/dL (2.3-3.5); Potassium 3.6 mEq/L (3.5-5.1)
[2023-11-21] MEDS: POTASSIUM CL SA 10 MEQ TAB PO ONE (08:23)
--- NOTE | 2023-11-21 13:23 | P.PN ---
Date of Service: 11/21/23 Subjective: Abd pain improving tolerating clear liquids up in recliner this morning ROS: 10 point ROS as noted above, otherwise negative Physical exam GEN: Alert, oriented, NAD HEENT: Normal conjunctiva, sclera anicteric CV: Afib rate 100s, no edema Pulm: Nonlabored respirations on room air ABD: Soft, mild tenderness, abd binder in place, SILVESTRE drain in place MSK: No joint tenderness Integumentary: No rashes Neuro: Normal speech, normal affect Vitals reviewed Assessment: Small bowel obstruction, incarcerated left inguinal hernia S/P Exploratory laparotomy, small bowel resection with anastomosis and open repair of strangulated left inguinal hernia 11/16 SIRS criteria/leukocytosis Recent positive blood cultures Chronic diastolic congestive heart failure COPD on chronic home O2/steroids Atrial fibrillation on chronic anticoagulation therapy Hypertension Tobacco use disorder Plan: Small bowel obstruction, incarcerated left inguinal hernia S/P Exploratory laparotomy, small bowel resection with anastomosis and open repair of strangulated left inguinal hernia 11/16 SIRS criteria/leukocytosis NGT removed 11/18 General surgery plans on advancing to clears 11/19 Recent positive blood cultures Blood cultures from 11/12 positive for strep mitis 11/24 Patient was prescribed Levaquin at this time which it is sensitive to Blood cultures repeated 11/15-No growth in 24 hours Continue antibioticsZosyn Lactate WNL Seen by cardiology prior to surgery for clearance Tolerating clear liquids Chronic diastolic congestive heart failure Does not appear overloaded Will give gentle IV fluids Monitor volume status closely COPD on chronic home O2/steroids Resume home meds, as needed nebulizer treatments, supplemental oxygen Will check with surgery to see about starting prednisone-home med Atrial fibrillation on chronic anticoagulation therapy-with RVR Back on eliquis stared on amiodarone 11/18 evening rate improved transitioned to oral amiodarine 11/19 monitor LFTs Hypertension Blood pressure soft Will resume when appropriate Tobacco use disorder Counseled on need for cessation DVT PPX: Eliquis Code status: Full Discharge Plan: Home Plan to discharge in: Greater than 2 days Time Spent Managing Pts Care (In Minutes): 35
[2023-11-21] MEDS: predniSONE 10 MG TAB PO ONE (16:56)
[2023-11-22] MEDS: MAGNES/ALUMIN/SIMET 30ML UCUP PO ONE (01:41)
[2023-11-22] MEDS: PANTOPRAZOLE 40MG TABLET PO SCH (01:42)
[2023-11-22 07:01] LABS: Hematocrit 30.2 % (39.6-49.0); Hemoglobin 9.6 g/dL (13.6-17.9); MCH 26.2 pg (27.0-35.0); MCHC 31.7 g/dL (32.0-36.0); MCV 82.8 fL (80-100); MPV 7.3 fL (7.6-11.3); Platelets 349 thou/uL (152-406); RBC Red Blood Cell Count 3.65 M/uL (4.33-5.43); Red Cell Distribution Width 14.7 % (12.1-15.2)
[2023-11-22 07:15] LABS: Albumin 2.2 g/dL (3.4-5.0); Albumin/Globulin Ratio 0.7 (1.1-1.8); Anion Gap 4.7 mEq/L (5.0-15.0); Bilirubin Total 0.5 mg/dL (0.2-1.0); Potassium 4.7 mEq/L (3.5-5.1); Protein, Total 5.2 g/dL (6.4-8.2)
[2023-11-22] MEDS: predniSONE 10 MG TAB PO SCH (08:09)
--- NOTE | 2023-11-22 10:55 | P.PN ---
Subjective Date of Service: 11/22/23 Chief Complaint: Small bowel obstruction Subjective: Tolerating diet, Improving, Doing well Review of Systems Gastrointestinal: Nausea (no), Vomiting (no), No Distention Physical Examination - Vital Signs Temperature: 97.5 F Blood Pressure: 112/62 Pulse: 91 Respirations: 20 Pulse Ox (%): 94 - Physical Exam General: Alert, In no apparent distress, Oriented x3 HEENT: PERRLA Neck: Supple Respiratory: Clear to auscultation bilaterally - Studies Microbiology Data (last 24 hrs): 11/16/23 13:52 Blood - Blood Aerobic Blood Culture - Final No growth in 5 days. 11/16/23 13:52 Blood - Blood Anaerobic Blood Culture - Final No growth in 5 days. 11/16/23 13:45 Blood - Blood Aerobic Blood Culture - Final No growth in 5 days. 11/16/23 13:45 Blood - Blood Anaerobic Blood Culture - Final No growth in 5 days.
--- NOTE | 2023-11-22 11:54 | P.PN ---
Date of Service: 11/22/23 Subjective: Abd pain improving tolerating Full liquids up in recliner this morning ROS: 10 point ROS as noted above, otherwise negative Physical exam GEN: Alert, oriented, NAD HEENT: Normal conjunctiva, sclera anicteric CV: Afib rate 100s, no edema Pulm: Nonlabored respirations on room air ABD: Soft, mild tenderness, abd binder in place, SILVESTRE drain in place MSK: No joint tenderness Integumentary: No rashes Neuro: Normal speech, normal affect Vitals reviewed Assessment: Small bowel obstruction, incarcerated left inguinal hernia S/P Exploratory laparotomy, small bowel resection with anastomosis and open repair of strangulated left inguinal hernia 11/16 SIRS criteria/leukocytosis Recent positive blood cultures Chronic diastolic congestive heart failure COPD on chronic home O2/steroids Atrial fibrillation on chronic anticoagulation therapy Hypertension Tobacco use disorder Plan: Small bowel obstruction, incarcerated left inguinal hernia S/P Exploratory laparotomy, small bowel resection with anastomosis and open repair of strangulated left inguinal hernia 11/16 SIRS criteria/leukocytosis NGT removed 11/18 Advanced to full liquids 11/20 Recent positive blood cultures Blood cultures from 11/12 positive for strep mitis 11/24 Patient was prescribed Levaquin at this time which it is sensitive to Blood cultures repeated 11/15-No growth Continue antibioticsZosyn Lactate WNL Seen by cardiology prior to surgery for clearance Tolerating Full liquids Chronic diastolic congestive heart failure Does not appear overloaded Monitor volume status closely COPD on chronic home O2/steroids Resume home meds, as needed nebulizer treatments, supplemental oxygen started back on chronic PO prednisone-cleared by general surgery Atrial fibrillation on chronic anticoagulation therapy-with RVR Back on eliquis stared on amiodarone 11/18 evening rate improved transitioned to oral amiodarine 11/19 monitor LFTs Hypertension Blood pressure soft Will resume when appropriate Tobacco use disorder Counseled on need for cessation DVT PPX: Eliquis Code status: Full Discharge Plan: Home Plan to discharge in: 2-3 days Time Spent Managing Pts Care (In Minutes): 35
[2023-11-23 06:57] LABS: Hemoglobin 10.4 g/dL (13.6-17.9); MCH 26.3 pg (27.0-35.0); MCHC 31.5 g/dL (32.0-36.0); MCV 83.3 fL (80-100); MPV 7.9 fL (7.6-11.3); Platelets 338 thou/uL (152-406); RBC Red Blood Cell Count 3.96 M/uL (4.33-5.43); Red Cell Distribution Width 14.8 % (12.1-15.2)
[2023-11-23 07:30] LABS: Albumin 2.2 g/dL (3.4-5.0); Albumin/Globulin Ratio 0.7 (1.1-1.8); Anion Gap 6.3 mEq/L (5.0-15.0); Bilirubin Total 0.4 mg/dL (0.2-1.0); Globulin 3.3 g/dL (2.3-3.5); Potassium 4.3 mEq/L (3.5-5.1); Protein, Total 5.5 g/dL (6.4-8.2)
[2023-11-23] MEDS: ACETAMINOPHEN 500 MG TAB PO ONE (11:00)
--- NOTE | 2023-11-23 18:45 | P.PN ---
Subjective Date of Service: 11/23/23 Chief Complaint: Small bowel obstruction Patient tolerated solid diet today. He denies any abdominal pain. He denies any shortness of breath. He is maintained on his baseline home oxygen. Physical Examination - Vital Signs Temperature: 97.7 F Blood Pressure: 124/58 Pulse: 80 Respirations: 17 Pulse Ox (%): 95 Assessment And Plan - Plan Physical exam GEN: Alert, oriented, NAD HEENT: Anicteric sclera. CV: Irregularly irregular, no pedal edema Pulm: Clear to auscultation bilaterally, adequate breath sounds bilaterally. ABD: Soft, abd binder in place, SILVESTRE drain in place Integumentary: No rashes Neuro: Normal speech, normal affect, no focal motor deficit. Vitals reviewed Assessment: Small bowel obstruction, incarcerated left inguinal hernia SIRS criteria/leukocytosis Recent positive blood cultures Chronic diastolic congestive heart failure COPD on chronic home O2/steroids Atrial fibrillation on chronic anticoagulation therapy Hypertension Tobacco use disorder Plan: Small bowel obstruction, incarcerated left inguinal hernia S/P Exploratory laparotomy, small bowel resection with anastomosis and open repair of strangulated left inguinal hernia 11/16 SIRS criteria/leukocytosis NGT removed 11/18 Patient advance to solid diet which she has tolerated. Recent positive blood cultures Blood cultures from 11/12 positive for strep mitis 11/24 during previous hospitalization Patient was prescribed Levaquin at that time which it is sensitive to Blood cultures repeated 11/15-No growth Patient treated for IV Zosyn for 7 days. Lactate WNL Patient deemed stable for discharge per surgery Dr. Forrest. Dr. Forrest will follow-up with patient in office within 1 week. Chronic diastolic congestive heart failure Patient appears compensated for CHF. He is stable baseline home oxygen. COPD on chronic home O2/steroids Stable Continue home meds, as needed nebulizer treatments, supplemental oxygen Continue Daliresp Home prednisone maintenance resumed. Atrial fibrillation on chronic anticoagulation therapy-with RVR Patient seen by cardiology Eliquis resumed. Patient started on amiodarone by cardiology. rate improved monitor LFTs Hypertension Patient is currently normotensive He is currently not on any antihypertensives. Tobacco use disorder Smoking cessation advised DVT PPX: Eliquis Code status: Full Discharge Plan: Home Plan to discharge in: A.m.
[2023-11-24] MEDS ORDERED: METOPROLOL TARTRATE 5 MG/5 ML INJ IV PRN (00:02)
[2023-11-24 05:30] LABS: Hematocrit 29.5 % (39.6-49.0); Hemoglobin 9.3 g/dL (13.6-17.9); MCH 26.2 pg (27.0-35.0); MCHC 31.6 g/dL (32.0-36.0); MCV 82.8 fL (80-100); MPV 7.5 fL (7.6-11.3); Platelets 379 thou/uL (152-406); RBC Red Blood Cell Count 3.57 M/uL (4.33-5.43)
[2023-11-24 05:46] LABS: Albumin 2.2 g/dL (3.4-5.0); Albumin/Globulin Ratio 0.7 (1.1-1.8); Anion Gap 5.9 mEq/L (5.0-15.0); Bilirubin Total 0.3 mg/dL (0.2-1.0); Potassium 3.9 mEq/L (3.5-5.1); Protein, Total 5.2 g/dL (6.4-8.2)
--- NOTE | 2023-11-24 08:02 | P.DS ---
Admission Date: 11/16/23 Discharge Date: 11/24/23 Disposition: [place] HOME/HOME HEALTH CARE Discharge Condition: FAIR Reason for Admission: Small bowel obstruction Brief History of Present Illness: Diagnosis Small bowel obstruction, incarcerated left inguinal hernia SIRS criteria/leukocytosis Recent positive blood cultures Chronic diastolic congestive heart failure COPD on chronic home O2/steroids Atrial fibrillation on chronic anticoagulation therapy Hypertension Tobacco use disorder HPI 11/16/23 Randolph Mckeon is a 68-year-old male with history of COPD on chronic steroids/home O2, hypertension, hyperlipidemia, chronic diastolic congestive heart failure, atrial fibrillation on chronic anticoagulation presents to the emergency department with chief complaint of abdominal pain. He reports his pain began yesterday and has become worse associated with distention, vomiting. Last episode of vomiting was this morning 11/15. Last bowel movement was 3 to 4 days ago, he has been passing gas since this morning. He was evaluated in the emergency department his labs are significant for leukocytosis with a white blood cell count of 21.8 hemoglobin 12.3 hematocrit 37.9 sodium 130 chloride [address] abdomen pelvis was performed which demonstrated small bowel obstruction secondary to left inguinal hernia, hernia was reduced by ED physician and general surgery has been consulted. Surgery request cardiology clearance. Patient to be admitted to the hospital service for further evaluation and management of small bowel obstruction secondary to left inguinal hernia Of note blood cultures from previous hospitalization from 11/11 to 11/12 were reviewed, 4/4 positive for strep mitis, these were sensitive to levofloxacin which patient was prescribed at that time. Patient denies fever/chills at home. Repeat blood cultures ordered today and patient will get antibioticsZosyn. Hospital Course: Randolph Mckeon is a pleasant 68 year old male with a past medical history significant for COPD on chronic steroids/home O2, hypertension, hyperlipidemia, chronic diastolic congestive heart failure, atrial fibrillation on chronic anticoagulationwho was admitted to the [facility] on 11/16/23 for small bowel obstruction. Randolph Mkceon presented to the ED with chief complaint of abdominal pain associated with vomiting and distention. CT abd /pelvis reports small bowel is markedly dilated. Dr. Forrest was consulted, surgery on 11/18/23. He has tolerated the surgical procedure well, successfully worked with physical therapy, tolerated PO diet, urinating without difficulty, and hemodynamically stable for discharge. On 11/24/2023, Randolph was seen on morning rounds and deemed medically stable for discharge. Randolph was discharged with instructions to schedule follow-up appointments with PCP, cardiology, and Dr. Forrest. Randolph was provided prescriptions for amiodarone. The patient was given the opportunity to ask questions and reported no further questions. Furthermore, all questions were answered to the best of my ability. A copy of this discharge summary will be sent to the above providers to facilitate continuity of care. Today, I personally spent 50 minutes with Randolph, of which greater than 50% of the time was spent in patient education, counseling, and coordination of care as described above. Physical exam GEN: AAOx3, no acute distress HEENT: Normal conjunctiva, sclera anicteric CV: NSR with PVC, S1 S2 present, no murmur present Pulm: Symmetrical chest wall movement, bilaterally clear breath sounds on auscu ltation ABD: Soft and benign to palpation, distended (obese), abd binder in place, SILVESTRE drain in place MSK: No joint tenderness Integumentary: No rashes Neuro: Normal speech, normal affect Vital Signs/Physical Exam: Temp Pulse Resp BP Pulse Ox 97.4 F 76 16 119/57 L 99 11/24/23 04:00 11/24/23 04:00 11/24/23 05:04 11/24/23 04:00 11/24/23 05:04 Laboratory Data at Discharge: WBC 12.00 thou/uL (4.3-10.9) H 11/24/23 05:03 Hgb 9.3 g/dL (13.6-17.9) L D 11/24/23 05:03 Hct 29.5 % (39.6-49.0) L 11/24/23 05:03 Plt Count 379 thou/uL (152-406) 11/24/23 05:03 PT 18.4 SECONDS (9.5-12.5) H 11/16/23 13:45 INR 1.70 11/16/23 13:45 APTT 33.0 SECONDS (24.3-36.9) 11/16/23 13:45 Sodium 139 mEq/L (136-145) 11/24/23 05:03 Potassium 3.9 mEq/L (3.5-5.1) 11/24/23 05:03 BUN 7 mg/dL (7-18) 11/24/23 05:03 Creatinine 0.69 mg/dL (0.70-1.30) L 11/24/23 05:03 Glucose 110 mg/dL (74-106) H 11/24/23 05:03 Magnesium 2.4 mg/dL (1.6-2.4) 11/16/23 11:17 Total Bilirubin 0.3 mg/dL (0.2-1.0) 11/24/23 05:03 AST 5 U/L (15-37) L 11/24/23 05:03 ALT 12 U/L (16-61) L 11/24/23 05:03 Alkaline Phosphatase 41 U/L (45-117) L 11/24/23 05:03 Lipase 22 U/L (13-75) 11/16/23 11:17 Home Medications: Amlodipine [Norvasc*] 10 mg PO DAILY 02/22/23 Apixaban [Eliquis] 5 mg PO BID 02/22/23 Spironolactone 25 mg PO DAILY 02/22/23 Roflumilast [Daliresp*] 500 mcg PO DAILY 30 Days #30 tab 05/20/23 Tamsulosin [Flomax*] 0.4 mg PO DAILY 06/29/23 Ipratropium/Albuterol Sulfate [Iprat-Albut 0.5-3(2.5) mg/3 ml] 3 ml IH Q6H PRN #120 amp 08/20/23 Albuterol Inhaler [Ventolin Inhaler*] 2 puff IH Q6H PRN #2 inhaler 08/27/23 Nebulizer 1 each ONCE #1 ea 08/27/23 acetaZOLAMIDE [Diamox*] 250 mg PO BID #60 tab 08/27/23 Albuterol Neb [Proventil 0.083% Neb Soln] 2.5 mg NEB Q6HP PRN amp 11/13/23 predniSONE [Deltasone*] 10 mg PO DAILY #30 tab 11/13/23 Montelukast [Singulair*] 10 mg PO DAILY 11/19/23 Amiodarone HCl [Cordarone*] 200 mg PO BID #60 tab 11/23/23 New Medications: Amiodarone HCl [Cordarone*] 200 mg PO BID #60 tab Physician Discharge Instructions: Home Health for resumption: [facility] ([facility]) P:[phone] F:[phone] Spoke to Elisabeth Marroquin [facility], the agency has approved the patient for daily visits for approximately one week only begining on 11/25/23 and ending on 11/30/23 (patient will follow up with Dr. Forrest on 12/01/23); per home health visits will be 2-3 times weekly after 11/30/[address] Forrest: 12/01/23 at 2pm (spoke to [id number], [place] [address] Diet: AHA Activity: Fall precautions Followup: Laron Forrest MD [ACTIVE - CAN ADMIT] - 1 Week (Follow up with Dr. Forrest in the office within 1 week for ilda and SILVESTRE drain removal.) NONE,NONE [Primary Care Provider] -
[2023-11-24] MEDS: POTASSIUM CL SA 10 MEQ TAB PO ONE (08:32)
[2023-11-24 09:49] VITALS: O2SAT 99
[2023-11-24 10:27] VITALS: BP 127/57; TEMP 97.2
== END 2023-11-24 10:39 | disposition home health service (06) | DRG 330 ==
LOC: ER 10:39 → ERHOLD 14:15 → 4TH 14:48 → 3RD-ICU 11-17 15:18 → 4TH 11-19 12:45
PROVIDERS: ADMIT Hospitalist; ATTEND Internal Medicine
PROC: 0T9B70Z Drainage of Bladder with Drainage Device, Via Natural or Artificial Opening (ICD-10-PCS; 2023-11-17)
PROC: 0DB80ZZ Excision of Small Intestine, Open Approach (ICD-10-PCS; principal; 2023-11-17 16:30)
PROC: 0YQ60ZZ Repair Left Inguinal Region, Open Approach (ICD-10-PCS; 2023-11-17 16:30)
DX: K40.30 Unilateral inguinal hernia, with obstruction, without gangrene, not specified as recurrent (principal); I50.32 Chronic diastolic (congestive) heart failure; R65.10 Systemic inflammatory response syndrome (SIRS) of non-infectious origin without acute organ dysfunction; I11.0 Hypertensive heart disease with heart failure; E78.5 Hyperlipidemia, unspecified; I48.91 Unspecified atrial fibrillation; D72.829 Elevated white blood cell count, unspecified; J44.9 Chronic obstructive pulmonary disease, unspecified; F17.210 Nicotine dependence, cigarettes, uncomplicated; Z71.6 Tobacco abuse counseling; Z63.5 Disruption of family by separation and divorce; Z79.01 Long term (current) use of anticoagulants; Z99.81 Dependence on supplemental oxygen; Z79.52 Long term (current) use of systemic steroids; Z79.899 Other long term (current) drug therapy; Z28.310 Unvaccinated for COVID-19
CPT/HCPCS: 36415; 71045; 74018; 74177; 80048; 80053; 81001; 82947; 83605; 83690; 83735; 83880; 84484; 85025; 85027; 85610; 85730; 87040; 88307; 93005; 94010; 94640; 96365; 96375; 97110; 97116; 97161; 97530; 99285; A4216; J0171; J0282; J1100; J1170; J1650; J1720; J2001; J2250; J2270; J2405; J2543; J2704; J3010; J3480; J7030; J7040; J7060; J7120; J7512; J7613; J7614; J7644; Q9967

== ENCOUNTER 2024-02-06 16:40 | Inpatient (IN) | payer OTHER, BC ==
[2024-02-06 17:15] LABS: Absolute Basophils 0.1 K/uL (0-0.5); Absolute Eosinophils 0.1 K/uL (0-0.5); Absolute Lymphocytes (CBC) 1.5 K/uL (0.7-4.9); Absolute Monocytes 0.8 K/uL (0.1-1.3); Absolute Neutrophil 5.6 K/uL (1.8-8.0); Basophils % 0.8 % (0-1.3); Eosinophils % 1.4 % (0-4.4); Hematocrit 32.9 % (39.6-49.0); Hemoglobin 10.7 g/dL (13.6-17.9); Lymphocytes % 18.3 % (15.3-44.8); MCH 26.4 pg (27.0-35.0); MCHC 32.5 g/dL (32.0-36.0); MCV 81.1 fL (80-100); MPV 7.2 fL (7.6-11.3); Monocytes % 9.4 % (3.3-12.3); Neutrophils % 70.1 % (41.7-73.7); Nucleated Red Blood Cells % 0.1 % (0-0); Platelets 259 thou/uL (152-406); RBC Red Blood Cell Count 4.05 M/uL (4.33-5.43); Red Cell Distribution Width 15.9 % (12.1-15.2)
[2024-02-06] MEDS ORDERED: ALBUTEROL 2.5 MG/3 ML NEB SOL ONE (17:17)
[2024-02-06] MEDS ORDERED: MAGNESIUM SULFATE 1 gm IVPB 1 GM/100 ML BAG IV ONE (17:17)
[2024-02-06] MEDS ORDERED: IPRATROPIUM BROM 0.5MG/2.5ML ONE (17:17)
[2024-02-06 17:22] LABS: PT Prothrombin Time 12.1 SECONDS (9.5-12.5); Protime INR 1.1
[2024-02-06 17:34] LABS: Troponin High Sensitivity 7.4 pg/mL (<58.9)
--- NOTE | 2024-02-06 17:44 | RAD REPORT ---
EXAM DESCRIPTION: RAD - Chest Single View - 02/06/2024 5:39 pm CLINICAL HISTORY: DYSPNEA Chest pain. COMPARISON: Chest Single View dated 11/19/2023; Abdomen 1 View (KUB) dated 11/17/2023; Abdomen 1 View (KUB) dated 11/17/2023; Chest Single View dated 11/16/2023 FINDINGS: Portable technique limits examination quality. Mild interstitial pulmonary edema. The heart is normal in size. No displaced fractures. IMPRESSION: Mild CHF is possible.
--- NOTE | 2024-02-06 18:55 | ER ---
Nurse's Notes [facility] Name: Randolph Mckeon Age: 68 yrs Sex: Male : 1955 Arrival Date: 02/06/2024 Time: 16:40 Bed 8 Private MD: Diagnosis: COPD/ Chronic obstructive pulmonary disease with (acute) exacerbation Presentation: 02/05 16:55 Chief complaint: EMS states: called out for shortness of breath. gave breathing tx, and as6 125 solu-Medrol. Coronavirus screen: At this time, the client does not indicate any symptoms associated with coronavirus-19. Ebola Screen: No symptoms or risks identified at this time. Initial Sepsis Screen: Does the patient meet any 2 criteria? No. Patient's initial sepsis screen is negative. Does the patient have a suspected source of infection? No. Patient's initial sepsis screen is negative. Risk Assessment: Do you want to hurt yourself or someone else? Patient reports no desire to harm self or others. Onset of symptoms was February 03, 2024. 16:55 Method Of Arrival: EMS as6 16:55 Acuity: YANNICK 2 as6 16:57 Care prior to arrival: Medication(s) given: Albuterol Neb x 1, Atrovent Neb x 1, IV as6 initiated. 20 GA, in the left hand, Med neb given. Oxygen administered. via a nebulizer mask. Historical: - Allergies: 16:56 No Known Allergies; as6 - PMHx: 16:56 Atrial fibrillation; CHF; COPD; Hypertension; Pneumonia; Chronic obstructive lung as6 disease; - PSHx: 16:56 cyst removal on lower left limb; hernia (cyst removal on lower left limb); as6 - Immunization history:: Adult Immunizations up to date. - Infectious Disease History:: Denies. - Social history:: Smoking status: Patient reports the use of cigarette tobacco products, smokes one-half pack cigarettes per day. Screenin:09 [facility] ED Fall Risk Assessment (Adult) History of falling in the last 3 months, ko1 including since admission No falls in past 3 months (0 pts) Confusion or Disorientation No (0 pts) Intoxicated or Sedated No (0 pts) Impaired Gait No (0 pts) Mobility Assist Device Used No (0 pt) Altered Elimination No (0 pt) Score/Fall Risk Level 0 - 2 = Low Risk Oriented to surroundings, Maintained a safe environment, Educated pt \T\ family on fall prevention, incl call for assistance when getting out of bed, Assessed \T\ reinforced patient's understanding of fall precautions, Provided non-skid footwear, Hourly rounding (assess needs \T\ fall precautionary measures) done, Used ambulatory aids as needed (educated on \T\ assisted with), Used gait belt as appropriate. Abuse screen: Denies threats or abuse. Denies injuries from another. Nutritional screening: No deficits noted. Tuberculosis screening: No symptoms or risk factors identified. Assessment: 17:00 General: Appears in no apparent distress. Behavior is calm, cooperative, appropriate ko1 for age. Pain: Denies pain. Neuro: No deficits noted. Cardiovascular: No deficits noted. Respiratory: Reports shortness of breath at rest cough that is productive, labored breathing. GI: No deficits noted. : No deficits noted. EENT: No deficits noted. Derm: No deficits noted. Musculoskeletal: No deficits noted. Vital Signs: 16:55 BP 127 / 62; Pulse 74; Resp 18; Temp 98.1; Pulse Ox 100% ; Weight 89.36 kg; Height 5 as6 ft. 11 in. ; Pain 0/10; 17:00 BP 113 / 52; Pulse 75; Resp 16; Pulse Ox 98% on 2 lpm NC; ko1 18:24 BP 109 / 80; Pulse 84; Resp 18; Pulse Ox 98% on 2 lpm NC; ko1 19:32 BP 103 / 49; Pulse 87; Resp 20; Pulse Ox 96% on NC; pc2 16:55 Body Mass Index 27.48 (89.36 kg, 180.34 cm) as6 16:55 Pain Scale: Adult as6 ED Course: 16:43 Patient arrived in ED. jr12 16:55 Romie Briceno MD is Attending Physician. ec2 16:55 Gerardo Chiang RN is Primary Nurse. as6 16:56 Triage completed. as6 16:57 Arm band placed on. as6 17:00 Yolande Hansen FNP-C is PHCP. kb 17:00 Romie Briceno MD is Attending Physician. kb 17:00 No provider procedures requiring assistance completed. ko1 17:08 Basic Metabolic Panel Sent. ko1 17:08 CBC with Diff Sent. ko1 17:08 NT PRO-BNP Sent. ko1 17:08 PT-INR Sent. ko1 17:08 Troponin HS Sent. ko1 17:09 Patient has correct armband on for positive identification. Placed in gown. Bed in low ko1 position. Call light in reach. Side rails up X2. Provided Education on: labs/meds/call light. Client placed on continuous cardiac and pulse oximetry monitoring. NIBP monitoring applied. quality assurance monitor body on. Door closed. Noise minimized. Lights dimmed. Warm blanket given. Pillow given. 17:09 Maintain EMS IV. Dressing intact. Good blood return noted. Site clean \T\ dry. Gauge \T\ ko 1 site: 20g left FA. Oxygen administration via nasal cannula \T\ 2L/min Response to oxygen therapy: symptoms improved. 17:40 XRAY Chest (1 view) In Process Unspecified. EDMS 18:55 John Morales MD is Hospitalizing Provider. kb 21:08 Patient admitted, IV remains in place. tm6 Administered Medications: 17:21 Drug: Magnesium Sulfate IVPB 1 grams IVPB once over 1 hrs Route: IVPB; Infused Over: 1 ko1 hrs; Site: left forearm; 18:24 Follow up: Response: No adverse reaction; IV Status: Completed infusion; IV Intake: ko1 100ml 17:22 Drug: Albuterol Inhalation 2.5 mg Inhalation once Route: Inhalation; ko1 18:23 Follow up: Response: No adverse reaction ko1 17:22 Drug: Ipratropium Inhalation Aerosol 0.5 mg Inhalation once Route: Inhalation; ko1 18:23 Follow up: Response: No adverse reaction ko1 Medication: 17:00 VIS not applicable for this client. ko1 Intake: 18:24 IV: 100ml; Total: 100ml. ko1 Outcome: 18:55 Decision to Hospitalize by Provider. kb 21:07 Admitted to Med/surg accompanied by luiza tm6 21:07 Condition: stable 21:07 Instructed on the need for admit, 21:08 Patient left the ED. tm6 Signatures: Dispatcher [employer] EDUT Yolande Hansen, Gerardo Salazar RN RN as6 Uzma Tidwell RN RN ko1 Romie Briceno MD MD ec2 Nuvia Suárez [facility] Ellen Dorantes, RN RN tm6 Maryann parsons, RN RN pc2
--- NOTE | 2024-02-06 18:55 | EDPHYS ---
Physician Documentation [facility] Name: Randolph Mckeon Age: 68 yrs Sex: Male : 1955 Arrival Date: 02/06/2024 Time: 16:40 Bed 8 Private MD: ED Physician Romie Briceno HPI: 02/05 19:03 This 68 yrs old Male presents to ER via EMS with complaints of Breathing Difficulty. kb 19:03 Pt is a 68 year old male who presents for shortness of breath for 3 days that has been kb getting worse. States normal oxygen sat is 93-94%, but he has been around 88% today. Denies chest pain. Historical: - Allergies: 16:56 No Known Allergies; as6 - PMHx: 16:56 Atrial fibrillation; CHF; COPD; Hypertension; Pneumonia; Chronic obstructive lung as6 disease; - PSHx: 16:56 cyst removal on lower left limb; hernia (cyst removal on lower left limb); as6 - Immunization history:: Adult Immunizations up to date. - Infectious Disease History:: Denies. - Social history:: Smoking status: Patient reports the use of cigarette tobacco products, smokes one-half pack cigarettes per day. ROS: 18:00 Constitutional: As per HPI kb Exam: 18:00 Constitutional: This is a well developed, well nourished patient who is awake, alert, kb and in no acute distress. Head/Face: Normocephalic, atraumatic. ENT: Moist Mucous membranes Cardiovascular: Regular rate Abdomen/GI: Soft, non-tender. No distention Skin: Warm, dry with normal turgor. Normal color. MS/ Extremity: Pulses equal, no cyanosis. Neurovascular intact. Full, normal range of motion. Neuro: Awake and alert, GCS 15, oriented to person, place, time, and situation. Moves all extremities. Normal gait. 18:00 Respiratory: the patient does not display signs of respiratory distress, Respirations: normal, Breath sounds: wheezing: expiratory that is mild, is scattered, 18:00 ECG was reviewed by the Attending Physician. kb Vital Signs: 16:55 BP 127 / 62; Pulse 74; Resp 18; Temp 98.1; Pulse Ox 100% ; Weight 89.36 kg; Height 5 as6 ft. 11 in. ; Pain 0/10; 17:00 BP 113 / 52; Pulse 75; Resp 16; Pulse Ox 98% on 2 lpm NC; ko1 18:24 BP 109 / 80; Pulse 84; Resp 18; Pulse Ox 98% on 2 lpm NC; ko1 19:32 BP 103 / 49; Pulse 87; Resp 20; Pulse Ox 96% on NC; pc2 16:55 Body Mass Index 27.48 (89.36 kg, 180.34 cm) as6 16:55 Pain Scale: Adult as6 MDM: 16:55 Patient medically screened. ec2 19:02 Differential diagnosis: CHF exacerbation, Chronic Obstructive Pulmonary Disease kb pneumonia, pulmonary edema. Data reviewed: vital signs, nurses notes. Consideration of Admission/Observation Patient was admitted/placed on observation. Escalation of care including admission/observation considered. Management of patient was discussed with the following: Hospitalist: Dr Morales accepts pt for admission. Counseling: I had a detailed discussion with the patient and/or guardian regarding the historical points, exam findings, and any diagnostic results supporting the discharge/admit diagnosis, lab results, radiology results, the need for further work-up and treatment in the hospital. 02/05 16:55 Order name: Basic Metabolic Panel; Complete Time: 17:56 ec2 02/05 16:55 Order name: CBC with Diff; Complete Time: 17:56 ec2 02/05 16:55 Order name: NT PRO-BNP; Complete Time: 17:56 ec2 02/05 16:55 Order name: PT-INR; Complete Time: 17:56 ec2 02/05 16:55 Order name: Troponin HS; Complete Time: 17:56 ec2 02/05 19:47 Order name: Urinalysis w/ reflexes EDMS 02/05 16:55 Order name: XRAY Chest (1 view); Complete Time: 17:56 ec2 02/05 16:55 Order name: EKG; Complete Time: 16:56 ec2 02/05 16:55 Order name: Cardiac monitoring; Complete Time: 16:58 ec2 02/05 16:55 Order name: EKG - Nurse/Tech; Complete Time: 17:40 ec2 02/05 16:55 Order name: IV Saline Lock; Complete Time: 16:58 ec2 02/05 16:55 Order name: Labs collected and sent; Complete Time: 17:08 ec2 02/05 16:55 Order name: O2 Per Protocol; Complete Time: 16:58 ec2 02/05 16:55 Order name: O2 Sat Monitoring; Complete Time: 16:58 ec2 EC:00 Rate is 76 beats/min. Rhythm is regular. QRS Victoria is Normal. MD interval is prolonged kb at 208 msec. QRS interval is normal at 98 msec. QT interval is normal at 452 msec. Administered Medications: 17:21 Drug: Magnesium Sulfate IVPB 1 grams IVPB once over 1 hrs Route: IVPB; Infused Over: 1 ko1 hrs; Site: left forearm; 18:24 Follow up: Response: No adverse reaction; IV Status: Completed infusion; IV Intake: ko1 100ml 17:22 Drug: Albuterol Inhalation 2.5 mg Inhalation once Route: Inhalation; ko1 18:23 Follow up: Response: No adverse reaction ko1 17:22 Drug: Ipratropium Inhalation Aerosol 0.5 mg Inhalation once Route: Inhalation; ko1 18:23 Follow up: Response: No adverse reaction ko1 Disposition Summary: 02/06/24 18:55 Hospitalization Ordered Notes: Hospitalization Status: Observation kb Provider: John Morales Location: Telemetry/MedSurg (observation) kb Condition: Stable kb Problem: an acute exacerbation kb Symptoms: are unchanged kb Bed/Room Type: [facility] Room Assignment: 408(02/06/24 19:51) sp Diagnosis - COPD/ Chronic obstructive pulmonary disease with (acute) exacerbation kb Forms: - Medication Reconciliation Form kb - SBAR form kb - Leadership Thank You Letter kb Addendum: 02/08/2024 14:14 I was immediately available for consultation during this patient's visit. I did not e c2 personally see the patient or discuss the patient with the SOWMYA. . Signatures: Dispatcher [employer] Yolande Samuel FNP-C FNP-Sandy Bui Ashby, RN RN as6 Uzma Tidwell RN RN ko1 Romie Briceno MD MD ec2 Corrections: (The following items were deleted from the chart) 02/05 19:51 18:55 kb sp
[2024-02-06] MEDS ORDERED: ACETAMINOPHEN 325 MG TABLET PO PRN (19:42)
[2024-02-06] MEDS ORDERED: ONDANSETRON 4 MG/2 ML VIAL IV PRN (19:42)
--- NOTE | 2024-02-06 19:42 | P.HP ---
Certification for Inpatient Patient admitted to: Inpatient With expected LOS: >2 Midnights Practitioner: I am a practitioner with admitting privileges, knowledge of patient current condition, hospital course, and medical plan of care. Services: Services provided to patient in accordance with Admission requirements found in Title 42 Section 412.3 of the Code of Federal Regulations Patient History Date of Service: 02/06/24 Reason for admission: COPD exacerbation History of Present Illness: 68-year-old male with history of chronic COPD on chronic steroids/home oxygen, hypertension, hyperlipidemia, chronic diastolic congestive heart failure, chronic atrial fibrillation presents to the emergency department with chief complaint of shortness of breath. He followed by Dr. Holt as outpatient and has been doing good but started having shortness of breath since yesterday and has been progressively worsening and was brought to ER. The episode was similar to his previous COPD exacerbation. Patient reports he is still smoking approximately 1 pack/day at home, started feeling very short of breath this afternoon. Denies any fever or chills. No nausea vomiting or diarrhea. Denies any chest pain. Also has history of CHF for which he is taking Lasix . Has cough with mucoid expectoration. Patient was assessed in the ER and was admitted for COPD exacerbation Allergies No Known Allergies Allergy (Verified 11/12/23 14:18) Home medications list reviewed: Yes Home Medications: Amlodipine [Norvasc*] 10 mg PO DAILY 02/22/23 Apixaban [Eliquis] 5 mg PO BID 02/22/23 Spironolactone 25 mg PO DAILY 02/22/23 Roflumilast [Daliresp*] 500 mcg PO DAILY 30 Days #30 tab 05/20/23 Tamsulosin [Flomax*] 0.4 mg PO DAILY 06/29/23 Ipratropium/Albuterol Sulfate [Iprat-Albut 0.5-3(2.5) mg/3 ml] 3 ml IH Q6H PRN #120 amp 08/20/23 Albuterol Inhaler [Ventolin Inhaler*] 2 puff IH Q6H PRN #2 inhaler 08/27/23 Nebulizer 1 each MC ONCE #1 ea 08/27/23 acetaZOLAMIDE [Diamox*] 250 mg PO BID #60 tab 08/27/23 Albuterol Neb [Proventil 0.083% Neb Soln] 2.5 mg NEB Q6HP PRN amp 11/13/23 predniSONE [Deltasone*] 10 mg PO DAILY #30 tab 11/13/23 Montelukast [Singulair*] 10 mg PO DAILY 11/19/23 Amiodarone HCl [Cordarone*] 200 mg PO BID #60 tab 11/23/23 - Past Medical/Surgical History Diabetic: No Past Medical History: Reviewed- Non-Contributory -: COPD on chronic home O2/steroids -: Hypertension -: Alcohol abuse -: Hyponatremia -: Diastolic CHF -: Pneumonia -: A-fibon chronic anticoagulation Past Surgical History: Reviewed- Non-Contributory -: Hernia repair -: left leg wound -: Left foot cancer removal Psychosocial/ Personal History: Patient is . He lives at home and has home health. - Family History Family History: Reviewed- Non-Contributory - Family History Father -: Heart disease Brother -: Lung disease - Social History Smoking Status: Current some day smoker Alcohol use: No CD- Drugs: No Caffeine use: No Review of Systems 10-point ROS is otherwise unremarkable Physical Examination - Vital Signs Temperature: 98.2 F Blood Pressure: 148/72 Pulse: 76 Respirations: 20 Pulse Ox (%): 94 - Physical Exam General: Alert, Oriented x3, Mild distress, Obese HEENT: Atraumatic, Normocephalic Neck: Supple, 2+ carotid pulse no bruit Respiratory: Diminished, Crackles/rales, Expiratory wheezes Cardiovascular: Regular rate/rhythm, Normal S1 S2, Edema Capillary refill: <2 Seconds Gastrointestinal: Soft and benign, W/out hepatosplenomegaly Musculoskeletal: No clubbing, No swelling Integumentary: No rashes, No breakdown Neurological: Normal speech, Normal strength at 5/5 x4 extr, Cranial nerves 3-12 intact, Normal reflexes 2+ Lymphatics: No axilla or inguinal lymphadenopathy - Studies Laboratory Data (last 24 hrs) 02/06/24 02/06/24 02/06/24 17:05 17:05 17:05 WBC 8.00 Hgb 10.7 L Hct 32.9 L Plt Count 259 PT 12.1 INR 1.10 Sodium 134 L Potassium 4.0 BUN 12 Creatinine 0.78 Glucose 115 H Assessment and Plan - Problems (Diagnosis) (1) Acute exacerbation of COPD with asthma Current Visit: No Status: Acute Plan: Acute COPD exacerbation Acute on chronic diastolic CHF Acute on chronic hypoxic/hypercapnic respiratory failure Atrial fibrillation on chronic anticoagulation Hypertension BPH Tobacco use disorder Plan COPD exacerbation Monitor closely on telemetry Started on bronchodilators Oxygen supplementation Steroids added Chest x-ray findings noted Pulmonology consult if not better in the a.m. Acute on chronic CHF diastolic Monitor closely on telemetry Started on aggressive diuresis X-ray findings consistent with CHF Oxygen supplementation Will try to wean down oxygen requirement Continue home medications Titrate as needed Will obtain an echocardiogram Hypertension Antihypertensives titrated Continue home medications and titrate as needed Atrial fibrillation on chronic anticoagulation Continue Coreg, Eliquis Add on beta-sloan if needed Tobacco use disorder NicoDerm patch ordered, discussed at length with patient need for cessation DVT PPX: Continue Eliquis Discharge Plan: Home Plan to discharge in: 48 Hours - Advance Directives Does patient have a Living Will: No Does patient have a Durable POA for Healthcare: No - Code Status/Comfort Care Code Status: Full Code Time Spent Managing Pts Care (In Minutes): 48
[2024-02-06] MEDS ORDERED: HYDROCODONE/APAP 10/325 TAB PO PRN (20:50)
[2024-02-06] MEDS: METHYLPREDNISOLONE 40 MG INJ IV SCH (21:25)
[2024-02-06 23:52] VITALS: BMI 27.4
[2024-02-07] MEDS: FUROSEMIDE 20 MG/ 2ML VIAL IV SCH (00:57)
[2024-02-07] MEDS: ALBUTEROL 2.5 MG/3 ML NEB SOL NEB PRN ×2 (07:34→20:09)
[2024-02-07] MEDS: IPRATROPIUM BROM 0.5MG/2.5ML NEB PRN ×2 (07:34→20:09)
[2024-02-07] MEDS: ENOXAPARIN 40 MG/0.4 ML SQ SCH (08:00)
--- NOTE | 2024-02-07 14:53 | EKG ---
Test Date: 2024-02-06 Test Time: 17:32:59 Department Specialist: MEASUREMENT RESULTS: Intervals: Rate: 76 HI: 208 QRSD: 98 QT: 402 QTc: 452 Garrison: P: 56 HI: 208 QRS: 17 T: 51 INTERPRETIVE STATEMENTS: Normal sinus rhythm Incomplete right bundle branch block Borderline ECG Compared to ECG 11/16/2023 10:54:29 Incomplete right bundle-branch block now present Sinus tachycardia no longer present Ventricular premature complex(es) no longer present Atrial abnormality no longer present Early repolarization no longer present Electronically Signed On 02-07-24 14:51:03 CDT by Curtis Sotelo
--- NOTE | 2024-02-07 15:10 | P.PN ---
Subjective Date of Service: 02/07/24 Chief Complaint: COPD exacerbation Patient reports some improvement in his shortness of breath. He denies orthopnea, denies any chest pain. Reports nonproductive cough. Physical Examination - Vital Signs Temperature: 97.5 F Blood Pressure: 127/63 Pulse: 91 Respirations: 20 Pulse Ox (%): 93 - Studies Laboratory Data (last 24 hrs) 02/06/24 02/06/24 02/06/24 17:05 17:05 17:05 WBC 8.00 Hgb 10.7 L Hct 32.9 L Plt Count 259 PT 12.1 INR 1.10 Sodium 134 L Potassium 4.0 BUN 12 Creatinine 0.78 Glucose 115 H Assessment And Plan - Plan Physical Examination General: Not in acute distress. Neck: Supple, no elevated JVD, no thyromegaly. Lungs: Mild bilateral scattered wheezes, adequate breath sounds bilaterally, mild bibasilar crackles. Heart: S1-S2 heard, rapid, no murmur no gallop no rub. Abdomen: Soft, nontender, nondistended, no hepatosplenomegaly. Extremities: No pedal edema. No deformity. Neuro: No cranial nerve deficit, no focal motor deficit. Psychiatry: Awake, normal behavior, normal affect. Skin: Warm and dry, no rashes. Assessment Acute COPD exacerbation Acute on chronic diastolic CHF Acute on chronic hypoxic/hypercapnic respiratory failure Atrial fibrillation on chronic anticoagulation Hypertension BPH Tobacco use disorder Plan COPD exacerbation Acute on chronic respiratory failure with hypoxia and hypercapnia Continue bronchodilators, steroids Oxygen supplementation Resume home dose acetazolamide Acute on chronic CHF diastolic CXR-ray findings consistent with CHF IV Lasix Continue acetazolamide and spironolactone Oxygen supplementation Hypertension Home dose amiodarone resumed Atrial fibrillation on chronic anticoagulation Continue amiodarone and Eliquis Tobacco use disorder NicoDerm patch ordered. DVT PPX: On Eliquis. Disposition: Treat COPD exacerbation and CHF exacerbation for 1 more day. Anticipating discharge to home in a.m. History of recurrent admissions.
[2024-02-07] MEDS ORDERED: HOME MED 1 EA UNK (Ipratropium/Albuterol Sulfate [Iprat-Albut 0.5-3(2.5) Mg/3 Ml] 3 ML Amp IH PRN (15:12)
[2024-02-07] MEDS: acetaZOLAMIDE 250 MG TAB PO SCH (22:02)
[2024-02-07] MEDS: AMIODARONE HCL 200 MG TAB PO SCH (22:02)
[2024-02-07] MEDS: APIXABAN 5 MG TABLET PO SCH (22:02)
--- NOTE | 2024-02-08 08:44 | P.PN ---
Date of Service: 02/08/24 Subjective: Feeling better today. Breathing feels a little easier still dealing with some dyspnea but improved compared to few days ago. Doesn't feel worse. reportedly ran out of his home trelegy ~1 week prior to hospitalization afebrile ROS: 10 point ROS as noted above, otherwise negative Physical Exam: GEN: Alert, oriented, NAD HEENT: Normal conjunctiva, sclera anicteric, CV: Regular rate and rhythm, no edema Pulm: Nonlabored respirations on 2L NC, mild bibasilar crackles ABD: soft, nontender, nondistended Neuro: Normal speech, normal affect Problem List: Acute on chronic hypoxic/hypercapnic respiratory failure secondary to acute COPD exacerbation (on chronic steroids/home o2) Acute on chronic diastolic CHF chronic A-fib on chronic anticoagulation Hypertension BPH Tobacco dependence Acute on chronic hypoxic/hypercapnic respiratory failure secondary to acute COPD exacerbation (on chronic steroids/home o2) Acute on chronic diastolic CHF Presented with worsening shortness of breath for 1-2 days. Feels similar to past COPD exacerbations per patient. Uses oxygen at home chronically Reportedly ran out of his home Trelegy inhaler ~1 week prior to admission. Resume home trelegy (02/07) CXR (02/05): mild CHF Continue home diamox, daliresp, spironolactone continue IV steroids, duonebs IV lasix dc'd (02/07) on 2-3L NC. Near baseline repeat CXR to f/u opacities Improving chronic A-fib on chronic anticoagulation continue home amiodarone, eliquis Hypertension continue home amlodipine BPH continue home flomax Tobacco dependence cessation advised VTE: home eliquis Code: Full Dispo: Home, ~1 day
[2024-02-08] MEDS: TAMSULOSIN 0.4 MG SR CAP PO SCH (08:56)
[2024-02-08] MEDS: SPIRONOLACTONE 25 MG TABLET PO SCH (08:57)
[2024-02-08] MEDS: ROFLUMILAST 500 MCG TABLET PO SCH (08:57)
[2024-02-08] MEDS: AMLODIPINE 10 MG TAB PO SCH (08:57)
[2024-02-08] MEDS: MONTELUKAST 10 MG TAB PO SCH (08:57)
[2024-02-08] MEDS: VILANTER IH SCH (09:00)
[2024-02-08] MEDS: FLUTICASONE IH SCH (09:00)
[2024-02-08] MEDS: UMECLIDIN IH SCH (09:00)
[2024-02-08 09:46] LABS: Anion Gap 5.9 mEq/L (5.0-15.0); Magnesium 2.3 mg/dL (1.6-2.4); Potassium 3.9 mEq/L (3.5-5.1)
--- NOTE | 2024-02-08 13:05 | RAD REPORT ---
EXAM DESCRIPTION: RAD - Chest Single View - 02/08/2024 12:41 pm CLINICAL HISTORY: f/u pulm edema Chest pain. COMPARISON: Chest Single View dated 02/06/2024; Chest Single View dated 11/19/2023; Abdomen 1 View ([facility]) dated 11/17/2023; Abdomen 1 View ([facility]) dated 11/17/2023 FINDINGS: Portable technique limits examination quality. Since 02/06/2024 study, little overall change is seen in the mild interstitial prominence. Mild atele ctasis is also slightly progressive in the lung bases. The heart is mildly enlarged in size. No displ aced fractures.
[2024-02-09 07:04] LABS: Magnesium 2.1 mg/dL (1.6-2.4); Phosphorus 3.2 mg/dL (2.5-4.9)
--- NOTE | 2024-02-09 08:17 | P.DS ---
Admission Date: 02/06/24 Discharge Date: 02/09/24 Disposition: DC HOME/HOME HEALTH CARE Discharge Condition: GOOD Reason for Admission: COPD exacerbation Brief History of Present Illness: 68yo M, PMH: COPD on chronic steroids/home oxygen, hypertension, hyperlipidemia, chronic diastolic congestive heart failure, chronic atrial fibrillation Patient presents to the emergency department with chief complaint of shortness of breath. He followed by Dr. Holt as outpatient and has been doing good but started having shortness of breath since yesterday and has been progressively worsening and was brought to ER. The episode was similar to his previous COPD exacerbation. Patient reports he is still smoking approximately 1 pack/day at home, started feeling very short of breath this afternoon. Denies any fever or chills. No nausea vomiting or diarrhea. Denies any chest pain. Also has history of CHF for which he is taking Lasix . Has cough with mucoid expectoration. Hospital Course: Problem List: Acute on chronic hypoxic/hypercapnic respiratory failure secondary to acute COPD exacerbation (on chronic steroids/home o2) Acute on chronic diastolic CHF chronic A-fib on chronic anticoagulation Hypertension BPH Tobacco dependence Physician Discharge Instructions: Patient presented with worsening shortness of breath for ~2 days and was found to have an acute on chronic COPD exacerbation complicated by possible mild CHF exacerbation. Troponins were negative. Chest xray noted mild interstitial pullmonary edema which could be seen in mild CHF, otherwise no other acute findings. Patient had improvement with steroids, diuresis, along with oxygen supplementation and restarting his home meds/inhalers. Patient was feeling better, near his baseline, breathing more comfortably on his home oxygen settings, and was deemed stable for discharge. He did report running out of his Trelegy prior to admission which likely contr ibuted to his symptoms. Medications: Prednisone 20mg BID x 4 days continue other home medications as previously prescribed. Important to pickler helper your Trelegy inhaler from pharmacy as soon as possible to restart. Follow up: PCP 3-5 days Pulmonology in ~2 weeks Please call to schedule / confirm appointments Physical Exam: GEN: Alert, oriented, NAD HEENT: Normal conjunctiva, sclera anicteric, CV: Regular rate and rhythm, no edema Pulm: Nonlabored respirations on 2L NC, clear bilaterally ABD: soft, nontender, nondistended Neuro: Normal speech, normal affect Vital Signs/Physical Exam: Temp Pulse Resp BP Pulse Ox 97.1 F 88 20 111/55 L 91 02/09/24 04:00 02/09/24 04:00 02/09/24 04:00 02/09/24 04:00 02/09/24 04:00 Laboratory Data at Discharge: WBC 8.00 thou/uL (4.3-10.9) 02/06/24 17:05 Hgb 10.7 g/dL (13.6-17.9) L 02/06/24 17:05 Hct 32.9 % (39.6-49.0) L 02/06/24 17:05 Plt Count 259 thou/uL (152-406) 02/06/24 17:05 PT 12.1 SECONDS (9.5-12.5) 02/06/24 17:05 INR 1.10 02/06/24 17:05 Sodium 134 mEq/L (136-145) L 02/09/24 06:26 Potassium 4.0 mEq/L (3.5-5.1) 02/09/24 06:26 BUN 24 mg/dL (7-18) H 02/09/24 06:26 Creatinine 0.92 mg/dL (0.70-1.30) 02/09/24 06:26 Glucose 159 mg/dL (74-106) H 02/09/24 06:26 Phosphorus 3.2 mg/dL (2.5-4.9) 02/09/24 06:26 Magnesium 2.1 mg/dL (1.6-2.4) 02/09/24 06:26 Home Medications: Amlodipine [Norvasc*] 10 mg PO DAILY 02/22/23 Apixaban [Eliquis] 5 mg PO BID 02/22/23 Spironolactone 25 mg PO DAILY 02/22/23 Roflumilast [Daliresp*] 500 mcg PO DAILY 30 Days #30 tab 05/20/23 Tamsulosin [Flomax*] 0.4 mg PO DAILY 06/29/23 Ipratropium/Albuterol Sulfate [Iprat-Albut 0.5-3(2.5) mg/3 ml] 3 ml IH Q6H PRN #120 amp 08/20/23 Albuterol Inhaler [Ventolin Inhaler*] 2 puff IH Q6H PRN #2 inhaler 08/27/23 acetaZOLAMIDE [Diamox*] 250 mg PO BID #60 tab 08/27/23 Albuterol Neb [Proventil 0.083% Neb Soln] 2.5 mg NEB Q6HP PRN amp 11/13/23 Montelukast [Singulair*] 10 mg PO DAILY 11/19/23 Amiodarone HCl [Cordarone*] 200 mg PO BID #60 tab 11/23/23 Fluticasone/Umeclidin/Vilanter [Trelegy Ellipta 100-62.5-25] 1 puff IH DAILY 02/07/24 predniSONE [Deltasone*] 10 mg PO DAILYPRN PRN 02/07/24 predniSONE [Prednisone] 20 mg PO BID 4 Days #8 tab 02/09/24 New Medications: predniSONE [Prednisone] 20 mg PO BID 4 Days #8 tab Physician Discharge Instructions: Physician Discharge Instructions: Patient presented with worsening shortness of breath for ~2 days and was found to have an acute on chronic COPD exacerbation complicated by possible mild CHF exacerbation. Troponins were negative. Chest xray noted mild interstitial pullmonary edema which could be seen in mild CHF, otherwise no other acute findings. Patient had improvement with steroids, diuresis, along with oxygen supplementation and restarting his home meds/inhalers. Patient was feeling better, near his baseline, breathing more comfortably on his home oxygen settings, and was deemed stable for discharge. He did report running out of his Trelegy prior to admission which likely contributed to his symptoms. Medications: Prednisone 20mg BID x 4 days continue other home medications as previously prescribed. Important to pickler helper your Trelegy inhaler from pharmacy as soon as possible to restart. Follow up: PCP 3-5 days Pulmonology in ~2 weeks Please call to schedule / confirm appointments Home Health established: [facility] ([facility]) P:[phone] F:[phone] Efax:[phone] Followup: Meaghan Chisholm DO [Primary Care Provider] - Time spent managing pt's care (in minutes): 45
[2024-02-09 08:29] VITALS: BP 127/60; TEMP 97.9
[2024-02-09 10:41] VITALS: O2SAT 97
== END 2024-02-09 11:18 | disposition home health service (06) | DRG 291 ==
LOC: ER 16:40 → ERHOLD 19:42 → 4TH 20:20
PROVIDERS: ADMIT Family Medicine; ATTEND Hospitalist
DX: I11.0 Hypertensive heart disease with heart failure (principal); I50.33 Acute on chronic diastolic (congestive) heart failure; J96.21 Acute and chronic respiratory failure with hypoxia; J96.22 Acute and chronic respiratory failure with hypercapnia; J44.1 Chronic obstructive pulmonary disease with (acute) exacerbation; I48.20 Chronic atrial fibrillation, unspecified; E78.5 Hyperlipidemia, unspecified; N40.0 Benign prostatic hyperplasia without lower urinary tract symptoms; F17.210 Nicotine dependence, cigarettes, uncomplicated; Z63.5 Disruption of family by separation and divorce; Z99.81 Dependence on supplemental oxygen; Z79.01 Long term (current) use of anticoagulants; Z79.52 Long term (current) use of systemic steroids; Z79.899 Other long term (current) drug therapy
CPT/HCPCS: 36415; 71045; 80048; 83735; 83880; 84100; 84484; 85025; 85610; 93005; 94760; 96365; 99285; J1650; J1940; J2920; J3475; J7613; J7644

== ENCOUNTER 2024-04-11 22:31 | Inpatient (IN) | payer OTHER, BC ==
[2024-04-11] MEDS ORDERED: LEVALBUTEROL 1.25 MG/3 ML NEB ONE (23:41)
[2024-04-11] MEDS ORDERED: METHYLPREDNISOLONE 125 MG INJ ONE (23:41)
[2024-04-11] MEDS ORDERED: IPRATROPIUM BROM 0.5MG/2.5ML ONE (23:41)
[2024-04-11] MEDS ORDERED: Levofloxacin500mg IV 500 MG/100 ML BAG IV ONE (23:42)
[2024-04-12 00:07] LABS: Absolute Monocytes 0.8 K/uL (0.1-1.3); Absolute Neutrophil 7.1 K/uL (1.8-8.0); Basophils % 0.2 % (0-1.3); Eosinophils % 0.4 % (0-4.4); Hematocrit 32.7 % (39.6-49.0); Hemoglobin 10.4 g/dL (13.6-17.9); Lymphocytes % 11.2 % (15.3-44.8); MCH 25.5 pg (27.0-35.0); MCHC 31.6 g/dL (32.0-36.0); MCV 80.5 fL (80-100); MPV 7.7 fL (7.6-11.3); Monocytes % 9.3 % (3.3-12.3); Neutrophils % 78.9 % (41.7-73.7); Nucleated Red Blood Cells % 0.1 % (0-0); PT Prothrombin Time 11.1 SECONDS (9.4-12.5); Platelets 210 thou/uL (152-406); Protime INR 0.99; RBC Red Blood Cell Count 4.07 M/uL (4.33-5.43); Red Cell Distribution Width 17.2 % (12.1-15.2)
--- NOTE | 2024-04-12 00:20 | ER ---
Nurse's Notes [facility] Name: Randolph Mckeon Age: 69 yrs Sex: Male : 1955 Arrival Date: 04/11/2024 Time: 22:31 Bed 8 Private MD: Diagnosis: Dyspnea;Chronic combined systolic (congestive) and diastolic (congestive) heart failure;Hypoxemia;Anemia, unspecified Presentation: 04/11 22:38 Chief complaint: EMS states: reports SOB for the past two days. history of COPD. on ha1 arrival oxygen saturation at 92 room air. breathing treatment given of albuterol and Atrovent. Coronavirus screen: Vaccine status: Patient reports having had a previously documented Covid positive illness. Ebola Screen: No symptoms or risks identified at this time. Initial Sepsis Screen: Does the patient meet any 2 criteria? No. Patient's initial sepsis screen is negative. Does the patient have a suspected source of infection? No. Patient's initial sepsis screen is negative. Risk Assessment: Do you want to hurt yourself or someone else? Patient reports no desire to harm self or others. Onset of symptoms was April 11, 2024. 22:38 Method Of Arrival: EMS: [facility] 22:38 Acuity: YANNICK 2 ha1 Triage Assessment: 22:38 General: Appears uncomfortable, Behavior is calm. Pain: Denies pain. Neuro: Level of ha1 Consciousness is awake, alert, obeys commands, Oriented to person, place, time, situation. Cardiovascular: Heart tones S1 S2 present Capillary refill < 3 seconds Patient's skin is warm and dry. Respiratory: Reports shortness of breath at rest on exertion Airway is patent Respiratory effort is even, unlabored, Respiratory pattern is regular, symmetrical, Breath sounds with wheezes bilaterally. Onset: The symptoms/episode began/occurred yesterday, the patient has moderate shortness of breath. GI: No signs and/or symptoms were reported involving the gastrointestinal system. Abdomen is round non-distended. : No signs and/or symptoms were reported regarding the genitourinary system. Derm: Skin is pink, warm \\T\\ dry. Musculoskeletal: Circulation, motion, and sensation intact. Historical: - Allergies: 22:43 No Known Allergies; ha1 - Home Meds: 22:43 Metoprolol Tartrate Oral [Active]; tamsulosin Oral [Active]; Amlodipine [Active]; Lasix ha1 Oral [Active]; - PMHx: 22:43 Atrial fibrillation; CHF; Chronic obstructive lung disease; COPD; Hypertension; ha1 Pneumonia; - PSHx: 22:43 cyst removal on lower left limb; hernia; ha1 - Immunization history:: Adult Immunizations up to date, Pneumococcal vaccine is up to date, Flu vaccine is up to date. - Infectious Disease History:: Denies. - Social history:: Smoking status: Patient reports the use of cigarette tobacco products, smokes one-half pack cigarettes per day. - Family history:: not pertinent. Screenin:38 Abuse screen: Denies threats or abuse. Denies injuries from another. Nutritional ha1 screening: No deficits noted. Tuberculosis screening: No symptoms or risk factors identified. 23:[address] [facility] ED Fall Risk Assessment (Adult) History of falling in the last 3 months, pc2 including since admission No falls in past 3 months (0 pts) Confusion or Disorientation No (0 pts) Intoxicated or Sedated No (0 pts) Impaired Gait No (0 pts) Mobility Assist Device Used No (0 pt) Altered Elimination Score/Fall Risk Level 0 - 2 = Low Risk Oriented to surroundings, Maintained a safe environment, Hourly rounding (assess needs \\T\\ fall precautionary measures) done. Assessment: 22:38 Reassessment: see triage assessment. ha1 23:30 Reassessment: Patient and/or family updated on plan of care and expected duration. Pain ha1 level reassessed. Patient is alert, oriented x 3, equal unlabored respirations, skin warm/dry/pink. 04/12 00:30 Reassessment: Patient and/or family updated on plan of care and expected duration. Pain ha1 level reassessed. Patient is alert, oriented x 3, equal unlabored respirations, skin warm/dry/pink. 01:30 Reassessment: Patient and/or family updated on plan of care and expected duration. Pain ha1 level reassessed. Patient is alert, oriented x 3, equal unlabored respirations, skin warm/dry/pink. 15:30 Reassessment: Delayed report due to 2 on 1 care in ER room 4. Unstable patient. Changed ld1 nurse and ERP in ER room 4 with this RN - can attest to reason for delay. Charge nurse notified of delay. Vital Signs: 04/11 22:38 BP 130 / 70; Pulse 100; Resp 22 S; Temp 98.1(T); Pulse Ox 100% on 8 lpm Nebulizer Mask; ha1 Weight 86.64 kg; Height 5 ft. 11 in. ; 23:56 BP 135 / 63; Pulse 86; Resp 22; Pulse Ox 100% ; pc2 04/12 01:07 BP 131 / 72; Pulse 89; Resp 20; Pulse Ox 89% on R/A; pc2 01:18 BP 131 / 72; Pulse 85; Resp 19; Pulse Ox 100% 2 lpm ; pc2 02:00 BP 117 / 68; Pulse 91; Resp 20; Pulse Ox 94% on 2 lpm NC; ha1 03:00 BP 124 / 77; Pulse 86; Resp 20; Pulse Ox 96% on 2 lpm NC; pc2 04/11 22:38 Body Mass Index 26.64 (86.64 kg, 180.34 cm) ha1 ED Course: 04/11 22:32 Patient arrived in ED. [id number] 22:38 Gretel Lui, SAMEER is Primary Nurse. ha1 22:40 Eligio Amador MD is Attending Physician. kamar 22:43 Triage completed. ha1 22:46 Maintain EMS IV. Dressing intact. Good blood return noted. Site clean \\T\\ dry. Gauge \\T\\ blackburn 1 site: 20 gauge LFA. 23:10 Arm band placed on right wrist. pc2 23:15 Patient has correct armband on for positive identification. Bed in low position. Call pc2 light in reach. Side rails up X2. 23:20 Initial lab(s) drawn, by me, sent to lab. First set of blood cultures drawn. pc2 23:22 XRAY Chest (1 view) In Process Unspecified. EDMS 23:25 Client placed on continuous cardiac and pulse oximetry monitoring. NIBP monitoring pc2 applied. 23:25 Provided Education on: POC and time frame. pc2 23:30 Second set of blood cultures drawn by me. pc2 23:54 No provider procedures requiring assistance completed. pc2 04/12 00:19 John Morales MD is Hospitalizing Provider. kamar 12:11 CM met with at bedside in the ED exam room. Patient identified by name and ane . Demographic sheet confirmed and changes sent to appropriate personnel. Patient states he lives with his mother Kelly in a single story home. Prior to admission, patient states he perform ADLs independently. DME in the home includes "3 walkers, a couple canes and a wheelchair". Patient reports using a shower chair, nebulizer and also a oxygen concentrator through [facility]. No MPOA in place at this time. Patient reports staying a month at [facility] previously but his preferred plan is to return to Kelly's home. He reports his brother Migue Mckeon can transport him home upon discharge. CM team will continue to follow and coordinate care. 15:55 Patient admitted, IV remains in place. mb9 Administered Medications: 04/11 23:52 Drug: levofloxacin IVPB 500 mg 100 ml IVPB once over 60 mins Volume: 100 ml; Route: pc2 IVPB; Infused Over: 60 mins; Site: left forearm; 04/12 00:50 Follow up: Response: No adverse reaction; IV Status: Completed infusion ha1 04/11 23:53 Drug: MethylPrednisoLONE IVP 125 mg IVP once Route: IVP; Site: left forearm; pc2 04/12 00:20 Follow up: Response: No adverse reaction ha1 04/11 23:53 Drug: Levalbuterol Inhalation 3.75 mg Inhalation once Route: Inhalation; pc2 04/12 00:20 Follow up: Response: No adverse reaction; Marked relief of symptoms ha1 04/11 23:53 Drug: Ipratropium Inhalation Aerosol 0.5 mg Inhalation once Route: Inhalation; pc2 04/12 00:20 Follow up: Response: No adverse reaction; Marked relief of symptoms ha1 Medication: 04/11 23:55 VIS not applicable for this client. pc2 Outcome: 04/12 00:20 Decision to Hospitalize by Provider. kamar 02:00 [facility] to [facility] ha1 02:00 Condition: stable 02:00 Instructed on the need for admit, Demonstrated understanding of 16:02 Patient left the ED. ap3 Signatures: Dispatcher [employer] EDMS Eligio Amador MD MD cha Prokisch, Amanda RN RN ap3 Tricia Herrera RN RN ld1 Sushma Harvey jj6 Gretel Lui RN RN ha1 Nidhi Valiente RN RN mb9 Maryann Rose RN RN pc2 Evens, Yesy, RN RN ane
--- NOTE | 2024-04-12 00:21 | EDPHYS ---
Physician Documentation [facility] Name: Randolph Mckeon Age: 69 yrs Sex: Male : 1955 Arrival Date: 04/11/2024 Time: 22:31 Bed 8 Private MD: ED Physician Eligio Amador HPI: 04/11 23:03 This 69 yrs old Male presents to ER via EMS with complaints of Shortness Of kamar Breath. 23:03 The patient has shortness of breath at rest, with light activity. Onset: The kamar symptoms/episode began/occurred 2 day(s) ago. Duration: The symptoms are continuous, and are steadily getting worse. The patient's shortness of breath is aggravated by coughing, light activity. Associated signs and symptoms: Pertinent positives: non-productive cough. Severity of symptoms: At their worst the symptoms were moderate in the emergency department the symptoms are unchanged. The patient has experienced similar episodes in the past, multiple times. Historical: - Allergies: 22:43 No Known Allergies; ha1 - Home Meds: 22:43 Metoprolol Tartrate Oral [Active]; tamsulosin Oral [Active]; Amlodipine [Active]; Lasix ha1 Oral [Active]; - PMHx: 22:43 Atrial fibrillation; CHF; Chronic obstructive lung disease; COPD; Hypertension; ha1 Pneumonia; - PSHx: 22:43 cyst removal on lower left limb; hernia; ha1 - Immunization history:: Adult Immunizations up to date, Pneumococcal vaccine is up to date, Flu vaccine is up to date. - Infectious Disease History:: Denies. - Social history:: Smoking status: Patient reports the use of cigarette tobacco products, smokes one-half pack cigarettes per day. - Family history:: not pertinent. ROS: 23:03 Constitutional: Negative for fever, chills, and weight loss, Eyes: Negative for injury, kamar pain, redness, and discharge, ENT: Negative for injury, pain, and discharge, Neck: Negative for injury, pain, and swelling, Cardiovascular: Negative for chest pain, palpitations, and edema, Abdomen/GI: Negative for abdominal pain, nausea, vomiting, diarrhea, and constipation, Back: Negative for injury and pain, : Negative for injury, bleeding, discharge, and swelling, MS/Extremity: Negative for injury and deformity, Skin: Negative for injury, rash, and discoloration, Neuro: Negative for headache, weakness, numbness, tingling, and seizure, Psych: Negative for depression, anxiety, suicide ideation, homicidal ideation, and hallucinations, Allergy/Immunology: Negative for hives, rash, and allergies, Endocrine: Negative for neck swelling, polydipsia, polyuria, polyphagia, and marked weight changes, Hematologic/Lymphatic: Negative for swollen nodes, abnormal bleeding, and unusual bruising, 23:03 Respiratory: Positive for cough, shortness of breath, on exertion. Exam: 23:03 Constitutional: This is a well developed, well nourished patient who is awake, alert, kamar and in no acute distress. Head/Face: Normocephalic, atraumatic. Eyes: Pupils equal round and reactive to light, extra-ocular motions intact. Lids and lashes normal. Conjunctiva and sclera are non-icteric and not injected. Cornea within normal limits. Periorbital areas with no swelling, redness, or edema. ENT: Nares patent. No nasal discharge, no septal abnormalities noted. Tympanic membranes are normal and external auditory canals are clear. Oropharynx with no redness, swelling, or masses, exudates, or evidence of obstruction, uvula midline. Mucous membranes moist. Neck: Trachea midline, no thyromegaly or masses palpated, and no cervical lymphadenopathy. Supple, full range of motion without nuchal rigidity, or vertebral point tenderness. No Meningismus. Chest/axilla: Normal chest wall appearance and motion. Nontender with no deformity. No lesions are appreciated. Cardiovascular: Regular rate and rhythm with a normal S1 and S2. No gallops, murmurs, or rubs. Normal PMI, no JVD. No pulse deficits. Abdomen/GI: Soft, non-tender, with normal bowel sounds. No distension or tympany. No guarding or rebound. No evidence of tenderness throughout. Back: No spinal tenderness. No costovertebral tenderness. Full range of motion. Male : Normal genitalia with no discharge or lesions. Skin: Warm, dry with normal turgor. Normal color with no rashes, no lesions, and no evidence of cellulitis. MS/ Extremity: Pulses equal, no cyanosis. Neurovascular intact. Full, normal range of motion. Neuro: Awake and alert, GCS 15, oriented to person, place, time, and situation. Cranial nerves II-XII grossly intact. Motor strength 5/5 in all extremities. Sensory grossly intact. Cerebellar exam normal. Normal gait. Psych: Awake, alert, with orientation to person, place and time. Behavior, mood, and affect are within normal limits. 23:03 Respiratory: mild respiratory distress is noted, Respirations: labored breathing, that is mild, Breath sounds: bronchial sounds, decreased breath sounds, that are mild, rhonchi, that are mild, are scattered, stridor, is not appreciated, + upper airway congestion. wheezing: inspiratory expiratory 23:34 ECG was reviewed by the Attending Physician. [facility] Vital Signs: 22:38 BP 130 / 70; Pulse 100; Resp 22 S; Temp 98.1(T); Pulse Ox 100% on 8 lpm Nebulizer Mask; 1 Weight 86.64 kg; Height 5 ft. 11 in. ; 23:56 BP 135 / 63; Pulse 86; Resp 22; Pulse Ox 100% ; pc2 04/12 01:07 BP 131 / 72; Pulse 89; Resp 20; Pulse Ox 89% on R/A; pc2 01:18 BP 131 / 72; Pulse 85; Resp 19; Pulse Ox 100% 2 lpm ; pc2 02:00 BP 117 / 68; Pulse 91; Resp 20; Pulse Ox 94% on 2 lpm NC; 1 03:00 BP 124 / 77; Pulse 86; Resp 20; Pulse Ox 96% on 2 lpm NC; pc2 04/11 22:38 Body Mass Index 26.64 (86.64 kg, 180.34 cm) [facility] MDM: 04/11 22:40 Patient medically screened. [facility] 23:05 Differential diagnosis: Anemia Anxiety Reaction asthma, Bronchitis CHF exacerbation, kamar Chronic Obstructive Pulmonary Disease Myocardial Infarction pneumonia, Pneumothorax Psychogenic pulmonary edema, Pulmonary Embolism reactive airway disease, Sepsis Unstable Angina. Antibiotic administration: Levaquin given. Immunization status: Pneumococcal vaccine: within last 5 years. Influenza vaccine: within last 5 years. Data reviewed: vital signs, nurses notes, EMS record, lab test result(s), EKG, radiologic studies, plain films. Consideration of Admission/Observation Patient was admitted/placed on observation. Escalation of care including admission/observation considered. I considered the following discharge prescriptions or medication management in the emergency department Medications were administered in the Emergency Department. See MAR. Independent interpretation of the following test(s) in the Emergency Department EKG: See my EKG interpretation above. Test considered but Not performed: CT: no ct chest. 04/11 22:56 Order name: Basic Metabolic Panel [facility] 04/11 22:56 Order name: CBC with Diff; Complete Time: 00:18 [facility] 04/11 22:56 Order name: LFT's [facility] 04/11 22:56 Order name: Magnesium [facility] 04/11 22:56 Order name: NT PRO-BNP [facility] 04/11 22:56 Order name: PT-INR; Complete Time: 00:18 [facility] 04/11 22:56 Order name: Troponin HS [facility] 04/11 22:56 Order name: Blood Culture Adult (2) [facility] 04/11 22:56 Order name: Lactate w/ 2H reflex if indic.; Complete Time: 00:38 [facility] 04/11 22:56 Order name: Urinalysis w/ reflexes [facility] 04/11 22:57 Order name: SARS RAPID [facility] 04/11 22:57 Order name: Flu [facility] 04/12 01:36 Order name: Urinalysis w/ reflexes [facility] 04/12 01:36 Order name: CBC with Automated Diff [facility] 04/12 01:36 Order name: CBC with Automated Diff [facility] 04/12 01:36 Order name: Comprehensive Metabolic Panel [facility] 04/12 01:36 Order name: Comprehensive Metabolic Panel [facility] 04/12 01:36 Order name: Creatine Phosphokinase [facility] 04/12 01:36 Order name: Creatine Phosphokinase [facility] 04/12 01:36 Order name: Creatine Phosphokinase [facility] 04/12 01:43 Order name: Creatine Phosphokinase [facility] 04/12 02:04 Order name: Urine Culture [facility] 04/12 15:35 Order name: Gram Stain--Anaerobic Bottle [facility] 04/11 22:56 Order name: XRAY Chest (1 view) [facility] 04/11 23:31 Order name: EKG; Complete Time: 23:32 [facility] 04/11 22:56 Order name: Cardiac monitoring; Complete Time: 23:28 [facility] 04/11 22:56 Order name: EKG - Nurse/Tech; Complete Time: 23:28 [facility] 04/11 22:56 Order name: IV Saline Lock; Complete Time: 23:12 [facility] 04/11 22:56 Order name: Labs collected and sent; Complete Time: 23:28 [facility] 04/11 22:56 Order name: O2 Per Protocol; Complete Time: 23:12 kamar 04/11 22:56 Order name: O2 Sat Monitoring; Complete Time: 23:12 kamar 04/11 23:31 Order name: EKG - Nurse/Tech; Complete Time: 23:53 [facility] EC:34 Rate is 96 beats/min. Rhythm is regular. QRS [place] is Normal. [place] interval is normal. QRS kamar interval is normal. QT interval is normal. No Q waves. T waves are Normal. No ST changes noted. Clinical impression: Abnormal EKG without significant change and No evidence of ischemia. Interpreted by me. Reviewed by me. Administered Medications: 23:52 Drug: levofloxacin IVPB 500 mg 100 ml IVPB once over 60 mins Volume: 100 ml; Route: pc2 IVPB; Infused Over: 60 mins; Site: left forearm; 04/12 00:50 Follow up: Response: No adverse reaction; IV Status: Completed infusion ha1 04/11 23:53 Drug: MethylPrednisoLONE IVP 125 mg IVP once Route: IVP; Site: left forearm; pc2 04/12 00:20 Follow up: Response: No adverse reaction ha1 04/11 23:53 Drug: Levalbuterol Inhalation 3.75 mg Inhalation once Route: Inhalation; pc2 04/12 00:20 Follow up: Response: No adverse reaction; Marked relief of symptoms ha1 04/11 23:53 Drug: Ipratropium Inhalation Aerosol 0.5 mg Inhalation once Route: Inhalation; pc2 04/12 00:20 Follow up: Response: No adverse reaction; Marked relief of symptoms ha1 Disposition Summary: 04/12/24 00:20 Hospitalization Ordered Notes: Hospitalization Status: Inpatient Admission kamar Provider: John Morales kamar Condition: Stable kamar Problem: new kamar Symptoms: have improved kamar Bed/Room Type: Standard kamar Location: Telemetry/MedSurg (Inpatient)(04/12/24 14:36) Room Assignment: 213(04/12/24 14:36) bd Diagnosis - Dyspnea kamar - Chronic combined systolic (congestive) and diastolic (congestive) heart failure kamar - Hypoxemia kamar - Anemia, unspecified kamar Forms: - Medication Reconciliation Form kamar - SBAR form kamar - Leadership Thank You Letter kamar Signatures: Dispatcher [employer] EDJenny Campos Corey, MD MD cha Garcia, Cindy, RN RN Gretel Russ RN RN ha1 Maryann Rose, RN RN pc2 Corrections: (The following items were deleted from the chart) 04/11 22:57 22:57 BASIC METABOLIC PANEL+C.LAB.BRZ ordered. EDMS EDMS 22:57 22:57 CBC+H.LAB.BRZ ordered. EDMS EDMS 22:57 22:57 HEPATIC FUNCTION+C.LAB.BRZ ordered. EDMS EDMS 22:57 22:57 MAGNESIUM+C.LAB.BRZ ordered. EDMS EDMS 22:57 22:57 PROBNP+C.LAB.BRZ ordered. EDMS EDMS 22:57 22:57 PROTIME (+INR)+COAG.LAB.BRZ ordered. EDMS EDMS 22:57 22:57 Troponin High Sensitivity+C.LAB.BRZ ordered. EDMS EDMS 22:57 22:57 BLOOD CULTURE*+BA.LAB.BRZ ordered. EDMS EDMS 22:57 22:57 LACTATE+C.LAB.BRZ ordered. EDMS EDMS 22:57 22:57 Urinalysis+U.LAB.BRZ ordered. EDMS EDMS 22:57 22:57 Chest Single View+RAD.RAD.BRZ ordered. EDMS EDMS 04/12 01:41 01:36 Creatine Phosphokinase ordered. EDMS EDMS 01:47 00:20 Telemetry/MedSurg (Inpatient) kamar cg 01:47 00:20 [facility] cg 14:36 01:47 BR ER HOLD cg bd 14:36 01:47 ERHOLD- cg bd
[2024-04-12 00:24] LABS: ALT/SGPT 21 U/L (16-61); Alkaline Phosphatase 59 U/L (45-117); Anion Gap 7.8 mEq/L (5.0-15.0); BUN Blood Urea Nitrogen 18 mg/dL (7-18); Bicarbonate 32 mEq/L (21-32); Bilirubin Total 0.3 mg/dL (0.2-1.0); Globulin 2.9 g/dL (2.3-3.5); Glomerular Filtration Rate 91 ml/min (=/>90); Glucose Level 140 mg/dL (74-106); NT PRO-BNP 123 pg/mL (<125); Potassium 3.8 mEq/L (3.5-5.1); Protein, Total 5.9 g/dL (6.4-8.2); Sodium Level 141 mEq/L (136-145); Troponin High Sensitivity 7.9 pg/mL (<58.9)
[2024-04-12 00:32] LABS: AST/SGOT < 10 U/L (15-37); Bilirubin Direct < 0.2 mg/dL (0-0.2); Bilirubin Indirect, Calculated 0.1 mg/dL (0.2-0.8)
--- NOTE | 2024-04-12 00:46 | P.HP ---
Certification for Inpatient Patient admitted to: Inpatient With expected LOS: >2 Midnights Practitioner: I am a practitioner with admitting privileges, knowledge of patient current condition, hospital course, and medical plan of care. Services: Services provided to patient in accordance with Admission requirements found in Title 42 Section 412.3 of the Code of Federal Regulations Patient History Date of Service: 04/12/24 Reason for admission: SOB History of Present Illness: 69 yrs old Male with past medical history of atrial fibrillation, CHF, COPD, seizures hypertension, pneumonia, was brought to ER with shortness of breath. Has been going on for the last 2 days and has been progressively getting worse. Denies any chest pain. No fever or chills. Associated with cough which is nonproductive. Shortness of breath worse with movements and minimal exertions. Denies any nausea vomiting or diarrhea. Patient was assessed in the ER and is admitted for further management of COPD exacerbation Allergies No Known Allergies Allergy (Verified 11/12/23 14:18) Home medications list reviewed: Yes Home Medications: Amlodipine [Norvasc*] 10 mg PO DAILY 02/22/23 Spironolactone 25 mg PO DAILY 02/22/23 Roflumilast [Daliresp*] 500 mcg PO DAILY 30 Days #30 tab 05/20/23 Tamsulosin [Flomax*] 0.4 mg PO DAILY 06/29/23 Ipratropium/Albuterol Sulfate [Iprat-Albut 0.5-3(2.5) mg/3 ml] 3 ml IH Q6H PRN #120 amp 08/20/23 Albuterol Inhaler [Ventolin Inhaler*] 2 puff IH Q6H PRN #2 inhaler 08/27/23 Albuterol Neb [Proventil 0.083% Neb Soln] 2.5 mg NEB Q6HP PRN amp 11/13/23 Montelukast [Singulair*] 10 mg PO DAILY 11/19/23 Amiodarone HCl [Cordarone*] 200 mg PO BID #60 tab 11/23/23 Fluticasone/Umeclidin/Vilanter [Trelegy Ellipta 100-62.5-25] 1 puff IH DAILY 02/07/24 Apixaban [Eliquis] 5 mg PO BID 02/17/24 predniSONE [Deltasone*] 10 mg PO DAILY #30 tab 03/17/24 - Past Medical/Surgical History Diabetic: No Past Medical History: Reviewed- Non-Contributory -: COPD on chronic home O2/steroids -: Hypertension -: Alcohol abuse -: Hyponatremia -: Diastolic CHF -: Pneumonia -: A-fibon chronic anticoagulation Past Surgical History: Reviewed- Non-Contributory -: Hernia repair -: left leg wound -: Left foot cancer removal Psychosocial/ Personal History: Patient is . He lives at home and has home health. - Family History Father -: Heart disease Brother -: Lung disease - Social History Smoking Status: Former smoker Alcohol use: No CD- Drugs: No Caffeine use: Yes Review of Systems 10-point ROS is otherwise unremarkable Physical Examination - Vital Signs Temperature: 97.2 F Blood Pressure: 136/72 Pulse: 70 Respirations: 20 Pulse Ox (%): 94 - Physical Exam General: Alert, Oriented x3, Moderate distress HEENT: Atraumatic, Normocephalic Neck: Supple Respiratory: Diminished, Crackles/rales, Expiratory wheezes Cardiovascular: Normal pulses, Regular rate/rhythm, Normal S1 S2 Capillary refill: <2 Seconds Gastrointestinal: Soft and benign, Non-distended, W/out hepatosplenomegaly Musculoskeletal: No clubbing Integumentary: No significant lesion, No tenderness/swelling Neurological: Normal speech, Normal strength at 5/5 x4 extr, Cranial nerves 3-12 intact, Normal reflexes 2+ Lymphatics: No axilla or inguinal lymphadenopathy - Studies Laboratory Data (last 24 hrs) 04/11/24 04/11/24 04/11/24 23:20 23:20 23:20 WBC 9.00 Hgb 10.4 L Hct 32.7 L Plt Count 210 PT 11.1 INR 0.99 Sodium 141 Potassium 3.8 BUN 18 Creatinine 0.92 Glucose 140 H Magnesium 2.0 Total Bilirubin 0.3 AST < 10 L ALT 21 Alkaline Phosphatase 59 Assessment and Plan - Plan Acute hypoxic hypercapnic respiratory failure Placed on BiPAP We will try to wean down Monitor closely on telemetry ABG findings noted X-ray noted as well COPD exacerbation Monitor closely on telemetry Started on bronchodilators Oxygen supplementation Steroids added ABG findings noted Chest x-ray findings noted Pulmonology consult if not better in the a.m. Acute on chronic CHF possibly diastolic Monitor closely on telemetry Started on aggressive diuresis Oxygen supplementation Will try to wean down oxygen requirement Continue home medications Will obtain an echocardiogram Cardiology consult Hypertension Atrial fibrillation Continue home medication Tobacco abuse Cessation education provided GI/DVT prophylaxis Advanced directive full code Discharge Plan: Home Plan to discharge in: 48 Hours - Advance Directives Does patient have a Living Will: No Does patient have a Durable POA for Healthcare: No - Code Status/Comfort Care Code Status: Full Code Time Spent Managing Pts Care (In Minutes): 48
[2024-04-12 01:19] LABS: SARS-CoV-2 Antigen CONTROL BLUE LINE VIS/BG OK; SARS-CoV-2 Antigen Rapid Res Negative (Negative)
[2024-04-12] MEDS ORDERED: ONDANSETRON 4 MG/2 ML VIAL IV PRN (01:30)
[2024-04-12 01:53] LABS: Creatine Phosphokinase 30 U/L (39-308)
[2024-04-12 01:59] LABS: Sqamous Epithelial None Seen /HPF (None Seen); Urine Bacteria <20 /HPF (<20); Urine Bilirubin NEGATIVE (Negative); Urine Blood Negative (Negative); Urine Clarity Extremely Turbid (Clear); Urine Color Yellow (Yellow); Urine Culture Reflex Order REFLEXED; Urine Glucose NEGATIVE (Negative); Urine Ketones NEGATIVE (Negative); Urine Microscopic Reflex YN ORDER UMIC; Urine Mucus Slight /HPF (None Seen); Urine Nitrite NEGATIVE (Negative); Urine Protein 1+ (Negative); Urine RBC None Seen /HPF (None Seen); Urine Triple Phosphate Crystal Moderate /HPF (None Seen); Urine Urobilinogen 1+ (Normal); Urine WBC 20-50 /HPF (<5)
[2024-04-12 03:04] VITALS: BMI 26.6
[2024-04-12] MEDS ORDERED: METHYLPREDNISOLONE 40 MG INJ ONE (08:09)
[2024-04-12] MEDS ORDERED: FUROSEMIDE 20 MG/ 2ML VIAL ONE (08:09)
[2024-04-12] MEDS ORDERED: ENOXAPARIN 40 MG/0.4 ML SQ ONE (08:10)
[2024-04-12] MEDS ORDERED: ALBUTEROL 2.5 MG/3 ML NEB SOL ONE ×2 (08:25→14:20)
[2024-04-12] MEDS ORDERED: IPRATROPIUM BROM 0.5MG/2.5ML ONE ×2 (08:25→14:21)
[2024-04-12] MEDS: IPRATROPIUM BROM 0.5MG/2.5ML NEB SCH (08:40)
[2024-04-12] MEDS: ALBUTEROL 2.5 MG/3 ML NEB SOL NEB SCH (08:40)
[2024-04-12] MEDS: FUROSEMIDE 20 MG/ 2ML VIAL IV SCH (08:50)
[2024-04-12] MEDS: ENOXAPARIN 40 MG/0.4 ML SQ SCH (08:51)
[2024-04-12] MEDS: METHYLPREDNISOLONE 40 MG INJ IV SCH (08:51)
--- NOTE | 2024-04-12 16:56 | EKG ---
Test Date: 2024-04-11 Test Time: 23:24:25 Lighter: RIA MEASUREMENT RESULTS: Intervals: Rate: 93 OR: 194 QRSD: 86 QT: 344 QTc: 427 [place]: P: 65 OR: 194 QRS: 31 T: 71 INTERPRETIVE STATEMENTS: Normal sinus rhythm Anteroseptal infarct, age undetermined Compared to ECG 03/14/2024 16:00:50 Myocardial infarct finding now present Incomplete right bundle-branch block no longer present Electronically Signed On 04-12-24 16:55:29 CDT by Willie Leonard
--- NOTE | 2024-04-12 16:56 | EKG ---
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
--- NOTE | 2024-04-12 17:16 | RAD REPORT ---
EXAM DESCRIPTION: RAD - Chest Single View - 04/11/2024 11:21 pm CLINICAL HISTORY: The patient is 69 years old and is Male; Cough;Dyspnea TECHNIQUE: Frontal view of the chest. COMPARISON: No relevant prior studies available. FINDINGS: LUNGS: Coarse interstitial markings are present. Minimal bibasilar opacities are noted, left greater than right. There is no lobar consolidation. PLEURAL SPACE: Unremarkable. No pneumothorax. HEART: Unremarkable. No cardiomegaly. MEDIASTINUM: Unremarkable. Normal mediastinal contour. BONES/JOINTS: Unremarkable. No acute fracture. UPPER ABDOMEN: Unremarkable as visualized. IMPRESSION: Findings suggest bibasilar atelectasis. Electronically signed by: Constance Valel MD 04/11/2024 11:33 PM CDT RP Due to temporary technical issues with the PACS/Fluency reporting system, reports are being signed by the in house radiologists without review as a courtesy to insure prompt reporting. The interpreting radiologist is fully responsible for the content of the report.
--- NOTE | 2024-04-12 17:40 | P.PN ---
Date of Service: 04/12/24 Patient seen and examined. He states he feels much better. He reports significant improvement in shortness of breath. Oxygen saturation is stable with 3 L of oxygen by nasal cannula. Diagnosis: COPD exacerbation Continue scheduled nebs, IV steroid. Pulmonary consult. Resume home medications.
[2024-04-12] MEDS: APIXABAN 5 MG TABLET PO SCH (21:14)
[2024-04-13 04:53] LABS: Absolute Lymphocytes (CBC) 0.3 K/uL (0.7-4.9); Absolute Monocytes 1.1 K/uL (0.1-1.3); Absolute Neutrophil 14.6 K/uL (1.8-8.0); Basophils % 0.1 % (0-1.3); Hematocrit 31.7 % (39.6-49.0); Hemoglobin 9.8 g/dL (13.6-17.9); Lymphocytes % 1.7 % (15.3-44.8); MCHC 31.1 g/dL (32.0-36.0); MCV 80.4 fL (80-100); MPV 7.2 fL (7.6-11.3); Monocytes % 6.7 % (3.3-12.3); Neutrophils % 91.5 % (41.7-73.7); Platelets 218 thou/uL (152-406); RBC Red Blood Cell Count 3.94 M/uL (4.33-5.43); Red Cell Distribution Width 17.3 % (12.1-15.2)
[2024-04-13 05:04] LABS: ALT/SGPT 18 U/L (16-61); Albumin 2.9 g/dL (3.4-5.0); Alkaline Phosphatase 53 U/L (45-117); Anion Gap 5.2 mEq/L (5.0-15.0); BUN Blood Urea Nitrogen 19 mg/dL (7-18); Bicarbonate 38 mEq/L (21-32); Bilirubin Total 0.2 mg/dL (0.2-1.0); Globulin 2.8 g/dL (2.3-3.5); Glomerular Filtration Rate 96 ml/min (=/>90); Glucose Level 138 mg/dL (74-106); Potassium 4.2 mEq/L (3.5-5.1); Protein, Total 5.7 g/dL (6.4-8.2); Sodium Level 138 mEq/L (136-145)
[2024-04-13 05:06] LABS: AST/SGOT < 10 U/L (15-37)
[2024-04-13 05:34] LABS: Band Neutrophils 14 % (0-1); Blood Morphology Comment NOT SEEN (NOT SEEN); Differential Total Cells Count 100; Lymphocytes 3 % (15-42); Monocytes 3 % (0-10); Platelet Estimate ADEQ; Segmented Neutrophils 80 % (40-80)
[2024-04-13] MEDS: VILANTER IH SCH (09:00)
[2024-04-13] MEDS: UMECLIDIN IH SCH (09:00)
[2024-04-13] MEDS: FLUTICASONE IH SCH (09:00)
[2024-04-13] MEDS: SPIRONOLACTONE 25 MG TABLET PO SCH (09:34)
[2024-04-13] MEDS: TAMSULOSIN 0.4 MG SR CAP PO SCH (09:34)
[2024-04-13] MEDS: AMLODIPINE 10 MG TAB PO SCH (09:35)
[2024-04-13] MEDS: AMIODARONE HCL 200 MG TAB PO SCH (09:35)
[2024-04-13] MEDS: ROFLUMILAST 500 MCG TABLET PO SCH (09:38)
[2024-04-13] MEDS: MONTELUKAST 10 MG TAB PO SCH (09:40)
--- NOTE | 2024-04-13 12:50 | P.PN ---
Subjective Date of Service: 04/13/24 Chief Complaint: SOB Patient reports improvement in his shortness of breath. No issues overnight. Blood pressure has been stable. She reports intermittent nonproductive cough. Physical Examination - Vital Signs Temperature: 97.8 F Blood Pressure: 134/64 Pulse: 89 Respirations: 18 Pulse Ox (%): 93 - Physical Exam General: Alert, In no apparent distress, Oriented x3 HEENT: Mucous membr. moist/pink, Sclerae nonicteric Neck: Supple, JVD not distended Respiratory: Normal air movement, Expiratory wheezes (Mild scattered wheezes) Cardiovascular: No edema, Regular rate/rhythm, Normal S1 S2 Gastrointestinal: Normal bowel sounds, Soft and benign, Non-distended, No tenderness Musculoskeletal: No swelling, No tenderness Integumentary: No rashes, No cyanosis Neurological: Normal strength at 5/5 x4 extr Assessment And Plan - Current Problems (Diagnosis) (1) COPD with exacerbation Current Visit: No Status: Acute (2) Chronic respiratory failure with hypoxia and hypercapnia Current Visit: No Status: Acute (3) Chronic diastolic heart failure Current Visit: No Status: Chronic (4) Hypertension Current Visit: No Status: Chronic Qualifiers: - Plan Acute hypoxic and hypercapnic respiratory failure COPD exacerbation Continue scheduled nebs Continue steroid Patient is now tolerating baseline home oxygen 2 L by nasal cannula Pulmonary consult. Acute on chronic CHF possibly diastolic Patient significantly improved with IV Lasix. Transition to oral Lasix. Oxygen supplementation Continue Aldactone. Hypertension Atrial fibrillation Continue home medications Tobacco abuse Smoking cessation advised. GI/DVT prophylaxis: On Eliquis Advanced directive: full code
[2024-04-14 06:31] LABS: Absolute Lymphocytes (CBC) 0.2 K/uL (0.7-4.9); Absolute Monocytes 0.5 K/uL (0.1-1.3); Absolute Neutrophil 8.3 K/uL (1.8-8.0); Hematocrit 31.9 % (39.6-49.0); Hemoglobin 10.1 g/dL (13.6-17.9); Lymphocytes % 1.7 % (15.3-44.8); MCH 25.5 pg (27.0-35.0); MCHC 31.6 g/dL (32.0-36.0); MCV 80.5 fL (80-100); MPV 7.5 fL (7.6-11.3); Monocytes % 5.7 % (3.3-12.3); Neutrophils % 92.6 % (41.7-73.7); Platelets 194 thou/uL (152-406); RBC Red Blood Cell Count 3.97 M/uL (4.33-5.43); Red Cell Distribution Width 16.5 % (12.1-15.2)
[2024-04-14 06:50] LABS: Anion Gap 4.1 mEq/L (5.0-15.0); Potassium 4.1 mEq/L (3.5-5.1)
--- NOTE | 2024-04-14 10:18 | P.PN ---
Subjective Date of Service: 04/14/24 Chief Complaint: SOB Patient reports reported an episode of coughing spell and wheezing last night. Patient has been afebrile. He is tolerating diet. Physical Examination - Vital Signs Temperature: 97.9 F Blood Pressure: 123/63 Pulse: 87 Respirations: 20 Pulse Ox (%): 96 - Studies Microbiology Data (last 24 hrs): 04/11/24 23:20 Blood - Blood Aerobic Blood Culture - Final 04/11/24 23:20 Blood - Blood Blood Culture Gram Stain - Final 04/11/24 23:20 Blood - Blood Anaerobic Blood Culture - Final 04/11/24 23:20 Blood - Blood Gram Stain - Final Assessment And Plan - Current Problems (Diagnosis) (1) COPD with exacerbation Current Visit: No Status: Acute (2) Chronic respiratory failure with hypoxia and hypercapnia Current Visit: No Status: Acute (3) Chronic diastolic heart failure Current Visit: No Status: Chronic (4) Hypertension Current Visit: No Status: Chronic Qualifiers: - Plan Acute hypoxic and hypercapnic respiratory failure COPD exacerbation ABG shows CO2 retention-higher than baseline Continue scheduled nebs Continue steroid Wean oxygen down to a target oxygen saturation of 90 to 92% Pulmonary consulted Acute on chronic diastolic CHF Patient appears compensated for CHF Discontinue Lasix. Oxygen supplementation Continue Aldactone. Gram-positive bacteremia 2 blood culture bottles are growing alpha hemolytic strep. This is probably a skin contaminant Start IV Rocephin Repeat blood cultures. UTI Urine cultures growing gram-negative rods. IV Rocephin Follow urine culture organism identification and antibiotic sensitivity. Hypertension Atrial fibrillation Continue home medications Tobacco abuse Smoking cessation advised. GI/DVT prophylaxis: On Eliquis Advanced directive: full code
[2024-04-14 10:29] LABS: Arterial Blood Carboxyhemoglob 0.1 % (0-1.5); Blood Gas THB 10.6 g/dl (12-18); Blood O2 Saturation 89.9 % (92-98.5)
[2024-04-14] MEDS: CEFTRIAXONE 1,000 MG in NA CHLORIDE 0.9% 50 ML IVPB SCH (20:54)
[2024-04-15 07:43] LABS: Absolute Lymphocytes (CBC) 0.2 K/uL (0.7-4.9); Absolute Monocytes 0.8 K/uL (0.1-1.3); Absolute Neutrophil 9.5 K/uL (1.8-8.0); Basophils % 0.1 % (0-1.3); Hematocrit 31.6 % (39.6-49.0); Hemoglobin 9.8 g/dL (13.6-17.9); Lymphocytes % 1.5 % (15.3-44.8); MCH 25.3 pg (27.0-35.0); MCHC 31.1 g/dL (32.0-36.0); MCV 81.5 fL (80-100); MPV 7.6 fL (7.6-11.3); Monocytes % 7.8 % (3.3-12.3); Neutrophils % 90.6 % (41.7-73.7); Nucleated Red Blood Cells % 0.1 % (0-0); Platelets 212 thou/uL (152-406); RBC Red Blood Cell Count 3.88 M/uL (4.33-5.43); Red Cell Distribution Width 17.1 % (12.1-15.2)
[2024-04-15 07:59] LABS: Anion Gap 3.3 mEq/L (5.0-15.0); BUN Blood Urea Nitrogen 26 mg/dL (7-18); Glomerular Filtration Rate 97 ml/min (=/>90); Glucose Level 226 mg/dL (74-106); Potassium 4.3 mEq/L (3.5-5.1); Sodium Level 139 mEq/L (136-145)
[2024-04-15 08:00] LABS: Bicarbonate > 45 mEq/L (21-32)
--- NOTE | 2024-04-15 10:41 | P.CNS ---
Date of Consult: 04/15/24 Reason for Consult: COPD exacerbation bacteremia Chief Complaint: SOB History of Present Illness: Patient is 69 years of age with a history of terminal COPD frequent recurrent exacerbations admitted complaining of worsening dyspnea was found to have a urinary tract infection with Proteus in addition to bacteremia of cough congestion worsening respiratory distress and was compliant with his medication Allergies No Known Allergies Allergy (Verified 11/12/23 14:18) Home Medications: Amlodipine [Norvasc*] 10 mg PO DAILY 02/22/23 Spironolactone 25 mg PO DAILY 02/22/23 Roflumilast [Daliresp*] 500 mcg PO DAILY 30 Days #30 tab 05/20/23 Tamsulosin [Flomax*] 0.4 mg PO DAILY 06/29/23 Ipratropium/Albuterol Sulfate [Iprat-Albut 0.5-3(2.5) mg/3 ml] 3 ml IH Q6H PRN #120 amp 08/20/23 Montelukast [Singulair*] 10 mg PO DAILY 11/19/23 Fluticasone/Umeclidin/Vilanter [Trelegy Ellipta 100-62.5-25] 1 puff IH DAILY 02/07/24 Apixaban [Eliquis] 5 mg PO BID 02/17/24 predniSONE [Deltasone*] 10 mg PO DAILY #30 tab 03/17/24 Amiodarone HCl [Cordarone*] 200 mg PO DAILY 04/12/24 - Past Medical/Surgical History Diabetic: No -: COPD on chronic home O2/steroids -: Hypertension -: Alcohol abuse -: Hyponatremia -: Diastolic CHF -: Pneumonia -: A-fibon chronic anticoagulation -: Hernia repair -: left leg wound -: Left foot cancer removal Psychosocial/ Personal History: Patient is . He lives at home and has home health. - Family History Father Medical History: Heart disease Brother Medical History: Lung disease - Social History Smoking Status: Current every day smoker Alcohol use: No CD- Drugs: No Caffeine use: Yes Review of Systems 10-point ROS is otherwise unremarkable General: Weakness Respiratory: Cough, Shortness of Breath Physical Examination Temp Pulse Resp BP Pulse Ox 98 F 92 H 19 138/68 97 04/15/24 08:00 04/15/24 08:00 04/15/24 08:00 04/15/24 08:00 04/15/24 08:00 General: Alert, Oriented x3 Respiratory: Expiratory wheezes Cardiovascular: No edema, Regular rate/rhythm, Normal S1 S2 - Problems (1) COPD exacerbation Current Visit: No Status: Acute Plan: Patient admitted with COPD exacerbation secondary to UTI and bacteremia dose of steroids to 20 mg twice a day he has a sensitive to Rocephin patient's bicarbonate is elevated add Diamox and IV fluids (2) UTI (urinary tract infection) Current Visit: Yes Status: Acute Plan: Patient has Proteus in the urine positive blood cultures awaiting ID patient has no fever white count is normal Qualifiers: Urinary tract infection type: acute cystitis
[2024-04-15] MEDS: NA CHLORIDE 0.9% 1,000 ML IV SCH (11:14)
[2024-04-15] MEDS: acetaZOLAMIDE 250 MG TAB PO SCH (11:14)
--- NOTE | 2024-04-15 12:47 | P.PN ---
Subjective Date of Service: 04/15/24 Chief Complaint: SOB Patient was placed on BiPAP last night due to audible wheezing. No recorded fever. Patient tolerating diet. Patient mentions he has been ambulating to and from bathroom. Physical Examination - Vital Signs Temperature: 97.6 F Blood Pressure: 107/66 Pulse: 96 Respirations: 19 Pulse Ox (%): 95 - Physical Exam General: Alert, In no apparent distress, Oriented x3 HEENT: Mucous membr. moist/pink, Sclerae nonicteric Neck: Supple, JVD not distended Respiratory: Expiratory wheezes (Bilateral), Other (Decreased breath sounds bilaterally) Cardiovascular: No edema, Normal S1 S2, Irregular heart rate/rhythm Gastrointestinal: Normal bowel sounds, Soft and benign, Non-distended, No tenderness Musculoskeletal: No swelling Integumentary: No rashes, No cyanosis Neurological: Normal strength at 5/5 x4 extr - Studies Microbiology Data (last 24 hrs): 04/12/24 01:15 Clean Catch Urine [place] Count - Final >100,000 CFU/ML. 04/12/24 01:15 Clean Catch Urine - Final Proteus Mirabilis 04/11/24 23:20 Blood - Blood Aerobic Blood Culture - Final 04/11/24 23:20 Blood - Blood Blood Culture Gram Stain - Final 04/11/24 23:20 Blood - Blood Anaerobic Blood Culture - Final 04/11/24 23:20 Blood - Blood Gram Stain - Final Assessment And Plan - Current Problems (Diagnosis) (1) COPD with exacerbation Current Visit: No Status: Acute (2) Chronic respiratory failure with hypoxia and hypercapnia Current Visit: No Status: Acute (3) Chronic diastolic heart failure Current Visit: No Status: Chronic (4) Hypertension Current Visit: No Status: Chronic Qualifiers: - Plan Acute hypoxic and hypercapnic respiratory failure COPD exacerbation ABG shows CO2 retention-higher than baseline Continue scheduled nebs BiPAP as needed IV steroid transition to oral prednisone Wean oxygen down to a target oxygen saturation of 90 to 92% Pulmonary input appreciated. Patient started on Diamox. Continue Aldactone. Acute on chronic diastolic CHF Patient appears compensated for CHF Patient started on Diamox given metabolic alkalosis. Oxygen supplementation Continue Aldactone. Gram-positive bacteremia 2 blood culture bottles are growing alpha hemolytic strep. This is probably a skin contaminant Repeat blood culture still indicated gram-positive cocci in chains. Continue IV Rocephin Follow-up blood culture results. UTI Urine cultures growing Proteus sensitive to Rocephin. Continue IV Rocephin Hypertension Atrial fibrillation Continue home medications-amiodarone and Eliquis Tobacco abuse Smoking cessation advised. GI/DVT prophylaxis: On Eliquis Advanced directive: full code
[2024-04-15] MEDS: predniSONE 20 MG TAB PO SCH (20:24)
[2024-04-16 06:38] LABS: Absolute Lymphocytes (CBC) 0.4 K/uL (0.7-4.9); Basophils % 0.2 % (0-1.3); Hematocrit 32.5 % (39.6-49.0); Hemoglobin 9.9 g/dL (13.6-17.9); Lymphocytes % 3.7 % (15.3-44.8); MCH 24.9 pg (27.0-35.0); MCHC 30.5 g/dL (32.0-36.0); MCV 81.7 fL (80-100); MPV 7.4 fL (7.6-11.3); Monocytes % 9.6 % (3.3-12.3); Neutrophils % 86.5 % (41.7-73.7); Platelets 220 thou/uL (152-406); RBC Red Blood Cell Count 3.98 M/uL (4.33-5.43); Red Cell Distribution Width 16.9 % (12.1-15.2)
[2024-04-16 06:56] LABS: Anion Gap 4.9 mEq/L (5.0-15.0); Potassium 4.9 mEq/L (3.5-5.1)
--- NOTE | 2024-04-16 13:01 | P.PN ---
Subjective Date of Service: 04/16/24 Chief Complaint: SOB Patient has no new complaint. No recorded fever. Patient tolerating diet. No issues overnight Physical Examination - Vital Signs Temperature: 97.5 F Blood Pressure: 149/69 Pulse: 93 Respirations: 22 Pulse Ox (%): 97 - Studies Microbiology Data (last 24 hrs): 04/12/24 01:15 Clean Catch Urine [place] Count - Final >100,000 CFU/ML. 04/12/24 01:15 Clean Catch Urine - Final Proteus Mirabilis 04/11/24 23:20 Blood - Blood Aerobic Blood Culture - Final 04/11/24 23:20 Blood - Blood Blood Culture Gram Stain - Final 04/11/24 23:20 Blood - Blood Anaerobic Blood Culture - Final 04/11/24 23:20 Blood - Blood Gram Stain - Final Assessment And Plan - Current Problems (Diagnosis) (1) COPD with exacerbation Current Visit: No Status: Acute (2) Chronic respiratory failure with hypoxia and hypercapnia Current Visit: No Status: Acute (3) Chronic diastolic heart failure Current Visit: No Status: Chronic (4) Hypertension Current Visit: No Status: Chronic Qualifiers: - Plan Acute hypoxic and hypercapnic respiratory failure COPD exacerbation Clinically improved Continue scheduled nebs BiPAP as needed IV steroid transition to oral prednisone. Continue oral prednisone Wean oxygen down to a target oxygen saturation of 90 to 92% Pulmonary is following Continue Diamox and Aldactone Acute on chronic diastolic CHF Patient appears compensated for CHF Patient started on Diamox given metabolic alkalosis. Oxygen supplementation Continue Aldactone. Gram-positive bacteremia 2 blood culture bottles are growing alpha hemolytic strep. Repeat blood culture still indicated gram-positive cocci in chains. Continue IV Rocephin. Follow-up blood culture for organism identification and sensitivity. Considering midline for a total of 2 weeks of IV antibiotics. UTI Urine cultures growing Proteus sensitive to Rocephin. Continue IV Rocephin Hypertension Atrial fibrillation Continue home medications-amiodarone and Eliquis Tobacco abuse Smoking cessation advised. GI/DVT prophylaxis: On Eliquis Advanced directive: full code
[2024-04-16] MEDS: MORPHINE 4 MG/ML SYR IV ONE (13:57)
[2024-04-17] MEDS: ACETAMINOPHEN 325 MG TABLET PO PRN (02:34)
[2024-04-17] MEDS: ALBUTEROL 2.5 MG/3 ML NEB SOL NEB PRN (13:08)
--- NOTE | 2024-04-17 15:04 | P.PN ---
Subjective Date of Service: 04/17/24 Chief Complaint: SOB Patient has no new complaint. No recorded fever. No issues overnight. Patient denies shortness of breath. Physical Examination - Vital Signs Temperature: 97.5 F Blood Pressure: 116/67 Pulse: 81 Respirations: 12 Pulse Ox (%): 98 - Physical Exam General: Alert, In no apparent distress, Oriented x3 HEENT: Mucous membr. moist/pink Neck: Supple, JVD not distended Respiratory: Clear to auscultation bilaterally, Normal air movement Cardiovascular: No edema, Normal S1 S2, Irregular heart rate/rhythm Gastrointestinal: Soft and benign, Non-distended, No tenderness Musculoskeletal: No swelling Integumentary: No rashes, No cyanosis Neurological: Normal strength at 5/5 x4 extr - Studies Microbiology Data (last 24 hrs): 04/11/24 23:30 Blood - Blood Aerobic Blood Culture - Final No growth in 5 days. 04/11/24 23:30 Blood - Blood Anaerobic Blood Culture - Final No growth in 5 days. Assessment And Plan - Current Problems (Diagnosis) (1) COPD with exacerbation Current Visit: No Status: Acute (2) Chronic respiratory failure with hypoxia and hypercapnia Current Visit: No Status: Acute (3) Chronic diastolic heart failure Current Visit: No Status: Chronic (4) Hypertension Current Visit: No Status: Chronic Qualifiers: - Plan Acute hypoxic and hypercapnic respiratory failure COPD exacerbation Clinically improved Continue scheduled nebs BiPAP as needed IV steroid transition to oral prednisone. Continue oral prednisone Wean oxygen down to a target oxygen saturation of 90 to 92% Pulmonary is following Continue Diamox and Aldactone Acute on chronic diastolic CHF Patient appears compensated for CHF Patient started on Diamox given metabolic alkalosis. Oxygen supplementation Continue Aldactone. Streptococcus mitis bacteremia 2 blood culture bottles are growing Streptococcus mitis. Continue IV Rocephin. Midline placed for outpatient IV antibiotics Repeat blood culture today. Obtain TTE to assess for endocarditis. UTI Urine cultures grew Proteus sensitive to Rocephin. Continue IV Rocephin Hypertension Atrial fibrillation Continue home medications-amiodarone and Eliquis Tobacco abuse Smoking cessation advised. GI/DVT prophylaxis: On Eliquis Advanced directive: full code
--- NOTE | 2024-04-18 07:09 | P.PN ---
Date of Service: 04/18/24 Subjective: feels about the same as yesterday nothing worse ROS: 10 point ROS as noted above, otherwise negative Physical Exam: GEN: Alert, oriented HEENT: Normal conjunctiva, sclera anicteric CV: Regular rate and rhythm, no edema Pulm: Nonlabored respirations on 3L NC, shallow ABD: Soft, nontender, nondistended vitals reviewed Problem List: Acute hypoxic and hypercapnic respiratory failure; multifactorial Acute on chronic COPD exacerbation (on home O2 / chronic steroids) Acute on chronic diastolic CHF Streptococcus mitis bacteremia UTI Hypertension chronic A-fib on anticoagulation BPH Tobacco abuse Acute on chronic hypoxic/hypercapnic respiratory failure; multifactorial Acute on chronic COPD exacerbation (on home O2 / chronic steroids) hypoxia/hypercapnia mutlifactorial etiology secondary to COPD/CHF exacerbations further complicated by strep bacteremia/UTI IV steroid transition to oral prednisone (04/15) Continue prednisone, daliresp, diamox and Aldactone Continue scheduled nebs BiPAP as needed Pulmonary is following Clinically improved. Acute on chronic diastolic CHF Patient appears compensated for CHF Diamox started 04/15 given metabolic alkalosis. Continue Aldactone Streptococcus mitis bacteremia Blood cx (04/14): Streptococcus mitis in 4/4 bottles repeat blood cx (04/17): pending Continue IV Rocephin for now (04/14-) Midline placed for outpatient IV antibiotics MARCK ordered, r/o endocarditis ID consulted UTI urine cx (04/12): Proteus mirabilis Continue IV Rocephin (04/14-) ID consult Hypertension chronic A-fib on anticoagulation Continue home amiodarone, amlodipine, Eliquis BPH continue home flomax Tobacco abuse cessation advised VTE: home eliquis Code: Full Dispo: Home with HH vs SNF pending ID recs, echo results Time Spent Managing Pts Care (In Minutes): 41
[2024-04-18 07:27] LABS: Absolute Lymphocytes (CBC) 0.5 K/uL (0.7-4.9); Absolute Monocytes 0.6 K/uL (0.1-1.3); Absolute Neutrophil 8.7 K/uL (1.8-8.0); Basophils % 0.2 % (0-1.3); Eosinophils % 0.3 % (0-4.4); Hematocrit 31.9 % (39.6-49.0); Hemoglobin 9.8 g/dL (13.6-17.9); Lymphocytes % 4.6 % (15.3-44.8); MCHC 30.8 g/dL (32.0-36.0); MCV 81.1 fL (80-100); MPV 6.7 fL (7.6-11.3); Monocytes % 6.5 % (3.3-12.3); Neutrophils % 88.4 % (41.7-73.7); Platelets 221 thou/uL (152-406); RBC Red Blood Cell Count 3.93 M/uL (4.33-5.43); Red Cell Distribution Width 16.8 % (12.1-15.2)
[2024-04-18 07:46] LABS: Anion Gap 2.9 mEq/L (5.0-15.0); Potassium 4.9 mEq/L (3.5-5.1)
[2024-04-18 09:12] LABS: Band Neutrophils 1 % (0-1); Blood Morphology Comment NOT SEEN (NOT SEEN); Differential Total Cells Count 100; Lymphocytes 2 % (15-42); Monocytes 3 % (0-10); Platelet Estimate ADEQ; Segmented Neutrophils 94 % (40-80)
--- NOTE | 2024-04-18 11:53 | P.CNS ---
Date of Consult: 04/18/24 Reason for Consult: Bacteremia Requesting Physician: Chandler Nielsen Chief Complaint: SOB History of Present Illness: This is a 69-year-old male with significant past medical history of atrial fibrillation, congestive heart failure, COPD, seizure disorder, hypertension coming in with shortness of breath of 2 days prior to admission patient uses home oxygen. He also has a longstanding history of tobacco use and still smokes half pack per day patient has poor dentition with a dental cavities. At this time he is growing Streptococcus mitis and blood cultures which she grew in the past admissions also. Patient denies any headache nausea vomiting chest pain abdominal pain constipation diarrhea. Patient was initially admitted for COPD exacerbation chest x-ray is negative Allergies No Known Allergies Allergy (Verified 11/12/23 14:18) Home medications list reviewed: Yes Home Medications: Amlodipine [Norvasc*] 10 mg PO DAILY 02/22/23 Spironolactone 25 mg PO DAILY 02/22/23 Roflumilast [Daliresp*] 500 mcg PO DAILY 30 Days #30 tab 05/20/23 Tamsulosin [Flomax*] 0.4 mg PO DAILY 06/29/23 Ipratropium/Albuterol Sulfate [Iprat-Albut 0.5-3(2.5) mg/3 ml] 3 ml IH Q6H PRN #120 amp 08/20/23 Montelukast [Singulair*] 10 mg PO DAILY 11/19/23 Fluticasone/Umeclidin/Vilanter [Trelegy Ellipta 100-62.5-25] 1 puff IH DAILY 02/07/24 Apixaban [Eliquis] 5 mg PO BID 02/17/24 predniSONE [Deltasone*] 10 mg PO DAILY #30 tab 03/17/24 Amiodarone HCl [Cordarone*] 200 mg PO DAILY 04/12/24 - Past Medical/Surgical History Diabetic: No -: COPD on chronic home O2/steroids -: Hypertension -: Alcohol abuse -: Hyponatremia -: Diastolic CHF -: Pneumonia -: A-fibon chronic anticoagulation -: Hernia repair -: left leg wound -: Left foot cancer removal Psychosocial/ Personal History: Patient is . He lives at home and has home health. - Family History Father Medical History: Heart disease Brother Medical History: Lung disease - Social History Smoking Status: Current every day smoker, Heavy Tobacco smoker (>10 cigarettes/day) Counseled patient to stop smoking for: less than 10 minutes Alcohol use: No CD- Drugs: No Caffeine use: Yes Review of Systems 10-point ROS is otherwise unremarkable Physical Examination Temp Pulse Resp BP Pulse Ox 97.0 F 84 23 H 117/68 97 04/18/24 08:00 04/18/24 08:00 04/18/24 08:00 04/18/24 08:00 04/18/24 08:00 General: Alert, In no apparent distress HEENT: Atraumatic, Normocephalic, Other Neck: Supple, Without JVD or thyroid abnormality Respiratory: Crackles/rales Cardiovascular: No edema, Normal pulses, Normal S1 S2 Gastrointestinal: Normal bowel sounds, No tenderness, No masses Musculoskeletal: No clubbing, No swelling Integumentary: No rashes, No breakdown, No significant lesion Neurological: Normal speech - Problems (1) UTI (urinary tract infection) Current Visit: Yes Status: Acute Qualifiers: Urinary tract infection type: acute cystitis (2) Bacteremia Current Visit: Yes Status: Acute Conclusions/Impression: 69-year-old male with multiple medical problems and dental cavities coming in with bacteremia and urinary tract infection secondary to Streptococcus mitis. Will recommend to continue antibiotic for 2 weeks if MARCK is negative for endocarditis. Also recommend to see a dentition for dental cavities Time Spent Managing Pts care (In Minutes): 30
--- NOTE | 2024-04-18 12:09 | P.PN ---
Subjective Date of Service: 04/18/24 Chief Complaint: COPD exacerbation bacteremia Subjective: Improving (Patient is improving doing better still short of breath) Review of Systems General: Weakness Physical Examination - Vital Signs Temperature: 97.0 F Blood Pressure: 117/68 Pulse: 84 Respirations: 23 Pulse Ox (%): 97 - Physical Exam General: Alert, Oriented x3 Respiratory: Expiratory wheezes Cardiovascular: No edema, Regular rate/rhythm Assessment And Plan - Current Problems (Diagnosis) (1) COPD exacerbation Current Visit: No Status: Acute Plan: Doing better no change in treatment (2) UTI (urinary tract infection) Current Visit: Yes Status: Acute Plan: Doing well on IV antibiotic Qualifiers: Urinary tract infection type: acute cystitis (3) Bacteremia Current Visit: Yes Status: Acute Plan: Patient's blood cultures are positive with Streptococcus mitis which is an oral anaerobe with MARCK to rule out endocarditis at home on 2 weeks of Rocephin Proteus in the urine is also sensitive to Rocephin
[2024-04-18] MEDS: predniSONE 10 MG TAB PO SCH (20:34)
[2024-04-19 05:13] LABS: Hematocrit 33.7 % (39.6-49.0); Hemoglobin 10.5 g/dL (13.6-17.9); MCH 25.1 pg (27.0-35.0); MCHC 31.1 g/dL (32.0-36.0); MCV 80.9 fL (80-100); MPV 7.1 fL (7.6-11.3); Platelets 252 thou/uL (152-406); RBC Red Blood Cell Count 4.16 M/uL (4.33-5.43); Red Cell Distribution Width 16.9 % (12.1-15.2)
[2024-04-19 05:18] LABS: Anion Gap 4.1 mEq/L (5.0-15.0); Magnesium 2.1 mg/dL (1.6-2.4); Potassium 4.1 mEq/L (3.5-5.1)
[2024-04-19] MEDS: NA CHLORIDE 0.9% 500 ML ONE (07:16)
--- NOTE | 2024-04-19 07:17 | ECHO ---
HEIGHT: 5 ft 11 in WEIGHT: 191 lb 0 oz DATE OF STUDY: 04/18/[address]: Timoteo Fischer MD 2-DIMENSIONAL: YES M.MODE: YES DOPPLER: YES COLOR FLOW: YES TDS: PORTABLE: YES DEFINITY: BUBBLE STUDY: DIAGNOSIS: BACTEREMIA, RULE OUT ENDOCARDITIS CARDIAC HISTORY: CATHERIZATION: NO SURGERY: NO PROSTHETIC VALVE: NO PACEMAKER: NO MEASUREMENTS (cm) DIASTOLIC (NORMALS) SYSTOLIC (NORMALS) IVSd 1.1 (0.6-1.2) LA Diam 2.7 (1.9-4.0) LVEF 60-65% LVIDd 4.4 (3.5-5.7) LVIDs 3.2 (2.0-3.5) %FS 27% LVPWd 1.3 (0.6-1.2) Ao Diam 3.7 (2.0-3.7) 2 DIMENSIONAL ASSESSMENT: RIGHT ATRIUM: NORMAL LEFT ATRIUM: NORMAL RIGHT VENTRICLE: NORMAL LEFT VENTRICLE: NORMAL TRICUSPID VALVE: TRACE TRICUSPID REGURGITATION MITRAL VALVE: NORMAL PULMONIC VALVE: NORMAL AORTIC VALVE: CALCIFIED PERICARDIAL EFFUSION: NONE AORTIC ROOT: NORMAL LEFT VENTRICULAR WALL MOTION: NORMAL DOPPLER/COLOR FLOW: GRADE I DIASTOLIC DYSFUNCTION COMMENTS: 1. NORMAL LEFT VENTRICULAR SYSTOLIC FUNCTION, EJECTION FRACTION 60-65%, NORMAL WALL MOTION 2. GRADE I DIASTOLIC DYSFUNCTION 3. CALCIFIED RIGHT CORONARY LEAFLET AORTIC VALVE (NO VEGETATION SEEN) TECHNOLOGIST: HAKEEM CHAPARRO
[2024-04-19] MEDS ORDERED: propofoL 200 MG/20 ML VIAL IV ONE (07:21)
[2024-04-19] MEDS ORDERED: LIDOCAINE 1% MPF 5 ML VIAL ONE (07:21)
--- NOTE | 2024-04-19 11:29 | P.PN ---
Date of Service: 04/19/24 Subjective: had MARCK with Dr. Leonard this morning which noted vegetation Initiate transfer to tertiary level of care facility [facility] per Dr. Leonard afebrile ROS: 10 point ROS as noted above, otherwise negative Physical Exam: GEN: Alert, oriented HEENT: Normal conjunctiva, sclera anicteric CV: Regular rate and rhythm, no edema Pulm: Nonlabored respirations on 3L NC, shallow ABD: Soft, nontender, nondistended vitals reviewed Problem List: Streptococcus mitis bacteremia Concern for Endocarditis Acute hypoxic and hypercapnic respiratory failure; multifactorial Acute on chronic COPD exacerbation (on home O2 / chronic steroids) Acute on chronic diastolic CHF UTI Hypertension chronic A-fib on anticoagulation BPH Tobacco abuse Streptococcus mitis bacteremia Concern for Endocarditis Blood cx (04/14): Streptococcus mitis in 4/4 bottles repeat blood cx (04/17): pending Continue IV Rocephin for now (04/14-) Midline placed for outpatient IV antibiotics, but given concern for en docarditis, will likely need PICC s/p MARCK (04/19): pending final report but prelim noted AoV vegetation Initiated transfer to [facility]. (04/19) ID consulted Acute on chronic hypoxic/hypercapnic respiratory failure; multifactorial Acute on chronic COPD exacerbation (on home O2 / chronic steroids) hypoxia/hypercapnia mutlifactorial etiology secondary to COPD/CHF exacerbations further complicated by strep bacteremia/UTI IV steroid transition to oral prednisone (04/15) Continue prednisone, daliresp, diamox and Aldactone Continue scheduled nebs Pulmonary is following Clinically improved. Acute on chronic diastolic CHF Patient appears compensated for CHF Diamox started 04/15 given metabolic alkalosis. Continue Aldactone UTI urine cx (04/12): Proteus mirabilis Continue IV Rocephin (04/14-) ID following Hypertension chronic A-fib on anticoagulation Continue home amiodarone, amlodipine, Eliquis BPH continue home flomax Tobacco abuse cessation advised VTE: home eliquis Code: Full Dispo: Transfer initiated to [facility] had MARCK with Dr. Leonard this morning which noted AoV vegetation. Initiated transfer to [facility] - tertiary level of care facility 04/19 Time Spent Managing Pts Care (In Minutes): 41
--- NOTE | 2024-04-19 12:53 | PN ---
Subjective: Patient lying in bed. No new acute event. Denies any headache, nausea, vomiting, chest pain, abdominal pain, constipation, or diarrhea. His lungs are slightly congested. Objective: Vital Signs: Temperature 98, pulse 96, respirations 16, blood pressure 111/53. HEENT: Unremarkable. Neck: Supple. Lungs: Basal crackles. Heart: S1, S2. Regular. Abdomen: Soft, nontender. Bowel sounds present. Extremity: No edema. Laboratory Data: WBC 11.8, hemoglobin 10.5, platelets are 252. MARCK showed calcification and possibl e vegetation. 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 2.Dental cavities. 3.Leukocytosis. 4.Anemia of chronic disease. 5.Chronic obstructive pulmonary disease. Continue IV antibiotic Rocephin 2 g q.12 hours. We will follow the patient as needed. Consider long -term acute care. Antibiotic for 6 weeks. Continue current treatment. NF/MODL Voice ID: [id number] Report ID: [id number]
--- NOTE | 2024-04-19 13:59 | TEE ---
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 LARGE ECHOGENIC MASS SEEN ATTACHED TO THE RIGHT CORONARY CUSP OF AORTIC VALVE MEASURING (1.0 CENTIMETERS BY 0.7 CENTIMETERS) WAS SEEN, MOST LIKELY REPRESENTING A VEGETATION 2. MILD AORTIC REGURGITATION 3. NORMAL MITRAL VALVE/ TRICUSPID VALVE TECHNOLOGIST: GORAN DE ANDA
--- NOTE | 2024-04-19 17:40 | P.CNS ---
Date of Consult: 04/19/24 Chief Complaint: COPD exacerbation bacteremia History of Present Illness: Patient with PMH of atrial fibrillation, diastolic heart failure presented with SOB, work up shown that he has bactermia with persistent positive blood cultures so MARCK was ordered and done today, denies chest pain, no syncope. Allergies No Known Allergies Allergy (Verified 11/12/23 14:18) Home medications list reviewed: Yes Home Medications: Amlodipine [Norvasc*] 10 mg PO DAILY 02/22/23 Spironolactone 25 mg PO DAILY 02/22/23 Roflumilast [Daliresp*] 500 mcg PO DAILY 30 Days #30 tab 05/20/23 Tamsulosin [Flomax*] 0.4 mg PO DAILY 06/29/23 Ipratropium/Albuterol Sulfate [Iprat-Albut 0.5-3(2.5) mg/3 ml] 3 ml IH Q6H PRN #120 amp 08/20/23 Montelukast [Singulair*] 10 mg PO DAILY 11/19/23 Fluticasone/Umeclidin/Vilanter [Trelegy Ellipta 100-62.5-25] 1 puff IH DAILY 02/07/24 Apixaban [Eliquis] 5 mg PO BID 02/17/24 predniSONE [Deltasone*] 10 mg PO DAILY #30 tab 03/17/24 Amiodarone HCl [Cordarone*] 200 mg PO DAILY 04/12/24 - Past Medical/Surgical History Diabetic: No -: COPD on chronic home O2/steroids -: Hypertension -: Alcohol abuse -: Hyponatremia -: Diastolic CHF -: Pneumonia -: A-fibon chronic anticoagulation -: Hernia repair -: left leg wound -: Left foot cancer removal Psychosocial/ Personal History: Patient is . He lives at home and has home health. - Family History Father Medical History: Heart disease Brother Medical History: Lung disease - Social History Smoking Status: Current every day smoker, Heavy Tobacco smoker (>10 cigarettes/day) Alcohol use: No CD- Drugs: No Caffeine use: Yes Review of Systems 10-point ROS is otherwise unremarkable Physical Examination Temp Pulse Resp BP Pulse Ox 97.5 F 95 H 20 121/67 97 04/19/24 12:00 04/19/24 12:00 04/19/24 12:00 04/19/24 12:00 04/19/24 12:00 General: Alert, In no apparent distress HEENT: Atraumatic, PERRLA, Mucous membr. moist/pink, EOMI, Sclerae nonicteric Neck: Supple, 2+ carotid pulse no bruit, No LAD, Without JVD or thyroid abnormality Respiratory: Clear to auscultation bilaterally, Normal air movement Cardiovascular: Regular rate/rhythm, Normal S1 S2 Gastrointestinal: Normal bowel sounds, No tenderness Musculoskeletal: No tenderness Integumentary: No rashes Neurological: Normal gait, Normal speech, Normal tone, Normal affect Lymphatics: No axilla or inguinal lymphadenopathy - Problems (1) Endocarditis Current Visit: Yes Status: Acute Plan: MARCK done today and shows possible vegetation on aortic valve, the valve function still good with mild AR. recommend continuation of IV abx for extended course ID consult also recommend transfer for higher level of care center where there is CT surgery to evaluate for possible valve replacement. (2) Atrial fibrillation Current Visit: No Status: Acute Plan: continue Amiodarone 200 mg po BID Stop Eliquis and switch to heparin drip, just incase patient need surgery. (3) Congestive heart failure Current Visit: No Status: Chronic Plan: diastolic, NYHA 2, Stage B, currently euvolemic on exam continue aldactone, diamox. Qualifiers: Heart failure type: diastolic Heart failure chronicity: chronic Qualified Code(s): I50.32 - Chronic diastolic (congestive) heart failure
[2024-04-19 20:46] VITALS: O2SAT 94
[2024-04-19 20:48] VITALS: BP 116/65; TEMP 97.7
--- NOTE | 2024-04-20 20:00 | OP ---
Date of Procedure: 04/19/2024 Surgeon: Willie Leonard Procedure Performed: Transesophageal echocardiogram. Indication For Procedure: Suspected endocarditis. Complications: None. Estimated Blood Loss: None. Sedation: Done by Anesthesia team. Description Of Procedure: After risks, and benefits, and alternatives were explained to the patient, patient agreed to proceed with the procedure and signed informed consent. Patient was brought back to the OR. A time-out was performed. Sedation was administered. MARCK probe was inserted. Images we re obtained and then MARCK probe was out. The patient was moved back to recovery in stable condition. Assessment And Plan: Successful transesophageal echocardiogram was done with a possible vegetation t hat is seen on the aortic valve and please refer to echo report for full details. ROSY/NORA Voice ID: [id number] Report ID: [id number]
--- NOTE | 2024-04-21 09:38 | P.DS ---
Admission Date: 04/12/24 Discharge Date: 04/19/24 Disposition: TRANSFER TO [facility] Discharge Condition: FAIR Reason for Admission: COPD exacerbation bacteremia Consultations: Cardiology - Dr. Horacio YOUNGBLOOD - Dr. Vera Pulmonology - Dr. Holt Brief History of Present Illness: 69 yo M, PMH: atrial fibrillation, CHF, COPD, seizures hypertension, pneumonia Patient was brought to ER with shortness of breath. Has been going on for the last 2 days and has been progressively getting worse. Denies any chest pain. No fever or chills. Associated with cough which is nonproductive. Shortness of breath worse with movements and minimal exertions. Denies any nausea vomiting or diarrhea. Patient was assessed in the ER and is admitted for further management of COPD exacerbation Hospital Course: Problem List: Streptococcus mitis bacteremia Concern for Endocarditis Acute hypoxic and hypercapnic respiratory failure; multifactorial Acute on chronic COPD exacerbation (on home O2 / chronic steroids) Acute on chronic diastolic CHF UTI Hypertension chronic A-fib on anticoagulation BPH Tobacco abuse Physical Exam: GEN: Alert, oriented HEENT: Normal conjunctiva, sclera anicteric CV: Regular rate and rhythm, no edema Pulm: Nonlabored respirations on 3L NC, shallow ABD: Soft, nontender, nondistended Vital Signs/Physical Exam: Temp Pulse Resp BP Pulse Ox 97.7 F 86 21 H 116/65 94 04/19/24 20:00 04/19/24 20:44 04/19/24 20:00 04/19/24 20:00 04/19/24 20:44 Laboratory Data at Discharge: WBC 11.80 thou/uL (4.3-10.9) H 04/19/24 04:58 Hgb 10.5 g/dL (13.6-17.9) L 04/19/24 04:58 Hct 33.7 % (39.6-49.0) L 04/19/24 04:58 Plt Count 252 thou/uL (152-406) 04/19/24 04:58 PT 11.1 SECONDS (9.4-12.5) 04/11/24 23:20 INR 0.99 04/11/24 23:20 Sodium 140 mEq/L (136-145) 04/19/24 04:58 Potassium 4.1 mEq/L (3.5-5.1) D 04/19/24 04:58 BUN 31 mg/dL (7-18) H 04/19/24 04:58 Creatinine 1.03 mg/dL (0.70-1.30) 04/19/24 04:58 Glucose 132 mg/dL (74-106) H 04/19/24 04:58 Magnesium 2.1 mg/dL (1.6-2.4) 04/19/24 04:58 Total Bilirubin 0.2 mg/dL (0.2-1.0) 04/13/24 04:11 AST < 10 U/L (15-37) L 04/13/24 04:11 ALT 18 U/L (16-61) 04/13/24 04:11 Alkaline Phosphatase 53 U/L (45-117) 04/13/24 04:11 Home Medications: Amlodipine [Norvasc*] 10 mg PO DAILY 02/22/23 Spironolactone 25 mg PO DAILY 02/22/23 Roflumilast [Daliresp*] 500 mcg PO DAILY 30 Days #30 tab 05/20/23 Tamsulosin [Flomax*] 0.4 mg PO DAILY 06/29/23 Ipratropium/Albuterol Sulfate [Iprat-Albut 0.5-3(2.5) mg/3 ml] 3 ml IH Q6H PRN #120 amp 08/20/23 Montelukast [Singulair*] 10 mg PO DAILY 11/19/23 Fluticasone/Umeclidin/Vilanter [Trelegy Ellipta 100-62.5-25] 1 puff IH DAILY 02/07/24 Apixaban [Eliquis] 5 mg PO BID 02/17/24 predniSONE [Deltasone*] 10 mg PO DAILY #30 tab 03/17/24 Amiodarone HCl [Cordarone*] 200 mg PO DAILY 04/12/24 Physician Discharge Instructions: Patient presented with worsening shortness of breath, cough, secondary to acute on chronic COPD and CHF exacerbations. Chest xray on admission noted bilateral atelectasis otherwise negative. Pulmono logy was consulted. He was given steroids, daliresp, diamox, and aldactone in addition to his home meds / inhalers and had improvement of his symptoms. During his hospitalization Followup: NONE,NONE [Primary Care Provider] - Time spent managing pt's care (in minutes): 45
== END 2024-04-19 22:45 | disposition short-term general hospital (02) | DRG 871 ==
LOC: ER 22:31 → ERHOLD 04-12 01:30 → 2ND 04-12 15:19
PROVIDERS: ADMIT Family Medicine; ATTEND Hospitalist
PROC: 4A033R1 Measurement of Arterial Saturation, Peripheral, Percutaneous Approach (ICD-10-PCS; principal; 2024-04-12)
PROC: 5A09557 Assistance with Respiratory Ventilation, Greater than 96 Consecutive Hours, Continuous Positive Airway Pressure (ICD-10-PCS; 2024-04-15)
PROC: 02HV33Z Insertion of Infusion Device into Superior Vena Cava, Percutaneous Approach (ICD-10-PCS; 2024-04-16)
PROC: B24BZZ4 Ultrasonography of Heart with Aorta, Transesophageal (ICD-10-PCS; 2024-04-19)
DX: A41.59 Other Gram-negative sepsis (principal); I33.0 Acute and subacute infective endocarditis; I50.33 Acute on chronic diastolic (congestive) heart failure; J96.01 Acute respiratory failure with hypoxia; J96.02 Acute respiratory failure with hypercapnia; J44.1 Chronic obstructive pulmonary disease with (acute) exacerbation; N30.00 Acute cystitis without hematuria; E87.3 Alkalosis; I11.0 Hypertensive heart disease with heart failure; I48.91 Unspecified atrial fibrillation; K02.9 Dental caries, unspecified; K52.9 Noninfective gastroenteritis and colitis, unspecified; D63.8 Anemia in other chronic diseases classified elsewhere; F17.210 Nicotine dependence, cigarettes, uncomplicated; B95.5 Unspecified streptococcus as the cause of diseases classified elsewhere; Z63.5 Disruption of family by separation and divorce; Z99.81 Dependence on supplemental oxygen; Z11.52 Encounter for screening for COVID-19; Z79.01 Long term (current) use of anticoagulants; Z79.52 Long term (current) use of systemic steroids; Z79.899 Other long term (current) drug therapy
CPT/HCPCS: 36415; 36600; 71045; 80048; 80053; 80076; 81001; 82550; 82805; 83605; 83735; 83880; 84484; 85025; 85027; 85610; 87040; 87077; 87086; 87088; 87186; 87205; 87804; 87811; 93005; 93306; 93312; 94640; 94660; 94760; 96365; 96375; 99285; J0696; J1650; J1940; J2001; J2704; J2919; J7030; J7040; J7512; J7613; J7614; J7644

== ENCOUNTER 2024-06-14 16:10 | Inpatient (IN) | payer OTHER, BC ==
[2024-06-14] MEDS ORDERED: LEVALBUTEROL 1.25 MG/3 ML NEB ONE (16:19)
[2024-06-14 16:48] LABS: Absolute Monocytes 0.4 K/uL (0.1-1.3); Absolute Neutrophil 4.9 K/uL (1.8-8.0); Basophils % 0.7 % (0-1.3); Eosinophils % 0.3 % (0-4.4); Hematocrit 26.3 % (39.6-49.0); Hemoglobin 7.9 g/dL (13.6-17.9); MCH 23.2 pg (27.0-35.0); MCHC 29.9 g/dL (32.0-36.0); MCV 77.7 fL (80-100); MPV 8.3 fL (7.6-11.3); Monocytes % 6.6 % (3.3-12.3); Neutrophils % 77.4 % (41.7-73.7); Platelets 268 thou/uL (152-406); RBC Red Blood Cell Count 3.38 M/uL (4.33-5.43); Red Cell Distribution Width 16.9 % (12.1-15.2)
[2024-06-14 16:49] LABS: PT Prothrombin Time 18.2 SECONDS (9.4-12.5); PTT, Activated Partial Thromb 40.7 SECONDS (24.3-36.9); Protime INR 1.65
[2024-06-14 17:04] LABS: Albumin 3.1 g/dL (3.4-5.0); Alkaline Phosphatase 66 U/L (45-117); BUN Blood Urea Nitrogen 11 mg/dL (7-18); Bicarbonate 36 mEq/L (21-32); Bilirubin Total 0.3 mg/dL (0.2-1.0); Glomerular Filtration Rate 95 ml/min (=/>90); Glucose Level 117 mg/dL (74-106); NT PRO-BNP 2754 pg/mL (<125); Protein, Total 6.1 g/dL (6.4-8.2); Sodium Level 139 mEq/L (136-145); Troponin High Sensitivity 11.2 pg/mL (<58.9)
[2024-06-14 17:05] LABS: ALT/SGPT < 14 U/L (16-61); AST/SGOT 18 U/L (15-37)
--- NOTE | 2024-06-14 17:12 | RAD REPORT ---
Procedure: Chest Single View HISTORY: Cough COMPARISON: March 2024 FINDINGS: Lucency right lung base. Areas of subsegmental atelectasis right lung base. Mild bilateral interstitial lung opacities No significant pleural effusion noted. The heart is mildly enlarged. IMPRESSION: Mild bilateral interstitial lung opacities may indicate mild interstitial pulmonary edema Lucency within the right lung base is favored to be areas of subsegmental atelectasis surrounded by n ormal lung aeration. Another consideration is that this represents pneumoperitoneum. If the patient's clinical symptoms to suggest this then CT abdomen would be recommended.
--- NOTE | 2024-06-14 18:29 | RAD REPORT ---
EXAM: Chest Abdomen Pelvis W Cont CLINICAL INDICATION: Chest and abdominal pain TECHNIQUE: CT chest, abdomen and pelvis was performed, with 100 cc Isovue-300 IV contrast, as per de partment protocol. Axial, sagittal and coronal reconstructions were obtained. One or more of the following dose reduction techniques were used: Automated exposure control, adjustment of the mA and/o r kV according to the patient size, and/or iterative reconstruction. Unless otherwise specified, incidental findings do not require dedicated imaging follow-up. [id number]. Oral contrast not given. This limits evaluation of the bowel. COMPARISON: None FINDINGS: Mild right lower lobe atelectasis. Mild lingular and right middle lobe opacities. Mild COPD. Small pleural effusions. No pericardial effusion. The colon abuts the right hemidiaphragm. No lung peritoneum. Liver, spleen, pancreas and adrenals unremarkable. Left kidney is absent. Right renal cysts. There is no evidence of diverticulitis Moderate right inguinal hernia contains fat. Bilateral inguinal hernia repair Small gallstone. No gallbladder wall thickening Small fatty structure lower left pelvis may represent infarcted fat. IMPRESSION: Mild lingular and right middle lobe opacities may represent pneumonia Mild right lower lobe atelectasis Mild COPD No pneumoperitoneum Cholelithiasis without evidence of cholecystitis
--- NOTE | 2024-06-14 19:04 | EDPHYS ---
Physician Documentation [facility] Name: Randolph Mckeon Age: 69 yrs Sex: Male : 1955 Arrival Date: 06/14/2024 Time: 16:10 Bed 4 Private MD: ED Physician Severo Nielsen HPI: 06/14 16:14 This 69 yrs old Male presents to ER via EMS with complaints of Shortness Of Breath. rn 16:14 The patient has shortness of breath at rest, with light activity. Onset: The rn symptoms/episode began/occurred today. Duration: The symptoms are continuous. The patient's shortness of breath is aggravated by coughing, light activity, is alleviated by nebulizer treatment, application of supplemental oxygen. Associated signs and symptoms: Pertinent positives: productive cough, Pertinent negatives: fever, hemoptysis. Severity of symptoms: At their worst the symptoms were moderate in the emergency department the symptoms are unchanged. The patient has experienced similar episodes in the past. The patient has been recently seen by a physician:. Pt reports shortness of breath that got worse this morning. Reports history of atrial fibrillation, CHF, COPD. Reports 2 days ago diagnosed with pneumonia, Levaquin. Denies any increase in swelling. States taking diuretic.. Historical: - Allergies: 16:14 No Known Allergies; bp - PMHx: 16:14 Atrial fibrillation; CHF; Chronic obstructive lung disease; COPD; Hypertension; bp Pneumonia; - PSHx: 16:14 cyst removal on lower left limb; hernia; bp - Immunization history:: Adult Immunizations up to date. - Infectious Disease History:: Denies. - Social history:: Smoking status: Patient reports the use of cigarette tobacco products, unknown amount. - Family history:: not pertinent. - Hospitalizations: : Patient was recently seen at. ROS: 16:14 Constitutional: Positive for chills Cardiovascular: Negative for chest pain, rn palpitations, and edema, Respiratory: Positive for productive cough of green and yellow sputum and shortness of breath Abdomen/GI: Negative for abdominal pain, nausea, vomiting, diarrhea, and constipation, MS/Extremity: Negative for injury and deformity, Skin: Negative for injury, rash, and discoloration, Neuro: Positive for generalized weakness and malaise Exam: 16:14 Constitutional: This is a well developed, well nourished patient who is awake, alert, rn mild tachypnea Head/Face: Normocephalic, atraumatic. ENT: Dry mucous membranes, no stridor Cardiovascular: Irregular rhythm, regular rate. Respiratory: Mild tachypnea, crackles upon inspiration and wheezing with prolonged expiratory phase Abdomen/GI: Soft, nontender MS/ Extremity: 1+ edema bilateral lower extremities. Equal circumference. No cyanosis. 16:55 ECG was reviewed by the Attending Physician. rn Vital Signs: 16:12 BP 121 / 68; Pulse 58; Resp 18; Temp 97.9; Pulse Ox 99% on 12 lpm Nebulizer Mask; bp 16:40 Pulse Ox 75% on R/A; hb 17:00 BP 125 / 53; Pulse 72; Resp 24; Pulse Ox 90% on 2 lpm NC; hb 18:04 BP 130 / 106; Pulse 69; Resp 23; Pulse Ox 91% on 2 lpm NC; hb 18:40 BP 108 / 55; Pulse 73; Resp 23; Pulse Ox 91% on 2 lpm NC; hb 19:00 BP 131 / 77; Pulse 68; Resp 18; Pulse Ox 94% on 2 lpm NC; cp4 20:00 BP 129 / 56; Pulse 67; Resp 18; Pulse Ox 94% on 2 lpm NC; cp4 21:00 BP 116 / 58; Pulse 64; Resp 18; Pulse Ox 94% ; cp4 21:50 Weight 39.28 kg; Height 5 ft. 11 in. ; kj2 21:50 Body Mass Index 12.08 (39.28 kg, 180.34 cm) kj2 MDM: 16:12 Medical Screening Exam initiated rn 19:01 Differential diagnosis: Chronic Obstructive Pulmonary Disease pneumonia, Pneumothorax rn pulmonary edema. Data reviewed: vital signs, nurses notes, lab test result(s), radiologic studies, CT scan, plain films, and as a result, I will admit patient. Consideration of Admission/Observation Patient was admitted/placed on observation. Escalation of care including admission/observation considered. Counseling: I had a detailed discussion with the patient and/or guardian regarding the historical points, exam findings, and any diagnostic results supporting the discharge/admit diagnosis, lab results, radiology results, the need for further work-up and treatment in the hospital. 06/14 16:13 Order name: Blood Culture Adult (2) rn 06/14 16:13 Order name: CBC with Diff; Complete Time: 17:07 rn 06/14 16:13 Order name: CMP; Complete Time: 17: rn 06/14 16:13 Order name: Lactate w/ 2H reflex if indic.; Complete Time: 17: rn 06/14 16:13 Order name: Protime (+inr); Complete Time: 17: rn 06/14 16:13 Order name: Ptt, Activated; Complete Time: 17: rn 06/14 16:13 Order name: BNP; Complete Time: 17: rn 06/14 16:13 Order name: Troponin High Sensitivity; Complete Time: 17: rn 06/14 16:13 Order name: Chest Single View XRAY; Complete Time: 17: rn 06/14 17:16 Order name: CT Chest, Abdomen, Pelvis - W/Contrast; Complete Time: 18:53 rn 06/14 21:00 Order name: US EDMS 06/14 16:13 Order name: Accucheck; Complete Time: 16:17 rn 06/14 16:13 Order name: Cardiac monitoring; Complete Time: 16: rn 06/14 16:13 Order name: EKG - Nurse/Tech; Complete Time: 16: rn 06/14 16:13 Order name: IV Saline Lock - Large Bore; Complete Time: 16: rn 06/14 16:13 Order name: Labs collected and sent; Complete Time: 16: rn 06/14 16:13 Order name: O2 Per Protocol; Complete Time: 16:17 rn 06/14 16:13 Order name: O2 Sat Monitoring; Complete Time: 16:16 rn 06/14 16:13 Order name: Vital Signs; Complete Time: 16:27 rn EC:55 Rate is 64 beats/min. Rhythm is regular. QRS [place] is Normal. [place] interval is prolonged rn at 226 msec. QRS interval is normal. QT interval is normal. No Q waves. T waves are Normal. No ST changes noted. Clinical impression: 1st degree heart block. Interpreted by me. Reviewed by me. Administered Medications: 16:27 Drug: Levalbuterol Inhalation 1.25 mg Inhalation once Route: Inhalation; hb 17:05 Follow up: Response: No adverse reaction hb 16:27 Drug: Levalbuterol Inhalation 1.25 mg Inhalation once Route: Inhalation; hb 17:05 Follow up: Response: No adverse reaction hb 19:23 Drug: levofloxacin IVPB 750 mg 150 ml IVPB once over 90 mins Volume: 150 ml; Route: kj2 IVPB; Infused Over: 90 mins; Site: right forearm; 22:19 Follow up: IV Status: Completed infusion; IV Intake: 150ml kj2 22:20 Follow up: Response: No adverse reaction kj2 Disposition: 19:03 Critical Care:. rn Disposition Summary: 06/14/24 19:03 Hospitalization Ordered Notes: Hospitalization Status: Inpatient Admission rn Provider: Prince Gustavo rn Location: Telemetry/[facility] (Inpatient) rn Condition: Stable rn Problem: an acute exacerbation rn Symptoms: have improved rn Bed/Room Type: Standard rn Room Assignment: 217(06/14/24 20:25) ty Diagnosis - Pneumonia, unspecified organism rn - COPD/ Chronic obstructive pulmonary disease with acute lower respiratory infection rn - Hypoxemia rn Forms: - Medication Reconciliation Form rn - SBAR form rn - Leadership Thank You Letter family law attorney time excluding procedures: 19:03 Critical care time: Bedside Care: 35 minutes. Total time: 35 minutes rn Signatures: Dispatcher [employer] EDSevero Moreira MD MD rn Baxter, Heather RN RN Sanchez Johnson RN RN Dino Wade Krystal RN RN kj2 Corrections: (The following items were deleted from the chart) 20:25 19:03 rn ty
--- NOTE | 2024-06-14 19:04 | ER ---
Nurse's Notes [facility] Name: Randolph Mckeon Age: 69 yrs Sex: Male : 1955 Arrival Date: 06/14/2024 Time: 16:10 Bed 4 Private MD: Diagnosis: Pneumonia, unspecified organism;COPD/ Chronic obstructive pulmonary disease with acute lower respiratory infection;Hypoxemia Presentation: 06/14 16:12 Chief complaint: EMS states: SHORTNESS OF BREATH AND WHEEZING AFTER SMOKING AT [facility], CHRONIC COPD. Coronavirus screen: At this time, the client does not indicate any symptoms associated with coronavirus-19. Ebola Screen: No symptoms or risks identified at this time. Initial Sepsis Screen: Does the patient meet any 2 criteria? No. Patient's initial sepsis screen is negative. Does the patient have a suspected source of infection? No. Patient's initial sepsis screen is negative. Risk Assessment: Do you want to hurt yourself or someone else? Patient reports no desire to harm self or others. Onset of symptoms is unknown. 16:12 Method Of Arrival: EMS: [facility] bp 16:12 Acuity: YANNICK 3 bp Triage Assessment: 16:14 General: Appears uncomfortable, unkempt, Behavior is calm, cooperative, appropriate for bp age. Pain: Denies pain. EENT: No deficits noted. Neuro: No deficits noted. Cardiovascular: Rhythm is sinus rhythm. Respiratory: Reports shortness of breath Breath sounds with wheezes bilaterally. Onset: The symptoms/episode began/occurred at an unknown time. the patient has moderate shortness of breath. GI: No signs and/or symptoms were reported involving the gastrointestinal system. : No signs and/or symptoms were reported regarding the genitourinary system. Derm: No deficits noted. Musculoskeletal: No deficits noted. Historical: - Allergies: 16:14 No Known Allergies; bp - PMHx: 16:14 Atrial fibrillation; CHF; Chronic obstructive lung disease; COPD; Hypertension; bp Pneumonia; - PSHx: 16:14 cyst removal on lower left limb; hernia; bp - Immunization history:: Adult Immunizations up to date. - Infectious Disease History:: Denies. - Social history:: Smoking status: Patient reports the use of cigarette tobacco products, unknown amount. - Family history:: not pertinent. - Hospitalizations: : Patient was recently seen at. Screenin:28 [facility] ED Fall Risk Assessment (Adult) History of falling in the last 3 months, hb including since admission No falls in past 3 months (0 pts) Confusion or Disorientation No (0 pts) Intoxicated or Sedated No (0 pts) Impaired Gait No (0 pts) Mobility Assist Device Used No (0 pt) Altered Elimination No (0 pt) Score/Fall Risk Level 0 - 2 = Low Risk Oriented to surroundings, Maintained a safe environment, Educated pt \T\ family on fall prevention, incl call for assistance when getting out of bed. Abuse screen: Denies threats or abuse. Denies injuries from another. Nutritional screening: No deficits noted. Tuberculosis screening: No symptoms or risk factors identified. Assessment: 17:00 Reassessment: Patient appears in no apparent distress at this time. Patient and/or hb family updated on plan of care and expected duration. Pain level reassessed. 18:04 Reassessment: Patient appears in no apparent distress at this time. No changes from hb previously documented assessment. Patient and/or family updated on plan of care and expected duration. Pain level reassessed. 18:40 Reassessment: Patient appears in no apparent distress at this time. No changes from hb previously documented assessment. Patient and/or family updated on plan of care and expected duration. Pain level reassessed. 19:10 Reassessment: No changes from previously documented assessment. Patient and/or family cp4 updated on plan of care and expected duration. Pain level reassessed. Patient is alert, oriented x 3, equal unlabored respirations, skin warm/dry/pink. 20:00 Reassessment: Patient appears in no apparent distress at this time. Patient and/or cp4 family updated on plan of care and expected duration. Pain level reassessed. Patient is alert, oriented x 3, equal unlabored respirations, skin warm/dry/pink. 21:00 Reassessment: Patient appears in no apparent distress at this time. Patient and/or cp4 family updated on plan of care and expected duration. Pain level reassessed. Patient is alert, oriented x 3, equal unlabored respirations, skin warm/dry/pink. Vital Signs: 16:12 BP 121 / 68; Pulse 58; Resp 18; Temp 97.9; Pulse Ox 99% on 12 lpm Nebulizer Mask; bp 16:40 Pulse Ox 75% on R/A; hb 17:00 BP 125 / 53; Pulse 72; Resp 24; Pulse Ox 90% on 2 lpm NC; hb 18:04 BP 130 / 106; Pulse 69; Resp 23; Pulse Ox 91% on 2 lpm NC; hb 18:40 BP 108 / 55; Pulse 73; Resp 23; Pulse Ox 91% on 2 lpm NC; hb 19:00 BP 131 / 77; Pulse 68; Resp 18; Pulse Ox 94% on 2 lpm NC; cp4 20:00 BP 129 / 56; Pulse 67; Resp 18; Pulse Ox 94% on 2 lpm NC; cp4 21:00 BP 116 / 58; Pulse 64; Resp 18; Pulse Ox 94% ; cp4 21:50 Weight 39.28 kg; Height 5 ft. 11 in. ; kj2 21:50 Body Mass Index 12.08 (39.28 kg, 180.34 cm) kj2 ED Course: 16:12 Patient arrived in ED. bp 16:12 Severo Nielsen MD is Attending Physician. rn 16:13 Triage completed. bp 16:14 Arm band placed on. bp 16:15 Maintain EMS IV. Dressing intact. Good blood return noted. Site clean \T\ dry. Gauge \T\ bp site: 20 RFA. Flushed with 10 mL NS. 16:16 Sanchez Sweet, SAMEER is Primary Nurse. bp 16:27 EKG done, by ED staff, reviewed by Severo Nielsen MD. hb 16:28 Patient has correct armband on for positive identification. Bed in low position. Call hb light in reach. Provided Education on: use of call light . Client placed on continuous cardiac and pulse oximetry monitoring. NIBP monitoring applied. rn review on. Pulse ox on. NIBP on. 16:31 Chest Single View XRAY In Process Unspecified. EDMS 17:05 Warm blanket given. hb 18:00 CT Chest, Abdomen, Pelvis - W/Contrast In Process Unspecified. EDMS 19:03 Prince Chen MD is Hospitalizing Provider. rn 22:15 No provider procedures requiring assistance completed. Patient admitted, IV remains in kj2 place. Administered Medications: 16:27 Drug: Levalbuterol Inhalation 1.25 mg Inhalation once Route: Inhalation; hb 17:05 Follow up: Response: No adverse reaction hb 16:27 Drug: Levalbuterol Inhalation 1.25 mg Inhalation once Route: Inhalation; hb 17:05 Follow up: Response: No adverse reaction hb 19:23 Drug: levofloxacin IVPB 750 mg 150 ml IVPB once over 90 mins Volume: 150 ml; Route: kj2 IVPB; Infused Over: 90 mins; Site: right forearm; 22:19 Follow up: IV Status: Completed infusion; IV Intake: 150ml kj2 22:20 Follow up: Response: No adverse reaction kj2 Medication: 16:28 VIS not applicable for this client. hb Intake: 22:19 IV: 150ml; Total: 150ml. kj2 Outcome: 19:03 Decision to Hospitalize by Provider. rn 22:19 Patient left the ED. cp4 22:20 Admitted to Med/surg via stretcher, kj2 22:20 Condition: stable 22:20 Instructed on the need for admit, Demonstrated understanding of Signatures: Dispatcher [employer] EDMS Severo Nielsen MD MD rn Baxter, Heather, RN RN Sanchez Sweet RN RN bp Potter, Christina 4 Vivi German, SAMEER RN kj2 Corrections: (The following items were deleted from the chart) 17:23 17:00 BP 125 / 53; Pulse 72bpm; Resp 24bpm; Pulse Ox 90% RA; hb hb
[2024-06-14] MEDS ORDERED: ALBUTEROL 2.5 MG/3 ML NEB SOL NEB PRN (19:11)
[2024-06-14] MEDS ORDERED: IPRATROPIUM BROM 0.5MG/2.5ML NEB PRN (19:11)
[2024-06-14] MEDS ORDERED: ONDANSETRON 4 MG/2 ML VIAL IV PRN (19:11)
[2024-06-14] MEDS ORDERED: Levofloxacin 750mg IV 750 MG/150 ML BAG IV ONE (19:16)
--- NOTE | 2024-06-14 19:41 | P.HP ---
Certification for Inpatient Patient admitted to: Inpatient With expected LOS: >2 Midnights Practitioner: I am a practitioner with admitting privileges, knowledge of patient current condition, hospital course, and medical plan of care. Services: Services provided to patient in accordance with Admission requirements found in Title 42 Section 412.3 of the Code of Federal Regulations Patient History Date of Service: 06/14/24 History of Present Illness: Patient is a 69-year-old male with a past medical history of atrial fibrillation, congestive heart failure, COPD and seizure disorder. [facility] for evaluation of dry cough and shortness of breath. The patient is not sure if his been febrile as well. He has a history and history of infective endocarditis that required transfer to [facility] in March 2024. Following his hospitalization, he was discharged to this fdc. He has not fully recovered since his hospitalization. He is being physically deconditioned. And over the past few days, he has developed dry cough and shortness of breath. Was reportedly diagnosed with pneumonia and was started on Levaquin. He is here because he failed to improve. Allergies No Known Allergies Allergy (Verified 11/12/23 14:18) Home Medications: Amlodipine [Norvasc*] 10 mg PO DAILY 02/22/23 Spironolactone 25 mg PO DAILY 02/22/23 Roflumilast [Daliresp*] 500 mcg PO DAILY 30 Days #30 tab 05/20/23 Tamsulosin [Flomax*] 0.4 mg PO DAILY 06/29/23 Ipratropium/Albuterol Sulfate [Iprat-Albut 0.5-3(2.5) mg/3 ml] 3 ml IH Q6H PRN #120 amp 08/20/23 Montelukast [Singulair*] 10 mg PO DAILY 11/19/23 Fluticasone/Umeclidin/Vilanter [Trelegy Ellipta 100-62.5-25] 1 puff IH DAILY 02/07/24 Apixaban [Eliquis] 5 mg PO BID 02/17/24 predniSONE [Deltasone*] 10 mg PO DAILY #30 tab 03/17/24 Amiodarone HCl [Cordarone*] 200 mg PO DAILY 04/12/24 - Past Medical/Surgical History Diabetic: No -: COPD on chronic home O2/steroids -: Hypertension -: Alcohol abuse -: Hyponatremia -: Diastolic CHF -: Pneumonia -: A-fibon chronic anticoagulation -: Hernia repair -: left leg wound -: Left foot cancer removal Psychosocial/ Personal History: Patient is . He lives at home and has home health. - Family History Father -: Heart disease Brother -: Lung disease - Social History Alcohol use: No CD- Drugs: No Caffeine use: Yes Physical Examination - Physical Exam General: Other (Frail and physically deconditioned) HEENT: Atraumatic, Normocephalic Respiratory: Diminished, Expiratory wheezes Cardiovascular: Other (Bilateral lower extremity edemaLeft more than right), Edema Neurological: Normal speech - Studies Laboratory Data (last 24 hrs) 06/14/24 06/14/24 06/14/24 16:30 16:30 16:30 WBC 6.30 Hgb 7.9 L Hct 26.3 L Plt Count 268 PT 18.2 H INR 1.65 APTT 40.7 H Sodium 139 Potassium 4.0 BUN 11 Creatinine 0.85 Glucose 117 H Total Bilirubin 0.3 AST 18 ALT < 14 L Alkaline Phosphatase 66 Assessment and Plan - Problems (Diagnosis) (1) Acute and chronic respiratory failure Current Visit: No Status: Acute Qualifiers: (2) Acute exacerbation of COPD with asthma Current Visit: No Status: Acute (3) Acute respiratory failure with hypoxia Current Visit: No Status: Acute (4) Atrial fibrillation Current Visit: No Status: Acute (5) BPH (benign prostatic hyperplasia) Current Visit: No Status: Acute - Plan Assessment This is a 69-year-old male with extensive cardiopulmonary history who is being admitted for COPD exacerbation in the setting of pneumonia. He uses oxygen intermittently at the fdc, mostly at night. Workup in this admission included a chest x-ray which revealed lingular and right-sided opacities. He also has evidence of pulmonary edema on chest x-ray. He is currently on supplemental oxygen. Acute respiratory failure COPD exacerbation Healthcare associated pneumonia Possible CHF exacerbation Atrial fibrillation BPH Plan: Will admit inpatient with telemetry Start patient on empiric antibiotics, DuoNebs, Dulera and Solu-Medrol Will also start patient on IV Lasix Follow 2D echo Measure intake and output Left lower extremity Doppler ultrasound DVT and GI prophylaxis PT/OT before discharge Patient is full code - Advance Directives Does patient have a Living Will: No Does patient have a Durable POA for Healthcare: No
[2024-06-14] MEDS: DULERA 200/5 (MOMETASONE/FORMOTEROL) INHALER IH SCH (21:00)
--- NOTE | 2024-06-14 21:00 | RAD REPORT ---
EXAM:Extremity Venous Uni Ltd HISTORY: Leg pain TECHNIQUE: Sonographic evaluation left lower extremity performed.Grayscale, color and spectral analys is performed on all vessels COMPARISON: 2022. FINDINGS: Left common femoral, superficial femoral, greater saphenous, popliteal and posterior tibial veins are compressible and demonstrate augmentation. Doppler demonstrates good flow. IMPRESSION: No evidence of deep venous thrombosis involving the left lower extremity.
[2024-06-14] MEDS: AMPICILLIN/SULBACT 3 GM in NA CHLORIDE 0.9% 100 ML IVPB SCH (22:00)
[2024-06-14] MEDS: AMPICILLIN/SULBACT 3 GM in NA CHLORIDE 0.9% 100 ML IVPB ONE (23:04)
[2024-06-14] MEDS: FAMOTIDINE 20 MG/2 ML VIAL IV SCH (23:05)
[2024-06-14] MEDS: FUROSEMIDE 40 MG/4 ML VIAL IV SCH (23:52)
[2024-06-14] MEDS: AZITHROMYCIN IV 500 MG in NA CHLORIDE 0.9% 250 ML IVPB SCH (23:54)
[2024-06-15] MEDS: METHYLPREDNISOLONE 40 MG INJ IV SCH (00:08)
[2024-06-15] MEDS: ALBUTEROL 2.5 MG/3 ML NEB SOL NEB SCH (00:14)
[2024-06-15] MEDS: IPRATROPIUM BROM 0.5MG/2.5ML NEB SCH (00:14)
[2024-06-15 02:36] LABS: Specific Gravity > 1.030 (1.005-1.030); Sqamous Epithelial <5 /HPF (None Seen); Urine Bacteria None Seen /HPF (<20); Urine Bilirubin NEGATIVE (Negative); Urine Blood Negative (Negative); Urine Clarity Clear (Clear); Urine Color Light-Yellow (Yellow); Urine Culture Reflex Order NOT NEEDED; Urine Glucose NEGATIVE (Negative); Urine Ketones NEGATIVE (Negative); Urine Microscopic Reflex YN ORDER UMIC; Urine Nitrite NEGATIVE (Negative); Urine Protein NEGATIVE (Negative); Urine RBC <5 /HPF (None Seen); Urine Urobilinogen Normal (Normal); Urine WBC <5 /HPF (<5)
[2024-06-15 04:50] LABS: SARS-CoV-2 Antigen CONTROL BLUE LINE VIS/BG OK; SARS-CoV-2 Antigen Rapid Res Negative (Negative)
[2024-06-15 06:36] LABS: Absolute Lymphocytes (CBC) 0.3 K/uL (0.7-4.9); Absolute Monocytes 0.1 K/uL (0.1-1.3); Absolute Neutrophil 2.4 K/uL (1.8-8.0); Basophils % 0.1 % (0-1.3); Hematocrit 25.1 % (39.6-49.0); Hemoglobin 7.7 g/dL (13.6-17.9); Lymphocytes % 9.5 % (15.3-44.8); MCH 23.3 pg (27.0-35.0); MCHC 30.8 g/dL (32.0-36.0); MCV 75.8 fL (80-100); MPV 8.1 fL (7.6-11.3); Monocytes % 2.6 % (3.3-12.3); Neutrophils % 87.8 % (41.7-73.7); Platelets 282 thou/uL (152-406); RBC Red Blood Cell Count 3.31 M/uL (4.33-5.43); Red Cell Distribution Width 17.2 % (12.1-15.2)
[2024-06-15 06:46] LABS: Anion Gap 5.3 mEq/L (5.0-15.0); Potassium 3.3 mEq/L (3.5-5.1)
--- NOTE | 2024-06-15 07:34 | P.PN ---
Date of Service: 06/15/24 Subjective: breathing feels significantly better today easier to take deeper breath this morning feels some increased confusion recently at home Family reports patient seeing possible hallucinations noncompliant with CPAP/BiPAP at home ROS: 10 point ROS as noted above, otherwise negative Physical Exam: GEN: Alert, NAD, oriented HEENT: Normal conjunctiva, sclera anicteric, CV: Regular rate and rhythm, trace edema Pulm: moderately labored respirations on room air, +wheeze, on 2L NC ABD: soft, nontender, nondistended Neuro: Normal speech, normal affect Problem List: Acute respiratory failure secondary to Acute COPD Exacerbation (on chronic home O2/steroids) Possible Pneumonia Hx recent Bacteremia / Right mandibular abscess chronic diastolic CHF Obstructive sleep apnea Hypertension chronic A-fib on anticoagulation BPH Tobacco abuse Acute respiratory failure secondary to Acute COPD Exacerbation (on chronic home O2/steroids) Possible Pneumonia Hx recent Bacteremia / Right mandibular abscess on admission, presents with worsening shortness of breath, cough, wheeze. SOB worsened with light activity/cough. reportedly diagnosed with pneumonia 2 days prior to admission Recently hospitalized at [facility] (04/19-05/03) Was transferred from here for possible endocarditis. MARCK done 04/21 was negative - No evidence of endocarditis. Completed 10 days of clindamycin/rocephin for Bacteremia/Right mandibular abscess. discharged to intermediate but never felt like he fully recovered. Was told to follow up with oral surgeon/dentist as outpatient after discharge from [facility]. CT chest (06/14): Mild lingular and right middle lobe opacities may represent pneumonia. Mild RLL atelectasis. Mild COPD. No pneumoperitoneum. Venous u/s (06/14): no DVT in LLE given albuterol and levaquin in ED check abg Continue IV steroids, duonebs continue IV lasix continue empiric unasyn and azithromycin (06/14-) to cover possible pneumonia follow blood cultures - prelim positive continue unasyn previous +strep mitis chronic diastolic CHF CXR (06/14): mild bilateral interstitial lung opacities may indicate mild pulmonary edema. recent echo (04/17): 60-65% EF, grade 1 diastolic dysfunction, calcified right coronary leatlet aortic valve Continue IV lasix Obstructive sleep apnea reports some degree on noncompliance with CPAP/BiPAP at home discussed importance of compliance with CPAP with patient Hypertension chronic A-fib on anticoagulation BPH confirm home meds, restart as appropriate Tobacco abuse cessation advised VTE: Lovenox Code: Full Dispo: back to NH pending cultures, pulm recs Time Spent Managing Pts Care (In Minutes): 51
[2024-06-15] MEDS: POTASSIUM CL SA 10 MEQ TAB PO ONE (09:13)
[2024-06-15] MEDS: ASPIRIN EC 81 MG TAB PO SCH (09:14)
[2024-06-15] MEDS: ENOXAPARIN 40 MG/0.4 ML SQ SCH (09:15)
[2024-06-15 09:32] LABS: Blood Morphology Comment NOTED (NOT SEEN); Differential Total Cells Count 100; Hypochromasia 1+; Lymphocytes 14 % (15-42); Monocytes 0 % (0-10); Platelet Estimate ADEQ; Segmented Neutrophils 86 % (40-80)
--- NOTE | 2024-06-15 11:50 | P.CNS ---
Date of Consult: 06/15/24 Reason for Consult: COPD exacerbation Chief Complaint: Shortness of breath History of Present Illness: Is 69 years of age with terminal COPD was recently hospitalized with IV antibiotics [facility] failure was transferred to a senior living came back again complaining of worsening dyspnea and lower extremity edema denies any fever or chills really bad he was compliant with his medications he is not drinking Allergies No Known Allergies Allergy (Verified 11/12/23 14:18) Home Medications: Amlodipine [Norvasc*] 10 mg PO DAILY 02/22/23 Spironolactone 25 mg PO DAILY 02/22/23 Roflumilast [Daliresp*] 500 mcg PO DAILY 30 Days #30 tab 05/20/23 Tamsulosin [Flomax*] 0.4 mg PO DAILY 06/29/23 Ipratropium/Albuterol Sulfate [Iprat-Albut 0.5-3(2.5) mg/3 ml] 3 ml IH Q6H PRN #120 amp 08/20/23 Montelukast [Singulair*] 10 mg PO DAILY 11/19/23 Fluticasone/Umeclidin/Vilanter [Trelegy Ellipta 100-62.5-25] 1 puff IH DAILY 02/07/24 Apixaban [Eliquis] 5 mg PO BID 02/17/24 predniSONE [Deltasone*] 10 mg PO DAILY #30 tab 03/17/24 Amiodarone HCl [Cordarone*] 200 mg PO DAILY 04/12/24 - Past Medical/Surgical History Diabetic: No -: COPD on chronic home O2/steroids -: Hypertension -: Alcohol abuse -: Hyponatremia -: Diastolic CHF -: Pneumonia -: A-fibon chronic anticoagulation -: Hernia repair -: left leg wound -: Left foot cancer removal Psychosocial/ Personal History: Patient is . He lives at home and has home health. - Family History Father Medical History: Heart disease Brother Medical History: Lung disease - Social History Smoking Status: Current every day smoker Alcohol use: No CD- Drugs: No Caffeine use: Yes Review of Systems 10-point ROS is otherwise unremarkable General: Weakness Respiratory: Cough, Shortness of Breath Physical Examination Temp Pulse Resp BP Pulse Ox 98.9 F 79 18 159/71 H 95 06/15/24 08:00 06/15/24 09:14 06/15/24 08:00 06/15/24 09:14 06/15/24 08:00 General: Alert, Oriented x3 Respiratory: Crackles/rales, Expiratory wheezes Cardiovascular: Edema (2+ edema) Gastrointestinal: Normal bowel sounds, Soft and benign Laboratory Data (last 24 hrs) 06/14/24 06/14/24 06/14/24 16:30 16:30 16:30 WBC 6.30 Hgb 7.9 L Hct 26.3 L Plt Count 268 PT 18.2 H INR 1.65 APTT 40.7 H Sodium 139 Potassium 4.0 BUN 11 Creatinine 0.85 Glucose 117 H Total Bilirubin 0.3 AST 18 ALT < 14 L Alkaline Phosphatase 66 - Problems (1) COPD exacerbation Current Visit: Yes Status: Acute Plan: And is 69 years of age with a history of recurrent hospitalization due to COPD. Again he has a lengthy hospital stay at this time he does have active sepsis scarring I think in the right lower lobe acetone level is also negative DC antibiotics reduce dose of steroids with bronchodilators resume spironolactone he has underlying diastolic heart failure oxygenation satisfactory pressure elevated carbonate level is also mildly elevated to have hypercapnic hypoxic respiratory failure did not use of BiPAP his bicarb is elevated check ABGs (2) Iron deficiency anemia Current Visit: Yes Status: Acute Plan: I strongly suspect patient has iron deficiency anemia has become progressively more microcytic anemic iron studies ordered Qualifiers: Iron deficiency anemia type: unspecified iron deficiency Qualified Code(s): D50.9 - Iron deficiency anemia, unspecified
--- NOTE | 2024-06-15 12:15 | EKG ---
Test Date: 2024-06-14 Test Time: 16:25:02 [employer] Drier Tender: HB MEASUREMENT RESULTS: Intervals: Rate: 64 NV: 226 QRSD: 94 QT: 434 QTc: 447 [place]: P: 59 NV: 226 QRS: 29 T: 46 INTERPRETIVE STATEMENTS: Sinus rhythm with 1st degree AV block Otherwise normal ECG Compared to ECG 04/11/2024 23:25:59 First degree AV block now present Incomplete right bundle-branch block no longer present Myocardial infarct finding no longer present Electronically Signed On 06-15-24 12:12:52 CDT by Willie Leonard
[2024-06-15] MEDS: NICOTINE 14 MG/PAT TD SCH (12:46)
[2024-06-15] MEDS: SPIRONOLACTONE 25 MG TABLET PO SCH (12:46)
[2024-06-15] MEDS: ROFLUMILAST 500 MCG TABLET PO SCH (12:46)
[2024-06-15 13:12] LABS: Ferritin 7.6 ng/mL (26-388)
[2024-06-15 14:45] LABS: Arterial Blood Carboxyhemoglob 1.4 % (0-1.5); Blood Gas Oxyhemoglobin 93.3 % (94-97); Blood O2 Saturation 95.6 % (92-98.5)
[2024-06-15 14:46] LABS: Blood Gas THB 8.2 g/dl (12-18)
[2024-06-15] MEDS: ARFORMOTEROL TARTRATE 15 MCG/2 ML VIAL.NEB NEB SCH (20:05)
[2024-06-15] MEDS: predniSONE 20 MG TAB PO SCH (20:11)
[2024-06-16 06:24] LABS: Absolute Lymphocytes (CBC) 0.8 K/uL (0.7-4.9); Absolute Neutrophil 4.4 K/uL (1.8-8.0); Basophils % 0.1 % (0-1.3); Hemoglobin 7.5 g/dL (13.6-17.9); MCH 23.5 pg (27.0-35.0); MCHC 31.3 g/dL (32.0-36.0); MCV 75.1 fL (80-100); MPV 7.7 fL (7.6-11.3); Monocytes % 16.4 % (3.3-12.3); Neutrophils % 70.5 % (41.7-73.7); Nucleated Red Blood Cells % 0.1 % (0-0); Platelets 262 thou/uL (152-406); RBC Red Blood Cell Count 3.19 M/uL (4.33-5.43); Red Cell Distribution Width 16.8 % (12.1-15.2)
[2024-06-16 06:52] LABS: ALT/SGPT 15 U/L (16-61); Albumin/Globulin Ratio 1.3 (1.1-1.8); Alkaline Phosphatase 50 U/L (45-117); Anion Gap 6.1 mEq/L (5.0-15.0); BUN Blood Urea Nitrogen 17 mg/dL (7-18); Bicarbonate 41 mEq/L (21-32); Bilirubin Total 0.3 mg/dL (0.2-1.0); Globulin 2.4 g/dL (2.3-3.5); Glomerular Filtration Rate 99 ml/min (=/>90); Glucose Level 104 mg/dL (74-106); Magnesium 2.1 mg/dL (1.6-2.4); Potassium 3.1 mEq/L (3.5-5.1); Protein, Total 5.4 g/dL (6.4-8.2); Sodium Level 142 mEq/L (136-145)
[2024-06-16 06:54] LABS: AST/SGOT < 10 U/L (15-37)
[2024-06-16] MEDS ORDERED: AMPICILLIN/SULBACT 3 GM in NA CHLORIDE 0.9% 100 ML IVPB SCH (09:00)
[2024-06-16] MEDS ORDERED: POTASSIUM 25 MEQ EFFERV TAB PO SCH (09:00)
--- NOTE | 2024-06-16 09:05 | P.PN ---
Date of Service: 06/16/24 Subjective: Feels breathing is a little easier each day breathing treatments seem to help per patient denies abdominal pains. Appetite improving afebrile ROS: 10 point ROS as noted above, otherwise negative Physical Exam: GEN: Alert, NAD, oriented HEENT: Normal conjunctiva, sclera anicteric, CV: Regular rate and rhythm, trace edema Pulm: moderately labored respirations on room air, +wheeze, on 2L NC ABD: soft, nontender, nondistended Neuro: Normal speech, normal affect Problem List: Acute respiratory failure secondary to Acute COPD Exacerbation (on chronic home O2/steroids) Possible Pneumonia Hx recent Bacteremia / Right mandibular abscess chronic diastolic CHF Obstructive sleep apnea Hypertension chronic A-fib on anticoagulation BPH Tobacco abuse Acute respiratory failure secondary to Acute COPD Exacerbation (on chronic home O2/steroids) Gram positive bacteremia / Suspected Pneumonia Hx recent Bacteremia / Right mandibular abscess on admission, presents with worsening shortness of breath, cough, wheeze. SOB worsened with light activity/cough. reportedly diagnosed with pneumonia 2 days prior to admission Recently hospitalized at [facility] (04/19-05/03) Was transferred from here for possible endocarditis. MARCK done 04/21 was negative - No evidence of endocarditis. Completed 10 days of clindamycin/rocephin for Bacteremia/Right mandibular abscess. CT maxillofacial (04/21 @[facility]): multiple dental carries and right mandibular periapical tooth abscess. discharged to halfway but never felt like he fully recovered. Was told to follow up with oral surgeon/dentist as outpatient after discharge from [facility]. CT chest (06/14): Mild lingular and right middle lobe opacities may represent pneumonia. Mild RLL atelectasis. Mild COPD. No pneumoperitoneum. Venous u/s (06/14): no DVT in LLE given albuterol and levaquin in ED Pulm is following IV steroids deescalated to oral prednisone 06/15 Spironolactone added 06/15 continue IV lasix, duonebs continue empiric unasyn (06/14-) to cover possible pneumonia / bacteremia blood cx (06/14): 1/ positive for GPC previous grew strep mitis resistant to Azithromycin/Levaquin/Erythromycin on 04/14/24 Severe iron deficiency anemia denies any obvious bleeding. No black/tarry stools iron 11, tsat% 2.7% (06/15) daily labs - monitor H&H Start IV iron chronic diastolic CHF CXR (06/14): mild bilateral interstitial lung opacities may indicate mild pulmonary edema. recent echo (04/17): 60-65% EF, grade 1 diastolic dysfunction, calcified right coronary leatlet aortic valve Continue IV lasix Obstructive sleep apnea reports some degree on noncompliance with CPAP/BiPAP at home discussed importance of compliance with CPAP with patient Hypertension chronic A-fib on anticoagulation BPH confirm home meds, restart as appropriate Tobacco abuse cessation advised VTE: Lovenox Code: Full Dispo: back to NH, ~2-3 days pending blood cultures, pulm recs Time Spent Managing Pts Care (In Minutes): 51
[2024-06-16] MEDS: AMPICILLIN/SULBACT 3 GM in NA CHLORIDE 0.9% 100 ML IVPB SCH (09:44)
[2024-06-16] MEDS: POTASSIUM 25 MEQ EFFERV TAB PO ONE (09:47)
[2024-06-16] MEDS: SOD FERRIC GLUC COMPLX/SUCROSE 125 MG in NA CHLORIDE 0.9% 100 ML IV SCH (10:58)
[2024-06-16] MEDS: IPRATROPIUM BROM 0.5MG/2.5ML NEB PRN (19:37)
[2024-06-16] MEDS: POTASSIUM CL SA 10 MEQ TAB PO ONE (21:30)
[2024-06-17 04:14] VITALS: BMI 25.1
[2024-06-17 05:19] LABS: Absolute Lymphocytes (CBC) 0.5 K/uL (0.7-4.9); Absolute Monocytes 0.5 K/uL (0.1-1.3); Absolute Neutrophil 5.3 K/uL (1.8-8.0); Hematocrit 27.3 % (39.6-49.0); Hemoglobin 8.2 g/dL (13.6-17.9); Lymphocytes % 7.6 % (15.3-44.8); MCH 22.6 pg (27.0-35.0); MCHC 29.8 g/dL (32.0-36.0); MCV 75.8 fL (80-100); MPV 8.2 fL (7.6-11.3); Monocytes % 8.6 % (3.3-12.3); Neutrophils % 83.8 % (41.7-73.7); Platelets 269 thou/uL (152-406); Red Cell Distribution Width 16.9 % (12.1-15.2)
[2024-06-17 06:24] LABS: Anion Gap 6.8 mEq/L (5.0-15.0); Magnesium 2.2 mg/dL (1.6-2.4); Potassium 3.8 mEq/L (3.5-5.1)
--- NOTE | 2024-06-17 09:49 | P.PN ---
Subjective Date of Service: 06/17/24 Chief Complaint: COPD exacerbation Subjective: Improving (Is improving no new complaints still weak and dyspneic) Review of Systems General: Weakness Respiratory: Shortness of Breath Physical Examination - Vital Signs Temperature: 98.2 F Blood Pressure: 134/64 Pulse: 76 Respirations: 20 Pulse Ox (%): 96 - Physical Exam General: Alert, In no apparent distress, Oriented x3 Respiratory: Clear to auscultation bilaterally, Diminished Cardiovascular: No edema, Regular rate/rhythm Assessment And Plan - Current Problems (Diagnosis) (1) COPD exacerbation Current Visit: Yes Status: Acute Plan: Patient is 69 years of age admitted with COPD exacerbation terminal COPD compliant with her NIV at home labs chemistries reviewed doubt pneumonia probably has some right basilar atelectasis DC antibiotic doing well continue with nebulized bronchodilators discharge planning patient's procalcitonin is also negative see IV Lasix due to elevated bicarbonate some Diamox (2) Iron deficiency anemia Current Visit: Yes Status: Acute Plan: Patient has iron deficiency anemia started on IV iron Qualifiers: Iron deficiency anemia type: unspecified iron deficiency Qualified Code(s): D50.9 - Iron deficiency anemia, unspecified
[2024-06-17] MEDS: POTASSIUM CL SA 10 MEQ TAB PO ONE (09:58)
[2024-06-17] MEDS: predniSONE 10 MG TAB PO SCH (10:00)
[2024-06-17] MEDS: acetaZOLAMIDE 250 MG TAB PO SCH (12:21)
[2024-06-18 06:32] LABS: Hematocrit 28.1 % (39.6-49.0); Hemoglobin 8.5 g/dL (13.6-17.9); MCHC 30.2 g/dL (32.0-36.0); MPV 7.4 fL (7.6-11.3); Platelets 291 thou/uL (152-406); Red Cell Distribution Width 17.4 % (12.1-15.2)
[2024-06-18 06:44] LABS: Anion Gap 3.3 mEq/L (5.0-15.0); Potassium 4.3 mEq/L (3.5-5.1)
--- NOTE | 2024-06-18 09:57 | P.PN ---
Subjective Date of Service: 06/18/24 Chief Complaint: COPD exacerbation No significant change still feels very weak cough congestion productive sputum relating yesterday Review of Systems General: Weakness Respiratory: Cough, Shortness of Breath Physical Examination - Vital Signs Temperature: 97.7 F Blood Pressure: 138/69 Pulse: 72 Respirations: 18 Pulse Ox (%): 100 - Physical Exam General: Alert, Oriented x3 Respiratory: Expiratory wheezes Cardiovascular: No edema, Normal pulses - Studies Microbiology Data (last 24 hrs): 06/14/24 16:20 Blood - Blood Aerobic Blood Culture - Final Streptococcus Dysgalactiae 06/14/24 16:20 Blood - Blood Blood Culture Gram Stain - Final Assessment And Plan - Current Problems (Diagnosis) (1) COPD exacerbation Current Visit: Yes Status: Acute Plan: Patient still complains of wheezing continue with current therapy patient is noncompliant with NIV that was returned before bicarbonate declining with Diamox (2) Iron deficiency anemia Current Visit: Yes Status: Acute Plan: Patient has iron deficiency anemia started on IV iron Qualifiers: Iron deficiency anemia type: unspecified iron deficiency Qualified Code(s): D50.9 - Iron deficiency anemia, unspecified (3) Infective endocarditis Current Visit: Yes Status: Acute Plan: Was recently transferred to [facility] for the possibility of infective endocarditis due to vegetation was found valve culture is again positive was for Streptococcus agalactiae will add amoxicillin and vancomycin consult infectious disease repeat blood cultures charge summary from [facility] count has increased mildly hemoglobin is also increased due to iron infusion
[2024-06-18] MEDS: AMOXICILLIN TRIHYDR 250 MG CAP PO SCH (11:27)
[2024-06-18] MEDS: VANCOMYCIN 2 GM in NA CHLORIDE 0.9% 500 ML IVPB ONE (11:31)
[2024-06-18] MEDS: IPRATROPIUM BROM 0.5MG/2.5ML NEB SCH (13:46)
[2024-06-18] MEDS: VANCOMYCIN 1.5 GM in NA CHLORIDE 0.9% 500 ML IVPB SCH (21:33)
--- NOTE | 2024-06-19 10:18 | P.PN ---
Subjective Date of Service: 06/19/24 Chief Complaint: COPD exacerbation/possible endocarditis Patient still complains of feeling weak however he is a little better cough and congestion has improved denies any fever or chills Review of Systems General: Weakness Respiratory: Cough, Shortness of Breath Physical Examination - Vital Signs Temperature: 97.9 F Blood Pressure: 179/68 Pulse: 71 Respirations: 17 Pulse Ox (%): 98 - Physical Exam General: Alert, Oriented x3 Respiratory: Clear to auscultation bilaterally Cardiovascular: No edema, Regular rate/rhythm, Normal S1 S2 - Studies Microbiology Data (last 24 hrs): 06/14/24 16:20 Blood - Blood Aerobic Blood Culture - Final Streptococcus Dysgalactiae 06/14/24 16:20 Blood - Blood Blood Culture Gram Stain - Final Assessment And Plan - Current Problems (Diagnosis) (1) COPD exacerbation Current Visit: Yes Status: Acute Plan: Patient is currently stable symptoms have improved (2) Iron deficiency anemia Current Visit: Yes Status: Acute Plan: Patient completed iron therapy Qualifiers: Iron deficiency anemia type: unspecified iron deficiency Qualified Code(s): D50.9 - Iron deficiency anemia, unspecified (3) Infective endocarditis Current Visit: Yes Status: Acute Plan: No records from [facility] since white count is elevated possible symptoms of infective endocarditis blood culture is positive cell cardiology infectious disease started on vancomycin blood pressure is mildly elevated Qualifiers: Chronicity: chronic
[2024-06-19 10:54] LABS: Hematocrit 32.3 % (39.6-49.0); Hemoglobin 9.9 g/dL (13.6-17.9); MCH 23.4 pg (27.0-35.0); MCHC 30.5 g/dL (32.0-36.0); MCV 76.9 fL (80-100); MPV 7.7 fL (7.6-11.3); Platelets 343 thou/uL (152-406); Red Cell Distribution Width 17.6 % (12.1-15.2)
--- NOTE | 2024-06-19 19:52 | CON ---
History Of Present Illness: This is a 69-year-old male with significant past medical history of COPD , atrial fibrillation, congestive heart failure, and seizure disorder, coming in with the dry cough a nd shortness of breath. The patient requires oxygen at home, especially at nighttime. Denies any he adache, nausea, vomiting, chest pain, abdominal pain, constipation, diarrhea. He was recently discha rged from the hospital with significant history of infective endocarditis back in March 2024. Past Medical History: COPD with the chronic home O2 and steroid usage, hypertension, alcohol abuse, hyponatremia, diastolic congestive heart failure, pneumonia, atrial fibrillation on chronic anticoagu lation, hernia repair, left leg wound, left foot cancer removal, tobacco use for 50 pack year. Social History: Tobacco positive. Alcohol negative. Family History: Noncontributory. Medications: Includes Unasyn, vancomycin. See MARs for other medications. Allergies: NO KNOWN DRUG ALLERGIES. Review of Systems: A 10-point review was performed. Physical Examination: General: This is a 69-year-old male sitting up in bed, in mild respiratory distress. Vital Signs: Temperature 97, pulse 74, respirations 20, blood pressure 137/62. HEENT: Unremarkable. Neck: Supple. Lungs: Basal crackles. Left base rhonchi noted. Heart: S1, S2. Regular. Systolic ejection murmur noted. Abdomen: Soft, nontender. Bowel sounds present. Extremities: Trace edema. Slight decrease in temperature at the sacral parts of the extremity and p urplish discoloration also noted. Laboratory Data: Shows WBC of 11.1, hemoglobin 9.9, are 17.6, platelets are 343. [employer] ry shows BUN of 16, creatinine is 0.7. Micro data shows blood cultures positive for Strep dysgalacti ae. Assessment And Plan: 69-year-old male with the longstanding history of chronic obstructive pulmonary disease and tobacco use, coming in with cough and shortness of breath secondary to chronic obstructi ve pulmonary disease exacerbation, respiratory failure, and hypoxia, atrial fibrillation, history of infective endocarditis and now with bacteremia secondary to Strep dysgalactiae, currently on Unasyn a nd vancomycin. We will recommend to continue Unasyn for now total of 2 weeks. He can be switched to oral on discharge. Thank you for consult. No other recommendation at this time. NF/MODL Voice ID: [id number] Report ID: [id number]
[2024-06-20] MEDS: ALBUTEROL 2.5 MG/3 ML NEB SOL NEB PRN (08:39)
[2024-06-20] MEDS: VANCOMYCIN 1.5 GM in NA CHLORIDE 0.9% 500 ML IVPB SCH (09:42)
--- NOTE | 2024-06-20 12:30 | P.CNS ---
Date of Consult: 06/20/24 Chief Complaint: COPD exacerbation/possible endocarditis History of Present Illness: Patient with PMH of atrial fibrillation, DD, admitted with bactermia, last time he was here he also had bactermia, work up then shown possible endocarditis of aortic valve for which he was transferred to medical center but more extensive work up excluded that. Allergies No Known Allergies Allergy (Verified 11/12/23 14:18) Home medications list reviewed: Yes Home Medications: Amlodipine [Norvasc*] 10 mg PO DAILY 02/22/23 Spironolactone 25 mg PO DAILY 02/22/23 Roflumilast [Daliresp*] 500 mcg PO DAILY 30 Days #30 tab 05/20/23 Tamsulosin [Flomax*] 0.4 mg PO DAILY 06/29/23 Ipratropium/Albuterol Sulfate [Iprat-Albut 0.5-3(2.5) mg/3 ml] 3 ml IH Q6H PRN #120 amp 08/20/23 Montelukast [Singulair*] 10 mg PO DAILY 11/19/23 Fluticasone/Umeclidin/Vilanter [Trelegy Ellipta 100-62.5-25] 1 puff IH DAILY 02/07/24 Apixaban [Eliquis] 5 mg PO BID 02/17/24 predniSONE [Deltasone*] 10 mg PO DAILY #30 tab 03/17/24 Amiodarone HCl [Cordarone*] 200 mg PO DAILY 04/12/24 - Past Medical/Surgical History Diabetic: No -: COPD on chronic home O2/steroids -: Hypertension -: Alcohol abuse -: Hyponatremia -: Diastolic CHF -: Pneumonia -: A-fibon chronic anticoagulation -: Hernia repair -: left leg wound -: Left foot cancer removal Psychosocial/ Personal History: Patient is . He lives at home and has home health. - Family History Father Medical History: Heart disease Brother Medical History: Lung disease - Social History Smoking Status: Current every day smoker Alcohol use: No CD- Drugs: No Caffeine use: Yes Review of Systems 10-point ROS is otherwise unremarkable Physical Examination Temp Pulse Resp BP Pulse Ox 98.5 F 67 18 122/56 L 100 06/20/24 08:00 06/20/24 08:00 06/20/24 08:00 06/20/24 08:00 06/20/24 08:00 General: Alert, In no apparent distress HEENT: Atraumatic, PERRLA, Mucous membr. moist/pink, EOMI, Sclerae nonicteric Neck: Supple, 2+ carotid pulse no bruit, No LAD, Without JVD or thyroid abnormality Respiratory: Clear to auscultation bilaterally, Normal air movement Cardiovascular: Regular rate/rhythm, Normal S1 S2 Gastrointestinal: Normal bowel sounds, No tenderness Musculoskeletal: No tenderness Integumentary: No rashes Neurological: Normal gait, Normal speech, Normal tone, Normal affect Lymphatics: No axilla or inguinal lymphadenopathy - Problems (1) Infective endocarditis Current Visit: Yes Status: Acute Plan: Despite the fact that patient got persistent Bactermia, MARCK done at prior admission was suspicious for Aortic valve mass but he was transferred to medical center and he more extensive work up and vegetation was excluded, - get records from medical center - repeated TTE did not show any significant aortic valve regurgitation, only thickening and calcification, i wouldnt recommend repeating MARCK at this time and just continue to treat as suspected endocarditis for longer duration of ABx. Qualifiers: Chronicity: chronic (2) Atrial fibrillation Current Visit: No Status: Acute Plan: Amiodarone 200 mg daily Eliquis 5 mg po BID (3) Chronic diastolic heart failure Current Visit: No Status: Chronic Plan: looks euvolemic on exam, continue to monitor. continue Aldactone 25 mg daily
--- NOTE | 2024-06-20 14:24 | ECHO ---
HEIGHT: 5 ft 11 in WEIGHT: 180 lb 6.4 oz DATE OF STUDY: 06/20/[address]: Cooper Holt MD 2-DIMENSIONAL: YES M.MODE: YES DOPPLER: YES COLOR FLOW: YES TDS: PORTABLE: YES DEFINITY: BUBBLE STUDY: DIAGNOSIS: RULE OUT ENDOCARDITIS CARDIAC HISTORY: CATHERIZATION: YES SURGERY: PROSTHETIC VALVE: PACEMAKER: MEASUREMENTS (cm) DIASTOLIC (NORMALS) SYSTOLIC (NORMALS) IVSd 1.3 (0.6-1.2) LA Diam 2.9 (1.9-4.0) LVEF 65% LVIDd 3.8 (3.5-5.7) LVIDs 2.4 (2.0-3.5) %FS 37% LVPWd 1.4 (0.6-1.2) Ao Diam 3.7 (2.0-3.7) 2 DIMENSIONAL ASSESSMENT: RIGHT ATRIUM: NORMAL LEFT ATRIUM: NORMAL RIGHT VENTRICLE: NORMAL LEFT VENTRICLE: MILD LEFT VENTRICULAR HYPERTROPHY TRICUSPID VALVE: TRACE TRICUSPID REGURGITATION MITRAL VALVE: NORMAL PULMONIC VALVE: NORMAL AORTIC VALVE: THICKENED, CALCIFIED PERICARDIAL EFFUSION: NONE AORTIC ROOT: NORMAL LEFT VENTRICULAR WALL MOTION: NORMAL DOPPLER/COLOR FLOW: NORMAL COMMENTS: 1. NORMAL LEFT VENTRICULAR SYSTOLIC FUNCTION, EJECTION FRACTION 65%, NORMAL WALL MOTION 2. NORMAL DIASTOLIC FUNCTION 3. THICKENED, CALCIFIED AORTIC VALVE, NO SIGNIFICANT REGURGITATION TECHNOLOGIST: HAKEEM CHAPARRO
--- NOTE | 2024-06-20 18:16 | P.PN ---
Subjective Date of Service: 06/20/24 Chief Complaint: COPD exacerbation/possible endocarditis Patient has no new complaint. Patient is maintained on 2 L by nasal cannula. No recorded fever. Physical Examination - Vital Signs Temperature: 97.9 F Blood Pressure: 113/55 Pulse: 83 Respirations: 16 Pulse Ox (%): 96 - Studies Microbiology Data (last 24 hrs): 06/14/24 16:30 Blood - Blood Aerobic Blood Culture - Final No growth in 5 days. 06/14/24 16:30 Blood - Blood Anaerobic Blood Culture - Final No growth in 5 days. 06/14/24 16:20 Blood - Blood Aerobic Blood Culture - Final Streptococcus Dysgalactiae 06/14/24 16:20 Blood - Blood Blood Culture Gram Stain - Final 06/14/24 16:20 Blood - Blood Anaerobic Blood Culture - Final No growth in 5 days. Assessment And Plan - Plan Physical Exam: GEN: Alert, NAD, oriented HEENT: Oxygen by nasal cannula CV: Regular rate and rhythm, trace edema Pulm: Nonlabored breathing, mild bilateral scattered wheezes. ABD: soft, nontender, nondistended Neuro: Normal speech, normal affect Diagnosis: Acute on chronic respiratory failure with hypoxia secondary to Acute COPD Exacerbation Possible Pneumonia Hx recent Bacteremia / Right mandibular abscess chronic diastolic CHF Obstructive sleep apnea Hypertension chronic A-fib on anticoagulation BPH Tobacco abuse Acute respiratory failure secondary to Acute COPD Exacerbation (on chronic home O2/steroids) Gram positive bacteremia / Suspected Pneumonia Hx recent Bacteremia / Right mandibular abscess Patient recently hospitalized at [facility] (04/19-05/03). He was transferred from here for possible endocarditis. MARCK done 04/21 was negative - No evidence of endocarditis. Patient completed 10 days of clindamycin/rocephin for Bacteremia/Right mandibular abscess. CT maxillofacial (04/21 @[facility]): multiple dental carries and right mandibular periapical tooth abscess which is suspected to be the source of bacteremia. Was told to follow up with oral surgeon/dentist as outpatient after discharge from [facility]. CT chest (06/14): Mild lingular and right middle lobe opacities may represent pneumonia. Mild RLL atelectasis. Mild COPD. No pneumoperitoneum. Venous u/s (06/14): no DVT in LLE Pulm is following Status post IV steroids transition to oral prednisone 06/15 Spironolactone added 06/15 Status post IV Lasix, transition to oral Diamox. continue duonebs continue empiric unasyn (06/14-) to cover possible pneumonia / bacteremia blood cx (06/14): 1/ positive for GPC previous grew strep mitis resistant to Azithromycin/Levaquin/Erythromycin on 04/14/24 Infectious disease consulted. Cardiology input appreciated-Dr. Leonard recommend treatment for infective endocarditis, no need for repeat endocarditis at this time. Patient will need outpatient follow-up with maxillofacial surgeon or dental surgeon to address his dental caries and periapical tooth abscess. Continue PT. Severe iron deficiency anemia denies any obvious bleeding. No black/tarry stools iron 11, tsat% 2.7% (06/15) daily labs - monitor H&H Continue IV iron chronic diastolic CHF CXR (06/14): mild bilateral interstitial lung opacities may indicate mild pulmonary edema. recent echo (04/17): 60-65% EF, grade 1 diastolic dysfunction, calcified right coronary leatlet aortic valve Status post IV lasix. IV Lasix transition to oral Diamox. Obstructive sleep apnea reports some degree on noncompliance with CPAP/BiPAP at home discussed importance of compliance with CPAP with patient Hypertension chronic A-fib on anticoagulation BPH Patient with labile blood pressure. Heart rate controlled. Tobacco abuse cessation advised VTE: Lovenox Code: Full Dispo: [place].
--- NOTE | 2024-06-21 00:12 | PN ---
Subjective: The patient is lying in bed, feels much better today. Denies any headache, nausea, vomi ting, chest pain, abdominal pain, constipation, or diarrhea. Objective: Vital Signs: Reviewed. Lungs: Basal crackles, left more than right. Heart: S1, S2. Regular. Abdomen: Soft, nontender. Bowel sounds present. Extremities: Trace edema. Laboratory Data: Shows WBC 11.1, hemoglobin 9.9, platelets are 343. Assessment/plan: COPD exacerbation. Leukocytosis with history of infective endocarditis. Recommend to get a MARCK for further evaluation as the patient has confusing history if he has completed treatme nt or not. Blood cultures are growing strep most likely secondary to dental infection. We will shirley mmend to continue Unasyn. Discontinue vancomycin. We will follow the patient as needed. NF/MODL Voice ID: [id number] Report ID: [id number]
[2024-06-21] MEDS ORDERED: FUROSEMIDE 40 MG TABLET PO SCH (09:00)
[2024-06-21] MEDS: Mupirocin NASAL 2 APPL/1 GM TUBE NAS SCH (09:24)
--- NOTE | 2024-06-21 11:10 | RAD REPORT ---
Procedure: Chest Single View HISTORY: Device placement. PICC line placement FINDINGS: PICC line has been inserted with its tip in the distal SVC.
[2024-06-21] MEDS: AMPICILLIN/SULBACT 3 GM in NA CHLORIDE 0.9% 100 ML IV SCH (15:35)
--- NOTE | 2024-06-21 16:09 | P.PN ---
Subjective Date of Service: 06/21/24 Chief Complaint: COPD exacerbation/possible endocarditis Patient has no new complaint. Patient denies shortness of breath. Patient is maintained on 2 L by nasal cannula. Physical Examination - Vital Signs Temperature: 97.3 F Blood Pressure: 151/58 Pulse: 87 Respirations: 18 Pulse Ox (%): 98 Assessment And Plan - Plan Physical Exam: GEN: Alert, NAD, oriented HEENT: Oxygen by nasal cannula CV: Regular rate and rhythm, trace edema Pulm: Nonlabored breathing, mild bilateral scattered wheezes. ABD: soft, nontender, nondistended Neuro: Normal speech, normal affect Diagnosis: Acute on chronic respiratory failure with hypoxia secondary to Acute COPD Exacerbation Possible Pneumonia Hx recent Bacteremia / Right mandibular abscess chronic diastolic CHF Obstructive sleep apnea Hypertension chronic A-fib on anticoagulation BPH Tobacco abuse Acute respiratory failure secondary to Acute COPD Exacerbation (on chronic home O2/steroids) Gram positive bacteremia / Suspected Pneumonia Hx recent Bacteremia / Right mandibular abscess Patient recently hospitalized at [facility] (04/19-05/03). He was transferred from here for possible endocarditis. MARCK done 04/21 was negative - No evidence of endocarditis. Patient completed 10 days of clindamycin/rocephin for Bacteremia/Right mandibular abscess. CT maxillofacial (04/21 @[facility]): multiple dental carries and right mandibular periapical tooth abscess which is suspected to be the source of bacteremia. Was told to follow up with oral surgeon/dentist as outpatient after discharge from [facility]. CT chest (06/14): Mild lingular and right middle lobe opacities may represent pneumonia. Mild RLL atelectasis. Mild COPD. No pneumoperitoneum. Venous u/s (06/14): no DVT in LLE Pulm is following Status post IV steroids and transitioned to oral prednisone 06/15 Spironolactone added 06/15 Status post IV Lasix, transitioned to oral Diamox. continue duonebs continue empiric unasyn (06/14-) to cover possible pneumonia / bacteremia blood cx (06/14): 1/ positive for GPC previous grew strep mitis resistant to Azithromycin/Levaquin/Erythromycin on 04/14/[address] Vera input appreciated. Cardiology input appreciated-Dr. Leonard recommend treatment for infective endocarditis, no need for repeat endocarditis at this time. Patient will need outpatient follow-up with maxillofacial surgeon or dental surgeon to address his dental caries and periapical tooth abscess. Continue PT. PICC line for outpatient IV antibiotics requested. Severe iron deficiency anemia denies any obvious bleeding. No black/tarry stools iron 11, iron sat% 2.7% (06/15) monitor H&H Continue IV iron chronic diastolic CHF CXR (06/14): mild bilateral interstitial lung opacities may indicate mild pulmonary edema. recent echo (04/17): 60-65% EF, grade 1 diastolic dysfunction, calcified right coronary leatlet aortic valve Status post IV lasix. IV Lasix transitioned to oral Diamox. Obstructive sleep apnea noncompliance with CPAP/BiPAP at home reported. CPAP during sleep recommended. Hypertension chronic A-fib on anticoagulation BPH Patient with labile blood pressure. Heart rate controlled. Tobacco abuse cessation advised VTE: Lovenox Code: Full Dispo: NH.
[2024-06-22 06:04] LABS: Absolute Basophils 0.1 K/uL (0-0.5); Absolute Eosinophils 0.1 K/uL (0-0.5); Absolute Lymphocytes (CBC) 0.9 K/uL (0.7-4.9); Absolute Monocytes 0.9 K/uL (0.1-1.3); Absolute Neutrophil 10.1 K/uL (1.8-8.0); Basophils % 0.4 % (0-1.3); Eosinophils % 1.1 % (0-4.4); Hematocrit 28.6 % (39.6-49.0); Hemoglobin 8.8 g/dL (13.6-17.9); Lymphocytes % 7.3 % (15.3-44.8); MCH 24.1 pg (27.0-35.0); MCHC 30.9 g/dL (32.0-36.0); MPV 7.5 fL (7.6-11.3); Monocytes % 7.4 % (3.3-12.3); Neutrophils % 83.8 % (41.7-73.7); Platelets 260 thou/uL (152-406); RBC Red Blood Cell Count 3.66 M/uL (4.33-5.43); Red Cell Distribution Width 17.4 % (12.1-15.2)
--- NOTE | 2024-06-22 15:14 | P.PN ---
Subjective Date of Service: 06/22/24 Chief Complaint: COPD exacerbation/possible endocarditis Patient denies any complain. Patient denies shortness of breath. Patient is maintained on 2 L by nasal cannula. Physical Examination - Vital Signs Temperature: 98.1 F Blood Pressure: 135/57 Pulse: 75 Respirations: 15 Pulse Ox (%): 96 Assessment And Plan - Plan Physical Exam: GEN: Alert, NAD, oriented x 3 HEENT: Oxygen by nasal cannula CV: Regular rate and rhythm, trace edema Pulm: mild bilateral scattered wheezes. Adequate breath sounds bilaterally. ABD: soft, nontender, nondistended Neuro: Normal speech, normal affect Diagnosis: Acute on chronic respiratory failure with hypoxia secondary to Acute COPD Exacerbation Possible Pneumonia Hx recent Bacteremia / Right mandibular abscess chronic diastolic CHF Obstructive sleep apnea Hypertension chronic A-fib on anticoagulation BPH Tobacco abuse Acute respiratory failure secondary to Acute COPD Exacerbation (on chronic home O2/steroids) Gram positive bacteremia / Suspected Pneumonia Hx recent Bacteremia / Right mandibular abscess Patient recently hospitalized at [facility] (04/19-05/03). He was transferred from here for possible endocarditis. MARCK done 04/21 was negative - No evidence of endocarditis. Patient completed 10 days of clindamycin/rocephin for Bacteremia/Right mandibular abscess. CT maxillofacial (04/21 @[facility]): multiple dental carries and right mandibular periapical tooth abscess which is suspected to be the source of bacteremia. Was told to follow up with oral surgeon/dentist as outpatient after discharge from [facility]. CT chest (06/14): Mild lingular and right middle lobe opacities may represent pneumonia. Mild RLL atelectasis. Mild COPD. No pneumoperitoneum. Venous u/s (06/14): no DVT in LLE Pulm is following Status post IV steroids and transitioned to oral prednisone 06/15 Spironolactone added 06/15 Status post IV Lasix, transitioned to oral Diamox. continue duonebs continue empiric unasyn (06/14-) to cover possible pneumonia / bacteremia blood cx (06/14): Streptococcus dysagalatiae previous cultures grew strep mitis resistant to Azithromycin/Levaquin/Erythromycin on 04/14/[address] Vera evaluated patient and he is following. Cardiology input appreciated-Dr. Leonard recommend treatment for infective endocarditis, no need for repeat endocarditis at this time. Patient informed he need outpatient follow-up with maxillofacial surgeon or dental surgeon to address his dental caries and periapical tooth abscess to hopefully remove the source of bacteremia. Continue PT. PICC line for outpatient IV antibiotics requested. Severe iron deficiency anemia denies any obvious bleeding. No black/tarry stools iron 11, iron sat% 2.7% (06/15) monitor H&H Continue IV iron chronic diastolic CHF CXR (06/14): mild bilateral interstitial lung opacities may indicate mild pulmonary edema. recent echo (04/17): 60-65% EF, grade 1 diastolic dysfunction, calcified right coronary leatlet aortic valve Status post IV lasix. IV Lasix transitioned to oral Diamox. Obstructive sleep apnea noncompliance with CPAP/BiPAP at home reported. CPAP during sleep recommended. Hypertension chronic A-fib on anticoagulation BPH Patient with labile blood pressure. Blood pressure has been more stable. Heart rate controlled. Tobacco abuse cessation advised VTE: Lovenox Code: Full Dispo: [place].
[2024-06-22] MEDS: CEFTRIAXONE 2,000 MG in NA CHLORIDE 0.9% 100 ML IV SCH (16:02)
--- NOTE | 2024-06-22 20:46 | PN ---
Subjective: Patient is sitting in easy chair. Denies any headache, nausea, vomiting, chest pain, ab dominal pain, constipation, or diarrhea. Objective: Vital Signs: Reviewed. Lungs: Basal crackles. Heart: S1, S2. Regular. Abdomen: Soft, nontender. Bowel sounds present. Extremities: Trace edema. Laboratory Data: Shows WBC 11.1, hemoglobin 9.9, platelets are 343. Chemistry shows BUN of 17, crea tinine 0.88. Medication: The patient is currently on Unasyn. See MARs for other medications. Assessment And Plan: Bacteremia secondary to Streptococcus dysgalactiae. Patient's repeat blood cul tures done on is negative for any growth. Dental cavity is most likely the source of his infect ion. Continue antibiotic and supportive care for a total of 2 weeks. Consider getting a dental appo intment for the patient. Can be switched to Augmentin on discharge. We will follow patient as conchis ANDREW/NORA Voice ID: [id number] Report ID: [id number]
[2024-06-23 06:12] LABS: Absolute Eosinophils 0.2 K/uL (0-0.5); Absolute Lymphocytes (CBC) 1.1 K/uL (0.7-4.9); Absolute Monocytes 1.1 K/uL (0.1-1.3); Absolute Neutrophil 9.8 K/uL (1.8-8.0); Basophils % 0.3 % (0-1.3); Eosinophils % 1.5 % (0-4.4); Hematocrit 28.3 % (39.6-49.0); Hemoglobin 8.9 g/dL (13.6-17.9); Lymphocytes % 8.7 % (15.3-44.8); MCH 24.7 pg (27.0-35.0); MCHC 31.3 g/dL (32.0-36.0); MCV 78.9 fL (80-100); MPV 7.7 fL (7.6-11.3); Monocytes % 9.3 % (3.3-12.3); Neutrophils % 80.2 % (41.7-73.7); Platelets 249 thou/uL (152-406); RBC Red Blood Cell Count 3.59 M/uL (4.33-5.43); Red Cell Distribution Width 17.5 % (12.1-15.2)
[2024-06-23 06:31] LABS: Anion Gap 4.9 mEq/L (5.0-15.0); Potassium 4.9 mEq/L (3.5-5.1)
[2024-06-23 10:02] VITALS: O2SAT 96
--- NOTE | 2024-06-23 11:05 | P.DS ---
Admission Date: 06/14/24 Discharge Date: 06/23/24 Disposition: TRANSFER TO SNF - REHAB Discharge Condition: FAIR Reason for Admission: COPD exacerbation/possible endocarditis Brief History of Present Illness: Patient is a 69-year-old male with a past medical history of atrial fibrillation, congestive heart failure, COPD and seizure disorder who [facility] of dry cough and shortness of breath. Patient was recently admitted here and subsequently transfered to [facility] in March 2024 for suspected endocarditis. According to report, MARCK done at [facility] did not suggest endocarditis. Following his hospitalization at [facility], he was discharged to this [facility]. He developed dry cough and shortness of breath, was reportedly diagnosed with pneumonia and treated with Levaquin. He is here because he failed to improve with antibiotics. Chest CT done in the emergency department showed right lung infiltrate. Patient was hospitalized for further management. Hospital Course: Patient was admitted to the medical floor and the following medical problems addressed: Diagnosis: Acute on chronic respiratory failure with hypoxia secondary to Acute COPD Exacerbation Possible Pneumonia Hx recent Bacteremia / Right mandibular abscess chronic diastolic CHF Obstructive sleep apnea Hypertension chronic A-fib on anticoagulation BPH Tobacco abuse Acute respiratory failure secondary to Acute COPD Exacerbation (on chronic home O2/steroids) Gram positive bacteremia / Suspected Pneumonia Hx recent Bacteremia / Right mandibular abscess Patient recently hospitalized at [facility] (04/19-05/03). He was transferred from there for possible endocarditis. MARCK done 04/21 was negative - No evidence of endocarditis. Patient noted to have right mandible abscess. Patient completed 10 days of clindamycin/rocephin for Bacteremia/Right mandibular abscess. CT maxillofacial (04/21 @[facility]): multiple dental carries and right mandibular periapical tooth abscess which is suspected to be the source of bacteremia. Patient was told to follow up with oral surgeon/dentist as outpatient after discharge from [facility]. CT chest (06/14): Mild lingular and right middle lobe opacities may represent pneumonia. Mild RLL atelectasis. Mild COPD. No pneumoperitoneum. Venous u/s (06/14): no DVT in LLE Pulmonary consulted to assist with management after admission here Patient treated IV steroids and transitioned to oral prednisone 06/15 Spironolactone added 06/15 Patient was treated with IV Lasix, and transitioned to oral Diamox. COPD also managed duonebs Blood culture grew strep dysagalactiae Patient treated with unasyn (06/14-) to cover possible pneumonia / bacteremia previous cultures grew strep mitis resistant to Azithromycin/Levaquin/Erythromycin on 04/14/[address] Vera evaluated patient and assisted with management Patient seen by cardiology-Dr. Leonard, who recommended no need for repeat MARCK at this time. Repeat blood culture yielded no growth. Dr. Vera recommended 2 weeks of oral Augmentin. Patient informed he need outpatient follow-up with maxillofacial surgeon or dental surgeon to address his dental caries and periapical tooth abscess to hopefully remove the source of bacteremia. Patient received PT and skilled rehab recommended. Patient has clinically improved and deemed stable for discharge to [facility] for skilled rehab. Severe iron deficiency anemia denies any obvious bleeding. No black/tarry stools iron 11, iron sat% 2.7% (06/15) monitor H&H Patient given IV iron replacement. chronic diastolic CHF CXR (06/14): mild bilateral interstitial lung opacities may indicate mild pulmonary edema. recent echo (04/17): 60-65% EF, grade 1 diastolic dysfunction, calcified right coronary leatlet aortic valve Patient treated with IV Lasix and transitioned to oral Diamox. Obstructive sleep apnea noncompliance with CPAP/BiPAP at home reported. CPAP during sleep recommended. Hypertension chronic A-fib on anticoagulation BPH Patient with labile blood pressure. Blood pressure has been more stable. Heart rate controlled. Tobacco abuse cessation advised Vital Signs/Physical Exam: Temp Pulse Resp BP Pulse Ox 97.6 F 75 12 140/65 99 06/23/24 08:00 06/23/24 08:00 06/23/24 08:00 06/23/24 08:00 06/23/24 08:00 General: Alert, In no apparent distress, Oriented x3 HEENT: Mucous membr. moist/pink, Sclerae nonicteric Neck: JVD not distended Respiratory: Normal air movement, Other (Mild scattered wheezes) Cardiovascular: No edema, Normal S1 S2 Gastrointestinal: Soft and benign, Non-distended, No tenderness Musculoskeletal: No swelling Integumentary: No rashes, No cyanosis Neurological: Normal strength at 5/5 x4 extr Laboratory Data at Discharge: WBC 12.20 thou/uL (4.3-10.9) H 06/23/24 05:50 Hgb 8.9 g/dL (13.6-17.9) L 06/23/24 05:50 Hct 28.3 % (39.6-49.0) L 06/23/24 05:50 Plt Count 249 thou/uL (152-406) 06/23/24 05:50 PT 18.2 SECONDS (9.4-12.5) H 06/14/24 16:30 INR 1.65 06/14/24 16:30 APTT 40.7 SECONDS (24.3-36.9) H 06/14/24 16:30 Sodium 137 mEq/L (136-145) 06/23/24 05:50 Potassium 4.9 mEq/L (3.5-5.1) 06/23/24 05:50 BUN 21 mg/dL (7-18) H 06/23/24 05:50 Creatinine 1.00 mg/dL (0.70-1.30) 06/23/24 05:50 Glucose 124 mg/dL (74-106) H 06/23/24 05:50 Phosphorus 3.0 mg/dL (2.5-4.9) 06/15/24 05:58 Magnesium 2.2 mg/dL (1.6-2.4) 06/17/24 04:11 Total Bilirubin 0.3 mg/dL (0.2-1.0) 06/16/24 05:28 AST < 10 U/L (15-37) L 06/16/24 05:28 ALT 15 U/L (16-61) L 06/16/24 05:28 Alkaline Phosphatase 50 U/L (45-117) 06/16/24 05:28 Home Medications: Roflumilast [Daliresp*] 500 mcg PO DAILY 30 Days #30 tab 05/20/23 Tamsulosin [Flomax*] 0.4 mg PO DAILY 06/29/23 Ipratropium/Albuterol Sulfate [Iprat-Albut 0.5-3(2.5) mg/3 ml] 3 ml IH Q6H PRN #120 amp 08/20/23 Montelukast [Singulair*] 10 mg PO DAILY 11/19/23 Fluticasone/Umeclidin/Vilanter [Trelegy Ellipta 100-62.5-25] 1 puff IH DAILY 02/07/24 Apixaban [Eliquis] 5 mg PO BID 02/17/24 Amiodarone HCl [Cordarone*] 200 mg PO DAILY 04/12/24 Amox/Clavulanate [Augmentin 875-125 Tab] 875 mg PO BID #28 tab 06/23/24 Ipratropium Neb [Atrovent*] 0.5 mg NEB [id number] amp 06/23/24 Mupirocin Calcium [Bactroban Nasal*] 1 appl JOANN BID tube 06/23/24 Nicotine [Nicoderm*] 14 mg TD DAILY 06/23/24 Spironolactone [Aldactone*] 25 mg PO BID tab 06/23/24 acetaZOLAMIDE [Acetazolamide] 250 mg PO BID #60 tab 06/23/24 predniSONE [Deltasone*] 10 mg PO BID #10 tab 06/23/24 New Medications: acetaZOLAMIDE [Acetazolamide] 250 mg PO BID #60 tab Amox/Clavulanate [Augmentin 875-125 Tab] 875 mg PO BID #28 tab Physician Discharge Instructions: Patient need appointment with dental surgery to address pre-apical tooth abscess and dental caries which is the source of his recurrent bacteremia. Followup: Meaghan Chisholm DO [Primary Care Provider] - 1-2 Weeks Time spent managing pt's care (in minutes): 40
[2024-06-23 12:35] VITALS: BP 154/65; TEMP 97.8
== END 2024-06-23 13:11 | DRG 193 ==
LOC: ER 16:10 → 2ND 19:11
PROVIDERS: ADMIT Internal Medicine Sleep Medicine; ATTEND Internal Medicine
PROC: 4A033R1 Measurement of Arterial Saturation, Peripheral, Percutaneous Approach (ICD-10-PCS; principal; 2024-06-15)
PROC: 02HV33Z Insertion of Infusion Device into Superior Vena Cava, Percutaneous Approach (ICD-10-PCS; 2024-06-21)
DX: J18.9 Pneumonia, unspecified organism (principal); I33.0 Acute and subacute infective endocarditis; J96.21 Acute and chronic respiratory failure with hypoxia; I50.32 Chronic diastolic (congestive) heart failure; J44.1 Chronic obstructive pulmonary disease with (acute) exacerbation; J44.0 Chronic obstructive pulmonary disease with (acute) lower respiratory infection; I48.20 Chronic atrial fibrillation, unspecified; R78.81 Bacteremia; I11.0 Hypertensive heart disease with heart failure; G47.33 Obstructive sleep apnea (adult) (pediatric); N40.0 Benign prostatic hyperplasia without lower urinary tract symptoms; K02.9 Dental caries, unspecified; D50.9 Iron deficiency anemia, unspecified; M27.2 Inflammatory conditions of jaws; F17.210 Nicotine dependence, cigarettes, uncomplicated; B95.1 Streptococcus, group B, as the cause of diseases classified elsewhere; Z11.52 Encounter for screening for COVID-19; Z99.81 Dependence on supplemental oxygen; Z99.89 Dependence on other enabling machines and devices; Z79.52 Long term (current) use of systemic steroids; Z79.899 Other long term (current) drug therapy; Z91.199 Patient's noncompliance with other medical treatment and regimen due to unspecified reason; Y95 Nosocomial condition
CPT/HCPCS: 36415; 36600; 71045; 71260; 74177; 80048; 80053; 80202; 81001; 82728; 82805; 82947; 83540; 83605; 83735; 83880; 84100; 84132; 84145; 84466; 84484; 85025; 85027; 85610; 85730; 87040; 87077; 87186; 87205; 87804; 87811; 93005; 93306; 93971; 94640; 94760; 96365; 96366; 97116; 97161; 97165; 97530; 99285; J0295; J0696; J1650; J1940; J2916; J2919; J3535; J7040; J7050; J7512; J7605; J7613; J7614; J7644; Q9967

== ENCOUNTER 2024-10-17 11:20 | Inpatient (IN) | payer OTHER, BC ==
[2024-10-17] MEDS ORDERED: LEVALBUTEROL 1.25 MG/3 ML NEB ONE (11:31)
[2024-10-17] MEDS ORDERED: IPRATROPIUM BROM 0.5MG/2.5ML ONE (11:31)
[2024-10-17] MEDS ORDERED: METHYLPREDNISOLONE 125 MG INJ ONE (11:31)
--- NOTE | 2024-10-17 11:59 | RAD REPORT ---
EXAM: Chest Single View HISTORY: 69 years Male DYSPNEA COMPARISON: 06/21/2024 FINDINGS: LUNGS/PLEURA: Mild opacities in lung bases bilaterally are similar to prior. CARDIAC/MEDIASTINUM: Stable size and configuration. UPPER ABDOMEN: No significant abnormality. BONES: No acute abnormality. LINES/TUBES/OTHER: N/A IMPRESSION: Mild basilar airspace disease could reflect mild pneumonia/pneumonitis or scarring.
[2024-10-17 12:01] LABS: Absolute Eosinophils 0.2 K/uL (0-0.5); Absolute Lymphocytes (CBC) 1.1 K/uL (0.7-4.9); Absolute Monocytes 0.6 K/uL (0.1-1.3); Absolute Neutrophil 4.8 K/uL (1.8-8.0); Basophils % 0.6 % (0-1.3); Eosinophils % 3.4 % (0-4.4); Hematocrit 30.1 % (39.6-49.0); Hemoglobin 9.7 g/dL (13.6-17.9); Lymphocytes % 16.1 % (15.3-44.8); MCH 25.6 pg (27.0-35.0); MCV 79.9 fL (80-100); MPV 7.6 fL (7.6-11.3); Monocytes % 9.1 % (3.3-12.3); Neutrophils % 70.8 % (41.7-73.7); Platelets 214 thou/uL (152-406); RBC Red Blood Cell Count 3.77 M/uL (4.33-5.43); Red Cell Distribution Width 17.4 % (12.1-15.2)
[2024-10-17 12:04] LABS: PT Prothrombin Time 19.2 SECONDS (10.0-13.0); PTT, Activated Partial Thromb 40.5 SECONDS (24.3-36.9); Protime INR 1.73
[2024-10-17 12:18] LABS: ALT/SGPT 15 U/L (16-61); Albumin 2.8 g/dL (3.4-5.0); Albumin/Globulin Ratio 0.9 (1.1-1.8); Alkaline Phosphatase 84 U/L (45-117); Anion Gap 5.1 mEq/L (5.0-15.0); BUN Blood Urea Nitrogen 13 mg/dL (7-18); Bicarbonate 37 mEq/L (21-32); Bilirubin Total 0.4 mg/dL (0.2-1.0); Globulin 3.2 g/dL (2.3-3.5); Glomerular Filtration Rate 98 ml/min (=/>90); Glucose Level 107 mg/dL (74-106); NT PRO-BNP 401 pg/mL (<125); Potassium 4.1 mEq/L (3.5-5.1); Sodium Level 137 mEq/L (136-145)
[2024-10-17 12:22] LABS: AST/SGOT < 10 U/L (15-37)
--- NOTE | 2024-10-17 12:37 | ER ---
Nurse's Notes [facility] Name: Randolph Mckeon Age: 69 yrs Sex: Male : 1955 Arrival Date: 10/17/2024 Time: 11:20 Bed 5 Private MD: Diagnosis: COPD/ Chronic obstructive pulmonary disease with acute lower respiratory infection;COPD/ Chronic obstructive pulmonary disease with (acute) exacerbation Presentation: 10/17 11:23 Chief complaint: EMS states: they were toned out for SOB x3-4 days. upon arrival pt was kc6 90-91% on RA but as they were pulling up into the ambulance bay the SPO2 was "in the 70's". Coronavirus screen: At this time, the client does not indicate any symptoms associated with coronavirus-19. Ebola Screen: No symptoms or risks identified at this time. Initial Sepsis Screen: Does the patient meet any 2 criteria? No. Patient's initial sepsis screen is negative. Does the patient have a suspected source of infection? No. Patient's initial sepsis screen is negative. Risk Assessment: Do you want to hurt yourself or someone else? Patient reports no desire to harm self or others. Onset of symptoms was October 17, 2024. Care prior to arrival: IV initiated. 20 GA, in the left antecubital area. 11:23 Method Of Arrival: EMS: [facility] kc6 11:23 Acuity: YANNICK 2 kc6 Historical: - Allergies: 11:25 No Known Allergies; kc6 - PMHx: 11:25 Chronic obstructive lung disease; CHF; Atrial fibrillation; Hypertension; Pneumonia; kc6 - PSHx: 11:25 hernia; cyst removal on lower left limb; kc6 - Immunization history:: Adult Immunizations up to date. - Infectious Disease History:: Denies. - Social history:: Smoking status: Patient reports the use of cigarette tobacco products, smokes one pack cigarettes per day. - Family history:: not pertinent. - Hospitalizations: : No recent hospitalization is reported. Screenin:26 [facility] ED Fall Risk Assessment (Adult) History of falling in the last 3 months, kc6 including since admission No falls in past 3 months (0 pts) Confusion or Disorientation No (0 pts) Intoxicated or Sedated No (0 pts) Impaired Gait No (0 pts) Mobility Assist Device Used No (0 pt) Altered Elimination No (0 pt) Score/Fall Risk Level 0 - 2 = Low Risk Oriented to surroundings, Maintained a safe environment, Educated pt \\T\\ family on fall prevention, incl call for assistance when getting out of bed. Abuse screen: Denies threats or abuse. Denies injuries from another. Nutritional screening: No deficits noted. Tuberculosis screening: No symptoms or risk factors identified. Assessment: 11:26 General: Appears in no apparent distress. comfortable, well groomed, well developed, kc6 Behavior is calm, cooperative, appropriate for age. Pain: Complains of pain in anterior aspect of left lateral abdomen. Neuro: Level of Consciousness is awake, alert, obeys commands, Oriented to person, place, time, situation, Appropriate for age. Cardiovascular: Denies chest pain, Heart tones S1 S2 present Capillary refill < 3 seconds Rhythm is regular. Respiratory: Reports shortness of breath at rest on exertion Airway is patent Trachea midline Respiratory effort is even, with nasal flaring, Respiratory pattern is symmetrical, tachypnea Breath sounds with wheezes bilaterally. Onset: The symptoms/episode began/occurred 3-4 days, the patient has moderate shortness of breath. GI: No signs and/or symptoms were reported involving the gastrointestinal system. : No signs and/or symptoms were reported regarding the genitourinary system. EENT: No signs and/or symptoms were reported regarding the EENT system. Derm: No signs and/or symptoms reported regarding the dermatologic system. Skin is intact, is healthy with good turgor, Skin is pink, warm \\T\\ dry. Musculoskeletal: No signs and/or symptoms reported regarding the musculoskeletal system. Circulation, motion, and sensation intact. Range of motion: intact in all extremities. 12:26 Reassessment: Patient appears in no apparent distress at this time. No changes from kc6 previously documented assessment. Patient and/or family updated on plan of care and expected duration. Pain level reassessed. Patient is alert, oriented x 3, equal unlabored respirations, skin warm/dry/pink. 13:36 Reassessment: Patient appears in no apparent distress at this time. No changes from kc6 previously documented assessment. Patient and/or family updated on plan of care and expected duration. Pain level reassessed. Patient is alert, oriented x 3, equal unlabored respirations, skin warm/dry/pink. Vital Signs: 11:23 BP 127 / 97; Pulse 66; Resp 20 S; Pulse Ox 100% on 2 lpm NC; Weight 81.65 kg (R); kc6 Height 5 ft. 11 in. (R); 13:36 BP 112 / 53; Pulse 69; Resp 18 S; Pulse Ox 97% on 2 lpm NC; kc6 11:23 Body Mass Index 25.10 (81.65 kg, 180.34 cm) 6 ED Course: 11:23 Patient arrived in ED. [facility] 11:23 Gurpreet Arshad MD is Attending Physician. rt 11:25 Triage completed. kc6 11:25 Arm band placed on. kc6 11:25 Maintain EMS IV. Dressing intact. Good blood return noted. Site clean \\T\\ dry. Gauge \\T\\ sean 6 site: 20G LAC. Flushed with 10 mL NS. Oxygen administration via nasal cannula \\T\\ 2L/min. 11:26 Attending Physician role handed off by Gurpreet Arshad MD rn 11:26 Severo Nielsen MD is Attending Physician. rn 11:26 Patient has correct armband on for positive identification. Placed in gown. Bed in low kc6 position. Call light in reach. Side rails up X 1. youth nutritional monitor on. Pulse ox on. NIBP on. Door closed. Noise minimized. Lights dimmed. Warm blanket given. Pillow given. Verbal reassurance given. 11:27 Rosemarie Whaley, RN is Primary Nurse. kc6 11:45 Inserted saline lock: 20 gauge in right forearm, using aseptic technique. Blood ty collected. Flushed with 10 mL NS. 11:45 Initial lab(s) drawn, by me, sent to lab. First set of blood cultures drawn EKG done, ty by ED staff, reviewed by Severo Nielsen MD. 11:54 Chest Single View XRAY In Process Unspecified. EDMS 12:36 Shirin Caceres MD is Hospitalizing Provider. rn 12:52 Reji Fernandez MD is Hospitalizing Provider. rn 13:36 No provider procedures requiring assistance completed. Patient admitted, IV remains in kc6 place. Administered Medications: 11:49 Drug: MethylPrednisoLONE IVP 125 mg IVP once Route: IVP; Site: left antecubital; [facility] 13:35 Follow up: Response: No adverse reaction [facility] 11:49 Drug: Levalbuterol Inhalation 1.25 mg Inhalation once Route: Inhalation; kc6 13:35 Follow up: Response: No adverse reaction; Wheezing unchanged kc6 11:49 Drug: Ipratropium Inhalation Aerosol 0.5 mg Inhalation once Route: Inhalation; kc6 13:35 Follow up: Response: No adverse reaction; Wheezing unchanged kc6 12:54 Drug: Rocephin IV 1 grams IV at calculated rate once; Given slow IV push per pharmacy kc6 instructions Route: IV; Rate: calculated rate; Site: right forearm; 13:35 Follow up: Response: No adverse reaction; IV Status: Completed infusion; IV Intake: [id number] 12:54 Drug: Zithromax IVPB 500 mg IVPB once over 1 hrs; mix in 250 mL NS Route: IVPB; Infused kc6 Over: 1 hrs; Site: right forearm; Medication: 13:37 VIS not applicable for this client. kc6 Intake: 13:35 IV: 10ml; Total: 10ml. kc6 Outcome: 12:36 Decision to Hospitalize by Provider. rn 13:36 Admitted to ER Hold. Please see [facility] for further documentation. kc6 13:36 Condition: good 13:36 Instructed on the need for admit, 17:12 Patient left the ED. Signatures: Dispatcher [employer] EDMS Severo Nielsen MD MD rn Baxter, Heather, RN RN hb Campbell, Kaitlyn, RN RN kc6 Gurpreet Arshad MD MD rt Yandell, Tylor ty
--- NOTE | 2024-10-17 12:37 | EDPHYS ---
Physician Documentation [facility] Name: Randolph Mckeon Age: 69 yrs Sex: Male : 1955 Arrival Date: 10/17/2024 Time: 11:20 Bed 5 Private MD: ED Physician Severo Nielsen HPI: 10/17 11:28 This 69 yrs old Male presents to ER via EMS with complaints of Shortness Of Breath. rn 11:28 The patient has shortness of breath with light activity. Onset: The symptoms/episode rn began/occurred yesterday. Duration: The symptoms are intermittent. The patient's shortness of breath is aggravated by exertion, light activity, supine position, talking, walking. Severity of symptoms: At their worst the symptoms were moderate in the emergency department the symptoms have improved. The patient has experienced similar episodes in the past. Patient reports shortness of breath got worse yesterday. Went to gas station and was unable to walk in and out without stopping multiple times. Reports orthopnea, dyspnea on exertion. Reports subjective fever and chills and cough productive of mucus but no blood. Patient reports inhaler is not working much lately.. Historical: - Allergies: 11: No Known Allergies; kc6 - PMHx: 11:25 Chronic obstructive lung disease; CHF; Atrial fibrillation; Hypertension; Pneumonia; kc6 - PSHx: 11:25 hernia; cyst removal on lower left limb; kc6 - Immunization history:: Adult Immunizations up to date. - Infectious Disease History:: Denies. - Social history:: Smoking status: Patient reports the use of cigarette tobacco products, smokes one pack cigarettes per day. - Family history:: not pertinent. - Hospitalizations: : No recent hospitalization is reported. ROS: 11:28 Constitutional: Positive for subjective fever and chills ENT: Negative for injury, rn pain, and discharge, Cardiovascular: Negative for chest pain, palpitations, and edema, Respiratory: Positive for shortness of breath and cough productive of mucus Abdomen/GI: Negative for abdominal pain, nausea, vomiting, diarrhea, and constipation, MS/Extremity: Negative for injury and deformity, Neuro: Negative for headache, weakness, numbness, tingling, and seizure, Exam: :28 Constitutional: This is a well developed, well nourished patient who is awake, alert, rn and in no acute distress. Cardiovascular: Regular rate and rhythm. No pulse deficits. Respiratory: Mild tachypnea, no retractions, wheezing present bilaterally, diminished at bases Abdomen/GI: Soft, non-tender MS/ Extremity: Pulses equal, no cyanosis. Neurovascular intact. Full, normal range of motion. Equal circumference. Neuro: Awake and alert, GCS 15 13:03 ECG was reviewed by the Attending Physician. rn Vital Signs: 11:23 BP 127 / 97; Pulse 66; Resp 20 S; Pulse Ox 100% on 2 lpm NC; Weight 81.65 kg (R); kc6 Height 5 ft. 11 in. (R); 13:36 BP 112 / 53; Pulse 69; Resp 18 S; Pulse Ox 97% on 2 lpm NC; kc6 11:23 Body Mass Index 25.10 (81.65 kg, 180.34 cm) [facility] MDM: 11:26 Medical Screening Exam initiated rn 12:35 Differential diagnosis: Anemia Chronic Obstructive Pulmonary Disease Myocardial rn Infarction pneumonia, Pneumothorax pulmonary edema. Data reviewed: vital signs, nurses notes, lab test result(s), EKG, radiologic studies, plain films, and as a result, I will admit patient. Consideration of Admission/Observation Patient was admitted/placed on observation. Escalation of care including admission/observation considered. Counseling: I had a detailed discussion with the patient and/or guardian regarding the historical points, exam findings, and any diagnostic results supporting the discharge/admit diagnosis, lab results, radiology results, the need for further work-up and treatment in the hospital. Response to treatment: the patient's symptoms have mildly improved after treatment, and as a result, I will admit patient. 10/17 11: Order name: Blood Culture Adult (2) rn 10/17 11:27 Order name: CBC with Diff; Complete Time: 12:32 rn 10/17 11:27 Order name: CMP; Complete Time: 12:32 rn 10/17 11:27 Order name: Lactate w/ 2H reflex if indic.; Complete Time: 12:32 10/17 11:27 Order name: Protime (+inr); Complete Time: 12:32 rn 10/17 11:27 Order name: Ptt, Activated; Complete Time: 12:32 rn 10/17 11:27 Order name: BNP; Complete Time: 12: rn 10/17 11:27 Order name: Chest Single View XRAY; Complete Time: 12: rn 10/17 11:27 Order name: EKG; Complete Time: rn 10/17 11: Order name: Accucheck; Complete Time: rn 10/17 11:27 Order name: Cardiac monitoring; Complete Time: rn 10/17 11:27 Order name: EKG - Nurse/Tech; Complete Time: rn 10/17 11: Order name: IV Saline Lock - Large Bore; Complete Time: rn 10/17 11: Order name: Labs collected and sent; Complete Time: rn 10/17 11: Order name: O2 Per Protocol; Complete Time: rn 10/17 11: Order name: O2 Sat Monitoring; Complete Time: rn 10/17 11: Order name: Vital Signs; Complete Time: rn EC:03 Rate is 65 beats/min. Rhythm is regular. QRS [place] is Normal. OK interval is prolonged. rn QRS interval is normal. QT interval is normal. No Q waves. T waves are Normal. No ST changes noted. Clinical impression: NSR w/ Non-specific ST/T Changes and 1st degree heart block. Interpreted by me. Reviewed by me. Administered Medications: 11:49 Drug: MethylPrednisoLONE IVP 125 mg IVP once Route: IVP; Site: left antecubital; kc6 13:35 Follow up: Response: No adverse reaction kc6 11:49 Drug: Levalbuterol Inhalation 1.25 mg Inhalation once Route: Inhalation; kc6 13:35 Follow up: Response: No adverse reaction; Wheezing unchanged kc6 11:49 Drug: Ipratropium Inhalation Aerosol 0.5 mg Inhalation once Route: Inhalation; kc6 13:35 Follow up: Response: No adverse reaction; Wheezing unchanged kc6 12:54 Drug: Rocephin IV 1 grams IV at calculated rate once; Given slow IV push per pharmacy kc6 instructions Route: IV; Rate: calculated rate; Site: right forearm; 13:35 Follow up: Response: No adverse reaction; IV Status: Completed infusion; IV Intake: [id number] 12:54 Drug: Zithromax IVPB 500 mg IVPB once over 1 hrs; mix in 250 mL NS Route: IVPB; Infused kc6 Over: 1 hrs; Site: right forearm; Disposition: 12:35 Critical Care:. 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 Total time: 35 rn minutes Signatures: Dispatcher [employer] EDJenny Campos Roman, MD MD rn Campbell, Kaitlyn, RN RN kc6 Chanel Christiansen RN RN kb3 Corrections: (The following items were deleted from the chart) 12:52 12:36 Shirin Caceres rn rn 14:42 12:36 Telemetry/MedSurg (Inpatient) rn kb3 14:42 12:36 rn kb3 16:08 14:42 [facility] ER HOLD kb3 bd 16:08 14:42 ERHOLD- kb3 bd
[2024-10-17] MEDS ORDERED: CEFTRIAXONE 1000 MG/VIAL ONE (12:42)
[2024-10-17] MEDS ORDERED: NA CHLORIDE 0.9% 250 ML ONE (12:42)
[2024-10-17] MEDS ORDERED: AZITHROMYCIN 500 MG INJ IVPB ONE (12:42)
[2024-10-17] MEDS ORDERED: ONDANSETRON 4 MG/2 ML VIAL IV PRN (14:49)
[2024-10-17] MEDS ORDERED: ACETAMINOPHEN 500 MG TAB PO PRN (14:49)
[2024-10-17 14:57] VITALS: BMI 25.1
[2024-10-17] MEDS: METHYLPREDNISOLONE 40 MG INJ IV SCH (19:03)
[2024-10-17] MEDS: CEFTRIAXONE 1,000 MG in NA CHLORIDE 0.9% 50 ML IVPB SCH (20:57)
[2024-10-17] MEDS: METOPROLOL TAR 25 MG TAB PO SCH (22:56)
[2024-10-17] MEDS: APIXABAN 5 MG TABLET PO SCH (22:56)
[2024-10-17] MEDS: acetaZOLAMIDE 250 MG TAB PO SCH (22:56)
[2024-10-18] MEDS: PANTOPRAZOLE 40MG TABLET PO SCH (06:06)
[2024-10-18 06:24] LABS: Absolute Lymphocytes (CBC) 0.4 K/uL (0.7-4.9); Absolute Monocytes 0.1 K/uL (0.1-1.3); Absolute Neutrophil 3.4 K/uL (1.8-8.0); Basophils % 0.1 % (0-1.3); Hematocrit 30.9 % (39.6-49.0); MCH 25.7 pg (27.0-35.0); MCHC 32.5 g/dL (32.0-36.0); MCV 79.2 fL (80-100); MPV 7.3 fL (7.6-11.3); Monocytes % 2.3 % (3.3-12.3); Neutrophils % 87.6 % (41.7-73.7); Platelets 222 thou/uL (152-406); Red Cell Distribution Width 16.8 % (12.1-15.2)
[2024-10-18 06:39] LABS: Anion Gap 5.4 mEq/L (5.0-15.0); Potassium 4.4 mEq/L (3.5-5.1)
[2024-10-18 07:52] LABS: Blood Morphology Comment NOT SEEN (NOT SEEN); Platelet Estimate ADEQ; White Blood Cell Scan OK (OK)
[2024-10-18] MEDS: ALBUTEROL 2.5 MG/3 ML NEB SOL NEB PRN (08:00)
[2024-10-18] MEDS: IPRATROPIUM BROM 0.5MG/2.5ML NEB PRN (08:01)
[2024-10-18] MEDS: MONTELUKAST 10 MG TAB PO SCH (08:46)
[2024-10-18] MEDS: ASPIRIN EC 81 MG TAB PO SCH (08:46)
[2024-10-18] MEDS: TAMSULOSIN 0.4 MG SR CAP PO SCH (08:46)
[2024-10-18] MEDS: SPIRONOLACTONE 25 MG TABLET PO SCH (08:47)
[2024-10-18] MEDS: AMIODARONE HCL 200 MG TAB PO SCH (08:47)
[2024-10-18] MEDS: AZITHROMYCIN IV 250 MG in NA CHLORIDE 0.9% 250 ML IVPB SCH (09:55)
--- NOTE | 2024-10-18 22:41 | HP ---
Date of Admission: 10/18/2024 Chief Complaint: Cough, congestion, shortness of breath. History Of Present Illness: This is a 69-year-old male patient, who came to see me last week for ini tial office visit, was doing fine in his usual normal state of health until last couple of days or so . He is having increasing problem with cough, chest congestion, coughing up some colored mucus, shor tness of breath, and wheezing. With this complaints, his symptoms continued to get worse, so he came into emergency room yesterday and after he was evaluated, he was admitted to the hospital. This mor amalia when I saw him, he was feeling somewhat better compared to yesterday. Allergies: NO KNOWN ALLERGIES. Medications: Acetazolamide 250 mg 2 times a day, albuterol inhaler 2 puffs 4 times a day as needed, amiodarone 200 mg daily, Eliquis 5 mg 2 times a day, amlodipine 10 mg daily, Trelegy inhaler 1 puff d aily, metoprolol 25 mg takes half a tablet 2 times a day, omeprazole 20 mg daily, Daliresp 500 mcg da cleo, tamsulosin 0.4 mg daily, spironolactone 25 mg daily, montelukast 10 mg daily, magnesium oxide 40 0 mg daily, and oxygen 3 L/minute per nasal cannula. Review of Systems: Respiratory: As mentioned above. All other systems reviewed and negative. Past Medical History: Significant for seizure disorder, type 2 diabetes mellitus, COPD which is oxyg en dependent, hypertension, hyperlipidemia, chronic diastolic heart failure, chronic atrial fibrillat ion, chronic kidney disease stage IIIA, chronic respiratory failure with hypoxia, hyponatremia. 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 Family History: Father , had heart disease. Mother had kidney cancer and hypertension. Brother is alive and well. Sister, details unknown. Social History: Positive for smoking about 1 pack per day. Use of alcohol, negative, he quit using alcohol in 2022. Physical Examination: Vital Signs: This morning, temperature 97.9, pulse 74, respiratory rate 18, blood pressure 127/66, o xygen saturation 96% on 2 L nasal cannula oxygen. Height 5 feet 11 inches, weight 180 pounds. General: Awake, alert, oriented, not in distress. HEENT: Head atraumatic, normocephalic. Conjunctivae nonerythematous. Sclerae white. Mouth, no thr ush or edema noted. Ears/Nose, no mass, lesion, discharge noted. Neck: Supple. No JVD, lymph nodes, bruit, thyromegaly noted. Lungs: Presence of some scattered wheezing noted with presence of basal rales. Not using accessory muscles of respiration. Heart: Normal heart sounds, no murmur or gallop. Abdomen: Soft, bowel sounds normal. No guarding, rigidity, tenderness, mass, hepatosplenomegaly, dis tention, or bruit noted. Extremities: No leg edema. No calf tenderness. Skin: No rash, ulcer, cellulitis. Lymphatics: No lymph node enlargement in neck, supraclavicular, infraclavicular region. Neuro: No focal neurological deficit. Chest: Unremarkable. External Genitalia: Deferred. Rectal: Deferred. Laboratory Data: Chest x-ray shows bilateral basilar opacities. Yesterday, WBC 6.8, hemoglobin 9.7, platelets 214. Today, WBC 3.8, hemoglobin 10, platelets 222. Chemistry yesterday, sodium 137, pota ssium 4.1, chloride 99, bicarb 37, BUN 13, creatinine 0.78, glucose 107. Liver function tests unrema rkable. This morning, sodium 138, potassium 4.4, chloride 101, bicarb 36, BUN 12, creatinine 0.70, g lucose 173. Yesterday, proBNP was 401, today it is 958. Today, one of the blood culture bottles sta rted to grow gram-negative rods. Impression: 1. Pneumonia. 2. Acute exacerbation of COPD. 3. Chronic respiratory failure with hypoxia. 4. Chronic respiratory failure with hypercapnia. 5. Anemia, unspecified. 6. Type 2 diabetes mellitus. 7. Hypertension. 8. Chronic atrial fibrillation. 9. Hyperlipidemia. 10. Chronic diastolic heart failure. 11. Chronic anticoagulation therapy. 12. Benign prostatic hypertrophy with lower urinary tract symptoms. 13. Seizure disorder. 14. Hyponatremia. 15. Chronic kidney disease stage IIIA. Plan: We will go ahead and admit the patient to hospital for further evaluation and management of th is problem. The patient is appropriate for inpatient and is expected to spend 2 midnights in [facility]. For pneumonia, we will continue ceftriaxone and azithromycin which was started in emergency room. For acute exacerbation of COPD, we will continue nebulizer treatment oxygen and steroid per order. For respiratory failure with hypercapnia, the patient is on acetazolamide which we will continue marnie t. For respiratory failure with hypoxia, he is on chronic supplemental home oxygen and we will pia nue that at 2 L/minute. For chronic diastolic failure and hypertension, he is on metoprolol which we will continue that. No need for further intervention. For diabetes, he does not take any medicatio n and will not require any intervention at this time. We will continue his diuretic therapy, spirono lactone for his chronic heart failure and we will continue to monitor that. If necessary, consider o ther intervention. The patient continues to smoke and I have recommended him to quit smoking. I tawanda l see him tomorrow for followup. Total time spent today 80 minutes including review of office visit record from 10/11/2024, communicat ion with emergency room physician, review of emergency room visit record, and performing today's eval uation and management. FERNANDO/MODL Voice ID: [id number]
[2024-10-19] MEDS: DULERA 200/5 (MOMETASONE/FORMOTEROL) INHALER IH SCH (10:05)
--- NOTE | 2024-10-19 16:54 | EKG ---
Test Date: 2024-10-17 Test Time: 11:36:15 Principal Security Architect: GABRIEL MEASUREMENT RESULTS: Intervals: Rate: 65 NC: 216 QRSD: 104 QT: 432 QTc: 449 [place]: P: 64 NC: 216 QRS: 24 T: 42 INTERPRETIVE STATEMENTS: Sinus rhythm with 1st degree AV block Incomplete right bundle branch block Anterior infarct, age undetermined Abnormal ECG Compared to ECG 06/14/2024 16:25:02 Incomplete right bundle-branch block now present Myocardial infarct finding now present Electronically Signed On 10-19-24 16:46:44 EDGE BANDER OPERATOR by Willie Leonard
--- NOTE | 2024-10-19 21:32 | PN ---
Date of Progress Note: 10/19/2024 Subjective: The patient was seen this morning for followup. No new complaints or problems reported by the patient. He was lying in bed, not in distress, overall feels better. Still has cough, conges tion, and wheezing, but overall feeling better. Objective: Vital Signs: Reviewed. HEENT: Unremarkable. Lungs: Bilateral good equal air entry. Presence of scattered wheezing. No rales, but overall signi ficantly better today than yesterday. Heart: Sounds normal. Abdomen: Soft. Bowel sounds normal. No guarding, rigidity, tenderness, distention. Extremities: No leg edema. Impression: 1. Acute exacerbation of COPD. 2. Pneumonia. 3. Hypertension. 4. Chronic respiratory failure with hypoxia. 5. Chronic respiratory failure with hypercapnia. Plan: We will continue current medication. Continue antibiotic, diuretic therapy, oxygen replacemen t therapy, steroid, and nebulizer treatment. The patient does have oxygen concentrator for home use, but he does not have any portable oxygen, so after I found that out today, Social Service consultati on was requested to make arrangements for portable oxygen concentrator device as the patient will nee d to use his oxygen all the time. I will see him tomorrow for followup, possible discharge to go home in next 1 or 2 days. FERNANDO/MODL Voice ID: [id number] Report ID: [id number]
--- NOTE | 2024-10-20 11:02 | RAD REPORT ---
Procedure: Chest Single View HISTORY: Cough COMPARISON: October 17, 2024 FINDINGS: No change in mild bibasilar lung opacities. No significant pleural effusion noted. The heart is normal size. IMPRESSION: No change in mild bibasilar lung opacities which may indicate mild pneumonia
[2024-10-20] MEDS: predniSONE 20 MG TAB PO SCH (20:30)
[2024-10-21 10:10] VITALS: O2SAT 96
--- NOTE | 2024-10-21 10:53 | PN ---
Date of Progress Note: 10/20/2024 Subjective: The patient was seen this morning for followup. No new complaints or problems reported by him. Lying in bed. Not in any distress, on nasal cannula oxygen, maintaining adequate oxygenatio n. Objective: Vital Signs: Reviewed. HEENT: Unremarkable. Lungs: Clear to auscultation. No rales. Minimal wheezing which is significantly better than before . Not using accessory muscles of respiration. Heart: Sounds normal. Abdomen: Soft. Bowel sounds normal. No guarding, rigidity, tenderness, distention. Extremities: No leg edema. Laboratory Data: Chest x-ray done today. Results reviewed. Impression: 1. Pneumonia. 2. Acute exacerbation of chronic obstructive pulmonary disease. 3. Chronic respiratory failure with hypoxia. 4. Chronic respiratory failure with hypercapnia. Plan: We will go ahead and continue current antibiotics, steroids, oxygen, and nebulizer treatment. Continue current inhaler. Overall, patient's condition has improved significantly. He has oxygen c oncentrator for home use, but does not have a portable oxygen concentrator which was ordered and hope fully our plan is to discharge him to go home tomorrow. FERNANDO/MODL Voice ID: [id number] Report ID: [id number]
--- NOTE | 2024-10-21 10:58 | DS ---
Date of Discharge: 10/21/2024 Disposition: Discharged to go home. Physical Examination: HEENT: Unremarkable. Lungs: Clear to auscultation. No wheezing, no rales. Cardiac: Heart sounds normal. Abdomen: Soft. Bowel sounds normal. No guarding, rigidity, tenderness, distention. Extremities: No leg edema. Laboratory Data: Upon admission, WBC 6.8, hemoglobin 9.7, platelets 214. Day after admission, WBC 3 .8, hemoglobin 10, platelets 222. For chemistry upon admission: Sodium 137, potassium 4.1, chloride 99, bicarb 37, BUN 13, creatinine 0.78, glucose 107. Lactic acid 0.9. Liver function tests unremar kable. ProBNP 401. Day after admission: Sodium 138, potassium 4.4, chloride 101, bicarb 36, BUN 12 , creatinine 0.70, glucose 173. ProBNP 958. Discharge Medications And Instructions: 1. Continue all prior home medications. 2. Start following new medications: a. Cefuroxime 250 mg take 1 tablet by mouth 2 times a day with food for 1 week. b. Prednisone 10 mg take 2 tablets by mouth 2 times a day for 4 days, then 2 tablets by mouth gadiel ly for 4 days, then 1 tablet by mouth daily for 4 days, then half a tablet by mouth daily for 4 days, then stop; take it with food. 3. Follow up at my office next week on 10/26/2024. 4. Use oxygen 3 L/minute per nasal cannula for 1 week, then lower it down to 2 L/minute. Hospital Course: This is a 69-year-old male patient who was admitted to the hospital with cough, con gestion, shortness of breath. Please see dictated H and P for more information. After patient was e valuated in the emergency room, he was admitted to the hospital with pneumonia and acute exacerbation of COPD. The patient was started on oxygen nebulizer treatment, IV steroid, and IV antibiotics. Ov syl, his condition has improved over period of this hospitalization. His wheezing and shortness of breath have improved. Physical therapy was consulted and arrangements were made for social service to assist him with home health care and home physical therapy. Upon further questioning, patient inf ormed me that he has oxygen concentrator for home use, but does not have portable oxygen, so this was requested to be arranged by social service and he already has his portable oxygen available at [facility] for him to use it and I have instructed him to use his oxygen at 3 L/minute per nasal cannula as campos bee is currently using it for next 1 week and then try to drop it down to 2 L/minute. His blood cultur e came back positive growing gram-negative rods and it was E coli. It is sensitive to this ceftriaxo ne that he has received in the hospital. Final Diagnoses: 1. Sepsis, organism E coli. 2. Pneumonia. 3. Acute exacerbation of chronic obstructive pulmonary disease. 4. Chronic respiratory failure with hypoxia. 5. Chronic respiratory failure with hypercapnia. 6. Anemia, unspecified. 7. Type 2 diabetes mellitus. 8. Chronic atrial fibrillation. 9. Hyperlipidemia. 10. Chronic diastolic heart failure. 11. Chronic anticoagulation therapy. 12. Benign prostatic hypertrophy with lower urinary tract symptoms. 13. Seizure disorder. 14. Hyponatremia. 15. Chronic kidney disease stage 3A. Total time spent today 40 minutes. FERNANDO/MODL Voice ID: [id number] Report ID: [id number]
[2024-10-21 12:16] VITALS: BP 113/61; TEMP 97.5
== END 2024-10-21 13:23 | disposition home or self-care (01) | DRG 871 ==
LOC: ER 11:20 → ERHOLD 14:34 → 4TH 18:26
PROVIDERS: ADMIT Internal Medicine; ATTEND Internal Medicine
DX: A41.51 Sepsis due to Escherichia coli [E. coli] (principal); J18.9 Pneumonia, unspecified organism; J44.1 Chronic obstructive pulmonary disease with (acute) exacerbation; I13.0 Hypertensive heart and chronic kidney disease with heart failure and stage 1 through stage 4 chronic kidney disease, or unspecified chronic kidney disease; I48.20 Chronic atrial fibrillation, unspecified; I50.32 Chronic diastolic (congestive) heart failure; J96.12 Chronic respiratory failure with hypercapnia; J96.11 Chronic respiratory failure with hypoxia; E87.1 Hypo-osmolality and hyponatremia; J44.0 Chronic obstructive pulmonary disease with (acute) lower respiratory infection; N18.31 Chronic kidney disease, stage 3a; D63.1 Anemia in chronic kidney disease; E78.5 Hyperlipidemia, unspecified; N40.1 Benign prostatic hyperplasia with lower urinary tract symptoms; G40.909 Epilepsy, unspecified, not intractable, without status epilepticus; F17.210 Nicotine dependence, cigarettes, uncomplicated; Z79.01 Long term (current) use of anticoagulants; Z90.49 Acquired absence of other specified parts of digestive tract; Z79.899 Other long term (current) drug therapy
CPT/HCPCS: 36415; 71045; 80048; 80053; 83605; 83880; 85025; 85610; 85730; 87040; 87077; 87186; 87205; 93005; 94640; 94760; 97116; 97161; 97530; 99285; J0696; J2919; J3535; J7050; J7512; J7613; J7614; J7644

== ENCOUNTER 2024-10-26 16:58 | Inpatient (IN) | payer OTHER, BC ==
[2024-10-26] MEDS ORDERED: ALBUTEROL 2.5 MG/3 ML NEB SOL ONE (17:59)
[2024-10-26] MEDS ORDERED: IPRATROPIUM BROM 0.5MG/2.5ML ONE (17:59)
--- NOTE | 2024-10-26 18:14 | RAD REPORT ---
EXAMINATION: ONE VIEW CHEST XR CLINICAL INDICATION: Male, 69 years old.,DYSPNEA TECHNIQUE: Frontal chest projection is submitted. Examination is limited by patient positioning and t echnique. COMPARISON: 10/20/2024 FINDINGS: Stable. Hilar interstitial prominence and bibasilar opacities worse on the left, although suboptimal inspiratory effort somewhat limits evaluation. No pneumothorax or sizable effusion. The heart is normal in size. Mediastinal contours are unremarkable. IMPRESSION: Stable perihilar and bibasilar findings which may reflect edema or pneumonitis.
[2024-10-26 18:27] LABS: Absolute Eosinophils 0.1 K/uL (0-0.5); Absolute Monocytes 0.8 K/uL (0.1-1.3); Absolute Neutrophil 9.9 K/uL (1.8-8.0); Basophils % 0.1 % (0-1.3); Hematocrit 37.2 % (39.6-49.0); Hemoglobin 11.5 g/dL (13.6-17.9); Lymphocytes % 8.4 % (15.3-44.8); MCH 25.4 pg (27.0-35.0); MCHC 30.8 g/dL (32.0-36.0); MCV 82.5 fL (80-100); MPV 7.1 fL (7.6-11.3); Monocytes % 6.7 % (3.3-12.3); Neutrophils % 83.8 % (41.7-73.7); Platelets 226 thou/uL (152-406); RBC Red Blood Cell Count 4.51 M/uL (4.33-5.43); Red Cell Distribution Width 17.6 % (12.1-15.2)
[2024-10-26 18:32] LABS: PT Prothrombin Time 13.5 SECONDS (10.0-13.0); PTT, Activated Partial Thromb 34.4 SECONDS (24.3-36.9); Protime INR 1.19
[2024-10-26 18:37] LABS: Anion Gap 5.1 mEq/L (5.0-15.0); Magnesium 2.3 mg/dL (1.6-2.4); Potassium 4.1 mEq/L (3.5-5.1); Troponin High Sensitivity 8.6 pg/mL (<58.9)
[2024-10-26 18:44] LABS: Influenza A Ag Negative; Influenza B Ag Negative; SARS-CoV-2 Antigen Rapid Res Negative (Negative)
--- NOTE | 2024-10-26 20:46 | RAD REPORT ---
EXAM: CT Thorax W/ Con CLINICAL INDICATION: Male, 69 years old. DYSPNEA TECHNIQUE: Routine CT scan of the chest with intravenous contrast. One or more of the following dose reduction techniques were used: Automated exposure control, adjustment of the mA and/or kV according to patient size, and/or iterative reconstruction. Unless otherwise specified, incidental fi ndings do not require dedicated imaging follow-up. COMPARISON: 02/13/2024 CT chest. Same date chest radiograph. FINDINGS: LUNGS: Dependent segmental opacities involving the right lower lobe, with volume loss. Platelike left basal opacification suggesting atelectasis. Mild air bronchogram in the right. No nodules. PLEURA: Trace right pleural effusion. Elevation of the right diaphragm. No pneumothorax. MEDIASTINUM AND LYMPH NODES: No mediastinal mass or fluid collection. Normal size mediastinal, hilar, and axillary lymph nodes. OSSEOUS STRUCTURES AND CHEST WALL: Progressive superior endplate compression deformity at T9. UPPER ABDOMEN: Partially included right superior renal pole 4.7 cm cyst, grossly stable. IMPRESSION: Dependent segmental right lower lobe opacities with trace effusion, favoring atelectasis given the de gree of volume loss, although superimposed pneumonia would be difficult to exclude. Progressive superior endplate compression deformity at T9, of indeterminate age.
[2024-10-26 21:16] LABS: Blood Gas Oxyhemoglobin 92.5 % (94-97); Blood O2 Saturation 96.8 % (92-98.5)
[2024-10-26 21:17] LABS: Arterial Blood Carboxyhemoglob 2.7 % (0-1.5); Blood Gas THB 10.3 g/dl (12-18)
--- NOTE | 2024-10-26 21:18 | EDPHYS ---
Physician Documentation [facility] Name: Randolph Mckeon Age: 69 yrs Sex: Male : 1955 Arrival Date: 10/26/2024 Time: 16:58 Bed 15 Private MD: ED Physician Gurpreet Arshad HPI: 10/26 17:48 This 69 yrs old Male presents to ER via EMS with complaints of Shortness Of Breath. sb4 18:31 Patient reports shortness of breath at rest. States he was discharged from here sb4 recently after treatment of COPD and pneumonia. States he does have home oxygen and he was on his way to his follow-up appointment when he started feeling like he could not catch his breath. He reports compliance with his steroids and antibiotics. Historical: - Allergies: 17:05 No Known Allergies; aa5 - PMHx: 17:05 Atrial fibrillation; CHF; Chronic obstructive lung disease; COPD; Hypertension; aa5 Pneumonia; - PSHx: 17:05 cyst removal on lower left limb; hernia; aa5 - Immunization history:: Adult Immunizations up to date, Flu vaccine is up to date. - Infectious Disease History:: Denies. - Social history:: Smoking status: Patient reports the use of cigarette tobacco products, smokes one pack cigarettes per day. Patient/guardian denies using alcohol, street drugs, IV drugs. ROS: 18:31 Constitutional: Negative for fever, chills, and weight loss, sb4 18:31 Respiratory: Positive for cough, dyspnea on exertion, shortness of breath, 18:31 All other systems are negative, Exam: 18:31 Constitutional: This is a well developed, well nourished patient who is awake, alert, sb4 and in no acute distress. Head/Face: Normocephalic, atraumatic. Eyes: Extra-ocular motions intact. Periorbital areas with no swelling, redness, or edema. ENT: Mucous membranes moist. Cardiovascular: Regular rate and rhythm with a normal S1 and S2. Abdomen/GI: Soft, non-tender, no distension. Skin: Warm, dry with normal turgor. Normal color with no rashes, no lesions, and no evidence of cellulitis. 18:31 Respiratory: the patient does not display signs of respiratory distress, Respirations: normal, Breath sounds: wheezing: expiratory is heard diffusely, Vital Signs: 17:05 BP 125 / 66; Pulse 59; Resp 22 S; Temp 97.8(TE); Pulse Ox 100% on 2 lpm NC; aa5 18:30 BP 114 / 50; Pulse 57; Resp 19; Pulse Ox 97% on 3 lpm NC; cm10 19:15 BP 105 / 63; Pulse 70; Resp 19; Pulse Ox 98% on 3 lpm NC; cm10 19:30 BP 110 / 58; Pulse 67; Resp 18; Pulse Ox 98% on 3 lpm NC; cm10 22:14 BP 113 / 49; Pulse 65; Resp 19; Pulse Ox 99% on 3 lpm NC; cm10 22:30 BP 99 / 67; Pulse 67; Resp 24; Pulse Ox 100% on 3 lpm NC; jj7 23:21 BP 117 / 52; Pulse 63; Resp 18; Pulse Ox 99% on 3 lpm NC; jj7 MDM: 17:09 Medical Screening Exam initiated sb4 23:09 Data reviewed: vital signs, nurses notes, EMS record, lab test result(s), EKG, sb4 radiologic studies, and as a result, I will admit patient. Consideration of Admission/Observation Patient was admitted/placed on observation. Counseling: I had a detailed discussion with the patient and/or guardian regarding the historical points, exam findings, and any diagnostic results supporting the discharge/admit diagnosis, lab results, radiology results, the need for further work-up and treatment in the hospital. 10/26 17:11 Order name: BMP; Complete Time: 18:40 4 10/26 17:11 Order name: Blood Culture Adult (2) sb4 10/26 17:11 Order name: CBC with Diff; Complete Time: 18:30 sb4 10/26 17:11 Order name: Magnesium; Complete Time: 18:40 sb4 10/26 17:11 Order name: NT PRO-BNP; Complete Time: 18:40 sb4 10/26 17:11 Order name: PT-INR; Complete Time: 18:34 sb4 10/26 17:11 Order name: Ptt, Activated; Complete Time: 18:34 sb4 10/26 17:11 Order name: Troponin HS; Complete Time: 18:40 4 10/26 17:11 Order name: COVID-19 Ag + Flu A+B Ag; Complete Time: 18:54 sb4 10/26 18:41 Order name: ABG; Complete Time: 21:20 sb4 10/27 02:12 Order name: Urinalysis w/ reflexes EDMS 10/27 02:12 Order name: Basic Metabolic Panel EDMS 10/27 02:12 Order name: Basic Metabolic Panel EDMS 10/27 02:12 Order name: Basic Metabolic Panel EDMS 10/27 02:12 Order name: CBC with Automated Diff EDMS 10/27 02:12 Order name: CBC with Automated Diff EDMS 10/27 02:12 Order name: CBC with Automated Diff EDMS 10/27 02:14 Order name: C-Reactive Protein; Complete Time: 13:08 EDMS 10/27 02:14 Order name: Procalcitonin; Complete Time: 13:08 EDMS 10/27 02:21 Order name: D-Dimer; Complete Time: 13:08 EDMS 10/26 17:11 Order name: XRAY CXR (1 view); Complete Time: 18:15 sb4 10/26 19:23 Order name: Chest W/ Con CT; Complete Time: 20:48 sb4 10/26 17:11 Order name: EKG; Complete Time: 17:11 sb4 10/27 02:12 Order name: CONS Physician Consult EDMS 10/26 17:11 Order name: Cardiac monitoring; Complete Time: 18:14 sb4 10/26 17:11 Order name: EKG - Nurse/Tech; Complete Time: 18:14 sb4 10/26 17:11 Order name: IV Saline Lock; Complete Time: 18:14 sb4 10/26 17:11 Order name: Labs collected and sent; Complete Time: 18:14 sb4 10/26 17:11 Order name: O2 Per Protocol; Complete Time: 18:14 sb4 10/26 17:11 Order name: O2 Sat Monitoring; Complete Time: 18:14 sb4 EC:57 Rate is 57 beats/min. Rhythm is regular, Sinus bradycardia. [place] interval is normal at sb4 176 msec. QRS interval is normal at 102 msec. QT interval is normal at 446 msec. No Q waves. T waves are Normal. No ST changes noted. Clinical impression: No evidence of ischemia. Interpreted by me. Reviewed by me. Administered Medications: 18:14 Drug: DuoNeb Nebulize (3:1) (2.5 mg - 0.5 mg) 3 ml Nebulizer once Route: Nebulizer; cm10 18:45 Follow up: Response: No adverse reaction cm10 Disposition Summary: 10/26/24 21:17 Hospitalization Ordered Notes: Hospitalization Status: Inpatient Admission sb4 Provider: Shirin Caceres sb4 Condition: Fair sb4 Problem: new sb4 Symptoms: are unchanged sb4 Bed/Room Type: Standard sb4 Location: Telemetry/MedSurg (Inpatient)(10/27/24 14:01) [facility] Room Assignment: [facility](10/27/24 14:01) [facility] Diagnosis - Acute respiratory failure with hypoxia and hypercapnia sb4 Forms: - Medication Reconciliation Form sb4 - SBAR form sb4 - Leadership Thank You Letter sb4 Addendum: 10/28/2024 19:23 Co-signature as Attending Physician, Gurpreet Arshad MD I reviewed the patient's care r t provided by the Advanced Practice Provider and agree with the diagnosis and treatment plan. Signatures: Dispatcher [employer] Africa Willard, SAMEER RN aa5 Merlin Loaiza RN RN jj7 Velvet Haynes, PA-C PA-C sb4 Gurpreet Arshad MD MD rt Stephania Elizabeth bc6 Salome Forrest RN RN cm10 Carmela Vazquez Corrections: (The following items were deleted from the chart) 10/26 17:11 17:11 BASIC METABOLIC PANEL+C.LAB.BRZ ordered. EDMS EDMS 17:11 17:11 BLOOD CULTURE*+BA.LAB.BRZ ordered. EDMS EDMS 17:11 17:11 CBC+H.LAB.BRZ ordered. EDMS EDMS 17:11 17:11 MAGNESIUM+C.LAB.BRZ ordered. EDMS EDMS 17:11 17:11 PROBNP+C.LAB.BRZ ordered. EDMS EDMS 17:11 17:11 PROTIME (+INR)+COAG.LAB.BRZ ordered. EDMS EDMS 17:11 17:11 PTT, ACTIVATED+COAG.LAB.BRZ ordered. EDMS EDMS 17:11 17:11 Troponin High Sensitivity+C.LAB.BRZ ordered. EDMS EDMS 17:11 17:11 COVID-19 Ag + Flu A+B Ag+I.LAB.BRZ ordered. EDMS EDMS 18:41 18:41 Arterial Blood Gas+RC.LAB.BRZ ordered. EDMS EDMS 19:23 19:23 Thorax W/ Con+CT.RAD.BRZ ordered. EDMS EDMS 10/27 01:36 03 21:17 Telemetry/MedSurg (Inpatient) sb4 vk 10/27 01:36 10/26 21:17 [facility] vk 10/27 14:01 01:36 [facility] ER HOLD vk bc6 14:01 01:36 ERHOLD- vk bc6
--- NOTE | 2024-10-26 21:18 | ER ---
Nurse's Notes [facility] Name: Randolph Mckeon Age: 69 yrs Sex: Male : 1955 Arrival Date: 10/26/2024 Time: 16:58 Bed 15 Private MD: Diagnosis: Acute respiratory failure with hypoxia and hypercapnia Presentation: 10/26 17:05 Chief complaint: EMS states: fatigue and SOB, O2 sat was 91-92% on home O2, up to 99% aa5 via 4 L NC en route. Coronavirus screen: shortness of breath. Ebola Screen: Patient denies travel to an Ebola-affected area in the 21 days before illness onset. Initial Sepsis Screen: Does the patient meet any 2 criteria? No. Patient's initial sepsis screen is negative. Does the patient have a suspected source of infection? No. Patient's initial sepsis screen is negative. Risk Assessment: Do you want to hurt yourself or someone else? Patient reports no desire to harm self or others. Onset of symptoms was October 26, 2024. 17:05 Acuity: YANNICK 3 aa5 17:05 Method Of Arrival: EMS: [facility] aa5 Triage Assessment: 10/27 14:39 General: Appears in no apparent distress. comfortable, Behavior is calm, cooperative, cm10 appropriate for age. Respiratory: the patient reports symptoms have resolved. 14:39 Respiratory: Onset: The symptoms/episode began/occurred suddenly. cm10 Historical: - Allergies: 10/26 17:05 No Known Allergies; aa5 - PMHx: 17:05 Atrial fibrillation; CHF; Chronic obstructive lung disease; COPD; Hypertension; aa5 Pneumonia; - PSHx: 17:05 cyst removal on lower left limb; hernia; aa5 - Immunization history:: Adult Immunizations up to date, Flu vaccine is up to date. - Infectious Disease History:: Denies. - Social history:: Smoking status: Patient reports the use of cigarette tobacco products, smokes one pack cigarettes per day. Patient/guardian denies using alcohol, street drugs, IV drugs. Screenin:15 [facility] ED Fall Risk Assessment (Adult) History of falling in the last 3 months, cm10 including since admission No falls in past 3 months (0 pts) Confusion or Disorientation No (0 pts) Intoxicated or Sedated No (0 pts) Impaired Gait No (0 pts) Mobility Assist Device Used No (0 pt) Altered Elimination No (0 pt) Score/Fall Risk Level 0 - 2 = Low Risk Oriented to surroundings, Maintained a safe environment, Hourly rounding (assess needs \T\ fall precautionary measures) done. Abuse screen: Denies threats or abuse. Denies injuries from another. Nutritional screening: No deficits noted. Tuberculosis screening: No symptoms or risk factors identified. Assessment: 17:55 General: Appears uncomfortable, Behavior is calm, cooperative. Pain: Denies pain. cm10 Neuro: No deficits noted. Level of Consciousness is awake, alert, obeys commands, Oriented to person, place, time, situation, Appropriate for age. Cardiovascular: Patient's skin is warm and dry. Rhythm is regular. Respiratory: No deficits noted. Reports shortness of breath Airway is patent Respiratory effort is even, unlabored, Respiratory pattern is regular, symmetrical, Breath sounds with wheezes bilaterally. 20:45 Reassessment: Patient appears in no apparent distress at this time. No changes from cm10 previously documented assessment. Patient and/or family updated on plan of care and expected duration. Pain level reassessed. Patient is alert, oriented x 3, equal unlabored respirations, skin warm/dry/pink. 22:30 Reassessment: ASSUMED CARE OF PT. PT SLEEPING. VS STABLE NO DISTRESS NOTED. jj7 23:21 General: Appears in no apparent distress. comfortable, Behavior is calm, cooperative, jj7 appropriate for age. Respiratory: No deficits noted. Airway is patent Respiratory effort is even, unlabored, Respiratory pattern is regular, symmetrical. Vital Signs: 17:05 BP 125 / 66; Pulse 59; Resp 22 S; Temp 97.8(TE); Pulse Ox 100% on 2 lpm NC; aa5 18:30 BP 114 / 50; Pulse 57; Resp 19; Pulse Ox 97% on 3 lpm NC; cm10 19:15 BP 105 / 63; Pulse 70; Resp 19; Pulse Ox 98% on 3 lpm NC; cm10 19:30 BP 110 / 58; Pulse 67; Resp 18; Pulse Ox 98% on 3 lpm NC; cm10 22:14 BP 113 / 49; Pulse 65; Resp 19; Pulse Ox 99% on 3 lpm NC; cm10 22:30 BP 99 / 67; Pulse 67; Resp 24; Pulse Ox 100% on 3 lpm NC; jj7 23:21 BP 117 / 52; Pulse 63; Resp 18; Pulse Ox 99% on 3 lpm NC; jj7 ED Course: 17:04 Patient arrived in ED. aa5 17:04 Arm band placed on Patient placed in an exam room, on a stretcher. aa5 17:07 Triage completed. aa5 17:08 Velvet Haynes PA-C is PHCP. sb4 17:08 Gurpreet Arshad MD is Attending Physician. sb4 17:37 Salome Forrest, SAMEER is Primary Nurse. cm10 17:39 XRAY CXR (1 view) In Process Unspecified. EDMS 17:55 Patient has correct armband on for positive identification. Placed in gown. Bed in low cm10 position. Side rails up X2. 17:55 Provided Education on: ER process and procedure.. Client placed on continuous cardiac cm10 and pulse oximetry monitoring. NIBP monitoring applied. monitoring specialist on. 17:55 Inserted saline lock: 20 gauge in left forearm, using aseptic technique. Blood cm10 collected. Flushed with 10 mL NS. 17:55 Initial lab(s) drawn, by de, sent to lab. First set of blood cultures drawn by me, EKG cm10 done, by ED staff, reviewed by Velvet Haynes PA-C. 18:10 Second set of blood cultures drawn by de. cm10 18:14 COVID-19 Ag + Flu A+B Ag Sent. cm10 18:14 BMP Sent. cm10 18:14 Blood Culture Adult (2) Sent. cm10 18:14 CBC with Diff Sent. cm10 18:14 Magnesium Sent. cm10 18:14 NT PRO-BNP Sent. cm10 18:14 PT-INR Sent. cm10 18:14 Ptt, Activated Sent. cm10 18:14 Troponin HS Sent. cm10 19:[address] via stretcher. cm10 19:55 Chest W/ Con CT In Process Unspecified. EDMS 19:59 [address] moved back from CT. cm10 21:17 Shirin Caceres MD is Hospitalizing Provider. sb4 03 13:55 Report Faxed at 1354. No answer when called. cm10 14:38 No provider procedures requiring assistance completed. Patient admitted, IV remains in cm10 place. Administered Medications: 10/26 18:14 Drug: DuoNeb Nebulize (3:1) (2.5 mg - 0.5 mg) 3 ml Nebulizer once Route: Nebulizer; 10 18:45 Follow up: Response: No adverse reaction cm10 Medication: 20:44 VIS not applicable for this client. cm10 Outcome: 21:17 Decision to Hospitalize by Provider. sb4 10/27 14:38 Admitted to Med/surg accompanied by tech, via wheelchair, with oxygen, cm10 Condition: stable Instructed on the need for admit, 14:41 Patient left the ED. cm10 Signatures: Dispatcher [employer] EDMS Africa Rodriguez RN RN aa5 Merlin Loaiza RN RN Velvet Caballero PA-C PA-C sb4 Salome Forrest, RN RN cm10 Corrections: (The following items were deleted from the chart) 10/26 17:08 17:05 BP 125 / 66; Pulse 59bpm; Resp 22bpm; Spontaneous; Pulse Ox 100% RA; Temp 97.8F aa5 Temporal; aa5
[2024-10-27] MEDS ORDERED: ONDANSETRON 4 MG/2 ML VIAL IV PRN (02:04)
[2024-10-27] MEDS ORDERED: ACETAMINOPHEN 325 MG TABLET PO PRN (02:04)
[2024-10-27] MEDS ORDERED: ALPRAZOLAM 0.25 MG TABLET PO PRN (02:04)
--- NOTE | 2024-10-27 02:20 | P.HP ---
Patient History Date of Service: 10/27/24 History of Present Illness: This 69-year-old man with a past medical history of COPD, chronic atrial fibrillation, heart failure with preserved ejection fraction, chronic respiratory failure 2 L nasal cannula, with a recent hospitalization by Dr. Fernandez for pneumonia and acute exacerbation of COPD. He was discharged at the time with antibiotic and steroids. Since then he states he is very fatigued. Associated symptoms include wheezing and coughing. He was scheduled to go to his PCPs office for further checkup however he states he was not able to make it to that appointment. He rates his weakness as a 9 out of 10 Allergies No Known Allergies Allergy (Verified 11/12/23 14:18) Home Medications: Roflumilast [Daliresp*] 500 mcg PO DAILY 30 Days #30 tab 05/20/23 Tamsulosin [Flomax*] 0.4 mg PO DAILY 06/29/23 Ipratropium/Albuterol Sulfate [Iprat-Albut 0.5-3(2.5) mg/3 ml] 3 ml IH Q6H PRN #120 amp 08/20/23 Montelukast [Singulair*] 10 mg PO DAILY 11/19/23 Fluticasone/Umeclidin/Vilanter [Trelegy Ellipta 100-62.5-25] 1 puff IH DAILY 02/07/24 Apixaban [Eliquis] 5 mg PO BID 02/17/24 Amiodarone HCl [Cordarone*] 200 mg PO DAILY 04/12/24 Amox/Clavulanate [Augmentin 875-125 Tab] 875 mg PO BID #28 tab 06/23/24 Ipratropium Neb [Atrovent*] 0.5 mg NEB [id number] amp 06/23/24 Mupirocin Calcium [Bactroban Nasal*] 1 appl JOANN BID tube 06/23/24 Nicotine [Nicoderm*] 14 mg TD DAILY 06/23/24 Spironolactone [Aldactone*] 25 mg PO BID tab 06/23/24 acetaZOLAMIDE [Acetazolamide] 250 mg PO BID #60 tab 06/23/24 predniSONE [Deltasone*] 10 mg PO BID #10 tab 06/23/24 - Past Medical/Surgical History Diabetic: No -: COPD on chronic home O2/steroids -: Hypertension -: Alcohol abuse -: Hyponatremia -: Diastolic CHF -: Pneumonia -: A-fibon chronic anticoagulation -: Hernia repair -: left leg wound -: Left foot cancer removal Psychosocial/ Personal History: Patient is . He lives at home and has home health. - Family History Father -: Heart disease Brother -: Lung disease - Social History Alcohol use: No CD- Drugs: No Caffeine use: Yes Review of Systems General: Weakness Eyes: Unremarkable ENT: Unremarkable Respiratory: Cough, Shortness of Breath Cardiovascular: Unremarkable Gastrointestinal: Unremarkable Genitourinary: Unremarkable Musculoskeletal: Unremarkable Integumentary: Unremarkable Neurological: Unremarkable Physical Examination - Physical Exam General: Alert HEENT: Atraumatic, Normocephalic Neck: Supple Respiratory: Expiratory wheezes Cardiovascular: No edema Capillary refill: <2 Seconds Gastrointestinal: Normal bowel sounds Musculoskeletal: No clubbing Integumentary: No rashes Neurological: Normal speech Lymphatics: No axilla or inguinal lymphadenopathy - Studies Laboratory Data (last 24 hrs) 10/26/24 10/26/24 10/26/24 17:55 17:55 17:55 WBC 11.80 H Hgb 11.5 L Hct 37.2 L Plt Count 226 PT 13.5 H INR 1.19 APTT 34.4 Sodium 139 Potassium 4.1 BUN 15 Creatinine 0.68 L Glucose 134 H Magnesium 2.3 Assessment and Plan - Plan COPD exacerbation Acute on chronic respiratory failure Heart failure with preserved ejection fraction exacerbation Chronic atrial fibrillation Essential hypertension Chronic kidney disease stage III BPH Type 2 diabetes mellitus Tobacco dependence Scheduled breathing treatment, steroid, azithromycin, Wean O2 as able, continue Singulair D-dimer pending Pulmonary consult CRP, blood cultures, and procalcitonin pending Continue Eliquis, amiodarone Nicotine patch Trial low-dose IV Lasix, continue spironolactone DVT prophylaxis with Eliquis - Advance Directives Does patient have a Living Will: No Does patient have a Durable POA for Healthcare: No
[2024-10-27] MEDS: IPRATROPIUM BROM 0.5MG/2.5ML NEB SCH (07:00)
[2024-10-27] MEDS ORDERED: ALBUTEROL 2.5 MG/3 ML NEB SOL ONE ×2 (08:24→13:39)
[2024-10-27] MEDS: ALBUTEROL 2.5 MG/3 ML NEB SOL NEB SCH (08:45)
[2024-10-27] MEDS: TAMSULOSIN 0.4 MG SR CAP PO SCH (09:00)
[2024-10-27] MEDS: SPIRONOLACTONE 25 MG TABLET PO SCH (09:00)
[2024-10-27] MEDS: MONTELUKAST 10 MG TAB PO SCH (09:00)
[2024-10-27] MEDS ORDERED: ENOXAPARIN 40 MG/0.4 ML SQ SCH (09:00)
[2024-10-27] MEDS: NICOTINE 14 MG/PAT TD SCH (09:00)
[2024-10-27] MEDS: predniSONE 20 MG TAB PO SCH (09:00)
[2024-10-27] MEDS: AMIODARONE HCL 200 MG TAB PO SCH (09:00)
[2024-10-27] MEDS: APIXABAN 5 MG TABLET PO SCH (09:00)
[2024-10-27] MEDS ORDERED: TAMSULOSIN 0.4 MG SR CAP ONE (10:08)
[2024-10-27] MEDS ORDERED: APIXABAN 5 MG TABLET ONE (10:08)
[2024-10-27] MEDS ORDERED: NICOTINE 21 MG/PAT TD ONE (10:09)
[2024-10-27] MEDS ORDERED: AMIODARONE HCL 200 MG TAB ONE (10:09)
[2024-10-27] MEDS ORDERED: predniSONE 20 MG TAB ONE (10:09)
[2024-10-27] MEDS ORDERED: FLU (Fluarix Triv) TS24-25(6MOS UP)/PF 45 MCG/0.5 ML Syringe IM ONE (12:00)
[2024-10-27] MEDS ORDERED: IPRATROPIUM BROM 0.5MG/2.5ML ONE (13:39)
[2024-10-27 16:47] LABS: Specific Gravity 1.024 (1.005-1.030); Urine Bilirubin NEGATIVE (Negative); Urine Blood Negative (Negative); Urine Clarity Clear (Clear); Urine Color Light-Yellow (Yellow); Urine Glucose NEGATIVE (Negative); Urine Ketones NEGATIVE (Negative); Urine Microscopic Reflex YN NO UMIC; Urine Nitrite NEGATIVE (Negative); Urine Protein NEGATIVE (Negative); Urine Urobilinogen Normal (Normal); Urine pH 6.5 (5.0-7.0)
[2024-10-27] MEDS: acetaZOLAMIDE 250 MG TAB PO SCH (20:25)
[2024-10-27] MEDS: IPRATROPIUM BROM 0.5MG/2.5ML ONE (22:09)
[2024-10-27] MEDS: ALBUTEROL 2.5 MG/3 ML NEB SOL ONE (22:09)
[2024-10-28 06:10] LABS: Absolute Lymphocytes (CBC) 0.8 K/uL (0.7-4.9); Absolute Monocytes 0.4 K/uL (0.1-1.3); Basophils % 0.1 % (0-1.3); Eosinophils % 0.2 % (0-4.4); Hematocrit 35.1 % (39.6-49.0); Lymphocytes % 7.2 % (15.3-44.8); MCH 25.5 pg (27.0-35.0); MCHC 31.2 g/dL (32.0-36.0); MCV 81.6 fL (80-100); MPV 7.7 fL (7.6-11.3); Monocytes % 3.6 % (3.3-12.3); Neutrophils % 88.9 % (41.7-73.7); Platelets 200 thou/uL (152-406); Red Cell Distribution Width 17.8 % (12.1-15.2)
[2024-10-28 06:26] LABS: ALT/SGPT 18 U/L (16-61); Albumin 2.9 g/dL (3.4-5.0); Albumin/Globulin Ratio 1.2 (1.1-1.8); Alkaline Phosphatase 60 U/L (45-117); BUN Blood Urea Nitrogen 14 mg/dL (7-18); Bicarbonate 36 mEq/L (21-32); Bilirubin Total 0.3 mg/dL (0.2-1.0); Globulin 2.5 g/dL (2.3-3.5); Glomerular Filtration Rate 98 ml/min (=/>90); Glucose Level 128 mg/dL (74-106); Magnesium 2.1 mg/dL (1.6-2.4); NT PRO-BNP 765 pg/mL (<125); Protein, Total 5.4 g/dL (6.4-8.2); Sodium Level 137 mEq/L (136-145)
[2024-10-28 06:35] LABS: AST/SGOT < 10 U/L (15-37)
[2024-10-28 06:50] VITALS: BMI 26.6
--- NOTE | 2024-10-28 07:43 | RAD REPORT ---
EXAM: Chest Single View HISTORY: 69 years Male pneumonia COMPARISON: 10/26/24 FINDINGS: LUNGS/PLEURA: Mild bibasilar opacities are similar. Right midlung scarring. CARDIAC/MEDIASTINUM: The cardiac silhouette is within normal limits. UPPER ABDOMEN: No significant abnormality. BONES: No acute abnormality. LINES/TUBES/OTHER: N/A IMPRESSION: No evidence of acute cardiopulmonary disease. No significant change from prior.
[2024-10-28 08:32] LABS: Blood Morphology Comment NOTED (NOT SEEN); Differential Total Cells Count 100; Lymphocytes 10 % (15-42); Monocytes 5 % (0-10); Platelet Estimate ADEQ; Rouleau NOTED; Segmented Neutrophils 85 % (40-80)
[2024-10-28 08:33] LABS: Basophilic Stippling 1+
[2024-10-29 05:56] LABS: Absolute Lymphocytes (CBC) 0.9 K/uL (0.7-4.9); Absolute Monocytes 0.8 K/uL (0.1-1.3); Absolute Neutrophil 10.3 K/uL (1.8-8.0); Basophils % 0.2 % (0-1.3); Eosinophils % 0.2 % (0-4.4); Hematocrit 32.7 % (39.6-49.0); Hemoglobin 10.4 g/dL (13.6-17.9); Lymphocytes % 7.3 % (15.3-44.8); MCH 25.9 pg (27.0-35.0); MCHC 31.7 g/dL (32.0-36.0); MCV 81.6 fL (80-100); MPV 7.9 fL (7.6-11.3); Monocytes % 6.5 % (3.3-12.3); Platelets 176 thou/uL (152-406); RBC Red Blood Cell Count 4.01 M/uL (4.33-5.43); Red Cell Distribution Width 17.8 % (12.1-15.2)
[2024-10-29 06:00] LABS: Neutrophils % 85.8 % (41.7-73.7)
--- NOTE | 2024-10-29 07:25 | P.PN ---
Subjective Date of Service: 10/29/24 admitted for COPD exacerbation, 02 94%on 2.5L, <ChetanZonia - Last Filed: 10/29/24 17:29> Date of Service: 10/29/24 <Juanita Giron - Last Filed: 11/03/24 12:03> Review of Systems 10-point ROS is otherwise unremarkable <Zonia Benton - Last Filed: 10/29/24 17:29> Physical Examination - Vital Signs Temperature: 98 F Blood Pressure: 110/55 Pulse: 66 Respirations: 20 Pulse Ox (%): 97 - Physical Exam General: Alert, In no apparent distress, Oriented x3 HEENT: Atraumatic, PERRLA Neck: Supple, 2+ carotid pulse no bruit Respiratory: Normal air movement, Diminished Cardiovascular: Normal pulses, Regular rate/rhythm, Normal S1 S2 Capillary refill: <2 Seconds Gastrointestinal: Normal bowel sounds, Soft and benign Musculoskeletal: No swelling, No contractures Integumentary: No breakdown, No significant lesion Neurological: Normal speech, Normal strength at 5/5 x4 extr, Sensation intact <Zonia Benton - Last Filed: 10/29/24 17:29> Assessment And Plan - Plan - Plan COPD exacerbation Acute on chronic respiratory failure Heart failure with preserved ejection fraction exacerbation Chronic atrial fibrillation Essential hypertension Chronic kidney disease stage III BPH Type 2 diabetes mellitus Tobacco dependence Scheduled breathing treatment, steroid, azithromycin, Wean O2 as able, continue Singulair IV antibiotics, D-dimer pending Pulmonary consult CRP, blood cultures, and procalcitonin pending Continue Eliquis, amiodarone Nicotine patch Trial low-dose IV Lasix, continue spironolactone Resume home health at discharge DVT prophylaxis with Eliquis - Advance Directives Does patient have a Living Will: No Does patient have a Durable POA for Healthcare: No Discharge Plan: Home - Code Status/Comfort Care Code Status: Full Code Critical Care: No Time Spent Managing PTS Care (In Minutes): 35 <Zonia Benton - Last Filed: 10/29/24 17:29> - Current Problems (Diagnosis) (1) Acute exacerbation of COPD with asthma Status: Acute (2) Atrial fibrillation Status: Acute (3) BPH (benign prostatic hyperplasia) Status: Acute (4) COPD (chronic obstructive pulmonary disease) Status: Acute (5) Tobacco use Status: Acute (6) Alcohol abuse Status: Chronic (7) Chronic diastolic heart failure Status: Chronic (8) Cigarette nicotine dependence Status: Chronic (9) Hypertension Status: Chronic Qualifiers: <Juanita Giron - Last Filed: 11/03/24 12:03> Date of Service: 10/29/24 Patient was seen and examined. Events of the last 24 hours have been noted. Spoke with with SOWMYA regarding patient's clinical picture after evaluating and examining the patient independently. I performed a substantial part of the MDM during this patient's care today. I personally made or approved the documented management plan and acknowledge its risk of complications. I agree with the findings and documentation provided in the SOWMYA's notes. <Juanita Giron - Last Filed: 11/03/24 12:03>
[2024-10-29] MEDS: VILANTER IH SCH (09:00)
[2024-10-29] MEDS: FLUTICASONE IH SCH (09:00)
[2024-10-29] MEDS: UMECLIDIN IH SCH (09:00)
[2024-10-29] MEDS: CEFEPIME 2 GM in NA CHLORIDE 0.9% 100 ML IV SCH (18:28)
--- NOTE | 2024-10-30 01:12 | P.PN ---
Subjective Date of Service: 10/29/24 Subjective: No new changes, No C/O voiced, Improving Review of Systems 10-point ROS is otherwise unremarkable Physical Examination - Vital Signs Temperature: 97.6 F Blood Pressure: 121/64 Pulse: 82 Respirations: 18 Pulse Ox (%): 98 - Physical Exam General: Alert, In no apparent distress, Oriented x3 Respiratory: Clear to auscultation bilaterally, Normal air movement Cardiovascular: Regular rate/rhythm, Normal S1 S2, No murmurs Gastrointestinal: Normal bowel sounds, Soft and benign, Non-distended, No tenderness Musculoskeletal: No clubbing, No swelling, No tenderness Integumentary: No rashes Neurological: Sensation intact, Cranial nerves 3-12 intact - Studies Medications List Reviewed: Yes Assessment & Plan - Problems (Diagnosis) (1) Acute exacerbation of COPD with asthma Current Visit: No Status: Acute (2) Atrial fibrillation Current Visit: No Status: Acute (3) BPH (benign prostatic hyperplasia) Current Visit: No Status: Acute (4) COPD (chronic obstructive pulmonary disease) Current Visit: No Status: Acute (5) Tobacco use Current Visit: No Status: Acute (6) Alcohol abuse Current Visit: No Status: Chronic (7) Chronic diastolic heart failure Current Visit: No Status: Chronic (8) Cigarette nicotine dependence Current Visit: No Status: Chronic (9) Hypertension Current Visit: No Status: Chronic Qualifiers: - Plan PLAN: 1. ACUTE COPD EXACERBATION; CONTINUE WITH NEBS, STEROIDS, AND ANTIBIOTICS. ARRANGE FOR PORTABLE O2 TO BE EVALUATED. 2. AFIB; CONTINUE WITH MEDICATION FOR RATE CONTROL 3. CHF WITH DIASTOLIC DYSFUNCTION; CONTINUE MONITORING VOLUME STATUS 4. 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 GI DVT PROPHYLAXIS Discharge Plan: Home Plan to discharge in: 24 Hours - Advance Directives Does patient have a Living Will: No Does patient have a Durable POA for Healthcare: No - Code Status/Comfort Care Code Status: Full Code Critical Care: No Time Spent Managing PTS Care (In Minutes): 30
[2024-10-30] MEDS: CEFDINIR 300 MG CAP PO SCH (12:39)
[2024-10-30 13:34] VITALS: O2SAT 98
--- NOTE | 2024-10-31 11:21 | EKG ---
Test Date: 2024-10-26 Test Time: 17:50:29 Process Treater: JAYDEN MEASUREMENT RESULTS: Intervals: Rate: 57 MD: 176 QRSD: 102 QT: 446 QTc: 434 Lutz: P: 55 MD: 176 QRS: 32 T: 50 INTERPRETIVE STATEMENTS: Sinus bradycardia Otherwise normal ECG Compared to ECG 10/17/2024 11:36:15 Sinus rhythm no longer present First degree AV block no longer present Incomplete right bundle-branch block no longer present Myocardial infarct finding no longer present Electronically Signed On 10-31-24 11:05:26 CDT by Willie Leonard
[2024-11-03 12:04] VITALS: BP 121/64; TEMP 97.6
--- NOTE | 2024-11-03 12:06 | P.DS ---
Discharge Date: 10/30/24 Disposition: ROUTINE DISCHARGE Discharge Condition: GOOD - Problems (1) Acute exacerbation of COPD with asthma Status: Acute (2) Atrial fibrillation Status: Acute (3) BPH (benign prostatic hyperplasia) Status: Acute (4) COPD (chronic obstructive pulmonary disease) Status: Acute (5) Tobacco use Status: Acute (6) Alcohol abuse Status: Chronic (7) Chronic diastolic heart failure Status: Chronic (8) Cigarette nicotine dependence Status: Chronic (9) Hypertension Status: Chronic Qualifiers: Brief History of Present Illness: This 69-year-old man with a past medical history of COPD, chronic atrial fibrillation, heart failure with preserved ejection fraction, chronic respiratory failure 2 L nasal cannula, with a recent hospitalization by Dr. Fernandez for pneumonia and acute exacerbation of COPD. He was discharged at the time with antibiotic and steroids. Since then he states he is very fatigued. Associated symptoms include wheezing and coughing. He was scheduled to go to his PCPs office for further checkup however he states he was not able to make it to that appointment. He rates his weakness as a 9 out of 10 Hospital Course: Patient is clinically doing well. Patient denies any new complaints. Patient's respiratory status has improved. Patient is doing much better and at this time patient is deemed stable for discharge. Patient had some issues with his concentrator and will get up patient's medical supply company the exam in that and make sure that is working properly. Patient will follow-up with radiology ct technologist, Dr. Ferris in 1 week. Vital Signs/Physical Exam: Temp Pulse Resp BP Pulse Ox 97.6 F 82 18 121/64 98 11/03/24 12:04 11/03/24 12:04 11/03/24 12:04 11/03/24 12:04 11/03/24 12:04 General: Alert, In no apparent distress, Oriented x3 Laboratory Data at Discharge: WBC 12.00 thou/uL (4.3-10.9) H 10/29/24 05:24 Hgb 10.4 g/dL (13.6-17.9) L 10/29/24 05:24 Hct 32.7 % (39.6-49.0) L 10/29/24 05:24 Plt Count 176 thou/uL (152-406) 10/29/24 05:24 PT 13.5 SECONDS (10.0-13.0) H 10/26/24 17:55 INR 1.19 10/26/24 17:55 APTT 34.4 SECONDS (24.3-36.9) 10/26/24 17:55 Sodium 137 mEq/L (136-145) 10/29/24 05:24 Potassium 5.0 mEq/L (3.5-5.1) 10/29/24 05:24 BUN 20 mg/dL (7-18) H 10/29/24 05:24 Creatinine 0.79 mg/dL (0.70-1.30) 10/29/24 05:24 Glucose 129 mg/dL (74-106) H 10/29/24 05:24 Magnesium 2.1 mg/dL (1.6-2.4) 10/28/24 05:44 Total Bilirubin 0.3 mg/dL (0.2-1.0) 10/28/24 05:44 AST < 10 U/L (15-37) L 10/28/24 05:44 ALT 18 U/L (16-61) 10/28/24 05:44 Alkaline Phosphatase 60 U/L (45-117) 10/28/24 05:44 Home Medications: Roflumilast [Daliresp*] 500 mcg PO DAILY 30 Days #30 tab 05/20/23 Tamsulosin [Flomax*] 0.4 mg PO DAILY 06/29/23 Ipratropium/Albuterol Sulfate [Iprat-Albut 0.5-3(2.5) mg/3 ml] 3 ml IH Q6H PRN #120 amp 08/20/23 Montelukast [Singulair*] 10 mg PO DAILY 11/19/23 Fluticasone/Umeclidin/Vilanter [Trelegy Ellipta 100-62.5-25] 1 puff IH DAILY 02/07/24 Apixaban [Eliquis] 5 mg PO BID 02/17/24 Amiodarone HCl [Cordarone*] 200 mg PO DAILY 04/12/24 Ipratropium Neb [Atrovent*] 0.5 mg NEB [id number] amp 06/23/24 Mupirocin Calcium [Bactroban Nasal*] 1 appl JOANN BID tube 06/23/24 Nicotine [Nicoderm*] 14 mg TD DAILY 06/23/24 Spironolactone [Aldactone*] 25 mg PO BID tab 06/23/24 acetaZOLAMIDE [Acetazolamide] 250 mg PO BID #60 tab 06/23/24 predniSONE [Deltasone*] 10 mg PO BID #10 tab 06/23/24 Cefdinir [Cefdinir*] 300 mg PO BIDWM #14 cap 10/30/24 predniSONE [Prednisone*] 20 mg PO BID #11 tab 10/30/24 New Medications: Cefdinir [Cefdinir*] 300 mg PO BIDWM #14 cap predniSONE [Prednisone*] 20 mg PO BID #11 tab Physician Discharge Instructions: PROBLEM: COPD GOAL: Clear understanding of disease process INSTRUCTIONS: Follow up with PCP in1-2 weeks, Pulmonology in 1-2 weeks Diet: AHA Activity: Fall precautions IMMUNIZATION Influenza Vaccine Indicated: No Influenza Vaccine Given: Date Given: Pneumonia Vaccine Indicated: No Pneumonia Vaccine Given: Date Given: -DC IV and DC home -Follow-up with PCP in 1 to 2 weeks -Follow-up with Pulmonary in 1 to 2 weeks -Please call Dr. Giron at [phone] if any questions regarding hospital stay -Please call nursing station at [phone] if any nursing or medication questions -Return to the emergency room if symptoms worsen Diet: AHA Activity: Fall precautions Followup: Nicolas Fernandez MD [Primary Care Provider] - Time spent managing pt's care (in minutes): 35
== END 2024-10-30 15:35 | disposition home or self-care (01) | DRG 189 ==
LOC: ER 16:58 → ERHOLD 10-27 02:04 → 2ND 10-27 14:02
PROVIDERS: ADMIT Family Medicine; ATTEND Hospitalist
PROC: 4A033R1 Measurement of Arterial Saturation, Peripheral, Percutaneous Approach (ICD-10-PCS; principal; 2024-10-26)
DX: J96.01 Acute respiratory failure with hypoxia (principal); I48.20 Chronic atrial fibrillation, unspecified; I50.32 Chronic diastolic (congestive) heart failure; J44.1 Chronic obstructive pulmonary disease with (acute) exacerbation; I13.0 Hypertensive heart and chronic kidney disease with heart failure and stage 1 through stage 4 chronic kidney disease, or unspecified chronic kidney disease; J96.02 Acute respiratory failure with hypercapnia; N18.30 Chronic kidney disease, stage 3 unspecified; D63.1 Anemia in chronic kidney disease; F10.10 Alcohol abuse, uncomplicated; N40.0 Benign prostatic hyperplasia without lower urinary tract symptoms; F17.210 Nicotine dependence, cigarettes, uncomplicated; Z11.52 Encounter for screening for COVID-19; Z99.81 Dependence on supplemental oxygen; Z79.01 Long term (current) use of anticoagulants; Z79.52 Long term (current) use of systemic steroids; Z79.899 Other long term (current) drug therapy
CPT/HCPCS: 36415; 36600; 71045; 71260; 80048; 80053; 81003; 82805; 82947; 83735; 83880; 84145; 84484; 85025; 85379; 85610; 85730; 86140; 87040; 87428; 93005; 94640; 94760; 97116; 97161; 99285; J0692; J7512; J7613; J7644

== ENCOUNTER 2024-11-07 10:31 | Inpatient (IN) | payer OTHER, BC ==
[2024-11-07] MEDS ORDERED: IPRATROPIUM BROM 0.5MG/2.5ML ONE ×2 (10:44→14:26)
[2024-11-07] MEDS ORDERED: ALBUTEROL 2.5 MG/3 ML NEB SOL ONE ×2 (10:44→14:26)
[2024-11-07 11:17] LABS: Absolute Lymphocytes (CBC) 0.5 K/uL (0.7-4.9); Absolute Monocytes 0.8 K/uL (0.1-1.3); Absolute Neutrophil 7.7 K/uL (1.8-8.0); Basophils % 0.3 % (0-1.3); Eosinophils % 0.1 % (0-4.4); Hematocrit 31.7 % (39.6-49.0); Hemoglobin 10.4 g/dL (13.6-17.9); Lymphocytes % 5.1 % (15.3-44.8); MCH 27.3 pg (27.0-35.0); MCHC 32.9 g/dL (32.0-36.0); MCV 83.1 fL (80-100); MPV 7.4 fL (7.6-11.3); Monocytes % 9.4 % (3.3-12.3); Neutrophils % 85.1 % (41.7-73.7); Nucleated Red Blood Cells % 0.1 % (0-0); Platelets 161 thou/uL (152-406); RBC Red Blood Cell Count 3.81 M/uL (4.33-5.43); Red Cell Distribution Width 19.6 % (12.1-15.2)
[2024-11-07 11:30] LABS: PT Prothrombin Time 17.5 SECONDS (10-13.0); PTT, Activated Partial Thromb 35.2 SECONDS (27.2-37.4); Protime INR 1.57
[2024-11-07 11:42] LABS: ALT/SGPT 16 U/L (16-61); AST/SGOT < 10 U/L (15-37); Alkaline Phosphatase 61 U/L (45-117); BUN Blood Urea Nitrogen 13 mg/dL (7-18); Bicarbonate 41 mEq/L (21-32); Bilirubin Direct 0.2 mg/dL (0-0.2); Bilirubin Indirect, Calculated 0.4 mg/dL (0.2-0.8); Bilirubin Total 0.6 mg/dL (0.2-1.0); Glomerular Filtration Rate 102 ml/min (=/>90); Glucose Level 106 mg/dL (74-106); Magnesium 2.5 mg/dL (1.6-2.4); NT PRO-BNP 1171 pg/mL (<125); Sodium Level 134 mEq/L (136-145)
[2024-11-07 11:49] LABS: Blood Gas Oxyhemoglobin 86.1 % (94-97); Blood Gas THB 10.3 g/dl (12-18); Blood O2 Saturation 93.7 % (92-98.5)
[2024-11-07 12:35] LABS: White Blood Cell Scan OK (OK)
[2024-11-07 12:37] LABS: Anisocytosis 1+; Blood Morphology Comment NOTED (NOT SEEN); Platelet Estimate ADEQ
[2024-11-07 12:38] LABS: Ovalocytes SLIGHT
[2024-11-07 16:35] LABS: Arterial Blood Carboxyhemoglob 2.9 % (0-1.5); Blood Gas Oxyhemoglobin 91.4 % (94-97); Blood Gas THB 10.2 g/dl (12-18); Blood O2 Saturation 95.9 % (92-98.5)
[2024-11-07] MEDS ORDERED: ALBUTEROL 2.5 MG/3 ML NEB SOL NEB PRN (17:05)
--- NOTE | 2024-11-07 17:09 | RAD REPORT ---
EXAMINATION: ONE VIEW CHEST XR CLINICAL INDICATION: COPD TECHNIQUE: Frontal chest projection is submitted. Examination is limited by patient positioning and t echnique. COMPARISON: 10/28/2024 FINDINGS: The lungs are diffusely emphysematous but grossly clear. The heart is upper limit of normal in size. No displaced fractures identified. IMPRESSION: COPD without an acute process suspected.
--- NOTE | 2024-11-07 17:12 | EDPHYS ---
Physician Documentation [facility] Name: Randolph Mckeon Age: 69 yrs Sex: Male : 1955 Arrival Date: 11/07/2024 Time: 10:31 Bed 2 Private MD: ED Physician Marco León HPI: 11/07 19:48 This 69 yrs old Male presents to ER via EMS with complaints of Shortness Of Breath. jj9 10:38 The patient has shortness of breath at rest. Onset: The symptoms/episode began/occurred jj9 gradually. Duration: The symptoms are chronic, and have existed for years. The patient's shortness of breath has no apparent modifying factors. 69-year-old man comes to the emergency department brought by EMS for evaluation of worsening shortness of breath. Patient has a history of COPD and symptoms have exacerbated over the last days. Patient uses oxygen at home at baseline. Upon arrival to the emergency department on Facemask in mild respiratory distress with tachypnea. He is currently on a facemask with 100% oxygen.. Historical: - Allergies: 10:39 No Known Allergies; cm10 - PMHx: 10:39 Atrial fibrillation; CHF; Chronic obstructive lung disease; COPD; Hypertension; cm10 Pneumonia; - PSHx: 10:39 cyst removal on lower left limb; hernia; cm10 - Immunization history:: Adult Immunizations unknown. - Infectious Disease History:: Denies. - Social history:: Smoking status: Patient reports the use of cigarette tobacco products, unknown amount. ROS: 10:40 Constitutional: Negative for fever, chills, and weight loss, Eyes: Negative for injury, jj9 pain, redness, and discharge, ENT: Negative for injury, pain, and discharge, Neck: Negative for injury, pain, and swelling, Cardiovascular: Negative for chest pain, palpitations, and edema, Respiratory: SOB, cough, congestion Abdomen/GI: Negative for abdominal pain, nausea, vomiting, diarrhea, and constipation, Back: Negative for injury and pain, : Negative for injury, bleeding, discharge, and swelling, MS/Extremity: Negative for injury and deformity, Skin: Negative for injury, rash, and discoloration, Neuro: Negative for headache, weakness, numbness, tingling, and seizure, Psych: Negative for depression, anxiety, suicide ideation, homicidal ideation, and hallucinations, Allergy/Immunology: Negative for hives, rash, and allergies, Endocrine: Negative for neck swelling, polydipsia, polyuria, polyphagia, and marked weight changes, Exam: 10:42 Constitutional: tachypnea, moderate distress, retractions Head/Face: Normocephalic, jj9 atraumatic. Eyes: Pupils equal round and reactive to light, extra-ocular motions intact. Lids and lashes normal. Conjunctiva and sclera are non-icteric and not injected. Cornea within normal limits. Periorbital areas with no swelling, redness, or edema. ENT: Nares patent. No nasal discharge, no septal abnormalities noted. Tympanic membranes are normal and external auditory canals are clear. Oropharynx with no redness, swelling, or masses, exudates, or evidence of obstruction, uvula midline. Mucous membranes moist. Neck: Trachea midline, no thyromegaly or masses palpated, and no cervical lymphadenopathy. Supple, full range of motion without nuchal rigidity, or vertebral point tenderness. No Meningismus. Chest/axilla: Normal chest wall appearance and motion. Nontender with no deformity. No lesions are appreciated. Cardiovascular: Regular rate and rhythm with a normal S1 and S2. No gallops, murmurs, or rubs. Normal PMI, no JVD. No pulse deficits. Respiratory: decreased breath sounds, audible wheezing, tachypnea Abdomen/GI: Soft, non-tender, with normal bowel sounds. No distension or tympany. No guarding or rebound. No evidence of tenderness throughout. Back: No spinal tenderness. No costovertebral tenderness. Full range of motion. Skin: Warm, dry with normal turgor. Normal color with no rashes, no lesions, and no evidence of cellulitis. MS/ Extremity: Pulses equal, no cyanosis. Neurovascular intact. Full, normal range of motion. Neuro: Awake and alert, GCS 15, oriented to person, place, time, and situation. Cranial nerves II-XII grossly intact. Motor strength 5/5 in all extremities. Sensory grossly intact. Cerebellar exam normal. Normal gait. Psych: Awake, alert, with orientation to person, place and time. Behavior, mood, and affect are within normal limits. Vital Signs: 10:35 BP 121 / 73; Pulse 77; Resp 28; Pulse Ox 100% on BiPAP; FiO2 50 %; Weight 88.45 kg; cm10 11:00 BP 106 / 63; Pulse 69; Resp 24; Pulse Ox 97% on BiPAP; FiO2 40 %; cm10 11:30 BP 107 / 66; Pulse 66; Resp 30; Pulse Ox 95% on BiPAP; FiO2 40 %; cm10 12:00 BP 109 / 60; Pulse 68; Resp 23; Pulse Ox 98% on BiPAP; FiO2 40 %; cm10 12:30 BP 105 / 55; Pulse 68; Resp 30; Pulse Ox 97% on BiPAP; FiO2 40 %; cm10 13:00 BP 116 / 72; Pulse 70; Resp 31; Pulse Ox 99% on BiPAP; FiO2 40 %; cm10 14:09 BP 110 / 65; Pulse 71; Resp 21; Pulse Ox 98% on BiPAP; ld1 15:27 BP 106 / 56; Pulse 74; Resp 29; Pulse Ox 99% on BiPAP; ld1 16:00 BP 99 / 60; Pulse 73; Resp 20; Pulse Ox 100% on BiPAP; FiO2 40 %; cm10 16:49 BP 113 / 58; Pulse 69; Resp 22; Pulse Ox 99% on BiPAP; FiO2 40 %; cm10 17:30 BP 102 / 56; Pulse 69; Resp 27; Pulse Ox 97% on BiPAP; FiO2 40 %; cm10 18:00 BP 102 / 86; Pulse 65; Resp 21; Pulse Ox 99% on BiPAP; FiO2 40 %; cm10 MDM: 10:34 Medical Screening Exam initiated j 19:48 Data reviewed: vital signs, nurses notes. 11/07 10:35 Order name: BMP; Complete Time: 14:11/07 10:35 Order name: CBC with Diff; Complete Time: 14: 11/07 10:35 Order name: Hepatic Function; Complete Time: 14: 11/07 10:35 Order name: Magnesium; Complete Time: 14: 11/07 10:35 Order name: NT PRO-BNP; Complete Time: 14: 11/07 10:35 Order name: PT-INR; Complete Time: 14: 11/07 10:35 Order name: Ptt, Activated; Complete Time: 14:11/07 10:35 Order name: Troponin HS; Complete Time: 14:27 11/07 10:55 Order name: Arterial Blood Gas; Complete Time: 14:27 11/07 12:37 Order name: CBC Smear Scan; Complete Time: 14:27 EDMS 11/07 14:27 Order name: Arterial Blood Gas; Complete Time: 16:57 11/07 10:38 Order name: BIPAP 11/07 14:34 Order name: CXR XRAY 11/07 10:35 Order name: Cardiac monitoring; Complete Time: 10:47 11/07 10:35 Order name: EKG - Nurse/Tech; Complete Time: 10:47 11/07 10:35 Order name: IV Saline Lock; Complete Time: 10:47 11/07 10:35 Order name: Labs collected and sent; Complete Time: 10:48 11/07 10:35 Order name: O2 Per Protocol; Complete Time: 10:48 11/07 10:35 Order name: O2 Sat Monitoring; Complete Time: 10:48 11/07 10:54 Order name: Labs - recollect needed: recollect all tubes; Complete Time: 11:39 bd Administered Medications: 10:47 Drug: DuoNeb Nebulize (3:1) (2.5 mg - 0.5 mg) 3 ml Nebulizer once Route: Nebulizer; cm10 11:17 Follow up: Response: No adverse reaction; Marked relief of symptoms cm10 14:31 Drug: DuoNeb Nebulize (3:1) (2.5 mg - 0.5 mg) 3 ml Nebulizer once Route: Nebulizer; cm10 15:01 Follow up: Response: No adverse reaction cm10 Disposition Summary: 11/07/24 17:11 Hospitalization Ordered Notes: Hospitalization Status: Inpatient Admission jj9 Provider: Nicolas Fernandez jj9 Location: Intensive Care Unit jj9 Condition: Fair jj9 Problem: chronic jj9 Symptoms: have worsened jj9 Bed/Room Type: Standard jj9 Room Assignment: 6-(11/07/24 17:14) ja1 Diagnosis - Acute and chronic respiratory failure with hypercapnia jj9 Forms: - Medication Reconciliation Form jj9 - SBAR form jj9 - Leadership Thank You Letter jj9 Signatures: Dispatcher [employer] EDMS KendyJenny atkins Adam Cope, RN RN ja1 Salome Forrest, RN RN cm10 Marco León MD MD jj9 Corrections: (The following items were deleted from the chart) 10:36 10:36 BASIC METABOLIC PANEL+C.LAB.BRZ ordered. EDMS EDMS 10:36 10:36 CBC+H.LAB.BRZ ordered. EDMS EDMS 10:36 10:36 HEPATIC FUNCTION+C.LAB.BRZ ordered. EDMS EDMS 10:36 10:36 MAGNESIUM+C.LAB.BRZ ordered. EDMS EDMS 10:36 10:36 PROBNP+C.LAB.BRZ ordered. EDMS EDMS 10:36 10:36 PROTIME (+INR)+COAG.LAB.BRZ ordered. EDMS EDMS 10:36 10:36 PTT, ACTIVATED+COAG.LAB.BRZ ordered. EDMS EDMS 10:36 10:36 Troponin High Sensitivity+C.LAB.BRZ ordered. EDMS EDMS 14:27 14:27 Arterial Blood Gas+RC.LAB.BRZ ordered. EDMS EDMS 17:14 17:11 [email or web address] [email or web address]
--- NOTE | 2024-11-07 17:12 | ER ---
Nurse's Notes [facility] Name: Randolph Mckeon Age: 69 yrs Sex: Male : 1955 Arrival Date: 11/07/2024 Time: 10:31 Bed 2 Private MD: Diagnosis: Acute and chronic respiratory failure with hypercapnia Presentation: 11/07 10:35 Chief complaint: EMS states: CALLED TO PATIENTS HOME FOR SHORTNESS OF BREATH ONSET 3 cm10 DAYS AGO. PT ON HOME O2 SATS 100%. PT IN RESPIRATORY DISTRESS UPON ARRIVAL TO THE ER. PT RECEIVED A\T\A AND SOLUMEDROL IN ROUTE. Coronavirus screen: Client denies travel out of the [place] in the last 14 days. Ebola Screen: Patient denies travel to an Ebola-affected area in the 21 days before illness onset. Initial Sepsis Screen: Does the patient meet any 2 criteria? Does the patient have a suspected source of infection? No. Patient's initial sepsis screen is negative. Risk Assessment: Do you want to hurt yourself or someone else? Patient reports no desire to harm self or others. Onset of symptoms was November 04, 2024. Care prior to arrival: Medication(s) given: Albuterol Neb x 1, Atrovent Neb x 1, SOLUMEDROL 125MG IV initiated. 20 GA, in the left wrist, Med neb given. 10:35 Acuity: YANNICK 2 cm10 10:35 Method Of Arrival: EMS: [facility] cm10 Triage Assessment: 10:48 General: Appears distressed, Behavior is cooperative. Neuro: No deficits noted. Level cm10 of Consciousness is awake, alert, obeys commands, Oriented to person, place, time, situation, Appropriate for age. Respiratory: Reports shortness of breath at rest Airway is patent Respiratory effort is labored, Respiratory pattern is tachypnea Patient placed on BiPAP: FiO2%: 40 Onset: The symptoms/episode began/occurred 3 DAYS AGO, the patient has moderate shortness of breath. Historical: - Allergies: 10:39 No Known Allergies; cm10 - PMHx: 10:39 Atrial fibrillation; CHF; Chronic obstructive lung disease; COPD; Hypertension; cm10 Pneumonia; - PSHx: 10:39 cyst removal on lower left limb; hernia; cm10 - Immunization history:: Adult Immunizations unknown. - Infectious Disease History:: Denies. - Social history:: Smoking status: Patient reports the use of cigarette tobacco products, unknown amount. Screenin:47 [facility] ED Fall Risk Assessment (Adult) History of falling in the last 3 months, cm10 including since admission No falls in past 3 months (0 pts) Confusion or Disorientation No (0 pts) Intoxicated or Sedated No (0 pts) Impaired Gait Yes (1 pt) Mobility Assist Device Used Yes (1 pt) Altered Elimination No (0 pt) Score/Fall Risk Level 0 - 2 = Low Risk Oriented to surroundings, Maintained a safe environment, Hourly rounding (assess needs \T\ fall precautionary measures) done. Abuse screen: Denies threats or abuse. Denies injuries from another. Nutritional screening: No deficits noted. Tuberculosis screening: No symptoms or risk factors identified. Assessment: 10:35 General: PT PLACED ON BIPAP AT THIS TIME.. cm10 12:01 Reassessment: Patient is alert, oriented x 3, equal unlabored respirations, skin cm10 warm/dry/pink. Patient states feeling better. Patient states symptoms have improved. Pain: Denies pain. Cardiovascular: Rhythm is regular. Respiratory: No deficits noted. Airway is patent Respiratory effort is even, unlabored, Respiratory pattern is regular, symmetrical, Patient placed on BiPAP: FiO2%: 40 Breath sounds with wheezes bilaterally. 14:45 Reassessment: Patient is alert, oriented x 3, equal unlabored respirations, skin ld1 warm/dry/pink. Attempted to try patient without BIPAP - MD Mau at bedside. Pt breathing continues to be labored with heavy effort. Instructed to placed BIPAP back on patient. Will continue to monitor. Patient states symptoms have not improved. 17:47 Reassessment: Patient appears in no apparent distress at this time. Patient and/or cm10 family updated on plan of care and expected duration. Pain level reassessed. Patient is alert, oriented x 3, equal unlabored respirations, skin warm/dry/pink. Vital Signs: 10:35 BP 121 / 73; Pulse 77; Resp 28; Pulse Ox 100% on BiPAP; FiO2 50 %; Weight 88.45 kg; cm10 11:00 BP 106 / 63; Pulse 69; Resp 24; Pulse Ox 97% on BiPAP; FiO2 40 %; cm10 11:30 BP 107 / 66; Pulse 66; Resp 30; Pulse Ox 95% on BiPAP; FiO2 40 %; cm10 12:00 BP 109 / 60; Pulse 68; Resp 23; Pulse Ox 98% on BiPAP; FiO2 40 %; cm10 12:30 BP 105 / 55; Pulse 68; Resp 30; Pulse Ox 97% on BiPAP; FiO2 40 %; cm10 13:00 BP 116 / 72; Pulse 70; Resp 31; Pulse Ox 99% on BiPAP; FiO2 40 %; cm10 14:09 BP 110 / 65; Pulse 71; Resp 21; Pulse Ox 98% on BiPAP; ld1 15:27 BP 106 / 56; Pulse 74; Resp 29; Pulse Ox 99% on BiPAP; ld1 16:00 BP 99 / 60; Pulse 73; Resp 20; Pulse Ox 100% on BiPAP; FiO2 40 %; cm10 16:49 BP 113 / 58; Pulse 69; Resp 22; Pulse Ox 99% on BiPAP; FiO2 40 %; cm10 17:30 BP 102 / 56; Pulse 69; Resp 27; Pulse Ox 97% on BiPAP; FiO2 40 %; cm10 18:00 BP 102 / 86; Pulse 65; Resp 21; Pulse Ox 99% on BiPAP; FiO2 40 %; cm10 ED Course: 10:32 Patient arrived in ED. cj3 10:34 Marco León MD is Attending Physician. jj9 10:35 Salome Forrest, RN is Primary Nurse. cm10 10:39 Triage completed. cm10 10:40 Arm band placed on right wrist. Patient placed in an exam room, on a stretcher, on cm10 oxygen, on color television console monitor, on pulse oximetry. 10:48 Initial lab(s) drawn, by me, sent to lab. EKG done, by ED staff, reviewed by Marco León MD. Inserted saline lock: 18 gauge in right forearm, using aseptic technique. Blood collected. Flushed with 10 mL NS. 11:10 Patient has correct armband on for positive identification. Placed in gown. Bed in low cm10 position. Call light in reach. Side rails up X2. 11:10 Client placed on continuous cardiac and pulse oximetry monitoring. NIBP monitoring cm10 applied. monitor and storage bin tender on. 16:53 CXR XRAY In Process Unspecified. EDMS 17:11 Nicolas Fernandez MD is Hospitalizing Provider. jj9 17:49 Report given to SAMEER Mckeon. 10 18:11 Provided Education on: Need for admit. cm10 18:11 No provider procedures requiring assistance completed. Patient admitted, IV remains in cm10 place. Administered Medications: 10:47 Drug: DuoNeb Nebulize (3:1) (2.5 mg - 0.5 mg) 3 ml Nebulizer once Route: Nebulizer; 10 11:17 Follow up: Response: No adverse reaction; Marked relief of symptoms cm10 14:31 Drug: DuoNeb Nebulize (3:1) (2.5 mg - 0.5 mg) 3 ml Nebulizer once Route: Nebulizer; 10 15:01 Follow up: Response: No adverse reaction 10 Medication: 17:51 VIS not applicable for this client. cm10 Outcome: 17:11 Decision to Hospitalize by Provider. jj9 18:11 Admitted to ICU accompanied by nurse, via stretcher, with oxygen, on monitor, 10 18:11 Condition: stable 18:11 Instructed on the need for admit, 18:24 Patient left the ED. ld1 Signatures: Dispatcher [employer] EDMS Tricia Herrera RN RN ld1 Salome Forrest RN RN cm10 Dino Hurd Celeste cj3 Marco León MD MD jj9
[2024-11-07] MEDS: IPRATROPIUM BROM 0.5MG/2.5ML NEB SCH (21:00)
[2024-11-07] MEDS: NA CHLORIDE 0.9% 250 ML IV ONE (21:51)
--- NOTE | 2024-11-08 00:58 | HP ---
Date of Admission: 11/07/2024 Chief Complaint: Shortness of breath and low oxygen level. History Of Present Illness: This is a 69-year-old male patient who has severe COPD with chronic respiratory failure with hypoxia, on chronic home oxygen therapy, was in hospital beginning of this month and at that time, we discharged him to go home after Social Service made arrangements for him to have a portable oxygen concentrator as patient had reported that he had oxygen concentrator for home use, but did not have portable oxygen, so after that arrangements were completed, he was discharged to go home which the patient reported that he has been using it, but today he called office and reported that he really had appointment to come see me at office, but his portable oxygen concentrator was not working as of yesterday and without using oxygen, his oxygen saturation drops really low into the range of 80% or so. So with that, he was advised not to come to office and was instructed to contact appropriate people who supplied him portable oxygen concentrator, either to replace the machine or to repair his current machine. After that, the patient ended up coming to the hospital emergency room because of shortness of breath. After he was evaluated in the ER, he was treated with acute respiratory failure with hypercapnia and hypoxia. I was contacted requesting admission to the hospital. The patient's CO2 level was elevated and required BiPAP therapy in the emergency room. After the use of BiPAP, his condition improved and he was admitted to ICU. When I saw him this evening in ICU, he was lying in bed. He was on nasal cannula oxygen. At that time, answering questions appropriately. Denied any other complaints. Patient reported upon further questioning that he did have BiPAP machine at home, but he did not like to use it because the patient says that they were tracking his BiPAP use and he did not agree and like the idea of somebody tracking him and that is why he decided not to use it anymore. He does not even have BiPAP machine at home now. I did inform him due to his hypercapnia with this respiratory failure, he must start using BiPAP therapy again along with oxygen. Allergies: NO KNOWN ALLERGIES. Medications: Acetazolamide 250 mg 2 times a day, albuterol inhaler 2 puffs 4 times a day as needed, amiodarone 200 mg daily, Eliquis 5 mg 2 times a day, amlodipine 10 mg daily, Trelegy inhaler 1 puff daily, metoprolol 25 mg takes half a tablet 2 times a day, omeprazole 20 mg daily, Daliresp 500 mcg daily, tamsulosin 0.4 mg daily, spironolactone 25 mg daily, montelukast 10 mg daily, magnesium oxide 400 mg daily, and oxygen 3 L/minute per nasal cannula. Review of Systems: Respiratory: As mentioned above. All other systems reviewed and negative. Past Medical History: Significant for seizure disorder, type 2 diabetes mellitus, COPD which is oxygen dependent, hypertension, hyperlipidemia, chronic diastolic heart failure, chronic atrial fibrillation, chronic kidney disease stage IIIA, chronic respiratory failure with hypoxia, hyponatremia. 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 Family History: Father , had heart disease. Mother had kidney cancer and hypertension. Brother is alive and well. Sister, details unknown. Social History: Positive for smoking about 1 pack per day. Use of alcohol, negative, he quit using alcohol in 2022. Physical Examination: Vital Signs: Height 5 feet 11 inches, weight 190 pounds, temperature , pulse , respiratory rate , blood pressure , oxygen saturation . General: Awake, alert, oriented, not in distress. HEENT: Head atraumatic, normocephalic. Conjunctivae nonerythematous. Sclerae white. Mouth, no thrush or edema noted. Ears/Nose, no mass, lesion, discharge noted. Neck: Supple. No JVD, lymph nodes, bruit, thyromegaly noted. Lungs: Bilateral good equal air entry. Not using accessory muscles of respiration. Scattered wheezing in all the lung mccartney with some basal rales. Heart: Normal heart sounds, no murmur or gallop. Abdomen: Soft, bowel sounds normal. No guarding, rigidity, tenderness, mass, hepatosplenomegaly, distention, or bruit noted. Extremities: No leg edema. No calf tenderness. Skin: No rash, ulcer, cellulitis. Lymphatics: No lymph node enlargement in neck, supraclavicular, infraclavicular region. Neuro: No focal neurological deficit. Chest: Unremarkable. External Genitalia: Deferred. Rectal: Deferred. Laboratory Data: WBC 9, hemoglobin 10.4, platelets 161. Sodium 134, potassium 4, chloride 93, bicarb 41, BUN 6, glucose 106. Liver function tests unremarkable. ProBNP 1171. Chest x-ray shows changes of COPD. No other acute findings. ABG upon arrival to the emergency room; pH 7.36, pCO2 81, PO2 72.9, oxygen saturation 93.7% on 40% FiO2. Repeat ABG also on 40% FiO2, pH 7.38, pCO2 73.9, PO2 95.9%. Impression: 1. Chronic respiratory failure with hypoxia, with acute exacerbation. 2. Chronic respiratory failure with hypercapnia, with acute exacerbation. 3. Acute exacerbation of COPD. 4. Anemia, unspecified. 5. Type 2 diabetes mellitus. 6. Hypertension. 7. Hyperlipidemia. 8. Chronic diastolic heart failure. 9. Chronic anticoagulation therapy. 10. Benign prostatic hypertrophy with lower urinary tract symptoms. 11. Seizure disorder. 12. Chronic kidney disease stage IIIA. Plan: Admit patient to hospital for further evaluation and management of this problem. The patient is appropriate for inpatient and is expected to spend 2 midnights in hospital. The patient will be kept in ICU overnight. I will see him tomorrow morning for followup. We will continue oxygen and BiPAP use per order. We will consult Dr. Holt from Pulmonary Service to assist the patient with outpatient BiPAP therapy. We will also consult Social Service to assist with that. For his COPD exacerbation, we will go ahead and continue his oral steroid per order. Continue nebulizer treatment. Diabetes will be managed with sliding scale insulin. No need for further intervention. For hypertension, we will monitor blood pressure and provide antihypertensive medication per order. The patient is on chronic anticoagulation therapy, which we will continue that. For benign prostatic hypertrophy, we will continue his tamsulosin and no need for any further intervention. Total time spent today 80 minutes including communication with the emergency room physician, review of last hospital admission record from 10/17/2024, performing today's evaluation and management. FERNANDO/MODL Voice ID: [id number] HAYLEE
[2024-11-08] MEDS: IPRATROPIUM BROM 0.5MG/2.5ML NEB SCH (01:42)
[2024-11-08] MEDS: ALBUTEROL 2.5 MG/3 ML NEB SOL NEB SCH (01:42)
[2024-11-08] MEDS: PANTOPRAZOLE 40MG TABLET PO SCH (05:36)
[2024-11-08 05:50] LABS: Absolute Lymphocytes (CBC) 0.3 K/uL (0.7-4.9); Absolute Monocytes 0.8 K/uL (0.1-1.3); Absolute Neutrophil 4.3 K/uL (1.8-8.0); Basophils % 0.1 % (0-1.3); Hematocrit 29.8 % (39.6-49.0); Hemoglobin 9.6 g/dL (13.6-17.9); Lymphocytes % 5.6 % (15.3-44.8); MCH 26.6 pg (27.0-35.0); MCHC 32.1 g/dL (32.0-36.0); MCV 82.9 fL (80-100); MPV 7.6 fL (7.6-11.3); Monocytes % 14.3 % (3.3-12.3); Platelets 143 thou/uL (152-406); RBC Red Blood Cell Count 3.59 M/uL (4.33-5.43); Red Cell Distribution Width 19.9 % (12.1-15.2)
[2024-11-08 06:12] LABS: Anion Gap 6.1 mEq/L (5.0-15.0); Potassium 4.1 mEq/L (3.5-5.1)
[2024-11-08] MEDS: AMIODARONE HCL 200 MG TAB PO SCH (07:42)
[2024-11-08] MEDS: ROFLUMILAST 500 MCG TABLET PO SCH (07:42)
[2024-11-08] MEDS: DULERA 200/5 (MOMETASONE/FORMOTEROL) INHALER IH SCH (07:42)
[2024-11-08] MEDS: acetaZOLAMIDE 250 MG TAB PO SCH (07:42)
[2024-11-08] MEDS: TAMSULOSIN 0.4 MG SR CAP PO SCH (07:42)
[2024-11-08] MEDS: APIXABAN 5 MG TABLET PO SCH (07:43)
[2024-11-08] MEDS: AMLODIPINE 5 MG TAB PO SCH (07:43)
[2024-11-08] MEDS: METOPROLOL TAR 25 MG TAB PO SCH (07:43)
[2024-11-08] MEDS: MONTELUKAST 10 MG TAB PO SCH (07:43)
[2024-11-08] MEDS: PNEUMOCOCCAL VACCINE 0.5 ML IMVAC ONE (08:00)
--- NOTE | 2024-11-08 08:32 | P.CNS ---
Date of Consult: 11/08/24 Reason for Consult: COPD exacerbation Chief Complaint: Shortness of breath History of Present Illness: Patient is 69 years of age recurrent frequent admissions for COPD exacerbation uses to use a BiPAP at home came in with a 1 week history of cough congestion productive sputum patient uses trilogy at home and albuterol nebulizer denies any fever or chills no chest pain Allergies No Known Allergies Allergy (Verified 11/12/23 14:18) Home Medications: Roflumilast [Daliresp*] 500 mcg PO DAILY 30 Days #30 tab 05/20/23 Tamsulosin [Flomax*] 0.4 mg PO DAILY 06/29/23 Ipratropium/Albuterol Sulfate [Iprat-Albut 0.5-3(2.5) mg/3 ml] 3 ml IH Q6H PRN #120 amp 08/20/23 Montelukast [Singulair*] 10 mg PO DAILY 11/19/23 Fluticasone/Umeclidin/Vilanter [Trelegy Ellipta 100-62.5-25] 1 puff IH DAILY 02/07/24 Apixaban [Eliquis] 5 mg PO BID 02/17/24 Amiodarone HCl [Cordarone*] 200 mg PO DAILY 04/12/24 Ipratropium Neb [Atrovent*] 0.5 mg NEB [id number] amp 06/23/24 Mupirocin Calcium [Bactroban Nasal*] 1 appl JOANN BID tube 06/23/24 Nicotine [Nicoderm*] 14 mg TD DAILY 06/23/24 Spironolactone [Aldactone*] 25 mg PO BID tab 06/23/24 acetaZOLAMIDE [Acetazolamide] 250 mg PO BID #60 tab 06/23/24 predniSONE [Deltasone*] 10 mg PO BID #10 tab 06/23/24 Cefdinir [Cefdinir*] 300 mg PO BIDWM #14 cap 10/30/24 predniSONE [Prednisone*] 20 mg PO BID #11 tab 10/30/24 - Past Medical/Surgical History Diabetic: No -: COPD on chronic home O2/steroids -: Hypertension -: Alcohol abuse sober -: Hyponatremia -: Diastolic CHF -: Pneumonia -: A-fibon chronic anticoagulation -: Hernia repair -: left leg wound -: Left foot cancer removal Psychosocial/ Personal History: Patient is . He lives at home and has home health. - Family History Father Notes: A-FIB Brother Notes: COPD Mother Medical History: Cancer Notes: KIDNEY CA - Social History Smoking Status: Current every day smoker Alcohol use: No CD- Drugs: No Caffeine use: Yes Place of Residence: Home Review of Systems 10-point ROS is otherwise unremarkable General: Weakness Respiratory: Cough, Shortness of Breath Physical Examination Temp Pulse Resp BP Pulse Ox 98.6 F 71 18 128/59 L 100 11/08/24 04:00 11/08/24 07:43 11/08/24 07:22 11/08/24 07:43 11/08/24 07:22 General: Alert, Oriented x3 Respiratory: Expiratory wheezes Cardiovascular: Normal pulses, Regular rate/rhythm Gastrointestinal: Normal bowel sounds, Soft and benign Musculoskeletal: No clubbing, No swelling, No contractures Laboratory Data (last 24 hrs) 11/07/24 11/07/24 11/07/24 11:02 11:02 11:02 WBC 9.00 Hgb 10.4 L Hct 31.7 L Plt Count 161 PT 17.5 H INR 1.57 APTT 35.2 Sodium 134 L Potassium 4.0 BUN 13 Creatinine 0.68 L Glucose 106 Magnesium 2.5 H Total Bilirubin 0.6 AST < 10 L ALT 16 Alkaline Phosphatase 61 - Problems (1) Acute and chronic respiratory failure Current Visit: No Status: Acute Plan: Patient is 69 years of age with a history of terminal COPD frequent recurrent exacerbations compliant with NIV admitted with an exacerbation apparently he does take his Trelegy and albuterol at home bicarbonate is elevated chest x-ray shows COPD changes normal white count mildly anemic. Some prednisone levofloxacin sputum cultures flutter valve patient is currently stable vital signs oxygenation satisfactory stable to be transferred to the floor Qualifiers:
[2024-11-08] MEDS: predniSONE 20 MG TAB PO SCH (08:35)
[2024-11-08] MEDS: MAGNESIUM OXIDE 400 MG TAB PO SCH (08:35)
[2024-11-08] MEDS: levoFLOXacin 750 MG TAB PO SCH (08:35)
[2024-11-08] MEDS: FLU (Fluarix Triv) TS24-25(6MOS UP)/PF 45 MCG/0.5 ML Syringe IM ONE (08:37)
[2024-11-08] MEDS: METHYLPREDNISOLONE 40 MG INJ IV SCH (09:46)
--- NOTE | 2024-11-08 12:30 | EKG ---
Test Date: 2024-11-07 Test Time: 10:44:50 Rug Shampooer: Arnulfo TORRES MEASUREMENT RESULTS: Intervals: Rate: 70 NJ: 176 QRSD: 84 QT: 378 QTc: 408 [place]: P: 55 NJ: 176 QRS: 13 T: 39 INTERPRETIVE STATEMENTS: Normal sinus rhythm Normal ECG Compared to ECG 11/07/2024 10:39:36 Fusion complex(es) no longer present ST (T wave) deviation no longer present Myocardial infarct finding no longer present Electronically Signed On 11-08-24 12:25:56 CDT by Willie Leonard
--- NOTE | 2024-11-08 12:31 | EKG ---
Test Date: 2024-11-07 Test Time: 10:39:36 Medical Billing Supervisor: Arnulfo TORRES MEASUREMENT RESULTS: Intervals: Rate: 71 RI: 206 QRSD: 86 QT: 370 QTc: 402 [place]: P: 47 RI: 206 QRS: 18 T: 57 INTERPRETIVE STATEMENTS: Sinus rhythm with fusion complexes ST elevation, consider inferior injury or acute infarct ACUTE [place] Abnormal ECG Compared to ECG 10/26/2024 17:50:29 Fusion complex(es) now present ST (T wave) deviation now present Myocardial infarct finding now present Sinus bradycardia no longer present Electronically Signed On 11-08-24 12:26:01 CDT by Willie Leonard
[2024-11-08] MEDS: JUVEN PACKET PO SCH (19:53)
--- NOTE | 2024-11-08 20:45 | PN ---
Date of Progress Note: 11/08/2024 Subjective: The patient was seen this morning for followup. He was in ICU lying in bed, not in any distress, was on nasal cannula oxygen, sleeping, easily arousable. Nurse in ICU informed me that willis patel used BiPAP for about 4 hours last night. He denies any complaints this morning. Objective: Vital Signs: Reviewed. HEENT: Unremarkable. Lungs: Bilateral good equal air entry with presence of diffuse wheezing in both lung mccartney. Heart: Sounds normal. Abdomen: Soft. Bowel sounds normal. No guarding, rigidity, tenderness, distention. Extremities: No leg edema. Laboratory Data: WBC 5.3, hemoglobin 9.6, platelets 143. Sodium 140, potassium 4.1, chloride 96, bi carb 42, BUN 16, creatinine 0.57, glucose 128. Impression: 1. Chronic respiratory failure, with hypercapnia, with acute exacerbation. 2. Chronic respiratory failure, with hypoxia, with acute exacerbation. 3. Acute exacerbation of chronic obstructive pulmonary disease. 4. Anemia. 5. Chronic anticoagulation therapy. Plan: We will continue current medication, continue Eliquis, continue nebulizer treatment per order. IV Solu-Medrol was ordered this morning. We will continue to follow with Dr. Holt and Social Layla johnson. The patient is stable for transfer out of ICU to regular room and as soon as the room is available, we will be able to transfer him with current orders. FERNANDO/MODL Voice ID: [id number] Report ID: [id number]
[2024-11-09 06:02] LABS: Absolute Lymphocytes (CBC) 0.2 K/uL (0.7-4.9); Absolute Monocytes 0.3 K/uL (0.1-1.3); Absolute Neutrophil 4.1 K/uL (1.8-8.0); Hematocrit 31.2 % (39.6-49.0); Lymphocytes % 4.4 % (15.3-44.8); MCHC 32.2 g/dL (32.0-36.0); MCV 83.9 fL (80-100); MPV 7.9 fL (7.6-11.3); Neutrophils % 88.6 % (41.7-73.7); Platelets 150 thou/uL (152-406); RBC Red Blood Cell Count 3.72 M/uL (4.33-5.43)
[2024-11-09 06:16] LABS: Anion Gap 3.7 mEq/L (5.0-15.0); Potassium 3.7 mEq/L (3.5-5.1)
--- NOTE | 2024-11-09 21:36 | PN ---
Date of Progress Note: 11/09/2024 Subjective: The patient was seen this morning for followup. No new complaints or problems reported by patient. He was lying in bed in ICU as there were no beds available for him to be transferred, so he continues to remain in ICU as an overflow patient. He remains on nasal cannula oxygen. Denies a ny new complaints. Objective: Vital Signs: Reviewed. HEENT: Unremarkable. Lungs: Clear to auscultation except some scattered wheezing in the lower lung. Overall, much better than yesterday. Heart: Sounds normal. Abdomen: Soft. Bowel sounds normal. No guarding, rigidity, tenderness, distention. Extremities: No leg edema. Laboratory Data: WBC 4.7, hemoglobin 10, platelets 150. Sodium 138, potassium 3.7, chloride 103, bi carb 35, BUN 25, creatinine 0.79, glucose 168. Impression: 1. Acute exacerbation of chronic obstructive pulmonary disease. 2. Chronic respiratory failure with hypoxia, with acute exacerbation. 3. Anemia. 4. Chronic respiratory failure with hypercapnia with acute exacerbation. Plan: We will continue oxygen. Continue steroid nebulizer treatment and continue to follow up with Dr. Holt. Physical Therapy to work with the patient and I will see him tomorrow for followup. FERNANDO/MODL Voice ID: [id number] Report ID: [id number]
[2024-11-10 06:05] LABS: Absolute Lymphocytes (CBC) 0.2 K/uL (0.7-4.9); Absolute Monocytes 0.3 K/uL (0.1-1.3); Absolute Neutrophil 5.2 K/uL (1.8-8.0); Basophils % 0.1 % (0-1.3); Hematocrit 32.3 % (39.6-49.0); Hemoglobin 10.3 g/dL (13.6-17.9); Lymphocytes % 4.2 % (15.3-44.8); MCH 27.1 pg (27.0-35.0); MCV 84.6 fL (80-100); MPV 7.6 fL (7.6-11.3); Neutrophils % 90.7 % (41.7-73.7); Platelets 181 thou/uL (152-406); RBC Red Blood Cell Count 3.82 M/uL (4.33-5.43); Red Cell Distribution Width 19.4 % (12.1-15.2)
--- NOTE | 2024-11-10 09:07 | PN ---
Date of Progress Note: 11/10/2024 Subjective: The patient was seen this morning for followup. No new complaints or problems reported by him. He was still in ICU and there were no beds available on the medical floor. Objective: Vital Signs: Reviewed. HEENT: Unremarkable. Lungs: Clear to auscultation except minimal scattered wheezing in the lung bases, overall much tiesha r than before. Heart: Sounds normal. Abdomen: Soft. Bowel sounds normal. No guarding, rigidity, tenderness, distention. Extremities: No leg edema. Laboratory Data: WBC 5.8, hemoglobin 10.3, platelets 181. Sodium 138, potassium 4, chloride 104, bi carb 34, BUN 29, creatinine 0.79, glucose 167. Impression: 1. Acute exacerbation of COPD. 2. Chronic respiratory failure with hypoxia, with acute exacerbation. 3. Chronic respiratory failure with hypercapnia, with acute exacerbation. 4. Anemia, unspecified. Plan: We will go ahead and continue oxygen, steroids, and nebulizer treatment per order. Ambulation was encouraged. Possible discharge to go home tomorrow depending on his condition. We will continu e to follow with Dr. Holt. FERNANDO/MODL Voice ID: [id number] Report ID: [id number]
[2024-11-11 05:53] VITALS: BMI 25.6
--- NOTE | 2024-11-11 10:48 | P.PN ---
Subjective Date of Service: 11/11/24 Chief Complaint: Respiratory failure Subjective: Improving (Patient is improving week cough of sputum) Review of Systems General: Weakness Respiratory: Shortness of Breath Physical Examination - Vital Signs Temperature: 97.6 F Blood Pressure: 115/56 Pulse: 69 Respirations: 18 Pulse Ox (%): 96 - Physical Exam General: Alert, Oriented x3 Respiratory: Clear to auscultation bilaterally, Diminished Cardiovascular: No edema, Regular rate/rhythm, Normal S1 S2 Assessment And Plan - Current Problems (Diagnosis) (1) Chronic respiratory failure Current Visit: Yes Status: Acute Plan: Patient is 69 years of age admitted with acute on chronic respiratory failure currently he is stabilized chronic hypercapnia is willing to try noninvasive ventilator again that once before and and was returned due to noncompliance will benefit from a noninvasive ventilator to prevent hospital readmission labs chemistries all reviewed no change in his home medications he is on optimal therapy gnosis is poor recurrent admissions to the hospital vital signs oxygenation satisfactory Qualifiers: Respiratory failure complication: hypoxia and hypercapnia Qualified Code(s): J96.11 - Chronic respiratory failure with hypoxia; J96.12 - Chronic respiratory failure with hypercapnia
[2024-11-11 13:23] VITALS: BP 121/58; TEMP 98.1
[2024-11-11 14:27] VITALS: O2SAT 93
--- NOTE | 2024-11-11 19:47 | DS ---
Date of Discharge: 11/11/2024 Disposition: Discharged to go home. Physical Examination: HEENT: Unremarkable. Lungs: Bilateral good equal entry. Clear to auscultation. No wheezing. No rales. Heart: Sounds normal. Abdomen: Soft. Bowel sounds normal. No guarding, rigidity, tenderness, distention. Extremities: No leg edema. Laboratory Data: Upon admission, WBC 9, hemoglobin 10.4, platelets 161. Yesterday, WBC 5.8, hemoglo bin 10.3, platelets 181. For chemistry upon admission, sodium 134, potassium 4, chloride 93, bicarb 41, BUN 13, creatinine 0.68, glucose 106. Liver function tests unremarkable. Troponin 6. ProBNP 11 71. Yesterday, sodium 138, potassium 4, chloride 104, bicarb 34, BUN 29, creatinine 0.79, glucose 16 7. His arterial blood gas upon admission, pH 7.36, pCO2 81, pO2 72.9, oxygen saturation 93.7% on 40% FiO2. Discharge Medications And Instructions: 1. Continue all prior home medication. 2. Follow up at my office next week. 3. Follow up with Dr. Holt in 2 to 3 weeks. 4. The patient to use oxygen 2 to 3 L/minute per nasal cannula all the time and use his noninvasive v entilator which is BiPAP at nighttime and Dr. Holt has started the process of making that arrange ments and the patient is clear for discharge from his point of view while waiting on this BiPAP arran gements to be completed as outpatient. Final Diagnoses: 1. Chronic respiratory failure with hypoxia, with acute exacerbation. 2. Chronic respiratory failure with hypercapnia, with acute exacerbation. 3. Acute exacerbation of COPD. 4. Anemia, unspecified. 5. Type 2 diabetes mellitus. 6. Hypertension. 7. Hyperlipidemia. 8. Chronic diastolic heart failure. 9. Chronic anticoagulation therapy. 10. Benign prostatic hypertrophy with lower urinary tract symptoms. 11. Seizure disorder. 12. Chronic kidney disease stage 3A. Hospital Course: Mr. Mckeon is a 69-year-old male patient with severe COPD, who has had multiple hos pital admissions for respiratory problems related to his underlying COPD and respiratory failure, cam e into emergency room with cough, congestion, shortness of breath, and he was admitted to the [facility]. Please see dictated H and P for more information. After the patient was evaluated in the emergen cy room, he was admitted to the hospital. Initially, he did require BiPAP use along with oxygen and he was admitted to intensive care unit since he was requiring BiPAP. Dr. Holt from Pulmonary was consulted and once the patient's condition improved, we stopped using BiPAP during day time and we c ontinue to use BiPAP at nighttime. With his history of severe COPD and chronic respiratory failure w ith hypoxia and hypercapnia, he will benefit from use of BiPAP as a maintenance therapy. Upon furthe r questioning, he did inform me that he had BiPAP for home use, but he decided not to use it anymore. When he returned this BiPAP machine, this was sometime about a year ago or so, and I did explain it to him importance of using BiPAP. He is agreeable to use it and Dr. Holt has initiated the proc ess of making arrangements and as per my discussion with him, he informed me that the patient can go home today while waiting on the BiPAP to be arranged as outpatient. Overall, the patient's condition has improved. He is back to his baseline again and he informed me that his portable oxygen concentr ator, [employer] was not working and I did talk to Social Service and they have contacted [employer] to help take care of that problem as well. Total time spent in 40 minutes. FERNANDO/MODL Voice ID: [id number] Report ID: [id number]
== END 2024-11-11 14:44 | disposition home or self-care (01) | DRG 189 ==
LOC: ER 10:31 → ERHOLD 17:05 → 3RD-ICU 17:57 → 2ND 11-10 13:19
PROVIDERS: ADMIT Internal Medicine; ATTEND Internal Medicine
PROC: 4A033R1 Measurement of Arterial Saturation, Peripheral, Percutaneous Approach (ICD-10-PCS; principal; 2024-11-07)
PROC: 5A09457 Assistance with Respiratory Ventilation, 24-96 Consecutive Hours, Continuous Positive Airway Pressure (ICD-10-PCS; 2024-11-07)
DX: J96.22 Acute and chronic respiratory failure with hypercapnia (principal); I50.32 Chronic diastolic (congestive) heart failure; I13.0 Hypertensive heart and chronic kidney disease with heart failure and stage 1 through stage 4 chronic kidney disease, or unspecified chronic kidney disease; I48.20 Chronic atrial fibrillation, unspecified; J44.1 Chronic obstructive pulmonary disease with (acute) exacerbation; J96.21 Acute and chronic respiratory failure with hypoxia; N18.31 Chronic kidney disease, stage 3a; E11.22 Type 2 diabetes mellitus with diabetic chronic kidney disease; D63.1 Anemia in chronic kidney disease; E78.5 Hyperlipidemia, unspecified; N40.1 Benign prostatic hyperplasia with lower urinary tract symptoms; G40.909 Epilepsy, unspecified, not intractable, without status epilepticus; F17.210 Nicotine dependence, cigarettes, uncomplicated; Z23 Encounter for immunization; Z99.81 Dependence on supplemental oxygen; Z79.01 Long term (current) use of anticoagulants; Z79.52 Long term (current) use of systemic steroids; Z79.899 Other long term (current) drug therapy
CPT/HCPCS: 36415; 36600; 71045; 80048; 80076; 82805; 83735; 83880; 84484; 85025; 85610; 85730; 87070; 87205; 90656; 93005; 94660; 94668; 97116; 97161; 97530; 99285; J2919; J3535; J7050; J7512; J7613; J7644

== ENCOUNTER 2024-11-29 16:26 | Observation (INO) | payer OTHER, BC ==
[2024-11-29] MEDS ORDERED: IPRATROPIUM BROM 0.5MG/2.5ML ONE (18:39)
[2024-11-29] MEDS ORDERED: METHYLPREDNISOLONE 125 MG INJ ONE (18:39)
[2024-11-29] MEDS ORDERED: ALBUTEROL 2.5 MG/3 ML NEB SOL ONE (18:39)
[2024-11-29 18:53] LABS: Absolute Lymphocytes (CBC) 0.9 K/uL (0.7-4.9); Absolute Monocytes 0.5 K/uL (0.1-1.3); Absolute Neutrophil 3.3 K/uL (1.8-8.0); Basophils % 0.5 % (0-1.3); Eosinophils % 0.5 % (0-4.4); Hematocrit 27.8 % (39.6-49.0); Hemoglobin 9.3 g/dL (13.6-17.9); Lymphocytes % 19.6 % (15.3-44.8); MCH 27.1 pg (27.0-35.0); MCHC 33.5 g/dL (32.0-36.0); MPV 7.3 fL (7.6-11.3); Monocytes % 10.1 % (3.3-12.3); Neutrophils % 69.3 % (41.7-73.7); Nucleated Red Blood Cells % 0.2 % (0-0); Platelets 195 thou/uL (152-406); RBC Red Blood Cell Count 3.43 M/uL (4.33-5.43); Red Cell Distribution Width 17.4 % (12.1-15.2)
[2024-11-29 19:08] LABS: Anion Gap 5.2 mEq/L (5.0-15.0); Magnesium 1.7 mg/dL (1.6-2.4); Potassium 3.2 mEq/L (3.5-5.1); Troponin High Sensitivity 7.3 pg/mL (<58.9)
--- NOTE | 2024-11-29 19:11 | RAD REPORT ---
EXAMINATION: ONE VIEW CHEST XR CLINICAL INDICATION: Male, 69 years old.,DYSPNEA TECHNIQUE: Frontal chest projection is submitted. Examination is limited by patient positioning and t echnique. COMPARISON: 11/07/2024 FINDINGS: The lungs are well inflated and clear. No pneumothorax or sizable effusion. The heart is normal in s ize. Mediastinal contours are unremarkable. IMPRESSION: No acute intrathoracic abnormalities.
--- NOTE | 2024-11-29 20:13 | EDPHYS ---
Physician Documentation [facility] Name: Randolph Mckeon Age: 69 yrs Sex: Male : 1955 Arrival Date: 11/29/2024 Time: 16:26 Bed 4 Private MD: ED Physician Song Herrera HPI: 11/29 22:14 This 69 yrs old Male presents to ER via EMS with complaints of Breathing Difficulty. ms3 22:14 69-year-old male with past medical history of atrial fibrillation, congestive heart ms3 failure, chronic obstructive lung disease, hypertension, pneumonia presents to the emergency department for shortness of breath. Patient states he is experienced shortness of breath for 3 days. Patient denies pain. Patient denies any nausea or vomiting. Patient endorses diarrhea. Historical: - Allergies: 16:42 No Known Allergies; jl7 - PMHx: 16:42 Atrial fibrillation; CHF; Chronic obstructive lung disease; COPD; Hypertension; jl7 Pneumonia; - PSHx: 16:42 cyst removal on lower left limb; hernia; jl7 - Immunization history:: Adult Immunizations unknown. - Infectious Disease History:: Denies. - Social history:: Smoking status: Patient reports the use of cigarette tobacco products. ROS: 22:14 Constitutional: Negative for fever, and chills. Cardiovascular: Negative for chest ms3 pain, and palpitations. 22:14 MS/Extremity: Negative for injury and deformity, Skin: Negative for injury, rash, and discoloration, 22:14 Respiratory: Positive for shortness of breath, Exam: 22:14 Constitutional: This is a well developed, well nourished patient who is awake, alert, ms3 and in no acute distress. 22:14 Cardiovascular: Regular rate and rhythm with a normal S1 and S2. No gallops, murmurs, or rubs. Normal PMI, no JVD. No pulse deficits. 22:14 Cardiovascular: Rate: 22:14 ECG was reviewed by the Attending Physician. 22:14 Respiratory: the patient does not display signs of respiratory distress, Respirations: normal, Breath sounds: wheezing: expiratory Vital Signs: 16:38 BP 97 / 67; Pulse 79; Resp 19; Temp 98.4; Pulse Ox 98% on 2 lpm NC; Weight 83.01 kg; jl7 Height 5 ft. 11 in. ; Pain 0/10; 18:15 BP 113 / 74; Pulse 80; Resp 20; Pulse Ox 100% on 2 lpm NC; db 19:50 BP 128 / 71; Pulse 77; Resp 23; Pulse Ox 96% on 2 lpm NC; al5 21:30 BP 122 / 60; Pulse 82; Resp 21; Pulse Ox 94% on 2 lpm NC; al5 16:38 Body Mass Index 25.52 (83.01 kg, 180.34 cm) jl7 16:38 Pain Scale: Adult jl7 MDM: 16:43 Medical Screening Exam initiated ms3 22:16 Differential diagnosis: CHF exacerbation, Chronic Obstructive Pulmonary Disease ms3 pulmonary edema. Data reviewed: vital signs, nurses notes, lab test result(s), EKG, radiologic studies, and as a result, I will admit patient. Consideration of Admission/Observation Patient was admitted/placed on observation. Management of patient was discussed with the following: Hospitalist: Dr. Fernandez. I considered the following discharge prescriptions or medication management in the emergency department Medications were administered in the Emergency Department. See MAR. Independent interpretation of the following test(s) in the Emergency Department EKG: See my EKG interpretation above. Historians other than the Patient: EMS: . Counseling: I had a detailed discussion with the patient and/or guardian regarding the historical points, exam findings, and any diagnostic results supporting the discharge/admit diagnosis, lab results, radiology results, the need for further work-up and treatment in the hospital. ED course: Case discussed with Dr. Fernandez and he would like patient placed in observation. All questions were answered. Discussed necessity for observation with patient and he understands and agrees with plan. 11/29 16:44 Order name: Basic Metabolic Panel; Complete Time: 19:13 ms3 11/29 16:44 Order name: CBC with Diff; Complete Time: 19:13 ms3 11/29 16:44 Order name: Magnesium; Complete Time: 19:13 ms3 11/29 16:44 Order name: NT PRO-BNP; Complete Time: 19:13 ms3 11/29 16:44 Order name: Troponin HS; Complete Time: 19:13 ms3 11/29 16:44 Order name: XRAY Chest (1 view); Complete Time: 19:13 ms3 11/29 16:44 Order name: EKG; Complete Time: 16:44 ms3 11/29 16:44 Order name: Cardiac monitoring; Complete Time: 18:28 ms3 11/29 16:44 Order name: EKG - Nurse/Tech; Complete Time: 18:28 ms3 11/29 16:44 Order name: IV Saline Lock; Complete Time: 18:28 ms3 11/29 16:44 Order name: Labs collected and sent; Complete Time: 18:28 ms3 11/29 16:44 Order name: O2 Per Protocol; Complete Time: 18:28 ms3 11/29 16:44 Order name: O2 Sat Monitoring; Complete Time: 18:28 ms3 EC:14 Rate is 73 beats/min. Rhythm is regular. QRS [place] is Normal. CO interval is normal. QRS ms3 interval is normal. Clinical impression: NSR w/ Non-specific ST/T Changes. Interpreted by me. Reviewed by me. Administered Medications: 18:44 Drug: Albuterol Inhalation 2.5 mg Inhalation every 20 minutes x3 Route: Inhalation; db 18:45 Drug: MethylPrednisoLONE IVP 125 mg IVP once Route: IVP; Site: left forearm; db 19:55 Follow up: Response: No adverse reaction al5 18:45 Drug: Ipratropium Inhalation Aerosol 0.5 mg Inhalation once Route: Inhalation; db 19:55 Follow up: Response: No adverse reaction al5 18:45 Drug: Albuterol Inhalation 2.5 mg Inhalation every 20 minutes x3 Route: Inhalation; db 19:56 Follow up: Response: No adverse reaction al5 18:45 Drug: Albuterol Inhalation 2.5 mg Inhalation every 20 minutes x3 Route: Inhalation; db Disposition Summary: 11/29/24 20:12 Hospitalization Ordered Notes: Hospitalization Status: Observation ms3 Provider: Reji Fernandez ms3 Location: Telemetry/MedSurg (observation) ms3 Condition: Stable ms3 Problem: new ms3 Symptoms: are unchanged ms3 Bed/Room Type: Standard ms3 Room Assignment: 408(11/29/24 20:28) rv1 Diagnosis - COPD/ Chronic obstructive pulmonary disease with (acute) exacerbation ms3 - Shortness of breath ms3 Forms: - Medication Reconciliation Form ms3 - SBAR form ms3 - Leadership Thank You Letter ms3 Signatures: Dispatcher [employer] Анна Lacey RN RN jl7 Song Herrera DO DO ms3 June Robison, RN RN db Kelsi Ballard rv1 Susan Riley RN al5 Corrections: (The following items were deleted from the chart) 16:44 16:44 BASIC METABOLIC PANEL+C.LAB.BRZ ordered. EDMS EDMS 16:44 16:44 CBC+H.LAB.BRZ ordered. EDMS EDMS 16:44 16:44 MAGNESIUM+C.LAB.BRZ ordered. EDMS EDMS 16:44 16:44 PROBNP+C.LAB.BRZ ordered. EDMS EDMS 16:44 16:44 Troponin High Sensitivity+C.LAB.BRZ ordered. EDMS EDMS 20:28 20:12 ms3 rv1
--- NOTE | 2024-11-29 20:13 | ER ---
Nurse's Notes [facility] Name: Randolph Mckeon Age: 69 yrs Sex: Male : 1955 Arrival Date: 11/29/2024 Time: 16:26 Bed 4 Private MD: Diagnosis: COPD/ Chronic obstructive pulmonary disease with (acute) exacerbation;Shortness of breath Presentation: 11/29 16:38 Chief complaint: EMS states: Toned out for difficulty breathing x 3 days. Coronavirus jl7 screen: At this time, the client does not indicate any symptoms associated with coronavirus-19. Ebola Screen: No symptoms or risks identified at this time. Initial Sepsis Screen: Does the patient meet any 2 criteria? No. Patient's initial sepsis screen is negative. Does the patient have a suspected source of infection? No. Patient's initial sepsis screen is negative. Risk Assessment: Do you want to hurt yourself or someone else? Patient reports no desire to harm self or others. Onset of symptoms was November 27, 2024. 16:38 Method Of Arrival: EMS: [facility] jl7 16:38 Acuity: YANNICK 3 jl7 Triage Assessment: 16:42 General: Appears in no apparent distress. uncomfortable, Behavior is calm, cooperative, jl7 appropriate for age. Pain: Denies pain. Respiratory: Reports shortness of breath at rest Onset: The symptoms/episode began/occurred x 3 days, the patient has moderate shortness of breath. Historical: - Allergies: 16:42 No Known Allergies; jl7 - PMHx: 16:42 Atrial fibrillation; CHF; Chronic obstructive lung disease; COPD; Hypertension; jl7 Pneumonia; - PSHx: 16:42 cyst removal on lower left limb; hernia; jl7 - Immunization history:: Adult Immunizations unknown. - Infectious Disease History:: Denies. - Social history:: Smoking status: Patient reports the use of cigarette tobacco products. Screenin:18 [facility] ED Fall Risk Assessment (Adult) History of falling in the last 3 months, db including since admission. 19:51 [facility] ED Fall Risk Assessment (Adult) Confusion or Disorientation No (0 pts) al5 Intoxicated or Sedated No (0 pts) Impaired Gait No (0 pts) Mobility Assist Device Used No (0 pt) Altered Elimination No (0 pt) Score/Fall Risk Level 0 - 2 = Low Risk Oriented to surroundings, Maintained a safe environment, Hourly rounding (assess needs \T\ fall precautionary measures) done. Abuse screen: Denies threats or abuse. Denies injuries from another. Nutritional screening: No deficits noted. Tuberculosis screening: No symptoms or risk factors identified. Assessment: 18:00 Reassessment: Patient appears in no apparent distress at this time. Patient and/or db family updated on plan of care and expected duration. Pain level reassessed. Patient is alert, oriented x 3, equal unlabored respirations, skin warm/dry/pink. General: Appears in no apparent distress. comfortable, Behavior is calm, cooperative. Neuro: Level of Consciousness is awake, alert, obeys commands, Oriented to person, place, time, situation. Cardiovascular: Rhythm is sinus rhythm. Respiratory: Airway is patent Respiratory effort is even, unlabored, 19:50 General: Appears in no apparent distress. comfortable, Behavior is calm, cooperative. al5 Pain: Denies pain. Neuro: Level of Consciousness is awake, alert, obeys commands, Oriented to person, place, time, situation. Cardiovascular: Capillary refill < 3 seconds Patient's skin is warm and dry. Rhythm is sinus rhythm. GI: No signs and/or symptoms were reported involving the gastrointestinal system. : No signs and/or symptoms were reported regarding the genitourinary system. EENT: No signs and/or symptoms were reported regarding the EENT system. Derm: Skin is intact, Skin is pink, warm \T\ dry. normal. Musculoskeletal: No signs and/or symptoms reported regarding the musculoskeletal system. 22:00 Reassessment: Patient appears in no apparent distress at this time. No changes from al5 previously documented assessment. Patient and/or family updated on plan of care and expected duration. Pain level reassessed. Patient is alert, oriented x 3, equal unlabored respirations, skin warm/dry/pink. Vital Signs: 16:38 BP 97 / 67; Pulse 79; Resp 19; Temp 98.4; Pulse Ox 98% on 2 lpm NC; Weight 83.01 kg; jl7 Height 5 ft. 11 in. ; Pain 0/10; 18:15 BP 113 / 74; Pulse 80; Resp 20; Pulse Ox 100% on 2 lpm NC; db 19:50 BP 128 / 71; Pulse 77; Resp 23; Pulse Ox 96% on 2 lpm NC; al5 21:30 BP 122 / 60; Pulse 82; Resp 21; Pulse Ox 94% on 2 lpm NC; al5 16:38 Body Mass Index 25.52 (83.01 kg, 180.34 cm) jl7 16:38 Pain Scale: Adult jl7 ED Course: 16:32 Patient arrived in ED. jl7 16:42 Triage completed. jl7 16:42 Arm band placed on right wrist. jl7 16:43 Song Herrera DO is Attending Physician. ms3 17:23 XRAY Chest (1 view) In Process Unspecified. EDMS 18:30 EKG done, by ED staff, reviewed by Song Herrera DO. jl7 18:33 June Robison, RN is Primary Nurse. db 18:36 Basic Metabolic Panel Sent. cc6 18:36 CBC with Diff Sent. cc6 18:36 Magnesium Sent. cc6 18:36 NT PRO-BNP Sent. cc6 18:36 Troponin HS Sent. cc6 18:37 Inserted saline lock: 22 gauge in left wrist, using aseptic technique. Blood collected. cc6 Flushed with 10 mL NS. 19:04 Primary Nurse role handed off by June Robison, RN rv1 19:50 Patient has correct armband on for positive identification. Bed in low position. Call al5 light in reach. Side rails up X2. 19:50 Provided Education on: admission. al5 19:51 No provider procedures requiring assistance completed. al5 20:11 Reji Fernandez MD is Hospitalizing Provider. ms3 21:30 Susan Riley, SAMEER is Primary Nurse. al5 22:18 Patient admitted, IV remains in place. al5 Administered Medications: 18:44 Drug: Albuterol Inhalation 2.5 mg Inhalation every 20 minutes x3 Route: Inhalation; db 18:45 Drug: MethylPrednisoLONE IVP 125 mg IVP once Route: IVP; Site: left forearm; db 19:55 Follow up: Response: No adverse reaction al5 18:45 Drug: Ipratropium Inhalation Aerosol 0.5 mg Inhalation once Route: Inhalation; db 19:55 Follow up: Response: No adverse reaction al5 18:45 Drug: Albuterol Inhalation 2.5 mg Inhalation every 20 minutes x3 Route: Inhalation; db 19:56 Follow up: Response: No adverse reaction al5 18:45 Drug: Albuterol Inhalation 2.5 mg Inhalation every 20 minutes x3 Route: Inhalation; db Medication: 19:51 VIS not applicable for this client. al5 Outcome: 20:12 Decision to Hospitalize by Provider. ms3 22:20 Admitted to Med/surg accompanied by tech, via stretcher, room 408, with chart, al5 22:20 Condition: stable 22:20 Instructed on the need for admit, 22:23 Patient left the ED. vc1 Signatures: Dispatcher [employer] EDMS Анна Lamar, RN RN jl7 Song Herrera, DO DO ms3 Nataly Douglas RN RN vc1 June Robison RN RN db Kelsi Ballard rv1 Susan Riley RN RN al5 Amalia Stanley cc6
[2024-11-29] MEDS: ALBUTEROL 2.5 MG/3 ML NEB SOL NEB SCH (21:00)
[2024-11-29] MEDS: IPRATROPIUM BROM 0.5MG/2.5ML NEB SCH (21:00)
[2024-11-29 22:34] VITALS: BMI 24.1
[2024-11-30] MEDS: METHYLPREDNISOLONE 40 MG INJ IV SCH (05:47)
--- NOTE | 2024-11-30 06:50 | HP ---
Date of Admission: 11/29/2024 Chief Complaint: Cough, congestion, shortness of breath. History Of Present Illness: This is a year-old pleasant male patient who has severe COPD and he is oxygen dependent, also has chronic respiratory failure with hypoxia and hypercapnia, uses h is home oxygen and BiPAP/noninvasive ventilator therapy at home as recommended during his recent hosp [facility] admission. Today, home health nurse visited him and was concerned about his lung sounds and zeyad g exam, and contacted my office and it was recommended for the patient to come to emergency room. Af ter he was evaluated, I even saw him in emergency room and decision was made to admit him to the hosp [facility] for observation. The patient has chronic problem with cough, congestion, shortness of breath, b ut that has not significantly changed any as he describes. No fever. Physical Examination: VITAL SIGNS: Height 5 feet inches, weight pounds, temperature , puls e , respiratory rate , blood pressure , oxygen saturation . General: Awake, alert, oriented, not in distress. HEENT: Head atraumatic, normocephalic. Conjunctivae nonerythematous. Sclerae white. Mouth, no thr ush or edema noted. Ears/Nose, no mass, lesion, discharge noted. Neck: Supple. No JVD, lymph nodes, bruit, thyromegaly noted. Lungs: Presence of bilateral good equal air entry. Minimal scattered wheezing. Not using any acces lor muscles of respiration. Heart: Normal heart sounds, no murmur or gallop. Abdomen: Soft, bowel sounds normal. No guarding, rigidity, tenderness, mass, hepatosplenomegaly, dis tention, or bruit noted. Extremities: No leg edema. No calf tenderness. Skin: No rash, ulcer, cellulitis. Lymphatics: No lymph node enlargement in neck, supraclavicular, infraclavicular region. Neuro: No focal neurological deficit. Chest: Unremarkable. External Genitalia: Deferred. Rectal: Deferred. Laboratory Data: Chest x-ray: No acute cardiopulmonary changes. WBC 4.8, hemoglobin 9.3, platelets 195. Sodium 135, potassium 3.2, chloride 94, bicarb 39, BUN 6, creatinine 0.62, glucose 102. Tropo [place] 7.3. Magnesium 1.7. ProBNP 424. Impression: 1. Acute exacerbation of chronic obstructive pulmonary disease. 2. Hypokalemia. 3. Anemia, unspecified. 4. Chronic respiratory failure with hypoxia. 5. Chronic respiratory failure with hypercapnia. 6. Type 2 diabetes mellitus. 7. Hypertension. 8. Hyperlipidemia. 9. Chronic diastolic heart failure. 10. Chronic anticoagulation therapy. 11. Benign prostatic hypertrophy with lower urinary tract symptoms. 12. Seizure disorder. Plan: Admit the patient to hospital for further evaluation and management of this problem. We will go ahead and admit him to hospital for observation and continue oxygen therapy. We will start him on IV steroid. No need for any antibiotics at this time. Nebulizer treatment with albuterol and Atrov ent will be ordered. For hypokalemia, replace electrolyte per protocol. For anemia, no need for fur ther intervention. Diabetes will not require any further intervention except sliding scale with insu erich with blood sugar monitoring. He is on chronic anticoagulation therapy, which we will continue th at per order. Chronic diastolic heart failure problem is stable, no need for further intervention. Hypertension will be managed with monitoring of blood pressure and use of medication as it becomes ne cessary. Details and plan of treatment discussed with the patient. I will see him tomorrow for foll owup with possible discharge tomorrow after I evaluate him tomorrow. Total time spent 55 minutes, including communication with the emergency room physician, review of [facility] visit record, performing today's evaluation and management, reviewing last hospital admission record. FERNANDO/MODL Voice ID: [id number]
[2024-11-30 08:10] VITALS: O2SAT 96
[2024-11-30 09:30] VITALS: BP 121/62; TEMP 97.8
[2024-11-30 10:02] LABS: C.diff Antigen/Toxin Ag neg : Tox neg (NEG : NEG); CDIFF INTERNAL NEG CONTROL White Background (WHITE BKGD); STOOL CONSISTENCY Liquid/Semi-Solid
--- NOTE | 2024-11-30 11:46 | EKG ---
Test Date: 2024-11-29 Test Time: 18:25:07 [employer] Program Chair: LEWIS MEASUREMENT RESULTS: Intervals: Rate: 73 MS: 214 QRSD: 96 QT: 396 QTc: 436 [place]: P: 61 MS: 214 QRS: 41 T: 59 INTERPRETIVE STATEMENTS: Sinus rhythm with 1st degree AV block Incomplete right bundle branch block Borderline ECG Compared to ECG 11/07/2024 10:44:50 First degree AV block now present Incomplete right bundle-branch block now present Electronically Signed On 11-30-24 11:46:02 CDT by Willie Leonard
== END 2024-11-30 11:00 | disposition home or self-care (01) ==
LOC: ER 16:26 → ERHOLD 20:13 → 4TH 20:53
PROVIDERS: ADMIT Internal Medicine; ATTEND Internal Medicine
DX: J44.1 Chronic obstructive pulmonary disease with (acute) exacerbation (principal); J96.12 Chronic respiratory failure with hypercapnia; J96.11 Chronic respiratory failure with hypoxia; D64.9 Anemia, unspecified; E11.9 Type 2 diabetes mellitus without complications; I10 Essential (primary) hypertension; E78.5 Hyperlipidemia, unspecified; I50.32 Chronic diastolic (congestive) heart failure; Z79.01 Long term (current) use of anticoagulants; N40.1 Benign prostatic hyperplasia with lower urinary tract symptoms; R56.9 Unspecified convulsions; E87.6 Hypokalemia; I48.11 Longstanding persistent atrial fibrillation; F17.210 Nicotine dependence, cigarettes, uncomplicated
CPT/HCPCS: 36415; 71045; 80048; 83735; 83880; 84484; 85025; 87324; 93005; 94640; 96374; 99285; G0378; J2919; J7613; J7644